=== PATIENT | male | born 1935 | race Caucasian/White ===

== ENCOUNTER 2022-12-05 11:14 | Outpatient (RCR) | payer MEDICARE, SELFPAY | END 2023-01-15 13:57 | disposition home or self-care (01) | LOC: PT 11:14 | PROVIDERS: PCP Internal Medicine; Visit Provider Anesthesiology Pain Medicine | DX: M48.062 Spinal stenosis, lumbar region with neurogenic claudication (principal) | CPT/HCPCS: 97110 ==

== ENCOUNTER 2023-01-17 11:54 | Outpatient (OUT) | payer MEDICARE, SELFPAY ==
--- NOTE | 2023-01-17 12:23 | PM.CN ---
Consult Note: HPI Data of Consult Patient: known to practice within the last 3 years Consult date: 01/17/23 Requesting Physician: JARED FLORES NP Primary Care Provider: Shaikh Lexi MD Consult Narrative Narrative: Patient is here for f/u of back pain. narcotic was switched from norco to tylenol [address] Blank 01/08/23. He states it is wearing off before next dose is due. Can increase dosing to QID. He was scheduled for LESI L3 4 at last visit. Facility was not informed he was on Plavix and unable to hold Plavix, so when med was discovered, procedure was cancelled. He has had significant relief of pain with LESI in the past. Pain today is lower back worse with activity and standing . He had lumbar RFA bilat L2,3,4,5 10/30/21 with significant relief of pain and increased fx. No radicular sx. No new sensorimotor or bowel or bladder issues. No adverse medication SE. Medication regimen assists patient with being better able to complete ADLs. He was doing PT at last visit. cc:: CC: JARED FLORES NP Review of Systems ROS Status of ROS 10 or more systems reviewed and unremarkable except as noted in history and below Musculoskeletal Reports: back pain Meds Home Medications and Allergies Home Medications Medication Instructions Recorded Confirmed Type acetaminophen 325 mg capsule 325 mg PO Q6H PRN pain 12/27/22 History albuterol sulfate 90 mcg/actuation 1 inh inhalation Q4H PRN shortness 12/27/22 History aerosol inhaler (ProAir HFA) of breath or wheezing allopurinol 300 mg tablet 300 mg PO .QD 12/27/22 History cholecalciferol (vitamin D3) 25 25 mcg PO DAILY 12/27/22 History mcg (1,000 unit) capsule (Vitamin D3) hydrocodone 5 mg-acetaminophen 325 tab PO QID PRN pain 12/27/22 History mg tablet levothyroxine 50 mcg tablet 50 mcg PO .QD 12/27/22 History nitroglycerin 0.4 mg sublingual 0.4 mg sublingual Q5M PRN chest 12/27/22 History tablet (Nitrostat) pain potassium chloride 20 mEq 10 meq PO DAILY 12/27/22 01/10/23 History tablet,extended release (K-Tab) witch letitia-glycerin (hamamel) 1 pad topical DAILY PRN hemorrhoids 12/27/22 History topical pads (Hemorrhoidal Medicated topical pads) Lactobacillus rhamnosus GG 10 1 cap PO DAILY 01/09/23 01/09/23 History billion cell capsule (Culturelle) aspirin 81 mg capsule 81 mg PO DAILY 01/09/23 01/09/23 History calcium carbonate 500 mg calcium 500 mg PO TID 01/09/23 01/09/23 History (1,250 mg) tablet clopidogrel 75 mg tablet (Plavix) 75 mg PO DAILY 01/09/23 01/09/23 History diltiazem HCl 180 mg 180 mg PO DAILY 01/09/23 01/09/23 History capsule,extended release 24 hr donepezil 10 mg tablet (Aricept) 10 mg PO DAILY 01/09/23 01/09/23 History dorzolamide-timolol (PF) 2 %-0.5 % 1 drp ophthalmic (eye) BID 01/09/23 01/09/23 History eye drops in a dropperette famotidine 20 mg tablet 20 mg PO DAILY 01/09/23 01/09/23 History ferrous sulfate 325 mg (65 mg 325 mg PO TID 01/09/23 01/09/23 History iron) tablet fluticasone propionate 50 1 spray intranasal DAILY PRN nasal 01/09/23 01/09/23 History mcg/actuation nasal congestion spray,suspension (Flonase Allergy Relief) furosemide 20 mg tablet 20 mg PO QAM 01/09/23 01/09/23 History hydrocortisone 2.5 % topical cream 1 applic topical TID PRN itching 01/09/23 01/09/23 History losartan 100 mg tablet 100 mg PO DAILY 01/09/23 01/09/23 History magnesium oxide,aspartate,citr mg PO 01/09/23 History metoprolol tartrate 25 mg tablet 25 mg PO BID 01/09/23 01/09/23 History bvsroqcc-xcq-yvszx acid 300 1 tab PO DAILY 01/09/23 01/09/23 History mcg-lycopene 600 mcg-lutein 300 mcg tablet (Centrum Silver Men) pregabalin 75 mg capsule (Lyrica) 75 mg PO TID 01/09/23 01/09/23 History psyllium husk 0.4 gram capsule 0.4 g PO DAILY 01/09/23 01/09/23 History (Metamucil) tamsulosin 0.4 mg capsule (Flomax) 0.4 mg PO DAILY 01/09/23 01/09/23 History amlodipine 5 mg tablet 5 mg PO DAILY 01/10/23 01/10/23 History atorvastatin 20 mg tablet 20 mg PO DAILY 01/10/23 01/10/23 History baclofen 10 mg tablet 10 mg PO TID PRN muscle spasm 01/10/23 01/10/23 History cholecalciferol (vitamin D3) 25 1,000 unit PO DAILY 01/10/23 01/10/23 History mcg (1,000 unit) capsule (Vitamin D3) ondansetron HCl 4 mg tablet 4 mg PO TID 01/10/23 01/10/23 History Allergies Allergy/AdvReac Type Severity Reaction Status Date / Time tizanidine [From Zanaflex] Allergy Unknown Verified 12/27/22 09:08 acetaminophen [From Percocet] AdvReac Mild Vomiting Verified 12/27/22 09:10 cyclobenzaprine AdvReac Mild Hallucinati Verified 12/27/22 09:10 [From Flexeril] ng oxycodone [From Percocet] AdvReac Mild Vomiting Verified 12/27/22 09:10 tramadol AdvReac Mild Vomiting Verified 12/27/22 09:10 Exam Constitutional Documenting provider has reviewed patient's vital signs: yes Common normals: no apparent distress, average body habitus, oriented x3, alert and well nourished General appearance: cooperative, comfortable, well developed and frail appearing Other: uses scooter HENMT Common normals: normocephalic and moist oral mucous membranes Respiratory Common normals: normal respiratory effort, no retractions and no use of accessory muscles Effort & inspection: able to speak in complete sentences and symmetric chest movement Back & Pelvis Lumbar spine/lower back: ROM limited, pain with ROM, lumbar spinal tenderness, paraspinal muscle tenderness, paraspinal muscle spasm and straight leg raise negative bilaterally Other: muscle strength 4 /5 bilat LE with intact sensation positive facet loading bilat Extremity Common normals: normal to inspection and full ROM Assessment and Plan Assessment and Plan (1) Lumbar spondylosis: (2) Lumbar stenosis: (3) Muscle spasm: Plan schedule bilat thermal lumbar RFA L2 L3 L4 l5 under fluoroscopy increase t#3 dosing to 4 times a day baclofen refill extend PT
== END 2023-01-17 11:55 | disposition home or self-care (01) ==
LOC: PM 12:19
PROVIDERS: PCP Internal Medicine; Visit Provider Nurse Practitioner
DX: M47.816 Spondylosis without myelopathy or radiculopathy, lumbar region (principal); M48.061 Spinal stenosis, lumbar region without neurogenic claudication; M62.838 Other muscle spasm
CPT/HCPCS: G0463

== ENCOUNTER 2023-02-03 08:43 | Day surgery (SDC) | payer MEDICARE, SELFPAY ==
[2023-02-03 09:27] VITALS: BP 136/86; PULSE 68; RESP 16; TEMP 36.4; O2SAT 97
[2023-02-03 09:40] LABS: Glucometer 214 mg/dL (74-106)
[2023-02-03] MEDS: TRIAMCINOLONE ACETONIDE 40 MG/ML VIAL 80 MG INJ (10:08)
[2023-02-03] MEDS: LIDOCAINE HCL 2% PF 40 MG/2 ML VIAL INJ (10:09)
[2023-02-03] MEDS: BUPIVACAINE HCL 0.25% PF 25 MG/10 ML VIAL 5 ML INJ (10:09)
[2023-02-03 10:16] VITALS: BP 120/81; BP 123/77; PULSE 66; PULSE 68; RESP 18; O2SAT 94; O2SAT 95
--- NOTE | 2023-02-03 10:21 | P.ON_ITS ---
Date of procedure: 02/03/23 Pre-op diagnosis: Lumbosacral spondylosis Post-op diagnosis: same Procedure: Procedure: L2-3, L3-4 radiofrequency ablation Medications: Bupivacaine 0.25% 6cc, kenalog 80mg, lidocaine 1% 4cc The patient was seen and examined in the preoperative holding area.? The site was marked.? Written informed consent was obtained and placed on the chart.? The patient was brought to the medical procedure unit and placed in the prone position.? A timeout was completed verifying correct patient, procedure, positioning, and special requirements.? The skin overlying the target points, the designated medial branch, were prepped and draped in the usual sterile fa shion.? The target point was achieved with a 20-gauge 15 cm with a 10 mm curved active tip radiofrequency cannula under direct fluoroscopic visualization.? The needle was inserted at level L2 on the right side. Needle tip position was confirmed with lateral fluoroscopic position.? Motor stimulation was carried out at 2 Hz up to 5 volts with the absence of extremity activity.? This was repeated at level L3, 4 on right side.?? Sensory stimulation was carried out.? Concordant pain was realized at the above- mentioned sites.? Then radiofrequency lesioning was carried out times 90 seconds at 80 degrees times 2 lesions at each level.? The radiofrequency probe was removed prior to cannula removal.? The above-mentioned injectate was placed in 1 mL increments.? The needle was removed. The same procedure, with the same steps, was then completed on the left side at the same levels. Insertion sites were covered.? The patient was taken to the postoperative recovery area and monitored for an appropriate length of time before being found suitable for discharge in the company of a responsible adult. Anesthesia: None Surgeon: Mallorie Joy Pathology: none sent Condition: stable Disposition: no change
== END 2023-02-03 10:31 | disposition home or self-care (01) ==
PROVIDERS: PCP Internal Medicine; Visit Provider Anesthesiology
DX: M47.817 Spondylosis without myelopathy or radiculopathy, lumbosacral region (principal)
CPT/HCPCS: 36415; 64635; 64636; 82948

== ENCOUNTER 2023-02-05 18:41 | Emergency (ER) | payer MEDICARE, SELFPAY ==
[2023-02-05] VITALS (19 sets, daily range): BP systolic 163; BP diastolic 92; PULSE 68–87; RESP 13–26; O2SAT 94–98; BMI 25.8
--- NOTE | 2023-02-05 18:52 | ED_ITS ---
Documented by User: CHIVO Yeboah 02/05/23 21:52 HPI - Abdominal Pain General Chief Complaint: Abdominal Pain Stated Complaint: NAUSEA / VOMITING Time Seen by Provider: 02/05/23 18:51 Source: patient and family Mode of arrival: Wheelchair Limitations: no limitations History of Present Illness HPI narrative: patient is an 87-year-old male who presents to the emergency department for the evaluation of nausea and vomiting as well as abdominal pain that began today. Patient has a history of chronic back pain and had an ablation performed last week. patient has had a previous hernia surgery, no other abdominal surgeries that he can remember. He denies fevers. He has had no diarrhea. He had a normal bowel movement yesterday. He denies any urinary symptoms. He has a history of chronic leaking bladder. He took baking soda prior to arrival because he thought that may make his belly feel better. He reports diffuse pain from his throat down through his entire abdomen. He denies any cough or congestion. No flank or back pain. Related Data Home Medications Medication Instructions Recorded Confirmed acetaminophen 325 mg capsule 325 mg PO Q6H PRN pain 12/27/22 02/03/23 albuterol sulfate 90 mcg/actuation 1 inh inhalation Q4H PRN shortness 12/27/22 02/03/23 aerosol inhaler (ProAir HFA) of breath or wheezing allopurinol 300 mg tablet 300 mg PO .QD 12/27/22 02/03/23 cholecalciferol (vitamin D3) 25 25 mcg PO DAILY 12/27/22 02/03/23 mcg (1,000 unit) capsule (Vitamin D3) levothyroxine 50 mcg tablet 50 mcg PO .QD 12/27/22 02/03/23 nitroglycerin 0.4 mg sublingual 0.4 mg sublingual Q5M PRN chest 12/27/22 02/03/23 tablet (Nitrostat) pain potassium chloride 20 mEq 10 meq PO DAILY 12/27/22 02/03/23 tablet,extended release (K-Tab) witch letitia-glycerin (hamamel) 1 pad topical DAILY PRN hemorrhoids 12/27/22 02/03/23 topical pads (Hemorrhoidal Medicated topical pads) Lactobacillus rhamnosus GG 10 1 cap PO DAILY 01/09/23 02/03/23 billion cell capsule (Culturelle) aspirin 81 mg capsule 81 mg PO DAILY 01/09/23 02/03/23 calcium carbonate 500 mg calcium 500 mg PO TID 01/09/23 02/03/23 (1,250 mg) tablet clopidogrel 75 mg tablet (Plavix) 75 mg PO DAILY 01/09/23 02/03/23 diltiazem HCl 180 mg 180 mg PO DAILY 01/09/23 02/03/23 capsule,extended release 24 hr donepezil 10 mg tablet (Aricept) 10 mg PO DAILY 01/09/23 02/03/23 dorzolamide-timolol (PF) 2 %-0.5 % 1 drp ophthalmic (eye) BID 01/09/23 02/03/23 eye drops in a dropperette famotidine 20 mg tablet 20 mg PO DAILY 01/09/23 02/03/23 ferrous sulfate 325 mg (65 mg 325 mg PO TID 01/09/23 02/03/23 iron) tablet fluticasone propionate 50 1 spray intranasal DAILY PRN nasal 01/09/23 02/03/23 mcg/actuation nasal congestion spray,suspension (Flonase Allergy Relief) furosemide 20 mg tablet 20 mg PO QAM 01/09/23 02/03/23 hydrocortisone 2.5 % topical cream 1 applic topical TID PRN itching 01/09/23 02/03/23 losartan 100 mg tablet 100 mg PO DAILY 01/09/23 02/03/23 magnesium oxide,aspartate,citr mg PO 01/09/23 metoprolol tartrate 25 mg tablet 25 mg PO BID 01/09/23 02/03/23 [id number] 300 mcg-K 60 1 tab PO DAILY 01/09/23 02/03/23 mcg-lycop 600 mcg-lutein 300 mcg tablet (Centrum Silver Men) pregabalin 75 mg capsule (Lyrica) 75 mg PO TID 01/09/23 02/03/23 psyllium husk 0.4 gram capsule 0.4 g PO DAILY 01/09/23 02/03/23 (Metamucil) tamsulosin 0.4 mg capsule (Flomax) 0.4 mg PO DAILY 01/09/23 02/03/23 amlodipine 5 mg tablet 5 mg PO DAILY 01/10/23 02/03/23 atorvastatin 20 mg tablet 20 mg PO DAILY 01/10/23 02/03/23 baclofen 10 mg tablet 10 mg PO TID PRN muscle spasm 01/10/23 02/03/23 cholecalciferol (vitamin D3) 25 1,000 unit PO DAILY 01/10/23 02/03/23 mcg (1,000 unit) capsule (Vitamin D3) ondansetron HCl 4 mg tablet 4 mg PO TID 01/10/23 02/03/23 acetaminophen 300 mg-codeine 30 mg 1 tab PO QID 01/17/23 02/03/23 tablet diazepam 5 mg tablet mg 02/03/23 Previous Rx's Medication Instructions Recorded ondansetron 4 mg disintegrating 4 mg PO Q6H PRN nausea and 02/05/23 tablet vomiting #12 tabs pantoprazole 40 mg tablet,delayed 40 mg PO DAILY #7 tabs 02/05/23 release (Protonix) sucralfate 1 gram tablet (Carafate) 1 g PO Q6H PRN abdominal pain #12 02/05/23 tabs Allergies Allergy/AdvReac Type Severity Reaction Status Date / Time tizanidine [From Zanaflex] Allergy Unknown Verified 02/03/23 09:23 acetaminophen [From Percocet] AdvReac Mild Vomiting Verified 02/03/23 09:23 cyclobenzaprine AdvReac Mild Hallucinati Verified 02/03/23 09:23 [From Flexeril] ng oxycodone [From Percocet] AdvReac Mild Vomiting Verified 02/03/23 09:23 tramadol AdvReac Mild Vomiting Verified 02/03/23 09:23 Review of Systems ROS Constitutional Denies: fever or chills Ears, nose, mouth, and throat Denies: throat pain or neck pain Cardiovascular Denies: chest pain or palpitations Respiratory Denies: shortness of breath or cough Gastrointestinal Reports: abdominal pain, nausea and vomiting; Denies: diarrhea Genitourinary Reports: urinary dribbling; Denies: painful urination Musculoskeletal Reports: back pain; Denies: neck pain Integumentary/Breast Denies: rash Neurological Denies: headache Endocrine Denies: excessive urination [facility] Medical History (Updated 02/05/23 @ 21:50 by CHIVO Yeboah) Surgical History (Updated 01/23/23 @ 15:32 by Betsy Brewer) Social History Smoking status: Never smoker Exam Narrative Exam Narrative: Gen.: Awake, alert, in no distress Head: Normocephalic, atraumatic ENT: Moist mucous membranes Respiratory: No respiratory distress, lungs clear bilaterally Cardio: Regular rate and rhythm Gastrointestinal: Abdomen is soft, nondistended and nontender to palpation Extremities: Moves extremities equally, no injuries noted Psych: Normal mood and affect Neuro: No focal neuro deficit Skin: Warm, dry, intact Constitutional Vital Signs, click to edit/add: Last Vital Signs Pulse 73 02/05/23 21:40 Resp 14 02/05/23 21:40 BP 163/92 H 02/05/23 18:47 Pulse Ox 96 02/05/23 20:50 O2 Del Method Room Air 02/05/23 18:53 Course Vital Signs Vital signs: Vital Signs Pulse Rate 68 02/05/23 18:47 Respiratory Rate 16 02/05/23 18:47 Blood Pressure 163/92 H 02/05/23 18:47 Pulse Oximetry 96 02/05/23 18:47 Oxygen Delivery Method Room Air 02/05/23 18:47 Pulse Rate 73 02/05/23 21:40 Respiratory Rate 14 02/05/23 21:40 Blood Pressure 163/92 H 02/05/23 18:47 Pulse Oximetry 96 02/05/23 20:50 Oxygen Delivery Method Room Air 02/05/23 18:53 MDM - Abdominal Pain MDM Narrative Medical decision making narrative: patient treated with IV fluids, morphine, Zofran, Pepcid with improvement. He tolerated ice chips in the Emergency Room and reports feeling better. Lab studies show elevated lactic acid but patient has no pain out of proportion on exam to the concerning for mesenteric ischemia. CT of the abdomen and pelvis with IV contrast shows esophageal wall thickening consistent with esophagitis. This is consistent with the patient's clinical history. patient was reevaluated by attending physician, repeat lactic acid is stable but not worsening. Patient was offered admission for IV fluids and antiemetics. He reports feeling well enough that he would like to go home. Patient will be started on Zofran, Carafate, Protonix for home. Return to the Emergency Room if symptoms change or worsen. Vital signs are stable in the Emergency Room, abdomen is soft and benign on recheck by attending physician at discharge. Medical Records Attestation: I reviewed the patient's medical records. Lab Data Attestation: I reviewed the patient's lab results. Labs: Lab Results 02/05/23 02/05/23 Range/Units 19:00 21:11 WBC 11.0 (4.0-11.0) 10^3/uL RBC 5.72 (4.70-6.10) 10^6/uL Hgb 17.5 (14.0-18.0) g/dL Hct 51.2 (42.0-54.0) % MCV 89.5 (80.0-94.0) fL MCH 30.6 (25.9-34.0) pg MCHC 34.2 (29.9-35.2) g/dL RDW 13.8 (11.0-15.0) % Plt Count 174 (150-450) 10^3/uL MPV 10.4 (9.5-13.5) fL Neut % (Auto) 84.3 H (43.0-75.0) % Lymph % (Auto) 4.6 L (20.5-60.0) % [place] % (Auto) 10.5 (1.7-12.0) % Eos % (Auto) 0.0 L (0.9-7.0) % Baso % (Auto) 0.2 (0.2-2.0) % Neut # (Auto) 9.3 H (1.4-6.5) 10^3/uL Lymph # (Auto) 0.5 L (1.2-3.8) 10^3/uL [place] # (Auto) 1.2 H (0.3-0.8) 10^3/uL Eos # (Auto) 0.0 (0.0-0.7) 10^3/uL Baso # (Auto) 0.0 (0.0-0.1) 10^3/uL Abs Immat Gran (auto) 0.04 H (0.00-0.03) 10^3/uL Imm/Tot Granulo (auto) 0.4 (0.0-0.5) % Sodium 137 (136-145) mmol/L Potassium 4.0 (3.5-5.1) mmol/L Chloride 99 (98-107) mmol/L Carbon Dioxide 28.2 (21.0-32.0) mmol/L Anion Gap 13.8 BUN 45.0 H (7.0-18.0) mg/dL Creatinine 1.49 H (0.70-1.30) mg/dL Est GFR ( Amer) 54 L (>=60) Est GFR (Non-Af Amer) 45 L (>=60) BUN/Creatinine Ratio 30.2 Glucose 271 H (74-106) mg/dL Lactate 2.8 H* 2.8 H* (0.4-2.0) mmol/L Calcium 9.2 (8.5-10.1) mg/dL Total Bilirubin 0.5 (0.2-1.0) mg/dL AST 18 (15-37) U/L ALT 52 (16-63) U/L Alkaline Phosphatase 68 (46-116) U/L Troponin I High Sens 9.2 (4.0-76.1) pg/mL Total Protein 7.6 (6.4-8.2) g/dL Albumin 4.3 (3.4-5.0) g/dL Globulin 3.3 g/dL Albumin/Globulin Ratio 1.3 Lipase 211.0 (73.0-393.0) U/L Imaging Data CT scan - abdomen: Attestation: I have reviewed the pertinent imaging results. Radiologist's impression: Procedure: CT abdomen pelvis w con EXAM: CT scan of the abdomen and pelvis using 100 mL of IV iodinated contrast. Dose reduction technique used: Automated exposure control and/or adjustment of the mA and/or kV according to patient size and/or use of iterative reconstruction technique. REASON FOR EXAM: Abdominal pain, vomiting COMPARISON: CT scan dated 11/27/2022 FINDINGS: Distal esophageal wall thickening. Moderate gastric distention. Multiple bilateral renal cysts. 2.1 x 1.6 cm hypoenhancing hepatic dome lesion. Colonic diverticulosis. Small fat-containing ventral hernia. Prostate brachytherapy. L3-L4 spinal canal stenosis is likely severe. Grade 1 retrolisthesis of L3 on L4. Negative appendix. No free fluid in the abdomen or pelvis. No free intraperitoneal air. No dilated or thickened loops of small bowel or colon. No hydronephrosis or obstructing renal or ureteral calculi. Liver, pancreas, spleen, bilateral kidneys, and bilateral adrenal glands are otherwise unremarkable. No lymphadenopathy in the abdomen or pelvis. Remainder unremarkable. IMPRESSION: 1. Esophageal wall thickening may represent esophagitis although malignancy cannot be excluded, correlate clinically. 2. Moderate gastric distention. 3. Indeterminate hepatic dome lesion. Consider further evaluation with MRI on a nonemergent basis. 4. L3-L4 spinal canal stenosis is likely severe. Electronically authenticated by: CONNIE PETERSON Date: 02/05/2023 20:52 Chest x-ray: Attestation: I have reviewed the pertinent imaging results. Radiologist's impression: Procedure: XR chest 1V Exam: Radiographs: XR chest 1V Reason for exam: Nausea and vomiting Comparison: Chest x-ray dated 02/02/2022 IMPRESSION: Negative chest. Electronically authenticated by: CONNIE PETERSON Date: 02/05/2023 20:53 ECG Data Attestation: I personally reviewed and interpreted this ECG as follows: (normal sinus rhythm at a rate of seventy-five, right bundle branch block with no acute ST elevation or ectopy. EKG reviewed by attending physician.) ECG interpretation date: 02/05/23 ECG interpretation time: 19:03 Discharge Plan Discharge Chief Complaint: Abdominal Pain Clinical Impression: Esophagitis, Nausea & vomiting, Abdominal pain Patient Disposition: Home, Self-Care Time of Disposition Decision: 21:49 Condition: Good Prescriptions / Home Meds: New sucralfate [Carafate] 1 gram tablet 1 g PO Q6H PRN (Reason: abdominal pain) Qty: 12 0RF pantoprazole [Protonix] 40 mg tablet,delayed release (DR/EC) 40 mg PO DAILY Qty: 7 0RF ondansetron 4 mg tablet,disintegrating 4 mg PO Q6H PRN (Reason: nausea and vomiting) Qty: 12 0RF No Action donepezil [Aricept] 10 mg tablet 10 mg PO DAILY aspirin 81 mg capsule 81 mg PO DAILY calcium carbonate 500 mg calcium (1,250 mg) tablet 500 mg PO TID Centrum Silver Men 300-600-300 mcg tablet 1 tab PO DAILY Culturelle 10 billion cell capsule 1 cap PO DAILY diltiazem HCl 180 mg capsule,extended release 24hr 180 mg PO DAILY dorzolamide-timolol (PF) 2-0.5 % dropperette 1 drp ophthalmic (eye) BID ferrous sulfate 325 mg (65 mg iron) tablet 325 mg PO TID famotidine 20 mg tablet 20 mg PO DAILY tamsulosin [Flomax] 0.4 mg capsule 0.4 mg PO DAILY fluticasone propionate [Flonase Allergy Relief] 50 mcg/actuation spray,suspension 1 spray intranasal DAILY PRN (Reason: nasal congestion) Rx Instructions: administer into each nostril furosemide 20 mg tablet 20 mg PO QAM hydrocortisone 2.5 % cream 1 applic topical TID PRN (Reason: itching) losartan 100 mg tablet 100 mg PO DAILY clopidogrel [Plavix] 75 mg tablet 75 mg PO DAILY pregabalin [Lyrica] 75 mg capsule 75 mg PO TID magnesium oxide,aspartate,citr 400 mg magnesium capsule PO psyllium husk [Metamucil] 0.4 gram capsule 0.4 g PO DAILY metoprolol tartrate 25 mg tablet 25 mg PO BID cholecalciferol (vitamin D3) [Vitamin D3] 25 mcg (1,000 unit) capsule 1,000 unit PO DAILY ondansetron HCl 4 mg tablet 4 mg PO TID amlodipine 5 mg tablet 5 mg PO DAILY atorvastatin 20 mg tablet 20 mg PO DAILY baclofen 10 mg tablet 10 mg PO TID PRN (Reason: muscle spasm) acetaminophen-codeine 300-30 mg tablet 1 tab PO QID diazepam 5 mg tablet acetaminophen 325 mg capsule 325 mg PO Q6H PRN (Reason: pain) allopurinol 300 mg tablet 300 mg PO .QD levothyroxine 50 mcg tablet 50 mcg PO .QD cholecalciferol (vitamin D3) [Vitamin D3] 25 mcg (1,000 unit) capsule 25 mcg PO DAILY Hemorrhoidal Medicated Pads, Medicated 1 pad topical DAILY PRN (Reason: hemorrhoids) albuterol sulfate [ProAir HFA] 90 mcg/actuation HFA aerosol inhaler 1 inh inhalation Q4H PRN (Reason: shortness of breath or wheezing) potassium chloride [K-Tab] 20 mEq tablet extended release 10 meq PO DAILY nitroglycerin [Nitrostat] 0.4 mg tablet, sublingual 0.4 mg sublingual Q5M PRN (Reason: chest pain) Rx Instructions: do not exceed 3 doses per episode Instructions: Acute Nausea and Vomiting (DC), Acute Abdominal Pain (ED), Esophagitis (ED) Stand Alone Forms: Portal Instructions Referrals: Shaikh Elliott MD [Primary Care Provider] - 1 week Discharge Date/Time: 02/05/23 22:12 Documented by User: Lowell Hess MD 02/07/23 20:51 HPI - Abdominal Pain General Chief Complaint: Abdominal Pain Stated Complaint: NAUSEA / VOMITING Time Seen by Provider: 02/05/23 18:51 Related Data Home Medications Medication Instructions Recorded Confirmed acetaminophen 325 mg capsule 325 mg PO Q6H PRN pain 12/27/22 02/03/23 albuterol sulfate 90 mcg/actuation 1 inh inhalation Q4H PRN shortness 12/27/22 02/03/23 aerosol inhaler (ProAir HFA) of breath or wheezing allopurinol 300 mg tablet 300 mg PO .QD 12/27/22 02/03/23 cholecalciferol (vitamin D3) 25 25 mcg PO DAILY 12/27/22 02/03/23 mcg (1,000 unit) capsule (Vitamin D3) levothyroxine 50 mcg tablet 50 mcg PO .QD 12/27/22 02/03/23 nitroglycerin 0.4 mg sublingual 0.4 mg sublingual Q5M PRN chest 12/27/22 3 tablet (Nitrostat) pain potassium chloride 20 mEq 10 meq PO DAILY 12/27/22 02/03/23 tablet,extended release (K-Tab) witch letitia-glycerin (hamamel) 1 pad topical DAILY PRN hemorrhoids 12/27/22 02/03/23 topical pads (Hemorrhoidal Medicated topical pads) Lactobacillus rhamnosus GG 10 1 cap PO DAILY 01/09/23 02/03/23 billion cell capsule (Culturelle) aspirin 81 mg capsule 81 mg PO DAILY 01/09/23 02/03/23 calcium carbonate 500 mg calcium 500 mg PO TID 01/09/23 02/03/23 (1,250 mg) tablet clopidogrel 75 mg tablet (Plavix) 75 mg PO DAILY 01/09/23 02/03/23 diltiazem HCl 180 mg 180 mg PO DAILY 01/09/23 02/03/23 capsule,extended release 24 hr donepezil 10 mg tablet (Aricept) 10 mg PO DAILY 01/09/23 02/03/23 dorzolamide-timolol (PF) 2 %-0.5 % 1 drp ophthalmic (eye) BID 01/09/23 02/03/23 eye drops in a dropperette famotidine 20 mg tablet 20 mg PO DAILY 01/09/23 02/03/23 ferrous sulfate 325 mg (65 mg 325 mg PO TID 01/09/23 02/03/23 iron) tablet fluticasone propionate 50 1 spray intranasal DAILY PRN nasal 01/09/23 02/03/23 mcg/actuation nasal congestion spray,suspension (Flonase Allergy Relief) furosemide 20 mg tablet 20 mg PO QAM 01/09/23 02/03/23 hydrocortisone 2.5 % topical cream 1 applic topical TID PRN itching 01/09/23 02/03/23 losartan 100 mg tablet 100 mg PO DAILY 01/09/23 02/03/23 magnesium oxide,aspartate,citr mg PO 01/09/23 metoprolol tartrate 25 mg tablet 25 mg PO BID 01/09/23 02/03/23 [id number] 300 mcg-K 60 1 tab PO DAILY 01/09/23 02/03/23 mcg-lycop 600 mcg-lutein 300 mcg tablet (Centrum Silver Men) pregabalin 75 mg capsule (Lyrica) 75 mg PO TID 01/09/23 02/03/23 psyllium husk 0.4 gram capsule 0.4 g PO DAILY 01/09/23 02/03/23 (Metamucil) tamsulosin 0.4 mg capsule (Flomax) 0.4 mg PO DAILY 01/09/23 02/03/23 amlodipine 5 mg tablet 5 mg PO DAILY 01/10/23 02/03/23 atorvastatin 20 mg tablet 20 mg PO DAILY 01/10/23 02/03/23 baclofen 10 mg tablet 10 mg PO TID PRN muscle spasm 01/10/23 02/03/23 cholecalciferol (vitamin D3) 25 1,000 unit PO DAILY 01/10/23 02/03/23 mcg (1,000 unit) capsule (Vitamin D3) ondansetron HCl 4 mg tablet 4 mg PO TID 01/10/23 02/03/23 acetaminophen 300 mg-codeine 30 mg 1 tab PO QID 01/17/23 02/03/23 tablet diazepam 5 mg tablet mg 02/03/23 Previous Rx's Medication Instructions Recorded ondansetron 4 mg disintegrating 4 mg PO Q6H PRN nausea and 02/05/23 tablet vomiting #12 tabs pantoprazole 40 mg tablet,delayed 40 mg PO DAILY #7 tabs 02/05/23 release (Protonix) sucralfate 1 gram tablet (Carafate) 1 g PO Q6H PRN abdominal pain #12 02/05/23 tabs Allergies Allergy/AdvReac Type Severity Reaction Status Date / Time tizanidine [From Zanaflex] Allergy Unknown Verified 02/03/23 09:23 acetaminophen [From Percocet] AdvReac Mild Vomiting Verified 02/03/23 09:23 cyclobenzaprine AdvReac Mild Hallucinati Verified 02/03/23 09:23 [From Flexeril] ng oxycodone [From Percocet] AdvReac Mild Vomiting Verified 02/03/23 09:23 tramadol AdvReac Mild Vomiting Verified 02/03/23 09:23 [facility] Medical History (Updated 02/05/23 @ 21:50 by CHIVO Yeboah) Surgical History (Updated 01/23/23 @ 15:32 by Betsy Brewer) Social History Smoking status: Never smoker Exam Constitutional Vital Signs, click to edit/add: Last Vital Signs Pulse 73 02/05/23 21:40 Resp 14 02/05/23 21:40 BP 163/92 H 02/05/23 18:47 Pulse Ox 96 02/05/23 20:50 O2 Del Method Room Air 02/05/23 18:53 Course Vital Signs Vital signs: Vital Signs Pulse Rate 68 02/05/23 18:47 Respiratory Rate 16 02/05/23 18:47 Blood Pressure 163/92 H 02/05/23 18:47 Pulse Oximetry 96 02/05/23 18:47 Oxygen Delivery Method Room Air 02/05/23 18:47 Pulse Rate 73 02/05/23 21:40 Respiratory Rate 14 02/05/23 21:40 Blood Pressure 163/92 H 02/05/23 18:47 Pulse Oximetry 96 02/05/23 20:50 Oxygen Delivery Method Room Air 02/05/23 18:53 MDM - Abdominal Pain MDM Narrative Medical decision making narrative: patient treated with IV fluids, morphine, Zofran, Pepcid with improvement. He tolerated ice chips in the Emergency Room and reports feeling better. Lab studies show elevated lactic acid but patient has no pain out of proportion on exam to the concerning for mesenteric ischemia. CT of the abdomen and pelvis with IV contrast shows esophageal wall thickening consistent with esophagitis. This is consistent with the patient's clinical history. patient was reevaluated by attending physician, repeat lactic acid is stable but not worsening. Patient was offered admission for IV fluids and antiemetics. He reports feeling well enough that he would like to go home. Patient will be started on Zofran, Carafate, Protonix for home. Return to the Emergency Room if symptoms change or worsen. Vital signs are stable in the Emergency Room, abdomen is soft and benign on recheck by attending physician at discharge. Patient was seen and evaluated by Kalyani Ford, not Dr. Hess. Lab Data Labs: Lab Results 02/05/23 02/05/23 Range/Units 19:00 21:11 WBC 11.0 (4.0-11.0) 10^3/uL RBC 5.72 (4.70-6.10) 10^6/uL Hgb 17.5 (14.0-18.0) g/dL Hct 51.2 (42.0-54.0) % MCV 89.5 (80.0-94.0) fL MCH 30.6 (25.9-34.0) pg MCHC 34.2 (29.9-35.2) g/dL RDW 13.8 (11.0-15.0) % Plt Count 174 (150-450) 10^3/uL MPV 10.4 (9.5-13.5) fL Neut % (Auto) 84.3 H (43.0-75.0) % Lymph % (Auto) 4.6 L (20.5-60.0) % [place] % (Auto) 10.5 (1.7-12.0) % Eos % (Auto) 0.0 L (0.9-7.0) % Baso % (Auto) 0.2 (0.2-2.0) % Neut # (Auto) 9.3 H (1.4-6.5) 10^3/uL Lymph # (Auto) 0.5 L (1.2-3.8) 10^3/uL [place] # (Auto) 1.2 H (0.3-0.8) 10^3/uL Eos # (Auto) 0.0 (0.0-0.7) 10^3/uL Baso # (Auto) 0.0 (0.0-0.1) 10^3/uL Abs Immat Gran (auto) 0.04 H (0.00-0.03) 10^3/uL Imm/Tot Granulo (auto) 0.4 (0.0-0.5) % Sodium 137 (136-145) mmol/L Potassium 4.0 (3.5-5.1) mmol/L Chloride 99 (98-107) mmol/L Carbon Dioxide 28.2 (21.0-32.0) mmol/L Anion Gap 13.8 BUN 45.0 H (7.0-18.0) mg/dL Creatinine 1.49 H (0.70-1.30) mg/dL Est GFR ( Amer) 54 L (>=60) Est GFR (Non-Af Amer) 45 L (>=60) BUN/Creatinine Ratio 30.2 Glucose 271 H (74-106) mg/dL Lactate 2.8 H* 2.8 H* (0.4-2.0) mmol/L Calcium 9.2 (8.5-10.1) mg/dL Total Bilirubin 0.5 (0.2-1.0) mg/dL AST 18 (15-37) U/L ALT 52 (16-63) U/L Alkaline Phosphatase 68 (46-116) U/L Troponin I High Sens 9.2 (4.0-76.1) pg/mL Total Protein 7.6 (6.4-8.2) g/dL Albumin 4.3 (3.4-5.0) g/dL Globulin 3.3 g/dL Albumin/Globulin Ratio 1.3 Lipase 211.0 (73.0-393.0) U/L Discharge Plan Discharge Chief Complaint: Abdominal Pain Clinical Impression: Esophagitis, Nausea & vomiting, Abdominal pain Patient Disposition: Home, Self-Care Time of Disposition Decision: 21:49 Condition: Good Prescriptions / Home Meds: New sucralfate [Carafate] 1 gram tablet 1 g PO Q6H PRN (Reason: abdominal pain) Qty: 12 0RF pantoprazole [Protonix] 40 mg tablet,delayed release (DR/EC) 40 mg PO DAILY Qty: 7 0RF ondansetron 4 mg tablet,disintegrating 4 mg PO Q6H PRN (Reason: nausea and vomiting) Qty: 12 0RF No Action donepezil [Aricept] 10 mg tablet 10 mg PO DAILY aspirin 81 mg capsule 81 mg PO DAILY calcium carbonate 500 mg calcium (1,250 mg) tablet 500 mg PO TID Centrum Silver Men 300-600-300 mcg tablet 1 tab PO DAILY Culturelle 10 billion cell capsule 1 cap PO DAILY diltiazem HCl 180 mg capsule,extended release 24hr 180 mg PO DAILY dorzolamide-timolol (PF) 2-0.5 % dropperette 1 drp ophthalmic (eye) BID ferrous sulfate 325 mg (65 mg iron) tablet 325 mg PO TID famotidine 20 mg tablet 20 mg PO DAILY tamsulosin [Flomax] 0.4 mg capsule 0.4 mg PO DAILY fluticasone propionate [Flonase Allergy Relief] 50 mcg/actuation spray,suspension 1 spray intranasal DAILY PRN (Reason: nasal congestion) Rx Instructions: administer into each nostril furosemide 20 mg tablet 20 mg PO QAM hydrocortisone 2.5 % cream 1 applic topical TID PRN (Reason: itching) losartan 100 mg tablet 100 mg PO DAILY clopidogrel [Plavix] 75 mg tablet 75 mg PO DAILY pregabalin [Lyrica] 75 mg capsule 75 mg PO TID magnesium oxide,aspartate,citr 400 mg magnesium capsule PO psyllium husk [Metamucil] 0.4 gram capsule 0.4 g PO DAILY metoprolol tartrate 25 mg tablet 25 mg PO BID cholecalciferol (vitamin D3) [Vitamin D3] 25 mcg (1,000 unit) capsule 1,000 unit PO DAILY ondansetron HCl 4 mg tablet 4 mg PO TID amlodipine 5 mg tablet 5 mg PO DAILY atorvastatin 20 mg tablet 20 mg PO DAILY baclofen 10 mg tablet 10 mg PO TID PRN (Reason: muscle spasm) acetaminophen-codeine 300-30 mg tablet 1 tab PO QID diazepam 5 mg tablet acetaminophen 325 mg capsule 325 mg PO Q6H PRN (Reason: pain) allopurinol 300 mg tablet 300 mg PO .QD levothyroxine 50 mcg tablet 50 mcg PO .QD cholecalciferol (vitamin D3) [Vitamin D3] 25 mcg (1,000 unit) capsule 25 mcg PO DAILY Hemorrhoidal Medicated Pads, Medicated 1 pad topical DAILY PRN (Reason: hemorrhoids) albuterol sulfate [ProAir HFA] 90 mcg/actuation HFA aerosol inhaler 1 inh inhalation Q4H PRN (Reason: shortness of breath or wheezing) potassium chloride [K-Tab] 20 mEq tablet extended release 10 meq PO DAILY nitroglycerin [Nitrostat] 0.4 mg tablet, sublingual 0.4 mg sublingual Q5M PRN (Reason: chest pain) Rx Instructions: do not exceed 3 doses per episode Instructions: Acute Nausea and Vomiting (DC), Acute Abdominal Pain (ED), Esophagitis (ED) Stand Alone Forms: Portal Instructions Referrals: Shaikh Elliott MD [Primary Care Provider] - 1 week Discharge Date/Time: 02/05/23 22:12
--- NOTE | 2023-02-05 18:56 | XR_ITS ---
[address] [address] Patient Name: GUILLERMINA GUADALUPE MRN: [id number] date: 1935 Sex: M Assigned Patient Location: ER Current Patient Location: ED.MAIN Accession/Order Number: [id number] Exam Date: 02/05/2023 20:20 Report Date: 02/05/2023 20:53 At the request of: MILES ABARCA Procedure: XR chest 1V Exam: Radiographs: XR chest 1V Reason for exam: Nausea and vomiting Comparison: Chest x-ray dated 02/02/2022 XR/XR chest 1V IMPRESSION: Negative chest. Electronically authenticated by: CONNIE PETERSON Date: 02/05/2023 20:53
--- NOTE | 2023-02-05 18:57 | ECG_ITS ---
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
--- NOTE | 2023-02-05 18:57 | CT_ITS ---
[address] [address] Patient Name: GUILLERMINA GUADALUPE MRN: [id number] date: 1935 Sex: M Assigned Patient Location: ER Current Patient Location: ED.MAIN Accession/Order Number: [id number] Exam Date: 02/05/2023 20:22 Report Date: 02/05/2023 20:52 At the request of: MILES ABARCA Procedure: CT abdomen pelvis w con EXAM: CT scan of the abdomen and pelvis using 100 mL of IV iodinated contrast. Dose reduction technique used: Automated exposure control and/or adjustment of the mA and/or kV according to patient size and/or use of iterative reconstruction technique. REASON FOR EXAM: Abdominal pain, vomiting COMPARISON: CT scan dated 11/27/2022 FINDINGS: Distal esophageal wall thickening. Moderate gastric distention. Multiple bilateral renal cysts. 2.1 x 1.6 cm hypoenhancing hepatic dome lesion. Colonic diverticulosis. Small fat-containing ventral hernia. Prostate brachytherapy. L3-L4 spinal canal stenosis is likely severe. Grade 1 retrolisthesis of L3 on L4. Negative appendix. No free fluid in the abdomen or pelvis. No free intraperitoneal air. No dilated or thickened loops of small bowel or colon. No hydronephrosis or obstructing renal or ureteral calculi. Liver, pancreas, spleen, bilateral kidneys, and bilateral adrenal glands are otherwise unremarkable. No lymphadenopathy in the abdomen or pelvis. Remainder unremarkable. CT/CT abdomen pelvis w con IMPRESSION: 1. Esophageal wall thickening may represent esophagitis although malignancy cannot be excluded, correlate clinically. 2. Moderate gastric distention. 3. Indeterminate hepatic dome lesion. Consider further evaluation with MRI on a nonemergent basis. 4. L3-L4 spinal canal stenosis is likely severe. Electronically authenticated by: CONNIE PETERSON Date: 02/05/2023 20:52
[2023-02-05] MEDS: PANTOPRAZOLE SODIUM 40 MG VIAL IV (19:23)
[2023-02-05] MEDS: ONDANSETRON PF 4 MG/2 ML VIAL IV ×2 (19:23→21:59)
[2023-02-05] MEDS: 0.9 % SODIUM CHLORIDE 1,000 ML 999 ML IV (19:23)
[2023-02-05] MEDS: MORPHINE SULFATE 2 MG/ML SYRINGE IV (19:23)
[2023-02-05 19:37] LABS: Basophils Percent Auto 0.2 % (0.2-2.0); Hematocrit 51.2 % (42.0-54.0); Hemoglobin 17.5 g/dL (14.0-18.0); Immature Granulocytes Abs Auto 0.04 10^3/uL (0.00-0.03); Immature Granulocytes Pct Auto 0.4 % (0.0-0.5); Lymphocytes Absolute Auto 0.5 10^3/uL (1.2-3.8); Lymphocytes Percent Auto 4.6 % (20.5-60.0); Mean Corpuscular HGB Conc 34.2 g/dL (29.9-35.2); Mean Corpuscular Hemoglobin 30.6 pg (25.9-34.0); Mean Corpuscular Volume 89.5 fL (80.0-94.0); Mean Platelet Volume 10.4 fL (9.5-13.5); Monocytes Absolute Auto 1.2 10^3/uL (0.3-0.8); Monocytes Percent Auto 10.5 % (1.7-12.0); Neutrophils Absolute Auto 9.3 10^3/uL (1.4-6.5); Neutrophils Percent Auto 84.3 % (43.0-75.0); Platelet Count 174 10^3/uL (150-450); Red Blood Count 5.72 10^6/uL (4.70-6.10); Red Cell Distribution Width 13.8 % (11.0-15.0)
[2023-02-05 20:03] LABS: Lactate/Lactic Acid 2.8 mmol/L (0.4-2.0)
[2023-02-05 20:06] LABS: Alanine Aminotransferase 52 U/L (16-63); Albumin Globulin Ratio 1.3; Albumin Level 4.3 g/dL (3.4-5.0); Alkaline Phosphatase 68 U/L (46-116); Anion Gap 13.8; Aspartate Amino Transferase 18 U/L (15-37); BUN Creatinine Ratio 30.2; Bilirubin Total 0.5 mg/dL (0.2-1.0); Calcium 9.2 mg/dL (8.5-10.1); Carbon Dioxide 28.2 mmol/L (21.0-32.0); Chloride 99 mmol/L (98-107); Estimated GFR (African America 54 (>=60); Estimated GFR (Non-African Ame 45 (>=60); Globulin 3.3 g/dL; Glucose 271 mg/dL (74-106); Sodium 137 mmol/L (136-145); Total Protein 7.6 g/dL (6.4-8.2); Troponin I High Sensitivity 9.2 pg/mL (4.0-76.1)
[2023-02-05 21:44] LABS: Lactate/Lactic Acid 2.8 mmol/L (0.4-2.0)
== END 2023-02-05 22:12 | disposition home or self-care (01) ==
PROVIDERS: Physician Assistant; Emergency Provider Emergency Medicine; PCP Internal Medicine
DX: K20.90 Esophagitis, unspecified without bleeding (principal); R11.2 Nausea with vomiting, unspecified; R10.9 Unspecified abdominal pain; Z79.82 Long term (current) use of aspirin; Z79.890 Hormone replacement therapy; Z79.899 Other long term (current) drug therapy; R32 Unspecified urinary incontinence; G89.29 Other chronic pain; M54.9 Dorsalgia, unspecified
CPT/HCPCS: 36415; 71045; 74177; 80053; 81003; 83605; 83690; 84484; 85025; 93005; 96361; 96374; 96375; 96376; 99285

== ENCOUNTER 2023-02-10 14:25 | Outpatient (RCR) | payer MEDICARE, SELFPAY | END 2023-04-10 16:32 | disposition home or self-care (01) | LOC: OT 14:25 | PROVIDERS: PCP Internal Medicine; Visit Provider Internal Medicine | DX: I89.0 Lymphedema, not elsewhere classified (principal) | CPT/HCPCS: 97140; 97166; 97530; 97535 ==

== ENCOUNTER 2023-03-06 13:14 | Outpatient (OUT) | payer MEDICARE, SELFPAY ==
--- NOTE | 2023-03-06 13:21 | PM.CN ---
Consult Note: HPI Data of Consult Patient: known to practice within the last 3 years Requesting Physician: Darshana Andrews NP Primary Care Provider: Shaikh Lexi MD Consult Narrative Reason for consult: bilateral L2-3, L3-4 radiofrequency ablation f/u Narrative: Ben Chicas a pleasant 87 year old male presents to the office for evaluation of chronic low back pain. Following up after L2-3, L3-4 radiofrequency ablation. Patient reporting 2 weeks of pain relief as a result of this procedure, however pain has returned. Patient has 6/10 low back pain and pain radiating down bilateral legs. Patient would like to discuss medications and injection therapy. He is hoping for pain relief and functional improvement before granddaughters wedding this fall. cc:: CC: Darshana Andrews NP Review of Systems ROS Status of ROS 10 or more systems reviewed and unremarkable except as noted in history and below Musculoskeletal Reports: back pain, joint pain, limited range of motion and muscle weakness PFSH PFSH Medical History Surgical History Social History Smoking status: Never smoker Meds Home Medications and Allergies Home Medications Medication Instructions Recorded Confirmed Type acetaminophen 325 mg capsule 325 mg PO Q6H PRN pain 12/27/22 02/03/23 History albuterol sulfate 90 mcg/actuation 1 inh inhalation Q4H PRN shortness 12/27/22 02/03/23 History aerosol inhaler (ProAir HFA) of breath or wheezing allopurinol 300 mg tablet 300 mg PO .QD 12/27/22 02/03/23 History cholecalciferol (vitamin D3) 25 25 mcg PO DAILY 12/27/22 02/03/23 History mcg (1,000 unit) capsule (Vitamin D3) levothyroxine 50 mcg tablet 50 mcg PO .QD 12/27/22 02/03/23 History nitroglycerin 0.4 mg sublingual 0.4 mg sublingual Q5M PRN chest 12/27/22 02/03/23 History tablet (Nitrostat) pain potassium chloride 20 mEq 10 meq PO DAILY 12/27/22 02/03/23 History tablet,extended release (K-Tab) witch letitia-glycerin (hamamel) 1 pad topical DAILY PRN hemorrhoids 12/27/22 02/03/23 History topical pads (Hemorrhoidal Medicated topical pads) Lactobacillus rhamnosus GG 10 1 cap PO DAILY 01/09/23 02/03/23 History billion cell capsule (Culturelle) aspirin 81 mg capsule 81 mg PO DAILY 01/09/23 02/03/23 History calcium carbonate 500 mg calcium 500 mg PO TID 01/09/23 02/03/23 History (1,250 mg) tablet clopidogrel 75 mg tablet (Plavix) 75 mg PO DAILY 01/09/23 02/03/23 History diltiazem HCl 180 mg 180 mg PO DAILY 01/09/23 02/03/23 History capsule,extended release 24 hr donepezil 10 mg tablet (Aricept) 10 mg PO DAILY 01/09/23 02/03/23 History dorzolamide-timolol (PF) 2 %-0.5 % 1 drp ophthalmic (eye) BID 01/09/23 02/03/23 History eye drops in a dropperette famotidine 20 mg tablet 20 mg PO DAILY 01/09/23 02/03/23 History ferrous sulfate 325 mg (65 mg 325 mg PO TID 01/09/23 02/03/23 History iron) tablet fluticasone propionate 50 1 spray intranasal DAILY PRN nasal 01/09/23 02/03/23 History mcg/actuation nasal congestion spray,suspension (Flonase Allergy Relief) furosemide 20 mg tablet 20 mg PO QAM 01/09/23 02/03/23 History hydrocortisone 2.5 % topical cream 1 applic topical TID PRN itching 01/09/23 02/03/23 History losartan 100 mg tablet 100 mg PO DAILY 01/09/23 02/03/23 History magnesium oxide,aspartate,citr mg PO 01/09/23 History metoprolol tartrate 25 mg tablet 25 mg PO BID 01/09/23 02/03/23 History ikvbvqhq-ai-mbjlj 300 mcg-K 60 1 tab PO DAILY 01/09/23 02/03/23 History mcg-lycop 600 mcg-lutein 300 mcg tablet (Centrum Silver Men) pregabalin 75 mg capsule (Lyrica) 75 mg PO TID 01/09/23 02/03/23 History psyllium husk 0.4 gram capsule 0.4 g PO DAILY 01/09/23 02/03/23 History (Metamucil) tamsulosin 0.4 mg capsule (Flomax) 0.4 mg PO DAILY 01/09/23 02/03/23 History amlodipine 5 mg tablet 5 mg PO DAILY 01/10/23 02/03/23 History atorvastatin 20 mg tablet 20 mg PO DAILY 01/10/23 02/03/23 History baclofen 10 mg tablet 10 mg PO TID PRN muscle spasm 01/10/23 02/03/23 History cholecalciferol (vitamin D3) 25 1,000 unit PO DAILY 01/10/23 02/03/23 History mcg (1,000 unit) capsule (Vitamin D3) ondansetron HCl 4 mg tablet 4 mg PO TID 01/10/23 02/03/23 History acetaminophen 300 mg-codeine 30 mg 1 tab PO QID 01/17/23 02/03/23 History tablet diazepam 5 mg tablet mg 02/03/23 History ondansetron 4 mg disintegrating 4 mg PO Q6H PRN nausea and 02/05/23 Rx tablet vomiting #12 tabs pantoprazole 40 mg tablet,delayed 40 mg PO DAILY #7 tabs 02/05/23 Rx release (Protonix) sucralfate 1 gram tablet (Carafate) 1 g PO Q6H PRN abdominal pain #12 02/05/23 Rx tabs Allergies Allergy/AdvReac Type Severity Reaction Status Date / Time tizanidine [From Zanaflex] Allergy Unknown Verified 02/03/23 09:23 acetaminophen [From Percocet] AdvReac Mild Vomiting Verified 02/03/23 09:23 cyclobenzaprine AdvReac Mild Hallucinati Verified 02/03/23 09:23 [From Flexeril] ng oxycodone [From Percocet] AdvReac Mild Vomiting Verified 02/03/23 09:23 tramadol AdvReac Mild Vomiting Verified 02/03/23 09:23 Exam Constitutional Documenting provider has reviewed patient's vital signs: yes Common normals: no apparent distress, oriented x3, healthy appearing, alert and well nourished General appearance: cooperative HENMT Common normals: normocephalic, hearing grossly normal bilaterally and moist oral mucous membranes Head and scalp: normocephalic Eye Common normals: PERRL Pupil: PERRL Neck & C-Spine Common normals: full ROM General: normal visual inspection Chest Common normals: inspection of chest normal Respiratory Common normals: normal respiratory effort, no retractions and no use of accessory muscles Back & Pelvis Lumbar spine/lower back: ROM limited, pain with ROM, straight leg raise positive right and straight leg raise positive left Extremity Right upper extremity: shoulder joint (limited ROM, pain with ROM and when lifting) Neuro Common normals: oriented x3, CN's II-XII intact bilaterally, moves all extremities, no focal motor deficits and no sensory deficits noted Sensorium/orientation: alert Gait (neuro): assistive device used (wheelchair) cane Motor exam: no movement abnormalities noted and strength abnormal (BLE 3/5. ) Psych Common normals: mental status grossly normal, thought process normal, cooperative, affect normal, speech normal and activity/motor behavior normal Speech: normal speech Thought process: normal thought process Results Additional Findings Additional findings: I have checked an [place] report on this patient today and there are no aberrancies noted in the prescribing history.?? A drug screen was completed and reviewed within the last year, and if there has not been a drug screen completed we ordered one today to monitor higher risk, state monitored pain medication use. As part of providing excellent, safe, comprehensive care, the following was completed at our patient's visit: 1. A medication reconciliation and review to ensure accurate knowledge of current/active medications, including asking our patients to inform us about any aoqi-dtr-ajaspkz medications or herbal remedies/nutritional supplements/alternative remedies. 2. A review to specifically ensure our patients have had annual screening for: elevated body mass index (BMI), tobacco use, screening for depression, and screening for unhealthy alcohol use. When screening is concerning, patients are provided with education and the specific recommendation to discuss the concerning health issue and treatment options with their primary care provider. MATT 80% with severe pain, pain with ADLS, unable to lift weights, can only walk with a stick or crutches, pain prevents him from sitting more than a half hour, pain prevents him from standing, pain interferes with sleep, pain interferes with social life and travel Assessment and Plan Assessment and Plan (1) Lumbar spondylosis: Assessment and Plan: RFA provided 2 weeks of pain relief, pain has since returned continue lyrica 50mg TID (2) Lumbar stenosis: (3) Muscle spasm: Assessment and Plan: continue baclofen 10mg HS (4) Lumbar radiculopathy: (5) Right shoulder pain: (6) Osteoarthritis, shoulder: (7) Chronic prescription opiate use: Assessment and Plan: not finding functional improvement or pain relief from Tylenol #3 I have refilled the patient's opioid prescriptions at the above noted dose and schedule.? I feel these medications are improving the patient's quality of life and allow them to tolerate activities of daily living as well as participate in recreational activity.? The patient does not report intolerable side effects. The patient is NOT opioid naive and non-pharmacologic and non-opioid treatment has failed to significantly relieve the patient's pain and improve functionality. The patient has a diagnosis that is related to a somatic or visceral pain etiology. ? ?? I reviewed with the patient the potential risks and side effects with the use of?opioid medications including but not limited to respiratory depression,?sedation, and even . I verified the patient has access to naloxone should?these effects occur. I advised the patient to avoid the use of any other?sedation substances including alcohol, THC, and benzodiazepines while?taking opioid medications due to the risk of compounding side effects and? detrimental outcomes. I reviewed the [employer], pain treatment agreement, urine?drug screen, and opioid start talking forms. The patient was advised to let?their family know they had Naloxone in case they would need to administer?the medication.? ?? discussed going back on [place] 5-325mg QID (8) Chronic pain syndrome: Plan L3/4 MATEUSZ under fluoroscopy, discussed risks vs benefits. Pt seeing supervisor home economics tomorrow, we will seek approval to hold blood thinner for procedure right AC shoulder injection in office next fill [place] 5-325mg QID PRN Pain, stop tylenol #3 PT reordered, declining water therapy discussed potential benefit consider right knee durolane in the future f/u after injection, or sooner if able to schedule right shoulder injection
== END 2023-03-06 13:15 | disposition home or self-care (01) ==
PROVIDERS: PCP Internal Medicine; Visit Provider Nurse Practitioner
DX: M47.26 Other spondylosis with radiculopathy, lumbar region (principal); M62.838 Other muscle spasm; M25.511 Pain in right shoulder; M48.061 Spinal stenosis, lumbar region without neurogenic claudication; Z79.891 Long term (current) use of opiate analgesic
CPT/HCPCS: G0463

== ENCOUNTER 2023-03-13 12:02 | Outpatient (RCR) | payer MEDICARE, SELFPAY | END 2023-04-24 16:33 | disposition home or self-care (01) | LOC: PT 12:02 | PROVIDERS: PCP Internal Medicine; Visit Provider Anesthesiology Pain Medicine | DX: M47.816 Spondylosis without myelopathy or radiculopathy, lumbar region (principal) | CPT/HCPCS: 97110; 97116; 97162; 97530 ==

== ENCOUNTER 2023-03-24 12:38 | Outpatient (OUT) | payer MEDICARE, SELFPAY ==
--- NOTE | 2023-03-24 13:27 | PM.CN ---
Consult Note: HPI Data of Consult Patient: known to practice within the last 3 years Consult date: 03/24/23 Requesting Physician: Mallorie Joy MD Primary Care Provider: Shaikh Lexi MD Consult Narrative Reason for consult: right shoulder, low back, right knee pain Narrative: pleasant 87yom who presents for assessment. persistent right shoulder pain. previously discussed doing right shoulder injection, and he would like this done today. also notes increasing pain of his right knee. states that this has not been addressed for several years. had steroid injection several years ago, which provided >50% relief for >3 months. he is interested in addressing his right knee pain, as well. continues in provider directed home exercise program >6 weeks, which provides minimal relief. uses norco 5mg qid, which helps some, but still has quite a bit of pain. denies adverse medication side effects. cc:: CC: Mallorie Joy MD Review of Systems ROS Status of ROS 10 or more systems reviewed and unremarkable except as noted in history and below PFSH PFS Medical History Surgical History Social History Smoking status: Never smoker Meds Home Medications and Allergies Home Medications Medication Instructions Recorded Confirmed Type acetaminophen 325 mg capsule 325 mg PO Q6H PRN pain 12/27/22 02/03/23 History albuterol sulfate 90 mcg/actuation 1 inh inhalation Q4H PRN shortness 12/27/22 02/03/23 History aerosol inhaler (ProAir HFA) of breath or wheezing allopurinol 300 mg tablet 300 mg PO .QD 12/27/22 02/03/23 History cholecalciferol (vitamin D3) 25 25 mcg PO DAILY 12/27/22 02/03/23 History mcg (1,000 unit) capsule (Vitamin D3) levothyroxine 50 mcg tablet 50 mcg PO .QD 12/27/22 02/03/23 History nitroglycerin 0.4 mg sublingual 0.4 mg sublingual Q5M PRN chest 12/27/22 02/03/23 History tablet (Nitrostat) pain potassium chloride 20 mEq 10 meq PO DAILY 12/27/22 02/03/23 History tablet,extended release (K-Tab) witch letitia-glycerin (hamamel) 1 pad topical DAILY PRN hemorrhoids 12/27/22 02/03/23 History topical pads (Hemorrhoidal Medicated topical pads) Lactobacillus rhamnosus GG 10 1 cap PO DAILY 01/09/23 02/03/23 History billion cell capsule (Culturelle) aspirin 81 mg capsule 81 mg PO DAILY 01/09/23 02/03/23 History calcium carbonate 500 mg calcium 500 mg PO TID 01/09/23 02/03/23 History (1,250 mg) tablet diltiazem HCl 180 mg 180 mg PO DAILY 01/09/23 02/03/23 History capsule,extended release 24 hr donepezil 10 mg tablet (Aricept) 10 mg PO DAILY 01/09/23 02/03/23 History dorzolamide-timolol (PF) 2 %-0.5 % 1 drp ophthalmic (eye) BID 01/09/23 02/03/23 History eye drops in a dropperette famotidine 20 mg tablet 20 mg PO DAILY 01/09/23 02/03/23 History ferrous sulfate 325 mg (65 mg 325 mg PO TID 01/09/23 02/03/23 History iron) tablet fluticasone propionate 50 1 spray intranasal DAILY PRN nasal 01/09/23 02/03/23 History mcg/actuation nasal congestion spray,suspension (Flonase Allergy Relief) furosemide 20 mg tablet 20 mg PO QAM 01/09/23 02/03/23 History hydrocortisone 2.5 % topical cream 1 applic topical TID PRN itching 01/09/23 02/03/23 History losartan 100 mg tablet 100 mg PO DAILY 01/09/23 02/03/23 History magnesium oxide,aspartate,citr mg PO 01/09/23 History metoprolol tartrate 25 mg tablet 25 mg PO BID 01/09/23 02/03/23 History sucqfgli-zq-jrnst 300 mcg-K 60 1 tab PO DAILY 01/09/23 02/03/23 History mcg-lycop 600 mcg-lutein 300 mcg tablet (Centrum Silver Men) pregabalin 75 mg capsule (Lyrica) 75 mg PO TID 01/09/23 02/03/23 History psyllium husk 0.4 gram capsule 0.4 g PO DAILY 01/09/23 02/03/23 History (Metamucil) tamsulosin 0.4 mg capsule (Flomax) 0.4 mg PO DAILY 01/09/23 02/03/23 History amlodipine 5 mg tablet 5 mg PO DAILY 01/10/23 02/03/23 History atorvastatin 20 mg tablet 20 mg PO DAILY 01/10/23 02/03/23 History baclofen 10 mg tablet 10 mg PO TID PRN muscle spasm 01/10/23 02/03/23 History cholecalciferol (vitamin D3) 25 1,000 unit PO DAILY 01/10/23 02/03/23 History mcg (1,000 unit) capsule (Vitamin D3) ondansetron HCl 4 mg tablet 4 mg PO TID 01/10/23 02/03/23 History acetaminophen 300 mg-codeine 30 mg 1 tab PO QID 01/17/23 02/03/23 History tablet diazepam 5 mg tablet mg 02/03/23 History ondansetron 4 mg disintegrating 4 mg PO Q6H PRN nausea and 02/05/23 Rx tablet vomiting #12 tabs pantoprazole 40 mg tablet,delayed 40 mg PO DAILY #7 tabs 02/05/23 Rx release (Protonix) sucralfate 1 gram tablet (Carafate) 1 g PO Q6H PRN abdominal pain #12 02/05/23 Rx tabs hydrocodone 5 mg-acetaminophen 325 1 tab PO QID PRN pain #120 tabs 03/06/23 Rx mg tablet pregabalin 75 mg capsule (Lyrica) 75 mg PO TID #270 caps 03/19/23 Rx Allergies Allergy/AdvReac Type Severity Reaction Status Date / Time tizanidine [From Zanaflex] Allergy Unknown Verified 02/03/23 09:23 acetaminophen [From Percocet] AdvReac Mild Vomiting Verified 02/03/23 09:23 cyclobenzaprine AdvReac Mild Hallucinati Verified 02/03/23 09:23 [From Flexeril] ng oxycodone [From Percocet] AdvReac Mild Vomiting Verified 02/03/23 09:23 tramadol AdvReac Mild Vomiting Verified 02/03/23 09:23 Exam Narrative Exam Narrative: Psych-alert and oriented x 3.? Attentive and appropriate, constitutionally normal, displays normal mood and affect per situation.? There are no obvious deficits in memory, reasoning, or intellect. Extremities-lower extremities are warm with minimal edema and palpable pulses. Shoulder-tenderness to palpation of right shoulder. pain elicited with lateral rotation, abduction of right arm. Knee-examination of the right knee reveals tenderness to palpation over the superior, inferior, lateral, and medial aspect of the knee.? Some swelling is noted without erythema. Pain is elicited with flexion and extension of the knee both actively and passively.? Some grinding is noted with these motions.? There is no notable ligamental laxity or instability.? Coordination remains intact.? Gait remains antalgic. Assessment and Plan Assessment and Plan (1) Lumbar stenosis: (2) Lumbar spondylosis: (3) Osteoarthritis, shoulder: (4) Osteoarthritis of right knee: Plan pleasant 87yom who presents for assessment. notes increasing pain throughout right shoulder, so will proceed with right shoulder injection. in terms of his knee pain, discussed that it would be reasonable to attempt a right knee injection in the future, since this had provided significant relief before. he would like to schedule this. medications reviewed. instructed him to increase his norco to 5mg 1.5 tabs qid prn. will call early for refill. follow up after procedure. Procedure: Right shoulder injection Medications: Bupivacaine 0.25% 4cc, kenalog 40mg Diagnosis: Right shoulder osteoarthritis I explained the details of the procedure to the patient including the risks, benefits, and alternatives.? We had an informed discussion.? The patient verbalized understanding and signed the consent form.? All questions were answered appropriately.? A time-out was performed.? After obtaining a comfortable seated position, the skin overlying the right shoulder was prepped with alcohol 3 times.? The sulcus between the head of the humerus and the acromion was identified.? The needle was inserted in a sterile manner 2 cm inferior and medial to the posterolateral corner of the acromion and was directed anteriorly toward the coracoid process. The contents of the syringe were gently injected without any resistance into the joint space after negative aspiration for blood or other bodily fluids.? The needle was removed and pressure was applied at the injection site to decrease the incidence of ecchymosis and hematoma formation.? A sterile bandage was applied.
== END 2023-03-24 12:39 | disposition home or self-care (01) ==
LOC: PM 12:38
PROVIDERS: PCP Internal Medicine; Visit Provider Anesthesiology
DX: M47.816 Spondylosis without myelopathy or radiculopathy, lumbar region (principal); M48.061 Spinal stenosis, lumbar region without neurogenic claudication; M19.011 Primary osteoarthritis, right shoulder; M17.11 Unilateral primary osteoarthritis, right knee
CPT/HCPCS: 20610

== ENCOUNTER 2023-03-31 10:38 | Day surgery (SDC) | payer MEDICARE, SELFPAY ==
[2023-03-31 11:47] LABS: Glucometer 222 mg/dL (74-106)
[2023-03-31 11:53] VITALS: BP 130/84; PULSE 84; RESP 14; TEMP 36.9; O2SAT 96
[2023-03-31] MEDS: BUPIVACAINE HCL 0.25% PF 25 MG/10 ML VIAL INJ (12:40)
[2023-03-31] MEDS: IOHEXOL 240 MG/ML - 10 ML VIAL IV (12:41)
[2023-03-31] MEDS: LIDOCAINE HCL 2% PF 100 MG/5 ML VIAL INJ (12:41)
[2023-03-31] MEDS: TRIAMCINOLONE ACETONIDE 40 MG/ML VIAL INJ (12:41)
--- NOTE | 2023-03-31 12:42 | W.PM.PROCNOT ---
Date of procedure: 03/31/23 Pre-op diagnosis: Lumbar stenosis with neurogenic claudication Post-op diagnosis: same as pre-op Procedure: Procedure: Bilateral L3-4 transforaminal epidural steroid injection Medication: Bupivacaine 0.25% 1cc, clonidine 100mcg, kenalog 80mg The patient was seen and examined in the preoperative holding area.? Informed consent was obtained and placed on the chart.? Patient was brought to the medical procedure unit and placed in the prone position where a timeout was completed verifying the correct patient, procedure site, position, and planned special equipment using sterile aseptic technique.? Under direct fluoroscopic visualization a 25-gauge Quincke tipped spinal needle was advanced at level left L3-4 to the designated neural foramen where contrast dye was injected to show adequate spread.? There was no evidence of vascular or adverse uptake.? Epidural spread was appreciated.? The above-mentioned injectate was then placed in a 1.5 mL aliquot preceded by negative aspiration.? The needle was removed. The same procedure, at the same level, was completed on the opposite side. ? Patient was taken to the postprocedural recovery area and monitored for an appropriate length of time before found suitable for discharge in the accompaniment of a responsible adult. Anesthesia: Local Surgeon: Mallorie Joy Pathology: none sent Condition: stable Disposition: no change
== END 2023-03-31 12:48 | disposition home or self-care (01) ==
PROVIDERS: PCP Internal Medicine; Visit Provider Anesthesiology
DX: M48.062 Spinal stenosis, lumbar region with neurogenic claudication (principal); Z79.899 Other long term (current) drug therapy; Z79.82 Long term (current) use of aspirin; Z79.890 Hormone replacement therapy
CPT/HCPCS: 36415; 36416; 64483; 82948; Q9966

== ENCOUNTER 2023-04-21 13:48 | Outpatient (OUT) | payer MEDICARE, SELFPAY ==
--- NOTE | 2023-04-21 14:33 | P.CN_ITS ---
Consult Note: HPI Data of Consult Patient: known to practice within the last 3 years Consult date: 04/21/23 Requesting Physician: Mallorie Joy MD Primary Care Provider: Shaikh Lexi MD Consult Narrative Reason for consult: low back, bilateral lower extremity pain Narrative: 87yom who presents for assessment. Notes moderate relief after recent bilateral L3-4 tfesi, though pain has returned to some degree. Imaging reviewed, which shows moderate canal stenosis and foraminal stenosis at L5-S1. also multilevel facet arthropathy noted. Continues to utilize norco as needed. Continues in provider directed home exercise program >6 weeks, with minimal benefit. denies adverse med side effects. cc:: CC: Mallorie Joy MD Review of Systems ROS Status of ROS 10 or more systems reviewed and unremarkable except as noted in history and below [facility] Medical History Acid reflux ?K21.9 - Gastro-esophageal reflux disease without esophagitis (ICD-10) Bladder cancer ?C67.9 - Malignant neoplasm of bladder, unspecified (ICD-10) CPAP (continuous positive airway pressure) dependence ?Z99.89 - Dependence on other enabling machines and devices (ICD-10) Diabetes 1.5, managed as type 2 ?E13.9 - Other specified diabetes mellitus without complications (ICD-10) DVT (deep venous thrombosis) ?I82.409 - Acute embolism and thrombosis of unspecified deep veins of unspecified lower extremity (ICD-10) Gout ?M10.9 - Gout, unspecified (ICD-10) Hearing deficit ?H91.90 - Unspecified hearing loss, unspecified ear (ICD-10) Hypercholesterolemia ?E78.00 - Pure hypercholesterolemia, unspecified (ICD-10) Hypertension ?I10 - Essential (primary) hypertension (ICD-10) Hypothyroid ?E03.9 - Hypothyroidism, unspecified (ICD-10) IBS (irritable bowel syndrome) ?K58.9 - Irritable bowel syndrome without diarrhea (ICD-10) Inguinal hernia ?K40.90 - Unilateral inguinal hernia, without obstruction or gangrene, not specified as recurrent (ICD-10) Kidney stone ?N20.0 - Calculus of kidney (ICD-10) Low back pain ?M54.50 - Low back pain, unspecified (ICD-10) Osteoarthritis ?M19.90 - Unspecified osteoarthritis, unspecified site (ICD-10) Presence of Watchman left atrial appendage closure device ?Z95.818 - Presence of other cardiac implants and grafts (ICD-10) Prostate cancer ?C61 - Malignant neoplasm of prostate (ICD-10) Retraction of blood clot ?I74.9 - Embolism and thrombosis of unspecified artery (ICD-10) Rheumatoid arthritis ?M06.9 - Rheumatoid arthritis, unspecified (ICD-10) Sleep apnea ?G47.30 - Sleep apnea, unspecified (ICD-10) Surgical History H/O arthroscopy of knee ?Z98.890 - Other specified postprocedural states (ICD-10) H/O neck surgery ?Z98.890 - Other specified postprocedural states (ICD-10) H/O transurethral resection of bladder tumor (TURBT) ?Z98.890 - Other specified postprocedural states (ICD-10) ?Z86.03 - Personal history of neoplasm of uncertain behavior (ICD-10) Previous back surgery ?Z98.890 - Other specified postprocedural states (ICD-10) S/P tonsillectomy and adenoidectomy ?Z90.89 - Acquired absence of other organs (ICD-10) Social History Smoking status: Never smoker Meds Home Medications and Allergies Home Medications Medication Instructions Recorded Confirmed Type acetaminophen 325 mg capsule 325 mg PO Q6H PRN pain 12/27/22 03/31/23 History albuterol sulfate 90 mcg/actuation 1 inh inhalation Q4H PRN shortness 12/27/22 03/31/23 History aerosol inhaler (ProAir HFA) of breath or wheezing allopurinol 300 mg tablet 300 mg PO .QD 12/27/22 03/31/23 History cholecalciferol (vitamin D3) 25 25 mcg PO DAILY 12/27/22 03/31/23 History mcg (1,000 unit) capsule (Vitamin D3) levothyroxine 50 mcg tablet 50 mcg PO .QD 12/27/22 03/31/23 History nitroglycerin 0.4 mg sublingual 0.4 mg sublingual Q5M PRN chest 12/27/22 03/31/23 History tablet (Nitrostat) pain potassium chloride 20 mEq 10 meq PO DAILY 12/27/22 03/31/23 History tablet,extended release (K-Tab) witch letitia-glycerin (hamamel) 1 pad topical DAILY PRN hemorrhoids 12/27/22 03/31/23 History topical pads (Hemorrhoidal Medicated topical pads) Lactobacillus rhamnosus GG 10 1 cap PO DAILY 01/09/23 03/31/23 History billion cell capsule (Culturelle) aspirin 81 mg capsule 81 mg PO DAILY 01/09/23 03/31/23 History calcium carbonate 500 mg calcium 500 mg PO TID 01/09/23 03/31/23 History (1,250 mg) tablet diltiazem HCl 180 mg 180 mg PO DAILY 01/09/23 03/31/23 History capsule,extended release 24 hr donepezil 10 mg tablet (Aricept) 10 mg PO DAILY 01/09/23 03/31/23 History dorzolamide-timolol (PF) 2 %-0.5 % 1 drp ophthalmic (eye) BID 01/09/23 03/31/23 History eye drops in a dropperette famotidine 20 mg tablet 20 mg PO DAILY 01/09/23 03/31/23 History ferrous sulfate 325 mg (65 mg 325 mg PO TID 01/09/23 03/31/23 History iron) tablet fluticasone propionate 50 1 spray intranasal DAILY PRN nasal 01/09/23 03/31/23 History mcg/actuation nasal congestion spray,suspension (Flonase Allergy Relief) furosemide 20 mg tablet 20 mg PO QAM 01/09/23 03/31/23 History hydrocortisone 2.5 % topical cream 1 applic topical TID PRN itching 01/09/23 03/31/23 History losartan 100 mg tablet 100 mg PO DAILY 01/09/23 03/31/23 History magnesium oxide,aspartate,citr mg PO 01/09/23 History metoprolol tartrate 25 mg tablet 25 mg PO BID 01/09/23 03/31/23 History salavesm-nc-btnfo 300 mcg-K 60 1 tab PO DAILY 01/09/23 03/31/23 History mcg-lycop 600 mcg-lutein 300 mcg tablet (Centrum Silver Men) psyllium husk 0.4 gram capsule 0.4 g PO DAILY 01/09/23 03/31/23 History (Metamucil) tamsulosin 0.4 mg capsule (Flomax) 0.4 mg PO DAILY 01/09/23 03/31/23 History amlodipine 5 mg tablet 5 mg PO DAILY 01/10/23 03/31/23 History atorvastatin 20 mg tablet 20 mg PO DAILY 01/10/23 03/31/23 History baclofen 10 mg tablet 10 mg PO TID PRN muscle spasm 01/10/23 03/31/23 History ondansetron 4 mg disintegrating 4 mg PO Q6H PRN nausea and 02/05/23 03/31/23 Rx tablet vomiting #12 tabs pantoprazole 40 mg tablet,delayed 40 mg PO DAILY #7 tabs 02/05/23 03/31/23 Rx release (Protonix) sucralfate 1 gram tablet (Carafate) 1 g PO Q6H PRN abdominal pain #12 02/05/23 03/31/23 Rx tabs pregabalin 75 mg capsule (Lyrica) 75 mg PO TID #270 caps 03/19/23 03/31/23 Rx hydrocodone 5 mg-acetaminophen 325 1.5 tab PO QID PRN pain 03/27/23 03/31/23 History mg tablet hydrocodone 5 mg-acetaminophen 325 1 tab PO BID PRN pain #180 tabs 04/03/23 Rx mg tablet hydrocodone 5 mg-acetaminophen 325 1.5 tab PO QID PRN pain #180 tabs 04/07/23 Rx mg tablet Allergies Allergy/AdvReac Type Severity Reaction Status Date / Time tizanidine [From Zanaflex] Allergy Unknown Verified 02/03/23 09:23 acetaminophen [From Percocet] AdvReac Mild Vomiting Verified 02/03/23 09:23 cyclobenzaprine AdvReac Mild Hallucinati Verified 02/03/23 09:23 [From Flexeril] ng oxycodone [From Percocet] AdvReac Mild Vomiting Verified 02/03/23 09:23 tramadol AdvReac Mild Vomiting Verified 02/03/23 09:23 Exam Narrative Exam Narrative: Psych-alert and oriented x 3. Attentive and appropriate, constitutionally normal, displays normal mood and affect per situation. There are no obvious deficits in memory, reasoning, or intellect.? Skin-no obvious rashes, bruising, erythema noted to the patient's area of pain.? Extremities- extremities are warm with minimal edema and palpable pulses. Lumbar-tenderness to palpation noted in the lumbar spine and paraspinal musculature. Pain is elicited with flexion, extension, and lateral rotation of the lumbar spine. Range of motion is diminished with these motions. Facet loading maneuvers are positive..? Strength-noted to be unremarkable with the exception of decreased strength rated at 4 out of 5 in bilateral quadriceps femoris, anterior tibialis. Sensory-no notable sensory deficits in the bilateral lower extremities to touch or pinprick in all dermatomal distributions with the exception to decreased sensation to the bilateral L3, 4, 5 dermatomal distribution Coordination remains intact.? Gait remains mildly antalgic Assessment and Plan Assessment and Plan (1) Lumbar stenosis: (2) Lumbar spondylosis: Plan 87yof who presents for assessment. Worsening pain from low back into bilateral lower extremities. Imaging reviewed, as noted. Given moderate, but temporary, relief with previous injection, would like to try bilateral L5-S1 tfesi to see if this provides more benefit. he is in agreement. medications reviewed, no changes at this time. follow up after procedure.
== END 2023-04-21 13:49 | disposition home or self-care (01) ==
LOC: PM 13:49
PROVIDERS: PCP Internal Medicine; Visit Provider Anesthesiology
DX: M47.816 Spondylosis without myelopathy or radiculopathy, lumbar region (principal); M48.061 Spinal stenosis, lumbar region without neurogenic claudication
CPT/HCPCS: G0463

== ENCOUNTER 2023-05-05 07:55 | Day surgery (SDC) | payer MEDICARE, SELFPAY ==
[2023-05-05 08:30] VITALS: BP 126/84; PULSE 76; RESP 18; TEMP 36.6; O2SAT 98
[2023-05-05 08:39] LABS: Glucometer 231 mg/dL (74-106)
[2023-05-05 08:56] VITALS: BP 151/77; PULSE 72; RESP 18; O2SAT 94
[2023-05-05] MEDS: BUPIVACAINE HCL 0.25% PF 25 MG/10 ML VIAL 2 ML INJ (09:00)
[2023-05-05] MEDS: IOHEXOL 240 MG/ML - 10 ML VIAL INJ (09:00)
[2023-05-05] MEDS: TRIAMCINOLONE ACETONIDE 40 MG/ML VIAL 80 MG INJ (09:01)
[2023-05-05] MEDS: LIDOCAINE HCL 2% PF 100 MG/5 ML VIAL 3 ML INJ (09:01)
--- NOTE | 2023-05-05 09:01 | W.PM.PROCNOT ---
Date of procedure: 05/05/23 Pre-op diagnosis: Lumbar stenosis with neurogenic claudication Post-op diagnosis: same as pre-op Procedure: Procedure: Bilateral L5-S1 transforaminal epidural steroid injection Medications: Bupivacaine 0.25% 2cc, kenalog 40mg The patient was seen and examined in the preoperative holding area.? Informed consent was obtained and placed on the chart.? Patient was brought to the medical procedure unit and placed in the prone position where a timeout was completed verifying the correct patient, procedure site, position, and planned special equipment using sterile aseptic technique.? Under direct fluoroscopic visualization a 25-gauge Quincke tipped spinal needle was advanced at level left L5-S1 to the designated neural foramen where contrast dye was injected to show adequate spread.? There was no evidence of vascular or adverse uptake.? Epidural spread was appreciated.? The above-mentioned injectate was then placed in a 1.5 mL aliquot preceded by negative aspiration.? The needle was removed. The same procedure, at the same level, was completed on the opposite side. ? Patient was taken to the postprocedural recovery area and monitored for an appropriate length of time before found suitable for discharge in the accompaniment of a responsible adult. Anesthesia: Local Surgeon: Mallorie Joy Pathology: none sent Condition: stable Disposition: no change
[2023-05-05 09:02] VITALS: BP 136/84; PULSE 72; RESP 18; O2SAT 94
== END 2023-05-05 09:10 | disposition home or self-care (01) ==
PROVIDERS: PCP Internal Medicine; Visit Provider Anesthesiology
DX: M48.062 Spinal stenosis, lumbar region with neurogenic claudication (principal)
CPT/HCPCS: 36415; 64483; 82948; Q9966

== ENCOUNTER 2023-05-09 11:24 | Outpatient (OUT) | payer MEDICARE, SELFPAY ==
[2023-05-09 12:18] LABS: Creatinine Urine Random <13.00 mg/dL (20.00-300.00); Total Protein Urine Random 6.6 mg/dL (<=11.9)
[2023-05-09 12:34] LABS: Alanine Aminotransferase 222 U/L (16-63); Albumin Globulin Ratio 1.2; Albumin Level 3.8 g/dL (3.4-5.0); Alkaline Phosphatase 58 U/L (46-116); Anion Gap 16.2; Aspartate Amino Transferase 47 U/L (15-37); BUN Creatinine Ratio 26.4; Bilirubin Total 1.1 mg/dL (0.2-1.0); Calcium 8.7 mg/dL (8.5-10.1); Carbon Dioxide 23.3 mmol/L (21.0-32.0); Chloride 94 mmol/L (98-107); Chol HDL Ratio 3.1; Cholesterol 118 mg/dL (<=200); Estimated GFR (African America 58 (>=60); Estimated GFR (Non-African Ame 48 (>=60); Globulin 3.3 g/dL; Glucose 313 mg/dL (74-106); HDL Cholesterol 38 mg/dL (40-60); Potassium 3.5 mmol/L (3.5-5.1); Sodium 130 mmol/L (136-145); Thyroid Stimulating Hormone 1.391 uIU/mL (0.358-3.740); Total Protein 7.1 g/dL (6.4-8.2); Triglycerides 260 mg/dL (<=150)
[2023-05-09 12:56] LABS: Estimated Average Glucose 232 mg/dL; Glycohemoglobin A1C 9.7 % (4.5-6.2)
== END 2023-05-09 11:25 | disposition home or self-care (01) ==
LOC: LAB 11:24
PROVIDERS: PCP Internal Medicine; Visit Provider Internal Medicine
DX: E11.22 Type 2 diabetes mellitus with diabetic chronic kidney disease (principal); I12.9 Hypertensive chronic kidney disease with stage 1 through stage 4 chronic kidney disease, or unspecified chronic kidney disease; E78.5 Hyperlipidemia, unspecified; E03.9 Hypothyroidism, unspecified
CPT/HCPCS: 36415; 80053; 80061; 82570; 83036; 84156; 84443

== ENCOUNTER 2023-05-15 11:01 | Outpatient (OUT) | payer MEDICARE, SELFPAY ==
--- NOTE | 2023-05-15 11:43 | P.CN_ITS ---
Consult Note: HPI Data of Consult Patient: known to practice within the last 3 years Consult date: 04/21/23 Requesting Physician: Darshana Andrews NP Primary Care Provider: Shaikh Lexi MD Consult Narrative Reason for consult: low back, bilateral lower extremity pain Narrative: 87yom who presents for assessment. Notes moderate relief after recent bilateral L3-4 tfesi, though pain has returned to some degree. Imaging reviewed, which shows moderate canal stenosis and foraminal stenosis at L5-S1. also multilevel facet arthropathy noted. Continues to utilize norco as needed. Continues in provider directed home exercise program >6 weeks, with minimal benefit. denies adverse med side effects. Today rating pain 9/10 sharp in low back and bilateral legs, weakness with standing and ambulation. Patient recently underwent bilateral L5-S1 TFESI with >80% pain relief for one week, now back to baseline. Unfortunately MATT much worse, as well as pain, MATT 82% today. Patient very optimistic that there is a procedure that will help him and would like to discuss additional options. cc:: CC: Darshana Andrews NP Review of Systems ROS Status of ROS 10 or more systems reviewed and unremarkable except as noted in history and below Musculoskeletal Reports: back pain PFSH PFSH Medical History Acid reflux ?K21.9 - Gastro-esophageal reflux disease without esophagitis (ICD-10) Bladder cancer ?C67.9 - Malignant neoplasm of bladder, unspecified (ICD-10) CPAP (continuous positive airway pressure) dependence ?Z99.89 - Dependence on other enabling machines and devices (ICD-10) Diabetes 1.5, managed as type 2 ?E13.9 - Other specified diabetes mellitus without complications (ICD-10) DVT (deep venous thrombosis) ?I82.409 - Acute embolism and thrombosis of unspecified deep veins of unspeci fied lower extremity (ICD-10) Gout ?M10.9 - Gout, unspecified (ICD-10) Hearing deficit ?H91.90 - Unspecified hearing loss, unspecified ear (ICD-10) Hypercholesterolemia ?E78.00 - Pure hypercholesterolemia, unspecified (ICD-10) Hypertension ?I10 - Essential (primary) hypertension (ICD-10) Hypothyroid ?E03.9 - Hypothyroidism, unspecified (ICD-10) IBS (irritable bowel syndrome) ?K58.9 - Irritable bowel syndrome without diarrhea (ICD-10) Inguinal hernia ?K40.90 - Unilateral inguinal hernia, without obstruction or gangrene, not specified as recurrent (ICD-10) Kidney stone ?N20.0 - Calculus of kidney (ICD-10) Low back pain ?M54.50 - Low back pain, unspecified (ICD-10) Osteoarthritis ?M19.90 - Unspecified osteoarthritis, unspecified site (ICD-10) Presence of Watchman left atrial appendage closure device ?Z95.818 - Presence of other cardiac implants and grafts (ICD-10) Prostate cancer ?C61 - Malignant neoplasm of prostate (ICD-10) Retraction of blood clot ?I74.9 - Embolism and thrombosis of unspecified artery (ICD-10) Rheumatoid arthritis ?M06.9 - Rheumatoid arthritis, unspecified (ICD-10) Sleep apnea ?G47.30 - Sleep apnea, unspecified (ICD-10) Surgical History H/O arthroscopy of knee ?Z98.890 - Other specified postprocedural states (ICD-10) H/O neck surgery ?Z98.890 - Other specified postprocedural states (ICD-10) H/O transurethral resection of bladder tumor (TURBT) ?Z98.890 - Other specified postprocedural states (ICD-10) ?Z86.03 - Personal history of neoplasm of uncertain behavior (ICD-10) Previous back surgery ?Z98.890 - Other specified postprocedural states (ICD-10) S/P tonsillectomy and adenoidectomy ?Z90.89 - Acquired absence of other organs (ICD-10) Social History Smoking status: Never smoker Meds Home Medications and Allergies Home Medications Medication Instructions Recorded Confirmed Type acetaminophen 325 mg capsule 325 mg PO Q6H PRN pain 12/27/22 05/05/23 History albuterol sulfate 90 mcg/actuation 1 inh inhalation Q4H PRN shortness 12/27/22 05/05/23 History aerosol inhaler (ProAir HFA) of breath or wheezing allopurinol 300 mg tablet 300 mg PO .QD 12/27/22 05/05/23 History cholecalciferol (vitamin D3) 25 25 mcg PO DAILY 12/27/22 05/05/23 History mcg (1,000 unit) capsule (Vitamin D3) levothyroxine 50 mcg tablet 50 mcg PO .QD 12/27/22 05/05/23 History nitroglycerin 0.4 mg sublingual 0.4 mg sublingual Q5M PRN chest 12/27/22 05/05/23 History tablet (Nitrostat) pain potassium chloride 20 mEq 10 meq PO DAILY 12/27/22 05/05/23 History tablet,extended release (K-Tab) witch letitia-glycerin (hamamel) 1 pad topical DAILY PRN hemorrhoids 12/27/22 05/05/23 History topical pads (Hemorrhoidal Medicated topical pads) Lactobacillus rhamnosus GG 10 1 cap PO DAILY 01/09/23 05/05/23 History billion cell capsule (Culturelle) aspirin 81 mg capsule 81 mg PO DAILY 01/09/23 05/05/23 History calcium carbonate 500 mg calcium 500 mg PO TID 01/09/23 05/05/23 History (1,250 mg) tablet diltiazem HCl 180 mg 180 mg PO DAILY 01/09/23 05/05/23 History capsule,extended release 24 hr donepezil 10 mg tablet (Aricept) 10 mg PO DAILY 01/09/23 05/05/23 History dorzolamide-timolol (PF) 2 %-0.5 % 1 drp ophthalmic (eye) BID 01/09/23 05/05/23 History eye drops in a dropperette famotidine 20 mg tablet 20 mg PO DAILY 01/09/23 05/05/23 History ferrous sulfate 325 mg (65 mg 325 mg PO TID 01/09/23 05/05/23 History iron) tablet fluticasone propionate 50 1 spray intranasal DAILY PRN nasal 01/09/23 05/05/23 History mcg/actuation nasal congestion spray,suspension (Flonase Allergy Relief) furosemide 20 mg tablet 20 mg PO QAM 01/09/23 05/05/23 History hydrocortisone 2.5 % topical cream 1 applic topical TID PRN itching 01/09/23 05/05/23 History losartan 100 mg tablet 100 mg PO DAILY 01/09/23 05/05/23 History magnesium oxide,aspartate,citr mg PO 01/09/23 History metoprolol tartrate 25 mg tablet 25 mg PO BID 01/09/23 05/05/23 History yncwcspo-jo-xdepl 300 mcg-K 60 1 tab PO DAILY 01/09/23 05/05/23 History mcg-lycop 600 mcg-lutein 300 mcg tablet (Centrum Silver Men) psyllium husk 0.4 gram capsule 0.4 g PO DAILY 01/09/23 05/05/23 History (Metamucil) tamsulosin 0.4 mg capsule (Flomax) 0.4 mg PO DAILY 01/09/23 05/05/23 History amlodipine 5 mg tablet 5 mg PO DAILY 01/10/23 05/05/23 History atorvastatin 20 mg tablet 20 mg PO DAILY 01/10/23 05/05/23 History baclofen 10 mg tablet 10 mg PO TID PRN muscle spasm 01/10/23 05/05/23 History ondansetron 4 mg disintegrating 4 mg PO Q6H PRN nausea and 02/05/23 05/05/23 Rx tablet vomiting #12 tabs pantoprazole 40 mg tablet,delayed 40 mg PO DAILY #7 tabs 02/05/23 05/05/23 Rx release (Protonix) sucralfate 1 gram tablet (Carafate) 1 g PO Q6H PRN abdominal pain #12 02/05/23 05/05/23 Rx tabs pregabalin 75 mg capsule (Lyrica) 75 mg PO TID #270 caps 03/19/23 05/05/23 Rx hydrocodone 5 mg-acetaminophen 325 1.5 tab PO QID PRN pain 03/27/23 05/05/23 History mg tablet hydrocodone 5 mg-acetaminophen 325 1 tab PO BID PRN pain #180 tabs 04/03/23 05/05/23 Rx mg tablet hydrocodone 5 mg-acetaminophen 325 1.5 tab PO QID PRN pain #180 tabs 04/07/23 05/05/23 Rx mg tablet hydrocodone 5 mg-acetaminophen 325 1.5 tab PO QID PRN pain #180 tabs 05/01/23 05/05/23 Rx mg tablet Allergies Allergy/AdvReac Type Severity Reaction Status Date / Time tizanidine [From Zanaflex] Allergy Unknown Verified 05/05/23 08:22 acetaminophen [From Percocet] AdvReac Mild Vomiting Verified 05/05/23 08:22 cyclobenzaprine AdvReac Mild Hallucinati Verified 05/05/23 08:22 [From Flexeril] ng oxycodone [From Percocet] AdvReac Mild Vomiting Verified 05/05/23 08:22 tramadol AdvReac Mild Vomiting Verified 05/05/23 08:22 Exam Narrative Exam Narrative: Psych-alert and oriented x 3. Attentive and appropriate, constitutionally normal, displays normal mood and affect per situation. There are no obvious deficits in memory, reasoning, or intellect.? Skin-no obvious rashes, bruising, erythema noted to the patient's area of pain.? Extremities- extremities are warm with minimal edema and palpable pulses. Lumbar-tenderness to palpation noted in the lumbar spine and paraspinal musculature. Pain is elicited with flexion, extension, and lateral rotation of the lumbar spine. Range of motion is diminished with these motions. Facet susan ding maneuvers are positive..? Strength-noted to be unremarkable with the exception of decreased strength rated at 4 out of 5 in bilateral quadriceps femoris, anterior tibialis. Sensory-no notable sensory deficits in the bilateral lower extremities to touch or pinprick in all dermatomal distributions with the exception to decreased sensation to the bilateral L3, 4, 5 dermatomal distribution Coordination remains intact.? Gait remains mildly antalgic Assessment and Plan Assessment and Plan (1) Lumbar stenosis with neurogenic claudication: (2) Lumbar radiculopathy: (3) Lumbar spondylosis: (4) Chronic pain syndrome: (5) Chronic prescription opiate use: Assessment and Plan: I have refilled the patient's opioid prescriptions at the above noted dose and schedule.? I feel these medications are improving the patient's quality of life and allow them to tolerate activities of daily living as well as participate in recreational activity.? The patient does not report intolerable side effects. The patient is NOT opioid naive and non-pharmacologic and non-opioid treatment has failed to significantly relieve the patient's pain and improve functionality. The patient has a diagnosis that is related to a somatic or visceral pain etiology. ? ?? I reviewed with the patient the potential risks and side effects with the use of? opioid medications including but not limited to respiratory depression,? sedation, and even . I verified the patient has access to naloxone should? these effects occur. I advised the patient to avoid the use of any other? sedation substances including alcohol, THC, and benzodiazepines while? taking opioid medications due to the risk of compounding side effects and? detrimental outcomes. I reviewed the [employer], pain treatment agreement, urine? drug screen, and opioid start talking forms. The patient was advised to let? their family know they had Naloxone in case they would need to administer? the medication.? ?? A drug screen was completed within the last year, and no aberrancies were noted regarding their use of controlled substances. The patient understands they are subject to the terms and conditions of the pain contract that they have signed. ? ?? I have checked an [facility] report on this patient today and there are no aberrancies noted in the prescribing history.? Plan update xray of lumbar spine update MRI without contrast of lumbosacral spine increase lyrica to 100mg TID continue norco 5/325 1-1.5 tabs QID PRN moderate to severe pain narcan previously ordered and discussed f/u after imaging complete, consider Vertiflex
== END 2023-05-15 11:02 | disposition home or self-care (01) ==
LOC: PM 11:02
PROVIDERS: PCP Internal Medicine; Visit Provider Nurse Practitioner
DX: M48.062 Spinal stenosis, lumbar region with neurogenic claudication (principal); M54.16 Radiculopathy, lumbar region; M47.896 Other spondylosis, lumbar region; G89.4 Chronic pain syndrome; Z79.891 Long term (current) use of opiate analgesic
CPT/HCPCS: G0463

== ENCOUNTER 2023-06-03 12:25 | Outpatient (OUT) | payer MEDICARE, SELFPAY ==
--- NOTE | 2023-06-03 | MR_ITS ---
[place] [id number] Patient Name: GUILLERMINA GUADALUPE MRN: [id number] date: 1935 Sex: M Assigned Patient Location: MRI Current Patient Location: MRI Accession/Order Number: [id number] Exam Date: 06/03/2023 12:45 Report Date: 06/03/2023 15:15 At the request of: TEODORO ANDREA Procedure: MR lumbar spine wo con EXAM: MRI of the lumbar spine without IV gadolinium contrast. REASON FOR EXAM: lumbar stenosis COMPARISON: CT scan dated 02/05/2023 FINDINGS: No lumbar spine fractures, acute malalignment or acute abnormal marrow signal. No spinal canal mass, hematoma or fluid collection. Lumbar spine degenerative changes with multilevel disc space narrowing. L1-L2, and L2-L3 posterior disc osteophyte complexes. L3-L4 posterior disc disc osteophyte complex. Small right L4-5 subforaminal posterior disc protrusion. L5-S1 posterior disc extrusion. Mild L1-2 spinal canal stenosis. Mild L2-L3 spinal canal stenosis. Severe L3-L4 spinal canal stenosis. Mild L4-5 spinal canal stenosis. Moderate L5-S1 spinal canal stenosis. Mild right L1-L2 and L2-L3 neural foraminal stenoses. Moderate right L3-L4 neural foraminal stenosis. Mild right L4-5 neural foraminal stenosis. Moderate right L5-S1 neural foraminal stenosis. Mild left L2-L3 neural foraminal stenosis. Moderate left L3-L4 neural foraminal stenosis. Mild left L4-5 neural foraminal stenosis. Moderate left L5-S1 neural foraminal stenosis. Remainder unremarkable. MR/MR lumbar spine wo con IMPRESSION: 1. No acute lumbar spine abnormalities. 2. Severe L3-L4 spinal canal stenosis. 3. Moderate L5-S1 spinal canal stenosis. Electronically authenticated by: CONNIE PETERSON Date: 06/03/2023 15:15
--- NOTE | 2023-06-03 13:11 | XR_ITS ---
The [address] [address] Patient Name: GUILLERMINA GUADALUPE MRN: [id number] date: 1935 Sex: M Assigned Patient Location: MRI Current Patient Location: Accession/Order Number: [id number] Exam Date: 06/03/2023 13:44 Report Date: 06/04/2023 08:17 At the request of: TEODORO ANDREA Procedure: XR lumbar spine min 4V EXAMINATION: XR lumbar spine min 4V HISTORY: Lumbar Stenosis ; chronic lumbar pain COMPARISON: CT abdomen pelvis 02/05/2023 FINDINGS: BONES: Minimal grade 1 retrolisthesis of L1 on 2 and L2 on 3. Moderate degenerative facet arthropathy L3-4 through L5-S1. No fracture or bone lesion. DISC SPACES: Marked narrowing L1-2, L2-3, L3-4. Moderate narrowing L4-5. Relatively normal spacing and L5-S1. PARASPINOUS: Mild atherosclerotic disease of aorta. OTHER: Negative. XR/XR lumbar spine min 4V IMPRESSION: 1. Multilevel marked degenerative changes of lumbar spine; disc space narrowing appears to have progressed compared to 02/05/2023. Electronically authenticated by: BRISA SALAS Date: 06/04/2023 08:17
== END 2023-06-03 12:26 | disposition home or self-care (01) ==
LOC: MRI 12:25
PROVIDERS: PCP Internal Medicine; Visit Provider Nurse Practitioner
DX: M48.062 Spinal stenosis, lumbar region with neurogenic claudication (principal)
CPT/HCPCS: 72110; 72148

== ENCOUNTER 2023-06-09 13:22 | Outpatient (OUT) | payer MEDICARE, OTHER, SELFPAY ==
--- NOTE | 2023-06-09 15:32 | P.CN_ITS ---
Consult Note: HPI Data of Consult Patient: known to practice within the last 3 years Consult date: 06/09/23 Requesting Physician: Mallorie Joy MD Primary Care Provider: Shaikh Lexi MD Consult Narrative Reason for consult: Low back pain Narrative: 87yom who presents for assessment. worsening low back pain, weakness in bilateral legs. mri reviewed, significant for severe stenosis at l3-4, moderate stenosis at multiple other levels. continues on norco, which provides short term relief. denies adverse med side effects. cc:: CC: Mallorie Joy MD Review of Systems ROS Status of ROS 10 or more systems reviewed and unremarkable except as noted in history and below [facility] Medical History Acid reflux ?K21.9 - Gastro-esophageal reflux disease without esophagitis (ICD-10) Bladder cancer ?C67.9 - Malignant neoplasm of bladder, unspecified (ICD-10) CPAP (continuous positive airway pressure) dependence ?Z99.89 - Dependence on other enabling machines and devices (ICD-10) Diabetes 1.5, managed as type 2 ?E13.9 - Other specified diabetes mellitus without complications (ICD-10) DVT (deep venous thrombosis) ?I82.409 - Acute embolism and thrombosis of unspecified deep veins of unspecified lower extremity (ICD-10) Gout ?M10.9 - Gout, unspecified (ICD-10) Hearing deficit ?H91.90 - Unspecified hearing loss, unspecified ear (ICD-10) Hypercholesterolemia ?E78.00 - Pure hypercholesterolemia, unspecified (ICD-10) Hypertension ?I10 - Essential (primary) hypertension (ICD-10) Hypothyroid ?E03.9 - Hypothyroidism, unspecified (ICD-10) IBS (irritable bowel syndrome) ?K58.9 - Irritable bowel syndrome without diarrhea (ICD-10) Inguinal hernia ?K40.90 - Unilateral inguinal hernia, without obstruction or gangrene, not specified as recurrent (ICD-10) Kidney stone ?N20.0 - Calculus of kidney (ICD-10) Low back pain ?M54.50 - Low back pain, unspecified (ICD-10) Osteoarthritis ?M19.90 - Unspecified osteoarthritis, unspecified site (ICD-10) Presence of Watchman left atrial appendage closure device ?Z95.818 - Presence of other cardiac implants and grafts (ICD-10) Prostate cancer ?C61 - Malignant neoplasm of prostate (ICD-10) Retraction of blood clot ?I74.9 - Embolism and thrombosis of unspecified artery (ICD-10) Rheumatoid arthritis ?M06.9 - Rheumatoid arthritis, unspecified (ICD-10) Sleep apnea ?G47.30 - Sleep apnea, unspecified (ICD-10) Surgical History H/O arthroscopy of knee ?Z98.890 - Other specified postprocedural states (ICD-10) H/O neck surgery ?Z98.890 - Other specified postprocedural states (ICD-10) H/O transurethral resection of bladder tumor (TURBT) ?Z98.890 - Other specified postprocedural states (ICD-10) ?Z86.03 - Personal history of neoplasm of uncertain behavior (ICD-10) Previous back surgery ?Z98.890 - Other specified postprocedural states (ICD-10) S/P tonsillectomy and adenoidectomy ?Z90.89 - Acquired absence of other organs (ICD-10) Social History Smoking status: Never smoker Meds Home Medications and Allergies Home Medications Medication Instructions Recorded Confirmed Type acetaminophen 325 mg capsule 325 mg PO Q6H PRN pain 12/27/22 05/05/23 History albuterol sulfate 90 mcg/actuation 1 inh inhalation Q4H PRN shortness 12/27/22 05/05/23 History aerosol inhaler (ProAir HFA) of breath or wheezing allopurinol 300 mg tablet 300 mg PO .QD 12/27/22 05/05/23 History cholecalciferol (vitamin D3) 25 25 mcg PO DAILY 12/27/22 05/05/23 History mcg (1,000 unit) capsule (Vitamin D3) levothyroxine 50 mcg tablet 50 mcg PO .QD 12/27/22 05/05/23 History nitroglycerin 0.4 mg sublingual 0.4 mg sublingual Q5M PRN chest 12/27/22 05/05/23 History tablet (Nitrostat) pain potassium chloride 20 mEq 10 meq PO DAILY 12/27/22 05/05/23 History tablet,extended release (K-Tab) witch letitia-glycerin (hamamel) 1 pad topical DAILY PRN hemorrhoids 12/27/22 05/05/23 History topical pads (Hemorrhoidal Medicated topical pads) Lactobacillus rhamnosus GG 10 1 cap PO DAILY 01/09/23 05/05/23 History billion cell capsule (Culturelle) aspirin 81 mg capsule 81 mg PO DAILY 01/09/23 05/05/23 History calcium carbonate 500 mg calcium 500 mg PO TID 01/09/23 05/05/23 History (1,250 mg) tablet diltiazem HCl 180 mg 180 mg PO DAILY 01/09/23 05/05/23 History capsule,extended release 24 hr donepezil 10 mg tablet (Aricept) 10 mg PO DAILY 01/09/23 05/05/23 History dorzolamide-timolol (PF) 2 %-0.5 % 1 drp ophthalmic (eye) BID 01/09/23 05/05/23 History eye drops in a dropperette famotidine 20 mg tablet 20 mg PO DAILY 01/09/23 05/05/23 History ferrous sulfate 325 mg (65 mg 325 mg PO TID 01/09/23 05/05/23 History iron) tablet fluticasone propionate 50 1 spray intranasal DAILY PRN nasal 01/09/23 05/05/23 History mcg/actuation nasal congestion spray,suspension (Flonase Allergy Relief) furosemide 20 mg tablet 20 mg PO QAM 01/09/23 05/05/23 History hydrocortisone 2.5 % topical cream 1 applic topical TID PRN itching 01/09/23 05/05/23 History losartan 100 mg tablet 100 mg PO DAILY 01/09/23 05/05/23 History magnesium oxide,aspartate,citr mg PO 01/09/23 History metoprolol tartrate 25 mg tablet 25 mg PO BID 01/09/23 05/05/23 History [id number] 300 mcg-K 60 1 tab PO DAILY 01/09/23 05/05/23 History mcg-lycop 600 mcg-lutein 300 mcg tablet (Centrum Silver Men) psyllium husk 0.4 gram capsule 0.4 g PO DAILY 01/09/23 05/05/23 History (Metamucil) tamsulosin 0.4 mg capsule (Flomax) 0.4 mg PO DAILY 01/09/23 05/05/23 History amlodipine 5 mg tablet 5 mg PO DAILY 01/10/23 05/05/23 History atorvastatin 20 mg tablet 20 mg PO DAILY 01/10/23 05/05/23 History baclofen 10 mg tablet 10 mg PO TID PRN muscle spasm 01/10/23 05/05/23 History ondansetron 4 mg disintegrating 4 mg PO Q6H PRN nausea and 02/05/23 05/05/23 Rx tablet vomiting #12 tabs pantoprazole 40 mg tablet,delayed 40 mg PO DAILY #7 tabs 02/05/23 05/05/23 Rx release (Protonix) sucralfate 1 gram tablet (Carafate) 1 g PO Q6H PRN abdominal pain #12 02/05/23 05/05/23 Rx tabs hydrocodone 5 mg-acetaminophen 325 1.5 tab PO QID PRN pain 03/27/23 05/05/23 History mg tablet hydrocodone 5 mg-acetaminophen 325 1 tab PO BID PRN pain #180 tabs 04/03/23 05/05/23 Rx mg tablet hydrocodone 5 mg-acetaminophen 325 1.5 tab PO QID PRN pain #180 tabs 04/07/23 05/05/23 Rx mg tablet hydrocodone 5 mg-acetaminophen 325 1.5 tab PO QID PRN pain #180 tabs 05/01/23 05/05/23 Rx mg tablet glipizide 5 mg tablet 5 mg PO DAILY 05/15/23 05/15/23 History pregabalin 100 mg capsule (Lyrica) 100 mg PO TID 05/15/23 05/15/23 History hydrocodone 5 mg-acetaminophen 325 1 tab PO QID PRN pain #120 tabs 06/04/23 Rx mg tablet Allergies Allergy/AdvReac Type Severity Reaction Status Date / Time tizanidine [From Zanaflex] Allergy Unknown Verified 05/05/23 08:22 acetaminophen [From Percocet] AdvReac Mild Vomiting Verified 05/05/23 08:22 cyclobenzaprine AdvReac Mild Hallucinati Verified 05/05/23 08:22 [From Flexeril] ng oxycodone [From Percocet] AdvReac Mild Vomiting Verified 05/05/23 08:22 tramadol AdvReac Mild Vomiting Verified 05/05/23 08:22 Exam Narrative Exam Narrative: Psych-alert and oriented x 3. Attentive and appropriate, constitutionally normal, displays normal mood and affect per situation.? There are no obvious deficits in memory, reasoning, or intellect.? Skin-no obvious rashes, bruising, erythema noted to the patient's area of pain. Extremities- extremities are warm with minimal edema and palpable pulses. Lumbar-no significant tenderness to palpation noted in the lumbar spine and paraspinal musculature.? Pain is elicited with extension, and lateral rotation of the lumbar spine. Range of motion is slightly diminished with these motions due to pain. Facet loading maneuvers are positive bilaterally and do appear to be concordant with the patient's normal complaints of pain.? Coordination remains intact.? Gait remains non-antalgic. Assessment and Plan Assessment and Plan (1) Lumbar stenosis with neurogenic claudication: (2) Lumbar spondylosis: Plan 87yom who presents for assessment. failed conservative measures, as noted. imaging reviewed, as noted. given symptoms and imaging, will have him trial butrans patch 5mcg/hr in addition to norco. he is in agreement. follow up in 6 weeks.
== END 2023-06-09 13:23 ==
LOC: PM 13:22
PROVIDERS: PCP Internal Medicine; Visit Provider Anesthesiology
DX: M48.062 Spinal stenosis, lumbar region with neurogenic claudication (principal); M47.816 Spondylosis without myelopathy or radiculopathy, lumbar region
CPT/HCPCS: G0463

== ENCOUNTER 2023-06-10 10:27 | Observation (INO) | payer MEDICARE, SELFPAY ==
[2023-06-10] VITALS (10 sets, daily range): BP systolic 111–144; BP diastolic 69–77; PULSE 66–93; RESP 16–20; TEMP 36.5–36.6; O2SAT 93–100; BMI 25.8; BMI 26.8
--- NOTE | 2023-06-10 10:50 | ECG_ITS ---
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
--- NOTE | 2023-06-10 10:51 | XR_ITS ---
The [address] [address] Patient Name: GUILLERMINA GUADALUPE MRN: [id number] date: 1935 Sex: M Assigned Patient Location: ER Current Patient Location: ER Accession/Order Number: [id number] Exam Date: 06/10/2023 11:00 Report Date: 06/10/2023 11:27 At the request of: MARTY BEAR Procedure: XR chest 1V EXAM: XR chest 1V HISTORY: peripheral edema COMPARISON: Chest study dated 02/05/2023 TECHNIQUE: AP view of the chest was obtained. FINDINGS: Heart and mediastinal contours are unremarkable in appearance. No acute infiltrate or consolidations are seen. No obvious pneumothorax. Bony structures appear grossly intact. Tiny 2 mm opacity overlying the left lower neck/facial region is nonspecific and may be due to overlying artifact, correlate for any history of tiny opaque foreign body in the area. XR/XR chest 1V IMPRESSION: No acute process seen in the chest. Electronically authenticated by: ABDELRAHMAN FELIZ Date: 06/10/2023 11:27
--- NOTE | 2023-06-10 10:52 | ED_ITS ---
HPI - General Adult General Chief complaint: Weakness Stated complaint: URINARY RETENTION Time Seen by Provider: 06/10/23 10:28 Mode of arrival: Wheelchair History of Present Illness HPI narrative: [age] male presents to Emergency Department with family for swelling in his legs and trouble walking. He was at home by himself but his family lives next door to him. They check in on him frequently. He hasn't had a fall recently. He did have a pain management appointment yesterday and his MRI showed severe spinal stenosis. He is on some pain medication and he supposed to elevate his legs but he has trouble elevating his legs because of his back. He felt a little bit short of breath during the night but isn't anymore. No fever cough or chest pain. Related Data Home Medications Medication Instructions Recorded Confirmed acetaminophen 325 mg capsule 325 mg PO Q6H PRN pain 12/27/22 05/05/23 albuterol sulfate 90 mcg/actuation 1 inh inhalation Q4H PRN shortness 12/27/22 05/05/23 aerosol inhaler (ProAir HFA) of breath or wheezing allopurinol 300 mg tablet 300 mg PO .QD 12/27/22 05/05/23 cholecalciferol (vitamin D3) 25 25 mcg PO DAILY 12/27/22 05/05/23 mcg (1,000 unit) capsule (Vitamin D3) levothyroxine 50 mcg tablet 50 mcg PO .QD 12/27/22 05/05/23 nitroglycerin 0.4 mg sublingual 0.4 mg sublingual Q5M PRN chest 12/27/22 05/05/23 tablet (Nitrostat) pain potassium chloride 20 mEq 10 meq PO DAILY 12/27/22 05/05/23 tablet,extended release (K-Tab) witch letitia-glycerin (hamamel) 1 pad topical DAILY PRN hemorrhoids 12/27/22 05/05/23 topical pads (Hemorrhoidal Medicated topical pads) Lactobacillus rhamnosus GG 10 1 cap PO DAILY 01/09/23 05/05/23 billion cell capsule (Culturelle) aspirin 81 mg capsule 81 mg PO DAILY 01/09/23 05/05/23 calcium carbonate 500 mg calcium 500 mg PO TID 01/09/23 05/05/23 (1,250 mg) tablet diltiazem HCl 180 mg 180 mg PO DAILY 01/09/23 05/05/23 capsule,extended release 24 hr donepezil 10 mg tablet (Aricept) 10 mg PO DAILY 01/09/23 05/05/23 dorzolamide-timolol (PF) 2 %-0.5 % 1 drp ophthalmic (eye) BID 01/09/23 05/05/23 eye drops in a dropperette famotidine 20 mg tablet 20 mg PO DAILY 01/09/23 05/05/23 ferrous sulfate 325 mg (65 mg 325 mg PO TID 01/09/23 05/05/23 iron) tablet fluticasone propionate 50 1 spray intranasal DAILY PRN nasal 01/09/23 05/05/23 mcg/actuation nasal congestion spray,suspension (Flonase Allergy Relief) furosemide 20 mg tablet 20 mg PO QAM 01/09/23 05/05/23 hydrocortisone 2.5 % topical cream 1 applic topical TID PRN itching 01/09/23 05/05/23 losartan 100 mg tablet 100 mg PO DAILY 01/09/23 05/05/23 magnesium oxide,aspartate,citr mg PO 01/09/23 metoprolol tartrate 25 mg tablet 25 mg PO BID 01/09/23 05/05/23 [id number] 300 mcg-K 60 1 tab PO DAILY 01/09/23 05/05/23 mcg-lycop 600 mcg-lutein 300 mcg tablet (Centrum Silver Men) psyllium husk 0.4 gram capsule 0.4 g PO DAILY 01/09/23 05/05/23 (Metamucil) tamsulosin 0.4 mg capsule (Flomax) 0.4 mg PO DAILY 01/09/23 05/05/23 amlodipine 5 mg tablet 5 mg PO DAILY 01/10/23 05/05/23 atorvastatin 20 mg tablet 20 mg PO DAILY 01/10/23 05/05/23 baclofen 10 mg tablet 10 mg PO TID PRN muscle spasm 01/10/23 05/05/23 hydrocodone 5 mg-acetaminophen 325 1.5 tab PO QID PRN pain 03/27/23 05/05/23 mg tablet glipizide 5 mg tablet 5 mg PO DAILY 05/15/23 05/15/23 pregabalin 100 mg capsule (Lyrica) 100 mg PO TID 05/15/23 05/15/23 Previous Rx's Medication Instructions Recorded ondansetron 4 mg disintegrating 4 mg PO Q6H PRN nausea and 02/05/23 tablet vomiting #12 tabs pantoprazole 40 mg tablet,delayed 40 mg PO DAILY #7 tabs 02/05/23 release (Protonix) sucralfate 1 gram tablet (Carafate) 1 g PO Q6H PRN abdominal pain #12 02/05/23 tabs hydrocodone 5 mg-acetaminophen 325 1 tab PO BID PRN pain #180 tabs 04/03/23 mg tablet hydrocodone 5 mg-acetaminophen 325 1.5 tab PO QID PRN pain #180 tabs 04/07/23 mg tablet hydrocodone 5 mg-acetaminophen 325 1.5 tab PO QID PRN pain #180 tabs 05/01/23 mg tablet hydrocodone 5 mg-acetaminophen 325 1 tab PO QID PRN pain #120 tabs 06/04/23 mg tablet Allergies Allergy/AdvReac Type Severity Reaction Status Date / Time tizanidine [From Zanaflex] Allergy Unknown Verified 05/05/23 08:22 acetaminophen [From Percocet] AdvReac Mild Vomiting Verified 05/05/23 08:22 cyclobenzaprine AdvReac Mild Hallucinati Verified 05/05/23 08:22 [From Flexeril] ng oxycodone [From Percocet] AdvReac Mild Vomiting Verified 05/05/23 08:22 tramadol AdvReac Mild Vomiting Verified 05/05/23 08:22 Review of Systems ROS Narrative A ten point review of systems is negative except as noted above. [facility] Medical History Acid reflux ?K21.9 - Gastro-esophageal reflux disease without esophagitis (ICD-10) Bladder cancer ?C67.9 - Malignant neoplasm of bladder, unspecified (ICD-10) CPAP (continuous positive airway pressure) dependence ?Z99.89 - Dependence on other enabling machines and devices (ICD-10) Diabetes 1.5, managed as type 2 ?E13.9 - Other specified diabetes mellitus without complications (ICD-10) DVT (deep venous thrombosis) ?I82.409 - Acute embolism and thrombosis of unspecified deep veins of unspecified lower extremity (ICD-10) Gout ?M10.9 - Gout, unspecified (ICD-10) Hearing deficit ?H91.90 - Unspecified hearing loss, unspecified ear (ICD-10) Hypercholesterolemia ?E78.00 - Pure hypercholesterolemia, unspecified (ICD-10) Hypertension ?I10 - Essential (primary) hypertension (ICD-10) Hypothyroid ?E03.9 - Hypothyroidism, unspecified (ICD-10) IBS (irritable bowel syndrome) ?K58.9 - Irritable bowel syndrome without diarrhea (ICD-10) Inguinal hernia ?K40.90 - Unilateral inguinal hernia, without obstruction or gangrene, not specified as recurrent (ICD-10) Kidney stone ?N20.0 - Calculus of kidney (ICD-10) Low back pain ?M54.50 - Low back pain, unspecified (ICD-10) Osteoarthritis ?M19.90 - Unspecified osteoarthritis, unspecified site (ICD-10) Presence of Watchman left atrial appendage closure device ?Z95.818 - Presence of other cardiac implants and grafts (ICD-10) Prostate cancer ?C61 - Malignant neoplasm of prostate (ICD-10) Retraction of blood clot ?I74.9 - Embolism and thrombosis of unspecified artery (ICD-10) Rheumatoid arthritis ?M06.9 - Rheumatoid arthritis, unspecified (ICD-10) Sleep apnea ?G47.30 - Sleep apnea, unspecified (ICD-10) Surgical History H/O arthroscopy of knee ?Z98.890 - Other specified postprocedural states (ICD-10) H/O neck surgery ?Z98.890 - Other specified postprocedural states (ICD-10) H/O transurethral resection of bladder tumor (TURBT) ?Z98.890 - Other specified postprocedural states (ICD-10) ?Z86.03 - Personal history of neoplasm of uncertain behavior (ICD-10) Previous back surgery ?Z98.890 - Other specified postprocedural states (ICD-10) S/P tonsillectomy and adenoidectomy ?Z90.89 - Acquired absence of other organs (ICD-10) Social History Smoking status: Never smoker Exam Narrative Exam Narrative: Nurses note and vital signs reviewed and patient is not hypoxic. General: The patient appears well and in no apparent distress. Patient is resting comfortably on cart. Skin: Warm, dry, no pallor noted. There is no rash noted. Head: Normocephalic, atraumatic Eye: Normal conjunctiva, no drainage Ears, Nose, Mouth, and Throat: oral mucosa is moist. Nares patent. Cardiovascular: Regular Rate and Rhythm Respiratory: Patient is in no distress, no accessory muscle use, lungs are clear to auscultation, no wheezing, rales or rhonchi GI: soft and nontender Musculoskeletal: significant edema in his feet and ankles and lower legs. He has some excoriations but there is no purulent drainage or erythema to suggest an infection. Neurological: A&O x4, normal speech Psychiatric: Cooperative Constitutional Vital Signs, click to edit/add: Last Vital Signs Pulse 69 06/10/23 10:33 Resp 20 06/10/23 10:33 BP 111/69 06/10/23 10:33 Pulse Ox 98 06/10/23 10:33 O2 Del Method Room Air 06/10/23 10:33 Course Vital Signs Vital signs: Vital Signs Pulse Rate 69 06/10/23 10:33 Respiratory Rate 20 06/10/23 10:33 Blood Pressure 111/69 06/10/23 10:33 Pulse Oximetry 98 06/10/23 10:33 Oxygen Delivery Method Room Air 06/10/23 10:33 Pulse Rate 69 06/10/23 10:33 Respiratory Rate 20 06/10/23 10:33 Blood Pressure 111/69 06/10/23 10:33 Pulse Oximetry 98 06/10/23 10:33 Oxygen Delivery Method Room Air 06/10/23 10:33 Medical Decision Making [facility] Narrative Medical decision making narrative: laboratory analysis is nonspecific and chest x-ray is negative. He has significant peripheral edema and is unable to walk. He is being admitted. Findings are discussed with the patient and his family. Differential Diagnosis Differential Diagnosis: peripheral edema, DAVID, heart failure Lab Data Lab results reviewed: Yes I reviewed the patient's lab results Labs: Lab Results 06/10/23 06/10/23 Range/Units 11:03 11:27 WBC 3.7 L (4.0-11.0) 10^3/uL RBC 3.95 L (4.70-6.10) 10^6/uL Hgb 13.2 L (14.0-18.0) g/dL Hct 39.2 L (42.0-54.0) % MCV 99.2 H (80.0-94.0) fL MCH 33.4 (25.9-34.0) pg MCHC 33.7 (29.9-35.2) g/dL RDW 14.8 (11.0-15.0) % Plt Count 126 L (150-450) 10^3/uL MPV 9.9 (9.5-13.5) fL Neut % (Auto) 67.3 (43.0-75.0) % Lymph % (Auto) 18.5 L (20.5-60.0) % [place] % (Auto) 11.3 (1.7-12.0) % Eos % (Auto) 0.8 L (0.9-7.0) % Baso % (Auto) 0.5 (0.2-2.0) % Neut # (Auto) 2.5 (1.4-6.5) 10^3/uL Lymph # (Auto) 0.7 L (1.2-3.8) 10^3/uL [place] # (Auto) 0.4 (0.3-0.8) 10^3/uL Eos # (Auto) 0.0 (0.0-0.7) 10^3/uL Baso # (Auto) 0.0 (0.0-0.1) 10^3/uL Abs Immat Gran (auto) 0.06 H (0.00-0.03) 10^3/uL Imm/Tot Granulo (auto) 1.6 H (0.0-0.5) % Sodium 141 (136-145) mmol/L Potassium 3.3 L (3.5-5.1) mmol/L Chloride 105 (98-107) mmol/L Carbon Dioxide 27.5 (21.0-32.0) mmol/L Anion Gap 11.8 BUN 16.0 (7.0-18.0) mg/dL Creatinine 0.91 (0.70-1.30) mg/dL Est GFR ( Amer) >60 (>=60) Est GFR (Non-Af Amer) >60 (>=60) BUN/Creatinine Ratio 17.6 Glucose 204 H (74-106) mg/dL Calcium 8.2 L (8.5-10.1) mg/dL Troponin I High Sens 12.9 (4.0-76.1) pg/mL NT-Pro-B Natriuret Pep 191.0 (<=1800.0) pg/mL Urine Color Lt. yellow (YELLOW) Urine Clarity Clear (CLEAR) Urine pH 6.0 (5.0-9.0) Ur Specific [place] 1.010 (1.005-1.025) Urine Protein Negative (NEG/TRACE) mg/dL Urine Glucose (UA) >=1000 A (NEGATIVE) mg/dL Urine Ketones Negative (NEGATIVE) mg/dL Urine Occult Blood Negative (NEGATIVE) Urine Nitrite Negative (NEGATIVE) Urine Bilirubin Negative (NEGATIVE) Urine Urobilinogen 0.2 (0.2-1.0) EU/dL Ur Leukocyte Esterase Negative (NEGATIVE) Imaging Data Chest x-ray: Radiologist's impression: Procedure: XR chest 1V EXAM: XR chest 1V HISTORY: peripheral edema COMPARISON: Chest study dated 02/05/2023 TECHNIQUE: AP view of the chest was obtained. FINDINGS: Heart and mediastinal contours are unremarkable in appearance. No acute infiltrate or consolidations are seen. No obvious pneumothorax. Bony structures appear grossly intact. Tiny 2 mm opacity overlying the left lower neck/facial region is nonspecific and may be due to overlying artifact, correlate for any history of tiny opaque foreign body in the area. IMPRESSION: No acute process seen in the chest. Electronically authenticated by: ABDELRAHMAN FELIZ Date: 06/10/2023 11:27 Discharge Plan Discharge Chief Complaint: Weakness Clinical Impression: Peripheral edema Patient Disposition: Admitted as Observation Time of Disposition Decision: 11:58 Condition: Good Prescriptions / Home Meds: No Action donepezil [Aricept] 10 mg tablet 10 mg PO DAILY aspirin 81 mg capsule 81 mg PO DAILY calcium carbonate 500 mg calcium (1,250 mg) tablet 500 mg PO TID Centrum Silver Men 300-600-300 mcg tablet 1 tab PO DAILY Culturelle 10 billion cell capsule 1 cap PO DAILY diltiazem HCl 180 mg capsule,extended release 24hr 180 mg PO DAILY dorzolamide-timolol (PF) 2-0.5 % dropperette 1 drp ophthalmic (eye) BID ferrous sulfate 325 mg (65 mg iron) tablet 325 mg PO TID famotidine 20 mg tablet 20 mg PO DAILY tamsulosin [Flomax] 0.4 mg capsule 0.4 mg PO DAILY fluticasone propionate [Flonase Allergy Relief] 50 mcg/actuation spray,suspension 1 spray intranasal DAILY PRN (Reason: nasal congestion) Rx Instructions: administer into each nostril furosemide 20 mg tablet 20 mg PO QAM hydrocortisone 2.5 % cream 1 applic topical TID PRN (Reason: itching) losartan 100 mg tablet 100 mg PO DAILY magnesium oxide,aspartate,citr 400 mg magnesium capsule PO psyllium husk [Metamucil] 0.4 gram capsule 0.4 g PO DAILY metoprolol tartrate 25 mg tablet 25 mg PO BID amlodipine 5 mg tablet 5 mg PO DAILY atorvastatin 20 mg tablet 20 mg PO DAILY baclofen 10 mg tablet 10 mg PO TID PRN (Reason: muscle spasm) hydrocodone-acetaminophen 5-325 mg tablet 1.5 tab PO QID PRN (Reason: pain) Qty: 180 0RF pregabalin [Lyrica] 100 mg capsule 100 mg PO TID glipizide 5 mg tablet 5 mg PO DAILY hydrocodone-acetaminophen 5-325 mg tablet 1 tab PO QID PRN (Reason: pain) Qty: 120 0RF sucralfate [Carafate] 1 gram tablet 1 g PO Q6H PRN (Reason: abdominal pain) Qty: 12 0RF pantoprazole [Protonix] 40 mg tablet,delayed release (DR/EC) 40 mg PO DAILY Qty: 7 0RF ondansetron 4 mg tablet,disintegrating 4 mg PO Q6H PRN (Reason: nausea and vomiting) Qty: 12 0RF hydrocodone-acetaminophen 5-325 mg tablet 1 tab PO BID PRN (Reason: pain) Qty: 180 0RF Rx Instructions: take 1.5 tabs 4 times per day as needed for pain hydrocodone-acetaminophen 5-325 mg tablet 1.5 tab PO QID PRN (Reason: pain) Qty: 180 0RF Rx Instructions: take 1.5 tabs 4 times per day hydrocodone-acetaminophen 5-325 mg tablet 1.5 tab PO QID PRN (Reason: pain) acetaminophen 325 mg capsule 325 mg PO Q6H PRN (Reason: pain) allopurinol 300 mg tablet 300 mg PO .QD levothyroxine 50 mcg tablet 50 mcg PO .QD cholecalciferol (vitamin D3) [Vitamin D3] 25 mcg (1,000 unit) capsule 25 mcg PO DAILY Hemorrhoidal Medicated Pads, Medicated 1 pad topical DAILY PRN (Reason: hemorrhoids) albuterol sulfate [ProAir HFA] 90 mcg/actuation HFA aerosol inhaler 1 inh inhalation Q4H PRN (Reason: shortness of breath or wheezing) potassium chloride [K-Tab] 20 mEq tablet extended release 10 meq PO DAILY nitroglycerin [Nitrostat] 0.4 mg tablet, sublingual 0.4 mg sublingual Q5M PRN (Reason: chest pain) Rx Instructions: do not exceed 3 doses per episode Referrals: Shaikh Elliott MD [Primary Care Provider] - 1 week
[2023-06-10 11:23] LABS: Basophils Percent Auto 0.5 % (0.2-2.0); Eosinophils Percent Auto 0.8 % (0.9-7.0); Hematocrit 39.2 % (42.0-54.0); Hemoglobin 13.2 g/dL (14.0-18.0); Immature Granulocytes Abs Auto 0.06 10^3/uL (0.00-0.03); Immature Granulocytes Pct Auto 1.6 % (0.0-0.5); Lymphocytes Absolute Auto 0.7 10^3/uL (1.2-3.8); Lymphocytes Percent Auto 18.5 % (20.5-60.0); Mean Corpuscular HGB Conc 33.7 g/dL (29.9-35.2); Mean Corpuscular Hemoglobin 33.4 pg (25.9-34.0); Mean Corpuscular Volume 99.2 fL (80.0-94.0); Mean Platelet Volume 9.9 fL (9.5-13.5); Monocytes Absolute Auto 0.4 10^3/uL (0.3-0.8); Monocytes Percent Auto 11.3 % (1.7-12.0); Neutrophils Absolute Auto 2.5 10^3/uL (1.4-6.5); Neutrophils Percent Auto 67.3 % (43.0-75.0); Platelet Count 126 10^3/uL (150-450); Red Blood Count 3.95 10^6/uL (4.70-6.10); Red Cell Distribution Width 14.8 % (11.0-15.0); White Blood Count 3.7 10^3/uL (4.0-11.0)
[2023-06-10 11:34] LABS: Troponin I High Sensitivity 12.9 pg/mL (4.0-76.1)
[2023-06-10 11:36] LABS: Anion Gap 11.8; BUN Creatinine Ratio 17.6; Calcium 8.2 mg/dL (8.5-10.1); Carbon Dioxide 27.5 mmol/L (21.0-32.0); Chloride 105 mmol/L (98-107); Estimated GFR (African America >60 (>=60); Estimated GFR (Non-African Ame >60 (>=60); Glucose 204 mg/dL (74-106); Potassium 3.3 mmol/L (3.5-5.1); Sodium 141 mmol/L (136-145)
[2023-06-10 11:37] LABS: Bilirubin Urine NEGATIVE (NEGATIVE); Blood Urine NEGATIVE (NEGATIVE); Clarity Urine CLEAR (CLEAR); Color Urine LT. YELLOW (YELLOW); Glucose Urine UA >=1000 mg/dL (NEGATIVE); Ketones Urine NEGATIVE (NEGATIVE); Leukocyte Esterase Urine NEGATIVE (NEGATIVE); Nitrite Urine NEGATIVE (NEGATIVE); Protein Urine NEGATIVE (NEG/TRACE); Urobilinogen Urine 0.2 EU/dL (0.2-1.0)
[2023-06-10 11:59] LABS: Bacteria Urine NONE SEEN #/HPF (NONE SEEN); Cast Seen? NONE SEEN #/LPF (NONE SEEN); Crystals Seen? None Seen #/HPF (None Seen); Mucus Urine NONE SEEN (NONE SEEN); RBC Urine 0-2 #/HPF (0-2); Squamous Epithelial Cell Urine RARE #/LPF (NONE/RARE); WBC Urine NONE SEEN #/HPF (NONE SEEN)
--- NOTE | 2023-06-10 13:06 | CA_ITS ---
Patient Name: GUILLERMINA GUADALUPE MR#: [id number] : 1935 Exam Date: 06/10/2023 Ordering Doctor: ANJU FLYNN ECHOCARDIOGRAM REPORT PROCEDURE: CA ECHO DOPPLER COMPLETE INDICATIONS: Peripheral edema, r/o CHF COMPARISON: None. DESCRIPTION: COMPLETE ECHOCARDIOGRAM Real-time transthoracic echocardiography with 2D, M-mode, spectral and color flow Doppler performed. QUALITY: Technical quality was good. LEFT VENTRICLE: Normal chamber size. Left ventricular wall thickness is mildly increased. Thickened septal wall. LV EF: Global left ventricular systolic function is normal. Visual estimation of left ventricular ejection fraction is 60% DIASTOLIC: Normal diastolic function. ATRIAL SEPTUM: Inadequately visualized. LEFT ATRIUM: Normal chamber size. RIGHT ATRIUM: Normal chamber size. RIGHT VENTRICLE: Normal chamber size. Normal right ventricular systolic function. TRICUSPID VALVE: Normal mobility and thickness. No stenosis with trivial regurgitation. Mild pulmonary hypertension. RVSP 37mmHg MITRAL VALVE: Normal mobility and thickness. No evidence of mitral valve stenosis. There is no mitral annular calcification. Trivial mitral regurgitation. AORTIC VALVE: Normal trileaflet appearance. No visible sclerosis. Normal leaflet mobility. No evidence of aortic valve stenosis. No aortic regurgitation. AORTIC ROOT: Normal diameter and appearance. PULMONIC VALVE: Normal thickness and mobility. No stenosis. No regurgitation. PERICARDIUM: Anterior free space; trivial effusion versus fat pad. IVC: Collapses with inspirations. Normal size. CONCLUSION: 1. Global left ventricular systolic function is normal; visually estimated ejection fraction is 60 to 65% 2. Left ventricular wall thickness is mildly increased 3. The right ventricle is normal in size and systolic function 4. Mildly increased right ventricular systolic pressure; RVSP 37 mmHg 5. No significant valvular abnormalities 6. Anterior free space; trivial effusion versus fat pad Adult Echocardiography Procedure Report Left Ventricle LVEDD (3.7 - 5.6 cm): 4.37 cm LVESD (2.2 - 4.0 cm): 2.93 cm LVIVS thickness (0.6 - 1.2 cm): 1.64 cm LVPW thickness (0.5 - 1.0 cm): 1.18 cm e': 0.10 m/s E - e': 7.88 LVOT Max Gradient: 4.52 mm[Hg] LVOT Area (cm2): 1.06 m/s Peak Velocity (LVOT): 1.06 m/s Mean Velocity (LVOT): 0.62 m/s LVOT Diameter 2.10 cm Left Atrium LA Volume Index (2D A2C): 35.19 ml/m2 Left Atrium Systolic Dimension: 4.01 cm Mitral Valve MV E to A Ratio: 1.20 Mitral Valve A-Wave Peak Velocity: 0.65 m/s Mitral Valve E-Wave Peak Velocity: 0.78 m/s Right Ventricle RV Internal Diastolic Dimension: 4.38 cm Aorta AO Root Diam: 3.54 cm Ascending Ao Diam: 2.93 cm Aortic Valve AoV Area (Peak Americo): 2.38 cm2, 2.38 cm2 AoV Area (VTI): 2.71 cm2, 2.71 cm2 Peak Velocity(Antegrade Flow): 1.55 m/s Peak Gradient(Antegrade Flow): 9.57 mm[Hg] Mean Velocity(Antegrade Flow): 1.04 m/s Mean Gradient(Antegrade Flow): 4.93 mm[Hg] Velocity Time Integral: 34.95 cm Tricuspid Valve Peak Velocity (Regurgitant Flow): 2.83 m/s, 2.92 m/s, 2.97 m/s Pulmonic Valve Mean Gradient: 3.93 mm[Hg], 3.91 mm[Hg] Mean Velocity: 0.94 m/s, 0.93 m/s Peak Velocity: 1.39 m/s Peak Gradient: 7.48 mm[Hg], 8.03 mm[Hg] Right Atrium Right Atrium Systolic Pressure: 45.11 ml, 45.11 ml Dictated by: Nishi Cheney M.D. on 06/11/2023 at 09:39 Approved by: Nishi Cheney M.D. on 06/11/2023 at 09:45
--- NOTE | 2023-06-10 14:32 | US_ITS ---
The [address] [address] Patient Name: GUILLERMINA GAUDALUPE MRN: [id number] date: 1935 Sex: M Assigned Patient Location: [place] Current Patient Location: [place] Accession/Order Number: [id number] Exam Date: 06/10/2023 14:48 Report Date: 06/10/2023 15:40 At the request of: ANJU FLYNN Procedure: US venous doppler LE BI Ultrasound venous duplex scan, bilateral lower extremities CLINICAL: Bilateral lower extremity swelling TECHNIQUE: French-scale, color-flow, and Doppler examination of both legs was performed with and without provocative maneuvers. FINDINGS: Comparison: None. Sonographic examination of both lower extremity deep venous systems to include the common femoral veins, superficial femoral veins, and popliteal veins demonstrates normal compressibility, color-flow, phasic variation, and augmentation. The origins of the greater saphenous veins on both sides demonstrate normal compression, with normal color-flow at the origins of the proximal profunda femoris veins. There is compressibility of the posterior tibial and anterior tibial veins bilaterally. Peroneal veins not well seen. Normal compressibility of the small saphenous and greater saphenous veins in the calves. There is nonspecific subcutaneous edema of both lower extremities. In the right popliteal fossa is a 7.9 x 3.2 x 1.7 cm fluid collection. US/US venous doppler LE BI IMPRESSION: 1. Negative for deep venous thrombosis in either lower extremity. Negative for superficial venous thrombus. 2. Nonspecific subcutaneous edema of both calves. 3. 7.9 x 3.2 x 1.7 cm right popliteal fossa fluid collection consistent with a Rivera's cyst. Electronically authenticated by: JOSH BARROS Date: 06/10/2023 15:40
--- NOTE | 2023-06-10 14:52 | CM.NOTE ---
Medicare Outpatient Observation Notice discussed with pt, pt verbalizes understanding and signs paper. Original given to pt and copy placed on pt's chart.
--- NOTE | 2023-06-10 15:29 | P.HP_ITS ---
<Statement entered by Shaikh Lexi MD - 06/10/23 23:07> This documentation has been reviewed and approved. Patient seen and examined in ED. Case dicussed with SHARON Charles. Agree with treatment plan. Patient presents with worsening LBP and b/l LE edema. He also reported inability to avoid for past 12 hours Exam: Laying in bed, comfortable CTA b/l, no wheezing, rhonchi Normal HR, S1,S2 +3 LE Edema, no concern for cellulitis Assessment and Plan: Acute on chronic diastolic HF H/x of Afib s/p watchman T2 DM Chronic LBP due to spinal stenosis Urinary retention due to BPH Patient admitted for volume overload and started on Lasix. PT/OT eval for LBP. Will attempt to control his LBP. 2D ECHO to assess cardiac structure. Further care as discussed above in long's note H&P: HPI History of Present Illness Chief complaint: URINARY RETENTION, PERIPHERAL EDEMA Narrative: 06/10/23 4509 This is an 87-year-old male patient with a past medical history as outlined below including DM 2, severe lumbar stenosis and chronic lumbar pain, BPH, hypertension, and hyperlipidemia; who presented to the ED complaining of back pain and severe BLE swelling. The patient is a poor historian cannot give a clear history of events, however the ED documentation notes that patient's family was concerned about his severe swelling and brought him to the ED for further evaluation. Work-up in the ED was mostly unremarkable with only mild hypokalemia noted on labs and a clear CXR. Patient is already following with the pain clinic due to his severe back pain and known lumbar stenosis. The patient also was unable to urinate in the ED and a Dodge catheter was placed with an immediate return of 400 mL indicating at least mild urinary retention. Bilateral lower extremity is significant and apparently new. He is being admitted to the hospitalist service in observation due to peripheral edema and patient's reported inability to walk due to his back pain. At the time of my exam the patient is resting comfortably in bed sleeping, but arouses to voice. He continues to complain of back pain but does not appear to be in any significant distress at the time of my exam. The patient's family reported to nursing that he has had a history of DVTs in the past and they are concerned for DVTs recurring. We will obtain a venous Doppler study and a 2D echo to assess for worsening heart failure. I cannot find any previous echo in our system, but the patient does take furosemide daily. We will give IV push doses of furosemide and replete his potassium. In addition we will hold his home amlodipine for now as this could also contribute to lower extremity swelling. Review of Systems ROS Status of ROS 10 or more systems reviewed and unremark able except as noted in history and below [facility] Medical History (Updated 06/10/23 @ 15:40 by Long Luz NP) Lumbar stenosis with neurogenic claudication ?M48.062 - Spinal stenosis, lumbar region with neurogenic claudication (ICD- 10) Osteoarthritis of right knee ?M17.11 - Unilateral primary osteoarthritis, right knee (ICD-10) Chronic pain syndrome ?G89.4 - Chronic pain syndrome (ICD-10) Chronic prescription opiate use ?Z79.891 - terminal manager (current) use of opiate analgesic (ICD-10) Osteoarthritis, 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 - Primary osteoarthritis, unspecified shoulder (ICD-10) Right shoulder pain ?M25.511 - Pain in right shoulder (ICD-10) Lumbar radiculopathy ?M54.16 - Radiculopathy, lumbar region (ICD-10) Abdominal pain ?R10.9 - Unspecified abdominal pain (ICD-10) Nausea & vomiting ?R11.2 - Nausea with vomiting, unspecified (ICD-10) Esophagitis ?K20.90 - Esophagitis, unspecified without bleeding (ICD-10) Muscle spasm ?M62.838 - Other muscle spasm (ICD-10) Lumbar stenosis ?M48.061 - Spinal stenosis, lumbar region without neurogenic claudication (ICD-10) Lumbar spondylosis ?M47.816 - Spondylosis without myelopathy or radiculopathy, lumbar region (ICD-10) Retraction of blood clot ?I74.9 - Embolism and thrombosis of unspecified artery (ICD-10) Inguinal hernia ?K40.90 - Unilateral inguinal hernia, without obstruction or gangrene, not specified as recurrent (ICD-10) Presence of Watchman left atrial appendage closure device ?Z95.818 - Presence of other cardiac implants and grafts (ICD-10) Low back pain ?M54.50 - Low back pain, unspecified (ICD-10) Rheumatoid arthritis ?M06.9 - Rheumatoid arthritis, unspecified (ICD-10) Osteoarthritis ?M19.90 - Unspecified osteoarthritis, unspecified site (ICD-10) Gout ?M10.9 - Gout, unspecified (ICD-10) DVT (deep venous thrombosis) ?I82.409 - Acute embolism and thrombosis of unspecified deep veins of unspecified lower extremity (ICD-10) Bladder cancer ?C67.9 - Malignant neoplasm of bladder, unspecified (ICD-10) Hearing deficit ?H91.90 - Unspecified hearing loss, unspecified ear (ICD-10) IBS (irritable bowel syndrome) ?K58.9 - Irritable bowel syndrome without diarrhea (ICD-10) Acid reflux ?K21.9 - Gastro-esophageal reflux disease without esophagitis (ICD-10) Hypothyroid ?E03.9 - Hypothyroidism, unspecified (ICD-10) Diabetes 1.5, managed as type 2 ?E13.9 - Other specified diabetes mellitus without complications (ICD-10) Kidney stone ?N20.0 - Calculus of kidney (ICD-10) Prostate cancer ?C61 - Malignant neoplasm of prostate (ICD-10) CPAP (continuous positive airway pressure) dependence ?Z99.89 - Dependence on other enabling machines and devices (ICD-10) Sleep apnea ?G47.30 - Sleep apnea, unspecified (ICD-10) Hypercholesterolemia ?E78.00 - Pure hypercholesterolemia, unspecified (ICD-10) Hypertension ?I10 - Essential (primary) hypertension (ICD-10) Surgical History H/O transurethral resection of bladder tumor (TURBT) ?Z98.890 - Other specified postprocedural states (ICD-10) ?Z86.03 - Personal history of neoplasm of uncertain behavior (ICD-10) H/O arthroscopy of knee ?Z98.890 - Other specified postprocedural states (ICD-10) S/P tonsillectomy and adenoidectomy ?Z90.89 - Acquired absence of other organs (ICD-10) Previous back surgery ?Z98.890 - Other specified postprocedural states (ICD-10) H/O neck surgery ?Z98.890 - Other specified postprocedural states (ICD-10) Social History Smoking status: Never smoker Meds Home Medications and Allergies Home Medications Medication Instructions Recorded Confirmed Type albuterol sulfate 90 mcg/actuation 1 inh inhalation Q4H PRN shortness 12/27/22 06/10/23 History aerosol inhaler (ProAir HFA) of breath or wheezing allopurinol 300 mg tablet 300 mg PO .QD 12/27/22 06/10/23 History cholecalciferol (vitamin D3) 25 50 mcg PO DAILY 12/27/22 06/10/23 History mcg (1,000 unit) capsule (Vitamin D3) levothyroxine 50 mcg tablet 50 mcg PO .QD 12/27/22 06/10/23 History nitroglycerin 0.4 mg sublingual 0.4 mg sublingual Q5M PRN chest 12/27/22 06/10/23 History tablet (Nitrostat) pain potassium chloride 20 mEq 20 meq PO DAILY 12/27/22 06/10/23 History tablet,extended release (K-Tab) witch letitia-glycerin (hamamel) 1 pad topical DAILY PRN hemorrhoids 12/27/22 06/10/23 History topical pads (Hemorrhoidal Medicated topical pads) Lactobacillus rhamnosus GG 10 1 cap PO DAILY 01/09/23 06/10/23 History billion cell capsule (Culturelle) aspirin 81 mg capsule 81 mg PO DAILY 01/09/23 06/10/23 History calcium carbonate 500 mg calcium 500 mg PO TID 01/09/23 06/10/23 History (1,250 mg) tablet diltiazem HCl 180 mg 180 mg PO DAILY 01/09/23 06/10/23 History capsule,extended release 24 hr donepezil 10 mg tablet (Aricept) 10 mg PO DAILY 01/09/23 06/10/23 History dorzolamide-timolol (PF) 2 %-0.5 % 1 drp ophthalmic (eye) BID 01/09/23 06/10/23 History eye drops in a dropperette famotidine 20 mg tablet 20 mg PO DAILY 01/09/23 06/10/23 History ferrous sulfate 325 mg (65 mg 325 mg PO .qod 01/09/23 06/10/23 History iron) tablet fluticasone propionate 50 2 spray intranasal DAILY PRN nasal 01/09/23 06/10/23 History mcg/actuation nasal congestion spray,suspension (Flonase Allergy Relief) furosemide 20 mg tablet 40 mg PO QAM 01/09/23 06/10/23 History hydrocortisone 2.5 % topical cream 1 applic topical TID PRN itching 01/09/23 06/10/23 History losartan 100 mg tablet 50 mg PO DAILY 01/09/23 06/10/23 History magnesium oxide,aspartate,citr 400 mg PO BEDTIME 01/09/23 06/10/23 History metoprolol tartrate 25 mg tablet 25 mg PO BID 01/09/23 06/10/23 History [id number]-plvkq 300 mcg-K 60 1 tab PO DAILY 01/09/23 06/10/23 History mcg-lycop 600 mcg-lutein 300 mcg tablet (Centrum Silver Men) psyllium husk 0.4 gram capsule 0.4 g PO DAILY 01/09/23 06/10/23 History (Metamucil) tamsulosin 0.4 mg capsule (Flomax) 0.4 mg PO DAILY 01/09/23 06/10/23 History amlodipine 5 mg tablet 10 mg PO DAILY 01/10/23 06/10/23 History atorvastatin 20 mg tablet 40 mg PO DAILY 01/10/23 06/10/23 History baclofen 10 mg tablet 10 mg PO .qhs muscle spasm 01/10/23 06/10/23 History ondansetron 4 mg disintegrating 4 mg PO Q6H PRN nausea and 02/05/23 06/10/23 Rx tablet vomiting #12 tabs glipizide 5 mg tablet 5 mg PO DAILY 05/15/23 06/10/23 History dapagliflozin propanediol 10 mg 10 mg PO DAILY 06/10/23 06/10/23 History tablet (Farxiga) hydrocodone 5 mg-acetaminophen 325 1 tab PO Q4H PRN pain 06/10/23 06/10/23 History mg tablet pregabalin 150 mg capsule (Lyrica) 150 mg PO BEDTIME 06/10/23 06/10/23 History pregabalin 75 mg capsule (Lyrica) 75 mg PO DAILY 06/10/23 06/10/23 History Allergies Allergy/AdvReac Type Severity Reaction Status Date / Time tizanidine [From Zanaflex] Allergy Unknown Verified 05/05/23 08:22 acetaminophen [From Percocet] AdvReac Mild Vomiting Verified 05/05/23 08:22 cyclobenzaprine AdvReac Mild Hallucinati Verified 05/05/23 08:22 [From Flexeril] ng oxycodone [From Percocet] AdvReac Mild Vomiting Verified 05/05/23 08:22 tramadol AdvReac Mild Vomiting Verified 05/05/23 08:22 Exam Constitutional Common normals: no apparent distress, oriented x3, alert and well nourished General appearance: cooperative HENMT Common normals: normocephalic, head/scalp atraumatic, hearing grossly normal bilaterally, external nose normal and moist oral mucous membranes Head and scalp: normocephalic and atraumatic Eye Common normals: PERRL, EOMs intact bilaterally, conjunctivae normal and no scleral icterus Alignment: alignment normal Eyelid: eyelids normal Chest Common normals: inspection of chest normal Chest: symmetrical chest wall rise Respiratory Common normals: normal respiratory effort, no retractions, no use of accessory muscles and clear to auscultation bilaterally Effort & inspection: able to speak in complete sentences Cardio Common normals: no JVD, regular rate, regular rhythm, S1 normal heart sound, S2 normal heart sound, no gallops, no clicks, no rub and peripheral pulses 2+ throughout Heart sounds: murmur (HSM 2/6) GI Common normals: Normal to inspection, nondistended, normoactive bowel sounds present, soft to palpation, no hepatosplenomegaly, no masses and no bruits Palpation: tender (Mild, RLQ); no guarding and no rebound tenderness present Bladder/kidney exam: bladder normal to palpation Extremity Common normals: normal capillary refill and no pedal edema General: normal exam except as noted and edema (Severe BLE edema 1-4+ knees to toes, greatest at insteps. Scatt blisters); no clubbing and no cyanosis Neuro [place] Coma Scale: GCS not evaluated Common normals: CN's II-XII intact bilaterally, moves all extremities, no focal motor deficits and no sensory deficits noted Speech: speech normal Psych Common normals: mental status grossly normal, thought process normal, affect normal and activity/motor behavior normal Results Labs Labs: Short CBC 06/10/23 Range/Units 11:03 WBC 3.7 L (4.0-11.0) 10^3/uL Hgb 13.2 L (14.0-18.0) g/dL Hct 39.2 L (42.0-54.0) % Plt Count 126 L (150-450) 10^3/uL BMP 06/10/23 11:03 Sodium 141 Potassium 3.3 L Chloride 105 Carbon Dioxide 27.5 BUN 16.0 Creatinine 0.91 Glucose 204 H Calcium 8.2 L Urine 06/10/23 Range/Units 11:27 Urine Color Lt. yellow (YELLOW) Urine Clarity Clear (CLEAR) Urine pH 6.0 (5.0-9.0) Ur Specific [place] 1.010 (1.005-1.025) Urine Protein Negative (NEG/TRACE) mg/dL Urine Glucose (UA) >=1000 A (NEGATIVE) mg/dL Pulse Oximetry Attestation: I have reviewed the pertinent pulse oximetry results. ECG Interpretation: Sinus rhythm Right bundle branch block Indeterminate axis Abnormal EKG Imaging Chest x-ray: Attestation: I have reviewed the pertinent imaging results. Radiologist's impression: IMPRESSION: No acute process seen in the chest. Assessment and Plan Assessment and Plan (1) Peripheral edema: Assessment and Plan: ACUTE * Adm observation * Unclear etiology - CHF vs amlodipine admin vs DVT vs other * Venous doppler to r/o DVT * 2D Echo to assess WM and valvular abn * Hold amlodipine for now * Lasix 40 mg IVP BID - hold home daily lasix for now * Daily weights, strict I&O * DANIEL hose * CBC, CMP daily (2) Hypokalemia: Assessment and Plan: ACUTE * Give 40 meq KCL q4h x 2 dose now * Continue home daily KCL supplementation tomorrow * Tele monitoring * Check a mag level and replete if needed * CMP daily (3) 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: Assessment and Plan: ACUTE ON CHRONIC * Hx of bladder CA s/p TURP * Pt taking tamsulosin at baseline * Reported difficulty urinating today * Dodge catheter placed in ED - maintain for now * Consider void trial tomorrow * Consider urology consult pending clinical course (4) Chronic pain syndrome: Assessment and Plan: CHRONIC * Continue home [place], Lyrica (5) Esophagitis: Assessment and Plan: CHRONIC * Continue home famotidine (6) Gout: Assessment and Plan: CHRONIC * Continue home allopurinol (7) Hypothyroid: Assessment and Plan: CHRONIC * Continue home levothyroxine * Check TSH level in AM for therapeutic monitoring (8) Diabetes 1.5, managed as type 2: Assessment and Plan: CHRONIC * Continue home glipizide * Hold home Farxiga for now d/t risk for dehydration, DAVID, euglycemic DKA w/ concurrent high dose diuretic administration * Med dose SSI for glucose correction * ACHS glucometer checks * CC diet (9) Hypercholesterolemia: Assessment and Plan: CHRONIC * Continue home statin (10) Hypertension: Assessment and Plan: CHRONIC * Continue home diltiazem, losartan, Lopressor * Hold home amlodipine for now d/t BLE swelling * PRN IVP hydralazine for uncontrolled HTN (11) CPAP (continuous positive airway pressure) dependence: Assessment and Plan: CHRONIC * May use home CPAP (12) Presence of Watchman left atrial appendage closure device: Assessment and Plan: CHRONIC
[2023-06-10 16:01] LABS: Glucometer 245 mg/dL (74-106)
[2023-06-10] MEDS: ENOXAPARIN SODIUM 40 MG/0.4 ML SYRINGE SUBQ (16:25)
[2023-06-10] MEDS: POTASSIUM CHLORIDE 10 MEQ ER TABLET 40 MEQ PO ×2 (16:26→21:22)
[2023-06-10] MEDS: HYDROCODONE/ACET 5-325 MG TABLET 1.5 TAB PO (16:26)
[2023-06-10] MEDS: BACLOFEN 10 MG TABLET PO (16:26)
[2023-06-10] MEDS: INSULIN ASPART 300 UNIT/3 ML PEN SUBQ ×2 (16:26→21:23)
[2023-06-10] MEDS: FUROSEMIDE 40 MG/4 ML VIAL IVP (18:31)
[2023-06-10] MEDS: CALCIUM CARBONATE 500 MG (200MG ELEMENTAL) TAB CHEW PO (21:22)
[2023-06-10] MEDS: METOPROLOL TARTRATE 25 MG TABLET PO (21:22)
[2023-06-10] MEDS: PREGABALIN 75 MG CAPSULE 150 MG PO (21:22)
[2023-06-10] MEDS: FERROUS SULFATE 325 MG TABLET PO (21:22)
[2023-06-10] MEDS: FAMOTIDINE 20 MG TABLET PO (21:22)
[2023-06-10 21:23] LABS: Glucometer 216 mg/dL (74-106)
[2023-06-11] VITALS (17 sets, daily range): BP systolic 118–133; BP diastolic 70–81; PULSE 65–86; RESP 18; TEMP 36.7–36.8; O2SAT 92–97
[2023-06-11 05:11] LABS: Basophils Percent Auto 0.4 % (0.2-2.0); Eosinophils Percent Auto 0.8 % (0.9-7.0); Hematocrit 39.3 % (42.0-54.0); Hemoglobin 13.1 g/dL (14.0-18.0); Immature Granulocytes Abs Auto 0.04 10^3/uL (0.00-0.03); Immature Granulocytes Pct Auto 0.8 % (0.0-0.5); Lymphocytes Percent Auto 20.4 % (20.5-60.0); Mean Corpuscular HGB Conc 33.3 g/dL (29.9-35.2); Mean Corpuscular Hemoglobin 33.2 pg (25.9-34.0); Mean Corpuscular Volume 99.7 fL (80.0-94.0); Mean Platelet Volume 9.8 fL (9.5-13.5); Monocytes Absolute Auto 0.5 10^3/uL (0.3-0.8); Monocytes Percent Auto 11.5 % (1.7-12.0); Neutrophils Absolute Auto 3.1 10^3/uL (1.4-6.5); Neutrophils Percent Auto 66.1 % (43.0-75.0); Platelet Count 122 10^3/uL (150-450); Red Blood Count 3.94 10^6/uL (4.70-6.10); Red Cell Distribution Width 14.8 % (11.0-15.0); White Blood Count 4.7 10^3/uL (4.0-11.0)
[2023-06-11 05:37] LABS: Alanine Aminotransferase 71 U/L (16-63); Albumin Globulin Ratio 1.1; Albumin Level 3.1 g/dL (3.4-5.0); Alkaline Phosphatase 46 U/L (46-116); Anion Gap 10.9; Aspartate Amino Transferase 26 U/L (15-37); BUN Creatinine Ratio 17.9; Bilirubin Total 0.7 mg/dL (0.2-1.0); Calcium 8.5 mg/dL (8.5-10.1); Carbon Dioxide 28.3 mmol/L (21.0-32.0); Chloride 106 mmol/L (98-107); Estimated GFR (African America >60 (>=60); Estimated GFR (Non-African Ame >60 (>=60); Globulin 2.8 g/dL; Glucose 186 mg/dL (74-106); Potassium 4.2 mmol/L (3.5-5.1); Sodium 141 mmol/L (136-145); Total Protein 5.9 g/dL (6.4-8.2)
[2023-06-11 05:59] LABS: Thyroid Stimulating Hormone 0.671 uIU/mL (0.358-3.740)
[2023-06-11] MEDS: CALCIUM CARBONATE 500 MG (200MG ELEMENTAL) TAB CHEW PO ×3 (06:20→21:10)
[2023-06-11] MEDS: FUROSEMIDE 40 MG/4 ML VIAL IVP (06:20)
[2023-06-11] MEDS: LEVOTHYROXINE SODIUM 25 MCG TABLET 50 MCG PO (06:20)
[2023-06-11 07:29] LABS: Glucometer 187 mg/dL (74-106)
[2023-06-11] MEDS: INSULIN ASPART 300 UNIT/3 ML PEN SUBQ ×2 (08:31→21:11)
[2023-06-11] MEDS: METOPROLOL TARTRATE 25 MG TABLET PO ×2 (09:20→21:10)
[2023-06-11] MEDS: GLIPIZIDE 5 MG TABLET PO (09:20)
[2023-06-11] MEDS: DILTIAZEM HCL 180 MG CAP.ER.24H PO (09:20)
[2023-06-11] MEDS: L. ACIDOPHILUS/L.BULGARICUS 1 PACKET GRAN.PACK PO (09:20)
[2023-06-11] MEDS: PSYLLIUM 0.4 GM PO (09:20)
[2023-06-11] MEDS: DONEPEZIL HCL 10 MG TABLET PO (09:20)
[2023-06-11] MEDS: TAMSULOSIN HCL 0.4 MG CAPSULE PO (09:21)
[2023-06-11] MEDS: HYDROCODONE/ACET 5-325 MG TABLET 1.5 TAB PO ×3 (09:21→21:19)
[2023-06-11] MEDS: PREGABALIN 75 MG CAPSULE PO (09:21)
[2023-06-11] MEDS: BACLOFEN 10 MG TABLET PO (09:21)
[2023-06-11] MEDS: POTASSIUM CHLORIDE 10 MEQ ER TABLET 20 MEQ PO (09:21)
[2023-06-11] MEDS: ASPIRIN 81 MG TAB.CHEW PO (09:21)
[2023-06-11] MEDS: ALLOPURINOL 300 MG TABLET PO (09:21)
[2023-06-11] MEDS: LOSARTAN POTASSIUM 50 MG TABLET PO (09:22)
[2023-06-11] MEDS: ATORVASTATIN CALCIUM 20 MG TABLET 40 MG PO (09:22)
[2023-06-11] MEDS: DORZOLAMIDE HCL 2%/TIMOLOL MALEATE 0.5% 200 DROP/10 ML BOTTLE EYE-BOTH ×2 (09:23→21:10)
[2023-06-11 11:09] LABS: Glucometer 186 mg/dL (74-106)
--- NOTE | 2023-06-11 12:01 | CM.NOTE ---
Rounds made with Dr. Elliott, discussed with pt about discontinuing yao today and making sure pt able to urinate. If difficulties urinating will re-insert yao and discharge pt to home with yao. Pt will f/u with Dr. Garcia.
--- NOTE | 2023-06-11 15:14 | PM.DS1 ---
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 A 2D echo was obtained which was unremarkable with preserved LVEF of 60 to 65%, no significant valvular abnormalities, mildly increased RV systolic pressure. Venous Doppler study was obtained which was negative for acute DVT. Patient was treated with IVP Lasix twice daily with good urine output. Dodge catheter was placed due to his inability to urinate. This was removed on the day of discharge and he was able to demonstrate the ability to urinate prior to discharge. Although the patient continues to have lower extremity edema, is stable at his baseline lymphedema. He is being discharged home in stable condition. He is to follow-up with his PCP in 7 to 10 days and with his normal urologist, Dr. Garcia, within 1 to 2 weeks. He should return to the ED if he develops significant urinary retention again for a Dodge catheter placement. Time Spent with Patient Time attestation: Total time spent providing and/or coordinating discharge services: Time spent: greater than 30 minutes Specific discharge activities: Physical exam, discussion of discharge plan, questions answered. Exam Constitutional Vital Signs, click to edit/add: Last Vital Signs Temp 98.1 F 06/11/23 06:00 Pulse 78 06/11/23 13:57 Resp 18 06/11/23 06:00 BP 133/81 06/11/23 06:00 Pulse Ox 97 06/11/23 09:55 O2 Del Method Room Air 06/11/23 09:55 Common normals: no apparent distress, oriented x3 and alert General appearance: cooperative Orientation/consciousness: Yes awake HENMT Common normals: normocephalic and head/scalp atraumatic Eye Common normals: PERRL, EOMs intact bilaterally, conjunctivae normal and no scleral icterus Neck & C-Spine Common normals: no JVD Respiratory Common normals: normal respiratory effort, no use of accessory muscles and clear to auscultation bilaterally Effort & inspection: able to speak in complete sentences and symmetric chest movement Cardio Common normals: no JVD, regular rate, regular rhythm, S1 normal heart sound, S2 normal heart sound, no murmurs and peripheral pulses 2+ throughout GI Common normals: Normal to inspection, nondistended, normoactive bowel sounds present, soft to palpation and non-tender Bladder/kidney exam: bladder normal to palpation Extremity Common normals: normal to inspection, full ROM, normal capillary refill and no pedal edema General: edema (2-3+ knees to insteps. B.L. lymphedema); no clubbing and no cyanosis Neuro Common normals: moves all extremities, no focal motor deficits and no sensory deficits noted Speech: speech normal Psych Common normals: mental status grossly normal and activity/motor behavior normal DS: Data Data Completed and Pending Completed studies during hospitalization: CXR, 2D Echo, Venous doppler Labs on day of discharge: Labs from last 24 hours 06/11/23 06/11/23 06/11/23 11:09 07:29 04:57 WBC 4.7 RBC 3.94 L Hgb 13.1 L Hct 39.3 L MCV 99.7 H MCH 33.2 MCHC 33.3 RDW 14.8 Plt Count 122 L MPV 9.8 Neut % (Auto) 66.1 Lymph % (Auto) 20.4 L [place] % (Auto) 11.5 Eos % (Auto) 0.8 L Baso % (Auto) 0.4 Neut # (Auto) 3.1 Lymph # (Auto) 1.0 L [place] # (Auto) 0.5 Eos # (Auto) 0.0 Baso # (Auto) 0.0 Abs Immat Gran (auto) 0.04 H Imm/Tot Granulo (auto) 0.8 H Sodium 141 Potassium 4.2 Chloride 106 Carbon Dioxide 28.3 Anion Gap 10.9 BUN 14.0 Creatinine 0.78 Est GFR ( Amer) >60 Est GFR (Non-Af Amer) >60 BUN/Creatinine Ratio 17.9 Glucose 186 H Calcium 8.5 Magnesium 2.0 Total Bilirubin 0.7 AST 26 ALT 71 H Alkaline Phosphatase 46 NT-Pro-B Natriuret Pep 202.0 Total Protein 5.9 L Albumin 3.1 L Globulin 2.8 Albumin/Globulin Ratio 1.1 TSH 0.671 POC Glucose 186 H 187 H 06/10/23 06/10/23 21:21 16:00 WBC RBC Hgb Hct MCV MCH MCHC RDW Plt Count MPV Neut % (Auto) Lymph % (Auto) [place] % (Auto) Eos % (Auto) Baso % (Auto) Neut # (Auto) Lymph # (Auto) [place] # (Auto) Eos # (Auto) Baso # (Auto) Abs Immat Gran (auto) Imm/Tot Granulo (auto) Sodium Potassium Chloride Carbon Dioxide Anion Gap BUN Creatinine Est GFR ( Amer) Est GFR (Non-Af Amer) BUN/Creatinine Ratio Glucose Calcium Magnesium Total Bilirubin AST ALT Alkaline Phosphatase NT-Pro-B Natriuret Pep Total Protein Albumin Globulin Albumin/Globulin Ratio TSH POC Glucose 216 H 245 H Imaging 2D Echo: Attestation: I have reviewed the pertinent imaging results. Radiologist's impression: CONCLUSION: 1. Global left ventricular systolic function is normal; visually estimated ejection fraction is 60 to 65% 2. Left ventricular wall thickness is mildly increased 3. The right ventricle is normal in size and systolic function 4. Mildly increased right ventricular systolic pressure; RVSP 37 mmHg 5. No significant valvular abnormalities 6. Anterior free space; trivial effusion versus fat pad Venous US: Attestation: I have reviewed the pertinent imaging results. Radiologist's impression: IMPRESSION: 1. Negative for deep venous thrombosis in either lower extremity. Negative for superficial venous thrombus. 2. Nonspecific subcutaneous edema of both calves. 3. 7.9 x 3.2 x 1.7 cm right popliteal fossa fluid collection consistent with a Rivera's cyst. Discharge Plan Discharge Disposition: Home Health Service Condition: Good Discharge Medications: Continued donepezil [Aricept] 10 mg tablet 10 mg PO DAILY aspirin 81 mg capsule 81 mg PO DAILY calcium carbonate 500 mg calcium (1,250 mg) tablet 500 mg PO TID Centrum Silver Men 300-600-300 mcg tablet 1 tab PO DAILY Culturelle 10 billion cell capsule 1 cap PO DAILY diltiazem HCl 180 mg capsule,extended release 24hr 180 mg PO DAILY dorzolamide-timolol (PF) 2-0.5 % dropperette 1 drp ophthalmic (eye) BID ferrous sulfate 325 mg (65 mg iron) tablet 325 mg PO .qod famotidine 20 mg tablet 20 mg PO DAILY tamsulosin [Flomax] 0.4 mg capsule 0.4 mg PO DAILY fluticasone propionate [Flonase Allergy Relief] 50 mcg/actuation spray,suspension 2 spray intranasal DAILY PRN (Reason: nasal congestion) Rx Instructions: administer into each nostril furosemide 20 mg tablet 40 mg PO QAM hydrocortisone 2.5 % cream 1 applic topical TID PRN (Reason: itching) losartan 100 mg tablet 50 mg PO DAILY magnesium oxide,aspartate,citr 400 mg magnesium capsule 400 mg PO BEDTIME psyllium husk [Metamucil] 0.4 gram capsule 0.4 g PO DAILY metoprolol tartrate 25 mg tablet 25 mg PO BID amlodipine 5 mg tablet 10 mg PO DAILY atorvastatin 20 mg tablet 40 mg PO DAILY baclofen 10 mg tablet 10 mg PO .qhs glipizide 5 mg tablet 5 mg PO DAILY ondansetron 4 mg tablet,disintegrating 4 mg PO Q6H PRN (Reason: nausea and vomiting) Qty: 12 0RF pregabalin [Lyrica] 75 mg capsule 75 mg PO DAILY Patient Comments: takes 1 in am and 2 in pm pregabalin [Lyrica] 150 mg capsule 150 mg PO BEDTIME Farxiga 10 mg tablet 10 mg PO DAILY hydrocodone-acetaminophen 5-325 mg tablet 1 tab PO Q4H PRN (Reason: pain) Rx Instructions: 1 tablet every 4-6 hours as needed for chronic back pain allopurinol 300 mg tablet 300 mg PO .QD levothyroxine 50 mcg tablet 50 mcg PO .QD cholecalciferol (vitamin D3) [Vitamin D3] 25 mcg (1,000 unit) capsule 50 mcg PO DAILY Hemorrhoidal Medicated Pads, Medicated 1 pad topical DAILY PRN (Reason: hemorrhoids) albuterol sulfate [ProAir HFA] 90 mcg/actuation HFA aerosol inhaler 1 inh inhalation Q4H PRN (Reason: shortness of breath or wheezing) potassium chloride [K-Tab] 20 mEq tablet extended release 20 meq PO DAILY nitroglycerin [Nitrostat] 0.4 mg tablet, sublingual 0.4 mg sublingual Q5M PRN (Reason: chest pain) Rx Instructions: do not exceed 3 doses per episode Activity: ambulate only with your walker Diet: advance to your usual diet Patient Instructions: Urinary Retention in Men (ED), Leg Edema (ED) Activity Restrictions/Additional Instructions: - Return to the ED if you are unable to urinate Forms: Portal Instructions Follow Up Appointments: Follow up appt. with Dr. Elliott on @ 11am office #: [phone] Garcia (urology) on @ 10:30am office location: [facility], [address] , [facility] office #: [phone]
[2023-06-11 16:02] LABS: Glucometer 147 mg/dL (74-106)
--- NOTE | 2023-06-11 17:14 | P.PN_ITS ---
<Statement entered by Shaikh Lexi MD - 06/12/23 07:01> This documentation has been reviewed and approved. Seen and examined. Chart reviewed, case discussed with jasmin alves Patient reports poorly controlled pain, fatigue. His LE edema is more or less back to baseline. Exam Sitting on recliner, NAD CTA normal RR +1 pitting edema, more around ankles b/l Urinary retention due to BPH Assessment/plan Improving but still too weak/tired and worn out. C/w PT/OT eval. Monitor UO and ensure able to urinate. Can switch to PO lasix. Possible d/c in morning Progress Note: Subjective Subjective Interval history: 06/11/23 0950 The patient is sitting up in a bedside chair. He he reports feeling improved and his electrolyte derangements have resolved. His lower extremity edema is back to his baseline lymphedema which is chronic. After discussion with Dr. Elliott, we will attempt a void trial today by removing his Dodge catheter. If he is able to urinate he can be discharged home later today and follow-up with Dr. Garcia as an outpatient. If he is unable to urinate we will reinsert the Dodge catheter and he will go home with a catheter. ADDENDUM 1655: The pt has finally been able to urinate, but he feels he is too weak to return home tonight. The discharge has been cancelled and he will remain in the hospital overnight. D/C likely in the AM. Exam Constitutional Vital Signs, click to edit/add: Last Vital Signs Temp 98.0 F 06/11/23 14:00 Pulse 71 06/11/23 15:54 Resp 18 06/11/23 14:00 BP 124/80 06/11/23 14:00 Pulse Ox 94 L 06/11/23 14:00 O2 Del Method Room Air 06/11/23 14:00 Common normals: no apparent distress, oriented x3 and alert General appearance: cooperative Orientation/consciousness: Yes awake [facility] Common normals: normocephalic, head/scalp atraumatic and hearing grossly normal bilaterally Eye Common normals: PERRL, EOMs intact bilaterally, conjunctivae normal and no scleral icterus General eye: normal appearance of both eyes Chest Common normals: inspection of chest normal Chest: symmetrical chest wall rise Respiratory Common normals: normal respiratory effort, no use of accessory muscles and clear to auscultation bilaterally Effort & inspection: able to speak in complete sentences Cardio Common normals: regular rate, regular rhythm, S1 normal heart sound, S2 normal heart sound, no murmurs and peripheral pulses 2+ throughout GI Common normals: Normal to inspection, nondistended, normoactive bowel sounds present, soft to palpation, non-tender and no hepatosplenomegaly Bladder/kidney exam: bladder normal to palpation Extremity Common normals: normal to inspection and no calf tenderness General: no clubbing and no cyanosis Neuro Common normals: CN's II-XII intact bilaterally, moves all extremities, no focal motor deficits and no sensory deficits noted Psych Common normals: mental status grossly normal Progress Note: Objective Labs Labs: Short CBC 06/11/23 Range/Units 04:57 WBC 4.7 (4.0-11.0) 10^3/uL Hgb 13.1 L (14.0-18.0) g/dL Hct 39.3 L (42.0-54.0) % Plt Count 122 L (150-450) 10^3/uL BMP 06/11/23 04:57 Sodium 141 Potassium 4.2 Chloride 106 Carbon Dioxide 28.3 BUN 14.0 Creatinine 0.78 Glucose 186 H Calcium 8.5 Liver Function 06/11/23 Range/Units 04:57 Total Bilirubin 0.7 (0.2-1.0) mg/dL AST 26 (15-37) U/L ALT 71 H (16-63) U/L Alkaline Phosphatase 46 (46-116) U/L Albumin 3.1 L (3.4-5.0) g/dL Progress Note: A&P Assessment and Plan (1) Peripheral edema: Assessment and Plan: ACUTE * Improved - resolved to baseline lymph edema * Venous doppler - neg * 2D Echo to assess WM and valvular abn - preserved LVEF, no valvular or significant WM abnormalities * Resume amlodipine * d/c Lasix 40 mg IVP BID * resume home lasix in AM * Daily weights, strict I&O * DANIEL hose * CBC, CMP daily (2) Hypokalemia: Assessment and Plan: ACUTE * Resolved * CMP daily (3) 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: Assessment and Plan: ACUTE ON CHRONIC * d/c Dodge catheter for void trial * Replace if unable to void * FU outpatient with Dr Garcia (4) Chronic pain syndrome: Assessment and Plan: CHRONIC * Continue home [place], Lyrica (5) Esophagitis: Assessment and Plan: CHRONIC * Continue home famotidine (6) Gout: Assessment and Plan: CHRONIC * Continue home allopurinol (7) Hypothyroid: Assessment and Plan: CHRONIC * Continue home levothyroxine * Check TSH level in AM for therapeutic monitoring (8) Diabetes 1.5, managed as type 2: Assessment and Plan: CHRONIC * Continue home glipizide * Hold home Farxiga for now d/t risk for dehydration, DAVID, euglycemic DKA w/ concurrent high dose diuretic administration. Resume at d/c * Med dose SSI for glucose correction * ACHS glucometer checks * CC diet (9) Hypercholesterolemia: Assessment and Plan: CHRONIC * Continue home statin (10) Hypertension: Assessment and Plan: CHRONIC * Continue home diltiazem, losartan, Lopressor, amlodipine * PRN IVP hydralazine for uncontrolled HTN (11) CPAP (continuous positive airway pressure) dependence: Assessment and Plan: CHRONIC * May use home CPAP (12) Presence of Watchman left atrial appendage closure device:
--- NOTE | 2023-06-11 19:26 | RESP.RT ---
No PRN breathing tx given. Pt denies need. No respiratory distress noted.
[2023-06-11 20:45] LABS: Glucometer 232 mg/dL (74-106)
[2023-06-11] MEDS: ENOXAPARIN SODIUM 40 MG/0.4 ML SYRINGE SUBQ (21:10)
[2023-06-11] MEDS: PREGABALIN 75 MG CAPSULE 150 MG PO (21:10)
[2023-06-11] MEDS: FAMOTIDINE 20 MG TABLET PO (21:10)
[2023-06-12] VITALS (7 sets, daily range): BP systolic 93; BP diastolic 57; PULSE 57–73; RESP 18; TEMP 36.5; O2SAT 93–94
[2023-06-12] MEDS: HYDROCODONE/ACET 5-325 MG TABLET 1.5 TAB PO ×2 (03:00→09:53)
[2023-06-12 05:25] LABS: Basophils Percent Auto 0.4 % (0.2-2.0); Eosinophils Absolute Auto 0.1 10^3/uL (0.0-0.7); Eosinophils Percent Auto 1.3 % (0.9-7.0); Hematocrit 37.9 % (42.0-54.0); Hemoglobin 12.6 g/dL (14.0-18.0); Immature Granulocytes Abs Auto 0.03 10^3/uL (0.00-0.03); Immature Granulocytes Pct Auto 0.7 % (0.0-0.5); Lymphocytes Absolute Auto 0.8 10^3/uL (1.2-3.8); Lymphocytes Percent Auto 18.2 % (20.5-60.0); Mean Corpuscular HGB Conc 33.2 g/dL (29.9-35.2); Mean Corpuscular Hemoglobin 33.1 pg (25.9-34.0); Mean Corpuscular Volume 99.5 fL (80.0-94.0); Mean Platelet Volume 9.7 fL (9.5-13.5); Monocytes Absolute Auto 0.5 10^3/uL (0.3-0.8); Monocytes Percent Auto 11.1 % (1.7-12.0); Neutrophils Absolute Auto 3.2 10^3/uL (1.4-6.5); Neutrophils Percent Auto 68.3 % (43.0-75.0); Platelet Count 109 10^3/uL (150-450); Red Blood Count 3.81 10^6/uL (4.70-6.10); Red Cell Distribution Width 14.7 % (11.0-15.0); White Blood Count 4.6 10^3/uL (4.0-11.0)
[2023-06-12] MEDS: CALCIUM CARBONATE 500 MG (200MG ELEMENTAL) TAB CHEW PO (05:48)
[2023-06-12] MEDS: LEVOTHYROXINE SODIUM 25 MCG TABLET 50 MCG PO (05:48)
[2023-06-12 05:50] LABS: Alanine Aminotransferase 58 U/L (16-63); Albumin Level 2.7 g/dL (3.4-5.0); Alkaline Phosphatase 44 U/L (46-116); Anion Gap 13.3; Aspartate Amino Transferase 20 U/L (15-37); Bilirubin Total 0.7 mg/dL (0.2-1.0); Calcium 8.2 mg/dL (8.5-10.1); Carbon Dioxide 24.3 mmol/L (21.0-32.0); Chloride 102 mmol/L (98-107); Estimated GFR (African America >60 (>=60); Estimated GFR (Non-African Ame >60 (>=60); Globulin 2.6 g/dL; Glucose 170 mg/dL (74-106); Potassium 3.6 mmol/L (3.5-5.1); Sodium 136 mmol/L (136-145); Total Protein 5.3 g/dL (6.4-8.2)
[2023-06-12] MEDS: INSULIN ASPART 300 UNIT/3 ML PEN SUBQ (07:50)
[2023-06-12] MEDS: ATORVASTATIN CALCIUM 20 MG TABLET 40 MG PO (08:32)
[2023-06-12] MEDS: PSYLLIUM 0.4 GM PO (08:32)
[2023-06-12] MEDS: ASPIRIN 81 MG TAB.CHEW PO (08:32)
[2023-06-12] MEDS: GLIPIZIDE 5 MG TABLET PO (08:33)
[2023-06-12] MEDS: ALLOPURINOL 300 MG TABLET PO (08:33)
[2023-06-12] MEDS: POTASSIUM CHLORIDE 10 MEQ ER TABLET 20 MEQ PO (08:33)
[2023-06-12] MEDS: L. ACIDOPHILUS/L.BULGARICUS 1 PACKET GRAN.PACK PO (08:33)
[2023-06-12] MEDS: AMLODIPINE BESYLATE 5 MG TABLET 10 MG PO (08:34)
[2023-06-12] MEDS: LOSARTAN POTASSIUM 50 MG TABLET PO (08:34)
[2023-06-12] MEDS: TAMSULOSIN HCL 0.4 MG CAPSULE PO (08:34)
[2023-06-12] MEDS: DILTIAZEM HCL 180 MG CAP.ER.24H PO (08:34)
[2023-06-12] MEDS: DONEPEZIL HCL 10 MG TABLET PO (08:34)
[2023-06-12] MEDS: FUROSEMIDE 40 MG TABLET PO (08:35)
[2023-06-12] MEDS: DORZOLAMIDE HCL 2%/TIMOLOL MALEATE 0.5% 200 DROP/10 ML BOTTLE EYE-BOTH (08:36)
[2023-06-12] MEDS: PREGABALIN 75 MG CAPSULE PO (08:38)
[2023-06-12] MEDS: METOPROLOL TARTRATE 25 MG TABLET PO (08:40)
--- NOTE | 2023-06-12 09:25 | CM.NOTE ---
Rounding with Dr. Elliott. Plan for discharge today. Discharge plan is to resume home health provided by the [facility] ([facility]) and patient verbalizes agreement to this plan.
--- NOTE | 2023-06-12 10:27 | P.DS_ITS ---
<Statement entered by Shaikh Lexi MD - 06/13/23 13:39> This documentation has been reviewed and approved. Patient seen and examined. Case discussed with Araceli. Agree with her documentation, clinical findings and treatment plan Patient appears comfortable. Reports back pain. LE edema is back to its baseline. Exam Sitting on a recliner, NAD CTA b/l, normal RR +1 LE edema mostly around ankles Assessment Plan Acute on chronic diastolic HF Chronic LBP pain Afib T2 DM Stable for d/c on PO lasix. Patient will be started on Fentanyl patch by his pain provider. F/u in one week as outpatient. 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 A 2D echo was obtained which was unremarkable with preserved LVEF of 60 to 65%, no significant valvular abnormalities, mildly increased RV systolic pressure. Venous Doppler study was obtained which was negative for acute DVT. Patient was treated with IVP Lasix twice daily with good urine output. Dodge catheter was placed due to his inability to urinate. This was removed on the day before discharge and he was able to demonstrate the ability to urinate more than once prior to discharge. Although the patient continues to have lower extremity edema, it is stable at his baseline lymphedema. He is being discharged home in stable condition. He is to follow-up with his PCP in 7 to 10 days and with his normal urologist, Dr. Garcia, within 1 to 2 weeks. He should return to the ED if he develops significant urinary retention again for a Dodge catheter placement. Time Spent with Patient Time attestation: Total time spent providing and/or coordinating discharge services: Time spent: greater than 30 minutes Specific discharge activities: Physical exam, discussion of discharge plan, questions answered. Exam Constitutional Vital Signs, click to edit/add: Last Vital Signs Temp 97.7 F 06/12/23 05:56 Pulse 73 06/12/23 10:06 Resp 18 06/12/23 05:56 BP 93/57 06/12/23 05:56 Pulse Ox 94 L 06/12/23 05:56 O2 Del Method Room Air 06/12/23 05:56 Common normals: no apparent distress, oriented x3 and alert General appearance: cooperative Orientation/consciousness: Yes awake HENMT Common normals: normocephalic and head/scalp atraumatic Eye Common normals: PERRL, EOMs intact bilaterally, conjunctivae normal and no scleral icterus Neck & C-Spine Common normals: no JVD Respiratory Common normals: normal respiratory effort, no use of accessory muscles and clear to auscultation bilaterally Effort & inspection: able to speak in complete sentences and symmetric chest movement Cardio Common normals: no JVD, regular rate, regular rhythm, S1 normal heart sound, S2 normal heart sound, no murmurs and peripheral pulses 2+ throughout GI Common normals: Normal to inspection, nondistended, normoactive bowel sounds present, soft to palpation and non-tender Bladder/kidney exam: bladder normal to palpation Extremity Common normals: normal to inspection, full ROM and normal capillary refill General: edema (2-3+ chronic lymphedema); no clubbing and no cyanosis Neuro Common normals: moves all extremities, no focal motor deficits and no sensory deficits noted Speech: speech normal Psych Common normals: mental status grossly normal and activity/motor behavior normal DS: Data Data Completed and Pending Labs on day of discharge: Labs from last 24 hours 06/12/23 06/11/23 06/11/23 05:07 20:44 16:01 WBC 4.6 RBC 3.81 L Hgb 12.6 L Hct 37.9 L MCV 99.5 H MCH 33.1 MCHC 33.2 RDW 14.7 Plt Count 109 L MPV 9.7 Neut % (Auto) 68.3 Lymph % (Auto) 18.2 L [place] % (Auto) 11.1 Eos % (Auto) 1.3 Baso % (Auto) 0.4 Neut # (Auto) 3.2 Lymph # (Auto) 0.8 L [place] # (Auto) 0.5 Eos # (Auto) 0.1 Baso # (Auto) 0.0 Abs Immat Gran (auto) 0.03 Imm/Tot Granulo (auto) 0.7 H Sodium 136 Potassium 3.6 Chloride 102 Carbon Dioxide 24.3 Anion Gap 13.3 BUN 17.0 Creatinine 0.81 Est GFR ( Amer) >60 Est GFR (Non-Af Amer) >60 BUN/Creatinine Ratio 21.0 Glucose 170 H Calcium 8.2 L Total Bilirubin 0.7 AST 20 ALT 58 Alkaline Phosphatase 44 L NT-Pro-B Natriuret Pep 164.0 Total Protein 5.3 L Albumin 2.7 L Globulin 2.6 Albumin/Globulin Ratio 1.0 POC Glucose 232 H 147 H 06/11/23 11:09 WBC RBC Hgb Hct MCV MCH MCHC RDW Plt Count MPV Neut % (Auto) Lymph % (Auto) [place] % (Auto) Eos % (Auto) Baso % (Auto) Neut # (Auto) Lymph # (Auto) [place] # (Auto) Eos # (Auto) Baso # (Auto) Abs Immat Gran (auto) Imm/Tot Granulo (auto) Sodium Potassium Chloride Carbon Dioxide Anion Gap BUN Creatinine Est GFR ( Amer) Est GFR (Non-Af Amer) BUN/Creatinine Ratio Glucose Calcium Total Bilirubin AST ALT Alkaline Phosphatase NT-Pro-B Natriuret Pep Total Protein Albumin Globulin Albumin/Globulin Ratio POC Glucose 186 H Discharge Plan Discharge Disposition: Home Health Service Condition: Good Discharge Medications: Continued donepezil [Aricept] 10 mg tablet 10 mg PO DAILY aspirin 81 mg capsule 81 mg PO DAILY calcium carbonate 500 mg calcium (1,250 mg) tablet 500 mg PO TID Centrum Silver Men 300-600-300 mcg tablet 1 tab PO DAILY Culturelle 10 billion cell capsule 1 cap PO DAILY diltiazem HCl 180 mg capsule,extended release 24hr 180 mg PO DAILY dorzolamide-timolol (PF) 2-0.5 % dropperette 1 drp ophthalmic (eye) BID ferrous sulfate 325 mg (65 mg iron) tablet 325 mg PO .qod famotidine 20 mg tablet 20 mg PO DAILY tamsulosin [Flomax] 0.4 mg capsule 0.4 mg PO DAILY fluticasone propionate [Flonase Allergy Relief] 50 mcg/actuation spray,suspension 2 spray intranasal DAILY PRN (Reason: nasal congestion) Rx Instructions: administer into each nostril furosemide 20 mg tablet 40 mg PO QAM hydrocortisone 2.5 % cream 1 applic topical TID PRN (Reason: itching) losartan 100 mg tablet 50 mg PO DAILY magnesium oxide,aspartate,citr 400 mg magnesium capsule 400 mg PO BEDTIME psyllium husk [Metamucil] 0.4 gram capsule 0.4 g PO DAILY metoprolol tartrate 25 mg tablet 25 mg PO BID amlodipine 5 mg tablet 10 mg PO DAILY atorvastatin 20 mg tablet 40 mg PO DAILY baclofen 10 mg tablet 10 mg PO .qhs glipizide 5 mg tablet 5 mg PO DAILY ondansetron 4 mg tablet,disintegrating 4 mg PO Q6H PRN (Reason: nausea and vomiting) Qty: 12 0RF pregabalin [Lyrica] 75 mg capsule 75 mg PO DAILY Patient Comments: takes 1 in am and 2 in pm pregabalin [Lyrica] 150 mg capsule 150 mg PO BEDTIME Farxiga 10 mg tablet 10 mg PO DAILY hydrocodone-acetaminophen 5-325 mg tablet 1 tab PO Q4H PRN (Reason: pain) Rx Instructions: 1 tablet every 4-6 hours as needed for chronic back pain buprenorphine 5 mcg/hour patch weekly 1 patch transdermal QWEEK allopurinol 300 mg tablet 300 mg PO .QD levothyroxine 50 mcg tablet 50 mcg PO .QD cholecalciferol (vitamin D3) [Vitamin D3] 25 mcg (1,000 unit) capsule 50 mcg PO DAILY Hemorrhoidal Medicated Pads, Medicated 1 pad topical DAILY PRN (Reason: hemorrhoids) albuterol sulfate [ProAir HFA] 90 mcg/actuation HFA aerosol inhaler 1 inh inhalation Q4H PRN (Reason: shortness of breath or wheezing) potassium chloride [K-Tab] 20 mEq tablet extended release 20 meq PO DAILY nitroglycerin [Nitrostat] 0.4 mg tablet, sublingual 0.4 mg sublingual Q5M PRN (Reason: chest pain) Rx Instructions: do not exceed 3 doses per episode Activity: ambulate only with your walker Diet: advance to your usual diet Patient Instructions: Urinary Retention in Men (ED), Leg Edema (ED) Activity Restrictions/Additional Instructions: - Return to the ED if you are unable to urinate Forms: Portal Instructions Follow Up Appointments: Follow up appt. with Dr. Elliott on @ 11am office #: [phone] Garcia (urology) on @ 10:30am office location: [facility], [address] , [facility] office #: [phone] Discharge Date/Time: 06/12/23 10:55
--- NOTE | 2023-06-12 10:38 | CM.NOTE ---
Pt will discharge today. Pt has [facility] services through the [facility] and denies other discharge needs.
--- NOTE | 2023-06-13 14:41 | CM.DCFOLLOWU ---
First discharge follow up call attempted. Unable to reach patient at this time, no answer.
== END 2023-06-12 10:55 | disposition home health service (06) ==
LOC: ER 11:58 → MS 12:11
PROVIDERS: Admitting Provider Internal Medicine; Emergency Provider Emergency Medicine; PCP Internal Medicine; Visit Provider Nurse Practitioner
DX: I11.0 Hypertensive heart disease with heart failure (principal); I50.33 Acute on chronic diastolic (congestive) heart failure; I48.91 Unspecified atrial fibrillation; E11.9 Type 2 diabetes mellitus without complications; M48.061 Spinal stenosis, lumbar region without neurogenic claudication; N40.1 Benign prostatic hyperplasia with lower urinary tract symptoms; R33.8 Other retention of urine; Z23 Encounter for immunization; E87.6 Hypokalemia; G89.4 Chronic pain syndrome; M1A.9XX0 Chronic gout, unspecified, without tophus (tophi); E03.9 Hypothyroidism, unspecified; E78.00 Pure hypercholesterolemia, unspecified; K20.90 Esophagitis, unspecified without bleeding; M47.816 Spondylosis without myelopathy or radiculopathy, lumbar region; M06.9 Rheumatoid arthritis, unspecified; H91.90 Unspecified hearing loss, unspecified ear; K58.9 Irritable bowel syndrome, unspecified; K21.9 Gastro-esophageal reflux disease without esophagitis; G47.30 Sleep apnea, unspecified; Z86.718 Personal history of other venous thrombosis and embolism; Z85.51 Personal history of malignant neoplasm of bladder; Z99.89 Dependence on other enabling machines and devices; Z85.46 Personal history of malignant neoplasm of prostate; Z98.890 Other specified postprocedural states; Z90.89 Acquired absence of other organs; Z79.899 Other long term (current) drug therapy; Z79.891 Long term (current) use of opiate analgesic; Z79.890 Hormone replacement therapy; Z95.818 Presence of other cardiac implants and grafts; Z79.82 Long term (current) use of aspirin; M17.11 Unilateral primary osteoarthritis, right knee; I45.10 Unspecified right bundle-branch block
CPT/HCPCS: 36415; 51702; 51798; 71045; 80048; 80053; 81001; 82948; 83735; 83880; 84443; 84484; 85025; 90662; 93005; 93306; 93970; 94761; 96372; 96374; 96376; 97162; 97165; 99285; G0008; G0378

== ENCOUNTER 2023-06-14 00:27 | Observation (INO) | payer MEDICARE, SELFPAY ==
[2023-06-14 00:32] VITALS: BP 119/81; PULSE 87; RESP 20; TEMP 36.7; O2SAT 95; BMI 25.8
[2023-06-14 00:40] VITALS: PULSE 89
--- NOTE | 2023-06-14 00:48 | ED.SOB1 ---
HPI - SOB/Dyspnea General Chief Complaint: Shortness of Breath/Dyspnea Stated Complaint: sob Time Seen by Provider: 06/14/23 00:40 Source: patient Mode of arrival: Wheelchair Limitations: no limitations History of Present Illness HPI Narrative: patient has chronic back pain. Has been on [place] for pain. Today he was also started on buprenorphine patch for pain. States about 9-10 hours after placement of the suboxone he developed a sensation of feeling hot all over and removed his clothing. He now presents because he feels short of breath. Maybe mild chest pain. No nausea or abdominal pain. short of breath for a couple of hours. States feels like he was suffocating. started to feel somewhat less short of breath en route to the hospital. He is diabetic and has past of DM, HTN, hyperlipidemia. Recently discharged from hospital after admission for lower ext. edema. Sons states his ankles are still swollen but better MD elicited complaint: shortness of breath Related Data Home Medications Medication Instructions Recorded Confirmed albuterol sulfate 90 mcg/actuation 1 inh inhalation Q4H PRN shortness 12/27/22 06/14/23 aerosol inhaler (ProAir HFA) of breath or wheezing allopurinol 300 mg tablet 300 mg PO .QD 12/27/22 06/14/23 cholecalciferol (vitamin D3) 25 50 mcg PO DAILY 12/27/22 06/14/23 mcg (1,000 unit) capsule (Vitamin D3) levothyroxine 50 mcg tablet 50 mcg PO .QD 12/27/22 06/14/23 nitroglycerin 0.4 mg sublingual 0.4 mg sublingual Q5M PRN chest 12/27/22 06/14/23 tablet (Nitrostat) pain potassium chloride 20 mEq 20 meq PO DAILY 12/27/22 06/14/23 tablet,extended release (K-Tab) witch letitia-glycerin (hamamel) 1 pad topical DAILY PRN hemorrhoids 12/27/22 06/14/23 topical pads (Hemorrhoidal Medicated topical pads) aspirin 81 mg capsule 81 mg PO DAILY 01/09/23 06/14/23 calcium carbonate 500 mg calcium 500 mg PO TID 01/09/23 06/14/23 (1,250 mg) tablet diltiazem HCl 180 mg 180 mg PO DAILY 01/09/23 06/14/23 capsule,extended release 24 hr donepezil 10 mg tablet (Aricept) 10 mg PO DAILY 01/09/23 06/14/23 dorzolamide-timolol (PF) 2 %-0.5 % 1 drp ophthalmic (eye) BID 01/09/23 06/14/23 eye drops in a dropperette famotidine 20 mg tablet 20 mg PO DAILY 01/09/23 06/14/23 ferrous sulfate 325 mg (65 mg 325 mg PO .every other day 01/09/23 06/14/23 iron) tablet fluticasone propionate 50 2 spray intranasal DAILY PRN nasal 01/09/23 06/14/23 mcg/actuation nasal congestion spray,suspension (Flonase Allergy Relief) furosemide 20 mg tablet 40 mg PO QAM 01/09/23 06/14/23 losartan 100 mg tablet 50 mg PO DAILY 01/09/23 06/14/23 magnesium oxide,aspartate,citr 400 mg PO BEDTIME 01/09/23 06/14/23 metoprolol tartrate 25 mg tablet 25 mg PO BID 01/09/23 06/14/23 kbpqfabt-ul-dmarq 300 mcg-K 60 1 tab PO DAILY 01/09/23 06/14/23 mcg-lycop 600 mcg-lutein 300 mcg tablet (Centrum Silver Men) psyllium husk 0.4 gram capsule 0.4 g PO DAILY 01/09/23 06/14/23 (Metamucil) tamsulosin 0.4 mg capsule (Flomax) 0.4 mg PO DAILY 01/09/23 06/14/23 atorvastatin 20 mg tablet 40 mg PO DAILY 01/10/23 06/14/23 baclofen 10 mg tablet 10 mg PO .qhs muscle spasm 01/10/23 06/14/23 glipizide 5 mg tablet 5 mg PO DAILY 05/15/23 06/14/23 dapagliflozin propanediol 10 mg 10 mg PO DAILY 06/10/23 06/14/23 tablet (Farxiga) hydrocodone 5 mg-acetaminophen 325 1 tab PO Q4H PRN pain 06/10/23 06/14/23 mg tablet pregabalin 150 mg capsule (Lyrica) 75 mg PO BEDTIME 06/10/23 06/14/23 pregabalin 75 mg capsule (Lyrica) 75 mg PO DAILY 06/10/23 06/14/23 Previous Rx's Medication Instructions Recorded ondansetron 4 mg disintegrating 4 mg PO Q6H PRN nausea and 02/05/23 tablet vomiting #12 tabs Allergies Allergy/AdvReac Type Severity Reaction Status Date / Time tizanidine [From Zanaflex] Allergy Unknown Verified 05/05/23 08:22 acetaminophen [From Percocet] AdvReac Mild Vomiting Verified 05/05/23 08:22 cyclobenzaprine AdvReac Mild Hallucinati Verified 05/05/23 08:22 [From Flexeril] ng oxycodone [From Percocet] AdvReac Mild Vomiting Verified 05/05/23 08:22 tramadol AdvReac Mild Vomiting Verified 05/05/23 08:22 Review of Systems ROS Status of ROS 10 or more systems reviewed and unremarkable except as noted in history and below [facility] Medical History Lumbar stenosis with neurogenic claudication ?M48.062 - Spinal stenosis, lumbar region with neurogenic claudication (ICD-10) Osteoarthritis of right knee ?M17.11 - Unilateral primary osteoarthritis, right knee (ICD-10) Chronic pain syndrome ?G89.4 - Chronic pain syndrome (ICD-10) Chronic prescription opiate use ?Z79.891 - senior living (current) use of opiate analgesic (ICD-10) Osteoarthritis, 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 - Primary osteoarthritis, unspecified shoulder (ICD-10) Right shoulder pain ?M25.511 - Pain in right shoulder (ICD-10) Lumbar radiculopathy ?M54.16 - Radiculopathy, lumbar region (ICD-10) Abdominal pain ?R10.9 - Unspecified abdominal pain (ICD-10) Nausea & vomiting ?R11.2 - Nausea with vomiting, unspecified (ICD-10) Esophagitis ?K20.90 - Esophagitis, unspecified without bleeding (ICD-10) Muscle spasm ?M62.838 - Other muscle spasm (ICD-10) Lumbar stenosis ?M48.061 - Spinal stenosis, lumbar region without neurogenic claudication (ICD-10) Lumbar spondylosis ?M47.816 - Spondylosis without myelopathy or radiculopathy, lumbar region (ICD-10) Retraction of blood clot ?I74.9 - Embolism and thrombosis of unspecified artery (ICD-10) Inguinal hernia ?K40.90 - Unilateral inguinal hernia, without obstruction or gangrene, not specified as recurrent (ICD-10) Presence of Watchman left atrial appendage closure device ?Z95.818 - Presence of other cardiac implants and grafts (ICD-10) Low back pain ?M54.50 - Low back pain, unspecified (ICD-10) Rheumatoid arthritis ?M06.9 - Rheumatoid arthritis, unspecified (ICD-10) Osteoarthritis ?M19.90 - Unspecified osteoarthritis, unspecified site (ICD-10) Gout ?M10.9 - Gout, unspecified (ICD-10) DVT (deep venous thrombosis) ?I82.409 - Acute embolism and thrombosis of unspecified deep veins of unspecified lower extremity (ICD-10) Bladder cancer ?C67.9 - Malignant neoplasm of bladder, unspecified (ICD-10) Hearing deficit ?H91.90 - Unspecified hearing loss, unspecified ear (ICD-10) IBS (irritable bowel syndrome) ?K58.9 - Irritable bowel syndrome without diarrhea (ICD-10) Acid reflux ?K21.9 - Gastro-esophageal reflux disease without esophagitis (ICD-10) Hypothyroid ?E03.9 - Hypothyroidism, unspecified (ICD-10) Diabetes 1.5, managed as type 2 ?E13.9 - Other specified diabetes mellitus without complications (ICD-10) Kidney stone ?N20.0 - Calculus of kidney (ICD-10) Prostate cancer ?C61 - Malignant neoplasm of prostate (ICD-10) CPAP (continuous positive airway pressure) dependence ?Z99.89 - Dependence on other enabling machines and devices (ICD-10) Sleep apnea ?G47.30 - Sleep apnea, unspecified (ICD-10) Hypercholesterolemia ?E78.00 - Pure hypercholesterolemia, unspecified (ICD-10) Hypertension ?I10 - Essential (primary) hypertension (ICD-10) Surgical History H/O transurethral resection of bladder tumor (TURBT) ?Z98.890 - Other specified postprocedural states (ICD-10) ?Z86.03 - Personal history of neoplasm of uncertain behavior (ICD-10) H/O arthroscopy of knee ?Z98.890 - Other specified postprocedural states (ICD-10) S/P tonsillectomy and adenoidectomy ?Z90.89 - Acquired absence of other organs (ICD-10) Previous back surgery ?Z98.890 - Other specified postprocedural states (ICD-10) H/O neck surgery ?Z98.890 - Other specified postprocedural states (ICD-10) Family History Other Family history of diabetes mellitus Social History Smoking status: Never smoker Non-prescribed substance use: denies use Previous occupational history: retired Known occupational exposures/hazards: No Highest level of school completed/degree received: high school graduate Little interest or pleasure in doing things: not at all Feeling down, depressed, or hopeless: not at all Feel stressed/tense/nervous/anxious/difficulty sleeping: not at all Do you think of yourself as: straight/heterosexual Gender Identity: male Exam Constitutional Vital Signs, click to edit/add: Last Vital Signs Temp 97.6 F 06/14/23 04:39 Pulse 81 06/14/23 04:40 Resp 16 06/14/23 04:40 BP 123/79 06/14/23 04:40 Pulse Ox 96 06/14/23 04:40 O2 Del Method Room Air 06/14/23 04:40 Common normals: oriented x3, healthy appearing, alert and well nourished General appearance: in distress (mild resp distress) Eye Common normals: EOMs intact bilaterally and conjunctivae normal Chest Common normals: inspection of chest normal Respiratory Common normals: clear to auscultation bilaterally Other: mild distress Cardio Common normals: regular rate, regular rhythm, S1 normal heart sound and S2 normal heart sound GI Common normals: Normal to inspection, nondistended, normoactive bowel sounds present, soft to palpation and non-tender Extremity Common normals: normal to inspection and full ROM Other: 1+ edema of his ankles Neuro Common normals: oriented x3, CN's II-XII intact bilaterally, moves all extremities, no focal motor deficits and no sensory deficits noted Psych Appearance: grossly normal Course Course Hospital Course: This is an 87-year-old male patient with a past medical history of DM 2, severe lumbar stenosis and chronic lumbar pain, BPH, hypertension, and hyperlipidemia who presented to Emergency Room last night with acute onset of shortness of breath. he was seen by pain management physician who placed him on pain patch which she started for the 1st time yesterday. He continued to take his scheduled [place] along with this patch. He developed acute shortness of breath with no chest pain. He called his son and his grandson who lives next door and both decided they need he needed to come in to be evaluated. Patient was admitted to the hospital for observation overnight. At the time of discharge he denies any further chest pain or shortness of breath. Overall he says he is back to his baseline and is ready to go home. cardiac evaluation has been negative with serial troponins normal, normal proBNP, normal chest x-ray and no events on telemetry. D-dimer was also negative. Chest x-ray was negative for any infection while blood cell count was normal. Discussed with the patient that this is an adverse reaction to his new pain patch and he has removed the pain patch since and has not had any further issues. He'll resume his home medications with the exception of the pain patch that he will discontinue until further evaluation by his pain management physician. He is to return to the Emergency Room with any worsening signs or symptoms. No changes to home medications Vital Signs Vital signs: Vital Signs Temperature 98.0 F 06/14/23 00:32 Pulse Rate 87 06/14/23 00:32 Respiratory Rate 20 06/14/23 00:32 Blood Pressure 119/81 06/14/23 00:32 Pulse Oximetry 95 06/14/23 00:32 Oxygen Delivery Method Room Air 06/14/23 00:32 Temperature 97.6 F 06/14/23 04:39 Pulse Rate 81 06/14/23 04:40 Respiratory Rate 16 06/14/23 04:40 Blood Pressure 123/79 06/14/23 04:40 Pulse Oximetry 96 06/14/23 04:40 Oxygen Delivery Method Room Air 06/14/23 04:40 MDM - SOB/Dyspnea MDM Narrative Medical decision making narrative: patient presents with acute onset of shortness of breath that started about 2 hours prior to arrival. Patient describes it as it felt like he was drowning. only mild chest pain. Patient concerned it may be a reaction to buprenorphine patch that he started yesterday. It was placed on at 2pm. His breathing started improving en route. He was still visibly short of breath and tachypnea on arrival. EKG with old RBBB. d-dimer and troponin neg. cxray clear. He continue to improve. Was given Solumedrol initially when he gave history of possible allergic reaction. This would be an atypical allergic reaction. as it remains unclear what happened to him discussed with the hospitalist plan to observe him overnight Lab Data Labs: Lab Results 06/14/23 06/14/23 Range/Units 01:04 02:42 WBC 5.1 (4.0-11.0) 10^3/uL RBC 4.09 L (4.70-6.10) 10^6/uL Hgb 13.6 L (14.0-18.0) g/dL Hct 40.1 L (42.0-54.0) % MCV 98.0 H (80.0-94.0) fL MCH 33.3 (25.9-34.0) pg MCHC 33.9 (29.9-35.2) g/dL RDW 14.5 (11.0-15.0) % Plt Count 127 L (150-450) 10^3/uL MPV 9.6 (9.5-13.5) fL Neut % (Auto) 66.1 (43.0-75.0) % Lymph % (Auto) 19.8 L (20.5-60.0) % Sherman % (Auto) 11.9 (1.7-12.0) % Eos % (Auto) 0.8 L (0.9-7.0) % Baso % (Auto) 0.2 (0.2-2.0) % Neut # (Auto) 3.3 (1.4-6.5) 10^3/uL Lymph # (Auto) 1.0 L (1.2-3.8) 10^3/uL Sherman # (Auto) 0.6 (0.3-0.8) 10^3/uL Eos # (Auto) 0.0 (0.0-0.7) 10^3/uL Baso # (Auto) 0.0 (0.0-0.1) 10^3/uL Abs Immat Gran (auto) 0.06 H (0.00-0.03) 10^3/uL Imm/Tot Granulo (auto) 1.2 H (0.0-0.5) % D-Dimer 0.23 (<=0.59) mg/L FEU Puncture Site Rr ABG pH 7.414 (7.350-7.450) ABG pCO2 39.0 (35.0-45.0) mmHg ABG pO2 69.9 L (80.0-100.0) mmHg ABG HCO3 24.9 (22.0-26.0) mmol/L ABG O2 Saturation 93.6 % ABG Base Excess 0.4 (-2.0-2.0) mmol/L Nicholas Test Positive (POSITIVE) Sodium 141 (136-145) mmol/L Potassium 3.9 (3.5-5.1) mmol/L Chloride 103 (98-107) mmol/L Carbon Dioxide 27.7 (21.0-32.0) mmol/L Anion Gap 14.2 BUN 27.0 H (7.0-18.0) mg/dL Creatinine 1.30 (0.70-1.30) mg/dL Est GFR ( Amer) >60 (>=60) Est GFR (Non-Af Amer) 52 L (>=60) BUN/Creatinine Ratio 20.8 Glucose 170 H (74-106) mg/dL Calcium 8.8 (8.5-10.1) mg/dL Troponin I High Sens 9.9 (4.0-76.1) pg/mL NT-Pro-B Natriuret Pep 218.0 (<=1800.0) pg/mL Discharge Plan Discharge Chief Complaint: Shortness of Breath/Dyspnea Clinical Impression: Acute dyspnea Patient Disposition: Admitted as Observation Condition: Good Discharge Date/Time: 06/14/23 04:40
--- NOTE | 2023-06-14 00:53 | XR_ITS ---
The [address] [address] Patient Name: GUILLERMINA GUADALUPE MRN: [id number] date: 1935 Sex: M Assigned Patient Location: ER Current Patient Location: ER Accession/Order Number: [id number] Exam Date: 06/14/2023 01:05 Report Date: 06/14/2023 01:26 At the request of: KATE BAKER Procedure: XR chest 1V EXAMINATION: XR chest 1V HISTORY: short of breath COMPARISON: XR chest 06/10/2023 FINDINGS: LUNGS: No significant pulmonary parenchymal abnormalities. VASCULATURE: No increased pulmonary vasculature. PLEURA: No pneumothorax, effusion, or pleural thickening. CARDIAC: No cardiomegaly or cardiac silhouette abnormality. MEDIASTINUM: No visible mass or adenopathy. BONES: No fracture or visible bone lesion. OTHER: Negative. XR/XR chest 1V IMPRESSION: 1. No acute cardiopulmonary process. Stable chest. Electronically authenticated by: BRISA SALAS Date: 06/14/2023 01:26
--- NOTE | 2023-06-14 00:53 | ECG_ITS ---
The [facility] Test Date: 2023-06-14 Pat Name: GUILLERMINA GUADALUPE Department: Room: - Gender: Male Undercoater: : 1935 Requested By: SHAIKH NICHOLAS Order Number: [id number] Reading MD: ADEBAYO REA Measurements Intervals [place] Rate: 89 P: 44 IN: 140 QRS: 192 QRSD: 132 T: -4 QT: 398 QTc: 445 Interpretive Statements 1100 Sinus rhythm 2450 Right bundle branch block 7300 Indeterminate axis 9150 abnormal ECG Compared to ECG 06/10/2023 11:34:53 No significant changes Electronically Signed On 06-15-2023 17:50:22 EST by ADEBAYO REA
[2023-06-14 01:18] LABS: Basophils Percent Auto 0.2 % (0.2-2.0); Eosinophils Percent Auto 0.8 % (0.9-7.0); Hematocrit 40.1 % (42.0-54.0); Hemoglobin 13.6 g/dL (14.0-18.0); Immature Granulocytes Abs Auto 0.06 10^3/uL (0.00-0.03); Immature Granulocytes Pct Auto 1.2 % (0.0-0.5); Lymphocytes Percent Auto 19.8 % (20.5-60.0); Mean Corpuscular HGB Conc 33.9 g/dL (29.9-35.2); Mean Corpuscular Hemoglobin 33.3 pg (25.9-34.0); Mean Platelet Volume 9.6 fL (9.5-13.5); Monocytes Absolute Auto 0.6 10^3/uL (0.3-0.8); Monocytes Percent Auto 11.9 % (1.7-12.0); Neutrophils Absolute Auto 3.3 10^3/uL (1.4-6.5); Neutrophils Percent Auto 66.1 % (43.0-75.0); Platelet Count 127 10^3/uL (150-450); Red Blood Count 4.09 10^6/uL (4.70-6.10); Red Cell Distribution Width 14.5 % (11.0-15.0); White Blood Count 5.1 10^3/uL (4.0-11.0)
[2023-06-14 01:31] LABS: D Dimer 0.23 mg/L FEU (<=0.59)
[2023-06-14] MEDS: METHYLPREDNISOLONE SOD SUCC PF 125 MG/2 ML VIAL IVP (01:35)
[2023-06-14 01:43] LABS: Anion Gap 14.2; BUN Creatinine Ratio 20.8; Calcium 8.8 mg/dL (8.5-10.1); Carbon Dioxide 27.7 mmol/L (21.0-32.0); Chloride 103 mmol/L (98-107); Estimated GFR (African America >60 (>=60); Estimated GFR (Non-African Ame 52 (>=60); Glucose 170 mg/dL (74-106); Potassium 3.9 mmol/L (3.5-5.1); Sodium 141 mmol/L (136-145); Troponin I High Sensitivity 9.9 pg/mL (4.0-76.1)
[2023-06-14 02:45] VITALS: BP 138/86; PULSE 80; RESP 16; O2SAT 96
[2023-06-14 02:51] LABS: Base Excess ABG 0.4 mmol/L (-2.0-2.0); HCO3 ABG 24.9 mmol/L (22.0-26.0); PO2 ABG 69.9 mmHg (80.0-100.0); pH ABG 7.414 (7.350-7.450)
[2023-06-14 02:52] LABS: Allen Test POSITIVE (POSITIVE); O2 Mode ROOM AIR; Oxygen Saturation ABG 93.6 %; Puncture Site RR
--- NOTE | 2023-06-14 03:57 | PC.NURSE ---
Patient aware of admission, Family out for the night. Patient states feels better and breathing has improved.
[2023-06-14 04:39] VITALS: BP 148/84; PULSE 86; RESP 16; TEMP 36.4; O2SAT 97; BMI 25.0
[2023-06-14 04:40] VITALS: BP 123/79; PULSE 81; RESP 16; O2SAT 96
--- NOTE | 2023-06-14 05:37 | W.PM.TELEPN ---
Progress Note: Subjective Subjective Interval history: CC: Shortness of breath HPI: Mr. Chicas is 87 years old male brought in from home for evaluation of above complaints. Patient has memory issues therefore information not 100% reliable. Patient stating that 2 days ago he was prescribed a new pain patch in addition to Percocet that he has been taking before. He thinks that medication interaction caused him to be short of breath. He denies fevers or chills. No hemoptysis. No chest pain. No nausea or vomiting. No sick/ill contacts. Evaluation in the emergency room has been unremarkable. Shortness of breath seems to be subsided. Blood gas is normal. Admitted for further workup Exam Narrative Exam Narrative: ROS: 1.General: no fever, chills, not in distress 2.HEENT: no ROUSE, no blurry vision, no swallow problems, no nasal congestion, no sore throat 3.Pulmonary: See above 4.CVS: no CP, no palpitations, no RIOS, no SOB, no intermittent claudication 5.GI: no nausea, vomiting or diarrhea, no abdominal pain, no constipation, no hematemesis or hematochezia 6.: no renal colic, no hematuria, urinary frequency or urgency 7.Extremities: no edema 8.Neurological: no dizziness, vertigo, double or blurry vision, no no focal weakness, no paresthesia, no swallow or speech problems 9.Musculosceletal: no joint pains, no joint swelling, no back pain 10.Dermatological: no skin rashes, no lesions, no pruritus 11.Hematological: no bleeding, no hx/o clots 12.Endocrinological: no heat/cold intolerance, no hx/o diabetes 13.Psychiatric: no suicidal or homicidal thoughts Physical Exam: Not in distress, pleasant, lucid, cooperative, Head - atraumatic, eyes - pupils equal, round, reactive to light, extra ocular movement intact, MMM Neck - supple, thyroid not enlarged, LN not palpated Lungs - clear to auscultation, no dullness on percussion CVS - heart sounds S1, S2, no additional murmurs gallop, regular rate and rhythm Gastrointestinal?abdomen is soft, non-tender, non-distended, no organomegaly, positive bowel sounds Extremities no clubbing, cyanosis or edema Neurological?cranial nerve II?XII grossly intact, no meningeal signs, no cerebellar signs, no sensory deficit Musculoskeletal - DJD related changes in multiple joints, no effusions, ROM preserved Dermatological - the skin dry, warm, no rashes Psychiatric?patient has normal affect Constitutional Vital Signs, click to edit/add: Last Vital Signs Temp 97.6 F 06/14/23 04:39 Pulse 81 06/14/23 04:40 Resp 16 06/14/23 04:40 BP 123/79 06/14/23 04:40 Pulse Ox 96 06/14/23 04:40 O2 Del Method Room Air 06/14/23 04:40 Progress Note: Objective Labs Labs: Short CBC 06/14/23 Range/Units 01:04 WBC 5.1 (4.0-11.0) 10^3/uL Hgb 13.6 L (14.0-18.0) g/dL Hct 40.1 L (42.0-54.0) % Plt Count 127 L (150-450) 10^3/uL BMP 06/14/23 01:04 Sodium 141 Potassium 3.9 Chloride 103 Carbon Dioxide 27.7 BUN 27.0 H Creatinine 1.30 Glucose 170 H Calcium 8.8 Progress Note: A&P Assessment and Plan (1) Acute dyspnea: Assessment and Plan: Reason unclear. Patient able to maintain reasonable pulse ox without much intervention. Continue to monitor (2) Chronic prescription opiate use: Assessment and Plan: Restarted on home dose of narcotics (3) Lumbar stenosis with neurogenic claudication: Assessment and Plan: Chronic problem. Continue with pain control. Physical and Occupational Therapy ordered. Fall precautions (4) Gout: Assessment and Plan: Continue with home dose of allopurinol (5) Diabetes 1.5, managed as type 2: Assessment and Plan: Continue with ADA diet. I am going to hold off oral antiglycemic agents. Continue with insulin sliding scale and Accu-Cheks (6) Prostate cancer: Assessment and Plan: Continue tamsulosin. Defer to outpatient management Plan As the provider for the telehealth service, I attest that I introduced myself to the patient, provided my credentials, disclosed by location and determined that based on a review of the patient's chart and discussion with members of the patient's treatment team, telemedicine via real-time, 2 way, and interactive audio and video platform is an appropriate and effective means of providing the service. ?The patient and I mutually agree this visit is appropriate for telemedicine. ?The virtual encounter was taken place from? [place], [place]. ?The encounter took approximately 35 minutes. ?The nurse was present during the entire time and I was able to move the stethoscope in appropriate directions. ?The patient was evaluated at the Hospital ? Portions of this note may be dictated using [employer] voice recognition software. Variances in spelling and vocabulary are possible and unintentional. Not all errors may be caught and/or corrected. Please notify the author if any discrepancies are noted and/or if the meaning of any statement is unclear.? ? Patient verbally consented for treatment via video visit with patient currently located at the [facility] and provider located in [place]. Telemedicine Attestation Telemedicine Attestation I conducted this encounter from [[place]] via secure live, [id number] video conference with the patient, located at [facility] with [shortness of breath]. Prior to the interview, the risks and benefits of telemedicine were discussed with the patient and verbal consent was obtained.
[2023-06-14 06:05] LABS: Basophils Percent Auto 0.2 % (0.2-2.0); Eosinophils Percent Auto 0.2 % (0.9-7.0); Hematocrit 42.3 % (42.0-54.0); Hemoglobin 13.8 g/dL (14.0-18.0); Immature Granulocytes Abs Auto 0.03 10^3/uL (0.00-0.03); Immature Granulocytes Pct Auto 0.6 % (0.0-0.5); Lymphocytes Absolute Auto 0.5 10^3/uL (1.2-3.8); Lymphocytes Percent Auto 9.8 % (20.5-60.0); Mean Corpuscular HGB Conc 32.6 g/dL (29.9-35.2); Mean Corpuscular Hemoglobin 32.5 pg (25.9-34.0); Mean Corpuscular Volume 99.8 fL (80.0-94.0); Mean Platelet Volume 9.9 fL (9.5-13.5); Monocytes Absolute Auto 0.1 10^3/uL (0.3-0.8); Monocytes Percent Auto 2.1 % (1.7-12.0); Neutrophils Absolute Auto 4.1 10^3/uL (1.4-6.5); Neutrophils Percent Auto 87.1 % (43.0-75.0); Platelet Count 113 10^3/uL (150-450); Red Blood Count 4.24 10^6/uL (4.70-6.10); Red Cell Distribution Width 14.4 % (11.0-15.0); White Blood Count 4.7 10^3/uL (4.0-11.0)
[2023-06-14 06:13] LABS: Anion Gap 13.5; BUN Creatinine Ratio 24.8; Calcium 8.6 mg/dL (8.5-10.1); Carbon Dioxide 26.4 mmol/L (21.0-32.0); Chloride 102 mmol/L (98-107); Estimated GFR (African America >60 (>=60); Estimated GFR (Non-African Ame >60 (>=60); Glucose 286 mg/dL (74-106); Potassium 3.9 mmol/L (3.5-5.1); Sodium 138 mmol/L (136-145)
[2023-06-14] MEDS: HYDROCODONE/ACET 5-325 MG TABLET 1 TAB PO (06:16)
[2023-06-14] MEDS: LEVOTHYROXINE SODIUM 25 MCG TABLET 50 MCG PO (06:16)
[2023-06-14] MEDS: MAGNESIUM OXIDE 400 MG TABLET PO (06:16)
--- NOTE | 2023-06-14 08:45 | P.HP_ITS ---
H&P: HPI History of Present Illness Chief complaint: sob Narrative: This is an 87-year-old male patient with a past medical history of DM 2, severe lumbar stenosis and chronic lumbar pain, BPH, hypertension, and hyperlipidemia who presented to Emergency Room last night with acute onset of shortness of breath. he was seen by pain management physician who placed him on pain patch which she started for the 1st time yesterday. He continued to take his scheduled [place] along with this patch. He developed acute shortness of breath with no chest pain. He called his son and his grandson who lives next door and both decided they need he needed to come in to be evaluated. Patient was admitted to the hospital for observation overnight. At the time of admission exam he denies any further chest pain or shortness of breath. Overall he says he is back to his baseline and is ready to go home. Review of Systems ROS Narrative ROS: a complete review of systems were reviewed with patient and are positive as below or listed in History of Chief Complaint. General: no fever, chills, night sweats Head: no headache, trauma, visual changes, nausea or vomiting Skin: no reported rashes, itching or sores Eyes: no blurriness of vision Ears: no reported hearing loss, vertigo, earache, or tinnitus Throat: no sore throat, hoarseness, swelling of neck, or tongue pain Heart: no chest pain Lungs: no shortness of breath or cough GI: no diarrhea or vomiting/nausea Urinary: no urinary urgency, frequency or pain Neuro: no numbness or tingling HEM: no bleeding issues or bruising ENDO: no thyroid problems Psych: no anxiety or depression PFSH PFSH Medical History Lumbar stenosis with neurogenic claudication ?M48.062 - Spinal stenosis, lumbar region with neurogenic claudication (ICD- 10) Osteoarthritis of right knee ?M17.11 - Unilateral primary osteoarthritis, right knee (ICD-10) Chronic pain syndrome ?G89.4 - Chronic pain syndrome (ICD-10) Chronic prescription opiate use ?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 analgesic (ICD-10) Osteoarthritis, 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 - Primary osteoarthritis, unspecified shoulder (ICD-10) Right shoulder pain ?M25.511 - Pain in right shoulder (ICD-10) Lumbar radiculopathy ?M54.16 - Radiculopathy, lumbar region (ICD-10) Abdominal pain ?R10.9 - Unspecified abdominal pain (ICD-10) Nausea & vomiting ?R11.2 - Nausea with vomiting, unspecified (ICD-10) Esophagitis ?K20.90 - Esophagitis, unspecified without bleeding (ICD-10) Muscle spasm ?M62.838 - Other muscle spasm (ICD-10) Lumbar stenosis ?M48.061 - Spinal stenosis, lumbar region without neurogenic claudication (ICD-10) Lumbar spondylosis ?M47.816 - Spondylosis without myelopathy or radiculopathy, lumbar region (ICD-10) Retraction of blood clot ?I74.9 - Embolism and thrombosis of unspecified artery (ICD-10) Inguinal hernia ?K40.90 - Unilateral inguinal hernia, without obstruction or gangrene, not specified as recurrent (ICD-10) Presence of Watchman left atrial appendage closure device ?Z95.818 - Presence of other cardiac implants and grafts (ICD-10) Low back pain ?M54.50 - Low back pain, unspecified (ICD-10) Rheumatoid arthritis ?M06.9 - Rheumatoid arthritis, unspecified (ICD-10) Osteoarthritis ?M19.90 - Unspecified osteoarthritis, unspecified site (ICD-10) Gout ?M10.9 - Gout, unspecified (ICD-10) DVT (deep venous thrombosis) ?I82.409 - Acute embolism and thrombosis of unspecified deep veins of unspecified lower extremity (ICD-10) Bladder cancer ?C67.9 - Malignant neoplasm of bladder, unspecified (ICD-10) Hearing deficit ?H91.90 - Unspecified hearing loss, unspecified ear (ICD-10) IBS (irritable bowel syndrome) ?K58.9 - Irritable bowel syndrome without diarrhea (ICD-10) Acid reflux ?K21.9 - Gastro-esophageal reflux disease without esophagitis (ICD-10) Hypothyroid ?E03.9 - Hypothyroidism, unspecified (ICD-10) Diabetes 1.5, managed as type 2 ?E13.9 - Other specified diabetes mellitus without complications (ICD-10) Kidney stone ?N20.0 - Calculus of kidney (ICD-10) Prostate cancer ?C61 - Malignant neoplasm of prostate (ICD-10) CPAP (continuous positive airway pressure) dependence ?Z99.89 - Dependence on other enabling machines and devices (ICD-10) Sleep apnea ?G47.30 - Sleep apnea, unspecified (ICD-10) Hypercholesterolemia ?E78.00 - Pure hypercholesterolemia, unspecified (ICD-10) Hypertension ?I10 - Essential (primary) hypertension (ICD-10) Surgical History H/O transurethral resection of bladder tumor (TURBT) ?Z98.890 - Other specified postprocedural states (ICD-10) ?Z86.03 - Personal history of neoplasm of uncertain behavior (ICD-10) H/O arthroscopy of knee ?Z98.890 - Other specified postprocedural states (ICD-10) S/P tonsillectomy and adenoidectomy ?Z90.89 - Acquired absence of other organs (ICD-10) Previous back surgery ?Z98.890 - Other specified postprocedural states (ICD-10) H/O neck surgery ?Z98.890 - Other specified postprocedural states (ICD-10) Family History Other Family history of diabetes mellitus Social History Smoking status: Never smoker Non-prescribed substance use: denies use Previous occupational history: retired Known occupational exposures/hazards: No Highest level of school completed/degree received: high school graduate Little interest or pleasure in doing things: not at all Feeling down, depressed, or hopeless: not at all Feel stressed/tense/nervous/anxious/difficulty sleeping: not at all Do you think of yourself as: straight/heterosexual Gender Identity: male Meds Home Medications and Allergies Home Medications Medication Instructions Recorded Confirmed Type albuterol sulfate 90 mcg/actuation 1 inh inhalation Q4H PRN shortness 12/27/22 06/14/23 History aerosol inhaler (ProAir HFA) of breath or wheezing allopurinol 300 mg tablet 300 mg PO .QD 12/27/22 06/14/23 History cholecalciferol (vitamin D3) 25 50 mcg PO DAILY 12/27/22 06/14/23 History mcg (1,000 unit) capsule (Vitamin D3) levothyroxine 50 mcg tablet 50 mcg PO .QD 12/27/22 06/14/23 History nitroglycerin 0.4 mg sublingual 0.4 mg sublingual Q5M PRN chest 12/27/22 06/14/23 History tablet (Nitrostat) pain potassium chloride 20 mEq 20 meq PO DAILY 12/27/22 06/14/23 History tablet,extended release (K-Tab) witch letitia-glycerin (hamamel) 1 pad topical DAILY PRN hemorrhoids 12/27/22 06/14/23 History topical pads (Hemorrhoidal Medicated topical pads) aspirin 81 mg capsule 81 mg PO DAILY 01/09/23 06/14/23 History calcium carbonate 500 mg calcium 500 mg PO TID 01/09/23 06/14/23 History (1,250 mg) tablet diltiazem HCl 180 mg 180 mg PO DAILY 01/09/23 06/14/23 History capsule,extended release 24 hr donepezil 10 mg tablet (Aricept) 10 mg PO DAILY 01/09/23 06/14/23 History dorzolamide-timolol (PF) 2 %-0.5 % 1 drp ophthalmic (eye) BID 01/09/23 06/14/23 History eye drops in a dropperette famotidine 20 mg tablet 20 mg PO DAILY 01/09/23 06/14/23 History ferrous sulfate 325 mg (65 mg 325 mg PO .every other day 01/09/23 06/14/23 History iron) tablet fluticasone propionate 50 2 spray intranasal DAILY PRN nasal 01/09/23 06/14/23 History mcg/actuation nasal congestion spray,suspension (Flonase Allergy Relief) furosemide 20 mg tablet 40 mg PO QAM 01/09/23 06/14/23 History losartan 100 mg tablet 50 mg PO DAILY 01/09/23 06/14/23 History magnesium oxide,aspartate,citr 400 mg PO BEDTIME 01/09/23 06/14/23 History metoprolol tartrate 25 mg tablet 25 mg PO BID 01/09/23 06/14/23 History [id number]-tp-tyosx 300 mcg-K 60 1 tab PO DAILY 01/09/23 06/14/23 History mcg-lycop 600 mcg-lutein 300 mcg tablet (Centrum Silver Men) psyllium husk 0.4 gram capsule 0.4 g PO DAILY 01/09/23 06/14/23 History (Metamucil) tamsulosin 0.4 mg capsule (Flomax) 0.4 mg PO DAILY 01/09/23 06/14/23 History atorvastatin 20 mg tablet 40 mg PO DAILY 01/10/23 06/14/23 History baclofen 10 mg tablet 10 mg PO .qhs muscle spasm 01/10/23 06/14/23 History ondansetron 4 mg disintegrating 4 mg PO Q6H PRN nausea and 02/05/23 06/14/23 Rx tablet vomiting #12 tabs glipizide 5 mg tablet 5 mg PO DAILY 05/15/23 06/14/23 History dapagliflozin propanediol 10 mg 10 mg PO DAILY 06/10/23 06/14/23 History tablet (Farxiga) hydrocodone 5 mg-acetaminophen 325 1 tab PO Q4H PRN pain 06/10/23 06/14/23 History mg tablet pregabalin 150 mg capsule (Lyrica) 75 mg PO BEDTIME 06/10/23 06/14/23 History pregabalin 75 mg capsule (Lyrica) 75 mg PO DAILY 06/10/23 06/14/23 History Allergies Allergy/AdvReac Type Severity Reaction Status Date / Time tizanidine [From Zanaflex] Allergy Unknown Verified 05/05/23 08:22 acetaminophen [From Percocet] AdvReac Mild Vomiting Verified 05/05/23 08:22 cyclobenzaprine AdvReac Mild Hallucinati Verified 05/05/23 08:22 [From Flexeril] ng oxycodone [From Percocet] AdvReac Mild Vomiting Verified 05/05/23 08:22 tramadol AdvReac Mild Vomiting Verified 05/05/23 08:22 Exam Narrative Exam Narrative: General: Patient is alert, and oriented to person, place and time with normal affect, proper hygiene Skin: no visible rashes, or ulcers Head: atraumatic, acephalic Eyes: PERRLA, no nystagmus present, conjunctiva clear, no scleral icterus Ears: normal Tympanic Membrane, normal gross auditory acuity Nose: symmetric, no discharge, no maxillary or frontal sinus tenderness Heart: Normal rate and rhythm, no murmurs/rubs/gallops Lungs: no audible wheezes, crackles and normal breath sounds all lung roper Abdomen: Normal audible bowel sounds, no distension, No palpable masses, no organomegaly, no rebound/guarding/ or rigidity Neuro: CN II-X grossly intact Constitutional Vital Signs, click to edit/add: Last Vital Signs Temp 97.6 F 06/14/23 04:39 Pulse 81 06/14/23 04:40 Resp 16 06/14/23 04:40 BP 123/79 06/14/23 04:40 Pulse Ox 96 06/14/23 04:40 O2 Del Method Room Air 06/14/23 04:40 Results Labs Labs: Short CBC 06/14/23 06/14/23 Range/Units 01:04 05:51 WBC 5.1 4.7 (4.0-11.0) 10^3/uL Hgb 13.6 L 13.8 L (14.0-18.0) g/dL Hct 40.1 L 42.3 (42.0-54.0) % Plt Count 127 L 113 L (150-450) 10^3/uL BMP 06/14/23 06/14/23 01:04 05:51 Sodium 141 138 Potassium 3.9 3.9 Chloride 103 102 Carbon Dioxide 27.7 26.4 BUN 27.0 H 27.0 H Creatinine 1.30 1.09 Glucose 170 H 286 H Calcium 8.8 8.6 ABG ABG results: 06/14/23 02:42 ABG pH 7.414 ABG pCO2 39.0 ABG pO2 69.9 L ABG HCO3 24.9 ABG O2 Saturation 93.6 ABG Base Excess 0.4 Assessment and Plan Assessment and Plan (1) Acute dyspnea: Assessment and Plan: d-dimer was negative, chest x-ray was negative for infection, normal white blood cell count. Initial troponin was normal, normal proBNP and no signs of congestive heart failure. We'll repeat one more troponin today and there has been no events on telemetry. Patient's acute dyspnea has resolved and there was no hypoxia or need for any oxygen therapy. I feel that this is just an adverse reaction from his pain patch. (2) Chronic prescription opiate use: Assessment and Plan: continue home medications (3) Lumbar stenosis with neurogenic claudication: Assessment and Plan: continue home medications (4) Gout: Qualifiers: Gout site: unspecified site Gout etiology: idiopathic Chronicity: chronic (5) Diabetes 1.5, managed as type 2: Assessment and Plan: continue sliding scale insulin and fingersticks every before meals daily at bedtime (6) Prostate cancer: Assessment and Plan: continue home medications Plan patient is in observation status and is not expected to stay more than two midnights patient is a full code continue lovenox for DVT prophylaxis
[2023-06-14 09:21] LABS: Troponin I High Sensitivity 9.6 pg/mL (4.0-76.1)
[2023-06-14] MEDS: INSULIN ASPART 300 UNIT/3 ML PEN SUBQ ×2 (09:43→12:00)
[2023-06-14] MEDS: PSYLLIUM 1 GM PO (09:44)
[2023-06-14] MEDS: DONEPEZIL HCL 10 MG TABLET PO (09:44)
[2023-06-14] MEDS: POTASSIUM CHLORIDE 10 MEQ ER TABLET 20 MEQ PO (09:44)
[2023-06-14] MEDS: LOSARTAN POTASSIUM 50 MG TABLET PO (09:44)
[2023-06-14] MEDS: ALLOPURINOL 300 MG TABLET PO (09:44)
[2023-06-14] MEDS: CHOLECALCIFEROL (VITAMIN D3) 25 MCG/1,000 UNITS TABLET 50 MCG PO (09:44)
[2023-06-14] MEDS: FAMOTIDINE 20 MG TABLET PO (09:44)
[2023-06-14] MEDS: MULTIVITAMIN TABLET 1 TAB PO (09:45)
[2023-06-14] MEDS: METOPROLOL TARTRATE 25 MG TABLET PO (09:45)
[2023-06-14] MEDS: TAMSULOSIN HCL 0.4 MG CAPSULE PO (09:45)
[2023-06-14] MEDS: ATORVASTATIN CALCIUM 20 MG TABLET 40 MG PO (09:45)
[2023-06-14] MEDS: PREGABALIN 75 MG CAPSULE PO (09:45)
[2023-06-14] MEDS: ASPIRIN 81 MG TABLET.DR PO (09:45)
[2023-06-14] MEDS: DILTIAZEM HCL 180 MG CAP.ER.24H PO (09:45)
[2023-06-14] MEDS: FUROSEMIDE 20 MG TABLET 40 MG PO (09:45)
[2023-06-14] MEDS: FERROUS SULFATE 325 MG TABLET PO (09:46)
[2023-06-14 12:01] LABS: Glucometer 376 mg/dL (74-106)
--- NOTE | 2023-06-14 14:00 | P.DS_ITS ---
DS: Providers Provider Date of admission: 06/14/23 04:33 Primary care physician: Shaikh Lexi MD Admitting clinician: Bj De Souza Consults: 06/14/23 05:45 Occupational Therapy Eval and Treat Routine Reason for consultation: Gait disturbance Physical Therapy Eval and Treat Routine Reason for consultation: Gait disturbance Discharging clinician: Liza Mark DS: Diagnosis Discharge Diagnosis (1) Acute dyspnea: (2) Chronic prescription opiate use: (3) Lumbar stenosis with neurogenic claudication: (4) Gout: Qualifiers: Gout site: unspecified site Gout etiology: idiopathic Chronicity: chronic (5) Diabetes 1.5, managed as type 2: (6) Prostate cancer: DS: Summary Hospital Course Hospital Course: This is an 87-year-old male patient with a past medical history of DM 2, severe lumbar stenosis and chronic lumbar pain, BPH, hypertension, and hyperlipidemia who presented to Emergency Room last night with acute onset of shortness of breath. he was seen by pain management physician who placed him on pain patch which she started for the 1st time yesterday. He continued to take his scheduled [place] along with this patch. He developed acute shortness of breath with no chest pain. He called his son and his grandson who lives next door and both decided they need he needed to come in to be evaluated. Patient was admitted to the hospital for observation overnight. At the time of discharge he denies any further chest pain or shortness of breath. Overall he says he is back to his baseline and is ready to go home. cardiac evaluation has been negative with serial troponins normal, normal proBNP, normal chest x-ray and no events on telemetry. D-dimer was also negative. Chest x-ray was negative for any infection while blood cell count was normal. Discussed with the patient that this is an adverse reaction to his new pain patch and he has removed the pain patch since and has not had any further issues. He'll resume his home medications with the exception of the pain patch that he will discontinue until further evaluation by his pain management physician. He is to return to the Emergency Room with any worsening signs or symptoms. No changes to home medications Status at Discharge Functional status at discharge: uses cane/walker Overall status at discharge: patient is progressing back to baseline Time Spent with Patient Time attestation: Total time spent providing and/or coordinating discharge services: Time spent: greater than 30 minutes Exam Narrative Exam Narrative: no changes to discharge exam from the exam done on H and P dated 06/14/23 Constitutional Vital Signs, click to edit/add: Last Vital Signs Temp 97.6 F 06/14/23 04:39 Pulse 81 06/14/23 04:40 Resp 16 06/14/23 04:40 BP 123/79 06/14/23 04:40 Pulse Ox 96 06/14/23 04:40 O2 Del Method Room Air 06/14/23 04:40 DS: Data Data Completed and Pending Labs on day of discharge: Labs from last 24 hours 06/14/23 06/14/23 06/14/23 11:59 08:55 05:51 WBC 4.7 RBC 4.24 L Hgb 13.8 L Hct 42.3 MCV 99.8 H MCH 32.5 MCHC 32.6 RDW 14.4 Plt Count 113 L MPV 9.9 Neut % (Auto) 87.1 H Lymph % (Auto) 9.8 L [place] % (Auto) 2.1 Eos % (Auto) 0.2 L Baso % (Auto) 0.2 Neut # (Auto) 4.1 Lymph # (Auto) 0.5 L [place] # (Auto) 0.1 L Eos # (Auto) 0.0 Baso # (Auto) 0.0 Abs Immat Gran (auto) 0.03 Imm/Tot Granulo (auto) 0.6 H D-Dimer Puncture Site ABG pH ABG pCO2 ABG pO2 ABG HCO3 ABG O2 Saturation ABG Base Excess Nicholas Test Sodium 138 Potassium 3.9 Chloride 102 Carbon Dioxide 26.4 Anion Gap 13.5 BUN 27.0 H Creatinine 1.09 Est GFR ( Amer) >60 Est GFR (Non-Af Amer) >60 BUN/Creatinine Ratio 24.8 Glucose 286 H Calcium 8.6 Troponin I High Sens 9.6 NT-Pro-B Natriuret Pep POC Glucose 376 H 06/14/23 06/14/23 02:42 01:04 WBC 5.1 RBC 4.09 L Hgb 13.6 L Hct 40.1 L MCV 98.0 H MCH 33.3 MCHC 33.9 RDW 14.5 Plt Count 127 L MPV 9.6 Neut % (Auto) 66.1 Lymph % (Auto) 19.8 L [place] % (Auto) 11.9 Eos % (Auto) 0.8 L Baso % (Auto) 0.2 Neut # (Auto) 3.3 Lymph # (Auto) 1.0 L [place] # (Auto) 0.6 Eos # (Auto) 0.0 Baso # (Auto) 0.0 Abs Immat Gran (auto) 0.06 H Imm/Tot Granulo (auto) 1.2 H D-Dimer 0.23 Puncture Site Rr ABG pH 7.414 ABG pCO2 39.0 ABG pO2 69.9 L ABG HCO3 24.9 ABG O2 Saturation 93.6 ABG Base Excess 0.4 Nicholas Test Positive Sodium 141 Potassium 3.9 Chloride 103 Carbon Dioxide 27.7 Anion Gap 14.2 BUN 27.0 H Creatinine 1.30 Est GFR ( Amer) >60 Est GFR (Non-Af Amer) 52 L BUN/Creatinine Ratio 20.8 Glucose 170 H Calcium 8.8 Troponin I High Sens 9.9 NT-Pro-B Natriuret Pep 218.0 POC Glucose Discharge Plan Discharge Disposition: Home Health Service Condition: Good Discharge Medications: Continued donepezil [Aricept] 10 mg tablet 10 mg PO DAILY aspirin 81 mg capsule 81 mg PO DAILY calcium carbonate 500 mg calcium (1,250 mg) tablet 500 mg PO TID Centrum Silver Men 300-600-300 mcg tablet 1 tab PO DAILY diltiazem HCl 180 mg capsule,extended release 24hr 180 mg PO DAILY dorzolamide-timolol (PF) 2-0.5 % dropperette 1 drp ophthalmic (eye) BID ferrous sulfate 325 mg (65 mg iron) tablet 325 mg PO .every other day famotidine 20 mg tablet 20 mg PO DAILY tamsulosin [Flomax] 0.4 mg capsule 0.4 mg PO DAILY fluticasone propionate [Flonase Allergy Relief] 50 mcg/actuation spray,suspension 2 spray intranasal DAILY PRN (Reason: nasal congestion) Rx Instructions: administer into each nostril furosemide 20 mg tablet 40 mg PO QAM losartan 100 mg tablet 50 mg PO DAILY magnesium oxide,aspartate,citr 400 mg magnesium capsule 400 mg PO BEDTIME psyllium husk [Metamucil] 0.4 gram capsule 0.4 g PO DAILY metoprolol tartrate 25 mg tablet 25 mg PO BID atorvastatin 20 mg tablet 40 mg PO DAILY baclofen 10 mg tablet 10 mg PO .qhs glipizide 5 mg tablet 5 mg PO DAILY ondansetron 4 mg tablet,disintegrating 4 mg PO Q6H PRN (Reason: nausea and vomiting) Qty: 12 0RF pregabalin [Lyrica] 75 mg capsule 75 mg PO DAILY Patient Comments: takes 1 in am and 2 in pm pregabalin [Lyrica] 150 mg capsule 75 mg PO BEDTIME Farxiga 10 mg tablet 10 mg PO DAILY hydrocodone-acetaminophen 5-325 mg tablet 1 tab PO Q4H PRN (Reason: pain) Rx Instructions: 1 tablet every 4-6 hours as needed for chronic back pain allopurinol 300 mg tablet 300 mg PO .QD levothyroxine 50 mcg tablet 50 mcg PO .QD cholecalciferol (vitamin D3) [Vitamin D3] 25 mcg (1,000 unit) capsule 50 mcg PO DAILY Hemorrhoidal Medicated Pads, Medicated 1 pad topical DAILY PRN (Reason: hemorrhoids) albuterol sulfate [ProAir HFA] 90 mcg/actuation HFA aerosol inhaler 1 inh inhalation Q4H PRN (Reason: shortness of breath or wheezing) potassium chloride [K-Tab] 20 mEq tablet extended release 20 meq PO DAILY nitroglycerin [Nitrostat] 0.4 mg tablet, sublingual 0.4 mg sublingual Q5M PRN (Reason: chest pain) Rx Instructions: do not exceed 3 doses per episode Discontinued buprenorphine 5 mcg/hour patch weekly 1 patch transdermal QWEEK Activity: ambulate only with your walker Diet: advance to your usual diet Forms: Portal Instructions Follow Up Appointments: follow up with Pain management to discuss further [place] atment options 5-7 days, stop patch until then resume home health services
== END 2023-06-14 14:35 | disposition home health service (06) ==
LOC: ER 00:34 → MS 04:37
PROVIDERS: Family Medicine; Internal Medicine; Admitting Provider Internal Medicine; Emergency Provider Internal Medicine; PCP Internal Medicine; Visit Provider Internal Medicine
DX: R06.00 Dyspnea, unspecified (principal); M48.062 Spinal stenosis, lumbar region with neurogenic claudication; M1A.00X0 Idiopathic chronic gout, unspecified site, without tophus (tophi); E11.9 Type 2 diabetes mellitus without complications; C61 Malignant neoplasm of prostate; Z79.891 Long term (current) use of opiate analgesic; N40.0 Benign prostatic hyperplasia without lower urinary tract symptoms; I10 Essential (primary) hypertension; E78.5 Hyperlipidemia, unspecified; G89.4 Chronic pain syndrome; Z79.82 Long term (current) use of aspirin; M47.816 Spondylosis without myelopathy or radiculopathy, lumbar region; Z95.818 Presence of other cardiac implants and grafts; M06.9 Rheumatoid arthritis, unspecified; M19.90 Unspecified osteoarthritis, unspecified site; H91.90 Unspecified hearing loss, unspecified ear; K58.9 Irritable bowel syndrome, unspecified; K21.9 Gastro-esophageal reflux disease without esophagitis; Z87.442 Personal history of urinary calculi; Z99.89 Dependence on other enabling machines and devices; G47.30 Sleep apnea, unspecified; E78.00 Pure hypercholesterolemia, unspecified; Z98.890 Other specified postprocedural states; Z86.718 Personal history of other venous thrombosis and embolism; Z85.51 Personal history of malignant neoplasm of bladder; Z79.899 Other long term (current) drug therapy; Z79.890 Hormone replacement therapy; Z90.89 Acquired absence of other organs
CPT/HCPCS: 36415; 36600; 71045; 80048; 82805; 82948; 83880; 84484; 85025; 85378; 93005; 96374; 97161; 97530; 99285; G0378; J2930; Q3014

== ENCOUNTER 2023-06-15 01:32 | Emergency (ER) | payer MEDICARE, OTHER, SELFPAY ==
[2023-06-15 01:42] VITALS: BP 114/76; PULSE 96; RESP 15; TEMP 37; O2SAT 99; BMI 25.8
[2023-06-15 02:05] VITALS: O2SAT 97
--- NOTE | 2023-06-15 02:30 | ED.SOB1 ---
HPI - SOB/Dyspnea General Chief Complaint: Upper Respiratory Infection Stated Complaint: SHORTNESS OF BREATH Time Seen by Provider: 06/15/23 01:39 Source: family Mode of arrival: Wheelchair History of Present Illness HPI Narrative: patient seen last PM for shortness of breath. No clear etiology. Thought possibly related to buprenophine patch that was started yesterday. Observed overnight in the hospital. Discharged home asymptomatic. Tonight he called his son again stating he was short of breath. Son States he looked ok when he got there. Took his vital signs and they were ok. States then abruptly he starting trembling and shaking with shallow breath. He then decided to bring him in . Arrives here asymptomatic except with complaint of nasal congestion. No fever. Family states his skin felt cool while he was shaking. Not seizure like activity. family denies history of anxiety Related Data Home Medications Medication Instructions Recorded Confirmed albuterol sulfate 90 mcg/actuation 1 inh inhalation Q4H PRN shortness 12/27/22 06/14/23 aerosol inhaler (ProAir HFA) of breath or wheezing allopurinol 300 mg tablet 300 mg PO .QD 12/27/22 06/14/23 cholecalciferol (vitamin D3) 25 50 mcg PO DAILY 12/27/22 06/14/23 mcg (1,000 unit) capsule (Vitamin D3) levothyroxine 50 mcg tablet 50 mcg PO .QD 12/27/22 06/14/23 nitroglycerin 0.4 mg sublingual 0.4 mg sublingual Q5M PRN chest 12/27/22 06/14/23 tablet (Nitrostat) pain potassium chloride 20 mEq 20 meq PO DAILY 12/27/22 06/14/23 tablet,extended release (K-Tab) witch letitia-glycerin (hamamel) 1 pad topical DAILY PRN hemorrhoids 12/27/22 06/14/23 topical pads (Hemorrhoidal Medicated topical pads) aspirin 81 mg capsule 81 mg PO DAILY 01/09/23 06/14/23 calcium carbonate 500 mg calcium 500 mg PO TID 01/09/23 06/14/23 (1,250 mg) tablet diltiazem HCl 180 mg 180 mg PO DAILY 01/09/23 06/14/23 capsule,extended release 24 hr donepezil 10 mg tablet (Aricept) 10 mg PO DAILY 01/09/23 06/14/23 dorzolamide-timolol (PF) 2 %-0.5 % 1 drp ophthalmic (eye) BID 01/09/23 06/14/23 eye drops in a dropperette famotidine 20 mg tablet 20 mg PO DAILY 01/09/23 06/14/23 ferrous sulfate 325 mg (65 mg 325 mg PO .every other day 01/09/23 06/14/23 iron) tablet fluticasone propionate 50 2 spray intranasal DAILY PRN nasal 01/09/23 06/14/23 mcg/actuation nasal congestion spray,suspension (Flonase Allergy Relief) furosemide 20 mg tablet 40 mg PO QAM 01/09/23 06/14/23 losartan 100 mg tablet 50 mg PO DAILY 01/09/23 06/14/23 magnesium oxide,aspartate,citr 400 mg PO BEDTIME 01/09/23 06/14/23 metoprolol tartrate 25 mg tablet 25 mg PO BID 01/09/23 06/14/23 [id number] 300 mcg-K 60 1 tab PO DAILY 01/09/23 06/14/23 mcg-lycop 600 mcg-lutein 300 mcg tablet (Centrum Silver Men) psyllium husk 0.4 gram capsule 0.4 g PO DAILY 01/09/23 06/14/23 (Metamucil) tamsulosin 0.4 mg capsule (Flomax) 0.4 mg PO DAILY 01/09/23 06/14/23 atorvastatin 20 mg tablet 40 mg PO DAILY 01/10/23 06/14/23 baclofen 10 mg tablet 10 mg PO .qhs muscle spasm 01/10/23 06/14/23 glipizide 5 mg tablet 5 mg PO DAILY 05/15/23 06/14/23 dapagliflozin propanediol 10 mg 10 mg PO DAILY 06/10/23 06/14/23 tablet (Farxiga) hydrocodone 5 mg-acetaminophen 325 1 tab PO Q4H PRN pain 06/10/23 06/14/23 mg tablet pregabalin 150 mg capsule (Lyrica) 75 mg PO BEDTIME 06/10/23 06/14/23 pregabalin 75 mg capsule (Lyrica) 75 mg PO DAILY 06/10/23 06/14/23 Previous Rx's Medication Instructions Recorded ondansetron 4 mg disintegrating 4 mg PO Q6H PRN nausea and 02/05/23 tablet vomiting #12 tabs Allergies Allergy/AdvReac Type Severity Reaction Status Date / Time tizanidine [From Zanaflex] Allergy Unknown Verified 05/05/23 08:22 acetaminophen [From Percocet] AdvReac Mild Vomiting Verified 05/05/23 08:22 cyclobenzaprine AdvReac Mild Hallucinati Verified 05/05/23 08:22 [From Flexeril] ng oxycodone [From Percocet] AdvReac Mild Vomiting Verified 05/05/23 08:22 tramadol AdvReac Mild Vomiting Verified 05/05/23 08:22 Review of Systems ROS Status of ROS 10 or more systems reviewed and unremarkable except as noted in history and below [facility] Medical History Lumbar stenosis with neurogenic claudication ?M48.062 - Spinal stenosis, lumbar region with neurogenic claudication (ICD-10) Osteoarthritis of right knee ?M17.11 - Unilateral primary osteoarthritis, right knee (ICD-10) Chronic pain syndrome ?G89.4 - Chronic pain syndrome (ICD-10) Chronic prescription opiate use ?Z79.891 - FDC (current) use of opiate analgesic (ICD-10) Osteoarthritis, 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 - Primary osteoarthritis, unspecified shoulder (ICD-10) Right shoulder pain ?M25.511 - Pain in right shoulder (ICD-10) Lumbar radiculopathy ?M54.16 - Radiculopathy, lumbar region (ICD-10) Abdominal pain ?R10.9 - Unspecified abdominal pain (ICD-10) Nausea & vomiting ?R11.2 - Nausea with vomiting, unspecified (ICD-10) Esophagitis ?K20.90 - Esophagitis, unspecified without bleeding (ICD-10) Muscle spasm ?M62.838 - Other muscle spasm (ICD-10) Lumbar stenosis ?M48.061 - Spinal stenosis, lumbar region without neurogenic claudication (ICD-10) Lumbar spondylosis ?M47.816 - Spondylosis without myelopathy or radiculopathy, lumbar region (ICD-10) Retraction of blood clot ?I74.9 - Embolism and thrombosis of unspecified artery (ICD-10) Inguinal hernia ?K40.90 - Unilateral inguinal hernia, without obstruction or gangrene, not specified as recurrent (ICD-10) Presence of Watchman left atrial appendage closure device ?Z95.818 - Presence of other cardiac implants and grafts (ICD-10) Low back pain ?M54.50 - Low back pain, unspecified (ICD-10) Rheumatoid arthritis ?M06.9 - Rheumatoid arthritis, unspecified (ICD-10) Osteoarthritis ?M19.90 - Unspecified osteoarthritis, unspecified site (ICD-10) Gout ?M10.9 - Gout, unspecified (ICD-10) DVT (deep venous thrombosis) ?I82.409 - Acute embolism and thrombosis of unspecified deep veins of unspecified lower extremity (ICD-10) Bladder cancer ?C67.9 - Malignant neoplasm of bladder, unspecified (ICD-10) Hearing deficit ?H91.90 - Unspecified hearing loss, unspecified ear (ICD-10) IBS (irritable bowel syndrome) ?K58.9 - Irritable bowel syndrome without diarrhea (ICD-10) Acid reflux ?K21.9 - Gastro-esophageal reflux disease without esophagitis (ICD-10) Hypothyroid ?E03.9 - Hypothyroidism, unspecified (ICD-10) Diabetes 1.5, managed as type 2 ?E13.9 - Other specified diabetes mellitus without complications (ICD-10) Kidney stone ?N20.0 - Calculus of kidney (ICD-10) Prostate cancer ?C61 - Malignant neoplasm of prostate (ICD-10) CPAP (continuous positive airway pressure) dependence ?Z99.89 - Dependence on other enabling machines and devices (ICD-10) Sleep apnea ?G47.30 - Sleep apnea, unspecified (ICD-10) Hypercholesterolemia ?E78.00 - Pure hypercholesterolemia, unspecified (ICD-10) Hypertension ?I10 - Essential (primary) hypertension (ICD-10) Surgical History H/O transurethral resection of bladder tumor (TURBT) ?Z98.890 - Other specified postprocedural states (ICD-10) ?Z86.03 - Personal history of neoplasm of uncertain behavior (ICD-10) H/O arthroscopy of knee ?Z98.890 - Other specified postprocedural states (ICD-10) S/P tonsillectomy and adenoidectomy ?Z90.89 - Acquired absence of other organs (ICD-10) Previous back surgery ?Z98.890 - Other specified postprocedural states (ICD-10) H/O neck surgery ?Z98.890 - Other specified postprocedural states (ICD-10) Family History Other Family history of diabetes mellitus Social History Smoking status: Never smoker Non-prescribed substance use: denies use Previous occupational history: retired Known occupational exposures/hazards: No Highest level of school completed/degree received: high school graduate Little interest or pleasure in doing things: not at all Feeling down, depressed, or hopeless: not at all Feel stressed/tense/nervous/anxious/difficulty sleeping: not at all Do you think of yourself as: straight/heterosexual Gender Identity: male Exam Constitutional Vital Signs, click to edit/add: Last Vital Signs Temp 98.6 F 06/15/23 01:42 Pulse 96 H 06/15/23 01:42 Resp 15 06/15/23 01:42 BP 114/76 06/15/23 01:42 Pulse Ox 97 06/15/23 02:05 O2 Del Method Room Air 06/15/23 02:05 Common normals: no apparent distress, oriented x3, no limitations, healthy appearing, alert and well nourished Eye Common normals: EOMs intact bilaterally and conjunctivae normal Respiratory Common normals: normal respiratory effort, no retractions, no use of accessory muscles and clear to auscultation bilaterally Cardio Common normals: regular rate, regular rhythm, S1 normal heart sound and S2 normal heart sound GI Common normals: Normal to inspection, nondistended, normoactive bowel sounds present, soft to palpation and non-tender Extremity Common normals: normal to inspection and full ROM Neuro Common normals: oriented x3, CN's II-XII intact bilaterally, moves all extremities and no focal motor deficits Psych Appearance: grossly normal Course Vital Signs Vital signs: Vital Signs Temperature 98.6 F 06/15/23 01:42 Pulse Rate 96 H 06/15/23 01:42 Respiratory Rate 15 06/15/23 01:42 Blood Pressure 114/76 06/15/23 01:42 Pulse Oximetry 99 06/15/23 01:42 Oxygen Delivery Method Room Air 06/15/23 01:42 Temperature 98.6 F 06/15/23 01:42 Pulse Rate 96 H 06/15/23 01:42 Respiratory Rate 15 06/15/23 01:42 Blood Pressure 114/76 06/15/23 01:42 Pulse Oximetry 97 06/15/23 02:05 Oxygen Delivery Method Room Air 06/15/23 02:05 MDM - SOB/Dyspnea Lab Data Labs: Lab Results 06/15/23 06/15/23 06/15/23 Range/Units 02:30 02:36 04:05 WBC 10.3 (4.0-11.0) 10^3/uL RBC 4.13 L (4.70-6.10) 10^6/uL Hgb 13.8 L (14.0-18.0) g/dL Hct 40.6 L (42.0-54.0) % MCV 98.3 H (80.0-94.0) fL MCH 33.4 (25.9-34.0) pg MCHC 34.0 (29.9-35.2) g/dL RDW 14.3 (11.0-15.0) % Plt Count 159 (150-450) 10^3/uL MPV 10.2 (9.5-13.5) fL Seg Neuts % (Manual) 83.0 Lymphocytes % (Manual) 6.0 L (20.5-60.0) % Monocytes % (Manual) 11.0 (1.7-12.0) % Eosinophils % (Manual) 0.0 L (0.9-7.0) % Basophils % (Manual) 0.0 L (0.2-2.0) % Neutrophils # (Manual) 8.54 H (1.4-6.5) 10^3/uL Band Neutrophils # 0.6 H (0.0-0.3) 10^3/uL Lymphocytes # (Manual) 0.61 L (1.20-3.80) 10^3/uL Monocytes # (Manual) 1.13 H (0.30-0.80) 10^3/uL Eosinophils # (Manual) 0.00 (0.00-0.70) 10^3/uL Basophils # (Manual) 0.00 (0.00-0.10) 10^3/uL D-Dimer 0.22 (<=0.59) mg/L FEU Sodium 134 L (136-145) mmol/L Potassium 3.8 (3.5-5.1) mmol/L Chloride 98 (98-107) mmol/L Carbon Dioxide 25.2 (21.0-32.0) mmol/L Anion Gap 14.6 BUN 33.0 H (7.0-18.0) mg/dL Creatinine 1.21 (0.70-1.30) mg/dL Est GFR ( Amer) >60 (>=60) Est GFR (Non-Af Amer) 57 L (>=60) BUN/Creatinine Ratio 27.3 Glucose 259 H (74-106) mg/dL Calcium 8.6 (8.5-10.1) mg/dL Troponin I High Sens 12.6 (4.0-76.1) pg/mL Urine Color Lt. yellow (YELLOW) Urine Clarity Clear (CLEAR) Urine pH 6.0 (5.0-9.0) Ur Specific Russell 1.015 (1.005-1.025) Urine Protein Negative (NEG/TRACE) mg/dL Urine Glucose (UA) >=1000 A (NEGATIVE) mg/dL Urine Ketones Trace A (NEGATIVE) mg/dL Urine Occult Blood Trace-i (NEGATIVE) Urine Nitrite Negative (NEGATIVE) Urine Bilirubin Negative (NEGATIVE) Urine Urobilinogen 0.2 (0.2-1.0) EU/dL Ur Leukocyte Esterase Negative (NEGATIVE) Urine RBC 0-2 (0-2) #/HPF Urine WBC 0-2 A (NONE SEEN) #/HPF Ur Squamous Epith Cells None seen (NONE/RARE) #/LPF Urine Crystals None seen (None Seen) #/HPF Urine Bacteria None seen (NONE SEEN) #/HPF Urine Casts None seen (NONE SEEN) #/LPF Urine Mucus None seen (NONE SEEN) Discharge Plan Discharge Chief Complaint: Upper Respiratory Infection Clinical Impression: Shortness of breath, Anxiety Patient Disposition: Home, Self-Care Prescriptions / Home Meds: No Action donepezil [Aricept] 10 mg tablet 10 mg PO DAILY aspirin 81 mg capsule 81 mg PO DAILY calcium carbonate 500 mg calcium (1,250 mg) tablet 500 mg PO TID Centrum Silver Men 300-600-300 mcg tablet 1 tab PO DAILY diltiazem HCl 180 mg capsule,extended release 24hr 180 mg PO DAILY dorzolamide-timolol (PF) 2-0.5 % dropperette 1 drp ophthalmic (eye) BID ferrous sulfate 325 mg (65 mg iron) tablet 325 mg PO .every other day famotidine 20 mg tablet 20 mg PO DAILY tamsulosin [Flomax] 0.4 mg capsule 0.4 mg PO DAILY fluticasone propionate [Flonase Allergy Relief] 50 mcg/actuation spray,suspension 2 spray intranasal DAILY PRN (Reason: nasal congestion) Rx Instructions: administer into each nostril furosemide 20 mg tablet 40 mg PO QAM losartan 100 mg tablet 50 mg PO DAILY magnesium oxide,aspartate,citr 400 mg magnesium capsule 400 mg PO BEDTIME psyllium husk [Metamucil] 0.4 gram capsule 0.4 g PO DAILY metoprolol tartrate 25 mg tablet 25 mg PO BID atorvastatin 20 mg tablet 40 mg PO DAILY baclofen 10 mg tablet 10 mg PO .qhs glipizide 5 mg tablet 5 mg PO DAILY ondansetron 4 mg tablet,disintegrating 4 mg PO Q6H PRN (Reason: nausea and vomiting) Qty: 12 0RF pregabalin [Lyrica] 75 mg capsule 75 mg PO DAILY Patient Comments: takes 1 in am and 2 in pm pregabalin [Lyrica] 150 mg capsule 75 mg PO BEDTIME Farxiga 10 mg tablet 10 mg PO DAILY hydrocodone-acetaminophen 5-325 mg tablet 1 tab PO Q4H PRN (Reason: pain) Rx Instructions: 1 tablet every 4-6 hours as needed for chronic back pain allopurinol 300 mg tablet 300 mg PO .QD levothyroxine 50 mcg tablet 50 mcg PO .QD cholecalciferol (vitamin D3) [Vitamin D3] 25 mcg (1,000 unit) capsule 50 mcg PO DAILY Hemorrhoidal Medicated Pads, Medicated 1 pad topical DAILY PRN (Reason: hemorrhoids) albuterol sulfate [ProAir HFA] 90 mcg/actuation HFA aerosol inhaler 1 inh inhalation Q4H PRN (Reason: shortness of breath or wheezing) potassium chloride [K-Tab] 20 mEq tablet extended release 20 meq PO DAILY nitroglycerin [Nitrostat] 0.4 mg tablet, sublingual 0.4 mg sublingual Q5M PRN (Reason: chest pain) Rx Instructions: do not exceed 3 doses per episode Instructions: Panic Disorder (ED) Additional Instructions: use benadryl 50mg for recurrence of shortness of breath follow up with Dr Elliott Friday or Friday Stand Alone Forms: Portal Instructions Referrals: Shaikh Elliott MD [Primary Care Provider] - 1 week Discharge Date/Time: 06/15/23 06:12
--- NOTE | 2023-06-15 02:36 | ECG_ITS ---
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
--- NOTE | 2023-06-15 02:36 | XR_ITS ---
The [address] [address] Patient Name: GUILLERMINA GUADALUPE MRN: [id number] date: 1935 Sex: M Assigned Patient Location: ER Current Patient Location: ER Accession/Order Number: [id number] Exam Date: 06/15/2023 02:55 Report Date: 06/15/2023 03:37 At the request of: KATE BAKER Procedure: XR chest 2V EXAM: XR chest 2V HISTORY: short of breath COMPARISON: Chest radiograph dated 06/14/2023. TECHNIQUE: 2 views of the chest were obtained. FINDINGS: The cardiac silhouette is stable in size. The lungs are clear. There is no significant pneumothorax or pleural effusion. No acute osseous abnormality is seen. XR/XR chest 2V IMPRESSION: 1. No acute cardiopulmonary abnormality. Electronically authenticated by: Roya SMITH Date: 06/15/2023 03:37
[2023-06-15 02:55] VITALS: PULSE 83
[2023-06-15 03:18] LABS: Hematocrit 40.6 % (42.0-54.0); Hemoglobin 13.8 g/dL (14.0-18.0); Mean Corpuscular Hemoglobin 33.4 pg (25.9-34.0); Mean Corpuscular Volume 98.3 fL (80.0-94.0); Mean Platelet Volume 10.2 fL (9.5-13.5); Platelet Count 159 10^3/uL (150-450); Red Blood Count 4.13 10^6/uL (4.70-6.10); Red Cell Distribution Width 14.3 % (11.0-15.0); White Blood Count 10.3 10^3/uL (4.0-11.0)
[2023-06-15 03:38] LABS: D Dimer 0.22 mg/L FEU (<=0.59)
[2023-06-15 03:43] LABS: Anion Gap 14.6; BUN Creatinine Ratio 27.3; Calcium 8.6 mg/dL (8.5-10.1); Carbon Dioxide 25.2 mmol/L (21.0-32.0); Chloride 98 mmol/L (98-107); Estimated GFR (African America >60 (>=60); Estimated GFR (Non-African Ame 57 (>=60); Glucose 259 mg/dL (74-106); Potassium 3.8 mmol/L (3.5-5.1); Sodium 134 mmol/L (136-145); Troponin I High Sensitivity 12.6 pg/mL (4.0-76.1)
[2023-06-15 04:25] LABS: Band Neutrophils Absolute 0.6 10^3/uL (0.0-0.3); Lymphocytes Absolute Manual 0.61 10^3/uL (1.20-3.80); Monocytes Absolute Manual 1.13 10^3/uL (0.30-0.80); Segmented Neut Absolute Manual 8.54 10^3/uL (1.4-6.5)
[2023-06-15 04:51] LABS: Bilirubin Urine NEGATIVE (NEGATIVE); Blood Urine TRACE-I (NEGATIVE); Clarity Urine CLEAR (CLEAR); Color Urine LT. YELLOW (YELLOW); Glucose Urine UA >=1000 mg/dL (NEGATIVE); Ketones Urine TRACE mg/dL (NEGATIVE); Leukocyte Esterase Urine NEGATIVE (NEGATIVE); Nitrite Urine NEGATIVE (NEGATIVE); Protein Urine NEGATIVE (NEG/TRACE); Specific Gravity Urine 1.015 (1.005-1.025); Urobilinogen Urine 0.2 EU/dL (0.2-1.0)
[2023-06-15 04:58] LABS: Urine Microscopic Indicated YES
[2023-06-15 05:26] LABS: Bacteria Urine NONE SEEN #/HPF (NONE SEEN); Cast Seen? NONE SEEN #/LPF (NONE SEEN); Crystals Seen? None Seen #/HPF (None Seen); Mucus Urine NONE SEEN (NONE SEEN); RBC Urine 0-2 #/HPF (0-2); Squamous Epithelial Cell Urine NONE SEEN #/LPF (NONE/RARE); WBC Urine 0-2 #/HPF (NONE SEEN)
--- NOTE | 2023-06-16 15:10 | CM.DCFOLLOWU ---
Person spoke with: Grand- daughter How are you feeling? He is just sleeping d/t Benadryl How is your pain? No pain Did you understand your discharge instructions? Yes Do you have any questions about your discharge instructions? I just think he is taking too much Benadryl. Calling Doctor's office to get appt scheduled Were you given any prescriptions at discharge? No Were you able to get your prescriptions filled? N/A Do you understand how to take your medications as ordered? Yes Do you have any questions about your follow up appointment and do you plan to keep your follow up appointment? No awaiting Dr. Fontana office to call back. Is there anything else that you would like to discuss? No Questions/Comments/Concerns/Other:
== END 2023-06-15 06:12 | disposition home or self-care (01) ==
PROVIDERS: Emergency Provider Internal Medicine; PCP Internal Medicine
DX: R06.02 Shortness of breath (principal); F41.9 Anxiety disorder, unspecified; Z79.899 Other long term (current) drug therapy; Z79.82 Long term (current) use of aspirin; Z79.890 Hormone replacement therapy; M48.062 Spinal stenosis, lumbar region with neurogenic claudication; G89.4 Chronic pain syndrome; Z79.891 Long term (current) use of opiate analgesic; M47.816 Spondylosis without myelopathy or radiculopathy, lumbar region; Z95.818 Presence of other cardiac implants and grafts; M06.9 Rheumatoid arthritis, unspecified; M19.90 Unspecified osteoarthritis, unspecified site; M10.9 Gout, unspecified; Z86.718 Personal history of other venous thrombosis and embolism; Z85.51 Personal history of malignant neoplasm of bladder; H91.90 Unspecified hearing loss, unspecified ear; K21.9 Gastro-esophageal reflux disease without esophagitis; E03.9 Hypothyroidism, unspecified; E11.9 Type 2 diabetes mellitus without complications; Z87.442 Personal history of urinary calculi; Z85.46 Personal history of malignant neoplasm of prostate; G47.30 Sleep apnea, unspecified; Z99.89 Dependence on other enabling machines and devices; E78.00 Pure hypercholesterolemia, unspecified; I10 Essential (primary) hypertension; Z98.890 Other specified postprocedural states; Z90.89 Acquired absence of other organs
CPT/HCPCS: 36415; 71046; 80048; 81001; 84484; 85027; 85378; 93005; 99285

== ENCOUNTER 2023-07-18 18:57 | Observation (INO) | payer MEDICARE, SELFPAY ==
--- OUTSIDE RECORDS SUMMARY | 2023-07-18 19:03 | XMS_ITS | CCD ---
Author Name Unknown Address [address] [place] [address] Organization [facility] Care Team Providers Care Oil Expeller Name Role Phone PHYSICIAN, DEFAULT Unavailable Unavailable PHYSICIAN, DEFAULT Unavailable Unavailable KIERA LOMBARDO Primary Care Physician [phone] Franky Veronica Primary Care Provider SHAIKH ELLIOTT Primary Care Physician AURELIO DURAES, TRISTIN Referring Unava ilable VERONICA, FRANKY A Primary Care Unavailable AURELIO DURAES, TRISTIN Referring Unava ilable VERONICA, FRANKY A Primary Care Unavailable AURELIO DURAES, TRISTIN Attending Unava ilable SHAIKH ELLIOTT Referring Unavailable VERONICA, FRANKY A Primary Care Unavailable VERONICA, FRANKY A Primary Care Unavailable AURELIO DURAES, TRISTIN Referring Unava ilable VERONICA, FRANKY A Primary Care Unavailable AURELIO DURAES, TRISTIN Referring Unava ilable VERONICA, FRANKY A Primary Care Unavailable AURELIO DURAES, TRISTIN Referring Unava ilable VERONICA, FRANKY A Primary Care Unavailable AURELIO DURAES, TRISTIN Admitting Unava ilable AURELIO DURAES, TRISTIN Attending Unava ilFRANKY Mike Primary Care Unavailable SHAIKH Milena ELLIOTT Primary Care Unavailable URSULA ., DR JASSO Admitting Unavailable URSULA ., DR JASSO Attending Unavailable URSULA ., DR JASSO Consulting Unavailable MARITZA, DR BRISA Oh Consulting Unavailable SHAIKH Milena ELLIOTT Primary Care Unavailable CATRACHITO ., DR PAULINE Ring Admitting Unavailable CATRACHITO ., DR PAULINE Ring Attending Unavailable FAWWAD, DE LA O H Primary Care Unavailable WINSTON ., DR PAULINE Ring Consulting Unavailable WINSTON ., DR PAULINE Ring Admitting Unavailable WINSTON ., DR PAULINE Ring Attending Unavailable FAWWAD, DE LA O H Primary Care Unavailable FAWWAD, DE LA O H Admitting Unavailable FAWWAD, DE LA O H Attending Unavailable FAWWAD, DE LA O H Consulting Unavailable FAWWAD, DE LA O H Primary Care Unavailable AKKINA, REMY Admitting Unavailable AKKINA, REMY Attending Unavailable MARITZA, DR BRISA Oh Consulting Unavailable AKKINA, REMY Consulting Unavailable MOREJON ., CALVIN Consulting Unavailable FAWWAD, DE LA O H Primary Care Unavailable WINSTON ., DR PAULINE Ring Attending Unavailable WINSTON ., DR PAULINE Ring Admitting Unavailable LAKSHMIPATHY ., NARENDRANATH Attending Sweta vailable FAWWAD, DE LA O H Primary Care Unavailable LAKSHMIPATHY ., NARENDRANATH Admitting Sweta vailable FAWWAD, DE LA O H Consulting Unavailable FAWWAD, DE LA O H Primary Care Unavailable FAWWAD, DE LA O H Admitting Unavailable FAWWAD, DE LA O H Attending Unavailable FAWWAD, DE LA O H Primary Care Unavailable SHASHI, DR WALLS Consulting Unavailable NIMOUKANICOLE, DR WALLS Admitting Unavailable MOUKARBEL, DR WALLS Attending Unavailable LAKSHMIPATHY ., NARENDRANATH Attending Sweta vailable MOREJON ., CALVIN Consulting Unavailable FAWWAD, DE LA O H Primary Care Unavailable LAKSHMIPATHY ., NARENDRANATH Admitting Sweta vailable LAKSHMIPATHY ., NARENDRANATH Consulting Sweta vailable LAKSHMIPATHY ., NARENDRANATH Attending Sweta vailable LAKSHMIPATHY ., NARENDRANATH Consulting Sweta vailable FAWWAD, DE LA O H Primary Care Unavailable LAKSHMIPATHY ., NARENDRANATH Admitting Sweta vailable FAWWAD, DE LA O H Primary Care Unavailable WINSTON ., DR PAULINE Ring Attending Unavailable WINSTON ., DR PAULINE Ring Consulting Unavailable WINSTON ., DR PAULINE Ring Admitting Unavailable MOREJON ., CALVIN Consulting Unavailable FAWWAD, DE LA O H Primary Care Unavailable WINSTON ., DR PAULINE Ring Attending Unavailable WINSTON ., DR PAULINE Ring Admitting Unavailable MOREJON ., CALVIN Consulting Unavailable WINSTON ., DR PAULINE Ring Attending Unavailable REQUEST, DR NONE LISTED Primary Care Unavaila ble WINSTON ., DR PAULINE Ring Admitting Unavailable MOREJON ., CALVIN Consulting Unavailable [facility] Primary Care Unavailable WINSTON ., DR PAULINE Ring Attending Unavailable WINSTON ., DR PAULINE Ring Admitting Unavailable [facility] Primary Care Unavailable WEST, DR LEEANN Valles Consulting Unavailable MOUKARBEL, DR WALLS Admitting Unavailable MOUKARBEL, DR WALLS Attending Unavailable MOUKARBEL, DR WALLS Consulting Unavailable [facility] Primary Care Unavailable AKKINA, REMY Admitting Unavailable AKKINA, REMY Attending Unavailable WINSTON ., DR PAULINE Ring Consulting Unavailable AKKINA, REMY Consulting Unavailable REQUEST, DR NONE LISTED Primary Care Unavaila ble NILL ., DR HYMAN Admitting Unavailable NILL ., DR HYMAN Attending Unavailable NILL ., DR HYMAN Consulting Unavailable [facility] Consulting Unavailable NEFCY, BRITTANIE Consulting Unavailable [facility] Primary Care Unavailable VERGARA ., DR JASSO Admitting Unavailable VERGARA ., DR JASSO Attending Unavailable VERGARA ., DR JASSO Consulting Unavailable [facility] Primary Care Unavailable WINSTON ., DR PAULINE Ring Consulting Unavailable WINSTON ., DR PAULINE Ring Admitting Unavailable WINSTON ., DR PAULINE Ring Attending Unavailable LAKSHMIPATHY ., ROGELIO Attending Sweta vailable LAKSHMIPATHY ., ROGELIO Admitting Sweta vailable [facility] Primary Care Unavailable [facility] Primary Care Unavailable NILL ., DR HYMAN Attending Unavailable NILL ., DR HYMAN Consulting Unavailable NILL ., DR HYMAN Admitting Unavailable AGUBOSIM, ELIZ Consulting Unavailable DORKOSKLEO KANDICE Consulting Unavailable [facility], [facility] Primary Care Unavailable NILL ., DR HYMAN Attending Unavailable NILL ., DR HYMAN Admitting Unavailable [facility] Primary Care Unavailable VERGARA ., DR JASSO Admitting Unavailable VERGARA ., DR JASSO Attending Unavailable VERGARA ., DR JASSO Consulting Unavailable WINSTON ., DR PAULINE Ring Attending Unavailable WINSTON ., DR PAULINE Ring Consulting Unavailable [facility], [facility] Primary Care Unavailable WINSTON ., DR PAULINE Ring Admitting Unavailable MOREJON ., CALVIN Consulting Unavailable FAWWAD, DE LA O H Primary Care Unavailable CASTELLON ., DR COLTON Amador Consulting Unavailable CASTELLON ., DR COLTON Amador Procedure Practitioner Toñito CASTELLON ., DR COLTON Amador Admitting Unavailable CASTELLON ., DR COLTON Amador Attending Unavailable MOUKARBEL, DR WALLS Consulting Unavailable NILL ., DR HYMAN Consulting Unavailable OLIVIA, KATE Consulting Unavailable IVANCARMINA Consulting Unavailable MICHAEL SIPVEY Consulting Unavailable NERISSA ORDONEZ Referring Unavailable ANDREA COLORADO Attending Unavailable MOUKARBEL, KAVITA Referring Unavailable BARAZIMARITZA Referring Unavailable BARAZI, MARITZA Referring Unavailable MOUKARBEL, KAVITA Attending Unavailable MERY, NERISSA Attending Unavailable MERY, NERISSA Referring Unavailable MERYNERISSA MCCURDY Attending Unavailable MOUKARBEL, KAVITA Admitting Unavailable MOUKARBEL, KAVITA Attending Unavailable MERYNERISSA CHILDRESS Attending Unavailable BARSEBASTIANIMARITZA Attending Unavailable MOUKARBEL, KAVITA Attending Unavailable MERY, NERISSA Referring Unavailable ELTAHAWY, EHAB Referring Unavailable MERY, NERISSA Referring Unavailable Giedraitis MD, Andrius Deirdre Attending Unavailable Giedraitis MD, Andrius Vytautelizabeth Attending Unavailable Giedraitis MD, Andrius Vytautas Attending Unavailable Giedraitis MD, Andrius Vytautas Attending Unavailable Giedraitis MD, Andrius Vytautas Attending Unavailable Giedraitis MD, Andrius Vytautas Attending Unavailable Mekhi VERGARA Attending Unavailable BOONEWWAD, DE LA O Primary Care Unavailable Mekhi VERGARA Attending Unavailable FAWWAD, DE LA O Primary Care Unavailable Mekhi VERGARA R Admitting Unavailable Mekhi VERGARA Attending Unavailable Mekhi VERGARA R Referring Unavailable FAWWAD, DE LA O Primary Care Unavailable LEXI, DE LA O Attending Unavailable NITESH GANT Attending Unavailable FAWWAD, DE LA O Referring Unavailable CARMINA CROOK Attending Unavailable LEXI, DE LA O Referring Unavailable ANTONINAD, Attending Unavailable CARMINA CROOK Attending Unavailable LEXI, DE LA O Referring Unavailable Allergies Allergy Classification Reported Allergen(s) Allergy Type Date of Onset Reaction(s) Facility (8 sources) Acetaminophen / HYDROcodone; Translations: [acetaminophen-hydr ocodone] Drug Allergy Nausea and vomiting [facility] (14 sources) Acetaminophen / oxyCODONE; Translations: [acetaminophen-oxyc odone] Drug Allergy 06-03-20 16 Vomiting [facility] (16 sources) tiZANidine; Translations: [tizanidine] Drug Allergy 05-11-20 19 Mental Status Change, Vomiting [facility] (9 sources) traMADol; Translations: [tramadol] Drug Allergy 02-28-20 22 Hallucinations [facility] (2 sources) Acetaminophen / oxyCODONE; Translations: [OXYCODONE-ACETAMIN OPHEN] Drug Allergy 06-03-20 16 [facility] (2 sources) Acetaminophen / HYDROcodone Drug Allergy 06-03-20 16 [facility] (2 sources) Acetaminophen / oxyCODONE Drug Allergy 06-03-20 16 [facility] (2 sources) cyclobenzaprine Drug Allergy 07-18-19 17 [facility] (1 source) tiZANidine Drug Allergy [facility] (2 sources) traMADol Drug Allergy 06-12-20 16 [facility] Medications Current Medications Medication Drug Class(es) Dates Sig (Normalized) Sig (Original) [facility] oral capsule (4 sources) Start: 06-01-2019 take 1 capsule by mouth twice daily [facility] oral capsule cap(s), Oral, BID, Refill(s) 0, Prophylaxis Start Date: 06/01/19 Status: Ordered [id number] 200 actuat albuterol 0.09 mg/actuat metered dose inhaler (7 sources) beta2-Adrenergic Agonist Start: 10-15-2021 take 2 puff(s) by inhalation every six hours as needed for wheezing ProAir HFA 90 mcg/inh inhalation aerosol 2 puff(s), Inhalation, q6hr as needed for wheezing, Refill(s) 0 Start Date: 10/15/21 Status: Ordered ALBUTEROL SULFAT E (PROVENTIL INHALATION) Inhale as instructed. 0 Active Comment on above: Inhale as instructed . allopurinol 300 mg oral tablet (13 sources) Xanthine Oxidase Inhibitor Start: 06-01-20 take 1 tablet by mouth once daily allopurinol 300 mg Tab 300 mg = 1 tab(s), Oral, Daily, Refills(s) 0, Gout pain Start Date: 06/01/19 Status: Ordered Comment on above: Take 300 mg by mouth once daily. amLODIPine 5 mg oral tablet (8 sources) Dihydropyridine Calcium Channel Juliana Start: 07-10-19 End: 05-10-20 take 5 mg by mouth once daily amlodipine 5 mg, Oral, Daily, Refills(s) 0, High blood pressure Start Date: 07/10/21 Status: Ordered Comment on above: Take 5 mg by mouth o nce daily. aspirin 81 mg oral capsule (14 sources) Platelet Aggregation Inhibitor, Nonsteroidal Anti-inflammatory Drug Start: 12-24-19 take 1 mg by mouth every four hours aspirin 81 mg oral capsule mg cap(s), Oral, q4hr, Refills(s) 0 Start Date: 12/23/22 Status: Ordered Start: 06-01-2019 take 1 tablet by ravi th once daily aspirin 81 mg oral tablet 81 mg = 1 tab(s), Oral, Daily, Refills(s) 0 Start Date: 06/01/19 Status: Ordered take 1 tablet by ravi th once daily aspirin, enteric coated (ASPIRIN, ENTERIC COATED) 81 mg EC tablet Take 81 mg by mouth once daily. 0 Active Comment on above: Take 81 mg by mouth once daily. atorvastatin 20 mg oral tablet (12 sources) HMG-CoA Reductase Inhibitor Start: 10-16-19 take 1 tablet by mouth once daily atorvastatin 20 mg Tab 20 mg = 1 tab(s), Oral, Daily, Refills(s) 0 Start Date: 10/15/21 Status: Ordered Comment on above: Take 20 mg by mouth once daily. baclofen 10 mg oral tablet (12 sources) gamma-Aminobutyric Acid-ergic Agonist Start: 10-16-19 take 1 tablet by mouth at bedtime baclofen 10 mg Tab 10 mg = 1 tab(s), Oral, Bedtime, Refills(s) 0 Start Date: 10/15/21 Status: Ordered Comment on above: Take 10 mg by mouth three times daily. Centrum Silver oral tablet (7 sources) Start: 06-01-20 take 1 tablet by mouth once daily Centrum Silver oral tablet 1 tab(s), Oral, Daily, Refill(s) 0, Prophylaxis Start Date: 06/01/19 Status: Ordered cetirizine hydrochloride 10 mg oral capsule (3 sources) Histamine-1 Receptor Antagonist Start: 04-22-20 take 1 capsule by mouth once daily as needed cetirizine 10 mg oral capsule 10 mg = 1 cap(s), Oral, Daily, PRN for allergy symptoms, Refills(s) 0 Start Date: 04/22/22 Status: Ordered clopidogrel 75 mg oral tablet (1 source) P2Y12 Platelet Inhibitor Start: 12-24-19 clopidogrel 75 mg Tab Refills(s) 0 Start Date: 12/23/22 Status: Ordered dapagliflozin 5 mg oral tablet (9 sources) Sodium-Glucose Cotransporter 2 Inhibitor Start: 04-22-20 take 1 tablet by mouth once daily Farxiga 5 mg oral tablet 5 mg = 1 tab(s), Oral, Daily, Refills(s) 0 Start Date: 04/22/22 Status: Ordered take 1 tablet by ravi th once daily at breakfast dapagliflozin (FARXIGA) 10 mg tablet Anshu e by mouth daily with breakfast. 0 Active Comment on above: Take by mouth daily with breakfast. 24 hr dilTIAZem hydrochloride 180 mg extended release oral capsule (9 sources) Calcium Channel Juliana Start: 2 diltiazem CD 180 mg/24 hours Cap-ER 180 mg = 1 cap(s), Oral, Daily, Refills(s) 0 Start Date: 04/22/22 Status: Ordered Comment on above: Take 180 mg by mouth once daily. donepezil hydrochloride 10 mg oral tablet (13 sources) Start: 9 take 1 tablet by mouth once daily Aricept 10 mg Tab 10 mg = 1 tab(s), Oral, Daily, alzheimers, Other (see comment) Start Date: 06/01/19 Status: Ordered Comment on above: Take 10 mg by mouth daily at bedtime. dorzolamide (7 sources) Carbonic Anhydrase Inhibitor Start: 9 take 1 drop(s) into the eye(s) three times daily dorzolamide ophthalmic drop(s), Eye-Both, TID, Refill(s) 0, glaucoma, Other (see comment) Start Date: 06/01/19 Status: Ordered dorzolamide (FATIMAH SOPT) 2 % ophthalmic solution three times daily. 0 Active Comment on above: three times daily. dorzolamide / Timolol (7 sources) Carbonic Anhydrase Inhibitor, beta-Adrenergic Ujliana Start: 07-10-2021 take 1 drop(s) into the eye(s) twice daily dorzolamide-timolol ophthalmic 1 drop, Eye-Both, BID, Refill(s) 0, Glaucoma, Other (see comment) Start Date: 07/10/21 Status: Ordered famotidine 20 mg oral tablet (13 sources) Histamine-2 Receptor Antagonist Start: 07-10-2021 take 10 mg by mouth once daily famotidine 10 mg, Oral, Daily, Refills(s) 0, Control of stomach acid Start Date: 07/10/21 Status: Ordered Start: 01-19-2021 take 1 tablet by ravi th once daily famotidine 20 mg Tab 20 mg = 1 tab(s), Oral, Daily, Refills(s) 0 Start Date: 10/15/21 Status: Ordered Comment on above: Take 1 tablet by ravi th daily at bedtime. ferrous sulfate 325 mg delayed release oral tablet (9 sources) Start: 2021 take 1 tablet by mouth once daily ferrous sulfate 325 mg oral enteric coated tablet 325 mg = 1 tab(s), Oral, Daily, Refills(s) 0 Start Date: 04/22/22 Status: Ordered Comment on above: Take 325 mg by mouth daily with breakfast. Flonase 0.05 mg/inh nasal spray (4 sources) Start: 2018 Flonase 0.05 mg/inh nasal spray 2 spray(s), Nasal, Daily, Refill(s) 0, Congestion Start Date: 06/01/19 Status: Ordered folic acid 2.5 mg / vitamin b12 2 mg / vitamin b6 25 mg oral tablet (7 sources) Vitamin B12 Start: 2018 take 1 tablet by mouth once daily Folbic oral tablet 1 tab(s), Oral, Daily, Refill(s) 0, Prophylaxis Start Date: 06/01/19 Status: Ordered Comment on above: Take 1 tablet by ravi th once daily. furosemide 40 mg oral tablet (9 sources) Loop Diuretic Start: 2021 take 1 tablet by mouth once daily Lasix 40 mg Tab 40 mg = 1 tab(s), Oral, Daily, Refills(s) 0 Start Date: 04/22/22 Status: Ordered Comment on above: Take 40 mg by mouth once daily. gemfibrozil 600 mg oral tablet (3 sources) Peroxisome Proliferator Receptor alpha Agonist Start: 2021 take 1 tablet by mouth twice daily gemfibrozil 600 mg Tab 600 mg = 1 tab(s), Oral, BID, Refills(s) 0 Start Date: 10/15/21 Status: Ordered hydroCHLOROthiazide 25 mg / losartan potassium 100 mg oral tablet (4 sources) Thiazide Diuretic, Angiotensin 2 Receptor Juliana Start: 2018 take 1 tablet by mouth once daily hydrochlorothiazide- losartan 25 mg-100 mg Tab 1 tab(s), Oral, Daily, Refill(s) 0, High blood pressure Start Date: 06/01/19 Status: Ordered hydrocortisone acetate 25 mg rectal suppository (3 sources) Corticosteroid Start: 2021 hydrocortisone 25 mg Supp 25 mg = 1 supp, Rectal, q120hr, Refills(s) 0 Start Date: 04/22/22 Status: Ordered Start: 04-22-2022 hydrocortisone 2.5% rectal cream with applicator 1 candido, Rectal, BID, Refill(s) 0 Start Date: 04/22/22 Status: Ordered hydrocortisone 2.5% rectal c ream with applicator (1 source) Start: 04-22-2022 hydrocortisone 2.5% rectal cream with applicator 1 candido, Rectal, BID, Refill(s) 0 Start Date: 04/22/22 Status: Ordered Inulin / Lactobacillus rhamn osus GG (7 sources) Start: 04-22-2022 [facility] Refill(s) 0 Start Date: 04/22/22 Status: Ordered Start: 06-01-2019 take 1 tablet by ravi th once daily [facility] 1 tab, Oral, Daily, Refill(s) 0, Constipation Start Date: 06/01/19 Status: Ordered 24 hr isosorbide mononitrate 30 mg extended release oral tablet (3 sources) Nitrate Vasodilator Start: 10-15-2021 take 1 tablet by mouth once daily in the morning isosorbide mononitrate 30 mg ER Tab 30 mg = 1 tab(s), Oral, qAM, Refills(s) 0 Start Date: 10/15/21 Status: Ordered levothyroxine sodium 0.05 mg oral tablet (9 sources) l-Thyroxine Start: 10-15-2021 take 1 tablet by mouth once daily levothyroxine 50 mcg (0.05 mg) Tab 50 mcg = 1 tab(s), Oral, Daily, Refills(s) 0 Start Date: 10/15/21 Status: Ordered Start: 07-18-2020 take 1 tablet by ravi th once daily in the morning levothyroxine (SYNTHROID) 50 mcg tablet Take 1 tablet by mouth every morning. 0 07/18/2020 Active Comment on above: Take 1 tablet by ravi th every morning. losartan potassium 100 mg oral tablet (9 sources) Angiotensin 2 Receptor Juliana Start: 04-22-2022 take 1 tablet by mouth once daily losartan 100 mg Tab 100 mg = 1 tab(s), Oral, Daily, Refills(s) 0 Start Date: 04/22/22 Status: Ordered Comment on above: Take 100 mg by mouth once daily. magnesium oxide 400 mg oral tablet (13 sources) Start: 04-22-2022 take 1 tablet by mouth once daily magnesium oxide 400 mg Tab 400 mg = 1 tab(s), Oral, Daily, Refills(s) 0 Start Date: 04/22/22 Status: Ordered Start: 06-01-2019 take 1 tablet by ravi th once daily magnesium oxide 250 mg oral tablet 250 mg = 1 tab(s), Oral, Daily, Refills(s) 0, Prophylaxis Start Date: 06/01/19 Status: Ordered Comment on above: Take 400 mg by mouth once daily. metoprolol tartrate 25 mg oral tablet (13 sources) beta-Adrenergic Juliana Start: 06-01-2019 take 1 tablet by mouth twice daily Metoprolol tartrate 25 mg Tab 25 mg = 1 tab(s), Oral, BID, # 30 tab(s), Refills(s) 0, High blood pressure Start Date: 06/01/19 Status: Ordered metoprolol tartr ate, short acting, (LOPRESSOR) 50 mg tablet Take 25 mg by mouth twice daily. 0 Active Comment on above: Take 25 mg by mouth twice daily. Nitro 0.4 mg Tab (6 sources) Start: 07-10-2021 Nitro 0.4 mg Tab = 1 tab(s), SubLingual, q5min, PRN Chest pain, # 25 tab(s), Refills(s) 3 Start Date: 07/10/21 Status: Ordered nitroglycerin 0.4 mg/actuat mucosal spray (7 sources) Nitrate Vasodilator Start: 07-10-2021 Nitro 0.4 mg Tab = 1 tab(s), SubLingual, q5min, PRN Chest pain, # 25 tab(s), Refills(s) 3 Start Date: 07/10/21 Status: Ordered nitroglycerin yanes blingual (NITROQUICK) 0.4 mg SL tablet Dissolve 0.4 mg under the tongue every 5 minutes as needed. 0 Active Comment on above: Dissolve 0.4 mg unde r the tongue every 5 minutes as needed. ondansetron 4 mg oral tablet (10 sources) Serotonin-3 Receptor Antagonist Start: 07-10-2021 take 4 mg by mouth every eight hours as needed for nausea Zofran 4 mg, Oral, q8hr, PRN as needed for nausea/vomiting, Refills(s) 0 Start Date: 07/10/21 Status: Ordered take 1 tablet by ravi th every eight hours as needed ondansetron orally disintegrating (ZOFRA N ODT) 4 mg disintegrating tablet Take 4 mg by mouth every 8 hours as needed. 0 Active Comment on above: Take 4 mg by mouth e very 8 hours as needed. pantoprazole 40 mg extended release oral tablet (6 sources) Proton Pump Inhibitor Start: 2 take 1 tablet by mouth once daily pantoprazole 40 mg Oral EC Tab 40 mg = 1 tab(s), Oral, Daily, # 30 tab(s), Refills(s) 0, Pharmacy: [facility], 177.8, cm, 07/10/21 15:02:00 EST, Height/Length Dosing, 88.6, kg, 07/10/21 15:02:00 EST, Weight Dosing Start Date: 07/10/21 Status: Ordered Start: 07-10-2021 take 1 tablet by ravi th once daily pantoprazole 40 mg Oral EC Tab 40 mg = 1 tab(s), Oral, Daily, # 30 tab(s), Refills(s) 0, Pharmacy: [facility], 177.8, cm, 07/10/21 15:02:00 EST, Height/Length Dosing, 88.6, kg, 07/10/21 15:02:00 EST, Weight Dosing Start Date: 07/10/21 Status: Ordered pregabalin 75 mg oral capsule (9 sources) Start: 04-22-2022 take 1 capsule by mouth twice daily pregabalin 75 mg Cap 75 mg = 1 cap(s), Oral, BID, Refills(s) 0 Start Date: 04/22/22 Status: Ordered take 1 capsule by [facility] three times daily pregabalin (LYRICA) 50 mg capsule Take 5 0 mg by mouth three times daily. 0 Active Comment on above: Take 50 mg by mouth three times daily. ProAir HFA 90 mcg/inh inhalation aerosol (5 sources) Start: take 2 puff(s) by inhalation every six hours as needed for wheezing ProAir HFA 90 mcg/inh inhalation aerosol 2 puff(s), Inhalation, q6hr as needed for wheezing, Refill(s) 0 Start Date: 10/15/21 Status: Ordered Psyllium (7 sources) Start: Metamucil Oral, Refills(s) 0, Constipation Start Date: 06/01/19 Status: Ordered raNITIdine 150 mg oral tablet (1 source) Histamine-2 Receptor Antagonist Start: take 1 tablet by mouth once daily ranitidine 150 mg Tab 150 mg = 1 tab(s), Oral, Daily, Refills(s) 0, Control of stomach acid Start Date: 06/01/19 Status: Ordered spironolactone 25 mg oral tablet (3 sources) Aldosterone Antagonist Start: take 1 tablet by mouth once daily spironolactone 25 mg Tab 25 mg = 1 tab(s), Oral, Daily, Refills(s) 0 Start Date: 10/15/21 Status: Ordered tamsulosin hydrochloride 0.4 mg oral capsule (6 sources) alpha-Adrenergic Juliana Start: take 1 capsule by mouth once daily Flomax 0.4 mg Cap 0.4 mg = 1 cap(s), Oral, Daily, Refills(s) 0 Start Date: 04/22/22 Status: Ordered Comment on above: Take 0.4 mg by mouth once daily. Vitamin D 1000 intl units (25 mcg) Tab (3 sources) Start: 022 take 1 tablet by mouth once daily Vitamin D 1000 intl units (25 mcg) Tab 100 mcg = 4 tab(s), Oral, Daily, Refills(s) 0 Start Date: 04/22/22 Status: Ordered Vitamin D3 (4 sources) Start: 019 Vitamin D3 2,000 International_Unit, Daily, Refills(s) 0, Prophylaxis Start Date: 06/01/19 Status: Ordered Completed/Discontinued Medications Medication Drug Class(es) Dates Sig (Normalized) Sig (Original) acetaminophen 300 mg / codeine phosphate 30 mg oral tablet (4 sources) Opioid Agonist End: 05-10-2022 take 1 tablet by mouth every four hours as needed acetaminophen-code ine (TYLENOL-COD #3) 300-30 mg per tab Take 1 tablet by mouth every 4 hours as needed. 0 05/10/2022 Discontinued (Course of therapy completed) Comment on above: Take 1 tablet by ravi th every 4 hours as needed. 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 0 05/10/2022 Discontinued Comment on above: Take 1 tablet by ravi th three times daily. CHOLECALCIFEROL, VITAMIN D3, (D3-2000 ORAL) (6 sources) CHOLECALCIFEROL, VITAMIN D3, (D3-2000 ORAL) Take by mouth once daily. 0 Active Comment on above: Take by mouth once d aily. ciprofloxacin 250 mg oral tablet (5 sources) Quinolone Antimicrobial Start: 07-26-19 23 take 1 tablet by mouth once daily Cipro 250 mg Tab 250 mg = 1 tab(s), Oral, Daily, Take 1 tablet the day before the procedure and 1 tablet after the procedure, # 2 tab(s), Refills(s) 0, Pharmacy: [facility] #[id number], 177.8, cm, 04/22/22 15:44:00 EDT, Height/Length Dosing, 85.4, kg, 04/22/22 15:44:00 EDT,... Start Date: 07/26/22 Status: Ordered Start: 07-10-2021 take 1 tablet by ravi once daily Cipro 500 mg Tab 500 mg = 1 tab(s), Oral, Daily, Take 1 tablet 07/16/21 and 1 tablet after the procedure 07/17/21, # 2 tab(s), Refills(s) 0, Pharmacy: [id number] [facility], 177.8, cm, 07/24/20 9:23:00 EST, Height/Length Dosing, 84, kg, 04/12/20 16:13:00 EDT, Weight D... Start Date: 07/10/21 Status: Ordered citalopram 40 mg oral tablet (4 sources) Serotonin Reuptake Inhibitor End: 05-10-2022 take 1 tablet by mouth once daily citalopram (CELEXA) 40 mg tablet Take 40 mg by mouth once daily. 0 05/10/2022 Discontinued Comment on above: Take 40 mg by mouth once daily. dicyclomine hydrochloride 20 mg oral tablet (6 sources) Anticholinergic take 1 tablet by mouth once daily dicyclomine (BENTYL) 20 mg tablet Take 20 mg by mouth once daily. 0 Active Comment on above: Take 20 mg by mouth once daily. fluticasone propionate 0.05 mg/actuat metered dose nasal spray (6 sources) Corticosteroid take 2 spray(s) nasal route once daily fluticasone (FLONASE) 50 mcg/actuation nasal spray Use 2 Sprays in each nostril once daily. 0 Active Comment on above: Use 2 Sprays in each nostril once daily. methocarbamol 750 mg oral tablet (4 sources) Muscle Relaxant End: 05-10-2022 take 1 tablet by mouth every six hours as needed methocarbamol (ROBAXIN) 750 mg tablet Take 750 mg by mouth four times daily as needed. 0 05/10/2022 Discontinued Comment on above: Take 750 mg by mouth four times daily as needed. MULTIVITAMIN ORAL (6 sources) MULTIVITAMIN ORA L Take by mouth once daily. 0 Active Comment on above: Take by mouth once d aily. omeprazole 20 mg delayed release oral capsule (4 sources) Proton Pump Inhibitor End: 05-10-2022 take 1 capsule by mouth once daily omeprazole (PRILOSEC) 20 mg capsule Take 20 mg by mouth once daily. 0 05/10/2022 Discontinued Comment on above: Take 20 mg by mouth once daily. Potassium Chloride (7 sources) Start: 06-01-2019 take 2 capsules by mouth twice daily potassium chloride 10 mEq Cap-ER 20 mEq = 2 cap(s), Oral, BID, Refills(s) 0, Prophylaxis Start Date: 06/01/19 Status: Ordered take 20 mEq by mouth three times daily potassium chloride (K-ANDI, KLOR-CON) 20 mEq packet Take 20 mEq by mouth three times daily. 0 Active Comment on above: Take 20 mEq by mouth three times daily. psyllium husk (METAMUCIL ORAL) (6 sources) psyllium husk (M ETAMUCIL ORAL) Take by mouth. 0 Active Comment on above: Take by mouth. Problems Active Problems Problem Classification Problem Date Documented Da te Episodic/Chronic Acquired foot deformities (3 sources) Foot-drop 04-22-2022 Episodic Acute cerebrovascular disease (11 sources) Intracranial hemorrhage; Translations: [Nontraumatic intracranial hemorrhage, unspecified] Onset: 05-10-2022 10-15-2021 Chronic Calculus of urinary tract (15 sources) Kidney stone; Translations: [Calculus of kidney] Onset: 02-18-2022 Episodic Cancer of bladder (7 sources) Malignant neoplasm of lateral wall of urinary bladder 06-01-2019 Chronic Cancer of bladder (8 sources) History of malignant neoplasm of bladder; Translations: [Personal history of malignant neoplasm of bladder] Onset: 04-22-2022 Episodic Cancer of prostate (20 sources) History of malignant neoplasm of prostate; Translations: [Personal history of malignant neoplasm of prostate] Onset: 08-01-2015 06-01-2019 Episodic Cancer; other and unspecified primary (7 sources) H/O: malignant neoplasm 06-01-2019 Episodic Cardiac dysrhythmias (20 sources) Atrial fibrillation; Translations: [Paroxysmal atrial fibrillation] Onset: 02-02-2022 04-22-2022 Chronic Chronic kidney disease (19 sources) Anemia in chronic kidney disease; Translations: [Chronic kidney disease] Onset: 11-09-2021 10-15-2021 Chronic Chronic obstructive pulmonary disease and bronchiectasis (12 sources) Chronic obstructive lung disease; Translations: [Chronic obstructive pulmonary disease, unspecified] Onset: 11-27-2021 10-15-2021 Chronic Conduction disorders (1 source) Unspecified right bundle-branch block; Translations: [UNSPECIFIED RT BUNDLE-BRANCH BLOCK] Onset: 02-12-2022 Chronic Congestive heart failure; nonhypertensive (1 source) Acute combined systolic (congestive) and diastolic (congestive) heart failure; Translations: [ACUTE COMB SYSTOLIC AND DIASTOLIC CHF] Onset: 02-12-2022 Chronic Coronary atherosclerosis and other heart disease (20 sources) Coronary arteriosclerosis; Translations: [Atherosclerotic heart disease of [place] coronary artery without angina pectoris] Onset: 02-12-2022 10-15-2021 Chronic Deficiency and other anemia (1 source) Iron deficiency anemia due to blood loss; Translations: [Iron deficiency anemia secondary to blood loss (chronic)] Chronic Deficiency and other anemia (4 sources) Iron deficiency anemia secondary to blood loss (chronic); Translations: [Iron deficiency anemia due to chronic blood loss] Onset: 03-18-2022 Chronic Deficiency and other anemia (1 source) Anemia in chronic kidney disease; Translations: [ANEMIA IN CHRONIC KIDNEY DISEASE] Onset: 11-27-2021 Chronic Delirium, dementia, and amnestic and other cognitive disorders (12 sources) Dementia; Translations: [Dementia associated with another disease] Onset: 11-27-2021 10-15-2021 Chronic Diabetes mellitus with complications (1 source) Type 2 diabetes mellitus with diabetic chronic kidney disease; Translations: [TYPE 2 DM W/DIABETIC CKD] Onset: 02-12-2022 Chronic Diabetes mellitus without complication (12 sources) Diabetes mellitus; Translations: [Type 2 diabetes mellitus without complication] Onset: 11-01-2021 10-11-2021 Chronic Disorders of lipid metabolism (13 sources) Hyperlipidemia; Translations: [Hypertriglyceridemia ] Onset: 11-27-2021 10-11-2021 Chronic Diverticulosis and diverticulitis (8 sources) Diverticula of intestine; Translations: [Diverticulosis of intestine, part unspecified, without perforation or abscess without bleeding] Onset: 10-09-2021 Chronic Esophageal disorders (18 sources) Obstruction of esophagus; Translations: [Esophageal obstruction] Onset: 10-09-2021 Chronic Esophageal disorders (1 source) Esophageal disorders; Translations: [Gastroesophageal reflux disease with esophagitis, unspecified whether hemorrhage] Onset: 05-10-2022 Essential hypertension (15 sources) Hypertensive disorder; Translations: [Essential hypertension] Onset: 08-13-2017 10-11-2021 Chronic Genitourinary symptoms and ill-defined conditions (14 sources) Urge incontinence of urine; Translations: [Unspecified urinary incontinence] Onset: 11-27-2021 06-01-2019 Chronic Genitourinary symptoms and ill-defined conditions (20 sources) Dysuria; Translations: [Foul smelling urine] Onset: 11-27-2021 06-01-2019 Episodic Gout and other crystal arthropathies (12 sources) Gout; Translations: [Gout, unspecified] Onset: 02-12-2022 10-15-2021 Chronic Hemorrhoids (20 sources) Hemorrhoids; Translations: [Unspecified hemorrhoids] Onset: 10-09-2021 Episodic Hyperplasia of prostate (18 sources) Benign prostatic hypertrophy with outflow obstruction; Translations: [Benign prostatic hyperplasia with lower urinary tract symptoms] Onset: 11-27-2021 06-01-2019 Chronic Hypertension with complications and secondary hypertension (6 sources) Hypertensive heart and chronic kidney disease with heart failure and stage 1 through stage 4 chronic kidney disease, or unspecified chronic kidney disease; Translations: [Hypertensive heart and chronic kidney disease without heart failure, with stage 1 through stage 4 chronic kidney disease, or unspecified chronic kidney disease] Onset: 12-20-2021 Chronic Inflammatory conditions of male genital organs (5 sources) Prostatitis; Translations: [Inflammatory disease of prostate, unspecified] Onset: 04-22-2022 Episodic Late effects of cerebrovascular disease (1 source) Dysarthria following cerebral infarction; Translations: [DYSARTHRIA FOLLOW CEREBRAL INFARCT] Onset: 11-27-2021 Chronic Nutritional deficiencies (1 source) Vitamin D deficiency, unspecified; Translations: [VITAMIN D DEFICIENCY UNSPECIFIED] Onset: 11-27-2021 Chronic Other and unspecified benign neoplasm (8 sources) Polyp of colon; Translations: [Polyp of colon] Onset: 10-09-2021 Episodic Other and unspecified benign neoplasm (7 sources) History of polyp of colon 08-21-2021 Episodic Other circulatory disease (2 sources) Presence of other cardiac implants and grafts; Translations: [Presence of other cardiac implants and grafts] Onset: 10-18-2022 Chronic Other circulatory disease (3 sources) History of cerebrovascular accident 04-22-2022 Episodic Other connective tissue disease (1 source) Other muscle spasm; Translations: [OTHER MUSCLE SPASM] Onset: 10-28-2022 Episodic Other ear and sense organ disorders (3 sources) Hearing loss 04-22-2022 Chronic Other gastrointestinal disorders (8 sources) Dysphagia; Translations: [Dysphagia, unspecified] Onset: 10-09-2021 Episodic Other nervous system disorders (2 sources) Other chronic pain; Translations: [OTHER CHRONIC PAIN] Onset: 08-01-2022 Chronic Other nervous system disorders (1 source) Polyneuropathy, unspecified; Translations: [POLYNEUROPATHY UNSPECIFIED] Onset: 02-18-2022 Chronic Other nutritional; endocrine; and metabolic disorders (1 source) Hypocalcemia; Translations: [HYPOCALCEMIA] Onset: 02-12-2022 Chronic Other nutritional; endocrine; and metabolic disorders (6 sources) Body mass index 25-29 - overweight 10-16-2021 Episodic Other screening for suspected conditions (not mental disorders or infectious disease) (2 sources) Raised prostate specific antigen; Translations: [Rising PSA 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] Onset: 12-23-2022 Episodic Parkinson`s disease (7 sources) Parkinson's disease; Translations: [Parkinson's disease] Onset: 02-12-2022 10-15-2021 Chronic Residual codes; unclassified (4 sources) Sleep apnea; Translations: [Sleep apnea, unspecified] Onset: 05-10-2022 Chronic Residual codes; unclassified (1 source) Sleep apnea, unspecified; Translations: [Sleep apnea, unspecified type] Onset: 05-10-2022 Chronic Spondylosis; intervertebral disc disorders; other back problems (4 sources) Intervertebral disc disorders with myelopathy, lumbar region; Translations: [Other cervical disc degeneration, unspecified cervical region] Onset: 12-06-2021 Chronic Spondylosis; intervertebral disc disorders; other back problems (20 sources) Cervical radiculopathy; Translations: [Radiculopathy, cervical region] Onset: 02-14-2022 Episodic Thyroid disorders (11 sources) Hypothyroidism; Translations: [Hypothyroidism, unspecified] Onset: 07-10-2021 10-15-2021 Chronic Unclassified (7 sources) Drug therapy finding 06-01-2019 Unclassified (6 sources) Recurrent irreducible right inguinal hernia 10-16-2021 Unclassified (4 sources) LOW BACK PAIN, UNSPECIFIED; Translations: [LOW BACK PAIN, UNSPECIFIED] Onset: 08-01-2022 Unclassified (1 source) CHRN KIDNEY DISEASE STG 3 UNSP; Translations: [CHRN KIDNEY DISEASE STG 3 UNSP] Onset: 02-12-2022 Urinary tract infections (7 sources) Recurrent urinary tract infection 06-01-2019 Episodic Past or Other Problems Problem Classification Problem Date Documented Da te Episodic/Chronic Abdominal hernia (8 sources) Recurrent inguinal hernia with obstruction; Translations: [Unilateral inguinal hernia, with obstruction, without gangrene, recurrent] Onset: 10-16-2021 Episodic Acute and unspecified renal failure (1 source) Acute kidney failure, unspecified; Translations: [ACUTE KIDNEY FAILURE UNSPECIFIED] Onset: 02-12-2022 Episodic Deficiency and other anemia (3 sources) Iron deficiency anemia; Translations: [Iron deficiency anemia, unspecified] Onset: 02-12-2022 05-10-2022 Episodic Deficiency and other anemia (1 source) Iron deficiency anemia, unspecified; Translations: [IRON DEFICIENCY ANEMIA UNSPECIFIED] Onset: 02-12-2022 Episodic Deficiency and other anemia (5 sources) Anemia, unspecified; Translations: [ANEMIA UNSPECIFIED] Onset: 11-09-2021 Episodic Other aftercare (1 source) Other rodent exterminator (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) 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 therapy; Translations: [OTH [facility] CURRENT DRUG THERAPY] Onset: 02-12-2022 Episodic Other aftercare (1 source) emt intermediate (current) use of aspirin; Translations: [[facility] CURRENT USE OF ASPIRIN] Onset: 02-12-2022 Episodic Other aftercare (1 source) prison (current) use of anticoagulants; Translations: [[facility] CURRNT USE ANTICOAGULANTS] Onset: 11-27-2021 Episodic Other aftercare (2 sources) emt intermediate (current) use of antibiotics; Translations: [prison (current) use of antibiotics] Onset: 10-18-2022 Episodic Other connective tissue disease (1 source) Sarcopenia; Translations: [SARCOPENIA] Onset: 07-11-2022 Episodic Phlebitis; thrombophlebitis and thromboembolism (6 sources) H/O: Deep vein thrombosis; Translations: [Personal history of other venous thrombosis and embolism] Onset: 02-12-2022 Episodic Residual codes; unclassified (1 source) Procedure and treatment not carried out for other reasons; Translations: [PROC AND TX NOT CARRIED OUT OTH REASONS] Onset: 04-18-2022 Episodic Unclassified (1 source) LOW BACK PAIN, UNSPECIFIED; Translations: [LOW BACK PAIN, UNSPECIFIED] Onset: 10-24-2022 Results Test Name Value Interpretation Reference Range Facility Reminderson 07-03-2023 Reminders - From: Alain[facility] Dickson [facility]; Cc: Alaina Dickson; Sent: 10/16/2022 14:04:20 EDT Show up: 06/06/2023 14:04:00 EST Subject: cysto/fish/cytol Due Date/Time: 06/23/2023 14:04:00 EST Reminder/Recall Patient is due in Jul 2023 for 1 year cysto/fish/cytol (bt ck) l/m on Milly per pt request from appt 06/20/23.LG Spoke to Milly, pt sched for 07/22/23 at [facility]. Confirmation mailed. Patient will be due in Jul 2024, 1 year cysto/fish/cytol Normal [facility] Ambulatory Visit Summaryon 1 08-21-2022 Ambulatory Visit Summary BEN GUADALUPE :1935 Visit Date:06/20/2023 Ambulatory Visit Instructions Your Diagnosis Rising PSA 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 Urinary retention Prostatitis BPH with urinary obstruction Urge incontinence History of bladder cancer Tests Performed Urnls Dip Stick Auto w/o Microscopy POC 16991 Your Care Team Attending Physician - Mekhi VERGARA MD Primary Care Physician - LEXI WORKMAN, This Is Your Medications List ciprofloxacin (Cipro 500 mg Tab) doxycycline (doxycycline hyclate 100 mg Tab) Contact prescribing physician if questions or concerns acetaminophen-hydrocodone ([place] 325 mg-5 mg oral tablet) albuterol (ProAir HFA 90 mcg/inh inhalation aerosol) allopurinol (allopurinol 300 mg Tab) alprazolam (alprazolam 0.5 mg Tab) aspirin (aspirin 81 mg oral capsule) aspirin (aspirin 81 mg oral tablet) atorvastatin (atorvastatin 20 mg Tab) baclofen (baclofen 10 mg Tab) cetirizine (cetirizine 10 mg oral capsule) cholecalciferol (Vitamin D 1000 intl units (25 mcg) Tab) clopidogrel (clopidogrel 75 mg Tab) dapagliflozin (Farxiga 5 mg oral tablet) diltiazem (diltiazem CD 180 mg/24 hours Cap-ER) donepezil (Aricept 10 mg Tab) dorzolamide-timolol ophthalmic escitalopram (escitalopram 5 mg oral tablet) famotidine (famotidine 20 mg Tab) ferrous sulfate (ferrous sulfate 325 mg oral enteric coated tablet) furosemide (Lasix 40 mg Tab) glipiZIDE (glipiZIDE 5 mg Tab) lactobacillus rhamnosus GG ([facility]) levothyroxine (levothyroxine 50 mcg (0.05 mg) Tab) losartan (losartan 100 mg Tab) magnesium oxide (magnesium oxide 400 mg Tab) metoprolol (Metoprolol tartrate 25 mg Tab) multivitamin with minerals (Centrum Silver oral tablet) nitroglycerin (Nitro 0.4 mg Tab) pregabalin (pregabalin 75 mg Cap) psyllium (Metamucil) tamsulosin (Flomax 0.4 mg Cap) Procedures Performed Cystoscopy (08/05/2022), Repair of right inguinal hernia (11/21/2021), Colonoscopy (09/21/2021), EGD - Esophagogastroduodenoscopy (07/30/2021), Cystoscopy (06/14/2019), Cystoscopy (08/11/2018), Cystoscopy (01/29/2018), Cystoscopic removal of ureteric stent (07/08/2017), Ureteroscopy (06/14/2017), Cystoscopy (04/21/2017), Cystoscopy (01/06/2017), Cystoscopy (10/21/2016), TURBT - Transurethral resection of bladder tumor (07/18/2016), Cystoscopy (06/03/2016), Implantation of radioactive seed into prostate (04/06/2003), Transrectal biopsy of prostate using ultrasound (US) guidance (01/25/2003), Cataract extraction, Craniotomy and evacuation of blood clot, Discectomy, History of cervical spine surgery, History of hernia repair, Knee arthroplasty, Parathyroidectomy, Radiofrequency ablation, Tonsillectomy and adenoidectomy, Watchman. Discharge Vitals Heart Rate (Peripheral) 68 Respiratory Rate 16 Blood Pressure 130/79 Height 177 cm Height 70 in Weight 81.9 kg Weight 180.18 lb BMI 26.14 What to do next You Need to Schedule the Following Appointments Follow Up with URSULA WORKMAN, [facility] [place] When: Where: [address] [place] [address]- Medications What How Much When Instructions New ciprofloxacin (Cipro 500 mg Tab) 1 Tablets By Mouth As Directed Pt to take 1 tab the day before procedure and the 2nd tab the day of procedure once completed. Pickup at [facility] #[id number] New doxycycline (doxycycline hyclate 100 mg Tab) 1 Tablets By Mouth 2 times a day Duration: 2 Weeks Pickup at [facility] #[id number] Unchanged acetaminophen-hydrocodone ([place] 325 mg-5 mg oral tablet) 1 Tablets By Mouth Every 6 hours as needed for as needed for pain Contact prescribing physician if questions or concerns Unchanged albuterol (ProAir HFA 90 mcg/ inh inhalation aerosol) 2 Puffs Inhalation Every 6 hours as needed for as needed for wheezing Contact prescribing physician if questions or concerns Unchanged allopurinol (allopurinol 300 mg Tab) 1 Tablets By Mouth Every day Contact prescribing physician if questions or concerns Unchanged alprazolam (alprazolam 0.5 mg Tab) Contact prescribing physician if questions or concerns Unchanged aspirin (aspirin 81 mg oral capsule) By Mouth Every 4 hours Contact prescribing physician if questions or concerns Unchanged aspirin (aspirin 81 mg oral tablet) 1 Tablets By Mouth Every day Contact prescribing physician if questions or concerns Unchanged atorvastatin (atorvastatin 20 mg Tab) 1 Tablets By Mouth Every day Contact prescribing physician if questions or concerns Unchanged baclofen (baclofen 10 mg Tab) 1 Tablets By Mouth At bedtime Contact prescribing physician if questions or concerns Unchanged cetirizine (cetirizine 10 mg oral capsule) 1 Capsules By Mouth Every day as needed for for allergy symptoms Contact prescribing physician if questions or concerns Unchanged cholecalciferol (Vitamin D 1000 intl units (25 mcg) Tab) 4 Tablets By Mouth Every day Contact prescribing physician if questions or (more content not included)... Normal [facility] Patient Educationon 06-20-20 Patient Education Infectious Disease Prostatitis Prostatitis is swelling or inflammation of the prostate gland, also called the prostate. This gland is about 1.5 inches wide and 1 inch high, and it is involved in making semen. The prostate is located below a man's bladder, in front of the rectum. There are four types of prostatitis: ? Chronic prostatitis (CP), also called chronic pelvic pain syndrome (CPPS). This is the most common type of prostatitis. It is associated with increased muscle tone in the area between the hip bones (pelvic area), around the prostate. This type is also known as a pelvic floor disorder. ? Chronic bacterial prostatitis. This type usually results from an acute bacterial infection in the prostate gland that keeps coming back or has not been treated properly. The symptoms are less severe than those caused by acute bacterial prostatitis, which lasts a shorter time. ? Asymptomatic inflammatory prostatitis. This type does not have symptoms and does not need treatment. This is diagnosed when tests are done for other disorders of the urinary tract or reproductive tract. ? Acute bacterial prostatitis. This type starts quickly and results from an acute bacterial infection in the prostate gland. It is usually associated with a bladder infection, high fever, and chills. This is the least common type of prostatitis. What are the causes? Bacterial prostatitis is caused by an infection from bacteria. Chronic nonbacterial prostatitis may be caused by: ? Factors related to the nervous system. This system includes thebrain, spinal cord, and nerves. ? An autoimmune response. This happens when the body's disease-fighting system attacks healthy tissue in the body by mistake. ? Psychological factors. These have to do with how the mind works. The causes of the other types of prostatitis are usually not known. What are the signs or symptoms? Symptoms of this condition depend on the type of prostatitis you have. Acute bacterial prostatitis Symptoms may include: ? Pain or burning during urination. ? Frequent and sudden urges to urinate. ? Trouble starting to urinate. ? Fever. ? Chills. ? Pain in your muscles or joints, lower back, or lower abdomen. Other types of prostatitis Symptoms may include: ? Sudden urges to urinate, or urinating often. ? Trouble starting to urinate. ? Weak urine stream. ? Dribbling after urination. ? Discharge coming from the penis. ? Pain in the testicles, the penis, or the tip of the penis. ? Pain in the area in front of the rectum and below the scrotum (perineum). ? Pain when ejaculating. How is this diagnosed? This condition may be diagnosed based on: ? A physical and medical exam. ? A digital rectal exam. For this, the health care provider may use a finger to feel the prostate. ? A urine test to check for bacteria. ? A semen sample or blood tests. ? Ultrasound. ? Urodynamic tests to check how your body handles urine. ? Cystoscopy to look inside your bladder or inside the part of your body that drains urine from the bladder (urethra). How is this treated? Treatment for this condition depends on the type of prostatitis. Treatment may involve: ? Medicines to relieve pain or inflammation, or to help relax your muscles. ? Physical therapy. ? Heat therapy. ? Biofeedback. These techniques help you control certain body functions. ? Relaxation exercises. ? Antibiotic medicine, if your condition is caused by bacteria. ? Sitz baths. These warm water baths help to relax your pelvic floor muscles, which helps to relieve pressure on the prostate. Follow these instructions at home: Medicines ? Take [id number] and prescription medicines only as told by your health care provider. ? If you were prescribed an antibiotic medicine, take it as told by your health care provider. Do not stop using the antibiotic even if you start to feel better. Managing pain and swelling ? Take sitz baths as directed by your health care provider. For a sitz bath, sit in warm water that is deep enough to cover your hips and buttocks. ? If directed, apply heat to the affected area as often as told by your health care provider. Use the heat source that your health care provider recommends, such as a moist heat pack or a heating pad. ? Place a towel between your skin and the heat source. ? Leave the heat on for 20?30 minutes. ? Remove the heat if your skin turns bright red. This is especially important if you are unable to feel pain, heat, or cold. You may have a greater risk of getting burned. General instructions ? Do exercises as told by your health care provider, if you were prescribed physical therapy, biofeedback, or relaxation exercises. ? Keep all follow-up visits as told by your health care provider. This is important. Where to find more information ? National [place] of Diabetes and Digestive and Kidney Diseases: (more content not included)... Normal [facility] Urology Office/Clinic Noteon 06-20-2023 Urology Office/Clinic Note Chief Complaint 6m PSA possible Lupron HPI Staff 6m PSA & possible Lupron (no auth required) due to Personal HX of Prostate Cancer. Additional DX: Hx of Bladder Cancer, BPH, Kidney Stones & Urge Incontinence. S/P Brachytherapy 2002 & S/P Cysto 08/06/22 (bt check) Reminder in chart for next Cysto to be done 07/2023 NEG FISH/Cytology 08/06/22 *Tamsulosin 0.4mg QD therapy. No recent PSA. Pt has been to the [facility] ER 3x since 06/10/23 w/ complaints of lower extremity edema & SOB. Catheter was placed 06/10/23 due to inability to urinate, was then DC'd the following day. Denies current urinary complaints. History of Present Illness Tests reviewed: reviewed UA I have reviewed the previous health record information and history for this patient from Dr. Vergara. I have reviewed and verified the staff HPI to be accurate for this encounter. There have been no associated fever, chills, flank pain, or blood in the urine. Denies any urinary infections since last encounter. Review of Systems PHQ Score Initial Depression Screen Score: 0 SCORE ROS - Provider Constitutional: denies weight loss, denies hot flashes. Eyes: denies eye problems. Gastrointestinal: denies nausea, denies vomiting. Cardiovascular: denies chest pain or angina. Integumentary: no dryness Musculoskeletal: denies musculoskeletal symptoms. ENMT: denies otolaryngeal symptoms. Respiratory: no shortness of breath. Heme/Lymph: denies easy bleeding tendency, denies easy bruising tendency. Psychiatric: no confusion, no anxiety. Genitourinary: See HPI. Physical Exam Vitals & Measurements HR: 68(Peripheral) RR: 16 BP: 130/79 HT: 70 in HT: 177 cm WT: 81.9 kg WT: 180.18 lb BMI: 26.14 General Appearance: alert, no distress, well nourished, well developed male. Genitourinary: normal scrotum, normal testes, normal urethra, normal epididymis, normal vas deferens/spermatic cord. Flank Pain: none. Bladder: nonpalpable. Assessment/Plan Pt here with son today 1. Rising PSA 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 (R97.21: Rising PSA 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) PSA: 04/18/22 - 3.27 05/09/22 - 3.92 Plan at last visit was to start Lupron at today's visit pending PSA results, however no recent PSA. Son states pt was unable to have PSA done due to being in and out of the hospital. Will hold off on Lupron. S/p brachytherapy 2002. -PSA after prostatitis abx course is complete 2. Urinary retention (R33.9: Retention of urine, unspecified) Pt has been to [facility] ER 3x since 06/10/23 w/ complaints of lower extremity edema & SOB. Catheter was placed 06/10/23 due to inability to urinate, removed the following day. 3. Prostatitis (N41.9: Inflammatory disease of prostate, unspecified) Hx of. UA today shows positive nitrates and trace leuks. Asx currently. The patient likely has prostatitis. He was advised about the different possible causes of bacterial and non-bacterial prostatitis. He needs to complete the course of prescribed antibiotics. He understands that the symptoms improve if he decreases his exercise and activity level. Anti-inflammatory medicines can also be helpful, as well as frequent ejaculations. Hot baths are also helpful in easing the discomfort. -Start Doxycycline 100mg bid x 2 weeks 4. BPH with urinary obstruction (N40.1: Benign prostatic hyperplasia with lower urinary tract symptoms) Taking Flomax 0.4 mg qd. No issues with urination since Dodge was removed. See #2 5. Urge incontinence (N39.41: Urge incontinence) Leaks all of the time. No burning. Also leaks with urge. Takes water pill in the morning. Improves after water pill wears off. Nocturia 2x/night. 6. History of bladder cancer (Z85.51: Personal history of malignant neoplasm of bladder) Cysto 08/06/21 - Unobstructed. Moderate trabeculation. No tumors. Neg FISH/cytol. -Due for cysto/FISH/cytol 07/2023. The risks and benefits for cystoscopy have been discussed. The risks include bleeding, infection, and irritation of the bladder and urinary channel, among others. The patient, after being informed of procedural details and after questions have been answered, wishes to proceed. Full informed consent has been obtained. Will order Local anesthesia. -Abx sent Follow-up With When Contact Information Mekhi VERGARA MD, URL [address] [place] [address]- Additional Instructions: Schedule cysto for b.t. check Patient Education Prostatitis Silke Austin, personally scribed for Dr. Vergara on 06/20/2023 11:32:00. . Documentation recorded by the scribeSilke, accurately reflects the services(s) I performed and decisions made by me. Authenticated by Dr. Vergara on 06/20/2023 11:33:18. Problem List/Past Medical History Ongoing Anemia due to chronic kidney disease Anticoagulated Asymptomatic microscopic hematuria Atrial fibrillation BMI 27 (more content not included)... Normal [facility] Comment on above: Result Comment: Elec tronically Signed By: Mekhi VERGARA MD\.br\Date and Time Signed: 06/20/23 11:33 EST\.br\Electronically Co-Signed By: Silke Dupont\Date and Time Co-Signed: 06/20/23 11:32 EST Office Visiton 03-07-2023 Follow-up visit [id number] Ben Guadalupe 1935 M Date Provider Department Center 03/07/2023 ANDREA GOLDSTEIN [facility] Family History Problem Relation Age of Onset Heart failure Mother Prostate cancer Father Coronary artery disease Brother Prostate cancer Brother Family Status - Relation Status Age at Mother Father Brother Level of Service:33822 ME OFFICE/OUTPATIENT ESTABLISHED MOD MDM 30-39 MIN [facility] Ambulatory Visit Summaryon 0 12-23-2022 Ambulatory Visit Summary BEN GUADALUPE :1935 Visit Date:12/23/2022 Ambulatory Visit Instructions Your Diagnosis Rising PSA 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 Urge incontinence BPH with urinary obstruction History of bladder cancer Kidney stones Tests Performed Urnls Dip Stick Auto w/o Microscopy POC 28936 Your Care Team Attending Physician - URSULA WORKMAN, Mekhi Oh Primary Care Physician - SHAIKH ELLIOTT This Is Your Medications List Contact prescribing physician if questions or concerns acetaminophen-hydrocodone ([place] 325 mg-5 mg oral tablet) albuterol (ProAir HFA 90 mcg/inh inhalation aerosol) allopurinol (allopurinol 300 mg Tab) aspirin (aspirin 81 mg oral capsule) aspirin (aspirin 81 mg oral tablet) atorvastatin (atorvastatin 20 mg Tab) baclofen (baclofen 10 mg Tab) cetirizine (cetirizine 10 mg oral capsule) cholecalciferol (Vitamin D 1000 intl units (25 mcg) Tab) clopidogrel (clopidogrel 75 mg Tab) dapagliflozin (Farxiga 5 mg oral tablet) diltiazem (diltiazem CD 180 mg/24 hours Cap-ER) donepezil (Aricept 10 mg Tab) dorzolamide-timolol ophthalmic famotidine (famotidine 20 mg Tab) ferrous sulfate (ferrous sulfate 325 mg oral enteric coated tablet) furosemide (Lasix 40 mg Tab) lactobacillus rhamnosus GG ([facility] in[facility]) levothyroxine (levothyroxine 50 mcg (0.05 mg) Tab) losartan (losartan 100 mg Tab) magnesium oxide (magnesium oxide 400 mg Tab) metoprolol (Metoprolol tartrate 25 mg Tab) multivitamin with minerals (Centrum Silver oral tablet) nitroglycerin (Nitro 0.4 mg Tab) pregabalin (pregabalin 75 mg Cap) psyllium (Metamucil) tamsulosin (Flomax 0.4 mg Cap) Procedures Performed Cystoscopy (08/05/2022), Repair of right inguinal hernia (11/21/2021), Colonoscopy (09/21/2021), EGD - Esophagogastroduodenoscopy (07/30/2021), Cystoscopy (06/14/2019), Cystoscopy (08/11/2018), Cystoscopy (01/29/2018), Cystoscopic removal of ureteric stent (07/08/2017), Ureteroscopy (06/14/2017), Cystoscopy (04/21/2017), Cystoscopy (01/06/2017), Cystoscopy (10/21/2016), TURBT - Transurethral resection of bladder tumor (07/18/2016), Cystoscopy (06/03/2016), Implantation of radioactive seed into prostate (04/06/2003), Transrectal biopsy of prostate using ultrasound (US) guidance (01/25/2003), Cataract extraction, Craniotomy and evacuation of blood clot, Discectomy, History of cervical spine surgery, History of hernia repair, Knee arthroplasty, Parathyroidectomy, Radiofrequency ablation, Tonsillectomy and adenoidectomy, Watchman. Discharge Vitals Heart Rate (Peripheral) 70 Blood Pressure 120/68 Height 177.8 cm Height 70 in Weight 84 kg Weight 184.8 lb BMI 26.57 What to do next Scheduled Follow-Up Appointments Friday 3:00 PM EST With: Mekhi VERGARA MD Where: [facility] Patient Educationon 12-24-19 Patient Education Oncology Cancer Screening for Men A cancer screening is a test or exam that checks for cancer. Your health care provider will recommend specific cancer screenings based on your age, medical history (including risk factors), and family history of cancer. Work with your health care provider to create a cancer screening schedule that protects your health. Who should have screening? All men should be considered for screening of certain cancers, including colorectal cancer, prostate cancer, lung cancer, and skin cancer. Your health care provider may recommend screenings for other types of cancer if: ? You had cancer before. ? You have a family member with cancer. ? You have abnormal genes that could increase the risk of cancer. ? You have risk factors for certain cancers, such as current or past use of tobacco products, or being overweight. When you should be screened for cancer depends on: ? Your age. ? Your medical history and your family's medical history. ? Certain lifestyle factors, such as smoking or other use of tobacco products. ? Environmental exposure, such as to asbestos. How is screening done? Colorectal cancer All adults should have screenings starting at age 45 and continuing until age 75. Your health care provider may recommend screening before age 45. You will have tests every 1?10 years, depending on your results and the type of screening test. People at increased risk should start screening at an earlier age. Talk with your health care provider about which screening test is right for you and how often you should be screened. Colorectal cancer screening looks for cancer or for growths called polyps that often form before cancer starts. Tests to look for cancer or polyps include: ? Colonoscopy or flexible sigmoidoscopy. For these procedures, a flexible tube with a small camera is inserted into the rectum. ? CT colonography. This test uses X-rays and a contrast dye to check the colon for polyps. If a polyp is found, you may need to have a colonoscopy so the polyp can be located and removed. Tests to look for cancer in the stool (feces) include: ? Guaiac-based fecal occult blood test (FOBT). This test can find blood in stool. It can be done at home with a kit. ? Fecal immunochemical test (FIT). This test can find blood in stool. For this test, you will need to collect stool samples at home. ? Stool DNA test. This test looks for blood in stool and any changes in DNA that can lead to colon cancer. For this test, you will need to collect a stool sample at home and send it to a lab. Prostate cancer Prostate cancer screening for men with average risk may start at age 50. Men with risk factors may need to be screened earlier, at ages 40?45. Talk with your health care provider about whether screening is right for you and, if so, how often you should be screened. Prostate cancer screening is done with blood tests and a digital rectal exam. During this exam, a health care provider uses a gloved finger to check prostate size. You may need to be screened for prostate cancer if: ? You have risk factors for prostate cancer, such as being or having a close family member with prostate cancer. ? You have had gene changes or a genetic condition that was passed on to you from a parent (inherited). These gene changes or genetic conditions include BRCA1 or BRCA2 gene mutations or John syndrome. ? You have symptoms of prostate cancer, such as problems urinating or problems getting or keeping an erection (erectile dysfunction). When you have been screened for prostate cancer, future screening may be recommended based on the results of your blood tests. Lung cancer Lung cancer screening is done with a CT scan that looks for abnormal changes in the lungs. Discuss lung cancer screening with your health care provider if you are 50?80 years old and if any of the following apply to you: ? You currently smoke. ? You used to smoke heavily. ? You have a smoking history of 1 pack of cigarettes a day for 20 years or 2 packs a day for 10 years. ? You have quit smoking within the past 15 years. You may need to be screened every year if you smoke heavily or if you used to smoke. Skin cancer Skin cancer screening is done by checking the skin for unusual moles or spots and any changes in existing moles. Your health care provider should check your skin for signs of skin cancer at every physical exam. You should check your skin every month and tell your health care provider right away if anything looks unusual. Men with a kmulja-oefo-ysyugp risk for skin cancer may want to see a hide and skin processing worker (supervisor grading) for an annual body check. What are the benefits of screening? Cancer screening is done to look for cancer in the very early stages, before it spreads and becomes harder to treat and before you would start to notice symptoms. Finding cancer early improves the chances of successful treatment. It ma (more content not included)... Normal [facility] Urology Office/Clinic Noteon 12-23-2022 Urology Office/Clinic Note Chief Complaint 10m PSA HPI Staff 10m PSA due to Personal HX of Prostate Cancer. Additional DX: Hx of Bladder Cancer, BPH, Prostatitis, Urgency, Kidney Stones, Incomplete Bladder Emptying & Incontinence. S/P Cysto 08/06/22 (bt check) Reminder in chart for next Cysto to be done 07/2023 NEG FISH/Cytology 08/06/22 *Tamsulosin 0QD therapy. PSA 05/09/22- 3.92 Previous PSA 04/18/22- . Still wearing a depends with a pad. Changes quite often . Constant dribbling. Occasionally does not get to the restroom quick enough. Occasional leaking without awareness. Has not tried Richard clamp yet. Not very interested. Concerned with possible blood clot. Does have back pain, has been ongoing for yrs. Unsure if it is kidney related, concerned for kidney stones. Denies pain/burning. Still occasionally getting up 3-4x/night. Frequency in the mornings, attributes to taking water pill in the mornings. History of Present Illness Tests reviewed: reviewed UA, PSA. I have reviewed the previous health record information and history for this patient from Dr. Vergara. I have reviewed and verified the staff HPI to be accurate for this encounter. There have been no associated fever, chills, flank pain, or blood in the urine. Denies any urinary infections since last encounter. Review of Systems PHQ Score Initial Depression Screen Score: 0 ROS - Provider Constitutional: denies weight loss, denies hot flashes. Eyes: denies eye problems. Gastrointestinal: denies nausea, denies vomiting. Cardiovascular: denies chest pain or angina. Integumentary: no dryness Musculoskeletal: denies musculoskeletal symptoms. ENMT: denies otolaryngeal symptoms. Respiratory: no shortness of breath. Heme/Lymph: denies easy bleeding tendency, denies easy bruising tendency. Psychiatric: no confusion, no anxiety. Genitourinary: See HPI. Physical Exam Vitals & Measurements HR: 70(Peripheral) BP: 120/68 HT: 70 in HT: 177.8 cm WT: 84 kg WT: 184.8 lb BMI: 26.57 General Appearance: alert, no distress, well nourished, well developed male. Genitourinary: normal scrotum, normal testes, normal urethra, normal epididymis, normal vas deferens/spermatic cord. Flank Pain: none. Bladder: nonpalpable. Assessment/Plan 1. Rising PSA 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 (R97.21: Rising PSA 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) PSA: 04/18/22 - 3.27 05/09/22 - 3.92 S/p brachytherapy 2002. Reviewed PSA with pt, prostate ca slowly returning. Will cont to monitor. If cont to rise, will start Lupron at next OV. Follow up 6 mos PSA or sooner if needed. Pt understands and agrees with plan. 2. Urge incontinence (N39.41: Urge incontinence) Leaks all of the time. No burning. Also leaks with urge. Takes water pill in the morning. Improves after water pill wears off. Nocturia 2x/night. 3. BPH with urinary obstruction (N40.1: Benign prostatic hyperplasia with lower urinary tract symptoms) UA today negative for blood and infection. Taking Flomax 0.4 mg qd. 4. History of bladder cancer (Z85.51: Personal history of malignant neoplasm of bladder) Cysto 08/06/21 - Unobstructed. Moderate trabeculation. No tumors. Neg FISH/cytol. -Due for cysto 07/2023. 5. Kidney stones (N20.0: Calculus of kidney) KUB 02/18/22 - Bilateral small renal stones. Follow-up With When Contact Information URSULA WORKMAN, Mekhi Oh, URL [facility] [address], [place] [address]- Additional Instructions: 6 mos psa Patient Education Cancer Screening for Men I, Tierra Anderson, personally scribed for Dr. Vergara on 12/23/2022 13:48:13. . Documentation recorded by the scribe, Tierra Anderson, accurately reflects the services(s) I performed and decisions made by me. Authenticated by Dr. Vergara on 12/23/2022 13:49:20. 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 Chronic obstructive pulmonary disease CKD (chronic kidney disease) Colon polyps Dementia Diabetes Diverticulosis Dysphagia Dysuria External hemorrhoids Foul smelling urine GERD (gastroesophageal reflux disease) Gout Gross hematuria Hearing loss Hemorrhoids History of bladder cancer History of colon polyps History of CVA (cerebrovascular accident) HTN (hypertension) Hyperlipidemia Hypertriglyceridemia Hypothyroidism ICB (intracranial bleed) Incomplete bladder emptying Incontinence of urine Kidney stones Left foot drop Nocturia Parkinsons Personal history of prostate cancer Prostatitis Recurrent irreducible right inguinal hernia Recurrent UTI Rising PSA 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 Schatzki's ring Urg (more content not included)... Normal [facility] Comment on above: Result Comment: Elec tronically Signed By: Mekhi VERGARA MD\.br\Date and Time Signed: 12/23/22 13:49 EDT\.br\Electronically Co-Signed By: Tierra Anderson\.br\Date and Time Co-Signed: 12/23/22 13:48 EDT POINT OF CARE GLUCOSEon 10-06 Glucose [Mass/Vol] 230 mg/dL Critically high 74-106 T [facility] Comment on above: Performed By: #### P SAD #### [facility] [address] [address] [address] Mason Astudillo Office Visiton 10-18-2022 Follow-up visit [id number] Ben Guadalupe 1935 M Date Provider Department Center 10/18/2022 Kellen-NERISSA ORDONEZ [facility] Family History Problem Relation Age of Onset Heart failure Mother Prostate cancer Father Coronary artery disease Brother Prostate cancer Brother Family Status - Relation Status Age at Mother Father Brother Level of Service:46403 ME OFFICE/OUTPATIENT ESTABLISHED LOW MDM 20-29 MIN Reason for Visit and Comments: Coronary Artery Disease [187] Atrial Fibrillation [80] [facility] [place] 10-11-2022 ANES -------- Attestation signed by Rosi Stone MD at 10/11/2022 3:56 PM By using the attestations below, the signing clinician agrees that I have read and verify that the documentation has been personally reviewed by me and ensure that the documentation accurately reflects the encounter. GC: I personally saw this patient on the day of the encounter, performed the franklin portion(s) of the service and participated in the management and confirm the resident's documentation. Please note there may be an additional personal documentation from me. Patient: Ben Guadalupe Procedure Information Date/Time: 10/11/22 0900 Procedure: TRANSESOPHAGEAL ECHO (KINZA) Location: [facility] Clinical information reviewed: Allergies Meds Physical Exam Airway Mallampati: II Cardiovascular Rhythm: regular Rate: normal Dental Pulmonary Breath sounds clear to auscultation Abdominal Abdomen: soft Anesthesia Plan ASA 3 other (Moderate sedation) Anesthetic plan and risks discussed with patient. Use of blood products discussed with patient who consented to blood products. Plan discussed with fellow and attending. Additional Equipment Requests [facility] HPon 10-11-2022 -------- Attestation signed by Rosi Stone MD at 10/11/2022 3:56 PM By using the attestations below, the signing clinician agrees that I have read and verify that the documentation has been personally reviewed by me and ensure that the documentation accurately reflects the encounter. GC: I personally saw this patient on the day of the encounter, performed the franklin portion(s) of the service and participated in the management and confirm the resident's documentation. Please note there may be an additional personal documentation from me. H&P reviewed. The patient was examined and there are no changes to the H&P. [facility] Provider Letteron 09-13-2022 Provider Letter (Inserted Image. Sweta ble to display) September 13, 2022 BEN GUADALUPE [address] [place] [id number] BEN GUADALUPE 1935 Dear Mr. Guadalupe, We have been trying to reach you with no success. You have an appointment with Dr. Mekhi Vergara on October 21 which will need to be rescheduled since he will be out of the office that day. Please contact the office at the number listed below to get this appointment rescheduled at your earliest convenience. Thank you for your prompt attention to this matter. Please call [phone] option 3 to be rescheduled. Sincerely, [facility] [address], [place] [address] [facility] HPon 09-11-2022 [facility] - [facility] Subjective Ben Guadalupe is a 86 y.o. year old male patient who presents to clinic for follow-up after his Watchman device implant. Patient Active Problem List Diagnosis Arteriosclerosis of coronary artery Essential (primary) hypertension Left ventricular hypertrophy Mixed hyperlipidemia PAF (paroxysmal atrial fibrillation) (CMS/HCC) Blood loss anemia Other hemorrhoids Paroxysmal atrial fibrillation ([facility]/HCC) Benign prostatic hyperplasia with lower urinary tract symptoms Calculus of kidney Chronic obstructive pulmonary disease ([facility]/HCC) Dementia in other diseases classified elsewhere, unspecified severity, without behavioral disturbance, psychotic disturbance, mood disturbance, and anxiety ([facility]/HCC) Sleep apnea Intracranial hemorrhage ([facility]/HCC) History of DVT (deep vein thrombosis) Family History Problem Relation Name Age of Onset Heart failure Mother Prostate cancer Father Coronary artery disease Brother Prostate cancer Brother Social History Tobacco Use Smoking status: Never Smokeless tobacco: Never Substance Use Topics Alcohol use: Yes Comment: occasional Drug use: Never Atrial Fibrillation Symptoms are negative for chest pain, palpitations and syncope. Past medical history includes atrial fibrillation and CAD. Coronary Artery Disease Symptoms include leg swelling. Pertinent negatives include no chest pain or palpitations. 09/11/22 He has been feeling well since the procedure. He has some right groin bruising that is improving. He denies any current issues with bleeding. He has chronic LE swelling. He denies CP, dyspnea, orthopnea, PND, dizziness/LH, palpitations. He mobilizes with his scooter. --- Last HPI per Dr. Danielle: Ben is an 86-year-old man with history of mild coronary artery disease by cardiac catheterization in 2013, hypertension. He has history of DVT in the left leg many years ago. He has leg edema is related to venous insufficiency and lack of ambulation. This is chronic. His prior echocardiograms showed mild elevation of right sided pressure that do not explain the leg edema. He has tried compression socks in the past but couldn't tolerate them. I had recommended leg elevation. In early February 2022 he was admitted to the [facility] with palpitations and chest pain. He was found to have atrial fibrillation with rapid ventricular response that later reverted to sinus rhythm. He was also found to have significant anemia and large amount of rectal bleeding that appeared to be related to hemorrhoids, he received blood transfusion. He also had DAVID that resolved. At that time I evaluated him in the hospital and I recommended against any anticoagulation therapy due to his anemia and bleeding. I also recommended an event monitor to rule out recurrence of atrial fibrillation. This showed evidence of recurrence of atrial fibrillation. On 05/17/2022 he underwent surgery for hemorrhoids. He has not had bleeding since then. Today he reports that he has been doing reasonably well. He has had no recurrence of palpitations or chest pain since that episode in early February. He otherwise has chronic lower extremity edema. He uses a scooter to ambulate. No significant shortness of breath. Review of Systems Cardiovascular: Positive for leg swelling. Negative for chest pain, claudication, dyspnea on exertion, irregular heartbeat, near-syncope, orthopnea, palpitations, paroxysmal nocturnal dyspnea and syncope. Hematologic/Lymphatic: Negative. Musculoskeletal: Positive for arthritis, back pain and myalgias. All other systems reviewed and are negative. Objective Visit Vitals BP 126/75 (BP Location: Right arm, Patient Position: Sitting) Pulse 75 Ht 1.803 m (5' 11 ) Wt 87.1 kg (192 lb) SpO2 97% BMI 26.78 kg/m??? Smoking Status Never BSA 2.09 m??? Physical Exam Constitutional: Appearance: He is well-developed. He is not ill-appearing. HENT: Head: Normocephalic and atraumatic. Nose: Nose normal. Eyes: General: No scleral icterus. Pupils: Pupils are equal, round, and reactive to light. Neck: Thyroid: No thyromegaly. Vascular: No JVD. Cardiovascular: Rate and Rhythm: Normal rate and regular rhythm. Pulses: Radial pulses are 2+ on the right side. Heart sounds: Normal heart sounds. No murmur heard. No friction rub. No gallop. Comments: Right groin with resolving ecchymosis, no hematoma, no bruit, no s/s of infection Pulmonary: Effort: Pulmonary effort is normal. No respiratory distress. Breath sounds: Normal breath sounds. No wheezing or rales. Chest: Chest wall: No tenderness. Abdominal: General: Bowel sounds are normal. There is no distension. Palpations: Abdomen is soft. Tenderness: There is no abdominal tenderness. Musculoskeletal: Cervical back: Neck supple. Right lower le (more content not included)... [facility] 30on 08-29-2022 30 Problem: Pain - Adul t Goal: Verbalizes/displays adequate comfort level or baseline comfort level Outcome: Progressing Flowsheets (Taken 08/28/2022 0935 by Aleyda Caputo RN) Verbalizes/displays adequate comfort level or baseline comfort level: Encourage patient to monitor pain and request assistance Assess pain using appropriate pain scale Administer analgesics based on type and severity of pain and evaluate response Implement non-pharmacological measures as appropriate and evaluate response Consider cultural and social influences on pain and pain management Notify Licensed Independent Practitioner if interventions unsuccessful or patient reports new pain Problem: Safety - Adult Goal: Free from fall injury Outcome: Progressing Flowsheets (Taken 08/28/2022 0800 by Aleyda Caputo RN) Free from fall injury: Assess patient frequently for physical needs Identify cognitive and physical deficits and behaviors that affect risk of falls [place] fall precautions as indicated by assessment Educate patient/family on patient safety, including physical limitations Instruct patient to call for assistance with activity based on assessment Modify environment to reduce risk of injury Consider OT/PT consult to assist with strengthening/mobility Problem: Discharge Planning Goal: Discharge to home or other facility with appropriate resources Outcome: Progressing Flowsheets (Taken 08/29/2022 0050) Discharge to home or other facility with appropriate resources: Identify barriers to discharge with patient and caregiver Problem: Chronic Conditions and Co-morbidities Goal: Patient's chronic conditions and co-morbidity symptoms are monitored and maintained or improved Outcome: Progressing Flowsheets (Taken 08/28/2022 0815 by Aleyda Caputo RN) Care Plan - Patient's Chronic Conditions and Co-Morbidity Symptoms are Monitored and Maintained or Improved: Monitor and assess patient's chronic conditions and comorbid symptoms for stability, deterioration, or improvement Collaborate with multidisciplinary team to address chronic and comorbid conditions and prevent exacerbation or deterioration Update acute care plan with appropriate goals if chronic or comorbid symptoms are exacerbated and prevent overall improvement and discharge The patient is Moderately Stable - Low risk of patient condition declining or worsening The patient's goals for the shift include rest The clinical goals for the shift include monitor cath site Over the shift, the patient continued to make progress toward the following goals. [facility] DSon 08-29-2022 DS -------- Attestation signed by Kavita Danielle MD at 08/30/2022 1:55 PM I discussed the patient on the same date of service as the Non-Physician Provider Maritza Kirkland. Teaching Physician's Revisions: None Admission Admitted 08/27/2022 for Paroxysmal atrial fibrillation Discharge Diagnosis Paroxysmal atrial fibrillation ([facility]) Discharge Disposition Home or Self Care Discharge Medications Your medication list START taking these medications Instructions Last Dose Given Next Dose Due clopidogrel 75 mg tablet Commonly known as: Plavix Start taking on: August 30, 2022 Take 1 tablet (75 mg) by mouth in the morning for 97 doses. Do not start before August 30, 2022. CHANGE how you take these medications Instructions Last Dose Given Next Dose Due atorvastatin 40 mg tablet Commonly known as: Lipitor What changed: medication strength how much to take Take 1 tablet (40 mg) by mouth at bedtime for 97 doses. CONTINUE taking these medications Instructions Last Dose Given Next Dose Due albuterol 90 mcg/actuation inhaler allopurinol 300 mg tablet Commonly known as: Zyloprim aspirin 81 mg EC tablet baclofen 10 mg tablet Commonly known as: Lioresal cholecalciferol 25 MCG (1000 UT) capsule Commonly known as: Vitamin D-3 Culturelle 10 billion cell capsule Generic drug: lactobacillus dapagliflozin 10 mg Commonly known as: Farxiga dilTIAZem CD 180 mg 24 hr capsule Commonly known as: Cardizem CD Take 1 capsule (180 mg) by mouth in the morning. donepezil 10 mg tablet Commonly known as: Aricept dorzolamide-timoloL 22.3-6.8 mg/mL ophthalmic solution Commonly known as: Cosopt famotidine 20 mg tablet Commonly known as: Pepcid ferrous sulfate 325 (65 Fe) MG tablet furosemide 40 mg tablet Commonly known as: Lasix HYDROcodone-acetaminophen 5-325 mg tablet Commonly known as: [place] levothyroxine 50 mcg tablet Commonly known as: Synthroid, Levoxyl losartan 100 mg tablet Commonly known as: Cozaar magnesium oxide 250 mg magnesium tablet Commonly known as: Mag-Ox metoprolol tartrate 25 mg tablet Commonly known as: Lopressor nitroglycerin 0.4 mg SL tablet Commonly known as: Nitrostat potassium chloride 20 mEq packet Commonly known as: Klor-Con pregabalin 50 mg capsule Commonly known as: Lyrica tamsulosin 0.4 mg 24 hr capsule Commonly known as: Flomax Where to Get Your Medications These medications were sent to [facility] - [place], [place] - [address], [facility] [address] atorvastatin 40 mg tablet clopidogrel 75 mg tablet Activity Normal activity as tolerated. No heavy lifting greater than 5lbs for x1 week, no driving for 24 hours, no strenuous activity for x1 week No driving for 24 hours No strenuous activity for 1 week including no heavy lifting (anything greater than 5lbs) Diet Continue on the same type of diet and foods as you were eating before your admission. Drink plenty of water. Allergies Oxycodone-acetaminophen, Tizanidine, and Tramadol Hospital Course The patient is a 86 y.o. male with complex prior medical history including Paroxysmal atrial fibrillation, who needs long-term anticoagulation therapy to reduce the risk of stroke given elevated [id number] score of 5 due to age, hypertension, diabetes, and vascular disease. he is not a good candidate for long-term anticoagulation due to history of gastrointestinal bleeding and falls. Following evaluation in Cardiology Clinic, percutaneous KARLI closure procedure was recommended as an alternative to long-term anticoagulation. he had a shared decision making with Dr Shaikh Elliott, and both agreed that KARLI closure is a good alternative for him. 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 No history of statin intolerance. Patient has had no complaints of chest pain/pressure, lightheadedness, dizziness, SOB, RIOS. PMH includes: mild CAD, hypertension, DVT in the left leg with chronic venous insufficiency, rectal bleeding d/t hemorrhoids but is now s/p hemorroidectomy, brain bleed Watchman 08/27/22 Conclusion INDICATION: The patient is a 86 y.o. male with complex prior medical history including Paroxysmal atrial fibrillation, who needs long-term anticoagulatio (more content not included)... [facility] NURSNOTEon 08-29-2022 NURSNOTE Discharge instructio ns provided to patient and signed copy in the chart. Pt denies further questions at this time. [facility] NURSNOTE Rn assessed patient at beginning of shift and TR band was already deflated on the L radial cath site. Site was clean, dry, and intact with no signs of bleeding. Rn replaced TR band with gauze and transparent dressing and continued to do cath checks. [facility] 30on 08-28-2022 30 Problem: Pain - Adul t Goal: Verbalizes/displays adequate comfort level or baseline comfort level Outcome: Progressing Flowsheets (Taken 08/28/2022 0935) Verbalizes/displays adequate comfort level or baseline comfort level: Encourage patient to monitor pain and request assistance Assess pain using appropriate pain scale Administer analgesics based on type and severity of pain and evaluate response Implement non-pharmacological measures as appropriate and evaluate response Consider cultural and social influences on pain and pain management Notify Licensed Independent Practitioner if interventions unsuccessful or patient reports new pain Problem: Safety - Adult Goal: Free from fall injury Outcome: Progressing Flowsheets (Taken 08/28/2022 0800) Free from fall injury: Assess patient frequently for physical needs Identify cognitive and physical deficits and behaviors that affect risk of falls [place] fall precautions as indicated by assessment Educate patient/family on patient safety, including physical limitations Instruct patient to call for assistance with activity based on assessment Modify environment to reduce risk of injury Consider OT/PT consult to assist with strengthening/mobility Problem: Discharge Planning Goal: Discharge to home or other facility with appropriate resources Outcome: Progressing Flowsheets (Taken 08/28/2022 0815) Discharge to home or other facility with appropriate resources: Identify barriers to discharge with patient and caregiver Arrange for needed discharge resources and transportation as appropriate Identify discharge learning needs (meds, wound care, etc) Arrange for interpreters to assist at discharge as needed Refer to discharge planning if patient needs post-hospital services based on physician order or complex needs related to functional status, cognitive ability or social support system Problem: Chronic Conditions and Co-morbidities Goal: Patient's chronic conditions and co-morbidity symptoms are monitored and maintained or improved Outcome: Progressing Flowsheets (Taken 08/28/2022 0815) Care Plan - Patient's Chronic Conditions and Co-Morbidity Symptoms are Monitored and Maintained or Improved: Monitor and assess patient's chronic conditions and comorbid symptoms for stability, deterioration, or improvement Collaborate with multidisciplinary team to address chronic and comorbid conditions and prevent exacerbation or deterioration Update acute care plan with appropriate goals if chronic or comorbid symptoms are exacerbated and prevent overall improvement and discharge Problem: Chronic Conditions and Co-morbidities Goal: Patient's chronic conditions and co-morbidity symptoms are monitored and maintained or improved Outcome: Progressing Flowsheets (Taken 08/28/2022 0815) Care Plan - Patient's Chronic Conditions and Co-Morbidity Symptoms are Monitored and Maintained or Improved: Monitor and assess patient's chronic conditions and comorbid symptoms for stability, deterioration, or improvement Collaborate with multidisciplinary team to address chronic and comorbid conditions and prevent exacerbation or deterioration Update acute care plan with appropriate goals if chronic or comorbid symptoms are exacerbated and prevent overall improvement and discharge The patient is Moderately Stable - Low risk of patient condition declining or worsening The patient's goals for the shift include discharge The clinical goals for the shift include stable site & HR [facility] Trey 08-28-2022 ANES -------- Attestation signed by Nishi Cheney MD at 08/28/2022 3:17 PM Nishi Cheney MD, MPH, [facility], [facility], [facility] Interventional Cardiology Pager Email: [email or web address] Patient: Ben Guadalupe Procedure Information Date/Time: 08/28/22 1013 Procedure: Left heart cath Location: [facility] ACTIVIT[facility] ATTENDANT 2 BIPLANE / [facility] (Cath) Providers: Nishi Cheney MD Clinical information reviewed: Allergies Meds Physical Exam Airway Mallampati: II Cardiovascular Rhythm: regular Rate: normal Dental Pulmonary Breath sounds clear to auscultation Abdominal Abdomen: soft Anesthesia Plan ASA 4 other (Moderate sedation) Anesthetic plan and risks discussed with patient. Use of blood products discussed with patient who consented to blood products. Plan discussed with fellow and attending. Additional Equipment Requests [facility] BASIC METABOLIC PANELon 02- Anion gap [Moles/Vol] 12 mmol/L Normal 7-20 [facility] Comment on above: Performed By: #### L [id number] ####[facility] ([facility])[address] [facility] [place] [address] Calcium [Mass/Vol] 8.5 mg/dL Low 8.6-10.[address] [facility] Comment on above: Performed By: #### L [id number] ####[facility] ([facility])[address] [facility] [address] Chloride [Moles/Vol] 104 mmol/L Normal 98-107 [facility] Comment on above: Performed By: #### L [id number] ####[facility] ([facility])[address] [place] [address] CO2 [Moles/Vol] 25 mmol/L Normal 21-31 [facility] Comment on above: Performed By: #### L [id number] ####[facility] ([facility])[address] [facility] [place] [address] Creatinine [Mass/Vol] 1.05 mg/dL Normal 0.70-1.30 [facility] Comment on above: Performed By: #### L [id number] ####[facility] ([facility])[address] [place] [address] GLOMERULAR FILTRATION RATE ML/MIN/1.73 SQ M.PREDICTED 64.4 mL/min/1.73m*2 Normal >60.0 [facility] Comment on above: Result Comment: [facility]???s estimated glomerular filtration rate (eGFR) will no longer include consideration of race in its calculation. The National Kidney Foundation???s eGFR Task Force developed new recommendations for the estimation of the glomerular filtration rate in the [place] They recommend immediate implementation of the new equation refit without the race variable in all laboratories because the calculation does not include race. In addition to not including race in the calculation and reporting, it included diversity in its development, and has acceptable performance characteristics and potential consequences that do not disproportionately affect any one group of individuals. Performed By: #### L [id number] ####[facility] ([facility])[address] [place] [address] Glucose [Mass/Vol] 119 mg/dL High 70-[address] [facility] Comment on above: Performed By: #### L [id number] ####[facility] ([facility])[address] [place] [address] Potassium [Moles/Vol] 3.6 mmol/L Normal 3.5-5.1 [facility] Comment on above: Performed By: #### L [id number] ####[facility] ([facility])[address] [place] [address] Sodium [Moles/Vol] 137 mmol/L Normal 136-[address] [facility] Comment on above: Performed By: #### L [id number] ####[facility] ([facility])[address] [place] [address] Urea nitrogen [Mass/Vol] 21 mg/dL Normal 7-25 [facility] Comment on above: Performed By: #### L [id number] ####[facility] ([facility])[address] [place] [address] UREA NITROGEN/CREATININE (MASS RATIO) IN SER/PLAS 20.00 [facility] Comment on above: Performed By: #### L [id number] ####[facility] ([facility])[address] [place] [address] CBCon 08-28-2022 Erythrocyte distribution width (RBC) [Ratio] 15.0 % Normal 11.5-15.0 [facility] Comment on above: Performed By: #### L [id number] ####[facility] ([facility])[address] [place] [address] ERYTHROCYTE MEAN CORPUSCULAR HEMOGLOBIN CONCENTRATION (G/DL) BY AUTOMATED 33.0 g/dL Normal 32.0-35.0 [facility] Comment on above: Performed By: #### L [id number] ####[facility] ([facility])[address] [place] [address] Hematocrit (Bld) [Volume fraction] 43.6 % Normal 39.0-55.0 [facility] Comment on above: Performed By: #### L [id number] ####[facility] ([facility])[address] [place] [address] Hemoglobin (Bld) [Mass/Vol] 14.4 g/dL Normal 13.0-17.0 [facility] Comment on above: Performed By: #### L [id number] ####[facility] ([facility])[address], [place] [address] IMMATURE PLATELET FRACTION % 1.7 % Normal 0.8-6.3 [facility] Comment on above: Performed By: #### L [id number] ####[facility] ([facility])[address] [place] [address] MCH (RBC) [Entitic mass] 29.4 pg Normal 27.0-33.0 [facility] Comment on above: Performed By: #### L [id number] ####[facility] ([facility])[address] [place] [address] MCV (RBC) [Entitic vol] 89.2 fL Normal 82.0-98.0 [facility] Comment on above: Performed By: #### L [id number] ####[facility] ([facility])[address] [place] [address] PLATELETS (10*3/UL) IN BLOOD AUTOMATED COUNT 124 10*3/uL Low 150-400 [facility] Comment on above: Performed By: #### L [id number] ####[facility] ([facility])[address] [place] [address] RBC (Bld) [#/Vol] 4.89 10*6/uL Normal 4.20-5.70 [facility] Comment on above: Performed By: #### L [id number] ####[facility] ([facility])[address] [facility] [place] [address] WBC (Bld) [#/Vol] 6.30 10*3/uL Normal 4.00-10.60 [facility] Comment on above: Performed By: #### L [id number] ####[facility] ([facility])[address] [place] [address] HPon 08-28-2022 HP -------- Attestation signed by Nishi Cheney MD at 08/28/2022 3:17 PM Nishi Cheney MD, MPH, FACC, [facility], [facility] Interventional Cardiology Pager Email: [email or web address] H&P reviewed. The patient was examined and there are no changes to the H&P. [facility] Victorina 08-28-2022 BERNICE Spoke with patient s on Corey on phone updating on the poc and pt needing to have a cardiac cath performed today.Son expresses full understanding of the reason for procedure; RN provided son with RN contact number for any additional questions family may have. [facility] TROPONIN Ion 08-28-2022 Troponin I.cardiac [Mass/Vol] 0.08 ng/mL High 0.00-0.04 [facility] Comment on above: Order Comment: Add t o AM labs please Performed By: #### L [id number] ####[facility] ([facility])[address] [place] [address] HPon 08-27-2022 HP H&P reviewed. The fidelia jimenez was examined and there are no changes to the H&P. The patient is a 86 y.o. male with complex prior medical history including Paroxysmal atrial fibrillation, who needs long-term anticoagulation therapy to reduce the risk of stroke given elevated [id number]-MPYa score of 5 due to age, hypertension, diabetes, and vascular disease. he is not a good candidate for long-term anticoagulation due to history of gastrointestinal bleeding. We again discussed left atrial appendage closure procedure as an alternative to reduce the risk of stroke. I explained the risks and benefits of the procedure. In particular I mentioned the small risk of device embolization as well as cardiac perforation and requirement for emergency surgery. he would like to proceed. [facility] NURSNOTEon 08-27-[address] Danielle, Maritza Larkin SUPERVISOR MALTED MILK at bedside assessing pt, echo being performed at bedside. [facility] NURSNOTE Beside swallow compl eted. Pt successfully passed [facility] TROPONIN Ion 08-27-2022 Troponin I.cardiac [Mass/Vol] 0.25 ng/mL Critically high 0.00-0.04 [facility] Comment on above: Performed By: #### L [id number] ####[facility] ([facility])[address] [place] [address] TYPE AND SCREENon 08-27-2022 AB SCREEN Negative [facility] Comment on above: Performed By: #### L [id number] ####[facility], ABO group Nom (Bld) A Normal [facility] Comment on above: Performed By: #### L [id number] ####[facility], RH TYPE IN BLOOD Negative Normal [facility] Comment on above: Performed By: #### L [id number] ####[facility], BASIC METABOLIC PANELon 08-07 Anion gap [Moles/Vol] 11 mmol/L Normal 7-20 [facility] Comment on above: Performed By: #### L [id number] ####[facility] (BEAKER)[address] [place] [address] Calcium [Mass/Vol] 8.9 mg/dL Normal 8.6-10.[address] [facility] Comment on above: Performed By: #### L [id number] ####[facility] (BEBANNER)[address] [place] [address] Chloride [Moles/Vol] 99 mmol/L Normal 98-107 [facility] Comment on above: Performed By: #### L [id number] ####[facility] ([facility])[address] [place] [address] CO2 [Moles/Vol] 32 mmol/L High 21-31 [facility] Comment on above: Performed By: #### L [id number] ####[facility] ([facility])[address] [place] [address] Creatinine [Mass/Vol] 1.12 mg/dL Normal 0.70-1.30 [facility] Comment on above: Performed By: #### L [id number] ####[facility] ([facility])[address] [place] [address] GLOMERULAR FILTRATION RATE ML/MIN/1.73 SQ M.PREDICTED 59.6 mL/min/1.73m*2 Low >60.0 [facility] Comment on above: Result Comment: The [facility]???s estimated glomerular filtration rate (eGFR) will no longer include consideration of race in its calculation. The National Kidney Foundation???s eGFR Task Force developed new recommendations for the estimation of the glomerular filtration rate in the [place] They recommend immediate implementation of the new equation refit without the race variable in all laboratories because the calculation does not include race. In addition to not including race in the calculation and reporting, it included diversity in its development, and has acceptable performance characteristics and potential consequences that do not disproportionately affect any one group of individuals. Performed By: #### L [id number] ####[facility] (BEBANNER)[address] [place] [address] Glucose [Mass/Vol] 153 mg/dL High 70-[address] [facility] Comment on above: Performed By: #### L [id number] ####[facility] (BEAKER)[address] [place] [address] Potassium [Moles/Vol] 3.3 mmol/L Low 3.5-5.1 [facility] Comment on above: Performed By: #### L [id number] ####[facility] (BEAKER)[address] [place] [address] Sodium [Moles/Vol] 139 mmol/L Normal 136-[address] [facility] Comment on above: Performed By: #### L [id number] ####[facility] (BEAKER)[address] [place] [address] Urea nitrogen [Mass/Vol] 21 mg/dL Normal 7-25 [facility] Comment on above: Performed By: #### L [id number] ####[facility] (BEBANNER)[address] [place] [address] UREA NITROGEN/CREATININE (MASS RATIO) IN SER/PLAS 18.75 Normal [facility] Comment on above: Performed By: #### L [id number] ####[facility] (BEAKER)[address] [place] [address] CBCon 08-20-2022 Erythrocyte distribution width (RBC) [Ratio] 15.0 % Normal 11.5-15.0 [facility] Comment on above: Performed By: #### L [id number] ####[facility] (BEBANNER)[address] [place] [address] ERYTHROCYTE MEAN CORPUSCULAR HEMOGLOBIN CONCENTRATION (G/DL) BY AUTOMATED 34.5 g/dL Normal 32.0-35.0 [facility] Comment on above: Performed By: #### L [id number] ####[facility] (BEBANNER)[address] [place] [address] Hematocrit (Bld) [Volume fraction] 44.7 % Normal 39.0-55.0 [facility] Comment on above: Performed By: #### L [id number] ####[facility] (BEAKER)[address] [place] [address] Hemoglobin (Bld) [Mass/Vol] 15.4 g/dL Normal 13.0-17.0 [facility] Comment on above: Performed By: #### L [id number] ####[facility] ([facility])[address] [place] [address] MCH (RBC) [Entitic mass] 30.2 pg Normal 27.0-33.0 [facility] Comment on above: Performed By: #### L [id number] ####[facility] ([facility])[address] [place] [address] MCV (RBC) [Entitic vol] 87.6 fL Normal 82.0-98.0 [facility] Comment on above: Performed By: #### L [id number] ####[facility] ([facility])[address] [place] [address] PLATELETS (10*3/UL) IN BLOOD AUTOMATED COUNT 108 10*3/uL Low 150-400 [facility] Comment on above: Performed By: #### L [id number] ####[facility] ([facility])[address] [place] [address] RBC (Bld) [#/Vol] 5.10 10*6/uL Normal 4.20-5.70 [facility] Comment on above: Performed By: #### L [id number] ####[facility] ([facility])[address] [place] [address] WBC (Bld) [#/Vol] 4.18 10*3/uL Normal 4.00-10.60 [facility] Comment on above: Performed By: #### L [id number] ####[facility] ([facility])[address] [place] [address] HPon 08-20-2022 HP H&P reviewed. The pa tient was examined and there are no changes to the H&P. Normal [facility] MRSA/MSSA DNA NASALon 2022 MRSA DNA Negative Normal Negative, Invalid [facility] Comment on above: Performed By: #### L [id number] ####[facility] (BEAKER)[address] [facility] [place] [address] MSSA DNA Positive Abnormal Negative, Invalid [facility] Comment on above: Performed By: #### L [id number] ####[facility] (BEAKER)[address] [facility] [place] [address] TYPE AND SCREENon 08-20-2022 AB SCREEN Negative Normal [facility] Comment on above: Performed By: #### L [id number] ####[facility], ABO group Nom (Bld) A Normal [facility] Comment on above: Performed By: #### L [id number] ####[facility], RH TYPE IN BLOOD Negative Normal [facility] Comment on above: Performed By: #### L [id number] ####[facility], Orders Onlyon 08-16-2022 Orders Only [id number] Ben Guadalupe A 1935 M Date Provider Department Center 08/16/2022 166NERISSA ORDONEZ CONCHIS Roberto Family History Problem Relation Age of Onset Heart failure Mother Prostate cancer Father Coronary artery disease Brother Prostate cancer Brother Family Status - Relation Status Age at Mother Father Brother Normal [facility] Prep for Procedureon 023 Prep for Procedure [id number] Ben Guadalupe A 1935 M Date Provider Department Center 08/16/2022 [facility] Family History Problem Relation Age of Onset Heart failure Mother Prostate cancer Father Coronary artery disease Brother Prostate cancer Brother Family Status - Relation Status Age at Mother Father Brother Normal [facility] Telephoneon 08-13-2022 Telephone [id number] Ben Guadalupe A 1935 M Date Provider Department Center 08/13/2022 [facility] HeartVAS Family History Problem Relation Age of Onset Heart failure Mother Prostate cancer Father Coronary artery disease Brother Prostate cancer Brother Family Status - Relation Status Age at Mother Father Brother Normal [facility] UroVysion Fish and Urine Cyt o (P4 Labs)on 08-12-2022 UVFISH & UC Diagnosis Info Invalid Interpretation Code [facility] Comment on above: Result Comment: A:Ur ine,Urine:Cystoscopy Diagnosis Summary - Diagnosis Summary - The UroVysion FISH study detected normal copy numbers for chromosomes 3, 7, 17, and 9p21. 105 cells were analyzed in this evaluation. No evidence of aneuploidy for chromosomes 3, 7, or 17 or deletion of the 9p21 locus was found in cells present in this specimen. This test does not rule out the possibility of a low grade non-invasive papillary urothelial carcinoma. These findings should be correlated with cytology and cystoscopy results.* Microscopic Notes - Obscuring acute inflammatory cells are seen. Microscopic Notes - Abnormal cells 9p21 deletions: Abnormal cells aneploid events: Total cells analyzed: 105 Hematuria: Gross Description Site ID:A color Light Yellow fixative Alcohol Received 100 mls of slightly cloudy light yellow fluid with the patient's name and, Urine on the vial. Electronically signed by : on: 08/12/2022 08:46:21 Performed By: #### 1 [id number] ####[facility] [id number] [place] [address] Consent for Procedure/Surger yon 08-09-2022 Consent for Procedure/Surgery [id number]#[id number]:127 Normal [facility] IntraOperative Documentson 0 08-09-2022 IntraOperative Documents [id number]#[id number]:127 Normal [facility] Coding Summary.on 08-07-2022 Coding Summary. CD:[id number] Gh0bWw+P GhlYWQ+IB3ZGMZwP21vzKMuaC7XE 8iULS0WRSYYFFJGQP9RXZ8nmOK2P OxgS8XvkmYa WqlovZJmUD24DVe9RHE2aRvrDJeo oW0wbXGaD0d0BiZvCV12yL36MEdz WUAcPgF9IxZwyybxlHKm O7umVnYngOSvYfg+PHRhYmxlIHdp BNIiVWakIVRyQzXuoGbmQE2zGt0z ZGVyLWNvbGxhcHNlOiBj h7uzEOBvYUmpOC7hfRilY0QjdZN8 BDVyi3t6Gk68yUZ+RGHrYPM2rXqi CDjnj016OqFeg0spTOT7 wWKvLZvtKXZ5T77hw8N0KJGtUKSb OLD3aWB0eT2xdXdcclgoY0DedLUj YyW7DCM6dRTzvL9ucBhu pjocaU4hTds+Q13RBR6ZGVYFWR7A Ueb9P7TjZjxsvPE+BM65QAHbPR60 kDHxdUDrf4khmZa4WqDu NVUlONS5hIfqSLaei8WoGHUsP01b jWIky6K0EMAekUtxpGQhTnTedOZ3 sH9tVZvfhtdak4zvstzi Dhgsp1vqgx81jJ16F33tGWvzFSRy ZKX4NJQnTWNofQhbie4dqM8tCt4+ BSjtv9iqs6sxnKh8WyMk CUYhbjXinVdmTYU3m5NuMy72Q0Ab iUxkb2CjNhi8lz47oVIpc6Y8cJL0 BLumPPMgnY6cDTdrSkW0 IOQzLiLtuM62cZQkBVnrYi8yjOsl hEtbOV6zSQJvnbjxBQUhcN0oHHFx vDVjpNupOO8zETCgflgf l649AgWlIQY8DJBhyRKgC3WpcQ7f GwNyWMZlTHSlU5SzpPTvVMkdC309 WRfiUgB0ZTOtnsCkJ5Ug EGHvfRgaFcP5y9S2Kr0Kf8Kvgvbu NUG5JSrqAZZkMiOyBrFrZuD0W0Sv Dgg3BMZvrOsaVD6jN9Oh ESDvnyjprarnxWJ3LXAfDTBqbD07 hDOfQAdkZh6ei3V3b756YGBzTAXw xE31Sd0hdOsvUUIqtJHY zH4oouuug2ycaalsSfDlNYEqTMn5 RHx0OOKmqBubRsHiBIC7JvF1CYW8 fGDzeU8piXvaabpbsB3b Oyc+V92dgW7wUFW5DTY8dinsTAYw koEsMN91TA28T5QhGognnQRbhXG+ KEUafmBpvMbzIJ6sRwDj f5ils4DjRYqzO8XkWXKqJXduEbh4 MYWrMUS3hXY8aI7bTORlTUzxw4U7 wIA4F9TnhgGiec1gb5wt JMTmBZzsH81xxQYds4I5TSRrxVA8 JMGayYpbPoUrgN92Iyh+PGNvbGdy k0HfApocp3oxg9dwxNn1 EcEnOUSluyGwlYwcVLT2g4CuYc71 L09vQYxcOTPuAJNpQHRcPSGtoFmc qh4tqP5wDg4+PGNvbCB3 gIQ0cK4gJUNhRgQ8ZFudJ308YmPg fBNxDaobh6ead6jiaXp5PzNqZCUv smZpiZfeIUH0a4OcAp38 L57bUVbsXSIcAYQgOJBlHPNmtKxi uy0emJ3gZc7+YC8ua6ygcd53eZ51 dHI+IXXxUJV1sQccFQqm YNJdhO8tZUezDaV5RYWaAeMetZ56 yFLkIVbcRr5woTfniEakMX7dBNPw xshww932KhZvy5kmDOXt aVLiHCtqKNA0X39mi6P1ODQzNYFl TGQ6aMS3fJ1gwOiapeuxxRVrqCcs yoAzrMchFOmlSJqnP377 IHRvcDsnPlBhdGllbnQgTmFtZTo8 U9TkFip2KVEtfDzoGO2zpRPrMMak Ih2wtPcnrZnhQE1gISJk yfyxm330LyZnj2llASBjcRBiNAoo JYG5M55ff5W5ZEOzXPGhPHO2jZX8 pO1awPazcuygcAFgiUri dpCziLmfZBajTMmzA864WXJjjEcc VsKgrlJcRKYzdCF1PX01NK51rMMw z6O4uWU9P5JjBDZyoyey tyrerVU0FDZeHKTzlP03Jd7ytMfo Bo5tCDGoLEL0DGXbnLZvL4DgbG1w ChOkVUTlUVWaV4UikHFt NOmtO904ZRbvNsC3WSIbmiOuH5Lb TBDjjEmvInJ6p0R1Pr6KC4P1LD22 UJ48iIKua8B1fLK2G6Se DAYrpnbkdvydwCH7PBViBUOmcW58 Oy3iuPxlAv4eACEjHTN3MACfvJTs L4GbxM8bVnByFWJaVJWm O8SnsEZmKJyqK257XYrdArA5ADHe zxAuP6HnNRZqqWolYcV8n0V2Ez0U MZe3DD16ZF39hVAai0B7 lBW3Z4FzQRJjnwvtddvmzQA7OWIk NELbbY71Tn0taLszRo3rRYPcQBW3 LCAtpDDgJ7BtfE9nDzAa LFDnVJUyR1GxcWOePAtwV554LUyb OvW7YSLmjqYnF3OhDTTzyWrfNsF9 g7J7Zx7BBGLgZP93AYS7 gZL5SY33NZ67R1ZcQxzwpBKsjUV+ PHRhYmxlIHdpZHRoPScxMDAlJyBz yUnrVB5mBp7gVXPrIICk gNvagKCkOrVmf5deHUUcXGikJM1k oGpnL3ZzrYY8XMYnw6y3To20G92e O8DlfES+YDFhsUX9dNS5 pT5dIjJwNbZ4ERrrF416XaMlwCPe Xxpml4kvg8mqqUs8QmG7XOUtslCa hTunBXS0x9NqTn74Y68u YFapBMEyBSZjFXYtBVIfzQnnmq3f tP6pPc1+EZXhtJK2vUY4xM0fNiXe LxA0SKqzN988LeKkiILa Qxyio2sac8qjlKv0FyZuWGQzjrMz aWkbBWK4d5UlLf20K7WcbFjfk7Dp Sea3cr26hJNvy1B0eGZ4 M2NlDJIerhjsoLYevQzvFO6gXPNv ijczDRDstJ7xYXWsJ6b7RnOhWgD5 DMtaB9AjqdN9GPZjvDLr QZfaRYN7W44hz9F9GKFsRDXwBYK5 gWR3fN5afCjdhmlwaXNexIvqqlZx oNsmOBmqBZgaE228GHLy vWpfFNOeaK4vRLZluIFkiImdHF9s IAZvwgepEf9ZOXvVZcxeBZOJEJI2 D6KhQmi1HGSdePqwJE3w aCOnJBexIx3bwQrouHwwUH6iRVFu nmoiNEAbrI7oYRSpvWIelXqtVP7w EZEvewues378GmIdURP7 SAPrwJWcI2IesY9xXdCqFGYgVYAg E9QyqZCmYHcuB639MSipUtB0IZMc pnKqU6AiGKVdjEsgFmT4 k0B1Vz7kOl8sDp5yHFE1OI74KO57 tZDam0I4pAP9A1FfCHCgjbofmwap sSC8PMAmTHLvnF73hBBl NGbmNg8en2N0j630QQFsMWUvoU36 Qu6msUmmLEHoaHXOiE4wspzvk8ry vbnfIoYaHHIwYFk9IDc7 ABFbnBtaZxNxJBJ9OaQ1VFK4nRYz uG7ccXysqfthnF9wHej+ODUgWWVh mxC2C5PePuc4BKZaoEzs AM8nrHVjPVhkQk9aoXpfaOtuPS7f IYIzgcxwFPQcbY7dKBJqgFOofSep GN0fHHXpubsju825NwZp QPJ5AUFuzUJbS6OkzR0gUwGqVGPx ITDkL5KvgZFaZStoE351IFfnUvH3 YCRvnhNlE9LhLZCdiVhd MsN4v8E5Xb2DENczAD23CU01rNBg w6K7jWR1D5RtWHDtlgdolnplbZL8 BTCnOXZreI25tDHaZTks Tg2sf9G3e168JLAeQOOfhM57Ul4s uVpmQCVkpEAXiI9tmusrb5vkdhzi TcBsIWCyRCi7EHs5ULUx fMxoEpImKDK2ZqR0CLS4bDGvvK3k sItaxjidsL2mAdu+A0B5kYQ9nBDy dDwvdGQ+OB89sl35J7Pm TlyyBjx8ALAmGWP1jJN5vV0dWXWx MGrdn1W0cVD7F4ZfdzPrvx4ud2fk UMTdCHphP70qjFGiz7X1 NVWysUP6WKNsePrtMdHfcN41Zvn+ NYExmOjxe2EcGobte3uru0hqfIv2 IjMwJSIgdmFsaWduPSJ0 t2ZwOu16X97jYFtgSBLpPIUeIJGy JBKkoDmsgh5dxA9eMh8+PGNvbCB3 fTF5iQ9lWqYkOeU8JSbh H554WxYygQQoWzfcs3djq2qcoHp9 XrSzAHNrfiWnwNqmGNJ2i1JcEx16 R6IkbGxeb9MgByp6uy04 rCKok5C7fRQ3J7CiMZHzoapgtDIw uDslYO5mWATmefbuGMQkhG0iVHDw W9h7CyLxGqU8PLhwL2Xd zwF5FUWfvWSpPFSvgDGMuM9hwodc j8czbhmyEaCjSQWyHWu0QIm5TXZd mHskQcXcOWG9FeD3CVO2 dRXpbE8dqFihyjqgoU2oEpg+UGh5 b4cbnQPrYE1jwML3IR07VS44oPZd j9E2nQW9V4MqBYOajypt akajvAV9GABwNFBuhQ10Ro4xjRxg Ym2hIWUdPTV5IRRgtPKyJ7NhlH5f VoLlQWKcNWYwG4IdrBZv LCbfQ865FIhiPwX4XQKdcrJqY6Ik ILYoaJqmYyJ0o8Z0Vh5SCE08VN15 KY62zLVog4B1mNF4D0Jx WBAmtybsbgwpjBC7WRXkYVXnaM28 Tc4kwQkwIn3zFPSuMAD0ASFbdLLo D8LfpL6dPyDyEALkWZSn M4PjuCOuZDqcC613DNjxDuD4YZTj djYkS4OgVGZoqUjoClF5p1P8Vu3U Gf25UK07CY26uBUgm9I1 uFN9A8HmZVQxhjhwwadwzKL1WRWa CCEovU14Fv7peCkjWl5nQSYxWGL7 QPEfkEXwO6YahY7qVuBd CGKxJYHqC5OthSHlRRnwP061LEfk VwC7ECGgmxDmQ5IkJQAraXugYbA3 l8V8Ng8MOZppeou3R2Ea PjwvdHI+OX10BPBoEO78nGQjxHUi w8cowAp7BcTzYFPtHAH7iTihTEmb u7VdRHTkM16czXUoe8J4 IGNv (more content not included)... [facility] Consent for Procedure/Surger yon 08-06-2022 Consent for Procedure/Surgery [id number]#1.00CD:127 [facility] Consent for Treatmenton 07-09 Consent for Treatment [id number]#1.00CD:127 [facility] Main OR Intraoperative Recor don 08-06-2022 Main OR Intraoperative Record IntraOp Document Type FTURO Summary Primary Physician: Mekhi VERGARA MD Finalized Date/Time: 08/06/22 11:35:00 Pt. Name: BEN GUADALUPE/Sex: 1935 Male Med Rec #: [id number] Physician: Mekhi VERGARA MD Financial #: [id number] Pt. Type: O Room/Bed: / Admit/Disch: 08/06/22 10:31:40 - Institution: Case Times FTURO Entry 1 Patient Times In Room 08/06/22 11:20:00 Out Room 08/06/22 11:33:00 Procedure Times Start 08/06/22 11:22:00 Stop 08/06/22 11:28:00 Anesthesia Times Last Modified By: Aicha Garrido RN 08/06/22 11:34:44 Case Attendance FTURO Entry 1 Entry 2 Entry 3 Case Attendee Mekhi VERGARA MD [employer], Aicha Garrido RN, Aicha Rivas Role Performed Surgeon - Primary Scrub - Primary Ethernet Network Architect - Primary Time In 08/06/22 11:20:00 08/06/22 11:20:00 08/06/22 11:20:00 Time Out 08/06/22 11:33:00 08/06/22 11:33:00 08/06/22 11:33:00 Procedure CYSTOSCOPY LOCAL(.) CYSTOSCOPY LOCAL(.) CYSTOSCOPY LOCAL(.) Comments Last Modified By: Hema MCLAUGHLIN, Aicha Garrido RN, Aicha Ledesma RN 08/06/22 11:34:45 08/06/22 11:34:45 08/06/22 11:34:45 Surgical Procedures FTURO Entry 1 Procedure Description Procedure CYSTOSCOPY LOCAL Modifiers . Surgeon Description CYSTOSCOPY WITH FISH AND CYTOLOGY Primary Procedure Yes Primary Surgeon Mekhi VERGARA MD Start 08/06/22 11:22:00 Stop 08/06/22 11:28:00 Anesthesia Type Local Surgical Service Urology Wound Class 2 - Clean-Contaminated Last Modified By: Aicha Garrido RN 08/06/22 11:29:04 General Case Data FTURO Pre-Care Text: Classifies surgical wound, implements aseptic technique, initiates traffic control Entry 1 Case Information OR URO 1 FT Case Level None Wound Class 2 - Clean-Contaminated Specialty Transplant Preop Diagnosis HX OF BLADDER CANCER Postop Same As Preop Yes Postop Diagnosis HX OF BLADDER CANCER Outcomes Met? Yes Last Modified By: Aicha Garrido RN 08/06/22 11:26:21 Post-Care Text: The patient is free from signs and symptoms of infection EU IntraOp - FTURO Pre-Care Text: Implements protective measures prior to operative or invasive procedure, confirms identity before the operative or invasive procedure, verifies operative procedure, surgical site, and laterality Entry 1 EU Perioperative Protocols Procedure(s) CYSTOSCOPY LOCAL(.) Patient Identity Birthday, ID Band Verified (select at Check, Patient least 2): Participation Consents / H and P HandP, Surgery/Procedure Operative Site N/A Verified Consent Marking Verified Surgical Site Yes Laterality Verified Yes Verified Procedure Verified Yes Correct Patient Yes Position Verified Availability Equipment, Medication Time Out URSULA WORKMAN, Mekhi Oh, Verified (If Participants Aicha Roberts CST Applicable) Hema Mcallister RN, Kimberly Y Time Out Complete 08/06/22 11:21:00 Allergies Reviewed? Yes Allergies Reviewed Self/Patient With Body Position Supine Prep Area PENIS Prep Agents Betadine Solution Skin. Condition Dry, Warm, Unable to Description UNABLE TO VISUALIZE DUE Visualize TO PATIENT PARTIALLY CLOTHED Additional FISH, Other (See Specimens Comment FISH AND CYTOLOGY Specimens Collected Comment) Vitals - EU Blood Pressure 128/71 Pulse 75 bpm Respirations 18 br/min SPO2 95 % EBL 0 IandO - EU Total Intake 0 mL Total Output 0 mL Outcomes Met? Yes Last Modified By: Aicha Garrido RN 08/06/22 11:26:47 Post-Care Text: The patient is free from signs and symptoms of injury caused by extraneous objects Sign Out FTURO Entry 1 Before Patient Leaves OR Nurse verbally Yes Nurse verbally Yes confirms with the confirms with the team the name of team that the procedure(s) instrument, sponge, recorded and needle counts are correct (or N/A) Nurse verbally Yes Nurse verbally Yes confirms with the confirms with the team how the team whether there specimen is labeled are any equipment (including patient problems to be name), if applicable addressed Sign Out Complete 08/06/22 11:29:00 Last Modified By: Aicha Garrido RN 08/06/22 11:29:02 Case Comments Finalized By: Aicha Garrido RN Document Signatures Signed By: Aicha Garrido RN 08/06/22 11:35 Normal [facility] Main OR Preoperative Recordo n 08-06-2022 Main OR Preoperative Record Holding Area Document Type FTURO Summary Primary Physician: Mekhi VERGARA MD Finalized Date/Time: 08/06/22 10:59:58 Pt. Name: COLLINS BEN Green/Sex: 1935 Male Med Rec #: [id number] Physician: Mekhi VERGARA MD Financial #: [id number] Pt. Type: O Room/Bed: / Admit/Disch: 08/06/22 10:31:40 - Institution: Case Times Holding FTURO Pre-Care Text: Verifies consent for planned procedure, identifies individual values and wishes concerning care, includes family members in perioperative teaching Secures patient's records' belongings, and valuables, maintains patient's dignity and privacy, and maintains patient confidentiality Entry 1 In Holding 08/06/22 10:56:00 Outcomes Met? Yes Last Modified By: Araceli Kan LPN 08/06/22 10:56:38 Post-Care Text: The patient participates in decisions affecting his or her perioperative plan of care The patient's right to privacy is maintained Surgery Checklist FTURO Entry 1 Patient Birthday, Patient Procedure History and Physical, Identification: Participation Verification: Surgical Consent, With Patient NPO after Midnight: No Date/Time: 08/06/22 10:57:00 Personal Items: Cataract Lens Implant, Personal Items clothes Glasses, Jewelry Comment: Limitations: mobile scooter, cane Complaints of Pain: No Pain Comment: na Skin Integrity Intact, [place], Warm, & Dry Vitals - EU Blood Pressure Pulse Respirations SPO2 Blood Pressure 128/71 Pulse 75 Respirations 18 SPO2 95 Last Modified By: Araceli Kan LPN 08/06/22 10:58:38 General Comments: temp:36.2 Finalized By: Araceli Kan LPN Document Signatures Signed By: Araceli Kan LPN 08/06/22 10:58 Araceli Kan LPN 08/06/22 10:59 Normal [facility] Operative Reporton Operative Report Patient: BEN GUADALUPE Age: 86 years Sex: Male : 1935 Associated Diagnoses: None Author: Mekhi VERGARA MD Procedure Operative Information Details: Date/ Time: 08/06/2022 11:34:00. Pre-Op Dx: Hx of Bladder CA - Z85.51, Hx of Prostate CA - Z85.46. Post-Op Dx: Same. Anesthesia Type: Local. Procedure: Local Cystoscopy. Complications: None. Risks/Benefits/Informed Consent: Surgical risks, benefits, details of the procedure have been explained to the patient, Full informed consent has been obtained. Intraoperative Information Prepped: Patient is brought back to the endoscopy suite, Patient is placed in supine position, Patient prepped in the usual fashion with Betadine solution, 2% Xylocaine Jelly is placed per Urethra, After waiting several minutes the Cystoscope is introduced. The Urethra is: Normal. The Prostatic Urethra is: Unobstructed. The Bladder is: Trabeculated (Moderate (2), No bladder tumors). The ureteral orifices: Show efflux of clear urine. Specimens Removed: Bladder wash sent for FISH and Cytology test. Devices Implanted: None. Removal: Cystoscope is removed, The patient tolerated it well. Postoperative Information Discharge: Patient is discharged home with antibiotic coverage, Follow up arranged. Normal [facility] Comment on above: Result Comment: Elec tronically Signed By: Mekhi VERGARA MD\.br\Date and Time Signed: 08/06/22 11:35 EST [facility] Fish and Urine Cyt o ([facility])on 08-06-2022 [facility] Method of Extraction Cystoscopy Normal [facility] Comment on above: Performed By: #### 1 [id number] ####[facility] [id number] [place] [address] [facility] Number of Jars 1 Invalid Interpretation Code [facility] Comment on above: Performed By: #### 1 [id number] ####[facility] [id number] [place] [address] [facility] Specimen Cystoscopy Normal [facility] Comment on above: Performed By: #### 1 [id number] ####[facility] [id number] [place] [address] [facility] Type of Service Technical Only Normal [facility] Comment on above: Performed By: #### 1 [id number] ####[facility] [address] [place] [address] HPon 08-05-2022 [facility] Cardiology - [facility] Subjective Ben Guadalupe is a 86 y.o. year old male patient who presents to clinic to further discuss the Watchman device. He is accompanied by his grand daughter Liza. Patient Active Problem List Diagnosis Chest pain Coronary arteriosclerosis Hypertensive disorder Left ventricular hypertrophy Mixed hyperlipidemia PAF (paroxysmal atrial fibrillation) (CMS/HCC) Blood loss anemia Bleeding hemorrhoid Family History Problem Relation Name Age of Onset Heart failure Mother Prostate cancer Father Coronary artery disease Brother Prostate cancer Brother Social History Tobacco Use Smoking status: Never Smokeless tobacco: Never Substance Use Topics Alcohol use: Yes Comment: occasional Drug use: Never HPI He has a fairly recent diagnosis of paroxysmal atrial fibrillation that was found during his admission in February, and follow-up event monitor showed recurrence of a.fib. He has a history of anemia along with significant bleeding hemorrhoids that required blood transfusion and surgery. For these reasons he is currently not on anticoagulation. He denies any current issues with bleeding. He has chronic LE swelling. He denies CP, dyspnea, orthopnea, PND, dizziness/LH, palpitations. He mobilizes with his scooter. --- Last HPI per Dr. Danielle: Ben is an 86-year-old man with history of mild coronary artery disease by cardiac catheterization in 2013, hypertension. He has history of DVT in the left leg many years ago. He has leg edema is related to venous insufficiency and lack of ambulation. This is chronic. His prior echocardiograms showed mild elevation of right sided pressure that do not explain the leg edema. He has tried compression socks in the past but couldn't tolerate them. I had recommended leg elevation. In early February 2022 he was admitted to the [facility] with palpitations and chest pain. He was found to have atrial fibrillation with rapid ventricular response that later reverted to sinus rhythm. He was also found to have significant anemia and large amount of rectal bleeding that appeared to be related to hemorrhoids, he received blood transfusion. He also had DAVID that resolved. At that time I evaluated him in the hospital and I recommended against any anticoagulation therapy due to his anemia and bleeding. I also recommended an event monitor to rule out recurrence of atrial fibrillation. This showed evidence of recurrence of atrial fibrillation. On 05/17/2022 he underwent surgery for hemorrhoids. He has not had bleeding since then. Today he reports that he has been doing reasonably well. He has had no recurrence of palpitations or chest pain since that episode in early February. He otherwise has chronic lower extremity edema. He uses a scooter to ambulate. No significant shortness of breath. Review of Systems Cardiovascular: Positive for leg swelling. Negative for chest pain, claudication, dyspnea on exertion, irregular heartbeat, near-syncope, orthopnea, palpitations, paroxysmal nocturnal dyspnea and syncope. Hematologic/Lymphatic: Negative. Musculoskeletal: Positive for arthritis, back pain and myalgias. All other systems reviewed and are negative. Objective Visit Vitals BP 125/71 (BP Location: Right arm, Patient Position: Sitting) Pulse 90 Ht 1.778 m (5' 10 ) Wt 88 kg (194 lb) SpO2 96% BMI 27.84 kg/m??? Smoking Status Never BSA 2.08 m??? Physical Exam Constitutional: Appearance: He is well-developed. He is not ill-appearing. HENT: Head: Normocephalic and atraumatic. Nose: Nose normal. Eyes: General: No scleral icterus. Pupils: Pupils are equal, round, and reactive to light. Neck: Thyroid: No thyromegaly. Vascular: No JVD. Cardiovascular: Rate and Rhythm: Normal rate and regular rhythm. Pulses: Radial pulses are 2+ on the right side. Heart sounds: Normal heart sounds. No murmur heard. No friction rub. No gallop. Pulmonary: Effort: Pulmonary effort is normal. No respiratory distress. Breath sounds: Normal breath sounds. No wheezing or rales. Chest: Chest wall: No tenderness. Abdominal: General: Bowel sounds are normal. There is no distension. Palpations: Abdomen is soft. Tenderness: There is no abdominal tenderness. Musculoskeletal: General: No swelling. Cervical back: Neck supple. Right lower le+ Pitting Edema present. Left lower le+ Pitting Edema present. Comments: Uses a scooter to ambulate Skin: General: Skin is warm and dry. Neurological: General: No focal deficit present. Mental Status: He is alert and oriented to person, place, and time. Psychiatric: Mood and Affect: Mood normal. Behavior: Behavior is cooperative. Judgment: Judgment normal. Allergies Allergies Allergen Reactions Oxycodone-Acetaminophen Other reaction(s): vomiting Tizani (more content not included)... Normal [facility] Office Visiton 08-05-2022 Follow-up visit [id number] Ben Guadalupe 1935 [facility]ly [facility] Provider Department Center 08/05/2022 NERISSA TESFAYE [facility]IS [facility] Family History Problem Relation Age of Onset Heart failure Mother Prostate cancer Father Coronary artery disease Brother Prostate cancer Brother Family Status - Relation Status Age at Mother Father Brother Level of Service:30259 ME OFFICE/OUTPATIENT ESTABLISHED LOW MDM 20-29 MIN Reason for Visit and Comments: Atrial Fibrillation [80] - Discuss Watchman Coronary Artery Disease [187] Hypertension [899454] Normal [facility] POINT OF CARE GLUCOSEon -0 Glucose [Mass/Vol] 203 mg/dL Critically high 74-106 [facility] Comment on above: Performed By: #### U A #### [facility] [address] [place] [address] Dr. Mason Astudillo Office Visiton 06-24-2022 Follow-up visit [id number] Ben Guadalupe 1935 Date Provider Department Center 06/24/2022 1596-MARITZA KIRKLAND CONCHIS [facility] Family History Problem Relation Age of Onset Heart failure Mother Prostate cancer Father Coronary artery disease Brother Prostate cancer Brother Family Status - Relation Status Age at Mother Father Brother Level of Service:18614 ME OFFICE/OUTPATIENT ESTABLISHED SF MDM 10-19 MIN Reason for Visit and Comments: Atrial Fibrillation [80] Coronary Artery Disease [187] Hypertension [943650] Normal [facility] Follow-Upon 05-27-2022 Follow-Up [id number] Ben Guadalupe 1935 M Date Provider Department Center 05/27/2022 CeasarKAVITA DANIELLE [facility] Family History Problem Relation Age of Onset Heart failure Mother Prostate cancer Father Coronary artery disease Brother Prostate cancer Brother Family Status - Relation Status Age at Mother Father Brother Level of Service:66180 ME OFFICE/OUTPATIENT ESTABLISHED MOD MDM 30-39 MIN Reason for Visit and Comments: Coronary Artery Disease [187] Hypertension [415058] Hyperlipidemia [182] LVH [Other] Normal [facility] ANES POSTPROC EVALon 022 ANES POSTPROC EVAL HNO ID: [id number] Author: Kandice Guadalupe MD Service: ? Author Type: Physician Type: Anesthesia Postprocedure Evaluation Filed: 05/17/2022 2:13 PM Note Text: POST ANESTHESIA EVALUATION NOTE : 1935 Procedure Summary Date: 05/17/22 Room / Location: [address] [facility] Anesthesia Start: 954 Anesthesia Stop: 1201 Procedures: EXAM UNDER ANESTHESIA RECTAL (Anus) HEMORRHOIDECTOMY EXTERNAL AND INTERNAL 2 OR MORE COLUMNS/GROUPS (Anus) COLONOSCOPY WITH BIOPSY (Abdomen) Diagnosis: Fourth degree hemorrhoids (Fourth degree hemorrhoids [K64.3]) Surgeons: Tristin Wilcox MD, PhD Responsible Provider: Kandice Guadalupe MD Anesthesia Type: general ASA Status: 3 Anesthesia Type: general Airway Type: LMA Last Vitals Vitals Value Taken Time BP 133/77 05/17/22 1329 Temp 36 ?C (96.8 ?F) 05/17/22 1301 Pulse 70 05/17/22 1329 Resp 16 05/17/22 1329 SpO2 97 % 05/17/22 1329 Post Anesthesia Patient Status Patient Evaluation: PACU. PACU/ICU Patient Condition: stable. Anticipated Disposition: phase 2 then home. Neurological Status: aware and responsive. Pulmonary Status: breathing comfortably on room air Airway Control: returned to baseline unsupported. Cardiovascular Status: stable. Pain Management: satisfactory to patient Postoperative Hydration: acceptable. Intraoperative Events: no significant anesthesia events Post Operative Nausea/Vomiting Status: no significant post operative nausea or vomiting Recommendation: further care per PACU/ICU/floor team. Anesthesia Observations No notable events were associated with this procedure. Documented by Minesh Levy APRN.CERAMIC WORKER 05/17/2022 12:02 PM EST SIGNATURE: Kandice Guadalupe MD PATIENT NAME: Ben Guadalupe DATE: May 17, 2022 TIME: 2:13 PM CSN: [id number] Normal [facility] ANES PRE-OPon 05-17-2022 ANES PRE-OP HNO ID: [id number] Author: Kandice Guadalupe MD Service: ? Author Type: Physician Type: Anesthesia Preprocedure Evaluation Filed: 05/17/2022 8:42 AM Note Text: ANESTHESIOLOGY DAY OF SURGERY NOTE : 1935 Procedure Information Date/Time: 05/17/22 0915 Procedures: EXAM UNDER ANESTHESIA RECTAL (Anus) HEMORRHOIDECTOMY EXTERNAL AND INTERNAL 2 OR MORE COLUMNS/GROUPS (Anus) COLONOSCOPY WITH BIOPSY (Abdomen) Location: MAIN OR[facility] Surgeons: Tristin Wilcox MD, PhD Estimated body mass index is 27.26 kg/m? as calculated from the following: Height as of this encounter: 177.8 cm (5' 10 ). Weight as of this encounter: 86.2 kg (190 lb). Most recent hematocrit and potassium results: Hematocrit 38.9 05/10/2022 Potassium 3.2 05/10/2022 Relevant Problems ANESTHESIA (+) Sleep apnea CARDIO (+) Arteriosclerosis of coronary artery (+) Essential (primary) hypertension (+) Other hemorrhoids (+) PAF (paroxysmal atrial fibrillation) (HCC) ENDO (+) Hypothyroidism unspecified GI (+) Gastroesophageal reflux disease with esophagitis -RENAL (+) Calculus of kidney (+) Chronic kidney disease, stage 4 (severe) (HCC) NEURO-PSYCH (+) History of DVT (deep vein thrombosis) (+) History of primary malignant neoplasm of urinary bladder (+) History of prostate cancer PULMONARY (+) Chronic obstructive pulmonary disease (HCC) (+) Sleep apnea I - PHYSICAL EVALUATION AIRWAY Patient intubated: No. Tracheostomy tube not present Mallampati: III. TM distance: >3 FB. Neck ROM: limited extension. Mouth opening: adequate. Short neck: no. Thick neck: no Newby present: no II - ANESTHESIA PLAN ASA Score: 3 Anesthetic Plan: general Airway type: LMA NPO Status: adequate Beta Juliana Monitoring Plan Monitoring plan: standard ASA. Post Procedure Analgesic Plan Postoperative analgesic plan: multimodal analgesia. Informed Consent Anesthetic risks, benefits, alternatives, personnel and consent discussed: yes. Patient / Responsible Constitution Party agrees to proceed: yes Patient / Surrogate agrees to blood products: blood products not planned Significant changes in the patient condition since the History and Physical, not otherwise documented in primary service progress note: no. Potential Anesthesia issues that may suggest increased risk of complications or contraindication to planned procedure: none. Vitals Value Taken Time BP 144/74 05/17/2245 Pulse 72 05/17/2245 Resp 16 05/17/22744 Temp 36.4 ?C (97.5 ?F) 05/17/22744 SpO2 99 % 05/17/22744 Facility-Administered Medications as of 05/17/2022 Medication Dose Route Frequency - lidocaine (PF) 10 mg/mL (1 %) 1-2 mg injection (XYLOCAINE) 0.1-0.2 mL INTRADERMAL PRN Or - lidocaine 1% 0.25 mL subcutaneous j-tip syringe (XYLOCAINE) 0.25 mL SUBCUTANEOUS PRN - lactated ringers iv infusion 50 mL/hr INTRAVENOUS CONTINUOUS - [COMPLETED] gabapentin 300 mg tab(s) (NEURONTIN) 300 mg ORAL ONCE - sodium chloride 0.9 % (flush) 2-10 mL (BD POSIFLUSH) 2-10 mL INTRAVENOUS q 12 H Outpatient Medications as of 05/17/2022 Medication Sig - famotidine (PEPCID) 20 mg tablet Take 1 tablet by mouth daily at bedtime. 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 - tamsulosin (FLOMAX) 0.4 mg Take 0.4 mg by mouth once daily. - furosemide (LASIX) 40 mg tablet Take 40 mg by mouth once daily. - ferrous sulfate 325 mg (65 mg iron) EC tablet Take 325 mg by mouth daily with breakfast. - dilTIAZem CR (TIAZAC, TAZTIA XT) 180 mg 24 hr capsule Take 180 mg by mouth once daily. - magnesium oxide (MAG-OX) 400 mg (241.3 mg magnesium) tablet Take 400 mg by mouth once daily. - dapagliflozin (FARXIGA) 10 mg tablet Take by mouth daily with breakfast. - pregabalin (LYRICA) 50 mg capsule Take 50 mg by mouth three times daily. - atorvastatin (LIPITOR) 20 mg tablet Take 20 mg by mouth once daily. - baclofen (LIORESAL) 10 mg tablet Take 10 mg by mouth three times daily. - psyllium husk (METAMUCIL ORAL) Take by mouth. - donepezil (ARICEPT) 10 mg tablet Take 10 mg by mouth daily at bedtime. - CHOLECALCIFEROL, VITAMIN D3, (D3-2000 ORAL) Take by mouth once daily. - potassium chloride (K-ANDI, KLOR-CON) 20 mEq packet Take 20 mEq by mouth three times daily. - metoprolol tartrate, short acting, (LOPRESSOR) 25 mg tablet Take 25 mg by mouth twice daily. - allopurinol (ZYLOPRIM) 300 mg tablet Take 300 mg by mouth once daily. - dicyclomine (BENTYL) 20 mg tablet Take 20 mg by mouth once daily. - losartan (COZAAR) 100 mg tablet Take 100 mg by mouth once daily. - MULTIVITAMIN ORAL Take by mouth once daily. - folic acid-Vit B6-Vit B12 (FOLTX) 2.5-25-2 mg tab Take 1 tablet by mouth once daily. - fluticasone (FLONASE) 50 mcg/actuation na (more content not included)... Normal [facility] BRIEF OP NOTon 05-17-2022 BRIEF OP NOT HNO ID: [id number] Author: Tristin Wlicox MD, PhD Service: Colorectal Author Type: Physician Type: Brief Op Note Filed: 05/17/2022 11:34 AM Note Text: BRIEF OPERATIVE NOTE - COLORECTAL SURGERY Log ID: [id number] Surgery/Procedure Date: 05/17/2022 Incision/Procedure Start Time: 10:17 AM Incision Close/Procedure End Time: 11:27 AM Surgeon(s) and Dimethylaniline Sulfator Operator(s): Surgeon(s) and Role: * Tristin Wilcox MD, PhD - Primary * Clover Talbert MD - Resident - Assisting No Additional Staff Procedures and Anesthesia: Procedure(s) and Anesthesia Type: * EXAM UNDER ANESTHESIA RECTAL - General * HEMORRHOIDECTOMY EXTERNAL AND INTERNAL 2 OR MORE COLUMNS/GROUPS - General * COLONOSCOPY WITH BIOPSY - General POLYPECTOMY WITH HOT SNARE x3 Stoma Type: N/A Findings: Colonoscopy up to the cecum.10 mm sessile polyp in the ascending colon, 10 mm sessile polyp in the descending colon, 12 mm pedunculated polyp in the rectum, all removed with hot snare. Hemorrhoidectomy at left and right posterior positions. Estimated Blood Loss: 10 cc Specimens: ID Type Source Tests Collected by Time Destination A : RIGHT COLON POLYP Tissue COLON POLYP SURGICAL PATHOLOGY Tristin Wilcox MD, PhD 05/17/2022 10:25 AM B : LEFT COLON POLYP Tissue COLON POLYP SURGICAL PATHOLOGY Tristin Wilcox MD, PhD 05/17/2022 10:30 AM C : RECTAL POLYP Tissue RECTAL POLYP SURGICAL PATHOLOGY Tristin Wilcox MD, PhD 05/17/2022 10:34 AM D : left lateral Tissue HEMORRHOID SURGICAL PATHOLOGY Tristin Wilcox MD, PhD 05/17/2022 10:56 AM E : right posterior Tissue HEMORRHOID SURGICAL PATHOLOGY Tristin Wilcox MD, PhD 05/17/2022 11:13 AM Diagnosis Code(s): Pre-Op Diagnosis Codes: * Fourth degree hemorrhoids [K64.3] Postop Diagnosis: same Drains: None Wound Classification: N/A Complications: None SIGNATURE: Tristin Wilcox MD, PhD PATIENT NAME: Ben Guadalupe DATE: May 17, 2022 TIME: 11:30 AM Normal [facility] Gas and Carbon monoxide pane l (BldV)on 05-17-2022 BASE DEFICIT, VENOUS -2 mmol/L Normal -2-0 [facility] Comment on above: Order Comment: Speci men Type: VENOUS BLOOD SPECIMENOrdering Facility: [facility] Address: [address] [place] [id number] Performed By: #### 2 4344-4 ####[facility] LABCLIA [id number] [place] [address] [place] Body temperature 97.52 [degF] Normal [facility] Comment on above: Order Comment: Speci men Type: VENOUS BLOOD SPECIMENOrdering Facility: [facility] Address: [address] [address] Performed By: #### 2 4344-4 ####[facility]CL[facility] [id number] [place] [address] [place] Calcium.ionized (Bld) [Mass/Vol] 1.17 mmol/L Normal 1.08-1.30 [facility] Comment on above: Order Comment: Speci men Type: VENOUS BLOOD SPECIMENOrdering Facility: [facility] Address: [address] [address] Performed By: #### 2 4344-4 ####[facility]CL[facility] [id number] [place] [address] [place] Calcium.ionized adjusted to pH 7.4 (BldA) [Moles/Vol] 1.17 mmol/L Normal 1.08-1.30 [facility] Comment on above: Order Comment: Speci men Type: VENOUS BLOOD SPECIMENOrdering Facility: [facility] Address: [address] [address] Performed By: #### 2 4344-4 ####[facility]CL[facility] [id number] [place] [address] [place] Carboxyhemoglobin (BldV) [Mass fraction] 1.4 % Normal 0.0-2.0 [facility] Comment on above: Order Comment: Speci men Type: VENOUS BLOOD SPECIMENOrdering Facility: [facility] Address: [address] Result Comment: Carb oxyhemoglobin Reference Range for Smokers: 2.0-8.0% Performed By: #### 2 4344-4 ####[facility]CL[facility] [id number] [place] [address] [place] CO2 (BldV) [Partial pressure] 37 mm[Hg] Low 42-55 [facility] Comment on above: Order Comment: Speci men Type: VENOUS BLOOD SPECIMENOrdering Facility: [facility] Address: [address] [place] [address] Performed By: #### 2 4344-4 ####[facility]CL[facility] [id number] [place] [address] [place] CO2 [Moles/Vol] 23 mmol/L Low 25-29 [facility] Comment on above: Order Comment: Speci men Type: VENOUS BLOOD SPECIMENOrdering Facility: [facility] Address: [address] [place] [address] Performed By: #### 2 4344-4 ####[facility]CL[facility] [id number] [place] [address] [place] CO2 adjusted to patient's actual temperature (BldV) [Partial pressure] 35 mmHg Low 42-55 [facility] Comment on above: Order Comment: Speci men Type: VENOUS BLOOD SPECIMENOrdering Facility: [facility] Address: [address] [place], [place] [address] Performed By: #### 2 4344-4 ####[facility]CL[facility] [id number] [place] [address] [place] Glucose [Mass/Vol] 198 mg/dL High 60-105 [facility] Comment on above: Order Comment: Speci men Type: VENOUS BLOOD SPECIMENOrdering Facility: [facility] Address: [address] [place], [place] [address] Performed By: #### 2 4344-4 ####[facility]CL[facility] [id number] [place] [address] [place] HCO3 (Bld) [Moles/Vol] 22 mmol/L Low 24-28 [facility] Comment on above: Order Comment: Speci men Type: VENOUS BLOOD SPECIMENOrdering Facility: [facility] Address: [address] [address] Performed By: #### 2 4344-4 ####[facility] LABIA [id number] [place] [address] [place] Hematocrit (Bld) [Volume fraction] 36.4 % Low 39.0-51.0 [facility] Comment on above: Order Comment: Speci men Type: VENOUS BLOOD SPECIMENOrdering Facility: [facility] Address: [address] [address] Performed By: #### 2 4344-4 ####[facility] LABIA [id number] [place] [address] [place] Hemoglobin (Bld) [Mass/Vol] 11.8 g/dL Low 13.0-17.0 [facility] Comment on above: Order Comment: Speci men Type: VENOUS BLOOD SPECIMENOrdering Facility: [facility] Address: [address] [address] Performed By: #### 2 4344-4 ####[facility] LABIA [id number] [place] [address] [place] Lactate [Moles/Vol] 1.9 mmol/L Normal 0.5-2.2 [facility] Comment on above: Order Comment: Speci men Type: VENOUS BLOOD SPECIMENOrdering Facility: [facility] Address: [address] Performed By: #### 2 4344-4 ####[facility] LABIA [id number] [place] [address] [place] Methemoglobin (Bld) [Mass fraction] 1.1 % Normal 0.0-1.5 [facility] Comment on above: Order Comment: Speci men Type: VENOUS BLOOD SPECIMENOrdering Facility: [facility] Address: [address] Performed By: #### 2 4344-4 ####[facility]CL[facility] [id number] [address] [place] O2 THERAPY RA=Room Air Normal [facility] Comment on above: Order Comment: Speci men Type: VENOUS BLOOD SPECIMENOrdering Facility: [facility] Address: [address] Performed By: #### 2 4344-4 ####[facility]CL[facility] [id number] [place] [address] [place] Oxygen (BldV) [Partial pressure] 50 mm[Hg] High 35-45 [facility] Comment on above: Order Comment: Speci men Type: VENOUS BLOOD SPECIMENOrdering Facility: [facility] Address: [address] [place], [place] [address] Performed By: #### 2 4344-4 ####[facility]CL[facility] [id number] [address] [place] Oxygen adjusted to patient's actual temperature (BldV) [Partial pressure] 48 mmHg High 35-45 [facility] Comment on above: Order Comment: Speci men Type: VENOUS BLOOD SPECIMENOrdering Facility: [facility] Address: [address] [place] [address] Performed By: #### 2 4344-4 ####[facility]CL[facility] [id number] [address] [place] Oxygen saturation in Venous blood 82 % Normal 60-85 [facility] Comment on above: Order Comment: Speci men Type: VENOUS BLOOD SPECIMENOrdering Facility: [facility] Address: [address] [place] [address] Performed By: #### 2 4344-4 ####[facility]CL[facility] [id number] [place] [address] [place] Oxyhemoglobin (BldV) [Mass fraction] 80 % Normal 60-85 [facility] Comment on above: Order Comment: Speci men Type: VENOUS BLOOD SPECIMENOrdering Facility: [facility] Address: [address] Performed By: #### 2 4344-4 ####[facility]IA [id number] [place] [address] [place] pH (BldV) 7.39 [pH] Normal 7.32-7.42 [facility] Comment on above: Order Comment: Speci men Type: VENOUS BLOOD SPECIMENOrdering Facility: [facility] Address: [address] Performed By: #### 2 4344-4 ####[facility]IA [id number] [place] [address] [place] pH adjusted to patient's actual temperature (BldV) 7.40 Normal 7.32-7.42 [facility] Comment on above: Order Comment: Speci men Type: VENOUS BLOOD SPECIMENOrdering Facility: [facility] Address: [address] Performed By: #### 2 4344-4 ####[facility]IA [id number] [place] [address] [place] Potassium [Moles/Vol] 2.9 mmol/L Low 3.5-5.0 [facility] Comment on above: Order Comment: Speci men Type: VENOUS BLOOD SPECIMENOrdering Facility: [facility] Address: [address] Performed By: #### 2 4344-4 ####[facility]IA [id number] [place] [address] [place] Sodium [Moles/Vol] 137 mmol/L Normal 136-144 [facility] Comment on above: Order Comment: Speci men Type: VENOUS BLOOD SPECIMENOrdering Facility: [facility] Address: [address] Performed By: #### 2 4344-4 ####[facility] LABCLROXANA [id number] [address] [place] [address] [place] OPERATIVE NOon 05-17-2022 OPERATIVE NO HNO ID: [id number] Author: Tristin Wilcox MD, PhD Service: Colorectal Author Type: Physician Type: Operative Report Filed: 05/31/2022 2:52 PM Note Text: OPERATIVE REPORT LOG ID: [id number] SURGERY DATE: 05/17/2022 INCISION/PROCEDURE START TIME: 10:17 AM INCISION CLOSE/PROCEDURE END TIME: 11:27 AM PREOPERATIVE DIAGNOSIS: Prolapsing, symptomatic, large internal and external hemorrhoids. Colonic polyps. POSTOPERATIVE DIAGNOSIS: Grade 4; Prolapsing, symptomatic, large internal and external hemorrhoids. Colonic polyps. Surgeon(s)/Proceduralist(s) and Dimethylaniline Sulfator Operator(s): Surgeon(s) and Role: * Tristin Wilcox MD, PhD - Primary * Clover Talbert MD - Resident - Assisting Procedure(s): 1) Examination under general anesthesia to the anorectal area. 2) Colonoscopy 3) Polypectomies with hot snare 4) Hemorrhoidectomy 5) Perianal nerve block and bilateral pudendal nerve blocks using 30 mL of quarter percent Marcaine and 20 mL of Exparel. ANESTHESIA: General. INDICATION: Ben Guadalupe is a 86 year old year old male with h/o hemorrhoids for 30 years. A few months ago he had afib, started blood thinners and had a lot of bleeding, needing transfusion. OPERATIVE FINDINGS: Colonoscopy up to the cecum.10 mm sessile polyp in the ascending colon, 10 mm sessile polyp in the descending colon, 12 mm pedunculated polyp in the rectum, all removed with hot snare. The patient had large, nonthrombosed, internal and external hemorrhoids in the left and right posterior positions. The distal rectal mucosa appeared normal without inflammation. PROCEDURE IN DETAIL: After informed consent was obtained, the patient was brought to the operating room where general anesthesia was induced without difficulty. He was placed in lithotomy position. The perineum was sterilely prepped and draped in standard fashion. Colonoscopy was performed up to the cecum. A 10 mm sessile polyp was found in the ascending colon, a 10 mm sessile polyp was found in the descending colon, and a 12 mm pedunculated polyp was found in the rectum. All 3 polyps were removed using a hot snare. Then, we proceeded with the hemorrhoidectomy. A digital rectal exam was performed in order to reduce the prolapsing internal hemorrhoids. A medium Hill-Altman retractor was then inserted into the anal canal and the operative findings are noted above. The large internal and external hemorrhoids were located in the right posterior, and left lateral positions. They were excised in the following similar manner, beginning with the left lateral hemorrhoid. The hemorrhoid was grasped with a Delicia clamp. The hemorrhoid was excised taking great care to preserve the underlying sphincter fibers at all times. A 2-0 Chromic suture was used to suture ligate the base, and close the open wound. Any bleeding left from the excision was meticulously controlled with Bovie electrocautery. The anal canal was irrigated with saline solution, and hemostasis was adequate. The right posterior hemorrhoid was then excised in a similar fashion. Again, the hemorrhoid was excised up to the hemorrhoidal base, and a 2-0 Chromic suture was used to suture ligate the pedicle of the hemorrhoid, followed by excision of hemorrhoid. The wound was closed with the 2-0 Chromic. An anal field block consisting of 20 mL of Exparel mixed with 30 ml 0.25% marcaine was instilled into the four quadrants of the anal canal and pudendal nerve bilaterally for prolonged postoperative analgesia. A sterile gauze dressing was then applied. The patient tolerated this procedure well without complications. Estimated blood loss was 10 mL. I was present and scrubbed for the entire duration of the operation. The patient was returned to the supine position and extubated in the operating room. He was brought to the recovery room in stable condition. Tristin Wilcox MD, PhD ESTIMATED BLOOD LOSS: 10 cc SPECIMENS: ID Type Source Tests Collected by Time Destination A : RIGHT COLON POLYP Tissue COLON POLYP SURGICAL PATHOLOGY Tristin Wilcox MD, PhD 05/17/2022 10:25 AM B : LEFT COLON POLYP Tissue COLON POLYP SURGICAL PATHOLOGY Tristin Wilcox MD, PhD 05/17/2022 10:30 AM C : RECTAL POLYP Tissue RECTAL POLYP SURGICAL PATHOLOGY Tristin Wilcox MD, PhD 05/17/2022 10:34 AM D : left lateral Tissue HEMORRHOID SURGICAL PATHOLOGY Tristin Wilcox MD, PhD 05/17/2022 10:56 AM E : right posterior Tissue HEMORRHOID SURGICAL PATHOLOGY Tristin Wilcox MD, PhD 05/17/2022 11:13 AM IMPLANTED DEVICES: NONE DRAINS: None COMPLICATIONS: None PARTICIPATION IN SURGERY PROCEDURE: I/primary surgeon/proceduralist performed the procedure with assistance. PATIENT NAME: Ben Guadalupe Normal [facility] POTASSIUM BLDon 05-17-2022 Potassium [Moles/Vol] 3.0 mmol/L Low 3.7-5.1 [facility] Comment on above: Order Comment: Speci men Type: BLOOD SPECIMENOrdering Facility: [facility] Address: [address] [place] [address] Performed By: #### K 1 ####[facility] LABCLIA [id number] [address] SURGICAL PATHOLOGYon 022 CASE REPORT Normal [facility] Comment on above: Order Comment: Speci men Type: TISSUE SPECIMENOrdering Facility: [facility] Address: [address] [place] [address] Result Comment: Surg ical Pathology Report Case: [id number] Authorizing Provider: Tristin Wilcox, Collected: 05/17/2022 10:25 AM , PhD Ordering Location: Admitting Received: 05/17/2022 01:44 PM Pathologist: Daryn June MD Specimens: A) - COLON POLYP, RIGHT COLON POLYP B) - COLON POLYP, LEFT COLON POLYP C) - RECTAL POLYP D) - HEMORRHOID, left lateral E) - HEMORRHOID, right posterior Performed By: #### S ####[facility] LABCLIA [id number] [place] [address] [place] [facility] LABCLIA [id number] [address] OF [facility] CLINICAL HISTORY Normal [facility] Comment on above: Order Comment: Speci men Type: TISSUE SPECIMENOrdering Facility: [facility] Address: [address] [address] Result Comment: Pre- op diagnosis: Fourth degree hemorrhoids [K64.3] Performed By: #### S ####[facility] LABCLIA [id number] [address] LABCLIA [id number] [address] FINAL DIAGNOSIS Normal [facility] Comment on above: Order Comment: Speci men Type: TISSUE SPECIMENOrdering Facility: [facility] Address: [address] [address] Result Comment: A. C olon, right, polyp, biopsy: - Tubular adenoma. B. Colon, left, polyp, biopsy: - Tubular adenoma. C. Rectum, polyp, biopsy: - Tubular adenoma. D. Anus, left lateral, hemorrhoid, excision: - Fibroepithelial polyp. E. Anus, right posterior, hemorrhoid, excision: - Dilated hemorrhoidal varices. Performed By: #### S ####[facility] LABCLIA [id number] [address] LABCLIA [id number] [address] FINAL PERFORMING LAB Normal [facility] Comment on above: Order Comment: Speci men Type: TISSUE SPECIMENOrdering Facility: [facility] Address: [address] [address] Result Comment: Diag nostic interpretation performed at [facility], [address] [place] [address] CLIA# [id number] Distribution A Class Lineman: Nga Schultz M.D. Performed By: #### S ####[facility] LABCLIA [id number] [address] LABCLIA [id number] [facility] [id number] [id number] [place] GROSS DESCRIPTION A. COLON POLYP Normal [facility] Comment on above: Order Comment: Speci men Type: TISSUE SPECIMENOrdering Facility: [facility] Address: [address] [place] [address] Result Comment: Rece ived in formalin is one piece of cason, soft tissue measuring 0.3 x 0.2 x 0.2 cm. Also received in the same container are multiple friable fragments of cason-busby and foreign material aggregating to 1.0 x 0.2 x 0.1 cm. Totally submitted in one cassette. B. COLON POLYP Received in formalin is one piece of cason, soft tissue measuring 0.4 x 0.4 x 0.3 cm. Also received in the same container are multiple segments of cason-brown friable foreign material aggregating to 1.0 x 0.2 x 0.1 cm. Totally submitted in one cassette. C. RECTAL POLYP Received in formalin is a cason-pink polypoid segment of tissue measuring 0.5 x 0.4 x 0.3 cm no stalk is present. The line of resection is noted. The specimen is bisected. Also received in the same container are multiple segments of cason, soft tissue and foreign material aggregating to 0.7 x 0.2 x 0.1 cm. Totally submitted in one cassette. [facility] May 17, 2022 3:41 PM Gross examination performed at [facility], [address] [facility] [place] [address] D. HEMORRHOID Received fresh designated left lateral is a cason-busby portion of skin that measures 4.5 x 1.5 x 1 cm. Sectioning through the specimen reveals hemorrhagic cut surfaces. Enrobing Machine Feeder sections are submitted in 1 cassette. WE May 17, 2022 3:17 PM Gross examination performed at [facility], [facility] [place] [address] E. HEMORRHOID Received fresh designated right posterior is a pink-cason portion of skin that measures 3.9 x 0.6 x 0.6 cm. Sectioning through the specimen reveals hemorrhagic cut surfaces. Enrobing Machine Feeder sections are submitted in 1 cassette. WE May 17, 2022 3:19 PM Gross examination performed at [facility], [facility] [place] [place] [address] Performed By: #### S ####[facility] LABCLIA [id number] [place] [id number] [place] OF [facility] LABCLIA [id number] [address] [place] 05-16-2022 CNPN Telephone (CORSMN) BEN GUADALUPE ([id number]) 1935 M Date Time Provider Department 05/16/22 TRISTIN RUIZ During your visit today, we recorded the following information about you: Delicia Fuller 05/16/2022 4:06 PM Signed The blood bank called, stated the patient will need a new t-30 screen tomorrow before surgery. He didn't qualify due to being infused today per blood bank. Allergies As of Date: 05/16/2022 Noted Allergy Reaction TIZANIDINE 05/11/2019 1 - Mental Status Change 11 - Vomiting OXYCODONE-ACETAMINOPHEN 06/03/2016 11 - Vomiting Comments: Other reaction(s): vomiting Date Reviewed: 05/10/2022 Reviewed by: Afia Downing PA-C - Fully Assessed Reason for Visit: Results [95] Prescriptions as of 05/16/2022 - famotidine (PEPCID) 20 mg tablet Take 1 tablet by mouth daily at bedtime. 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 - tamsulosin (FLOMAX) 0.4 mg Take 0.4 mg by mouth once daily. - furosemide (LASIX) 40 mg tablet Take 40 mg by mouth once daily. - ferrous sulfate 325 mg (65 mg iron) EC tablet Take 325 mg by mouth daily with breakfast. - dilTIAZem CR (TIAZAC, TAZTIA XT) 180 mg 24 hr capsule Take 180 mg by mouth once daily. - magnesium oxide (MAG-OX) 400 mg (241.3 mg magnesium) tablet Take 400 mg by mouth once daily. - dapagliflozin (FARXIGA) 10 mg tablet Take by mouth daily with breakfast. - pregabalin (LYRICA) 50 mg capsule Take 50 mg by mouth three times daily. - atorvastatin (LIPITOR) 20 mg tablet Take 20 mg by mouth once daily. - baclofen (LIORESAL) 10 mg tablet Take 10 mg by mouth three times daily. - psyllium husk (METAMUCIL ORAL) Take by mouth. - donepezil (ARICEPT) 10 mg tablet Take 10 mg by mouth daily at bedtime. - CHOLECALCIFEROL, VITAMIN D3, (D3-2000 ORAL) Take by mouth once daily. - potassium chloride (K-ANDI, KLOR-CON) 20 mEq packet Take 20 mEq by mouth three times daily. - aspirin, enteric coated (ASPIRIN, ENTERIC COATED) 81 mg EC tablet Take 81 mg by mouth once daily. - metoprolol tartrate, short acting, (LOPRESSOR) 25 mg tablet Take 25 mg by mouth twice daily. - allopurinol (ZYLOPRIM) 300 mg tablet Take 300 mg by mouth once daily. - dicyclomine (BENTYL) 20 mg tablet Take 20 mg by mouth once daily. - losartan (COZAAR) 100 mg tablet Take 100 mg by mouth once daily. - MULTIVITAMIN ORAL Take by mouth once daily. - folic acid-Vit B6-Vit B12 (FOLTX) 2.5-25-2 mg tab Take 1 tablet by mouth once daily. - nitroglycerin sublingual (NITROQUICK) 0.4 mg SL tablet Dissolve 0.4 mg under the tongue every 5 minutes as needed. - fluticasone (FLONASE) 50 mcg/actuation nasal spray Use 2 Sprays in each nostril once daily. - ALBUTEROL SULFATE (PROVENTIL INHALATION) Inhale as instructed. - dorzolamide (TRUSOPT) 2 % ophthalmic solution three times daily. - ondansetron orally disintegrating (ZOFRAN ODT) 4 mg disintegrating tablet Take 4 mg by mouth every 8 hours as needed. Problem List As Of Date 05/16/2022 Noted Resolved History of prostate cancer [Z85.46] 08/01/2015 Iron deficiency anemia, unspecified [D50.9] 02/12/2022 Benign prostatic hyperplasia with lower urinary*11/27/2021 Radiculopathy, cervical region [M54.12] 04/15/2022 Other hemorrhoids [K64.8] 02/12/2022 Calculus of kidney [N20.0] 02/18/2022 Chronic kidney disease, stage 4 (severe) (HCC) *12/20/2021 Chronic obstructive pulmonary disease (HCC) [J4*11/27/2021 Dementia in other diseases classified elsewhere*11/27/2021 Arteriosclerosis of coronary artery [I25.10] 02/12/2022 Diabetes mellitus (HCC) [E11.9] 11/01/2021 Gastroesophageal reflux disease with esophagiti*05/10/2022 Gout [M10.9] 05/10/2022 Essential (primary) hypertension [I10] 08/13/2017 History of primary malignant neoplasm of urinar*04/22/2022 Hypothyroidism unspecified [E03.9] 07/10/2021 Intracranial hemorrhage (HCC) [I62.9] 05/10/2022 PAF (paroxysmal atrial fibrillation) (HCC) [I48*03/18/2022 Sleep apnea [G47.30] 05/10/2022 History of DVT (deep vein thrombosis) [Z86.718] 05/10/2022 Encounter Status:Closed by DELICIA FULLER on 05/16/22 [facility] Telephone (KADIE) BEN GUADALUPE ([id number]) 1935 M Date Time Provider Department 05/16/22 MARIA LUISA GARCIA During your visit today, we recorded the following information about you: Maria Luisa Garcia RN 05/16/2022 10:18 AM Signed Attempt to call patient to review prep for surgery tomorrow, no answer, no voicemail available. Allergies As of Date: 05/16/2022 Noted Allergy Reaction TIZANIDINE 05/11/2019 1 - Mental Status Change 11 - Vomiting OXYCODONE-ACETAMINOPHEN 06/03/2016 11 - Vomiting Comments: Other reaction(s): vomiting Date Reviewed: 05/10/2022 Reviewed by: Afia Downing PA-C - Fully Assessed Reason for Visit: Grab Setter - Other [3602] Prescriptions as of 05/16/2022 - famotidine (PEPCID) 20 mg tablet Take 1 tablet by mouth daily at bedtime. 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 - tamsulosin (FLOMAX) 0.4 mg Take 0.4 mg by mouth once daily. - furosemide (LASIX) 40 mg tablet Take 40 mg by mouth once daily. - ferrous sulfate 325 mg (65 mg iron) EC tablet Take 325 mg by mouth daily with breakfast. - dilTIAZem CR (TIAZAC, TAZTIA XT) 180 mg 24 hr capsule Take 180 mg by mouth once daily. - magnesium oxide (MAG-OX) 400 mg (241.3 mg magnesium) tablet Take 400 mg by mouth once daily. - dapagliflozin (FARXIGA) 10 mg tablet Take by mouth daily with breakfast. - pregabalin (LYRICA) 50 mg capsule Take 50 mg by mouth three times daily. - atorvastatin (LIPITOR) 20 mg tablet Take 20 mg by mouth once daily. - baclofen (LIORESAL) 10 mg tablet Take 10 mg by mouth three times daily. - psyllium husk (METAMUCIL ORAL) Take by mouth. - donepezil (ARICEPT) 10 mg tablet Take 10 mg by mouth daily at bedtime. - CHOLECALCIFEROL, VITAMIN D3, (D3-2000 ORAL) Take by mouth once daily. - potassium chloride (K-ANDI, KLOR-CON) 20 mEq packet Take 20 mEq by mouth three times daily. - aspirin, enteric coated (ASPIRIN, ENTERIC COATED) 81 mg EC tablet Take 81 mg by mouth once daily. - metoprolol tartrate, short acting, (LOPRESSOR) 25 mg tablet Take 25 mg by mouth twice daily. - allopurinol (ZYLOPRIM) 300 mg tablet Take 300 mg by mouth once daily. - dicyclomine (BENTYL) 20 mg tablet Take 20 mg by mouth once daily. - losartan (COZAAR) 100 mg tablet Take 100 mg by mouth once daily. - MULTIVITAMIN ORAL Take by mouth once daily. - folic acid-Vit B6-Vit B12 (FOLTX) 2.5-25-2 mg tab Take 1 tablet by mouth once daily. - nitroglycerin sublingual (NITROQUICK) 0.4 mg SL tablet Dissolve 0.4 mg under the tongue every 5 minutes as needed. - fluticasone (FLONASE) 50 mcg/actuation nasal spray Use 2 Sprays in each nostril once daily. - ALBUTEROL SULFATE (PROVENTIL INHALATION) Inhale as instructed. - dorzolamide (TRUSOPT) 2 % ophthalmic solution three times daily. - ondansetron orally disintegrating (ZOFRAN ODT) 4 mg disintegrating tablet Take 4 mg by mouth every 8 hours as needed. Problem List As Of Date 05/16/2022 Noted Resolved History of prostate cancer [Z85.46] 08/01/2015 Iron deficiency anemia, unspecified [D50.9] 02/12/2022 Benign prostatic hyperplasia with lower urinary*11/27/2021 Radiculopathy, cervical region [M54.12] 04/15/2022 Other hemorrhoids [K64.8] 02/12/2022 Calculus of kidney [N20.0] 02/18/2022 Chronic kidney disease, stage 4 (severe) (HCC) *12/20/2021 Chronic obstructive pulmonary disease (HCC) [J4*11/27/2021 Dementia in other diseases classified elsewhere*11/27/2021 Arteriosclerosis of coronary artery [I25.10] 02/12/2022 Diabetes mellitus (HCC) [E11.9] 11/01/2021 Gastroesophageal reflux disease with esophagiti*05/10/2022 Gout [M10.9] 05/10/2022 Essential (primary) hypertension [I10] 08/13/2017 History of primary malignant neoplasm of urinar*04/22/2022 Hypothyroidism unspecified [E03.9] 07/10/2021 Intracranial hemorrhage (HCC) [I62.9] 05/10/2022 PAF (paroxysmal atrial fibrillation) (HCC) [I48*03/18/2022 Sleep apnea [G47.30] 05/10/2022 History of DVT (deep vein thrombosis) [Z86.718] 05/10/2022 Encounter Status:Closed by MARIA LUISA GARCIA on 05/16/22 Normal [facility] CBC panel Auto (Bld)on 05-10 Erythrocyte distribution width (RBC) [Ratio] 14.1 % Normal 11.5-15.0 [facility] Comment on above: Order Comment: Speci men Type: BLOOD SPECIMENOrdering Facility: [facility] Address: [address] [place] [address] Performed By: #### 5 8410-2 ####[facility] LABIA [id number] [address] [place] Hematocrit (Bld) [Volume fraction] 38.9 % Low 39.0-51.0 [facility] Comment on above: Order Comment: Speci men Type: BLOOD SPECIMENOrdering Facility: [facility] Address: [address] [place] [address] Performed By: #### 5 8410-2 ####[facility] LABIA [id number] [place] [address] [place] Hemoglobin (Bld) [Mass/Vol] 12.2 g/dL Low 13.0-17.0 [facility] Comment on above: Order Comment: Speci men Type: BLOOD SPECIMENOrdering Facility: [facility] Address: [address] [place] [address] Performed By: #### 5 8410-2 ####[facility] LABIA [id number] [place] [address] [place] MCH (RBC) [Entitic mass] 28.4 pg Normal 26.0-34.0 [facility] Comment on above: Order Comment: Speci men Type: BLOOD SPECIMENOrdering Facility: [facility] Address: [address] Performed By: #### 5 8410-2 ####[facility] [id number] [address] STATES [facility] MCHC (RBC) [Mass/Vol] 31.4 g/dL Normal 30.5-36.0 [facility] Comment on above: Order Comment: Speci men Type: BLOOD SPECIMENOrdering Facility: [facility] Address: [address] [place], [place] [address] Performed By: #### 5 8410-2 ####[facility] [id number] [place] [address] [place] MCV (RBC) [Entitic vol] 90.5 fL Normal 80.0-100.0 [facility] Comment on above: Order Comment: Speci men Type: BLOOD SPECIMENOrdering Facility: [facility] Address: [address] [place], [place] [address] Performed By: #### 5 8410-2 ####[facility] [id number] [place] [address] [place] Nucleated RBC (Bld) [#/Vol] 10*3/uL Normal <0.01 [facility] Comment on above: Order Comment: Speci men Type: BLOOD SPECIMENOrdering Facility: [facility] Address: [address] [place] [address] Performed By: #### 5 8410-2 ####[facility] [id number] [place] [address] [place] Platelet mean volume (Bld) [Entitic vol] 10.9 fL Normal 9.0-12.7 [facility] Comment on above: Order Comment: Speci men Type: BLOOD SPECIMENOrdering Facility: [facility] Address: [address] [place], [place] [address] Performed By: #### 5 8410-2 ####[facility] LABCLIA [id number] [place] [address] [place] Platelets (Bld) [#/Vol] 135 10*3/uL Low 150-400 [facility] Comment on above: Order Comment: Speci men Type: BLOOD SPECIMENOrdering Facility: [facility] Address: [address] [place] [address] Performed By: #### 5 8410-2 ####[facility] LABCLIA [id number] [place] [address] [place] RBC (Bld) [#/Vol] 4.30 10*6/uL Normal 4.20-6.00 [facility] Comment on above: Order Comment: Speci men Type: BLOOD SPECIMENOrdering Facility: [facility] Address: [address] [place] [address] Performed By: #### 5 8410-2 ####[facility] LABIA [id number] [place] [address] [place] WBC (Bld) [#/Vol] 4.75 10*3/uL Normal 3.70-11.00 [facility] Comment on above: Order Comment: Speci men Type: BLOOD SPECIMENOrdering Facility: [facility] Address: [address] [place] [address] Performed By: #### 5 8410-2 ####[facility] LABIA [id number] [place] [address] [place] CONFIRM BLOOD TYPEon 022 ABO A Normal [facility] Comment on above: Order Comment: Speci men Type: BLOOD SPECIMENOrdering Facility: [facility] Address: [address] [place] [address] Performed By: #### C ONABO ####CC [facility] BLOOD BANKIA [id number] [place] [address] [place] Rh Nom (Bld) Negative Normal [facility] Comment on above: Order Comment: Speci men Type: BLOOD SPECIMENOrdering Facility: [facility] Address: [address] [address] Performed By: #### C ONAB ####[facility] BANKIA [id number] [place] [address] [place] Comprehensive metabolic 2000 panelon 05-10-2022 Albumin [Mass/Vol] 4.4 g/dL Normal 3.9-4.9 [facility] Comment on above: Order Comment: Speci men Type: BLOOD SPECIMENOrdering Facility: [facility] Address: [address] [address] Performed By: #### 2 4323-8 ####[facility] LABCLIA [id number] [place] [address] [place] ALP [Catalytic activity/Vol] 54 U/L Normal 38-113 [facility] Comment on above: Order Comment: Speci men Type: BLOOD SPECIMENOrdering Facility: [facility] Address: [address] Performed By: #### 2 4323-8 ####[facility] LABCLIA [id number] [place] [address] [place] ALT [Catalytic activity/Vol] 55 U/L High 10-54 [facility] Comment on above: Order Comment: Speci men Type: BLOOD SPECIMENOrdering Facility: [facility] Address: [address] Performed By: #### 2 4323-8 ####[facility] LABCLIA [id number] [place] [address] [place] Anion gap [Moles/Vol] 12 mmol/L Normal 9-18 [facility] Comment on above: Order Comment: Speci men Type: BLOOD SPECIMENOrdering Facility: [facility] Address: [address] Performed By: #### 2 4323-8 ####[facility] LABCLIA [id number] [place] [address] [place] AST [Catalytic activity/Vol] 27 U/L Normal 14-40 [facility] Comment on above: Order Comment: Speci men Type: BLOOD SPECIMENOrdering Facility: [facility] Address: [address] [place] [address] Performed By: #### 2 4323-8 ####[facility] LABCLIA [id number] [place] [address] [place] Bilirubin [Mass/Vol] 0.3 mg/dL Normal 0.2-1.3 [facility] Comment on above: Order Comment: Speci men Type: BLOOD SPECIMENOrdering Facility: [facility] Address: [address] [place] [address] Performed By: #### 2 4323-8 ####[facility] LABCLIA [id number] [place] [address] [place] Calcium [Mass/Vol] 9.1 mg/dL Normal 8.5-10.2 [facility] Comment on above: Order Comment: Speci men Type: BLOOD SPECIMENOrdering Facility: [facility] Address: [address] [place] [address] Performed By: #### 2 4323-8 ####[facility] LABCLIA [id number] [place] [address] [place] Chloride [Moles/Vol] 100 mmol/L Normal 97-105 [facility] Comment on above: Order Comment: Speci men Type: BLOOD SPECIMENOrdering Facility: [facility] Address: [address] [place], [place] [address] Performed By: #### 2 4323-8 ####[facility] LABCLIA [id number] [place] [address] [place] CO2 [Moles/Vol] 29 mmol/L Normal 22-30 [facility] Comment on above: Order Comment: Speci men Type: BLOOD SPECIMENOrdering Facility: [facility] Address: [address] [address] Performed By: #### 2 4323-8 ####[facility] LABCLIA [id number] [place] [address] [place] Creatinine [Mass/Vol] 1.09 mg/dL Normal 0.73-1.22 [facility] Comment on above: Order Comment: Speci men Type: BLOOD SPECIMENOrdering Facility: [facility] Address: [address] [address] Performed By: #### 2 4323-8 ####[facility] LABIA [id number] [place] [address] [place] ESTIMATED GLOMERULAR FILTRATION RATE 67 mL/min/1.73m??? Normal >=60 [facility] Comment on above: Order Comment: Speci men Type: BLOOD SPECIMENOrdering Facility: [facility] Address: [address] [place] [address] Result Comment: [place] mated Glomerular Filtration Rate (eGFR) is calculated using the 2020 CKD-EPI creatinine equation. This equation utilizes serum creatinine, sex, and age as parameters. The creatinine assay has traceable calibration to isotope dilution-mass spectrometry. Refer to KDIGO guidelines for clinical interpretation. In patients with unstable renal function, e.g. those with acute kidney injury, the eGFR may not accurately reflect actual GFR. Performed By: #### 2 4323-8 ####[facility] LABCLIA [id number] [place] [address] [place] Glucose [Mass/Vol] 217 mg/dL High 74-99 [facility] Comment on above: Order Comment: Speci men Type: BLOOD SPECIMENOrdering Facility: [facility] Address: [address] [address] Result Comment: The [place] Diabetes [employer] (ADA) provides guidance for cutoff values for fasting glucose and random glucose. The ADA defines fasting as no caloric intake for at least 8 hours. Fasting plasma glucose results between 100 to 125 mg/dL indicate increased risk for diabetes (prediabetes). Fasting plasma glucose results greater than or equal to 126 mg/dL meet the criteria for diagnosis of diabetes. In the absence of unequivocal hyperglycemia, results should be confirmed by repeat testing. In a patient with classic symptoms of hyperglycemia or hyperglycemic crisis, random plasma glucose results greater than or equal to 200 mg/dL meet the criteria for diagnosis of diabetes. Reference: Standards of Medical Care in Diabetes 2016, [place] Diabetes Association. Diabetes Care. 2016.39(Suppl 1). Performed By: #### 2 4323-8 ####[facility] LABCLIA [id number] [place] [address] [place] Potassium [Moles/Vol] 3.2 mmol/L Low 3.7-5.1 [facility] Comment on above: Order Comment: Speci men Type: BLOOD SPECIMENOrdering Facility: [facility] Address: [address] [place] [address] Performed By: #### 2 4323-8 ####[facility] LABIA [id number] [place] [address] [place] Protein [Mass/Vol] 6.4 g/dL Normal 6.3-8.0 [facility] Comment on above: Order Comment: Theoi suha Type: BLOOD SPECIMENOrdering Facility: [facility] Address: [address] [address] Performed By: #### 2 4323-8 ####[facility] LABIA [id number] [place] [address] [place] Sodium [Moles/Vol] 141 mmol/L Normal 136-144 [facility] Comment on above: Order Comment: Speci men Type: BLOOD SPECIMENOrdering Facility: [facility] Address: [address] [address] Performed By: #### 2 4323-8 ####[facility] LABIA [id number] [place] [address] [place] Urea nitrogen [Mass/Vol] 26 mg/dL High 9-24 [facility] Comment on above: Order Comment: Speci men Type: BLOOD SPECIMENOrdering Facility: [facility] Address: [address] [phone] Performed By: #### 2 4323-8 ####[facility] LABCLIA [id number] DANIELRenee AVENUEDESK [id number] ECG COMPLETEon 05-10-2022 ECG COMPLETE Ventricular Rate : 7 6 BPM Atrial Rate : 76 BPM P-R Interval : 130 ms QRS Duration : 134 ms Q-T Interval : 442 ms QTC Calculation(Bazett) : 497 ms Calculated P [place] : 37 degrees Calculated R [place] : 64 degrees Calculated T [place] : -10 degrees NORMAL SINUS RHYTHM COMPLETE RIGHT BUNDLE BRANCH BLOCK INFERIOR T WAVE ABNORMALITY ABNORMAL ECG Confirmed by YENNI TANNER MD ([id number]) on 05/14/2022 7:11:13 PM NAME : BEN GUADALUPE PID : [id number] : 1935 Gender : Male Race : ORD : [id number] Procedure Date : May 10 2022 11:57:54 Edit Date : May 14 2022 19:11:14 Diagnosis: NORMAL SINUS RHYTHM COMPLETE RIGHT BUNDLE BRANCH BLOCK INFERIOR T WAVE ABNORMALITY ABNORMAL ECG Confirmed by YENNI TANNER MD ([id number]) on 05/14/2022 7:11:13 PM Test Reason : Location : 119 : A17 Overread By : YENNI TANNER MD Edited By : YENNI TANNER MD Referred By : TRISTIN WILCOX Acquired by : CHANELLE FRANKLIN [facility] HISTORY PHYSICALon HISTORY PHYSICAL HNO ID: [id number] Author: Afia Downing PA-C Service: ? Author Type: Physician Dimethylaniline Sulfator Operator Type: HANDP Filed: 05/13/2022 10:05 AM Note Text: HISTORY AND PHYSICAL EXAMINATION SERVICE DATE: May 09, 2022 SERVICE TIME: 1:37 PM PRIMARY CARE PHYSICIAN: Franky Veronica MD REASON FOR VISIT: Ben Guadalupe is a 86 year old male who is scheduled for EXAM UNDER ANESTHESIA RECTAL, HEMORRHOIDECTOMY EXTERNAL AND INTERNAL 2 OR MORE COLUMNS/GROUPS, COLONOSCOPY WITH BIOPSY at the request of Dr. Tristin Wilcox for consultation. My final recommendation will be communicated back to the requesting physician by way of shared medical record or letter. The patient has the following: ACTIVE PROBLEM LIST History of Prostate Cancer Iron Deficiency Anemia, Unspecified Benign Prostatic Hyperplasia With Lower Urinary Tract Symptoms Radiculopathy, Cervical Region Other Hemorrhoids Calculus of Kidney Chronic Kidney Disease, Stage 4 (Severe) (Hcc) Chronic Obstructive Pulmonary Disease (Hcc) Dementia in Other Diseases Classified Elsewhere, Unspecified Severity, Without Behavioral Disturbance, Psychotic Disturbance, Mood Disturbance, and Anxiety (Hcc) Arteriosclerosis of Coronary Artery Diabetes Mellitus (Hcc) Gastroesophageal Reflux Disease With Esophagitis Gout Essential (Primary) Hypertension History of Primary Malignant Neoplasm of Urinary Bladder Hypothyroidism Unspecified Intracranial Hemorrhage (Hcc) Paf (Paroxysmal Atrial Fibrillation) (Hcc) Sleep Apnea History of Dvt (Deep Vein Thrombosis) Subjective CHIEF COMPLAINT: Pre-op exam HPI: Ben Guadalupe is a 86 year old male who presents for pre-anesthesia consultation for upcoming procedure. Patient has a history of 4th degree hemorrhoids which have been present years but worse when started on AC a few months ago for new onset Afib. Patient needed a transfusion for the bleeding. Denies any fever, chills, nausea, vomiting, chest pain, abdominal pain, SOB. Above procedure is recommended to manage symptoms. Patient is scheduled for surgery on 05/17/2022. PAST MEDICAL HISTORY Diagnosis Date Arteriosclerosis of coronary artery 02/12/2022 Atrial fibrillation (HCC) Benign prostatic hyperplasia with lower urinary tract symptoms 11/27/2021 Calculus of kidney 02/18/2022 Chronic kidney disease, stage 4 (severe) (HCC) 12/20/2021 Chronic obstructive pulmonary disease (HCC) 11/27/2021 Deep vein thrombosis (DVT) (HCC) 1989 LLE- unprovoked Dementia in other diseases classified elsewhere, unspecified severity, without behavioral disturbance, psychotic disturbance, mood disturbance, and anxiety (HCC) 11/27/2021 Diabetes (HCC) Diabetes mellitus (HCC) 11/01/2021 Essential (primary) hypertension 08/13/2017 Gastroesophageal reflux disease with esophagitis 05/10/2022 History of DVT (deep vein thrombosis) 05/10/2022 History of primary malignant neoplasm of urinary bladder 04/22/2022 History of prostate cancer 08/01/2015 Hypothyroidism unspecified 07/10/2021 Intracranial hemorrhage (HCC) 05/10/2022 Neuropathy PAF (paroxysmal atrial fibrillation) (HCC) 03/18/2022 Parkinson's disease (HCC) PONV (postoperative nausea and vomiting) Radiculopathy, cervical region 04/15/2022 Sleep apnea PAST SURGICAL HISTORY Procedure Laterality Date ADDTL NECK SPINE FUSION ANES TRANSURETHRAL RESECTION OF BLADDER TUMOR BACK SURGERY HX fusion JOINT REPLACEMENT HX Left knee PAST SURGICAL HISTORY OF 1970 hemorrhoidectomy PAST SURGICAL HISTORY OF hernia repair groin PAST SURGICAL HISTORY OF hematoma evacuation PAST SURGICAL HISTORY OF brachytherapy REMOVAL OF KIDNEY STONE FAMILY HISTORY Problem Relation Age of Onset Anesthesia Problems No Family History SOCIAL HISTORY: Social History Tobacco Use Smoking status: Never Smokeless tobacco: Never Substance Use Topics Alcohol use: Yes Comment: Rarely Drug use: Never MEDICATIONS: Prior to Admission medications as of 05/10/22 1104 Medication Sig Last Dose Taking famotidine (PEPCID) 20 mg tablet Take 1 tablet by mouth daily at bedtime. 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 Taking Yes tamsulosin (FLOMAX) 0.4 mg Take 0.4 mg by mouth once daily. Taking Yes furosemide (LASIX) 40 mg tablet Take 40 mg by mouth once daily. Taking Yes ferrous sulfate 325 mg (65 mg iron) EC tablet Take 325 mg by mouth daily with breakfast. Taking Yes dilTIAZem CR (TIAZAC, TAZTIA XT) 180 mg 24 hr capsule Take 180 mg by mouth once daily. Taking Yes magnesium oxide (MAG-OX) 400 mg (241.3 mg magnesium) tablet Take 400 mg by mouth once daily. Taking Yes dapagliflozin (FARXIGA) 10 mg tablet Take by mouth daily with breakfast. Taking Yes pregabalin (LYRICA) 50 mg capsule Take (more content not included)... Normal [facility] HbA1c (Bld)on 05-10-2022 Average glucose Estimated from glycated hemoglobin (Bld) [Mass/Vol] 151 mg/dL Normal [facility] Comment on above: Order Comment: Speci men Type: BLOOD SPECIMENOrdering Facility: [facility] Address: [address] [place] [phone] Result Comment: eAG: (Estimated average glucose) is a calculated value from HgbA1c and is cash applications representative of the average blood glucose level in the last 2-3 month period. Performed By: #### 5 5454-3 ####[facility] LABCLIA [id number] [address] [place] [facility] HbA1c (Bld) [Mass fraction] 6.9 % High 4.3-5.6 [facility] Comment on above: Order Comment: Speci men Type: BLOOD SPECIMENOrdering Facility: [facility] Address: [address] [place] [address] Result Comment: [place] Diabetes Association guidelines indicate that patients with HgbA1c in the range 5.7-6.4% are at increased risk for development of diabetes, and intervention by lifestyle modification may be beneficial. HgbA1c greater or equal to 6.5% is considered diagnostic of diabetes. Performed By: #### 5 5454-3 ####[facility] LABCLIA [id number] [address] OF [facility] TYPE AND SCREEN,30 DAYon ABO A Normal [facility] Comment on above: Order Comment: Speci men Type: BLOOD SPECIMENOrdering Facility: [facility] Address: [address] [place] [address] Performed By: #### T SCR30 ####[facility] BLOOD BANKCLIA [id number] [place] [address] [place] HISTORICAL AB SCR STATUS Negative Normal [facility] Comment on above: Order Comment: Speci men Type: BLOOD SPECIMENOrdering Facility: [facility] Address: [address] [place] [address] Performed By: #### T SCR30 ####[facility] BLOOD BANKCLIA [id number] [address] [place] Rh Nom (Bld) Negative Normal [facility] Comment on above: Order Comment: Speci men Type: BLOOD SPECIMENOrdering Facility: [facility] Address: [address] [place], [place] [address] [phone] Performed By: #### T SCR30 ####CC [facility] BLOOD BANKROXANA [id number] [id number] [id number] [facility] Oralia 04-25-2022 CNPN Telephone (CORSMN) BEN GUADALUPE ([id number]) 1935 M Date Time Provider Department 04/25/22 MARIKA ZUÑIGA During your visit today, we recorded the following information about you: Marika Zuñiga RN 04/25/2022 2:11 PM Signed SPECIALTY CARE COORDINATION FOLLOW-UP NOTE Call back placed to pt aureliano. 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 - ferrous sulfate 325 mg (65 mg iron) EC tablet Take 325 mg by mouth daily with breakfast. - dilTIAZem CR (TIAZAC, TAZTIA XT) 180 mg 24 hr capsule Take 180 mg by mouth once daily. - magnesium oxide (MAG-OX) 400 mg (241.3 mg magnesium) tablet Take 400 mg by mouth once daily. - dapagliflozin (FARXIGA) 10 mg tablet Take by mouth daily with breakfast. - pregabalin (LYRICA) 50 mg capsule Take 50 mg by mouth three times daily. - atorvastatin (LIPITOR) 20 mg tablet Take 20 mg by mouth once daily. - baclofen (LIORESAL) 10 mg tablet Take 10 mg by mouth three times daily. - psyllium husk (METAMUCIL ORAL) Take by mouth. - donepezil (ARICEPT) 10 mg tablet Take 10 mg by mouth daily at bedtime. - CHOLECALCIFEROL, VITAMIN D3, (D3-2000 ORAL) Take by mouth once daily. - potassium chloride (K-ANDI, KLOR-CON) 20 mEq packet Take 20 mEq by mouth three times daily. - aspirin, enteric coated (ASPIRIN, ENTERIC COATED) 81 mg EC tablet Take 81 mg by mouth once daily. - citalopram (CELEXA) 40 mg tablet Take 40 mg by mouth once daily. - metoprolol tartrate, short acting, (LOPRESSOR) 50 mg tablet Take 25 mg by mouth twice daily. - amLODIPine (NORVASC) 5 mg tablet Take 5 mg by mouth once daily. - allopurinol (ZYLOPRIM) 300 mg tablet Take 300 mg by mouth once daily. - omeprazole (PRILOSEC) 20 mg capsule Take 20 mg by mouth once daily. - dicyclomine (BENTYL) 20 mg tablet Take 20 mg by mouth once daily. - losartan (COZAAR) 100 mg tablet Take 100 mg by mouth once daily. - MULTIVITAMIN ORAL Take by mouth once daily. - folic acid-Vit B6-Vit B12 (FOLTX) 2.5-25-2 mg tab Take 1 tablet by mouth once daily. - methocarbamol (ROBAXIN) 750 mg tablet Take 750 mg by mouth four times daily as needed. - nitroglycerin sublingual (NITROQUICK) 0.4 mg SL tablet Dissolve 0.4 mg under the tongue every 5 minutes as needed. - fluticasone (FLONASE) 50 mcg/actuation nasal spray Use 2 Sprays in each nostril once daily. - ALBUTEROL SULFATE (PROVENTIL INHALATION) Inhale as instructed. - dorzolamide (TRUSOPT) 2 % ophthalmic solution three times daily. - acetaminophen-codeine (TYLENOL-COD #3) 300-30 mg per tab Take 1 tablet by mouth every 4 hours as needed. - ondansetron orally disintegrating (ZOFRAN ODT) 4 mg disintegrating tablet Take 4 mg by mouth every 8 hours as needed. - carbidopa-levodopa CR (SINEMET CR 25-100) 25-100 mg per tablet Take 1 tablet by mouth three times daily. Problem List As Of Date 04/25/2022 Noted Resolved History of prostate cancer [Z85.46] 08/01/2015 Encounter Status:Closed by CRUISEMARIKA [facility] 04/25/22 [facility] ([id number]) 1935 M Date Time Provider Department 04/25/22 TRISTIN RUIZ During your visit today, we recorded the following information about you: Delicia Fuller 04/25/2022 10:03 AM Signed The Patient's granddaughter ( Milly Guadalupe) is calling to confirm surgery date, get all testing scheduled for her grandfather. Please call her at : [phone] at 11:30 AM or later, as she is at an appointment now. Thank you. Allergies As of Date: 04/25/2022 Noted Allergy Reaction TIZANIDINE 05/11/2019 1 - Mental Status Change 11 - Vomiting OXYCODONE-ACETAMINOPHEN 06/03/2016 11 - Vomiting Comments: Other reaction(s): vomiting Date Reviewed: 04/17/2022 Reviewed by: Tori Enriquez RN - Fully Assessed Reason for Visit: Appointment [186] Prescriptions as of 04/25/2022 - furosemide (LASIX) 40 mg tablet Take 40 mg by mouth once daily. - ferrous sulfate 325 mg (65 mg iron) EC tablet Take 325 mg by mouth daily with breakfast. - dilTIAZem CR (TIAZAC, TAZTIA XT) 180 mg 24 hr capsule Take 180 mg by mouth once daily. - magnesium oxide (MAG-OX) 400 mg (241.3 mg magnesium) tablet Take 400 mg by mouth once daily. - dapagliflozin (FARXIGA) 10 mg tablet Take by mouth daily with breakfast. - pregabalin (LYRICA) 50 mg capsule Take 50 mg by mouth three times daily. - atorvastatin (LIPITOR) 20 mg tablet Take 20 mg by mouth once daily. - baclofen (LIORESAL) 10 mg tablet Take 10 mg by mouth three times daily. - psyllium husk (METAMUCIL ORAL) Take by mouth. - donepezil (ARICEPT) 10 mg tablet Take 10 mg by mouth daily at bedtime. - CHOLECALCIFEROL, VITAMIN D3, (D3-2000 ORAL) Take by mouth once daily. - potassium chloride (K-ANDI, KLOR-CON) 20 mEq packet Take 20 mEq by mouth three times daily. - aspirin, enteric coated (ASPIRIN, ENTERIC COATED) 81 mg EC tablet Take 81 mg by mouth once daily. - citalopram (CELEXA) 40 mg tablet Take 40 mg by mouth once daily. - metoprolol tartrate, short acting, (LOPRESSOR) 50 mg tablet Take 25 mg by mouth twice daily. - amLODIPine (NORVASC) 5 mg tablet Take 5 mg by mouth once daily. - allopurinol (ZYLOPRIM) 300 mg tablet Take 300 mg by mouth once daily. - omeprazole (PRILOSEC) 20 mg capsule Take 20 mg by mouth once daily. - dicyclomine (BENTYL) 20 mg tablet Take 20 mg by mouth once daily. - losartan (COZAAR) 100 mg tablet Take 100 mg by mouth once daily. - MULTIVITAMIN ORAL Take by mouth once daily. - folic acid-Vit B6-Vit B12 (FOLTX) 2.5-25-2 mg tab Take 1 tablet by mouth once daily. - methocarbamol (ROBAXIN) 750 mg tablet Take 750 mg by mouth four times daily as needed. - nitroglycerin sublingual (NITROQUICK) 0.4 mg SL tablet Dissolve 0.4 mg under the tongue every 5 minutes as needed. - fluticasone (FLONASE) 50 mcg/actuation nasal spray Use 2 Sprays in each nostril once daily. - ALBUTEROL SULFATE (PROVENTIL INHALATION) Inhale as instructed. - dorzolamide (TRUSOPT) 2 % ophthalmic solution three times daily. - acetaminophen-codeine (TYLENOL-COD #3) 300-30 mg per tab Take 1 tablet by mouth every 4 hours as needed. - ondansetron orally disintegrating (ZOFRAN ODT) 4 mg disintegrating tablet Take 4 mg by mouth every 8 hours as needed. - carbidopa-levodopa CR (SINEMET CR 25-100) 25-100 mg per tablet Take 1 tablet by mouth three times daily. Problem List As Of Date 04/25/2022 Noted Resolved History of prostate cancer [Z85.46] 08/01/2015 Encounter Status:Closed by DELICIA FULLER on 04/25/22 [facility] Oralia 04-24-2022 CADY Telephone (FOXAdYapperBro) BEN GUADALUPE ([id number]) 1935 M Date Time Provider Department 04/24/22 MARIKA ZUÑIGA During your visit today, we recorded the following information about you: Marika Zuñiga RN 04/24/2022 2:02 PM Signed SPECIALTY CARE COORDINATION FOLLOW-UP NOTE Message left Pt to call in to discuss setting up surgery Offered 05/17/22 surgical date Any pre-operative business date within 30 days of surgical date Call back number left Signature Marika Zuñiga RN April 24, 2022 Allergies As of Date: 04/24/2022 Noted Allergy Reaction TIZANIDINE 05/11/2019 1 - Mental Status Change 11 - Vomiting OXYCODONE-ACETAMINOPHEN 06/03/2016 11 - Vomiting Comments: Other reaction(s): vomiting Date Reviewed: 04/17/2022 Reviewed by: Tori Enriquez RN - Fully Assessed 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 - ferrous sulfate 325 mg (65 mg iron) EC tablet Take 325 mg by mouth daily with breakfast. - dilTIAZem CR (TIAZAC, TAZTIA XT) 180 mg 24 hr capsule Take 180 mg by mouth once daily. - magnesium oxide (MAG-OX) 400 mg (241.3 mg magnesium) tablet Take 400 mg by mouth once daily. - dapagliflozin (FARXIGA) 10 mg tablet Take by mouth daily with breakfast. - pregabalin (LYRICA) 50 mg capsule Take 50 mg by mouth three times daily. - atorvastatin (LIPITOR) 20 mg tablet Take 20 mg by mouth once daily. - baclofen (LIORESAL) 10 mg tablet Take 10 mg by mouth three times daily. - psyllium husk (METAMUCIL ORAL) Take by mouth. - donepezil (ARICEPT) 10 mg tablet Take 10 mg by mouth daily at bedtime. - CHOLECALCIFEROL, VITAMIN D3, (D3-2000 ORAL) Take by mouth once daily. - potassium chloride (K-ANDI, KLOR-CON) 20 mEq packet Take 20 mEq by mouth three times daily. - aspirin, enteric coated (ASPIRIN, ENTERIC COATED) 81 mg EC tablet Take 81 mg by mouth once daily. - citalopram (CELEXA) 40 mg tablet Take 40 mg by mouth once daily. - metoprolol tartrate, short acting, (LOPRESSOR) 50 mg tablet Take 25 mg by mouth twice daily. - amLODIPine (NORVASC) 5 mg tablet Take 5 mg by mouth once daily. - allopurinol (ZYLOPRIM) 300 mg tablet Take 300 mg by mouth once daily. - omeprazole (PRILOSEC) 20 mg capsule Take 20 mg by mouth once daily. - dicyclomine (BENTYL) 20 mg tablet Take 20 mg by mouth once daily. - losartan (COZAAR) 100 mg tablet Take 100 mg by mouth once daily. - MULTIVITAMIN ORAL Take by mouth once daily. - folic acid-Vit B6-Vit B12 (FOLTX) 2.5-25-2 mg tab Take 1 tablet by mouth once daily. - methocarbamol (ROBAXIN) 750 mg tablet Take 750 mg by mouth four times daily as needed. - nitroglycerin sublingual (NITROQUICK) 0.4 mg SL tablet Dissolve 0.4 mg under the tongue every 5 minutes as needed. - fluticasone (FLONASE) 50 mcg/actuation nasal spray Use 2 Sprays in each nostril once daily. - ALBUTEROL SULFATE (PROVENTIL INHALATION) Inhale as instructed. - dorzolamide (TRUSOPT) 2 % ophthalmic solution three times daily. - acetaminophen-codeine (TYLENOL-COD #3) 300-30 mg per tab Take 1 tablet by mouth every 4 hours as needed. - ondansetron orally disintegrating (ZOFRAN ODT) 4 mg disintegrating tablet Take 4 mg by mouth every 8 hours as needed. - carbidopa-levodopa CR (SINEMET CR 25-100) 25-100 mg per tablet Take 1 tablet by mouth three times daily. Problem List As Of Date 04/24/2022 Noted Resolved History of prostate cancer [Z85.46] 08/01/2015 Encounter Status:Closed by MARIKA ZUÑIGA on 04/24/22 [facility] CNOVon 04-17-2022 CNOV Office Visit (KADIE ) BEN GUADALUPE ([id number]) 1935 M Date Time Provider Department 04/17/22 1:00 PM TRISTIN WILCOX During your visit today, we recorded the following information about you: Temperature Pulse Respiration Blood pressure 98.4 degrees 70/minute 16/minute 127/74 Weight Height 86.2 kg 1.778 m Tristin Wilcox MD, PhD 04/17/2022 5:14 PM Signed COLORECTAL SURGERY New Patient Visit April 17, 2022 Chief Complaint: Hemorrhoids History of Present Illness: Ben Guadalupe is a 86 year old year old male with h/o hemorrhoids for 30 years. A few months ago he had afib, started blood thinners and had a lot of bleeding, needing transfusion. Stopped the blood thinners since.Taking aspirin. H/o excision thrombosed hemorrhoid in the 70s. Last colonoscopy on September 21. From chart review: Colonoscopy completed 09/21/[address] Long revealed tubular adenoma and hyperplastic polyp removed from cecum, 4 tubular adenomas removed from ascending colon, tubular adenoma removed from transverse colon, diverticulosis, hemorrhoids - Dr. Long recommended for patient to have no repeat colonoscopies. Patient was previously evaluated 08/21/2021 and had previous EGD 07/30/2021 that revealed tight schatzki's ring-disrupted with cold forceps, mild gastric erosions, small hiatal hernia, duodenal polyp that pathology revealed regenerative changes, negative for abscess, negative for granuloma, negative for atrophy, negative for dysplasia, stomach biopsy revealed gastric mucosa with mild reactive gastropathy, negative for intestinal metaplasia, negative for H. pylori. Patient currently following Dr. Vergara from urology for history of prostate cancer. Patient had reported dysphagia that improved following EGD and was ordered to have modified barium swallow and x-ray of esophagus completed?not done. PAST MEDICAL HISTORY Diagnosis Date Diabetes (HCC) Neuropathy Parkinson's disease (HCC) Sleep apnea PAST SURGICAL HISTORY Procedure Laterality Date PAST SURGICAL HISTORY OF 1970 hemorrhoidectomy PAST SURGICAL HISTORY OF hernia repair groin Current Outpatient Medications Medication Sig Dispense Refill ferrous sulfate 325 mg (65 mg iron) EC tablet Take 325 mg by mouth daily with breakfast. dilTIAZem CR (TIAZAC, TAZTIA XT) 180 mg 24 hr capsule Take 180 mg by mouth once daily. magnesium oxide (MAG-OX) 400 mg (241.3 mg magnesium) tablet Take 400 mg by mouth once daily. dapagliflozin (FARXIGA) 10 mg tablet Take by mouth daily with breakfast. pregabalin (LYRICA) 50 mg capsule Take 50 mg by mouth three times daily. atorvastatin (LIPITOR) 20 mg tablet Take 20 mg by mouth once daily. baclofen (LIORESAL) 10 mg tablet Take 10 mg by mouth three times daily. psyllium husk (METAMUCIL ORAL) Take by mouth. donepezil (ARICEPT) 10 mg tablet Take 10 mg by mouth daily at bedtime. CHOLECALCIFEROL, VITAMIN D3, (D3-2000 ORAL) Take by mouth once daily. potassium chloride (K-ANDI, KLOR-CON) 20 mEq packet Take 20 mEq by mouth three times daily. aspirin, enteric coated (ASPIRIN, ENTERIC COATED) 81 mg EC tablet Take 81 mg by mouth once daily. metoprolol tartrate, short acting, (LOPRESSOR) 50 mg tablet Take 25 mg by mouth twice daily. allopurinol (ZYLOPRIM) 300 mg tablet Take 300 mg by mouth once daily. losartan (COZAAR) 100 mg tablet Take 100 mg by mouth once daily. MULTIVITAMIN ORAL Take by mouth once daily. folic acid-Vit B6-Vit B12 (FOLTX) 2.5-25-2 mg tab Take 1 tablet by mouth once daily. nitroglycerin sublingual (NITROQUICK) 0.4 mg SL tablet Dissolve 0.4 mg under the tongue every 5 minutes as needed. fluticasone (FLONASE) 50 mcg/actuation nasal spray Use 2 Sprays in each nostril once daily. ALBUTEROL SULFATE (PROVENTIL INHALATION) Inhale as instructed. dorzolamide (TRUSOPT) 2 % ophthalmic solution three times daily. ondansetron orally disintegrating (ZOFRAN ODT) 4 mg disintegrating tablet Take 4 mg by mouth every 8 hours as needed. furosemide (LASIX) 40 mg tablet Take 40 mg by mouth once daily. citalopram (CELEXA) 40 mg tablet Take 40 mg by mouth once daily. (Patient not taking: Reported on 04/17/2022) amLODIPine (NORVASC) 5 mg tablet Take 5 mg by mouth once daily. (Patient not taking: Reported on 04/17/2022) omeprazole (PRILOSEC) 20 mg capsule Take 20 mg by mouth once daily. (Patient not taking: Reported on 04/17/2022) dicyclomine (BENTYL) 20 mg tablet Take 20 mg by mouth once daily. (Patient not taking: Reported on 04/17/2022) methocarbamol (ROBAXIN) 750 mg tablet Take 750 mg by mouth four times daily as needed. (Patient not taking: Reported on 04/17/2022) acetaminophen-codeine (TYLENOL-COD #3) 300-30 mg per tab Take 1 tablet by mouth every 4 hours as needed. (Patient not taking: Reported on 04/17/2022) carbidopa-levodopa CR (SINEMET CR 25-100) 25-100 mg pe (more content not included)... Normal [facility] Flexible Sigmoidoscopyon Flexible sigmoidoscopy A30 Gastrointestinal Endoscopy Patient Name: Ben Guadaulpe Procedure Date: 04/17/2022 1:38 PM Date of : 1935 Admit Type: Outpatient Age: 86 Gender: Male Note Status: Finalized Attending MD: Tristin Wilcox MD Procedure: Flexible Sigmoidoscopy Indications: Hematochezia Providers: Tristin Wilcox MD Patient Profile: Refer to note in patient chart for documentation of history and physical. Last Colonoscopy: several years ago. Referring Physician: Medicines: None Complications: No immediate complications. Requesting Provider: Procedure: Pre-Anesthesia Assessment: - Prior to the procedure, a History and Physical was performed, and patient medications, allergies and sensitivities were reviewed. The patient's tolerance of previous anesthesia was reviewed. - The risks and benefits of the procedure and the sedation options and risks were discussed with the patient. All questions were answered and informed consent was obtained. - ASA Grade Assessment: III - A patient with severe systemic disease. After obtaining informed consent, the scope was passed under direct vision. The Flexible sigmoidoscope was introduced through the anus and advanced to the descending colon. The flexible sigmoidoscopy was accomplished without difficulty. The patient tolerated the procedure well. The quality of the bowel preparation was good. Moderate Sedation: none No sedation was administered for this procedure. Findings: A few small-mouthed diverticula were found in the sigmoid colon. A 10 mm polyp was found in the rectum. The polyp was pedunculated. External and internal hemorrhoids were found during digital exam. The hemorrhoids were Grade IV (internal hemorrhoids that prolapse and cannot be reduced manually). Impression: - Diverticulosis in the sigmoid colon. - One 10 mm polyp in the rectum. - External and internal hemorrhoids. - No specimens collected. Estimated Blood Loss: Estimated blood loss: none. Recommendation: - Discharge patient to home. - Resume previous diet. Procedure Code(s): --- Professional --- 31184, Sigmoidoscopy, flexible; diagnostic, including collection of specimen(s) by brushing or washing, when performed (separate procedure) Diagnosis Code(s): --- Professional --- K64.3, Fourth degree hemorrhoids K62.1, Rectal polyp K92.1, Melena (includes Hematochezia) K57.30, Diverticulosis of large intestine without perforation or abscess without bleeding CPT copyright 2019 [employer]. All rights reserved. The codes documented in this report are preliminary and upon label coder review may be revised to meet current compliance requirements. Attending Participation: I personally performed the entire procedure. Scope In: Scope Out: Dr. Tristin Wilcox MD 04/17/2022 2:21:53 PM This report has been signed electronically. Number of Addenda: 0 Note Initiated On: 04/17/2022 1:38 PM Normal [facility] HISTORY PHYSICALon 2 HISTORY PHYSICAL HNO ID: [id number] Author: Tristin Wilcox MD, PhD Service: ? Author Type: Physician Type: HANDP Filed: 04/17/2022 5:14 PM Note Text: COLORECTAL SURGERY New Patient Visit April 17, 2022 Chief Complaint: Hemorrhoids History of Present Illness: Ben Guadalupe is a 86 year old year old male with h/o hemorrhoids for 30 years. A few months ago he had afib, started blood thinners and had a lot of bleeding, needing transfusion. Stopped the blood thinners since.Taking aspirin. H/o excision thrombosed hemorrhoid in the 70s. Last colonoscopy on September 21. From chart review: Colonoscopy completed 09/21/[address] Long revealed tubular adenoma and hyperplastic polyp removed from cecum, 4 tubular adenomas removed from ascending colon, tubular adenoma removed from transverse colon, diverticulosis, hemorrhoids - Dr. Long recommended for patient to have no repeat colonoscopies. Patient was previously evaluated 08/21/2021 and had previous EGD 07/30/2021 that revealed tight schatzki's ring-disrupted with cold forceps, mild gastric erosions, small hiatal hernia, duodenal polyp that pathology revealed regenerative changes, negative for abscess, negative for granuloma, negative for atrophy, negative for dysplasia, stomach biopsy revealed gastric mucosa with mild reactive gastropathy, negative for intestinal metaplasia, negative for H. pylori. Patient currently following Dr. Vergara from urology for history of prostate cancer. Patient had reported dysphagia that improved following EGD and was ordered to have modified barium swallow and x-ray of esophagus completed?not done. PAST MEDICAL HISTORY Diagnosis Date Diabetes (HCC) Neuropathy Parkinson's disease (HCC) Sleep apnea PAST SURGICAL HISTORY Procedure Laterality Date PAST SURGICAL HISTORY OF 1970 hemorrhoidectomy PAST SURGICAL HISTORY OF hernia repair groin Current Outpatient Medications Medication Sig Dispense Refill ferrous sulfate 325 mg (65 mg iron) EC tablet Take 325 mg by mouth daily with breakfast. dilTIAZem CR (TIAZAC, TAZTIA XT) 180 mg 24 hr capsule Take 180 mg by mouth once daily. magnesium oxide (MAG-OX) 400 mg (241.3 mg magnesium) tablet Take 400 mg by mouth once daily. dapagliflozin (FARXIGA) 10 mg tablet Take by mouth daily with breakfast. pregabalin (LYRICA) 50 mg capsule Take 50 mg by mouth three times daily. atorvastatin (LIPITOR) 20 mg tablet Take 20 mg by mouth once daily. baclofen (LIORESAL) 10 mg tablet Take 10 mg by mouth three times daily. psyllium husk (METAMUCIL ORAL) Take by mouth. donepezil (ARICEPT) 10 mg tablet Take 10 mg by mouth daily at bedtime. CHOLECALCIFEROL, VITAMIN D3, (D3-2000 ORAL) Take by mouth once daily. potassium chloride (K-ANDI, KLOR-CON) 20 mEq packet Take 20 mEq by mouth three times daily. aspirin, enteric coated (ASPIRIN, ENTERIC COATED) 81 mg EC tablet Take 81 mg by mouth once daily. metoprolol tartrate, short acting, (LOPRESSOR) 50 mg tablet Take 25 mg by mouth twice daily. allopurinol (ZYLOPRIM) 300 mg tablet Take 300 mg by mouth once daily. losartan (COZAAR) 100 mg tablet Take 100 mg by mouth once daily. MULTIVITAMIN ORAL Take by mouth once daily. folic acid-Vit B6-Vit B12 (FOLTX) 2.5-25-2 mg tab Take 1 tablet by mouth once daily. nitroglycerin sublingual (NITROQUICK) 0.4 mg SL tablet Dissolve 0.4 mg under the tongue every 5 minutes as needed. fluticasone (FLONASE) 50 mcg/actuation nasal spray Use 2 Sprays in each nostril once daily. ALBUTEROL SULFATE (PROVENTIL INHALATION) Inhale as instructed. dorzolamide (TRUSOPT) 2 % ophthalmic solution three times daily. ondansetron orally disintegrating (ZOFRAN ODT) 4 mg disintegrating tablet Take 4 mg by mouth every 8 hours as needed. furosemide (LASIX) 40 mg tablet Take 40 mg by mouth once daily. citalopram (CELEXA) 40 mg tablet Take 40 mg by mouth once daily. (Patient not taking: Reported on 04/17/2022) amLODIPine (NORVASC) 5 mg tablet Take 5 mg by mouth once daily. (Patient not taking: Reported on 04/17/2022) omeprazole (PRILOSEC) 20 mg capsule Take 20 mg by mouth once daily. (Patient not taking: Reported on 04/17/2022) dicyclomine (BENTYL) 20 mg tablet Take 20 mg by mouth once daily. (Patient not taking: Reported on 04/17/2022) methocarbamol (ROBAXIN) 750 mg tablet Take 750 mg by mouth four times daily as needed. (Patient not taking: Reported on 04/17/2022) acetaminophen-codeine (TYLENOL-COD #3) 300-30 mg per tab Take 1 tablet by mouth every 4 hours as needed. (Patient not taking: Reported on 04/17/2022) carbidopa-levodopa CR (SINEMET CR 25-100) 25-100 mg per tablet Take 1 tablet by mouth three times daily. (Patient not taking: Reported on 04/17/2022) No current facility-administered medications for this visit. ALLERGIES Allergen Reactions Tizanidine Mental Status Change, Vomiting Oxycodone-Acetamino* Vomiting Other reaction(s): vomiting Review of Systems / PACC s (more content not included)... Normal [facility] SIGMOIDOSCOPYon 04-17-2022 [facility] POINT OF CARE GLUCOSEon 04-06 Glucose [Mass/Vol] 268 mg/dL Critically high 74-106 [facility] Comment on above: Performed By: #### P OCGLUC #### [facility] [address] [address] [address] Mason Astudillo CBC AUTO DIFFon 04-11-2022 BASO # 0.0 103/ul Normal 0.0-0.1 [facility] Comment on above: Performed By: #### U A #### [facility] [address] [address] [address] Mason Astudillo Basophils/100 WBC (Bld) 0.4 % Normal 0.2-2.0 [facility] Comment on above: Performed By: #### U A #### [facility] [address] [place] [address] Dr. Mason Astudillo EO # 0.1 103/ul Normal 0.0-0.7 [facility] Comment on above: Performed By: #### U A #### [facility] [address] [place] [address] Dr. Mason Astudillo Eosinophils/100 WBC (Bld) 1.9 % Normal 0.9-7.0 [facility] Comment on above: Performed By: #### U A #### [facility] [address] [place] [address] Dr. Mason Astudillo Erythrocyte distribution width (RBC) [Ratio] 16.0 % Critically high 11.0-15.0 [facility] Comment on above: Performed By: #### U A #### [facility] [address] [place] [address] Dr. Mason Astudillo Hematocrit (Bld) [Volume fraction] 27.4 % Critically low 42.0-54.0 [facility] Comment on above: Performed By: #### U A #### [facility] [address] [place] [address] Dr. Mason Astudillo Hemoglobin (Bld) [Mass/Vol] 8.7 g/dL Critically low 14.0-18.0 [facility] Comment on above: Performed By: #### U A #### [facility] [address] [place] [address] Dr. Mason Astudillo IG # 0.03 10e3/ul Normal 0.00-0.03 [facility] Comment on above: Performed By: #### U A #### [facility] [address] [place] [address] Dr. Mason Astudillo IG % 0.6 % Critically high 0.0-0.5 [facility] Comment on above: Performed By: #### U A #### [facility] [address] [place] [address] Dr. Mason Astudillo LYMPH # 0.7 103/ul Critically low 1.2-3.8 [facility] Comment on above: Performed By: #### U A #### [facility] [address] [place] [address] Dr. Mason Astudillo Lymphocytes/100 WBC (Bld) 15.8 % Critically low 20.5-60.0 [facility] Comment on above: Performed By: #### U A #### [facility] [address] [place] [address] Dr. Mason Astudillo MANUAL DIFF REQ NO Normal [facility] Comment on above: Performed By: #### U A #### [facility] [address] [place] [address] Dr. Mason Astudillo MCH (RBC) [Entitic mass] 29.9 pg Normal 25.9-34.0 [facility] Comment on above: Performed By: #### U A #### [facility] [address] [place] [address] Dr. Mason Astudillo MCHC (RBC) [Mass/Vol] 31.8 g/dL Normal 29.9-35.2 [facility] Comment on above: Performed By: #### U A #### [facility] [address] [place] [address] Dr. Mason Astudillo MCV (RBC) [Entitic vol] 94.2 fL Critically high 80.0-94.0 [facility] Comment on above: Performed By: #### U A #### [facility] [address] [place] [address] Dr. Mason Astudillo MONO # 0.3 103/ul Normal 0.3-0.8 [facility] Comment on above: Performed By: #### U A #### [facility] [address] [place] [address] Dr. Mason Astudillo Monocytes/100 WBC (Bld) 6.9 % Normal 1.7-12.0 [facility] Comment on above: Performed By: #### U A #### [facility] [address] [place] [address] Dr. Mason Astudillo NEUT # 3.4 103/ul Normal 1.4-6.5 [facility] Comment on above: Performed By: #### U A #### [facility] [address] [place], [place] [id number] Dr. Mason Astudillo Neutrophils/100 WBC (Bld) 74.4 % Normal 43.0-75.0 [facility] Comment on above: Performed By: #### U A #### [facility] [address] [place] [address] Dr. Mason Astudillo Platelet mean volume (Bld) [Entitic vol] 10.6 fL Normal 9.5-13.5 [facility] Comment on above: Performed By: #### U A #### [facility] [address] [place] [address] Dr. Mason Astudillo PLT 117 103/ul Critically low 150-450 [facility] Comment on above: Performed By: #### U A #### [facility] [address] [place] [address] Dr. Mason Astudillo RBC 2.91 106/ul Critically low 4.70-6.10 [facility] Comment on above: Performed By: #### U A #### [facility] [address] [place] [address] Dr. Mason Astudillo WBC 4.6 103/ul Normal 4.0-11.0 [facility] Comment on above: Performed By: #### U A #### [facility] [address] [place] [address] Dr. Mason Astudillo CARDIAC STRESS TESTon 2021 CARDIAC STRESS TEST CARDIAC STRESS TEST Requesting Physician: Kavita Danielle M.D. and Shaikh Lexi M.D. Procedure Date:03/26/2022 EKG PORTION OF STRESS TEST: At baseline, patient was noted to have sinus rhythm with underlying right bundle branch block. This was a Lexiscan study. At rest, the blood pressure was 72 beats per minute with a blood pressure of 142/88 mm/Hg. Following infusion of Adenosine, patient was noted to have no evidence of AV block. Occasional PVCs were seen. Six minutes into infusion, no EKG changes of ischemia were noted. INTERPRETATION: EKG portion of the study was normal with no evidence of ischemia. Baseline PVCs were seen in isolation. Perfusion study to be dictated separately by Radiology. Normal [facility] NM STRESS/REST MULTIon 03-26 NM STRESS/REST MULTI Patient: BEN GUADALUPE Exam Date: 03/26/2022 : 1935 Gender:M Ordering : DR KAVITA DANIELLE M.D. Admission #: [id number] Family : Order #: [id number] CLICK HERE TO VIEW EXAM RADIOLOGY REPORT PROCEDURE: RADIONUCLIDE IMAGING STRESS/REST MULTI COMPARISON: None. INDICATIONS: Coronary atherosclerosis TECHNIQUE: Exam Description: Stress/Rest one day protocol gated SPECT Rest Imagin.7 mCi Tc-99m Cardiolite IV on 03/26/2022 Stress Imaging 31.2 mCi Tc-99m Cardiolite IV on 03/26/2022 Exercise Protocol: 0.4 mg Lexiscan given IV Heart Rate (bpm): Rest: 72 Max: 116 PMHR: 85 Blood Pressure: Rest: 142/88 Max: 154/84 Symptoms: Rest and peak stress ECG findings were normal and the exercise portion of the study was normal per attending physician Dr. Kauffman due to. For more details please see separate cardiac stress test report. FINDINGS: QUALITY OF STUDY: Excellent. PERFUSION DEFECT: None. LOCATION: N/A SIZE: N/A. SEVERITY: N/A. TYPE: N/A. WALL MOTION: Normal. LV SIZE: Normal. 75 mL. TID / TCD: None; 0.9 LVEF: Normal. Calculated EF 78%. SUMMARY: Myocardial perfusion imaging study is NORMAL. CONCLUSION: 1. Normal myocardial profusion scan 2. Normal exercise test Dictated by: Leeann Patel MD on 03/27/2022 at 08:13 Approved by: Leeann Patel MD on 03/27/2022 at 08:14 Normal [facility] Orders Onlyon 03-19-2022 Orders Only [id number] Ben Guadalupe 1935 M Date Provider Department Center 03/19/2022 ERIC MEJIAS [facility] Family History Problem Relation Age of Onset Heart failure Mother Prostate cancer Father Coronary artery disease Brother Prostate cancer Brother Family Status - Relation Status Age at Mother Father Brother Normal [facility] CBC AUTO DIFFon 03-18-2022 BASO # 0.0 103/ul Normal 0.0-0.1 [facility] Comment on above: Performed By: #### P OCGLUC #### [facility] [address] [address] [address] Mason Astudillo Basophils/100 WBC (Bld) 0.5 % Normal 0.2-2.0 [facility] Comment on above: Performed By: #### P OCGLUC #### [facility] [address] [address] [address] Mason Astudillo EO # 0.1 103/ul Normal 0.0-0.7 [facility] Comment on above: Performed By: #### P OCGLUC #### [facility] [address] [place] [address] Dr. Mason Astudillo Eosinophils/100 WBC (Bld) 2.3 % Normal 0.9-7.0 [facility] Comment on above: Performed By: #### P OCGLUC #### [facility] [address] [place] [address] Dr. Mason Astudillo Erythrocyte distribution width (RBC) [Ratio] 17.2 % Critically high 11.0-15.0 [facility] Comment on above: Performed By: #### P OCGLUC #### [facility] [address] [place] [address] Dr. Mason Astudillo Hematocrit (Bld) [Volume fraction] 43.9 % Normal 42.0-54.0 [facility] Comment on above: Performed By: #### P OCGLUC #### [facility] [address] [place] [address] Dr. Mason Astudillo Hemoglobin (Bld) [Mass/Vol] 14.1 g/dL Normal 14.0-18.0 [facility] Comment on above: Performed By: #### P OCGLUC #### [facility] [address] [place] [address] Dr. Mason Astudillo IG # 0.04 10e3/ul Critically high 0.00-0.03 [facility] Comment on above: Performed By: #### P OCGLUC #### [facility] [address] [place] [address] Dr. Mason Astudillo IG % 0.7 % Critically high 0.0-0.5 [facility] Comment on above: Performed By: #### P OCGLUC #### [facility] [address] [address] [address] Mason Astudillo LYMPH # 1.1 103/ul Critically low 1.2-3.8 [facility] Comment on above: Performed By: #### P OCGLUC #### [facility] [address] [address] [address] Mason Astudillo Lymphocytes/100 WBC (Bld) 18.3 % Critically low 20.5-60.0 [facility] Comment on above: Performed By: #### P OCGLUC #### [facility] [address] [place] [address] Dr. Mason Astudillo MANUAL DIFF REQ NO Normal [facility] Comment on above: Performed By: #### P OCGLUC #### [facility] [address] [place] [address] Dr. Mason Astudillo MCH (RBC) [Entitic mass] 29.3 pg Normal 25.9-34.0 [facility] Comment on above: Performed By: #### P OCGLUC #### [facility] [address] [place] [address] Dr. Mason Astudillo MCHC (RBC) [Mass/Vol] 32.1 g/dL Normal 29.9-35.2 [facility] Comment on above: Performed By: #### P OCGLUC #### [facility] [address] [place] [address] Dr. Mason Astudillo MCV (RBC) [Entitic vol] 91.1 fL Normal 80.0-94.0 [facility] Comment on above: Performed By: #### P OCGLUC #### [facility] [address] [place] [address] Dr. Mason Astudillo MONO # 0.5 103/ul Normal 0.3-0.8 [facility] Comment on above: Performed By: #### P OCGLUC #### [facility] [address] [place] [address] Dr. Mason Astudillo Monocytes/100 WBC (Bld) 7.7 % Normal 1.7-12.0 [facility] Comment on above: Performed By: #### P OCGLUC #### [facility] [address] [address] [address] Mason Astudillo NEUT # 4.3 103/ul Normal 1.4-6.5 [facility] Comment on above: Performed By: #### P OCGLUC #### [facility] [address] [address] [address] Mason Astudillo Neutrophils/100 WBC (Bld) 70.5 % Normal 43.0-75.0 [facility] Comment on above: Performed By: #### P OCGLUC #### [facility] [address] [address] [address] Mason Astudillo Platelet mean volume (Bld) [Entitic vol] 9.9 fL Normal 9.5-13.5 [facility] Comment on above: Performed By: #### P OCGLUC #### [facility] [address] [place] [address] Dr. Mason Astudillo PLT 130 103/ul Critically low 150-450 [facility] Comment on above: Performed By: #### P OCGLUC #### [facility] [address] [address] [address] Mason Astudillo RBC 4.82 106/ul Normal 4.70-6.10 [facility] [facility] Comment on above: Performed By: #### P OCGLUC #### [facility] [address] [address] [address] Mason Astudillo WBC 6.1 103/ul Normal 4.0-11.0 [facility] Comment on above: Performed By: #### P OCGLUC #### [facility] [address] [place] [address] Dr. Mason Astudillo Office Visiton 03-18-2022 Follow-up visit [id number] Ben Guadalupe 1935 M Date Provider Department Center 03/18/2022 KAVITA RITTER [facility] Family History Problem Relation Age of Onset Heart failure Mother Prostate cancer Father Coronary artery disease Brother Prostate cancer Brother Family Status - Relation Status Age at Mother Father Brother Level of Service:77514 ME OFFICE/OUTPATIENT ESTABLISHED MOD MDM 30-39 MIN Reason for Visit and Comments: Atrial Fibrillation [80] Coronary Artery Disease [187] Hypertension [665121] left ventricular hypertrophy [Other] Normal [facility] PROF CHEM 8 (BAS METB)on Anion gap [Moles/Vol] 10.8 mmol/L Normal [facility] Comment on above: Performed By: #### U A #### [facility] [address] [address] [address] Mason Astudillo Calcium [Mass/Vol] 8.8 mg/dL Normal 8.5-10.1 [facility] Comment on above: Performed By: #### U A #### [facility] [address] [address] [address] Mason Astudillo Chloride [Moles/Vol] 103 mmol/L Normal 98-107 [facility] Comment on above: Performed By: #### U A #### [facility] [address] [address] [address] Mason Astudillo CO2 [Moles/Vol] 29.9 mmol/L Normal 21.0-32.0 [facility] Comment on above: Performed By: #### U A #### [facility] [address] [address] [address] Mason Astudillo Creatinine [Mass/Vol] 1.20 mg/dL Normal 0.70-1.30 [facility] Comment on above: Performed By: #### U A #### [facility] [address] [address] [address] Mason Astudillo EGFR-AF PAKISTANI >60 Normal >=60 [facility] Comment on above: Performed By: #### U A #### [facility] [address] [address] [address] Mason Astudillo EGFR-NON AF PAKISTANI 58 mL/min/1.73m2 Critically low >=60 [facility] Comment on above: Performed By: #### U A #### [facility] [address] [address] [address] Mason Astudillo Glucose [Mass/Vol] 202 mg/dL Critically high 74-106 T [facility] Comment on above: Performed By: #### U A #### [facility] [address] [address] [address] Mason Astudillo Potassium [Moles/Vol] 3.7 mmol/L Normal 3.5-5.1 [facility] Comment on above: Performed By: #### U A #### [facility] [address] [address] [address] Mason Astudillo Sodium [Moles/Vol] 140 mmol/L Normal 136-145 [facility] Comment on above: Performed By: #### U A #### [facility] [address] [address] [address] Mason Astudillo Urea nitrogen [Mass/Vol] 22.0 mg/dL Critically high 7.0-18.0 [facility] Comment on above: Performed By: #### U A #### [facility] [address] [address] [address] Mason Astudillo Urea nitrogen/Creatinine [Mass ratio] 18.3 mg/mg Normal [facility] Comment on above: Performed By: #### U A #### [facility] [address] [address] [address] Mason Astudillo Abstracton 03-16-2022 Abstract [id number] Ben Guadalupe 1935 M Date Provider Department Center 03/16/2022 AnjaliMONE SHIPMAN [facility] Family History Problem Relation Age of Onset Heart failure Mother Prostate cancer Father Coronary artery disease Brother Prostate cancer Brother Family Status - Relation Status Age at Mother Father Brother Normal [facility] XR KUB 1 VIEWon 02-18-2022 XR KUB 1 VIEW EXAMINATION: XR KUB 1 VIEW HISTORY: Kidney stone COMPARISON: XR KUB 01/01/2018 FINDINGS: KIDNEY/URETER - RIGHT: No visible renal or ureteral calcifications. KIDNEY/URETER - LEFT: Small calcification projecting over inferior pole of kidney. PELVIS: No visible ureteral calcifications. Any visible calcifications favor phleboliths. BOWEL: No abnormal dilation or deviation. BONES: No acute abnormality. OTHER: Prior radioactive prostate seeding. IMPRESSION: 1. Stable left nephrolithiasis. Electronically authenticated by: BRISA SALAS Date: 2022-02-18 15:45 Normal [facility] VIT D 25-OH LABCORPon 2021 Vitamin D, 25-Hydroxy 27.3 ng/mL Critically low 30.0-100.0 [facility] Comment on above: Result Comment: Masha min D deficiency has been defined by the [place] of [employer] and an Endocrine Society practice guideline as a level of serum 25-OH vitamin D less than 20 ng/mL (1,2). The Endocrine Society went on to further define vitamin D insufficiency as a level between 21 and 29 ng/mL (2). 1. IOM ([place] of Medicine). 2010. Dietary reference intakes for calcium and D. [place]: The National Academies Press. 2. Hemalatha MF, Gunnar [place], Kamla ROUSE, et al. Evaluation, treatment, and prevention of vitamin D deficiency: an Endocrine Society clinical practice guideline. JCEM. 2010; 96(7):1911-30. Performed By: #### A 1C #### [facility] [address] [place] [address] Dr. Mason Astudillo CBC AUTO DIFFon 02-06-2022 BASO # 0.0 103/ul Normal 0.0-0.1 [facility] Comment on above: Performed By: #### A 1C #### [facility] [address] [place] [address] Dr. Mason Astudillo Basophils/100 WBC (Bld) 0.4 % Normal 0.2-2.0 [facility] Comment on above: Performed By: #### A 1C #### [facility] [address] [place] [address] Dr. Mason Astudillo EO # 0.1 103/ul Normal 0.0-0.7 [facility] Comment on above: Performed By: #### A 1C #### [facility] [address] [place] [address] Dr. Mason Astudillo Eosinophils/100 WBC (Bld) 2.5 % Normal 0.9-7.0 [facility] Comment on above: Performed By: #### A 1C #### [facility] [address] [place] [address] Dr. Mason Astudillo Erythrocyte distribution width (RBC) [Ratio] 16.6 % Critically high 11.0-15.0 [facility] Comment on above: Performed By: #### A 1C #### [facility] [address] [place] [address] Dr. Mason Astudillo Hematocrit (Bld) [Volume fraction] 26.8 % Critically low 42.0-54.0 [facility] Comment on above: Performed By: #### A 1C #### [facility] [address] [place] [address] Dr. Mason Astudillo Hemoglobin (Bld) [Mass/Vol] 8.4 g/dL Critically low 14.0-18.0 [facility] Comment on above: Performed By: #### A 1C #### [facility] [address] [place] [address] Dr. Mason Astudillo IG # 0.12 10e3/ul Critically high 0.00-0.03 [facility] Comment on above: Performed By: #### A 1C #### [facility] [address] [place] [address] Dr. Mason Astudillo IG % 2.5 % Critically high 0.0-0.5 [facility] Comment on above: Performed By: #### A 1C #### [facility] [address] [place] [address] Dr. Mason Astudillo LYMPH # 0.9 103/ul Critically low 1.2-3.8 [facility] Comment on above: Performed By: #### A 1C #### [facility] [address] [place] [address] Dr. Mason Astudillo Lymphocytes/100 WBC (Bld) 18.1 % Critically low 20.5-60.0 [facility] Comment on above: Performed By: #### A 1C #### [facility] [address] [place] [address] Dr. Mason Astudillo MANUAL DIFF REQ NO Normal [facility] Comment on above: Performed By: #### A 1C #### [facility] [address] [place] [address] Dr. Mason Astudillo MCH (RBC) [Entitic mass] 27.7 pg Normal 25.9-34.0 [facility] Comment on above: Performed By: #### A 1C #### [facility] [address] [address] [address] Mason Astudillo MCHC (RBC) [Mass/Vol] 31.3 g/dL Normal 29.9-35.2 [facility] Comment on above: Performed By: #### A 1C #### [facility] [address] [place] [address] Dr. Mason Astudillo MCV (RBC) [Entitic vol] 88.4 fL Normal 80.0-94.0 [facility] Comment on above: Performed By: #### A 1C #### [facility] [address] [place] [address] Dr. Mason Astudillo MONO # 0.4 103/ul Normal 0.3-0.8 [facility] Comment on above: Performed By: #### A 1C #### [facility] [address] [place] [address] Dr. Mason Astudillo Monocytes/100 WBC (Bld) 9.1 % Normal 1.7-12.0 [facility] Comment on above: Performed By: #### A 1C #### [facility] [address] [place] [address] Dr. Mason Astudillo NEUT # 3.2 103/ul Normal 1.4-6.5 [facility] Comment on above: Performed By: #### A 1C #### [facility] [address] [place] [address] Dr. Mason Astudillo Neutrophils/100 WBC (Bld) 67.4 % Normal 43.0-75.0 [facility] Comment on above: Performed By: #### A 1C #### [facility] [address] [place] [address] Dr. Mason Astudillo Platelet mean volume (Bld) [Entitic vol] 10.2 fL Normal 9.5-13.5 [facility] Comment on above: Performed By: #### A 1C #### [facility] [address] [place] [address] Dr. Mason Astudillo PLT 135 103/ul Critically low 150-450 [facility] Comment on above: Performed By: #### A 1C #### [facility] [address] [address] [address] Mason Astudillo RBC 3.03 106/ul Critically low 4.70-6.10 [facility] Comment on above: Performed By: #### A 1C #### [facility] [address] [place] [address] Dr. Mason Astudillo WBC 4.7 103/ul Normal 4.0-11.0 [facility] Comment on above: Performed By: #### A 1C #### [facility] [address] [place] [address] Dr. Mason Astudillo GLYCOHEMOGLOBIN A1Con 2021 ADA RECOMMENDATION SEE BELOW Normal [facility] Comment on above: Result Comment: ADA RECOMMENDED LIMIT 4.0 - 6.0 ADA THERAPEUTIC TARGET < 7.0 ACTION SUGGESTED > 7.0 Performed By: #### A 1C #### [facility] [address] [place] [address] Dr. Mason Astudillo Glucose [Mass/Vol] 148 mg/dL Normal [facility] Comment on above: Performed By: #### A 1C #### [facility] [address] [place] [address] Dr. Mason Astudillo HbA1c (Bld) [Mass fraction] 6.8 % Critically high 4.5-6.2 [facility] Comment on above: Performed By: #### A 1C #### [facility] [address] [place] [address] Dr. Mason Astudillo POINT OF CARE GLUCOSEon Glucose [Mass/Vol] 157 mg/dL Critically high 74-106 T [facility] Comment on above: Performed By: #### P OCGLUC #### [facility] [address] [place] [address] Dr. Mason Astudillo PROF CHEM 8 (BAS METB)on Anion gap [Moles/Vol] 10.5 mmol/L Normal [facility] Comment on above: Performed By: #### B MP #### [facility] [address] [place] [address] Dr. Mason Astudillo Calcium [Mass/Vol] 8.0 mg/dL Critically low 8.5-10.[address] [facility] Comment on above: Performed By: #### B MP #### [facility] [address] [place] [address] Dr. Mason Astudillo Chloride [Moles/Vol] 105 mmol/L Normal 98-107 [facility] Comment on above: Performed By: #### B MP #### [facility] [address] [address] [address] Mason Astudillo CO2 [Moles/Vol] 27.2 mmol/L Normal 21.0-32.0 [facility] Comment on above: Performed By: #### B MP #### [facility] [address] [place] [address] Dr. Mason Astudillo Creatinine [Mass/Vol] 1.11 mg/dL Normal 0.70-1.30 [facility] Comment on above: Performed By: #### B MP #### [facility] [address] [place] [address] Dr. Mason Astudillo EGFR-AF PAKISTANI >60 Normal >=60 [facility] Comment on above: Performed By: #### B MP #### [facility] [address] [place] [address] Dr. Mason Astudillo EGFR-NON AF PAKISTANI >60 Normal >=60 [facility] Comment on above: Performed By: #### B MP #### [facility] [address] [place] [address] Dr. Mason Astudillo Glucose [Mass/Vol] 174 mg/dL Critically high 74-106 [facility] Comment on above: Performed By: #### B MP #### [facility] [address] [address] [address] Mason Astudillo Potassium [Moles/Vol] 3.7 mmol/L Normal 3.5-5.1 [facility] Comment on above: Performed By: #### B MP #### [facility] [address] [place] [address] Dr. Mason Astudillo Sodium [Moles/Vol] 139 mmol/L Normal 136-145 [facility] Comment on above: Performed By: #### B MP #### [facility] [address] [place] [address] Dr. Mason Astudillo Urea nitrogen [Mass/Vol] 19.0 mg/dL Critically high 7.0-18.0 [facility] Comment on above: Performed By: #### B MP #### [facility] [address] [place] [address] Dr. Mason Astudillo Urea nitrogen/Creatinine [Mass ratio] 17.1 mg/mg Normal [facility] Comment on above: Performed By: #### B MP #### [facility] [address] [place] [address] Dr. Mason Astudillo CBC W MANUAL DIFFon 02-06-20 22 ATYPICAL LYMPH # Normal [facility] Comment on above: Performed By: #### C BC #### [facility] [address] [place] [address] Dr. Mason Astudillo ATYPICAL LYMPH % Normal [facility] Comment on above: Performed By: #### C BC #### [facility] [address] [place] [address] Dr. Mason Astudillo BAND # 0.0 103/ul Normal 0.0-0.3 [facility] Comment on above: Performed By: #### C BC #### [facility] [address] [place] [address] Dr. Mason Astudillo BAND % 0 % Normal 0-5 [facility] Comment on above: Performed By: #### C BC #### [facility] [address] [place] [address] Dr. Mason Astudillo BASOM # 0.06 103/ul Normal 0.00-0.10 [facility] Comment on above: Performed By: #### C BC #### [facility] [address] [place] [address] Dr. Mason Astudillo BASOM % 1.0 % Normal 0.2-2.0 [facility] Comment on above: Performed By: #### C BC #### [facility] [address] [place] [address] Dr. Mason Astudillo BLAST # Normal [facility] Comment on above: Performed By: #### C BC #### [facility] [address] [place] [address] Dr. Mason Astudillo BLAST % Normal [facility] Comment on above: Performed By: #### C BC #### [facility] [address] [place] [address] Dr. Mason Astudillo CORRECTED WBC Normal 4.0-11.0 [facility] Comment on above: Performed By: #### C BC #### [facility] [address] [place] [address] Dr. Mason Astudillo EOS # 0.17 103/ul Normal 0.00-0.70 [facility] Comment on above: Performed By: #### C BC #### [facility] [address] [place] [address] Dr. Mason Astudillo EOS% 3.0 % Normal 0.9-7.0 [facility] Comment on above: Performed By: #### C BC #### [facility] [address] [place] [address] Dr. Mason Astudillo HCT 27.4 % Critically low 42.0-54.0 [facility] Comment on above: Performed By: #### C BC #### [facility] [address] [place] [address] Dr. Mason Astudillo HGB 8.6 g/dl Critically low 14.0-18.0 [facility] Comment on above: Performed By: #### C BC #### [facility] [address] [place] [address] Dr. Mason Astudillo LYMPHM # 0.56 103/ul Critically low 1.20-3.80 [facility] Comment on above: Performed By: #### C BC #### [facility] [address] [place] [address] Dr. Mason Astudillo LYMPHM% 10.0 % Critically low 20.5-60.0 [facility] Comment on above: Performed By: #### C BC #### [facility] [address] [place] [address] Dr. Mason Astudillo MCH 27.7 pg Normal 25.9-34.0 [facility] Comment on above: Performed By: #### C BC #### [facility] [address] [place] [address] Dr. Mason Astudillo MCHC 31.4 g/dl Normal 29.9-35.2 [facility] Comment on above: Performed By: #### C BC #### [facility] [address] [place] [address] Dr. Mason Astudillo MCV 88.1 fL Normal 80.0-94.0 [facility] Comment on above: Performed By: #### C BC #### [facility] [address] [place] [address] Dr. Mason Astudillo METAMYELOCYTE # Normal [facility] Comment on above: Performed By: #### C BC #### [facility] [address] [place] [address] Dr. Mason Astudillo METAMYELOCYTE % Normal [facility] Comment on above: Performed By: #### C BC #### [facility] [address] [place] [address] Dr. Mason Astudillo MONOM# 0.34 103/ul Normal 0.30-0.80 [facility] Comment on above: Performed By: #### C BC #### [facility] [address] [place] [address] Dr. Mason Astudillo MONOM% 6.0 % Normal 1.7-12.0 [facility] Comment on above: Performed By: #### C BC #### [facility] [address] [place] [address] Dr. Mason Astudillo MPV 10.5 fL Normal 9.5-13.5 [facility] Comment on above: Performed By: #### C BC #### [facility] [address] [place] [address] Dr. Mason Astudillo MYELOCYTE # Normal [facility] Comment on above: Performed By: #### C BC #### [facility] [address] [place] [address] Dr. Mason Astudillo MYELOCYTE % Normal [facility] Comment on above: Performed By: #### C BC #### [facility] [address] [address] [address] Mason Astudillo NRBC Normal [facility] Comment on above: Performed By: #### C BC #### [facility] [address] [address] [address] Mason Astudillo OVALOCYTES 1+ Normal [facility] Comment on above: Performed By: #### C BC #### [facility] [address] [address] [address] Mason Astudillo PLT 124 103/ul Critically low 150-450 [facility] Comment on above: Performed By: #### C BC #### [facility] [address] [place] [address] Dr. Mason Astudillo RBC 3.11 106/ul Critically low 4.70-6.10 [facility] Comment on above: Performed By: #### C BC #### [facility] [address] [place] [address] Dr. Mason Astudillo RDW 15.9 % Critically high 11.0-15.0 [facility] Comment on above: Performed By: #### C BC #### [facility] [address] [place] [address] Dr. Mason Astudillo SEG # 4.48 103/ul Normal 1.40-6.50 [facility] Comment on above: Performed By: #### C BC #### [facility] [address] [place] [address] Dr. Mason Astudillo SEG % 80.0 % Critically high 43.0-75.0 [facility] Comment on above: Performed By: #### C BC #### [facility] [address] [place] [address] Dr. Mason Astudillo WBC 5.6 103/ul Normal 4.0-11.0 [facility] Comment on above: Performed By: #### C BC #### [facility] [address] [place] [address] Dr. Mason Astudillo POINT OF CARE GLUCOSEon 08-0 Glucose [Mass/Vol] 260 mg/dL Critically high 74-106 [facility] Comment on above: Performed By: #### P OCGLUC #### [facility] [address] [address] [address] Mason Astudillo Glucose [Mass/Vol] 165 mg/dL Critically high -106 [facility] Comment on above: Performed By: #### A 1C #### [facility] [address] [address] [address] Mason Astudillo Glucose [Mass/Vol] 147 mg/dL Critically high 74-106 [facility] Comment on above: Performed By: #### C BC #### [facility] [address] [place] [address] Dr. Mason Astudillo PROF CHEM 8 (BAS METB)on Anion gap [Moles/Vol] 11.0 mmol/L Normal [facility] Comment on above: Performed By: #### U A #### [facility] [address] [place] [address] Dr. Mason Astudillo Calcium [Mass/Vol] 8.0 mg/dL Critically low 8.5-10.1 [facility] Comment on above: Performed By: #### U A #### [facility] [address] [place] [address] Dr. Mason Astudillo Chloride [Moles/Vol] 106 mmol/L Normal 98-107 [facility] Comment on above: Performed By: #### U A #### [facility] [address] [place] [address] Dr. Mason Astudillo CO2 [Moles/Vol] 26.7 mmol/L Normal 21.0-32.0 [facility] Comment on above: Performed By: #### U A #### [facility] [address] [place] [address] Dr. Mason Astudillo Creatinine [Mass/Vol] 1.22 mg/dL Normal 0.70-1.30 [facility] Comment on above: Performed By: #### U A #### [facility] [address] [place] [address] Dr. Mason Astudillo EGFR-AF PAKISTANI >60 Normal >=60 [facility] Comment on above: Performed By: #### U A #### [facility] [address] [address] [address] Mason Astudillo EGFR-NON AF PAKISTANI 56 mL/min/1.73m2 Critically low >=60 [facility] Comment on above: Performed By: #### U A #### [facility] [address] [address] [address] Mason Astudillo Glucose [Mass/Vol] 147 mg/dL Critically high 74-106 T [facility] Comment on above: Performed By: #### U A #### [facility] [address] [address] [address] Mason Astudillo Potassium [Moles/Vol] 3.7 mmol/L Normal 3.5-5.1 [facility] Comment on above: Performed By: #### U A #### [facility] [address] [address] [address] Mason Astudillo Sodium [Moles/Vol] 140 mmol/L Normal 136-145 [facility] Comment on above: Performed By: #### U A #### [facility] [address] [place] [address] [address] Mason Astudillo Urea nitrogen [Mass/Vol] 17.0 mg/dL Normal 7.0-18.0 [facility] Comment on above: Performed By: #### U A #### [facility] [address] [address] [address] Mason Astudillo Urea nitrogen/Creatinine [Mass ratio] 13.9 mg/mg Normal [facility] Comment on above: Performed By: #### U A #### [facility] [address] [address] [address] Mason Astudillo CBC AUTO DIFFon 02-04-2022 BASO # 0.0 103/ul Normal 0.0-0.1 [facility] Comment on above: Performed By: #### C BC #### [facility] [address] [address] [address] Mason Astudillo Basophils/100 WBC (Bld) 0.2 % Normal 0.2-2.0 [facility] Comment on above: Performed By: #### C BC #### [facility] [address] [address] [address] Mason Astudillo EO # 0.2 103/ul Normal 0.0-0.7 [facility] Comment on above: Performed By: #### C BC #### [facility] [address] [place] [address] Dr. Mason Astudillo Eosinophils/100 WBC (Bld) 3.4 % Normal 0.9-7.0 [facility] Comment on above: Performed By: #### C BC #### [facility] [address] [place] [address] Dr. Mason Astudillo Erythrocyte distribution width (RBC) [Ratio] 15.6 % Critically high 11.0-15.0 [facility] Comment on above: Performed By: #### C BC #### [facility] [address] [place] [address] Dr. Mason Astudillo Hematocrit (Bld) [Volume fraction] 26.1 % Critically low 42.0-54.0 [facility] Comment on above: Performed By: #### C BC #### [facility] [address] [place] [address] Dr. Mason Astudillo Hemoglobin (Bld) [Mass/Vol] 8.2 g/dL Critically low 14.0-18.0 [facility] Comment on above: Performed By: #### C BC #### [facility] [address] [place] [address] Dr. Mason Astudillo IG # 0.06 10e3/ul Critically high 0.00-0.03 [facility] Comment on above: Performed By: #### C BC #### [facility] [address] [place] [address] Dr. Mason Astudillo IG % 1.4 % Critically high 0.0-0.5 [facility] Comment on above: Performed By: #### C BC #### [facility] [address] [place] [address] Dr. Mason Astudillo LYMPH # 0.6 103/ul Critically low 1.2-3.8 [facility] Comment on above: Performed By: #### C BC #### [facility] [address] [place] [address] Dr. Mason Astudillo Lymphocytes/100 WBC (Bld) 14.3 % Critically low 20.5-60.0 [facility] Comment on above: Performed By: #### C BC #### [facility] [address] [place] [address] Dr. Mason Astudillo MANUAL DIFF REQ NO Normal [facility] Comment on above: Performed By: #### C BC #### [facility] [address] [place] [address] Dr. Mason Astudillo MCH (RBC) [Entitic mass] 27.4 pg Normal 25.9-34.0 [facility] Comment on above: Performed By: #### C BC #### [facility] [address] [place] [address] Dr. Mason Astudillo MCHC (RBC) [Mass/Vol] 31.4 g/dL Normal 29.9-35.2 [facility] Comment on above: Performed By: #### C BC #### [facility] [address] [place] [address] Dr. Mason Astudillo MCV (RBC) [Entitic vol] 87.3 fL Normal 80.0-94.0 [facility] Comment on above: Performed By: #### C BC #### [facility] [address] [place] [address] Dr. Mason Astudillo MONO # 0.5 103/ul Normal 0.3-0.8 [facility] Comment on above: Performed By: #### C BC #### [facility] [address] [place] [address] Dr. Mason Astudillo Monocytes/100 WBC (Bld) 10.4 % Normal 1.7-12.0 [facility] Comment on above: Performed By: #### C BC #### [facility] [address] [place] [address] Dr. Mason Astudillo NEUT # 3.1 103/ul Normal 1.4-6.5 [facility] Comment on above: Performed By: #### C BC #### [facility] [address] [address] [address] Mason Astudillo Neutrophils/100 WBC (Bld) 70.3 % Normal 43.0-75.0 [facility] Comment on above: Performed By: #### C BC #### [facility] [address] [address] [address] Mason Astudillo Platelet mean volume (Bld) [Entitic vol] 10.5 fL Normal 9.5-13.5 [facility] Comment on above: Performed By: #### C BC #### [facility] [address] [address] [address] Mason Astudillo PLT 105 103/ul Critically low 150-450 [facility] Comment on above: Performed By: #### C BC #### [facility] [address] [place] [address] Dr. Mason Astudillo RBC 2.99 106/ul Critically low 4.70-6.10 [facility] Comment on above: Performed By: #### C BC #### [facility] [address] [address] [address] Mason Astudillo WBC 4.4 103/ul Normal 4.0-11.0 [facility] Comment on above: Performed By: #### C BC #### [facility] [address] [place] [address] Dr. Mason Astudillo ECHOCARDIO M/2D COMPLETEon 0 02-04-2022 ECHOCARDIO M/2D COMPLETE Patient: BEN GUADALUPE Exam Date: 02/04/2022 : 1935 Gender:M Ordering : DR COLTON CASTELLON . Admission #: [id number] Family : SHAIKH Samantha ELLIOTT . Order #: [id number] CLICK HERE TO VIEW EXAM ECHOCARDIOGRAM REPORT PROCEDURE: CARDIO PULMONARY ECHOCARDIO M/2D COMP INDICATIONS: New Atrial Fibrillation, hypertension, h/o CVA COMPARISON: None. DESCRIPTION: COMPLETE ECHOCARDIOGRAM Real-time transthoracic echocardiography with 2D, M-mode, spectral and color flow Doppler performed. QUALITY: Technical quality was good. LEFT VENTRICLE: Normal chamber size. Mild concentric left ventricular hypertrophy. LV EF: Normal left ventricular ejection fraction, (>55%). No significant wall motion abnormalities. DIASTOLIC: Diastolic function is normal. ATRIAL SEPTUM: Visually appears intact. LEFT ATRIUM: Normal chamber size. RIGHT ATRIUM: Mild dilatation. RIGHT VENTRICLE: Mild dilatation. Decreased right ventricular systolic function. TRICUSPID VALVE: Normal mobility and thickness. Mild regurgitation. Doppler studies reveal moderately (45-60) elevated right sided pressures. RVSP 47 mmHg MITRAL VALVE: Normal mobility and thickness. No evidence of mitral valve stenosis. Mild mitral regurgitation. AORTIC VALVE: Normal trileaflet appearance. Thickened aortic valve. Normal leaflet mobility. No evidence of aortic valve stenosis. No aortic regurgitation. AORTIC ROOT: Normal diameter and appearance. Ascending aorta is normal in size. PULMONIC VALVE: Not well visualized. No stenosis. No regurgitation. PERICARDIUM: Anterior free space; trivial effusion versus fat pad. IVC: IVC is dilated (2.2 cm) with no collapse. CONCLUSION: Global left ventricular systolic function is normal; visually estimated ejection fraction is 55 to 60%. No significant wall motion abnormalities. Mild left ventricular hypertrophy. Diastolic function is normal. The right atrium is mildly dilated. The right ventricle is mildly dilated with decreased systolic function. Mild tricuspid regurgitation. Moderately elevated right-sided pressures. Anterior free space; trivial effusion versus fat pad. Dictated by: Nishi Cheney M.D. on 02/04/2022 at 13:34 Approved by: Nishi Cheney M.D. on 02/04/2022 at 13:39 Normal [facility] POINT OF CARE GLUCOSEon 08-0 Glucose [Mass/Vol] 262 mg/dL Critically high 74-106 [facility] Comment on above: Performed By: #### C BC #### [facility] [address] [address] [address] Mason Astudillo Glucose [Mass/Vol] 167 mg/dL Critically high 74-106 [facility] Comment on above: Performed By: #### C BC #### [facility] [address] [address] [address] Mason Astudillo Glucose [Mass/Vol] 158 mg/dL Critically high -106 [facility] Comment on above: Performed By: #### P OCGLUC #### [facility] [address] [address] [address] Mason Astudillo PRBC LEUKOREDUCEDon 02-05-20 ABO and Rh group Nom (Bld) Cross Match Result Compatible Unit Blood Type A Neg Unit Number [id number] Status Information Transfused Product ID Red Blood Cells Product Code [id number] Cross Match Result Compatible Unit Blood Type A Neg Unit Number [id number] Status Information Transfused Product ID Red Blood Cells Product Code [id number] Normal [facility] Comment on above: Performed By: #### P SAD #### [facility] [address] [place] [address] Dr. Mason Astudillo PROF CHEM 8 (BAS METB)on Anion gap [Moles/Vol] 11.5 mmol/L Normal [facility] Comment on above: Performed By: #### C BC #### [facility] [address] [place] [address] Dr. Mason Astudillo Calcium [Mass/Vol] 7.4 mg/dL Critically low 8.5-10.[address] [facility] Comment on above: Performed By: #### C BC #### [facility] [address] [place] [address] Dr. Mason Astudillo Chloride [Moles/Vol] 106 mmol/L Normal 98-107 [facility] Comment on above: Performed By: #### C BC #### [facility] [address] [place] [address] Dr. Mason Astudillo CO2 [Moles/Vol] 25.8 mmol/L Normal 21.0-32.0 [facility] Comment on above: Performed By: #### C BC #### [facility] [address] [place] [address] Dr. Mason Astudillo Creatinine [Mass/Vol] 1.07 mg/dL Normal 0.70-1.30 [facility] Comment on above: Performed By: #### C BC #### [facility] [address] [place] [address] Dr. Maosn Astudillo EGFR-AF PAKISTANI >60 Normal >=60 [facility] Comment on above: Performed By: #### C BC #### [facility] [address] [address] [address] Mason Astudillo EGFR-NON AF PAKISTANI >60 Normal >=60 [facility] Comment on above: Performed By: #### C BC #### [facility] [address] [address] [address] Mason Astudillo Glucose [Mass/Vol] 165 mg/dL Critically high 74-106 [facility] Comment on above: Performed By: #### C BC #### [facility] [address] [address] [address] Mason Astudillo Potassium [Moles/Vol] 3.3 mmol/L Critically low 3.5-5.1 [facility] Comment on above: Performed By: #### C BC #### [facility] [address] [address] [address] Mason Astudillo Sodium [Moles/Vol] 140 mmol/L Normal 136-145 [facility] Comment on above: Performed By: #### C BC #### [facility] [address] [address] [address] Mason Astudillo Urea nitrogen [Mass/Vol] 19.0 mg/dL Critically high 7.0-18.0 [facility] Comment on above: Performed By: #### C BC #### [facility] [address] [address] [address] Mason Astudillo Urea nitrogen/Creatinine [Mass ratio] 17.8 mg/mg Normal [facility] Comment on above: Performed By: #### C BC #### [facility] [address] [address] [address] Mason Astudillo ABO RH RETYPEon 02-03-2022 ABO and Rh group Nom (Bld) DONE Normal [facility] Comment on above: Performed By: #### P OCGLUC #### [facility] [address] [place] [address] Dr. Mason Astudillo CBC AUTO DIFFon 02-03-2022 Basophils/100 WBC (Bld) 0.5 % Normal 0.2-2.0 [facility] Comment on above: Performed By: #### U A #### [facility] [address] [place], [place] [id number] Dr. Mason Astudillo EO # 0.2 103/ul Normal 0.0-0.7 [facility] Comment on above: Performed By: #### U A #### [facility] [address] [place] [address] Dr. Mason Astudillo Eosinophils/100 WBC (Bld) 2.9 % Normal 0.9-7.0 [facility] Comment on above: Performed By: #### U A #### [facility] [address] [place] [address] Dr. Mason Astudillo Erythrocyte distribution width (RBC) [Ratio] 15.7 % Critically high 11.0-15.0 [facility] Comment on above: Performed By: #### U A #### [facility] [address] [place] [address] Dr. Mason Astudillo Hematocrit (Bld) [Volume fraction] 31.1 % Critically low 42.0-54.0 [facility] Comment on above: Performed By: #### U A #### [facility] [address] [place] [address] Dr. Mason Astudillo Hemoglobin (Bld) [Mass/Vol] 9.7 g/dL Critically low 14.0-18.0 [facility] Comment on above: Result Comment: rcvd . 2 units of packed red cells. Performed By: #### U A #### [facility] [address] [place] [address] Dr. Mason Astudillo IG # 0.05 10e3/ul Critically high 0.00-0.03 [facility] Comment on above: Performed By: #### U A #### [facility] [address] [place] [address] Dr. Mason Astudillo IG % 0.8 % Critically high 0.0-0.5 [facility] Comment on above: Performed By: #### U A #### [facility] [address] [place] [address] Dr. Mason Astudillo LYMPH # 1.1 103/ul Critically low 1.2-3.8 [facility] Comment on above: Performed By: #### U A #### [facility] [address] [place] [address] Dr. Mason Astudillo Lymphocytes/100 WBC (Bld) 19.3 % Critically low 20.5-60.0 [facility] Comment on above: Performed By: #### U A #### [facility] [address] [place] [address] Dr. Mason Astudillo MCH (RBC) [Entitic mass] 27.2 pg Normal 25.9-34.0 [facility] Comment on above: Performed By: #### U A #### [facility] [address] [place] [address] Dr. Mason Astudillo MCHC (RBC) [Mass/Vol] 31.2 g/dL Normal 29.9-35.2 [facility] Comment on above: Performed By: #### U A #### [facility] [address] [place] [address] Dr. Mason Astudillo MCV (RBC) [Entitic vol] 87.1 fL Normal 80.0-94.0 [facility] Comment on above: Performed By: #### U A #### [facility] [address] [place] [address] Dr. Mason Astudillo MONO # 0.6 103/ul Normal 0.3-0.8 [facility] Comment on above: Performed By: #### U A #### [facility] [address] [place] [address] Dr. Mason Astudillo Monocytes/100 WBC (Bld) 10.7 % Normal 1.7-12.0 [facility] Comment on above: Performed By: #### U A #### [facility] [address] [place] [address] Dr. Mason Asutdillo NEUT # 3.9 103/ul Normal 1.4-6.5 [facility] Comment on above: Performed By: #### U A #### [facility] [address] [place] [address] Dr. Mason Astudillo Neutrophils/100 WBC (Bld) 65.8 % Normal 43.0-75.0 [facility] Comment on above: Performed By: #### U A #### [facility] [address] [place] [address] Dr. Mason Astudillo Platelet mean volume (Bld) [Entitic vol] 10.5 fL Normal 9.5-13.5 [facility] Comment on above: Performed By: #### U A #### [facility] [address] [place] [address] Dr. Mason Astudillo PLT 147 103/ul Critically low 150-450 [facility] Comment on above: Performed By: #### U A #### [facility] [address] [place] [address] Dr. Mason Astudillo RBC 3.57 106/ul Critically low 4.70-6.10 [facility] Comment on above: Performed By: #### U A #### [facility] [address] [place] [address] Dr. Mason Astudillo WBC 5.9 103/ul Normal 4.0-11.0 [facility] Comment on above: Performed By: #### U A #### [facility] [address] [place] [address] Dr. Mason Astudillo BASO # 0.0 103/ul Normal 0.0-0.1 [facility] Comment on above: Performed By: #### U A #### [facility] [address] [place] [address] Dr. Mason Astudillo Basophils/100 WBC (Bld) 0.3 % Normal 0.2-2.0 [facility] Comment on above: Performed By: #### U A #### [facility] [address] [place] [address] Dr. Mason Astudillo EO # 0.1 103/ul Normal 0.0-0.7 [facility] Comment on above: Performed By: #### U A #### [facility] [address] [place] [address] Dr. Mason Astudillo Eosinophils/100 WBC (Bld) 2.5 % Normal 0.9-7.0 [facility] Comment on above: Performed By: #### U A #### [facility] [address] [place] [address] Dr. Mason Astudillo Erythrocyte distribution width (RBC) [Ratio] 15.9 % Critically high 11.0-15.0 [facility] Comment on above: Performed By: #### U A #### [facility] [address] [place] [address] Dr. Mason Astudillo Hematocrit (Bld) [Volume fraction] 22.3 % Critically low 42.0-54.0 [facility] Comment on above: Result Comment: Test Repeated. Critical Value Verified Performed By: #### U A #### [facility] [address] [place] [address] Dr. Mason Astudillo Hemoglobin (Bld) [Mass/Vol] 6.7 g/dL Critically low 14.0-18.0 [facility] Comment on above: Result Comment: Test Repeated. Critical Value Verified Performed By: #### U A #### [facility] [address] [place] [address] Dr. Mason Astudillo IG # 0.02 10e3/ul Normal 0.00-0.03 [facility] Comment on above: Performed By: #### U A #### [facility] [address] [place] [address] Dr. Mason Astudillo IG % 0.5 % Normal 0.0-0.5 [facility] Comment on above: Performed By: #### U A #### [facility] [address] [place] [address] Dr. Mason Astudillo LYMPH # 0.7 103/ul Critically low 1.2-3.8 [facility] Comment on above: Performed By: #### U A #### [facility] [address] [place] [address] Dr. Mason Astudillo Lymphocytes/100 WBC (Bld) 19.5 % Critically low 20.5-60.0 [facility] Comment on above: Performed By: #### U A #### [facility] [address] [place] [address] Dr. Mason Astudillo MANUAL DIFF REQ NO Normal [facility] Comment on above: Performed By: #### U A #### [facility] [address] [address] [address] Mason Astudillo MCH (RBC) [Entitic mass] 25.8 pg Critically low 25.9-34.0 [facility] Comment on above: Performed By: #### U A #### [facility] [address] [place] [address] Dr. Mason Astudillo MCHC (RBC) [Mass/Vol] 30.0 g/dL Normal 29.9-35.2 [facility] Comment on above: Performed By: #### U A #### [facility] [address] [place] [address] Dr. Mason Astudillo MCV (RBC) [Entitic vol] 85.8 fL Normal 80.0-94.0 [facility] Comment on above: Performed By: #### U A #### [facility] [address] [place] [address] Dr. Mason Astudillo MONO # 0.4 103/ul Normal 0.3-0.8 [facility] Comment on above: Performed By: #### U A #### [facility] [address] [place] [address] Dr. Mason Astudillo Monocytes/100 WBC (Bld) 11.8 % Normal 1.7-12.0 [facility] Comment on above: Performed By: #### U A #### [facility] [address] [place] [address] Dr. Mason Astudillo NEUT # 2.4 103/ul Normal 1.4-6.5 [facility] Comment on above: Performed By: #### U A #### [facility] [address] [place] [address] Dr. Mason Astudillo Neutrophils/100 WBC (Bld) 65.4 % Normal 43.0-75.0 [facility] Comment on above: Performed By: #### U A #### [facility] [address] [place] [address] Dr. Mason Astudillo Platelet mean volume (Bld) [Entitic vol] 10.7 fL Normal 9.5-13.5 [facility] Comment on above: Performed By: #### U A #### [facility] [address] [address] [address] Mason Astudillo PLT 103 103/ul Critically low 150-450 [facility] Comment on above: Performed By: #### U A #### [facility] [address] [place] [address] Dr. Mason Astudillo RBC 2.60 106/ul Critically low 4.70-6.10 [facility] Comment on above: Performed By: #### U A #### [facility] [address] [address] [address] Mason Astudillo WBC 3.7 103/ul Critically low 4.0-11.0 [facility] Comment on above: Performed By: #### U A #### [facility] [address] [place] [address] Dr. Mason Astudillo IRON AND TIBCon 02-03-2022 % SATURATION 46.9 % Normal [facility] Comment on above: Performed By: #### U A #### [facility] [address] [place] [address] Dr. Mason Astudillo Iron [Mass/Vol] 150.0 ug/dL Normal 65.0-175.0 [facility] Comment on above: Performed By: #### U A #### [facility] [address] [place] [address] Dr. Mason Astudillo TIBC DIRECT 320.0 ug/dL Normal 250.0-450.0 [facility] Comment on above: Performed By: #### U A #### [facility] [address] [place] [address] Dr. Mason Astudillo POINT OF CARE GLUCOSEon - Glucose [Mass/Vol] 201 mg/dL Critically high 74-106 [facility] Comment on above: Performed By: #### U A #### [facility] [address] [place] [address] Dr. Mason Astudillo Glucose [Mass/Vol] 152 mg/dL Critically high 74-106 [facility] Comment on above: Performed By: #### P OCGLUC #### [facility] [address] [place] [address] Dr. Mason Astudillo Glucose [Mass/Vol] 242 mg/dL Critically high 74-106 [facility] Comment on above: Performed By: #### A 1C #### [facility] [address] [place] [address] Dr. Mason Astudillo PROF CHEM 8 (BAS METB)on Anion gap [Moles/Vol] 11.4 mmol/L Normal [facility] Comment on above: Performed By: #### B MP #### [facility] [address] [place] [address] Dr. Mason Astudillo Calcium [Mass/Vol] 7.5 mg/dL Critically low 8.5-10.[address] [facility] Comment on above: Performed By: #### B MP #### [facility] [address] [place] [address] Dr. Mason Astudillo Chloride [Moles/Vol] 106 mmol/L Normal 98-107 [facility] Comment on above: Performed By: #### B MP #### [facility] [address] [place] [address] Dr. Mason Astudillo CO2 [Moles/Vol] 26.8 mmol/L Normal 21.0-32.0 [facility] Comment on above: Performed By: #### B MP #### [facility] [address] [place] [address] Dr. Mason Astudillo Creatinine [Mass/Vol] 1.26 mg/dL Normal 0.70-1.30 [facility] Comment on above: Performed By: #### B MP #### [facility] [address] [place] [address] Dr. Mason Astudillo EGFR-AF PAKISTANI >60 Normal >=60 [facility] Comment on above: Performed By: #### B MP #### [facility] [address] [place] [address] Dr. Mason Astudillo EGFR-NON AF PAKISTANI 54 mL/min/1.73m2 Critically low >=60 [facility] Comment on above: Performed By: #### B MP #### [facility] [address] [place] [address] Dr. Mason Astudillo Glucose [Mass/Vol] 160 mg/dL Critically high 74-106 [facility] Comment on above: Performed By: #### B MP #### [facility] [address] [place] [address] Dr. Mason Astudillo Potassium [Moles/Vol] 3.2 mmol/L Critically low 3.5-5.1 [facility] Comment on above: Performed By: #### B MP #### [facility] [address] [address] [address] Mason Astudillo Sodium [Moles/Vol] 141 mmol/L Normal 136-145 [facility] Comment on above: Performed By: #### B MP #### [facility] [address] [place] [address] Dr. Mason Astudillo Urea nitrogen [Mass/Vol] 30.0 mg/dL Critically high 7.0-18.0 [facility] Comment on above: Performed By: #### B MP #### [facility] [address] [place] [address] Dr. Mason Astudillo Urea nitrogen/Creatinine [Mass ratio] 23.8 mg/mg Normal [facility] Comment on above: Performed By: #### B MP #### [facility] [address] [place] [address] Dr. Mason Astudillo TYPE AND SCREENon 02-03-2022 TYPE AND SCREEN Negative Normal [facility] Comment on above: Performed By: #### T NS #### [facility] [address] [place] [address] Dr. Mason Astudillo BNPon 02-02-2022 Natriuretic peptide B (Bld) [Mass/Vol] 154.0 pg/mL Normal <=1,800.0 [facility] Comment on above: Performed By: #### P SAD #### [facility] [address] [place] [address] Dr. aMson Astudillo CARDIAC ANJELICA ADMITon 022 CK [Catalytic activity/Vol] 256 U/L Normal 39-308 [facility] Comment on above: Performed By: #### P OCGLUC #### [facility] [address] [place] [address] Dr. Mason Astudillo CK.MB [Mass/Vol] 3.30 ng/mL Normal <=3.60 [facility] Comment on above: Performed By: #### P OCGLUC #### [facility] [address] [place] [address] Dr. Mason Astudillo HSTROP 19.1 pg/mL Normal 4.0-76.1 [facility] Comment on above: Result Comment: CUT- OFF POINTS HAVE BEEN ESTABLISHED BASED ON THE FOURTH UNIVERSAL DEFINITIONS OF MYOCARDIAL INFARCTION. THE UPPER REFERENCE LIMIT (URL) OF TROPONIN, DEFINED THE 99TH PERCENTILE OF cTnI DISTRIBUTION IN A REFERENCE POPULATION, HAS BEEN CONFIRMED THE DECISION THRESHOLD FOR [place] DIAGNOSIS. Performed By: #### P OCGLUC #### [facility] [address] [place] [address] Dr. Mason Astudillo ABDELRAHMAN 304 ng/mL Critically high 16-96 [facility] Comment on above: Performed By: #### P OCGLUC #### [facility] [address] [place] [address] Dr. Mason Astudillo CBC AUTO DIFFon 02-02-2022 BASO # 0.0 103/ul Normal 0.0-0.1 [facility] Comment on above: Performed By: #### C BC #### [facility] [address] [place] [address] Dr. Mason Astudillo Basophils/100 WBC (Bld) 0.5 % Normal 0.2-2.0 [facility] Comment on above: Performed By: #### C BC #### [facility] [address] [place] [address] Dr. Mason Astudillo EO # 0.2 103/ul Normal 0.0-0.7 [facility] Comment on above: Performed By: #### C BC #### [facility] [address] [place] [address] Dr. Mason Astudillo Eosinophils/100 WBC (Bld) 2.4 % Normal 0.9-7.0 [facility] Comment on above: Performed By: #### C BC #### [facility] [address] [place] [address] Dr. Mason Astudillo Erythrocyte distribution width (RBC) [Ratio] 15.9 % Critically high 11.0-15.0 [facility] Comment on above: Performed By: #### C BC #### [facility] [address] [place] [address] Dr. Mason Astudillo Hematocrit (Bld) [Volume fraction] 27.9 % Critically low 42.0-54.0 [facility] Comment on above: Performed By: #### C BC #### [facility] [address] [place] [address] Dr. Mason Astudillo Hemoglobin (Bld) [Mass/Vol] 8.7 g/dL Critically low 14.0-18.0 [facility] Comment on above: Performed By: #### C BC #### [facility] [address] [place] [address] Dr. Mason Astudillo IG # 0.04 10e3/ul Critically high 0.00-0.03 [facility] Comment on above: Performed By: #### C BC #### [facility] [address] [place] [address] Dr. Mason Astudillo IG % 0.6 % Critically high 0.0-0.5 [facility] Comment on above: Performed By: #### C BC #### [facility] [address] [place] [address] Dr. Mason Astudillo LYMPH # 1.3 103/ul Normal 1.2-3.8 [facility] Comment on above: Performed By: #### C BC #### [facility] [address] [place] [address] Dr. Mason Astudillo Lymphocytes/100 WBC (Bld) 20.1 % Critically low 20.5-60.0 [facility] Comment on above: Performed By: #### C BC #### [facility] [address] [place] [address] Dr. Mason Astudillo MANUAL DIFF REQ NO Normal [facility] Comment on above: Performed By: #### C BC #### [facility] [address] [place] [address] Dr. Mason Astudillo MCH (RBC) [Entitic mass] 26.1 pg Normal 25.9-34.0 [facility] Comment on above: Performed By: #### C BC #### [facility] [address] [place] [address] Dr. Mason Astudillo MCHC (RBC) [Mass/Vol] 31.2 g/dL Normal 29.9-35.2 [facility] Comment on above: Performed By: #### C BC #### [facility] [address] [place] [address] Dr. Mason Astudillo MCV (RBC) [Entitic vol] 83.8 fL Normal 80.0-94.0 [facility] Comment on above: Performed By: #### C BC #### [facility] [address] [place] [address] Dr. Mason Astudillo MONO # 0.7 103/ul Normal 0.3-0.8 [facility] Comment on above: Performed By: #### C BC #### [facility] [address] [place] [address] Dr. Mason Astudillo Monocytes/100 WBC (Bld) 11.1 % Normal 1.7-12.0 [facility] Comment on above: Performed By: #### C BC #### [facility] [address] [place] [address] Dr. Mason Astudillo NEUT # 4.1 103/ul Normal 1.4-6.5 [facility] Comment on above: Performed By: #### C BC #### [facility] [address] [place] [address] Dr. Mason Astudillo Neutrophils/100 WBC (Bld) 65.3 % Normal 43.0-75.0 [facility] Comment on above: Performed By: #### C BC #### [facility] [address] [place] [address] Dr. Mason Astudillo Platelet mean volume (Bld) [Entitic vol] 10.3 fL Normal 9.5-13.5 [facility] Comment on above: Performed By: #### C BC #### [facility] [address] [place] [address] Dr. Mason Astudillo PLT 145 103/ul Critically low 150-450 [facility] Comment on above: Performed By: #### C BC #### [facility] [address] [address] [address] Mason Astudillo RBC 3.33 106/ul Critically low 4.70-6.10 [facility] Comment on above: Performed By: #### C BC #### [facility] [address] [address] [address] Mason Astudillo WBC 6.2 103/ul Normal 4.0-11.0 [facility] Comment on above: Performed By: #### C BC #### [facility] [address] [address] [address] Mason Astudillo Covid-19 PCR ([facility])on 01-06 SARS-CoV-2 (COVID-19) RNA GARCÍA+probe Ql (Unsp spec) Not detected Normal NOT DETECTED [facility] Comment on above: Result Comment: When diagnostic testing is negative, the possibility of a false negative should be considered in the context of a patient's recent exposures and the presence of clinical signs and symptoms consistent with SARS-CoV-2. This test is not yet approved or cleared by the [place] FDA. When there are no FDA-approved or cleared tests available, and other criteria are met, FDA can make tests available under an emergency access mechanism called an Emergency Use Authorization (EUA). The EUA for this test is supported by the [employer] of Health and Human Service's declaration that circumstances exist to justify the emergency use of in vitro diagnostics for the detection and/or diagnosis of the virus that causes COVID-19. This EUA will remain in effect for the duration of the COVID-19 declaration justifying emergency of IVDs, unless it is terminated or revoked by the FDA (after which the test may no longer be used). Performed By: #### A 1C #### [facility] [address] [place] [address] Dr. Mason Astudillo FREE T3on 02-02-2022 FREE T3 2.16 pg/mlL Critically low 2.18-3.98 [facility] Comment on above: Performed By: #### P SAD #### [facility] [address] [place] [address] Dr. Mason Astudillo FREE T4on 02-02-2022 Free T4 [Mass/Vol] 1.09 ng/dL Normal 0.76-1.46 [facility] Comment on above: Performed By: #### F T4 #### [facility] [address] [place] [address] Dr. Mason Astudillo GLYCOHEMOGLOBIN A1Con 2021 ADA RECOMMENDATION SEE BELOW Normal [facility] Comment on above: Result Comment: ADA RECOMMENDED LIMIT 4.0 - 6.0 ADA THERAPEUTIC TARGET < 7.0 ACTION SUGGESTED > 7.0 Performed By: #### A 1C #### [facility] [address] [place] [address] Dr. Mason Astudillo Glucose [Mass/Vol] 160 mg/dL Normal [facility] Comment on above: Performed By: #### A 1C #### [facility] [address] [place] [address] Dr. Mason Astudillo HbA1c (Bld) [Mass fraction] 7.2 % Critically high 4.5-6.2 [facility] Comment on above: Performed By: #### A 1C #### [facility] [address] [place] [address] Dr. Mason Astudillo MAGNESIUMon 02-02-2022 Magnesium [Mass/Vol] 2.1 mg/dL Normal 1.8-2.4 [facility] Comment on above: Performed By: #### P SAD #### [facility] [address] [place] [address] Dr. Mason Astudillo POINT OF CARE GLUCOSEon 01-06 Glucose [Mass/Vol] 226 mg/dL Critically high 74-106 [facility] Comment on above: Performed By: #### C BC #### [facility] [address] [place] [address] Dr. Mason Astudillo Glucose [Mass/Vol] 249 mg/dL Critically high 74-106 [facility] Comment on above: Performed By: #### C BC #### [facility] [address] [place] [address] Dr. Mason Astudillo Glucose [Mass/Vol] 195 mg/dL Critically high 74-106 [facility] Comment on above: Performed By: #### P SAD #### [facility] [address] [place] [address] Dr. Mason Astudillo PROF CHEM 8 (BAS METB)on Anion gap [Moles/Vol] 12.6 mmol/L Normal [facility] Comment on above: Performed By: #### P OCGLUC #### [facility] [address] [address] [address] Mason Astudillo Calcium [Mass/Vol] 8.1 mg/dL Critically low 8.5-10.[address] [facility] Comment on above: Performed By: #### P OCGLUC #### [facility] [address] [place] [address] Dr. Mason Astudillo Chloride [Moles/Vol] 101 mmol/L Normal 98-107 [facility] Comment on above: Performed By: #### P OCGLUC #### [facility] [address] [place] [address] Dr. Mason Astudillo CO2 [Moles/Vol] 29.4 mmol/L Normal 21.0-32.0 [facility] Comment on above: Performed By: #### P OCGLUC #### [facility] [address] [place] [address] Dr. Maosn Astudillo Creatinine [Mass/Vol] 1.68 mg/dL Critically high 0.70-1.30 [facility] Comment on above: Performed By: #### P OCGLUC #### [facility] [address] [place] [address] Dr. Mason Astudillo EGFR-AF PAKISTANI 47 mL/min/1.73m2 Critically low >=60 [facility] Comment on above: Result Comment: Prev iously reported as: (blank) On 02/02/2022 06:30 By [facility] Performed By: #### P OCGLUC #### [facility] [address] [place] [address] Dr. Mason Astudillo EGFR-NON AF PAKISTANI 39 mL/min/1.73m2 Critically low >=60 [facility] Comment on above: Result Comment: Prev iously reported as: (blank) On 02/02/2022 06:30 By [facility] Performed By: #### P OCGLUC #### [facility] [address] [place] [address] Dr. Mason Astudillo Glucose [Mass/Vol] 264 mg/dL Critically high 74-106 [facility] Comment on above: Performed By: #### P OCGLUC #### [facility] [address] [address] [address] Mason Astudillo Potassium [Moles/Vol] 3.0 mmol/L Critically low 3.5-5.1 [facility] Comment on above: Performed By: #### P OCGLUC #### [facility] [address] [place] [address] Dr. Mason Astudillo Sodium [Moles/Vol] 140 mmol/L Normal 136-145 [facility] Comment on above: Performed By: #### P OCGLUC #### [facility] [address] [place] [address] Dr. Mason Astudillo Urea nitrogen [Mass/Vol] 45.0 mg/dL Critically high 7.0-18.0 [facility] Comment on above: Performed By: #### P OCGLUC #### [facility] [address] [place] [address] Dr. Mason Astudillo Urea nitrogen/Creatinine [Mass ratio] 26.8 mg/mg Normal [facility] Comment on above: Performed By: #### P OCGLUC #### [facility] [address] [place] [address] Dr. Mason Astudillo TROPONIN, HIGH SENSITIVITYon 02-02-2022 HSTROP 81.7 pg/mL Critically high 4.0-76.1 [facility] Comment on above: Result Comment: CUT- OFF POINTS HAVE BEEN ESTABLISHED BASED ON THE FOURTH UNIVERSAL DEFINITIONS OF MYOCARDIAL INFARCTION. THE UPPER REFERENCE LIMIT (URL) OF TROPONIN, DEFINED THE 99TH PERCENTILE OF cTnI DISTRIBUTION IN A REFERENCE POPULATION, HAS BEEN CONFIRMED THE DECISION THRESHOLD FOR [place] DIAGNOSIS. repeated Performed By: #### B MP #### [facility] [address] [place] [address] Dr. Mason Astudillo TSHon 02-02-2022 TSH 1.200 uIU/mL Normal 0.358-3.740 [facility] Comment on above: Performed By: #### C BC #### [facility] [address] [address] [address] Mason Astudillo XR CHEST 1 Von 02-02-2022 XR CHEST 1 V XR CHEST 1 V 02/02/2022 5:59 AM EDT Indication: CHEST PAIN, UNSPECIFIED Technique: Portable AP radiograph of the chest was obtained. Comparison: None. Findings: The lungs are adequately inflated. No acute rib fractures, pneumothorax or mediastinal shift. No consolidation, edema, or effusion. Heart is normal in size and contour. Impression: No acute findings. Electronically authenticated by: CARMINA LOVE Date: 2022-02-02 06:45 Normal [facility] RENAL FUNCTION PANELon 01-11 Albumin [Mass/Vol] 3.7 g/dL Normal 3.4-5.0 [facility] Comment on above: Performed By: #### P OCGLUC #### [facility] [address] [place] [address] Dr. Mason Astudillo Calcium [Mass/Vol] 8.6 mg/dL Normal 8.5-10.1 [facility] Comment on above: Performed By: #### P OCGLUC #### [facility] [address] [place] [address] Dr. Mason Astudillo Chloride [Moles/Vol] 104 mmol/L Normal 98-107 [facility] Comment on above: Performed By: #### P OCGLUC #### [facility] [address] [address] [address] Mason Astudillo CO2 [Moles/Vol] 28.0 mmol/L Normal 21.0-32.0 [facility] Comment on above: Performed By: #### P OCGLUC #### [facility] [address] [place] [address] Dr. Mason Astudillo Creatinine [Mass/Vol] 1.25 mg/dL Normal 0.70-1.30 [facility] Comment on above: Performed By: #### P OCGLUC #### [facility] [address] [address] [address] Mason Astudillo EGFR-AF PAKISTANI >60 Normal >=60 [facility] Comment on above: Performed By: #### P OCGLUC #### [facility] [address] [address] [address] Mason Astudillo EGFR-NON AF PAKISTANI 55 mL/min/1.73m2 Critically low >=60 [facility] Comment on above: Performed By: #### P OCGLUC #### [facility] [address] [address] [address] Mason Astudillo Glucose [Mass/Vol] 143 mg/dL Critically high 74-106 [facility] Comment on above: Performed By: #### P OCGLUC #### [facility] [address] [address] [address] Mason Astudillo Phosphate [Mass/Vol] 2.9 mg/dL Normal 2.6-4.7 [facility] Comment on above: Performed By: #### P OCGLUC #### [facility] [address] [address] [address] Mason Astudillo Potassium [Moles/Vol] 3.6 mmol/L Normal 3.5-5.1 [facility] Comment on above: Performed By: #### P OCGLUC #### [facility] [address] [place] [address] Dr. Mason Astudillo Sodium [Moles/Vol] 142 mmol/L Normal 136-145 [facility] Comment on above: Performed By: #### P OCGLUC #### [facility] [address] [address] [address] Mason Astudillo Urea nitrogen [Mass/Vol] 19.0 mg/dL Critically high 7.0-18.0 [facility] Comment on above: Performed By: #### P OCGLUC #### [facility] [address] [place] [address] Dr. Mason Astudillo UA RANDOMon 01-11-2022 Bilirubin Ql (U) Negative Normal NEGATIVE [facility] Comment on above: Performed By: #### U A #### [facility] [address] [address] [address] Mason Astudillo Clarity (U) CLEAR Normal CLEAR [facility] Comment on above: Performed By: #### U A #### [facility] [address] [place] [address] Dr. Mason Astudillo Color (U) LT. YELLOW Normal YELLOW [facility] Comment on above: Performed By: #### U A #### [facility] [address] [place] [address] Dr. Mason Astudillo Glucose Ql (U) >1000 Abnormal NEGATIVE [facility] Comment on above: Performed By: #### U A #### [facility] [address] [place] [address] Dr. Mason Astudillo Hemoglobin Ql (U) Negative Normal NEGATIVE [facility] Comment on above: Performed By: #### U A #### [facility] [address] [place] [address] Dr. Mason Astudillo Ketones Ql (U) Negative Normal NEGATIVE [facility] Comment on above: Performed By: #### U A #### [facility] [address] [place] [address] Dr. Mason Astudillo LEUKOCYTES Negative Normal NEGATIVE [facility] Comment on above: Performed By: #### U A #### [facility] [address] [place] [address] Dr. Mason Astudillo Nitrite Ql (U) Negative Normal NEGATIVE [facility] Comment on above: Performed By: #### U A #### [facility] [address] [place] [address] Dr. Mason Astudillo pH (U) 6.5 [pH] Normal 5-9 [facility] Comment on above: Performed By: #### U A #### [facility] [address] [place] [address] Dr. Mason Astudillo SPEC GRAVITY 1.010 Normal 1.005-<=1.0 25 [facility] Comment on above: Performed By: #### U A #### [facility] [address] [place] [address] Dr. Mason Astudillo UA PROTEIN Negative Normal NEGATIVE/ TRACE [facility] Comment on above: Performed By: #### U A #### [facility] [address] [address] [address] Mason Astudillo Urobilinogen Qn (U) 0.2 {Lewis'U}/dL Normal 0.2 - 1. 0 [facility] Comment on above: Performed By: #### U A #### [facility] [address] [address] [address] Mason Astudillo URINE T PROTEIN CREAT RATIOo n 01-11-2022 Protein (U) [Mass/Vol] 23.7 mg/dL Critically high <=12.0 [facility] Comment on above: Performed By: #### A 1C #### [facility] [address] [address] [address] Mason Astudillo UR PROT CREAT RAT 0.20 Normal [facility] Comment on above: Performed By: #### A 1C #### [facility] [address] [place] [address] Dr. Mason Astudillo URINE CREAT 115.99 mg/dL Normal 20.00-300.0 0 [facility] Comment on above: Performed By: #### A 1C #### [facility] [address] [address] [address] 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 FINDINGS: RIGHT KIDNEY: Contains 2 benign-appearing cysts, largest is 2.8 cm. Nonobstructing 5 mm stone. Color Doppler demonstrates blood flow within the kidney. Normal echotexture without significant cortical thinning. Kidney: 11.4 x 4.5 x 5.2 cm LEFT KIDNEY: Contains a thinly septated 5.3 x 4.8 x 3.7 cm cyst, also seen on prior CT study. Nonobstructing 5 mm stone. Normal echotexture without significant cortical thinning. Color Doppler demonstrates blood flow within the kidney. Kidney: 11.3 x 5.6 x 4.4 cm BLADDER: No visible wall thickening, mass, or calculi. IMPRESSION: 1. No mass, hydronephrosis, or obstructive uropathy account for patient's symptoms. 2. Bilateral nonobstructing nephrolithiasis. 3. Bilateral chronic, benign-appearing cysts. Electronically authenticated by: BRISA SALAS Date: 2022-01-09 17:44 Normal [facility] FOLATE ([facility])on 2 Folate 11.0 ng/mL Normal >3.0 [facility] Comment on above: Result Comment: A se rum folate concentration of less than 3.1 ng/mL is considered to represent clinical deficiency. Performed By: #### P SAD #### [facility] [address] [place] [address] Dr. Mason Astudillo TRANSFERRINon 12-20-2021 Transferrin [Mass/Vol] 316 mg/dL Critically high 149-313 [facility] Comment on above: Performed By: #### A 1C #### [facility] [address] [place] [address] Dr. Mason Astudillo CBC AUTO DIFFon 12-18-2021 BASO # 0.0 103/ul Normal 0.0-0.1 [facility] Comment on above: Performed By: #### U A #### [facility] [address] [place] [address] Dr. Mason Astudillo Basophils/100 WBC (Bld) 0.3 % Normal 0.2-2.0 [facility] Comment on above: Performed By: #### U A #### [facility] [address] [place] [address] Dr. Mason Astudillo EO # 0.1 103/ul Normal 0.0-0.7 [facility] Comment on above: Performed By: #### U A #### [facility] [address] [place] [address] Dr. Mason Astudillo Eosinophils/100 WBC (Bld) 2.0 % Normal 0.9-7.0 [facility] Comment on above: Performed By: #### U A #### [facility] [address] [place] [address] Dr. Mason Astudillo Erythrocyte distribution width (RBC) [Ratio] 14.6 % Normal 11.0-15.0 [facility] Comment on above: Performed By: #### U A #### [facility] [address] [place] [address] Dr. Mason Astudillo Hematocrit (Bld) [Volume fraction] 35.6 % Critically low 42.0-54.0 [facility] Comment on above: Performed By: #### U A #### [facility] [address] [place] [address] Dr. Mason Astudillo Hemoglobin (Bld) [Mass/Vol] 10.7 g/dL Critically low 14.0-18.0 [facility] Comment on above: Performed By: #### U A #### [facility] [address] [place] [address] Dr. Mason Astudillo IG # 0.03 10e3/ul Normal 0.00-0.03 [facility] Comment on above: Performed By: #### U A #### [facility] [address] [place] [address] Dr. Mason Astudillo IG % 0.5 % Normal 0.0-0.5 [facility] Comment on above: Performed By: #### U A #### [facility] [address] [place] [address] Dr. Mason Astudillo LYMPH # 1.0 103/ul Critically low 1.2-3.8 [facility] Comment on above: Performed By: #### U A #### [facility] [address] [place] [address] Dr. Mason Astduillo Lymphocytes/100 WBC (Bld) 15.5 % Critically low 20.5-60.0 [facility] Comment on above: Performed By: #### U A #### [facility] [address] [place] [address] Dr. Mason Astudillo MANUAL DIFF REQ NO Normal [facility] Comment on above: Performed By: #### U A #### [facility] [address] [place] [address] Dr. Mason Astudillo MCH (RBC) [Entitic mass] 27.4 pg Normal 25.9-34.0 [facility] Comment on above: Performed By: #### U A #### [facility] [address] [address] [address] Mason Astudillo MCHC (RBC) [Mass/Vol] 30.1 g/dL Normal 29.9-35.2 [facility] Comment on above: Performed By: #### U A #### [facility] [address] [address] [address] Mason Astudillo MCV (RBC) [Entitic vol] 91.0 fL Normal 80.0-94.0 [facility] Comment on above: Performed By: #### U A #### [facility] [address] [address] [address] Mason Astudillo MONO # 0.5 103/ul Normal 0.3-0.8 [facility] Comment on above: Performed By: #### U A #### [facility] [address] [place] [address] Dr. Mason Astudillo Monocytes/100 WBC (Bld) 8.1 % Normal 1.7-12.0 [facility] Comment on above: Performed By: #### U A #### [facility] [address] [address] [address] Mason Astudillo NEUT # 4.5 103/ul Normal 1.4-6.5 [facility] Comment on above: Performed By: #### U A #### [facility] [address] [address] [address] Mason Astudillo Neutrophils/100 WBC (Bld) 73.6 % Normal 43.0-75.0 [facility] Comment on above: Performed By: #### U A #### [facility] [address] [address] [address] Mason Astudillo Platelet mean volume (Bld) [Entitic vol] 10.1 fL Normal 9.5-13.5 [facility] Comment on above: Performed By: #### U A #### [facility] [address] [address] [address] Mason Astudillo PLT 138 103/ul Critically low 150-450 [facility] Comment on above: Performed By: #### U A #### [facility] [address] [address] [address] Mason Astudillo RBC 3.91 106/ul Critically low 4.70-6.10 [facility] Comment on above: Performed By: #### U A #### [facility] [address] [address] [address] Mason Astudillo WBC 6.1 103/ul Normal 4.0-11.0 [facility] Comment on above: Performed By: #### U A #### [facility] [address] [place] [address] Dr. Mason Astudillo FERRITINon 12-18-2021 Ferritin [Mass/Vol] 16.0 ng/mL Critically low 26.0-388.0 [facility] Comment on above: Performed By: #### P OCGLUC #### [facility] [address] [place] [address] Dr. Mason Astudillo GLYCOHEMOGLOBIN A1Con 2021 ADA RECOMMENDATION SEE BELOW Normal [facility] Comment on above: Result Comment: ADA RECOMMENDED LIMIT 4.0 - 6.0 ADA THERAPEUTIC TARGET < 7.0 ACTION SUGGESTED > 7.0 Performed By: #### C BC #### [facility] [address] [place] [address] Dr. Mason Astudillo Glucose [Mass/Vol] 140 mg/dL Normal [facility] Comment on above: Performed By: #### C BC #### [facility] [address] [place] [address] Dr. Mason Astudillo HbA1c (Bld) [Mass fraction] 6.5 % Critically high 4.5-6.2 [facility] Comment on above: Performed By: #### C BC #### [facility] [address] [place] [address] Dr. Mason Astudillo IRON AND TIBCon 12-18-2021 % SATURATION 5.7 % Normal [facility] Comment on above: Performed By: #### P OCGLUC #### [facility] [address] [place] [address] Dr. Mason Astudillo Iron [Mass/Vol] 23.0 ug/dL Critically low 65.0-175.0 [facility] Comment on above: Performed By: #### P OCGLUC #### [facility] [address] [address] [address] Mason Astudillo TIBC DIRECT 413.0 ug/dL Normal 250.0-450.0 [facility] Comment on above: Performed By: #### P OCGLUC #### [facility] [address] [place] [address] Dr. Mason Astudillo PROF CHEM 8 (BAS METB)on Anion gap [Moles/Vol] 13.7 mmol/L Normal [facility] Comment on above: Performed By: #### P SAD #### [facility] [address] [place] [address] Dr. Mason Astudillo Calcium [Mass/Vol] 8.2 mg/dL Critically low 8.5-10.1 [facility] Comment on above: Performed By: #### P SAD #### [facility] [address] [place] [address] Dr. Mason Astudillo Chloride [Moles/Vol] 105 mmol/L Normal 98-107 [facility] Comment on above: Performed By: #### P SAD #### [facility] [address] [place] [address] Dr. Mason Astudillo CO2 [Moles/Vol] 27.1 mmol/L Normal 21.0-32.0 [facility] Comment on above: Performed By: #### P SAD #### [facility] [address] [place] [address] Dr. Mason Astudillo Creatinine [Mass/Vol] 1.32 mg/dL Critically high 0.70-1.30 [facility] Comment on above: Performed By: #### P SAD #### [facility] [address] [place] [address] Dr. Mason Astudillo EGFR-AF PAKISTANI >60 Normal >=60 [facility] Comment on above: Performed By: #### P SAD #### [facility] [address] [place] [address] Dr. Mason Astudillo EGFR-NON AF PAKISTANI 52 mL/min/1.73m2 Critically low >=60 [facility] Comment on above: Performed By: #### P SAD #### [facility] [address] [address] [address] Mason Astudillo Glucose [Mass/Vol] 121 mg/dL Critically high 74-106 [facility] Comment on above: Performed By: #### P SAD #### [facility] [address] [address] [address] Mason Astudillo Potassium [Moles/Vol] 3.8 mmol/L Normal 3.5-5.1 [facility] Comment on above: Performed By: #### P SAD #### [facility] [address] [place] [address] Dr. Mason Astudillo Sodium [Moles/Vol] 142 mmol/L Normal 136-145 [facility] Comment on above: Performed By: #### P SAD #### [facility] [address] [place] [address] Dr. Mason Astudillo Urea nitrogen [Mass/Vol] 27.0 mg/dL Critically high 7.0-18.0 [facility] Comment on above: Performed By: #### P SAD #### [facility] [address] [place] [address] Dr. Mason Astudillo Urea nitrogen/Creatinine [Mass ratio] 20.5 mg/mg Normal [facility] Comment on above: Performed By: #### P SAD #### [facility] [address] [place] [address] Dr. Mason Astudillo VITAMIN B12on 12-18-2021 Cobalamin (Vitamin B12) [Mass/Vol] 423.0 pg/mL Normal 193.0-986.0 [facility] Comment on above: Performed By: #### P OCGLUC #### [facility] [address] [place] [address] Dr. Mason Astudillo CBC AUTO DIFFon 11-08-2021 BASO # 0.0 103/ul Normal 0.0-0.1 [facility] Comment on above: Performed By: #### U A #### [facility] [address] [place] [address] Dr. Mason Astudillo Basophils/100 WBC (Bld) 0.3 % Normal 0.2-2.0 [facility] Comment on above: Performed By: #### U A #### [facility] [address] [place] [address] Dr. Mason Astudillo EO # 0.2 103/ul Normal 0.0-0.7 [facility] Comment on above: Performed By: #### U A #### [facility] [address] [place] [address] Dr. Mason Astudillo Eosinophils/100 WBC (Bld) 2.6 % Normal 0.9-7.0 [facility] Comment on above: Performed By: #### U A #### [facility] [address] [place] [address] Dr. Mason Astudillo Erythrocyte distribution width (RBC) [Ratio] 15.1 % Critically high 11.0-15.0 [facility] Comment on above: Performed By: #### U A #### [facility] [address] [place] [address] Dr. Mason Astudillo Hematocrit (Bld) [Volume fraction] 36.2 % Critically low 42.0-54.0 [facility] Comment on above: Performed By: #### U A #### [facility] [address] [place] [address] Dr. Mason Astudillo Hemoglobin (Bld) [Mass/Vol] 11.7 g/dL Critically low 14.0-18.0 [facility] Comment on above: Performed By: #### U A #### [facility] [address] [place] [address] Dr. Mason Astudillo IG # 0.04 10e3/ul Critically high 0.00-0.03 [facility] Comment on above: Performed By: #### U A #### [facility] [address] [place] [address] Dr. Mason Astudillo IG % 0.7 % Critically high 0.0-0.5 [facility] Comment on above: Performed By: #### U A #### [facility] [address] [place] [address] Dr. Mason Astudillo LYMPH # 0.9 103/ul Critically low 1.2-3.8 [facility] Comment on above: Performed By: #### U A #### [facility] [address] [place] [address] Dr. Mason Astudillo Lymphocytes/100 WBC (Bld) 14.4 % Critically low 20.5-60.0 [facility] Comment on above: Performed By: #### U A #### [facility] [address] [place] [address] Dr. Mason Astuidllo MANUAL DIFF REQ NO Normal [facility] Comment on above: Performed By: #### U A #### [facility] [address] [place] [address] Dr. Mason Astudillo MCH (RBC) [Entitic mass] 29.8 pg Normal 25.9-34.0 [facility] Comment on above: Performed By: #### U A #### [facility] [address] [place] [address] Dr. Mason Astudillo MCHC (RBC) [Mass/Vol] 32.3 g/dL Normal 29.9-35.2 [facility] Comment on above: Performed By: #### U A #### [facility] [address] [place] [address] Dr. Mason Astudillo MCV (RBC) [Entitic vol] 92.3 fL Normal 80.0-94.0 [facility] Comment on above: Performed By: #### U A #### [facility] [address] [place] [address] Dr. Mason Astudillo MONO # 0.5 103/ul Normal 0.3-0.8 [facility] Comment on above: Performed By: #### U A #### [facility] [address] [place] [address] Dr. Mason Astudillo Monocytes/100 WBC (Bld) 7.5 % Normal 1.7-12.0 [facility] Comment on above: Performed By: #### U A #### [facility] [address] [place] [address] Dr. Mason Astudillo NEUT # 4.5 103/ul Normal 1.4-6.5 [facility] Comment on above: Performed By: #### U A #### [facility] [address] [address] [address] Mason Astudillo Neutrophils/100 WBC (Bld) 74.5 % Normal 43.0-75.0 [facility] Comment on above: Performed By: #### U A #### [facility] [address] [address] [address] Mason Astudillo Platelet mean volume (Bld) [Entitic vol] 10.1 fL Normal 9.5-13.5 [facility] Comment on above: Performed By: #### U A #### [facility] [address] [place] [address] Dr. Mason Astudillo PLT 132 103/ul Critically low 150-450 [facility] Comment on above: Performed By: #### U A #### [facility] [address] [place] [address] Dr. Mason Astudillo RBC 3.92 106/ul Critically low 4.70-6.10 [facility] Comment on above: Performed By: #### U A #### [facility] [address] [address] [address] Mason Astudillo WBC 6.0 103/ul Normal 4.0-11.0 [facility] Comment on above: Performed By: #### U A #### [facility] [address] [place] [address] Dr. Mason Astudillo PROF CHEM 8 (BAS METB)on Anion gap [Moles/Vol] 8.9 mmol/L Normal [facility] Comment on above: Performed By: #### B MP #### [facility] [address] [place] [address] Dr. Mason Astudillo Calcium [Mass/Vol] 7.9 mg/dL Critically low 8.5-10.[address] [facility] Comment on above: Performed By: #### B MP #### [facility] [address] [place] [address] Dr. Mason Astudillo Chloride [Moles/Vol] 101 mmol/L Normal 98-107 [facility] Comment on above: Performed By: #### B MP #### [facility] [address] [address] [address] Mason Astudillo CO2 [Moles/Vol] 28.3 mmol/L Normal 21.0-32.0 [facility] Comment on above: Performed By: #### B MP #### [facility] [address] [address] [address] Mason Astudillo Creatinine [Mass/Vol] 1.22 mg/dL Normal 0.70-1.30 [facility] Comment on above: Performed By: #### B MP #### [facility] [address] [address] [address] Mason Astudillo EGFR-AF PAKISTANI >60 Normal >=60 [facility] Comment on above: Performed By: #### B MP #### [facility] [address] [address] [address] Mason Astudillo EGFR-NON AF PAKISTANI 57 mL/min/1.73m2 Critically low >=60 [facility] Comment on above: Performed By: #### B MP #### [facility] [address] [address] [address] Mason Astudillo Glucose [Mass/Vol] 167 mg/dL Critically high 74-106 [facility] Comment on above: Performed By: #### B MP #### [facility] [address] [address] [address] Mason Astudillo Potassium [Moles/Vol] 3.2 mmol/L Critically low 3.5-5.1 [facility] Comment on above: Performed By: #### B MP #### [facility] [address] [address] [address] Mason Astudillo Sodium [Moles/Vol] 135 mmol/L Critically low 136-[address] [facility] Comment on above: Performed By: #### B MP #### [facility] [address] [address] [address] Mason Astudillo Urea nitrogen [Mass/Vol] 23.0 mg/dL Critically high 7.0-18.0 [facility] Comment on above: Performed By: #### B MP #### [facility] [address], [place] [address] Dr. Mason Astudillo Urea nitrogen/Creatinine [Mass ratio] 18.9 mg/mg Normal [facility] Comment on above: Performed By: #### B MP #### [facility] [address], [place] [address] Dr. Mason Astudillo XR CHEST 2 Von 11-08-2021 XR CHEST 2 V EXAM: XR CHEST 2 V HISTORY: Chronic obstructive lung disease COMPARISON: 03/10/2021 TECHNIQUE: PA and lateral chest x-ray FINDINGS: The heart is not enlarged and the vasculature is not distended. No acute infiltrate, effusion or pneumothorax is identified. Diffuse osteopenia is noted. IMPRESSION: No acute infiltrate or evidence of cardiac decompensation. The overall appearance of the chest is unchanged. Electronically authenticated by: BRITTANIE CASILLAS Date: 2021-11-08 14:01 Normal [facility] Vital Signs Date Time Vital Sign Value Performing Clinician Facility 12-23-2022 13:13-0400 Blood Pressure Location Mekhi VERGARA [facility] 12-23-2022 13:13-0400 Diastolic blood pressure 68 mm[Hg] Mekhi VERGARA [facility] 12-23-2022 13:13-0400 Heart rate 70 /min Mekhi VERGARA [facility] 12-23-2022 13:13-0400 Systolic blood pressure 120 mm[Hg] Mekhi VERGARA [facility] 05-10-2022 10:43-0400 Body height 177.8 cm Pacc 6 Work Phone: [facility] 05-10-2022 10:43-0400 Body temperature 97.81 [degF] Pacc 6 Work Phone: [facility] 05-10-2022 10:43-0400 Body weight 86.18 kg Pacc 6 Work Phone: [facility] 05-10-2022 10:43-0400 Diastolic blood pressure 75 mm[Hg] Pacc 6 Work Phone: [facility] 05-10-2022 10:43-0400 Heart rate 86 /min Pacc 6 Work Phone: [facility] 05-10-2022 10:43-0400 SaO2% (BldA) [Mass fraction] 97 % Pacc 6 Work Phone: [facility] 05-10-2022 10:43-0400 Systolic blood pressure 124 mm[Hg] Pacc 6 Work Phone: [facility] 04-22-2022 15:42-0400 Blood Pressure Location Mekhi VERGARA [facility] 04-22-2022 15:42-0400 Diastolic blood pressure 64 mm[Hg] Mekhi VERGARA [facility] 04-22-2022 15:42-0400 Heart rate 76 /min Mekhidominique VERGARA [facility] 04-22-2022 15:42-0400 Respiratory rate 60 /min Mekhidominique VERGARA [facility] 04-22-2022 15:42-0400 Systolic blood pressure 117 mm[Hg] Mekhi VERGARA [facility] 04-17-2022 12:55-0400 Body height 177.8 cm Tristin Wilcox MD, PhD Work Phone: [facility] 04-17-2022 12:55-0400 Body temperature 98.4 [degF] Tristin Wilcox MD, PhD Work Phone: [facility] 04-17-2022 12:55-0400 Body weight 86.18 kg Tristin Wilcox MD, PhD Work Phone: [facility] 04-17-2022 12:55-0400 Diastolic blood pressure 74 mm[Hg] Tristin Wilcox MD, PhD Work Phone: [facility] 04-17-2022 12:55-0400 Heart rate 70 /min Tristin Wilcox MD, PhD Work Phone: [facility] 04-17-2022 12:55-0400 Respiratory rate 16 /min Tristin Wilcox MD, PhD Work Phone: [facility] 04-17-2022 12:55-0400 SaO2% (BldA) [Mass fraction] 99 % Tristin Wilcox MD, PhD Work Phone: [facility] 04-17-2022 12:55-0400 Systolic blood pressure 127 mm[Hg] Tristin Wilcox MD, PhD Work Phone: [facility] 10-16-2021 14:39-0400 Blood Pressure Location Yenni N[facility] 10-16-2021 14:39-0400 Diastolic blood pressure 76 mm[Hg] Yenni NILL [facility] 10-16-2021 14:39-0400 Heart rate 68 /min Yenni NILL [facility] 10-16-2021 14:39-0400 Respiratory rate 16 /min Yenni NILL [facility] 10-16-2021 14:39-0400 Systolic blood pressure 106 mm[Hg] Yenni NILL [facility] Encounters Encounter Date Encounter Type Care Provider Facility Start: 07-03-2023 End: 07-03-2023 ambulatory LEIX Not Available Start: 06-20-2023 End: 06-21-2023 ambulatory Mekhi VERGARA Facility:[facility] Start: 06-18-2023 End: 06-18-2023 ambulatory SHAIKH YOLIPIETRO Not Available Start: 06-10-2023 ambulatory Mekhi VERGARA Facility :[facility] Start: 06-09-2023 End: 06-10-2023 ambulatory Mallorie Joy MD Facility: [facility] Start: 06-05-2023 End: 06-05-2023 ambulatory CARMINA CROOK Not Available Start: 05-27-2023 End: 05-27-2023 ambulatory NITESH GANT Not Available Start: 05-20-2023 End: 05-20-2023 ambulatory CARMINA CROOK Not Available Start: 05-05-2023 End: 05-06-2023 ambulatory Mallorie Joy MD Facility: [facility] Start: 04-21-2023 End: 04-22-2023 ambulatory Mallorie Vallesytautelizabeth Joy MD Facility: [facility] Start: 03-31-2023 End: 04-01-2023 ambulatory Andisabelus Haiytautelizabeth Joy MD Facility: [facility] Start: 03-24-2023 End: 03-25-2023 ambulatory Anduj Vallesyttonya Joy MD Facility: [facility] Start: 03-07-2023 End: 03-07-2023 ambulatory [facility] Start: 02-03-2023 End: 02-04-2023 ambulatory Mallorie Vallesyttonya Joy MD Facility:[facility] Start: 12-23-2022 End: 12-24-2022 ambulatory [facility] Start: 12-23-2022 End: 12-23-2022 Patient encounter procedure Mekhi VERGARA [facility] Start: 11-21-2022 ambulatory NARENDRANATH LAKSHMIPATHY . Facility: Start: 10-31-2022 ambulatory NARENDRANATH LAKSHMIPATHY . Facility: Start: 10-29-2022 End: 10-29-2022 ambulatory NARENDRANATH LAKSHMIPATHY . Facility:[facility] Start: 10-24-2022 End: 10-25-2022 ambulatory NARENDRANATH LAKSHMIPATHY . Facility: Start: 10-18-2022 End: 10-18-2022 ambulatory [facility] Start: 10-11-2022 End: 10-12-2022 ambulatory [facility] Start: 09-11-2022 End: 09-11-2022 ambulatory [facility] Start: 08-28-2022 Evaluation and manag ement of inpatient [facility] Start: 08-27-2022 Evaluation and manag ement of inpatient [facility] Start: 08-27-2022 End: 08-29-2022 Evaluation and management of inpatient [facility] Start: 08-20-2022 End: 08-21-2022 ambulatory [facility] Start: 08-20-2022 End: 08-20-2022 ambulatory [facility] Start: 08-16-2022 End: 08-17-2022 ambulatory [facility] Start: 08-06-2022 End: 08-07-2022 ambulatory Mekhi VERGARA [facility] Start: 08-06-2022 End: 08-06-2022 Patient encounter procedure Mekhi VERGARA [facility] Start: 08-05-2022 End: 08-05-2022 ambulatory [facility] Start: 07-30-2022 End: 07-31-[address] PAULINE WINSTON . Facility: Start: 07-09-2022 End: 07-09-2022 ambulatory SHAIKH Milena ELLIOTT Facility:[facility] Start: 06-25-2022 End: 06-26-2022 ambulatory SHAIKH Milena ELLIOTT Facility:[facility] Start: 06-24-2022 End: 06-24-2022 ambulatory MARITZA [facility] Start: 05-27-2022 End: 05-27-2022 ambulatory [facility] Start: 05-17-2022 End: 05-17-2022 ambulatory TRISTIN WILCOX Facility:[facility] Start: 05-16-2022 Telephone encounter Maria Luisa Garcia RN C olorectal Surgery Comment on above: Grab Setter - O ther Start: 05-10-2022 End: 05-11-2022 ambulatory TRISTIN WILCOX Facility:[facility] Start: 05-10-2022 Encounter for other preprocedural examination TRISTINPortillo WILCOX [facility] Start: 05-10-2022 End: 05-10-2022 [address] [address] [facility] Work Phone: Pre Anesthesia Comment on above: Pre-op evaluation (P rimary Dx); Type 2 diabetes mellitus without complication, without long-term current use of insulin (HCC); Radiculopathy, cervical region; Dementia in other diseases classified elsewhere, unspecified severity, without behavioral disturbance, psychotic disturbance, mood disturbance, and anxiety (HCC); Intracranial hemorrhage ([facility]); Essential (primary) hypertension; Sleep apnea, unspecified type; Chronic obstructive pulmonary disease, unspecified COPD type (HCC); Arteriosclerosis of coronary artery; PAF (paroxysmal atrial fibrillation) (HCC); History of DVT (deep vein thrombosis); Gastroesophageal reflux disease with esophagitis, unspecified whether hemorrhage; Chronic kidney disease, stage 4 (severe) ([facility]); Calculus of kidney; Hypothyroidism unspecified; Iron deficiency anemia due to chronic blood loss; History of prostate cancer; History of primary malignant neoplasm of urinary bladder; Gout, unspecified cause, unspecified chronicity, unspecified site Patient Education Start: 05-10-2022 End: 05-11-2022 ambulatory TRISTIN WILCOX Facility:[facility] Start: 05-10-2022 End: 05-10-2022 Admission to establishment Pacc Main 6 Work Phone: [facility] Start: 05-10-2022 End: 05-10-2022 Preprocedural examination done Pac Main 6 Work Phone: Pre Anesthesia Start: 05-09-2022 End: 05-10-2022 ambulatory DE LA O H FAWWAD Facility:[facility] Start: 05-01-2022 End: 05-01-2022 ambulatory FRANKY VERONICA Facility:[facility] Start: 04-25-2022 Telephone encounter Tristin Ruiz Colorectal Surgery Comment on above: Appointment Start: 04-24-2022 Telephone encounter Marika Crabtree Colorectal Surgery Comment on above: Grab Setter - O ther Start: 04-22-2022 End: 04-22-2022 Patient encounter procedure Mekhi VERGARA [facility] Start: 04-18-2022 End: 04-19-2022 ambulatory DE LA O H FAWWAD Facility:[facility] Start: 04-17-2022 End: 04-18-2022 ambulatory TRISTIN WILCOX Facility:[facility] Start: 04-17-2022 End: 04-17-2022 Patient encounter procedure Tristin Wilcox MD, PhD Work Phone: Colorectal Surgery Comment on above: Fourth degree hemorr hoids (Primary Dx) Start: 04-16-2022 End: 04-16-2022 ambulatory DE LA O H FAWWAD Facility:[facility] Start: 04-11-2022 End: 04-12-2022 ambulatory DE LA O H FAWWAD Facility:[facility] Start: 04-11-2022 End: 04-12-2022 ambulatory CALVIN Maradiaga Facility:[facility] Start: 03-26-2022 End: 03-27-2022 ambulatory DE LA O H FAWWAD Facility:[facility] Start: 03-18-2022 End: 03-19-2022 ambulatory DE LA O H FAWWAD Facility:[facility] Start: 03-18-2022 End: 03-18-2022 ambulatory [facility] Start: 02-18-2022 End: 02-19-2022 ambulatory DE LA O Milena KENTWAD Facility:[facility] Start: 02-14-2022 End: 02-15-2022 ambulatory CALVIN MOREJON . Facility:[facility] Start: 02-02-2022 End: 02-06-2022 Evaluation and management of inpatient DE LA O H YOLIWAD Facility:[facility] Start: 01-11-2022 End: 01-12-2022 ambulatory DE LA O H FAWWAD Facility:[facility] Start: 01-10-2022 End: 01-11-2022 ambulatory CALVIN MOREJON . Facility:[facility] Start: 01-09-2022 End: 01-10-2022 ambulatory DE LA O H FALindseyWAD Facility:[facility] Start: 12-18-2021 End: 12-19-2021 ambulatory H FALindseyWAD Facility:[facility] Start: 12-13-2021 End: 12-13-2021 Patient encounter procedure 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 [facility] [place] Start: 11-29-2021 End: 11-30-2021 ambulatory CALVIN MOREJON . Facility:[facility] Start: 11-27-2021 End: 11-27-2021 Patient encounter procedure 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 General Surgery Pratima/Faraz Waterman Start: 11-21-2021 End: 11-22-2021 ambulatory DE LA O Milena KENTWAD Facility:[facility] Start: 11-17-2021 ambulatory DE LA O H FALindseyWAD Facilit y:[facility] Start: 11-09-2021 Encounter for preprocedural cardiovascular examination DR YENNI STANLEY . [facility] Start: 11-09-2021 Encounter for preprocedural laboratory examination DR YENNI STANLEY . [facility] Start: 11-08-2021 End: 11-09-[address] NONE LISTED REQUEST Facility:[facility] Start: 11-08-2021 End: 11-09-2021 Encounter for preprocedural cardiovascular examination DR NONE LISTED REQUEST Facility:[facility] Start: 10-16-2021 End: 10-16-2021 Patient encounter procedure 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 General Surgery Nill/Faraz Waterman Start: 10-09-2021 End: 10-09-2021 Off-Site Iraida James [facility] Start: 01-20-2017 End: 01-21-2017 Ambulatory DEFAULT PHYSICIAN Facility:[facility] Procedures Date Procedure Procedure Detail Performing Clinician Start: 08-05-2022 Cystoscopy Mekhi VERGARA Start: 05-10-2022 Antibody screen TRISTINPortillo WILCOX Comment on above: Order Comment: Specimen Type: BLOOD SPEC IMENOrdering Facility: [facility] Address: [address] [place] [address] Performed By: #### T [id number] ####CC [facility] BLOOD BANKCLIA [id number] [address] Start: 05-09-2022 PSA screening SHAIKH LEXI Comment on above: Performed By: #### A1C #### [facility] [address] [place] [address] Dr. Mason Astudillo Start: 04-18-2022 PSA screening SHAIKH LEXI Comment on above: Performed By: #### PSAD #### [facility] [address] [place] [address] Dr. Mason Astudillo Start: 04-17-2022 Sigmoidoscopy flx dx w/collj spec br/wa if pfrmd [facility] Provider Start: 02-03-2022 Transfusion of Nonautologous Red Blood Cells into Peripheral Vein, Percutaneous Approach SHAIKH LEXI Start: 11-21-2021 Repair of right inguinal hernia 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 Start: 09-21-2021 Colonoscopy Iraida James Start: 07-30-2021 Esophagogastroduodenoscopy Iraida wade Start: 06-14-2019 Cystoscopy Iraida James Start: 08-11-2018 Cystoscopy Iraida James Start: 01-29-2018 Cystoscopy Iraida James Start: 07-08-2017 Cystoscopic removal of ureteric stent Iraida James Start: 06-14-2017 Ureteroscopy Iraida James Start: 04-21-2017 Cystoscopy Iraida James Start: 01-06-2017 Cystoscopy Iraida James Start: 10-21-2016 Cystoscopy Iraida James Start: 07-18-2016 Transurethral resection of bladder neoplasm Iraida James Start: 06-03-2016 Cystoscopy Iraida James Start: 04-06-2003 Implantation of radioactive seed into prostate Iraida James Start: 01-25-2003 Transrectal biopsy of prostate using ultrasound guidance Iraida James Arthroplasty of knee Yenni NEALL Comment on above: left Craniotomy and evacu ation of blood clot Yenni NILL Discectomy of spine Yenni NILL Extraction of cataract Justin el NILL Comment on above: bilateral History of hernia repair Fabio hael NILL History of surgical procedure on cervical spine Mekhi URSULA Parathyroidectomy Yenni NI LL Radiofrequency ablation Aba ael NILL Comment on above: C3-C6 Tonsillectomy and adenoidectomy Yenni NEALGinger 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 mueller URSULA Plan of Treatment Date Care Activity Detail Author Start: 11-07-2022 Hemoglobin A1c/Hemoglobin.total in Blood HBA1C [facility] Start: 05-10-2022 End: 07-10-2022 Hemoglobin A1c in Blood [facility] Work Phone: Comment on above: Expected: 05/10/2022 , Expires: 07/10/2022 Start: 03-07-2022 Influenza vaccination INFLUENZA (#1) [facility] Start: 08-21-2021 COVID-19 VACCINE (4 - Booster for Moderna series) COVID-19 VACCINE (4 - Booster for Moderna series) [facility] Start: 07-07-2021 ADVANCE DIRECTIVE DISCUSSION ADVANCE DIRECTIVE DISCUSSION [facility] Start: 07-07-2021 DEPRESSION ASSESSMENT DEPRESSION ASS ESSMENT [facility] Start: 2001 PNEUMOCOCCAL: 65+ (1 - PCV) PNEUMOCOCCAL: 65+ (1 - PCV) [facility] Start: 1986 SHINGRIX VACCINE (1 of 2) SHINGRIX VACCINE (1 of 2) [facility] Start: 1981 DIABETES SCREEN DIABETES SCREEN [facility] Start: 12-17-1955 Urine microalbumin profile DTAP,TDAP,TD (1 - Tdap) [facility] Start: 1954 Hepatitis B surface antibody level LDL CHOLESTEROL [facility] Start: 1954 SPIROMETRY SPIROMETRY [facility] Start: 1946 3 comp foot exam completed DIABETIC FOOT EXAM [facility] Start: 1946 Hepatitis B screening URINE ALBUMIN:CREATININE RATIO [facility] Start: 1946 Hepatitis C antibody , confirmatory test DILATED RETINAL EXAM [facility] Start: 1942 PNEUMOCOCCAL: 65+ (1 - PCV) PNEUMOCOCCAL: 65+ (1 - PCV) [facility] Start: 1941 Hemoglobin A1c/Hemoglobin.total in Blood HBA1C [facility] Immunizations Immunization Date Immunization Notes Care Provider Boone horton 05-14-2022 influenza virus vacc ine, unspecified formulation Mekhidominique VERGARA [facility] 06-26-2021 SARS-CoV-2 (COVID-19 ) mRNA-1273 vaccine Mekhi VERGARA [facility] 04-06-2021 influenza virus vacc ine, unspecified formulation Iraida James [facility] 03-28-2021 influenza virus vacc ine, unspecified formulation Mekhi VERGARA [facility] 02-04-2021 influenza virus vacc ine, unspecified formulation Iraida James [facility] 09-12-2020 SARS-CoV-2 (COVID-19 ) mRNA-1273 vaccine Mekhidominique VERGARA [facility] 08-14-2020 SARS-CoV-2 (COVID-19 ) mRNA-1273 vaccine Mekhi VERGARA [facility] 05-25-2020 pneumococcal polysaccharide vaccine, 23 valent Mekhi VERGARA [facility] 05-25-2020 zoster vaccine recombinant Mekhi VERGARA [facility] 02-25-2020 influenza virus vacc ine, unspecified formulation Mekhi VERGARA [facility] 02-25-2020 zoster vaccine recombinant Mekhi VERGARA [facility] 05-11-2019 tetanus toxoid, redu nimesh diphtheria toxoid, and acellular pertussis vaccine, adsorbed Mekhi VERGARA [facility] 03-23-2019 influenza virus vacc ine, unspecified formulation Mekhi VERGARA [facility] 03-23-2019 pneumococcal conjuga te vaccine, 13 valent Mekhidominique VERGARA [facility] 04-30-2018 influenza virus vacc ine, unspecified formulation Mekhi VERGARA [facility] 02-13-2017 influenza virus vacc ine, unspecified formulation Mekhi VERGARA [facility] 04-19-2015 influenza virus vacc ine, unspecified formulation Mekhidominique VERGARA [facility] 04-19-2015 pneumococcal polysaccharide vaccine, 23 valent Mekhidominique VERGARA [facility] 04-13-2015 influenza virus vacc ine, unspecified formulation Mekhi VERGARA [facility] 04-22-2007 influenza, whole Mekhi PAUL THOMAS [facility] Payers Date Payer Category Payer Unknown 2022 Unknown [id number] 2013 Private Health Insurance [facility] AAR SUPPLEMENT [id number] 2013-Present [phone] [address] [place] [address] Indemnity [id number] 2001 Medicare [id number] 1959 Medicare [id number] 1959 Unknown [id number] 1936 Unknown [id number] 2.16.840.1.698623.3.579.2 .593 1936 Unknown [id number] 2.16.840.1.627340.3.579.2 .593 1936 Unknown [id number] 2.16.840.1.093756.3.579.2 .593 1936 Unknown [id number] 2.16.840.1.871593.3.579.2 .593 1936 Unknown [id number] 2.16.840.1.353516.3.579.2 .593 1936 Unknown [id number] 2.16.840.1.678989.3.579.2 .593 1936 Unknown [id number] 2.16.840.1.179716.3.579.2 .593 1936 Unknown [id number] 2.16.840.1.749984.3.579.2 .593 1936 Unknown [id number] 2.16.840.1.264571.3.579.2 .593 1936 Unknown [id number] 2.16.840.1.837389.3.579.2 .593 1936 Unknown [id number] 2.16.840.1.195455.3.579.2 .593 1936 Unknown [id number] 2.16.840.1.891964.3.579.2 .593 1936 Unknown [id number] 2.16.840.1.271796.3.579.2 .593 1936 Unknown [id number] 2.16.840.1.451944.3.579.2 .593 1936 Unknown [id number] 2.16.840.1.226263.3.579.2 .593 1936 Unknown [id number] 2.16.840.1.613544.3.579.2 .593 1936 Unknown [id number] 2.16.840.1.891590.3.579.2 .593 1936 Unknown [id number] 2.16.840.1.825501.3.579.2 .593 1936 Unknown [id number] 2.16.840.1.250247.3.579.2 .593 1936 Unknown [id number] 2.16.840.1.325555.3.579.2 .593 1936 Unknown [id number] 2.16.840.1.045736.3.579.2 .593 1936 Unknown [id number] 2.16.840.1.985482.3.579.2 .593 1936 Unknown [id number] 2.16.840.1.156851.3.579.2 .593 1936 Unknown [id number] 2.16.840.1.499621.3.579.2 .593 1936 Unknown [id number] 2.16.840.1.350154.3.579.2 .593 1936 Unknown [id number] 2.16.840.1.927494.3.579.2 .593 1936 Unknown [id number] 2.16.840.1.882013.3.579.2 .196 1936 Unknown [id number] 2.16.840.1.596628.3.579.2 .196 1936 Unknown [id number] 2.16.840.1.606043.3.579.2 .196 1936 Unknown [id number] 2.16.840.1.410977.3.579.2 .196 1936 Unknown [id number] 2.16.840.1.868430.3.579.2 .196 1936 Unknown [id number] 2.16.840.1.093734.3.579.2 .196 1936 Unknown [id number] 2.16.840.1.793027.3.579.2 .727 1936 Unknown [id number] 2.16.840.1.742252.3.579.2 .727 1936 Unknown [id number] 2.16.840.1.275091.3.579.2 .727 1936 Unknown [id number] 2.16.840.1.922411.3.579.2 .1259 1936 Unknown [id number] 2.16.840.1.687201.3.579.2 .1259 1936 Unknown [id number] 2.16.840.1.341645.3.579.2 .1259 1936 Unknown [id number] 2.16.840.1.292650.3.579.2 .1259 1936 Unknown [id number] 2.16.840.1.096852.3.579.2 .1259 Social History Date Type Detail Facility Start: 10-09-2021 End: 12-23-2022 Tobacco smoking status Never smoked tobacco (finding) [facility] Sex Assigned At Male [facility] Tobacco smoking status Never [facility] [place] Start: 04-17-2022 Tobacco use and exposure Smokeless tobacco non-user [facility] Start: 04-17-2022 End: 05-10-2022 Alcohol intake Current drinker of alcohol (finding) [facility] Start: 04-17-2022 Alcohol Comment very occasionally [facility] Start: 1935 Sex Assigned At Not on file [facility] Start: 04-07-2022 End: 05-10-2022 Exposure to SARS-CoV-2 (event) Not sure [facility] Start: 05-10-2022 Alcohol Comment Rarely [facility] Functional Status Date Assessment Result Facility 12-23-2022 Functional Status N/A [facility] 08-01-2022 Functional Status N/A [facility] 04-22-2022 Functional Status N/A [facility] Clinical Notes 10-09-2021 to 03-07-2023 Telephone Encounter - Maria Luisa Garcia RN - 05/16/2022 10:17 AM Darline Arriaga RN - 05/10/2022 2:13 PM Sindi Downing PA-C - 05/10/2022 10:50 AM EDTPatient Instructions Note Date & Type Note Facility 03-07-2023 Note Watchman implant 08/08 Continue ASA for lifelong, may stop plavix being that > 6 months since implantation No need for Antibiotic prophylaxis at this time [facility] 03-07-2023 Note Coronary artery dise ase is stable Continue GDMT- ASA, lipitor, metoprolol continue risk factor modifications- heart healthy diet, regular exercise as tolerated and continue all medications. [facility] 03-07-2023 Note Hypertension is well controlled Continue all meds [facility] 03-07-2023 Note Continue lipitor [facility] 03-07-2023 Note [id number] VASc= 4 No anticoagulation s/p watchman implantation Rate remains controlled metoprolol and diltiazem [facility] 03-07-2023 Note Patient here for 6 m o follow up s/p Watchman implant. Doing ok from cardiac standpoint. Denies chest pain, SOB, and palpitations. Still on Plavix as of now. Review of Systems Cardiovascular: Positive for leg swelling. Hematologic/Lymphatic: Negative. Musculoskeletal: Positive for arthritis, back pain, joint pain and myalgias. All other systems reviewed and are negative. [facility] 03-07-2023 Note [facility] CARDIOLOGY PROGR ESS NOTE HPI: Ben Guadalupe is a 87 y.o. male here for routine F/U a fib s/p watchman implant, CAD, HTN, HPL Patient here for 6 mo follow up s/p Watchman implant. Doing ok from cardiac standpoint. Denies chest pain, SOB, and palpitations. Still on Plavix as of now. Denied any bleeding tendencies. Overall from a cardiac standpoint states he is feeling well Denied chest pain, shortness of breath, orthopnea and states he f/U with therapy for BLE leg wraps for swelling Review of Systems Cardiovascular: Positive for leg swelling. Hematologic/Lymphatic: Negative. Musculoskeletal: Positive for arthritis, back pain, joint pain and myalgias. All other systems reviewed and are negative. Visit Vitals BP 97/65 (BP Location: Right arm, Patient Position: Sitting) Pulse 82 Ht 1.803 m (5' 11 ) Wt 80.7 kg (178 lb) SpO2 98% BMI 24.83 kg/m??? Smoking Status Never BSA 2.01 m??? Allergies Allergen Reactions Oxycodone-Acetaminophen Other reaction(s): vomiting Tizanidine Hallucinations Tramadol Hallucinations Medications: Current Outpatient Medications on File Prior to Visit Medication Sig Dispense Refill albuterol 90 mcg/actuation inhaler inhale 1 puff by mouth and INTO THE LUNGS twice a day if needed allopurinol (Zyloprim) 300 mg tablet Take 1 tablet by mouth in the morning. aspirin 81 mg EC tablet Take 1 tablet by mouth in the evening. atorvastatin (Lipitor) 40 mg tablet Take 1 tablet (40 mg) by mouth at bedtime. 90 tablet 3 baclofen (Lioresal) 10 mg tablet Take 1 tablet by mouth at bedtime. cholecalciferol (Vitamin D-3) 25 MCG (1000 UT) capsule Take 2 capsules every day by oral route. dapagliflozin (Farxiga) 10 mg Take 10 mg by mouth once daily as directed. dilTIAZem CD (Cardizem CD) 180 mg 24 hr capsule Take 1 capsule (180 mg) by mouth in the morning. 90 capsule 3 donepezil (Aricept) 10 mg tablet Take 1 tablet by mouth in the morning. dorzolamide-timoloL (Cosopt) 22.3-6.8 mg/mL ophthalmic solution Administer 1 drop into both eyes in the morning and at bedtime. famotidine (Pepcid) 20 mg tablet Take 20 mg by mouth in the morning. ferrous sulfate 325 (65 Fe) MG tablet Take 65 mg by mouth every other day. furosemide (Lasix) 40 mg tablet 40 mg in the morning. HYDROcodone-acetaminophen (Minden) 5-325 mg tablet Take 1 tablet by mouth every 4 (four) hours if needed for severe pain (8-10 pain score). lactobacillus (Culturelle) 10 billion cell capsule Take 1 capsule by mouth in the morning. levothyroxine (Synthroid, Levoxyl) 50 mcg tablet Take 1 tablet by mouth in the morning. losartan (Cozaar) 100 mg tablet Take 100 mg by mouth in the morning. magnesium oxide (Mag-Ox) 250 mg magnesium tablet Take 1 tablet every day by oral route. metoprolol tartrate (Lopressor) 25 mg tablet Take 1 tablet by mouth in the morning and at bedtime. nitroglycerin (Nitrostat) 0.[address] 1 tablet as needed by sublingual route. potassium chloride (Klor-Con) 20 mEq packet Take 20 mEq by mouth in the morning. pregabalin (Lyrica) 50 mg capsule Take 50 mg by mouth in the morning and at bedtime. tamsulosin (Flomax) 0.4 mg 24 hr capsule Take 0.4 mg by mouth in the morning. [DISCONTINUED] clopidogrel (Plavix) 75 mg tablet TAKE 1 TABLET BY MOUTH IN THE MORNING 90 tablet 0 No current facility-administered medications on file prior to visit. Physical Exam: Constitutional: Appearance: Normal appearance. Without apparent distress, chronically ill, ambulatory via motorized w/c HENT: Head: Normocephalic and atraumatic. Nose: Nose normal. Mouth/Throat: Mouth: Mucous membranes are moist. Eyes: Extraocular Movements: Extraocular movements intact. Conjunctiva/sclera: Conjunctivae normal. Neck: Vascular: No JVD. Cardiovascular: Rate and Rhythm: Normal rate and regular rhythm. Pulses: Dorsalis pedis pulses are 3 on the right side and 3on the left side. Posterior tibial pulses are 3 on the right side and 3 on the left side. Heart sounds: Normal heart sounds, S1 normal and S2 normal. Pulmonary: Effort: Pulmonary effort is normal. Breath sounds: Normal breath sounds. Abdominal: General: Bowel sounds are normal. Palpations: Abdomen is soft. Musculoskeletal: General: Normal range of motion. Cervical back: Normal range of motion. Right lower le-2+ edema. Left lower le-2+ edema. Skin: General: Skin is warm and dry. Capillary Refill: Capillary refill takes less than 2 seconds. Neurological: General: No focal deficit present. Mental Status: he is alert and oriented to person, place, and time. Psychiatric: Mood and Affect: Mood normal. Behavior: Behavior normal. Thought Content: Thought content normal. Judgment: Judgment normal. Labs: 02/05/23 CBC normal, BUN 45, CR 1.49 K+ 4.0- normal Liver function normal Last lab values have been reviewed CV Testin08/27/2022 limited TTE Left Ventricle: Global left ventricul (more content not included)... [facility] 12-23-2022 Hospital Discharge instructions Patient Education 12/23/2022 08:42:58 Cancer Screening for Men Cancer Screening for Men A cancer screening is a test or exam that checks for cancer. Your health care provider will recommend specific cancer screenings based on your age, medical history (including risk factors), and family history of cancer. Work with your health care provider to create a cancer screening schedule that protects your health. Who should have screening? All men should be considered for screening of certain cancers, including colorectal cancer, prostate cancer, lung cancer, and skin cancer. Your health care provider may recommend screenings for other types of cancer if: You had cancer before. You have a family member with cancer. You have abnormal genes that could increase the risk of cancer. You have risk factors for certain cancers, such as current or past use of tobacco products, or being overweight. When you should be screened for cancer depends on: Your age. Your medical history and your family's medical history. Certain lifestyle factors, such as smoking or other use of tobacco products. Environmental exposure, such as to asbestos. How is screening done? Colorectal cancer All adults should have screenings starting at age 45 and continuing until age 75. Your health care provider may recommend screening before age 45. You will have tests every 1 10 years, depending on your results and the type of screening test. People at increased risk should start screening at an earlier age. Talk with your health care provider about which screening test is right for you and how often you should be screened. Colorectal cancer screening looks for cancer or for growths called polyps that often form before cancer starts. Tests to look for cancer or polyps include: Colonoscopy or flexible sigmoidoscopy. For these procedures, a flexible tube with a small camera is inserted into the rectum. CT colonography. This test uses X-rays and a contrast dye to check the colon for polyps. If a polyp is found, you may need to have a colonoscopy so the polyp can be located and removed. Tests to look for cancer in the stool (feces) include: Guaiac-based fecal occult blood test (FOBT). This test can find blood in stool. It can be done at home with a kit. Fecal immunochemical test (FIT). This test can find blood in stool. For this test, you will need to collect stool samples at home. Stool DNA test. This test looks for blood in stool and any changes in DNA that can lead to colon cancer. For this test, you will need to collect a stool sample at home and send it to a lab. Prostate cancer Prostate cancer screening for men with average risk may start at age 50. Men with risk factors may need to be screened earlier, at ages 40 45. Talk with your health care provider about whether screening is right for you and, if so, how often you should be screened. Prostate cancer screening is done with blood tests and a digital rectal exam. During this exam, a health care provider uses a gloved finger to check prostate size. You may need to be screened for prostate cancer if: You have risk factors for prostate cancer, such as being or having a close family member with prostate cancer. You have had gene changes or a genetic condition that was passed on to you from a parent (inherited). These gene changes or genetic conditions include BRCA1 or BRCA2 gene mutations or John syndrome. You have symptoms of prostate cancer, such as problems urinating or problems getting or keeping an erection (erectile dysfunction). When you have been screened for prostate cancer, future screening may be recommended based on the results of your blood tests. Lung cancer Lung cancer screening is done with a CT scan that looks for abnormal changes in the lungs. Discuss lung cancer screening with your health care provider if you are 50 80 years old and if any of the following apply to you: You currently smoke. You used to smoke heavily. You have a smoking history of 1 pack of cigarettes a day for 20 years or 2 packs a day for 10 years. You have quit smoking within the past 15 years. You may need to be screened every year if you smoke heavily or if you used to smoke. Skin cancer Skin cancer screening is done by checking the skin for unusual moles or spots and any changes in existing moles. Your health care provider should check your skin for signs of skin cancer at every physical exam. You should check your skin every month and tell your health care provider right away if anything looks unusual. Men with a jcjndi-gnjn-nlxtri risk for skin cancer may want to see a hide and skin processing worker (supervisor grading) for an annual body check. What are the benefits of screening? Cancer screening is done to look for cancer in the very early stages, before it spreads and becomes harder to treat and before you would start to notice symptoms. Finding cancer early improves the chances of successful treatment. It may save your life. Where to find more information [place] [employer]: www.cancer.org Centers for Disease Control and Prevention: www.cdc.gov National Cancer [place]: www.cancer.gov Contact a health care provider if: You have concerns about any signs or symptoms of cancer. These may include: Skin problems. You may have: ?Moles of an unusual shape or color. ?Changes in existing moles. ?A sore on your skin that does not heal. Tiredness (fatigue) that does not go away. Losing weight without trying. Blood in your urine or stool. Problems with urination. You may have: ?Changes in urination habits. ?Painful urination. Painful ejaculation. Problems with coughing or breathing. These may include: ?Coughing or trouble breathing that does not go away. ?Coughing up blood. Frequent pain or cramping in your abdomen. Summary Your health care provider will recommend specific cancer screenings based on your age, medical history, and family history of cancer. Work with your health care provider to create a cancer screening schedule that protects your health. Finding cancer early improves the chances of successful treatment. It may save your life. Contact a health care provider if you have concerns about any signs or symptoms of cancer. This information is not intended to replace advice given to you by your health care provider. Make sure you discuss any questions you have with your health care provider. Document Revised: 11/19/2021 Document Reviewed: 05/19/2020 [employer] Patient Education 2022 Last 2 Left. Follow Up Care 04/22/2022 16:39:16 With:URSULA WORKMAN, Mekhi Oh, URL Address: [facility] [address] , [place] [address]- When: Unknown [facility] 10-24-2022 Note CONSULTATION CONSULTATION DATE: 10/24/2022 TO: Dr. Elliott CHIEF COMPLAINT: Includes severe lower back pain. HISTORY: Reports the pain as being 5-7/10 pain, sharp in nature with a deep, throbbing component, increased with activity such as standing, walking and performing transitioning maneuvers. He feels most comfortable in the semi-recumbent position. Denies any change in bowel and bladder habits or new sensorimotor changes in the lower extremities. He has known foot drop on the left side, which is stable. MEDICATION: Current medication includes Minden 5 mg q.i.d. p.r.n. He reports it does improve his pain symptoms, improving his quality of life, level of functioning and his sleep pattern. He denies any side effects. He is also on Lyrica 75 mg at h.s., baclofen 10 mg at h.s. and Tylenol Extra Strength six pills a day, which he takes concomitantly with Minden. EXAM: Notable for patient having left sided foot drop, depressed left Achilles reflex. Straight leg raise is negative. He had no signs consistent with myelopathy involving the lower extremities. He did have moderate pain with lumbar facet loading maneuvers with associated myofascial spasm of his lumbar paravertebral muscles. IMPRESSION: Our impression is patient appears to have chronic pain secondary to spinal stenosis. He has undergone a lumbar diskectomy in the past. This did improve his pain symptoms; however, he had persistent loss of motor strength for left foot dorsiflexion. He also has pain from myofascial spasm, possibly related to the spondylosis in the lumbar spine. He reports he had 100% improvement after his initial epidural injection, which was performed in July of 2022. RECOMMENDATIONS: I have recommended we repeat the epidural injection at the L3- 4 level at his next procedure. Increase his baclofen 10 mg pills, half a pill b.i.d. and one at h.s. I have increased his Lyrica to 75 mg b.i.d. and asked him to start aquatic therapy. His MATT on today's visit was 41. As part of providing excellent, safe, comprehensive care, the following was completed at our patient's visit: 1. A medication reconciliation and review to ensure accurate knowledge of current/active medications, including asking our patients to inform us about any usjf-vzg-zktsill medications or herbal remedies/nutritional supplements/alternative remedies. 2. A review to specifically ensure our patients have had annual screening for: elevated body mass index (BMI, see intake chart for exact total), tobacco use, screening for depression, and screening for unhealthy alcohol use. When screening is concerning, patients are provided with education and the specific recommendation to discuss the concerning health issue and treatment options with their primary care provider. [facility] 10-18-2022 Note Patient here for fol low up KINZA s/p Watchman device implant. Denies chest pain and SOB. Doing very well. Review of Systems Cardiovascular: Positive for leg swelling. Hematologic/Lymphatic: Negative. Musculoskeletal: Positive for arthritis, back pain, joint pain and myalgias. All other systems reviewed and are negative. [facility] 10-18-[address] Cardiology - [facility] Subjective Ben Guadalupe is a 86 y.o. year old male patient who presents to clinic for follow-up after his Watchman device implant. Patient Active Problem List Diagnosis Arteriosclerosis of coronary artery Essential (primary) hypertension Left ventricular hypertrophy Mixed hyperlipidemia PAF (paroxysmal atrial fibrillation) (CMS/HCC) Blood loss anemia Other hemorrhoids Paroxysmal atrial fibrillation (CMS/HCC) Benign prostatic hyperplasia with lower urinary tract symptoms Calculus of kidney Chronic obstructive pulmonary disease (CMS/HCC) Dementia in other diseases classified elsewhere, unspecified severity, without behavioral disturbance, psychotic disturbance, mood disturbance, and anxiety (CMS/HCC) Sleep apnea Intracranial hemorrhage (CMS/HCC) History of DVT (deep vein thrombosis) Family History Problem Relation Name Age of Onset Heart failure Mother Prostate cancer Father Coronary artery disease Brother Prostate cancer Brother Social History Tobacco Use Smoking status: Never Smokeless tobacco: Never Substance Use Topics Alcohol use: Yes Comment: occasional Drug use: Never Atrial Fibrillation Past medical history includes atrial fibrillation and CAD. Coronary Artery Disease Last HPI per Dr. Danielle: Ben is an 86-year-old man with history of mild coronary artery disease by cardiac catheterization in 2013, hypertension. He has history of DVT in the left leg many years ago. He has leg edema is related to venous insufficiency and lack of ambulation. This is chronic. His prior echocardiograms showed mild elevation of right sided pressure that do not explain the leg edema. He has tried compression socks in the past but couldn't tolerate them. I had recommended leg elevation. In early February 2022 he was admitted to the [facility] with palpitations and chest pain. He was found to have atrial fibrillation with rapid ventricular response that later reverted to sinus rhythm. He was also found to have significant anemia and large amount of rectal bleeding that appeared to be related to hemorrhoids, he received blood transfusion. He also had DAVID that resolved. At that time I evaluated him in the hospital and I recommended against any anticoagulation therapy due to his anemia and bleeding. I also recommended an event monitor to rule out recurrence of atrial fibrillation. This showed evidence of recurrence of atrial fibrillation. On 05/17/2022 he underwent surgery for hemorrhoids. He has not had bleeding since then. Today he reports that he has been doing reasonably well. He has had no recurrence of palpitations or chest pain since that episode in early February. He otherwise has chronic lower extremity edema. He uses a scooter to ambulate. No significant shortness of breath. 09/11/22 He has been feeling well since the procedure. He has some right groin bruising that is improving. He denies any current issues with bleeding. He has chronic LE swelling. He denies CP, dyspnea, orthopnea, PND, dizziness/LH, palpitations. He mobilizes with his scooter. 10/18/22 He has been feeling well since last seen. He had his follow-up KINZA last week. His LLE swelling is unchanged. He denies c/o CP, dyspnea, palpitations, dizziness/LH, bleeding issues. He just planted a garden last week with his grandson, planted eggplant, corn, green beans. ROS Cardiovascular: Positive for leg swelling. Hematologic/Lymphatic: Negative. Musculoskeletal: Positive for arthritis, back pain, joint pain and myalgias. All other systems reviewed and are negative. Objective Visit Vitals BP 115/66 (BP Location: Right arm, Patient Position: Sitting) Pulse 87 Ht 1.803 m (5' 11 ) Wt 87.1 kg (192 lb) SpO2 96% BMI 26.78 kg/m??? Smoking Status Never BSA 2.09 m??? Physical Exam Constitutional: Appearance: He is well-developed. He is not ill-appearing. HENT: Head: Normocephalic and atraumatic. Nose: Nose normal. Eyes: General: No scleral icterus. Pupils: Pupils are equal, round, and reactive to light. Neck: Thyroid: No thyromegaly. Vascular: No JVD. Cardiovascular: Rate and Rhythm: Normal rate and regular rhythm. Heart sounds: Normal heart sounds. No murmur heard. No friction rub. No gallop. Pulmonary: Effort: Pulmonary effort is normal. No respiratory distress. Breath sounds: Normal breath sounds. No wheezing or rales. Chest: Chest wall: No tenderness. Abdominal: General: Bowel sounds are normal. There is no distension. Palpations: Abdomen is soft. Tenderness: There is no abdominal tenderness. Musculoskeletal: Cervical back: Neck supple. Right lower le+ Pitting Edema present. Left lower le+ Edema present. Comments: Uses a scooter to ambulate Skin: General: Skin is warm and dry. Neurological: General: No focal deficit present. Mental Status: He is alert and oriented to perso (more content not included)... [facility] 09-11-[address] Cardiology - [facility] Subjective Ben Guadalupe is a 86 y.o. year old male patient who presents to clinic for follow-up after his Watchman device implant. Patient Active Problem List Diagnosis Arteriosclerosis of coronary artery Essential (primary) hypertension Left ventricular hypertrophy Mixed hyperlipidemia PAF (paroxysmal atrial fibrillation) (CMS/HCC) Blood loss anemia Other hemorrhoids Paroxysmal atrial fibrillation (CMS/HCC) Benign prostatic hyperplasia with lower urinary tract symptoms Calculus of kidney Chronic obstructive pulmonary disease (CMS/HCC) Dementia in other diseases classified elsewhere, unspecified severity, without behavioral disturbance, psychotic disturbance, mood disturbance, and anxiety (CMS/HCC) Sleep apnea Intracranial hemorrhage (CMS/HCC) History of DVT (deep vein thrombosis) Family History Problem Relation Name Age of Onset Heart failure Mother Prostate cancer Father Coronary artery disease Brother Prostate cancer Brother Social History Tobacco Use Smoking status: Never Smokeless tobacco: Never Substance Use Topics Alcohol use: Yes Comment: occasional Drug use: Never Atrial Fibrillation Symptoms are negative for chest pain, palpitations and syncope. Past medical history includes atrial fibrillation and CAD. Coronary Artery Disease Symptoms include leg swelling. Pertinent negatives include no chest pain or palpitations. 09/11/22 He has been feeling well since the procedure. He has some right groin bruising that is improving. He denies any current issues with bleeding. He has chronic LE swelling. He denies CP, dyspnea, orthopnea, PND, dizziness/LH, palpitations. He mobilizes with his scooter. Last HPI per Dr. Danielle: Ben is an 86-year-old man with history of mild coronary artery disease by cardiac catheterization in 2013, hypertension. He has history of DVT in the left leg many years ago. He has leg edema is related to venous insufficiency and lack of ambulation. This is chronic. His prior echocardiograms showed mild elevation of right sided pressure that do not explain the leg edema. He has tried compression socks in the past but couldn't tolerate them. I had recommended leg elevation. In early February 2022 he was admitted to the [facility] with palpitations and chest pain. He was found to have atrial fibrillation with rapid ventricular response that later reverted to sinus rhythm. He was also found to have significant anemia and large amount of rectal bleeding that appeared to be related to hemorrhoids, he received blood transfusion. He also had DAVID that resolved. At that time I evaluated him in the hospital and I recommended against any anticoagulation therapy due to his anemia and bleeding. I also recommended an event monitor to rule out recurrence of atrial fibrillation. This showed evidence of recurrence of atrial fibrillation. On 05/17/2022 he underwent surgery for hemorrhoids. He has not had bleeding since then. Today he reports that he has been doing reasonably well. He has had no recurrence of palpitations or chest pain since that episode in early February. He otherwise has chronic lower extremity edema. He uses a scooter to ambulate. No significant shortness of breath. Review of Systems Cardiovascular: Positive for leg swelling. Negative for chest pain, claudication, dyspnea on exertion, irregular heartbeat, near-syncope, orthopnea, palpitations, paroxysmal nocturnal dyspnea and syncope. Hematologic/Lymphatic: Negative. Musculoskeletal: Positive for arthritis, back pain and myalgias. All other systems reviewed and are negative. Objective Visit Vitals BP 126/75 (BP Location: Right arm, Patient Position: Sitting) Pulse 75 Ht 1.803 m (5' 11 ) Wt 87.1 kg (192 lb) SpO2 97% BMI 26.78 kg/m??? Smoking Status Never BSA 2.09 m??? Physical Exam Constitutional: Appearance: He is well-developed. He is not ill-appearing. HENT: Head: Normocephalic and atraumatic. Nose: Nose normal. Eyes: General: No scleral icterus. Pupils: Pupils are equal, round, and reactive to light. Neck: Thyroid: No thyromegaly. Vascular: No JVD. Cardiovascular: Rate and Rhythm: Normal rate and regular rhythm. Pulses: Radial pulses are 2+ on the right side. Heart sounds: Normal heart sounds. No murmur heard. No friction rub. No gallop. Comments: Right groin with resolving ecchymosis, no hematoma, no bruit, no s/s of infection Pulmonary: Effort: Pulmonary effort is normal. No respiratory distress. Breath sounds: Normal breath sounds. No wheezing or rales. Chest: Chest wall: No tenderness. Abdominal: General: Bowel sounds are normal. There is no distension. Palpations: Abdomen is soft. Tenderness: There is no abdominal tenderness. Musculoskeletal: Cervical back: Neck supple. Right lower le (more content not included)... [facility] 09-11-2022 Note Patient here for 2 w [place] follow up Watchman implant. Says he feels good. Denies chest pain and SOB. Review of Systems Cardiovascular: Positive for leg swelling. Hematologic/Lymphatic: Negative. Musculoskeletal: Positive for arthritis, back pain and myalgias. All other systems reviewed and are negative. [facility] 08-29-2022 Note Subjective Patient is s/p watchmen and s/p [facility] Patient restingin bed, doing well this morning. States he feels great and is ready to go home I did inform him of the [facility] results and that were no immediate concerns, will continue with current medical management He denies chest pain, SOB, RIOS, lightheadedness, dizziness, palpitations Objective Patient Vitals for the past 24 hrs: BP Temp Temp src Pulse Resp SpO2 Weight 08/29/22 0800 116/51 36.7 ???C (98.1 ???F) Temporal 58 14 96 % -- 08/29/22 0600 -- -- -- -- -- -- 76.9 kg (169 lb 8.5 oz) 08/29/22 0430 113/53 -- -- 64 14 95 % -- 08/29/22 0400 116/69 -- -- 63 18 95 % -- 08/28/221999 127/77 -- -- 81 20 96 % -- 08/28/22 1945 136/85 -- -- 80 19 98 % -- 08/28/22 194 135/84 -- -- 82 10 96 % -- 08/28/22 1915 126/71 -- -- 75 13 95 % -- 08/28/22 1900 115/66 -- -- 73 15 95 % -- 08/28/22 1845 115/55 -- -- 70 16 94 % -- 08/28/22 1830 116/61 -- -- 88 20 94 % -- 08/28/22 1815 112/61 -- -- 81 17 97 % -- 08/28/22 1801 124/78 -- -- 87 16 94 % -- 08/28/22 1800 (!) 178/153 -- -- 90 14 95 % -- 08/28/22 1750 128/70 -- -- 81 13 96 % -- 08/28/22 1730 117/71 -- -- 69 17 95 % -- 08/28/22 1715 131/82 -- -- 72 16 95 % -- 08/28/22 1700 124/80 -- -- 70 15 100 % -- 08/28/22 1650 118/84 36.4 ???C (97.5 ???F) Temporal 73 17 94 % -- 08/28/22 1635 124/75 -- -- 77 14 96 % -- 08/28/22 1601 127/75 -- -- 70 14 98 % -- 08/28/22 1601 -- -- -- -- -- 98 % -- 08/28/22 1316 133/82 36.2 ???C (97.2 ???F) Temporal 76 17 100 % -- Physical Exam Vitals and nursing note reviewed. Cardiovascular: Rate and Rhythm: Normal rate and regular rhythm. Pulses: Normal pulses. Heart sounds: Normal heart sounds, S1 normal and S2 normal. Comments: Left wrist cath site: dressing is CDI, no concerns for hematoma or drainage Pulmonary: Effort: Pulmonary effort is normal. No tachypnea or bradypnea. Breath sounds: Normal breath sounds and air entry. Musculoskeletal: Right lower leg: Edema (mild ankle edema, baseline for him) present. Left lower leg: Edema (mild ankle edema, baseline for him) present. Neurological: Mental Status: He is alert. Lab Results Component Value Date NA 137 08/28/2022 K 3.6 08/28/2022 CL 104 08/28/2022 ANIONGAP 12 08/28/2022 BUN 21 08/28/2022 CREATININE 1.05 08/28/2022 CALCIUM 8.5 (L) 08/28/2022 No results found for: BILITOT, BILIDIR, ALKPHOS, AST, ALT, PROT, ALBUMIN Lab Results Component Value Date WBC 6.30 08/28/2022 RBC 4.89 08/28/2022 HGB 14.4 08/28/2022 HCT 43.6 08/28/2022 MCV 89.2 08/28/2022 MCH 29.4 08/28/2022 MCHC 33.0 08/28/2022 RDW 15.0 08/28/2022 PLT 124 (L) 08/28/2022 No results found for this or any previous visit from the past 1 day. CV diagnostics: [facility] - 08/28/22 Conclusion Cardiovascular Laboratory Report FINAL IMPRESSIONS: Mild to moderate three-vessel coronary artery disease Normal global left ventricular systolic function by noninvasive imaging RECOMMENDATIONS: Aggressive cardiovascular factor modification Optimal medical therapy for coronary artery disease should include aspirin, moderate intensity statin therapy given the patient's age (Lipitor 40 mg or Crestor 20 mg daily), a beta-juliana +/- an angiotensin-converting enzyme inhibitor Given elevation in troponin, could consider a second antiplatelet agent such as Plavix Further recommendations deferred to the inpatient services CV procedure: Watchmen 08/27/2022 RECOMMENDATIONS: 1. The patient will be observed in the hospital. 2. The patient will obtain an echocardiogram prior to discharge. 3. Endocarditis prophylaxis for 6 months after left atrial appendage closure. 4. Aspirin 81 mg and clopidogrel 75 mg daily for 6 months, followed by aspirin 81 mg daily after 6 months. 5. The patient will be scheduled for a 45-day KINZA per Watchman protocol, and follow up in Cardiology Clinic. Assessment/Plan Principal Problem: Paroxysmal atrial fibrillation (CMS/HCC) Active Problems: Chest pain #PAF #s/p watchmen 08/27/22 #anemia #hx rectal bleeding #mild cad #DM2 #htn The patient is a 86 y.o. male with complex prior medical history including Paroxysmal atrial fibrillation, who needs long-term anticoagulation therapy to reduce the risk of stroke given elevated [id number] score of 5 due to age, hypertension, diabetes, and vascular disease. he is not a good candidate for long-term anticoagulation due to history of gastrointestinal bleeding and falls. Following evaluation in Cardiology Clinic, percutaneous KARLI closure procedure was recommended as an alternative to long-term anticoagulation. he had a shared decision making with Dr Shaikh Elliott, and both agreed that KARLI closure is a good alternative for him. He had watc (more content not included)... [facility] 08-29-2022 Note SW screened pt at be dside. Pt was alert and oriented. Pt lives in manufactured home by himself. There are no steps into his home. Pt's son and grandson live in other homes next to him. He uses a scooter outside and a walker inside for DME. He supports himself through SSI and longterm. Upon DC, pt will have transportation to home by family. SW has no other concerns at this time. [facility] 08-28-2022 Note Cardiovascular Labor atory Report FINAL IMPRESSIONS: Mild to moderate three-vessel coronary artery disease Normal global left ventricular systolic function by noninvasive imaging RECOMMENDATIONS: Aggressive cardiovascular factor modification Optimal medical therapy for coronary artery disease should include aspirin, moderate intensity statin therapy given the patient's age (Lipitor 40 mg or Crestor 20 mg daily), a beta-juliana +/- an angiotensin-converting enzyme inhibitor Given elevation in troponin, could consider a second antiplatelet agent such as Plavix Further recommendations deferred to the inpatient services PROCEDURES: Ultrasound-guided access to the left radial artery, bilateral selective coronary angiography via a left radial approach METHODS: After risks, benefits, and alternatives were explained, written informed consent was obtained. The patient was prepped and draped in usual sterile fashion over the left wrist. Local infiltration anesthesia was achieved of the left wrist. Using a micropuncture kit, and under ultrasound guidance, access to the left radial artery was obtained. A 6 Martiniquais glide sheath was inserted without difficulty. Bilateral selective coronary angiography was performed using JR 4.0 and JL 4.0 catheters. After reviewing the images, it was elected to conclude the procedure. The catheters were removed. The radial sheath was removed with application of a TR band per protocol to achieve optimal hemostasis. FINDINGS: Hemodynamics: 118/73 [88] LEFT VENTRICULOGRAPHY: This was not performed. Ejection fraction is 55% by echocardiography CORONARY ARTERIES: Left main coronary artery: This arises from the left coronary cusp in a somewhat posterior fashion and bifurcates into the left anterior descending and left circumflex coronary arteries. It is free of significant stenoses. Left anterior descending coronary artery: This shows a calcific 40 to 50% mid vessel stenosis at the bifurcation with a prominent septal manager pool. There is subsequent caliber reduction in the mid to distal portion of the vessel. The diagonal showed diffuse disease and caliber reduction. No focal high-grade stenoses are seen. Left circumflex coronary artery: The mid vessel 30 to 40% stenosis. Right coronary artery: This arises from the right coronary cusp; it is a dominant vessel giving rise to the posterior descending and posterolateral branches. There are 30% stenoses in the mid posterior descending artery. INDICATIONS: Chest pain, elevated Troponin [facility] 08-28-2022 Note Subjective Patient is s/p watchmen He is doing well today; his chest discomfort has completely resolved, he denies any chest pain, SOB, RIOS, fatigue. Objective Patient Vitals for the past 24 hrs: BP Temp Temp src Pulse Resp SpO2 Height Weight 08/28/22 0935 139/78 36.3 ???C (97.4 ???F) Temporal 80 16 -- -- -- 08/28/22 0500 -- -- -- -- -- -- -- 78.9 kg (173 lb 15.1 oz) 08/28/22 0400 129/78 36.8 ???C (98.2 ???F) -- 73 21 98 % -- -- 08/28/22 0000 127/77 36.5 ???C (97.7 ???F) -- 64 10 94 % -- -- 08/27/221999 (!) 133/91 36.4 ???C (97.5 ???F) -- 65 16 -- -- -- 08/27/22 1800 -- -- -- 69 14 -- -- -- 08/27/22 1700 -- -- -- 67 16 -- -- -- 08/27/22 1610 138/66 -- -- 78 18 97 % -- -- 08/27/22 1600 -- -- -- 74 14 97 % -- -- 08/27/22 1500 136/84 -- -- 73 17 98 % -- -- 08/27/22 1400 136/80 -- -- 61 (!) 5 98 % -- -- 08/27/22 1333 157/76 -- -- 74 14 100 % -- -- 08/27/22 1300 139/79 -- -- 61 18 98 % -- -- 08/27/22 1230 123/67 -- -- -- -- -- -- -- 08/27/22 1212 125/74 36 ???C (96.8 ???F) Temporal 62 12 99 % 1.803 m (5' 11 ) 79.5 kg (175 lb 4.3 oz) 08/27/22 1130 128/71 -- -- 68 18 99 % -- -- Physical Exam Vitals and nursing note reviewed. Cardiovascular: Rate and Rhythm: Normal rate and regular rhythm. Pulses: Normal pulses. Heart sounds: Normal heart sounds, S1 normal and S2 normal. Comments: Right groin site, dressing CDI. no hematoma or, drainage noted Pulmonary: Effort: Pulmonary effort is normal. No tachypnea or bradypnea. Breath sounds: Normal breath sounds and air entry. Musculoskeletal: Right lower leg: No edema. Left lower leg: No edema. Neurological: Mental Status: He is alert. Lab Results Component Value Date NA 137 08/28/2022 K 3.6 08/28/2022 CL 104 08/28/2022 ANIONGAP 12 08/28/2022 BUN 21 08/28/2022 CREATININE 1.05 08/28/2022 CALCIUM 8.5 (L) 08/28/2022 No results found for: BILITOT, BILIDIR, ALKPHOS, AST, ALT, PROT, ALBUMIN Lab Results Component Value Date WBC 6.30 08/28/2022 RBC 4.89 08/28/2022 HGB 14.4 08/28/2022 HCT 43.6 08/28/2022 MCV 89.2 08/28/2022 MCH 29.4 08/28/2022 MCHC 33.0 08/28/2022 RDW 15.0 08/28/2022 PLT 124 (L) 08/28/2022 No results found for this or any previous visit from the past 1 day. [facility] 08/27/2022 RECOMMENDATIONS: 1. The patient will be observed in the hospital. 2. The patient will obtain an echocardiogram prior to discharge. 3. Endocarditis prophylaxis for 6 months after left atrial appendage closure. 4. Aspirin 81 mg and clopidogrel 75 mg daily for 6 months, followed by aspirin 81 mg daily after 6 months. 5. The patient will be scheduled for a 45-day KINZA per Watchman protocol, and follow up in Cardiology Clinic. Assessment/Plan Principal Problem: Paroxysmal atrial fibrillation (CMS/HCC) #PAF #s/p watchmen 08/27/22 #anemia #hx rectal bleeding #mild cad #DM2 #htn The patient is a 86 y.o. male with complex prior medical history including Paroxysmal atrial fibrillation, who needs long-term anticoagulation therapy to reduce the risk of stroke given elevated [id number] score of 5 due to age, hypertension, diabetes, and vascular disease. he is not a good candidate for long-term anticoagulation due to history of gastrointestinal bleeding and falls. Following evaluation in Cardiology Clinic, percutaneous KARLI closure procedure was recommended as an alternative to long-term anticoagulation. he had a shared decision making with Dr Shaikh Elliott, and both agreed that KARLI closure is a good alternative for him. PMH includes: mild CAD, hypertension, DVT in the left leg with chronic venous insufficiency, rectal bleeding d/t hemorrhoids but is now s/p hemorroidectomy, brain bleed S/P Watchmen for PAF -Aspirin 81mg and plavix 75 mg daily (plavix for 6 months) -diet: cardiac, no fluid restriction -encourage ambulation today to assure he is baseline -continue home medications: Cardizem 180 mg, Farxiga 10 mg, Lipitor 20 mg, Aricept 10 mg, Lasix 40 mg probiotic, Synthroid 50 mics, losartan 100 mg, metoprolol tartrate 25 mg twice daily, potassium 20 mEq daily, Lyrica 50 mg twice daily, Flomax 0.4 mg daily. As needed nitro ,albuterol and Minden -repeat echo and ekg were not concerning at this time -Chest discomfort has resolved today; troponin was 0.25, will add repeat for this morning -after discussing with Dr. Danielle, will order a LHC today d/t elevated troponin and chest discomfort yesterday 3-4 hours after watchman procedure -NPO for LHC, last meal 08/28, he does take aspirin and plavix and has had both doses today This case/plan was discussed with Dr. Danielle and Dr. Cheney. [facility] 08-27-2022 Note Maritza SUPERVISOR MALTED MILK on unit- ho lding off on trops at this time. Stat Echo ordered- going down shortly. [facility] 08-27-2022 Note Maritza cardiology SUPERVISOR MALTED MILK in at bedside- patient's chest pressure is slightly worsening than prior. Stat EKG and trops ordered- EKG obtained- still awaiting trops. [facility] 08-27-2022 Note Subjective Patient is s/p watchmen He is complaining of intermittent right midsternal border pain Otherwise procedure went well today Denies shortness of breath, palpitations, lightheadedness, dizziness. Right Groin site healing well, dressing CDI Dr. Danielle arrived to bedside to assess patient We did stat bedside EKG and echo We will order stat troponin Objective Patient Vitals for the past 24 hrs: BP Temp Temp src Pulse Resp SpO2 Height Weight 08/27/22 1333 157/76 -- -- 74 14 100 % -- -- 08/27/22 1300 139/79 -- -- 61 18 98 % -- -- 08/27/22 1230 123/67 -- -- -- -- -- -- -- 08/27/22 1212 125/74 36 ???C (96.8 ???F) Temporal 62 12 99 % 1.803 m (5' 11 ) 79.5 kg (175 lb 4.3 oz) 08/27/22 1130 128/71 -- -- 68 18 99 % -- -- 08/27/22 1030 140/83 -- -- 84 14 98 % -- -- 08/27/22 0852 -- -- -- -- -- 98 % -- -- 08/27/22 0852 150/84 -- -- 94 14 98 % -- -- 08/27/22 0734 142/80 -- -- 69 16 99 % -- -- Physical Exam Vitals and nursing note reviewed. Cardiovascular: Rate and Rhythm: Normal rate and regular rhythm. Pulses: Normal pulses. Heart sounds: Normal heart sounds, S1 normal and S2 normal. Comments: Right groin site, dressing CDI. no hematoma or, drainage noted Pulmonary: Effort: Pulmonary effort is normal. No tachypnea or bradypnea. Breath sounds: Normal breath sounds and air entry. Musculoskeletal: Right lower leg: No edema. Left lower leg: No edema. Neurological: Mental Status: He is alert. Lab Results Component Value Date NA 139 08/20/2022 K 3.3 (L) 08/20/2022 CL 99 08/20/2022 ANIONGAP 11 08/20/2022 BUN 21 08/20/2022 CREATININE 1.12 08/20/2022 CALCIUM 8.9 08/20/2022 No results found for: BILITOT, BILIDIR, ALKPHOS, AST, ALT, PROT, ALBUMIN Lab Results Component Value Date WBC 4.18 08/20/2022 RBC 5.10 08/20/2022 HGB 15.4 08/20/2022 HCT 44.7 08/20/2022 MCV 87.6 08/20/2022 MCH 30.2 08/20/2022 MCHC 34.5 08/20/2022 RDW 15.0 08/20/2022 PLT 108 (L) 08/20/2022 No results found for this or any previous visit from the past 1 day. [facility] 08/27/2022 RECOMMENDATIONS: 1. The patient will be observed in the hospital. 2. The patient will obtain an echocardiogram prior to discharge. 3. Endocarditis prophylaxis for 6 months after left atrial appendage closure. 4. Aspirin 81 mg and clopidogrel 75 mg daily for 6 months, followed by aspirin 81 mg daily after 6 months. 5. The patient will be scheduled for a 45-day KINZA per Watchman protocol, and follow up in Cardiology Clinic. Assessment/Plan Principal Problem: Paroxysmal atrial fibrillation (CMS/HCC) #PAF #s/p watchmen 08/27/22 #anemia #hx rectal bleeding #mild cad #DM2 #htn The patient is a 86 y.o. male with complex prior medical history including Paroxysmal atrial fibrillation, who needs long-term anticoagulation therapy to reduce the risk of stroke given elevated [id number] score of 5 due to age, hypertension, diabetes, and vascular disease. he is not a good candidate for long-term anticoagulation due to history of gastrointestinal bleeding and falls. Following evaluation in Cardiology Clinic, percutaneous KARLI closure procedure was recommended as an alternative to long-term anticoagulation. he had a shared decision making with Dr Shaikh Elliott, and both agreed that KARLI closure is a good alternative for him. PMH includes: mild CAD, hypertension, DVT in the left leg with chronic venous insufficiency, rectal bleeding d/t hemorrhoids but is now s/p hemorroidectomy, brain bleed S/P Watchmen for PAF -Aspirin 81mg and plavix 75 mg daily (plavix for 6 months) -diet: cardiac, no fluid restriction -encourage ambulation when cath checks complete -cath site checks per hospital protocol -resume home medications: Cardizem 180 mg, Farxiga 10 mg, Lipitor 20 mg, Aricept 10 mg, Lasix 40 mg probiotic, Synthroid 50 mics, losartan 100 mg, metoprolol tartrate 25 mg twice daily, potassium 20 mEq daily, Lyrica 50 mg twice daily, Flomax 0.4 mg daily. As needed nitro ,albuterol and Minden -repeat echo and ekg were not concerning at this time -will follow up with troponin for postop chest discomfort, likely from KINZA irritation or plavix, will order gi cocktail to see if that improves symptoms -likely discharge tomorrow [facility] 08-27-2022 Note Pt calling out deborah vega complaints of small amounts of chest pressure at this time. RN called heading up machine operator- states will come to bedside to round very shortly. RN to follow up. [facility] 08-27-2022 Note Patient: Ben oh Procedure Information Date/Time: 08/27/22 0830 Procedure: Left atrial appendage closure (transvenous) - 829 case Location: [facility] ACTIVITIES ATTENDANT 2 BIP[address]ANE / [facility] (Cath) Providers: Kavita Danielle MD Clinical information reviewed: Allergies Meds Physical Exam Airway Mallampati: II Cardiovascular Rhythm: regular Rate: normal Dental Pulmonary Breath sounds clear to auscultation Abdominal Abdomen: soft Anesthesia Plan ASA 3 other (Moderate sedation) Anesthetic plan and risks discussed with patient. Use of blood products discussed with patient who consented to blood products. Plan discussed with fellow and attending. Additional Equipment Requests [facility] 08-20-2022 Note Patient: Ben oh Procedure Information Date/Time: 08/20/22 1030 Procedure: TRANSESOPHAGEAL ECHO (KINZA) Location: [facility] Clinical information reviewed: Allergies Meds Physical Exam Airway Mallampati: II Cardiovascular Rhythm: regular Rate: normal Dental Pulmonary Breath sounds clear to auscultation Abdominal Abdomen: soft Anesthesia Plan ASA 3 other (Moderate sedation) Anesthetic plan and risks discussed with patient. Use of blood products discussed with patient who consented to blood products. Plan discussed with fellow and attending. Additional Equipment Requests [facility] 08-06-2022 Note [id number] [facility] 08-06-2022 Hospital Discharge instructions Patient Education 08/06/2022 11:33:17 EU - Cystoscopy Discharge Instructions (CUSTOM) Cystoscopy Voiding after the procedure: there may be some pain, burning, urgency, frequency and blood tinged urine following the procedure. These symptoms usually resolve within 2-5 days. Drink the amount of fluid it takes to keep the urine pink to yellow or clear in color. Drinking enough water and fluids will help to ease any discomfort after your procedure. If you are having problems that seem out of the ordinary, please call. If unable to contact your physician and you feel it is an emergency, go to the nearest emergency room or call 911 Diet you may resume your normal diet. Activity you may resume your normal activities Call if you have a fever over 100 degrees. Follow Up Care 07/26/2022 11:55:16 With:Mekhi VERGARA Address: [facility] [address] [place] [address] Business (1) When: Unknown Comments:Office will call to schedule follow up [facility] 08-06-2022 Note Custom Cystoscopy ? Voiding after the procedure: there may be some pain, burning, urgency, frequency and blood tinged urine following the procedure. These symptoms usually resolve within 2-5 days. Drink the amount of fluid it takes to keep the urine pink to yellow or clear in color. Drinking enough water and fluids will help to ease any discomfort after your procedure. ? If you are having problems that seem out of the ordinary, please call. ? If unable to contact your physician and you feel it is an emergency, go to the nearest emergency room or call 911 ? Diet ? you may resume your normal diet. ? Activity ? you may resume your normal activities ? Call if you have a fever over 100 degrees. [facility] 08-05-[address] Cardiology - [facility] Subjective Ben Guadalupe is a 86 y.o. year old male patient who presents to clinic to further discuss the Watchman device. He is accompanied by his grand daughter Liza. Patient Active Problem List Diagnosis Chest pain Coronary arteriosclerosis Hypertensive disorder Left ventricular hypertrophy Mixed hyperlipidemia PAF (paroxysmal atrial fibrillation) (CMS/HCC) Blood loss anemia Bleeding hemorrhoid Family History Problem Relation Name Age of Onset Heart failure Mother Prostate cancer Father Coronary artery disease Brother Prostate cancer Brother Social History Tobacco Use Smoking status: Never Smokeless tobacco: Never Substance Use Topics Alcohol use: Yes Comment: occasional Drug use: Never HPI He has a fairly recent diagnosis of paroxysmal atrial fibrillation that was found during his admission in February, and follow-up event monitor showed recurrence of a.fib. He has a history of anemia along with significant bleeding hemorrhoids that required blood transfusion and surgery. For these reasons he is currently not on anticoagulation. He denies any current issues with bleeding. He has chronic LE swelling. He denies CP, dyspnea, orthopnea, PND, dizziness/LH, palpitations. He mobilizes with his scooter. Last HPI per Dr. Danielle: Ben is an 86-year-old man with history of mild coronary artery disease by cardiac catheterization in 2013, hypertension. He has history of DVT in the left leg many years ago. He has leg edema is related to venous insufficiency and lack of ambulation. This is chronic. His prior echocardiograms showed mild elevation of right sided pressure that do not explain the leg edema. He has tried compression socks in the past but couldn't tolerate them. I had recommended leg elevation. In early February 2022 he was admitted to the [facility] with palpitations and chest pain. He was found to have atrial fibrillation with rapid ventricular response that later reverted to sinus rhythm. He was also found to have significant anemia and large amount of rectal bleeding that appeared to be related to hemorrhoids, he received blood transfusion. He also had DAVID that resolved. At that time I evaluated him in the hospital and I recommended against any anticoagulation therapy due to his anemia and bleeding. I also recommended an event monitor to rule out recurrence of atrial fibrillation. This showed evidence of recurrence of atrial fibrillation. On 05/17/2022 he underwent surgery for hemorrhoids. He has not had bleeding since then. Today he reports that he has been doing reasonably well. He has had no recurrence of palpitations or chest pain since that episode in early February. He otherwise has chronic lower extremity edema. He uses a scooter to ambulate. No significant shortness of breath. Review of Systems Cardiovascular: Positive for leg swelling. Negative for chest pain, claudication, dyspnea on exertion, irregular heartbeat, near-syncope, orthopnea, palpitations, paroxysmal nocturnal dyspnea and syncope. Hematologic/Lymphatic: Negative. Musculoskeletal: Positive for arthritis, back pain and myalgias. All other systems reviewed and are negative. Objective Visit Vitals BP 125/71 (BP Location: Right arm, Patient Position: Sitting) Pulse 90 Ht 1.778 m (5' 10 ) Wt 88 kg (194 lb) SpO2 96% BMI 27.84 kg/m??? Smoking Status Never BSA 2.08 m??? Physical Exam Constitutional: Appearance: He is well-developed. He is not ill-appearing. HENT: Head: Normocephalic and atraumatic. Nose: Nose normal. Eyes: General: No scleral icterus. Pupils: Pupils are equal, round, and reactive to light. Neck: Thyroid: No thyromegaly. Vascular: No JVD. Cardiovascular: Rate and Rhythm: Normal rate and regular rhythm. Pulses: Radial pulses are 2+ on the right side. Heart sounds: Normal heart sounds. No murmur heard. No friction rub. No gallop. Pulmonary: Effort: Pulmonary effort is normal. No respiratory distress. Breath sounds: Normal breath sounds. No wheezing or rales. Chest: Chest wall: No tenderness. Abdominal: General: Bowel sounds are normal. There is no distension. Palpations: Abdomen is soft. Tenderness: There is no abdominal tenderness. Musculoskeletal: General: No swelling. Cervical back: Neck supple. Right lower le+ Pitting Edema present. Left lower le+ Pitting Edema present. Comments: Uses a scooter to ambulate Skin: General: Skin is warm and dry. Neurological: General: No focal deficit present. Mental Status: He is alert and oriented to person, place, and time. Psychiatric: Mood and Affect: Mood normal. Behavior: Behavior is cooperative. Judgment: Judgment normal. Allergies Allergies Allergen Reactions Oxycodone-Acetaminophen Other reaction(s): vomiting Tizani (more content not included)... [facility] 08-05-2022 Note Patient here to disc uss Watchman device per Maritza Kirkland CNP. He does not want to take AC for afib. Denies chest pain and SOB. Denies increase in LE edema. Review of Systems Constitutional: Positive for malaise/fatigue. Cardiovascular: Positive for leg swelling. Musculoskeletal: Positive for arthritis, back pain, joint pain, muscle weakness and myalgias. Neurological: Positive for weakness. All other systems reviewed and are negative. [facility] 07-30-2022 Note CONSULTATION CONSULTATION DATE: 07/30/2022 CHIEF COMPLAINT: Low back pain. HISTORY OF PRESENT ILLNESS: This is a very pleasant, 86-year-old gentleman who is known to the Pain Clinic. The patient had a lumbar epidural steroid injection, states he is still having 75+% improvement. He states he has not felt this good in a long time . The patient describes the pain as a 6/10. The patient ambulates with a motorized scooter. Standing, pushing activities, bending, climbing stairs aggravate the patient's pain. Sitting down, laying down and heat mitigate the patient's pain. The patient currently takes Minden 5/325 on a q.i.d. basis, Lyrica 75 mg h.s., baclofen on an intermittent basis. The patient's PAST MEDICAL HISTORY / SURGICAL HISTORY / REVIEW OF SYSTEMS are noted on the chart, along with the MEDICATION LIST, ALLERGIES and RADIOLOGICAL IMAGES. PHYSICAL EXAM: Upon physical examination, this is a very jocular, pleasant, 86- year-old gentleman, who does not appear to be in any acute distress. VITAL SIGNS: Stable at 143/79 with a heart rate of 83. The patient weighs 192 pounds. Today's visit was more of a conversation, as opposed to physical examination. The patient is bright, alert, oriented x3, engaging with very good short term/retirement memory. IMPRESSION: Current working diagnosis on the patient continues to be chronic low back pain, lumbar spinal canal stenosis, lumbar radiculitis, neuritis. The patient also has cervical arthrosis, cervical neuritis, radiculitis intermittent. PLAN: The patient is to apply heat rub to the affected area for symptomatic relief. Education was done. Questions/answers were done. The patient understands and would like to maintain. CC: Dr. Elliott [facility] 06-25-2022 Note CONSULTATION CONSULTATION DATE: 06/25/2022 CHIEF COMPLAINT: Low back pain, bilateral lower extremity pain. HISTORY OF PRESENT ILLNESS: This is a very pleasant, 86-year-old gentleman who is known to the Pain Clinic. The patient lives independently. The patient reports having low back pain 7/10 and radiating pain into his leg. It is a sharp pain. Twisting, pushing, getting up out of his motorized scooter/wheelchair aggravate the patient's pain. Lifting aggravates the pain. Heat mitigates the patient's pain. The patient currently takes Lyrica 75 mg b.i.d., Minden 5/325 q.i.d., baclofen 10 mg q.h.s. The patient was recently hospitalized for hemorrhoids and is anemic secondary to chronic bleed. The patient's PAST MEDICAL HISTORY / SURGICAL HISTORY / REVIEW OF SYSTEMS are noted on the chart, along with the MEDICATION LIST / ALLERGIES and RADIOLOGICAL IMAGES. PHYSICAL EXAM: Upon physical examination, this is a pleasant, cooperative gentleman, who does not appear to be in any acute distress. The patient is using a motorized scooter for mobility. The patient is alert, oriented x3. VITAL SIGNS: Stable at 163/85, with a heart rate of 80. The patient weighs 193 pounds.. HEAD: The patient maintains normal gesticulations. Conjunctival pallor is noted. LUNGS: Non-labored breathing. ABDOMEN: Soft, distended. BACK: Tenderness along the L5-S1 junction; however, not extreme. EXTREMITIES: No pedal edema. NEUROLOGICALLY: Motor weakness and hypoesthesia is noted along the L5-S1 distribution. Toe extensors are diminished bilaterally. PSYCHIATRICALLY: Affect is appropriate. IMPRESSION: Low back pain, bilateral lower extremity pain, lumbar radiculitis, lumbar degenerative disc disease, lumbar spinal canal stenosis, sarcopenia. PLAN: We will schedule the patient for a lumbar epidural steroid injection under fluoroscopy. In addition to this, the patient will receive testosterone cypionate 150 mg. Refill of baclofen has been given. The patient will be maintained on Lyrica 75 mg one tablet p.o. q.p.m., given the fact that the patient has difficulty with balance. The patient understands and would like to proceed. CC: Dr. Elliott [facility] 06-24-2022 Note Hypertension is stab le -continue amlodipine, cardizem, metoprolol, losartan, [facility] 06-24-[facility]22 Note -CIS0AB-ONHw: 5 -did not start anticoagulation and does not want to -will have him follow up with [place] HERRERA / Dr. Danielle for potential watchman device -follow up in 1 month -continue cardizem, metoprolol -per recent ECG he is SR, pulse check is regular ventricular rate, he denied all symptoms as he is typically symptomatic with a-fib -risks of stroke discussed with granddaughter and patient [facility] 06-24-[address] Cardiology Note [facility] Reason for follow up: a-fib, htn HPI: Ben Guadalupe is a 86 y.o. year old with past medical history of mild CAD, hypertension, DVT in the left leg with chronic venous insufficiency, rectal bleeding d/t hemorrhoids but is now s/p hemorroidectomy, brain bleed. He is here for follow-up regarding his A. fib and anticoagulation. He never started anticoagulation or got CBC as recommended from last note per granddaughter due to concerns of bleeding with his history of hemorrhoids with bleeding, brain bleed, and high risk of falls due to weakness and refusal for physical therapy. He deferred discussion to granddaughter: she was called, she reiterated they would not like to start an anticoagulation due to his history and risks. She was made aware of stroke risks per [id number] score of 5 (age, hypertension, diabetes, vascular disease). He just started 5mg amlodipine and has been tolerating dose. Him and granddaughter would like to proceed with work-up for watchman device. Review of Systems Constitutional: Negative for fever and malaise/fatigue. Cardiovascular: Positive for leg swelling (LLE, chronic venous insufficency, RLE is without edema). Negative for chest pain, irregular heartbeat, near-syncope and palpitations. Respiratory: Negative for shortness of breath and sleep disturbances due to breathing. Gastrointestinal: Negative for hematemesis, hematochezia and melena. Genitourinary: Negative for hematuria. Neurological: Positive for weakness (chronic, refuses PT per daughter). Negative for dizziness and light-headedness. All other systems reviewed and are negative. Previous HPI per Dr. Danielle 05/27/22: Ben is an 86-year-old man with history of mild coronary artery disease by cardiac catheterization in 2013, hypertension. He has history of DVT in the left leg many years ago. He has leg edema is related to venous insufficiency and lack of ambulation. This is chronic. His prior echocardiograms showed mild elevation of right sided pressure that do not explain the leg edema. He has tried compression socks in the past but couldn't tolerate them. I had recommended leg elevation. In early February 2022 he was admitted to the [facility] with palpitations and chest pain. He was found to have atrial fibrillation with rapid ventricular response that later reverted to sinus rhythm. He was also found to have significant anemia and large amount of rectal bleeding that appeared to be related to hemorrhoids, he received blood transfusion. He also had DAVID that resolved. At that time I evaluated him in the hospital and I recommended against any anticoagulation therapy due to his anemia and bleeding. I also recommended an event monitor to rule out recurrence of atrial fibrillation. This showed evidence of recurrence of atrial fibrillation. On 05/17/2022 he underwent surgery for hemorrhoids. He has not had bleeding since then. Today he reports that he has been doing reasonably well. He has had no recurrence of palpitations or chest pain since that episode in early February. He otherwise has chronic lower extremity edema. He uses a scooter to ambulate. No significant shortness of breath. PMH: Past Medical History: Diagnosis Date Anemia Atrial fibrillation (CMS/HCC) Coronary artery disease Hyperlipidemia Hypertension LVH (left ventricular hypertrophy) PSH: Past Surgical History: Procedure Laterality Date CARDIAC CATHETERIZATION SH: Social Determinants of Health Tobacco Use: Low Risk Smoking Tobacco Use: Never Smokeless Tobacco Use: Never Passive Exposure: Not on file Alcohol Use: Not on file Financial Resource Strain: Not on file Food Insecurity: Not on file Transportation Needs: Not on file Physical Activity: Not on file Stress: Not on file Social Connections: Not on file Intimate Partner Violence: Not on file Depression: Not on file Housing Stability: Not on file Allergies: Allergies Allergen Reactions Oxycodone-Acetaminophen Other reaction(s): vomiting Tizanidine Hallucinations Tramadol Hallucinations Weight: No results found for: PTWEIGHT Meds: Current Outpatient Medications on File Prior to Visit Medication Sig Dispense Refill albuterol 90 mcg/actuation inhaler inhale 1 puff by mouth and INTO THE LUNGS twice a day if needed allopurinol (Zyloprim) 300 mg tablet Take 1 tablet by mouth in the morning. amLODIPine (Norvasc) 10 mg tablet Take 1 tablet (10 mg) by mouth in the morning. (Patient taking differently: Take 5 mg by mouth in the morning.) 90 tablet 3 aspirin 81 mg EC tablet Take 1 tablet by mouth in the evening. atorvastatin (Lipitor) 20 mg tablet Take 1 tablet by mouth at bedtime. baclofen (Lioresal) 10 mg tablet Take 1 tablet by mouth at bedtime. cholecalciferol (Vitamin D-3) 25 MCG (1000 UT) (more content not included)... [facility] 06-24-2022 Note Patient here for 1 m o follow up re-starting Eliquis. Follow up CBC was not drawn yet. Denies chest pain, SOB, palpitations, and recent falls. Per Granddaughter he is not taking Eliquis. Just started amlodipine 5mg daily yesterday. Review of Systems Constitutional: Positive for malaise/fatigue. Cardiovascular: Positive for leg swelling. Musculoskeletal: Positive for arthritis, back pain, joint pain, muscle weakness and myalgias. Neurological: Positive for weakness. All other systems reviewed and are negative. [facility] 05-27-[address] Cardiology - [facility] Subjective Ben Guadalupe is a 86 y.o. year old male patient being seen for 2 mo follow up stress test. He is not anticoagulated due to anemia and bleeding hemorrhoids. He had hemorrhoidectomy last week at [facility]. Denies chest pain and SOB. Patient Active Problem List Diagnosis Chest pain Coronary arteriosclerosis Hypertensive disorder Left ventricular hypertrophy Mixed hyperlipidemia PAF (paroxysmal atrial fibrillation) (CMS/HCC) Blood loss anemia Bleeding hemorrhoid Family History Problem Relation Name Age of Onset Heart failure Mother Prostate cancer Father Coronary artery disease Brother Prostate cancer Brother Social History Tobacco Use Smoking status: Never Smokeless tobacco: Never Substance Use Topics Alcohol use: Yes Comment: occasional Drug use: Never HPI Ben is an 86-year-old man with history of mild coronary artery disease by cardiac catheterization in 2013, hypertension. He has history of DVT in the left leg many years ago. He has leg edema is related to venous insufficiency and lack of ambulation. This is chronic. His prior echocardiograms showed mild elevation of right sided pressure that do not explain the leg edema. He has tried compression socks in the past but couldn't tolerate them. I had recommended leg elevation. In early February 2022 he was admitted to the [facility] with palpitations and chest pain. He was found to have atrial fibrillation with rapid ventricular response that later reverted to sinus rhythm. He was also found to have significant anemia and large amount of rectal bleeding that appeared to be related to hemorrhoids, he received blood transfusion. He also had DAVID that resolved. At that time I evaluated him in the hospital and I recommended against any anticoagulation therapy due to his anemia and bleeding. I also recommended an event monitor to rule out recurrence of atrial fibrillation. This showed evidence of recurrence of atrial fibrillation. On 05/17/2022 he underwent surgery for hemorrhoids. He has not had bleeding since then. Today he reports that he has been doing reasonably well. He has had no recurrence of palpitations or chest pain since that episode in early February. He otherwise has chronic lower extremity edema. He uses a scooter to ambulate. No significant shortness of breath. Review of Systems Cardiovascular: Positive for leg swelling. Musculoskeletal: Positive for arthritis, back pain and myalgias. Objective Visit Vitals BP 149/83 (BP Location: Right arm, Patient Position: Sitting) Pulse 76 Ht 1.778 m (5' 10 ) Wt 90.7 kg (200 lb) SpO2 96% BMI 28.70 kg/m??? Smoking Status Never BSA 2.12 m??? Physical Exam Constitutional: Appearance: He is well-developed. He is not ill-appearing. HENT: Head: Normocephalic and atraumatic. Nose: Nose normal. Eyes: General: No scleral icterus. Pupils: Pupils are equal, round, and reactive to light. Neck: Thyroid: No thyromegaly. Vascular: No JVD. Cardiovascular: Rate and Rhythm: Normal rate and regular rhythm. Pulses: Radial pulses are 2+ on the right side. Heart sounds: Normal heart sounds. No murmur heard. No friction rub. No gallop. Pulmonary: Effort: Pulmonary effort is normal. No respiratory distress. Breath sounds: Normal breath sounds. No wheezing or rales. Chest: Chest wall: No tenderness. Abdominal: General: Bowel sounds are normal. There is no distension. Palpations: Abdomen is soft. Tenderness: There is no abdominal tenderness. Musculoskeletal: General: No swelling. Cervical back: Neck supple. Right lower le+ Pitting Edema present. Left lower le+ Pitting Edema present. Comments: Uses a scooter to ambulate Skin: General: Skin is warm and dry. Neurological: General: No focal deficit present. Mental Status: He is alert and oriented to person, place, and time. Psychiatric: Mood and Affect: Mood normal. Behavior: Behavior is cooperative. Judgment: Judgment normal. Allergies Allergies Allergen Reactions Oxycodone-Acetaminophen Other reaction(s): vomiting Tizanidine Hallucinations Tramadol Hallucinations Medications Current Outpatient Medications: albuterol 90 mcg/actuation inhaler, inhale 1 puff by mouth and INTO THE LUNGS twice a day if needed, Disp: , Rfl: allopurinol (Zyloprim) 300 mg tablet, Take 1 tablet by mouth in the morning., Disp: , Rfl: aspirin 81 mg EC tablet, Take 1 tablet by mouth in the evening., Disp: , Rfl: atorvastatin (Lipitor) 20 mg tablet, Take 1 tablet by mouth at bedtime., Disp: , Rfl: baclofen (Lioresal) 10 mg tablet, Take 1 tablet by mouth at bedtime., Disp: , Rfl: cholecalciferol (Vitamin D-3) 25 MCG (1000 UT) capsule, Take 2 capsules every day by oral route., Disp: , Rfl: dapagliflozin (Farxiga) 10 mg, Take 10 mg by mouth in the morning and at bedtime., Disp: , Rfl: dilTIAZem CD (Cardizem CD) 18 (more content not included)... [facility] 05-17-2022 Note HNO ID: [id number] Author: Minesh Levy APRN.CERAMIC WORKER Service: ? Author Type: Nurse Stationary Plant Operators Type: Anesthesia Procedure Notes Filed: 05/17/2022 11:19 AM Note Text: ANESTHESIOLOGY PROCEDURE NOTE PIV General Information Procedure Start Time/Medication Administration: 05/17/2022 10:15 AM Patient Location: OR Staffing Anesthesiologist: Kandice Guadalupe MD Performed by: anesthesiologist Preparation Sterility Preparation: hand hygiene performed prior to procedure, surgical cap used, mask used, skin prep agent completely dried prior to procedure Site Prep: alcohol Procedure Details Indication: need for IV access Needle Size/Type: 20 gauge angiocath Orientation: Left Location: Hand SIGNATURE: Minesh Levy APRN.CERAMIC WORKER PATIENT NAME: Ben Guadalupe DATE: May 17, 2022 TIME: 11:17 AM CSN: [id number] [facility] 05-17-2022 Note HNO ID: [id number] Author: Minesh Levy APRN.CERAMIC WORKER Service: ? Author Type: Nurse Stationary Plant Operators Type: Anesthesia Procedure Notes Filed: 05/17/2022 10:39 AM Note Text: ANESTHESIOLOGY PROCEDURE NOTE Airway General Information Procedure Start Time/Medication Administration: 05/17/2022 10:11 AM Patient location during procedure: OR Timeout Performed Pre-procedure: timeout performed Consent Obtained: Yes Patient identity confirmed: arm band and patient Staffing Anesthesiologist: Kandice Guadalupe MD CERAMIC WORKER: Minesh Levy APRN.CERAMIC WORKER Performed by: IGNAICO Indications and Patient Condition Indications for airway management: anesthesia Preoxygenated: yes anesthesia circuit Patient position: sniffing Method: asleep Difficult Mask: No Final Airway Details Final airway type: supraglottic airway Number of attempts at approach: 1 Final Supraglottic Airway: i-gel Size 5 Seal Adequate: yes Failed airway: no Unrecognized esophageal intubation: no Airway not difficult SIGNATURE: Minesh Levy APRN.CERAMIC WORKER PATIENT NAME: Ben Guadalupe DATE: May 17, 2022 TIME: 10:38 AM CSN: [id number] [facility] 05-17-2022 Note HNO ID: [id number] Author: Shruthi Valdez RN Service: Nursing Author Type: Registered Nurse Type: Nursing Progress Note Filed: 05/17/2022 10:04 AM Note Text: Other: Dr. Ruiz and Dr. Guadalupe aware of K+ of 3.0. Awaiting orders. [facility] 05-16-2022 Miscellaneous Notes Attempt to call patient to review prep for surgery tomorrow, no answer, no voicemail available. documented in this encounter [facility] 05-10-2022 Note HNO ID: [id number] Author: Donna Arriaga RN Service: ? Author Type: Registered Nurse Type: Progress Notes Filed: 05/10/2022 2:22 PM Note Text: EUA, ColonoscopyCOLON AND RECTAL SURGERY Nursing Education Visit Ben Guadalupe 1935 Surgeon: Tristin Wilcox Reason for Education: [x] Prep for Surgery [] Wound care [] Activity [] Bowel habits and medications [] Additional questions about surgery [] Nutrition / Diet [] Stoma care / function [] Other Present for Education: patient and son Surgery: EUA, colonoscopy, hemorrhoidectomy Patient's overall appearance: GENERAL APPEARANCE: alert, no distress, cooperative, smiling The following details surrounding surgery were discussed: Preoperative prep: Miralax , NPO after midnight Length of hospital stay: OP Anticipated diet at time of discharge from the hospital: clear liquids to regular Anticipated activity restrictions at time of discharge from the hospital: No heavy lifting, pushing, or pulling for 2-4 weeks. Specific questions and topics discussed with the patient: None at this time Prior to surgery, the following consults have been requested: Anesthesia Prior to surgery, the following lab tests have been ordered: EKG and Labs Additional counseling AND materials provided: Patient given verbal and written preop instructions and voices comprehension and compliance. [x]Pre-op information [x]Bowel prep instructions [x]Diet education clear liquids to regular as tolerated []Surgical approach information []Surgeon specific instructions [x]Facility directions / map Donna Arriaga RN Time spent on patient education: 20 minutes [facility] 05-10-2022 History of Present illness Narrative EUA, ColonoscopyCOLON & RECTAL SURGERY Nursing Education Visit Ben Guadalupe 1935 Surgeon: Tristin Wilcox Reason for Education: [x] Prep for Surgery [] Wound care [] Activity [] Bowel habits and medications [] Additional questions about surgery [] Nutrition / Diet [] Stoma care / function [] Other Present for Education: patient and son Surgery: EUA, colonoscopy, hemorrhoidectomy Patient's overall appearance: GENERAL APPEARANCE: alert, no distress, cooperative, smiling The following details surrounding surgery were discussed: Preoperative prep: Miralax , NPO after midnight Length of hospital stay: OP Anticipated diet at time of discharge from the hospital: clear liquids to regular Anticipated activity restrictions at time of discharge from the hospital: No heavy lifting, pushing, or pulling for 2-4 weeks. Specific questions and topics discussed with the patient: None at this time Prior to surgery, the following consults have been requested: Anesthesia Prior to surgery, the following lab tests have been ordered: EKG and Labs Additional counseling & materials provided: Patient given verbal and written preop instructions and voices comprehension and compliance. [x]Pre-op information [x]Bowel prep instructions [x]Diet education clear liquids to regular as tolerated []Surgical approach information []Surgeon specific instructions [x]Facility directions / map Donna Arriaga RN Time spent on patient education: 20 minutes documented in this encounter [facility] 05-10-2022 Note Education (KADIE) BEN GUADALUPE ([id number]) 1935 M Date Time Provider Department 05/10/22 TRISTIN WILCOX Reason for Visit: Patient Education [91] During your visit today, we recorded the following information about you: Allergies As of Date: 05/10/2022 Noted Allergy Reaction TIZANIDINE 05/11/2019 1 - Mental Status Change 11 - Vomiting OXYCODONE-ACETAMINOPHEN 06/03/2016 11 - Vomiting Comments: Other reaction(s): vomiting Date Reviewed: 05/10/2022 Reviewed by: Afia Downing PA-C - Fully Assessed Prescriptions as of 05/10/2022 - famotidine (PEPCID) 20 mg tablet Take 1 tablet by mouth daily at bedtime. 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 - tamsulosin (FLOMAX) 0.4 mg Take 0.4 mg by mouth once daily. - furosemide (LASIX) 40 mg tablet Take 40 mg by mouth once daily. - ferrous sulfate 325 mg (65 mg iron) EC tablet Take 325 mg by mouth daily with breakfast. - dilTIAZem CR (TIAZAC, TAZTIA XT) 180 mg 24 hr capsule Take 180 mg by mouth once daily. - magnesium oxide (MAG-OX) 400 mg (241.3 mg magnesium) tablet Take 400 mg by mouth once daily. - dapagliflozin (FARXIGA) 10 mg tablet Take by mouth daily with breakfast. - pregabalin (LYRICA) 50 mg capsule Take 50 mg by mouth three times daily. - atorvastatin (LIPITOR) 20 mg tablet Take 20 mg by mouth once daily. - baclofen (LIORESAL) 10 mg tablet Take 10 mg by mouth three times daily. - psyllium husk (METAMUCIL ORAL) Take by mouth. - donepezil (ARICEPT) 10 mg tablet Take 10 mg by mouth daily at bedtime. - CHOLECALCIFEROL, VITAMIN D3, (D3-2000 ORAL) Take by mouth once daily. - potassium chloride (K-ANDI, KLOR-CON) 20 mEq packet Take 20 mEq by mouth three times daily. - aspirin, enteric coated (ASPIRIN, ENTERIC COATED) 81 mg EC tablet Take 81 mg by mouth once daily. - metoprolol tartrate, short acting, (LOPRESSOR) 25 mg tablet Take 25 mg by mouth twice daily. - allopurinol (ZYLOPRIM) 300 mg tablet Take 300 mg by mouth once daily. - dicyclomine (BENTYL) 20 mg tablet Take 20 mg by mouth once daily. - losartan (COZAAR) 100 mg tablet Take 100 mg by mouth once daily. - MULTIVITAMIN ORAL Take by mouth once daily. - folic acid-Vit B6-Vit B12 (FOLTX) 2.5-25-2 mg tab Take 1 tablet by mouth once daily. - nitroglycerin sublingual (NITROQUICK) 0.4 mg SL tablet Dissolve 0.4 mg under the tongue every 5 minutes as needed. - fluticasone (FLONASE) 50 mcg/actuation nasal spray Use 2 Sprays in each nostril once daily. - ALBUTEROL SULFATE (PROVENTIL INHALATION) Inhale as instructed. - dorzolamide (TRUSOPT) 2 % ophthalmic solution three times daily. - ondansetron orally disintegrating (ZOFRAN ODT) 4 mg disintegrating tablet Take 4 mg by mouth every 8 hours as needed. Encounter Status:Closed by DONNA ARRIAGA on 05/10/22 [facility] 05-10-2022 History and physical note HISTORY AND PHYSICAL EXAMINATION SERVICE DATE: May 09, 2022 SERVICE TIME: 1:37 PM PRIMARY CARE PHYSICIAN: Franky Veronica MD REASON FOR VISIT: Ben Guadalupe is a 86 year old male who is scheduled for EXAM UNDER ANESTHESIA RECTAL, HEMORRHOIDECTOMY EXTERNAL AND INTERNAL 2 OR MORE COLUMNS/GROUPS, COLONOSCOPY WITH BIOPSY at the request of Dr. Tristin Wilcox for consultation. My final recommendation will be communicated back to the requesting physician by way of shared medical record or letter. The patient has the following: ACTIVE PROBLEM LIST History of Prostate Cancer Iron Deficiency Anemia, Unspecified Benign Prostatic Hyperplasia With Lower Urinary Tract Symptoms Radiculopathy, Cervical Region Other Hemorrhoids Calculus of Kidney Chronic Kidney Disease, Stage 4 (Severe) (Hcc) Chronic Obstructive Pulmonary Disease (Hcc) Dementia in Other Diseases Classified Elsewhere, Unspecified Severity, Without Behavioral Disturbance, Psychotic Disturbance, Mood Disturbance, and Anxiety (Hcc) Arteriosclerosis of Coronary Artery Diabetes Mellitus (Hcc) Gastroesophageal Reflux Disease With Esophagitis Gout Essential (Primary) Hypertension History of Primary Malignant Neoplasm of Urinary Bladder Hypothyroidism Unspecified Intracranial Hemorrhage (Hcc) Paf (Paroxysmal Atrial Fibrillation) (Hcc) Sleep Apnea History of Dvt (Deep Vein Thrombosis) Subjective CHIEF COMPLAINT: Pre-op exam HPI: Ben Guadalupe is a 86 year old male who presents for pre-anesthesia consultation for upcoming procedure. Patient has a history of 4th degree hemorrhoids which have been present years but worse when started on AC a few months ago for new onset Afib. Patient needed a transfusion for the bleeding. Denies any fever, chills, nausea, vomiting, chest pain, abdominal pain, SOB. Above procedure is recommended to manage symptoms. Patient is scheduled for surgery on 05/17/2022. PAST MEDICAL HISTORY Diagnosis Date Arteriosclerosis of coronary artery 02/12/2022 Atrial fibrillation (HCC) Benign prostatic hyperplasia with lower urinary tract symptoms 11/27/2021 Calculus of kidney 02/18/2022 Chronic kidney disease, stage 4 (severe) ([facility]) 12/20/2021 Chronic obstructive pulmonary disease ([facility]) 11/27/2021 Deep vein thrombosis (DVT) ([facility]) 1989 LLE- unprovoked Dementia in other diseases classified elsewhere, unspecified severity, without behavioral disturbance, psychotic disturbance, mood disturbance, and anxiety ([facility]) 11/27/2021 Diabetes ([facility]) Diabetes mellitus ([facility]) 11/01/2021 Essential (primary) hypertension 08/13/2017 Gastroesophageal reflux disease with esophagitis 05/10/2022 History of DVT (deep vein thrombosis) 05/10/2022 History of primary malignant neoplasm of urinary bladder 04/22/2022 History of prostate cancer 08/01/2015 Hypothyroidism unspecified 07/10/2021 Intracranial hemorrhage ([facility]) 05/10/2022 Neuropathy PAF (paroxysmal atrial fibrillation) ([facility]) 03/18/2022 Parkinson's disease ([facility]) PONV (postoperative nausea and vomiting) Radiculopathy, cervical region 04/15/2022 Sleep apnea PAST SURGICAL HISTORY Procedure Laterality Date ADDTL NECK SPINE FUSION ANES TRANSURETHRAL RESECTION OF BLADDER TUMOR BACK SURGERY HX fusion JOINT REPLACEMENT HX Left knee PAST SURGICAL HISTORY OF 1970 hemorrhoidectomy PAST SURGICAL HISTORY OF hernia repair groin PAST SURGICAL HISTORY OF hematoma evacuation PAST SURGICAL HISTORY OF brachytherapy REMOVAL OF KIDNEY STONE FAMILY HISTORY Problem Relation Age of Onset Anesthesia Problems No Family History SOCIAL HISTORY: Social History Tobacco Use Smoking status: Never Smokeless tobacco: Never Substance Use Topics Alcohol use: Yes Comment: Rarely Drug use: Never MEDICATIONS: Prior to Admission medications as of 05/10/22 1104 Medication Sig Last Dose Taking famotidine (PEPCID) 20 mg tablet Take 1 tablet by mouth daily at bedtime. 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 Taking Yes tamsulosin (FLOMAX) 0.4 mg Take 0.4 mg by mouth once daily. Taking Yes furosemide (LASIX) 40 mg tablet Take 40 mg by mouth once daily. Taking Yes ferrous sulfate 325 mg (65 mg iron) EC tablet Take 325 mg by mouth daily with breakfast. Taking Yes dilTIAZem CR (TIAZAC, TAZTIA XT) 180 mg 24 hr capsule Take 180 mg by mouth once daily. Taking Yes magnesium oxide (MAG-OX) 400 mg (241.3 mg magnesium) tablet Take 400 mg by mouth once daily. Taking Yes dapagliflozin (FARXIGA) 10 mg tablet Take by mouth daily with breakfast. Taking Yes pregabalin (LYRICA) 50 mg capsule Take 50 mg by mouth three times daily. Taking Yes atorvastatin (LIPITOR) 20 mg tablet Take 20 mg by mouth once daily. Taking Yes baclofen (LIORESAL) 10 mg tablet Take 10 mg by mouth three times daily. Taking Yes psyllium husk (METAMUCIL ORAL) Take by mouth. Taking Yes donepezil (ARICEPT) 10 mg tablet Take 10 mg by mouth daily at bedtime. Taking Yes CHOLECALCIFEROL, VITAMIN D3, (D3-2000 ORAL) Take by mouth once daily. Taking Yes potassium chloride (K-ANDI, KLOR-CON) 20 mEq packet Take 20 mEq by mouth three times daily. Taking Yes aspirin, enteric coated (ASPIRIN, ENTERIC COATED) 81 mg EC tablet Take 81 mg by mouth once daily. Taking Yes metoprolol tartrate, short acting, (LOPRESSOR) 25 mg tablet Take 25 mg by mouth twice daily. Taking Yes allopurinol (ZYLOPRIM) 300 mg tablet Take 300 mg by mouth once daily. Taking Yes dicyclomine (BENTYL) 20 mg tablet Take 20 mg by mouth once daily. Taking Yes losartan (COZAAR) 100 mg tablet Take 100 mg by mouth once daily. Taking Yes MULTIVITAMIN ORAL Take by mouth once daily. Taking Yes folic acid-Vit B6-Vit B12 (FOLTX) 2.5-25-2 mg tab Take 1 tablet by mouth once daily. Taking Yes nitroglycerin sublingual (NITROQUICK) 0.4 mg SL tablet Dissolve 0.4 mg under the tongue every 5 minutes as needed. Taking Yes fluticasone (FLONASE) 50 mcg/actuation nasal spray Use 2 Sprays in each nostril once daily. Taking Yes ALBUTEROL SULFATE (PROVENTIL INHALATION) Inhale as instructed. Taking Yes dorzolamide (TRUSOPT) 2 % ophthalmic solution three times daily. Taking Yes ondansetron orally disintegrating (ZOFRAN ODT) 4 mg disintegrating tablet Take 4 mg by mouth every 8 hours as needed. Taking Yes No medication comments found. CURRENT ALLERGIES: ALLERGIES Allergen Reactions Tizanidine Mental Status Change, Vomiting Oxycodone-Acetamino* Vomiting Other reaction(s): vomiting COVID VACCINATION STATUS: Fully vaccinated REVIEW OF SYSTEMS: PAIN ASSESSMENT: General: No weight loss, malaise or fevers. Neuro: +Dementia - on donepezil Respiratory: +ASHLIE +COPD- stable on albuterol PRN Denies SOB with activity, recent bronchitis, pneumonia, Cardiovascular: +PAF- on ASA, Metoprolol and diltiazem +CAD- s/p cardiac cath 2012, on ASA, BB and statin +HTN- controlled with diltiazem 180 mg daily, losartan 25 mg daily, metoprolol tartrate 25 mg twice daily +h/o DVT LLE +chronic LE edema Cards: Dr. Danielle [facility] 03/19/22 Denies any history of IL, CHF,PE, arrhythmias or murmurs. Denies CP, SOB, orthopnea, PND, LE edema, palpitations, syncope, lightheadedness or dizziness. GI: No history of GI symptoms or problems. No history of esophageal varices, recent ascites, or ETOH greater than 2 drinks per day. +GERD : Denies dysuria, hematuria, recent UTIs, incontinence, nocturia, history of kidney stones or CKD. Endocrine: +T2DM- Farxiga 10 mg daily, Hematology: +acute blood loss anemia Oncology: +h/o prostate cancer s/p brachytherapy +bladder cancer- s/p TURBT Psych: No history of psychiatric symptoms or problems. Musculoskeletal: Negative for joint pain or swelling, back pain or muscle pain. Skin: Negative for lesions, rash and itching. Objective PHYSICAL EXAM: VITALS: BP 124/75 Pulse 86 Temp (Src) 97.8 (Temporal) Ht 5' 10 (1.78m) Wt 190 lb (86.2kg) SpO2 97% BMI 27.26 kg/(m^2). General: Alert and oriented, No acute distress, Healthy appearance, wheelchair bound Skin: Normal color, no rash, no lesions. HEENT: EOM, pupils equal, round and reactive. Cardiovascular: Normal S1 & S2, no rubs, murmurs or gallops. No JVD. Pulse regular. Lungs: Normal breath sounds, no wheezes or crackles. Abdomen: Soft, non-tender, no rigidity. Extremities: left lower extremity swelling Neurological: Normal cognition and motor skills. Pulses: Radial pulses; left 2+ / right 2+. Diagnostic tests reviewed for today's visit: Lab Value Units Date High Low HB 12.2 g/dL 05/10/2022 17.0 13.0 HCT 38.9 % 05/10/2022 51.0 39.0 WBC 4.75 k/uL 05/10/2022 11.00 3.70 PLT 135 k/uL 05/10/2022 400 150 NA No results within date range. K No results within date range. GLUC No results within date range. BUN No results within date range. CREAT No results within date range. PTSEC No results within date range. INR No results within date range. APTT No results within date range. ALT No results within date range. AST No results within date range. TBILI No results within date range. TSH No results within date range. Lab Value Units Date High Low HCGQT No results within date range. UHCG No results within date range. HCG, BODY* No results within date range. Lab Value Units Date High Low ABORHD No results within date range. ABSCREEN No results within date range. No results found for: HBA1C Recent Results (from the past 8760 hour(s)) ECG COMPLETE Collection Time: 05/10/22 11:57 AM Result Value Ventricular Rate 76 Atrial Rate 76 P-R Interval 130 QRS Duration 134 QT Interval 442 QTC Calculation (Bazett) 497 Calculated P [place] 37 Calculated R [place] 64 Calculated T [place] -10 Impression NORMAL SINUS RHYTHM COMPLETE RIGHT BUNDLE BRANCH BLOCK INFERIOR T WAVE ABNORMALITY ABNORMAL ECG No results found for this or any previous visit (from the past 70338 hour(s)). OSH Cardiovascular testing ABIs 10/11/2021: Normal arterial evaluation of the lower extremities without hemodynamic impairment [right 1.28, left 1.28]. Event monitor 02/06/2022 to 03/07/2022: Sinus rhythm with run of wide complex irregular tachycardia possibly atrial fibrillation with aberrant conduction. Echocardiogram 02/04/2022: Global left ventricular systolic function is normal; visually estimated ejection fraction is 55 to 60%. No significant wall motion abnormalities. Mild left ventricular hypertrophy. Diastolic function is normal. The right atrium is mildly dilated. The right ventricle is mildly dilated with decreased systolic function. Mild tricuspid regurgitation. Moderately elevated right-sided pressures. Anterior free space; trivial effusion versus fat pad. ECG 02/02/2022: Sinus rhythm, right bundle branch block. Compared to ECG of 02/02/2022 5:52 AM atrial fibrillation is no longer present. Cardiac cath 11/12/2012: mild disease in the LAD (20%) with sluggish flow. EF 65% by LV gram. Assessment/Plan Radiculopathy, cervical region Assessment: s/p cervical fusion Dementia in other diseases classified elsewhere, unspecified severity, without behavioral disturbance, psychotic disturbance, mood disturbance, and anxiety (HCC) Assessment: stable on Donepezil -A&O x3 Intracranial hemorrhage (HCC) Assessment: ~9 years ago while on AC - surgically evacuated Essential (primary) hypertension Assessment: controlled with diltiazem 180 mg daily, losartan 25 mg daily, metoprolol tartrate 25 mg twice daily -BP 124/75 today Sleep apnea Assessment: noncompliant with CPAP Chronic obstructive pulmonary disease (HCC) Assessment: Per CE review -stable on albuterol PRN, last used a few weeks ago -denies any new or worsening SOB -Sp02 97% on RA -Lungs CTA Arteriosclerosis of coronary artery Assessment: s/p cardiac cath 2012(mild disease in LAD), on ASA, BB and statin -denies any recent angina -EF 55-60% on echo 02/2022 -Limited functional capacity due to back pain and poor balance -Follows with Dr. Shashi FITCH 03/19/22 PAF (paroxysmal atrial fibrillation) (HCC) Assessment: admitted to hospital 02/2022 with chest pain and palpitations, found to be in Afib which reverted back to sinus rhythm -EF 60% 02/04/22 -Event monitor 02/06-03/07/22- Sinus rhythm with run of wide complex irregular tachycardia possibly atrial fibrillation with aberrant conduction. -CONSTANTINE with cards on 03/19/22 -AC not recommended due to significant bleeding from hemorrhoids -On ASA, Metoprolol and diltiazem -RRR on exam today History of DVT (deep vein thrombosis) Assessment: h/o DVT LLE long time ago -residual chronic LLE edema Gastroesophageal reflux disease with esophagitis Assessment: stable on pepcid Chronic kidney disease, stage 4 (severe) (HCC) Assessment: h/o DAVID 02/2022 during admission for blood loss and PAF -pending BMP today, no recent labs Calculus of kidney Assessment: stable, kidney stones Hypothyroidism unspecified Assessment: stable on Synthroid Diabetes mellitus (HCC) Assessment: controlled with Farxiga 10 mg daily -does not check BS at home -A1C 5.9% 02/2022 -pending A1C today Iron deficiency anemia, unspecified Assessment: due to blood loss from hemorrhoids -Hgb 12.2 05/10/22 History of prostate cancer Assessment: s/p brachytherapy History of primary malignant neoplasm of urinary bladder Assessment: s/p TURBT -annual surveillance with cystoscopies Gout Assessment: stable on allopurinol METS: Walk indoors, such as around the house (1.75 METs) Do light work around the house, such as dusting or washing dishes (2.70 METs) Patient denies any chest pain or undue shortness of breath with the above physical activity. Poor functional capacity due to back pain and poor balance ASA Class: 3 ANESTHESIA FINDINGS: Intubation History: No history of difficult intubation Significant Anesthesia Considerations: None Airway Exam: General: Normal appearance Mallampati Score is CLASS I ULBT: Class I - Lower incisors can bite the upper lip above the haley line Neck: Normal appearance and function, Distance from hyoid to mentum during neck extension is at least 3 finger breaths Mouth: Normal tongue size and Mouth opening greater than 2 finger breaths Dentition:intact, 4 upper front permanent bridge, missing a few molars Airway History: No abnormal airway history STOP BANG Score: ASHLIE does not use CPAP/BiPAP PLAN Pt optimally prepared for surgery, pending labs and EKG CONSULTS: Patient does not require consults for optimization at this time. The Following Tests/Procedures Have Been Initiated: Labs and EKG per surgical service Planned Anesthetic: Per anesthesia choice Instructions Given to Patient: Instructions located in the after visit summary. Patient given verbal and written preop instructions and voices comprehension and compliance. SIGNATURE: Afia Downing PA-C PATIENT NAME: Ben Guadalupe DATE: May 10, 2022 TIME: 1:37 PM documented in this encounter [facility] 05-09-2022 Instructions Afia Downing PA-C - 05/09/2022 12:36 PM EDT PATIENT PREOPERATIVE INSTRUCTIONS [facility]raine* has scheduled you for your procedure at this surgery center: [facility] [place] Scheduling Office: [phone] --[address] [place] [address]. Please read below carefully for your personalized instructions. Dietary Restrictions: - No solid food after midnight. - You may have 12 ounces of clear liquids (water, clear juices such as apple juice or gatorade, carbonated beverages, clear tea, black coffee, jello) until 2 hours before scheduled arrival at facility. Medications: Unless instructed differently below, stay on all of your medications until your surgery. Approved medications to take the morning of surgery with a sip of water: Metoprolol, Diltiazem, Pepcid, Synthroid, Flomax, Lyrica, Lipitor, Allopurinol Do not take losartan the night before or the morning of surgery - No diabetic medication the morning of surgery. - If you take Invokana, Farxiga or Jardiance, hold 3 day pre-op If you take any medications for erectile dysfunction-Cialis (Tadalafil), Levitra, Staxyn (Vardenafil) Viagra (Sildenenafil please do not take these for 48 hours before surgery. If you start any new medications after today's visit, please contact the surgeon's office. Blood Thinning Medications: - Stop NSAIDS (Ibuprofen, Advil, Aleve, Motrin, Celebrex, Mobic, etc.) 7 days before surgery, as directed by your surgeon. - Do NOT stop aspirin or other anticoagulants without consulting with your gear setter or prescribing physician. - Stop Vitamin E, ALL multi-vitamins, herbals and dietary supplements 7 days before surgery. - You may take Tylenol (Acetaminophen) or any of your pain medications that do not contain aspirin or NSAIDS as needed. Important Reminders: - If you use CPAP/BIPAP, bring the machine with you to the surgery center. - If you are prescribed inhalers for breathing, continue using them. - Candy, mints, and tobacco products are NOT permitted the morning of surgery. - Hearing aids, dentures and glasses may be worn the morning of surgery. - NO jewelry, body piercings, makeup, hairpins or contacts are to be worn the day of surgery. If you develop symptoms such as a fever, cold, or flu, or have other changes to your health within TWO DAYS of scheduled surgery or the morning of surgery, please contact the surgery center above. Personal Belongings: -Please have photo ID and insurance cards. -If you do not have a copy of advance directives on file with us, please bring a copy with you on the day of surgery. - Leave ALL valuables and money at home or with family members. For Outpatient Procedures: - YOU MUST HAVE A RESPONSIBLE VIDEO SOFTWARE ENGINEER TAKE YOU HOME. A TALENT SPECIALIST OR [employer]ER CANNOT BE MADE A RESPONSIBLE VIDEO SOFTWARE ENGINEER. - We recommend that a responsible person stays with you overnight to take care of you. - You cannot stay in a hotel alone after outpatient surgery. You will not be permitted to have your surgery, if you do not have someone to take care of you. Arrival Time for Surgery: - To obtain your arrival time for surgery, call your physician's office the day before your surgery. - If your surgery is scheduled for Friday, call the Friday before. Your surgeon s medical scheduler will tell you what time to call the office. - If you have not reached the departmental medical scheduler by 5 P.M., call [phone] after 5 P.M. the day before your surgery. Please be aware that emergency situations arise, which may delay or change your surgical time. If this happens, we will notify you as soon as possible and regret any inconvenience. If you already have an Advance Directive, please fax a copy to [phone] or email to for it to be added to your chart. If you do not have an Advance Directive, you can find the appropriate form and more information at [email or web address]. We recommend that you complete the Advance Directive form found on the website and bring it with you the day of your surgery. It can be witnessed and scanned into your chart that day. Afia Downing PA-C documented in this encounter [facility] 04-25-2022 Miscellaneous Notes The Patient's granddaughter ( Milly Guadalupe) is calling to confirm surgery date, get all testing scheduled for her grandfather. Please call her at : [phone] at 11:30 AM or later, as she is at an appointment now. Thank you. documented in this encounter [facility] 04-24-2022 Miscellaneous Notes SPECIALTY CARE COORDINATION FOLLOW-UP NOTE Message left Pt to call in to discuss setting up surgery Offered 05/17/22 surgical date Any pre-operative business date within 30 days of surgical date Call back number left Signature Marika Zuñiga RN April 24, 2022 documented in this encounter [facility] 04-22-2022 Hospital Discharge instructions Patient Education 04/22/2022 16:18:58 Prostate Cancer Prostate Cancer The prostate is a walnut-sized gland that is involved in the production of semen. It is located below a man's bladder, in front of the rectum. Prostate cancer is the abnormal growth of cells in the prostate gland. What are the causes? The exact cause of this condition is not known. What increases the risk? This condition is more likely to develop in men who: Are older than age 65. Are -[place]. Are obese. Have a family history of prostate cancer. Have a family history of breast cancer. What are the signs or symptoms? Symptoms of this condition include: A need to urinate often. Weak or interrupted flow of urine. Trouble starting or stopping urination. Inability to urinate. Pain or burning during urination. Painful ejaculation. Blood in urine or semen. Persistent pain or discomfort in the lower back, lower abdomen, hips, or upper thighs. Trouble getting an erection. Trouble emptying the bladder all the way. How is this diagnosed? This condition can be diagnosed with: A digital rectal exam. For this exam, a health care provider inserts a gloved finger into the rectum to feel the prostate gland. A blood test called a prostate-specific antigen (PSA) test. An imaging test called transrectal ultrasonography. A procedure in which a sample of tissue is taken from the prostate and examined under a microscope (prostate biopsy). Once the condition is diagnosed, tests will be done to determine how far the cancer has spread. This is called staging the cancer. Staging may involve imaging tests, such as: A bone scan. A CT scan. A PET scan. An MRI. The stages of prostate cancer are as follows: Stage I. At this stage, the cancer is found in the prostate only. The cancer is not visible on imaging tests and it is usually found by accident, such as during a prostate surgery. Stage II. At this stage, the cancer is more advanced than it is in stage I, but the cancer has not spread outside the prostate. Stage III. At this stage, the cancer has spread beyond the outer layer of the prostate to nearby tissues. The cancer may be found in the seminal vesicles, which are near the bladder and the prostate. Stage IV. At this stage, the cancer has spread other parts of the body, such as the lymph nodes, bones, bladder, rectum, liver, or lungs. How is this treated? Treatment for this condition depends on several factors, including the stage of the cancer, your age, personal preferences, and your overall health. Talk with your health care provider about treatment options that are recommended for you. Common treatments include: Observation for early stage prostate cancer (active surveillance). This involves having exams, blood tests, and in some cases, more biopsies. For some men, this is the only treatment needed. Surgery. Types of surgeries include: ?Open surgery. In this surgery, a larger incision is made to remove the prostate. ?A laparoscopic prostatectomy. This is a surgery to remove the prostate and lymph nodes through several, small incisions. It is often referred to as a minimally invasive surgery. ?A robotic prostatectomy. This is a surgery to remove the prostate and lymph nodes with the help of a robotic arm that is controlled by a computer. ?Orchiectomy. This is a surgery to remove the testicles. ?Cryosurgery. This is a surgery to freeze and destroy cancer cells. Radiation treatment. Types of radiation treatment include: ?External beam radiation. This type aims beams of radiation from outside the body at the prostate to destroy cancerous cells. ?Brachytherapy. This type uses radioactive needles, seeds, wires, or tubes that are implanted into the prostate gland. Like external beam radiation, brachytherapy destroys cancerous cells. An advantage is that this type of radiation limits the damage to surrounding tissue and has fewer side effects. High-intensity, focused ultrasonography. This treatment destroys cancer cells by delivering high-energy ultrasound waves to the cancerous cells. Chemotherapy medicines. This treatment kills cancer cells or stops them from multiplying. Hormone treatment. This treatment involves taking medicines that act on one of the male hormones (testosterone): ?By stopping your body from producing testosterone. ?By blocking testosterone from reaching cancer cells. Follow these instructions at home: Take [id number] and prescription medicines only as told by your health care provider. Maintain a healthy diet. Get plenty of sleep. Consider joining a support group for men who have prostate cancer. Meeting with a support group may help you learn to cope with the stress of having cancer. Keep all follow-up visits as told by your health care provider. This is important. If you have to go to the hospital, notify your cancer specialist (oncologist). Treatment for prostate cancer may affect sexual function. Continue to have intimate moments with your partner. This may include touching, holding, hugging, and caressing. Contact a health care provider if: You have trouble urinating. You have blood in your urine. You have pain in your hips, back, or chest. Get help right away if: You have weakness or numbness in your legs. You cannot control urination or your bowel movements (incontinence). You have trouble breathing. You have sudden chest pain. You have chills or a fever. Summary The prostate is a walnut-sized gland that is involved in the production of semen. It is located below a man's bladder, in front of the rectum. Prostate cancer is the abnormal growth of cells in the prostate gland. Treatment for this condition depends on several factors, including the stage of the cancer, your age, personal preferences, and your overall health. Talk with your health care provider about treatment options that are recommended for you. Consider joining a support group for men who have prostate cancer. Meeting with a support group may help you learn to cope with the stress of having cancer. This information is not intended to replace advice given to you by your health care provider. Make sure you discuss any questions you have with your health care provider. Document Released: 06/23/2006 Document Revised: 06/05/2018 Document Reviewed: 03/03/2017 [employer] Patient Education 2020 Last 2 Left. Follow Up Care 02/25/2022 17:01:47 With:URSULA WORKMAN, Mekhi Oh, URL Address: [facility] [address] [place] [address]- [phone] When:10/21/2022 [facility] 04-17-2022 History and physical note COLORECTAL SURGERY New Patient Visit April 17, 2022 Chief Complaint: Hemorrhoids History of Present Illness: Ben Guadalupe is a 86 year old year old male with h/o hemorrhoids for 30 years. A few months ago he had afib, started blood thinners and had a lot of bleeding, needing transfusion. Stopped the blood thinners since.Taking aspirin. H/o excision thrombosed hemorrhoid in the 70s. Last colonoscopy on September 21. From chart review: Colonoscopy completed 09/21/[address] Long revealed tubular adenoma and hyperplastic polyp removed from cecum, 4 tubular adenomas removed from ascending colon, tubular adenoma removed from transverse colon, diverticulosis, hemorrhoids - Dr. Long recommended for patient to have no repeat colonoscopies. Patient was previously evaluated 08/21/2021 and had previous EGD 07/30/2021 that revealed tight schatzki's ring-disrupted with cold forceps, mild gastric erosions, small hiatal hernia, duodenal polyp that pathology revealed regenerative changes, negative for abscess, negative for granuloma, negative for atrophy, negative for dysplasia, stomach biopsy revealed gastric mucosa with mild reactive gastropathy, negative for intestinal metaplasia, negative for H. pylori. Patient currently following Dr. Vergara from urology for history of prostate cancer. Patient had reported dysphagia that improved following EGD and was ordered to have modified barium swallow and x-ray of esophagus completed?not done. PAST MEDICAL HISTORY Diagnosis Date Diabetes (HCC) Neuropathy Parkinson's disease (HCC) Sleep apnea PAST SURGICAL HISTORY Procedure Laterality Date PAST SURGICAL HISTORY OF 1970 hemorrhoidectomy PAST SURGICAL HISTORY OF hernia repair groin Current Outpatient Medications Medication Sig Dispense Refill ferrous sulfate 325 mg (65 mg iron) EC tablet Take 325 mg by mouth daily with breakfast. dilTIAZem CR (TIAZAC, TAZTIA XT) 180 mg 24 hr capsule Take 180 mg by mouth once daily. magnesium oxide (MAG-OX) 400 mg (241.3 mg magnesium) tablet Take 400 mg by mouth once daily. dapagliflozin (FARXIGA) 10 mg tablet Take by mouth daily with breakfast. pregabalin (LYRICA) 50 mg capsule Take 50 mg by mouth three times daily. atorvastatin (LIPITOR) 20 mg tablet Take 20 mg by mouth once daily. baclofen (LIORESAL) 10 mg tablet Take 10 mg by mouth three times daily. psyllium husk (METAMUCIL ORAL) Take by mouth. donepezil (ARICEPT) 10 mg tablet Take 10 mg by mouth daily at bedtime. CHOLECALCIFEROL, VITAMIN D3, (D3-2000 ORAL) Take by mouth once daily. potassium chloride (K-ANDI, KLOR-CON) 20 mEq packet Take 20 mEq by mouth three times daily. aspirin, enteric coated (ASPIRIN, ENTERIC COATED) 81 mg EC tablet Take 81 mg by mouth once daily. metoprolol tartrate, short acting, (LOPRESSOR) 50 mg tablet Take 25 mg by mouth twice daily. allopurinol (ZYLOPRIM) 300 mg tablet Take 300 mg by mouth once daily. losartan (COZAAR) 100 mg tablet Take 100 mg by mouth once daily. MULTIVITAMIN ORAL Take by mouth once daily. folic acid-Vit B6-Vit B12 (FOLTX) 2.5-25-2 mg tab Take 1 tablet by mouth once daily. nitroglycerin sublingual (NITROQUICK) 0.4 mg SL tablet Dissolve 0.4 mg under the tongue every 5 minutes as needed. fluticasone (FLONASE) 50 mcg/actuation nasal spray Use 2 Sprays in each nostril once daily. ALBUTEROL SULFATE (PROVENTIL INHALATION) Inhale as instructed. dorzolamide (TRUSOPT) 2 % ophthalmic solution three times daily. ondansetron orally disintegrating (ZOFRAN ODT) 4 mg disintegrating tablet Take 4 mg by mouth every 8 hours as needed. furosemide (LASIX) 40 mg tablet Take 40 mg by mouth once daily. citalopram (CELEXA) 40 mg tablet Take 40 mg by mouth once daily. (Patient not taking: Reported on 04/17/2022) amLODIPine (NORVASC) 5 mg tablet Take 5 mg by mouth once daily. (Patient not taking: Reported on 04/17/2022) omeprazole (PRILOSEC) 20 mg capsule Take 20 mg by mouth once daily. (Patient not taking: Reported on 04/17/2022) dicyclomine (BENTYL) 20 mg tablet Take 20 mg by mouth once daily. (Patient not taking: Reported on 04/17/2022) methocarbamol (ROBAXIN) 750 mg tablet Take 750 mg by mouth four times daily as needed. (Patient not taking: Reported on 04/17/2022) acetaminophen-codeine (TYLENOL-COD #3) 300-30 mg per tab Take 1 tablet by mouth every 4 hours as needed. (Patient not taking: Reported on 04/17/2022) carbidopa-levodopa CR (SINEMET CR 25-100) 25-100 mg per tablet Take 1 tablet by mouth three times daily. (Patient not taking: Reported on 04/17/2022) No current facility-administered medications for this visit. ALLERGIES Allergen Reactions Tizanidine Mental Status Change, Vomiting Oxycodone-Acetamino* Vomiting Other reaction(s): vomiting Review of Systems / PACC screen: Do you have difficulty climbing a full flight of stairs without feeling short of breath? Yes, uses albuterol inhaler as needed Do you require oxygen for your breathing or have your gone to an emergency department because of breathing problems? no Are you on dialysis or have you been told that your kidneys do not work well as they should? no Do have an implanted cardiac device (pacemaker, defibrillator etc.) that has not been checked in the last 6 months? no Have you had an organ transplant? no Have you been told that you had excessive bleeding during surgical procedures or do you take blood thinning medications other than aspirin? Yes, previous on blood thinner but not currently with hemorrhoids Have you ever had a heart attack, heart stents/surgery, valve problems, or other heart problems? Yes, HTN, Afib Have you had a stroke, seizures, or unexplained loss of consciousness? no Do you have a neurologic condition like Parkinson's disease or multiple sclerosis? Yes, Parkinson's possibly but unsure Have you or a blood relative had a life-threatening reaction to anesthesia? no Do you have cirrhosis of the liver or other liver disease? no Have you had a blood clot within the past year? No, previous DVT LLE Do you take insulin or other injections for diabetes? No, DM but about to start oral medication Do you have sleep apnea or have you been told you may have sleep apnea? Yes, doesn't wear cpap Do you have other implanted devices (deep brain stimulator, spinal cord stimulator, etc.)? no Physical Exam: BP 127/74 Pulse 70 Temp 36.9 C (98.4 F) Resp 16 Ht 177.8 cm (5' 10 ) Wt 86.2 kg (190 lb) SpO2 99% BMI 27.26 kg/m General Appearance: Well appearing, alert, in no acute distress, well-hydrated, well nourished. Lungs: Unlabored on room air Heart: RRR No ectopy Edema: no Abdomen: Normal abdominal exam, Abdomen soft, non-tender. Bowel sounds normal. No masses, organomegaly Anorectal: Perianal skin is intact. No erythema, induration or excoriation. No fissure, fistula. Large external hemorrhoids. 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 After digital exam with a lubricated finger, the scope was easily inserted. Severely enlarge right posterior, right anterior, and left lateral internal and external hemorrhoids were noted. Otherwise normal mucosa was noted. Anoscopy completed. Flexible sigmoidoscopy: Procedure: The patient was placed in left lateral position. After digital exam with a lubricated finger, the scope was easily inserted to 30 cm. Findings: The preparation was good. There was diverticulosis, 10mm rectal polyp and hemorrhoids. Biopsies were not taken. Assessment Medical Decision Making: Assessment & Diagnosis: Ben Guadalupe is a 86 year old male with h/o hemorrhoids for 30 years. A few months ago he had afib, started blood thinners and had a lot of bleeding, needing transfusion. Flexible scope showing rectal polyp. Data Reviewed: Tests & Documents Reviewed/ordered: None I have independently interpreted: I have discussed Ben Guadalupe's treatment plan and/or results with him and son. Treatment plan: Colonoscopy with polypectomy, EUA, hemorrhoidectomy Consent obtained Tristin Wilcox MD, PhD Colorectal Surgery Risk of morbidity, mortality and/or complications of treatment plan: high documented in this encounter [facility] 04-11-2022 Note CONSULTATION PROCEDURE DATE: 04/11/2022 PREOPERATIVE DIAGNOSIS: Bilateral lumbar spasms. POSTOPERATIVE DIAGNOSIS: Bilateral lumbar spasms. PROCEDURE: Bilateral lumbar trigger point injections in two locations. Subsequent to obtaining informed consent, the patient was placed in the upright standing forward flexion position. Alcohol prep was used to sterilize the site. A 25 gauge needle with 0.125% Marcaine and 40 mg of Kenalog was divided into two locations. Needle was placed to rest inside the trigger zones. Negative heme. Medication was injected in each location in a slow, steady, fan-like pattern. Patient tolerated the procedure well, will be followed up in the office. [facility] 04-11-2022 Note CONSULTATION CONSULTATION DATE: 04/11/2022 HISTORY OF PRESENT ILLNESS: This is a very pleasant, 86-year-old gentleman returning to the clinic for a two month follow up. At his last office visit on 02/14/2022, he received bilateral lumbar trigger point injections which afforded him 75% relief for two weeks. Today, he rates his pain as 9/10, which is severe for him. He just states he hurts from his neck to his lower back. 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 His lower back feels tight, achy and spasmodic. He is having increasing bilateral lower extremity pain. Activities that aggravate his pain are standing, walking, lying, sitting and any physical activity. The use of medication, in addition to heat, decreases his pain. Medications include Lyrica 75 mg b.i.d., baclofen 10 mg q.h.s., Minden 5/325 q.i. d. and a multivitamin regimen. Patient's REVIEW OF SYSTEMS / PAST MEDICAL HISTORY / ALLERGIES and IMAGES have been reviewed and they are noted on the chart. PHYSICAL EXAM: VITAL SIGNS: Blood pressure 118/62, heart rate is 89. Temperature is 98. He is 5'10 , weighs 91 kg. GENERAL IMPRESSION: Pleasant, appropriate, in distress today. FOCUSED EXAM - BACK: Range of motion is highly guarded and limited in lateral rotation and flexion/extension. Paravertebral muscles are non-spasmodic with trigger points identified in bilateral lumbar area. Compression reproduces patient's pain symptomatology. Juan's point is non-tender. Negative FABERs and compression test. NECK: Range of motion guarded in lateral rotation and flexion/extension. Trapezius muscles are spasmodic bilaterally. MUSCULOSKELETAL: Diffuse muscle atrophy noted to upper and lower extremities. Patient does use a motorized scooter for ambulation. 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 Gross motor is intact upper and lower extremities. Decreased fine motor to his upper extremities bilaterally. DIAGNOSIS: Cervical radiculopathy, lumbar radiculitis, lumbar degenerative disc disease, lumbar spinal canal stenosis. PLAN: Patient will receive bilateral lumbar trigger point injections in the office today, which he does consent to. Moving forward, we will do a cervical epidural steroid injection. His Lyrica will be increased to 100 mg b.i.d., and a refill to Baclofen 10 mg q.h.s. will be sent. 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 Patient agrees with the plan of care, will be followed up post procedure. [facility] 03-18-2022 Note Subjective Ben Guadalupe is a 86 y.o. male. Chief Complaint: Atrial Fibrillation, Coronary Artery Disease, Hypertension, and left ventricular hypertrophy Nursing note: Patient here for follow up [facility]. He was seen as inpatient consult by Dr. Danielle on 02/04/2022 for afib. He is not anticoagulated due to anemia and bleeding. Patient wore 30 day event monitor s/p discharge. Denies chest pain, SOB, and palpitations. His LE edema is no more than usual he states. Patient Active Problem List Diagnosis Chest pain Coronary arteriosclerosis Hypertensive disorder Left ventricular hypertrophy Mixed hyperlipidemia PAF (paroxysmal atrial fibrillation) ([facility]) Blood loss anemia Bleeding hemorrhoid Family History Problem Relation Name Age of Onset Heart failure Mother Prostate cancer Father Coronary artery disease Brother Prostate cancer Brother Social History Tobacco Use Smoking status: Never Smokeless tobacco: Never Substance Use Topics Alcohol use: Yes Comment: occasional Drug use: Never HPI Ben is an 86-year-old man with history of mild coronary artery disease by cardiac catheterization in 2013, hypertension. He has history of DVT in the left leg many years ago. He has leg edema is related to venous insufficiency and lack of ambulation. This is chronic. His prior echocardiograms showed mild elevation of right sided pressure that do not explain the leg edema. He has tried compression socks in the past but couldn't tolerate them. I had recommended leg elevation. In early February 2022 he was admitted to the [facility] with palpitations and chest pain. He was found to have atrial fibrillation with rapid ventricular response that later reverted to sinus rhythm. He was also found to have significant anemia and large amount of rectal bleeding that appeared to be related to hemorrhoids, he received blood transfusion. He also had DAVID that resolved. At that time I evaluated him in the hospital and I recommended against any anticoagulation therapy due to his anemia and bleeding. I also recommended an event monitor to rule out recurrence of atrial fibrillation. Today he reports that he has been doing reasonably well. He has had no recurrence of palpitations or chest pain since that episode in early February. He otherwise has chronic lower extremity edema. He uses a scooter to ambulate. No significant shortness of breath. He is currently on aspirin 81 mg daily, atorvastatin 20 mg daily, amlodipine 5 mg daily, Farxiga 10 mg daily, diltiazem 180 mg daily losartan 25 mg daily, metoprolol tartrate 25 mg twice daily. Prior testing: ABIs 10/11/2021: Normal arterial evaluation of the lower extremities without hemodynamic impairment [right 1.28, left 1.28]. ECG 10/11/2021: Sinus rhythm with right bundle branch block. Blood testing 09/19/2021: Hemoglobin 11.7, platelets 174, potassium 5.1, BUN 40, creatinine 1.88, EGFR 34. ECG 12/27/2016: SR, RBBB Echocardiogram 09/26/2016: normal LV function, moderate LVH, mild diastolic dysfunction, mild MR, mild pulmonary hypertension. Cardiac cath 11/12/2012: mild disease in the LAD (20%) with sluggish flow. EF 65% by LV gram. VQ scan in 2012 was low probability for PE. Stress test 01/2017: normal. Review of Systems Constitutional: Negative for chills. HENT: Positive for hearing loss. Cardiovascular: Positive for chest pain, leg swelling and palpitations. Negative for dyspnea on exertion. Respiratory: Negative for hemoptysis and shortness of breath. ASHLIE (untreated) Skin: Easy bruising Musculoskeletal: Positive for back pain, joint pain and muscle weakness. Neurological: Positive for numbness and weakness. Objective Visit Vitals BP 128/81 (BP Location: Right arm, Patient Position: Sitting) Pulse 81 Ht 1.778 m (5' 10 ) Wt 88.9 kg (196 lb) SpO2 97% BMI 28.12 kg/m??? Smoking Status Never BSA 2.1 m??? Constitutional: Appearance: Healthy appearance. Not in distress. Neck: Vascular: No JVR. JVD normal. Pulmonary: Effort: Pulmonary effort is normal. Breath sounds: Normal breath sounds. No wheezing. No rhonchi. No rales. Chest: Chest wall: Not tender to palpatation. Cardiovascular: PMI at left midclavicular line. Normal rate. Regular rhythm. Normal S1. Normal S2. Murmurs: There is no murmur. Pulses: Radial: 2+ bilaterally. Edema: Pretibial: bilateral 2+ edema of the pretibial area. Ankle: bilateral 2+ edema of the ankle. Abdominal: General: Bowel sounds are normal. Palpations: Abdomen is soft. Tenderness: There is no abdominal tenderness. Musculoskeletal: Normal range of motion. General: No tenderness. Skin: General: Skin is warm and dry. Neurological: General: No focal deficit present. Mental Status: Alert and oriented to person, place and time. Allergies Allergen Reactions Oxycodone-Acetaminophen Other reaction(s): vomiting Tizanidine Hallucinations Tramadol Hallucination (more content not included)... [facility] 02-14-2022 Note CONSULTATION PROCEDURE DATE: 02/14/2022 PREOPERATIVE DIAGNOSIS: Bilateral paravertebral spasms. POSTOPERATIVE DIAGNOSIS: Bilateral paravertebral spasms. PROCEDURE: Bilateral paravertebral trigger point injections. Subsequent to obtaining informed consent, the patient was placed in the upright standing forward flexion position. Alcohol prep was used to sterilize the site. A 25 gauge needle with 0.125% Marcaine and 40 mg of Kenalog was used in two separate locations. The needle was placed to rest inside the trigger zone. Negative heme. Medication was injected in a fan-like pattern and patient tolerated procedure well. He will be followed up in the clinic. [facility] 02-14-2022 Note CONSULTATION CONSULTATION DATE: 02/14/2022 HISTORY OF PRESENT ILLNESS: This is a very pleasant, 86-year-old gentleman, returning to the clinic for chronic neck, back and arm pain. During his last visit on 01/10/2022, the patient was placed on Lyrica 50 mg b.i.d. for polyneuropathy to upper and lower extremities. During that appointment, his pain was 9/10 and he was in obvious distress. His Minden was increased to 5/325 q.i.d. at that time, which has been helpful. The patient states since the introduction of the Lyrica to his regimen that his Minden is back down to t.i.d. The intent with starting the Lyrica was to slowly increase to efficacy. We have gained some improvement, but the pain is still present. In November, he received bilateral lumbar trigger point injections which gave him 80% relief for approximately two weeks. He is inquiring about that again today, as he is feeling tightness in his lumbar region. He was recently hospitalized for four days, as he was having chest pain. He was found to be in atrial fibrillation and was started on an anticoagulant. The patient had to receive two units of blood after the anticoagulant caused excessive bleeding from his hemorrhoids. Patient is on a multivitamin regimen and takes baclofen 10 mg q.h.s. at night as well. Activities such as standing, walking, housework and ADLs aggravate his pain. Medications and heat decrease his pain. Patient states he used to be more diligent with his heat application. Patient's REVIEW OF SYSTEMS / PAST MEDICAL HISTORY / ALLERGIES and IMAGES have been reviewed and they are noted on the chart. PHYSICAL EXAM: VITAL SIGNS: Blood pressure is 101/64. Heart rate is 79. Temperature is 97.8. He is 5'10 and weighs 189 pounds. MUSCULOSKELETAL: Diffuse muscle atrophy noted to bilateral lower extremities. Motor is 3/5 bilaterally. Patient does use motorized scooter. NEUROLOGICALLY: Peripheral and diffuse neuropathy to upper and lower extremities. Occasional bladder incontinence along with frequency. Blunted bilateral patellar and Achilles reflexes, as well as brachioradialis and triceps reflexes. BACK: Range of motion is decreased in lateral rotation and flexion/extension. Paravertebral muscles are taut but non-spasmodic. Trigger points identified bilateral lower lumbar with compression to those areas reproducing the patient's pain symptomatology today. Juan's point mildly tender. Negative FABERs. IMPRESSION: Lumbar radiculitis, polyneuropathy, lumbar paravertebral spasm, chronic lower back pain. PLAN: Patient will receive bilateral lumbar trigger point injections in two locations today, which he does consent to. We will increase his Lyrica as well to 75 mg b.i.d. to help capture more neuropathic pain. Education was given on the safety of this medication in addition to the Minden. Patient agrees with the plan of care and will be seen in eight weeks time unless otherwise indicated. [facility] 01-10-2022 Note CONSULTATION CONSULTATION DATE: 01/10/2022 HISTORY OF PRESENT ILLNESS: This is a pleasant, 86-year-old gentleman who is returning to the Pain Clinic at his request for chronic lower back pain and an increased pain level of 9/10. The patient states he has been feeling exceptionally painful this past week. He describes that the pain feels that bad that it makes him nauseous. He has difficulty lifting his leg in and out of the scooter. The pain is making him nervous and worried at home. Medication includes at this time Minden 5/325 t.i.d., baclofen 10 mg daily and diclofenac 50 mg b.i.d. The patient is ambulatory within the home, but uses his motorized scooter outside of the home. On 11/29/2021, he received bilateral lumbar trigger point injections which were 70% helpful for a two week time period. Patient's REVIEW OF SYSTEMS / PAST MEDICAL HISTORY / ALLERGIES and IMAGES have been reviewed and they are noted on the chart. PHYSICAL EXAM: VITAL SIGNS: Blood pressure 135/80, heart rate is 72. Temperature is 97.8. He is 5'10 and weighs 88 kg. GENERAL APPEARANCE: Pleasant, appropriate, in a moderate amount of distress, sitting in his wheeled scooter. FOCUSED EXAM - BACK: Significant bilateral paravertebral spasms are noted. Direct compression reproduces patient's pain symptomatology. Range of motion is guarded in lateral rotation and flexion. MUSCULOSKELETAL: Motor is at 3/4 bilaterally. Patient is able to get out of scooter and stand up. NEUROLOGICAL: Diffuse radicular pain along bilateral S1 to the posterior elements of his lower extremities to the level below the knee. Patchy hypoesthesia noted along bilateral upper arms that includes all fingers bilaterally. +2 brachioradialis reflex. IMPRESSION: Lumbar radiculitis, lumbar degenerative disc disease, cervical degenerative disc and polyneuropathy. PLAN: After discussing with the patient and noting his distress, his Minden 5/325 will be increased to four times a day. He will be started on Lyrica 50 mg b.i.d. 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 He will receive bilateral lumbar trigger point injections in the office today as well. He will return to the clinic in six weeks' time to re-evaluate his pain pattern and efficacy of the Lyrica. Patient does agree. [facility] 01-10-2022 Note CONSULTATION PROCEDURE DATE: 01/30/2022 PREOPERATIVE DIAGNOSIS: Bilateral lumbar paravertebral spasms. POSTOPERATIVE DIAGNOSIS: Bilateral lumbar paravertebral spasms. PROCEDURE: Bilateral lumbar trigger point injections. Subsequent to obtaining informed consent, the patient was placed in the forward flexion upright standing position. Alcohol prep was used to sterilize the site. A 25 gauge needle with 0.125% Marcaine and 40 mg of Kenalog was divided into two doses in two locations. Needle was placed to rest inside the trigger zone. Negative heme. Medication was directed in a fan-like pattern. Patient tolerated the procedure well with no overt complications. [facility] 11-29-2021 Note CONSULTATION PROCEDURE DATE: 11/29/2021 PREOPERATIVE DIAGNOSIS: Bilateral paravertebral spasms. POSTOPERATIVE DIAGNOSIS: Bilateral paravertebral spasms. PROCEDURE: Bilateral lumbar trigger point injections. Subsequent to obtaining informed consent, the patient was placed in the upright standing forward flexion position. Alcohol prep was used to sterilize the site. 0.125% Marcaine and 40 mg of Kenalog was divided into two doses. Needle was placed to rest inside the trigger point. Negative heme. Medication was injected in a fan-like pattern. Patient tolerated the procedure well with no overt complications. He will be followed up in the clinic. [facility] Signed and Approved by: CALVIN MOREJON . 12/06/2021 16:01:00 [facility] 11-29-2021 Note CONSULTATION CONSULTATION DATE: 11/29/2021 HISTORY OF PRESENT ILLNESS: This is a pleasant, 85-year-old gentleman, returning to the clinic status post bilateral lumbar RFA of L2, L3 and L4, L5 with his last ablation being 10/30/2021. The patient received 90% relief for three days, but starting the fourth day, he has been having increased pain diffusely across his lower lumbar area. It is aggravated by transport rn and evening hours, standing, walking and physical activity. He does use heat daily which is helpful, in addition to Vicks VapoRub. Medications include baclofen 10 mg q.h.s., Minden 5/325 t.i.d. and a multivitamin regimen. The patient does use an electric scooter to help get around. He does walk within his house with the help of a cane. He denies any new radicular pain or pain pattern. Patient's REVIEW OF SYSTEMS / PAST MEDICAL HISTORY / ALLERGIES and IMAGES have been reviewed and they are noted on the chart. PHYSICAL EXAM: VITALS: Blood pressure 136/77, heart rate is 96. Temperature is 97.5. He is 5'10 and weighs 90 kg. GENERAL APPEARANCE: Pleasant, appropriate, uncomfortable sitting in his scooter. FOCUSED EXAM - BACK: Range of motion is guarded in lateral rotation and flexion/extension. Bilateral paravertebral muscles are spasmodic with trigger points identified. No reproduction of spinal axial pain to facet compression. Juan's point is non-tender bilaterally. MUSCULOSKELETAL: Motor is 3/5 bilaterally. Does use electric scooter and a cane for assistance. NEUROLOGICALLY: Diffuse neuropathy to bilateral hands. Negative polyneuropathy to lower extremities. IMPRESSION: Paravertebral spasms, lumbar spondylosis, lumbar degenerative disc. PLAN: A refill for his [place] 5/325 t.i.d. will be sent to the pharmacy. Patient will receive bilateral lumbar trigger point injections, which he agrees to receive here in the clinic. We will maintain his medications at the current regimen. He is to increase the amount of frequency of heat application and menthol heat rub. We will see the patient in six weeks' time unless otherwise indicated. [facility] Signed and Approved by: CALVIN MOREJON . 12/06/2021 16:01:00 [facility] 11-21-2021 Note OPERATIVE NOTE OPERATION DATE: 11/21/2021 PREOPERATIVE DIAGNOSIS: Recurrent incarcerated right inguinal hernia. POSTOPERATIVE DIAGNOSIS: Recurrent incarcerated right inguinal hernia. PROCEDURE: Right inguinal herniorrhaphy with Bard mesh patch. SURGEON: Yenni Stanley M.D. ANESTHESIA: General endotracheal. ESTIMATED BLOOD LOSS: Less than 20 mL. 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 Dr. Vergara felt that some of patient's urinary infections and problems were due to this incarcerated bladder diverticulum. Indications, risks, benefits, alternatives of proceeding with hernia repair explained extensively to the patient, patient's family, including the risks of bleeding, infection, scarring, pain, recurrence, nerve injury, testicular injury, blood clot, pulmonary embolus, heart attack, anesthetic complications, need for further surgery or mesh removal. All of his questions were answered. Informed consent was obtained. PROCEDURE: Patient brought to the operating room, placed in the supine position. General anesthesia was induced. He was prepped and draped in the usual sterile fashion. A right groin incision was made in the area of the skin crease and carried down through subcutaneous tissue using sharp dissection as well as electrocautery. Moon's fascia was divided. There was noted to be extensive scarring. The external oblique was opened, was extensively scarred to the cord structures. The cord structures were unable to be completely mobilized, but the large recurrent direct hernia was freed up. The defect was less than 2 cm, making it difficult to reduce. The sac was freed up. The floor where it had previously been repaired was opened slightly in order to allow reduction of the preperitoneal fat and bladder diverticulum. Once this was done, a large Bard patch was then inserted and secured circumferentially using interrupted Vicryl sutures. The wound was irrigated with antibiotic saline. The hernia sac was then closed over the defect as well. Because of the extensive scarring of the cord, we did not place a patch, as we felt it would likely cause more damage to the cord than it would help. The wound was irrigated. There was good hemostasis. The external oblique was closed with a running 3-0 Vicryl suture. The subcutaneous tissues were infiltrated with Exparel solution. Moon's fascia was re-approximated using interrupted 3-0 Monocryl suture. The skin was then closed with a running 4-0 subcuticular Monocryl suture and skin glue. Sterile pressure dressing was applied. Sponge and needle counts were correct x2 per nursing personnel. Patient tolerated procedure, was extubated and sent to recovery room in good condition. CC: Shaikh eLxi M.D. [facility] Signed and Approved by: DR YENNI STANLEY . 11/28/2021 10:45:00 [facility] 10-09-2021 Hospital Discharge instructions Patient Education 10/09/2021 15:03:12 Colon Polyps Colon Polyps Polyps are tissue growths inside the body. Polyps can grow in many places, including the large intestine (colon). A polyp may be a round bump or a mushroom-shaped growth. You could have one polyp or several. Most colon polyps are noncancerous (benign). However, some colon polyps can become cancerous over time. Finding and removing the polyps early can help prevent this. What are the causes? The exact cause of colon polyps is not known. What increases the risk? You are more likely to develop this condition if you: Have a family history of colon cancer or colon polyps. Are older than 50 or older than 45 if you are . Have inflammatory bowel disease, such as ulcerative colitis or Crohn's disease. Have certain hereditary conditions, such as: ?Familial adenomatous polyposis. ?John syndrome. ?Turcot syndrome. ?Peutz Jeghers syndrome. Are overweight. Smoke cigarettes. Do not get enough exercise. Drink too much alcohol. Eat a diet that is high in fat and red meat and low in fiber. Had childhood cancer that was treated with abdominal radiation. What are the signs or symptoms? Most polyps do not cause symptoms. If you have symptoms, they may include: Blood coming from your rectum when having a bowel movement. Blood in your stool. The stool may look dark red or black. Abdominal pain. A change in bowel habits, such as constipation or diarrhea. How is this diagnosed? This condition is diagnosed with a colonoscopy. This is a procedure in which a lighted, flexible scope is inserted into the anus and then passed into the colon to examine the area. Polyps are sometimes found when a colonoscopy is done as part of routine cancer screening tests. How is this treated? Treatment for this condition involves removing any polyps that are found. Most polyps can be removed during a colonoscopy. Those polyps will then be tested for cancer. Additional treatment may be needed depending on the results of testing. Follow these instructions at home: Lifestyle Maintain a healthy weight, or lose weight if recommended by your health care provider. Exercise every day or as told by your health care provider. Do not use any products that contain nicotine or tobacco, such as cigarettes and e-cigarettes. If you need help quitting, ask your health care provider. If you drink alcohol, limit how much you have: ?0 1 drink a day for women. ? 0 2 drinks a day for men. Be aware of how much alcohol is in your drink. In the [place] one drink equals one 12 oz bottle of beer (355 mL), one 5 oz glass of wine (148 mL), or one 1 oz shot of hard liquor (44 mL). Eating and drinking Eat foods that are high in fiber, such as fruits, vegetables, and whole grains. Eat foods that are high in calcium and vitamin D, such as milk, cheese, yogurt, eggs, liver, fish, and broccoli. Limit foods that are high in fat, such as fried foods and desserts. Limit the amount of red meat and processed meat you eat, such as hot dogs, sausage, flowers, and lunch meats. General instructions Keep all follow-up visits as told by your health care provider. This is important. ?This includes having regularly scheduled colonoscopies. ?Talk to your health care provider about when you need a colonoscopy. Contact a health care provider if: You have new or worsening bleeding during a bowel movement. You have new or increased blood in your stool. You have a change in bowel habits. You lose weight for no known reason. Summary Polyps are tissue growths inside the body. Polyps can grow in many places, including the colon. Most colon polyps are noncancerous (benign), but some can become cancerous over time. This condition is diagnosed with a colonoscopy. Treatment for this condition involves removing any polyps that are found. Most polyps can be removed during a colonoscopy. This information is not intended to replace advice given to you by your health care provider. Make sure you discuss any questions you have with your health care provider. Document Released: 03/19/2005 Document Revised: 10/08/2018 Document Reviewed: 10/08/2018 [employer] Patient Education 2020 Last 2 Left. Follow Up Care 10/01/2021 07:48:54 With:Iraida James CNP Address: When:3 months only if needed [facility] Evaluation + Plan note Future Appointments Appointment Date:10/16/2021 02:20:00 PM Scheduled Provider: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 MD Location:[facility] Appointment Type:[address] Digestive Health Evaluation + Plan note Future Appointments Appointment Date:04/30/2022 01:40:00 PM Scheduled Provider: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 MD Location:[facility] Appointment Type:[facility] Appointment Date:10/21/2022 03:15:00 PM Scheduled Provider:Mehki VERGARA MD Location:[facility] Appointment Type:URO Office Visit Diagnostic Tests PendingPSA Total 04/22/22 [facility] Evaluation + Plan note Future Appointments Appointment Date:10/21/2022 03:15:00 PM Scheduled Provider:Mekhi VERGARA MD Location:[facility] Appointment Type:URO Office Visit Diagnostic Tests PendingUroVysion Fish and Urine Cyto ([facility]) 08/06/22 [facility] Evaluation + Plan note Future Appointments Appointment Date:06/23/2023 03:00:00 PM Scheduled Provider:Mekhi VERAGRA MD Location:[facility] Appointment Type:URO Office Visit Diagnostic Tests PendingPSA Total 12/23/[address] [facility] Evaluation note Diagnosis Fourth degree hemorrhoids- Primary Unspecified hemorrhoids with other complication [facility] Diagnosis Pre-op evaluation- Primary Preoperative examination, unspecified Type 2 diabetes mellitus without complication, without long-term current use of insulin (HCC) Radiculopathy, cervical region Brachial neuritis or radiculitis nos Dementia in other diseases classified elsewhere, unspecified severity, without behavioral disturbance, psychotic disturbance, mood disturbance, and anxiety (HCC) Intracranial hemorrhage (HCC) Unspecified intracranial hemorrhage Essential (primary) hypertension Unspecified essential hypertension Sleep apnea, unspecified type Chronic obstructive pulmonary disease, unspecified COPD type (HCC) Arteriosclerosis of coronary artery Coronary atherosclerosis of unspecified type of vessel, [place] or graft PAF (paroxysmal atrial fibrillation) (HCC) Atrial fibrillation History of DVT (deep vein thrombosis) Personal history of venous thrombosis and embolism Gastroesophageal reflux disease with esophagitis, unspecified whether hemorrhage Chronic kidney disease, stage 4 (severe) ([facility]) Calculus of kidney Hypothyroidism unspecified Iron deficiency anemia due to chronic blood loss Iron deficiency anemia secondary to blood loss (chronic) History of prostate cancer Personal history of malignant neoplasm of prostate History of primary malignant neoplasm of urinary bladder Personal history of malignant neoplasm of bladder Gout, unspecified cause, unspecified chronicity, unspecified site Fourth degree hemorrhoids Unspecified hemorrhoids with other complication documented in this encounter [facility] course Narrative No data available for this section [facility] Discharge instructions No data available for this section General Surgery [place] note No data available for this section [facility] Summary Purpose Family History No Family History Records FoundNo Family History Records FoundNo Family History Records FoundNo Family History Records FoundNo Family History Records FoundNo Family History Records FoundNo Family History Records Found Advance Directives No Advanced Directives Records FoundNo Advanced Directives Records FoundNo Advanced Directives Records FoundNo Advanced Directives Records FoundNo Advanced Directives Records FoundNo Advanced Directives Records FoundNo Advanced Directives Records Found Additional Source Comments (unrecognized sect ion and content) No Status Records FoundNo Status Records FoundNo Status Records FoundNo Status Records FoundNo Status Records FoundNo Status Records FoundNo Status Records Found INFORMATION SOURCE (unrecogn ized section and content) DATE CREATED AUTHOR 12/31/2017 [facility] DATE CREATED AUTHOR AUTHOR'S ORGANIZ ATION 05/31/2022 [facility] DATE CREATED AUTHOR AUTHOR'S ORGANIZ ATION 11/02/2022 [facility] DATE CREATED AUTHOR AUTHOR'S ORGANIZ ATION 03/08/2023 [facility] DATE CREATED AUTHOR AUTHOR'S ORGANIZ ATION 06/20/2023 [facility] DATE CREATED AUTHOR AUTHOR'S ORGANIZ ATION 07/05/2023 [facility] DATE CREATED AUTHOR AUTHOR'S ORGANIZ ATION 07/05/2023 [facility] EPIC Source Comments (unrecognize d section and content) In the event this informatio n is protected by the Federal Confidentiality of Alcohol and Drug Abuse Patient Records regulations: The Federal rules restrict any use of the information to criminally investigate or prosecute any alcohol or drug abuse patient.[facility] the event this information is protected by the Federal Confidentiality of Alcohol and Drug Abuse Patient Records regulations: The Federal rules restrict any use of the information to criminally investigate or prosecute any alcohol or drug abuse patient.[facility] Center[facility] the event this information is protected by the Federal Confidentiality of Alcohol and Drug Abuse Patient Records regulations: The Federal rules restrict any use of the information to criminally investigate or prosecute any alcohol or drug abuse patient.[facility] Center[facility] the event this information is protected by the Federal Confidentiality of Alcohol and Drug Abuse Patient Records regulations: The Federal rules restrict any use of the information to criminally investigate or prosecute any alcohol or drug abuse patient.[facility] Center[facility] the event this information is protected by the Federal Confidentiality of Alcohol and Drug Abuse Patient Records regulations: The Federal rules restrict any use of the information to criminally investigate or prosecute any alcohol or drug abuse patient.[facility] Center[facility] the event this information is protected by the Federal Confidentiality of Alcohol and Drug Abuse Patient Records regulations: The Federal rules restrict any use of the information to criminally investigate or prosecute any alcohol or drug abuse patient.[facility] Reason for Visit (unrecogniz ed section and content) Reason Comments New Reason Comments 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 - Other Reason Comments Appointment Reason Comments Pre-Op Visit Reason Comments Patient Education Care Teams (unrecognized sec tion and content) Oil Expeller Relationship Specialty Start Date End Date Franky Veronica (Fax) PCP - General Internal Medicine 06/16/12 Oil Expeller Relationship Specialty Start Date End Date Franky Veronica (Fax) PCP - General Internal Medicine 06/16/12 Oil Expeller Relationship Specialty Start Date End Date Franky Veronica (Fax) PCP - General Internal Medicine 06/16/12 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 This clinical summary was aggregated from multiple sources. Caution should be exercised in using it in the provision of clinical care. This summary normalizes information from multiple sources, and as a consequence, information in this document may materially change the coding, format and clinical context of patient data. In addition, data may be omitted in some cases. CLINICAL DECISIONS SHOULD BE BASED ON THE PRIMARY CLINICAL RECORDS. [facility] [employer]. provides no warranty or guarantee of the accuracy or completeness of information in this document.
[2023-07-18 19:06] VITALS: BP 150/77; PULSE 68; RESP 20; TEMP 36.4; O2SAT 97; BMI 24.4
--- NOTE | 2023-07-18 19:23 | CT_ITS ---
[facility] [place] [id number] Patient Name: GUILLERMINA GUADALUPE MRN: [id number] date: 1935 Sex: M Assigned Patient Location: ER Current Patient Location: ER Accession/Order Number: [id number] Exam Date: 07/18/2023 09:44 Report Date: 07/18/2023 20:36 At the request of: MICHELE HOYT Procedure: CT lumbar spine wo con EXAM: CT lumbar spine wo con HISTORY: severe pain COMPARISON: None. TECHNIQUE: Unenhanced axial CT of the lumbar spine was performed with coronal and sagittal reformats provided. FINDINGS: Vertebral body heights and alignment are preserved. No acute fracture or aggressive osseous abnormality. Calcific atherosclerosis of the abdominal aorta is normal caliber. Partially imaged right renal cyst. Likely status post appendectomy. Paraspinal soft tissues are within normal limits. Multilevel degenerative disc disease which is most severe at L2-3 where disc osteophyte complex results in moderate spinal canal narrowing and moderate bilateral foraminal narrowing, L3-4 or calcified disc osteophyte complex results in severe spinal canal narrowing with moderate bilateral foraminal narrowing and L5-S1 where calcified disc results in severe spinal canal narrowing and moderate bilateral foraminal narrowing. CT/CT lumbar spine wo con IMPRESSION: No osseous abnormality of the lumbar spine. Multilevel moderate to severe degenerative disc disease as above. Electronically authenticated by: MAX LEE Date: 07/18/2023 20:36
--- NOTE | 2023-07-18 19:28 | ED_ITS ---
HPI - General Adult General Chief complaint: Back Pain/Injury Stated complaint: Back Pain Time Seen by Provider: 07/18/23 19:05 Source: family Mode of arrival: Wheelchair Limitations: no limitations History of Present Illness HPI narrative: patient is a 87-year-old male presents to the Emergency Room with concerns of severe lower back pain. patient using a walker earlier this year, motorized scooter, limited ambulation over the past several months. Had outpatient MRI in May and is scheduled to see pain management this coming Friday. Patient taking [place] for pain, states she did not feel he could tolerate the pain anymore. He denies any numbness or tingling in the bowel or bladder region. States pain starts paravertebral lumbar and radiates into both legs diffusely, mostly posterior, denies pain radiating down below the knees. Symptoms worse with standing or bending. Patient does have some pain to his right hip. Prior history of left knee replacement. Patient notes bilateral legs chronically sw ollen.patient has history of spinal stenosis but has never had any injections. Patient denies any dysuria or change in bowel habits. Patient denies any loss of incontinence stool or urine. Son brought patient to Emergency Room this evening requesting admission as pain is worsening and difficulty getting around at home example getting up from toilet. Location: Reports back Severity: severe Quality: Reports burning, aching and sharp Pain Consistency: Reports constant Relieving factors: Reports none Associated symptoms: Reports denies other symptoms Treatments prior to arrival: Reports none Related Data Home Medications Medication Instructions Recorded Confirmed albuterol sulfate 90 mcg/actuation 1 inh inhalation Q4H PRN shortness 12/27/22 07/18/23 aerosol inhaler (ProAir HFA) of breath or wheezing allopurinol 300 mg tablet 300 mg PO .QD 12/27/22 07/18/23 cholecalciferol (vitamin D3) 25 50 mcg PO DAILY 12/27/22 07/18/23 mcg (1,000 unit) capsule (Vitamin D3) levothyroxine 50 mcg tablet 50 mcg PO .QD 12/27/22 07/18/23 nitroglycerin 0.4 mg sublingual 0.4 mg sublingual Q5M PRN chest 12/27/22 07/18/23 tablet (Nitrostat) pain potassium chloride 20 mEq 20 meq PO DAILY 12/27/22 07/18/23 tablet,extended release (K-Tab) aspirin 81 mg capsule 81 mg PO DAILY 01/09/23 07/18/23 diltiazem HCl 180 mg 180 mg PO DAILY 01/09/23 07/18/23 capsule,extended release 24 hr donepezil 10 mg tablet (Aricept) 10 mg PO DAILY 01/09/23 07/18/23 dorzolamide-timolol (PF) 2 %-0.5 % 1 drp ophthalmic (eye) BID 01/09/23 07/18/23 eye drops in a dropperette famotidine 20 mg tablet 20 mg PO DAILY 01/09/23 07/18/23 ferrous sulfate 325 mg (65 mg 325 mg PO .every other day 01/09/23 07/18/23 iron) tablet fluticasone propionate 50 2 spray intranasal DAILY PRN nasal 01/09/23 07/18/23 mcg/actuation nasal congestion spray,suspension (Flonase Allergy Relief) furosemide 20 mg tablet 40 mg PO QAM 01/09/23 07/18/23 losartan 100 mg tablet 50 mg PO DAILY 01/09/23 07/18/23 magnesium oxide,aspartate,citr 400 mg PO BEDTIME 01/09/23 07/18/23 metoprolol tartrate 25 mg tablet 25 mg PO BID 01/09/23 07/18/23 [id number] 300 mcg-K 60 1 tab PO DAILY 01/09/23 07/18/23 mcg-lycop 600 mcg-lutein 300 mcg tablet (Centrum Silver Men) psyllium husk 0.4 gram capsule 0.4 g PO DAILY 01/09/23 07/18/23 (Metamucil) tamsulosin 0.4 mg capsule (Flomax) 0.4 mg PO DAILY 01/09/23 07/18/23 atorvastatin 20 mg tablet 40 mg PO DAILY 01/10/23 07/18/23 baclofen 10 mg tablet 10 mg PO .qhs muscle spasm 01/10/23 07/18/23 pregabalin 150 mg capsule (Lyrica) 75 mg PO BEDTIME 06/10/23 07/18/23 pregabalin 75 mg capsule (Lyrica) 75 mg PO DAILY 06/10/23 07/18/23 Lactobacillus rhamnosus GG 10 1 cap PO DAILY 07/18/23 07/18/23 billion cell capsule (Culturelle) amlodipine 5 mg tablet 5 mg PO DAILY 07/18/23 07/18/23 dapagliflozin propanediol 10 mg 10 mg PO DAILY 07/18/23 07/18/23 tablet (Farxiga) escitalopram oxalate 10 mg tablet 10 mg PO .am 07/18/23 07/18/23 glipizide 5 mg tablet 5 mg PO BID 07/18/23 07/18/23 multivitamin 1 tab PO BID 07/18/23 07/18/23 Previous Rx's Medication Instructions Recorded ondansetron 4 mg disintegrating 4 mg PO Q6H PRN nausea and 02/05/23 tablet vomiting #12 tabs hydrocodone 5 mg-acetaminophen 325 1 tab PO QID PRN pain #120 tabs 06/26/23 mg tablet Allergies Allergy/AdvReac Type Severity Reaction Status Date / Time tizanidine [From Zanaflex] Allergy Unknown Verified 07/18/23 19:12 acetaminophen [From Percocet] AdvReac Mild Vomiting Verified 07/18/23 19:12 cyclobenzaprine AdvReac Mild Hallucinati Verified 07/18/23 19:12 [From Flexeril] ng oxycodone [From Percocet] AdvReac Mild Vomiting Verified 07/18/23 19:12 tramadol AdvReac Mild Vomiting Verified 07/18/23 19:12 Review of Systems ROS Constitutional Denies: fever or chills Eyes Denies: change in vision or blurry vision Ears, nose, mouth, and throat Denies: throat pain or neck pain Cardiovascular Denies: chest pain or palpitations Respiratory Denies: shortness of breath or cough Gastrointestinal Denies: abdominal pain or nausea Genitourinary Denies: painful urination, urinary frequency or urinary urgency Musculoskeletal Reports: back pain and joint pain (right hip); Denies: neck pain or extremity pain Integumentary/Breast Denies: rash or itching Neurological Denies: headache Psychiatric Denies: anxiety Hematologic/Lymphatic Denies: easy bruising PFSH PFSH Medical History Lumbar stenosis with neurogenic claudication ?M48.062 - Spinal stenosis, lumbar region with neurogenic claudication (ICD- 10) Osteoarthritis of right knee ?M17.11 - Unilateral primary osteoarthritis, right knee (ICD-10) Chronic pain syndrome ?G89.4 - Chronic pain syndrome (ICD-10) Chronic prescription opiate use ?Z79.891 - 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 (ICD-10) Osteoarthritis, 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 - Primary osteoarthritis, unspecified shoulder (ICD-10) Right shoulder pain ?M25.511 - Pain in right shoulder (ICD-10) Lumbar radiculopathy ?M54.16 - Radiculopathy, lumbar region (ICD-10) Abdominal pain ?R10.9 - Unspecified abdominal pain (ICD-10) Nausea & vomiting ?R11.2 - Nausea with vomiting, unspecified (ICD-10) Esophagitis ?K20.90 - Esophagitis, unspecified without bleeding (ICD-10) Muscle spasm ?M62.838 - Other muscle spasm (ICD-10) Lumbar stenosis ?M48.061 - Spinal stenosis, lumbar region without neurogenic claudication (ICD-10) Lumbar spondylosis ?M47.816 - Spondylosis without myelopathy or radiculopathy, lumbar region (ICD-10) Retraction of blood clot ?I74.9 - Embolism and thrombosis of unspecified artery (ICD-10) Inguinal hernia ?K40.90 - Unilateral inguinal hernia, without obstruction or gangrene, not specified as recurrent (ICD-10) Presence of Watchman left atrial appendage closure device ?Z95.818 - Presence of other cardiac implants and grafts (ICD-10) Low back pain ?M54.50 - Low back pain, unspecified (ICD-10) Rheumatoid arthritis ?M06.9 - Rheumatoid arthritis, unspecified (ICD-10) Osteoarthritis ?M19.90 - Unspecified osteoarthritis, unspecified site (ICD-10) Gout ?M10.9 - Gout, unspecified (ICD-10) DVT (deep venous thrombosis) ?I82.409 - Acute embolism and thrombosis of unspecified deep veins of unspecified lower extremity (ICD-10) Bladder cancer ?C67.9 - Malignant neoplasm of bladder, unspecified (ICD-10) Hearing deficit ?H91.90 - Unspecified hearing loss, unspecified ear (ICD-10) IBS (irritable bowel syndrome) ?K58.9 - Irritable bowel syndrome without diarrhea (ICD-10) Acid reflux ?K21.9 - Gastro-esophageal reflux disease without esophagitis (ICD-10) Hypothyroid ?E03.9 - Hypothyroidism, unspecified (ICD-10) Diabetes 1.5, managed as type 2 ?E13.9 - Other specified diabetes mellitus without complications (ICD-10) Kidney stone ?N20.0 - Calculus of kidney (ICD-10) Prostate cancer ?C61 - Malignant neoplasm of prostate (ICD-10) CPAP (continuous positive airway pressure) dependence ?Z99.89 - Dependence on other enabling machines and devices (ICD-10) Sleep apnea ?G47.30 - Sleep apnea, unspecified (ICD-10) Hypercholesterolemia ?E78.00 - Pure hypercholesterolemia, unspecified (ICD-10) Hypertension ?I10 - Essential (primary) hypertension (ICD-10) Surgical History H/O transurethral resection of bladder tumor (TURBT) ?Z98.890 - Other specified postprocedural states (ICD-10) ?Z86.03 - Personal history of neoplasm of uncertain behavior (ICD-10) H/O arthroscopy of knee ?Z98.890 - Other specified postprocedural states (ICD-10) S/P tonsillectomy and adenoidectomy ?Z90.89 - Acquired absence of other organs (ICD-10) Previous back surgery ?Z98.890 - Other specified postprocedural states (ICD-10) H/O neck surgery ?Z98.890 - Other specified postprocedural states (ICD-10) Family History Other Family history of diabetes mellitus Social History (Updated 07/18/23 @ 22:27 by Betsy Rojo) Within the past year, how often did you have a drink containing alcohol: never Score interpretation: A score less than 4 is consistent with normal alcohol consumption. Smoking status: Never smoker Non-prescribed substance use: denies use Previous occupational history: retired Known occupational exposures/hazards: No Highest level of school completed/degree received: high school graduate Are you now , , , , never or living with a partner: In a typical week, how many times do you talk on the telephone with family, friends, or neighbors: 3 or more times per week How often do you get together with friends or relatives: 3 or more times per week How often do you attend gnosticism or hoahaoism services: never Do you belong to any clubs or organizations such as gnosticism groups unions, fraternal or athletic groups, or school groups: no Total score: 1 Score interpretation: A score of less than or equal to 1 indicates the most socially isolated. Little interest or pleasure in doing things: not at all Feeling down, depressed, or hopeless: not at all Feel stressed/tense/nervous/anxious/difficulty sleeping: not at all Do you think of yourself as: straight/heterosexual Gender Identity: male Exam Narrative Exam Narrative: Vital Signs reviewed and nurse's notes reviewed. The patient is not hypoxic. General: Alert, appears uncomfortable worse with movement lower back. Skin: warm, intact, no pallor noted, no rash Head: Normocephalic, atraumatic Eye: Normal conjunctiva, EOMI Respiratory: No acute distress Abdomen: Normal bowel sounds, soft, nontender, no masses detected. No rebound, guarding, or rigidity noted. No midline pulsatile mass. Back: inspection of the back shows no obvious deformity, no swelling, no ecchymosis, contusion, abrasion, swelling, erythema, fluctuance or induration. No step offs or crepitus noted. No CVA tenderness noted bilaterally. Tenderness noted to midline lumbar and paravertebral soft tissues. Straight leg raise on left is neg. + tight hamstrings bilaterally Straight leg raise on right is neg . Musculoskeletal: No deformity noted to bilateral lower extremities.Pain noted to the right hip with log rolling, tolerates straight leg raise and negative FADIR and HESHAM. no cyanosis or mottling noted. pulses PT 1+ bilaterally and symmetrically. Normal 5/5 strength at ankles with dorsiflexion and plantar flexion quad/ ham limited with pain 4/5.+ chronic lymphedma like swelling. Patient unable to ambulate without 2 person assist. Normal sensation noted to the bilateral lower extremities. Rectal: RN present. no gross blood, rectal tone present. prostate not examined. history of seeds Neurological: alert and oriented x4, normal sensory and motor observed. DTR 1+ at patellar and achilles bilaterally. Psychiatric: Cooperative Constitutional Vital Signs, click to edit/add: Last Vital Signs Temp 97.8 F 07/19/23 05:41 Pulse 84 07/19/23 05:41 Resp 20 07/19/23 05:41 BP 139/84 07/19/23 05:41 Pulse Ox 95 07/19/23 05:41 O2 Del Method Room Air 07/19/23 05:41 Course Vital Signs Vital signs: Vital Signs Temperature 97.6 F 07/18/23 19:06 Pulse Rate 68 07/18/23 19:06 Respiratory Rate 20 07/18/23 19:06 Blood Pressure 150/77 H 07/18/23 19:06 Pulse Oximetry 97 07/18/23 19:06 Oxygen Delivery Method Room Air 07/18/23 19:06 Temperature 97.8 F 07/19/23 05:41 Pulse Rate 84 07/19/23 05:41 Respiratory Rate 20 07/19/23 05:41 Blood Pressure 139/84 07/19/23 05:41 Pulse Oximetry 95 07/19/23 05:41 Oxygen Delivery Method Room Air 07/19/23 05:41 Medical Decision Making MDM Narrative Medical decision making narrative: patient presents on [facility] multiple times a day last dose around 5 PM, occasional muscle relaxants experiencing intractable low back pain, patient notes symptoms worsening over the past six months, difficulty navigating his home prior to arrival this evening. Planned possible pain management injection on Friday but patient states he is unable to wait. He does not have a focal deficit other than pain with prior MRI showing severe stenosis. Patient notes difficulty with standing and son concerned with being fall risk. Patient medicated for pain 1 mg Dilaudid here on arrival, Solu-Medrol one twenty-five. R ecommend CT of the spine given exam, rule out fracture, known stenosis and bladder scan without evidence of urinary retention. Patient denies fevers or chills. Patient reevaluated, awaiting CT report reading.Pain much more tolerable, not able to stand without two person assist, potassium noted to be low and given oral replacement 50 mEq. Will speak with hospitalist for admission on intractable back pain( spinal stennosis) Tx [facility] pain management, patient significant fall risk unable to go home. spoke with hospitalist, Dr. Moreland, recommended magnesium level, agreeable to admit observation pending eval tomorrow. The patient is aware of admission to observation in that I cannot promise pain management would consult on him during his stay but they will assess his progress with ability to stand and walk and response to parental treatments for his symptoms. Medical Records Medical records reviewed: Yes I reviewed the patient's medical records Medical records narrative: MRI 06/03/23 [facility]: IMPRESSION: 1. No acute lumbar spine abnormalities. 2. Severe L3-L4 spinal canal stenosis. 3. Moderate L5-S1 spinal canal stenosis. Electronically authenticated by: CONNIE PETERSON Date: 06/03/2023 15:15 Bilateral LE ultrasound 06/10/23: IMPRESSION: 1. Negative for deep venous thrombosis in either lower extremity. Negative for superficial venous thrombus. 2. Nonspecific subcutaneous edema of both calves. 3. 7.9 x 3.2 x 1.7 cm right popliteal fossa fluid collection consistent with a Rivera's cyst. Electronically authenticated by: JOSH BARROS Date: 06/10/2023 15:40 Lab Data Labs: Lab Results 07/18/23 07/18/23 07/18/23 Range/Units 19:12 19:15 19:20 WBC 10.7 (4.0-11.0) 10^3/uL RBC 4.77 (4.70-6.10) 10^6/uL Hgb 15.5 (14.0-18.0) g/dL Hct 45.7 (42.0-54.0) % MCV 95.8 H (80.0-94.0) fL MCH 32.5 (25.9-34.0) pg MCHC 33.9 (29.9-35.2) g/dL RDW 13.0 (11.0-15.0) % Plt Count 149 L (150-450) 10^3/uL MPV 10.0 (9.5-13.5) fL Neut % (Auto) 85.5 H (43.0-75.0) % Lymph % (Auto) 7.8 L (20.5-60.0) % Parke % (Auto) 5.1 (1.7-12.0) % Eos % (Auto) 0.8 L (0.9-7.0) % Baso % (Auto) 0.3 (0.2-2.0) % Neut # (Auto) 9.1 H (1.4-6.5) 10^3/uL Lymph # (Auto) 0.8 L (1.2-3.8) 10^3/uL Parke # (Auto) 0.5 (0.3-0.8) 10^3/uL Eos # (Auto) 0.1 (0.0-0.7) 10^3/uL Baso # (Auto) 0.0 (0.0-0.1) 10^3/uL Abs Immat Gran (auto) 0.05 H (0.00-0.03) 10^3/uL Imm/Tot Granulo (auto) 0.5 (0.0-0.5) % ESR 13 (<=20) mm/hr Sodium 139 (136-145) mmol/L Potassium 2.8 L* (3.5-5.1) mmol/L Chloride 100 (98-107) mmol/L Carbon Dioxide 28.7 (21.0-32.0) mmol/L Anion Gap 13.1 BUN 18.0 (7.0-18.0) mg/dL Creatinine 1.03 (0.70-1.30) mg/dL Est GFR ( Amer) >60 (>=60) Est GFR (Non-Af Amer) >60 (>=60) BUN/Creatinine Ratio 17.5 Glucose 156 H (74-106) mg/dL Calcium 8.5 (8.5-10.1) mg/dL Magnesium 1.7 L (1.8-2.4) mg/dL Total Bilirubin 0.7 (0.2-1.0) mg/dL AST 25 (15-37) U/L ALT 69 H (16-63) U/L Alkaline Phosphatase 60 (46-116) U/L C-Reactive Protein <0.50 (<=0.50) mg/dL Total Protein 7.1 (6.4-8.2) g/dL Albumin 4.0 (3.4-5.0) g/dL Globulin 3.1 g/dL Albumin/Globulin Ratio 1.3 Stool Occult Blood Negative Imaging Data xr hip right: Radiologist's impression: ITS Impressions Lumbar Spine CT 07/18/23 19:23 IMPRESSION: No osseous abnormality of the lumbar spine. Multilevel moderate to severe degenerative disc disease as above. Electronically authenticated by: MAX LEE Date: 07/18/2023 20:36 Hip/Pelvis X-Ray 07/18/23 19:28 IMPRESSION: No acute osseous abnormality of the right hip. Electronically authenticated by: MAX LEE Date: 07/18/2023 20:30 ct lumbar spine: Radiologist's impression: ITS Impressions Lumbar Spine CT 07/18/23 19:23 IMPRESSION: No osseous abnormality of the lumbar spine. Multilevel moderate to severe degenerative disc disease as above. Electronically authenticated by: MAX LEE Date: 07/18/2023 20:36 Hip/Pelvis X-Ray 07/18/23 19:28 IMPRESSION: No acute osseous abnormality of the right hip. Electronically authenticated by: MAX LEE Date: 07/18/2023 20:30 Discharge Plan Discharge Chief Complaint: Back Pain/Injury Clinical Impression: Intractable low back pain, Spinal stenosis, Unable to ambulate, Acute hypokalemia Patient Disposition: Admitted as Observation Time of Disposition Decision: 20:58 Condition: Good Discharge Date/Time: 07/18/23 21:52
--- NOTE | 2023-07-18 19:28 | XR_ITS ---
The [address] [address] Patient Name: GUILLERMINA GUADALUPE MRN: [id number] date: 1935 Sex: M Assigned Patient Location: ER Current Patient Location: ER Accession/Order Number: [id number] Exam Date: 07/18/2023 19:50 Report Date: 07/18/2023 20:30 At the request of: MICHELE HOYT Procedure: XR hip RT 2V w/ pelvis EXAM: XR hip RT 2V w/ pelvis HISTORY: pain COMPARISON: None. TECHNIQUE: 3 views right hip FINDINGS: Mild degenerative changes of the hips bilaterally and the sacroiliac joints. No acute fracture or aggressive osseous abnormality. Incidental note of vascular calcification. Prostatic seeds project in the pelvis. XR/XR hip RT 2V w/ pelvis IMPRESSION: No acute osseous abnormality of the right hip. Electronically authenticated by: MAX LEE Date: 07/18/2023 20:30
[2023-07-18 19:39] LABS: Basophils Percent Auto 0.3 % (0.2-2.0); Eosinophils Absolute Auto 0.1 10^3/uL (0.0-0.7); Eosinophils Percent Auto 0.8 % (0.9-7.0); Hematocrit 45.7 % (42.0-54.0); Hemoglobin 15.5 g/dL (14.0-18.0); Immature Granulocytes Abs Auto 0.05 10^3/uL (0.00-0.03); Immature Granulocytes Pct Auto 0.5 % (0.0-0.5); Lymphocytes Absolute Auto 0.8 10^3/uL (1.2-3.8); Lymphocytes Percent Auto 7.8 % (20.5-60.0); Mean Corpuscular HGB Conc 33.9 g/dL (29.9-35.2); Mean Corpuscular Hemoglobin 32.5 pg (25.9-34.0); Mean Corpuscular Volume 95.8 fL (80.0-94.0); Monocytes Absolute Auto 0.5 10^3/uL (0.3-0.8); Monocytes Percent Auto 5.1 % (1.7-12.0); Neutrophils Absolute Auto 9.1 10^3/uL (1.4-6.5); Neutrophils Percent Auto 85.5 % (43.0-75.0); Platelet Count 149 10^3/uL (150-450); Red Blood Count 4.77 10^6/uL (4.70-6.10); White Blood Count 10.7 10^3/uL (4.0-11.0)
[2023-07-18 19:40] LABS: Occult Blood Negative
[2023-07-18 19:49] LABS: Alanine Aminotransferase 69 U/L (16-63); Albumin Globulin Ratio 1.3; Alkaline Phosphatase 60 U/L (46-116); Anion Gap 13.1; Aspartate Amino Transferase 25 U/L (15-37); BUN Creatinine Ratio 17.5; Bilirubin Total 0.7 mg/dL (0.2-1.0); Calcium 8.5 mg/dL (8.5-10.1); Carbon Dioxide 28.7 mmol/L (21.0-32.0); Chloride 100 mmol/L (98-107); Estimated GFR (African America >60 (>=60); Estimated GFR (Non-African Ame >60 (>=60); Globulin 3.1 g/dL; Glucose 156 mg/dL (74-106); Sodium 139 mmol/L (136-145); Total Protein 7.1 g/dL (6.4-8.2)
[2023-07-18 19:53] LABS: C Reactive Protein <0.50 mg/dL (<=0.50); Erythrocyte Sedimentation Rate 13 mm/hr (<=20)
[2023-07-18 19:54] LABS: Potassium 2.8 mmol/L (3.5-5.1)
[2023-07-18] MEDS: ONDANSETRON PF 4 MG/2 ML VIAL IV (19:57)
[2023-07-18] MEDS: 0.9 % SODIUM CHLORIDE 1,000 ML 100 ML IV (19:57)
[2023-07-18] MEDS: METHYLPREDNISOLONE SOD SUCC PF 125 MG/2 ML VIAL IVP (20:00)
[2023-07-18] MEDS: HYDROMORPHONE HCL 1 MG/ML CARTRIDGE IVP (20:02)
[2023-07-18 20:03] VITALS: BP 140/77; PULSE 64; RESP 18; O2SAT 97
[2023-07-18] MEDS: POTASSIUM BICARBONATE/CIT 25 MEQ TABLET EFF 50 MEQ PO (20:13)
[2023-07-18 21:10] VITALS: BP 134/76; PULSE 70; RESP 20; O2SAT 96
[2023-07-18 21:47] LABS: Magnesium 1.7 mg/dL (1.8-2.4)
--- OUTSIDE RECORDS SUMMARY | 2023-07-18 21:48 | XMS_ITS | CCD ---
Author Name Unknown Address [address] [place] [address] Organization [facility] Care Team Providers Care Pre School Manager Name Role Phone PHYSICIAN, DEFAULT Unavailable Unavailable PHYSICIAN, DEFAULT Unavailable Unavailable KIERA LOMBARDO Primary Care Physician [phone] Franky Veronica Primary Care Provider SHAIKH ELLIOTT Primary Care Physician [phone] AURELIO DURAES, TRISTIN Referring Unava ilable VERONICA, [...] Admitting Unavailable MOREJON ., CALVIN Consulting Unavailable [facility] Primary Care Unavailable WINSTON ., DR PAULINE Ring Attending Unavailable WINSTON ., DR PAULINE Ring Admitting Unavailable [facility] Primary Care Unavailable WEST, DR LEEANN Valles Consulting Unavailable MOUKARBEL, DR WALLS Admitting Unavailable MOUKARBEL, DR WALLS Attending Unavailable MOUKARBEL, DR WALLS Consulting Unavailable [facility] Primary Care Unavailable AKKINA, REMY Admitting Unavailable AKKINA, REMY Attending Unavailable WINSTON ., DR PAULINE Ring Consulting Unavailable AKKINA, REMY Consulting Unavailable REQUEST, DR NONE LISTED Primary Care Unavaila ble NILL ., DR HYMAN Admitting Unavailable NILL ., DR HYMAN Attending Unavailable NILL ., DR HYMAN Consulting Unavailable [facility] Consulting Unavailable NEFCY, BRITTANIE Consulting Unavailable [facility] Primary Care Unavailable VERGARA ., DR JASSO Admitting Unavailable VERGARA ., DR JASSO Attending Unavailable VERGARA ., DR JASSO Consulting Unavailable [facility] Primary Care Unavailable WINSTON ., DR PAULINE Ring Consulting Unavailable WINSTON ., DR PAULINE Ring Admitting Unavailable WINSTON ., DR PAULINE Ring Attending Unavailable LAKSHMIPATHY ., ROGELIO Attending Sweta vailable LAKSHMIPATHY ., ROGELIO Admitting Sweta vailable [facility] Primary Care Unavailable [facility] Primary Care Unavailable NILL ., DR HYMAN Attending Unavailable NILL ., DR HYMAN Consulting Unavailable NILL ., DR HYMAN Admitting Unavailable AGUBOSIM, ELIZ Consulting Unavailable DORKOSKLEO KADNICE Consulting Unavailable [facility] Primary Care Unavailable NILL ., DR HYMAN Attending Unavailable NILL ., DR HYMAN Admitting [facility]available [facility] Primary Care Unavailable VERGARA ., DR JASSO Admitting Unavailable VERGARA ., DR JASSO Attending Unavailable VERGARA ., DR JASSO Consulting Unavailable WINSTON ., DR PAULINE Ring Attending Unavailable WINSTON ., DR PAULINE Ring Consulting Unavailable [facility] Primary Care Unavailable WINSTON ., DR [...] KATE Consulting Unavailable IVANCARMINA Consulting Unavailable MICHAEL SPIVEY Consulting Unavailable NERISSA ORDONEZ Referring Unavailable ANDREA [...] [acetaminophen-hydr ocodone] Drug Allergy Nausea and vomiting [facility] (14 sources) Acetaminophen / oxyCODONE; Translations: [acetaminophen-oxyc odone] Drug Allergy 06-03-20 16 Vomiting [facility] (16 sources) tiZANidine; Translations: [tizanidine] Drug Allergy 05-11-20 19 Mental Status Change, Vomiting [facility] (9 sources) traMADol; Translations: [tramadol] Drug Allergy 02-28-20 22 Hallucinations [facility] (2 sources) Acetaminophen / oxyCODONE; Translations: [OXYCODONE-ACETAMIN OPHEN] Drug Allergy 06-03-20 16 [facility] (2 sources) Acetaminophen / HYDROcodone Drug Allergy 06-03-20 16 [facility] (2 sources) Acetaminophen / oxyCODONE Drug Allergy 06-03-20 16 [facility] (2 sources) cyclobenzaprine Drug Allergy 07-18-19 17 [facility] (1 source) tiZANidine Drug Allergy [facility] (2 sources) traMADol Drug Allergy 06-12-20 16 [facility] Medications Current Medications Medication Drug Class(es) Dates Sig (Normalized) Sig (Original) [facility] oral capsule (4 sources) Start: 06-01-2019 take 1 capsule by mouth twice daily [facility] oral capsule cap(s), Oral, BID, Refill(s) 0, Prophylaxis Start Date: 06/01/19 Status: Ordered [id number] 200 actuat albuterol 0.09 mg/actuat metered dose [...] Timolol (7 sources) Carbonic Anhydrase Inhibitor, beta-Adrenergic Juliana Start: 07-10-2021 take 1 drop(s) into the [...] osus GG (7 sources) Start: 04-22-2022 [facility] Refill(s) 0 Start Date: 04/22/22 [...] Daily, # 30 tab(s), Refills(s) 0, Pharmacy: [facility], 177.8, cm, 07/10/21 15:02:00 EST, Height/Length Dosing, 88.6, kg, 07/10/21 15:02:00 EST, Weight Dosing Start Date: 07/10/21 Status: Ordered Start: 07-10-2021 take 1 tablet by ravi th once daily pantoprazole 40 mg Oral EC Tab 40 mg = 1 tab(s), Oral, Daily, # 30 tab(s), Refills(s) 0, Pharmacy: [facility], 177.8, cm, 07/10/21 15:02:00 EST, Height/Length Dosing, 88.6, kg, 07/10/21 15:02:00 EST, Weight Dosing Start Date: 07/10/21 Status: Ordered pregabalin 75 mg oral capsule (9 sources) Start: 04-22-2022 take 1 capsule by mouth twice daily pregabalin 75 mg Cap 75 mg = 1 cap(s), Oral, BID, Refills(s) 0 Start Date: 04/22/22 Status: Ordered take 1 capsule by [facility] three times daily pregabalin (LYRICA) 50 mg [...] every six hours as needed for pain [place]air[place] 325 mg-5 mg oral tablet 1 tab(s), [...] procedure, # 2 tab(s), Refills(s) 0, Pharmacy: [facility] #[id number], 177.8, cm, 04/22/22 15:44:00 EDT, Height/Length Dosing, 85.4, kg, 04/22/22 15:44:00 EDT,... Start Date: 07/26/22 Status: Ordered Start: 07-10-2021 take 1 tablet by ravi once daily Cipro 500 mg Tab 500 mg = 1 tab(s), Oral, Daily, Take 1 tablet 07/16/21 and 1 tablet after the procedure 07/17/21, # 2 tab(s), Refills(s) 0, Pharmacy: [facility] 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 (current) drug therapy; Translations: [OTH INTERMEDIATE CURRENT DRUG THERAPY] Onset: 02-12-2022 Episodic Other aftercare (1 source) ad terminal makeup operator (current) use of aspirin; Translations: [INTERMEDIATE CURRENT USE OF ASPIRIN] Onset: 02-12-2022 Episodic Other aftercare (1 source) residential (current) use of anticoagulants; Translations: [INTERMEDIATE CURRNT USE ANTICOAGULANTS] Onset: 11-27-2021 Episodic Other aftercare (2 sources) ad terminal makeup operator (current) use of antibiotics; Translations: [residential (current) use of antibiotics] Onset: 10-18-2022 Episodic [...] Reminders - [facility]c: Alaina Dickson; Sent: 10/16/2022 14:04:20 EDT Show up: 06/06/2023 14:04:00 EST Subject: cysto/fish/cytol Due Date/Time: 06/23/2023 14:04:00 EST Reminder/Recall Patient is due in Jul 2023 for 1 year cysto/fish/cytol (bt ck) l/m on Milly per pt request from appt 06/20/23.LG Spoke to Milly, pt sched for 07/22/[address] [facility]. Confirmation mailed. Patient will be due in Jul 2024, 1 year cysto/fish/cytol [facility] Ambulatory Visit Summaryon 1 08-21-2022 Ambulatory Visit Summary BEN GUADALUPE :1935 Visit Date:06/20/2023 Ambulatory Visit Instructions Your Diagnosis Rising PSA 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 Urinary retention Prostatitis BPH with urinary obstruction Urge incontinence History of bladder cancer Tests Performed Urnls Dip Stick Auto w/o Microscopy POC 46392 Your Care Team Attending Physician - Mekhi VERGARA MD Primary Care Physician - LEXI WORKMAN, This Is Your Medications List ciprofloxacin (Cipro 500 mg Tab) doxycycline (doxycycline hyclate 100 mg Tab) Contact prescribing physician if questions or concerns acetaminophen-hydrocodone ([place] 325 mg-5 mg oral tablet) albuterol (ProAir [...] (glipiZIDE 5 mg Tab) lactobacillus rhamnosus GG ([facility]) levothyroxine (levothyroxine 50 mcg (0.05 mg) [...] with URSULA WORKMAN, GO Scott When: Where: [address] [place] [address]- Medications What How Much When Instructions New ciprofloxacin (Cipro 500 mg Tab) 1 Tablets By Mouth As Directed Pt to take 1 tab the day before procedure and the 2nd tab the day of procedure once completed. Pickup at [facility] #[id number] New doxycycline (doxycycline hyclate 100 mg Tab) 1 Tablets By Mouth 2 times a day Duration: 2 Weeks Pickup at [facility] #[id number] Unchanged acetaminophen-hydrocodone ([place]air[place] 325 mg-5 mg oral tablet) 1 Tablets [...] questions or (more content not included)... Normal [facility] Patient Educationon 06-20-20 Patient Education Infectious Disease [...] these instructions at home: Medicines ? Take pyak-kwc-ivzusqm and prescription medicines only as told by [...] Where to find more information ? National [place] of Diabetes and Digestive and Kidney Diseases: (more content not included)... Normal [facility] Urology Office/Clinic Noteon 06-20-2023 Urology Office/Clinic Note [...] recent PSA. Pt has been to the [facility] ER 3x since 06/10/23 w/ complaints [...] of urine, unspecified) Pt has been to [facility] ER 3x since 06/10/23 w/ complaints [...] Contact Information Mekhi VERGARA MD, [address] [place] [address]- Additional Instructions: Schedule cysto for b.t. check [...] BMI 27 (more content not included)... Normal [facility] Comment on above: Result Comment: Elec tronically Signed By: Mekhi VERGARA MD\.br\Date and Time Signed: 06/20/23 11:33 EST\.br\Electronically Co-Signed By: Silke Dupont\Date and Time Co-Signed: 06/20/23 11:32 EST Office Visiton 03-07-2023 Follow-up visit [id number] Ben Guadalupe 1935 M Date Provider Department Center 03/07/2023 ANDREA GOLDSTEIN [facility] Family History Problem Relation Age of Onset Heart failure Mother Prostate cancer Father Coronary artery disease Brother Prostate cancer Brother Family Status - Relation Status Age at Mother Father Brother Level of Service:69336 MI OFFICE/OUTPATIENT ESTABLISHED MOD MDM 30-[address] [facility] Ambulatory Visit Summaryon 0 12-23-2022 Ambulatory Visit Summary BEN GUADALUPE :1935 Visit Date:12/23/2022 Ambulatory Visit Instructions Your Diagnosis Rising PSA 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 Urge incontinence BPH with urinary obstruction History of bladder cancer Kidney stones Tests Performed Urnls Dip Stick Auto w/o Microscopy POC 71053 Your Care Team Attending Physician - URSULA WORKMAN, Mekhi [place] Primary Care Physician - SHAIKH ELLIOTT This Is Your Medications List Contact prescribing physician if questions or concerns acetaminophen-hydrocodone ([place] 325 mg-5 mg oral tablet) albuterol (ProAir [...] (Lasix 40 mg Tab) lactobacillus rhamnosus GG ([facility]) levothyroxine (levothyroxine 50 mcg (0.05 mg) [...] Mekhi VERGARA MD Where: [facility] Patient Educationon 12-24-19 Patient Education [...] if anything looks unusual. Men with a mbanyf-hbea-heqchk risk for skin cancer may want to see a hide or skin buffer (air conditioning mechanic) for an annual body check. What are the benefits of screening? Cancer screening is done to look for cancer in the very early stages, before it spreads and becomes harder to treat and before you would start to notice symptoms. Finding cancer early improves the chances of successful treatment. It ma (more content not included)... Normal [facility] Urology Office/Clinic Noteon 12-23-2022 Urology Office/Clinic Note [...] [facility] [address], [place] [address]- Additional Instructions: 6 mos psa Patient Education [...] ring Urg (more content not included)... Normal [facility] Comment on above: Result Comment: Elec tronically Signed By: Mekhi VERGARA MD\.br\Date and Time Signed: 12/23/22 13:49 EDT\.br\Electronically Co-Signed By: Tierra Anderson\.br\Date and Time Co-Signed: 12/23/22 13:48 EDT POINT OF CARE GLUCOSEon 10-06 Glucose [Mass/Vol] 230 mg/dL Critically high 74-106 T [facility] Comment on above: Performed By: #### P SAD #### [facility] [address] [address] [address] Mason Astudillo Office Visiton 10-18-2022 Follow-up visit [id number] Ben Guadalupe 1935 M Date Provider Department Center 10/18/2022 Kellen-NERISSA ORDONEZ [facility] Family History Problem Relation Age of Onset Heart failure Mother Prostate cancer Father Coronary artery disease Brother Prostate cancer Brother Family Status - Relation Status Age at Mother Father Brother Level of Service:32972 MI OFFICE/OUTPATIENT ESTABLISHED LOW MDM 20-29 MIN Reason for Visit and Comments: Coronary Artery Disease [187] Atrial Fibrillation [80] Normal [facility] [place] 10-11-2022 ANES -------- Attestation signed [...] 10/11/22 0900 Procedure: TRANSESOPHAGEAL ECHO (KINZA) Location: [facility] V[facility] Vascular Lab [...] fellow and attending. Additional Equipment Requests Normal [facility] HPon 10-11-2022 -------- Attestation signed by [...] there are no changes to the H&P. [facility] Provider Letteron 09-13-2022 Provider Letter (Inserted Image. Sweta ble to display) September 13, 2022 BEN GUADALUPE [address] [place] [id number] BEN GUADALUPE 1935 Dear Mr. Guadalupe, We [...] prompt attention to this matter. Please call [phone] option 3 to be rescheduled. Sincerely, [facility] [address], [place] [address] [facility] HPon 09-11-2022 [facility] Cardiology - [facility] Subjective Ben Guadalupe is a 86 y.o. year old male patient who presents to clinic for follow-up after his Watchman device implant. Patient Active Problem List Diagnosis Arteriosclerosis of coronary artery Essential (primary) hypertension Left ventricular hypertrophy Mixed hyperlipidemia PAF (paroxysmal atrial fibrillation) (CMS/HCC) Blood loss anemia Other hemorrhoids Paroxysmal atrial fibrillation ([facility]/HCC) Benign prostatic hyperplasia with lower urinary tract symptoms Calculus of kidney Chronic obstructive pulmonary disease ([facility]/HCC) Dementia in other diseases classified elsewhere, unspecified severity, without behavioral disturbance, psychotic disturbance, mood disturbance, and anxiety ([facility]/HCC) Sleep apnea Intracranial hemorrhage ([facility]/HCC) History of DVT (deep vein thrombosis) [...] February 2022 [facility] with palpitations and chest pain. He [...] lower le (more content not included)... Normal [facility] 30on 08-29-2022 30 Problem: Pain - [...] and behaviors that affect risk of falls [place] fall precautions as indicated by assessment Educate [...] make progress toward the following goals. Normal [facility] DSon 08-29-2022 DS -------- Attestation signed by Kavita Danielle MD at 08/30/2022 1:55 PM I discussed the patient on the same date of service as the Non-Physician Provider Maritza Kirkland. Teaching Physician's Revisions: None Admission Admitted 08/27/2022 for Paroxysmal atrial fibrillation Discharge Diagnosis Paroxysmal atrial fibrillation ([facility]) Discharge Disposition Home or Self Care Discharge [...] HYDROcodone-acetaminophen 5-325 mg tablet Commonly known as: [place] levothyroxine 50 mcg tablet Commonly known as: [...] Medications These medications were sent to [facility] - [place], [place] - [address] [place] [address] [place] [address], [facility] [address] atorvastatin 40 mg tablet clopidogrel 75 mg [...] reduce the risk of stroke given elevated [id number] score of 5 due to age, hypertension, [...] needs long-term anticoagulatio (more content not included)... [facility] NURSNOTEon 08-29-2022 NURSNOTE Discharge instructio ns provided to patient and signed copy in the chart. Pt denies further questions at this time. [facility] NURSNOTE Rn assessed patient at beginning of shift and TR band was already deflated on the L radial cath site. Site was clean, dry, and intact with no signs of bleeding. Rn replaced TR band with gauze and transparent dressing and continued to do cath checks. [facility] 30on 08-28-2022 30 Problem: Pain - Adul [...] and behaviors that affect risk of falls [place] fall precautions as indicated by assessment Educate [...] shift include stable site & HR Normal [facility] Trey 08-28-2022 ANES -------- Attestation signed by Nishi Cheney MD at 08/28/2022 3:17 PM Nishi Cheney MD, MPH, [facility] Interventional Cardiology Pager Email: [email or web address] Patient: Ben Guadalupe Procedure Information Date/Time: 08/28/22 1013 Procedure: Left heart cath Location: [facility] TEST CONDUCTOR 2 BIPLANE / [facility] (Cath) Providers: Nishi Cheney [...] fellow and attending. Additional Equipment Requests Normal [facility] BASIC METABOLIC PANELon 02- Anion gap [Moles/Vol] 12 mmol/L Normal 7-20 [facility] Comment on above: Performed By: #### L AB15 ####[facility] ([facility])[address] [place] [address] Calcium [Mass/Vol] 8.5 mg/dL Low 8.6-10.3 [facility] Comment on above: Performed By: #### L AB15 ####[facility] ([facility])[address] [facility] [address] Chloride [Moles/Vol] 104 mmol/L Normal 98-107 [facility] Comment on above: Performed By: #### L AB15 ####[facility] ([facility])[address] [facility] [address] CO2 [Moles/Vol] 25 mmol/L Normal 21-31 [facility] Comment on above: Performed By: #### L AB15 ####[facility] ([facility])[address] [place] [address] Creatinine [Mass/Vol] 1.05 mg/dL Normal 0.70-1.30 [facility] Comment on above: Performed By: #### L AB15 ####[facility] ([facility])[address] [place] [address] GLOMERULAR FILTRATION RATE ML/MIN/1.73 SQ M.PREDICTED 64.4 mL/min/1.73m*2 Normal >60.0 [facility] Comment on above: Result Comment: [facility]???s estimated glomerular filtration rate (eGFR) will [...] individuals. Performed By: #### L AB15 ####[facility] ([facility])[address] [place] [address] Glucose [Mass/Vol] 119 mg/dL High 70-100 [facility] Comment on above: Performed By: #### L AB15 ####[facility] ([facility])[address] [place] [address] Potassium [Moles/Vol] 3.6 mmol/L Normal 3.5-5.1 [facility] Comment on above: Performed By: #### L AB15 ####[facility] ([facility])[address] [place] [address] Sodium [Moles/Vol] 137 mmol/L Normal 136-145 [facility] Comment on above: Performed By: #### L AB15 ####[facility] ([facility])[address] [place] [address] Urea nitrogen [Mass/Vol] 21 mg/dL Normal 7-25 [facility] Comment on above: Performed By: #### L [id number] ####[facility] ([facility])[address] [place] [address] UREA NITROGEN/CREATININE (MASS RATIO) IN SER/PLAS 20.[address] [facility] Comment on above: Performed By: #### L AB15 ####[facility] ([facility])[address] [place] [address] CBCon 08-28-2022 Erythrocyte distribution width (RBC) [Ratio] 15.0 % Normal 11.5-15.0 [facility] Comment on above: Performed By: #### L [id number] ####[facility] ([facility])[address] [place] [address] ERYTHROCYTE MEAN CORPUSCULAR HEMOGLOBIN CONCENTRATION (G/DL) BY AUTOMATED 33.0 g/dL Normal 32.0-35.0 [facility] Comment on above: Performed By: #### L [id number] ####[facility] ([facility])[address] [place] [address] Hematocrit (Bld) [Volume fraction] 43.6 % Normal 39.0-55.0 [facility] Comment on above: Performed By: #### L [id number] ####[facility] [place] [address] Hemoglobin (Bld) [Mass/Vol] 14.4 g/dL Normal 13.0-17.0 [facility] Comment on above: Performed By: #### L [id number] ####[facility] [place], [place] [address] IMMATURE PLATELET FRACTION % 1.7 % Normal 0.8-6.3 [facility] Comment on above: Performed By: #### L [id number] ####[facility] [place] [address] MCH (RBC) [Entitic mass] 29.4 pg Normal 27.0-33.0 [facility] Comment on above: Performed By: #### L [id number] ####[facility] [place] [address] MCV (RBC) [Entitic vol] 89.2 fL Normal 82.0-98.0 [facility] Comment on above: Performed By: #### L [id number] ####[facility] [place] [address] PLATELETS (10*3/UL) IN BLOOD AUTOMATED COUNT 124 10*3/uL Low 150-400 [facility] Comment on above: Performed By: #### L [id number] ####[facility] ([facility])[address] [place] [address] RBC (Bld) [#/Vol] 4.89 10*6/uL Normal 4.20-5.70 [facility] Comment on above: Performed By: #### L [id number] ####[facility] ([facility])[address] [facility] [address] WBC (Bld) [#/Vol] 6.30 10*3/uL Normal 4.00-10.60 [facility] Comment on above: Performed By: #### L [id number] ####[facility] ([facility])[address] [place] [address] HPon 08-28-2022 HP -------- Attestation signed by Nishi Cheney MD at 08/28/2022 3:17 PM Nishi Cheney MD, MPH, FACC, [facility] Interventional Cardiology Pager Email: [email or web address] H&P reviewed. The patient was examined and there are no changes to the H&P. Normal [facility] Victorina 08-28-2022 BERNICE Spoke with patient s on Corey on phone updating on the poc and pt needing to have a cardiac cath performed today.Son expresses full understanding of the reason for procedure; RN provided son with RN contact number for any additional questions family may have. Normal [facility] TROPONIN Ion 08-28-2022 Troponin I.cardiac [Mass/Vol] 0.08 ng/mL High 0.00-0.04 [facility] Comment on above: Order Comment: Add t o AM labs please Performed By: #### L [id number] ####[facility] ([facility])[address] [place] [address] HPon 08-27-2022 HP H&P reviewed. The fidelia jimenez was examined and there are no changes to the H&P. The patient is a 86 y.o. male with complex prior medical history including Paroxysmal atrial fibrillation, who needs long-term anticoagulation therapy to reduce the risk of stroke given elevated [id number]-MSLb score of 5 due to age, hypertension, [...] surgery. he would like to proceed. Normal [facility] NURSNOTEon 08-27-[address] Danielle, Maritza Larkin VP CUSTOMER DEVELOPMENT at bedside assessing pt, echo being performed at bedside. Normal [facility] NURSNOTE Beside swallow compl eted. Pt successfully passed Normal [facility] TROPONIN Ion 08-27-2022 Troponin I.cardiac [Mass/Vol] 0.25 ng/mL Critically high 0.00-0.04 [facility] Comment on above: Performed By: #### L [id number] ####[facility] ([facility])[address] [place] [address] TYPE AND SCREENon 08-27-[address] [facility] Comment on above: Performed By: #### L [id number] ####[facility], ABO group Nom (Bld) A Normal [facility] Comment on above: Performed By: #### L [id number] ####[facility], RH TYPE IN BLOOD Negative Normal [facility] Comment on above: Performed By: #### L [id number] ####[facility], BASIC METABOLIC PANELon 08-07 Anion gap [Moles/Vol] 11 mmol/L Normal 7-20 [facility] Comment on above: Performed By: #### L [id number] ####[facility] ([facility])[address] [place] [address] Calcium [Mass/Vol] 8.9 mg/dL Normal 8.6-10.3 [facility] Comment on above: Performed By: #### L [id number] ####[facility] ([facility] [place] [address] Chloride [Moles/Vol] 99 mmol/L Normal 98-107 [facility] Comment on above: Performed By: #### L [id number] ####[facility] ([facility])[address] [place] [address] CO2 [Moles/Vol] 32 mmol/L High 21-31 [facility] Comment on above: Performed By: #### L [id number] ####[facility] ([facility])[address] [place] [address] Creatinine [Mass/Vol] 1.12 mg/dL Normal 0.70-1.30 [facility] Comment on above: Performed By: #### L [id number] ####[facility] ([facility])[address] [place] [address] GLOMERULAR FILTRATION RATE ML/MIN/1.73 SQ M.PREDICTED 59.6 mL/min/1.73m*2 Low >60.0 [facility] Comment on above: Result Comment: [facility]???s estimated glomerular filtration rate (eGFR) will [...] individuals. Performed By: #### L [id number] ####[facility] ([facility] [place] [address] Glucose [Mass/Vol] 153 mg/dL High 70-100 [facility] Comment on above: Performed By: #### L [id number] ####[facility] (BE[facility]ER)[address] [place] [address] Potassium [Moles/Vol] 3.3 mmol/L Low 3.5-5.1 [facility] Comment on above: Performed By: #### L [id number] ####[facility] ([facility])[address] [place] [address] Sodium [Moles/Vol] 139 mmol/L Normal 136-145 [facility] Comment on above: Performed By: #### L [id number] ####[facility] ([facility]ER)[address] [place] [address] Urea nitrogen [Mass/Vol] 21 mg/dL Normal 7-25 [facility] Comment on above: Performed By: #### L [id number] ####[facility] ([facility] [place] [address] UREA NITROGEN/CREATININE (MASS RATIO) IN SER/PLAS 18.[address] [facility] Comment on above: Performed By: #### L [id number] ####[facility] ([facility]ER)[address] [place] [address] CBCon 08-20-2022 Erythrocyte distribution width (RBC) [Ratio] 15.0 % Normal 11.5-15.0 [facility] Comment on above: Performed By: #### L [id number] ####[facility] ([facility] [place] [address] ERYTHROCYTE MEAN CORPUSCULAR HEMOGLOBIN CONCENTRATION (G/DL) BY AUTOMATED 34.5 g/dL Normal 32.0-35.0 [facility] Comment on above: Performed By: #### L [id number] ####[facility] ([facility] [place] [address] Hematocrit (Bld) [Volume fraction] 44.7 % Normal 39.0-55.0 [facility] Comment on above: Performed By: #### L [id number] ####[facility] ([facility]ER)[address] [place] [address] Hemoglobin (Bld) [Mass/Vol] 15.4 g/dL Normal 13.0-17.0 [facility] Comment on above: Performed By: #### L [id number] ####[facility] ([facility])[address] [place] [address] MCH (RBC) [Entitic mass] 30.2 pg Normal 27.0-33.0 [facility] Comment on above: Performed By: #### L [id number] ####[facility] ([facility])[address] [place] [address] MCV (RBC) [Entitic vol] 87.6 fL Normal 82.0-98.0 [facility] Comment on above: Performed By: #### L [id number] ####[facility] ([facility])[address] [place] [address] PLATELETS (10*3/UL) IN BLOOD AUTOMATED COUNT 108 10*3/uL Low 150-400 [facility] Comment on above: Performed By: #### L [id number] ####[facility] ([facility])[address] [place] [address] RBC (Bld) [#/Vol] 5.10 10*6/uL Normal 4.20-5.70 [facility] Comment on above: Performed By: #### L [id number] ####[facility] ([facility])[address] [place] [address] WBC (Bld) [#/Vol] 4.18 10*3/uL Normal 4.00-10.60 [facility] Comment on above: Performed By: #### L [id number] ####[facility] ([facility])[address] [place] [address] HPon 08-20-2022 HP H&P reviewed. The pa tient was examined and there are no changes to the H&P. Normal [facility] MRSA/MSSA DNA NASALon 2022 MRSA DNA Negative Normal Negative, Invalid [facility] Comment on above: Performed By: #### L [id number] ####[facility] ([facility])[address] [place] [address] MSSA DNA Positive Abnormal Negative, Invalid [facility] Comment on above: Performed By: #### L [id number] ####[facility] ([facility])[address] [facility] [address] TYPE AND SCREENon 08-20-[address] AB [address] Negative Normal [facility] Comment on above: Performed By: #### L [id number] ####[facility], ABO group Nom (Bld) A Normal [facility] Comment on above: Performed By: #### L [id number] ####[facility], RH TYPE IN BLOOD Negative Normal [facility] Comment on above: Performed By: #### L [id number] ####[facility], Orders Onlyon 08-16-2022 Orders Only [id number] Ben Guadalupe A 1935 M Date Provider Department Center 08/16/2022 166NERISSA ORDONEZ CON[facility]IS Roberto Family History Problem Relation Age of Onset Heart failure Mother Prostate cancer Father Coronary artery disease Brother Prostate cancer Brother Family Status - Relation Status Age at Mother Father Brother Normal [facility] Prep for Procedureon 023 Prep for Procedure [id number] Ben Guadalupe A 1935 M Date Provider Department Center 08/16/2022 [facility] Family History Problem Relation Age of Onset Heart failure Mother Prostate cancer Father Coronary artery disease Brother Prostate cancer Brother Family Status - Relation Status Age at Mother Father Brother Normal [facility] Telephoneon 08-13-2022 Telephone [id number] Ben Guadalupe A 1935 M Date Provider Department Center 08/13/2022 [facility] HeartVAS Family History Problem Relation Age of Onset Heart failure Mother Prostate cancer Father Coronary artery disease Brother Prostate cancer Brother Family Status - Relation Status Age at Mother Father Brother Normal [facility] UroVysion Fish and Urine Cyt o ([facility])on 08-12-2022 UVFISH & UC Diagnosis Info Invalid Interpretation Code [facility] Comment on above: Result Comment: A:Ur ine,Urine:Cystoscopy [...] on: 08/12/2022 08:46:21 Performed By: #### 1 [id number] ####[facility] [address] [place] [address] Consent for Procedure/Surger yon 08-09-2022 Consent for Procedure/Surgery [id number]:127 Normal [facility] IntraOperative Documentson 0 08-09-2022 IntraOperative Documents [id number]:127 Normal [facility] Coding Summary.on 08-07-2022 Coding Summary. CD:[id number] Gh0bWw+P GhlYWQ+TU4TTCSiN79swWEtyV1TP 9aAIW2DASAAXCJZZF5RXZ6wsJC7A NthQ8WwbbFc UqrlgTTtNM91YKv7TZN8dBnlFTbh rX5cxIQiP6b0AyCpDH57qA92FPmm RVJyXtI1CwIgdalpcMXb R5cnZdXphDMyKmd+PHRhYmxlIHdp PHAiIWyiNLRsYkVfgNaaNN3iRr5a ZGVyLWNvbGxhcHNlOiBj j2zkTPExWYqcKO8xpArcA7JapRK0 OKJpe8i2Nj13aSZ+TIRoRWY5yTde ZZwgv706ZmWrx3qbGDE4 dVRyDVmfIOF1X23np3B1GBIhBQFt EDM9fSN7eA6wgPuavhniV9KtbJDw LyW1XHB1kULqcE1wuGko epnjiR3sIqn+W36BWN9JMEGWTX2Q Qjz2I5CjKdcfcDQ+EB80VNGhFI34 aHPqwEQju1nkkQm9TeQc PEIoHRK4xEpdIWnlh2QqHKEsD09v tKVmc7Y6DLUdmAibmOSoIiPmsMM8 qZ5iUCvxpqazi5lujfqu Yquvs8mxfk19wU31S31zMLmgEWQn BKH3QSYnTVBllEaypm2caC8sPg2+ YVjyu6jqi5vyiRn2WtXg GDOhkeWwvPasASE6a0FuZi85A6Vw zJdny4JkGjr4uu73yJNek0G9bWC7 FBcgRFDmdE6nUMimJcC0 ROLzQkZrvP85lIEjTKcjIh0tqHxo oGelZU6nSLAjhhhqDKPrlF8fUEQl jCIqbSgcHX5nORZrqago f219YkLhYPS5VYBztUJaK8JpvA4b HqXyDXCcUTWiB5RdtKTgLTzwX206 ZIehFaK2QTJnmbZnD4Hg YXYjrUfrPwC9d8P7Rq0Yq7Gpfnha KUE0VOkxQVWtFxFsXlAcAgM7X8Wc Adk2YYMjyFglXQ2tS1Jf UNZqxvrnxsxmjXN9OPIjAVXskF00 kQKkOKcxVn1ba3W2e307VVUgXLEh dU53Bt8esAnbLEErxOCF aX2yhkzwk3mkliefFdRnXBYvJVz8 KFb2PXMyqBwaEnOfJZG1CjJ8PXZ2 kRNolG3xcOlfcftcaD7k Oyc+G18wsD7dIUH8WPY0kubgTLWc wrFaVM61ZW82N2NmRhispFUoqMF+ MFLcseWfkWsaLY1yXbQs o1ppv4VwJLvsH5MxXBTpSDqbIod3 BPYbIYE2eQJ1dV6iHGTgRSetz1K1 pCC2I8VdliPrgn4ez4ky PDRuLPsaV21psVLrq9C6TGJdoMG5 RSLwhCnwAgCssF84Zqi+PGNvbGdy n6TtDxzje5rfd3vclTa8 FgTkMLMbxxJwmJwcASP1j3HuQt67 L13zVEsfCNEnJJVdTDJpKUUemYej hk2ouC1hZg5+PGNvbCB3 nCA8rF8hKIIoCvS7EWigU939VpZr gGZqMhvwf1pwr5ztlSg7EnCqSJEg hmSeoTkuKNU6n7QfEd69 E43vFWvyBIMbZVPdVPGwZCSalGyz ff8zyI8lMe3+BC1sb7zeze92gH16 dHI+VOFuFTQ7yPxlMUiw QUGkkL6dKKxqGoK1CTOaUbPdsG63 eJCeSDxoAh7liMkpnKtnSQ6wQOBm mdsmu895MzTgs9qsUEEu nCKyHGhhZIE4D56vq1U9FBEuNWOk QNO0dTK7eD7prFbwdojzdBLojWvn gjTohIlhEIwpAXupD683 IHRvcDsnPlBhdGllbnQgTmFtZTo8 S1YiVlr7CBPidGebRW4qgTVpKHtt An4ykUbhiTfpTU9cBMMx podvf013QaKpr3ckGFOsvRSeSExv YTP8P40vv4X2WQPuYFToCOH3kHQ1 eQ4nmJczdswxrQPjjGzi reXcsXpyKSbmBDpnP837STYcuQcl FnTcrdIjEQXijJJ4TX72BY84qPDz z0P3rUF5Y4DyNMGtvczu cmkexIE0PINtBJXajJ50Ve5gsYqw Fx5oJGGkTMK8MFYpcZHfQ7RoaK2i ByFjXANxLRYlK7IwlJXe GLdgJ146VYwiOcB3CUSmtlGiJ6Mz XRQgnQooIhG0l1G1Bq6HH8R8MA61 GH74iTBmj5R8zJZ5O5It PERkenvzqcoiqOL7PCHqQORqeL84 Qy6jiXnmRn9cIRAwDVF9BXTqrLKg X5ChsA9cAkZiNNQuKEDs R1DaoCDvJPzqE977TAreQbF8LKZc jcPnV2QoXVBqlUavDwX6q8B1Fi7S TUj3SY72TC75xDNyi8S2 rNG8T5MjFOKendvzthwlmHO8QJBb XOYvlH67Fk0iiCphCc4cENRaUQP5 RYHxwXBuJ3WjoZ0rNkKs ZTWiHBRuW9RohAWsSLsnP582VYvr VfM3NWPwqiCvG3EmROCovOqyAfP5 s0B2Wu8VBOJkIM16VEX1 rON3HL25TN06Q9HeNwimnJXqtXY+ PHRhYmxlIHdpZHRoPScxMDAlJyBz rVwtAY6mCb9sFDFmMKAj bYwwaZBdIqRoh7cyFVXbRMrmLK7v xXehP3YgmSV1UOKjq4x4Ax60H12w C3XnpAM+ZPIefKN6sEB0 mF6iOgGiVvJ1LDzqO314EhFwoXLv Veyoe3snn8wqpOg2DhN3PACmcxJt lAhxJNK9g0HqAp26M47y YBkwZLJiDNWcPAMwPDSmwJaojw5m mZ7nWd7+EMHhnCW0bFG4bY2kElMz NtI6NXhmP276BwTxcLTt Jqxao3mkb2hrqJm4QcFtAWEbuhNi vSolNHY1v4ZhBb37A8ZidPwca4Rm Yiw4fh43oBIag5F5hKN1 Y0GlQMJtfmswcNUlwOabLJ1jLZVu bdsoFAUryQ8dMAGmO2d0ZtRyBoH0 FFmeP1MxcfJ2AWUgeJNx UAssOIB8T76qc7W2UNFtBDObMMJ7 bPQ8wX5tkMtqkbeypIYgjKgunsAj gUkaCKdjEVnrD762ZAUv sDamTPMsdE2iEIPusTYdyHcyBE4g ADEwtzllDi8RSDlSHeojTZHZIEK5 I8EmYjs5BBLkmGsuXR4g gXDyUWesOb7duEeqfRnvGG5lYJTk qphdCHTpmL0nIJPbgTZlrXnpFO1a PZKzdgnyk017EcXhXWB2 VWOwqKAlV0NyyT5hFjJuMDClOLIs H4EepSQzRVjdI525RJobYpY0FVDp vgEbD3HjGMUyyXvdTnM8 s8T4Dg1bBh7xFq4jQLD3DW40AT82 uDIaf0Q1dMQ8S6ToIGGtjvpwqxko kXM6FNAtYHWgoP23xHOf MUleGi2la8D4a817DRYkBFGlwQ04 Bb6jhPpcPSPlyVVCcP5zaierb7kd uuwyZyTaYJWhIXs4BXy1 DHUfdEkvUpCzRTL0SkQ6LQW4xCSo uB3hpXfiwaqjoT8zFix+ODUgWWVh pfA0M0KeWmj4OUCaxWfa WK1mhRXpYHsrUx1mvGjvqXahCE3c SNXpvycdGERckW2wXUElbGBwaRdg HR5xQHJxevuvh972EnPu JAE2XUMexCCtZ0FxaK5qCsObOGBl DXDbW7XpwSAsIZzdD090FAfiWgQ1 IHKefwHqZ8BgKNOmwYwz ZpI3a7C5Ja1NEFaxPF24WC94dTLb e7E7vIK6D5IyUFKbzsplkvxmoUD5 ZSHdDQZuzN22nLVeTPot Sm2qh1Q4x916KINhQAEowF06Yn5m fBmoFUKbnJNWmH6ghpolj1ayjmje KfBuJERxPBl8WXj6MRBh wOdmZsYbNJD6BqO7LDJ8yMMtxN7r nPrtcujfaR0lRgy+L6C0nEJ6sSYc dDwvdGQ+LP56qb95R2Si IhmoPad3YIJoJAB5yVW6qF5gNFCd ISabz9R9eGT0O8UrtyVigq0jv2ov SAZkYBcqS86owGMzh9O2 REVobPL6OJNvyCkhSmXfuW91Mgn+ UFOrlYkse6MdQfmov8iny2vziZt2 IjMwJSIgdmFsaWduPSJ0 n0CvKf89J17yNHapOSSbUHCeIJHh QOLqjCxlnh6zwY5kUc7+PGNvbCB3 eOY4rT0aYjMjQmI6DVys Y034CrAtsZDiWnngm6khf9knxMf4 YtJuZIQlygKdkHweVJG6h3ZzXk91 K9JqpNsvk9RuJhu8mp09 tJYno9A4xIK4B5IbMOEnxlacnEFx vDwsRB6kUWWzducjYJHsxL8jCXHg E5x4DsUrJqF0EDajI0Hm stE8LFVdgBYbVMPifDLLqS9hafvt a2ozhjikOdKtIPZbDBa4KUt8LEVz jJiuHvMjYVV9CeG0SUU9 fXFbsE6lkLkcjyrvsM7dZpk+UGh5 m6kwkGOgLC3vsBZ3HM37BR21oGUa e4Z2pZL8P4HxBJShcyhd hhpiiOD1UQFwOFWtoK99Kc9ilEwu Aj0qOZNlMQD1TQOxpPZuR0HyiT7w ZiKlTHAfMMFnZ7JczRDh PKqjA124GWqqUkI4CPLjseAvG6Rk LRDjcKhlDaR7o6Y8De6DYM83XL69 CI26cXZjy2P3tNN2E1Gz MBXssuucfhxeaNF9ZATwAKGqzO50 Fd1kgWtqBn6rWPCiYTD3WGSviZPb E1KlaB6aAhUqAIBrKXPn V4PvpUAeJDliL881YTvsZwZ0EYWy jmJwR3FbCSJoxTtuDeD5l7A0Mw7W Eg91SK64XU80xOPsj0X5 vSN4W6VpIFCdjbnrypflfGM1SZAm TNBzfK75Od8hdTahQt1dWTHdVUD5 MNUeuKFyH7FsbO1aEnXj NFReSXCcP6FphFAtCMoqC378QRom LfD4BUPexlIrI9FsIYHptQpkIxZ5 h2U6Ws2GPJxneio8U3Gk PjwvdHI+UQ15HLKcSV43qCTdzPAn v4ftyJo5OwSnRAMvXXG5bGcuVAvw r9GkRKDuI28pgTWkr7Z3 IGNv (more content not included)... [facility] Consent for Procedure/Surger yon 08-06-2022 Consent for Procedure/Surgery [id number]#[id number]:127 [facility] Consent for Treatmenton 07-09 Consent for Treatment [id number]#1.00CD:127 [facility] Main OR Intraoperative Recor don 08-06-2022 Main OR Intraoperative Record IntraOp Document Type FTURO Summary Primary Physician: Mekhi VERGARA MD Finalized Date/Time: 08/06/22 11:35:00 Pt. Name: BEN GUADALUPE/Sex: 1935 Male Med Rec #: [id number] Physician: Mekhi VERGARA MD Financial #: [id number] Pt. Type: O Room/Bed: / Admit/Disch: 08/06/22 10:31:40 - Institution: Case Times FTURO Entry 1 Patient Times In Room 08/06/22 11:20:00 Out Room 08/06/22 11:33:00 Procedure Times Start 08/06/22 11:22:00 Stop 08/06/22 11:28:00 Anesthesia Times Last Modified By: Aicha Garrido RN 08/06/22 11:34:44 Case Attendance FTURO Entry 1 Entry 2 Entry 3 Case Attendee Mekhi VERGARA MD HOSPICE CLINICAL MARKETER, Aicha Garrido RN, Aicha Rivas Role Performed Surgeon - Primary Scrub - Primary Compensation Specialist - Primary Time In 08/06/22 11:20:00 08/06/22 [...] URSULA WORKMAN, Mekhi Oh, Verified (If Participants iAcha Roberts CST Applicable) Hema Mcallister RN, Kimberly [...] By: Aicha Garrido RN 08/06/22 11:35 Normal [facility] Main OR Preoperative Recordo n 08-06-2022 Main OR Preoperative Record Holding Area Document Type FTURO Summary Primary Physician: Mekhi VERGARA MD Finalized Date/Time: 08/06/22 10:59:58 Pt. Name: COLLINS BEN Green/Sex: 1935 Male Med Rec #: [id number] Physician: Mekhi VERGARA MD Financial #: [id number] Pt. Type: O Room/Bed: / Admit/Disch: 08/06/22 [...] No Pain Comment: na Skin Integrity Intact, [place], Warm, & Dry Vitals - EU Blood Pressure Pulse Respirations SPO2 Blood Pressure 128/71 Pulse 75 Respirations 18 SPO2 95 Last Modified By: Araceli Kan LPN 08/06/22 10:58:38 General Comments: temp:36.2 Finalized By: Araceli Kan LPN Document Signatures Signed By: Araceli Kan LPN 08/06/22 10:58 Araceli Kan LPN 08/06/22 10:59 Normal [facility] Operative Reporton Operative Report Patient: BEN GUADALUPE [...] with antibiotic coverage, Follow up arranged. Normal [facility] Comment on above: Result Comment: Elec tronically Signed By: Mekhi VERGARA MD\.br\Date and Time Signed: 08/06/22 11:35 EST [facility] Fish and Urine Cyt o ([facility])on 08-06-2022 [facility] Method of Extraction Cystoscopy Normal [facility] Comment on above: Performed By: #### 1 [id number] ####[facility] [address] [place] [address] [facility] Number of Jars 1 Invalid Interpretation Code [facility] Comment on above: Performed By: #### 1 [id number] ####[facility] [address] [place] [address] [facility] Specimen Cystoscopy Normal [facility] Comment on above: Performed By: #### 1 [id number] ####[facility] [address] [place] [address] [facility] Type of Service Technical Only Normal [facility] Comment on above: Performed By: #### 1 [id number] ####[facility] [address] [place] [address] HPon 08-05-2022 [facility] Cardiology - [facility] Subjective Ben Guadalupe is a 86 [...] February 2022 he was admitted to the [facility] with palpitations and chest pain. He [...] vomiting Tizani (more content not included)... Normal [facility] Office Visiton 08-05-2022 Follow-up visit [id number] Ben Guadalupe 1935 [facility] Provider Department Center 08/05/2022 NERISSA TESFAYE CONCHIS John Family History Problem Relation Age of Onset Heart failure Mother Prostate cancer Father Coronary artery disease Brother Prostate cancer Brother Family Status - Relation Status Age at Mother Father Brother Level of Service:20175 [place] OFFICE/OUTPATIENT ESTABLISHED LOW MDM 20-29 MIN Reason for Visit and Comments: Atrial Fibrillation [80] - Discuss Watchman Coronary Artery Disease [187] Hypertension [075243] Normal [facility] POINT OF CARE GLUCOSEon -0 Glucose [Mass/Vol] 203 mg/dL Critically high 74-106 [facility] Comment on above: Performed By: #### U A #### [facility] [address] [place] [address] Dr. Mason Astudillo Office Visiton 06-24-2022 Follow-up visit [id number] Ben Guadalupe 1935 Date Provider Department Center 06/24/2022 1596-MARITZA KIRKLAND CONCHIS [facility] Family History Problem Relation Age of Onset Heart failure Mother Prostate cancer Father Coronary artery disease Brother Prostate cancer Brother Family Status - Relation Status Age at Mother Father Brother Level of Service:55949 [place] OFFICE/OUTPATIENT ESTABLISHED SF MDM 10-19 MIN Reason for Visit and Comments: Atrial Fibrillation [80] Coronary Artery Disease [187] Hypertension [485554] Normal [facility] Follow-Upon 05-27-2022 Follow-Up [id number] Ben Guadalupe 1935 M Date Provider Department Center 05/27/2022 [facility]AVITA [facility] Family History Problem Relation Age of Onset Heart failure Mother Prostate cancer Father Coronary artery disease Brother Prostate cancer Brother Family Status - Relation Status Age at Mother Father Brother Level of Service:76043 [place] OFFICE/OUTPATIENT ESTABLISHED MOD MDM 30-39 MIN Reason for Visit and Comments: Coronary Artery Disease [187] Hypertension [872696] Hyperlipidemia [182] LVH [Other] Normal [facility] ANES POSTPROC EVALon 022 ANES POSTPROC EVAL HNO ID: [id number] Author: Kandice Guadalupe MD Service: ? Author Type: Physician Type: Anesthesia Postprocedure Evaluation Filed: 05/17/2022 2:13 PM Note Text: POST ANESTHESIA EVALUATION NOTE : 1935 Procedure Summary Date: 05/17/22 Room / Location: [address] [facility] Anesthesia Start: 954 Anesthesia Stop: [...] with this procedure. Documented by Minesh Levy APRN.WORD PROCESSOR TECHNICIAN 05/17/2022 12:02 PM EST SIGNATURE: Kandice Guadalupe MD PATIENT NAME: Ben Guadalupe DATE: May 17, 2022 TIME: 2:13 PM CSN: [id number] Normal [facility] ANES PRE-OPon 05-17-2022 ANES PRE-OP HNO ID: [id number] Author: Kandice Guadalupe MD Service: ? Author [...] and consent discussed: yes. Patient / Responsible Alliance Party agrees to proceed: yes Patient / [...] mcg/actuation na (more content not included)... Normal [facility] BRIEF OP NOTon 05-17-2022 BRIEF OP NOT HNO ID: [id number] Author: Tristin Wilcox MD, PhD Service: Colorectal Author Type: Physician Type: Brief Op Note Filed: 05/17/2022 11:34 AM Note Text: BRIEF OPERATIVE NOTE - COLORECTAL SURGERY Log ID: [id number] Surgery/Procedure Date: 05/17/2022 Incision/Procedure Start Time: 10:17 AM Incision Close/Procedure End Time: 11:27 AM Surgeon(s) and Art History Professor(s): Surgeon(s) and Role: * Tristin Wilcox MD, [...] May 17, 2022 TIME: 11:30 AM Normal [facility] Gas and Carbon monoxide pane l (BldV)on 05-17-2022 BASE DEFICIT, VENOUS -2 mmol/L Normal -2-0 [facility] Comment on above: Order Comment: Speci men Type: VENOUS BLOOD SPECIMENOrdering Facility: [facility] Address: [address] [place] [id number] Performed By: #### 2 4344-4 ####[facility] [id number] [place] [address] [place] Body temperature 97.52 [degF] Normal [facility] Comment on above: Order Comment: Speci men Type: VENOUS BLOOD SPECIMENOrdering Facility: [facility] Address: [address] [address] Performed By: #### 2 4344-4 ####[facility] [id number] [place] [address] [place] Calcium.ionized (Bld) [Mass/Vol] 1.17 mmol/L Normal 1.08-1.30 [facility] Comment on above: Order Comment: Speci men Type: VENOUS BLOOD SPECIMENOrdering Facility: [facility] Address: [address] [address] Performed By: #### 2 4344-4 ####[facility] [id number] [place] [address] [place] Calcium.ionized adjusted to pH 7.4 (BldA) [Moles/Vol] 1.17 mmol/L Normal 1.08-1.30 [facility] Comment on above: Order Comment: Speci men Type: VENOUS BLOOD SPECIMENOrdering Facility: [facility] Address: [address] [address] Performed By: #### 2 4344-4 ####[facility] [id number] [place] [address] [place] Carboxyhemoglobin (BldV) [Mass fraction] 1.4 % Normal 0.0-2.0 [facility] Comment on above: Order Comment: Speci men Type: VENOUS BLOOD SPECIMENOrdering Facility: [facility] Address: [address] Result Comment: Carb oxyhemoglobin Reference Range for Smokers: 2.0-8.0% Performed By: #### 2 4344-4 ####[facility] [id number] [place] [address] [place] CO2 (BldV) [Partial pressure] 37 mm[Hg] Low 42-55 [facility] Comment on above: Order Comment: Speci men Type: VENOUS BLOOD SPECIMENOrdering Facility: [facility] Address: [address] [place] [address] Performed By: #### 2 4344-4 ####[facility] [id number] [place] [address] [place] CO2 [Moles/Vol] 23 mmol/L Low 25-29 [facility] Comment on above: Order Comment: Speci men Type: VENOUS BLOOD SPECIMENOrdering Facility: [facility] Address: [address] [place] [address] Performed By: #### 2 4344-4 ####[facility] [id number] [place] [address] [place] CO2 adjusted to patient's actual temperature (BldV) [Partial pressure] 35 mmHg Low 42-55 [facility] Comment on above: Order Comment: Speci men Type: VENOUS BLOOD SPECIMENOrdering Facility: [facility] Address: [address] [place], [place] [id number] Performed By: #### 2 4344-4 ####[facility] [id number] [place] [address] [place] Glucose [Mass/Vol] 198 mg/dL High 60-105 [facility] Comment on above: Order Comment: Speci men Type: VENOUS BLOOD SPECIMENOrdering Facility: [facility] Address: [address] [place], [place] [id number] Performed By: #### 2 4344-4 ####[facility] [id number] [place] [address] [place] HCO3 (Bld) [Moles/Vol] 22 mmol/L Low 24-28 [facility] Comment on above: Order Comment: Speci men Type: VENOUS BLOOD SPECIMENOrdering Facility: [facility] Address: [address] [address] Performed By: #### 2 4344-4 ####[facility] LABIA [id number] [place] [address] [place] Hematocrit (Bld) [Volume fraction] 36.4 % Low 39.0-51.0 [facility] Comment on above: Order Comment: Speci men Type: VENOUS BLOOD SPECIMENOrdering Facility: [facility] Address: [address] [address] Performed By: #### 2 4344-4 ####[facility]IA [id number] [place] [address] [place] Hemoglobin (Bld) [Mass/Vol] 11.8 g/dL Low 13.0-17.0 [facility] Comment on above: Order Comment: Speci men Type: VENOUS BLOOD SPECIMENOrdering Facility: [facility] Address: [address] [address] Performed By: #### 2 4344-4 ####[facility]IA [id number] [place] [address] [place] Lactate [Moles/Vol] 1.9 mmol/L Normal 0.5-2.2 [facility] Comment on above: Order Comment: Speci men Type: VENOUS BLOOD SPECIMENOrdering Facility: [facility] Address: [address] Performed By: #### 2 4344-4 ####[facility]IA [id number] [place] [address] [place] Methemoglobin (Bld) [Mass fraction] 1.1 % Normal 0.0-1.5 [facility] Comment on above: Order Comment: Speci men Type: VENOUS BLOOD SPECIMENOrdering Facility: [facility] Address: [address] Performed By: #### 2 4344-4 ####[facility] LABCLIA [id number] [address] [place] O2 THERAPY RA=Room Air Normal [facility] Comment on above: Order Comment: Speci men Type: VENOUS BLOOD SPECIMENOrdering Facility: [facility] Address: [address] Performed By: #### 2 4344-4 ####[facility] LABCLIA [id number] [place] [address] [place] Oxygen (BldV) [Partial pressure] 50 mm[Hg] High 35-45 [facility] Comment on above: Order Comment: Speci men Type: VENOUS BLOOD SPECIMENOrdering Facility: [facility] Address: [address] [place], [place] [address] Performed By: #### 2 4344-4 ####[facility] LABCLIA [id number] [address] [place] Oxygen adjusted to patient's actual temperature (BldV) [Partial pressure] 48 mmHg High 35-45 [facility] Comment on above: Order Comment: Speci men Type: VENOUS BLOOD SPECIMENOrdering Facility: [facility] Address: [address] [place] [address] Performed By: #### 2 4344-4 ####[facility] LABCLIA [id number] [address] [place] Oxygen saturation in Venous blood 82 % Normal 60-85 [facility] Comment on above: Order Comment: Speci men Type: VENOUS BLOOD SPECIMENOrdering Facility: [facility] Address: [address] [place] [address] Performed By: #### 2 4344-4 ####[facility] LABCLIA [id number] [place] [address] [place] Oxyhemoglobin (BldV) [Mass fraction] 80 % Normal 60-85 [facility] Comment on above: Order Comment: Speci men Type: VENOUS BLOOD SPECIMENOrdering Facility: [facility] Address: [address] Performed By: #### 2 4344-4 ####[facility] [id number] [place] [address] [place] pH (BldV) 7.39 [pH] Normal 7.32-7.42 [facility] Comment on above: Order Comment: Speci men Type: VENOUS BLOOD SPECIMENOrdering Facility: [facility] Address: [address] Performed By: #### 2 4344-4 ####[facility]IA [id number] [place] [address] [place] pH adjusted to patient's actual temperature (BldV) 7.40 Normal 7.32-7.42 [facility] Comment on above: Order Comment: Speci men Type: VENOUS BLOOD SPECIMENOrdering Facility: [facility] Address: [address] Performed By: #### 2 4344-4 ####[facility] [id number] [place] [address] [place] Potassium [Moles/Vol] 2.9 mmol/L Low 3.5-5.0 [facility] Comment on above: Order Comment: Speci men Type: VENOUS BLOOD SPECIMENOrdering Facility: [facility] Address: [address] Performed By: #### 2 4344-4 ####[facility]IA [id number] [place] [address] [place] Sodium [Moles/Vol] 137 mmol/L Normal 136-144 [facility] Comment on above: Order Comment: Speci men Type: VENOUS BLOOD SPECIMENOrdering Facility: [facility] Address: [address] Performed By: #### 2 4344-4 ####[facility] LABCLROXANA [id number] GOLDIE CASE[id number] [address] [place] OPERATIVE NOon 05-17-2022 OPERATIVE NO HNO ID: [id number] Author: Tristin Wilcox MD, PhD Service: Colorectal Author Type: Physician Type: Operative Report Filed: 05/31/2022 2:52 PM Note Text: OPERATIVE REPORT LOG ID: [id number] SURGERY DATE: 05/17/2022 INCISION/PROCEDURE START TIME: 10:17 AM INCISION CLOSE/PROCEDURE END TIME: 11:27 AM PREOPERATIVE DIAGNOSIS: Prolapsing, symptomatic, large internal and external hemorrhoids. Colonic polyps. POSTOPERATIVE DIAGNOSIS: Grade 4; Prolapsing, symptomatic, large internal and external hemorrhoids. Colonic polyps. Surgeon(s)/Proceduralist(s) and Art History Professor(s): Surgeon(s) and Role: * Tristin Wilcox MD, [...] POLYP Tissue RECTAL POLYP SURGICAL PATHOLOGY Tristin Wilcxo MD, PhD 05/17/2022 10:34 AM D : left lateral Tissue HEMORRHOID SURGICAL PATHOLOGY Tristin Wilcox MD, PhD 05/17/2022 10:56 AM E : right posterior Tissue HEMORRHOID SURGICAL PATHOLOGY Tristin Wilcox MD, PhD 05/17/2022 11:13 AM IMPLANTED DEVICES: NONE DRAINS: None COMPLICATIONS: None PARTICIPATION IN SURGERY PROCEDURE: I/primary surgeon/proceduralist performed the procedure with assistance. PATIENT NAME: Ben Guadalupe Normal [facility] POTASSIUM BLDon 05-17-2022 Potassium [Moles/Vol] 3.0 mmol/L Low 3.7-5.1 [facility] Comment on above: Order Comment: Speci men Type: BLOOD SPECIMENOrdering Facility: [facility] Address: [address] [place] [address] Performed By: #### K 1 ####[facility] LABCLIA [id number] [address] SURGICAL PATHOLOGYon 022 CASE REPORT Normal [facility] Comment on above: Order Comment: Speci men Type: TISSUE SPECIMENOrdering Facility: [facility] Address: [address] [place] [address] Result Comment: Surg ical Pathology Report Case: [id number] Authorizing Provider: Tristin Wilcox, Collected: 05/17/2022 10:25 AM , PhD Ordering Location: Admitting Received: 05/17/2022 01:44 PM Pathologist: Daryn June MD Specimens: A) - COLON POLYP, RIGHT COLON POLYP B) - COLON POLYP, LEFT COLON POLYP C) - RECTAL POLYP D) - HEMORRHOID, left lateral E) - HEMORRHOID, right posterior Performed By: #### S ####[facility] LABCLIA [id number] [place] [address] [place] [facility] [id number] [address] OF [facility] CLINICAL HISTORY Normal [facility] Comment on above: Order Comment: Speci men Type: TISSUE SPECIMENOrdering Facility: [facility] Address: [address] [address] Result Comment: Pre- op diagnosis: Fourth degree hemorrhoids [K64.3] Performed By: #### S ####[facility] LABCLIA [id number] [address] LABCLIA [id number] [address] FINAL DIAGNOSIS Normal [facility] Comment on above: Order Comment: Speci men Type: TISSUE SPECIMENOrdering Facility: [facility] Address: [address] [address] Result Comment: A. C olon, right, polyp, biopsy: - Tubular adenoma. B. Colon, left, polyp, biopsy: - Tubular adenoma. C. Rectum, polyp, biopsy: - Tubular adenoma. D. Anus, left lateral, hemorrhoid, excision: - Fibroepithelial polyp. E. Anus, right posterior, hemorrhoid, excision: - Dilated hemorrhoidal varices. Performed By: #### S ####[facility] LABCLIA [id number] [address] LABCLIA [id number] [address] FINAL PERFORMING LAB Normal [facility] Comment on above: Order Comment: Speci men Type: TISSUE SPECIMENOrdering Facility: [facility] Address: [address] [address] Result Comment: Diag nostic interpretation performed at [facility], [address] [place] [address] CLIA# [id number] [place] Burnisher: Nga Schultz M.D. Performed By: #### S ####[facility] LABCLIA [id number] [address] LABCLIA [id number] [facility] [id number] [id number] [place] GROSS DESCRIPTION A. COLON POLYP Normal [facility] Comment on above: Order Comment: Speci men Type: TISSUE SPECIMENOrdering Facility: [facility] Address: [address] [place] [address] Result Comment: Rece ived in formalin is [...] 0.1 cm. Totally submitted in one cassette. [facility] May 17, 2022 3:41 PM Gross examination performed at [facility], [address] [facility] [place] [address] D. HEMORRHOID Received fresh designated left lateral is a cason-busby portion of skin that measures 4.5 x 1.5 x 1 cm. Sectioning through the specimen reveals hemorrhagic cut surfaces. Six Pack Loader Operator sections are submitted in 1 cassette. WE May 17, 2022 3:17 PM Gross examination performed at [facility], [facility] [place] [address] E. HEMORRHOID Received fresh designated right posterior is a pink-cason portion of skin that measures 3.9 x 0.6 x 0.6 cm. Sectioning through the specimen reveals hemorrhagic cut surfaces. Six Pack Loader Operator sections are submitted in 1 cassette. WE May 17, 2022 3:19 PM Gross examination performed at [facility], [facility] [facility] [place] [place] [address] Performed By: #### S ####[facility] LABCLIA [id number] [place] [id number] [place] [facility] LABCLIA [id number] [address] [place] 05-16-2022 CNPN Telephone (CORSMN) BEN GUADALUPE ([id number]) 1935 M Date Time Provider Department 05/16/22 [...] Encounter Status:Closed by DELICIA FULLER on 05/16/22 [facility] Telephone (KADIE) BEN GUADALUPE ([id number]) 1935 M Date Time Provider Department 05/16/22 [...] PA-C - Fully Assessed 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 for Visit: 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 [3602] Prescriptions as of 05/16/2022 [...] by MARIA LUISA GARCIA on 05/16/22 Normal [facility] CBC panel Auto (Bld)on 05-10 Erythrocyte distribution width (RBC) [Ratio] 14.1 % Normal 11.5-15.0 [facility] Comment on above: Order Comment: Speci men Type: BLOOD SPECIMENOrdering Facility: [facility] Address: [address] [place] [address] Performed By: #### 5 8410-2 ####[facility] LABIA [id number] [address] [place] Hematocrit (Bld) [Volume fraction] 38.9 % Low 39.0-51.0 [facility] Comment on above: Order Comment: Speci men Type: BLOOD SPECIMENOrdering Facility: [facility] Address: [address] [place] [address] Performed By: #### 5 8410-2 ####[facility] LABIA [id number] [place] [address] [place] Hemoglobin (Bld) [Mass/Vol] 12.2 g/dL Low 13.0-17.0 [facility] Comment on above: Order Comment: Speci men Type: BLOOD SPECIMENOrdering Facility: [facility] Address: [address] [place] [address] Performed By: #### 5 8410-2 ####[facility] LABIA [id number] [place] [address] [place] MCH (RBC) [Entitic mass] 28.4 pg Normal 26.0-34.0 [facility] Comment on above: Order Comment: Speci men Type: BLOOD SPECIMENOrdering Facility: [facility] Address: [address] Performed By: #### 5 8410-2 ####[facility] [id number] [address] STATES [facility] MCHC (RBC) [Mass/Vol] 31.4 g/dL Normal 30.5-36.0 [facility] Comment on above: Order Comment: Speci men Type: BLOOD SPECIMENOrdering Facility: [facility] Address: [address] [place], [place] [address] Performed By: #### 5 8410-2 ####[facility] [id number] [place] [address] [place] MCV (RBC) [Entitic vol] 90.5 fL Normal 80.0-100.0 [facility] Comment on above: Order Comment: Speci men Type: BLOOD SPECIMENOrdering Facility: [facility] Address: [address] [place], [place] [address] Performed By: #### 5 8410-2 ####[facility] [id number] [place] [address] [place] Nucleated RBC (Bld) [#/Vol] 10*3/uL Normal <0.01 [facility] Comment on above: Order Comment: Speci men Type: BLOOD SPECIMENOrdering Facility: [facility] Address: [address] [place] [address] Performed By: #### 5 8410-2 ####[facility] [id number] [place] [address] [place] Platelet mean volume (Bld) [Entitic vol] 10.9 fL Normal 9.0-12.7 [facility] Comment on above: Order Comment: Speci men Type: BLOOD SPECIMENOrdering Facility: [facility] Address: [address] [place], [place] [address] Performed By: #### 5 8410-2 ####[facility] LABCLIA [id number] [place] [address] [place] Platelets (Bld) [#/Vol] 135 10*3/uL Low 150-400 [facility] Comment on above: Order Comment: Speci men Type: BLOOD SPECIMENOrdering Facility: [facility] Address: [address] [place] [address] Performed By: #### 5 8410-2 ####[facility] LABCLIA [id number] [place] [address] [place] RBC (Bld) [#/Vol] 4.30 10*6/uL Normal 4.20-6.00 [facility] Comment on above: Order Comment: Speci men Type: BLOOD SPECIMENOrdering Facility: [facility] Address: [address] [place] [address] Performed By: #### 5 8410-2 ####[facility] LABIA [id number] [place] [address] [place] WBC (Bld) [#/Vol] 4.75 10*3/uL Normal 3.70-11.00 [facility] Comment on above: Order Comment: Speci men Type: BLOOD SPECIMENOrdering Facility: [facility] Address: [address] [place] [address] Performed By: #### 5 8410-2 ####[facility] LABIA [id number] [place] [address] [place] CONFIRM BLOOD TYPEon 022 ABO A Normal [facility] Comment on above: Order Comment: Speci men Type: BLOOD SPECIMENOrdering Facility: [facility] Address: [address] [place] [address] Performed By: #### C ONABO ####CC [facility] BLOOD BANKIA [id number] [place] [address] [place] Rh Nom (Bld) Negative Normal [facility] Comment on above: Order Comment: Speci men Type: BLOOD SPECIMENOrdering Facility: [facility] Address: [address] [address] Performed By: #### C ONAB ####[facility] BANKIA [id number] [place] [address] [place] Comprehensive metabolic 2000 panelon 05-10-2022 Albumin [Mass/Vol] 4.4 g/dL Normal 3.9-4.9 [facility] Comment on above: Order Comment: Speci men Type: BLOOD SPECIMENOrdering Facility: [facility] Address: [address] [address] Performed By: #### 2 4323-8 ####[facility] LABCLIA [id number] [place] [address] [place] ALP [Catalytic activity/Vol] 54 U/L Normal 38-113 [facility] Comment on above: Order Comment: Speci men Type: BLOOD SPECIMENOrdering Facility: [facility] Address: [address] Performed By: #### 2 4323-8 ####[facility] LABCLIA [id number] [place] [address] [place] ALT [Catalytic activity/Vol] 55 U/L High 10-54 [facility] Comment on above: Order Comment: Speci men Type: BLOOD SPECIMENOrdering Facility: [facility] Address: [address] Performed By: #### 2 4323-8 ####[facility] LABCLIA [id number] [place] [address] [place] Anion gap [Moles/Vol] 12 mmol/L Normal 9-18 [facility] Comment on above: Order Comment: Speci men Type: BLOOD SPECIMENOrdering Facility: [facility] Address: [address] Performed By: #### 2 4323-8 ####[facility] LABCLIA [id number] [place] [address] [place] AST [Catalytic activity/Vol] 27 U/L Normal 14-40 [facility] Comment on above: Order Comment: Speci men Type: BLOOD SPECIMENOrdering Facility: [facility] Address: [address] [place] [address] Performed By: #### 2 4323-8 ####[facility] LABCLIA [id number] [place] [address] [place] Bilirubin [Mass/Vol] 0.3 mg/dL Normal 0.2-1.3 [facility] Comment on above: Order Comment: Speci men Type: BLOOD SPECIMENOrdering Facility: [facility] Address: [address] [place] [address] Performed By: #### 2 4323-8 ####[facility] LABCLIA [id number] [place] [address] [place] Calcium [Mass/Vol] 9.1 mg/dL Normal 8.5-10.2 [facility] Comment on above: Order Comment: Speci men Type: BLOOD SPECIMENOrdering Facility: [facility] Address: [address] [place] [address] Performed By: #### 2 4323-8 ####[facility] LABCLIA [id number] [place] [address] [place] Chloride [Moles/Vol] 100 mmol/L Normal 97-105 [facility] Comment on above: Order Comment: Speci men Type: BLOOD SPECIMENOrdering Facility: [facility] Address: [address] [place], [place] [address] Performed By: #### 2 4323-8 ####[facility] LABCLIA [id number] [place] [address] [place] CO2 [Moles/Vol] 29 mmol/L Normal 22-30 [facility] Comment on above: Order Comment: Speci men Type: BLOOD SPECIMENOrdering Facility: [facility] Address: [address] [address] Performed By: #### 2 4323-8 ####[facility] LABCLIA [id number] [place] [address] [place] Creatinine [Mass/Vol] 1.09 mg/dL Normal 0.73-1.22 [facility] Comment on above: Order Comment: Speci men Type: BLOOD SPECIMENOrdering Facility: [facility] Address: [address] [address] Performed By: #### 2 4323-8 ####[facility] LABIA [id number] [place] [address] [place] ESTIMATED GLOMERULAR FILTRATION RATE 67 mL/min/1.73m??? Normal >=60 [facility] Comment on above: Order Comment: Speci men Type: BLOOD SPECIMENOrdering Facility: [facility] Address: [address] [place] [address] Result Comment: [place] mated Glomerular Filtration Rate [...] actual GFR. Performed By: #### 2 4323-8 ####[facility] LABCLIA [id number] [place] [address] [place] Glucose [Mass/Vol] 217 mg/dL High 74-99 [facility] Comment on above: Order Comment: Speci men Type: BLOOD SPECIMENOrdering Facility: [facility] Address: [address] [address] Result Comment: The [place] Diabetes Association (ADA) provides guidance for cutoff [...] Standards of Medical Care in Diabetes 2016, [place] Diabetes Association. Diabetes Care. 2016.39(Suppl 1). Performed By: #### 2 4323-8 ####[facility] LABCLIA [id number] [place] [address] [place] Potassium [Moles/Vol] 3.2 mmol/L Low 3.7-5.1 [facility] Comment on above: Order Comment: Speci men Type: BLOOD SPECIMENOrdering Facility: [facility] Address: [address] [place] [address] Performed By: #### 2 4323-8 ####[facility] LABIA [id number] [place] [address] [place] Protein [Mass/Vol] 6.4 g/dL Normal 6.3-8.0 [facility] Comment on above: Order Comment: Theoi suha Type: BLOOD SPECIMENOrdering Facility: [facility] Address: [address] [place] [place] [address] Performed By: #### 2 4323-8 ####[facility] LABIA [id number] [place] [address] [place] Sodium [Moles/Vol] 141 mmol/L Normal 136-144 [facility] Comment on above: Order Comment: Speci men Type: BLOOD SPECIMENOrdering Facility: [facility] Address: [address] [place] [address] Performed By: #### 2 4323-8 ####[facility] LABIA [id number] [place] [address] [place] Urea nitrogen [Mass/Vol] 26 mg/dL High 9-24 [facility] Comment on above: Order Comment: Speci men Type: BLOOD SPECIMENOrdering Facility: [facility] Address: [address] [place] [id number] Performed By: #### 2 4323-8 ####[facility] LABCLIA [id number] DANIELRenee AVENUEDESK [id number] ECG COMPLETEon 05-10-2022 ECG COMPLETE Ventricular Rate : 7 6 BPM Atrial Rate : 76 BPM P-R Interval : 130 ms QRS Duration : 134 ms Q-T Interval : 442 ms QTC Calculation(Bazett) : 497 ms Calculated P [place] : 37 degrees Calculated R [place] : 64 degrees Calculated T [place] : -10 degrees NORMAL SINUS RHYTHM COMPLETE RIGHT BUNDLE BRANCH BLOCK INFERIOR T WAVE ABNORMALITY ABNORMAL ECG Confirmed by YENNI TANNER MD ([id number]) on 05/14/2022 7:11:13 PM NAME : BEN GUADALUPE PID : [id number] : 1935 Gender : Male Race : ORD : [id number] Procedure Date : May 10 2022 11:57:54 Edit Date : May 14 2022 19:11:14 Diagnosis: NORMAL SINUS RHYTHM COMPLETE RIGHT BUNDLE BRANCH BLOCK INFERIOR T WAVE ABNORMALITY ABNORMAL ECG Confirmed by YENNI TANNER MD ([id number]) on 05/14/2022 7:11:13 PM Test Reason : Location : 119 : A17 Overread By : YENNI TANNER MD Edited By : YENNI TANNER MD Referred By : TRISTIN WILCOX Acquired by : CHANELLE FRANKLIN [facility] HISTORY PHYSICALon HISTORY PHYSICAL HNO ID: [id number] Author: Afia Downing PA-C Service: ? Author Type: Physician Art History Professor Type: HANDP Filed: 05/13/2022 10:05 AM Note [...] capsule Take (more content not included)... Normal [facility] HbA1c (Bld)on 05-10-2022 Average glucose Estimated from glycated hemoglobin (Bld) [Mass/Vol] 151 mg/dL Normal [facility] Comment on above: Order Comment: Speci men Type: BLOOD SPECIMENOrdering Facility: [facility] Address: [address] [place] [address] Result Comment: eAG: (Estimated average glucose) is a calculated value from HgbA1c and is business office representative of the average blood glucose level in the last 2-3 month period. Performed By: #### 5 5454-3 ####[facility] LABCLIA [id number] [address] STATES OF [facility] HbA1c (Bld) [Mass fraction] 6.9 % High 4.3-5.6 [facility] Comment on above: Order Comment: Speci men Type: BLOOD SPECIMENOrdering Facility: [facility] Address: [address] [place] [address] Result Comment: [place] Diabetes Association guidelines indicate that patients with HgbA1c in the range 5.7-6.4% are at increased risk for development of diabetes, and intervention by lifestyle modification may be beneficial. HgbA1c greater or equal to 6.5% is considered diagnostic of diabetes. Performed By: #### 5 5454-3 ####[facility] LABCLIA [id number] [address] OF [facility] TYPE AND SCREEN,30 DAYon ABO A Normal [facility] Comment on above: Order Comment: Speci men Type: BLOOD SPECIMENOrdering Facility: [facility] Address: [address] [place] [address] Performed By: #### T SCR30 ####CC [facility] BLOOD BANKCLIA [id number] [place] [address] [place] HISTORICAL AB SCR STATUS Negative Normal [facility] Comment on above: Order Comment: Speci men Type: BLOOD SPECIMENOrdering Facility: [facility] Address: [address] [place] [address] Performed By: #### T SCR30 ####[facility] [facility] BLOOD BANKCLIA [id number] [address] [place] Rh Nom (Bld) Negative Normal [facility] Comment on above: Order Comment: Speci men Type: BLOOD SPECIMENOrdering Facility: [facility] Address: [address] [place], [place] [address] [id number] Performed By: #### T SCR30 ####CC MAIN BLOOD BANKROXANA [id number] DANIELRenee HILLSBOROUGHAUGUSTA [id number] [place] [id number] [facility] [place] 04-25-2022 CNPN Telephone (CORSMN) BEN GUADALUPE ([id number]) 1935 M Date Time Provider Department 04/25/22 [...] Reason for Visit: Returning Patient's Call [408] 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 Normal [facility] Flexible Sigmoidoscopyon Flexible sigmoidoscopy A30 Gastrointestinal Endoscopy Patient Name: Ben Guadalupe Procedure Date: 04/17/2022 1:38 PM Date of [...] previous diet. Procedure Code(s): --- Professional --- 25458, Sigmoidoscopy, flexible; diagnostic, including collection of specimen(s) by brushing or washing, when performed (separate procedure) Diagnosis Code(s): --- Professional --- K64.3, Fourth degree hemorrhoids K62.1, Rectal polyp K92.1, Melena (includes Hematochezia) K57.30, Diverticulosis of large intestine without perforation or abscess without bleeding CPT copyright 2019 [employer]. All rights reserved. The codes documented in this report are preliminary and upon hoisting machine operator review may be revised to meet current compliance requirements. Attending Participation: I personally performed the entire procedure. Scope In: Scope Out: Dr. Tristin Wilcox MD 04/17/2022 2:21:53 PM This report has been signed electronically. Number of Addenda: 0 Note Initiated On: 04/17/2022 1:38 PM Normal [facility] HISTORY PHYSICALon 2 HISTORY PHYSICAL HNO ID: [id number] Author: Tristin Wilcox MD, PhD Service: ? [...] PACC s (more content not included)... Normal [facility] SIGMOIDOSCOPYon 04-17-2022 [facility] POINT OF CARE GLUCOSEon 04-06 Glucose [Mass/Vol] 268 mg/dL Critically high 74-106 T [facility] Comment on above: Performed By: #### P OCGLUC #### [facility] [address] [address] [address] Mason Astudillo CBC AUTO DIFFon 04-11-2022 BASO # 0.0 103/ul Normal 0.0-0.1 [facility] Comment on above: Performed By: #### U A #### [facility] [address] [address] [address] Mason Astudillo Basophils/100 WBC (Bld) 0.4 % Normal 0.2-2.0 [facility] Comment on above: Performed By: #### U A #### [facility] [address] [place] [address] Dr. Mason Astudillo EO # 0.1 103/ul Normal 0.0-0.7 [facility] Comment on above: Performed By: #### U A #### [facility] [address] [place] [address] Dr. Mason Astudillo Eosinophils/100 WBC (Bld) 1.9 % Normal 0.9-7.0 [facility] Comment on above: Performed By: #### U A #### [facility] [address] [place] [address] Dr. Mason Astudillo Erythrocyte distribution width (RBC) [Ratio] 16.0 % Critically high 11.0-15.0 [facility] Comment on above: Performed By: #### U A #### [facility] [address] [place] [address] Dr. Mason Astudillo Hematocrit (Bld) [Volume fraction] 27.4 % Critically low 42.0-54.0 [facility] Comment on above: Performed By: #### U A #### [facility] [address] [place] [address] Dr. Mason Astudillo Hemoglobin (Bld) [Mass/Vol] 8.7 g/dL Critically low 14.0-18.0 [facility] Comment on above: Performed By: #### U A #### [facility] [address] [place] [address] Dr. Mason Astudillo IG # 0.03 10e3/ul Normal 0.00-0.03 [facility] Comment on above: Performed By: #### U A #### [facility] [address] [place] [address] Dr. Mason Astudillo IG % 0.6 % Critically high 0.0-0.5 [facility] Comment on above: Performed By: #### U A #### [facility] [address] [place] [address] Dr. Mason Astudillo LYMPH # 0.7 103/ul Critically low 1.2-3.8 [facility] Comment on above: Performed By: #### U A #### [facility] [address] [place] [address] Dr. Mason Astudillo Lymphocytes/100 WBC (Bld) 15.8 % Critically low 20.5-60.0 [facility] Comment on above: Performed By: #### U A #### [facility] [address] [place] [address] Dr. Mason Astudillo MANUAL DIFF REQ NO Normal [facility] Comment on above: Performed By: #### U A #### [facility] [address] [place] [address] Dr. Mason Astudillo MCH (RBC) [Entitic mass] 29.9 pg Normal 25.9-34.0 [facility] Comment on above: Performed By: #### U A #### [facility] [address] [place] [address] Dr. Mason Astudillo MCHC (RBC) [Mass/Vol] 31.8 g/dL Normal 29.9-35.2 [facility] Comment on above: Performed By: #### U A #### [facility] [address] [place] [address] Dr. Mason Astudillo MCV (RBC) [Entitic vol] 94.2 fL Critically high 80.0-94.0 [facility] Comment on above: Performed By: #### U A #### [facility] [address] [place] [address] Dr. Mason Astudillo MONO # 0.3 103/ul Normal 0.3-0.8 [facility] Comment on above: Performed By: #### U A #### [facility] [address] [place] [address] Dr. Mason Astudillo Monocytes/100 WBC (Bld) 6.9 % Normal 1.7-12.0 [facility] Comment on above: Performed By: #### U A #### [facility] [address] [place] [address] Dr. Mason Astudillo NEUT # 3.4 103/ul Normal 1.4-6.5 [facility] Comment on above: Performed By: #### U A #### [facility] [address] [place], [place] [id number] Dr. Mason Astudillo Neutrophils/100 WBC (Bld) 74.4 % Normal 43.0-75.0 [facility] Comment on above: Performed By: #### U A #### [facility] [address] [place] [address] Dr. Mason Astudillo Platelet mean volume (Bld) [Entitic vol] 10.6 fL Normal 9.5-13.5 [facility] Comment on above: Performed By: #### U A #### [facility] [address] [place] [address] Dr. Mason Astudillo PLT 117 103/ul Critically low 150-450 [facility] Comment on above: Performed By: #### U A #### [facility] [address] [place] [address] Dr. Mason Astudillo RBC 2.91 106/ul Critically low 4.70-6.10 [facility] Comment on above: Performed By: #### U A #### [facility] [address] [place] [address] Dr. Mason Astudillo WBC 4.6 103/ul Normal 4.0-11.0 [facility] Comment on above: Performed By: #### U A #### [facility] [address] [place] [address] Dr. Mason Astudillo CARDIAC STRESS TESTon 2021 [...] be dictated separately by Radiology. Normal [facility] NM STRESS/REST MULTIon 03-26 NM STRESS/REST MULTI Patient: BEN GUADALUPE Exam Date: 03/26/2022 : 1935 Gender:M Ordering : DR KAVITA DANIELLE M.D. Admission #: [id number] Family : Order #: [id number] CLICK HERE TO VIEW EXAM RADIOLOGY REPORT [...] Patel MD on 03/27/2022 at 08:14 Normal [facility] Orders Onlyon 03-19-2022 Orders Only [id number] Ben Guadalupe 1935 M Date Provider Department Center 03/19/2022 ERIC MEJIAS [facility] Family History Problem Relation Age of Onset Heart failure Mother Prostate cancer Father Coronary artery disease Brother Prostate cancer Brother Family Status - Relation Status Age at Mother Father Brother Normal [facility] CBC AUTO DIFFon 03-18-2022 BASO # 0.0 103/ul Normal 0.0-0.1 [facility] Comment on above: Performed By: #### P OCGLUC #### [facility] [address] [address] [address] Mason Astudillo Basophils/100 WBC (Bld) 0.5 % Normal 0.2-2.0 [facility] Comment on above: Performed By: #### P OCGLUC #### [facility] [address] [address] [address] Mason Astudillo EO # 0.1 103/ul Normal 0.0-0.7 [facility] Comment on above: Performed By: #### P OCGLUC #### [facility] [address] [place] [address] Dr. Mason Astudillo Eosinophils/100 WBC (Bld) 2.3 % Normal 0.9-7.0 [facility] Comment on above: Performed By: #### P OCGLUC #### [facility] [address] [place] [address] Dr. Mason Astudillo Erythrocyte distribution width (RBC) [Ratio] 17.2 % Critically high 11.0-15.0 [facility] Comment on above: Performed By: #### P OCGLUC #### [facility] [address] [place] [address] Dr. Mason Astudillo Hematocrit (Bld) [Volume fraction] 43.9 % Normal 42.0-54.0 [facility] Comment on above: Performed By: #### P OCGLUC #### [facility] [address] [place] [address] Dr. Mason Astudillo Hemoglobin (Bld) [Mass/Vol] 14.1 g/dL Normal 14.0-18.0 [facility] Comment on above: Performed By: #### P OCGLUC #### [facility] [address] [place] [address] Dr. Mason Astudillo IG # 0.04 10e3/ul Critically high 0.00-0.03 [facility] Comment on above: Performed By: #### P OCGLUC #### [facility] [address] [place] [address] Dr. Mason Astudillo IG % 0.7 % Critically high 0.0-0.5 [facility] Comment on above: Performed By: #### P OCGLUC #### [facility] [address] [address] [address] Mason Astudillo LYMPH # 1.1 103/ul Critically low 1.2-3.8 [facility] Comment on above: Performed By: #### P OCGLUC #### [facility] [address] [address] [address] Mason Astudillo Lymphocytes/100 WBC (Bld) 18.3 % Critically low 20.5-60.0 [facility] Comment on above: Performed By: #### P OCGLUC #### [facility] [address] [place] [address] Dr. Mason Astudillo MANUAL DIFF REQ NO Normal [facility] Comment on above: Performed By: #### P OCGLUC #### [facility] [address] [place] [address] Dr. Mason Astudillo MCH (RBC) [Entitic mass] 29.3 pg Normal 25.9-34.0 [facility] Comment on above: Performed By: #### P OCGLUC #### [facility] [address] [place] [address] Dr. Mason Astudillo MCHC (RBC) [Mass/Vol] 32.1 g/dL Normal 29.9-35.2 [facility] Comment on above: Performed By: #### P OCGLUC #### [facility] [address] [place] [address] Dr. Mason Astudillo MCV (RBC) [Entitic vol] 91.1 fL Normal 80.0-94.0 [facility] Comment on above: Performed By: #### P OCGLUC #### [facility] [address] [place] [address] Dr. Mason Astudillo MONO # 0.5 103/ul Normal 0.3-0.8 [facility] Comment on above: Performed By: #### P OCGLUC #### [facility] [address] [place] [address] Dr. Mason Astudillo Monocytes/100 WBC (Bld) 7.7 % Normal 1.7-12.0 [facility] Comment on above: Performed By: #### P OCGLUC #### [facility] [address] [address] [address] Mason Astudillo NEUT # 4.3 103/ul Normal 1.4-6.5 [facility] Comment on above: Performed By: #### P OCGLUC #### [facility] [address] [address] [address] Mason Astudillo Neutrophils/100 WBC (Bld) 70.5 % Normal 43.0-75.0 [facility] Comment on above: Performed By: #### P OCGLUC #### [facility] [address] [address] [address] Mason Astudillo Platelet mean volume (Bld) [Entitic vol] 9.9 fL Normal 9.5-13.5 [facility] Comment on above: Performed By: #### P OCGLUC #### [facility] [address] [place] [address] Dr. Mason Astudillo PLT 130 103/ul Critically low 150-450 [facility] Comment on above: Performed By: #### P OCGLUC #### [facility] [address] [address] [address] Mason Astudillo RBC 4.82 106/ul Normal 4.70-6.10 [facility] Comment on above: Performed By: #### P OCGLUC #### [facility] [address] [address] [address] Mason Astudillo WBC 6.1 103/ul Normal 4.0-11.0 [facility] Comment on above: Performed By: #### P OCGLUC #### [facility] [address] [place] [address] Dr. Mason Astudillo Office Visiton 03-18-2022 Follow-up visit [id number] Ben Guadalupe 1935 M Date Provider Department Center 03/18/2022 KAVITA RITTER [facility] Family History Problem Relation Age of Onset Heart failure Mother Prostate cancer Father Coronary artery disease Brother Prostate cancer Brother Family Status - Relation Status Age at Mother Father Brother Level of Service:81654 MI OFFICE/OUTPATIENT ESTABLISHED MOD MDM 30-39 MIN Reason for Visit and Comments: Atrial Fibrillation [80] Coronary Artery Disease [187] Hypertension [275697] left ventricular hypertrophy [Other] Normal [facility] PROF CHEM 8 (BAS METB)on Anion gap [Moles/Vol] 10.8 mmol/L Normal [facility] Comment on above: Performed By: #### U A #### [facility] [address] [address] [address] Mason Astudillo Calcium [Mass/Vol] 8.8 mg/dL Normal 8.5-10.1 [facility] Comment on above: Performed By: #### U A #### [facility] [address] [address] [address] Mason Astudillo Chloride [Moles/Vol] 103 mmol/L Normal 98-107 [facility] Comment on above: Performed By: #### U A #### [facility] [address] [address] [address] Mason Astudillo CO2 [Moles/Vol] 29.9 mmol/L Normal 21.0-32.0 [facility] Comment on above: Performed By: #### U A #### [facility] [address] [address] [address] Mason Astudillo Creatinine [Mass/Vol] 1.20 mg/dL Normal 0.70-1.30 [facility] Comment on above: Performed By: #### U A #### [facility] [address] [address] [address] Mason Astudillo EGFR-AF ENGLISH >60 Normal >=60 [facility] Comment on above: Performed By: #### U A #### [facility] [address] [address] [address] Mason Astudillo EGFR-NON AF ENGLISH 58 mL/min/1.73m2 Critically low >=60 [facility] Comment on above: Performed By: #### U A #### [facility] [address] [address] [address] Mason Astudillo Glucose [Mass/Vol] 202 mg/dL Critically high 74-106 T [facility] Comment on above: Performed By: #### U A #### [facility] [address] [address] [address] Mason Astudillo Potassium [Moles/Vol] 3.7 mmol/L Normal 3.5-5.1 [facility] Comment on above: Performed By: #### U A #### [facility] [address] [address] [address] Mason Astudillo Sodium [Moles/Vol] 140 mmol/L Normal 136-145 [facility] Comment on above: Performed By: #### U A #### [facility] [address] [address] [address] Mason Astudillo Urea nitrogen [Mass/Vol] 22.0 mg/dL Critically high 7.0-18.0 [facility] Comment on above: Performed By: #### U A #### [facility] [address] [address] [address] Mason Astudillo Urea nitrogen/Creatinine [Mass ratio] 18.3 mg/mg Normal [facility] Comment on above: Performed By: #### U A #### [facility] [address] [address] [address] Mason Astudillo Abstracton 03-16-2022 Abstract [id number] Ben Guadalupe 1935 M Date Provider Department Center 03/16/2022 AnjaliMONE SHIPMAN [facility] Family History Problem Relation Age of Onset Heart failure Mother Prostate cancer Father Coronary artery disease Brother Prostate cancer Brother Family Status - Relation Status Age at Mother Father Brother Normal [facility] XR KUB 1 VIEWon 02-18-2022 XR [...] by: BRISA SALAS Date: 2022-02-18 15:45 Normal [facility] VIT D 25-OH LABCORPon 2021 Vitamin D, 25-Hydroxy 27.3 ng/mL Critically low 30.0-100.0 [facility] Comment on above: Result Comment: Masha min D deficiency has been defined by the [place] [employer] and an Endocrine Society practice guideline as a level of serum 25-OH vitamin D less than 20 ng/mL (1,2). The Endocrine Society went on to further define vitamin D insufficiency as a level between 21 and 29 ng/mL (2). 1. IOM ([place] of [employer]). 2010. Dietary reference intakes for calcium and D. [place]: The National Academies Press. 2. Hemalatha MF, [place], Kamla ROUSE, et al. Evaluation, treatment, and prevention of vitamin D deficiency: an Endocrine Society clinical practice guideline. JCEM. 2010; 96(7):1911-30. Performed By: #### A 1C #### [facility] [address] [place] [address] Dr. Mason Astudillo CBC AUTO DIFFon 02-06-2022 BASO # 0.0 103/ul Normal 0.0-0.1 [facility] Comment on above: Performed By: #### A 1C #### [facility] [address] [place] [address] Dr. Mason Astudillo Basophils/100 WBC (Bld) 0.4 % Normal 0.2-2.0 [facility] Comment on above: Performed By: #### A 1C #### [facility] [address] [place] [address] Dr. Mason Astudillo EO # 0.1 103/ul Normal 0.0-0.7 [facility] Comment on above: Performed By: #### A 1C #### [facility] [address] [place] [address] Dr. Mason Astudillo Eosinophils/100 WBC (Bld) 2.5 % Normal 0.9-7.0 [facility] Comment on above: Performed By: #### A 1C #### [facility] [address] [place] [address] Dr. Mason Astudillo Erythrocyte distribution width (RBC) [Ratio] 16.6 % Critically high 11.0-15.0 [facility] Comment on above: Performed By: #### A 1C #### [facility] [address] [place] [address] Dr. Mason Astudillo Hematocrit (Bld) [Volume fraction] 26.8 % Critically low 42.0-54.0 [facility] Comment on above: Performed By: #### A 1C #### [facility] [address] [place] [address] Dr. Mason Astudillo Hemoglobin (Bld) [Mass/Vol] 8.4 g/dL Critically low 14.0-18.0 [facility] Comment on above: Performed By: #### A 1C #### [facility] [address] [place] [address] Dr. Mason Astudillo IG # 0.12 10e3/ul Critically high 0.00-0.03 [facility] Comment on above: Performed By: #### A 1C #### [facility] [address] [place] [address] Dr. Mason Astudillo IG % 2.5 % Critically high 0.0-0.5 [facility] Comment on above: Performed By: #### A 1C #### [facility] [address] [place] [address] Dr. Mason Astudillo LYMPH # 0.9 103/ul Critically low 1.2-3.8 [facility] Comment on above: Performed By: #### A 1C #### [facility] [address] [place] [address] Dr. Mason Astudillo Lymphocytes/100 WBC (Bld) 18.1 % Critically low 20.5-60.0 [facility] Comment on above: Performed By: #### A 1C #### [facility] [address] [place] [address] Dr. Mason Astudillo MANUAL DIFF REQ NO Normal [facility] Comment on above: Performed By: #### A 1C #### [facility] [address] [place] [address] Dr. Mason Astudillo MCH (RBC) [Entitic mass] 27.7 pg Normal 25.9-34.0 [facility] Comment on above: Performed By: #### A 1C #### [facility] [address] [address] [address] Mason Astudillo MCHC (RBC) [Mass/Vol] 31.3 g/dL Normal 29.9-35.2 [facility] Comment on above: Performed By: #### A 1C #### [facility] [address] [place] [address] Dr. Mason Astudillo MCV (RBC) [Entitic vol] 88.4 fL Normal 80.0-94.0 [facility] Comment on above: Performed By: #### A 1C #### [facility] [address] [place] [address] Dr. Mason Astudillo MONO # 0.4 103/ul Normal 0.3-0.8 [facility] Comment on above: Performed By: #### A 1C #### [facility] [address] [place] [address] Dr. Mason Astudillo Monocytes/100 WBC (Bld) 9.1 % Normal 1.7-12.0 [facility] Comment on above: Performed By: #### A 1C #### [facility] [address] [place] [address] Dr. Mason Astudillo NEUT # 3.2 103/ul Normal 1.4-6.5 [facility] Comment on above: Performed By: #### A 1C #### [facility] [address] [place] [address] Dr. Mason Astudillo Neutrophils/100 WBC (Bld) 67.4 % Normal 43.0-75.0 [facility] Comment on above: Performed By: #### A 1C #### [facility] [address] [place] [address] Dr. Mason Astudillo Platelet mean volume (Bld) [Entitic vol] 10.2 fL Normal 9.5-13.5 [facility] Comment on above: Performed By: #### A 1C #### [facility] [address] [place] [address] Dr. Mason Astudillo PLT 135 103/ul Critically low 150-450 [facility] Comment on above: Performed By: #### A 1C #### [facility] [address] [address] [address] Mason Astudillo RBC 3.03 106/ul Critically low 4.70-6.10 [facility] Comment on above: Performed By: #### A 1C #### [facility] [address] [place] [address] Dr. Mason Astudillo WBC 4.7 103/ul Normal 4.0-11.0 [facility] Comment on above: Performed By: #### A 1C #### [facility] [address] [place] [address] Dr. Mason Astudillo GLYCOHEMOGLOBIN A1Con 2021 ADA RECOMMENDATION SEE BELOW Normal [facility] Comment on above: Result Comment: ADA RECOMMENDED LIMIT 4.0 - 6.0 ADA THERAPEUTIC TARGET < 7.0 ACTION SUGGESTED > 7.0 Performed By: #### A 1C #### [facility] [address] [place] [address] Dr. Mason Astudillo Glucose [Mass/Vol] 148 mg/dL Normal [facility] Comment on above: Performed By: #### A 1C #### [facility] [address] [place] [address] Dr. Mason Astudillo HbA1c (Bld) [Mass fraction] 6.8 % Critically high 4.5-6.2 [facility] Comment on above: Performed By: #### A 1C #### [facility] [address] [place] [address] Dr. Mason Astudillo POINT OF CARE GLUCOSEon Glucose [Mass/Vol] 157 mg/dL Critically high 74-106 T [facility] Comment on above: Performed By: #### P OCGLUC #### [facility] [address] [place] [address] Dr. Mason Astudillo PROF CHEM 8 (BAS METB)on Anion gap [Moles/Vol] 10.5 mmol/L Normal [facility] Comment on above: Performed By: #### B MP #### [facility] [address] [place] [address] Dr. Mason Astudillo Calcium [Mass/Vol] 8.0 mg/dL Critically low 8.5-10.1 [facility] Comment on above: Performed By: #### B MP #### [facility] [address] [place] [address] Dr. Mason Astudillo Chloride [Moles/Vol] 105 mmol/L Normal 98-107 [facility] Comment on above: Performed By: #### B MP #### [facility] [address] [address] [address] Mason Astudillo CO2 [Moles/Vol] 27.2 mmol/L Normal 21.0-32.0 [facility] Comment on above: Performed By: #### B MP #### [facility] [address] [place] [address] Dr. Mason Astudillo Creatinine [Mass/Vol] 1.11 mg/dL Normal 0.70-1.30 [facility] Comment on above: Performed By: #### B MP #### [facility] [address] [place] [address] Dr. Mason Astudillo EGFR-AF ENGLISH >60 Normal >=60 [facility] Comment on above: Performed By: #### B MP #### [facility] [address] [place] [address] Dr. Mason Astudillo EGFR-NON AF ENGLISH >60 Normal >=60 [facility] Comment on above: Performed By: #### B MP #### [facility] [address] [place] [address] Dr. Mason Astudillo Glucose [Mass/Vol] 174 mg/dL Critically high 74-106 [facility] Comment on above: Performed By: #### B MP #### [facility] [address] [address] [address] Mason Astudillo Potassium [Moles/Vol] 3.7 mmol/L Normal 3.5-5.1 [facility] Comment on above: Performed By: #### B MP #### [facility] [address] [place] [address] Dr. Mason Astudillo Sodium [Moles/Vol] 139 mmol/L Normal 136-145 [facility] Comment on above: Performed By: #### B MP #### [facility] [address] [place] [address] Dr. Mason Astudillo Urea nitrogen [Mass/Vol] 19.0 mg/dL Critically high 7.0-18.0 [facility] Comment on above: Performed By: #### B MP #### [facility] [address] [place] [address] Dr. Mason Astudillo Urea nitrogen/Creatinine [Mass ratio] 17.1 mg/mg Normal [facility] Comment on above: Performed By: #### B MP #### [facility] [address] [place] [address] Dr. Mason Astudillo CBC W MANUAL DIFFon 02-06-20 22 ATYPICAL LYMPH # Normal [facility] Comment on above: Performed By: #### C BC #### [facility] [address] [place] [address] Dr. Mason Astudillo ATYPICAL LYMPH % Normal [facility] Comment on above: Performed By: #### C BC #### [facility] [address] [place] [address] Dr. Mason Astudillo BAND # 0.0 103/ul Normal 0.0-0.3 [facility] Comment on above: Performed By: #### C BC #### [facility] [address] [place] [address] Dr. Mason Astudillo BAND % 0 % Normal 0-5 [facility] Comment on above: Performed By: #### C BC #### [facility] [address] [place] [address] Dr. Mason Astudillo BASOM # 0.06 103/ul Normal 0.00-0.10 [facility] Comment on above: Performed By: #### C BC #### [facility] [address] [place] [address] Dr. Mason Astudillo BASOM % 1.0 % Normal 0.2-2.0 [facility] Comment on above: Performed By: #### C BC #### [facility] [address] [place] [address] Dr. Mason Astudillo BLAST # Normal [facility] Comment on above: Performed By: #### C BC #### [facility] [address] [place] [address] Dr. Mason Astudillo BLAST % Normal [facility] Comment on above: Performed By: #### C BC #### [facility] [address] [place] [address] Dr. Mason Astudillo CORRECTED WBC Normal 4.0-11.0 [facility] Comment on above: Performed By: #### C BC #### [facility] [address] [place] [address] Dr. Mason Astudillo EOS # 0.17 103/ul Normal 0.00-0.70 [facility] Comment on above: Performed By: #### C BC #### [facility] [address] [place] [address] Dr. Mason Astudillo EOS% 3.0 % Normal 0.9-7.0 [facility] Comment on above: Performed By: #### C BC #### [facility] [address] [place] [address] Dr. Mason Astudillo HCT 27.4 % Critically low 42.0-54.0 [facility] Comment on above: Performed By: #### C BC #### [facility] [address] [place] [address] Dr. Mason Astudillo HGB 8.6 g/dl Critically low 14.0-18.0 [facility] Comment on above: Performed By: #### C BC #### [facility] [address] [place] [address] Dr. Mason Astudillo LYMPHM # 0.56 103/ul Critically low 1.20-3.80 [facility] Comment on above: Performed By: #### C BC #### [facility] [address] [place] [address] Dr. Mason Astudillo LYMPHM% 10.0 % Critically low 20.5-60.0 [facility] Comment on above: Performed By: #### C BC #### [facility] [address] [place] [address] Dr. Mason Astudillo MCH 27.7 pg Normal 25.9-34.0 [facility] Comment on above: Performed By: #### C BC #### [facility] [address] [place] [address] Dr. Mason Astudillo MCHC 31.4 g/dl Normal 29.9-35.2 [facility] Comment on above: Performed By: #### C BC #### [facility] [address] [place] [address] Dr. Mason Astudillo MCV 88.1 fL Normal 80.0-94.0 [facility] Comment on above: Performed By: #### C BC #### [facility] [address] [place] [address] Dr. Mason Astudillo METAMYELOCYTE # Normal [facility] Comment on above: Performed By: #### C BC #### [facility] [address] [place] [address] Dr. Mason Astudillo METAMYELOCYTE % Normal [facility] Comment on above: Performed By: #### C BC #### [facility] [address] [place] [address] Dr. Mason Astudillo MONOM# 0.34 103/ul Normal 0.30-0.80 [facility] Comment on above: Performed By: #### C BC #### [facility] [address] [place] [address] Dr. Mason Astudillo MONOM% 6.0 % Normal 1.7-12.0 [facility] Comment on above: Performed By: #### C BC #### [facility] [address] [place] [address] Dr. Mason Astudillo MPV 10.5 fL Normal 9.5-13.5 [facility] Comment on above: Performed By: #### C BC #### [facility] [address] [place] [address] Dr. Mason Astudillo MYELOCYTE # Normal [facility] Comment on above: Performed By: #### C BC #### [facility] [address] [place] [address] Dr. Mason Astudillo MYELOCYTE % Normal [facility] Comment on above: Performed By: #### C BC #### [facility] [address] [address] [address] Mason Astudillo NRBC Normal [facility] Comment on above: Performed By: #### C BC #### [facility] [address] [address] [address] Mason Astudillo OVALOCYTES 1+ Normal [facility] Comment on above: Performed By: #### C BC #### [facility] [address] [address] [address] Mason Astudillo PLT 124 103/ul Critically low 150-450 [facility] Comment on above: Performed By: #### C BC #### [facility] [address] [place] [address] Dr. Mason Astudillo RBC 3.11 106/ul Critically low 4.70-6.10 [facility] Comment on above: Performed By: #### C BC #### [facility] [address] [place] [address] Dr. Mason Astudillo RDW 15.9 % Critically high 11.0-15.0 [facility] Comment on above: Performed By: #### C BC #### [facility] [address] [place] [address] Dr. Mason Astudillo SEG # 4.48 103/ul Normal 1.40-6.50 [facility] Comment on above: Performed By: #### C BC #### [facility] [address] [place] [address] Dr. Mason Astudillo SEG % 80.0 % Critically high 43.0-75.0 [facility] Comment on above: Performed By: #### C BC #### [facility] [address] [place] [address] Dr. Mason Astudillo WBC 5.6 103/ul Normal 4.0-11.0 [facility] Comment on above: Performed By: #### C BC #### [facility] [address] [place] [address] Dr. Mason Astudillo POINT OF CARE GLUCOSEon 08-0 Glucose [Mass/Vol] 260 mg/dL Critically high 74-106 [facility] Comment on above: Performed By: #### P OCGLUC #### [facility] [address] [address] [address] Mason Astudillo Glucose [Mass/Vol] 165 mg/dL Critically high -106 [facility] Comment on above: Performed By: #### A 1C #### [facility] [address] [address] [address] Mason Astudillo Glucose [Mass/Vol] 147 mg/dL Critically high 74-106 [facility] Comment on above: Performed By: #### C BC #### [facility] [address] [place] [address] Dr. Mason Astudillo PROF CHEM 8 (BAS METB)on Anion gap [Moles/Vol] 11.0 mmol/L Normal [facility] Comment on above: Performed By: #### U A #### [facility] [address] [place] [address] Dr. Mason Astudillo Calcium [Mass/Vol] 8.0 mg/dL Critically low 8.5-10.1 [facility] Comment on above: Performed By: #### U A #### [facility] [address] [place] [address] Dr. Mason Astudillo Chloride [Moles/Vol] 106 mmol/L Normal 98-107 [facility] Comment on above: Performed By: #### U A #### [facility] [address] [place] [address] Dr. Mason Astudillo CO2 [Moles/Vol] 26.7 mmol/L Normal 21.0-32.0 [facility] Comment on above: Performed By: #### U A #### [facility] [address] [place] [address] Dr. Mason Astudillo Creatinine [Mass/Vol] 1.22 mg/dL Normal 0.70-1.30 [facility] Comment on above: Performed By: #### U A #### [facility] [address] [place] [address] Dr. Mason Astudillo EGFR-AF ENGLISH >60 Normal >=60 [facility] Comment on above: Performed By: #### U A #### [facility] [address] [address] [address] Mason Astudillo EGFR-NON AF ENGLISH 56 mL/min/1.73m2 Critically low >=60 [facility] Comment on above: Performed By: #### U A #### [facility] [address] [address] [address] Mason Astudillo Glucose [Mass/Vol] 147 mg/dL Critically high 74-106 [facility] Comment on above: Performed By: #### U A #### [facility] [address] [address] [address] Mason Astudillo Potassium [Moles/Vol] 3.7 mmol/L Normal 3.5-5.1 [facility] Comment on above: Performed By: #### U A #### [facility] [address] [address] [address] Mason Astudillo Sodium [Moles/Vol] 140 mmol/L Normal 136-145 [facility] Comment on above: Performed By: #### U A #### [facility] [address] [address] [address] Mason Astudillo Urea nitrogen [Mass/Vol] 17.0 mg/dL Normal 7.0-18.0 [facility] Comment on above: Performed By: #### U A #### [facility] [address] [address] [address] Mason Astudillo Urea nitrogen/Creatinine [Mass ratio] 13.9 mg/mg Normal [facility] Comment on above: Performed By: #### U A #### [facility] [address] [address] [address] Mason Astudillo CBC AUTO DIFFon 02-04-2022 BASO # 0.0 103/ul Normal 0.0-0.1 [facility] Comment on above: Performed By: #### C BC #### [facility] [address] [address] [address] Mason Astudillo Basophils/100 WBC (Bld) 0.2 % Normal 0.2-2.0 [facility] Comment on above: Performed By: #### C BC #### [facility] [address] [address] [address] Mason Astudillo EO # 0.2 103/ul Normal 0.0-0.7 [facility] Comment on above: Performed By: #### C BC #### [facility] [address] [place] [address] Dr. Mason Astudillo Eosinophils/100 WBC (Bld) 3.4 % Normal 0.9-7.0 [facility] Comment on above: Performed By: #### C BC #### [facility] [address] [place] [address] Dr. Mason Astudillo Erythrocyte distribution width (RBC) [Ratio] 15.6 % Critically high 11.0-15.0 [facility] Comment on above: Performed By: #### C BC #### [facility] [address] [place] [address] Dr. Mason Astudillo Hematocrit (Bld) [Volume fraction] 26.1 % Critically low 42.0-54.0 [facility] Comment on above: Performed By: #### C BC #### [facility] [address] [place] [address] Dr. Mason Astudillo Hemoglobin (Bld) [Mass/Vol] 8.2 g/dL Critically low 14.0-18.0 [facility] Comment on above: Performed By: #### C BC #### [facility] [address] [place] [address] Dr. Mason Astudillo IG # 0.06 10e3/ul Critically high 0.00-0.03 [facility] Comment on above: Performed By: #### C BC #### [facility] [address] [place] [address] Dr. Mason Astudillo IG % 1.4 % Critically high 0.0-0.5 [facility] Comment on above: Performed By: #### C BC #### [facility] [address] [place] [address] Dr. Mason Astudillo LYMPH # 0.6 103/ul Critically low 1.2-3.8 [facility] Comment on above: Performed By: #### C BC #### [facility] [address] [place] [address] Dr. Mason Astudillo Lymphocytes/100 WBC (Bld) 14.3 % Critically low 20.5-60.0 [facility] Comment on above: Performed By: #### C BC #### [facility] [address] [place] [address] Dr. Mason Astudillo MANUAL DIFF REQ NO Normal [facility] Comment on above: Performed By: #### C BC #### [facility] [address] [place] [address] Dr. Mason Astudillo MCH (RBC) [Entitic mass] 27.4 pg Normal 25.9-34.0 [facility] Comment on above: Performed By: #### C BC #### [facility] [address] [place] [address] Dr. Mason Astudillo MCHC (RBC) [Mass/Vol] 31.4 g/dL Normal 29.9-35.2 [facility] Comment on above: Performed By: #### C BC #### [facility] [address] [place] [address] Dr. Mason Astudillo MCV (RBC) [Entitic vol] 87.3 fL Normal 80.0-94.0 [facility] Comment on above: Performed By: #### C BC #### [facility] [address] [place] [address] Dr. Mason Astudillo MONO # 0.5 103/ul Normal 0.3-0.8 [facility] Comment on above: Performed By: #### C BC #### [facility] [address] [place] [address] Dr. Mason Astudillo Monocytes/100 WBC (Bld) 10.4 % Normal 1.7-12.0 [facility] Comment on above: Performed By: #### C BC #### [facility] [address] [place] [address] Dr. Mason Astudillo NEUT # 3.1 103/ul Normal 1.4-6.5 [facility] Comment on above: Performed By: #### C BC #### [facility] [address] [address] [address] Mason Astudillo Neutrophils/100 WBC (Bld) 70.3 % Normal 43.0-75.0 [facility] Comment on above: Performed By: #### C BC #### [facility] [address] [address] [address] Mason Astudillo Platelet mean volume (Bld) [Entitic vol] 10.5 fL Normal 9.5-13.5 [facility] Comment on above: Performed By: #### C BC #### [facility] [address] [address] [address] Mason Astudillo PLT 105 103/ul Critically low 150-450 [facility] Comment on above: Performed By: #### C BC #### [facility] [address] [place] [address] Dr. Mason Astudillo RBC 2.99 106/ul Critically low 4.70-6.10 [facility] Comment on above: Performed By: #### C BC #### [facility] [address] [address] [address] Mason Astudillo WBC 4.4 103/ul Normal 4.0-11.0 [facility] Comment on above: Performed By: #### C BC #### [facility] [address] [place] [address] Dr. Mason Astudillo ECHOCARDIO M/2D COMPLETEon 0 02-04-2022 ECHOCARDIO M/2D COMPLETE Patient: BEN GUADALUPE Exam Date: 02/04/2022 : 1935 Gender:M Ordering : DR COLTON CASTELLON . Admission #: [id number] Family : SHAIKH Samantha ELLIOTT . Order #: [id number] CLICK HERE TO VIEW EXAM ECHOCARDIOGRAM REPORT [...] Cheney M.D. on 02/04/2022 at 13:39 Normal [facility] POINT OF CARE GLUCOSEon 08-0 Glucose [Mass/Vol] 262 mg/dL Critically high 74-106 [facility] Comment on above: Performed By: #### C BC #### [facility] [address] [address] [address] Mason Astudillo Glucose [Mass/Vol] 167 mg/dL Critically high 74-106 [facility] Comment on above: Performed By: #### C BC #### [facility] [address] [address] [address] Mason Astuidllo Glucose [Mass/Vol] 158 mg/dL Critically high -106 [facility] Comment on above: Performed By: #### P OCGLUC #### [facility] [address] [address] [address] Mason Astudillo PRBC LEUKOREDUCEDon 02-05-20 ABO and Rh group Nom (Bld) Cross Match Result Compatible Unit Blood Type A Neg Unit Number [id number] Status Information Transfused Product ID Red Blood Cells Product Code [id number] Cross Match Result Compatible Unit Blood Type A Neg Unit Number [id number] Status Information Transfused Product ID Red Blood Cells Product Code [id number] Normal [facility] Comment on above: Performed By: #### P SAD #### [facility] [address] [place] [address] Dr. Mason Astudillo PROF CHEM 8 (BAS METB)on Anion gap [Moles/Vol] 11.5 mmol/L Normal [facility] Comment on above: Performed By: #### C BC #### [facility] [address] [place] [address] Dr. Mason Astudillo Calcium [Mass/Vol] 7.4 mg/dL Critically low 8.5-10.1 [facility] Comment on above: Performed By: #### C BC #### [facility] [address] [place] [address] Dr. Mason Astudillo Chloride [Moles/Vol] 106 mmol/L Normal 98-107 [facility] Comment on above: Performed By: #### C BC #### [facility] [address] [place] [address] Dr. Mason Astudillo CO2 [Moles/Vol] 25.8 mmol/L Normal 21.0-32.0 [facility] Comment on above: Performed By: #### C BC #### [facility] [address] [place] [address] Dr. Mason Astudillo Creatinine [Mass/Vol] 1.07 mg/dL Normal 0.70-1.30 [facility] Comment on above: Performed By: #### C BC #### [facility] [address] [place] [address] Dr. Mason Astudillo EGFR-AF ENGLISH >60 Normal >=60 [facility] Comment on above: Performed By: #### C BC #### [facility] [address] [address] [address] Mason Astudillo EGFR-NON AF ENGLISH >60 Normal >=60 [facility] Comment on above: Performed By: #### C BC #### [facility] [address] [address] [address] Mason Astudillo Glucose [Mass/Vol] 165 mg/dL Critically high 74-106 T [facility] Comment on above: Performed By: #### C BC #### [facility] [address] [address] [address] Mason Astudillo Potassium [Moles/Vol] 3.3 mmol/L Critically low 3.5-5.1 [facility] Comment on above: Performed By: #### C BC #### [facility] [address] [address] [address] Mason Astudillo Sodium [Moles/Vol] 140 mmol/L Normal 136-145 [facility] Comment on above: Performed By: #### C BC #### [facility] [address] [address] [address] Mason Astudillo Urea nitrogen [Mass/Vol] 19.0 mg/dL Critically high 7.0-18.0 [facility] Comment on above: Performed By: #### C BC #### [facility] [address] [address] [address] Mason Astudillo Urea nitrogen/Creatinine [Mass ratio] 17.8 mg/mg Normal [facility] Comment on above: Performed By: #### C BC #### [facility] [address] [address] [address] Mason Astudillo ABO RH RETYPEon 02-03-2022 ABO and Rh group Nom (Bld) DONE Normal [facility] Comment on above: Performed By: #### P OCGLUC #### [facility] [address] [place] [address] Dr. Mason Astudillo CBC AUTO DIFFon 02-03-2022 Basophils/100 WBC (Bld) 0.5 % Normal 0.2-2.0 [facility] Comment on above: Performed By: #### U A #### [facility] [address] [place], [place] [id number] Dr. Mason Astudillo EO # 0.2 103/ul Normal 0.0-0.7 [facility] Comment on above: Performed By: #### U A #### [facility] [address] [place] [address] Dr. Mason Astudillo Eosinophils/100 WBC (Bld) 2.9 % Normal 0.9-7.0 [facility] Comment on above: Performed By: #### U A #### [facility] [address] [place] [address] Dr. Mason Astudillo Erythrocyte distribution width (RBC) [Ratio] 15.7 % Critically high 11.0-15.0 [facility] Comment on above: Performed By: #### U A #### [facility] [address] [place] [address] Dr. Mason Astudillo Hematocrit (Bld) [Volume fraction] 31.1 % Critically low 42.0-54.0 [facility] Comment on above: Performed By: #### U A #### [facility] [address] [place] [address] Dr. Mason Astudillo Hemoglobin (Bld) [Mass/Vol] 9.7 g/dL Critically low 14.0-18.0 [facility] Comment on above: Result Comment: rcvd . 2 units of packed red cells. Performed By: #### U A #### [facility] [address] [place] [address] Dr. Mason Astudillo IG # 0.05 10e3/ul Critically high 0.00-0.03 [facility] Comment on above: Performed By: #### U A #### [facility] [address] [place] [address] Dr. Mason Astudillo IG % 0.8 % Critically high 0.0-0.5 [facility] Comment on above: Performed By: #### U A #### [facility] [address] [place] [address] Dr. Mason Astudillo LYMPH # 1.1 103/ul Critically low 1.2-3.8 [facility] Comment on above: Performed By: #### U A #### [facility] [address] [place] [address] Dr. Mason Astudillo Lymphocytes/100 WBC (Bld) 19.3 % Critically low 20.5-60.0 [facility] Comment on above: Performed By: #### U A #### [facility] [address] [place] [address] Dr. Mason Astudillo MCH (RBC) [Entitic mass] 27.2 pg Normal 25.9-34.0 [facility] Comment on above: Performed By: #### U A #### [facility] [address] [place] [address] Dr. Mason Astudillo MCHC (RBC) [Mass/Vol] 31.2 g/dL Normal 29.9-35.2 [facility] Comment on above: Performed By: #### U A #### [facility] [address] [place] [address] Dr. Mason Astudillo MCV (RBC) [Entitic vol] 87.1 fL Normal 80.0-94.0 [facility] Comment on above: Performed By: #### U A #### [facility] [address] [place] [address] Dr. Mason Astudillo MONO # 0.6 103/ul Normal 0.3-0.8 [facility] Comment on above: Performed By: #### U A #### [facility] [address] [place] [address] Dr. Mason Astudillo Monocytes/100 WBC (Bld) 10.7 % Normal 1.7-12.0 [facility] Comment on above: Performed By: #### U A #### [facility] [address] [place] [address] Dr. Mason Astudillo NEUT # 3.9 103/ul Normal 1.4-6.5 [facility] Comment on above: Performed By: #### U A #### [facility] [address] [place] [address] Dr. Mason Astudillo Neutrophils/100 WBC (Bld) 65.8 % Normal 43.0-75.0 [facility] Comment on above: Performed By: #### U A #### [facility] [address] [place] [address] Dr. Mason Astudillo Platelet mean volume (Bld) [Entitic vol] 10.5 fL Normal 9.5-13.5 [facility] Comment on above: Performed By: #### U A #### [facility] [address] [place] [address] Dr. Mason Astudillo PLT 147 103/ul Critically low 150-450 [facility] Comment on above: Performed By: #### U A #### [facility] [address] [place] [address] Dr. Mason Astudillo RBC 3.57 106/ul Critically low 4.70-6.10 [facility] Comment on above: Performed By: #### U A #### [facility] [address] [place] [address] Dr. Mason Astudillo WBC 5.9 103/ul Normal 4.0-11.0 [facility] Comment on above: Performed By: #### U A #### [facility] [address] [place] [address] Dr. Mason Astudillo BASO # 0.0 103/ul Normal 0.0-0.1 [facility] Comment on above: Performed By: #### U A #### [facility] [address] [place] [address] Dr. Mason Astudillo Basophils/100 WBC (Bld) 0.3 % Normal 0.2-2.0 [facility] Comment on above: Performed By: #### U A #### [facility] [address] [place] [address] Dr. Mason Astudillo EO # 0.1 103/ul Normal 0.0-0.7 [facility] Comment on above: Performed By: #### U A #### [facility] [address] [place] [address] Dr. Mason Astudillo Eosinophils/100 WBC (Bld) 2.5 % Normal 0.9-7.0 [facility] Comment on above: Performed By: #### U A #### [facility] [address] [place] [address] Dr. Mason Astudillo Erythrocyte distribution width (RBC) [Ratio] 15.9 % Critically high 11.0-15.0 [facility] Comment on above: Performed By: #### U A #### [facility] [address] [place] [address] Dr. Mason Astudillo Hematocrit (Bld) [Volume fraction] 22.3 % Critically low 42.0-54.0 [facility] Comment on above: Result Comment: Test Repeated. Critical Value Verified Performed By: #### U A #### [facility] [address] [place] [address] Dr. Mason Astudillo Hemoglobin (Bld) [Mass/Vol] 6.7 g/dL Critically low 14.0-18.0 [facility] Comment on above: Result Comment: Test Repeated. Critical Value Verified Performed By: #### U A #### [facility] [address] [place] [address] Dr. Mason Astudillo IG # 0.02 10e3/ul Normal 0.00-0.03 [facility] Comment on above: Performed By: #### U A #### [facility] [address] [place] [address] Dr. Mason Astudillo IG % 0.5 % Normal 0.0-0.5 [facility] Comment on above: Performed By: #### U A #### [facility] [address] [place] [address] Dr. Mason Astudillo LYMPH # 0.7 103/ul Critically low 1.2-3.8 [facility] Comment on above: Performed By: #### U A #### [facility] [address] [place] [address] Dr. Mason Astudillo Lymphocytes/100 WBC (Bld) 19.5 % Critically low 20.5-60.0 [facility] Comment on above: Performed By: #### U A #### [facility] [address] [place] [address] Dr. Mason Astudillo MANUAL DIFF REQ NO Normal [facility] Comment on above: Performed By: #### U A #### [facility] [address] [address] [address] Mason Astudillo MCH (RBC) [Entitic mass] 25.8 pg Critically low 25.9-34.0 [facility] Comment on above: Performed By: #### U A #### [facility] [address] [place] [address] Dr. Mason Astudillo MCHC (RBC) [Mass/Vol] 30.0 g/dL Normal 29.9-35.2 [facility] Comment on above: Performed By: #### U A #### [facility] [address] [place] [address] Dr. Mason Astudillo MCV (RBC) [Entitic vol] 85.8 fL Normal 80.0-94.0 [facility] Comment on above: Performed By: #### U A #### [facility] [address] [place] [address] Dr. Mason Astudillo MONO # 0.4 103/ul Normal 0.3-0.8 [facility] Comment on above: Performed By: #### U A #### [facility] [address] [place] [address] Dr. Mason Astudillo Monocytes/100 WBC (Bld) 11.8 % Normal 1.7-12.0 [facility] Comment on above: Performed By: #### U A #### [facility] [address] [place] [address] Dr. Mason Astudillo NEUT # 2.4 103/ul Normal 1.4-6.5 [facility] Comment on above: Performed By: #### U A #### [facility] [address] [place] [address] Dr. Mason Astudillo Neutrophils/100 WBC (Bld) 65.4 % Normal 43.0-75.0 [facility] Comment on above: Performed By: #### U A #### [facility] [address] [place] [address] Dr. Mason Astudillo Platelet mean volume (Bld) [Entitic vol] 10.7 fL Normal 9.5-13.5 [facility] Comment on above: Performed By: #### U A #### [facility] [address] [address] [address] Mason Astudillo PLT 103 103/ul Critically low 150-450 [facility] Comment on above: Performed By: #### U A #### [facility] [address] [place] [address] Dr. Mason Astudillo RBC 2.60 106/ul Critically low 4.70-6.10 [facility] Comment on above: Performed By: #### U A #### [facility] [address] [address] [address] Mason Astudillo WBC 3.7 103/ul Critically low 4.0-11.0 [facility] Comment on above: Performed By: #### U A #### [facility] [address] [place] [address] Dr. Mason Astudillo IRON AND TIBCon 02-03-2022 % SATURATION 46.9 % Normal [facility] Comment on above: Performed By: #### U A #### [facility] [address] [place] [address] Dr. Mason Astudillo Iron [Mass/Vol] 150.0 ug/dL Normal 65.0-175.0 [facility] Comment on above: Performed By: #### U A #### [facility] [address] [place] [address] Dr. Mason Astudillo TIBC DIRECT 320.0 ug/dL Normal 250.0-450.0 [facility] Comment on above: Performed By: #### U A #### [facility] [address] [place] [address] Dr. Mason Astudillo POINT OF CARE GLUCOSEon - Glucose [Mass/Vol] 201 mg/dL Critically high 74-106 [facility] Comment on above: Performed By: #### U A #### [facility] [address] [place] [address] Dr. Mason Astudillo Glucose [Mass/Vol] 152 mg/dL Critically high 74-106 [facility] Comment on above: Performed By: #### P OCGLUC #### [facility] [address] [place] [address] Dr. Mason Astudillo Glucose [Mass/Vol] 242 mg/dL Critically high 74-106 [facility] Comment on above: Performed By: #### A 1C #### [facility] [address] [place] [address] Dr. Mason Astudillo PROF CHEM 8 (BAS METB)on Anion gap [Moles/Vol] 11.4 mmol/L Normal [facility] Comment on above: Performed By: #### B MP #### [facility] [address] [place] [address] Dr. Mason Astudillo Calcium [Mass/Vol] 7.5 mg/dL Critically low 8.5-10.1 [facility] Comment on above: Performed By: #### B MP #### [facility] [address] [place] [address] Dr. Mason Astudillo Chloride [Moles/Vol] 106 mmol/L Normal 98-107 [facility] Comment on above: Performed By: #### B MP #### [facility] [address] [place] [address] Dr. Mason Astudillo CO2 [Moles/Vol] 26.8 mmol/L Normal 21.0-32.0 [facility] Comment on above: Performed By: #### B MP #### [facility] [address] [place] [address] Dr. Mason Astudillo Creatinine [Mass/Vol] 1.26 mg/dL Normal 0.70-1.30 [facility] Comment on above: Performed By: #### B MP #### [facility] [address] [place] [address] Dr. Mason Astudillo EGFR-AF ENGLISH >60 Normal >=60 [facility] Comment on above: Performed By: #### B MP #### [facility] [address] [place] [address] Dr. Mason Astudillo EGFR-NON AF ENGLISH 54 mL/min/1.73m2 Critically low >=60 [facility] Comment on above: Performed By: #### B MP #### [facility] [address] [place] [address] Dr. Mason Astudillo Glucose [Mass/Vol] 160 mg/dL Critically high 74-106 [facility] Comment on above: Performed By: #### B MP #### [facility] [address] [place] [address] Dr. Mason Astudillo Potassium [Moles/Vol] 3.2 mmol/L Critically low 3.5-5.1 [facility] Comment on above: Performed By: #### B MP #### [facility] [address] [address] [address] Mason Astudillo Sodium [Moles/Vol] 141 mmol/L Normal 136-145 [facility] Comment on above: Performed By: #### B MP #### [facility] [address] [place] [address] Dr. Mason Astudillo Urea nitrogen [Mass/Vol] 30.0 mg/dL Critically high 7.0-18.0 [facility] Comment on above: Performed By: #### B MP #### [facility] [address] [place] [address] Dr. Mason Astudillo Urea nitrogen/Creatinine [Mass ratio] 23.8 mg/mg Normal [facility] Comment on above: Performed By: #### B MP #### [facility] [address] [place] [address] Dr. Mason Astudillo TYPE AND SCREENon 02-03-2022 TYPE AND SCREEN Negative Normal [facility] Comment on above: Performed By: #### T NS #### [facility] [address] [place] [address] Dr. Mason Astudillo BNPon 02-02-2022 Natriuretic peptide B (Bld) [Mass/Vol] 154.0 pg/mL Normal <=1,800.0 [facility] Comment on above: Performed By: #### P SAD #### [facility] [address] [place] [address] Dr. Mason Astudillo CARDIAC ANJELICA ADMITon 022 CK [Catalytic activity/Vol] 256 U/L Normal 39-308 [facility] Comment on above: Performed By: #### P OCGLUC #### [facility] [address] [place] [address] Dr. Mason Astudillo CK.MB [Mass/Vol] 3.30 ng/mL Normal <=3.60 [facility] Comment on above: Performed By: #### P OCGLUC #### [facility] [address] [place] [address] Dr. Mason Astudillo HSTROP 19.1 pg/mL Normal 4.0-76.1 [facility] Comment on above: Result Comment: CUT- OFF POINTS HAVE BEEN ESTABLISHED BASED ON THE FOURTH UNIVERSAL DEFINITIONS OF MYOCARDIAL INFARCTION. THE UPPER REFERENCE LIMIT (URL) OF TROPONIN, DEFINED THE 99TH PERCENTILE OF cTnI DISTRIBUTION IN A REFERENCE POPULATION, HAS BEEN CONFIRMED THE DECISION THRESHOLD FOR NM DIAGNOSIS. Performed By: #### P OCGLUC #### [facility] [address] [place] [address] Dr. Mason Astudillo ABDELRAHMAN 304 ng/mL Critically high 16-96 [facility] Comment on above: Performed By: #### P OCGLUC #### [facility] [address] [place] [address] Dr. Mason Astudillo CBC AUTO DIFFon 02-02-2022 BASO # 0.0 103/ul Normal 0.0-0.1 [facility] Comment on above: Performed By: #### C BC #### [facility] [address] [place] [address] Dr. Mason Astudillo Basophils/100 WBC (Bld) 0.5 % Normal 0.2-2.0 [facility] Comment on above: Performed By: #### C BC #### [facility] [address] [place] [address] Dr. Mason Astudillo EO # 0.2 103/ul Normal 0.0-0.7 [facility] Comment on above: Performed By: #### C BC #### [facility] [address] [place] [address] Dr. Mason Astudillo Eosinophils/100 WBC (Bld) 2.4 % Normal 0.9-7.0 [facility] Comment on above: Performed By: #### C BC #### [facility] [address] [place] [address] Dr. Mason Astudillo Erythrocyte distribution width (RBC) [Ratio] 15.9 % Critically high 11.0-15.0 [facility] Comment on above: Performed By: #### C BC #### [facility] [address] [place] [address] Dr. Mason Astudillo Hematocrit (Bld) [Volume fraction] 27.9 % Critically low 42.0-54.0 [facility] Comment on above: Performed By: #### C BC #### [facility] [address] [place] [address] Dr. Mason Astudillo Hemoglobin (Bld) [Mass/Vol] 8.7 g/dL Critically low 14.0-18.0 [facility] Comment on above: Performed By: #### C BC #### [facility] [address] [place] [address] Dr. Mason Astudillo IG # 0.04 10e3/ul Critically high 0.00-0.03 [facility] Comment on above: Performed By: #### C BC #### [facility] [address] [place] [address] Dr. Mason Astudillo IG % 0.6 % Critically high 0.0-0.5 [facility] Comment on above: Performed By: #### C BC #### [facility] [address] [place] [address] Dr. Mason Astudillo LYMPH # 1.3 103/ul Normal 1.2-3.8 [facility] Comment on above: Performed By: #### C BC #### [facility] [address] [place] [address] Dr. Mason Astudillo Lymphocytes/100 WBC (Bld) 20.1 % Critically low 20.5-60.0 [facility] Comment on above: Performed By: #### C BC #### [facility] [address] [place] [address] Dr. Mason Astudillo MANUAL DIFF REQ NO Normal [facility] Comment on above: Performed By: #### C BC #### [facility] [address] [place] [address] Dr. Mason Astudillo MCH (RBC) [Entitic mass] 26.1 pg Normal 25.9-34.0 [facility] Comment on above: Performed By: #### C BC #### [facility] [address] [place] [address] Dr. Mason Astudillo MCHC (RBC) [Mass/Vol] 31.2 g/dL Normal 29.9-35.2 [facility] Comment on above: Performed By: #### C BC #### [facility] [address] [place] [address] Dr. Mason Astudillo MCV (RBC) [Entitic vol] 83.8 fL Normal 80.0-94.0 [facility] Comment on above: Performed By: #### C BC #### [facility] [address] [place] [address] Dr. Mason Astudillo MONO # 0.7 103/ul Normal 0.3-0.8 [facility] Comment on above: Performed By: #### C BC #### [facility] [address] [place] [address] Dr. Mason Astudillo Monocytes/100 WBC (Bld) 11.1 % Normal 1.7-12.0 [facility] Comment on above: Performed By: #### C BC #### [facility] [address] [place] [address] Dr. Mason Astudillo NEUT # 4.1 103/ul Normal 1.4-6.5 [facility] Comment on above: Performed By: #### C BC #### [facility] [address] [place] [address] Dr. Mason Astudillo Neutrophils/100 WBC (Bld) 65.3 % Normal 43.0-75.0 [facility] Comment on above: Performed By: #### C BC #### [facility] [address] [place] [address] Dr. Mason Astudillo Platelet mean volume (Bld) [Entitic vol] 10.3 fL Normal 9.5-13.5 [facility] Comment on above: Performed By: #### C BC #### [facility] [address] [place] [address] Dr. Mason Astudillo PLT 145 103/ul Critically low 150-450 [facility] Comment on above: Performed By: #### C BC #### [facility] [address] [address] [address] Mason Astudillo RBC 3.33 106/ul Critically low 4.70-6.10 [facility] Comment on above: Performed By: #### C BC #### [facility] [address] [address] [address] Mason Astudillo WBC 6.2 103/ul Normal 4.0-11.0 [facility] Comment on above: Performed By: #### C BC #### [facility] [address] [address] [address] Mason Astudillo Covid-19 PCR ([facility])on 01-06 SARS-CoV-2 (COVID-19) RNA GARCÍA+probe Ql (Unsp spec) Not detected Normal NOT DETECTED [facility] Comment on above: Result Comment: When [...] for this test is supported by the Swimming Coach Or Instructor of Health and Human Service's declaration that [...] used). Performed By: #### A 1C #### [facility] [address] [place] [address] Dr. Mason Astudillo FREE T3on 02-02-2022 FREE T3 2.16 pg/mlL Critically low 2.18-3.98 [facility] Comment on above: Performed By: #### P SAD #### [facility] [address] [place] [address] Dr. Mason Astudillo FREE T4on 02-02-2022 Free T4 [Mass/Vol] 1.09 ng/dL Normal 0.76-1.46 [facility] Comment on above: Performed By: #### F T4 #### [facility] [address] [place] [address] Dr. Mason Astudillo GLYCOHEMOGLOBIN A1Con 2021 ADA RECOMMENDATION SEE BELOW Normal [facility] Comment on above: Result Comment: ADA RECOMMENDED LIMIT 4.0 - 6.0 ADA THERAPEUTIC TARGET < 7.0 ACTION SUGGESTED > 7.0 Performed By: #### A 1C #### [facility] [address] [place] [address] Dr. Mason Astudillo Glucose [Mass/Vol] 160 mg/dL Normal [facility] Comment on above: Performed By: #### A 1C #### [facility] [address] [place] [address] Dr. Mason Astudillo HbA1c (Bld) [Mass fraction] 7.2 % Critically high 4.5-6.2 [facility] Comment on above: Performed By: #### A 1C #### [facility] [address] [place] [address] Dr. Mason Astudillo MAGNESIUMon 02-02-2022 Magnesium [Mass/Vol] 2.1 mg/dL Normal 1.8-2.4 [facility] Comment on above: Performed By: #### P SAD #### [facility] [address] [place] [address] Dr. Mason Astudillo POINT OF CARE GLUCOSEon 01-06 Glucose [Mass/Vol] 226 mg/dL Critically high 74-106 [facility] Comment on above: Performed By: #### C BC #### [facility] [address] [place] [address] Dr. Mason Astudillo Glucose [Mass/Vol] 249 mg/dL Critically high 74-106 [facility] Comment on above: Performed By: #### C BC #### [facility] [address] [place] [address] Dr. Mason Astudillo Glucose [Mass/Vol] 195 mg/dL Critically high 74-106 T [facility] Comment on above: Performed By: #### P SAD #### [facility] [address] [place] [address] Dr. Mason Astudillo PROF CHEM 8 (BAS METB)on Anion gap [Moles/Vol] 12.6 mmol/L Normal [facility] Comment on above: Performed By: #### P OCGLUC #### [facility] [address] [address] [address] Mason Astudillo Calcium [Mass/Vol] 8.1 mg/dL Critically low 8.5-10.1 [facility] Comment on above: Performed By: #### P OCGLUC #### [facility] [address] [place] [address] Dr. Mason Astudillo Chloride [Moles/Vol] 101 mmol/L Normal 98-107 [facility] Comment on above: Performed By: #### P OCGLUC #### [facility] [address] [place] [address] Dr. Mason Astudillo CO2 [Moles/Vol] 29.4 mmol/L Normal 21.0-32.0 [facility] Comment on above: Performed By: #### P OCGLUC #### [facility] [address] [place] [address] Dr. Mason Astudillo Creatinine [Mass/Vol] 1.68 mg/dL Critically high 0.70-1.30 [facility] Comment on above: Performed By: #### P OCGLUC #### [facility] [address] [place] [address] Dr. Mason Astudillo EGFR-AF ENGLISH 47 mL/min/1.73m2 Critically low >=60 [facility] Comment on above: Result Comment: Prev iously reported as: (blank) On 02/02/2022 06:30 By [facility] Performed By: #### P OCGLUC #### [facility] [address] [place] [address] Dr. Mason Astudillo EGFR-NON AF ENGLISH 39 mL/min/1.73m2 Critically low >=60 [facility] Comment on above: Result Comment: Prev iously reported as: (blank) On 02/02/2022 06:30 By [email or web address] Performed By: #### P OCGLUC #### [facility] [address] [place] [address] Dr. Mason Astudillo Glucose [Mass/Vol] 264 mg/dL Critically high 74-106 [facility] Comment on above: Performed By: #### P OCGLUC #### [facility] [address] [address] [address] Mason Astudillo Potassium [Moles/Vol] 3.0 mmol/L Critically low 3.5-5.1 [facility] Comment on above: Performed By: #### P OCGLUC #### [facility] [address] [place] [address] Dr. Mason Astudillo Sodium [Moles/Vol] 140 mmol/L Normal 136-145 [facility] Comment on above: Performed By: #### P OCGLUC #### [facility] [address] [place] [address] Dr. Mason Astudillo Urea nitrogen [Mass/Vol] 45.0 mg/dL Critically high 7.0-18.0 [facility] Comment on above: Performed By: #### P OCGLUC #### [facility] [address] [place] [address] Dr. Mason Astudillo Urea nitrogen/Creatinine [Mass ratio] 26.8 mg/mg Normal [facility] Comment on above: Performed By: #### P OCGLUC #### [facility] [address] [place] [address] Dr. Mason Astudillo TROPONIN, HIGH SENSITIVITYon 02-02-2022 HSTROP 81.7 pg/mL Critically high 4.0-76.1 [facility] Comment on above: Result Comment: CUT- OFF POINTS HAVE BEEN ESTABLISHED BASED ON THE FOURTH UNIVERSAL DEFINITIONS OF MYOCARDIAL INFARCTION. THE UPPER REFERENCE LIMIT (URL) OF TROPONIN, DEFINED THE 99TH PERCENTILE OF cTnI DISTRIBUTION IN A REFERENCE POPULATION, HAS BEEN CONFIRMED THE DECISION THRESHOLD FOR NM DIAGNOSIS. repeated Performed By: #### B MP #### [facility] [address] [place] [address] Dr. Mason Astudillo TSHon 02-02-2022 TSH 1.200 uIU/mL Normal 0.358-3.740 [facility] Comment on above: Performed By: #### C BC #### [facility] [address] [address] [address] Mason Astudillo XR CHEST 1 Von [...] CARMINA LOVE Date: 2022-02-02 06:45 Normal [facility] RENAL FUNCTION PANELon 01-11 Albumin [Mass/Vol] 3.7 g/dL Normal 3.4-5.0 [facility] Comment on above: Performed By: #### P OCGLUC #### [facility] [address] [place] [address] Dr. Mason Astudillo Calcium [Mass/Vol] 8.6 mg/dL Normal 8.5-10.1 [facility] Comment on above: Performed By: #### P OCGLUC #### [facility] [address] [place] [address] Dr. Mason Astudillo Chloride [Moles/Vol] 104 mmol/L Normal 98-107 [facility] Comment on above: Performed By: #### P OCGLUC #### [facility] [address] [address] [address] Mason Astudillo CO2 [Moles/Vol] 28.0 mmol/L Normal 21.0-32.0 [facility] Comment on above: Performed By: #### P OCGLUC #### [facility] [address] [place] [address] Dr. Mason Astudillo Creatinine [Mass/Vol] 1.25 mg/dL Normal 0.70-1.30 [facility] Comment on above: Performed By: #### P OCGLUC #### [facility] [address] [address] [address] Mason Astudillo EGFR-AF ENGLISH >60 Normal >=60 [facility] Comment on above: Performed By: #### P OCGLUC #### [facility] [address] [address] [address] Mason Astudillo EGFR-NON AF ENGLISH 55 mL/min/1.73m2 Critically low >=60 [facility] Comment on above: Performed By: #### P OCGLUC #### [facility] [address] [address] [address] Mason Astudillo Glucose [Mass/Vol] 143 mg/dL Critically high 74-106 [facility] Comment on above: Performed By: #### P OCGLUC #### [facility] [address] [address] [address] Mason Astudillo Phosphate [Mass/Vol] 2.9 mg/dL Normal 2.6-4.7 [facility] Comment on above: Performed By: #### P OCGLUC #### [facility] [address] [address] [address] Mason Astudillo Potassium [Moles/Vol] 3.6 mmol/L Normal 3.5-5.1 [facility] Comment on above: Performed By: #### P OCGLUC #### [facility] [address] [place] [address] Dr. Mason Astudillo Sodium [Moles/Vol] 142 mmol/L Normal 136-145 [facility] Comment on above: Performed By: #### P OCGLUC #### [facility] [address] [address] [address] Mason Astudillo Urea nitrogen [Mass/Vol] 19.0 mg/dL Critically high 7.0-18.0 [facility] Comment on above: Performed By: #### P OCGLUC #### [facility] [address] [place] [address] Dr. Mason Astudillo UA RANDOMon 01-11-2022 Bilirubin Ql (U) Negative Normal NEGATIVE [facility] Comment on above: Performed By: #### U A #### [facility] [address] [address] [address] Mason Astudillo Clarity (U) CLEAR Normal CLEAR [facility] Comment on above: Performed By: #### U A #### [facility] [address] [place] [address] Dr. Mason Astudillo Color (U) LT. YELLOW Normal YELLOW [facility] Comment on above: Performed By: #### U A #### [facility] [address] [place] [address] Dr. Mason Astudillo Glucose Ql (U) >1000 Abnormal NEGATIVE [facility] Comment on above: Performed By: #### U A #### [facility] [address] [place] [address] Dr. Mason Astudillo Hemoglobin Ql (U) Negative Normal NEGATIVE [facility] Comment on above: Performed By: #### U A #### [facility] [address] [place] [address] Dr. Mason Astudillo Ketones Ql (U) Negative Normal NEGATIVE [facility] Comment on above: Performed By: #### U A #### [facility] [address] [place] [address] Dr. Mason Astudillo LEUKOCYTES Negative Normal NEGATIVE [facility] Comment on above: Performed By: #### U A #### [facility] [address] [place] [address] Dr. Mason Astudillo Nitrite Ql (U) Negative Normal NEGATIVE [facility] Comment on above: Performed By: #### U A #### [facility] [address] [place] [address] Dr. Mason Astudillo pH (U) 6.5 [pH] Normal 5-9 [facility] Comment on above: Performed By: #### U A #### [facility] [address] [place] [address] Dr. Mason Astudillo SPEC GRAVITY 1.010 Normal 1.005-<=1.0 25 [facility] Comment on above: Performed By: #### U A #### [facility] [address] [place] [address] Dr. Mason Astudillo UA PROTEIN Negative Normal NEGATIVE/ TRACE [facility] Comment on above: Performed By: #### U A #### [facility] [address] [address] [address] Mason Astudillo Urobilinogen Qn (U) 0.2 {Lewis'U}/dL Normal 0.2 - 1. 0 [facility] Comment on above: Performed By: #### U A #### [facility] [address] [address] [address] Mason Astudillo URINE T PROTEIN CREAT RATIOo n 01-11-2022 Protein (U) [Mass/Vol] 23.7 mg/dL Critically high <=12.0 [facility] Comment on above: Performed By: #### A 1C #### [facility] [address] [address] [address] Mason Astudillo UR PROT CREAT RAT 0.20 Normal [facility] Comment on above: Performed By: #### A 1C #### [facility] [address] [place] [address] Dr. Mason Astudillo URINE CREAT 115.99 mg/dL Normal 20.00-300.0 0 [facility] Comment on above: Performed By: #### A 1C #### [facility] [address] [address] [address] Mason Astudillo US KIDNEYSon 01-09-2022 US KIDNEYS [facility]AM[facility]: Hypertensive heart disease without [...] BRISA SALAS Date: 2022-01-09 17:44 Normal [facility] FOLATE ([facility])on 2 Folate 11.0 ng/mL Normal >3.0 [facility] Comment on above: Result Comment: A se rum folate concentration of less than 3.1 ng/mL is considered to represent clinical deficiency. Performed By: #### P SAD #### [facility] [address] [place] [address] Dr. Mason Astudillo TRANSFERRINon 12-20-2021 Transferrin [Mass/Vol] 316 mg/dL Critically high 149-313 [facility] Comment on above: Performed By: #### A 1C #### [facility] [address] [place] [address] Dr. Mason Astudillo CBC AUTO DIFFon 12-18-2021 BASO # 0.0 103/ul Normal 0.0-0.1 [facility] Comment on above: Performed By: #### U A #### [facility] [address] [place] [address] Dr. Mason Astudillo Basophils/100 WBC (Bld) 0.3 % Normal 0.2-2.0 [facility] Comment on above: Performed By: #### U A #### [facility] [address] [place] [address] Dr. Mason Astudillo EO # 0.1 103/ul Normal 0.0-0.7 [facility] Comment on above: Performed By: #### U A #### [facility] [address] [place] [address] Dr. Mason Astudillo Eosinophils/100 WBC (Bld) 2.0 % Normal 0.9-7.0 [facility] Comment on above: Performed By: #### U A #### [facility] [address] [place] [address] Dr. Mason Astudillo Erythrocyte distribution width (RBC) [Ratio] 14.6 % Normal 11.0-15.0 [facility] Comment on above: Performed By: #### U A #### [facility] [address] [place] [address] Dr. Mason Astudillo Hematocrit (Bld) [Volume fraction] 35.6 % Critically low 42.0-54.0 [facility] Comment on above: Performed By: #### U A #### [facility] [address] [place] [address] Dr. Mason Astudillo Hemoglobin (Bld) [Mass/Vol] 10.7 g/dL Critically low 14.0-18.0 [facility] Comment on above: Performed By: #### U A #### [facility] [address] [place] [address] Dr. Mason Astudillo IG # 0.03 10e3/ul Normal 0.00-0.03 [facility] Comment on above: Performed By: #### U A #### [facility] [address] [place] [address] Dr. Mason Astudillo IG % 0.5 % Normal 0.0-0.5 [facility] Comment on above: Performed By: #### U A #### [facility] [address] [place] [address] Dr. Mason Astudillo LYMPH # 1.0 103/ul Critically low 1.2-3.8 [facility] Comment on above: Performed By: #### U A #### [facility] [address] [place] [address] Dr. Mason Astudillo Lymphocytes/100 WBC (Bld) 15.5 % Critically low 20.5-60.0 [facility] Comment on above: Performed By: #### U A #### [facility] [address] [place] [address] Dr. Mason Astudillo MANUAL DIFF REQ NO Normal [facility] Comment on above: Performed By: #### U A #### [facility] [address] [place] [address] Dr. Mason Astudillo MCH (RBC) [Entitic mass] 27.4 pg Normal 25.9-34.0 [facility] Comment on above: Performed By: #### U A #### [facility] [address] [address] [address] Mason Astudillo MCHC (RBC) [Mass/Vol] 30.1 g/dL Normal 29.9-35.2 [facility] Comment on above: Performed By: #### U A #### [facility] [address] [address] [address] Mason Astudillo MCV (RBC) [Entitic vol] 91.0 fL Normal 80.0-94.0 [facility] Comment on above: Performed By: #### U A #### [facility] [address] [address] [address] Mason Astudillo MONO # 0.5 103/ul Normal 0.3-0.8 [facility] Comment on above: Performed By: #### U A #### [facility] [address] [place] [address] Dr. Mason Astudillo Monocytes/100 WBC (Bld) 8.1 % Normal 1.7-12.0 [facility] Comment on above: Performed By: #### U A #### [facility] [address] [address] [address] Mason Astudillo NEUT # 4.5 103/ul Normal 1.4-6.5 [facility] Comment on above: Performed By: #### U A #### [facility] [address] [address] [address] Mason Astudillo Neutrophils/100 WBC (Bld) 73.6 % Normal 43.0-75.0 [facility] Comment on above: Performed By: #### U A #### [facility] [address] [address] [address] Mason Astudillo Platelet mean volume (Bld) [Entitic vol] 10.1 fL Normal 9.5-13.5 [facility] Comment on above: Performed By: #### U A #### [facility] [address] [address] [address] Mason Astudillo PLT 138 103/ul Critically low 150-450 [facility] Comment on above: Performed By: #### U A #### [facility] [address] [address] [address] Mason Astudillo RBC 3.91 106/ul Critically low 4.70-6.10 [facility] Comment on above: Performed By: #### U A #### [facility] [address] [address] [address] Mason Astudillo WBC 6.1 103/ul Normal 4.0-11.0 [facility] Comment on above: Performed By: #### U A #### [facility] [address] [place] [address] Dr. Mason Astudillo FERRITINon 12-18-2021 Ferritin [Mass/Vol] 16.0 ng/mL Critically low 26.0-388.0 [facility] Comment on above: Performed By: #### P OCGLUC #### [facility] [address] [place] [address] Dr. Mason Astudillo GLYCOHEMOGLOBIN A1Con 2021 ADA RECOMMENDATION SEE BELOW Normal [facility] Comment on above: Result Comment: ADA RECOMMENDED LIMIT 4.0 - 6.0 ADA THERAPEUTIC TARGET < 7.0 ACTION SUGGESTED > 7.0 Performed By: #### C BC #### [facility] [address] [place] [address] Dr. Mason Astudillo Glucose [Mass/Vol] 140 mg/dL Normal [facility] Comment on above: Performed By: #### C BC #### [facility] [address] [place] [address] Dr. Mason Astudillo HbA1c (Bld) [Mass fraction] 6.5 % Critically high 4.5-6.2 [facility] Comment on above: Performed By: #### C BC #### [facility] [address] [place] [address] Dr. Mason Astudillo IRON AND TIBCon 12-18-2021 % SATURATION 5.7 % Normal [facility] Comment on above: Performed By: #### P OCGLUC #### [facility] [address] [place] [address] Dr. Mason Astudillo Iron [Mass/Vol] 23.0 ug/dL Critically low 65.0-175.0 [facility] Comment on above: Performed By: #### P OCGLUC #### [facility] [address] [address] [address] Mason Astudillo TIBC DIRECT 413.0 ug/dL Normal 250.0-450.0 [facility] Comment on above: Performed By: #### P OCGLUC #### [facility] [address] [place] [address] Dr. Mason Astudillo PROF CHEM 8 (BAS METB)on Anion gap [Moles/Vol] 13.7 mmol/L Normal [facility] Comment on above: Performed By: #### P SAD #### [facility] [address] [place] [address] Dr. Mason Astudillo Calcium [Mass/Vol] 8.2 mg/dL Critically low 8.5-10.1 [facility] Comment on above: Performed By: #### P SAD #### [facility] [address] [place] [address] Dr. Mason Astudillo Chloride [Moles/Vol] 105 mmol/L Normal 98-107 [facility] Comment on above: Performed By: #### P SAD #### [facility] [address] [place] [address] Dr. Mason Astudillo CO2 [Moles/Vol] 27.1 mmol/L Normal 21.0-32.0 [facility] Comment on above: Performed By: #### P SAD #### [facility] [address] [place] [address] Dr. Mason Astudillo Creatinine [Mass/Vol] 1.32 mg/dL Critically high 0.70-1.30 [facility] Comment on above: Performed By: #### P SAD #### [facility] [address] [place] [address] Dr. Mason Astudillo EGFR-AF ENGLISH >60 Normal >=60 [facility] Comment on above: Performed By: #### P SAD #### [facility] [address] [place] [address] Dr. Mason Astudillo EGFR-NON AF ENGLISH 52 mL/min/1.73m2 Critically low >=60 [facility] Comment on above: Performed By: #### P SAD #### [facility] [address] [address] [address] Mason Astudillo Glucose [Mass/Vol] 121 mg/dL Critically high 74-106 [facility] Comment on above: Performed By: #### P SAD #### [facility] [address] [address] [address] Mason Astudillo Potassium [Moles/Vol] 3.8 mmol/L Normal 3.5-5.1 [facility] Comment on above: Performed By: #### P SAD #### [facility] [address] [place] [address] Dr. Mason Astudillo Sodium [Moles/Vol] 142 mmol/L Normal 136-145 [facility] Comment on above: Performed By: #### P SAD #### [facility] [address] [place] [address] Dr. Mason Astudillo Urea nitrogen [Mass/Vol] 27.0 mg/dL Critically high 7.0-18.0 [facility] Comment on above: Performed By: #### P SAD #### [facility] [address] [place] [address] Dr. Mason Astudillo Urea nitrogen/Creatinine [Mass ratio] 20.5 mg/mg Normal [facility] Comment on above: Performed By: #### P SAD #### [facility] [address] [place] [address] Dr. Mason Astudillo VITAMIN B12on 12-18-2021 Cobalamin (Vitamin B12) [Mass/Vol] 423.0 pg/mL Normal 193.0-986.0 [facility] Comment on above: Performed By: #### P OCGLUC #### [facility] [address] [place] [address] Dr. Mason Astudillo CBC AUTO DIFFon 11-08-2021 BASO # 0.0 103/ul Normal 0.0-0.1 [facility] Comment on above: Performed By: #### U A #### [facility] [address] [place] [address] Dr. Mason Astudillo Basophils/100 WBC (Bld) 0.3 % Normal 0.2-2.0 [facility] Comment on above: Performed By: #### U A #### [facility] [address] [place] [address] Dr. Mason Astudillo EO # 0.2 103/ul Normal 0.0-0.7 [facility] Comment on above: Performed By: #### U A #### [facility] [address] [place] [address] Dr. Mason Astudillo Eosinophils/100 WBC (Bld) 2.6 % Normal 0.9-7.0 [facility] Comment on above: Performed By: #### U A #### [facility] [address] [place] [address] Dr. Mason Astudillo Erythrocyte distribution width (RBC) [Ratio] 15.1 % Critically high 11.0-15.0 [facility] Comment on above: Performed By: #### U A #### [facility] [address] [place] [address] Dr. Mason Astudillo Hematocrit (Bld) [Volume fraction] 36.2 % Critically low 42.0-54.0 [facility] Comment on above: Performed By: #### U A #### [facility] [address] [place] [address] Dr. Mason Astudillo Hemoglobin (Bld) [Mass/Vol] 11.7 g/dL Critically low 14.0-18.0 [facility] Comment on above: Performed By: #### U A #### [facility] [address] [place] [address] Dr. Mason Astudillo IG # 0.04 10e3/ul Critically high 0.00-0.03 [facility] Comment on above: Performed By: #### U A #### [facility] [address] [place] [address] Dr. Mason Astudillo IG % 0.7 % Critically high 0.0-0.5 [facility] Comment on above: Performed By: #### U A #### [facility] [address] [place] [address] Dr. Mason Astudillo LYMPH # 0.9 103/ul Critically low 1.2-3.8 [facility] Comment on above: Performed By: #### U A #### [facility] [address] [place] [address] Dr. Mason Astudillo Lymphocytes/100 WBC (Bld) 14.4 % Critically low 20.5-60.0 [facility] Comment on above: Performed By: #### U A #### [facility] [address] [place] [address] Dr. Mason Astudillo MANUAL DIFF REQ NO Normal [facility] Comment on above: Performed By: #### U A #### [facility] [address] [place] [address] Dr. Mason Astudillo MCH (RBC) [Entitic mass] 29.8 pg Normal 25.9-34.0 [facility] Comment on above: Performed By: #### U A #### [facility] [address] [place] [address] Dr. Mason Astudillo MCHC (RBC) [Mass/Vol] 32.3 g/dL Normal 29.9-35.2 [facility] Comment on above: Performed By: #### U A #### [facility] [address] [place] [address] Dr. Mason Astudillo MCV (RBC) [Entitic vol] 92.3 fL Normal 80.0-94.0 [facility] Comment on above: Performed By: #### U A #### [facility] [address] [place] [address] Dr. Mason Astudillo MONO # 0.5 103/ul Normal 0.3-0.8 [facility] Comment on above: Performed By: #### U A #### [facility] [address] [place] [address] Dr. Mason Astudillo Monocytes/100 WBC (Bld) 7.5 % Normal 1.7-12.0 [facility] Comment on above: Performed By: #### U A #### [facility] [address] [place] [address] Dr. Mason Astudillo NEUT # 4.5 103/ul Normal 1.4-6.5 [facility] Comment on above: Performed By: #### U A #### [facility] [address] [address] [address] Mason Astudillo Neutrophils/100 WBC (Bld) 74.5 % Normal 43.0-75.0 [facility] Comment on above: Performed By: #### U A #### [facility] [address] [address] [address] Mason Astudillo Platelet mean volume (Bld) [Entitic vol] 10.1 fL Normal 9.5-13.5 [facility] Comment on above: Performed By: #### U A #### [facility] [address] [place] [address] Dr. Mason Astudillo PLT 132 103/ul Critically low 150-450 [facility] Comment on above: Performed By: #### U A #### [facility] [address] [place] [address] Dr. Mason Astudillo RBC 3.92 106/ul Critically low 4.70-6.10 [facility] Comment on above: Performed By: #### U A #### [facility] [address] [address] [address] Mason Astudillo WBC 6.0 103/ul Normal 4.0-11.0 [facility] Comment on above: Performed By: #### U A #### [facility] [address] [place] [address] Dr. Mason Astudillo PROF CHEM 8 (BAS METB)on Anion gap [Moles/Vol] 8.9 mmol/L Normal [facility] Comment on above: Performed By: #### B MP #### [facility] [address] [place] [address] Dr. Mason Astudillo Calcium [Mass/Vol] 7.9 mg/dL Critically low 8.5-10.1 [facility] Comment on above: Performed By: #### B MP #### [facility] [address] [place] [address] Dr. Mason Astudillo Chloride [Moles/Vol] 101 mmol/L Normal 98-107 [facility] Comment on above: Performed By: #### B MP #### [facility] [address] [address] [address] Mason Astudillo CO2 [Moles/Vol] 28.3 mmol/L Normal 21.0-32.0 [facility] Comment on above: Performed By: #### B MP #### [facility] [address] [address] [address] Mason Astudillo Creatinine [Mass/Vol] 1.22 mg/dL Normal 0.70-1.30 [facility] Comment on above: Performed By: #### B MP #### [facility] [address] [address] [address] Mason Astudillo EGFR-AF ENGLISH >60 Normal >=60 [facility] Comment on above: Performed By: #### B MP #### [facility] [address] [address] [address] Mason Astudillo EGFR-NON AF ENGLISH 57 mL/min/1.73m2 Critically low >=60 [facility] Comment on above: Performed By: #### B MP #### [facility] [address] [address] [address] Mason Astudillo Glucose [Mass/Vol] 167 mg/dL Critically high 74-106 [facility] Comment on above: Performed By: #### B MP #### [facility] [address] [address] [address] Mason Astudillo Potassium [Moles/Vol] 3.2 mmol/L Critically low 3.5-5.1 [facility] Comment on above: Performed By: #### B MP #### [facility] [address] [address] [address] Mason Astudillo Sodium [Moles/Vol] 135 mmol/L Critically low 136-145 [facility] Comment on above: Performed By: #### B MP #### [facility] [address] [address] [address] Mason Astudillo Urea nitrogen [Mass/Vol] 23.0 mg/dL Critically high 7.0-18.0 [facility] Comment on above: Performed By: #### B MP #### [facility] [address] [place], [place] [address] Dr. Mason Astudillo Urea nitrogen/Creatinine [Mass ratio] 18.9 mg/mg Normal [facility] Comment on above: Performed By: #### B MP #### [facility] [address] [place], [place] [address] Dr. Mason Astudillo XR CHEST 2 Von [...] by: BRITTANIE CASILLAS Date: 2021-11-08 14:01 Normal [facility] Vital Signs Date Time Vital Sign Value Performing Clinician Facility 12-23-2022 13:13-0400 Blood Pressure Location Mekhi VERGARA [facility] 12-23-2022 13:13-0400 Diastolic blood pressure 68 mm[Hg] Mekhi EVRGARA [facility] 12-23-2022 13:13-0400 Heart rate 70 /min Mekhi VERGARA [facility] 12-23-2022 13:13-0400 Systolic blood pressure 120 mm[Hg] Mekhi VERGARA [facility] 05-10-2022 10:43-0400 Body height 177.8 cm Pacc 6 Work Phone: [facility] 05-10-2022 10:43-0400 Body temperature 97.81 [degF] Pacc 6 Work Phone: [facility] 05-10-2022 10:43-0400 Body weight 86.18 kg Pacc 6 Work Phone: [facility] 05-10-2022 10:43-0400 Diastolic blood pressure 75 mm[Hg] Pacc 6 Work Phone: [facility] 05-10-2022 10:43-0400 Heart rate 86 /min Pacc 6 Work Phone: [facility] 05-10-2022 10:43-0400 SaO2% (BldA) [Mass fraction] 97 % Pacc 6 Work Phone: [facility] 05-10-2022 10:43-0400 Systolic blood pressure 124 mm[Hg] Pacc 6 Work Phone: [facility] 04-22-2022 15:42-0400 Blood Pressure Location Mekhi VERGARA [facility] 04-22-2022 15:42-0400 Diastolic blood pressure 64 mm[Hg] Mekhi VERGARA [facility] 04-22-2022 15:42-0400 Heart rate 76 /min Mekhidominique VERGARA [facility] 04-22-2022 15:42-0400 Respiratory rate 60 /min Mekihdominique VERGARA [facility] 04-22-2022 15:42-0400 Systolic blood pressure 117 mm[Hg] Mekhi VERGARA [facility] 04-17-2022 12:55-0400 Body height 177.8 cm Tristin Wilcox MD, PhD Work Phone: [facility] 04-17-2022 12:55-0400 Body temperature 98.4 [degF] Tristin iWlcox MD, PhD Work Phone: [facility] 04-17-2022 12:55-0400 Body weight 86.18 kg Tristin Wilcox MD, PhD Work Phone: [facility] 04-17-2022 12:55-0400 Diastolic blood pressure 74 mm[Hg] Tristin Wilcox MD, PhD Work Phone: [facility] 04-17-2022 12:55-0400 Heart rate 70 /min Tristin Wilcox MD, PhD Work Phone: [facility] 04-17-2022 12:55-0400 Respiratory rate 16 /min Tristin Wilcox MD, PhD Work Phone: [facility] 04-17-2022 12:55-0400 SaO2% (BldA) [Mass fraction] 99 % Tristin Wilcox MD, PhD Work Phone: [facility] 04-17-2022 12:55-0400 Systolic blood pressure 127 mm[Hg] Tristin Wilcox MD, PhD Work Phone: [facility] 10-16-2021 14:39-0400 Blood Pressure Location Yenni N[facility] 10-16-2021 14:39-0400 Diastolic blood pressure 76 mm[Hg] Yenni NILL [facility] 10-16-2021 14:39-0400 Heart rate 68 /min Yenni NILL [facility] 10-16-2021 14:39-0400 Respiratory rate 16 /min Yenni NILL [facility] 10-16-2021 14:39-0400 Systolic blood pressure 106 mm[Hg] Yenni NILL [facility] Encounters Encounter Date Encounter Type Care Provider Facility Start: 07-03-2023 End: 07-03-2023 ambulatory LEXI Not Available Start: 06-20-2023 End: 06-21-2023 ambulatory Mekhi VERGARA Facility:[facility] Start: 06-18-2023 End: 06-18-2023 ambulatory SHAIKH YOLIPIETRO Not Available Start: 06-10-2023 ambulatory Mekhi VERGARA Facility :[facility] Start: 06-09-2023 End: 06-10-2023 ambulatory Mallorie Joy [...] Facility: [facility] Start: 03-24-2023 End: 03-25-2023 ambulatory Andju Vallesyttonya Joy MD Facility: [facility] Start: 03-07-2023 End: 03-07-2023 ambulatory [facility] Start: 02-03-2023 End: 02-04-2023 ambulatory Mallorie Vallesyttonya Joy MD Facility:[facility] Start: 12-23-2022 End: 12-24-2022 ambulatory [facility] VERGARA [facility] Start: 12-23-2022 End: 12-23-2022 Patient encounter procedure Mekhi VERGARA [facility] Start: 11-21-2022 ambulatory NARENDRANATH LAKSHMIPATHY . Facility: Start: 10-31-2022 ambulatory NARENDRANATH LAKSHMIPATHY . Facility: Start: 10-29-2022 End: 10-29-2022 ambulatory NARENDRANATH LAKSHMIPATHY . Facility:[facility] Start: 10-24-2022 End: 10-25-2022 ambulatory NARENDRANATH LAKSHMIPATHY . Facility: Start: 10-18-2022 End: 10-18-2022 ambulatory [facility] Start: 10-11-2022 End: 10-12-2022 ambulatory [facility] Start: 09-11-2022 End: 09-11-2022 ambulatory [facility] Start: 08-28-2022 Evaluation and manag ement of inpatient [facility] Start: 08-27-2022 Evaluation and manag ement of inpatient [facility] Start: 08-27-2022 End: 08-29-2022 Evaluation and management of inpatient [facility] Start: 08-20-2022 End: 08-21-2022 ambulatory NISHI [facility] Start: 08-20-2022 End: 08-20-2022 ambulatory [facility] Start: 08-16-2022 End: 08-17-2022 ambulatory [facility] Start: 08-06-2022 End: 08-07-2022 ambulatory Mekhi VERGARA [facility] Start: 08-06-2022 End: 08-06-2022 Patient encounter procedure Mekhi VERGARA [facility] Start: 08-05-2022 End: 08-05-2022 ambulatory [facility] Start: 07-30-2022 End: 07-31-[address] PAULINE WINSTON . Facility: Start: 07-09-2022 End: 07-09-2022 ambulatory SHAIKH Milena ELLIOTT Facility:[facility] Start: 06-25-2022 End: 06-26-2022 ambulatory SHAIKH Milena ELLIOTT Facility:[facility] Start: 06-24-2022 End: 06-24-2022 ambulatory MARITZA [facility] Start: 05-27-2022 End: 05-27-2022 ambulatory [facility] Start: 05-17-2022 End: 05-17-2022 ambulatory TRISTIN WILCOX Facility:[facility] Start: 05-16-2022 Telephone encounter Maria Luisa Garcia RN C olorectal Surgery Comment on above: [employer] [facility] Start: 05-10-2022 End: 05-11-2022 ambulatory TRISTIN WILCOX Facility:[facility] Start: 05-10-2022 Encounter for other preprocedural examination TRISTINPortillo WILCOX [facility] Start: 05-10-2022 End: 05-10-[address] Work Phone: Pre Anesthesia Comment on above: Pre-op evaluation (P rimary Dx); Type 2 diabetes mellitus without complication, without long-term current use of insulin (HCC); Radiculopathy, cervical region; Dementia in other diseases classified elsewhere, unspecified severity, without behavioral disturbance, psychotic disturbance, mood disturbance, and anxiety (HCC); Intracranial hemorrhage ([facility]); Essential (primary) hypertension; Sleep apnea, unspecified type; Chronic obstructive pulmonary disease, unspecified COPD type (HCC); Arteriosclerosis of coronary artery; PAF (paroxysmal atrial fibrillation) (HCC); History of DVT (deep vein thrombosis); Gastroesophageal reflux disease with esophagitis, unspecified whether hemorrhage; Chronic kidney disease, stage 4 (severe) ([facility]); Calculus of kidney; Hypothyroidism unspecified; Iron deficiency anemia due to chronic blood loss; History of prostate cancer; History of primary malignant neoplasm of urinary bladder; Gout, unspecified cause, unspecified chronicity, unspecified site Patient Education Start: 05-10-2022 End: 05-11-2022 ambulatory TRISTIN WILCOX Facility:[facility] Start: 05-10-2022 End: 05-10-2022 Admission to establishment Pacc Main 6 Work Phone: [facility] Start: 05-10-2022 End: 05-10-2022 Preprocedural examination done Pac Main 6 Work Phone: Pre Anesthesia Start: 05-09-2022 End: 05-10-2022 ambulatory DE LA O H FAWWAD Facility:[facility] Start: 05-01-2022 End: 05-01-2022 ambulatory FRANKY VERONICA Facility:[facility] Start: 04-25-2022 Telephone encounter Tristin Ruiz Colorectal Surgery Comment on above: Appointment Start: 04-24-2022 Telephone encounter Marika Crabtree Colorectal Surgery Comment on above: Broomcorn Sorter - O ther Start: 04-22-2022 End: 04-22-2022 Patient encounter procedure Mekhi VERGARA [facility] Start: 04-18-2022 End: 04-19-2022 ambulatory DE LA O H FAWWAD Facility:[facility] Start: 04-17-2022 End: 04-18-2022 ambulatory TRISTIN WILCOX Facility:[facility] Start: 04-17-2022 End: 04-17-2022 Patient encounter procedure Tristin Wilcox MD, PhD Work Phone: Colorectal Surgery Comment on above: Fourth degree hemorr hoids (Primary Dx) Start: 04-16-2022 End: 04-16-2022 ambulatory DE LA O H FAWWAD Facility:[facility] Start: 04-11-2022 End: 04-12-2022 ambulatory DE LA O H FAWWAD Facility:[facility] Start: 04-11-2022 End: 04-12-2022 ambulatory CALVIN Mraadiaga Facility:[facility] Start: 03-26-2022 End: 03-27-2022 ambulatory DE LA O H FAWWAD Facility:[facility] Start: 03-18-2022 End: 03-19-2022 ambulatory DE LA O H FAWWAD Facility:[facility] Start: 03-18-2022 End: 03-18-2022 ambulatory [facility] Start: 02-18-2022 End: 02-19-2022 ambulatory DE [...] End: 12-13-2021 Patient encounter procedure 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 [facility] [place] Start: 11-29-2021 End: 11-30-2021 ambulatory CALVIN MOREJON . Facility:[facility] Start: 11-27-2021 End: 11-27-2021 Patient encounter procedure 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 General Surgery Pratima/Faraz Waterman Start: 11-21-2021 End: 11-22-2021 ambulatory DE LA O Milena KENTWAD Facility:[facility] Start: 11-17-2021 ambulatory DE LA O H FALindseyWAD Facilit y:[facility]1 Start: 11-09-2021 Encounter for preprocedural cardiovascular examination DR YENNI STANLEY . [facility] Start: 11-09-2021 Encounter for preprocedural laboratory examination DR YENNI STANLEY . [facility] Start: 11-08-2021 End: 11-09-[address] NONE LISTED REQUEST Facility:[facility] Start: 11-08-2021 End: 11-09-2021 Encounter for preprocedural cardiovascular examination DR NONE LISTED REQUEST Facility:[facility] Start: 10-16-2021 End: 10-16-2021 Patient encounter procedure 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 General Surgery Nill/Faraz Waterman Start: 10-09-2021 End: 10-09-2021 Off-Site Iraida James [facility] Start: 01-20-2017 End: 01-21-2017 Ambulatory DEFAULT PHYSICIAN Facility:[facility] Procedures Date Procedure Procedure Detail Performing Clinician Start: 08-05-2022 Cystoscopy Mekhi VERGARA Start: 05-10-2022 Antibody screen TRISTINPortillo WILCOX Comment on above: Order Comment: Specimen Type: BLOOD SPEC IMENOrdering Facility: [facility] Address: [address] [place] [address] Performed By: #### T [id number] ####CC [facility] BLOOD BANKCLIA [id number] [address] Start: 05-09-2022 PSA screening SHAIKH LEXI Comment on above: Performed By: #### A1C #### [facility] [address] [place] [address] Dr. Mason Astudillo Start: 04-18-2022 PSA screening SHAIKH LEXI Comment on above: Performed By: #### PSAD #### [facility] [address] [place] [address] Dr. Mason Astudillo Start: 04-17-2022 Sigmoidoscopy flx [...] Start: 11-07-2022 Hemoglobin A1c/Hemoglobin.total in Blood HBA1C [facility] Start: 05-10-2022 End: 07-10-2022 Hemoglobin A1c in Blood [facility] Work Phone: Comment on above: Expected: 05/10/2022 , Expires: 07/10/2022 Start: 03-07-2022 Influenza vaccination INFLUENZA (#1) [facility] Start: 08-21-2021 COVID-19 VACCINE (4 - Booster for Moderna series) COVID-19 VACCINE (4 - Booster for Moderna series) [facility] Start: 07-07-2021 ADVANCE DIRECTIVE DISCUSSION ADVANCE DIRECTIVE DISCUSSION [facility] Start: 07-07-2021 DEPRESSION ASSESSMENT DEPRESSION ASS ESSMENT [facility] Start: 2001 PNEUMOCOCCAL: 65+ (1 - PCV) PNEUMOCOCCAL: 65+ (1 - PCV) [facility] Start: 1986 SHINGRIX VACCINE (1 of 2) SHINGRIX VACCINE (1 of 2) [facility] Start: 1981 DIABETES SCREEN DIABETES SCREEN [facility] Start: 12-17-1955 Urine microalbumin profile DTAP,TDAP,TD (1 - Tdap) [facility] Start: 1954 Hepatitis B surface antibody level LDL CHOLESTEROL [facility] Start: 1954 SPIROMETRY SPIROMETRY [facility] Start: 1946 3 comp foot exam completed DIABETIC FOOT EXAM [facility] Start: 1946 Hepatitis B screening URINE ALBUMIN:CREATININE RATIO [facility] Start: 1946 Hepatitis C antibody , confirmatory test DILATED RETINAL EXAM [facility] Start: 1942 PNEUMOCOCCAL: 65+ (1 - PCV) PNEUMOCOCCAL: 65+ (1 - PCV) [facility] Start: 1941 Hemoglobin A1c/Hemoglobin.total in Blood HBA1C [facility] Immunizations Immunization Date Immunization Notes Care Provider Boone horton 05-14-2022 influenza virus vacc ine, unspecified formulation Mekhidominique VERGARA [facility] 06-26-2021 SARS-CoV-2 (COVID-19 ) mRNA-1273 vaccine Mekhi VERGARA [facility] 04-06-2021 influenza virus vacc ine, unspecified formulation Iraida James [facility] 03-28-2021 influenza virus vacc ine, unspecified formulation Mekhi VERGARA [facility] 02-04-2021 influenza virus vacc ine, unspecified formulation Iraida James [facility] 09-12-2020 SARS-CoV-2 (COVID-19 ) mRNA-1273 vaccine Mekhidominique VERGARA [facility] 08-14-2020 SARS-CoV-2 (COVID-19 ) mRNA-1273 vaccine Mekhi VERGARA [facility] 05-25-2020 pneumococcal polysaccharide vaccine, 23 valent Mekhi VERGARA [facility] 05-25-2020 zoster vaccine recombinant Mekhi VERGARA [facility] 02-25-2020 influenza virus vacc ine, unspecified formulation Mekhi VERGARA [facility] 02-25-2020 zoster vaccine recombinant Mekhi VERGARA [facility] 05-11-2019 tetanus toxoid, redu nimesh diphtheria toxoid, and acellular pertussis vaccine, adsorbed Mekhi VERGARA [facility] 03-23-2019 influenza virus vacc ine, unspecified formulation Mekhi VERGARA [facility] 03-23-2019 pneumococcal conjuga te vaccine, 13 valent Mekhidominique VERGARA [facility] 04-30-2018 influenza virus vacc ine, unspecified formulation Mekhi VERGARA [facility] 02-13-2017 influenza virus vacc ine, unspecified formulation Mekhi VERGARA [facility] 04-19-2015 influenza virus vacc ine, unspecified formulation Mekhidominique VERGARA [facility] 04-19-2015 pneumococcal polysaccharide vaccine, 23 valent Mekhidominique VERGARA [facility] 04-13-2015 influenza virus vacc ine, unspecified formulation Mekhi VERGARA [facility] 04-22-2007 influenza, whole Mekhi PAUL THOMAS [facility] Payers Date Payer Category Payer Unknown 2022 Unknown [id number] 2013 Private Health Insurance [facility] AAR SUPPLEMENT [id number] 2013-Present [phone] [address] [place] [address] Indemnity [id number] 2001 Medicare [id number] 1959 Medicare [id number] 1959 Unknown [id number] 1936 Unknown [id number] 2.16.840.1.474853.3.579.2 .593 1936 Unknown [id number] 2.16.840.1.529753.3.579.2 .593 1936 Unknown [id number] 2.16.840.1.601866.3.579.2 .593 1936 Unknown [id number] 2.16.840.1.247073.3.579.2 .593 1936 Unknown [id number] 2.16.840.1.777299.3.579.2 .593 1936 Unknown [id number] 2.16.840.1.427809.3.579.2 .593 1936 Unknown [id number] 2.16.840.1.495932.3.579.2 .593 1936 Unknown [id number] 2.16.840.1.898643.3.579.2 .593 1936 Unknown [id number] 2.16.840.1.639596.3.579.2 .593 1936 Unknown [id number] 2.16.840.1.268189.3.579.2 .593 1936 Unknown [id number] 2.16.840.1.233316.3.579.2 .593 1936 Unknown [id number] 2.16.840.1.580046.3.579.2 .593 1936 Unknown [id number] 2.16.840.1.104677.3.579.2 .593 1936 Unknown [id number] 2.16.840.1.743792.3.579.2 .593 1936 Unknown [id number] 2.16.840.1.097754.3.579.2 .593 1936 Unknown [id number] 2.16.840.1.422062.3.579.2 .593 1936 Unknown [id number] 2.16.840.1.304776.3.579.2 .593 1936 Unknown [id number] 2.16.840.1.015899.3.579.2 .593 1936 Unknown [id number] 2.16.840.1.527815.3.579.2 .593 1936 Unknown [id number] 2.16.840.1.257647.3.579.2 .593 1936 Unknown [id number] 2.16.840.1.096433.3.579.2 .593 1936 Unknown [id number] 2.16.840.1.864203.3.579.2 .593 1936 Unknown [id number] 2.16.840.1.755563.3.579.2 .593 1936 Unknown [id number] 2.16.840.1.253912.3.579.2 .593 1936 Unknown [id number] 2.16.840.1.157445.3.579.2 .593 1936 Unknown [id number] 2.16.840.1.773561.3.579.2 .593 1936 Unknown [id number] 2.16.840.1.964544.3.579.2 .196 1936 Unknown [id number] 2.16.840.1.973211.3.579.2 .196 1936 Unknown [id number] 2.16.840.1.273032.3.579.2 .196 1936 Unknown [id number] 2.16.840.1.774394.3.579.2 .196 1936 Unknown [id number] 2.16.840.1.433287.3.579.2 .196 1936 Unknown [id number] 2.16.840.1.223362.3.579.2 .196 1936 Unknown [id number] 2.16.840.1.542166.3.579.2 .727 1936 Unknown [id number] 2.16.840.1.487342.3.579.2 .727 1936 Unknown [id number] 2.16.840.1.586130.3.579.2 .727 1936 Unknown [id number] 2.16.840.1.215209.3.579.2 .1259 1936 Unknown [id number] 2.16.840.1.743105.3.579.2 .1259 1936 Unknown [id number] 2.16.840.1.269755.3.579.2 .1259 1936 Unknown [id number] 2.16.840.1.902567.3.579.2 .1259 1936 Unknown [id number] 2.16.840.1.713808.3.579.2 .1259 Social History Date Type Detail Facility Start: 10-09-2021 End: 12-23-2022 Tobacco smoking status Never smoked tobacco (finding) [facility] Sex Assigned At Male [facility] Tobacco smoking status Never [facility] [place] Start: 04-17-2022 Tobacco use and exposure Smokeless tobacco non-user [facility] Start: 04-17-2022 End: 05-10-2022 Alcohol intake Current drinker of alcohol (finding) [facility] Start: 04-17-2022 Alcohol Comment very occasionally [facility] Start: 1935 Sex Assigned At Not on file [facility] Start: 04-07-2022 End: 05-10-2022 Exposure to SARS-CoV-2 (event) Not sure [facility] Start: 05-10-2022 Alcohol Comment [facility] Functional Status Date Assessment Result Facility 12-23-2022 Functional Status N/A [facility] 08-01-2022 Functional Status N/A [facility] 04-22-2022 Functional Status N/A [facility] Clinical Notes 10-09-2021 to 03-07-2023 Telephone Encounter [...] need for Antibiotic prophylaxis at this time [facility] 03-07-2023 Note Coronary artery dise ase is stable Continue GDMT- ASA, lipitor, metoprolol continue risk factor modifications- heart healthy diet, regular exercise as tolerated and continue all medications. [facility] 03-07-2023 Note Hypertension is well controlled Continue all meds [facility] 03-07-[address] [facility] 03-07-2023 Note [id number] VASc= 4 No anticoagulation s/p watchman implantation Rate remains controlled metoprolol and diltiazem [facility] 03-07-2023 Note Patient here for 6 m o follow up s/p Watchman implant. Doing ok from cardiac standpoint. Denies chest pain, SOB, and palpitations. Still on Plavix as of now. Review of Systems Cardiovascular: Positive for leg swelling. Hematologic/Lymphatic: Negative. Musculoskeletal: Positive for arthritis, back pain, joint pain and myalgias. All other systems reviewed and are negative. [facility] 03-07-2023 Note UTP CARDIOLOGY PROGR ESS [...] tablet 40 mg in the morning. HYDROcodone-acetaminophen (Clairton) 5-325 mg tablet Take 1 tablet by [...] Global left ventricul (more content not included)... [facility] 12-23-2022 Hospital Discharge instructions Patient Education [...] if anything looks unusual. Men with a eirpvz-ajgs-hozjbb risk for skin cancer may want to see a hide or skin buffer (air conditioning mechanic) for an annual body check. What are the benefits of screening? Cancer screening is done to look for cancer in the very early stages, before it spreads and becomes harder to treat and before you would start to notice symptoms. Finding cancer early improves the chances of successful treatment. It may save your life. Where to find more information [employer]: www.cancer.org Centers for Disease Control and Prevention: www.cdc.gov National Cancer [place]: www.cancer.gov Contact a health care provider if: [...] provider. Document Revised: 11/19/2021 Document Reviewed: 05/19/2020 Instagram Patient Education 2022 [employer]. Follow Up Care 04/22/2022 16:39:16 With:URSULA WORKMAN, Mekhi Oh, URL Address: [facility] [address] , [place] [address]- When: Unknown [facility] 10-24-2022 Note CONSULTATION CONSULTATION DATE: 10/24/2022 [...] which is stable. MEDICATION: Current medication includes Clairton 5 mg q.i.d. p.r.n. He reports it does improve his pain symptoms, improving his quality of life, level of functioning and his sleep pattern. He denies any side effects. He is also on Lyrica 75 mg at h.s., baclofen 10 mg at h.s. and Tylenol Extra Strength six pills a day, which he takes concomitantly with Clairton. EXAM: Notable for patient having left sided [...] our patients to inform us about any mwth-bvd-ugxyzth medications or herbal remedies/nutritional supplements/alternative remedies. 2. [...] options with their primary care provider. [facility] 10-18-2022 Note Patient here for fol low up KINZA s/p Watchman device implant. Denies chest pain and SOB. Doing very well. Review of Systems Cardiovascular: Positive for leg swelling. Hematologic/Lymphatic: Negative. Musculoskeletal: Positive for arthritis, back pain, joint pain and myalgias. All other systems reviewed and are negative. [facility] 10-18-2022 Note [facility] - [facility] Subjective Ben Guadalupe is a 86 [...] February 2022 [facility] with palpitations and chest pain. He [...] oriented to perso (more content not included)... [facility] 09-11-2022 Note [facility] - [facility] Subjective Ben Guadalupe is a 86 [...] February 2022 he was [facility] with palpitations and chest pain. He [...] Right lower le (more content not included)... [facility] 09-11-2022 Note Patient here for 2 w kwethluk follow up Watchman implant. Says he feels good. Denies chest pain and SOB. Review of Systems Cardiovascular: Positive for leg swelling. Hematologic/Lymphatic: Negative. Musculoskeletal: Positive for arthritis, back pain and myalgias. All other systems reviewed and are negative. [facility] 08-29-2022 Note Subjective Patient is s/p watchmen and s/p [facility] Patient restingin bed, doing well this morning. States he feels great and is ready to go home I did inform him of the [facility] results and that were no immediate concerns, [...] from the past 1 day. CV diagnostics: [facility] - 08/28/22 Conclusion Cardiovascular Laboratory Report FINAL [...] reduce the risk of stroke given elevated FEI2RE3-HGRf score of 5 due to age, hypertension, [...] He had watc (more content not included)... [facility] 08-29-2022 Note SW screened pt at be dside. Pt was alert and oriented. Pt lives in manufactured home by himself. There are no steps into his home. Pt's son and grandson live in other homes next to him. He uses a scooter outside and a walker inside for DME. He supports himself through SSI and [place]. Upon DC, pt will have transportation to home by family. SW has no other concerns at this time. [facility] 08-28-2022 Note Cardiovascular Labor atory Report [...] left radial artery was obtained. A 6 Zimbabwean glide sheath was inserted without difficulty. Bilateral [...] at the bifurcation with a prominent septal gear cutter. There is subsequent caliber reduction in the [...] descending artery. INDICATIONS: Chest pain, elevated Troponin [facility] 08-28-2022 Note Subjective Patient is s/p [...] reduce the risk of stroke given elevated [id number]-DQGq score of 5 due to age, hypertension, [...] mg daily. As needed nitro ,albuterol and Clairton -repeat echo and ekg were not concerning [...] discussed with Dr. Danielle and Dr. Cheney. [facility] 08-27-2022 Note Maritza VP CUSTOMER DEVELOPMENT on unit- ho lding off on trops at this time. Stat Echo ordered- going down shortly. [facility] 08-27-2022 Note Maritza cardiology VP CUSTOMER DEVELOPMENT in at bedside- patient's chest pressure is slightly worsening than prior. Stat EKG and trops ordered- EKG obtained- still awaiting trops. [facility] 08-27-2022 Note Subjective Patient is s/p [...] reduce the risk of stroke given elevated EVQ0NQ8-ZSMw score of 5 due to age, hypertension, [...] mg daily. As needed nitro ,albuterol and Clairton -repeat echo and ekg were not concerning at this time -will follow up with troponin for postop chest discomfort, likely from KINZA irritation or plavix, will order gi cocktail to see if that improves symptoms -likely discharge tomorrow [facility] 08-27-2022 Note Pt calling out deborah vega complaints of small amounts of chest pressure at this time. RN called air table operator- states will come to bedside to round very shortly. RN to follow up. [facility] 08-27-2022 Note Patient: Ben oh Procedure Information Date/Time: 08/27/22 0830 Procedure: Left atrial appendage closure (transvenous) - 829 case Location: [facility] TEST CONDUCTOR 2 BIPLANE / [facility] (Cath) Providers: Kavita Danielle [...] with fellow and attending. Additional Equipment Requests [facility] 08-20-2022 Note Patient: Ben oh Procedure Information Date/Time: 08/20/22 1030 Procedure: TRANSESOPHAGEAL ECHO (KINZA) Location: [facility] Vascular Lab [...] with fellow and attending. Additional Equipment Requests [facility] 08-06-2022 Note [id number]:[id number] [facility] 08-06-2022 Hospital Discharge instructions Patient Education 08/06/2022 [...] VERGARA Address: [facility] [address] [place] [address] Business (1) When: Unknown Comments:Office will call to schedule follow up [facility] 08-06-2022 Note Custom Cystoscopy ? Voiding after [...] you have a fever over 100 degrees. [facility] 08-05-2022 Note [facility] - [facility] Subjective Ben Guadalupe is a 86 [...] February 2022 [facility] with [facility]ations and chest pain. He [...] reaction(s): vomiting Tizani (more content not included)... [facility] 08-05-2022 Note Patient here to disc [...] All other systems reviewed and are negative. [facility] 07-30-2022 Note CONSULTATION CONSULTATION DATE: 07/30/2022 [...] the patient's pain. The patient currently takes Clairton 5/325 on a q.i.d. basis, Lyrica 75 [...] oriented x3, engaging with very good short term/residential memory. IMPRESSION: Current working diagnosis on the [...] like to maintain. CC: Dr. Elliott [facility] 06-25-2022 Note CONSULTATION CONSULTATION DATE: 06/25/2022 [...] patient currently takes Lyrica 75 mg b.i.d., Clairton 5/325 q.i.d., baclofen 10 mg q.h.s. The [...] and would like to proceed. CC: Dr. lEliott [facility] 06-24-2022 Note Hypertension is stab le -continue amlodipine, cardizem, metoprolol, losartan, lasix, bannerxiga [facility] 06-24-2022 Note -OXJ1VU-VLEe: 5 -did not start anticoagulation and does [...] of stroke discussed with granddaughter and patient [facility] 06-24-2022 Note [facility] Cardiology Note [facility] Reason for follow up: a-fib, htn [...] was made aware of stroke risks per OQJ8UO6-MPQf score of 5 (age, hypertension, diabetes, vascular [...] February 2022 [facility] with pal[facility]ations and chest pain. He [...] MCG (1000 UT) (more content not included)... [facility] 06-24-2022 Note Patient here for 1 [...] All other systems reviewed and are negative. [facility] 05-27-2022 Note [facility] - [facility] Subjective Ben Guadalupe is a 86 y.o. year old male patient being seen for 2 mo follow up stress test. He is not anticoagulated due to anemia and bleeding hemorrhoids. He had hemorrhoide[facility] last week at [facility]. Denies chest pain and SOB. Patient Active [...] February 2022 [facility] was [facility] with palpitations and chest pain. He [...] (Cardizem CD) 18 (more content not included)... [facility] 05-17-2022 Note HNO ID: [id number] Author: Minesh Levy APRN.WORD PROCESSOR TECHNICIAN Service: ? Author Type: Nurse Sort Operations Supervisor Type: Anesthesia Procedure Notes Filed: 05/17/2022 11:19 [...] Orientation: Left Location: Hand SIGNATURE: Minesh Levy APRN.WORD PROCESSOR TECHNICIAN PATIENT NAME: Ben Guadalupe DATE: May 17, 2022 TIME: 11:17 AM CSN: [id number] [facility] 05-17-2022 Note HNO ID: [id number] Author: Minesh Levy APRN.WORD PROCESSOR TECHNICIAN Service: ? Author Type: Nurse Sort Operations Supervisor Type: Anesthesia Procedure Notes Filed: 05/17/2022 10:39 AM Note Text: ANESTHESIOLOGY PROCEDURE NOTE Airway General Information Procedure Start Time/Medication Administration: 05/17/2022 10:11 AM Patient location during procedure: OR Timeout Performed Pre-procedure: timeout performed Consent Obtained: Yes Patient identity confirmed: arm band and patient Staffing Anesthesiologist: Kandice Guadalupe MD WORD PROCESSOR TECHNICIAN: Minesh Levy APRN.WORD PROCESSOR TECHNICIAN Performed by: IGNACIO Indications and Patient Condition Indications for airway management: anesthesia Preoxygenated: yes anesthesia circuit Patient position: sniffing Method: asleep Difficult Mask: No Final Airway Details Final airway type: supraglottic airway Number of attempts at approach: 1 Final Supraglottic Airway: i-gel Size 5 Seal Adequate: yes Failed airway: no Unrecognized esophageal intubation: no Airway not difficult SIGNATURE: Minesh Levy APRN.WORD PROCESSOR TECHNICIAN PATIENT NAME: Ben Guadalupe DATE: May 17, 2022 TIME: 10:38 AM CSN: [id number] [facility] 05-17-2022 Note HNO ID: [id number] Author: Shruthi Valdez RN Service: Nursing Author Type: Registered Nurse Type: Nursing Progress Note Filed: 05/17/2022 10:04 AM Note Text: Other: Dr. Ruiz and Dr. Guadalupe aware of K+ of 3.0. Awaiting orders. [facility] 05-16-2022 Miscellaneous Notes Attempt to call patient to review prep for surgery tomorrow, no answer, no voicemail available. documented in this encounter [facility] 05-10-2022 Note HNO ID: [id number] Author: Donna Arriaga RN Service: ? Author [...] Time spent on patient education: 20 minutes [facility] 05-10-2022 History of Present illness Narrative EUA, [...] education: 20 minutes documented in this encounter [facility] 05-10-2022 Note Education (KADIE) BEN GUADALUPE ([id number]) 1935 M Date Time Provider Department 05/10/22 [...] Encounter Status:Closed by DONNA ARRIAGA on 05/10/22 [facility] 05-10-2022 History and physical note HISTORY AND [...] 02/18/2022 Chronic kidney disease, stage 4 (severe) ([facility]) 12/20/2021 Chronic obstructive pulmonary disease ([facility]) 11/27/2021 Deep vein thrombosis (DVT) ([facility]) 1989 LLE- unprovoked Dementia in other diseases classified elsewhere, unspecified severity, without behavioral disturbance, psychotic disturbance, mood disturbance, and anxiety ([facility]) 11/27/2021 Diabetes ([facility]) Diabetes mellitus ([facility]) 11/01/2021 Essential (primary) hypertension 08/13/2017 Gastroesophageal reflux disease with esophagitis 05/10/2022 History of DVT (deep vein thrombosis) 05/10/2022 History of primary malignant neoplasm of urinary bladder 04/22/2022 History of prostate cancer 08/01/2015 Hypothyroidism unspecified 07/10/2021 Intracranial hemorrhage ([facility]) 05/10/2022 Neuropathy PAF (paroxysmal atrial fibrillation) ([facility]) 03/18/2022 Parkinson's disease ([facility]) PONV (postoperative nausea and vomiting) Radiculopathy, cervical [...] LLE +chronic LE edema Cards: Dr. Danielle [facility] 03/19/22 Denies any history of NM, CHF,PE, arrhythmias or murmurs. Denies CP, SOB, [...] 442 QTC Calculation (Bazett) 497 Calculated P [place] 37 Calculated R [place] 64 Calculated T [place] -10 Impression NORMAL SINUS RHYTHM COMPLETE RIGHT BUNDLE BRANCH BLOCK INFERIOR T WAVE ABNORMALITY ABNORMAL ECG No results found for this or any previous visit (from the past 49233 hour(s)). OSH Cardiovascular testing ABIs 10/11/2021: Normal [...] TIME: 1:37 PM documented in this encounter [facility] 05-09-2022 Instructions Afia Downing PA-C - 05/09/2022 12:36 PM EDT PATIENT PREOPERATIVE INSTRUCTIONS Wilcox Lorraine* has scheduled you for your procedure at this surgery center: [facility] [place] Scheduling Office: [phone] --[address] [place] [address]. Please read below carefully for your personalized [...] or other anticoagulants without consulting with your safety security officer or prescribing physician. - Stop Vitamin E, [...] Procedures: - YOU MUST HAVE A RESPONSIBLE TEST PREPARER TAKE YOU HOME. A VETERINARY TECHNICIAN ASSISTANT OR AIRCRAFT MAINTENANCE TECHNICIAN CANNOT BE MADE A RESPONSIBLE TEST PREPARER. - We recommend that a responsible person [...] call the Friday before. Your surgeon s auto repair shop manager will tell you what time to call the office. - If you have not reached the departmental auto repair shop manager by 5 P.M., call [phone] after 5 P.M. the day before your surgery. Please be aware that emergency situations arise, which may delay or change your surgical time. If this happens, we will notify you as soon as possible and regret any inconvenience. If you already have an Advance Directive, please fax a copy to [phone] or email to for it to be [...] Afia Downing PA-C documented in this encounter [facility] 04-25-2022 Miscellaneous Notes The Patient's granddaughter ( Milly Guadalupe) is calling to confirm surgery date, get all testing scheduled for her grandfather. Please call her at : [phone] at 11:30 AM or later, as she is at an appointment now. Thank you. documented in this encounter [facility] 04-24-2022 Miscellaneous Notes SPECIALTY CARE COORDINATION FOLLOW-UP NOTE Message left Pt to call in to discuss setting up surgery Offered 05/17/22 surgical date Any pre-operative business date within 30 days of surgical date Call back number left Signature Marika Zuñiga RN April 24, 2022 documented in this encounter [facility] 04-22-2022 Hospital Discharge instructions Patient Education 04/22/2022 [...] who: Are older than age 65. Are -Azerbaijani. Are obese. Have a family history of [...] cells. Follow these instructions at home: Take rwxn-[id number]-[id number] and prescription medicines only as told by [...] 06/23/2006 Document Revised: 06/05/2018 Document Reviewed: 03/03/2017 Instagram Patient Education 2020 [employer]. 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 His lower back feels tight, achy and spasmodic. He is having increasing bilateral lower extremity pain. Activities that aggravate his pain are standing, walking, lying, sitting and any physical activity. The use of medication, in addition to heat, decreases his pain. Medications include Lyrica 75 mg b.i.d., baclofen 10 mg q.h.s., [place] 5/325 q.i. d. and a multivitamin regimen. 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 Patient agrees with the plan of care, will be followed up post procedure. [facility] 03-18-2022 Note Subjective Ben Guadalupe is a 86 y.o. male. Chief Complaint: Atrial Fibrillation, Coronary Artery Disease, Hypertension, and left ventricular hypertrophy Nursing note: Patient here for follow up [facility]. He was seen as inpatient consult [...] hypertrophy Mixed hyperlipidemia PAF (paroxysmal atrial fibrillation) ([facility]) Blood loss anemia Bleeding hemorrhoid Family History [...] February 2022 he was [facility] with palpitations and chest pain. He [...] Hallucinations Tramadol Hallucination (more content not included)... [facility] 02-14-2022 Note CONSULTATION PROCEDURE DATE: 02/14/2022 [...] be followed up in the clinic. [facility] 02-14-2022 Note CONSULTATION CONSULTATION DATE: 02/14/2022 [...] and he was in obvious distress. His [place]air[place] was increased to 5/325 q.i.d. at that time, which has been helpful. The patient states since the introduction of the Lyrica to his regimen that his Clair[place] is back down to t.i.d. The intent [...] of this medication in addition to the [place]. Patient agrees with the plan of care and will be seen in eight weeks time unless otherwise indicated. [facility] 01-10-2022 Note CONSULTATION CONSULTATION DATE: 01/10/2022 [...] at home. Medication includes at this time [place] 5/325 t.i.d., baclofen 10 mg daily and [...] the patient and noting his distress, his [place] 5/325 will be increased to four times a day. He will be started on Lyrica 50 mg b.i.d. 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 He will receive bilateral lumbar trigger point injections in the office today as well. He will return to the clinic in six weeks' time to re-evaluate his pain pattern and efficacy of the Lyrica. Patient does agree. [facility] 01-10-2022 Note CONSULTATION PROCEDURE DATE: 01/30/2022 [...] procedure well with no overt complications. [facility] 11-29-2021 Note CONSULTATION PROCEDURE DATE: 11/29/2021 [...] will be followed up in the clinic. [facility] Signed and Approved by: CALVIN MOREJON . 12/06/2021 16:01:00 [facility] 11-29-2021 Note CONSULTATION CONSULTATION DATE: 11/29/2021 [...] lower lumbar area. 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 He does use heat daily which is helpful, in addition to Vicks VapoRub. Medications include baclofen 10 mg q.h.s., [place] 5/325 t.i.d. and a multivitamin regimen. The [...] degenerative disc. PLAN: A refill for his [place] 5/325 t.i.d. will be sent to the pharmacy. Patient will receive bilateral lumbar trigger point injections, which he agrees to receive here in the clinic. We will maintain his medications at the current regimen. He is to increase the amount of frequency of heat application and menthol heat rub. We will see the patient in six weeks' time unless otherwise indicated. [facility] Signed and Approved by: CALVIN MOREJON . 12/06/2021 16:01:00 [facility] 11-21-2021 Note OPERATIVE NOTE OPERATION DATE: [...] recovery room in good condition. CC: Shaikh Lexi M.D. [facility] Signed and Approved by: DR YENNI STANLEY . 11/28/2021 10:45:00 [facility] 10-09-2021 Hospital Discharge instructions Patient Education [...] 03/19/2005 Document Revised: 10/08/2018 Document Reviewed: 10/08/2018 Instagram Patient Education 2020 [employer]. Follow Up Care 10/01/2021 07:48:54 With:Iraida James CNP Address: When:3 months only if needed [facility] Evaluation + Plan note Future Appointments Appointment Date:10/16/2021 02:20:00 PM Scheduled Provider: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 MD Location:[facility] Appointment Type:[address] [facility] Evaluation + Plan note Future Appointments Appointment Date:04/30/2022 01:40:00 PM Scheduled Provider: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 MD Location:[facility] Appointment Type:[facility] Appointment Date:10/21/2022 03:15:00 PM Scheduled Provider:Mekhi VERGARA MD Location:[facility] Appointment Type:URO Office Visit Diagnostic Tests PendingPSA Total 04/22/22 [facility] Evaluation + Plan note Future Appointments Appointment Date:10/21/2022 03:15:00 PM Scheduled Provider:Mekhi VERGARA MD Location:[facility] Appointment Type:URO Office Visit Diagnostic Tests PendingUroVysion Fish and Urine Cyto ([facility]) 08/06/22 [facility] Evaluation + Plan note Future Appointments Appointment Date:06/23/2023 03:00:00 PM Scheduled Provider:Mekhi VERGARA MD Location:[facility] Appointment Type:URO Office Visit Diagnostic Tests PendingPSA Total 12/23/22 [facility] Evaluation note Diagnosis Fourth degree hemorrhoids- Primary Unspecified hemorrhoids with other complication [facility] in this [facility] [place] [facility] Diagnosis Pre-op evaluation- Primary Preoperative examination, [...] Coronary atherosclerosis of unspecified type of vessel, twenty-nine palms or graft PAF (paroxysmal atrial fibrillation) (HCC) Atrial fibrillation History of DVT (deep vein thrombosis) Personal history of venous thrombosis and embolism Gastroesophageal reflux disease with esophagitis, unspecified whether hemorrhage Chronic kidney disease, stage 4 (severe) ([facility]) Calculus of kidney Hypothyroidism unspecified Iron deficiency [...] with other complication documented in this encounter [facility] course Narrative No data available for this section [facility] Discharge instructions No data available for this section [facility] [place] [facility] note No data available for this section [facility] Summary Purpose Family History No Family History [...] and content) DATE CREATED AUTHOR 12/31/2017 [facility] DATE CREATED AUTHOR AUTHOR'S ORGANIZ ATION 05/31/2022 [facility] DATE CREATED AUTHOR AUTHOR'S ORGANIZ ATION 11/02/2022 [facility] DATE CREATED AUTHOR AUTHOR'S ORGANIZ ATION 03/08/2023 [facility] DATE CREATED AUTHOR AUTHOR'S ORGANIZ ATION 06/20/2023 [facility] DATE CREATED AUTHOR AUTHOR'S ORGANIZ ATION 07/05/2023 [facility] DATE CREATED AUTHOR AUTHOR'S ORGANIZ ATION 07/05/2023 [facility] EPIC Source Comments (unrecognize d section and content) In the event this informatio n is protected by the Federal Confidentiality of Alcohol and Drug Abuse Patient Records regulations: The Federal rules restrict any use of the information to criminally investigate or prosecute any alcohol or drug abuse patient.[facility] the event this information is protected by the Federal Confidentiality of Alcohol and Drug Abuse Patient Records regulations: The Federal rules restrict any use of the information to criminally investigate or prosecute any alcohol or drug abuse patient.[facility] the event this information is protected by the Federal Confidentiality of Alcohol and Drug Abuse Patient Records regulations: The Federal rules restrict any use of the information to criminally investigate or prosecute any alcohol or drug abuse patient.[facility] the event this information is protected by the Federal Confidentiality of Alcohol and Drug Abuse Patient Records regulations: The Federal rules restrict any use of the information to criminally investigate or prosecute any alcohol or drug abuse patient.[facility] the event this information is protected by the Federal Confidentiality of Alcohol and Drug Abuse Patient Records regulations: The Federal rules restrict any use of the information to criminally investigate or prosecute any alcohol or drug abuse patient.[facility] the event this information is protected by the Federal Confidentiality of Alcohol and Drug Abuse Patient Records regulations: The Federal rules restrict any use of the information to criminally investigate or prosecute any alcohol or drug abuse patient.[facility] Reason for Visit (unrecogniz ed section and content) Reason Comments New Reason Comments 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 Reason Comments Appointment Reason Comments Pre-Op Visit Reason Comments Patient Education Care Teams (unrecognized sec tion and content) Pre School Manager Relationship Specialty Start Date End Date Franky Veronica (Fax) PCP - General Internal Medicine 06/16/12 Pre School Manager Relationship Specialty Start Date End Date Franky Veronica (Fax) PCP - General Internal Medicine 06/16/12 Pre School Manager Relationship Specialty Start Date End Date Franky Veronica (Fax) PCP - General Internal Medicine 06/16/12 Pre School Manager Relationship Specialty Start Date End Date Franky Veronica (Fax) PCP - General Internal Medicine 06/16/12 Pre School Manager Relationship Specialty Start Date End Date Franky [...] BE BASED ON THE PRIMARY CLINICAL RECORDS. [facility]. provides no warranty or guarantee of the accuracy or completeness of information in this document.
[2023-07-18 22:05] VITALS: BP 150/78; PULSE 68; RESP 20; TEMP 37.1; O2SAT 94; BMI 26.0
[2023-07-18] MEDS: MAGNESIUM OXIDE 400 MG TABLET PO (23:05)
[2023-07-18] MEDS: BACLOFEN 10 MG TABLET PO (23:05)
[2023-07-18] MEDS: PREGABALIN 75 MG CAPSULE PO (23:05)
[2023-07-18] MEDS: MULTIVITAMIN TABLET 1 TAB PO (23:05)
[2023-07-18] MEDS: INSULIN ASPART 300 UNIT/3 ML PEN SUBQ (23:13)
[2023-07-18 23:20] LABS: Glucometer 182 mg/dL (74-106)
[2023-07-19] MEDS: HYDROMORPHONE HCL 1 MG/ML CARTRIDGE 0.5 MG IVP ×2 (00:31→05:59)
[2023-07-19] MEDS: LEVOTHYROXINE SODIUM 25 MCG TABLET 50 MCG PO (05:39)
[2023-07-19 05:41] VITALS: BP 139/84; PULSE 84; RESP 20; TEMP 36.6; O2SAT 95
[2023-07-19 05:50] LABS: Hematocrit 40.3 % (42.0-54.0); Hemoglobin 13.6 g/dL (14.0-18.0); Mean Corpuscular HGB Conc 33.7 g/dL (29.9-35.2); Mean Corpuscular Hemoglobin 32.3 pg (25.9-34.0); Mean Corpuscular Volume 95.7 fL (80.0-94.0); Mean Platelet Volume 10.4 fL (9.5-13.5); Platelet Count 136 10^3/uL (150-450); Red Blood Count 4.21 10^6/uL (4.70-6.10); Red Cell Distribution Width 12.8 % (11.0-15.0); White Blood Count 6.9 10^3/uL (4.0-11.0)
[2023-07-19 05:57] LABS: BUN Creatinine Ratio 18.3; Calcium 8.1 mg/dL (8.5-10.1); Carbon Dioxide 28.5 mmol/L (21.0-32.0); Chloride 103 mmol/L (98-107); Estimated GFR (African America >60 (>=60); Estimated GFR (Non-African Ame >60 (>=60); Glucose 230 mg/dL (74-106); Potassium 3.5 mmol/L (3.5-5.1); Sodium 141 mmol/L (136-145)
[2023-07-19] MEDS: 0.9 % SODIUM CHLORIDE 1,000 ML 100 ML IV (06:59)
[2023-07-19] MEDS: CHOLECALCIFEROL (VITAMIN D3) 25 MCG/1,000 UNITS TABLET 50 MCG PO (08:21)
[2023-07-19] MEDS: INSULIN ASPART 300 UNIT/3 ML PEN SUBQ ×3 (08:21→21:05)
[2023-07-19] MEDS: ATORVASTATIN CALCIUM 20 MG TABLET 40 MG PO (08:22)
[2023-07-19] MEDS: LOSARTAN POTASSIUM 50 MG TABLET PO (08:22)
[2023-07-19] MEDS: DONEPEZIL HCL 10 MG TABLET PO (08:22)
[2023-07-19] MEDS: ALLOPURINOL 300 MG TABLET PO (08:22)
[2023-07-19] MEDS: PSYLLIUM 0.4 GM PO (08:22)
[2023-07-19] MEDS: DILTIAZEM HCL 180 MG CAP.ER.24H PO (08:23)
[2023-07-19] MEDS: METOPROLOL TARTRATE 25 MG TABLET PO ×2 (08:23→21:10)
[2023-07-19] MEDS: ENOXAPARIN SODIUM 40 MG/0.4 ML SYRINGE SUBQ (08:23)
[2023-07-19] MEDS: MULTIVITAMIN TABLET 1 TAB PO ×2 (08:23→11:58)
[2023-07-19] MEDS: TAMSULOSIN HCL 0.4 MG CAPSULE PO (08:23)
[2023-07-19] MEDS: L. ACIDOPHILUS/L.BULGARICUS 1 PACKET GRAN.PACK PO (08:23)
[2023-07-19] MEDS: FAMOTIDINE 20 MG TABLET PO (08:23)
[2023-07-19] MEDS: ESCITALOPRAM 10 MG TABLET PO (08:23)
[2023-07-19] MEDS: PREGABALIN 75 MG CAPSULE PO ×2 (08:23→21:06)
[2023-07-19] MEDS: DORZOLAMIDE HCL 2%/TIMOLOL MALEATE 0.5% 200 DROP/10 ML BOTTLE OP ×2 (09:07→21:05)
[2023-07-19] MEDS: HYDROMORPHONE HCL 0.5 MG/0.5 ML SYRINGE IV (10:06)
[2023-07-19 11:43] LABS: Glucometer 227 mg/dL (74-106)
[2023-07-19] MEDS: AMLODIPINE BESYLATE 5 MG TABLET PO (11:57)
[2023-07-19] MEDS: ASPIRIN 81 MG TAB.CHEW PO (11:57)
[2023-07-19] MEDS: CANAGLIFLOZIN 100 MG TABLET 300 MG PO (11:57)
[2023-07-19] MEDS: GLIPIZIDE 5 MG TABLET PO ×2 (11:58→21:06)
[2023-07-19] MEDS: ACETAMINOPHEN 325 MG TABLET 650 MG PO ×3 (11:58→21:06)
[2023-07-19] MEDS: FUROSEMIDE 20 MG TABLET 40 MG PO (11:58)
[2023-07-19] MEDS: POTASSIUM CHLORIDE 10 MEQ ER TABLET 20 MEQ PO (11:58)
[2023-07-19] MEDS: METHOCARBAMOL 500 MG TABLET 1000 MG PO ×3 (11:58→21:06)
[2023-07-19] MEDS: OXYCODONE HCL 5 MG TABLET 10 MG PO ×3 (11:58→21:06)
[2023-07-19 13:19] VITALS: BP 119/64; PULSE 72; RESP 20; TEMP 36.4; O2SAT 94
--- NOTE | 2023-07-19 14:37 | P.HP_ITS ---
H&P: HPI History of Present Illness Chief complaint: Spinalo stenosis unable to ambulate acute hypokal Narrative: 87 y o male with chronic LBP presents last night due to worsening back and inability to ambulate because of pain. He reports for past one week, his pain has been steadily increasing. pain is persistent, 10/10, worse with any movement, with radiation bilaterally to his lower extremities but right leg is worse than left. He denies recent falls or trauma. Denies urinary/fecal incontinence. Patient has severe spinal stenosis of lumbar spine and has been following pain clinic for chronic pain and currently on PO Noroc as outpatient. He reports his Fackler was not sufficiently controlling his pain and his pain got so severe that he could not even stand or walk so he came last night for pain control. Patient admitted overnight for intractable low back pain. This morning - he reports his pain is more or less the same with no significant improvement. Review of Systems ROS Status of ROS 10 or more systems reviewed and unremark able except as noted in history and below [facility] Medical History (Updated 07/19/23 @ 14:49 by Shaikh Lexi MD) Ambulatory dysfunction ?R26.2 - Difficulty in walking, not elsewhere classified (ICD-10) HLD (hyperlipidemia) ?E78.5 - Hyperlipidemia, unspecified (ICD-10) Depression with anxiety ?F41.8 - Other specified anxiety disorders (ICD-10) Chronic diastolic heart failure ?I50.32 - Chronic diastolic (congestive) heart failure (ICD-10) Type 2 diabetes mellitus ?E11.9 - Type 2 diabetes mellitus without complications (ICD-10) Afib ?I48.91 - Unspecified atrial fibrillation (ICD-10) CKD stage 3 due to type 2 diabetes mellitus ?E11.22 - Type 2 diabetes mellitus with diabetic chronic kidney disease (ICD- 10) ?N18.30 - Chronic kidney disease, stage 3 unspecified (ICD-10) Lumbar stenosis with neurogenic claudication ?M48.062 - Spinal stenosis, lumbar region with neurogenic claudication (ICD- 10) Osteoarthritis of right knee ?M17.11 - Unilateral primary osteoarthritis, right knee (ICD-10) Chronic pain syndrome ?G89.4 - Chronic pain syndrome (ICD-10) Chronic prescription opiate use ?Z79.891 - tank terminal gauger (current) use of opiate analgesic (ICD-10) Osteoarthritis, 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 - Primary osteoarthritis, unspecified shoulder (ICD-10) Right shoulder pain ?M25.511 - Pain in right shoulder (ICD-10) Lumbar radiculopathy ?M54.16 - Radiculopathy, lumbar region (ICD-10) Abdominal pain ?R10.9 - Unspecified abdominal pain (ICD-10) Nausea & vomiting ?R11.2 - Nausea with vomiting, unspecified (ICD-10) Esophagitis ?K20.90 - Esophagitis, unspecified without bleeding (ICD-10) Muscle spasm ?M62.838 - Other muscle spasm (ICD-10) Lumbar stenosis ?M48.061 - Spinal stenosis, lumbar region without neurogenic claudication (ICD-10) Lumbar spondylosis ?M47.816 - Spondylosis without myelopathy or radiculopathy, lumbar region (ICD-10) Retraction of blood clot ?I74.9 - Embolism and thrombosis of unspecified artery (ICD-10) Inguinal hernia ?K40.90 - Unilateral inguinal hernia, without obstruction or gangrene, not specified as recurrent (ICD-10) Presence of Watchman left atrial appendage closure device ?Z95.818 - Presence of other cardiac implants and grafts (ICD-10) Low back pain ?M54.50 - Low back pain, unspecified (ICD-10) Rheumatoid arthritis ?M06.9 - Rheumatoid arthritis, unspecified (ICD-10) Osteoarthritis ?M19.90 - Unspecified osteoarthritis, unspecified site (ICD-10) Gout ?M10.9 - Gout, unspecified (ICD-10) DVT (deep venous thrombosis) ?I82.409 - Acute embolism and thrombosis of unspecified deep veins of unspecified lower extremity (ICD-10) Bladder cancer ?C67.9 - Malignant neoplasm of bladder, unspecified (ICD-10) Hearing deficit ?H91.90 - Unspecified hearing loss, unspecified ear (ICD-10) IBS (irritable bowel syndrome) ?K58.9 - Irritable bowel syndrome without diarrhea (ICD-10) Acid reflux ?K21.9 - Gastro-esophageal reflux disease without esophagitis (ICD-10) Hypothyroid ?E03.9 - Hypothyroidism, unspecified (ICD-10) Diabetes 1.5, managed as type 2 ?E13.9 - Other specified diabetes mellitus without complications (ICD-10) Kidney stone ?N20.0 - Calculus of kidney (ICD-10) Prostate cancer ?C61 - Malignant neoplasm of prostate (ICD-10) CPAP (continuous positive airway pressure) dependence ?Z99.89 - Dependence on other enabling machines and devices (ICD-10) Sleep apnea ?G47.30 - Sleep apnea, unspecified (ICD-10) Hypercholesterolemia ?E78.00 - Pure hypercholesterolemia, unspecified (ICD-10) Hypertension ?I10 - Essential (primary) hypertension (ICD-10) Surgical History H/O transurethral resection of bladder tumor (TURBT) ?Z98.890 - Other specified postprocedural states (ICD-10) ?Z86.03 - Personal history of neoplasm of uncertain behavior (ICD-10) H/O arthroscopy of knee ?Z98.890 - Other specified postprocedural states (ICD-10) S/P tonsillectomy and adenoidectomy ?Z90.89 - Acquired absence of other organs (ICD-10) Previous back surgery ?Z98.890 - Other specified postprocedural states (ICD-10) H/O neck surgery ?Z98.890 - Other specified postprocedural states (ICD-10) Family History Other Family history of diabetes mellitus Social History (Updated 07/18/23 @ 22:27 by Betsy Rojo) Within the past year, how often did you have a drink containing alcohol: never Score interpretation: A score less than 4 is consistent with normal alcohol consumption. Smoking status: Never smoker Non-prescribed substance use: denies use Previous occupational history: retired Known occupational exposures/hazards: No Highest level of school completed/degree received: high school graduate Are you now , , , , never or living with a partner: In a typical week, how many times do you talk on the telephone with family, friends, or neighbors: 3 or more times per week How often do you get together with friends or relatives: 3 or more times per week How often do you attend nondenominational or druze services: never Do you belong to any clubs or organizations such as nondenominational groups unions, fra[employer]topia or athletic groups, or school groups: no Total score: 1 Score interpretation: A score of less than or equal to 1 indicates the most socially isolated. Little interest or pleasure in doing things: not at all Feeling down, depressed, or hopeless: not at all Feel stressed/tense/nervous/anxious/difficulty sleeping: not at all Do you think of yourself as: straight/heterosexual Gender Identity: male Meds Home Medications and Allergies Home Medications Medication Instructions Recorded Confirmed Type albuterol sulfate 90 mcg/actuation 1 inh inhalation Q4H PRN shortness 12/27/22 07/18/23 History aerosol inhaler (ProAir HFA) of breath or wheezing allopurinol 300 mg tablet 300 mg PO .QD 12/27/22 07/18/23 History cholecalciferol (vitamin D3) 25 50 mcg PO DAILY 12/27/22 07/18/23 History mcg (1,000 unit) capsule (Vitamin D3) levothyroxine 50 mcg tablet 50 mcg PO .QD 12/27/22 07/18/23 History nitroglycerin 0.4 mg sublingual 0.4 mg sublingual Q5M PRN chest 12/27/22 07/18/23 History tablet (Nitrostat) pain potassium chloride 20 mEq 20 meq PO DAILY 12/27/22 07/18/23 History tablet,extended release (K-Tab) aspirin 81 mg capsule 81 mg PO DAILY 01/09/23 07/18/23 History diltiazem HCl 180 mg 180 mg PO DAILY 01/09/23 07/18/23 History capsule,extended release 24 hr donepezil 10 mg tablet (Aricept) 10 mg PO DAILY 01/09/23 07/18/23 History dorzolamide-timolol (PF) 2 %-0.5 % 1 drp ophthalmic (eye) BID 01/09/23 07/18/23 History eye drops in a dropperette famotidine 20 mg tablet 20 mg PO DAILY 01/09/23 07/18/23 History ferrous sulfate 325 mg (65 mg 325 mg PO .every other day 01/09/23 07/18/23 History iron) tablet fluticasone propionate 50 2 spray intranasal DAILY PRN nasal 01/09/23 07/18/23 History mcg/actuation nasal congestion spray,suspension (Flonase Allergy Relief) furosemide 20 mg tablet 40 mg PO QAM 01/09/23 07/18/23 History losartan 100 mg tablet 50 mg PO DAILY 01/09/23 07/18/23 History magnesium oxide,aspartate,citr 400 mg PO BEDTIME 01/09/23 07/18/23 History metoprolol tartrate 25 mg tablet 25 mg PO BID 01/09/23 07/18/23 History [id number] 300 mcg-K 60 1 tab PO DAILY 01/09/23 07/18/23 History mcg-lycop 600 mcg-lutein 300 mcg tablet (Centrum Silver Men) psyllium husk 0.4 gram capsule 0.4 g PO DAILY 01/09/23 07/18/23 History (Metamucil) tamsulosin 0.4 mg capsule (Flomax) 0.4 mg PO DAILY 01/09/23 07/18/23 History atorvastatin 20 mg tablet 40 mg PO DAILY 01/10/23 07/18/23 History baclofen 10 mg tablet 10 mg PO .qhs muscle spasm 01/10/23 07/18/23 History ondansetron 4 mg disintegrating 4 mg PO Q6H PRN nausea and 02/05/23 07/18/23 Rx tablet vomiting #12 tabs pregabalin 150 mg capsule (Lyrica) 75 mg PO BEDTIME 06/10/23 07/18/23 History pregabalin 75 mg capsule (Lyrica) 75 mg PO DAILY 06/10/23 07/18/23 History hydrocodone 5 mg-acetaminophen 325 1 tab PO QID PRN pain #120 tabs 06/26/23 07/18/23 Rx mg tablet Lactobacillus rhamnosus GG 10 1 cap PO DAILY 07/18/23 07/18/23 History billion cell capsule (Culturelle) amlodipine 5 mg tablet 5 mg PO DAILY 07/18/23 07/18/23 History dapagliflozin propanediol 10 mg 10 mg PO DAILY 07/18/23 07/18/23 History tablet (Farxiga) escitalopram oxalate 10 mg tablet 10 mg PO .am 07/18/23 07/18/23 History glipizide 5 mg tablet 5 mg PO BID 07/18/23 07/18/23 History multivitamin 1 tab PO BID 07/18/23 07/18/23 History Allergies Allergy/AdvReac Type Severity Reaction Status Date / Time tizanidine [From Zanaflex] Allergy Unknown Verified 07/18/23 19:12 acetaminophen [From Percocet] AdvReac Mild Vomiting Verified 07/18/23 19:12 cyclobenzaprine AdvReac Mild Hallucinati Verified 07/18/23 19:12 [From Flexeril] ng oxycodone [From Percocet] AdvReac Mild Vomiting Verified 07/18/23 19:12 tramadol AdvReac Mild Vomiting Verified 07/18/23 19:12 Exam Constitutional Vital Signs, click to edit/add: Last Vital Signs Temp 97.6 F 07/19/23 13:19 Pulse 72 07/19/23 13:19 Resp 20 07/19/23 13:19 BP 119/64 07/19/23 13:19 Pulse Ox 94 L 07/19/23 13:19 O2 Del Method Room Air 07/19/23 13:19 General appearance: cooperative and in distress Orientation/consciousness: Yes awake, Yes oriented to person, Yes oriented to place and Yes oriented to time HENMT Common normals: normocephalic and head/scalp atraumatic Respiratory Common normals: normal respiratory effort, no use of accessory muscles and clear to auscultation bilaterally Cardio Common normals: regular rate, regular rhythm, S1 normal heart sound and S2 normal heart sound GI Common normals: Normal to inspection, nondistended, normoactive bowel sounds present, soft to palpation, non-tender and no hepatosplenomegaly Back & Pelvis Common normals: no CVA tenderness and thoracic and lumbar spine normal to inspection Lumbar spine/lower back: pain with ROM, lumbar spinal tenderness, paraspinal muscle tenderness, paraspinal muscle spasm, straight leg raise positive right and straight leg raise positive left Extremity Common normals: no clubbing, cyanosis or edema Neuro Common normals: oriented x3, moves all extremities and no sensory deficits noted Coordination/balance: [id number] test normal Speech: speech normal Gait (neuro): unable to assess gait (due to pain) Psych Common normals: mental status grossly normal, thought process normal and conference center coordinator perative Results Labs Labs: Short CBC 07/18/23 07/19/23 Range/Units 19:15 04:33 WBC 10.7 6.9 (4.0-11.0) 10^3/uL Hgb 15.5 13.6 L (14.0-18.0) g/dL Hct 45.7 40.3 L (42.0-54.0) % Plt Count 149 L 136 L (150-450) 10^3/uL BMP 07/18/23 07/19/23 19:15 04:33 Sodium 139 141 Potassium 2.8 L* 3.5 Chloride 100 103 Carbon Dioxide 28.7 28.5 BUN 18.0 15.0 Creatinine 1.03 0.82 Glucose 156 H 230 H Calcium 8.5 8.1 L Liver Function 07/18/23 Range/Units 19:15 Total Bilirubin 0.7 (0.2-1.0) mg/dL AST 25 (15-37) U/L ALT 69 H (16-63) U/L Alkaline Phosphatase 60 (46-116) U/L Albumin 4.0 (3.4-5.0) g/dL Assessment and Plan Assessment and Plan (1) Intractable low back pain: Assessment and Plan: Intractable low back hines, inability to ambulate because of pain. Started on oxycodone 10 q4 as needed for pain C/w lyrica, added Robaxin. No acute neurological symptom or concern for cord compression based on exam. No indication for an MRI. PT/OT Evaluation.If pain is reasonably controlled on current PO regimen, will discharge tomorrow on the regimen. (2) Ambulatory dysfunction: Assessment and Plan: Uses walker to ambulate at home. And a motorized scooter for when he goes out. He has not been able to use his walker at home due to poorly controlled pain. PT/OT eval (3) Hypertension: Assessment and Plan: Controlled. C/w roosevelt medications Qualifiers: Hypertension type: primary hypertension Qualified Code(s): I10 - Essential (primary) hypertension (4) Afib: Assessment and Plan: In NSR. no need for AC as he had Watchman. Qualifiers: Atrial fibrillation type: paroxysmal Qualified Code(s): I48.0 - Paroxysmal atrial fibrillation (5) Type 2 diabetes mellitus: Assessment and Plan: C/w glipizide and Farxiga. Sliding scale insulin as needed Qualifiers: Diabetes mellitus longterm insulin use: without buttermilk drier operator use Diabetes mellitus complication status: without complication Qualified Code(s): E11.9 - Type 2 diabetes mellitus without complications (6) Chronic diastolic heart failure: Assessment and Plan: Euvolemic on exam.C/w PO lasix. (7) Hypothyroid: Assessment and Plan: On synthyroid. c/w same Qualifiers: Hypothyroidism type: unspecified Qualified Code(s): E03.9 - Hypothyroidism, unspecified (8) Depression with anxiety: Assessment and Plan: On Lexapr. DOing well on it. C/w same (9) HLD (hyperlipidemia): Assessment and Plan: C/w lipitor Plan PT/OT eval and rx. Adjusting his narcotics and trying to find a combination that works for him and reasonably controls his pain.
[2023-07-19] MEDS: ONDANSETRON 4 MG RAPDIS TABLET PO (15:59)
[2023-07-19 16:03] LABS: Glucometer 176 mg/dL (74-106)
[2023-07-19] MEDS: DOCUSATE SODIUM 100 MG CAPSULE PO (16:52)
[2023-07-19 20:04] LABS: Glucometer 203 mg/dL (74-106)
[2023-07-19 20:46] VITALS: BP 113/73; PULSE 71; RESP 18; TEMP 36.4; O2SAT 94
[2023-07-19] MEDS: MAGNESIUM OXIDE 400 MG TABLET PO (21:06)
[2023-07-20] MEDS: OXYCODONE HCL 5 MG TABLET 10 MG PO ×5 (02:05→20:46)
[2023-07-20 05:29] VITALS: BP 131/83; PULSE 67; RESP 18; TEMP 36.6; O2SAT 96
[2023-07-20 05:47] LABS: Bilirubin Urine NEGATIVE (NEGATIVE); Blood Urine NEGATIVE (NEGATIVE); Clarity Urine CLEAR (CLEAR); Color Urine LT. YELLOW (YELLOW); Glucose Urine UA >=1000 mg/dL (NEGATIVE); Ketones Urine NEGATIVE (NEGATIVE); Leukocyte Esterase Urine NEGATIVE (NEGATIVE); Nitrite Urine NEGATIVE (NEGATIVE); Protein Urine NEGATIVE (NEG/TRACE); Urobilinogen Urine 0.2 EU/dL (0.2-1.0); pH Urine 6.5 (5.0-9.0)
[2023-07-20 05:48] LABS: Urine Microscopic Indicated NO
[2023-07-20] MEDS: LEVOTHYROXINE SODIUM 25 MCG TABLET 50 MCG PO (06:06)
[2023-07-20 08:13] LABS: Glucometer 136 mg/dL (74-106)
[2023-07-20] MEDS: L. ACIDOPHILUS/L.BULGARICUS 1 PACKET GRAN.PACK PO (08:15)
[2023-07-20] MEDS: ENOXAPARIN SODIUM 40 MG/0.4 ML SYRINGE SUBQ (08:15)
[2023-07-20] MEDS: PSYLLIUM 0.4 GM PO (08:15)
[2023-07-20] MEDS: POTASSIUM CHLORIDE 10 MEQ ER TABLET 20 MEQ PO (08:16)
[2023-07-20] MEDS: CANAGLIFLOZIN 100 MG TABLET 300 MG PO (08:16)
[2023-07-20] MEDS: PREGABALIN 75 MG CAPSULE PO ×2 (08:16→23:05)
[2023-07-20] MEDS: CHOLECALCIFEROL (VITAMIN D3) 25 MCG/1,000 UNITS TABLET 50 MCG PO (08:16)
[2023-07-20] MEDS: FAMOTIDINE 20 MG TABLET PO (08:16)
[2023-07-20] MEDS: ALLOPURINOL 300 MG TABLET PO (08:16)
[2023-07-20] MEDS: DONEPEZIL HCL 10 MG TABLET PO (08:16)
[2023-07-20] MEDS: DILTIAZEM HCL 180 MG CAP.ER.24H PO (08:16)
[2023-07-20] MEDS: ASPIRIN 81 MG TAB.CHEW PO (08:17)
[2023-07-20] MEDS: METOPROLOL TARTRATE 25 MG TABLET PO ×2 (08:17→16:29)
[2023-07-20] MEDS: FUROSEMIDE 20 MG TABLET 40 MG PO (08:17)
[2023-07-20] MEDS: ESCITALOPRAM 10 MG TABLET PO (08:17)
[2023-07-20] MEDS: LOSARTAN POTASSIUM 50 MG TABLET PO (08:17)
[2023-07-20] MEDS: MULTIVITAMIN TABLET 1 TAB PO (08:17)
[2023-07-20] MEDS: GLIPIZIDE 5 MG TABLET PO ×2 (08:17→20:46)
[2023-07-20] MEDS: DOCUSATE SODIUM 100 MG CAPSULE PO (08:17)
[2023-07-20] MEDS: TAMSULOSIN HCL 0.4 MG CAPSULE PO (08:17)
[2023-07-20] MEDS: AMLODIPINE BESYLATE 5 MG TABLET PO (08:17)
[2023-07-20] MEDS: ATORVASTATIN CALCIUM 20 MG TABLET 40 MG PO (08:17)
[2023-07-20] MEDS: DORZOLAMIDE HCL 2%/TIMOLOL MALEATE 0.5% 200 DROP/10 ML BOTTLE OP ×2 (08:18→20:47)
--- NOTE | 2023-07-20 10:22 | PM.IMPN1 ---
Progress Note: A&P Assessment and Plan (1) Intractable low back pain: Assessment and Plan: Well controlled on Oxycodone 10 q4 as needed Participating in PT/OT. Unable to get up from chair, change position in bed without needing help. C/w PT, OT, social media strategist consulted for possible placement vs home discharge with home PT/OT. (2) Ambulatory dysfunction: Assessment and Plan: Uses walker at home. Currently, unable to get up from a seated position and needs help for that. Once he is up, he is very unstable, starts to shake and then takes sometime to settle down. Lives by himself. Unsafe to discharge him to home without a solid discharge plan as high risk of fall PT/OT is working with him. Possible discharge tomorrow - home with Home PT/OT vs acute rehab (3) Hypertension: Assessment and Plan: Stable, c/w home medications Qualifiers: Hypertension type: primary hypertension Qualified Code(s): I10 - Essential (primary) hypertension (4) Afib: Assessment and Plan: In NSR. not on anticoagulation because he had watchman procedure Qualifiers: Atrial fibrillation type: paroxysmal Qualified Code(s): I48.0 - Paroxysmal atrial fibrillation (5) Type 2 diabetes mellitus: Assessment and Plan: Sliding scale insulin while inpatient. Qualifiers: Diabetes mellitus middle or intermediate school principal insulin use: without fpc use Diabetes mellitus complication status: without complication Qualified Code(s): E11.9 - Type 2 diabetes mellitus without complications (6) Chronic diastolic heart failure: Assessment and Plan: Euvolemic. c/w lasix. (7) Hypothyroid: Assessment and Plan: C/w levothyroxine Qualifiers: Hypothyroidism type: unspecified Qualified Code(s): E03.9 - Hypothyroidism, unspecified (8) Depression with anxiety: Assessment and Plan: c/w celexa. Well controlled (9) HLD (hyperlipidemia): Assessment and Plan: C/w lipitor. Internal Medicine - PN: Subj Subjective Interval history: Seen and examined. Doing much better today. Pain is well controlled but he can barely ambulate even with someone helping him. He lives by himself at home. At baseline, uses a walker in home, motorized scooter for when he goes outside. Exam Constitutional Vital Signs, click to edit/add: Last Vital Signs Temp 97.9 F 07/20/23 05:29 Pulse 67 07/20/23 05:29 Resp 18 07/20/23 05:29 BP 131/83 07/20/23 05:29 Pulse Ox 96 07/20/23 05:29 O2 Del Method Room Air 07/20/23 05:29 General appearance: cooperative and in distress Orientation/consciousness: Yes awake, Yes oriented to person, Yes oriented to place and Yes oriented to time Respiratory Common normals: normal respiratory effort, no use of accessory muscles and clear to auscultation bilaterally Cardio Common normals: regular rate, regular rhythm, S1 normal heart sound and S2 normal heart sound Back & Pelvis Common normals: no CVA tenderness and thoracic and lumbar spine normal to inspection Lumbar spine/lower back: pain with ROM, lumbar spinal tenderness and paraspinal muscle tenderness Extremity Common normals: no clubbing, cyanosis or edema Neuro Common normals: oriented x3, moves all extremities and no sensory deficits noted Coordination/balance: [id number] test normal Speech: speech normal Gait (neuro): unable to assess gait (due to pain) Psych Common normals: mental status grossly normal, thought process normal and cooperative Internal Medicine - PN: Obj Da Labs Labs: Laboratory Results - last 24 hr 07/19/23 07/19/23 07/19/23 11:41 16:02 20:02 Urine Color Urine Clarity Urine pH Ur Specific [place] Urine Protein Urine Glucose (UA) Urine Ketones Urine Occult Blood Urine Nitrite Urine Bilirubin Urine Urobilinogen Ur Leukocyte Esterase POC Glucose 227 H 176 H 203 H 07/20/23 07/20/23 05:22 08:12 Urine Color Lt. yellow Urine Clarity Clear Urine pH 6.5 Ur Specific [place] 1.010 Urine Protein Negative Urine Glucose (UA) >=1000 A Urine Ketones Negative Urine Occult Blood Negative Urine Nitrite Negative Urine Bilirubin Negative Urine Urobilinogen 0.2 Ur Leukocyte Esterase Negative POC Glucose 136 H
[2023-07-20] MEDS: ONDANSETRON 4 MG RAPDIS TABLET PO ×2 (10:25→20:53)
[2023-07-20] MEDS: ACETAMINOPHEN 325 MG TABLET 650 MG PO ×3 (11:18→20:46)
[2023-07-20 11:33] LABS: Glucometer 176 mg/dL (74-106)
[2023-07-20 13:47] VITALS: BP 129/83; PULSE 66; RESP 20; TEMP 37.1; O2SAT 93
[2023-07-20 16:26] LABS: Glucometer 140 mg/dL (74-106)
[2023-07-20 20:54] VITALS: BP 142/87; PULSE 64; RESP 20; TEMP 36.2; O2SAT 97
[2023-07-20 22:12] LABS: Glucometer 149 mg/dL (74-106)
[2023-07-20] MEDS: MAGNESIUM OXIDE 400 MG TABLET PO (23:05)
[2023-07-20] MEDS: METHOCARBAMOL 500 MG TABLET 1000 MG PO (23:05)
[2023-07-21] MEDS: ACETAMINOPHEN 325 MG TABLET 650 MG PO ×3 (01:40→11:56)
[2023-07-21] MEDS: OXYCODONE HCL 5 MG TABLET 10 MG PO ×3 (01:40→11:56)
[2023-07-21 04:38] VITALS: BP 121/70; PULSE 83; RESP 20; TEMP 36.6; O2SAT 93
[2023-07-21] MEDS: METHOCARBAMOL 500 MG TABLET 1000 MG PO ×2 (05:44→11:24)
[2023-07-21] MEDS: LEVOTHYROXINE SODIUM 25 MCG TABLET 50 MCG PO (05:44)
[2023-07-21 05:52] VITALS: BP 143/79; PULSE 57; RESP 20; TEMP 36.6; O2SAT 96
[2023-07-21 07:45] LABS: Glucometer 109 mg/dL (74-106)
--- NOTE | 2023-07-21 07:56 | CM.NOTE ---
Discussed with patient regarding PT recommendations and pt wishes at this time is home with HH services. Pt does have [facility] that comes in through the [facility] but is interested in PT and OT services. Discussed with pt Medicare.gov 5 star rating for HH, pt request [facility]. Clinical sent to [facility] .
[2023-07-21] MEDS: L. ACIDOPHILUS/L.BULGARICUS 1 PACKET GRAN.PACK PO (09:32)
[2023-07-21] MEDS: ONDANSETRON 4 MG RAPDIS TABLET PO (09:32)
[2023-07-21] MEDS: ENOXAPARIN SODIUM 40 MG/0.4 ML SYRINGE SUBQ (09:32)
[2023-07-21 09:33] VITALS: BP 116/71
[2023-07-21] MEDS: ALLOPURINOL 300 MG TABLET PO (09:33)
[2023-07-21] MEDS: TAMSULOSIN HCL 0.4 MG CAPSULE PO (09:33)
[2023-07-21] MEDS: GLIPIZIDE 5 MG TABLET PO (09:33)
[2023-07-21] MEDS: FUROSEMIDE 20 MG TABLET 40 MG PO (09:33)
[2023-07-21] MEDS: PSYLLIUM 0.4 GM PO (09:33)
[2023-07-21 09:34] VITALS: BP 116/71
[2023-07-21] MEDS: PREGABALIN 75 MG CAPSULE PO (09:34)
[2023-07-21] MEDS: ESCITALOPRAM 10 MG TABLET PO (09:34)
[2023-07-21] MEDS: FERROUS SULFATE 325 MG TABLET PO (09:34)
[2023-07-21] MEDS: CANAGLIFLOZIN 100 MG TABLET 300 MG PO (09:34)
[2023-07-21] MEDS: FAMOTIDINE 20 MG TABLET PO (09:34)
[2023-07-21] MEDS: ATORVASTATIN CALCIUM 20 MG TABLET 40 MG PO (09:34)
[2023-07-21] MEDS: AMLODIPINE BESYLATE 5 MG TABLET PO (09:34)
[2023-07-21] MEDS: CHOLECALCIFEROL (VITAMIN D3) 25 MCG/1,000 UNITS TABLET 50 MCG PO (09:34)
[2023-07-21] MEDS: ASPIRIN 81 MG TAB.CHEW PO (09:34)
[2023-07-21] MEDS: DILTIAZEM HCL 180 MG CAP.ER.24H PO (09:34)
[2023-07-21] MEDS: MULTIVITAMIN TABLET 1 TAB PO (09:35)
[2023-07-21] MEDS: METOPROLOL TARTRATE 25 MG TABLET PO (09:35)
[2023-07-21] MEDS: DONEPEZIL HCL 10 MG TABLET PO (09:35)
[2023-07-21] MEDS: LOSARTAN POTASSIUM 50 MG TABLET PO (09:35)
[2023-07-21] MEDS: POTASSIUM CHLORIDE 10 MEQ ER TABLET 20 MEQ PO (09:35)
--- NOTE | 2023-07-21 09:53 | SWNOTE1 ---
Pt wants [facility], case management sent over referral. All the referral did not go through. SW called over to [facility] and they did receive some of referral, need H&P. SW was given a different fax number and sent information again.
[2023-07-21] MEDS: DORZOLAMIDE HCL 2%/TIMOLOL MALEATE 0.5% 200 DROP/10 ML BOTTLE OP (10:15)
--- NOTE | 2023-07-21 10:44 | CM.NOTE ---
Rounds made with Dr. Elliott, discussed with pt about discharge planning. Dr. Elliott discussed skilled rehab, pt voices he would rather go home with HH. Pt continues with back pain and nausea this AM. Discussed with RN about medications being administered. No discharge today.
[2023-07-21 10:55] LABS: Glucometer 169 mg/dL (74-106)
--- NOTE | 2023-07-21 10:57 | CM.NOTE ---
Medicare Outpatient Observation Notice discussed with pt, pt verbalizes understanding and signs paper. Original given to pt and copy placed on pt's chart.
--- NOTE | 2023-07-21 11:22 | PM.DS1 ---
DS: Providers Provider Date of admission: 07/18/23 21:41 Primary care physician: Shaikh Lexi MD Consults: 07/19/23 09:00 Occupational Therapy Eval and Treat Routine Reason for consultation: Eval and treat; intractable back pain; weakness Has provider been notified: No Physical Therapy Eval and Treat Routine Reason for consultation: Eval and treat; intractable back pain; weakness Has provider been notified: No 07/19/23 11:14 Physical Therapy Eval and Treat Routine Reason for consultation: low back pain, weakness Attending physician on discharge: Shaikh Lexi Discharging clinician: Shaikh Lexi DS: Diagnosis Discharge Diagnosis (1) Intractable low back pain: Assessment and plan: Progressively worsening LBP, not controlled on his home pain regimen. We treated his pain with PO oxycodone 10 q4 as needed and it helped tremendously and I believe oxycodone 10 mg q6 as needed for pain would be a good regimen for his pain. (2) Ambulatory dysfunction: Assessment and plan: Due to severe pain. improved with PT/OT. Not interested in going to rehab. Has walker and scooter at home (3) Hypertension: Assessment and plan: Stable. C/w home meds Qualifiers: Hypertension type: primary hypertension Qualified Code(s): I10 - Essential (primary) hypertension (4) Afib: Assessment and plan: In NSR. Qualifiers: Atrial fibrillation type: paroxysmal Qualified Code(s): I48.0 - Paroxysmal atrial fibrillation (5) Type 2 diabetes mellitus: Assessment and plan: on glipizide and jardiance Qualifiers: Diabetes mellitus complication status: without complication Diabetes mellitus group home insulin use: without superintendent container terminal use Qualified Code(s): E11.9 - Type 2 diabetes mellitus without complications (6) Chronic diastolic heart failure: Assessment and plan: lasix for volume control (7) Hypothyroid: Assessment and plan: c/w synthyroid Qualifiers: Hypothyroidism type: unspecified Qualified Code(s): E03.9 - Hypothyroidism, unspecified (8) Depression with anxiety: Assessment and plan: imoproved since he is using lexapro / (9) HLD (hyperlipidemia): Assessment and plan: c/w statin DS: Summary Hospital Course Hospital Course: 87 y o male presented with worsening back and inability to ambulate because of pain. For past one week, his pain was steadily increasing to an extent he could not ambulate. Pulmonology Physician recent falls or trauma. Patient has severe spinal stenosis of lumbar spine and has been following pain clinic for chronic pain and currently on PO Noroc as outpatient. He reports his [place] was not sufficiently controlling his pain and his pain got so severe that he could not even stand or walk so he came last night for pain control. Patient admitted for intractable low back pain. He was started on oxycodoe 10 q4 as needed and it sufficienctly helped his pain. Unfortunately, it is an unreasonabe expecation and patient understands that too that he will always be in pain and we need to find a good regimen that works for him. Stable for discharge on PO oxycodone. Status at Discharge Functional status at discharge: uses cane/walker Overall status at discharge: patient is progressing back to baseline Time Spent with Patient Time attestation: Total time spent providing and/or coordinating discharge services: Time spent: greater than 30 minutes Exam Constitutional Vital Signs, click to edit/add: Last Vital Signs Temp 97.9 F 07/21/23 05:52 Pulse 57 L 07/21/23 05:52 Resp 20 07/21/23 05:52 BP 116/71 07/21/23 09:34 Pulse Ox 96 07/21/23 05:52 O2 Del Method Room Air 07/21/23 05:52 General appearance: cooperative and in distress Orientation/consciousness: Yes awake, Yes oriented to person, Yes oriented to place and Yes oriented to time Respiratory Common normals: normal respiratory effort, no use of accessory muscles and clear to auscultation bilaterally Cardio Common normals: regular rate, regular rhythm, S1 normal heart sound and S2 normal heart sound Back & Pelvis Common normals: no CVA tenderness and thoracic and lumbar spine normal to inspection Lumbar spine/lower back: pain with ROM, lumbar spinal tenderness and paraspinal muscle tenderness Extremity Common normals: no clubbing, cyanosis or edema Neuro Common normals: oriented x3, moves all extremities and no sensory deficits noted Coordination/balance: [id number] test normal Speech: speech normal Gait (neuro): unable to assess gait (due to pain) Psych Common normals: mental status grossly normal, thought process normal and cooperative DS: Data Data Completed and Pending Labs on day of discharge: Labs from last 24 hours 07/21/23 07/21/23 07/20/23 10:54 07:45 22:10 POC Glucose 169 H 109 H 149 H 07/20/23 07/20/23 16:25 11:32 POC Glucose 140 H 176 H Discharge Plan Discharge Disposition: Home, Self-Care Condition: Good Discharge Medications: Continued donepezil [Aricept] 10 mg tablet 10 mg PO DAILY aspirin 81 mg capsule 81 mg PO DAILY Centrum Silver Men 300-600-300 mcg tablet 1 tab PO DAILY diltiazem HCl 180 mg capsule,extended release 24hr 180 mg PO DAILY dorzolamide-timolol (PF) 2-0.5 % dropperette 1 drp ophthalmic (eye) BID ferrous sulfate 325 mg (65 mg iron) tablet 325 mg PO .every other day famotidine 20 mg tablet 20 mg PO DAILY tamsulosin [Flomax] 0.4 mg capsule 0.4 mg PO DAILY fluticasone propionate [Flonase Allergy Relief] 50 mcg/actuation spray,suspension 2 spray intranasal DAILY PRN (Reason: nasal congestion) Rx Instructions: administer into each nostril furosemide 20 mg tablet 40 mg PO QAM losartan 100 mg tablet 50 mg PO DAILY magnesium oxide,aspartate,citr 400 mg magnesium capsule 400 mg PO BEDTIME psyllium husk [Metamucil] 0.4 gram capsule 0.4 g PO DAILY metoprolol tartrate 25 mg tablet 25 mg PO BID atorvastatin 20 mg tablet 40 mg PO DAILY baclofen 10 mg tablet 10 mg PO .qhs ondansetron 4 mg tablet,disintegrating 4 mg PO Q6H PRN (Reason: nausea and vomiting) Qty: 12 0RF hydrocodone-acetaminophen 5-325 mg tablet 1 tab PO QID PRN (Reason: pain) Qty: 120 0RF pregabalin [Lyrica] 75 mg capsule 75 mg PO DAILY Patient Comments: takes 1 in am and 2 in pm pregabalin [Lyrica] 150 mg capsule 75 mg PO BEDTIME Culturelle 10 billion cell capsule 1 cap PO DAILY multivitamin Tablet 1 tab PO BID glipizide 5 mg tablet 5 mg PO BID escitalopram oxalate 10 mg tablet 10 mg PO .am Farxiga 10 mg tablet 10 mg PO DAILY allopurinol 300 mg tablet 300 mg PO .QD levothyroxine 50 mcg tablet 50 mcg PO .QD cholecalciferol (vitamin D3) [Vitamin D3] 25 mcg (1,000 unit) capsule 50 mcg PO DAILY albuterol sulfate [ProAir HFA] 90 mcg/actuation HFA aerosol inhaler 1 inh inhalation Q4H PRN (Reason: shortness of breath or wheezing) potassium chloride [K-Tab] 20 mEq tablet extended release 20 meq PO DAILY nitroglycerin [Nitrostat] 0.4 mg tablet, sublingual 0.4 mg sublingual Q5M PRN (Reason: chest pain) Rx Instructions: do not exceed 3 doses per episode Discontinued amlodipine 5 mg tablet 5 mg PO DAILY Forms: Portal Instructions
[2023-07-21] MEDS: ONDANSETRON PF 4 MG/2 ML VIAL IV ×2 (11:24→15:29)
--- NOTE | 2023-07-21 11:28 | SWNOTE1 ---
[facility] is able to accept.
--- NOTE | 2023-07-21 11:37 | CM.NOTE ---
07/21/23 11:30 Spoke to pt about whether he wanted this under his [facility] or Medicare. He chose his Medicare.
--- NOTE | 2023-07-21 13:41 | SWNOTE1 ---
MARCELLA spoke with pt's son in room. Pt's other son and grandson live on both sides of pt. He has somone checking on him all throughout the day, between family and other caregivers through the [facility]. MARCELLA explained to pt's son what home health is. MARCELLA also explained to pt's son that he did not want rehab and he was also in observation status and medicare would not pay for rehab due to this. Pt's son would like MARCELLA to call pt's niece, Milly. Milly takes care of all his doctor's appointments, etc. MARCELLA called and left message.
[2023-07-21 14:41] VITALS: BP 125/77; PULSE 60; RESP 18; TEMP 36.6; O2SAT 96
--- NOTE | 2023-07-22 14:18 | CM.DCFOLLOWU ---
Person spoke with: Grand daughter How are you feeling? He is still in significant pain How is your pain? She states his pain is uncontrolled Did you understand your discharge instructions? Yes Do you have any questions about your discharge instructions? No Were you given any prescriptions at discharge? No Were you able to get your prescriptions filled? N/A Do you understand how to take your medications as ordered? Yes Do you have any questions about your follow up appointment and do you plan to keep your follow up appointment? Appointment with pain management tomorrow and definitely plan on going. Is there anything else that you would like to discuss? No, they also have appt with Dr. Elliott on Friday Questions/Comments/Concerns/Other:
== END 2023-07-21 17:40 | disposition home health service (06) ==
LOC: ER 20:58 → MS 21:45
PROVIDERS: Personal Emergency Response Attendant; Registered Nurse; Admitting Provider Internal Medicine; Emergency Provider Internal Medicine; PCP Internal Medicine; Visit Provider Internal Medicine
DX: M54.50 Low back pain, unspecified (principal); R26.2 Difficulty in walking, not elsewhere classified; I13.0 Hypertensive heart and chronic kidney disease with heart failure and stage 1 through stage 4 chronic kidney disease, or unspecified chronic kidney disease; I48.0 Paroxysmal atrial fibrillation; E11.22 Type 2 diabetes mellitus with diabetic chronic kidney disease; I50.32 Chronic diastolic (congestive) heart failure; E03.9 Hypothyroidism, unspecified; F32.A Depression, unspecified; F41.9 Anxiety disorder, unspecified; E78.00 Pure hypercholesterolemia, unspecified; M48.061 Spinal stenosis, lumbar region without neurogenic claudication; K21.9 Gastro-esophageal reflux disease without esophagitis; M47.26 Other spondylosis with radiculopathy, lumbar region; G89.4 Chronic pain syndrome; E87.6 Hypokalemia; M06.9 Rheumatoid arthritis, unspecified; M10.9 Gout, unspecified; M19.90 Unspecified osteoarthritis, unspecified site; K58.9 Irritable bowel syndrome, unspecified; H91.90 Unspecified hearing loss, unspecified ear; N18.30 Chronic kidney disease, stage 3 unspecified; G47.30 Sleep apnea, unspecified; Z79.891 Long term (current) use of opiate analgesic; Z98.890 Other specified postprocedural states; Z86.718 Personal history of other venous thrombosis and embolism; Z85.51 Personal history of malignant neoplasm of bladder; Z96.652 Presence of left artificial knee joint; Z79.899 Other long term (current) drug therapy; Z79.890 Hormone replacement therapy; Z90.89 Acquired absence of other organs; Z87.442 Personal history of urinary calculi; Z85.46 Personal history of malignant neoplasm of prostate; Z95.818 Presence of other cardiac implants and grafts
CPT/HCPCS: 36415; 72131; 73502; 80048; 80053; 81003; 82948; 83735; 85025; 85027; 85652; 86140; 96372; 96374; 96375; 96376; 97161; 97165; 97530; 99285; G0328; G0378; J1170; J1650; J2405; J2930; Q0162

== ENCOUNTER 2023-08-21 21:25 | Inpatient (IN) | payer MEDICARE, SELFPAY ==
[2023-08-21] VITALS (14 sets, daily range): BP systolic 111–174; BP diastolic 62–97; PULSE 70–85; RESP 12–22; TEMP 36.9; O2SAT 95–99; BMI 25.1
--- OUTSIDE RECORDS SUMMARY | 2023-08-21 21:34 | XMS_ITS | CCD ---
Author Name Unknown Address [address] [place] [address] Organization [facility] Care Team Providers Care Dietary Supervisor Name Role Phone PHYSICIAN, DEFAULT Unavailable Unavailable PHYSICIAN, DEFAULT Unavailable Unavailable KIERA LOMBARDO Primary Care Physician [phone] Franky Veronica Primary Care Provider SHAIKH ELLIOTT Primary Care Physician [phone] AURELIO DURAES, TRISTIN Referring Unava ilable VERONICA, [...] Admitting Unavailable MOREJON ., CALVIN Consulting Unavailable [facility] Primary Care Unavailable WINSTON ., DR PAULINE Ring Attending Unavailable WINSTON ., DR PAULINE Ring Admitting Unavailable [facility], [facility] Primary Care Unavailable WEST, DR LEEANN Valles Consulting Unavailable MOUKARBEL, DR WALLS Admitting Unavailable MOUKARBEL, DR WALLS Attending Unavailable MOUKARBEL, DR WALLS Consulting Unavailable [facility], [facility] Primary Care Unavailable AKKINA, REMY Admitting Unavailable AKKINA, REMY Attending Unavailable WINSTON ., DR PAULINE Ring Consulting Unavailable AKKINA, REMY Consulting Unavailable REQUEST, DR NONE LISTED Primary Care Unavaila ble NILL ., DR HYMAN Admitting Unavailable NILL ., DR HYMAN Attending Unavailable NILL ., DR HYMAN Consulting Unavailable [facility], [facility] Consulting Unavailable NEFCY, BRITTANIE Consulting Unavailable [facility], [facility] Primary Care Unavailable VERGARA ., DR JASSO Admitting Unavailable VERGARA ., DR JASSO Attending Unavailable VERGARA ., DR JASSO Consulting Unavailable [facility], [facility] Primary Care Unavailable WINSTON ., DR PAULINE Ring Consulting Unavailable WINSTON ., DR PAULINE Ring Admitting Unavailable WINTSON ., DR PAULINE Ring Attending Unavailable LAKSHMIPATHY ., ROGELIO Attending Sweta vailable LAKSHMIPATHY ., ROGELIO Admitting Sweta vailable [facility], [facility] Primary Care Unavailable [facility], [facility] Primary Care Unavailable NILL ., DR HYMAN Attending Unavailable NILL ., DR HYMAN Consulting Unavailable NILL ., DR HYMAN Admitting Unavailable AGUBOSIM, ELIZ Consulting Unavailable DORKOSKLEO KANDICE Consulting Unavailable [facility], [facility] Primary Care Unavailable NILL ., DR HYMAN Attending Unavailable NILL ., DR HYMAN Admitting Unavailable [facility] Primary Care Unavailable VERGARA ., DR JASSO Admitting Unavailable VERGARA ., DR JASSO Attending Unavailable VERGARA ., DR JASSO Consulting Unavailable WINSTON ., DR PAULINE Ring Attending Unavailable WINSTON ., DR PAULINE Ring Consulting Unavailable [facility], [facility] Primary Care Unavailable WINSTON ., DR [...] KAVITA Attending Unavailable MERYNERISSA CHILDRESS Attending Unavailable BARMARITZA NOVOA Attending Unavailable MOUKARBEL, KAVITA Attending Unavailable MERY, NERISSA Referring Unavailable ELTAHAWY, EHAB Referring Unavailable MERY, NERISSA Referring Unavailable Giedraitis , Andrius Deirdre Attending Unavailable Giedraitis MD, Andrius Vyttonya Attending Unavailable Giedraitis MD, Andrius Vytautas Attending Unavailable Giedraitis MD, Andrius Vytautas Attending Unavailable Giedraitis MD, Andrius Vytautelizabeth Attending Unavailable Giedraitis MD, Andrius Vytautelizabeth Attending Unavailable LEXI, Attending Unavailable BOONEWWAD, Attending Unavailable NITESH GANT Attending Unavailable FAWWAD, DE LA O Referring Unavailable CARMINA CROOK Attending Unavailable FAWWAD, DE LA O Referring Unavailable FAWWAD, DE LA O Attending Unavailable CARMINA CROOK Attending Unavailable FAWWAD, DE LA O Referring Unavailable FAWWAD, DE LA O Primary Care Unavailable Mekhi VERGARA Attending Unavailable Mekhi VERGARA Attending Unavailable Mekhi VERGARA Admitting Unavailable Mekhi VERGARA Referring Unavailable Mekhi VERGARA Attending Unavailable Mekhi VERGARA Admitting Unavailable FAWWAD, DE LA O Primary Care Unavailable Mekhi VERGARA Attending Unavailable Allergies Allergy Classification Reported Allergen(s) Allergy Type Date of Onset Reaction(s) Facility (10 sources) Acetaminophen / HYDROcodone; Translations: [acetaminophen-hydr ocodone] Drug Allergy Nausea and vomiting [facility] (16 sources) Acetaminophen / oxyCODONE; Translations: [acetaminophen-oxyc odone] Drug Allergy 06-03-20 16 Vomiting [facility] (18 sources) tiZANidine; Translations: [tizanidine] Drug Allergy 05-11-20 19 Mental Status Change, Vomiting [facility] (11 sources) traMADol; Translations: [tramadol] Drug Allergy 02-28-20 22 Hallucinations [facility] (2 sources) Acetaminophen / oxyCODONE; Translations: [OXYCODONE-ACETAMIN OPHEN] Drug Allergy 06-03-20 16 [facility] (2 sources) Acetaminophen / HYDROcodone Drug Allergy 06-03-20 16 [facility] (2 sources) Acetaminophen / oxyCODONE Drug Allergy 06-03-20 16 [facility] (2 sources) cyclobenzaprine Drug Allergy 07-18-19 17 [facility] (1 source) tiZANidine Drug Allergy [facility] (2 sources) traMADol Drug Allergy 06-12-20 16 [facility] Medications Current Medications Medication Drug Class(es) Dates Sig (Normalized) Sig (Original) [facility] oral capsule (4 sources) Start: 06-01-2019 take 1 capsule by mouth twice daily [facility] oral capsule cap(s), Oral, BID, Refill(s) 0, Prophylaxis Start Date: 06/01/19 Status: Ordered [id number] actuat albuterol 0.09 mg/actuat metered dose [...] instructed . allopurinol 300 mg oral tablet (15 sources) Xanthine Oxidase Inhibitor Start: 06-01-20 take 1 tablet by mouth once daily allopurinol 300 mg Tab 300 mg = 1 tab(s), Oral, Daily, Refills(s) 0, Gout pain Start Date: 06/01/19 Status: Ordered Comment on above: Take 300 mg by mouth once daily. ALPRAZolam 0.5 mg oral tablet (2 sources) Benzodiazepine Start: 06-20-20 alprazolam 0.5 mg Tab Refills(s) 0 Start Date: 06/20/23 Status: Ordered amLODIPine 5 mg oral tablet (8 sources) Dihydropyridine Calcium Channel Juliana Start: 07-10-19 End: 05-10-20 take 5 mg by mouth once daily amlodipine 5 mg, Oral, Daily, Refills(s) 0, High blood pressure Start Date: 07/10/21 Status: Ordered Comment on above: Take 5 mg by mouth o nce daily. aspirin 81 mg oral capsule (18 sources) Platelet Aggregation Inhibitor, Nonsteroidal Anti-inflammatory Drug [...] once daily. atorvastatin 20 mg oral tablet (14 sources) HMG-CoA Reductase Inhibitor Start: 10-16-19 take 1 tablet by mouth once daily atorvastatin 20 mg Tab 20 mg = 1 tab(s), Oral, Daily, Refills(s) 0 Start Date: 10/15/21 Status: Ordered Comment on above: Take 20 mg by mouth once daily. baclofen 10 mg oral tablet (14 sources) gamma-Aminobutyric Acid-ergic Agonist Start: 10-16-19 take 1 tablet by mouth at bedtime baclofen 10 mg Tab 10 mg = 1 tab(s), Oral, Bedtime, Refills(s) 0 Start Date: 10/15/21 Status: Ordered Comment on above: Take 10 mg by mouth three times daily. Centrum Silver oral tablet (9 sources) Start: 06-01-20 take 1 tablet by mouth once daily Centrum Silver oral tablet 1 tab(s), Oral, Daily, Refill(s) 0, Prophylaxis Start Date: 06/01/19 Status: Ordered cetirizine hydrochloride 10 mg oral capsule (5 sources) Histamine-1 Receptor Antagonist Start: 04-22-20 take 1 capsule by mouth once daily as needed cetirizine 10 mg oral capsule 10 mg = 1 cap(s), Oral, Daily, PRN for allergy symptoms, Refills(s) 0 Start Date: 04/22/22 Status: Ordered clopidogrel 75 mg oral tablet (3 sources) P2Y12 Platelet Inhibitor Start: 12-24-19 clopidogrel 75 mg Tab Refills(s) 0 Start Date: 12/23/22 Status: Ordered dapagliflozin 5 mg oral tablet (11 sources) Sodium-Glucose Cotransporter 2 Inhibitor Start: 04-22-20 [...] hydrochloride 180 mg extended release oral capsule (11 sources) Calcium Channel Juliana Start: 2 diltiazem CD 180 mg/24 hours Cap-ER 180 mg = 1 cap(s), Oral, Daily, Refills(s) 0 Start Date: 04/22/22 Status: Ordered Comment on above: Take 180 mg by mouth once daily. donepezil hydrochloride 10 mg oral tablet (15 sources) Start: 9 take 1 tablet by [...] above: three times daily. dorzolamide / Timolol (9 sources) Carbonic Anhydrase Inhibitor, beta-Adrenergic Juliana Start: 2 take 1 drop(s) into the eye(s) twice daily dorzolamide-timolol ophthalmic 1 drop, Eye-Both, BID, Refill(s) 0, Glaucoma, Other (see comment) Start Date: 07/10/21 Status: Ordered escitalopram 5 mg oral tablet (2 sources) Serotonin Reuptake Inhibitor Start: 3 escitalopram 5 mg oral tablet Refills(s) 0 Start Date: 06/20/23 Status: Ordered famotidine 20 mg oral tablet (15 sources) Histamine-2 Receptor Antagonist Start: 2 take 10 mg by mouth once daily [...] sulfate 325 mg delayed release oral tablet (11 sources) Start: 2021 take 1 tablet by [...] on above: Take 1 tablet by ravi once daily. furosemide 40 mg oral tablet (11 sources) Loop Diuretic Start: 2021 take 1 [...] Refills(s) 0 Start Date: 10/15/21 Status: Ordered glipiZIDE 5 mg oral tablet (2 sources) Sulfonylurea Start: 2022 glipiZIDE 5 mg Tab Refills(s) 0 Start Date: 06/20/23 Status: Ordered hydroCHLOROthiazide 25 mg / losartan [...] Ordered Inulin / Lactobacillus rhamn osus GG (9 sources) Start: 04-22-[address] [facility] Start Date: 04/22/22 Status: Ordered Start: 06-01-2019 take 1 tablet by ravi th once daily [facility] 1 tab, Oral, Daily, Refill(s) [...] Ordered levothyroxine sodium 0.05 mg oral tablet (11 sources) l-Thyroxine Start: 10-15-2021 take 1 tablet [...] morning. losartan potassium 100 mg oral tablet (11 sources) Angiotensin 2 Receptor Juliana Start: 04-22-2022 take 1 tablet by mouth once daily losartan 100 mg Tab 100 mg = 1 tab(s), Oral, Daily, Refills(s) 0 Start Date: 04/22/22 Status: Ordered Comment on above: Take 100 mg by mouth once daily. magnesium oxide 400 mg oral tablet (15 sources) Start: 04-22-2022 take 1 tablet by [...] daily. metoprolol tartrate 25 mg oral tablet (15 sources) beta-Adrenergic Juliana Start: 06-01-2019 take 1 [...] mouth twice daily. Nitro 0.4 mg Tab (8 sources) Start: 07-10-2021 Nitro 0.4 mg Tab [...] tablet (6 sources) Proton Pump Inhibitor Start: take 1 tablet by mouth once daily pantoprazole 40 mg Oral EC Tab 40 mg = 1 tab(s), Oral, Daily, # 30 tab(s), Refills(s) 0, Pharmacy: [facility], 177.8, cm, 07/10/21 15:02:00 EST, Height/Length Dosing, 88.6, kg, 07/10/21 15:02:00 EST, Weight Dosing Start Date: 07/10/21 Status: Ordered Start: 07-10-2021 take 1 tablet by ravi once daily pantoprazole 40 mg Oral EC Tab 40 mg = 1 tab(s), Oral, Daily, # 30 tab(s), Refills(s) 0, Pharmacy: [facility], 177.8, cm, 07/10/21 15:02:00 EST, Height/Length Dosing, 88.6, kg, 07/10/21 15:02:00 EST, Weight Dosing Start Date: 07/10/21 Status: Ordered pregabalin 75 mg oral capsule (11 sources) Start: 04-22-2022 take 1 capsule by mouth twice daily pregabalin 75 mg Cap 75 mg = 1 cap(s), Oral, BID, Refills(s) 0 Start Date: 04/22/22 Status: Ordered take 1 capsule by mo [facility] three times daily pregabalin (LYRICA) 50 mg capsule Take 5 0 mg by mouth three times daily. 0 Active Comment on above: Take 50 mg by mouth three times daily. ProAir HFA 90 mcg/inh inhalation aerosol (7 sources) Start: 022 take 2 puff(s) by inhalation every six hours as needed for wheezing ProAir HFA 90 mcg/inh inhalation aerosol 2 puff(s), Inhalation, q6hr as needed for wheezing, Refill(s) 0 Start Date: 10/15/21 Status: Ordered Psyllium (9 sources) Start: 019 Metamucil Oral, Refills(s) 0, Constipation Start Date: [...] Ordered tamsulosin hydrochloride 0.4 mg oral capsule (8 sources) alpha-Adrenergic Juliana Start: take 1 capsule by mouth once daily Flomax 0.4 mg Cap 0.4 mg = 1 cap(s), Oral, Daily, Refills(s) 0 Start Date: 04/22/22 Status: Ordered Comment on above: Take 0.4 mg by mouth once daily. Vitamin D 1000 intl units (25 mcg) Tab (5 sources) Start: take 1 tablet by mouth once daily Vitamin D 1000 intl units (25 mcg) Tab 100 mcg = 4 tab(s), Oral, Daily, Refills(s) 0 Start Date: 04/22/22 Status: Ordered Vitamin D3 (4 sources) Start: Vitamin D3 2,000 International_Unit, Daily, Refills(s) 0, [...] on above: Take 1 tablet by ravi every 4 hours as needed. 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 ciprofloxacin 500 mg oral tablet (7 sources) Quinolone Antimicrobial Start: 06-20-20 Cipro 500 mg Tab 500 mg = 1 tab(s), Oral, As Directed, Pt to take 1 tab the day before procedure and the 2nd tab the day of procedure once completed., # 2 tab(s), Refills(s) 0, Pharmacy: [facility] #[id number], 177, cm, 06/20/23 10:48:00 EST, Height/Length Dosing, 81.9, kg, 06/20/23 10:48:00 EST, Weight Dosing Start Date: 06/20/23 Status: Ordered Start: 07-26-2022 take 1 tablet by ravi th once daily Cipro 250 mg Tab 250 mg = 1 tab(s), Oral, Daily, Take 1 tablet the day before the procedure and 1 tablet after the procedure, # 2 tab(s), Refills(s) 0, Pharmacy: [facility] #[id number], 177.8, cm, 04/22/22 15:44:00 EDT, Height/Length Dosing, 85.4, kg, 04/22/22 15:44:00 EDT,... Start Date: 07/26/22 Status: Ordered Start: 07-10-2021 take 1 tablet by ravi th once daily Cipro 500 mg Tab 500 mg = 1 tab(s), Oral, Daily, Take 1 tablet 07/16/21 and 1 tablet after the procedure 07/17/21, # 2 tab(s), Refills(s) 0, Pharmacy: [place] [id number] [facility], 177.8, cm, 07/24/20 9:23:00 EST, Height/Length [...] Documented Da te Episodic/Chronic Acquired foot deformities (5 sources) Foot-drop 04-22-2022 Episodic Acute cerebrovascular disease (13 sources) Intracranial hemorrhage; Translations: [Nontraumatic intracranial hemorrhage, unspecified] Onset: 05-10-2022 10-15-2021 Chronic Calculus of urinary tract (17 sources) Kidney stone; Translations: [Calculus of kidney] Onset: 02-18-2022 Episodic Cancer of bladder (9 sources) Malignant neoplasm of lateral wall of urinary bladder 06-01-2019 Chronic Cancer of bladder (8 sources) History of malignant neoplasm of bladder; Translations: [Personal history of malignant neoplasm of bladder] Onset: 04-22-2022 Episodic Cancer of prostate (20 sources) History of malignant neoplasm of prostate; Translations: [Personal history of malignant neoplasm of prostate] Onset: 08-01-2015 06-01-2019 Episodic Cancer; other and unspecified primary (9 sources) H/O: malignant neoplasm 06-01-2019 Episodic Cardiac dysrhythmias (20 sources) Atrial fibrillation; Translations: [Paroxysmal atrial fibrillation] Onset: 02-02-2022 04-22-2022 Chronic Chronic kidney disease (20 sources) Anemia in chronic kidney disease; Translations: [Chronic kidney disease] Onset: 11-09-2021 10-15-2021 Chronic Chronic obstructive pulmonary disease and bronchiectasis (14 sources) Chronic obstructive lung disease; Translations: [Chronic [...] Coronary arteriosclerosis; Translations: [Atherosclerotic heart disease of nikolai coronary artery without angina pectoris] Onset: 02-12-2022 [...] dementia, and amnestic and other cognitive disorders (14 sources) Dementia; Translations: [Dementia associated with another disease] Onset: 11-27-2021 10-15-2021 Chronic Diabetes mellitus with complications (1 source) Type 2 diabetes mellitus with diabetic chronic kidney disease; Translations: [TYPE 2 DM W/DIABETIC CKD] Onset: 02-12-2022 Chronic Diabetes mellitus without complication (14 sources) Diabetes mellitus; Translations: [Type 2 diabetes mellitus without complication] Onset: 11-01-2021 10-11-2021 Chronic Disorders of lipid metabolism (17 sources) Hyperlipidemia; Translations: [Hypertriglyceridemia ] Onset: 11-27-2021 10-11-2021 Chronic Diverticulosis and diverticulitis (10 sources) Diverticula of intestine; Translations: [Diverticulosis of intestine, part unspecified, without perforation or abscess without bleeding] Onset: 10-09-2021 Chronic Esophageal disorders (20 sources) Obstruction of esophagus; Translations: [Esophageal obstruction] Onset: 10-09-2021 Chronic Esophageal disorders (1 source) Esophageal disorders; Translations: [Gastroesophageal reflux disease with esophagitis, unspecified whether hemorrhage] Onset: 05-10-2022 Essential hypertension (17 sources) Hypertensive disorder; Translations: [Essential hypertension] Onset: 08-13-2017 10-11-2021 Chronic Genitourinary symptoms and ill-defined conditions (18 sources) Urge incontinence of urine; Translations: [Unspecified urinary incontinence] Onset: 11-27-2021 06-01-2019 Chronic Genitourinary symptoms and ill-defined conditions (20 sources) Dysuria; Translations: [Foul smelling urine] Onset: 11-27-2021 06-01-2019 Episodic Gout and other crystal arthropathies (14 sources) Gout; Translations: [Gout, unspecified] Onset: 02-12-2022 10-15-2021 Chronic Hemorrhoids (20 sources) Hemorrhoids; Translations: [Unspecified hemorrhoids] Onset: 10-09-2021 Episodic Hyperplasia of prostate (20 sources) Benign prostatic hypertrophy with outflow obstruction; [...] Chronic Inflammatory conditions of male genital organs (7 sources) Prostatitis; Translations: [Inflammatory disease of prostate, unspecified] Onset: 04-22-2022 Episodic Late effects of cerebrovascular disease (1 source) Dysarthria following cerebral infarction; Translations: [DYSARTHRIA FOLLOW CEREBRAL INFARCT] Onset: 11-27-2021 Chronic Nutritional deficiencies (1 source) Vitamin D deficiency, unspecified; Translations: [VITAMIN D DEFICIENCY UNSPECIFIED] Onset: 11-27-2021 Chronic Other and unspecified benign neoplasm (10 sources) Polyp of colon; Translations: [Polyp of colon] Onset: 10-09-2021 Episodic Other and unspecified benign neoplasm (9 sources) History of polyp of colon 08-21-2021 Episodic Other circulatory disease (2 sources) Presence of other cardiac implants and grafts; Translations: [Presence of other cardiac implants and grafts] Onset: 10-18-2022 Chronic Other circulatory disease (5 sources) History of cerebrovascular accident 04-22-2022 Episodic Other connective tissue disease (1 source) Other muscle spasm; Translations: [OTHER MUSCLE SPASM] Onset: 10-28-2022 Episodic Other ear and sense organ disorders (5 sources) Hearing loss 04-22-2022 Chronic Other gastrointestinal disorders (10 sources) Dysphagia; Translations: [Dysphagia, unspecified] Onset: 10-09-2021 Episodic Other nervous system disorders (2 sources) Other chronic pain; Translations: [OTHER CHRONIC PAIN] Onset: 08-01-2022 Chronic Other nervous system disorders (1 source) Polyneuropathy, unspecified; Translations: [POLYNEUROPATHY UNSPECIFIED] Onset: 02-18-2022 Chronic Other nutritional; endocrine; and metabolic disorders (1 source) Hypocalcemia; Translations: [HYPOCALCEMIA] Onset: 02-12-2022 Chronic Other nutritional; endocrine; and metabolic disorders (8 sources) Body mass index 25-29 - overweight 10-16-2021 Episodic Other screening for suspected conditions (not mental disorders or infectious disease) (4 sources) Raised prostate specific antigen; Translations: [Rising PSA 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] Onset: 12-23-2022 Episodic Parkinson`s disease (9 sources) Parkinson's disease; Translations: [Parkinson's disease] Onset: [...] cervical region] Onset: 02-14-2022 Episodic Thyroid disorders (13 sources) Hypothyroidism; Translations: [Hypothyroidism, unspecified] Onset: 07-10-2021 10-15-2021 Chronic Unclassified (9 sources) Drug therapy finding 06-01-2019 Unclassified (8 sources) Recurrent irreducible right inguinal hernia 10-16-2021 Unclassified (4 sources) LOW BACK PAIN, UNSPECIFIED; Translations: [LOW BACK PAIN, UNSPECIFIED] Onset: 08-01-2022 Unclassified (1 source) CHRN KIDNEY DISEASE STG 3 UNSP; Translations: [CHRN KIDNEY DISEASE STG 3 UNSP] Onset: 02-12-2022 Urinary tract infections (9 sources) Recurrent urinary tract infection 06-01-2019 Episodic [...] 11-09-2021 Episodic Other aftercare (1 source) Other penitentiary (current) drug therapy; Translations: [OTH SENIOR CARE CURRENT DRUG THERAPY] Onset: 02-12-2022 Episodic Other aftercare (1 source) long term care social worker (current) use of aspirin; Translations: [SENIOR CARE CURRENT USE OF ASPIRIN] Onset: 02-12-2022 Episodic Other aftercare (1 source) long term care social worker (current) use of anticoagulants; Translations: [SENIOR CARE CURRNT USE ANTICOAGULANTS] Onset: 11-27-2021 Episodic Other aftercare (2 sources) halfway (current) use of antibiotics; Translations: [halfway (current) use of antibiotics] Onset: 10-18-2022 Episodic [...] Test Name Value Interpretation Reference Range Facility CHEMISTRYOrdered By: SYSTEM SYSTEM on 08-19-2023 PSA Total 3.7 ng/mL High 0.1 - 3.5 ng/mL [facility] Comment on above: Interpretive Data: T he concentration of PSA determined by different manufacturers can vary due to differences in assay methods and reagent specificity. Values obtained from different assay methods cannot be used interchangeably. The methodology used for this result was chemiluminescence using [employer] giddy Hybritech PSA reagent. Consent for Treatmenton 08-07 Consent for Treatment [id number] Normal [facility] Consent for Treatment [id number] Normal [facility] Operative Reporton Operative Report Patient: BEN GUADALUPE Age: 87 years Sex: Male : 1935 Associated Diagnoses: None Author: Mekhi VERGARA MD Procedure Operative Information Details: Date/ Time: 08/19/2023 16:16:00. Pre-Op Dx: Hx of Bladder CA - Z85.51. Post-Op Dx: Same. Anesthesia Type: Local. Procedure: [...] the Cystoscope is introduced. The Urethra is: bulb stricture but able to get scope through this.. The Prostatic Urethra is: Unobstructed. The Bladder is: Trabeculated (Moderate (2), no b.t.). The ureteral orifices: Show efflux of clear urine. Specimens Removed: Bladder wash sent for FISH and Cytology test. Devices Implanted: None. Removal: Cystoscope is removed, The patient tolerated it well. Postoperative Information Discharge: Patient is discharged home with antibiotic coverage, Follow up arranged. Normal [facility] Comment on above: Result Comment: Elec tronically Signed By: URSULA WORKMAN, Mekhi Mortensen\Date and Time Signed: 08/19/23 16:18 EST PSA Totalon 08-19-2023 PSA Total 3.7 ng/mL High 0.1-3.5 [facility] Comment on above: Result Comment: The concentration of PSA determined by different manufacturers can vary due to differences in assay methods and reagent specificity. Values obtained from different assay methods cannot be used interchangeably. The methodology used for this result was chemiluminescence using [employer] Access Hybritech PSA reagent. Performed By: #### 1 [id number] ####[facility] [id number] [place] [address] Reminderson 07-03-2023 Reminders - From: Alaina Dickson To: EU - Recalls Ursula; Cc: Alaina Dickson; Sent: 10/16/2022 14:04:20 EDT Show up: 06/06/2023 14:04:00 EST Subject: cysto/fish/cytol Due Date/Time: 06/23/2023 14:04:00 EST Reminder/Recall Patient is due in Jul 2023 for 1 year cysto/fish/cytol (bt ck) l/m on Milly per pt request from appt 06/20/23.LG Spoke to Milly, pt sched for 07/22/23 at [facility]. Confirmation mailed. Patient will be due in Jul 2024, 1 year cysto/fish/cytol Normal [facility] Ambulatory Visit Summaryon 1 08-21-2022 Ambulatory Visit Summary BEN GUADALUPE :1935 Visit Date:06/20/2023 Ambulatory Visit Instructions Your Diagnosis Rising PSA 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 Urinary retention Prostatitis BPH with urinary obstruction Urge incontinence History of bladder cancer Tests Performed Urnls Dip Stick Auto w/o Microscopy POC 15213 Your Care Team Attending Physician - Mekhi VERGARA MD Primary Care Physician - SHAIKH ELLIOTT MD This Is Your Medications List ciprofloxacin (Cipro 500 mg Tab) doxycycline (doxycycline hyclate 100 mg Tab) Contact prescribing physician if questions or concerns acetaminophen-hydrocodone ([place] 325 mg-5 mg oral tablet) albuterol (ProAir [...] (glipiZIDE 5 mg Tab) lactobacillus rhamnosus GG ([facility]) levothyroxine (levothyroxine 50 mcg (0.05 mg) Tab) [...] with URSULA WORKMAN, GO Scott When: Where: [address] [place] [address]- Medications What How Much When Instructions New ciprofloxacin (Cipro 500 mg Tab) 1 Tablets By Mouth As Directed Pt to take 1 tab the day before procedure and the 2nd tab the day of procedure once completed. Pickup at [facility] #27681 New doxycycline (doxycycline hyclate 100 mg Tab) 1 Tablets By Mouth 2 times a day Duration: 2 Weeks Pickup at [facility] #78020 Unchanged acetaminophen-hydrocodone ([place] 325 mg-5 mg oral tablet) 1 Tablets [...] questions or (more content not included)... Normal [facility] Patient Educationon 06-20-20 Patient Education Infectious [...] these instructions at home: Medicines ? Take opet-qvn-kvbmqtb and prescription medicines only as told by [...] Where to find more information ? National [place] of Diabetes and Digestive and Kidney Diseases: (more content not included)... Normal [facility] Urology Office/Clinic Noteon 06-20-2023 Urology Office/Clinic [...] recent PSA. Pt has been to the [facility] ER 3x since 06/10/23 w/ complaints of [...] of urine, unspecified) Pt has been to [facility] ER 3x since 06/10/23 w/ complaints of [...] -Abx sent Follow-up With When Contact Information URSULA WORKMAN, Mekhi Oh, URL [address] [place] [address]- Additional Instructions: Schedule cysto for b.t. check Patient Education Prostatitis ISilke, personally scribed for Dr. Vergara on 06/20/2023 11:32:00. . Documentation recorded by the scribe, Silke Dupont, accurately reflects the services(s) I performed and decisions made by me. Authenticated by Dr. Vergara on 06/20/2023 11:33:18. Problem List/Past Medical History Ongoing Anemia due to chronic kidney disease Anticoagulated Asymptomatic microscopic hematuria Atrial fibrillation BMI 27 (more content not included)... Normal [facility] Comment on above: Result Comment: Elec tronically Signed By: Mekhi VERGARA MD\.br\Date and Time Signed: 06/20/23 11:33 EST\.br\Electronically Co-Signed By: Silke Dupont\.br\Date and Time Co-Signed: 06/20/23 11:32 EST Office Visiton 03-07-2023 Follow-up visit [id number] Ben Guadalupe 1935 M Date Provider Department Center 03/07/2023 120-ANDREA [place] CONCHIS John Family History Problem Relation Age of Onset Heart failure Mother Prostate cancer Father Coronary artery disease Brother Prostate cancer Brother Family Status - Relation Status Age at Mother Father Brother Level of Service:86650 HI OFFICE/OUTPATIENT ESTABLISHED MOD MDM 30-39 MIN Normal [facility] Ambulatory Visit Summaryon 0 12-23-2022 Ambulatory Visit Summary BEN GUADALUPE :1935 Visit Date:12/23/2022 Ambulatory Visit Instructions Your Diagnosis Rising PSA 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 Urge incontinence BPH with urinary obstruction History of bladder cancer Kidney stones Tests Performed Urnls Dip Stick Auto w/o Microscopy POC 03125 Your Care Team Attending Physician - URSULA WORKMAN, Mekhi Oh Primary Care Physician - SHAIKH ELLIOTT This Is Your Medications List Contact prescribing physician if questions or concerns acetaminophen-hydrocodone ([place] 325 mg-5 mg oral tablet) albuterol (ProAir [...] (Lasix 40 mg Tab) lactobacillus rhamnosus GG ([facility]) levothyroxine (levothyroxine 50 mcg (0.05 mg) Tab) [...] Follow-Up Appointments Friday 3:00 PM EST With: URSULA WORKMAN, Mekhi Oh Where: [facility] Patient Educationon 12-23- 23 Patient Education Oncology Cancer Screening for Men [...] if anything looks unusual. Men with a rcgsmu-kpzk-dkdtnz risk for skin cancer may want to see a medical sales specialist (security installer) for an annual body check. What are the benefits of screening? Cancer screening is done to look for cancer in the very early stages, before it spreads and becomes harder to treat and before you would start to notice symptoms. Finding cancer early improves the chances of successful treatment. It ma (more content not included)... Normal [facility] Urology Office/Clinic Noteon 12-23-2022 Urology Office/Clinic [...] therapy. PSA 05/09/22- 3.92 Previous PSA 04/18/22- 3.27 Still wearing a depends with a pad. [...] URL [facility] [address], [place] [address]- Additional Instructions: 6 mos psa Patient Education [...] ring Urg (more content not included)... Normal [facility] Comment on above: Result Comment: Elec tronically Signed By: Mekhi VERGARA MD\.br\Date and Time Signed: 12/23/22 13:49 EDT\.br\Electronically Co-Signed By: Tierra Anderson\.br\Date and Time Co-Signed: 12/23/22 13:48 EDT POINT OF CARE GLUCOSEon 04-2 Glucose [Mass/Vol] 230 mg/dL Critically high 74-106 T [facility] Comment on above: Performed By: #### P SAD #### [facility] [address] [address] [address] Mason Astudillo Office Visiton 10-18-2022 Follow-up visit [id number] Ben Guadalupe 1935 M Date Provider Department Center 10/18/2022 NERISSA TESFAYE CARD [facility] Family History Problem Relation Age of Onset Heart failure Mother Prostate cancer Father Coronary artery disease Brother Prostate cancer Brother Family Status - Relation Status Age at Mother Father Brother Level of Service:25361 HI OFFICE/OUTPATIENT ESTABLISHED LOW MDM 20-29 MIN Reason for Visit and Comments: Coronary Artery Disease [187] Atrial Fibrillation [80] Normal [facility] ANESon 10-11-2022 ANES -------- Attestation signed by Rosi [...] Patient: Ben Guadalupe Procedure Information Date/Time: 10/11/22 09 Procedure: TRANSESOPHAGEAL ECHO (KINZA) Location: [facility] Vascular Lab Clinical [...] with fellow and attending. Additional Equipment Requests [facility] HPon 10-11-2022 HP -------- Attestation signed by Rosi Stone MD [...] there are no changes to the H&P. [facility] Provider Letteron 09-13-2022 Provider Letter (Inserted Image. Sweta ble to display) September 13, 2022 BEN GUADALUPE [facility] [address] [address] BEN GUADALUPE 1935 Dear Mr. Guadalupe, We [...] prompt attention to this matter. Please call [phone] option 3 to be rescheduled. Sincerely, [facility] [address], [place] [address] [facility] 09-11-2022 [facility] Cardiology - [facility] Subjective Ben Guadalupe is a 86 [...] February 2022 he was admitted to the [facility] with palpitations and chest pain. He [...] lower le (more content not included)... Normal [facility] 30on 08-29-2022 30 Problem: Pain - Adul [...] and behaviors that affect risk of falls [place] fall precautions as indicated by assessment Educate [...] maintained or improved Outcome: Progressing Flowsheets (Taken 08/28/202215 by Aleyda Caputo RN) Care Plan - [...] make progress toward the following goals. Normal [facility] DSon 08-29-2022 DS -------- Attestation signed by Kavita Danielle MD at 08/30/2022 1:55 PM I discussed the patient on the same date of service as the Non-Physician Provider Maritza Kirkland. Teaching Physician's Revisions: None Admission Admitted 08/27/2022 for Paroxysmal atrial fibrillation Discharge Diagnosis Paroxysmal atrial fibrillation ([facility]) Discharge Disposition Home or [...] HYDROcodone-acetaminophen 5-325 mg tablet Commonly known as: [place] levothyroxine 50 mcg tablet Commonly known as: [...] Medications These medications were sent to [facility] - [address] [place] [address] [place] [address], [facility] [address] atorvastatin 40 mg tablet clopidogrel 75 mg [...] reduce the risk of stroke given elevated [id number] score of 5 due to age, hypertension, [...] needs long-term anticoagulatio (more content not included)... Normal [facility] NURSNOTEon 08-29-2022 NURSNOTE Discharge instructio ns provided to patient and signed copy in the chart. Pt denies further questions at this time. Normal [facility] NURSNOTE Rn assessed patient at beginning of shift and TR band was already deflated on the L radial cath site. Site was clean, dry, and intact with no signs of bleeding. Rn replaced TR band with gauze and transparent dressing and continued to do cath checks. Normal [facility] 30on 08-28-2022 30 Problem: Pain [...] and behaviors that affect risk of falls [place] fall precautions as indicated by assessment Educate patient/family on patient safety, including physical limitations Instruct patient to call for assistance with activity based on assessment Modify environment to reduce risk of injury Consider OT/PT consult to assist with strengthening/mobility Problem: Discharge Planning Goal: Discharge to home or other facility with appropriate resources Outcome: Progressing Flowsheets (Taken 08/28/2022814) Discharge to home or other facility with [...] maintained or improved Outcome: Progressing Flowsheets (Taken 08/28/2022814) Care Plan - Patient's Chronic Conditions and [...] maintained or improved Outcome: Progressing Flowsheets (Taken 08/28/2022814) Care Plan - Patient's Chronic Conditions and [...] shift include stable site & HR Normal [facility] ANESon 08-28-2022 ANES -------- Attestation signed by Nishi Cheney MD at 08/28/2022 3:17 PM Nishi Cheney MD, MPH, [facility], [facility], [facility] Interventional Cardiology Pager Email: [email or web address] Patient: Ben Guadalupe Procedure Information Date/Time: 08/28/22 1013 Procedure: Left heart cath Location: [facility] EARLY CHILDHOOD DIRECTOR [address] / [facility] (Cath) Providers: Nishi Cheney [...] fellow and attending. Additional Equipment Requests Normal [facility] BASIC METABOLIC PANELon 08-08 Anion gap [Moles/Vol] 12 mmol/L Normal 7-20 [facility] Comment on above: Performed By: #### L [id number] ####[facility] (BEAKER)[address] [place] [address] Calcium [Mass/Vol] 8.5 mg/dL Low 8.6-10.3 [facility] Comment on above: Performed By: #### L [id number] ####[facility] ([facility] [place] [address] Chloride [Moles/Vol] 104 mmol/L Normal 98-107 [facility] Comment on above: Performed By: #### L [id number] ####[facility] ([facility] [place] [address] CO2 [Moles/Vol] 25 mmol/L Normal 21-31 [facility] Comment on above: Performed By: #### L [id number] ####[facility] ([facility] [place] [address] Creatinine [Mass/Vol] 1.05 mg/dL Normal 0.70-1.30 [facility] Comment on above: Performed By: #### L [id number] ####[facility] ([facility])[address] [place] [address] GLOMERULAR FILTRATION RATE ML/MIN/1.73 SQ M.PREDICTED 64.4 mL/min/1.73m*2 Normal >60.0 [facility] Comment on above: Result Comment: The [facility]???s estimated glomerular filtration rate (eGFR) will no [...] of individuals. Performed By: #### L [id number] ####[facility] ([facility] [place] [address] Glucose [Mass/Vol] 119 mg/dL High 70-100 [facility] Comment on above: Performed By: #### L [id number] ####[facility] ([facility])[address] [place] [address] Potassium [Moles/Vol] 3.6 mmol/L Normal 3.5-5.1 [facility] Comment on above: Performed By: #### L [id number] ####[facility] ([facility])[address] [place] [address] Sodium [Moles/Vol] 137 mmol/L Normal 136-145 [facility] Comment on above: Performed By: #### L [id number] ####[facility] ([facility])[address] [place] [address] Urea nitrogen [Mass/Vol] 21 mg/dL Normal 7-25 [facility] Comment on above: Performed By: #### L [id number] ####[facility] ([facility])[address] [place] [address] UREA NITROGEN/CREATININE (MASS RATIO) IN SER/PLAS 20.00 Normal [facility] Comment on above: Performed By: #### L [id number] ####[facility] ([facility])[address] [place] [address] CBCon 08-28-2022 Erythrocyte distribution width (RBC) [Ratio] 15.0 % Normal 11.5-15.0 [facility] Comment on above: Performed By: #### L [id number] ####[facility] ([facility])[address] [place] [address] ERYTHROCYTE MEAN CORPUSCULAR HEMOGLOBIN CONCENTRATION (G/DL) BY AUTOMATED 33.0 g/dL Normal 32.0-35.0 [facility] Comment on above: Performed By: #### L [id number] ####[facility] ([facility])[address] [place] [address] Hematocrit (Bld) [Volume fraction] 43.6 % Normal 39.0-55.0 [facility] Comment on above: Performed By: #### L [id number] ####[facility] ([facility] [place] [address] Hemoglobin (Bld) [Mass/Vol] 14.4 g/dL Normal 13.0-17.0 [facility] Comment on above: Performed By: #### L [id number] ####[facility] ([facility] [place] [address] IMMATURE PLATELET FRACTION % 1.7 % Normal 0.8-6.3 [facility] Comment on above: Performed By: #### L [id number] ####[facility] ([facility])[address] [place] [address] MCH (RBC) [Entitic mass] 29.4 pg Normal 27.0-33.0 [facility] Comment on above: Performed By: #### L [id number] ####[facility] ([facility])[address] [place] [place] [address] MCV (RBC) [Entitic vol] 89.2 fL Normal 82.0-98.0 [facility] Comment on above: Performed By: #### L [id number] ####[facility] ([facility])[address] [place] [place] [address] PLATELETS (10*3/UL) IN BLOOD AUTOMATED COUNT 124 10*3/uL Low 150-400 [facility] Comment on above: Performed By: #### L [id number] ####[facility] ([facility])[address] [place] [place] [address] RBC (Bld) [#/Vol] 4.89 10*6/uL Normal 4.20-5.70 [facility] Comment on above: Performed By: #### L [id number] ####[facility] ([facility])[address] [place], [place] [address] WBC (Bld) [#/Vol] 6.30 10*3/uL Normal 4.00-10.60 [facility] Comment on above: Performed By: #### L [id number] ####[facility] ([place])[address] [place] [address] HPon 08-28-2022 HP -------- Attestation signed by Nishi Cheney MD at 08/28/2022 3:17 PM Nishi Cheney MD, MPH, [facility], [facility], [facility] Interventional Cardiology Pager Email: [email or web address] H&P reviewed. The patient was examined and there are no changes to the H&P. Normal [facility] CECINOTMarjorieon 08-28-2022 BERNICE Spoke with patient s on Corey on phone updating on the poc and pt needing to have a cardiac cath performed today.Son expresses full understanding of the reason for procedure; RN provided son with RN contact number for any additional questions family may have. Normal [facility] TROPONIN Ion 08-28-2022 Troponin I.cardiac [Mass/Vol] 0.08 ng/mL High 0.00-0.04 [facility] Comment on above: Order Comment: Add t o AM labs please Performed By: #### L [id number] ####[facility] ([place])[address] [place] [address] HPon 08-27-2022 HP H&P reviewed. The fidelia jimenez was examined and there are no changes to the H&P. The patient is a 86 y.o. male with complex prior medical history including Paroxysmal atrial fibrillation, who needs long-term anticoagulation therapy to reduce the risk of stroke given elevated [id number] score of 5 due to age, hypertension, [...] surgery. he would like to proceed. Normal [facility] NURSNOTEon 08-27-[address] Danielle, Maritza Larkin THIRD SHIFT LIEUTENANT at bedside assessing pt, echo being performed at bedside. Normal [facility] NURSNOTE Beside swallow compl eted. Pt successfully passed Normal [facility] TROPONIN Ion 08-27-2022 Troponin I.cardiac [Mass/Vol] 0.25 ng/mL Critically high 0.00-0.04 [facility] Comment on above: Performed By: #### L [id number] ####[facility] ([employer])[address] [place] [address] TYPE AND SCREENon 08-27-2022 AB SCREEN Negative Normal [facility] Comment on above: Performed By: #### L [id number] ####[facility], ABO group Nom (Bld) A Normal [facility] Comment on above: Performed By: #### L [id number] ####[facility], RH TYPE IN BLOOD Negative Normal [facility] Comment on above: Performed By: #### L [id number] ####[facility], BASIC METABOLIC PANELon 08-07 Anion gap [Moles/Vol] 11 mmol/L Normal 7-20 [facility] Comment on above: Performed By: #### L [id number] ####[facility] ([employer])[address] [place] [address] Calcium [Mass/Vol] 8.9 mg/dL Normal 8.6-10.3 [facility] Comment on above: Performed By: #### L [id number] ####[facility] (BEAKER)[address] [place] [address] Chloride [Moles/Vol] 99 mmol/L Normal 98-107 [facility] Comment on above: Performed By: #### L [id number] ####[facility] ([facility] [place] [address] CO2 [Moles/Vol] 32 mmol/L High 21-31 [facility] Comment on above: Performed By: #### L [id number] ####[facility] ([facility])[address] [place] [address] Creatinine [Mass/Vol] 1.12 mg/dL Normal 0.70-1.30 [facility] Comment on above: Performed By: #### L [id number] ####[facility] ([facility])[address] [place] [address] GLOMERULAR FILTRATION RATE ML/MIN/1.73 SQ M.PREDICTED 59.6 mL/min/1.73m*2 Low >60.0 [facility] Comment on above: Result Comment: The [facility]???s estimated glomerular filtration rate (eGFR) will no [...] of individuals. Performed By: #### L [id number] ####[facility] ([facility] [place] [address] Glucose [Mass/Vol] 153 mg/dL High 70-100 [facility] Comment on above: Performed By: #### L [id number] ####[facility] ([facility] [place] [address] Potassium [Moles/Vol] 3.3 mmol/L Low 3.5-5.1 [facility] Comment on above: Performed By: #### L AB15 ####[facility] (BEAKER)[address] [place] [address] Sodium [Moles/Vol] 139 mmol/L Normal 136-145 [facility] Comment on above: Performed By: #### L [id number] ####[facility] (BEAKER)[address] [place] [address] Urea nitrogen [Mass/Vol] 21 mg/dL Normal 7-25 [facility] Comment on above: Performed By: #### L [id number] ####[facility] (BEAKER)[address] [place] [address] UREA NITROGEN/CREATININE (MASS RATIO) IN SER/PLAS 18.75 Normal [facility] Comment on above: Performed By: #### L [id number] ####[facility] ([facility] [place] [address] CBCon 08-20-2022 Erythrocyte distribution width (RBC) [Ratio] 15.0 % Normal 11.5-15.0 [facility] Comment on above: Performed By: #### L [id number] ####[facility] ([facility] [place] [address] ERYTHROCYTE MEAN CORPUSCULAR HEMOGLOBIN CONCENTRATION (G/DL) BY AUTOMATED 34.5 g/dL Normal 32.0-35.0 [facility] Comment on above: Performed By: #### L [id number] ####[facility] (BEAKER)[address] [place] [address] Hematocrit (Bld) [Volume fraction] 44.7 % Normal 39.0-55.0 [facility] Comment on above: Performed By: #### L [id number] ####[facility] (BEAKER)[address] [place] [address] Hemoglobin (Bld) [Mass/Vol] 15.4 g/dL Normal 13.0-17.0 [facility] Comment on above: Performed By: #### L [id number] ####[facility] (BEAKER)[address] [place] [address] MCH (RBC) [Entitic mass] 30.2 pg Normal 27.0-33.0 [facility] Comment on above: Performed By: #### L [id number] ####[facility] ([facility])[address] [place] [address] MCV (RBC) [Entitic vol] 87.6 fL Normal 82.0-98.0 [facility] Comment on above: Performed By: #### L [id number] ####[facility] ([facility])[address] [place] [address] PLATELETS (10*3/UL) IN BLOOD AUTOMATED COUNT 108 10*3/uL Low 150-400 [facility] Comment on above: Performed By: #### L [id number] ####[facility] ([facility])[address] [place] [address] RBC (Bld) [#/Vol] 5.10 10*6/uL Normal 4.20-5.70 [facility] Comment on above: Performed By: #### L [id number] ####[facility] [facility])[address] [place] [address] WBC (Bld) [#/Vol] 4.18 10*3/uL Normal 4.00-10.60 [facility] Comment on above: Performed By: #### L [id number] ####[facility] ([facility])[address] [place] [address] HPon 08-20-2022 HP H&P reviewed. The pa tient was examined and there are no changes to the H&P. Normal [facility] MRSA/MSSA DNA NASALon 2022 MRSA DNA Negative Normal Negative, Invalid [facility] Comment on above: Performed By: #### L [id number] ####[facility] ([facility])[address] [place] [address] MSSA DNA Positive Abnormal Negative, Invalid [facility] Comment on above: Performed By: #### L [id number] ####[facility] ([facility])[address] [place] [address] TYPE AND SCREENon 08-20-2022 AB SCREEN Negative Normal [facility] Comment on above: Performed By: #### L [id number] ####[facility], ABO group Nom (Bld) A Normal [facility] Comment on above: Performed By: #### L [id number] ####[facility], RH TYPE IN BLOOD Negative Normal [facility] Comment on above: Performed By: #### L AB276 ####[facility], Orders Onlyon 08-16-2022 Orders Only [id number] Ben Guadalupe 1935 M Date Provider Department Center 08/16/2022 NERISSA TESFAYE Family History Problem Relation Age of Onset Heart failure Mother Prostate cancer Father Coronary artery disease Brother Prostate cancer Brother Family Status - Relation Status Age at Mother Father Brother Normal [facility] Prep for Procedureon 023 Prep for Procedure [id number] Ben Guadalupe 1935 M Date Provider Department Center 08/16/2022 NERISSA TESFAYE Family History Problem Relation Age of Onset Heart failure Mother Prostate cancer Father Coronary artery disease Brother Prostate cancer Brother Family Status - Relation Status Age at Mother Father Brother Normal [facility] Telephoneon 08-13-2022 Telephone [id number] Ben Guadalupe 1935 Date Provider Department Center 08/13/2022 ANGELES MCKINNEY [facility] [place] [facility] Family History Problem Relation Age of Onset Heart failure Mother Prostate cancer Father Coronary artery disease Brother Prostate cancer Brother Family Status - Relation Status Age at Mother Father Brother Normal [facility] HPon 08-05-2022 [facility] Cardiology - [facility] Subjective Ben Guadalupe is a 86 [...] February 2022 he was admitted to the [facility] with palpitations and chest pain. He [...] vomiting Tizani (more content not included)... Normal [facility] Office Visiton 08-05-2022 Follow-up visit [id number] Ben Guadalupe 1935 M Date Provider Department Center 08/05/2022 NERISSA TESFAYE [facility] Family History Problem Relation Age of Onset Heart failure Mother Prostate cancer Father Coronary artery disease Brother Prostate cancer Brother Family Status - Relation Status Age at Mother Father Brother Level of Service:25328 HI OFFICE/OUTPATIENT ESTABLISHED LOW MDM 20-29 MIN Reason for Visit and Comments: Atrial Fibrillation [80] - Discuss Watchman Coronary Artery Disease [187] Hypertension [124693] Normal [facility] POINT OF CARE GLUCOSEon 01-0 Glucose [Mass/Vol] 203 mg/dL Critically high 74-106 [facility] Comment on above: Performed By: #### U A #### [facility] [address] [address] [address] Mason Astudillo Office Visiton 06-24-2022 Follow-up visit [id number] Ben Guadalupe 1935 Date Provider Department Center 06/24/2022 MARITZA JEWELL [facility] Family History Problem Relation Age of Onset Heart failure Mother Prostate cancer Father Coronary artery disease Brother Prostate cancer Brother Family Status - Relation Status Age at Mother Father Brother Level of Service:37531 HI OFFICE/OUTPATIENT ESTABLISHED SF MDM 10-19 MIN Reason for Visit and Comments: Atrial Fibrillation [80] Coronary Artery Disease [187] Hypertension [784294] Normal [facility] Follow-Upon 05-27-2022 Follow-Up [id number] Ben Guadalupe 1935 M Date Provider Department Center 05/27/2022 KAVITA RITTER [facility] Family History Problem Relation Age of Onset Heart failure Mother Prostate cancer Father Coronary artery disease Brother Prostate cancer Brother Family Status - Relation Status Age at Mother Father Brother Level of Service:15924 HI OFFICE/OUTPATIENT ESTABLISHED MOD MDM 30-39 MIN Reason for Visit and Comments: Coronary Artery Disease [187] Hypertension [631703] Hyperlipidemia [182] LVH [Other] Normal [facility] ANES POSTPROC EVALon 022 ANES POSTPROC EVAL HNO ID: [id number] Author: Kandice Guadalupe MD Service: ? Author Type: Physician Type: Anesthesia Postprocedure Evaluation Filed: 05/17/2022 2:13 PM Note Text: POST ANESTHESIA EVALUATION NOTE : 1935 Procedure Summary Date: 05/17/22 Room / Location: [address] Anesthesia Start: 954 Anesthesia Stop: 120 Procedures: EXAM UNDER ANESTHESIA RECTAL (Anus) HEMORRHOIDECTOMY [...] with this procedure. Documented by Minesh Levy APRN.LATHE SCALPER OPERATOR 05/17/2022 12:02 PM EST SIGNATURE: Kandice Guadalupe MD PATIENT NAME: Ben Guadalupe DATE: May 17, 2022 TIME: 2:13 PM CSN: [id number] Normal [facility] ANES PRE-OPon 05-17-2022 ANES PRE-OP HNO ID: [id number] Author: Kandice Guadalupe MD Service: ? Author Type: Physician Type: Anesthesia Preprocedure Evaluation Filed: 05/17/2022 8:42 AM Note Text: ANESTHESIOLOGY DAY OF SURGERY NOTE : 1935 Procedure Information Date/Time: 05/17/22914 Procedures: EXAM UNDER ANESTHESIA RECTAL (Anus) HEMORRHOIDECTOMY [...] none. Vitals Value Taken Time BP 144/74 05/17/22 0745 Pulse 72 05/17/22 0745 Resp 16 05/17/22 0745 Temp 36.4 ?C (97.5 ?F) 05/17/22 0745 SpO2 99 % 05/17/2245 Facility-Administered Medications as of 05/17/2022 Medication Dose [...] mcg/actuation na (more content not included)... Normal [facility] BRIEF OP NOTon 05-17-2022 BRIEF OP NOT HNO ID: [id number] Author: Tristin Wilcox MD, PhD Service: Colorectal Author Type: Physician Type: Brief Op Note Filed: 05/17/2022 11:34 AM Note Text: BRIEF OPERATIVE NOTE - COLORECTAL SURGERY Log ID: [id number] Surgery/Procedure Date: 05/17/2022 Incision/Procedure Start Time: 10:17 AM Incision Close/Procedure End Time: 11:27 AM Surgeon(s) and Cash On Delivery Clerk(s): Surgeon(s) and Role: * Tristin Wilcox MD, [...] May 17, 2022 TIME: 11:30 AM Normal [facility] Gas and Carbon monoxide pane l (BldV)on 05-17-2022 BASE DEFICIT, VENOUS -2 mmol/L Normal -2-0 [facility] Comment on above: Order Comment: Speci men Type: VENOUS BLOOD SPECIMENOrdering Facility: [facility] Address: [address] [place] [address] Performed By: #### 2 4344-4 ####[facility] [id number] [place] [address] [place] Body temperature 97.52 [degF] Normal [facility] Comment on above: Order Comment: Speci men Type: VENOUS BLOOD SPECIMENOrdering Facility: [facility] Address: [address] [place] [address] Performed By: #### 2 4344-4 ####[facility] [id number] [place] [address] [place] Calcium.ionized (Bld) [Mass/Vol] 1.17 mmol/L Normal 1.08-1.30 [facility] Comment on above: Order Comment: Speci men Type: VENOUS BLOOD SPECIMENOrdering Facility: [facility] Address: [address] [place] [address] Performed By: #### 2 4344-4 ####[facility] LAB[facility]IA [id number] [place] [address] [place] Calcium.ionized adjusted to pH 7.4 (BldA) [Moles/Vol] 1.17 mmol/L Normal 1.08-1.30 [facility] Comment on above: Order Comment: Speci men Type: VENOUS BLOOD SPECIMENOrdering Facility: [facility] Address: [address] [address] Performed By: #### 2 4344-4 ####[facility] [id number] [place] [address] [place] Carboxyhemoglobin (BldV) [Mass fraction] 1.4 % Normal 0.0-2.0 [facility] Comment on above: Order Comment: Speci men Type: VENOUS BLOOD SPECIMENOrdering Facility: [facility] Address: [address] [place], [place] [address] Result Comment: Carb oxyhemoglobin Reference Range for Smokers: 2.0-8.0% Performed By: #### 2 4344-4 ####[facility]IA [id number] [place] [address] [place] CO2 (BldV) [Partial pressure] 37 mm[Hg] Low 42-55 [facility] Comment on above: Order Comment: Speci men Type: VENOUS BLOOD SPECIMENOrdering Facility: [facility] Address: [address] Performed By: #### 2 4344-4 ####[facility] [id number] [place] [address] [place] CO2 [Moles/Vol] 23 mmol/L Low 25-29 [facility] Comment on above: Order Comment: Speci men Type: VENOUS BLOOD SPECIMENOrdering Facility: [facility] Address: [address] [address] Performed By: #### 2 4344-4 ####[facility] [id number] [place] [address] [place] CO2 adjusted to patient's actual temperature (BldV) [Partial pressure] 35 mmHg Low 42-55 [facility] Comment on above: Order Comment: Speci men Type: VENOUS BLOOD SPECIMENOrdering Facility: [facility] Address: [address] [place] [address] Performed By: #### 2 4344-4 ####[facility]IA [id number] [place] [address] [place] Glucose [Mass/Vol] 198 mg/dL High 60-105 [facility] Comment on above: Order Comment: Speci men Type: VENOUS BLOOD SPECIMENOrdering Facility: [facility] Address: [address] [place] [address] Performed By: #### 2 4344-4 ####[facility] [id number] [place] [address] [place] HCO3 (Bld) [Moles/Vol] 22 mmol/L Low 24-28 [facility] Comment on above: Order Comment: Speci men Type: VENOUS BLOOD SPECIMENOrdering Facility: [facility] Address: [address] [place] [address] Performed By: #### 2 4344-4 ####[facility]IA [id number] [place] [address] [place] Hematocrit (Bld) [Volume fraction] 36.4 % Low 39.0-51.0 [facility] Comment on above: Order Comment: Speci men Type: VENOUS BLOOD SPECIMENOrdering Facility: [facility] Address: [address] [place], [place] [address] Performed By: #### 2 4344-4 ####[facility]IA [id number] [place] [address] [place] Hemoglobin (Bld) [Mass/Vol] 11.8 g/dL Low 13.0-17.0 [facility] Comment on above: Order Comment: Speci men Type: VENOUS BLOOD SPECIMENOrdering Facility: [facility] Address: [address] Performed By: #### 2 4344-4 ####[facility]IA [id number] [place] [address] [place] Lactate [Moles/Vol] 1.9 mmol/L Normal 0.5-2.2 [facility] Comment on above: Order Comment: Speci men Type: VENOUS BLOOD SPECIMENOrdering Facility: [facility] Address: [address] Performed By: #### 2 4344-4 ####[facility] LABIA [id number] [place] [address] [place] Methemoglobin (Bld) [Mass fraction] 1.1 % Normal 0.0-1.5 [facility] Comment on above: Order Comment: Speci men Type: VENOUS BLOOD SPECIMENOrdering Facility: [facility] Address: [address] Performed By: #### 2 4344-4 ####[facility]IA [id number] [place] [address] [place] O2 THERAPY RA=Room Air Normal [facility] Comment on above: Order Comment: Speci men Type: VENOUS BLOOD SPECIMENOrdering Facility: [facility] Address: [address] Performed By: #### 2 4344-4 ####[facility]IA [id number] [place] [address] [place] Oxygen (BldV) [Partial pressure] 50 mm[Hg] High 35-45 [facility] Comment on above: Order Comment: Speci men Type: VENOUS BLOOD SPECIMENOrdering Facility: [facility] Address: [address] Performed By: #### 2 4344-4 ####[facility]CLIA [id number] [place] [address] [place] Oxygen adjusted to patient's actual temperature (BldV) [Partial pressure] 48 mmHg High 35-45 [facility] Comment on above: Order Comment: Speci men Type: VENOUS BLOOD SPECIMENOrdering Facility: [facility] Address: [address] [place], [place] [address] Performed By: #### 2 4344-4 ####[facility]CLIA [id number] [place] [address] [place] Oxygen saturation in Venous blood 82 % Normal 60-85 [facility] Comment on above: Order Comment: Speci men Type: VENOUS BLOOD SPECIMENOrdering Facility: [facility] Address: [address] [place] [address] Performed By: #### 2 4344-4 ####[facility]CLIA [id number] [place] [address] [place] Oxyhemoglobin (BldV) [Mass fraction] 80 % Normal 60-85 [facility] Comment on above: Order Comment: Speci men Type: VENOUS BLOOD SPECIMENOrdering Facility: [facility] Address: [address] [place], [place] [address] Performed By: #### 2 4344-4 ####[facility]CLIA [id number] [place] [address] [place] pH (BldV) 7.39 [pH] Normal 7.32-7.42 [facility] Comment on above: Order Comment: Speci men Type: VENOUS BLOOD SPECIMENOrdering Facility: [facility] Address: [address] [place] [address] Performed By: #### 2 4344-4 ####[facility]CLIA [id number] [place] [address] [place] pH adjusted to patient's actual temperature (BldV) 7.40 Normal 7.32-7.42 [facility] Comment on above: Order Comment: Speci men Type: VENOUS BLOOD SPECIMENOrdering Facility: [facility] Address: [address] [place] [address] Performed By: #### 2 4344-4 ####[facility]CLIA [id number] [place] [address] [place] Potassium [Moles/Vol] 2.9 mmol/L Low 3.5-5.0 [facility] Comment on above: Order Comment: Speci men Type: VENOUS BLOOD SPECIMENOrdering Facility: [facility] Address: [address] [place] [address] Performed By: #### 2 4344-4 ####[facility]IA [id number] [place] [address] [place] Sodium [Moles/Vol] 137 mmol/L Normal 136-144 [facility] Comment on above: Order Comment: Speci men Type: VENOUS BLOOD SPECIMENOrdering Facility: [facility] Address: [address] [place] [address] Performed By: #### 2 4344-4 ####[facility]IA [id number] [address] [place] OPERATIVE NOon 05-17-2022 OPERATIVE NO HNO ID: [id number] Author: Tristin Wilcox MD, PhD Service: Colorectal Author Type: Physician Type: Operative Report Filed: 05/31/2022 2:52 PM Note Text: OPERATIVE REPORT LOG ID: [id number] SURGERY DATE: 05/17/2022 INCISION/PROCEDURE START TIME: 10:17 AM INCISION CLOSE/PROCEDURE END TIME: 11:27 AM PREOPERATIVE DIAGNOSIS: Prolapsing, symptomatic, large internal and external hemorrhoids. Colonic polyps. POSTOPERATIVE DIAGNOSIS: Grade 4; Prolapsing, symptomatic, large internal and external hemorrhoids. Colonic polyps. Surgeon(s)/Proceduralist(s) and Cash On Delivery Clerk(s): Surgeon(s) and Role: * Tristin Wilcox MD, [...] with assistance. PATIENT NAME: Ben Guadalupe Normal [facility] POTASSIUM BLDon 05-17-2022 Potassium [Moles/Vol] 3.0 mmol/L Low 3.7-5.1 [facility] Comment on above: Order Comment: Speci men Type: BLOOD SPECIMENOrdering Facility: [facility] Address: [address] [place] [address] Performed By: #### K 1 ####[facility] LABCLIA [id number] [address] SURGICAL PATHOLOGYon 022 CASE REPORT Normal [facility] Comment on above: Order Comment: Speci men Type: TISSUE SPECIMENOrdering Facility: [facility] Address: [address] [place] [address] Result Comment: Surg ica Pathology Report Case: [id number] Authorizing Provider: Tristin Wilcox, Collected: 05/17/2022 10:25 AM , PhD Ordering Location: Admitting Received: 05/17/2022 01:44 PM Pathologist: Daryn June MD Specimens: A) - COLON POLYP, RIGHT COLON POLYP B) - COLON POLYP, LEFT COLON POLYP C) - RECTAL POLYP D) - HEMORRHOID, left lateral E) - HEMORRHOID, right posterior Performed By: #### S ####[facility] LABCLIA [id number] [address] LABCLIA [id number] [address] CLINICAL HISTORY Normal [facility] Comment on above: Order Comment: Speci men Type: TISSUE SPECIMENOrdering Facility: [facility] Address: [address] [place] [address] Result Comment: Pre- op diagnosis: Fourth degree hemorrhoids [K64.3] Performed By: #### S ####[facility] LABIA [id number] [address] LABCLIA [id number] [address] FINAL DIAGNOSIS Normal [facility] Comment on above: Order Comment: Speci men Type: TISSUE SPECIMENOrdering Facility: [facility] Address: [address] [place] [address] Result Comment: A. C olon, right, polyp, biopsy: - Tubular adenoma. B. Colon, left, polyp, biopsy: - Tubular adenoma. C. Rectum, polyp, biopsy: - Tubular adenoma. D. Anus, left lateral, hemorrhoid, excision: - Fibroepithelial polyp. E. Anus, right posterior, hemorrhoid, excision: - Dilated hemorrhoidal varices. Performed By: #### S ####[facility] LABCLIA [id number] [address] LABCLIA [id number] [address] FINAL PERFORMING LAB Normal [facility] Comment on above: Order Comment: Speci men Type: TISSUE SPECIMENOrdering Facility: [facility] Address: [address] [place] [address] Result Comment: Diag nostic interpretation performed at [facility], [address] [place] [address] CLIA# [id number] Cad Developer: Nga Schultz M.D. Performed By: #### S ####[facility] LABCLIA [id number] [address] LABCLIA [id number] [address] GROSS DESCRIPTION A. COLON POLYP Normal [facility] Comment on above: Order Comment: Speci men Type: TISSUE SPECIMENOrdering Facility: [facility] Address: [address] [place] [address] Result Comment: Rece ived in formalin is [...] 0.1 cm. Totally submitted in one cassette. [facility] May 17, 2022 3:41 PM Gross examination performed at [facility], [facility] [place] [address] D. HEMORRHOID Received fresh designated left lateral is a cason-busby portion of skin that measures 4.5 x 1.5 x 1 cm. Sectioning through the specimen reveals hemorrhagic cut surfaces. Family Court Counsellor sections are submitted in 1 cassette. WE May 17, 2022 3:17 PM Gross examination performed at [facility], [facility] [place] [address] E. HEMORRHOID Received fresh designated right posterior is a pink-cason portion of skin that measures 3.9 x 0.6 x 0.6 cm. Sectioning through the specimen reveals hemorrhagic cut surfaces. Family Court Counsellor sections are submitted in 1 cassette. WE May 17, 2022 3:19 PM Gross examination performed at [facility], [facility] [place] [address] Performed By: #### S ####[facility] LABCLIA [id number] [address] STATES OF [facility] LABCLIA [id number] [address] OF [facility] Oralia 05-16-2022 CADY Telephone (KADIE) BEN GUADALUPE ([id number]) 1935 M Date Time Provider Department 05/16/22 [...] Encounter Status:Closed by DELICIA FULLER on 05/16/22 [facility] Telephone (KADIE) BEN GUADALUPE ([id number]) 1935 M Date Time Provider Department 05/16/22 [...] PA-C - Fully Assessed Reason for Visit: Centrifugal Spinner - Other [3602] Prescriptions as of 05/16/2022 [...] by MARIA LUISA GARCIA on 05/16/22 Normal [facility] CBC panel Auto (Bld)on 05-10 Erythrocyte distribution width (RBC) [Ratio] 14.1 % Normal 11.5-15.0 [facility] Comment on above: Order Comment: Speci men Type: BLOOD SPECIMENOrdering Facility: [facility] Address: [address] [place] [address] Performed By: #### 5 8410-2 ####[facility] LABCLIA [id number] [facility] [id number] [place] [address] [place] Hematocrit (Bld) [Volume fraction] 38.9 % Low 39.0-51.0 [facility] Comment on above: Order Comment: Speci men Type: BLOOD SPECIMENOrdering Facility: [facility] Address: [address] [place] [address] Performed By: #### 5 8410-2 ####[facility] LABCLIA [id number] [address] [place] Hemoglobin (Bld) [Mass/Vol] 12.2 g/dL Low 13.0-17.0 [facility] Comment on above: Order Comment: Speci men Type: BLOOD SPECIMENOrdering Facility: [facility] Address: [address] [place] [address] Performed By: #### 5 8410-2 ####[facility] LABCLIA [id number] [address] OF [facility] MCH (RBC) [Entitic mass] 28.4 pg Normal 26.0-34.0 [facility] Comment on above: Order Comment: Speci men Type: BLOOD SPECIMENOrdering Facility: [facility] Address: [address] [place], [place] [address] Performed By: #### 5 8410-2 ####[facility] LABCLIA [id number] [address] STATES OF [facility] MCHC (RBC) [Mass/Vol] 31.4 g/dL Normal 30.5-36.0 [facility] Comment on above: Order Comment: Speci men Type: BLOOD SPECIMENOrdering Facility: [facility] Address: [address] [place], [place] [address] Performed By: #### 5 8410-2 ####[facility] LABCLIA [id number] [address] [place] MCV (RBC) [Entitic vol] 90.5 fL Normal 80.0-100.0 [facility] Comment on above: Order Comment: Speci men Type: BLOOD SPECIMENOrdering Facility: [facility] Address: [address] Performed By: #### 5 8410-2 ####[facility] LABIA [id number] [place] [address] [place] Nucleated RBC (Bld) [#/Vol] 10*3/uL Normal <0.01 [facility] Comment on above: Order Comment: Speci men Type: BLOOD SPECIMENOrdering Facility: [facility] Address: [address] Performed By: #### 5 8410-2 ####[facility] [id number] [place] [address] [place] Platelet mean volume (Bld) [Entitic vol] 10.9 fL Normal 9.0-12.7 [facility] Comment on above: Order Comment: Speci men Type: BLOOD SPECIMENOrdering Facility: [facility] Address: [address] Performed By: #### 5 8410-2 ####[facility] LABIA [id number] [place] [address] [place] Platelets (Bld) [#/Vol] 135 10*3/uL Low 150-400 [facility] Comment on above: Order Comment: Speci men Type: BLOOD SPECIMENOrdering Facility: [facility] Address: [address] [place] [address] Performed By: #### 5 8410-2 ####[facility] LABIA [id number] [place] [address] [place] RBC (Bld) [#/Vol] 4.30 10*6/uL Normal 4.20-6.00 [facility] Comment on above: Order Comment: Speci men Type: BLOOD SPECIMENOrdering Facility: [facility] Address: [address] [place], [place] [address] Performed By: #### 5 8410-2 ####[facility] LABCLIA [id number] [place] [address] [place] WBC (Bld) [#/Vol] 4.75 10*3/uL Normal 3.70-11.00 [facility] Comment on above: Order Comment: Speci men Type: BLOOD SPECIMENOrdering Facility: [facility] Address: [address] [place] [address] Performed By: #### 5 8410-2 ####[facility] LABCLIA [id number] [address] OF [facility] CONFIRM BLOOD TYPEon 022 ABO A Normal [facility] Comment on above: Order Comment: Speci men Type: BLOOD SPECIMENOrdering Facility: [facility] Address: [address] [place] [address] Performed By: #### C ONABO ####[facility] BLOOD BANKCLIA [id number] [place] [address] [place] Rh Nom (Bld) Negative Normal [facility] Comment on above: Order Comment: Speci men Type: BLOOD SPECIMENOrdering Facility: [facility] Address: [address] [place] [address] Performed By: #### C ONABO ####[facility] BLOOD BANKCLIA [id number] [place] [address] [place] Comprehensive metabolic 2000 panelon 05-10-2022 Albumin [Mass/Vol] 4.4 g/dL Normal 3.9-4.9 [facility] Comment on above: Order Comment: Speci men Type: BLOOD SPECIMENOrdering Facility: [facility] Address: [address] [place] [address] Performed By: #### 2 4323-8 ####[facility] LABCLIA [id number] [place] [address] [place] ALP [Catalytic activity/Vol] 54 U/L Normal 38-113 [facility] Comment on above: Order Comment: Speci men Type: BLOOD SPECIMENOrdering Facility: [facility] Address: [address] Performed By: #### 2 4323-8 ####[facility] LABCLIA [id number] [address] [place] ALT [Catalytic activity/Vol] 55 U/L High 10-54 [facility] Comment on above: Order Comment: Speci men Type: BLOOD SPECIMENOrdering Facility: [facility] Address: [address] [address] Performed By: #### 2 4323-8 ####[facility] LABCLIA [id number] [place] [address] [place] Anion gap [Moles/Vol] 12 mmol/L Normal 9-18 [facility] Comment on above: Order Comment: Speci men Type: BLOOD SPECIMENOrdering Facility: [facility] Address: [address] Performed By: #### 2 4323-8 ####[facility] LABCLIA [id number] [address] [place] AST [Catalytic activity/Vol] 27 U/L Normal 14-40 [facility] Comment on above: Order Comment: Speci men Type: BLOOD SPECIMENOrdering Facility: [facility] Address: [address] Performed By: #### 2 4323-8 ####[facility] LABCLIA [id number] [place] [address] [place] Bilirubin [Mass/Vol] 0.3 mg/dL Normal 0.2-1.3 [facility] Comment on above: Order Comment: Speci men Type: BLOOD SPECIMENOrdering Facility: [facility] Address: [address] Performed By: #### 2 4323-8 ####[facility] LABCLIA [id number] [place] [address] [place] Calcium [Mass/Vol] 9.1 mg/dL Normal 8.5-10.2 [facility] Comment on above: Order Comment: Speci men Type: BLOOD SPECIMENOrdering Facility: [facility] Address: [address] [place] [address] Performed By: #### 2 4323-8 ####[facility] LABCLIA [id number] [place] [address] [place] Chloride [Moles/Vol] 100 mmol/L Normal 97-105 [facility] Comment on above: Order Comment: Speci men Type: BLOOD SPECIMENOrdering Facility: [facility] Address: [address] [place] [address] Performed By: #### 2 4323-8 ####[facility] LABCLIA [id number] [place] [address] [place] CO2 [Moles/Vol] 29 mmol/L Normal 22-30 [facility] Comment on above: Order Comment: Speci men Type: BLOOD SPECIMENOrdering Facility: [facility] Address: [address] [place], [place] [address] Performed By: #### 2 4323-8 ####[facility] LABCLIA [id number] [place] [address] [place] Creatinine [Mass/Vol] 1.09 mg/dL Normal 0.73-1.22 [facility] Comment on above: Order Comment: Speci men Type: BLOOD SPECIMENOrdering Facility: [facility] Address: [address] [place], [place] [address] Performed By: #### 2 4323-8 ####[facility] LABCLIA [id number] [place] [address] [place] ESTIMATED GLOMERULAR FILTRATION RATE 67 mL/min/1.73m??? Normal >=60 [facility] Comment on above: Order Comment: Mayito borden Type: BLOOD SPECIMENOrdering Facility: [facility] Address: [address] [place] [address] Result Comment: [place] mated Glomerular Filtration Rate [...] actual GFR. Performed By: #### 2 4323-8 ####[facility] LABIA [id number] [place] [address] [place] Glucose [Mass/Vol] 217 mg/dL High 74-99 [facility] Comment on above: Order Comment: Mayito borden Type: BLOOD SPECIMENOrdering Facility: [facility] Address: [address] [address] Result Comment: The [place] Diabetes Association (ADA) provides guidance for cutoff [...] Standards of Medical Care in Diabetes 2016, [place] [employer]. Diabetes Care. 2016.39(Suppl 1). Performed By: #### 2 4323-8 ####[facility] LABIA [id number] [place] [address] [place] Potassium [Moles/Vol] 3.2 mmol/L Low 3.7-5.1 [facility] Comment on above: Order Comment: Mayito borden Type: BLOOD SPECIMENOrdering Facility: [facility] Address: [address] [id number] Performed By: #### 2 4323-8 ####[facility] LABCLIA [id number] [place] [address] [place] Protein [Mass/Vol] 6.4 g/dL Normal 6.3-8.0 [facility] Comment on above: Order Comment: Speci men Type: BLOOD SPECIMENOrdering Facility: [facility] Address: [address] [address] Performed By: #### 2 4323-8 ####[facility] LABCLIA [id number] [place] [address] [place] Sodium [Moles/Vol] 141 mmol/L Normal 136-144 [facility] Comment on above: Order Comment: Speci men Type: BLOOD SPECIMENOrdering Facility: [facility] Address: [address] [address] Performed By: #### 2 4323-8 ####[facility] LABCLIA [id number] [place] [address] [place] Urea nitrogen [Mass/Vol] 26 mg/dL High 9-24 [facility] Comment on above: Order Comment: Speci men Type: BLOOD SPECIMENOrdering Facility: [facility] Address: [address] [place] [address] Performed By: #### 2 4323-8 ####[facility] LABIA [id number] [place] [address] [place] ECG COMPLETEon 05-10-2022 ECG COMPLETE Ventricular Rate : 7 6 BPM Atrial Rate : 76 BPM P-R Interval : 130 ms QRS Duration : 134 ms Q-T Interval : 442 ms QTC Calculation(Bazett) : 497 ms Calculated P Applegate : 37 degrees Calculated R Applegate : 64 degrees Calculated T Applegate : -10 degrees NORMAL SINUS RHYTHM COMPLETE RIGHT BUNDLE BRANCH BLOCK INFERIOR T WAVE ABNORMALITY ABNORMAL ECG Confirmed by YENNI TANNER MD ([id number]) on 05/14/2022 7:11:13 PM NAME : BEN GUADALUPE PID : [id number] : 1935 Gender : Male Race : ORD : [id number] Procedure Date : May 10 2022 11:57:54 Edit Date : May 14 2022 19:11:14 Diagnosis: NORMAL SINUS RHYTHM COMPLETE RIGHT BUNDLE BRANCH BLOCK INFERIOR T WAVE ABNORMALITY ABNORMAL ECG Confirmed by YENNI TANNER MD ([id number]) on 05/14/2022 7:11:13 PM Test Reason : Location : 119 : A17 Overread By : YENNI TANNER MD Edited By : YENNI TANNER MD Referred By : TRISTIN WILCOX Acquired by : CHANELLE FRANKLIN [facility] HISTORY PHYSICALon HISTORY PHYSICAL HNO ID: [id number] Author: Afia Downing PA-C Service: ? Author Type: Physician Cash On Delivery Clerk Type: HANDP Filed: 05/13/2022 10:05 AM Note [...] 02/18/2022 Chronic kidney disease, stage 4 (severe) ([facility]) 12/20/2021 Chronic obstructive pulmonary disease ([facility]) 11/27/2021 Deep vein thrombosis (DVT) ([facility]) 1989 LLE- unprovoked Dementia in other diseases classified elsewhere, unspecified severity, without behavioral disturbance, psychotic disturbance, mood disturbance, and anxiety ([facility]) 11/27/2021 Diabetes ([facility]) Diabetes mellitus ([facility]) 11/01/2021 Essential (primary) hypertension 08/13/2017 Gastroesophageal reflux disease with esophagitis 05/10/2022 History of DVT (deep vein thrombosis) 05/10/2022 History of primary malignant neoplasm of urinary bladder 04/22/2022 History of prostate cancer 08/01/2015 Hypothyroidism unspecified 07/10/2021 Intracranial hemorrhage ([facility]) 05/10/2022 Neuropathy PAF (paroxysmal atrial fibrillation) ([facility]) 03/18/2022 Parkinson's disease ([facility]) PONV (postoperative nausea and [...] capsule Take (more content not included)... Normal [facility] HbA1c (Bld)on 05-10-2022 Average glucose Estimated from glycated hemoglobin (Bld) [Mass/Vol] 151 mg/dL Normal [facility] Comment on above: Order Comment: Mayito [facility] Type: BLOOD SPECIMENOrdering Facility: [facility] Address: [address] [address] Result Comment: eAG: (Estimated average glucose) is a calculated value from HgbA1c and is promotional representative of the average blood glucose level in the last 2-3 month period. Performed By: #### 5 5454-3 ####[facility] LABCLIA [id number] [facility] [id number] [address] [place] HbA1c (Bld) [Mass fraction] 6.9 % High 4.3-5.6 [facility] Comment on above: Order Comment: Mayito [facility] Type: BLOOD SPECIMENOrdering Facility: [facility] Address: [address] [address] Result Comment: [place] Diabetes Association guidelines indicate that patients with HgbA1c in the range 5.7-6.4% are at increased risk for development of diabetes, and intervention by lifestyle modification may be beneficial. HgbA1c greater or equal to 6.5% is considered diagnostic of diabetes. Performed By: #### 5 5454-3 ####[facility] LABCLIA [id number] [address] TYPE AND SCREEN,30 DAYon ABO A Normal [facility] Comment on above: Order Comment: Speci men Type: BLOOD SPECIMENOrdering Facility: [facility] Address: [address] [place] [address] Performed By: #### T SCR30 ####[facility] BLOOD BANKCLIA [id number] [address] OF [facility] HISTORICAL AB SCR STATUS Negative Normal [facility] Comment on above: Order Comment: Speci men Type: BLOOD SPECIMENOrdering Facility: [facility] Address: [address] [place] [address] Performed By: #### T SCR30 ####[facility] BLOOD BANKCLIA [id number] [address] Rh Nom (Bld) Negative Normal [facility] Comment on above: Order Comment: Speci men Type: BLOOD SPECIMENOrdering Facility: [facility] Address: [address] [place] [address] Performed By: #### T SCR30 ####[facility] BLOOD BANKCLIA [id number] [address] [place] 04-25-2022 CADY Telephone (KADIE) BEN GUADALUPE ([id number]) 1935 M Date Time Provider Department 04/25/22 MARIKA ZUÑIGA During your visit today, we recorded the following information about you: Marika Zuñiga RN 04/25/2022 2:11 PM Signed SPECIALTY CARE COORDINATION FOLLOW-UP NOTE Call back placed to pt aureliano. Agree to 05/17/22 sx date 05/10/22 pre-op date between -4: ekg, lab, admit, pacc, pt education Number given for them to call back if any changes or concerns pop up No further questions or concerns at this time- set up for [email or web address] Signature Marika Zuñiga RN April 25, 2022 Allergies As of Date: 04/25/2022 Noted Allergy Reaction TIZANIDINE 05/11/2019 1 - Mental Status Change 11 - Vomiting OXYCODONE-ACETAMINOPHEN 06/03/2016 11 - Vomiting Comments: Other reaction(s): vomiting Date Reviewed: 04/17/2022 Reviewed by: Tori Enriquez RN - Fully Assessed Reason for Visit: Returning Patient's Call [408] Centrifugal Spinner - Other [3602] Patient Update [1234] Prescriptions as of 04/25/2022 - furosemide (LASIX) [...] 08/01/2015 Encounter Status:Closed by MARIKA ZUÑIGA on 04/25/22 [facility] BEN GUADALUPE ([id number]) 1935 M Date Time Provider Department 04/25/22 TRISTIN RUIZ During your visit today, we recorded the following information about you: Delicia Fuller 04/25/2022 10:03 AM Signed The Patient's granddaughter ( Milly Guadalupe) is calling to confirm surgery date, get all testing scheduled for her grandfather. Please call her at : [phone] at 11:30 AM or later, as she [...] Encounter Status:Closed by DELICIA FULLER on 04/25/22 [facility] [place] 04-24-2022 [facility] GUAD[facility]UPE ([id number]) 1935 M Date Time Provider Department 04/24/22 [...] RN - Fully Assessed Reason for Visit: Centrifugal Spinner - Other [3602] Prescriptions as of 04/24/2022 [...] on 04/24/22 [facility] CNOVon 04-17-2022 CNOV Office Visit ([facility]ORN ) BEN GUADALUPE ([id number]) 1935 M Date Time Provider Department 04/17/22 [...] mg pe (more content not included)... Normal [facility] Flexible Sigmoidoscopyon Flexible sigmoidoscopy A30 Gastrointestinal Endoscopy [...] previous diet. Procedure Code(s): --- Professional --- 02021, Sigmoidoscopy, flexible; diagnostic, including collection of specimen(s) by brushing or washing, when performed (separate procedure) Diagnosis Code(s): --- Professional --- K64.3, Fourth degree hemorrhoids K62.1, Rectal polyp K92.1, Melena (includes Hematochezia) K57.30, Diverticulosis of large intestine without perforation or abscess without bleeding CPT copyright 2019 [employer]. All rights reserved. The codes documented in this report are preliminary and upon level vial inside grinder review may be revised to meet current compliance requirements. Attending Participation: I personally performed the entire procedure. Scope In: Scope Out: Dr. Tristin Wilcox MD 04/17/2022 2:21:53 PM This report has been signed electronically. Number of Addenda: 0 Note Initiated On: 04/17/2022 1:38 PM Normal [facility] HISTORY PHYSICALon 2 HISTORY PHYSICAL HNO ID: [id number] Author: Tristin Wilcox MD, PhD Service: ? [...] PACC s (more content not included)... Normal [facility] SIGMOIDOSCOPYon 04-17-2022 [facility] POINT OF CARE GLUCOSEon 04-06 Glucose [Mass/Vol] 268 mg/dL Critically high 74-106 [facility] Comment on above: Performed By: #### P OCGLUC #### [facility] [address] [place] [address] Dr. Mason Astudillo CBC AUTO DIFFon 04-11-2022 BASO # 0.0 103/ul Normal 0.0-0.1 [facility] Comment on above: Performed By: #### U A #### [facility] [address] [place] [address] Dr. Mason Astudillo Basophils/100 WBC (Bld) 0.4 % Normal 0.2-2.0 [facility] Comment on above: Performed By: #### U A #### [facility] [address] [place] [address] Dr. Mason Astudillo EO # 0.1 103/ul Normal 0.0-0.7 [facility] Comment on above: Performed By: #### U A #### [facility] [address] [address] [address] Mason Astudillo Eosinophils/100 WBC (Bld) 1.9 % Normal 0.9-7.0 [facility] Comment on above: Performed By: #### U A #### [facility] [address] [place] [address] Dr. Mason Astudillo Erythrocyte distribution width (RBC) [Ratio] 16.0 % Critically high 11.0-15.0 [facility] Comment on above: Performed By: #### U A #### [facility] [address] [place] [address] Dr. Mason Astudillo Hematocrit (Bld) [Volume fraction] 27.4 % Critically low 42.0-54.0 [facility] Comment on above: Performed By: #### U A #### [facility] [address] [address] [address] Mason Astudillo Hemoglobin (Bld) [Mass/Vol] 8.7 g/dL Critically low 14.0-18.0 [facility] Comment on above: Performed By: #### U A #### [facility] [address] [place] [address] Dr. Mason Astudillo IG # 0.03 10e3/ul Normal 0.00-0.03 [facility] Comment on above: Performed By: #### U A #### [facility] [address] [place] [address] Dr. Mason Astudillo IG % 0.6 % Critically high 0.0-0.5 [facility] Comment on above: Performed By: #### U A #### [facility] [address] [place] [address] Dr. Mason Astudillo LYMPH # 0.7 103/ul Critically low 1.2-3.8 [facility] Comment on above: Performed By: #### U A #### [facility] [address] [place] [address] Dr. Mason Astudillo Lymphocytes/100 WBC (Bld) 15.8 % Critically low 20.5-60.0 [facility] Comment on above: Performed By: #### U A #### [facility] [address] [place] [address] Dr. Mason Astudillo MANUAL DIFF REQ NO Normal [facility] Comment on above: Performed By: #### U A #### [facility] [address] [place] [address] Dr. Mason Astudillo MCH (RBC) [Entitic mass] 29.9 pg Normal 25.9-34.0 [facility] Comment on above: Performed By: #### U A #### [facility] [address] [place] [address] Dr. Mason Astudillo MCHC (RBC) [Mass/Vol] 31.8 g/dL Normal 29.9-35.2 [facility] Comment on above: Performed By: #### U A #### [facility] [address] [address] [address] Mason Astudillo MCV (RBC) [Entitic vol] 94.2 fL Critically high 80.0-94.0 [facility] Comment on above: Performed By: #### U A #### [facility] [address] [address] [address] Mason Astudillo MONO # 0.3 103/ul Normal 0.3-0.8 [facility] Comment on above: Performed By: #### U A #### [facility] [address] [address] [address] Mason Astudillo Monocytes/100 WBC (Bld) 6.9 % Normal 1.7-12.0 [facility] Comment on above: Performed By: #### U A #### [facility] [address] [address] [address] Mason Astudillo NEUT # 3.4 103/ul Normal 1.4-6.5 [facility] Comment on above: Performed By: #### U A #### [facility] [address] [address] [address] Mason Astudillo Neutrophils/100 WBC (Bld) 74.4 % Normal 43.0-75.0 [facility] Comment on above: Performed By: #### U A #### [facility] [address] [address] [address] Mason Astudillo Platelet mean volume (Bld) [Entitic vol] 10.6 fL Normal 9.5-13.5 [facility] Comment on above: Performed By: #### U A #### [facility] [address] [address] [address] Mason Astudillo PLT 117 103/ul Critically low 150-450 [facility] Comment on above: Performed By: #### U A #### [facility] [address] [address] [address] Mason Astudillo RBC 2.91 106/ul Critically low 4.70-6.10 [facility] Comment on above: Performed By: #### U A #### [facility] [address] [place], [place] [address] Dr. Mason Astudillo WBC 4.6 103/ul Normal 4.0-11.0 [facility] Comment on above: Performed By: #### U A #### [facility] [address] [place], [place] [address] Dr. Mason Astudillo CARDIAC STRESS TESTon 2021 [...] be dictated separately by Radiology. Normal [facility] NM STRESS/REST MULTIon 03-26 NM STRESS/REST MULTI Patient: BEN GUADALUPE Exam Date: 03/26/2022 : 1935 Gender:M Ordering : DR KAVITA DANIELLE M.D. Admission #: [id number] Family : Order #: [id number] CLICK HERE TO VIEW EXAM RADIOLOGY REPORT [...] study was normal per attending physician Dr. Jamari jesus to. For more details please see separate [...] Patel MD on 03/27/2022 at 08:14 Normal [facility] Orders Onlyon 03-19-2022 Orders Only [id number] Ben Guadalupe 1935 M Date Provider Department Center 03/19/2022 ERIC MEJIAS [facility] Family History Problem Relation Age of Onset Heart failure Mother Prostate cancer Father Coronary artery disease Brother Prostate cancer Brother Family Status - Relation Status Age at Mother Father Brother Normal [facility] CBC AUTO DIFFon 03-18-2022 BASO # 0.0 103/ul Normal 0.0-0.1 [facility] Comment on above: Performed By: #### P OCGLUC #### [facility] [address] [place] [address] Dr. Mason Astudillo Basophils/100 WBC (Bld) 0.5 % Normal 0.2-2.0 [facility] Comment on above: Performed By: #### P OCGLUC #### [facility] [address] [place] [address] Dr. Mason Astudillo EO # 0.1 103/ul Normal 0.0-0.7 [facility] Comment on above: Performed By: #### P OCGLUC #### [facility] [address] [place] [address] Dr. Mason Astudillo Eosinophils/100 WBC (Bld) 2.3 % Normal 0.9-7.0 [facility] Comment on above: Performed By: #### P OCGLUC #### [facility] [address] [place] [address] Dr. Mason Astudillo Erythrocyte distribution width (RBC) [Ratio] 17.2 % Critically high 11.0-15.0 [facility] Comment on above: Performed By: #### P OCGLUC #### [facility] [address] [place] [address] Dr. Mason Astudillo Hematocrit (Bld) [Volume fraction] 43.9 % Normal 42.0-54.0 [facility] Comment on above: Performed By: #### P OCGLUC #### [facility] [address] [place] [address] Dr. Mason Astudillo Hemoglobin (Bld) [Mass/Vol] 14.1 g/dL Normal 14.0-18.0 [facility] Comment on above: Performed By: #### P OCGLUC #### [facility] [address] [place] [address] Dr. Mason Astudillo IG # 0.04 10e3/ul Critically high 0.00-0.03 [facility] Comment on above: Performed By: #### P OCGLUC #### [facility] [address] [place] [address] Dr. Mason Astudillo IG % 0.7 % Critically high 0.0-0.5 [facility] Comment on above: Performed By: #### P OCGLUC #### [facility] [address] [place] [address] Dr. Mason Astudillo LYMPH # 1.1 103/ul Critically low 1.2-3.8 [facility] Comment on above: Performed By: #### P OCGLUC #### [facility] [address] [place] [address] Dr. Mason Astudillo Lymphocytes/100 WBC (Bld) 18.3 % Critically low 20.5-60.0 [facility] Comment on above: Performed By: #### P OCGLUC #### [facility] [address] [place] [address] Dr. Mason Astudillo MANUAL DIFF REQ NO Normal [facility] Comment on above: Performed By: #### P OCGLUC #### [facility] [address] [place] [address] Dr. Mason Astudillo MCH (RBC) [Entitic mass] 29.3 pg Normal 25.9-34.0 [facility] Comment on above: Performed By: #### P OCGLUC #### [facility] [address] [address] [address] Mason Astudillo MCHC (RBC) [Mass/Vol] 32.1 g/dL Normal 29.9-35.2 [facility] Comment on above: Performed By: #### P OCGLUC #### [facility] [address] [place] [address] Dr. Mason Astudillo MCV (RBC) [Entitic vol] 91.1 fL Normal 80.0-94.0 [facility] Comment on above: Performed By: #### P OCGLUC #### [facility] [address] [place] [address] Dr. Mason Astudillo MONO # 0.5 103/ul Normal 0.3-0.8 [facility] Comment on above: Performed By: #### P OCGLUC #### [facility] [address] [place] [address] Dr. Mason Astudillo Monocytes/100 WBC (Bld) 7.7 % Normal 1.7-12.0 [facility] Comment on above: Performed By: #### P OCGLUC #### [facility] [address] [place] [address] Dr. Mason Astudillo NEUT # 4.3 103/ul Normal 1.4-6.5 [facility] Comment on above: Performed By: #### P OCGLUC #### [facility] [address] [place] [address] Dr. Mason Astudillo Neutrophils/100 WBC (Bld) 70.5 % Normal 43.0-75.0 [facility] Comment on above: Performed By: #### P OCGLUC #### [facility] [address] [place] [address] Dr. Mason Astudillo Platelet mean volume (Bld) [Entitic vol] 9.9 fL Normal 9.5-13.5 [facility] Comment on above: Performed By: #### P OCGLUC #### [facility] [address] [place] [address] Dr. Mason Astudillo PLT 130 103/ul Critically low 150-450 [facility] Comment on above: Performed By: #### P OCGLUC #### [facility] [address] [address] [address] Mason Astudillo RBC 4.82 106/ul Normal 4.70-6.10 [facility] Comment on above: Performed By: #### P OCGLUC #### [facility] [address] [address] [address] Mason Astudillo WBC 6.1 103/ul Normal 4.0-11.0 [facility] Comment on above: Performed By: #### P OCGLUC #### [facility] [address] [address] [address] Mason Astudillo Office Visiton 03-18-2022 Follow-up visit [id number] Ben Guadalupe 1935 M Date Provider Department Center 03/18/2022 KAVITA RITTER [facility] Family History Problem Relation Age of Onset Heart failure Mother Prostate cancer Father Coronary artery disease Brother Prostate cancer Brother Family Status - Relation Status Age at Mother Father Brother Level of Service:84306 HI OFFICE/OUTPATIENT ESTABLISHED MOD MDM 30-39 MIN Reason for Visit and Comments: Atrial Fibrillation [80] Coronary Artery Disease [187] Hypertension [882766] left ventricular hypertrophy [Other] Normal [facility] PROF CHEM 8 (BAS METB)on Anion gap [Moles/Vol] 10.8 mmol/L Normal [facility] Comment on above: Performed By: #### U A #### [facility] [address] [address] [address] Mason Astudillo Calcium [Mass/Vol] 8.8 mg/dL Normal 8.5-10.1 [facility] Comment on above: Performed By: #### U A #### [facility] [address] [address] [address] Mason Astudillo Chloride [Moles/Vol] 103 mmol/L Normal 98-107 [facility] Comment on above: Performed By: #### U A #### [facility] [address] [address] [address] Mason Astudillo CO2 [Moles/Vol] 29.9 mmol/L Normal 21.0-32.0 [facility] Comment on above: Performed By: #### U A #### [facility] [address] [address] [address] Mason Astudillo Creatinine [Mass/Vol] 1.20 mg/dL Normal 0.70-1.30 [facility] Comment on above: Performed By: #### U A #### [facility] [address] [address] [address] Mason Astudillo EGFR-AF LATVIAN >60 Normal >=60 [facility] Comment on above: Performed By: #### U A #### [facility] [address] [address] [address] Mason Astudillo EGFR-NON AF LATVIAN 58 mL/min/1.73m2 Critically low >=60 [facility] Comment on above: Performed By: #### U A #### [facility] [address] [address] [address] Mason Astudillo Glucose [Mass/Vol] 202 mg/dL Critically high 74-106 T [facility] Comment on above: Performed By: #### U A #### [facility] [address] [address] [address] Mason Astudillo Potassium [Moles/Vol] 3.7 mmol/L Normal 3.5-5.1 [facility] Comment on above: Performed By: #### U A #### [facility] [address] [address] [address] Mason Astudillo Sodium [Moles/Vol] 140 mmol/L Normal 136-145 [facility] Comment on above: Performed By: #### U A #### [facility] [address] [address] [address] Mason Astudillo Urea nitrogen [Mass/Vol] 22.0 mg/dL Critically high 7.0-18.0 [facility] Comment on above: Performed By: #### U A #### [facility] [address] [address] [address] Mason Astudillo Urea nitrogen/Creatinine [Mass ratio] 18.3 mg/mg Normal [facility] Comment on above: Performed By: #### U A #### [facility] [address] [address] [address] Mason Astudillo Abstracton 03-16-2022 Abstract [id number] Ben Guadalupe 1935 M Date Provider Department Center 03/16/2022 Hilario-MONE SHIPMAN [facility] Family History Problem Relation Age of Onset Heart failure Mother Prostate cancer Father Coronary artery disease Brother Prostate cancer Brother Family Status - Relation Status Age at Mother Father Brother Normal [facility] XR KUB 1 VIEWon 02-18-2022 XR KUB [...] by: BRISA SALAS Date: 2022-02-18 15:45 Normal [facility] VIT D 25-OH [facility]ABCORPon 2021 Vitamin D, 25-Hydroxy 27.3 ng/mL Critically low 30.0-100.0 [facility] Comment on above: Result Comment: Masha min D deficiency has been defined by the [place] of [employer] and an Endocrine Society practice guideline as a level of serum 25-OH vitamin D less than 20 ng/mL (1,2). The Endocrine Society went on to further define vitamin D insufficiency as a level between 21 and 29 ng/mL (2). 1. IOM ([place] of [employer]). 2010. Dietary reference intakes for calcium and D. [place]: The National Academies Press. 2. Hemalatha BOYER, Gunnar CAMPOS, Kamla ROUSE, et al. Evaluation, treatment, and prevention of vitamin D deficiency: an Endocrine Society clinical practice guideline. JCEM. 2010; 96(7):1911-30. Performed By: #### A 1C #### [facility] [address] [address] [address] Mason Astudillo CBC AUTO DIFFon 02-06-2022 BASO # 0.0 103/ul Normal 0.0-0.1 [facility] Comment on above: Performed By: #### A 1C #### [facility] [address] [address] [address] Mason Astudillo Basophils/100 WBC (Bld) 0.4 % Normal 0.2-2.0 [facility] Comment on above: Performed By: #### A 1C #### [facility] [address] [address] [address] Mason Astudillo EO # 0.1 103/ul Normal 0.0-0.7 [facility] Comment on above: Performed By: #### A 1C #### [facility] [address] [address] [address] Mason Astudillo Eosinophils/100 WBC (Bld) 2.5 % Normal 0.9-7.0 [facility] Comment on above: Performed By: #### A 1C #### [facility] [address] [address] [address] Mason Astudillo Erythrocyte distribution width (RBC) [Ratio] 16.6 % Critically high 11.0-15.0 [facility] Comment on above: Performed By: #### A 1C #### [facility] [address] [address] [address] Mason Astudillo Hematocrit (Bld) [Volume fraction] 26.8 % Critically low 42.0-54.0 [facility] Comment on above: Performed By: #### A 1C #### [facility] [address] [address] [address] Mason Astudillo Hemoglobin (Bld) [Mass/Vol] 8.4 g/dL Critically low 14.0-18.0 [facility] Comment on above: Performed By: #### A 1C #### [facility] [address] [address] [address] Mason Astudillo IG # 0.12 10e3/ul Critically high 0.00-0.03 [facility] Comment on above: Performed By: #### A 1C #### [facility] [address] [place] [address] Dr. Mason Astudillo IG % 2.5 % Critically high 0.0-0.5 [facility] Comment on above: Performed By: #### A 1C #### [facility] [address] [place] [address] Dr. Mason Astudillo LYMPH # 0.9 103/ul Critically low 1.2-3.8 [facility] Comment on above: Performed By: #### A 1C #### [facility] [address] [place] [address] Dr. Mason Astudillo Lymphocytes/100 WBC (Bld) 18.1 % Critically low 20.5-60.0 [facility] Comment on above: Performed By: #### A 1C #### [facility] [address] [place] [address] Dr. Mason Astudillo MANUAL DIFF REQ NO Normal [facility] Comment on above: Performed By: #### A 1C #### [facility] [address] [place] [address] Dr. Mason Astudillo MCH (RBC) [Entitic mass] 27.7 pg Normal 25.9-34.0 [facility] Comment on above: Performed By: #### A 1C #### [facility] [address] [place] [address] Dr. Mason Astudillo MCHC (RBC) [Mass/Vol] 31.3 g/dL Normal 29.9-35.2 [facility] Comment on above: Performed By: #### A 1C #### [facility] [address] [place] [address] Dr. Mason Astudillo MCV (RBC) [Entitic vol] 88.4 fL Normal 80.0-94.0 [facility] Comment on above: Performed By: #### A 1C #### [facility] [address] [place] [address] Dr. Mason Astudillo MONO # 0.4 103/ul Normal 0.3-0.8 [facility] Comment on above: Performed By: #### A 1C #### [facility] [address] [place] [address] Dr. Mason Astudillo Monocytes/100 WBC (Bld) 9.1 % Normal 1.7-12.0 [facility] Comment on above: Performed By: #### A 1C #### [facility] [address] [place] [address] Dr. Mason Astudillo NEUT # 3.2 103/ul Normal 1.4-6.5 [facility] Comment on above: Performed By: #### A 1C #### [facility] [address] [place] [address] Dr. Mason Astudillo Neutrophils/100 WBC (Bld) 67.4 % Normal 43.0-75.0 [facility] Comment on above: Performed By: #### A 1C #### [facility] [address] [place] [address] Dr. Mason Astudillo Platelet mean volume (Bld) [Entitic vol] 10.2 fL Normal 9.5-13.5 [facility] Comment on above: Performed By: #### A 1C #### [facility] [address] [place] [address] Dr. Mason Astudillo PLT 135 103/ul Critically low 150-450 [facility] Comment on above: Performed By: #### A 1C #### [facility] [address] [place] [address] Dr. Mason Astudillo RBC 3.03 106/ul Critically low 4.70-6.10 [facility] Comment on above: Performed By: #### A 1C #### [facility] [address] [place] [address] Dr. Mason Astudillo WBC 4.7 103/ul Normal 4.0-11.0 [facility] Comment on above: Performed By: #### A 1C #### [facility] [address] [place] [address] Dr. Mason Astudillo GLYCOHEMOGLOBIN A1Con 2021 ADA RECOMMENDATION SEE BELOW Normal [facility] Comment on above: Result Comment: ADA RECOMMENDED LIMIT 4.0 - 6.0 ADA THERAPEUTIC TARGET < 7.0 ACTION SUGGESTED > 7.0 Performed By: #### A 1C #### [facility] [address] [address] [address] Mason Astudillo Glucose [Mass/Vol] 148 mg/dL Normal [facility] Comment on above: Performed By: #### A 1C #### [facility] [address] [place] [address] Dr. Mason Astudillo HbA1c (Bld) [Mass fraction] 6.8 % Critically high 4.5-6.2 [facility] Comment on above: Performed By: #### A 1C #### [facility] [address] [place] [address] Dr. Mason Astudillo POINT OF CARE GLUCOSEon 08 Glucose [Mass/Vol] 157 mg/dL Critically high 74-106 T [facility] Comment on above: Performed By: #### P OCGLUC #### [facility] [address] [place] [address] Dr. Mason Astudillo PROF CHEM 8 (BAS METB)on Anion gap [Moles/Vol] 10.5 mmol/L Normal [facility] Comment on above: Performed By: #### B MP #### [facility] [address] [place] [address] Dr. Mason Astudillo Calcium [Mass/Vol] 8.0 mg/dL Critically low 8.5-10.1 Th [facility] Comment on above: Performed By: #### B MP #### [facility] [address] [place] [address] Dr. Mason Astudillo Chloride [Moles/Vol] 105 mmol/L Normal 98-107 [facility] Comment on above: Performed By: #### B MP #### [facility] [address] [place] [address] Dr. Mason Astudillo CO2 [Moles/Vol] 27.2 mmol/L Normal 21.0-32.0 [facility] Comment on above: Performed By: #### B MP #### [facility] [address] [place] [address] Dr. aMson Astudillo Creatinine [Mass/Vol] 1.11 mg/dL Normal 0.70-1.30 [facility] Comment on above: Performed By: #### B MP #### [facility] [address] [address] [address] Mason Astudillo EGFR-AF LATVIAN >60 Normal >=60 [facility] Comment on above: Performed By: #### B MP #### [facility] [address] [address] [address] Mason Astudillo EGFR-NON AF LATVIAN >60 Normal >=60 [facility] Comment on above: Performed By: #### B MP #### [facility] [address] [place] [address] Dr. Mason Astudillo Glucose [Mass/Vol] 174 mg/dL Critically high 74-106 T [facility] Comment on above: Performed By: #### B MP #### [facility] [address] [place] [address] Dr. Mason Astudillo Potassium [Moles/Vol] 3.7 mmol/L Normal 3.5-5.1 [facility] Comment on above: Performed By: #### B MP #### [facility] [address] [place] [address] Dr. Mason Astudillo Sodium [Moles/Vol] 139 mmol/L Normal 136-145 [facility] Comment on above: Performed By: #### B MP #### [facility] [address] [place] [address] Dr. Mason Astudillo Urea nitrogen [Mass/Vol] 19.0 mg/dL Critically high 7.0-18.0 [facility] Comment on above: Performed By: #### B MP #### [facility] [address] [place] [address] Dr. Mason Astudillo Urea nitrogen/Creatinine [Mass ratio] 17.1 mg/mg Normal [facility] Comment on above: Performed By: #### B MP #### [facility] [address] [place] [address] Dr. Mason Astudillo CBC W MANUAL DIFFon 02-06-20 22 ATYPICAL LYMPH # Normal [facility] Comment on above: Performed By: #### C BC #### [facility] [address] [place] [address] Dr. Mason Astudillo ATYPICAL LYMPH % Normal [facility] Comment on above: Performed By: #### C BC #### [facility] [address] [place] [address] Dr. Mason Astudillo BAND # 0.0 103/ul Normal 0.0-0.3 [facility] Comment on above: Performed By: #### C BC #### [facility] [address] [place] [address] Dr. Mason Astudillo BAND % 0 % Normal 0-5 [facility] Comment on above: Performed By: #### C BC #### [facility] [address] [place] [address] Dr. Mason Astudillo BASOM # 0.06 103/ul Normal 0.00-0.10 [facility] Comment on above: Performed By: #### C BC #### [facility] [address] [place] [address] Dr. Mason Astudillo BASOM % 1.0 % Normal 0.2-2.0 [facility] Comment on above: Performed By: #### C BC #### [facility] [address] [place] [address] Dr. Mason Astudillo BLAST # Normal [facility] Comment on above: Performed By: #### C BC #### [facility] [address] [place] [address] Dr. Mason Astudillo BLAST % Normal [facility] Comment on above: Performed By: #### C BC #### [facility] [address] [place] [address] Dr. Mason Astudillo CORRECTED WBC Normal 4.0-11.0 [facility] Comment on above: Performed By: #### C BC #### [facility] [address] [place] [address] Dr. Mason Astudillo EOS # 0.17 103/ul Normal 0.00-0.70 [facility] Comment on above: Performed By: #### C BC #### [facility] [address] [place] [address] Dr. Mason Astudillo EOS% 3.0 % Normal 0.9-7.0 [facility] Comment on above: Performed By: #### C BC #### [facility] [address] [address] [address] Mason Astudillo HCT 27.4 % Critically low 42.0-54.0 [facility] Comment on above: Performed By: #### C BC #### [facility] [address] [address] [address] Mason Astudillo HGB 8.6 g/dl Critically low 14.0-18.0 [facility] Comment on above: Performed By: #### C BC #### [facility] [address] [address] [address] Mason Astudillo LYMPHM # 0.56 103/ul Critically low 1.20-3.80 [facility] Comment on above: Performed By: #### C BC #### [facility] [address] [place] [address] Dr. Mason Astudillo LYMPHM% 10.0 % Critically low 20.5-60.0 [facility] Comment on above: Performed By: #### C BC #### [facility] [address] [place] [address] Dr. Mason Astudillo MCH 27.7 pg Normal 25.9-34.0 [facility] Comment on above: Performed By: #### C BC #### [facility] [address] [place] [address] Dr. Mason Astudillo MCHC 31.4 g/dl Normal 29.9-35.2 [facility] Comment on above: Performed By: #### C BC #### [facility] [address] [place] [address] Dr. Mason Astudillo MCV 88.1 fL Normal 80.0-94.0 [facility] Comment on above: Performed By: #### C BC #### [facility] [address] [place] [address] Dr. Mason Astudillo METAMYELOCYTE # Normal [facility] Comment on above: Performed By: #### C BC #### [facility] [address] [place] [address] Dr. Mason Astudillo METAMYELOCYTE % Normal [facility] Comment on above: Performed By: #### C BC #### [facility] [address] [place] [address] Dr. Mason Astudillo MONOM# 0.34 103/ul Normal 0.30-0.80 [facility] Comment on above: Performed By: #### C BC #### [facility] [address] [place] [address] Dr. Mason Astudillo MONOM% 6.0 % Normal 1.7-12.0 [facility] Comment on above: Performed By: #### C BC #### [facility] [address] [place] [address] Dr. Mason Astudillo MPV 10.5 fL Normal 9.5-13.5 [facility] Comment on above: Performed By: #### C BC #### [facility] [address] [place] [address] Dr. Mason Astudillo MYELOCYTE # Normal [facility] Comment on above: Performed By: #### C BC #### [facility] [address] [place] [address] Dr. Mason Astudillo MYELOCYTE % Normal [facility] Comment on above: Performed By: #### C BC #### [facility] [address] [place] [address] Dr. Mason Astudillo NRBC Normal [facility] Comment on above: Performed By: #### C BC #### [facility] [address] [place] [address] Dr. Mason Astudillo OVALOCYTES 1+ Normal [facility] Comment on above: Performed By: #### C BC #### [facility] [address] [place] [address] Dr. Mason Astudillo PLT 124 103/ul Critically low 150-450 [facility] Comment on above: Performed By: #### C BC #### [facility] [address] [place] [address] Dr. Mason Astudillo RBC 3.11 106/ul Critically low 4.70-6.10 [facility] Comment on above: Performed By: #### C BC #### [facility] [address] [address] [address] Mason Astudillo RDW 15.9 % Critically high 11.0-15.0 [facility] Comment on above: Performed By: #### C BC #### [facility] [address] [place] [address] Dr. Mason Astudillo SEG # 4.48 103/ul Normal 1.40-6.50 [facility] Comment on above: Performed By: #### C BC #### [facility] [address] [address] [address] Mason Astudillo SEG % 80.0 % Critically high 43.0-75.0 [facility] Comment on above: Performed By: #### C BC #### [facility] [facility] [address] [place] [address] Dr. Mason Astudillo WBC 5.6 103/ul Normal 4.0-11.0 [facility] Comment on above: Performed By: #### C BC #### [facility] [address] [place] [address] Dr. Mason Astudillo POINT OF CARE GLUCOSEon Glucose [Mass/Vol] 260 mg/dL Critically high 74-106 [facility] Comment on above: Performed By: #### P OCGLUC #### [facility] [address] [place] [address] Dr. Mason Astudillo Glucose [Mass/Vol] 165 mg/dL Critically high -106 [facility] Comment on above: Performed By: #### A 1C #### [facility] [address] [place] [address] Dr. Mason Astudillo Glucose [Mass/Vol] 147 mg/dL Critically high 74-106 [facility] Comment on above: Performed By: #### C BC #### [facility] [address] [place] [address] Dr. Mason Astudillo PROF CHEM 8 (BAS METB)on Anion gap [Moles/Vol] 11.0 mmol/L Normal [facility] Comment on above: Performed By: #### U A #### [facility] [address] [place], [place] [address] Dr. Mason Astudillo Calcium [Mass/Vol] 8.0 mg/dL Critically low 8.5-10.1 [facility] Comment on above: Performed By: #### U A #### [facility] [address] [place] [address] Dr. aMson Astudillo Chloride [Moles/Vol] 106 mmol/L Normal 98-107 [facility] Comment on above: Performed By: #### U A #### [facility] [address] [place] [address] Dr. Mason Astudillo CO2 [Moles/Vol] 26.7 mmol/L Normal 21.0-32.0 [facility] Comment on above: Performed By: #### U A #### [facility] [address] [place] [address] Dr. Mason Astudillo Creatinine [Mass/Vol] 1.22 mg/dL Normal 0.70-1.30 [facility] Comment on above: Performed By: #### U A #### [facility] [address] [place] [address] Dr. Mason Astudillo EGFR-AF LATVIAN >60 Normal >=60 [facility] Comment on above: Performed By: #### U A #### [facility] [address] [place] [address] Dr. Mason Astudillo EGFR-NON AF LATVIAN 56 mL/min/1.73m2 Critically low >=60 [facility] Comment on above: Performed By: #### U A #### [facility] [address] [place] [address] Dr. Mason Astudillo Glucose [Mass/Vol] 147 mg/dL Critically high 74-106 [facility] Comment on above: Performed By: #### U A #### [facility] [address] [place] [address] Dr. Mason Astudillo Potassium [Moles/Vol] 3.7 mmol/L Normal 3.5-5.1 [facility] Comment on above: Performed By: #### U A #### [facility] [address] [place] [address] Dr. Mason Astudillo Sodium [Moles/Vol] 140 mmol/L Normal 136-145 [facility] Comment on above: Performed By: #### U A #### [facility] [address] [place] [address] Dr. Mason Astudillo Urea nitrogen [Mass/Vol] 17.0 mg/dL Normal 7.0-18.0 [facility] Comment on above: Performed By: #### U A #### [facility] [address] [place] [address] Dr. Mason Astudillo Urea nitrogen/Creatinine [Mass ratio] 13.9 mg/mg Normal [facility] Comment on above: Performed By: #### U A #### [facility] [address] [place] [address] Dr. Mason Astudillo CBC AUTO DIFFon 02-04-2022 BASO # 0.0 103/ul Normal 0.0-0.1 [facility] Comment on above: Performed By: #### C BC #### [facility] [address] [place] [address] Dr. Mason Astudillo Basophils/100 WBC (Bld) 0.2 % Normal 0.2-2.0 [facility] Comment on above: Performed By: #### C BC #### [facility] [address] [place] [address] Dr. Mason Astudillo EO # 0.2 103/ul Normal 0.0-0.7 [facility] Comment on above: Performed By: #### C BC #### [facility] [address] [place] [address] Dr. Mason Astudillo Eosinophils/100 WBC (Bld) 3.4 % Normal 0.9-7.0 [facility] Comment on above: Performed By: #### C BC #### [facility] [address] [place] [address] Dr. Mason Astudillo Erythrocyte distribution width (RBC) [Ratio] 15.6 % Critically high 11.0-15.0 [facility] Comment on above: Performed By: #### C BC #### [facility] [address] [place] [address] Dr. Mason Astudillo Hematocrit (Bld) [Volume fraction] 26.1 % Critically low 42.0-54.0 [facility] Comment on above: Performed By: #### C BC #### [facility] [address] [place] [address] Dr. Mason Astudillo Hemoglobin (Bld) [Mass/Vol] 8.2 g/dL Critically low 14.0-18.0 [facility] Comment on above: Performed By: #### C BC #### [facility] [address] [address] [address] Mason Astudillo IG # 0.06 10e3/ul Critically high 0.00-0.03 [facility] Comment on above: Performed By: #### C BC #### [facility] [address] [place] [address] Dr. Mason Astudillo IG % 1.4 % Critically high 0.0-0.5 [facility] Comment on above: Performed By: #### C BC #### [facility] [address] [place] [address] Dr. Mason Astudillo LYMPH # 0.6 103/ul Critically low 1.2-3.8 [facility] Comment on above: Performed By: #### C BC #### [facility] [address] [place] [address] Dr. Mason Astudillo Lymphocytes/100 WBC (Bld) 14.3 % Critically low 20.5-60.0 [facility] Comment on above: Performed By: #### C BC #### [facility] [address] [place] [address] Dr. Mason Astudillo MANUAL DIFF REQ NO Normal [facility] Comment on above: Performed By: #### C BC #### [facility] [address] [place] [address] Dr. Mason Astudillo MCH (RBC) [Entitic mass] 27.4 pg Normal 25.9-34.0 [facility] Comment on above: Performed By: #### C BC #### [facility] [address] [place] [address] Dr. Mason Astudillo MCHC (RBC) [Mass/Vol] 31.4 g/dL Normal 29.9-35.2 [facility] Comment on above: Performed By: #### C BC #### [facility] [address] [place] [address] Dr. Mason Astudillo MCV (RBC) [Entitic vol] 87.3 fL Normal 80.0-94.0 [facility] Comment on above: Performed By: #### C BC #### [facility] [address] [place] [address] Dr. Mason Astudillo MONO # 0.5 103/ul Normal 0.3-0.8 [facility] Comment on above: Performed By: #### C BC #### [facility] [address] [place] [address] Dr. Mason Astudillo Monocytes/100 WBC (Bld) 10.4 % Normal 1.7-12.0 [facility] Comment on above: Performed By: #### C BC #### [facility] [address] [place] [address] Dr. Mason Astudillo NEUT # 3.1 103/ul Normal 1.4-6.5 [facility] Comment on above: Performed By: #### C BC #### [facility] [address] [place] [address] Dr. Mason Astudillo Neutrophils/100 WBC (Bld) 70.3 % Normal 43.0-75.0 [facility] Comment on above: Performed By: #### C BC #### [facility] [address] [place] [address] Dr. Mason Astudillo Platelet mean volume (Bld) [Entitic vol] 10.5 fL Normal 9.5-13.5 [facility] Comment on above: Performed By: #### C BC #### [facility] [address] [place] [address] Dr. Mason Astudillo PLT 105 103/ul Critically low 150-450 [facility] Comment on above: Performed By: #### C BC #### [facility] [address] [place] [address] Dr. Mason Astudillo RBC 2.99 106/ul Critically low 4.70-6.10 [facility] Comment on above: Performed By: #### C BC #### [facility] [address] [place], [place] [address] Dr. Mason Astudillo WBC 4.4 103/ul Normal 4.0-11.0 [facility] Comment on above: Performed By: #### C BC #### [facility] [address] [place], [place] [address] Dr. Mason Astudillo ECHOCARDIO M/2D COMPLETEon 0 02-04-2022 ECHOCARDIO M/2D COMPLETE Patient: BEN GUADALUPE Exam Date: 02/04/2022 : 1935 Gender:M Ordering : DR COLTON CASTELLON . Admission #: [id number] Family : SHAIKH Samantha ELLIOTT . Order #: [id number] CLICK HERE TO VIEW EXAM ECHOCARDIOGRAM REPORT [...] Cheney M.D. on 02/04/2022 at 13:39 Normal [facility] POINT OF CARE GLUCOSEon Glucose [Mass/Vol] 262 mg/dL Critically high -106 [facility] Comment on above: Performed By: #### C BC #### [facility] [address] [address] [address] Mason Astudillo Glucose [Mass/Vol] 167 mg/dL Critically high [facility] Comment on above: Performed By: #### C BC #### [facility] [address] [address] [address] Mason Astudillo Glucose [Mass/Vol] 158 mg/dL Critically high [facility] Comment on above: Performed By: #### P OCGLUC #### [facility] [address] [address] [address] Mason Astudillo PRBC LEUKOREDUCEDon 02-05-20 22 ABO and Rh group Nom (Bld) Cross Match Result Compatible Unit Blood Type A Neg Unit Number [id number] Status Information Transfused Product ID Red Blood Cells Product Code [id number] Cross Match Result Compatible Unit Blood Type A Neg Unit Number [id number] Status Information Transfused Product ID Red Blood Cells Product Code [id number] [facility] Comment on above: Performed By: #### P SAD #### [facility] [address] [address] [address] Mason Astudillo PROF CHEM 8 (BAS METB)on Anion gap [Moles/Vol] 11.5 mmol/L [facility] Comment on above: Performed By: #### C BC #### [facility] [address] [address] [address] Mason Astudillo Calcium [Mass/Vol] 7.4 mg/dL Critically low 8.5-10.1 Th [facility] Comment on above: Performed By: #### C BC #### [facility] [address] [address] [address] Mason Astudillo Chloride [Moles/Vol] 106 mmol/L Normal 98-107 [facility] Comment on above: Performed By: #### C BC #### [facility] [address] [address] [address] Mason Astudillo CO2 [Moles/Vol] 25.8 mmol/L Normal 21.0-32.0 [facility] Comment on above: Performed By: #### C BC #### [facility] [address] [address] [address] Mason Astudillo Creatinine [Mass/Vol] 1.07 mg/dL Normal 0.70-1.30 [facility] Comment on above: Performed By: #### C BC #### [facility] [address] [place] [address] Dr. Mason Astudillo EGFR-AF LATVIAN >60 Normal >=60 [facility] Comment on above: Performed By: #### C BC #### [facility] [address] [address] [address] Mason Astudillo EGFR-NON AF LATVIAN >60 Normal >=60 [facility] Comment on above: Performed By: #### C BC #### [facility] [address] [place] [address] Dr. aMson Astudillo Glucose [Mass/Vol] 165 mg/dL Critically high 74-106 [facility] Comment on above: Performed By: #### C BC #### [facility] [address] [address] [address] Mason Astudillo Potassium [Moles/Vol] 3.3 mmol/L Critically low 3.5-5.1 [facility] Comment on above: Performed By: #### C BC #### [facility] [address] [address] [address] Mason Astudillo Sodium [Moles/Vol] 140 mmol/L Normal 136-145 [facility] Comment on above: Performed By: #### C BC #### [facility] [address] [place] [address] Dr. Mason Astudillo Urea nitrogen [Mass/Vol] 19.0 mg/dL Critically high 7.0-18.0 [facility] Comment on above: Performed By: #### C BC #### [facility] [address] [place] [address] Dr. Mason Astudillo Urea nitrogen/Creatinine [Mass ratio] 17.8 mg/mg Normal [facility] Comment on above: Performed By: #### C BC #### [facility] [address] [place] [address] Dr. Mason Astudillo ABO RH RETYPEon 02-03-2022 ABO and Rh group Nom (Bld) DONE Normal [facility] Comment on above: Performed By: #### P OCGLUC #### [facility] [address] [place] [address] Dr. Mason Astudillo CBC AUTO DIFFon 02-03-2022 Basophils/100 WBC (Bld) 0.5 % Normal 0.2-2.0 [facility] Comment on above: Performed By: #### U A #### [facility] [address] [place] [address] Dr. Mason Astudillo EO # 0.2 103/ul Normal 0.0-0.7 [facility] Comment on above: Performed By: #### U A #### [facility] [address] [place] [address] Dr. Mason Astudillo Eosinophils/100 WBC (Bld) 2.9 % Normal 0.9-7.0 [facility] Comment on above: Performed By: #### U A #### [facility] [address] [place] [address] Dr. Mason Astudillo Erythrocyte distribution width (RBC) [Ratio] 15.7 % Critically high 11.0-15.0 [facility] Comment on above: Performed By: #### U A #### [facility] [address] [place] [address] Dr. Mason Astudillo Hematocrit (Bld) [Volume fraction] 31.1 % Critically low 42.0-54.0 [facility] Comment on above: Performed By: #### U A #### [facility] [address] [address] [address] Mason Astudillo Hemoglobin (Bld) [Mass/Vol] 9.7 g/dL Critically low 14.0-18.0 [facility] Comment on above: Result Comment: rcvd . 2 units of packed red cells. Performed By: #### U A #### [facility] [address] [place] [address] Dr. Mason Astudillo IG # 0.05 10e3/ul Critically high 0.00-0.03 [facility] Comment on above: Performed By: #### U A #### [facility] [address] [place] [address] Dr. Mason Astudillo IG % 0.8 % Critically high 0.0-0.5 [facility] Comment on above: Performed By: #### U A #### [facility] [address] [place] [address] Dr. Mason Astudillo LYMPH # 1.1 103/ul Critically low 1.2-3.8 [facility] Comment on above: Performed By: #### U A #### [facility] [address] [place] [address] Dr. Mason Astudillo Lymphocytes/100 WBC (Bld) 19.3 % Critically low 20.5-60.0 [facility] Comment on above: Performed By: #### U A #### [facility] [address] [place] [address] Dr. Mason Astudillo MCH (RBC) [Entitic mass] 27.2 pg Normal 25.9-34.0 [facility] Comment on above: Performed By: #### U A #### [facility] [address] [place] [address] Dr. Mason Astudillo MCHC (RBC) [Mass/Vol] 31.2 g/dL Normal 29.9-35.2 [facility] Comment on above: Performed By: #### U A #### [facility] [address] [place] [address] Dr. Mason Astudillo MCV (RBC) [Entitic vol] 87.1 fL Normal 80.0-94.0 [facility] Comment on above: Performed By: #### U A #### [facility] [address] [place] [address] Dr. Mason Astudillo MONO # 0.6 103/ul Normal 0.3-0.8 [facility] Comment on above: Performed By: #### U A #### [facility] [address] [place] [address] Dr. Mason Astudillo Monocytes/100 WBC (Bld) 10.7 % Normal 1.7-12.0 [facility] Comment on above: Performed By: #### U A #### [facility] [address] [place] [address] Dr. Mason Astudillo NEUT # 3.9 103/ul Normal 1.4-6.5 [facility] Comment on above: Performed By: #### U A #### [facility] [address] [place] [address] Dr. Mason Astudillo Neutrophils/100 WBC (Bld) 65.8 % Normal 43.0-75.0 [facility] Comment on above: Performed By: #### U A #### [facility] [address] [place] [address] Dr. Mason Astudillo Platelet mean volume (Bld) [Entitic vol] 10.5 fL Normal 9.5-13.5 [facility] Comment on above: Performed By: #### U A #### [facility] [address] [place] [address] Dr. Mason Astudillo PLT 147 103/ul Critically low 150-450 [facility] Comment on above: Performed By: #### U A #### [facility] [address] [place] [address] Dr. Mason Astudillo RBC 3.57 106/ul Critically low 4.70-6.10 [facility] Comment on above: Performed By: #### U A #### [facility] [address] [place] [address] Dr. Mason Astudillo WBC 5.9 103/ul Normal 4.0-11.0 [facility] Comment on above: Performed By: #### U A #### [facility] [address] [address] [address] Mason Astudillo BASO # 0.0 103/ul Normal 0.0-0.1 [facility] Comment on above: Performed By: #### U A #### [facility] [address] [place] [address] Dr. Mason Astudillo Basophils/100 WBC (Bld) 0.3 % Normal 0.2-2.0 [facility] Comment on above: Performed By: #### U A #### [facility] [address] [place] [address] Dr. Mason Astudillo EO # 0.1 103/ul Normal 0.0-0.7 [facility] Comment on above: Performed By: #### U A #### [facility] [address] [place] [address] Dr. Mason Astudillo Eosinophils/100 WBC (Bld) 2.5 % Normal 0.9-7.0 [facility] Comment on above: Performed By: #### U A #### [facility] [address] [place] [address] Dr. Mason Astudillo Erythrocyte distribution width (RBC) [Ratio] 15.9 % Critically high 11.0-15.0 [facility] Comment on above: Performed By: #### U A #### [facility] [address] [place] [address] Dr. Mason Astudillo Hematocrit (Bld) [Volume fraction] 22.3 % Critically low 42.0-54.0 [facility] Comment on above: Result Comment: Test Repeated. Critical Value Verified Performed By: #### U A #### [facility] [address] [place] [address] Dr. Mason Astudillo Hemoglobin (Bld) [Mass/Vol] 6.7 g/dL Critically low 14.0-18.0 [facility] Comment on above: Result Comment: Test Repeated. Critical Value Verified Performed By: #### U A #### [facility] [address] [place] [address] Dr. Mason Astudillo IG # 0.02 10e3/ul Normal 0.00-0.03 [facility] Comment on above: Performed By: #### U A #### [facility] [address] [place] [address] Dr. Mason Astudillo IG % 0.5 % Normal 0.0-0.5 [facility] Comment on above: Performed By: #### U A #### [facility] [address] [place] [address] Dr. Mason Astudillo LYMPH # 0.7 103/ul Critically low 1.2-3.8 [facility] Comment on above: Performed By: #### U A #### [facility] [address] [place] [address] Dr. Mason Astudillo Lymphocytes/100 WBC (Bld) 19.5 % Critically low 20.5-60.0 [facility] Comment on above: Performed By: #### U A #### [facility] [address] [place] [address] Dr. Mason Astudillo MANUAL DIFF REQ NO Normal [facility] Comment on above: Performed By: #### U A #### [facility] [address] [place] [address] Dr. Mason Astudillo MCH (RBC) [Entitic mass] 25.8 pg Critically low 25.9-34.0 [facility] Comment on above: Performed By: #### U A #### [facility] [address] [place] [address] Dr. Mason Astudillo MCHC (RBC) [Mass/Vol] 30.0 g/dL Normal 29.9-35.2 [facility] Comment on above: Performed By: #### U A #### [facility] [address] [place] [address] Dr. Mason Astudillo MCV (RBC) [Entitic vol] 85.8 fL Normal 80.0-94.0 [facility] Comment on above: Performed By: #### U A #### [facility] [address] [place] [address] Dr. Mason Astudillo MONO # 0.4 103/ul Normal 0.3-0.8 [facility] Comment on above: Performed By: #### U A #### [facility] [address] [address] [address] Mason Astudillo Monocytes/100 WBC (Bld) 11.8 % Normal 1.7-12.0 [facility] Comment on above: Performed By: #### U A #### [facility] [address] [address] [address] Mason Astudillo NEUT # 2.4 103/ul Normal 1.4-6.5 [facility] Comment on above: Performed By: #### U A #### [facility] [address] [place] [address] Dr. Mason Astudillo Neutrophils/100 WBC (Bld) 65.4 % Normal 43.0-75.0 [facility] Comment on above: Performed By: #### U A #### [facility] [address] [place] [address] Dr. Mason Astudillo Platelet mean volume (Bld) [Entitic vol] 10.7 fL Normal 9.5-13.5 [facility] Comment on above: Performed By: #### U A #### [facility] [address] [place] [address] Dr. Mason Astudillo PLT 103 103/ul Critically low 150-450 [facility] Comment on above: Performed By: #### U A #### [facility] [address] [place] [address] Dr. Mason Astudillo RBC 2.60 106/ul Critically low 4.70-6.10 [facility] Comment on above: Performed By: #### U A #### [facility] [address] [place] [address] Dr. Mason Astudillo WBC 3.7 103/ul Critically low 4.0-11.0 [facility] Comment on above: Performed By: #### U A #### [facility] [address] [place] [address] Dr. Mason Astudillo IRON AND TIBCon 02-03-2022 % SATURATION 46.9 % Normal [facility] Comment on above: Performed By: #### U A #### [facility] [address] [address] [address] Mason Astudillo Iron [Mass/Vol] 150.0 ug/dL Normal 65.0-175.0 [facility] Comment on above: Performed By: #### U A #### [facility] [address] [address] [address] Mason Astudillo TIBC DIRECT 320.0 ug/dL Normal 250.0-450.0 [facility] Comment on above: Performed By: #### U A #### [facility] [address] [place] [address] Dr. Mason Astudillo POINT OF CARE GLUCOSEon 01-06 Glucose [Mass/Vol] 201 mg/dL Critically high 74-106 [facility] Comment on above: Performed By: #### U A #### [facility] [address] [place] [address] Dr. Mason Astudillo Glucose [Mass/Vol] 152 mg/dL Critically high 74-106 [facility] Comment on above: Performed By: #### P OCGLUC #### [facility] [address] [place] [address] Dr. Mason Astudillo Glucose [Mass/Vol] 242 mg/dL Critically high 74-106 [facility] Comment on above: Performed By: #### A 1C #### [facility] [address] [place] [address] Dr. Mason Astudillo PROF CHEM 8 (BAS METB)on Anion gap [Moles/Vol] 11.4 mmol/L Normal [facility] Comment on above: Performed By: #### B MP #### [facility] [address] [place] [address] Dr. Mason Astudillo Calcium [Mass/Vol] 7.5 mg/dL Critically low 8.5-10.1 [facility] Comment on above: Performed By: #### B MP #### [facility] [address] [place] [address] Dr. Mason Astudillo Chloride [Moles/Vol] 106 mmol/L Normal 98-107 [facility] Comment on above: Performed By: #### B MP #### [facility] [address] [address] [address] Mason Astudillo CO2 [Moles/Vol] 26.8 mmol/L Normal 21.0-32.0 [facility] Comment on above: Performed By: #### B MP #### [facility] [address] [address] [address] Mason Astudillo Creatinine [Mass/Vol] 1.26 mg/dL Normal 0.70-1.30 [facility] Comment on above: Performed By: #### B MP #### [facility] [address] [address] [address] Mason Astudillo EGFR-AF LATVIAN >60 Normal >=60 [facility] Comment on above: Performed By: #### B MP #### [facility] [address] [address] [address] Mason Astudillo EGFR-NON AF LATVIAN 54 mL/min/1.73m2 Critically low >=60 [facility] Comment on above: Performed By: #### B MP #### [facility] [address] [address] [address] Mason Astudillo Glucose [Mass/Vol] 160 mg/dL Critically high 74-106 [facility] Comment on above: Performed By: #### B MP #### [facility] [address] [address] [address] Mason Astudillo Potassium [Moles/Vol] 3.2 mmol/L Critically low 3.5-5.1 [facility] Comment on above: Performed By: #### B MP #### [facility] [address] [address] [address] Mason Astudillo Sodium [Moles/Vol] 141 mmol/L Normal 136-145 [facility] Comment on above: Performed By: #### B MP #### [facility] [address] [address] [address] Mason Astudillo Urea nitrogen [Mass/Vol] 30.0 mg/dL Critically high 7.0-18.0 [facility] Comment on above: Performed By: #### B MP #### [facility] [address] [place] [address] Dr. Mason Astudillo Urea nitrogen/Creatinine [Mass ratio] 23.8 mg/mg Normal [facility] Comment on above: Performed By: #### B MP #### [facility] [address] [place] [address] Dr. Mason Astudillo TYPE AND SCREENon 02-03-2022 TYPE AND SCREEN Negative Normal [facility] Comment on above: Performed By: #### T NS #### [facility] [address] [place] [address] Dr. Mason Astudillo BNPon 02-02-2022 Natriuretic peptide B (Bld) [Mass/Vol] 154.0 pg/mL Normal <=1,800.0 [facility] Comment on above: Performed By: #### P SAD #### [facility] [address] [place] [address] Dr. Mason Astudillo CARDIAC ANJELICA ADMITon 022 CK [Catalytic activity/Vol] 256 U/L Normal 39-308 [facility] Comment on above: Performed By: #### P OCGLUC #### [facility] [address] [place] [address] Dr. Mason Astudillo CK.MB [Mass/Vol] 3.30 ng/mL Normal <=3.60 [facility] Comment on above: Performed By: #### P OCGLUC #### [facility] [address] [place] [address] Dr. Mason Astudillo HSTROP 19.1 pg/mL Normal 4.0-76.1 [facility] Comment on above: Result Comment: CUT- OFF POINTS HAVE BEEN ESTABLISHED BASED ON THE FOURTH UNIVERSAL DEFINITIONS OF MYOCARDIAL INFARCTION. THE UPPER REFERENCE LIMIT (URL) OF TROPONIN, DEFINED THE 99TH PERCENTILE OF cTnI DISTRIBUTION IN A REFERENCE POPULATION, HAS BEEN CONFIRMED THE DECISION THRESHOLD FOR PA DIAGNOSIS. Performed By: #### P OCGLUC #### [facility] [address] [place] [address] Dr. Mason Astudillo ABDELRAHMAN 304 ng/mL Critically high 16-96 [facility] Comment on above: Performed By: #### P OCGLUC #### [facility] [address] [place] [address] Dr. Mason Astudillo CBC AUTO DIFFon 02-02-2022 BASO # 0.0 103/ul Normal 0.0-0.1 [facility] Comment on above: Performed By: #### C BC #### [facility] [address] [place] [address] Dr. Mason Astudillo Basophils/100 WBC (Bld) 0.5 % Normal 0.2-2.0 [facility] Comment on above: Performed By: #### C BC #### [facility] [address] [place] [address] Dr. Mason Astudillo EO # 0.2 103/ul Normal 0.0-0.7 [facility] Comment on above: Performed By: #### C BC #### [facility] [address] [place] [address] Dr. Mason Astudillo Eosinophils/100 WBC (Bld) 2.4 % Normal 0.9-7.0 [facility] Comment on above: Performed By: #### C BC #### [facility] [address] [place] [address] Dr. Mason Astudillo Erythrocyte distribution width (RBC) [Ratio] 15.9 % Critically high 11.0-15.0 [facility] Comment on above: Performed By: #### C BC #### [facility] [address] [place] [address] Dr. Mason Astudillo Hematocrit (Bld) [Volume fraction] 27.9 % Critically low 42.0-54.0 [facility] Comment on above: Performed By: #### C BC #### [facility] [address] [place] [address] Dr. Mason Astudillo Hemoglobin (Bld) [Mass/Vol] 8.7 g/dL Critically low 14.0-18.0 [facility] Comment on above: Performed By: #### C BC #### [facility] [address] [place] [address] Dr. Mason Astudillo IG # 0.04 10e3/ul Critically high 0.00-0.03 [facility] Comment on above: Performed By: #### C BC #### [facility] [address] [place] [address] Dr. Mason Astudillo IG % 0.6 % Critically high 0.0-0.5 [facility] Comment on above: Performed By: #### C BC #### [facility] [address] [place] [address] Dr. Mason Astudillo LYMPH # 1.3 103/ul Normal 1.2-3.8 [facility] Comment on above: Performed By: #### C BC #### [facility] [address] [place] [address] Dr. Mason Astudillo Lymphocytes/100 WBC (Bld) 20.1 % Critically low 20.5-60.0 [facility] Comment on above: Performed By: #### C BC #### [facility] [address] [place] [address] Dr. Mason Astudillo MANUAL DIFF REQ NO Normal [facility] Comment on above: Performed By: #### C BC #### [facility] [address] [place] [address] Dr. Mason Astudillo MCH (RBC) [Entitic mass] 26.1 pg Normal 25.9-34.0 [facility] Comment on above: Performed By: #### C BC #### [facility] [address] [place] [address] Dr. Mason Astudillo MCHC (RBC) [Mass/Vol] 31.2 g/dL Normal 29.9-35.2 [facility] Comment on above: Performed By: #### C BC #### [facility] [address] [place] [address] Dr. Mason Astudillo MCV (RBC) [Entitic vol] 83.8 fL Normal 80.0-94.0 [facility] Comment on above: Performed By: #### C BC #### [facility] [address] [place] [address] Dr. Mason Astudillo MONO # 0.7 103/ul Normal 0.3-0.8 [facility] Comment on above: Performed By: #### C BC #### [facility] [address] [place] [address] Dr. Mason Astudillo Monocytes/100 WBC (Bld) 11.1 % Normal 1.7-12.0 [facility] Comment on above: Performed By: #### C BC #### [facility] [address] [place] [address] Dr. Mason Astudillo NEUT # 4.1 103/ul Normal 1.4-6.5 [facility] Comment on above: Performed By: #### C BC #### [facility] [address] [place] [address] Dr. Mason Astudillo Neutrophils/100 WBC (Bld) 65.3 % Normal 43.0-75.0 [facility] Comment on above: Performed By: #### C BC #### [facility] [address] [place] [address] Dr. Mason Astudillo Platelet mean volume (Bld) [Entitic vol] 10.3 fL Normal 9.5-13.5 [facility] Comment on above: Performed By: #### C BC #### [facility] [address] [place] [address] Dr. Mason Astudillo PLT 145 103/ul Critically low 150-450 [facility] Comment on above: Performed By: #### C BC #### [facility] [address] [place] [address] Dr. Mason Astudillo RBC 3.33 106/ul Critically low 4.70-6.10 [facility] Comment on above: Performed By: #### C BC #### [facility] [address] [place] [address] Dr. Mason Astudillo WBC 6.2 103/ul Normal 4.0-11.0 [facility] Comment on above: Performed By: #### C BC #### [facility] [address] [place] [address] Dr. Mason Astudillo Covid-19 PCR ([facility])on 01-06 SARS-CoV-2 (COVID-19) RNA GARCÍA+probe Ql (Unsp spec) Not detected Normal NOT DETECTED [facility] Comment on above: Result Comment: When [...] for this test is supported by the [place] of [employer] and Human Service's declaration that [...] used). Performed By: #### A 1C #### [facility] [address] [place] [address] Dr. Mason Astudillo FREE T3on 02-02-2022 FREE T3 2.16 pg/mlL Critically low 2.18-3.98 [facility] Comment on above: Performed By: #### P SAD #### [facility] [address] [place] [address] Dr. Mason Astudillo FREE T4on 02-02-2022 Free T4 [Mass/Vol] 1.09 ng/dL Normal 0.76-1.46 [facility] Comment on above: Performed By: #### F T4 #### [facility] [address] [place] [address] Dr. Mason Astudillo GLYCOHEMOGLOBIN A1Con 2021 ADA RECOMMENDATION SEE BELOW Normal [facility] Comment on above: Result Comment: ADA RECOMMENDED LIMIT 4.0 - 6.0 ADA THERAPEUTIC TARGET < 7.0 ACTION SUGGESTED > 7.0 Performed By: #### A 1C #### [facility] [address] [place] [address] Dr. Mason Astudillo Glucose [Mass/Vol] 160 mg/dL Normal [facility] Comment on above: Performed By: #### A 1C #### [facility] [address] [place] [address] Dr. Mason Astudillo HbA1c (Bld) [Mass fraction] 7.2 % Critically high 4.5-6.2 [facility] Comment on above: Performed By: #### A 1C #### [facility] [address] [place] [address] Dr. Mason Astudillo MAGNESIUMon 02-02-2022 Magnesium [Mass/Vol] 2.1 mg/dL Normal 1.8-2.4 [facility] Comment on above: Performed By: #### P SAD #### [facility] [address] [place] [address] Dr. Mason Astudillo POINT OF CARE GLUCOSEon 01-06 Glucose [Mass/Vol] 226 mg/dL Critically high 74-106 [facility] Comment on above: Performed By: #### C BC #### [facility] [address] [place] [address] Dr. Mason Astudillo Glucose [Mass/Vol] 249 mg/dL Critically high 74-106 [facility] Comment on above: Performed By: #### C BC #### [facility] [address] [place] [address] Dr. Mason Astudillo Glucose [Mass/Vol] 195 mg/dL Critically high 74-106 [facility] Comment on above: Performed By: #### P SAD #### [facility] [address] [place] [address] Dr. Mason Astudillo PROF CHEM 8 (BAS METB)on Anion gap [Moles/Vol] 12.6 mmol/L Normal [facility] Comment on above: Performed By: #### P OCGLUC #### [facility] [address] [place] [address] Dr. Mason Astudillo Calcium [Mass/Vol] 8.1 mg/dL Critically low 8.5-10.1 [facility] Comment on above: Performed By: #### P OCGLUC #### [facility] [address] [place] [address] Dr. Mason Astudillo Chloride [Moles/Vol] 101 mmol/L Normal 98-107 [facility] Comment on above: Performed By: #### P OCGLUC #### [facility] [address] [address] [address] Mason Astudillo CO2 [Moles/Vol] 29.4 mmol/L Normal 21.0-32.0 [facility] Comment on above: Performed By: #### P OCGLUC #### [facility] [address] [address] [address] Mason Astudillo Creatinine [Mass/Vol] 1.68 mg/dL Critically high 0.70-1.30 [facility] Comment on above: Performed By: #### P OCGLUC #### [facility] [address] [address] [address] Mason Astudillo EGFR-AF LATVIAN 47 mL/min/1.73m2 Critically low >=60 [facility] Comment on above: Result Comment: Prev iously reported as: (blank) On 02/02/2022 06:30 By [facility] Performed By: #### P OCGLUC #### [facility] [address] [place] [address] Dr. Mason Astudillo EGFR-NON AF LATVIAN 39 mL/min/1.73m2 Critically low >=60 [facility] Comment on above: Result Comment: Prev iously reported as: (blank) On 02/02/2022 06:30 By [facility] Performed By: #### P OCGLUC #### [facility] [address] [place] [address] Dr. Mason Astudillo Glucose [Mass/Vol] 264 mg/dL Critically high 74-106 [facility] Comment on above: Performed By: #### P OCGLUC #### [facility] [address] [place] [address] Dr. Mason Astudillo Potassium [Moles/Vol] 3.0 mmol/L Critically low 3.5-5.1 [facility] Comment on above: Performed By: #### P OCGLUC #### [facility] [address] [address] [address] Mason Astudillo Sodium [Moles/Vol] 140 mmol/L Normal 136-145 [facility] Comment on above: Performed By: #### P OCGLUC #### [facility] [address] [address] [address] Mason Astudillo Urea nitrogen [Mass/Vol] 45.0 mg/dL Critically high 7.0-18.0 [facility] Comment on above: Performed By: #### P OCGLUC #### [facility] [address] [address] [address] Mason Astudillo Urea nitrogen/Creatinine [Mass ratio] 26.8 mg/mg Normal [facility] Comment on above: Performed By: #### P OCGLUC #### [facility] [address] [place] [address] Dr. Mason Astudillo TROPONIN, HIGH SENSITIVITYon 02-02-2022 HSTROP 81.7 pg/mL Critically high 4.0-76.1 [facility] Comment on above: Result Comment: CUT- OFF POINTS HAVE BEEN ESTABLISHED BASED ON THE FOURTH UNIVERSAL DEFINITIONS OF MYOCARDIAL INFARCTION. THE UPPER REFERENCE LIMIT (URL) OF TROPONIN, DEFINED THE 99TH PERCENTILE OF cTnI DISTRIBUTION IN A REFERENCE POPULATION, HAS BEEN CONFIRMED THE DECISION THRESHOLD FOR PA DIAGNOSIS. repeated Performed By: #### B MP #### [facility] [address] [place] [address] Dr. Mason Astudillo TSHon 02-02-2022 TSH 1.200 uIU/mL Normal 0.358-3.740 [facility] Comment on above: Performed By: #### C BC #### [facility] [address] [place] [address] Dr. Mason Astudillo XR CHEST 1 Von [...] CARMINA LOVE Date: 2022-02-02 06:45 Normal [facility] RENAL FUNCTION PANELon 01-11 Albumin [Mass/Vol] 3.7 g/dL Normal 3.4-5.0 [facility] Comment on above: Performed By: #### P OCGLUC #### [facility] [address] [address] [address] Mason Astudillo Calcium [Mass/Vol] 8.6 mg/dL Normal 8.5-10.1 [facility] Comment on above: Performed By: #### P OCGLUC #### [facility] [address] [address] [address] Mason Astudillo Chloride [Moles/Vol] 104 mmol/L Normal 98-107 [facility] Comment on above: Performed By: #### P OCGLUC #### [facility] [address] [address] [address] Mason Astudillo CO2 [Moles/Vol] 28.0 mmol/L Normal 21.0-32.0 [facility] Comment on above: Performed By: #### P OCGLUC #### [facility] [address] [address] [address] Mason Astudillo Creatinine [Mass/Vol] 1.25 mg/dL Normal 0.70-1.30 [facility] Comment on above: Performed By: #### P OCGLUC #### [facility] [address] [address] [address] Mason Astudillo EGFR-AF LATVIAN >60 Normal >=60 [facility] Comment on above: Performed By: #### P OCGLUC #### [facility] [address] [address] [address] Mason Astudillo EGFR-NON AF LATVIAN 55 mL/min/1.73m2 Critically low >=60 [facility] Comment on above: Performed By: #### P OCGLUC #### [facility] [address] [address] [address] Mason Astudillo Glucose [Mass/Vol] 143 mg/dL Critically high 74-106 [facility] Comment on above: Performed By: #### P OCGLUC #### [facility] [address] [address] [address] Mason Astudillo Phosphate [Mass/Vol] 2.9 mg/dL Normal 2.6-4.7 [facility] Comment on above: Performed By: #### P OCGLUC #### [facility] [address] [address] [address] Mason Astudillo Potassium [Moles/Vol] 3.6 mmol/L Normal 3.5-5.1 [facility] Comment on above: Performed By: #### P OCGLUC #### [facility] [address] [place] [address] Dr. Mason Astudillo Sodium [Moles/Vol] 142 mmol/L Normal 136-145 [facility] Comment on above: Performed By: #### P OCGLUC #### [facility] [address] [place] [address] Dr. Mason Astudillo Urea nitrogen [Mass/Vol] 19.0 mg/dL Critically high 7.0-18.0 [facility] Comment on above: Performed By: #### P OCGLUC #### [facility] [address] [place] [address] Dr. Mason Astudillo UA RANDOMon 01-11-2022 Bilirubin Ql (U) Negative Normal NEGATIVE [facility] Comment on above: Performed By: #### U A #### [facility] [address] [place] [address] Dr. Mason Astudillo Clarity (U) CLEAR Normal CLEAR [facility] Comment on above: Performed By: #### U A #### [facility] [address] [place] [address] Dr. Mason Astudillo Color (U) LT. YELLOW Normal YELLOW [facility] Comment on above: Performed By: #### U A #### [facility] [address] [place] [address] Dr. Mason Astudillo Glucose Ql (U) >1000 Abnormal NEGATIVE [facility] Comment on above: Performed By: #### U A #### [facility] [address] [place] [address] Dr. Mason Astudillo Hemoglobin Ql (U) Negative Normal NEGATIVE [facility] Comment on above: Performed By: #### U A #### [facility] [address] [place] [address] Dr. Mason Astudillo Ketones Ql (U) Negative Normal NEGATIVE [facility] Comment on above: Performed By: #### U A #### [facility] [address] [place] [address] Dr. aMson Astudillo LEUKOCYTES Negative Normal NEGATIVE [facility] Comment on above: Performed By: #### U A #### [facility] [address] [place] [address] Dr. Mason Astudillo Nitrite Ql (U) Negative Normal NEGATIVE [facility] Comment on above: Performed By: #### U A #### [facility] [address] [place] [address] Dr. Mason Astudillo pH (U) 6.5 [pH] Normal 5-9 [facility] Comment on above: Performed By: #### U A #### [facility] [address] [place] [address] Dr. Mason Astudillo SPEC GRAVITY 1.010 Normal 1.005-<=1.0 25 [facility] Comment on above: Performed By: #### U A #### [facility] [address] [place] [address] Dr. Mason Astudillo UA PROTEIN Negative Normal NEGATIVE/ TRACE [facility] Comment on above: Performed By: #### U A #### [facility] [address] [place] [address] Dr. Mason Astudillo Urobilinogen Qn (U) 0.2 {Lewis'U}/dL Normal 0.2 - 1. 0 [facility] Comment on above: Performed By: #### U A #### [facility] [address] [place] [address] Dr. Mason Astudillo URINE T PROTEIN CREAT RATIOo n 01-11-2022 Protein (U) [Mass/Vol] 23.7 mg/dL Critically high <=12.0 [facility] Comment on above: Performed By: #### A 1C #### [facility] [address] [place] [address] Dr. Mason Astudillo UR PROT CREAT RAT 0.20 Normal [facility] Comment on above: Performed By: #### A 1C #### [facility] [address] [place] [address] Dr. Mason Astudillo URINE CREAT 115.99 mg/dL Normal 20.00-300.0 0 [facility] Comment on above: Performed By: #### A 1C #### [facility] [address] [address] [address] Mason Astudillo US KIDNEYSon 01-09-2022 US KIDNEYS EXAMINATION: US MAHENDRA LAMAS HISTORY: Hypertensive heart disease without congestive heart [...] BRISA SALAS Date: 2022-01-09 17:44 Normal [facility] FOLATE ([facility])on 2 Folate 11.0 ng/mL Normal >3.0 [facility] Comment on above: Result Comment: A [facility] folate concentration of less than 3.1 ng/mL is considered to represent clinical deficiency. Performed By: #### P SAD #### [facility] [address] [address] [address] Mason Astudillo TRANSFERRINon 12-20-2021 Transferrin [Mass/Vol] 316 mg/dL Critically high 149-313 [facility] Comment on above: Performed By: #### A 1C #### [facility] [address] [address] [address] Mason Astudillo CBC AUTO DIFFon 12-18-2021 BASO # 0.0 103/ul Normal 0.0-0.1 [facility] Comment on above: Performed By: #### U A #### [facility] [address] [place] [address] Dr. Mason Astudillo Basophils/100 WBC (Bld) 0.3 % Normal 0.2-2.0 [facility] Comment on above: Performed By: #### U A #### [place] [facility] [address] [place] [address] Dr. Mason Astudillo EO # 0.1 103/ul Normal 0.0-0.7 [facility] Comment on above: Performed By: #### U A #### [facility] [address] [place] [address] Dr. Mason Astudillo Eosinophils/100 WBC (Bld) 2.0 % Normal 0.9-7.0 [facility] Comment on above: Performed By: #### U A #### [facility] [address] [place] [address] Dr. Mason Astudillo Erythrocyte distribution width (RBC) [Ratio] 14.6 % Normal 11.0-15.0 [facility] Comment on above: Performed By: #### U A #### [facility] [address] [place] [address] Dr. Mason Astudillo Hematocrit (Bld) [Volume fraction] 35.6 % Critically low 42.0-54.0 [facility] Comment on above: Performed By: #### U A #### [facility] [address] [place] [address] Dr. Mason Astudillo Hemoglobin (Bld) [Mass/Vol] 10.7 g/dL Critically low 14.0-18.0 [facility] Comment on above: Performed By: #### U A #### [facility] [address] [place] [address] Dr. Mason Astudillo IG # 0.03 10e3/ul Normal 0.00-0.03 [facility] Comment on above: Performed By: #### U A #### [facility] [address] [place] [address] Dr. Mason Astudillo IG % 0.5 % Normal 0.0-0.5 [facility] Comment on above: Performed By: #### U A #### [facility] [address] [place] [address] Dr. Mason Astudillo LYMPH # 1.0 103/ul Critically low 1.2-3.8 [facility] Comment on above: Performed By: #### U A #### [facility] [address] [place] [address] Dr. Mason Astudillo Lymphocytes/100 WBC (Bld) 15.5 % Critically low 20.5-60.0 [facility] Comment on above: Performed By: #### U A #### [facility] [address] [place] [address] Dr. Mason Astudillo MANUAL DIFF REQ NO Normal [facility] Comment on above: Performed By: #### U A #### [facility] [address] [place] [address] Dr. Mason Astudillo MCH (RBC) [Entitic mass] 27.4 pg Normal 25.9-34.0 [facility] Comment on above: Performed By: #### U A #### [facility] [address] [place] [address] Dr. Mason Astudillo MCHC (RBC) [Mass/Vol] 30.1 g/dL Normal 29.9-35.2 [facility] Comment on above: Performed By: #### U A #### [facility] [address] [place] [address] Dr. Mason Astudillo MCV (RBC) [Entitic vol] 91.0 fL Normal 80.0-94.0 [facility] Comment on above: Performed By: #### U A #### [facility] [address] [place] [address] Dr. Mason Astudillo MONO # 0.5 103/ul Normal 0.3-0.8 [facility] Comment on above: Performed By: #### U A #### [facility] [address] [place] [address] Dr. Mason Astudillo Monocytes/100 WBC (Bld) 8.1 % Normal 1.7-12.0 [facility] Comment on above: Performed By: #### U A #### [facility] [address] [place] [address] Dr. Mason Astudillo NEUT # 4.5 103/ul Normal 1.4-6.5 [facility] Comment on above: Performed By: #### U A #### [facility] [address] [address] [address] Mason Astudillo Neutrophils/100 WBC (Bld) 73.6 % Normal 43.0-75.0 [facility] Comment on above: Performed By: #### U A #### [facility] [address] [place] [address] Dr. Mason Astudillo Platelet mean volume (Bld) [Entitic vol] 10.1 fL Normal 9.5-13.5 [facility] Comment on above: Performed By: #### U A #### [facility] [address] [place] [address] Dr. Mason Astudillo PLT 138 103/ul Critically low 150-450 [facility] Comment on above: Performed By: #### U A #### [facility] [address] [place] [address] Dr. Mason Astudillo RBC 3.91 106/ul Critically low 4.70-6.10 [facility] Comment on above: Performed By: #### U A #### [facility] [address] [place] [address] Dr. Mason Astudillo WBC 6.1 103/ul Normal 4.0-11.0 [facility] Comment on above: Performed By: #### U A #### [facility] [address] [place] [address] Dr. Mason Astudillo FERRITINon 12-18-2021 Ferritin [Mass/Vol] 16.0 ng/mL Critically low 26.0-388.0 [facility] Comment on above: Performed By: #### P OCGLUC #### [facility] [address] [place] [address] Dr. Mason Astudillo GLYCOHEMOGLOBIN A1Con 2021 ADA RECOMMENDATION SEE BELOW Normal [facility] Comment on above: Result Comment: ADA RECOMMENDED LIMIT 4.0 - 6.0 ADA THERAPEUTIC TARGET < 7.0 ACTION SUGGESTED > 7.0 Performed By: #### C BC #### [facility] [address] [place] [address] Dr. Mason Astudillo Glucose [Mass/Vol] 140 mg/dL Normal [facility] Comment on above: Performed By: #### C BC #### [facility] [address] [place] [address] Dr. Mason Astudillo HbA1c (Bld) [Mass fraction] 6.5 % Critically high 4.5-6.2 [facility] Comment on above: Performed By: #### C BC #### [facility] [address] [place] [address] Dr. Mason Astudillo IRON AND TIBCon 12-18-2021 % SATURATION 5.7 % Normal [facility] Comment on above: Performed By: #### P OCGLUC #### [facility] [address] [place] [address] Dr. Mason Astudillo Iron [Mass/Vol] 23.0 ug/dL Critically low 65.0-175.0 [facility] Comment on above: Performed By: #### P OCGLUC #### [facility] [address] [place] [address] Dr. Mason Astudillo TIBC DIRECT 413.0 ug/dL Normal 250.0-450.0 [facility] Comment on above: Performed By: #### P OCGLUC #### [facility] [address] [place] [address] Dr. Mason Astudillo PROF CHEM 8 (BAS METB)on Anion gap [Moles/Vol] 13.7 mmol/L Normal [facility] Comment on above: Performed By: #### P SAD #### [facility] [address] [place] [address] Dr. Mason Astudillo Calcium [Mass/Vol] 8.2 mg/dL Critically low 8.5-10.1 Th [facility] Comment on above: Performed By: #### P SAD #### [facility] [address] [address] [address] Mason Astudillo Chloride [Moles/Vol] 105 mmol/L Normal 98-107 [facility] Comment on above: Performed By: #### P SAD #### [facility] [address] [address] [address] Mason Astudillo CO2 [Moles/Vol] 27.1 mmol/L Normal 21.0-32.0 [facility] Comment on above: Performed By: #### P SAD #### [facility] [address] [address] [address] Mason Astudillo Creatinine [Mass/Vol] 1.32 mg/dL Critically high 0.70-1.30 [facility] Comment on above: Performed By: #### P SAD #### [facility] [address] [place] [address] Dr. Mason Astudillo EGFR-AF LATVIAN >60 Normal >=60 [facility] Comment on above: Performed By: #### P SAD #### [facility] [address] [place] [address] Dr. Mason Astudillo EGFR-NON AF LATVIAN 52 mL/min/1.73m2 Critically low >=60 [facility] Comment on above: Performed By: #### P SAD #### [facility] [address] [place] [address] Dr. Mason Astudillo Glucose [Mass/Vol] 121 mg/dL Critically high 74-106 [facility] Comment on above: Performed By: #### P SAD #### [facility] [address] [address] [address] Mason Astudillo Potassium [Moles/Vol] 3.8 mmol/L Normal 3.5-5.1 [facility] Comment on above: Performed By: #### P SAD #### [facility] [address] [place] [address] Dr. Mason Astudillo Sodium [Moles/Vol] 142 mmol/L Normal 136-145 [facility] Comment on above: Performed By: #### P SAD #### [facility] [address] [place] [address] Dr. Mason Astudillo Urea nitrogen [Mass/Vol] 27.0 mg/dL Critically high 7.0-18.0 [facility] Comment on above: Performed By: #### P SAD #### [facility] [address] [place] [address] Dr. Mason Astudillo Urea nitrogen/Creatinine [Mass ratio] 20.5 mg/mg Normal [facility] Comment on above: Performed By: #### P SAD #### [facility] [address] [place] [address] Dr. Mason Astudillo VITAMIN B12on 12-18-2021 Cobalamin (Vitamin B12) [Mass/Vol] 423.0 pg/mL Normal 193.0-986.0 [facility] Comment on above: Performed By: #### P OCGLUC #### [facility] [address] [place] [address] Dr. Mason Astudillo CBC AUTO DIFFon 11-08-2021 BASO # 0.0 103/ul Normal 0.0-0.1 [facility] Comment on above: Performed By: #### U A #### [facility] [address] [place] [address] Dr. Mason Astudillo Basophils/100 WBC (Bld) 0.3 % Normal 0.2-2.0 [facility] Comment on above: Performed By: #### U A #### [facility] [address] [place] [address] Dr. Mason Astudillo EO # 0.2 103/ul Normal 0.0-0.7 [facility] Comment on above: Performed By: #### U A #### [facility] [address] [place] [address] Dr. Mason Astudillo Eosinophils/100 WBC (Bld) 2.6 % Normal 0.9-7.0 [facility] Comment on above: Performed By: #### U A #### [facility] [address] [place] [address] Dr. Mason Astudillo Erythrocyte distribution width (RBC) [Ratio] 15.1 % Critically high 11.0-15.0 [facility] Comment on above: Performed By: #### U A #### [facility] [address] [address] [address] Mason Astudillo Hematocrit (Bld) [Volume fraction] 36.2 % Critically low 42.0-54.0 [facility] Comment on above: Performed By: #### U A #### [facility] [address] [place] [address] Dr. Mason Astudillo Hemoglobin (Bld) [Mass/Vol] 11.7 g/dL Critically low 14.0-18.0 [facility] Comment on above: Performed By: #### U A #### [facility] [address] [place] [address] Dr. Mason Astudillo IG # 0.04 10e3/ul Critically high 0.00-0.03 [facility] Comment on above: Performed By: #### U A #### [facility] [address] [place] [address] Dr. Mason Astudillo IG % 0.7 % Critically high 0.0-0.5 [facility] Comment on above: Performed By: #### U A #### [facility] [address] [place] [address] Dr. Mason Astudillo LYMPH # 0.9 103/ul Critically low 1.2-3.8 [facility] Comment on above: Performed By: #### U A #### [facility] [address] [place] [address] Dr. Mason Astudillo Lymphocytes/100 WBC (Bld) 14.4 % Critically low 20.5-60.0 [facility] Comment on above: Performed By: #### U A #### [facility] [address] [place] [address] Dr. Mason Astudillo MANUAL DIFF REQ NO Normal [facility] Comment on above: Performed By: #### U A #### [facility] [address] [place] [address] Dr. Mason Astudillo MCH (RBC) [Entitic mass] 29.8 pg Normal 25.9-34.0 [facility] Comment on above: Performed By: #### U A #### [facility] [address] [place] [address] Dr. Mason Astudillo MCHC (RBC) [Mass/Vol] 32.3 g/dL Normal 29.9-35.2 [facility] Comment on above: Performed By: #### U A #### [facility] [address] [place] [address] Dr. Mason Astudillo MCV (RBC) [Entitic vol] 92.3 fL Normal 80.0-94.0 [facility] Comment on above: Performed By: #### U A #### [facility] [address] [place] [address] Dr. Mason Astudillo MONO # 0.5 103/ul Normal 0.3-0.8 [facility] Comment on above: Performed By: #### U A #### [facility] [address] [place] [address] Dr. Mason Astudillo Monocytes/100 WBC (Bld) 7.5 % Normal 1.7-12.0 [facility] Comment on above: Performed By: #### U A #### [facility] [address] [place] [address] Dr. Mason Astudillo NEUT # 4.5 103/ul Normal 1.4-6.5 [facility] Comment on above: Performed By: #### U A #### [facility] [address] [place] [address] Dr. Mason Astudillo Neutrophils/100 WBC (Bld) 74.5 % Normal 43.0-75.0 [facility] Comment on above: Performed By: #### U A #### [facility] [address] [place] [address] Dr. Mason Astudillo Platelet mean volume (Bld) [Entitic vol] 10.1 fL Normal 9.5-13.5 [facility] Comment on above: Performed By: #### U A #### [facility] [address] [place] [address] Dr. Mason Astudillo PLT 132 103/ul Critically low 150-450 [facility] Comment on above: Performed By: #### U A #### [facility] [address] [place] [address] Dr. Mason Astudillo RBC 3.92 106/ul Critically low 4.70-6.10 [facility] Comment on above: Performed By: #### U A #### [facility] [address] [place] [address] Dr. Mason Astudillo WBC 6.0 103/ul Normal 4.0-11.0 [facility] Comment on above: Performed By: #### U A #### [facility] [address] [place] [address] Dr. Mason Astudillo PROF CHEM 8 (BAS METB)on Anion gap [Moles/Vol] 8.9 mmol/L Normal [facility] Comment on above: Performed By: #### B MP #### [facility] [address] [place] [address] Dr. Mason Astudillo Calcium [Mass/Vol] 7.9 mg/dL Critically low 8.5-10.1 [facility] Comment on above: Performed By: #### B MP #### [facility] [address] [place] [address] Dr. Mason Astudillo Chloride [Moles/Vol] 101 mmol/L Normal 98-107 [facility] Comment on above: Performed By: #### B MP #### [facility] [address] [place] [address] Dr. Mason Astudillo CO2 [Moles/Vol] 28.3 mmol/L Normal 21.0-32.0 [facility] Comment on above: Performed By: #### B MP #### [facility] [address] [place] [address] Dr. Mason Astudillo Creatinine [Mass/Vol] 1.22 mg/dL Normal 0.70-1.30 [facility] Comment on above: Performed By: #### B MP #### [facility] [address] [place] [address] Dr. Mason Astudillo EGFR-AF LATVIAN >60 Normal >=60 [facility] Comment on above: Performed By: #### B MP #### [facility] [address] [place] [address] Dr. Mason Astudillo EGFR-NON AF LATVIAN 57 mL/min/1.73m2 Critically low >=60 [facility] Comment on above: Performed By: #### B MP #### [facility] [address] [address] [address] Mason Astudillo Glucose [Mass/Vol] 167 mg/dL Critically high 74-106 [facility] Comment on above: Performed By: #### B MP #### [facility] [id number] Mason Astudillo Potassium [Moles/Vol] 3.2 mmol/L Critically low 3.5-5.1 [facility] Comment on above: Performed By: #### B MP #### [facility] [address] [address] [address] Mason Astudillo Sodium [Moles/Vol] 135 mmol/L Critically low 136-145 Th [facility] Comment on above: Performed By: #### B MP #### [facility] [address] [address] [address] Mason Astudillo Urea nitrogen [Mass/Vol] 23.0 mg/dL Critically high 7.0-18.0 [facility] Comment on above: Performed By: #### B MP #### [facility] [address] [place] [address] Dr. Mason Astudillo Urea nitrogen/Creatinine [Mass ratio] 18.9 mg/mg Normal [facility] Comment on above: Performed By: #### B MP #### [facility] [address] [address] [address] Mason Astudillo XR CHEST 2 Von [...] by: BRITTANIE CASILLAS Date: 2021-11-08 14:01 Normal [facility] Vital Signs Date Time Vital Sign Value Performing Clinician Facility 12-23-2022 13:13-0400 Blood Pressure Location Mekhi VERGARA [facility] 12-23-2022 13:13-0400 Diastolic blood pressure 68 mm[Hg] Mekhi VERGARA [facility] 12-23-2022 13:13-0400 Heart rate 70 /min Mekhi VERGARA [facility] 12-23-2022 13:13-0400 Systolic blood pressure 120 mm[Hg] Mekhi VERGARA [facility] 05-10-2022 10:43-0400 Body height 177.8 cm Pacc 6 Work Phone: [facility] 05-10-2022 10:43-0400 Body temperature 97.81 [degF] Pacc 6 Work Phone: [facility] 05-10-2022 10:43-0400 Body weight 86.18 kg Pacc 6 Work Phone: [facility] 05-10-2022 10:43-0400 Diastolic blood pressure 75 mm[Hg] Pacc 6 Work Phone: [facility] 05-10-2022 10:43-0400 Heart rate 86 /min Pacc 6 Work Phone: [facility] 05-10-2022 10:43-0400 SaO2% (BldA) [Mass fraction] 97 % Pacc 6 Work Phone: [facility] 05-10-2022 10:43-0400 Systolic blood pressure 124 mm[Hg] Pacc 6 Work Phone: [facility] 04-22-2022 15:42-0400 Blood Pressure Location Mekhidominique VERGARA [facility] 04-22-2022 15:42-0400 Diastolic blood pressure 64 mm[Hg] Mekhi VERGARA [facility] 04-22-2022 15:42-0400 Heart rate 76 /min Mekhi VERGARA [facility] 04-22-2022 15:42-0400 Respiratory rate 60 /min Mekhi VERGARA [facility] 04-22-2022 15:42-0400 Systolic blood pressure 117 mm[Hg] Mekhi VERGARA [facility] 04-17-2022 12:55-0400 Body height 177.8 cm Tristin Wilcox MD, PhD Work Phone: [facility] 04-17-2022 12:55-0400 Body temperature 98.4 [degF] Tristin Wilcox MD, PhD Work Phone: [facility] 04-17-2022 12:55-0400 Body weight 86.18 kg Tristin Wilcox MD, PhD Work Phone: [facility] 04-17-2022 12:55-0400 Diastolic blood pressure 74 mm[Hg] Tristin Wilcox MD, PhD Work Phone: [facility] 04-17-2022 12:55-0400 Heart rate 70 /min Tristin Wilcox MD, PhD Work Phone: [facility] 04-17-2022 12:55-0400 Respiratory rate 16 /min Tristin Wilcox MD, PhD Work Phone: [facility] 04-17-2022 12:55-0400 SaO2% (BldA) [Mass fraction] 99 % Tristin Wilcox MD, PhD Work Phone: [facility] 04-17-2022 12:55-0400 Systolic blood pressure 127 mm[Hg] Tristin Wilcox MD, PhD Work Phone: [facility] 10-16-2021 14:39-0400 Blood Pressure Location Yenni N[facility] 10-16-2021 14:39-0400 Diastolic blood pressure 76 mm[Hg] Yenni NILL [facility] 10-16-2021 14:39-0400 Heart rate 68 /min Yenni NILL [facility] 10-16-2021 14:39-0400 Respiratory rate 16 /min Yenni NILL [facility] 10-16-2021 14:39-0400 Systolic blood pressure 106 mm[Hg] Yenni NILL [facility] Encounters Encounter Date Encounter Type Care Provider Facility Start: 08-19-2023 End: 08-20-2023 ambulatory Mekhi VERGARA [place] Start: 08-19-2023 End: 08-20-2023 ambulatory Mekhi VERGARA Facility[place] Start: 08-19-2023 End: 08-19-2023 Patient encounter procedure Mekhi VERGARA [facility] Start: 08-19-2023 End: 08-19-2023 Patient encounter procedure Mekhi VERGARA [facility] Start: 07-28-2023 End: 07-28-2023 ambulatory DE LA O FAWWAD Not Available Start: 07-03-2023 End: 07-03-2023 ambulatory DE LA O FAWWAD Not Available Start: 06-20-2023 End: 06-21-2023 ambulatory DE LA O FAWWAD Facility: [facility] Start: 06-18-2023 End: 06-18-2023 ambulatory SHAIKH LEXI Not Available Start: 06-10-2023 ambulatory SHAIKH LEXI Facility: [facility] Start: 06-09-2023 End: 06-10-2023 ambulatory Mallorie Joy MD Facility:[facility] Start: 06-05-2023 End: 06-05-2023 ambulatory CARMINA CROOK Not Available Start: 05-27-2023 End: 05-27-2023 ambulatory NITESH GANT Not Available Start: 05-20-2023 End: 05-20-2023 ambulatory CARMINA CROOK Not Available Start: 05-05-2023 End: 05-06-2023 ambulatory Mallorie Joy MD Facility:[facility] Start: 04-21-2023 End: 04-22-2023 ambulatory Mallorie Joy MD Facility:[facility] Start: 03-31-2023 End: 04-01-2023 ambulatory Mallorie Joy MD Facility:[facility] Start: 03-24-2023 End: 03-25-2023 ambulatory Mallorie Joy MD Facility:[facility] Start: 03-07-2023 End: 03-07-2023 ambulatory [facility] Start: 02-03-2023 End: 02-04-2023 ambulatory Mallorie Joy MD Facility:[facility] Start: 12-23-2022 End: 12-24-2022 ambulatory SHAIKH LEXI Facility:[facility] Start: 12-23-2022 End: 12-23-2022 Patient encounter procedure Mekhi VERGARA [facility] Start: 11-21-2022 ambulatory NARENDRANATH LAKSHMIPATHY . Facility:[facility] Start: 10-31-2022 ambulatory NARENDRANATH LAKSHMIPATHY . Facility:[facility] Start: 10-29-2022 End: 10-29-2022 ambulatory NARENDRANATH LAKSHMIPATHY . Facility:[facility] Start: 10-24-2022 End: 10-25-2022 ambulatory NARENDRANATH LAKSHMIPATHY . Facility:[facility] Start: 10-18-2022 End: 10-18-2022 ambulatory [facility] Start: 10-11-2022 End: 10-12-2022 ambulatory [facility] Start: 09-11-2022 End: 09-11-2022 ambulatory [facility] Start: 08-28-2022 Evaluation and manag ement of inpatient [facility] Start: 08-27-2022 Evaluation and manag ement of inpatient [facility] Start: 08-27-2022 End: 08-29-2022 Evaluation and management of inpatient [facility] Start: 08-20-2022 End: 08-21-2022 ambulatory DOCAB [facility] Start: 08-20-2022 End: 08-20-2022 ambulatory [facility] Start: 08-16-2022 End: 08-17-2022 ambulatory [facility] Start: 08-06-2022 End: 08-06-2022 Patient encounter procedure Mekhi VERGARA [facility] Start: 08-05-2022 End: 08-05-2022 ambulatory [facility] Start: 07-30-2022 End: 07-31-[address] PAULINE WINSTON . Facility:[facility] Start: 07-09-2022 End: 07-09-2022 ambulatory SHAIKH Milena ELLIOTT Facility:[facility] Start: 06-25-2022 End: 06-26-2022 ambulatory SHAIKH Milena ELLIOTT Facility:[facility] Start: 06-24-2022 End: 06-24-2022 ambulatory MARITZA [facility] Start: 05-27-2022 End: 05-27-2022 [facility]: 05-17-2022 End: 05-17-2022 ambulatory TRISTIN WILCOX Facility:[facility] Start: 05-16-2022 Telephone encounter Maria Luisa Garcia RN C olorectal Surgery Comment on above: Centrifugal Spinner - O ther Start: 05-10-2022 End: 05-11-2022 ambulatory TRISTIN WILCOX Facility:[facility] Start: 05-10-2022 Encounter for other preprocedural examination TRISTIN WILCOX [facility] Start: 05-10-2022 End: 05-10-2022 ambulatory Pacc Main 6 Work Phone: Pre Anesthesia Comment on above: Pre-op evaluation (P rimary Dx); Type 2 diabetes mellitus without complication, without long-term current use of insulin ([facility]); Radiculopathy, cervical region; Dementia in other diseases classified elsewhere, unspecified severity, without behavioral disturbance, psychotic disturbance, mood disturbance, and anxiety ([facility]); Intracranial hemorrhage ([facility]); Essential (primary) hypertension; Sleep apnea, unspecified type; Chronic obstructive pulmonary disease, unspecified COPD type (HCC); Arteriosclerosis of coronary artery; PAF (paroxysmal atrial fibrillation) ([facility]); History of DVT (deep vein thrombosis); Gastroesophageal reflux disease with esophagitis, unspecified whether hemorrhage; Chronic kidney disease, stage 4 (severe) ([facility]); Calculus of kidney; Hypothyroidism unspecified; Iron deficiency anemia due to chronic blood loss; History of prostate cancer; History of primary malignant neoplasm of urinary bladder; Gout, unspecified cause, unspecified chronicity, unspecified site Patient Education Start: 05-10-2022 End: 05-11-2022 ambulatory TRISTIN WILCOX Facility:[facility] Start: 05-10-2022 End: 05-10-2022 Admission to establishment Pacc Main 6 [facility] Start: 05-10-2022 End: 05-10-2022 Preprocedural examination done Pacc Main 6 Work Phone: Pre Anesthesia Start: 05-09-2022 End: 05-10-2022 ambulatory DE LA O H FAWWAD Facility:[facility] Start: 05-01-2022 End: 05-01-2022 ambulatory FRANKY VERONICA Facility:[facility] Start: 04-25-2022 Telephone encounter Tristin Shawbraxton Colorectal Surgery Comment on above: Appointment Start: 04-24-2022 Telephone encounter Marika Crabtree Colorectal Surgery Comment on above: Centrifugal Spinner - O ther Start: 04-22-2022 End: 04-22-2022 Patient encounter procedure Mekhi VERGARA [facility] Start: 04-18-2022 End: 04-19-2022 ambulatory DE LA O H FAWWAD Facility:[facility] Start: 04-17-2022 End: 04-18-2022 ambulatory TRISTIN WILCOX Facility:[facility] Start: 04-17-2022 End: 04-17-2022 Patient encounter procedure Tristin Wilcox MD, PhD Work Phone: Colorectal Surgery Comment on above: Fourth degree hemorr hoids (Primary Dx) Start: 04-16-2022 End: 04-16-2022 ambulatory DE LA O H FAWWAD Facility:[facility] Start: 04-11-2022 End: 04-12-2022 ambulatory DE LA O H FAWWAD Facility:[facility] Start: 04-11-2022 End: 04-12-2022 ambulatory CALVIN MOREJON . Facility:[facility] Start: 03-26-2022 End: 03-27-2022 ambulatory DE LA O H FAWWAD Facility:[facility] Start: 03-18-2022 End: 03-19-2022 ambulatory DE LA O H FAWWAD Facility:[facility] Start: 03-18-2022 End: 03-18-2022 ambulatory [facility] Start: 02-18-2022 End: 02-19-2022 ambulatory DE LA O H FAWWAD Facility:[facility] Start: 02-14-2022 End: 02-15-2022 ambulatory CALVIN MOREJON . Facility:[facility] Start: 02-02-2022 End: 02-06-2022 Evaluation and management of inpatient SHAIKH Milena SARKARD Facility:[facility] Start: 01-11-2022 End: 01-12-2022 ambulatory DE LA O H YOLIWAD Facility:[facility] Start: 01-10-2022 End: 01-11-2022 ambulatory CALVIN MOREJON . Facility:[facility] Start: 01-09-2022 End: 01-10-2022 ambulatory SHAIKH Milena SARKARD Facility:[facility] Start: 12-18-2021 End: 12-19-2021 ambulatory SHAIKH Milena SARKRAD Facility:[facility] Start: 12-13-2021 End: 12-13-2021 Patient encounter procedure 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 [facility] [place] Start: 11-29-2021 End: 11-30-2021 ambulatory CALVIN MOREJON . Facility:[facility] Start: 11-27-2021 End: 11-27-2021 Patient encounter procedure 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 General Surgery [facility] [place] Start: 11-21-2021 End: 11-22-2021 ambulatory SHAIKH Milena SARKARD Facility:[facility] Start: 11-17-2021 ambulatory SHAIKH Milena ELLIOTT Facilit y:[facility] Start: 11-09-2021 Encounter for preprocedural cardiovascular examination DR YENNI STANLEY . [facility] Start: 11-09-2021 Encounter for preprocedural laboratory examination DR YENNI STANLEY . [facility] Start: 11-08-2021 End: 11-09-[address] NONE LISTED REQUEST Facility:[facility] Start: 11-08-2021 End: 11-09-2021 Encounter for preprocedural cardiovascular examination NONE LISTED REQUEST Facility:[facility] Start: 10-16-2021 End: 10-16-2021 Patient encounter procedure 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 General Surgery [facility] [place] Start: 10-09-2021 End: 10-09-2021 Off-Site Iraida James [facility] Start: 01-20-2017 End: 01-21-2017 Ambulatory DEFAULT PHYSICIAN Facility:[facility] Procedures Date Procedure Procedure Detail Performing Clinician Start: 08-05-2022 Cystoscopy Mekhi URSULA Start: 05-10-2022 Antibody screen TRISTIN AURELIO DURAES Comment on above: Order Comment: Specimen Type: BLOOD SPEC IMENOrdering Facility: [facility] Address: [address] [place] [address] Performed By: #### T [id number] ####CC MAIN BLOOD BANKCLIA [id number] [address] OF [facility] Start: 05-09-2022 PSA screening SHAIKH LEXI Comment on above: Performed By: #### A1C #### [facility] [address] [place] [address] Dr. Mason Astudillo Start: 04-18-2022 PSA screening SHAIKH LEXI Comment on above: Performed By: #### PSAD #### [facility] [address] [place] [address] Dr. Mason Astudillo Start: 04-17-2022 Sigmoidoscopy flx [...] guidance Iraida James Arthroplasty of knee 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 Comment on above: left Craniotomy and evacu ation of blood clot Yenni NEALL Discectomy of spine Yenni NEALL Extraction of cataract Justin laura NEALL Comment on above: bilateral History of hernia repair Fabio hael NILL History of surgical procedure on cervical spine Mekhi VERGARA Parathyroidectomy Yenni NI LL Radiofrequency ablation Aba ael NILL Comment on above: C3-C6 Tonsillectomy and adenoidectomy Yenni NEALL 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 VERGARA Plan of Treatment Date Care Activity Detail Author Start: 11-07-2022 Hemoglobin A1c/Hemoglobin.total in Blood HBA1C [facility] Start: 05-10-2022 End: 07-10-2022 Hemoglobin A1c in Blood [facility] Work Phone: Comment on above: Expected: 05/10/2022 , Expires: 07/10/2022 Start: 03-07-2022 Influenza vaccination INFLUENZA (#1) [facility] Start: 08-21-2021 COVID-19 VACCINE (4 - Booster for Moderna series) COVID-19 VACCINE (4 - Booster for Moderna series) [facility] Start: 07-07-2021 ADVANCE DIRECTIVE DISCUSSION ADVANCE DIRECTIVE DISCUSSION [facility] Start: 07-07-2021 DEPRESSION ASSESSMENT DEPRESSION ASS ESSMENT [facility] Start: 2001 PNEUMOCOCCAL: 65+ (1 - PCV) PNEUMOCOCCAL: 65+ (1 - PCV) [facility] Start: 1986 SHINGRIX VACCINE (1 of 2) SHINGRIX VACCINE (1 of 2) [facility] Start: 1981 DIABETES SCREEN DIABETES SCREEN [facility] Start: 12-17-1955 Urine microalbumin profile DTAP,TDAP,TD (1 - Tdap) [facility] Start: 1954 Hepatitis B surface antibody level LDL CHOLESTEROL [facility] Start: 1954 SPIROMETRY SPIROMETRY [facility] Start: 1946 3 comp foot exam completed DIABETIC FOOT EXAM [facility] Start: 1946 Hepatitis B screening URINE ALBUMIN:CREATININE RATIO [facility] Start: 1946 Hepatitis C antibody , confirmatory test DILATED RETINAL EXAM [facility] Start: 1942 PNEUMOCOCCAL: 65+ (1 - PCV) PNEUMOCOCCAL: 65+ (1 - PCV) [facility] Start: 1941 Hemoglobin A1c/Hemoglobin.total in Blood HBA1C [facility] Immunizations Immunization Date Immunization Notes Care Provider Boone horton 05-14-2022 influenza virus vacc ine, unspecified formulation Mekhi VERGARA [facility] 06-26-2021 SARS-CoV-2 (COVID-19 ) mRNA-1273 vaccine Mekhi VERGARA [facility] 04-06-2021 influenza virus vacc ine, unspecified formulation Iraida James [facility] 03-28-2021 influenza virus vacc ine, unspecified formulation Mekhi VERGARA [facility] 02-04-2021 influenza virus vacc ine, unspecified formulation Iraida James [facility] 09-12-2020 SARS-CoV-2 (COVID-19 ) mRNA-1273 vaccine Mekhi VERGARA [facility] 08-14-2020 SARS-CoV-2 (COVID-19 ) mRNA-1273 vaccine Mekhi VERGARA [facility] 05-25-2020 pneumococcal polysaccharide vaccine, 23 valent Mekhi VERGARA [facility] 05-25-2020 zoster vaccine recombinant Mekhi VERGARA [facility] 02-25-2020 influenza virus vacc ine, unspecified formulation Mekhi VERGARA [facility] 02-25-2020 zoster vaccine recombinant Mekhi VERGARA [facility] 05-11-2019 tetanus toxoid, redu nimesh diphtheria toxoid, and acellular pertussis vaccine, adsorbed Mekhi VERGARA [facility] 03-23-2019 influenza virus vacc ine, unspecified formulation Mekhi VERGARA [facility] 03-23-2019 pneumococcal conjuga te vaccine, 13 valent Mekhi VERGARA [facility] 04-30-2018 influenza virus vacc ine, unspecified formulation Mekhi VERGARA [facility] 02-13-2017 influenza virus vacc ine, unspecified formulation Mekhi VERGARA [facility] 04-19-2015 influenza virus vacc ine, unspecified formulation Mekhi VERGARA [facility] 04-19-2015 pneumococcal polysaccharide vaccine, 23 valent Mekhi VERGARA [facility] 04-13-2015 influenza virus vacc ine, unspecified formulation Mekhi VERGARA [facility] 04-22-2007 influenza, whole Mekhi THOMAS [facility] Payers Date Payer Category Payer Unknown 2022 Unknown [id number] 2013 Private Health Insurance [facility] AAR SUPPLEMENT [id number] 2013-Present [phone] [address] [place] [address] Indemnity [id number] 2001 Medicare [id number] 1959 Medicare [id number] 1959 Unknown [id number] 1936 Unknown [id number] 2.16.840.1.789482.3.579.2 .593 1936 Unknown [id number] 2.16.840.1.442372.3.579.2 .593 1936 Unknown [id number] 2.16.840.1.536649.3.579.2 .593 1936 Unknown [id number] 2.16.840.1.552286.3.579.2 .593 1936 Unknown [id number] 2.16.840.1.489205.3.579.2 .593 1936 Unknown [id number] 2.16.840.1.294947.3.579.2 .593 1936 Unknown [id number] 2.16.840.1.313639.3.579.2 .593 1936 Unknown [id number] 2.16.840.1.099382.3.579.2 .593 1936 Unknown [id number] 2.16.840.1.819378.3.579.2 .593 1936 Unknown [id number] 2.16.840.1.212762.3.579.2 .593 1936 Unknown [id number] 2.16.840.1.220782.3.579.2 .593 1936 Unknown [id number] 2.16.840.1.668039.3.579.2 .593 1936 Unknown [id number] 2.16.840.1.548952.3.579.2 .593 1936 Unknown [id number] 2.16.840.1.429902.3.579.2 .593 1936 Unknown [id number] 2.16.840.1.154585.3.579.2 .593 1936 Unknown [id number] 2.16.840.1.491373.3.579.2 .593 1936 Unknown [id number] 2.16.840.1.551638.3.579.2 .593 1936 Unknown [id number] 2.16.840.1.944288.3.579.2 .593 1936 Unknown [id number] 2.16.840.1.439861.3.579.2 .593 1936 Unknown [id number] 2.16.840.1.379905.3.579.2 .593 1936 Unknown [id number] 2.16.840.1.910709.3.579.2 .593 1936 Unknown [id number] 2.16.840.1.614370.3.579.2 .593 1936 Unknown [id number] 2.16.840.1.001981.3.579.2 .593 1936 Unknown [id number] 2.16.840.1.553996.3.579.2 .593 1936 Unknown [id number] 2.16.840.1.603469.3.579.2 .593 1936 Unknown [id number] 2.16.840.1.482833.3.579.2 .593 1936 Unknown [id number] 2.16.840.1.917760.3.579.2 .196 1936 Unknown [id number] 2.16.840.1.588841.3.579.2 .196 1936 Unknown [id number] 2.16.840.1.804939.3.579.2 .196 1936 Unknown [id number] 2.16.840.1.395320.3.579.2 .196 1936 Unknown [id number] 2.16.840.1.535345.3.579.2 .1936 Unknown [id number] 2.16.840.1.313762.3.579.2 .196 1936 Unknown [id number] 2.16.840.1.810871.3.579.2 .1259 1936 Unknown [id number] 2.16.840.1.046925.3.579.2 .1259 1936 Unknown [id number] 2.16.840.1.330783.3.579.2 .1259 1936 Unknown [id number] 2.16.840.1.208574.3.579.2 .1259 1936 Unknown [id number] 2.16.840.1.930480.3.579.2 .1259 1936 Unknown [id number] 2.16.840.1.831027.3.579.2 .1259 1936 Unknown [id number] 2.16.840.1.695368.3.579.2 .727 1936 Unknown [id number] 2.16.840.1.322932.3.579.2 .727 1936 Unknown [id number] 2.16.840.1.772939.3.579.2 .727 1936 Unknown [id number] 2.16.840.1.558498.3.579.2 .727 Social History Date Type Detail Facility Start: 10-09-2021 End: 06-20-2023 Tobacco smoking status Never smoked tobacco (finding) [facility] Sex Assigned At Male [facility] Tobacco smoking status Never [facility] Start: 04-17-2022 Tobacco use and exposure Smokeless tobacco non-user [facility] Start: 04-17-2022 End: 05-10-2022 Alcohol intake Current drinker of alcohol (finding) [facility] Start: 04-17-2022 Alcohol Comment very occasionally [facility] Start: 1935 Sex Assigned At Not on file C [facility] Start: 04-07-2022 End: 05-10-2022 Exposure to SARS-CoV-2 (event) Not sure [facility] Start: 05-10-2022 Alcohol Comment Rarely [facility] Functional Status Date Assessment Result Facility 08-19-2023 Functional Status N/A [facility] 12-23-2022 Functional Status N/A [facility] 08-01-2022 Functional Status N/A [facility] 04-22-2022 Functional Status N/A [facility] Clinical Notes 10-09-2021 to 08-19-2023 Telephone Encounter - Maria Luisa Garcia RN - 05/16/2022 10:17 AM Darline Arriaga RN - 05/10/2022 2:13 PM Sindi Downing PA-C - 05/10/2022 10:50 AM EDTPatient Instructions Note Date & Type Note Facility 08-19-2023 Hospital Discharge instructions Patient Education 08/19/2023 16:19:23 [facility] - Cystoscopy Discharge Instructions (CUSTOM) Cystoscopy [...] fever over 100 degrees. Follow Up Care 07/17/2023 09:02:26 With:Mekhi VERGARA Address: [facility] [address], [place] [address]- Business (1) When: Unknown Comments:Office will call to schedule follow up [facility] 08-19-2023 Note Custom Cystoscopy ? Voiding after the [...] you have a fever over 100 degrees. [facility] 08-19-2023 Evaluation + Plan note Diagnostic Tests PendingUroVysion Fish and Urine Cyto ([facility]) 08/19/23 [facility] 03-07-2023 Note Watchman implant 08/08 Continue ASA for lifelong, may stop plavix being that > 6 months since implantation No need for Antibiotic prophylaxis at this time [facility] 03-07-2023 Note Coronary artery dise ase is stable Continue GDMT- ASA, lipitor, metoprolol continue risk factor modifications- heart healthy diet, regular exercise as tolerated and continue all medications. [facility] 03-07-2023 Note Hypertension is well controlled Continue all meds [facility] 03-07-2023 Note Continue lipitor [facility] 03-07-2023 Note [id number] VASc= 4 No anticoagulation s/p watchman implantation Rate remains controlled metoprolol and diltiazem [facility] 03-07-2023 Note Patient here for 6 m o follow up s/p Watchman implant. Doing ok from cardiac standpoint. Denies chest pain, SOB, and palpitations. Still on Plavix as of now. Review of Systems Cardiovascular: Positive for leg swelling. Hematologic/Lymphatic: Negative. Musculoskeletal: Positive for arthritis, back pain, joint pain and myalgias. All other systems reviewed and are negative. [facility] 03-07-2023 Note [facility] CARDI[facility]Y PROGR ESS NOTE [...] tablet 40 mg in the morning. HYDROcodone-acetaminophen ([place]) 5-325 mg tablet Take 1 tablet by [...] Global left ventricul (more content not included)... [facility] 12-23-2022 Hospital Discharge instructions Patient Education 12/23/2022 [...] if anything looks unusual. Men with a yljdmn-mnvn-vezgwd risk for skin cancer may want to see a medical sales specialist (security installer) for an annual body check. What are the benefits of screening? Cancer screening is done to look for cancer in the very early stages, before it spreads and becomes harder to treat and before you would start to notice symptoms. Finding cancer early improves the chances of successful treatment. It may save your life. Where to find more information [place] [employer]: www.cancer.org Centers for Disease Control and Prevention: www.cdc.gov National Cancer [place]: www.cancer.gov Contact a health care provider if: [...] provider. Document Revised: 11/19/2021 Document Reviewed: 05/19/2020 [employer] Patient Education 2022 [employer]. Follow Up Care 04/22/2022 16:39:16 With:URSULA WORKMAN, Mekhi Oh, URL Address: [facility] [address] [place] [address]- When: Unknown [facility] 10-24-2022 Note CONSULTATION CONSULTATION DATE: 10/24/2022 [...] which is stable. MEDICATION: Current medication includes [place] 5 mg q.i.d. p.r.n. He reports it does improve his pain symptoms, improving his quality of life, level of functioning and his sleep pattern. He denies any side effects. He is also on Lyrica 75 mg at h.s., baclofen 10 mg at h.s. and Tylenol Extra Strength six pills a day, which he takes concomitantly with [place]. EXAM: Notable for patient having left sided [...] our patients to inform us about any efyv-cqe-dvdmlzz medications or herbal remedies/nutritional supplements/alternative remedies. 2. [...] options with their primary care provider. [facility] 10-18-2022 Note Patient here for fol low up KINZA s/p Watchman device implant. Denies chest pain and SOB. Doing very well. Review of Systems Cardiovascular: Positive for leg swelling. Hematologic/Lymphatic: Negative. Musculoskeletal: Positive for arthritis, back pain, joint pain and myalgias. All other systems reviewed and are negative. [facility] 10-18-2022 Note [place] [facility] Subjective Ben Guadalupe is a 86 [...] February 2022 he was admitted to the [facility] with palpitations and chest pain. He [...] oriented to perso (more content not included)... [facility] 09-11-2022 Note [place] [facility] Subjective Ben Guadalupe is a 86 [...] February 2022 he was admitted to the [facility] with palpitations and chest pain. He [...] Right lower le (more content not included)... [facility] 09-11-2022 Note Patient here for 2 w kletsel dehe wintun follow up Watchman implant. Says he feels good. Denies chest pain and SOB. Review of Systems Cardiovascular: Positive for leg swelling. Hematologic/Lymphatic: Negative. Musculoskeletal: Positive for arthritis, back pain and myalgias. All other systems reviewed and are negative. [facility] 08-29-2022 Note Subjective Patient is s/p watchmen and s/p [facility] Patient restingin bed, doing well this morning. States he feels great and is ready to go home I did inform him of the [facility] results and that were no [...] -- 81 20 96 % -- 08/28/22 194 136/85 -- -- 80 19 98 % [...] from the past 1 day. CV diagnostics: [facility] - 08/28/22 Conclusion Cardiovascular Laboratory [...] reduce the risk of stroke given elevated [id number] score of 5 due to age, hypertension, [...] He had watc (more content not included)... [facility] 08-29-2022 Note MARCELLA screened pt at [facility]. Pt was alert and oriented. Pt lives in manufactured home by himself. There are no steps into his home. Pt's son and grandson live in other homes next to him. He uses a scooter outside and a walker inside for DME. He supports himself through SSI and half-way. Upon DC, pt will have transportation to home by family. MARCELLA has no other concerns at this time. [facility] 08-28-2022 Note Cardiovascular Labor atory Report FINAL [...] left radial artery was obtained. A 6 Welsh glide sheath was inserted without difficulty. Bilateral [...] at the bifurcation with a prominent septal gis instructor. There is subsequent caliber reduction in the [...] descending artery. INDICATIONS: Chest pain, elevated Troponin [facility] 08-28-2022 Note Subjective Patient is s/p watchmen He is doing well today; his chest discomfort has completely resolved, he denies any chest pain, SOB, RIOS, fatigue. Objective Patient Vitals for the past 24 hrs: BP Temp Temp src Pulse Resp SpO2 Height Weight 02/22/23 0935 139/78 36.3 ???C (97.4 ???F) Temporal [...] Clinic. Assessment/Plan Principal Problem: Paroxysmal atrial fibrillation ([facility]) #PAF #s/p watchmen 08/27/22 #anemia #hx rectal bleeding #mild cad #DM2 #htn The patient is a 86 y.o. male with complex prior medical history including Paroxysmal atrial fibrillation, who needs long-term anticoagulation therapy to reduce the risk of stroke given elevated [id number]-MEKe score of 5 due to age, hypertension, [...] mg daily. As needed nitro ,albuterol and [place] -repeat echo and ekg were not concerning [...] discussed with Dr. Danielle and Dr. Cheney. [facility] 08-27-2022 Note Maritza THIRD SHIFT LIEUTENANT on unit- ho lding off on trops at this time. Stat Echo ordered- going down shortly. [facility] 08-27-2022 Note Maritza cardiology THIRD SHIFT LIEUTENANT in at bedside- patient's chest pressure is slightly worsening than prior. Stat EKG and trops ordered- EKG obtained- still awaiting trops. [facility] 08-27-2022 Note Subjective Patient is s/p watchmen [...] be scheduled for a 45-day KINZA per [facility] protocol, and follow up in Cardiology Clinic. Assessment/Plan Principal Problem: Paroxysmal atrial fibrillation (CMS/HCC) #PAF #s/p watchmen 08/27/22 #anemia #hx rectal bleeding #mild cad #DM2 #htn The patient is a 86 y.o. male with complex prior medical history including Paroxysmal atrial fibrillation, who needs long-term anticoagulation therapy to reduce the risk of stroke given elevated [id number]-LDPx score of 5 due to age, hypertension, [...] mg daily. As needed nitro ,albuterol and [place] -repeat echo and ekg were not concerning at this time -will follow up with troponin for postop chest discomfort, likely from KINZA irritation or plavix, will order gi cocktail to see if that improves symptoms -likely discharge tomorrow [facility] 08-27-2022 Note Pt calling out deborah vega complaints of small amounts of chest pressure at this time. RN called coil binder- states will come to bedside to round very shortly. RN to follow up. [facility] 08-27-2022 Note Patient: Ben oh Procedure Information Date/Time: 08/27/22 0830 Procedure: Left atrial appendage closure (transvenous) - 829 case Location: [facility] EARLY CHILDHOOD DIRECTOR 2 BIPLANE / [facility] VASCULAR LAB (Cath) Providers: Kavita Danielle [...] with fellow and attending. Additional Equipment Requests [facility] 08-20-2022 Note Patient: Ben oh Procedure Information Date/Time: 08/20/22 1030 Procedure: TRANSESOPHAGEAL ECHO (KINZA) Location: [facility] Vascular Lab Clinical [...] with fellow and attending. Additional Equipment Requests [facility] 08-06-2022 Hospital Discharge instructions Patient [...] With:Mekhi VERGARA Address: [facility] [address] [place] [address]- Business (1) When: Unknown Comments:Office will call to schedule follow up [facility] 08-05-2022 Note [place] - [facility] Subjective Ben Guadalupe is a 86 [...] February 2022 he was admitted to the [facility] with palpitations and chest pain. He [...] reaction(s): vomiting Tizani (more content not included)... [facility] 08-05-2022 Note Patient here to disc Gap Designss Watchman device per Maritza Kirkland CNP. He does not want to take AC for afib. Denies chest pain and SOB. Denies increase in LE edema. Review of Systems Constitutional: Positive for malaise/fatigue. Cardiovascular: Positive for leg swelling. Musculoskeletal: Positive for arthritis, back pain, joint pain, muscle weakness and myalgias. Neurological: Positive for weakness. All other systems reviewed and are negative. [facility] 07-30-2022 Note CONSULTATION CONSULTATION DATE: 07/30/2022 CHIEF [...] the patient's pain. The patient currently takes [place] 5/325 on a q.i.d. basis, Lyrica 75 [...] oriented x3, engaging with very good short term/penitentiary memory. IMPRESSION: Current working diagnosis on the [...] like to maintain. CC: Dr. Elliott [facility] 06-25-2022 Note CONSULTATION CONSULTATION DATE: 06/25/2022 [...] patient currently takes Lyrica 75 mg b.i.d., [place] 5/325 q.i.d., baclofen 10 mg q.h.s. The [...] like to proceed. CC: Dr. Elliott [facility] 06-24-2022 Note Hypertension is stab le -continue amlodipine, cardizem, metoprolol, losartan, lasix, farxiga [facility] 06-24-2022 Note -[id number]: 5 -did not start anticoagulation and does [...] of stroke discussed with granddaughter and patient [facility] 06-24-2022 Note [place] Note [facility] Reason for follow up: a-fib, htn HPI: [...] was made aware of stroke risks per [id number] score of 5 (age, hypertension, diabetes, vascular [...] February 2022 he was admitted to the [facility] with palpitations and chest pain. He [...] MCG (1000 UT) (more content not included)... [facility] 06-24-2022 Note Patient here for 1 m [...] All other systems reviewed and are negative. [facility] 05-27-2022 Note [place] [facility] [facility] Subjective Ben Guadalupe is a 86 y.o. year old male patient being seen for 2 mo follow up stress test. He is not anticoagulated due to anemia and bleeding hemorrhoids. He had hem[facility]rho[facility] last week at [facility]. Denies chest pain and SOB. Patient [...] February 2022 he was admitted to the [facility] with palpitations and chest pain. He [...] (Cardizem CD) 18 (more content not included)... [facility] 05-17-2022 Note HNO ID: [id number] Author: Minesh Levy APRN.LATHE SCALPER OPERATOR Service: ? Author Type: Nurse Wedding Makeup Artist Type: Anesthesia Procedure Notes Filed: 05/17/2022 11:19 [...] Orientation: Left Location: Hand SIGNATURE: Minesh Levy APRN.LATHE SCALPER OPERATOR PATIENT NAME: Ben Guadalupe DATE: May 17, 2022 TIME: 11:17 AM CSN: [id number] [facility] 05-17-2022 Note HNO ID: [id number] Author: Minesh Levy APRN.LATHE SCALPER OPERATOR Service: ? Author Type: Nurse Wedding Makeup Artist Type: Anesthesia Procedure Notes Filed: 05/17/2022 10:39 AM Note Text: ANESTHESIOLOGY PROCEDURE NOTE Airway General Information Procedure Start Time/Medication Administration: 05/17/2022 10:11 AM Patient location during procedure: OR Timeout Performed Pre-procedure: timeout performed Consent Obtained: Yes Patient identity confirmed: arm band and patient Staffing Anesthesiologist: Kandice Guadalupe MD LATHE SCALPER OPERATOR: Minesh Levy APRN.LATHE SCALPER OPERATOR Performed by: IGNACIO Indications and Patient Condition Indications for airway management: anesthesia Preoxygenated: yes anesthesia circuit Patient position: sniffing Method: asleep Difficult Mask: No Final Airway Details Final airway type: supraglottic airway Number of attempts at approach: 1 Final Supraglottic Airway: i-gel Size 5 Seal Adequate: yes Failed airway: no Unrecognized esophageal intubation: no Airway not difficult SIGNATURE: Minesh Levy APRN.LATHE SCALPER OPERATOR PATIENT NAME: Ben Guadalupe DATE: May 17, 2022 TIME: 10:38 AM CSN: [id number] [facility] 05-17-2022 Note HNO ID: [id number] Author: Shruthi Valdez RN Service: Nursing Author Type: Registered Nurse Type: Nursing Progress Note Filed: 05/17/2022 10:04 AM Note Text: Other: Dr. Ruiz and Dr. Guadalupe aware of K+ of 3.0. Awaiting orders. [facility] 05-16-2022 Miscellaneous Notes Attempt to call patient to review prep for surgery tomorrow, no answer, no voicemail available. documented in this encounter [facility] 05-10-2022 Note HNO ID: [id number] Author: Donna Arriaga RN Service: ? Author [...] Time spent on patient education: 20 minutes [facility] 05-10-2022 History of Present illness Narrative EUA, ColonoscopyCOLON & RECTAL SURGERY Nursing Education Visit Ben Esvin Juan Francisco 1935 Surgeon: Tristin Wilcox Reason for Education: [...] education: 20 minutes documented in this encounter [facility] 05-10-2022 Note Education (KADIE) BEN GUADALUPE ([id number]) 1935 M Date Time Provider Department 05/10/22 [...] Encounter Status:Closed by DONNA ARRIAGA on 05/10/22 [facility] 05-10-2022 History and physical note HISTORY AND [...] Metoprolol and diltiazem +CAD- s/p cardiac cath 2013, on ASA, BB and statin +HTN- controlled with diltiazem 180 mg daily, losartan 25 mg daily, metoprolol tartrate 25 mg twice daily +h/o DVT LLE +chronic LE edema Cards: Dr. Danielle [facility] 03/19/22 Denies any history of PA, CHF,PE, arrhythmias or murmurs. Denies CP, SOB, [...] 442 QTC Calculation (Bazett) 497 Calculated P Applegate 37 Calculated R Applegate 64 Calculated T Applegate -10 Impression NORMAL SINUS RHYTHM COMPLETE RIGHT BUNDLE BRANCH BLOCK INFERIOR T WAVE ABNORMALITY ABNORMAL ECG No results found for this or any previous visit (from the past 89797 hour(s)). OSH Cardiovascular testing ABIs 10/11/2021: Normal [...] Shashi FITCH 03/19/22 PAF (paroxysmal atrial fibrillation) ([facility]) Assessment: admitted to hospital 02/2022 with chest [...] pepcid Chronic kidney disease, stage 4 (severe) ([facility]) Assessment: h/o DAVID 02/2022 during admission for blood loss and PAF -pending BMP today, no recent labs Calculus of kidney Assessment: stable, kidney stones Hypothyroidism unspecified Assessment: stable on Synthroid Diabetes mellitus ([facility]) Assessment: controlled with Farxiga 10 mg daily [...] TIME: 1:37 PM documented in this encounter [facility] 05-09-2022 Instructions Afia Downing PA-C - 05/09/2022 12:36 PM EDT PATIENT PREOPERATIVE INSTRUCTIONS Lorraine Wilcox* has scheduled you for your procedure at this surgery center: [facility] [place] [place] Scheduling Office: [phone] --[address] [place] [address]. Please read below carefully for your personalized [...] or other anticoagulants without consulting with your manager academic or prescribing physician. - Stop Vitamin E, [...] Procedures: - YOU MUST HAVE A RESPONSIBLE SILO WORKER TAKE YOU HOME. A VENTILATOR SPECIALIST OR VIRTUAL ASSISTANT CANNOT BE MADE A RESPONSIBLE SILO WORKER. - We recommend that a responsible person [...] call the Friday before. Your surgeon s greige goods marker will tell you what time to call the office. - If you have not reached the departmental greige goods marker by 5 P.M., call [phone] after 5 P.M. the day before your surgery. Please be aware that emergency situations arise, which may delay or change your surgical time. If this happens, we will notify you as soon as possible and regret any inconvenience. If you already have an Advance Directive, please fax a copy to [phone] or email to for it to be [...] Afia Downing PA-C documented in this encounter [facility] 04-25-2022 Miscellaneous Notes The Patient's granddaughter ( Milly Guadalupe) is calling to confirm surgery date, get all testing scheduled for her grandfather. Please call her at : [phone] at 11:30 AM or later, as she is at an appointment now. Thank you. documented in this encounter [facility] 04-24-2022 Miscellaneous Notes SPECIALTY CARE COORDINATION FOLLOW-UP NOTE Message left Pt to call in to discuss setting up surgery Offered 05/17/22 surgical date Any pre-operative business date within 30 days of surgical date Call back number left Signature Marika Zuñiga RN April 24, 2022 documented in this encounter [facility] 04-22-2022 Hospital Discharge instructions Patient Education 04/22/2022 [...] who: Are older than age 65. Are -Togolese. Are obese. Have a family history of [...] cells. Follow these instructions at home: Take fwxm-dfo-qbufinb and prescription medicines only as told by [...] 06/23/2006 Document Revised: 06/05/2018 Document Reviewed: 03/03/2017 Save On Medical Patient Education 2020 [employer]. Follow Up Care 02/25/2022 17:01:47 With:URSULA WORKMAN, Mekhi Oh, URL Address: [facility] [address] [place] [address]- [phone] When:10/21/2022 [facility] 04-17-2022 History and physical note COLORECTAL SURGERY [...] closed Resting tone: NORMAL Squeeze tone: NORMAL Office Worker present: Yes Anoscopy: The patient was placed [...] treatment plan: high documented in this encounter [facility] 04-11-2022 Note CONSULTATION PROCEDURE DATE: 04/11/2022 PREOPERATIVE [...] be followed up in the office. [facility] 04-11-2022 Note CONSULTATION CONSULTATION DATE: 04/11/2022 [...] shoulders to his hands and is losing business operations manager on objects with his hands. His lower back feels tight, achy and spasmodic. He is having increasing bilateral lower extremity pain. Activities that aggravate his pain are standing, walking, lying, sitting and any physical activity. The use of medication, in addition to heat, decreases his pain. Medications include Lyrica 75 mg b.i.d., baclofen 10 mg q.h.s., [place] 5/325 q.i. d. and a multivitamin regimen. [...] Lyrica and other medications well with no KIER DRIER side effects. Patient agrees with the plan of care, will be followed up post procedure. [facility] 03-18-2022 Note Subjective Ben Guadalupe is a 86 y.o. male. Chief Complaint: Atrial Fibrillation, Coronary Artery Disease, Hypertension, and left ventricular hypertrophy Nursing note: Patient here for follow up [facility]. He was seen as inpatient consult by [...] coronary artery disease by cardiac catheterization in 2012, hypertension. He has history of DVT in [...] February 2022 he was admitted to the [facility] with palpitations and chest pain. He [...] Hallucinations Tramadol Hallucination (more content not included)... [facility] 02-14-2022 Note CONSULTATION PROCEDURE DATE: 02/14/2022 PREOPERATIVE [...] be followed up in the clinic. [facility] 02-14-2022 Note CONSULTATION CONSULTATION DATE: 02/14/2022 [...] and he was in obvious distress. His [place] was increased to 5/325 q.i.d. at that time, which has been helpful. The patient states since the introduction of the Lyrica to his regimen that his [place] is back down to t.i.d. The intent [...] of this medication in addition to the [place]. Patient agrees with the plan of care and will be seen in eight weeks time unless otherwise indicated. [facility] 01-10-2022 Note CONSULTATION CONSULTATION DATE: 01/10/2022 [...] at home. Medication includes at this time [place] 5/325 t.i.d., baclofen 10 mg daily and [...] the patient and noting his distress, his [place] 5/325 will be increased to four times a day. He will be started on Lyrica 50 mg b.i.d. 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 He will receive bilateral lumbar trigger point injections in the office today as well. He will return to the clinic in six weeks' time to re-evaluate his pain pattern and efficacy of the Lyrica. Patient does agree. [facility] 01-10-2022 Note CONSULTATION PROCEDURE DATE: 01/30/2022 [...] procedure well with no overt complications. [facility] 11-29-2021 Note CONSULTATION PROCEDURE DATE: 11/29/2021 [...] will be followed up in the clinic. [facility] Signed and Approved by: CALVIN MOREJON . 12/06/2021 16:01:00 [facility] 11-29-2021 Note CONSULTATION CONSULTATION DATE: 11/29/2021 [...] lower lumbar area. It is aggravated by early childhood director and evening hours, standing, walking and physical activity. He does use heat daily which is helpful, in addition to Vicks VapoRub. Medications include baclofen 10 mg q.h.s., [place] 5/325 t.i.d. and a multivitamin regimen. The [...] degenerative disc. PLAN: A refill for his [place] 5/325 t.i.d. will be sent to the pharmacy. Patient will receive bilateral lumbar trigger point injections, which he agrees to receive here in the clinic. We will maintain his medications at the current regimen. He is to increase the amount of frequency of heat application and menthol heat rub. We will see the patient in six weeks' time unless otherwise indicated. [facility] Signed and Approved by: CALVIN MOREJON . 12/06/2021 16:01:00 [facility] 11-21-2021 Note OPERATIVE NOTE OPERATION DATE: [...] in good condition. CC: Shaikh Lexi M.D. [facility] Signed and Approved by: DR YENNI STANLEY . 11/28/2021 10:45:00 [facility] 10-09-2021 Hospital Discharge instructions Patient Education [...] 03/19/2005 Document Revised: 10/08/2018 Document Reviewed: 10/08/2018 Save On Medical Patient Education 2020 [employer]. Follow Up Care 10/01/2021 07:48:54 With:Iraida James CNP Address: When:3 months only if needed [facility] Evaluation + Plan note Future Appointments Appointment Date:10/16/2021 02:20:00 PM Scheduled Provider: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 MD Location:[facility] Appointment Type:[facility] Evaluation + Plan note Future Appointments Appointment Date:04/30/2022 01:40:00 PM Scheduled Provider: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 MD Location:[facility] Appointment Type:[facility] Appointment Date:10/21/2022 03:15:00 PM Scheduled Provider:Mekhi VERGARA MD Location[facility] Appointment Type:URO Office Visit Diagnostic Tests PendingPSA Total 04/22/22 [facility] Evaluation + Plan note Future Appointments Appointment Date:10/21/2022 03:15:00 PM Scheduled Provider:Mekhi VERGARA MD [facility] Appointment Type:URO Office Visit Diagnostic Tests PendingUroVysion Fish and Urine Cyto ([facility]) 08/06/22 [facility] Evaluation + Plan note Future Appointments Appointment Date:06/23/2023 03:00:00 PM Scheduled Provider:Mekhi VERGARA MD [facility] Appointment Type:URO Office Visit Diagnostic Tests PendingPSA Total 12/23/22 [facility] Evaluation note Diagnosis Fourth degree hemorrhoids- Primary Unspecified hemorrhoids with other complication documented in this encounter [facility] note* Diagnosis Pre-op evaluation- Primary Preoperative examination, unspecified Type 2 diabetes mellitus without complication, without long-term current use of insulin ([facility]) Radiculopathy, cervical region Brachial neuritis or radiculitis nos Dementia in other diseases classified elsewhere, unspecified severity, without behavioral disturbance, psychotic disturbance, mood disturbance, and anxiety ([facility]) Intracranial hemorrhage (HCC) Unspecified intracranial hemorrhage Essential (primary) hypertension Unspecified essential hypertension Sleep apnea, unspecified type Chronic obstructive pulmonary disease, unspecified COPD type ([facility]) Arteriosclerosis of coronary artery Coronary atherosclerosis of unspecified type of vessel, nikolai or graft PAF (paroxysmal atrial fibrillation) (HCC) Atrial fibrillation History of DVT (deep vein thrombosis) Personal history of venous thrombosis and embolism Gastroesophageal reflux disease with esophagitis, unspecified whether hemorrhage Chronic kidney disease, stage 4 (severe) ([facility]) Calculus of kidney Hypothyroidism [...] complication documented in this encounter [facility] course Narrative No data available for this section [facility] Discharge instructions No data available for this section General Surgery [facility] note No data available for this section [facility] Summary Purpose Family History No Family History Records FoundNo Family History Records FoundNo Family History Records FoundNo Family History Records FoundNo Family History Records FoundNo Family History Records Found No data available for this section No data available for this section No Family History Records Found Advance Directives No [...] and content) DATE CREATED AUTHOR 12/31/2017 [facility] DATE CREATED AUTHOR AUTHOR'S ORGANIZ ATION 05/31/2022 [facility] DATE CREATED AUTHOR AUTHOR'S ORGANIZ ATION 11/02/2022 [facility] DATE CREATED AUTHOR AUTHOR'S ORGANIZ ATION 03/08/2023 [facility] DATE CREATED AUTHOR AUTHOR'S ORGANIZ ATION 06/20/2023 [facility] DATE CREATED AUTHOR AUTHOR'S ORGANIZ ATION 07/29/2023 [facility] DATE CREATED AUTHOR AUTHOR'S ORGANIZ ATION 08/21/2023 [facility] Source Comments (unrecognize d section and content) In the event this informatio n is protected by the Federal Confidentiality of Alcohol and Drug Abuse Patient Records regulations: The Federal rules restrict any use of the information to criminally investigate or prosecute any alcohol or drug abuse patient.[facility] the event this information is protected by the Federal Confidentiality of Alcohol and Drug Abuse Patient Records regulations: The Federal rules restrict any use of the information to criminally investigate or prosecute any alcohol or drug abuse patient.[facility] the event this information is protected by the Federal Confidentiality of Alcohol and Drug Abuse Patient Records regulations: The Federal rules restrict any use of the information to criminally investigate or prosecute any alcohol or drug abuse patient.[facility] the event this information is protected by the Federal Confidentiality of Alcohol and Drug Abuse Patient Records regulations: The Federal rules restrict any use of the information to criminally investigate or prosecute any alcohol or drug abuse patient.[facility] the event this information is protected by the Federal Confidentiality of Alcohol and Drug Abuse Patient Records regulations: The Federal rules restrict any use of the information to criminally investigate or prosecute any alcohol or drug abuse patient.[facility] the event this information is protected by the Federal Confidentiality of Alcohol and Drug Abuse Patient Records regulations: The Federal rules restrict any use of the information to criminally investigate or prosecute any alcohol or drug abuse patient.[facility] Reason for Visit (unrecogniz ed section and content) 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 Comments 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 Reason Comments Appointment Reason Comments Pre-Op Visit Reason Comments Patient Education Care Teams (unrecognized sec tion and content) Dietary Supervisor Relationship Specialty Start Date End Date Franky Veronica Esvin (Fax) PCP - General Internal Medicine 06/16/12 Dietary Supervisor Relationship Specialty Start Date End Date Franky Veronica Esvin (Fax) PCP - General Internal Medicine 06/16/12 Dietary Supervisor Relationship Specialty Start Date End Date Franky Veronica (Fax) PCP - General Internal Medicine 06/16/12 Dietary Supervisor Relationship Specialty Start Date End Date Veronica Franky A (Fax) PCP - General Internal Medicine 06/16/12 Dietary Supervisor Relationship Specialty Start Date End Date Franky Veronica Esvni (Fax) PCP - General Internal Medicine 06/16/12 [...] BE BASED ON THE PRIMARY CLINICAL RECORDS. [facility] [email or web address] [facility]. provides no warranty or guarantee of the accuracy or completeness of information in this document.
--- NOTE | 2023-08-21 21:49 | ECG_ITS ---
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
--- NOTE | 2023-08-21 21:52 | XR_ITS ---
The [address] [address] Patient Name: GUILLERMINA GUADALUPE MRN: [id number] date: 1935 Sex: M Assigned Patient Location: ER Current Patient Location: ER Accession/Order Number: [id number] Exam Date: 08/21/2023 22:30 Report Date: 08/21/2023 22:53 At the request of: ANDREA MARKER Procedure: XR chest 1V EXAMINATION: XR chest 1V, , 08/21/2023 10:30 PM EST INDICATION: weakness HISTORY: Ordering Provider Reason for Exam: weakness Technologist Note: Additional: COMPARISON: XR chest 1V Study Date: 06/14/2023 TECHNIQUE: Chest x-ray: One view. FINDINGS: No pneumothorax, pleural effusion or focal airspace consolidation. Heart is normal in size. Bony thorax is unremarkable. XR/XR chest 1V IMPRESSION: No acute cardiopulmonary process. Electronically authenticated by: TUAN AVILA Date: 08/21/2023 22:53
--- NOTE | 2023-08-21 21:54 | ED.NAVMDI1 ---
HPI - Nausea/Vomiting/Diarrhea General Chief complaint: Nausea/Vomiting/Diarrhea Stated complaint: FLU SYMPTOMS Time Seen by Provider: 08/21/23 21:39 Source: patient and family Mode of arrival: Wheelchair History of Present Illness HPI Narrative: This 87-year-old male is brought emergency department by his son for evaluation of 2 days of nausea, vomiting, diarrhea and generalized weakness. The patient's son states that his father is too weak to get up, he had to help him into the car and he required a wheelchair to get from the car into the emergency room. The patient has had chills for the past 2 days with multiple episodes of vomiting and one explosive episode of diarrhea. He complains of some left lower quadrant abdominal discomfort. He has not had any hematemesis and has not noticed any bloody stools. He denies any chest pain. He has mild shortness of breath. He has chronic low back pain with lumbar stenosis. He complains of low back pain which is his typical low back pain and no mid to upper back pain. He has not had any dizziness or syncope. He has marked lower extremity swelling of both legs and feet. His right foot is erythematous today which is new. He does have a history of diabetes. Related Data Home Medications Medication Instructions Recorded Confirmed albuterol sulfate 90 mcg/actuation 1 inh inhalation Q4H PRN shortness 12/27/22 07/18/23 aerosol inhaler (ProAir HFA) of breath or wheezing allopurinol 300 mg tablet 300 mg PO .QD 12/27/22 07/18/23 cholecalciferol (vitamin D3) 25 50 mcg PO DAILY 12/27/22 07/18/23 mcg (1,000 unit) capsule (Vitamin D3) levothyroxine 50 mcg tablet 50 mcg PO .QD 12/27/22 07/18/23 nitroglycerin 0.4 mg sublingual 0.4 mg sublingual Q5M PRN chest 12/27/22 07/18/23 tablet (Nitrostat) pain potassium chloride 20 mEq 20 meq PO DAILY 12/27/22 07/18/23 tablet,extended release (K-Tab) aspirin 81 mg capsule 81 mg PO DAILY 01/09/23 07/18/23 diltiazem HCl 180 mg 180 mg PO DAILY 01/09/23 07/18/23 capsule,extended release 24 hr donepezil 10 mg tablet (Aricept) 10 mg PO DAILY 01/09/23 07/18/23 dorzolamide-timolol (PF) 2 %-0.5 % 1 drp ophthalmic (eye) BID 01/09/23 07/18/23 eye drops in a dropperette famotidine 20 mg tablet 20 mg PO DAILY 01/09/23 07/18/23 ferrous sulfate 325 mg (65 mg 325 mg PO .every other day 01/09/23 07/18/23 iron) tablet fluticasone propionate 50 2 spray intranasal DAILY PRN nasal 01/09/23 07/18/23 mcg/actuation nasal congestion spray,suspension (Flonase Allergy Relief) furosemide 20 mg tablet 40 mg PO QAM 01/09/23 07/18/23 losartan 100 mg tablet 50 mg PO DAILY 01/09/23 07/18/23 magnesium oxide,aspartate,citr 400 mg PO BEDTIME 01/09/23 07/18/23 metoprolol tartrate 25 mg tablet 25 mg PO BID 01/09/23 07/18/23 vcghsovz-uv-sugdg 300 mcg-K 60 1 tab PO DAILY 01/09/23 07/18/23 mcg-lycop 600 mcg-lutein 300 mcg tablet (Centrum Silver Men) psyllium husk 0.4 gram capsule 0.4 g PO DAILY 01/09/23 07/18/23 (Metamucil) tamsulosin 0.4 mg capsule (Flomax) 0.4 mg PO DAILY 01/09/23 07/18/23 atorvastatin 20 mg tablet 40 mg PO DAILY 01/10/23 07/18/23 baclofen 10 mg tablet 10 mg PO .qhs muscle spasm 01/10/23 07/18/23 pregabalin 150 mg capsule (Lyrica) 75 mg PO BEDTIME 06/10/23 07/18/23 pregabalin 75 mg capsule (Lyrica) 75 mg PO DAILY 06/10/23 07/18/23 Lactobacillus rhamnosus GG 10 1 cap PO DAILY 07/18/23 07/18/23 billion cell capsule (Culturelle) dapagliflozin propanediol 10 mg 10 mg PO DAILY 07/18/23 07/18/23 tablet (Farxiga) escitalopram oxalate 10 mg tablet 10 mg PO .am 07/18/23 07/18/23 glipizide 5 mg tablet 5 mg PO BID 07/18/23 07/18/23 multivitamin 1 tab PO BID 07/18/23 07/18/23 Previous Rx's Medication Instructions Recorded ondansetron 4 mg disintegrating 4 mg PO Q6H PRN nausea and 02/05/23 tablet vomiting #12 tabs hydrocodone 5 mg-acetaminophen 325 1 tab PO QID PRN pain #120 tabs 06/26/23 mg tablet Allergies Allergy/AdvReac Type Severity Reaction Status Date / Time tizanidine [From Zanaflex] Allergy Unknown Verified 07/18/23 19:12 acetaminophen [From Percocet] AdvReac Mild Vomiting Verified 07/18/23 19:12 cyclobenzaprine AdvReac Mild Hallucinati Verified 07/18/23 19:12 [From Flexeril] ng oxycodone [From Percocet] AdvReac Mild Vomiting Verified 07/18/23 19:12 tramadol AdvReac Mild Vomiting Verified 07/18/23 19:12 Review of Systems ROS Status of ROS 10 or more systems reviewed and unremarkable except as noted in history and below [facility] Medical History (Updated 08/22/23 @ 00:36 by Heaven Ford MD) Ambulatory dysfunction ?R26.2 - Difficulty in walking, not elsewhere classified (ICD-10) HLD (hyperlipidemia) ?E78.5 - Hyperlipidemia, unspecified (ICD-10) Depression with anxiety ?F41.8 - Other specified anxiety disorders (ICD-10) Acute hypokalemia ?E87.6 - Hypokalemia (ICD-10) Unable to ambulate ?R26.2 - Difficulty in walking, not elsewhere classified (ICD-10) Spinal stenosis ?M48.00 - Spinal stenosis, site unspecified (ICD-10) Intractable low back pain ?M54.59 - Other low back pain (ICD-10) Chronic diastolic heart failure ?I50.32 - Chronic diastolic (congestive) heart failure (ICD-10) Type 2 diabetes mellitus ?E11.9 - Type 2 diabetes mellitus without complications (ICD-10) Afib ?I48.91 - Unspecified atrial fibrillation (ICD-10) CKD stage 3 due to type 2 diabetes mellitus ?E11.22 - Type 2 diabetes mellitus with diabetic chronic kidney disease (ICD-10) ?N18.30 - Chronic kidney disease, stage 3 unspecified (ICD-10) Lumbar stenosis with neurogenic claudication ?M48.062 - Spinal stenosis, lumbar region with neurogenic claudication (ICD-10) Osteoarthritis of right knee ?M17.11 - Unilateral primary osteoarthritis, right knee (ICD-10) Chronic pain syndrome ?G89.4 - Chronic pain syndrome (ICD-10) Chronic prescription opiate use ?Z79.891 - hearing aid dispenser (current) use of opiate analgesic (ICD-10) Osteoarthritis, 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 - Primary osteoarthritis, unspecified shoulder (ICD-10) Right shoulder pain ?M25.511 - Pain in right shoulder (ICD-10) Lumbar radiculopathy ?M54.16 - Radiculopathy, lumbar region (ICD-10) Abdominal pain ?R10.9 - Unspecified abdominal pain (ICD-10) Nausea & vomiting ?R11.2 - Nausea with vomiting, unspecified (ICD-10) Esophagitis ?K20.90 - Esophagitis, unspecified without bleeding (ICD-10) Muscle spasm ?M62.838 - Other muscle spasm (ICD-10) Lumbar stenosis ?M48.061 - Spinal stenosis, lumbar region without neurogenic claudication (ICD-10) Lumbar spondylosis ?M47.816 - Spondylosis without myelopathy or radiculopathy, lumbar region (ICD-10) Retraction of blood clot ?I74.9 - Embolism and thrombosis of unspecified artery (ICD-10) Inguinal hernia ?K40.90 - Unilateral inguinal hernia, without obstruction or gangrene, not specified as recurrent (ICD-10) Presence of Watchman left atrial appendage closure device ?Z95.818 - Presence of other cardiac implants and grafts (ICD-10) Low back pain ?M54.50 - Low back pain, unspecified (ICD-10) Rheumatoid arthritis ?M06.9 - Rheumatoid arthritis, unspecified (ICD-10) Osteoarthritis ?M19.90 - Unspecified osteoarthritis, unspecified site (ICD-10) Gout ?M10.9 - Gout, unspecified (ICD-10) DVT (deep venous thrombosis) ?I82.409 - Acute embolism and thrombosis of unspecified deep veins of unspecified lower extremity (ICD-10) Bladder cancer ?C67.9 - Malignant neoplasm of bladder, unspecified (ICD-10) Hearing deficit ?H91.90 - Unspecified hearing loss, unspecified ear (ICD-10) IBS (irritable bowel syndrome) ?K58.9 - Irritable bowel syndrome without diarrhea (ICD-10) Acid reflux ?K21.9 - Gastro-esophageal reflux disease without esophagitis (ICD-10) Hypothyroid ?E03.9 - Hypothyroidism, unspecified (ICD-10) Diabetes 1.5, managed as type 2 ?E13.9 - Other specified diabetes mellitus without complications (ICD-10) Kidney stone ?N20.0 - Calculus of kidney (ICD-10) Prostate cancer ?C61 - Malignant neoplasm of prostate (ICD-10) CPAP (continuous positive airway pressure) dependence ?Z99.89 - Dependence on other enabling machines and devices (ICD-10) Sleep apnea ?G47.30 - Sleep apnea, unspecified (ICD-10) Hypercholesterolemia ?E78.00 - Pure hypercholesterolemia, unspecified (ICD-10) Hypertension ?I10 - Essential (primary) hypertension (ICD-10) Surgical History H/O transurethral resection of bladder tumor (TURBT) ?Z98.890 - Other specified postprocedural states (ICD-10) ?Z86.03 - Personal history of neoplasm of uncertain behavior (ICD-10) H/O arthroscopy of knee ?Z98.890 - Other specified postprocedural states (ICD-10) S/P tonsillectomy and adenoidectomy ?Z90.89 - Acquired absence of other organs (ICD-10) Previous back surgery ?Z98.890 - Other specified postprocedural states (ICD-10) H/O neck surgery ?Z98.890 - Other specified postprocedural states (ICD-10) Family History Other Family history of diabetes mellitus Social History (Updated 07/18/23 @ 22:27 by Betsy Rojo) Within the past year, how often did you have a drink containing alcohol: never Score interpretation: A score less than 4 is consistent with normal alcohol consumption. Smoking status: Never smoker Non-prescribed substance use: denies use Previous occupational history: retired Known occupational exposures/hazards: No Highest level of school completed/degree received: high school graduate Are you now , , , , never or living with a partner: In a typical week, how many times do you talk on the telephone with family, friends, or neighbors: 3 or more times per week How often do you get together with friends or relatives: 3 or more times per week How often do you attend samaritan or scientologist services: never Do you belong to any clubs or organizations such as samaritan groups unions, fraternal or athletic groups, or school groups: no Total score: 1 Score interpretation: A score of less than or equal to 1 indicates the most socially isolated. Little interest or pleasure in doing things: not at all Feeling down, depressed, or hopeless: not at all Feel stressed/tense/nervous/anxious/difficulty sleeping: not at all Do you think of yourself as: straight/heterosexual Gender Identity: male Exam Narrative Exam Narrative: Nurses note and vital signs reviewed and patient is not hypoxic. Vital signs are reviewed, the patient is afebrile with normal pulse, blood pressure is elevated at 174/97 General: Alert, mildly ill-appearing elderly male, no respiratory distress, no active vomiting Skin: Warm, dry, no pallor noted. There is no rash noted. Head: Normocephalic, atraumatic Eye: Normal conjunctiva, no drainage, EOMI. PERRL. Vision is grossly intact Ears, Nose, Mouth, and Throat: oral mucosa is dry Cardiovascular: Regular Rate and Rhythm S1S2, pulses are brisk and equal bilaterally Respiratory: Patient is in no distress, no accessory muscle use, lungs are clear to auscultation, no wheezing, rales or rhonchi Back: no reproducible tenderness, pt has pain in sacral and lower lumbar region GI: Mild hyperactive bowel sounds, no pulsatile masses appreciated, mild tenderness in the left lower quadrant Musculoskeletal: 3-4+ pitting edema of the lower extremities bilaterally, the right foot is erythematous and appears mildly bruised, feet are warm and sensate, I am unable to appreciate dorsalis pedis pulses due to marked edema of the lower extremities Neurological: A&O x4, normal speech, No focal deficits, generalized weakness Psychiatric: Cooperative Constitutional Vital Signs, click to edit/add: Last Vital Signs Temp 98.5 F 08/21/23 21:33 Pulse 80 08/22/23 00:20 Resp 12 08/22/23 00:20 BP 110/64 08/22/23 00:01 Pulse Ox 94 L 08/22/23 00:10 O2 Del Method Room Air 08/21/23 21:33 Course Vital Signs Vital signs: Vital Signs Temperature 98.5 F 08/21/23 21:33 Pulse Rate 72 08/21/23 21:33 Respiratory Rate 20 08/21/23 21:33 Blood Pressure 174/97 H 08/21/23 21:33 Pulse Oximetry 97 08/21/23 21:33 Oxygen Delivery Method Room Air 08/21/23 21:33 Temperature 98.5 F 08/21/23 21:33 Pulse Rate 80 08/22/23 00:20 Respiratory Rate 12 08/22/23 00:20 Blood Pressure 110/64 08/22/23 00:01 Pulse Oximetry 94 L 08/22/23 00:10 Oxygen Delivery Method Room Air 08/21/23 21:33 MDM - Nausea/Vomiting/Diarrhea MDM Narrative Medical decision making narrative: This 87-year-old male who lives at home and has history of diabetes and peripheral edema is present emergency department by his son for evaluation of 2 days of nausea vomiting and one episode of diarrhea. The patient states he has not been able to keep anything down all day. He cannot count how many times he has vomited. He is having some very minimal left lower quadrant tenderness. He does not have a fever. He denies any chest pain but complains of mild shortness of breath which she thinks is related to his nausea. EKG doesn't upon arrival is a sinus rhythm with a right bundle-branch block. An IV was placed and he was medicated with IV fluids, Zofran and Pepcid. He has chronic low back pain with lumbar stenosis and was given 4 mg of IV morphine for his low back pain. During my physical exam I discovered that his right foot is erythematous and appears bruised and swollen. He does have pitting edema in both lower extremities which is not new. Chest x-ray was negative for acute findings. He has a normal white count and hemoglobin. Lactic acid is normal. His potassium was low at 2.9 and IV potassium was replaced. He was given mag ox 4 magnesium level of 1.7. He has not had any additional nausea vomiting or diarrheal on the emergency department. He is very weak according to his son and is not amenable to being discharged home and will be admitted for observation. He was medicated in emergency department with IV Zosyn for the right foot cellulitis. Case is discussed with the hospice the patient accepted for admission to [facility]. Respiratory panel was negative. 2 sets of blood cultures are pending at this time. Medical Records Medical records narrative: The [address] [address] XRay Report Signed Patient: GUILLERMINA GUADALUPE MR#: [id number] : 1935 Acct:[id number] Age/Sex: 87 / M ADM Date: 08/21/23 Loc: ER Attending Dr: Ordering Physician: Heaven Ford Date of Service: 08/21/23 Procedure(s): XR chest 1V Accession Number(s): [id number] cc: Shaikh Eusebia Elliott; Heaven Ford~ The [address] [address] Patient Name: GUILLERMINA GUADALUPE MRN: [id number] date: 1935 Sex: M Assigned Patient Location: ER Current Patient Location: ER Accession/Order Number: [id number] Exam Date: 08/21/2023 22:30 Report Date: 08/21/2023 22:53 At the request of: HEAVEN FORD Procedure: XR chest 1V EXAMINATION: XR chest 1V, , 08/21/2023 10:30 PM EST INDICATION: weakness HISTORY: Ordering Provider Reason for Exam: weakness Technologist Note: Additional: COMPARISON: XR chest 1V Study Date: 06/14/2023 TECHNIQUE: Chest x-ray: One view. FINDINGS: No pneumothorax, pleural effusion or focal airspace consolidation. Heart is normal in size. Bony thorax is unremarkable. XR/XR chest 1V IMPRESSION: No acute cardiopulmonary process. Electronically authenticated by: TUAN AVILA Date: 08/21/2023 22:53 Lab Data Labs: Lab Results 08/21/23 08/21/23 Range/Units 21:40 22:15 WBC 5.8 (4.0-11.0) 10^3/uL RBC 4.59 L (4.70-6.10) 10^6/uL Hgb 14.5 (14.0-18.0) g/dL Hct 43.0 (42.0-54.0) % MCV 93.7 (80.0-94.0) fL MCH 31.6 (25.9-34.0) pg MCHC 33.7 (29.9-35.2) g/dL RDW 13.0 (11.0-15.0) % Plt Count 147 L (150-450) 10^3/uL MPV 10.2 (9.5-13.5) fL Neut % (Auto) 73.7 (43.0-75.0) % Lymph % (Auto) 16.5 L (20.5-60.0) % [place] % (Auto) 9.0 (1.7-12.0) % Eos % (Auto) 0.3 L (0.9-7.0) % Baso % (Auto) 0.3 (0.2-2.0) % Neut # (Auto) 4.3 (1.4-6.5) 10^3/uL Lymph # (Auto) 1.0 L (1.2-3.8) 10^3/uL [place] # (Auto) 0.5 (0.3-0.8) 10^3/uL Eos # (Auto) 0.0 (0.0-0.7) 10^3/uL Baso # (Auto) 0.0 (0.0-0.1) 10^3/uL Abs Immat Gran (auto) 0.01 (0.00-0.03) 10^3/uL Imm/Tot Granulo (auto) 0.2 (0.0-0.5) % Sodium 144 (136-145) mmol/L Potassium 2.9 L* (3.5-5.1) mmol/L Chloride 103 (98-107) mmol/L Carbon Dioxide 33.0 H (21.0-32.0) mmol/L Anion Gap 10.9 BUN 12.0 (7.0-18.0) mg/dL Creatinine 0.92 (0.70-1.30) mg/dL Est GFR ( Amer) >60 (>=60) Est GFR (Non-Af Amer) >60 (>=60) BUN/Creatinine Ratio 13.0 Glucose 148 H (74-106) mg/dL Lactate 1.8 (0.4-2.0) mmol/L Calcium 9.3 (8.5-10.1) mg/dL Total Bilirubin 0.8 (0.2-1.0) mg/dL AST 22 (15-37) U/L ALT 48 (16-63) U/L Alkaline Phosphatase 83 (46-116) U/L Troponin I High Sens 17.6 (4.0-76.1) pg/mL NT-Pro-B Natriuret Pep 816.0 (<=1800.0) pg/mL Total Protein 7.1 (6.4-8.2) g/dL Albumin 3.7 (3.4-5.0) g/dL Globulin 3.4 g/dL Albumin/Globulin Ratio 1.1 Lipase 26.0 (16.0-77.0) U/L Adenovirus (PCR) Not detected (NOT DETECTE) C. pneumoniae DNA (PCR) Not detected (NOT DETECTE) Coronavirus Type OC43 Not detected (NOT DETECTE) Coronavirus Type HKU1 Not detected (NOT DETECTE) Coronavirus Type 229E Not detected (NOT DETECTE) Coronavirus Type NL63 Not detected (NOT DETECTE) Human Metapneumovir PCR Not detected (NOT DETECTE) M. pneumoniae (PCR) Not detected (NOT DETECTE) Parainfluenza PCR Not detected (NOT DETECTE) Parainfluenza 2 (PCR) Not detected (NOT DETECTE) Parainfluenza 3 (PCR) Not detected (NOT DETECTE) Parainfluenza 4 (PCR) Not detected (NOT DETECTE) RSV (RT-PCR) Not detected (NOT DETECTE) Entero/Rhino (PCR) Not detected (NOT DETECTE) SARS-CoV-2 (PCR) Not detected (NOT DETECTE) Bordetella pertussis (PCR) Not detected (NOT DETECTE) B parapertussis DNA PCR Not detected (NOT DETECTE) Influenza Type A (PCR) Not detected (NOT DETECTE) Influenza Type B (PCR) Not detected (NOT DETECTE) ECG Data Attestation: I personally reviewed and interpreted this ECG as follows: (Sinus rhythm at 74 beats for minute, EKG interpretation limited by patient movement, right bundle-branch block, indeterminate axis, no acute ST segment elevation or T-wave inversion) Discharge Plan Discharge Chief Complaint: Nausea/Vomiting/Diarrhea Clinical Impression: Chronic low back pain, Gastroenteritis, Peripheral edema, Cellulitis of foot, right, Acute hypokalemia Patient Disposition: Admitted as Observation Time of Disposition Decision: 00:36 Condition: Fair Prescriptions / Home Meds: No Action donepezil [Aricept] 10 mg tablet 10 mg PO DAILY aspirin 81 mg capsule 81 mg PO DAILY Centrum Silver Men 300-600-300 mcg tablet 1 tab PO DAILY diltiazem HCl 180 mg capsule,extended release 24hr 180 mg PO DAILY dorzolamide-timolol (PF) 2-0.5 % dropperette 1 drp ophthalmic (eye) BID ferrous sulfate 325 mg (65 mg iron) tablet 325 mg PO .every other day famotidine 20 mg tablet 20 mg PO DAILY tamsulosin [Flomax] 0.4 mg capsule 0.4 mg PO DAILY fluticasone propionate [Flonase Allergy Relief] 50 mcg/actuation spray,suspension 2 spray intranasal DAILY PRN (Reason: nasal congestion) Rx Instructions: administer into each nostril furosemide 20 mg tablet 40 mg PO QAM losartan 100 mg tablet 50 mg PO DAILY magnesium oxide,aspartate,citr 400 mg magnesium capsule 400 mg PO BEDTIME psyllium husk [Metamucil] 0.4 gram capsule 0.4 g PO DAILY metoprolol tartrate 25 mg tablet 25 mg PO BID atorvastatin 20 mg tablet 40 mg PO DAILY baclofen 10 mg tablet 10 mg PO .qhs ondansetron 4 mg tablet,disintegrating 4 mg PO Q6H PRN (Reason: nausea and vomiting) Qty: 12 0RF hydrocodone-acetaminophen 5-325 mg tablet 1 tab PO QID PRN (Reason: pain) Qty: 120 0RF pregabalin [Lyrica] 75 mg capsule 75 mg PO DAILY Patient Comments: takes 1 in am and 2 in pm pregabalin [Lyrica] 150 mg capsule 75 mg PO BEDTIME Culturelle 10 billion cell capsule 1 cap PO DAILY multivitamin Tablet 1 tab PO BID glipizide 5 mg tablet 5 mg PO BID escitalopram oxalate 10 mg tablet 10 mg PO .am Farxiga 10 mg tablet 10 mg PO DAILY allopurinol 300 mg tablet 300 mg PO .QD levothyroxine 50 mcg tablet 50 mcg PO .QD cholecalciferol (vitamin D3) [Vitamin D3] 25 mcg (1,000 unit) capsule 50 mcg PO DAILY albuterol sulfate [ProAir HFA] 90 mcg/actuation HFA aerosol inhaler 1 inh inhalation Q4H PRN (Reason: shortness of breath or wheezing) potassium chloride [K-Tab] 20 mEq tablet extended release 20 meq PO DAILY nitroglycerin [Nitrostat] 0.4 mg tablet, sublingual 0.4 mg sublingual Q5M PRN (Reason: chest pain) Rx Instructions: do not exceed 3 doses per episode Referrals: Shaikh Elliott MD [Primary Care Provider] - 1 week
[2023-08-21 22:00] LABS: Basophils Percent Auto 0.3 % (0.2-2.0); Eosinophils Percent Auto 0.3 % (0.9-7.0); Hemoglobin 14.5 g/dL (14.0-18.0); Immature Granulocytes Abs Auto 0.01 10^3/uL (0.00-0.03); Immature Granulocytes Pct Auto 0.2 % (0.0-0.5); Lymphocytes Percent Auto 16.5 % (20.5-60.0); Mean Corpuscular HGB Conc 33.7 g/dL (29.9-35.2); Mean Corpuscular Hemoglobin 31.6 pg (25.9-34.0); Mean Corpuscular Volume 93.7 fL (80.0-94.0); Mean Platelet Volume 10.2 fL (9.5-13.5); Monocytes Absolute Auto 0.5 10^3/uL (0.3-0.8); Neutrophils Absolute Auto 4.3 10^3/uL (1.4-6.5); Neutrophils Percent Auto 73.7 % (43.0-75.0); Platelet Count 147 10^3/uL (150-450); Red Blood Count 4.59 10^6/uL (4.70-6.10); White Blood Count 5.8 10^3/uL (4.0-11.0)
[2023-08-21 22:12] LABS: Alanine Aminotransferase 48 U/L (16-63); Albumin Globulin Ratio 1.1; Albumin Level 3.7 g/dL (3.4-5.0); Alkaline Phosphatase 83 U/L (46-116); Anion Gap 10.9; Aspartate Amino Transferase 22 U/L (15-37); Bilirubin Total 0.8 mg/dL (0.2-1.0); Calcium 9.3 mg/dL (8.5-10.1); Chloride 103 mmol/L (98-107); Estimated GFR (African America >60 (>=60); Estimated GFR (Non-African Ame >60 (>=60); Globulin 3.4 g/dL; Glucose 148 mg/dL (74-106); Sodium 144 mmol/L (136-145); Total Protein 7.1 g/dL (6.4-8.2)
[2023-08-21 22:18] LABS: Lactate/Lactic Acid 1.8 mmol/L (0.4-2.0); Troponin I High Sensitivity 17.6 pg/mL (4.0-76.1)
[2023-08-21] MEDS: 0.9 % SODIUM CHLORIDE 1,000 ML 500 ML IV (22:18)
[2023-08-21] MEDS: ONDANSETRON PF 4 MG/2 ML VIAL IV (22:19)
[2023-08-21] MEDS: FAMOTIDINE/PF 20 MG/2 ML VIAL IV (22:19)
[2023-08-21 22:24] LABS: Potassium 2.9 mmol/L (3.5-5.1)
[2023-08-21 22:39] LABS: Adenovirus NOT DETECTED (NOT DETECTE); Bordetella parapertussis NOT DETECTED (NOT DETECTE); Coronavirus 229E NOT DETECTED (NOT DETECTE); Coronavirus HKU1 NOT DETECTED (NOT DETECTE); Coronavirus NL63 NOT DETECTED (NOT DETECTE); Coronavirus OC43 NOT DETECTED (NOT DETECTE); Human Metapneumovirus NOT DETECTED (NOT DETECTE); Human Rhinovirus/Enterovirus NOT DETECTED (NOT DETECTE); Influenza A NOT DETECTED (NOT DETECTE); Influenza B NOT DETECTED (NOT DETECTE); Mycoplasma pneumoniae NOT DETECTED (NOT DETECTE); Parainfluenza Virus 1 NOT DETECTED (NOT DETECTE); Parainfluenza Virus 2 NOT DETECTED (NOT DETECTE); Parainfluenza Virus 3 NOT DETECTED (NOT DETECTE); Parainfluenza Virus 4 NOT DETECTED (NOT DETECTE); Respiratory Syncytial Virus NOT DETECTED (NOT DETECTE); SARS-CoV-2 NOT DETECTED (NOT DETECTE)
[2023-08-21] MEDS: POTASSIUM CHLORIDE IN WATER 10 MEQ/100 ML PIGGYBACK 100 MEQ IV (23:06)
[2023-08-22] VITALS (10 sets, daily range): BP systolic 110–168; BP diastolic 64–92; PULSE 61–80; RESP 12–71; TEMP 36.5–37.1; O2SAT 92–97; BMI 26.4
[2023-08-22] MEDS: MORPHINE SULFATE 4 MG/ML VIAL IV (00:52)
[2023-08-22] MEDS: ONDANSETRON PF 4 MG/2 ML VIAL IV (00:52)
[2023-08-22] MEDS: PIPERACILLIN SODIUM/TAZOBACTAM 3.375 GM in 0.9 % SODIUM CHLORIDE 50 ML IV ×3 (00:52→20:29)
[2023-08-22] MEDS: MAGNESIUM OXIDE 400 MG TABLET PO ×2 (00:52→21:52)
[2023-08-22] MEDS: 0.9 % SODIUM CHLORIDE 1,000 ML 125 ML IV (00:53)
--- OUTSIDE RECORDS SUMMARY | 2023-08-22 01:12 | XMS_ITS | CCD ---
Author Name Unknown Address [address] [place] [address] Organization [facility] Care Team Providers Care Scientific Systems Analyst Name Role Phone PHYSICIAN, DEFAULT Unavailable Unavailable PHYSICIAN, DEFAULT Unavailable Unavailable KIERA LOMBARDO Primary Care Physician Franky Veronica Primary Care Provider SHAIKH ELLIOTT [...] LA O H Primary Care Unavailable FAWWAD, DEL A O H Admitting Unavailable FAWWAD, DE LA [...] Admitting Unavailable MOREJON ., CALVIN Consulting Unavailable [facility], [facility] Primary Care Unavailable WINSTON ., DR PAULINE Ring Attending Unavailable WINSTON ., DR PAULINE Ring Admitting Unavailable [facility], [facility] Primary Care Unavailable WEST, DR LEEANN Valles Consulting Unavailable MOUKARBEL, DR WALLS Admitting Unavailable MOUKARBEL, DR WALLS Attending Unavailable MOUKARBEL, DR WALLS Consulting Unavailable [facility], [facility] Primary Care Unavailable AKKINA, REMY Admitting Unavailable AKKINA, REMY Attending Unavailable WINSTON ., DR PAULINE Ring Consulting Unavailable AKKINA, REMY Consulting Unavailable REQUEST, DR NONE LISTED Primary Care Unavaila ble NILL ., DR HYMAN Admitting Unavailable NILL ., DR HYMAN Attending Unavailable NILL ., DR HYMAN Consulting Unavailable [facility], [facility] Consulting Unavailable NEFCY, BRITTANIE Consulting Unavailable [facility], [facility] Primary Care Unavailable VERGARA ., DR JASSO Admitting Unavailable VERGARA ., DR JASSO Attending Unavailable VERGARA ., DR JASSO Consulting Unavailable [facility], [facility] Primary Care Unavailable WINSTON ., DR PAULINE Ring Consulting Unavailable WINSTON ., DR PAULINE Ring Admitting Unavailable WINSTON ., DR PAULINE Ring Attending Unavailable LAKSHMIPATHY ., ROGELIO Attending Sweta vailable LAKSHMIPATHY ., ROGELIO Admitting Sweta vailable [facility], [facility] Primary Care Unavailable [facility], [facility] Primary Care Unavailable NILL ., DR HYMAN Attending Unavailable NILL ., DR HYMAN Consulting Unavailable NILL ., DR HYMAN Admitting Unavailable AGUBOSIM, ELIZ Consulting Unavailable DORKOSKLEO KANDICE Consulting Unavailable [facility], [facility] Primary Care Unavailable NILL ., DR HYMAN Attending Unavailable NILL ., DR HYMAN Admitting [facility]available [facility] Primary Care Unavailable VERGARA ., DR JASSO Admitting Unavailable VERGARA ., DR JASSO Attending Unavailable VERGARA ., DR JASSO Consulting Unavailable WINSTON ., DR PAULINE Ring Attending Unavailable WINSTON ., DR PAULINE Ring Consulting Unavailable [facility], [facility] Primary Care Unavailable WINSTON ., DR PAULINE [...] Admitting Unavailable Mekhi VERGARA Referring Unavailable Mekhi VERGRAA Attending Unavailable Mekhi VERGARA Admitting Unavailable FAWWAD, DE LA O Primary Care Unavailable Mekhi VERGARA Attending Unavailable Allergies Allergy Classification Reported Allergen(s) Allergy Type Date of Onset Reaction(s) Facility (10 sources) Acetaminophen / HYDROcodone; Translations: [acetaminophen-hydr ocodone] Drug Allergy Nausea and vomiting [facility] (16 sources) Acetaminophen / oxyCODONE; Translations: [acetaminophen-oxyc odone] Drug Allergy 06-03-20 16 Vomiting [facility] (18 sources) tiZANidine; Translations: [tizanidine] Drug Allergy 05-11-20 19 Mental Status Change, Vomiting [facility] (11 sources) traMADol; Translations: [tramadol] Drug Allergy 02-28-20 22 Hallucinations [facility] (2 sources) Acetaminophen / oxyCODONE; Translations: [OXYCODONE-ACETAMIN OPHEN] Drug Allergy 06-03-20 16 [facility] Repository (2 sources) Acetaminophen / HYDROcodone Drug Allergy 06-03-20 16 [facility] Rep[facility] (2 sources) Acetaminophen / oxyCODONE Drug Allergy 06-03-20 16 [facility] (2 sources) cyclobenzaprine Drug Allergy 07-18-19 17 [facility] (1 source) tiZANidine Drug Allergy [facility] (2 sources) traMADol Drug Allergy 06-12-20 16 [facility] Medications Current Medications Medication Drug Class(es) Dates Sig (Normalized) Sig (Original) [facility] oral capsule (4 sources) Start: 06-01-2019 take 1 capsule by mouth twice daily [facility] oral capsule cap(s), Oral, BID, Refill(s) 0, Prophylaxis Start Date: 06/01/19 Status: Ordered [id number] 200 actuat albuterol 0.09 mg/actuat metered dose [...] rhamn osus GG (9 sources) Start: 04-22-2022 [facility] 0 Start Date: 04/22/22 [...] Daily, # 30 tab(s), Refills(s) 0, Pharmacy: [facility], 177.8, cm, 07/10/21 15:02:00 EST, Height/Length Dosing, 88.6, kg, 07/10/21 15:02:00 EST, Weight Dosing Start Date: 07/10/21 Status: Ordered Start: 07-10-2021 take 1 tablet by ravi once daily pantoprazole 40 mg Oral EC Tab 40 mg = 1 tab(s), Oral, Daily, # 30 tab(s), Refills(s) 0, Pharmacy: [facility], 177.8, cm, 07/10/21 15:02:00 EST, Height/Length Dosing, 88.6, kg, 07/10/21 15:02:00 EST, Weight Dosing Start Date: 07/10/21 Status: Ordered pregabalin 75 mg oral capsule (11 sources) Start: 04-22-2022 take 1 capsule by mouth twice daily pregabalin 75 mg Cap 75 mg = 1 cap(s), Oral, BID, Refills(s) 0 Start Date: 04/22/22 Status: Ordered take 1 capsule by mo [facility] three times daily pregabalin (LYRICA) 50 mg [...] every six hours as needed for pain Somerset 325 mg-5 mg oral tablet 1 tab(s), [...] completed., # 2 tab(s), Refills(s) 0, Pharmacy: [facility] #[id number], 177, cm, 06/20/23 10:48:00 EST, Height/Length Dosing, 81.9, kg, 06/20/23 10:48:00 EST, Weight Dosing Start Date: 06/20/23 Status: Ordered Start: 07-26-2022 take 1 tablet by ravi th once daily Cipro 250 mg Tab 250 mg = 1 tab(s), Oral, Daily, Take 1 tablet the day before the procedure and 1 tablet after the procedure, # 2 tab(s), Refills(s) 0, Pharmacy: [facility] #[id number], 177.8, cm, 04/22/22 15:44:00 EDT, Height/Length Dosing, 85.4, kg, 04/22/22 15:44:00 EDT,... Start Date: 07/26/22 Status: Ordered Start: 07-10-2021 take 1 tablet by ravi th once daily Cipro 500 mg Tab 500 mg = 1 tab(s), Oral, Daily, Take 1 tablet 07/16/21 and 1 tablet after the procedure 07/17/21, # 2 tab(s), Refills(s) 0, Pharmacy: [facility] [id number] [facility], 177.8, cm, 07/24/20 9:23:00 EST, Height/Length [...] Coronary arteriosclerosis; Translations: [Atherosclerotic heart disease of [place] coronary artery without angina pectoris] Onset: 02-12-2022 [...] 11-09-2021 Episodic Other aftercare (1 source) Other fpc (current) drug therapy; Translations: [OTH DETENTION CURRENT DRUG THERAPY] Onset: 02-12-2022 Episodic Other aftercare (1 source) 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 Consent for Treatmenton 08-07 Consent for Treatment [id number] Normal [facility] Consent for Treatment [id number] Normal [facility] Operative Reporton Operative Report Patient: BEN GUADALUPE Age: 87 years Sex: Male : 1935 Associated Diagnoses: None Author: Mehki VERGARA MD Procedure Operative Information Details: Date/ [...] with antibiotic coverage, Follow up arranged. Normal [facility] Comment on above: Result Comment: Elec tronically Signed By: URSULA WORKMAN, Mekhi Mortensen\Date and Time Signed: 08/19/23 16:18 EST PSA Totalon 08-19-2023 PSA Total 3.7 ng/mL High 0.1-3.5 [facility] Comment on above: Result Comment: The concentration of PSA determined by different manufacturers can vary due to differences in assay methods and reagent specificity. Values obtained from different assay methods cannot be used interchangeably. The methodology used for this result was chemiluminescence using [employer]'s Access Hybritech PSA reagent. Performed By: #### 1 [id number] ####[facility] [id number] [place] [address] Reminderson 07-03-2023 Reminders - From: Alaina Dickson To: EU - Recalls Ursula; Cc: Alaina iDckson; Sent: 10/16/2022 14:04:20 EDT Show up: 06/06/2023 14:04:00 EST Subject: cysto/fish/cytol Due Date/Time: 06/23/2023 14:04:00 EST Reminder/Recall Patient is due in Jul 2023 for 1 year cysto/fish/cytol (bt ck) l/m on Milly per pt request from appt 06/20/23.LG Spoke to Milly, pt sched for 07/22/23 at [facility]. Confirmation mailed. 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 Urinary retention Prostatitis BPH with urinary obstruction Urge incontinence History of bladder cancer Tests Performed Urnls Dip Stick Auto w/o Microscopy POC 51485 Your Care Team Attending Physician - Mekhi VERGARA MD Primary Care Physician - SHAIKH ELLIOTT MD This Is Your Medications List ciprofloxacin (Cipro 500 mg Tab) doxycycline (doxycycline hyclate 100 mg Tab) Contact prescribing physician if questions or concerns acetaminophen-hydrocodone ([place] 325 mg-5 mg oral tablet) albuterol (ProAir [...] (glipiZIDE 5 mg Tab) lactobacillus rhamnosus GG ([facility]) levothyroxine (levothyroxine 50 mcg (0.05 mg) [...] with URSULA WORKMAN, GO [place] When: Where: [address] [place] [address]- Medications What How Much When Instructions New ciprofloxacin (Cipro 500 mg Tab) 1 Tablets By Mouth As Directed Pt to take 1 tab the day before procedure and the 2nd tab the day of procedure once completed. Pickup at [facility] #[id number] New doxycycline (doxycycline hyclate 100 mg Tab) 1 Tablets By Mouth 2 times a day Duration: 2 Weeks Pickup at [facility] #[id number] Unchanged acetaminophen-hydrocodone ([place] 325 mg-5 mg oral tablet) 1 Tablets [...] questions or (more content not included)... Normal [facility] Patient Educationon 06-20-20 Patient Education Infectious [...] these instructions at home: Medicines ? Take bels-ene-muahcrv and prescription medicines only as told by [...] Where to find more information ? National [place] of Diabetes and Digestive and Kidney Diseases: (more content not included)... Normal [facility] Urology Office/Clinic Noteon 06-20-2023 Urology Office/Clinic [...] recent PSA. Pt has been to the [facility] ER 3x since 06/10/23 w/ complaints [...] of urine, unspecified) Pt has been to [facility] ER 3x since 06/10/23 w/ complaints [...] Contact Information URSULA WORKMAN, Mekhi [place], URL [address] [place] [address]- Additional Instructions: Schedule cysto for b.t. check [...] BMI 27 (more content not included)... Normal [facility] Comment on above: Result Comment: Elec tronically Signed By: Mekhi VERGARA MD\.br\Date and Time Signed: 06/20/23 11:33 EST\.br\Electronically Co-Signed By: Silke Dupont\.br\Date and Time Co-Signed: 06/20/23 11:32 EST Office Visiton 03-07-2023 Follow-up visit [id number] Ben Guadalupe 1935 M Date Provider Department Center 03/07/2023 120-ANDREA [place] CONCHIS John Family History Problem Relation Age of Onset Heart failure Mother Prostate cancer Father Coronary artery disease Brother Prostate cancer Brother Family Status - Relation Status Age at Mother Father Brother Level of Service:13419 ND OFFICE/OUTPATIENT ESTABLISHED MOD MDM 30-39 MIN Normal [facility] Ambulatory Visit Summaryon 0 12-23-2022 Ambulatory Visit Summary BEN GUADALUPE :1935 Visit Date:12/23/2022 Ambulatory Visit Instructions Your Diagnosis Rising PSA 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 Urge incontinence BPH with urinary obstruction History of bladder cancer Kidney stones Tests Performed Urnls Dip Stick Auto w/o Microscopy POC 49003 Your Care Team Attending Physician - URSULA WORKMAN, Mekhi Oh Primary Care Physician - SHAIKH ELLIOTT This Is Your Medications List Contact prescribing physician if questions or concerns acetaminophen-hydrocodone ([place] 325 mg-5 mg oral tablet) albuterol (ProAir [...] (Lasix 40 mg Tab) lactobacillus rhamnosus GG ([facility]) levothyroxine (levothyroxine 50 mcg (0.05 mg) [...] WORKMAN, Mekhi Oh Where: [facility] Patient Educationon 12-23- 23 Patient Education Oncology [...] if anything looks unusual. Men with a sxbdsd-gqde-dsyjkg risk for skin cancer may want to see a public relations specialist (nurse head) for an annual body check. What are the benefits of screening? Cancer screening is done to look for cancer in the very early stages, before it spreads and becomes harder to treat and before you would start to notice symptoms. Finding cancer early improves the chances of successful treatment. It ma (more content not included)... Normal [facility] Urology Office/Clinic Noteon 12-23-2022 Urology Office/Clinic [...] [facility] [address], [place] [address]- Additional Instructions: 6 mos psa Patient Education [...] ring Urg (more content not included)... Normal [facility] Comment on above: Result Comment: Elec tronically Signed By: Mekhi VERGARA MD\.br\Date and Time Signed: 12/23/22 13:49 EDT\.br\Electronically Co-Signed By: Tierra Anderson\.br\Date and Time Co-Signed: 12/23/22 13:48 EDT POINT OF CARE GLUCOSEon 04-2 Glucose [Mass/Vol] 230 mg/dL Critically high 74-106 T [facility] Comment on above: Performed By: #### P SAD #### [facility] [address] [address] [address] Mason Astudillo Office Visiton 10-18-2022 Follow-up visit [id number] Ben Guadalupe 1935 M Date Provider Department Center 10/18/2022 NERISSA TESFAYE CARD [facility] Family History Problem Relation Age of Onset Heart failure Mother Prostate cancer Father Coronary artery disease Brother Prostate cancer Brother Family Status - Relation Status Age at Mother Father Brother Level of Service:79599 ND OFFICE/OUTPATIENT ESTABLISHED LOW MDM 20-29 MIN Reason for Visit and Comments: Coronary Artery Disease [187] Atrial Fibrillation [80] Normal [facility] ANESon 10-11-2022 ANES -------- Attestation signed by [...] 10/11/22 09 Procedure: TRANSESOPHAGEAL ECHO (KINZA) Location: [facility] Vascular Lab Clinical [...] with fellow and attending. Additional Equipment Requests [facility] HPon 10-11-2022 HP -------- Attestation signed [...] there are no changes to the H&P. [facility] Provider Letteron 09-13-2022 Provider Letter (Inserted Image. Sweta ble to display) September 13, 2022 BEN GUADALUPE [facility] [id number] BEN GUADALUPE 1935 Dear Mr. Guadalupe, We [...] prompt attention to this matter. Please call [phone] option 3 to be rescheduled. Sincerely, [facility] [address], [place] [address] [facility] 09-11-2022 [facility] Cardiology - [facility] Subjective Ben Guadalupe is a [...] 2022 he was admitted to the [facility] with palpitations and chest pain. He [...] lower le (more content not included)... Normal [facility] 30on 08-29-2022 30 Problem: Pain - [...] and behaviors that affect risk of falls [place] fall precautions as indicated by assessment Educate [...] make progress toward the following goals. Normal [facility] DSon 08-29-2022 DS -------- Attestation signed by Kavita Danielle MD at 08/30/2022 1:55 PM I discussed the patient on the same date of service as the Non-Physician Provider Maritza Kirkland. Teaching Physician's Revisions: None Admission Admitted 08/27/2022 for Paroxysmal atrial fibrillation Discharge Diagnosis Paroxysmal atrial fibrillation ([facility]) Discharge Disposition Home or Self Care Discharge [...] HYDROcodone-acetaminophen 5-325 mg tablet Commonly known as: [place] levothyroxine 50 mcg tablet Commonly known as: [...] Medications These medications were sent to [facility] - [address] [place] [address] [address] [facility] [place] [address], [facility] [address] atorvastatin 40 mg tablet clopidogrel 75 mg [...] reduce the risk of stroke given elevated [id number] score of 5 due to age, hypertension, [...] long-term anticoagulatio (more content not included)... Normal [facility] NURSNOTEon 08-29-2022 NURSNOTE Discharge instructio ns provided to patient and signed copy in the chart. Pt denies further questions at this time. Normal [facility] NURSNOTE Rn assessed patient at beginning of shift and TR band was already deflated on the L radial cath site. Site was clean, dry, and intact with no signs of bleeding. Rn replaced TR band with gauze and transparent dressing and continued to do cath checks. Normal [facility] 30on 08-28-2022 30 Problem: Pain - [...] and behaviors that affect risk of falls [place] fall precautions as indicated by assessment Educate [...] shift include stable site & HR Normal [facility] ANESon 08-28-2022 ANES -------- Attestation signed by Nishi Cheney MD at 08/28/2022 3:17 PM Nishi Cheney MD, MPH, [facility], [facility], [facility] Interventional Cardiology Pager Email: [email or web address] Patient: Ben Guadalupe Procedure Information Date/Time: 08/28/22 1013 Procedure: Left heart cath Location: [facility] / [facility] VASCULAR [facility] (Cath) Providers: Nishi Cheney MD [...] fellow and attending. Additional Equipment Requests Normal [facility] BASIC METABOLIC PANELon 08-08 Anion gap [Moles/Vol] 12 mmol/L Normal 7-20 [facility] Comment on above: Performed By: #### L AB15 ####[facility] ([facility])[address] [place] [address] Calcium [Mass/Vol] 8.5 mg/dL Low 8.6-10.3 [facility] Comment on above: Performed By: #### L AB15 ####[facility] ([facility])[address] [place] [address] Chloride [Moles/Vol] 104 mmol/L Normal 98-107 [facility] Comment on above: Performed By: #### L AB15 ####[facility] ([facility])[address] [place] [address] CO2 [Moles/Vol] 25 mmol/L Normal 21-31 [facility] Comment on above: Performed By: #### L [id number] ####[facility] ([facility])[address] [place] [address] Creatinine [Mass/Vol] 1.05 mg/dL Normal 0.70-1.30 [facility] Comment on above: Performed By: #### L AB15 ####[facility] ([facility])[address] [place] [address] GLOMERULAR FILTRATION RATE ML/MIN/1.73 SQ M.PREDICTED 64.4 mL/min/1.73m*2 Normal >60.0 [facility] Comment on above: Result Comment: [facility]???s estimated glomerular filtration rate (eGFR) will [...] individuals. Performed By: #### L AB15 ####[facility] ([facility])[address] [place] [address] Glucose [Mass/Vol] 119 mg/dL High 70-100 [facility] Comment on above: Performed By: #### L AB15 ####[facility] ([facility])[address] [place] [address] Potassium [Moles/Vol] 3.6 mmol/L Normal 3.5-5.1 [facility] Comment on above: Performed By: #### L AB15 ####[facility] ([facility])[address] [place] [address] Sodium [Moles/Vol] 137 mmol/L Normal 136-145 [facility] Comment on above: Performed By: #### L AB15 ####[facility] ([facility])[address] [place] [address] Urea nitrogen [Mass/Vol] 21 mg/dL Normal 7-25 [facility] Comment on above: Performed By: #### L AB15 ####[facility] ([facility])[address] [place] [address] UREA NITROGEN/CREATININE (MASS RATIO) IN SER/PLAS 20.00 Normal [facility] Comment on above: Performed By: #### L AB15 ####[facility] ([facility])[address] [place] [address] CBCon 08-28-2022 Erythrocyte distribution width (RBC) [Ratio] 15.0 % Normal 11.5-15.0 [facility] Comment on above: Performed By: #### L [id number] ####[facility] ([facility])[address] [place] [address] ERYTHROCYTE MEAN CORPUSCULAR HEMOGLOBIN CONCENTRATION (G/DL) BY AUTOMATED 33.0 g/dL Normal 32.0-35.0 [facility] Comment on above: Performed By: #### L [id number] ####[facility] ([facility])[address] [place] [address] Hematocrit (Bld) [Volume fraction] 43.6 % Normal 39.0-55.0 [facility] Comment on above: Performed By: #### L [id number] ####[facility] ([facility])[address] [place] [address] Hemoglobin (Bld) [Mass/Vol] 14.4 g/dL Normal 13.0-17.0 [facility] Comment on above: Performed By: #### L [id number] ####[facility] ([facility])[address] [place] [address] IMMATURE PLATELET FRACTION % 1.7 % Normal 0.8-6.3 [facility] Comment on above: Performed By: #### L [id number] ####[facility] ([facility])[address] [address] MCH (RBC) [Entitic mass] 29.4 pg Normal 27.0-33.0 [facility] Comment on above: Performed By: #### L [id number] ####[facility] ([facility])[address] [address] MCV (RBC) [Entitic vol] 89.2 fL Normal 82.0-98.0 [facility] Comment on above: Performed By: #### L [id number] ####[facility] ([facility])[address] [address] PLATELETS (10*3/UL) IN BLOOD AUTOMATED COUNT 124 10*3/uL Low 150-400 [facility] Comment on above: Performed By: #### L [id number] ####[facility] ([facility])[address] [address] RBC (Bld) [#/Vol] 4.89 10*6/uL Normal 4.20-5.70 [facility] Comment on above: Performed By: #### L [id number] ####[facility] ([facility])[address] [place], [place] [address] WBC (Bld) [#/Vol] 6.30 10*3/uL Normal 4.00-10.60 [facility] [facility] Comment on above: Performed By: #### L [id number] ####[facility] (SU[place]DEEP)[address] [address] HPon 08-28-2022 HP -------- Attestation signed by Nishi Cheney MD at 08/28/2022 3:17 PM Nishi Cheney MD, MPH, [facility], [facility], [facility] Interventional Cardiology Pager Email: [email or web address] H&P reviewed. The patient was examined and there are no changes to the H&P. Normal [facility] CECINOTMarjorieon 08-28-2022 BERNICE Spoke with patient s on Corey on phone updating on the poc and pt needing to have a cardiac cath performed today.Son expresses full understanding of the reason for procedure; RN provided son with RN contact number for any additional questions family may have. Normal [facility] TROPONIN Ion 08-28-2022 Troponin I.cardiac [Mass/Vol] 0.08 ng/mL High 0.00-0.04 [facility] Comment on above: Order Comment: Add t o AM labs please Performed By: #### L [id number] ####[facility] ([place])[address] [address] HPon 08-27-2022 HP H&P reviewed. The fidelia jimenez was examined and there are no changes to the H&P. The patient is a 86 y.o. male with complex prior medical history including Paroxysmal atrial fibrillation, who needs long-term anticoagulation therapy to reduce the risk of stroke given elevated [id number] score of 5 due to age, hypertension, [...] surgery. he would like to proceed. Normal [facility] NURSNOTEon 08-27-[address] Danielle, Maritza Larkin REACH LIFT TRUCK DRIVER at bedside assessing pt, echo being performed at bedside. Normal [facility] NURSNOTE Beside swallow compl eted. Pt successfully passed Normal [facility] TROPONIN Ion 08-27-2022 Troponin I.cardiac [Mass/Vol] 0.25 ng/mL Critically high 0.00-0.04 [facility] Comment on above: Performed By: #### L [id number] ####[facility] ([employer])[address] [place] [address] TYPE AND SCREENon 08-27-2022 AB SCREEN Negative Normal [facility] Comment on above: Performed By: #### L [id number] ####[facility] BLOOD B[facility], ABO group Nom (Bld) A Normal [facility] Comment on above: Performed By: #### L [id number] ####[facility] BLOOD [facility], RH TYPE IN BLOOD Negative Normal [facility] Comment on above: Performed By: #### L [id number] ####[facility]OD [facility], BASIC METABOLIC PANELon 08-07 Anion gap [Moles/Vol] 11 mmol/L Normal 7-20 [facility] Comment on above: Performed By: #### L AB15 ####[facility] ([employer])[address] [place] [address] Calcium [Mass/Vol] 8.9 mg/dL Normal 8.6-10.3 [facility] Comment on above: Performed By: #### L AB15 ####[facility] (BEAKER)[address] [place] [address] Chloride [Moles/Vol] 99 mmol/L Normal 98-107 [facility] Comment on above: Performed By: #### L [id number] ####[facility] ([facility])[address] [place] [address] CO2 [Moles/Vol] 32 mmol/L High 21-31 [facility] Comment on above: Performed By: #### L AB15 ####[facility] ([facility])[address] [place] [address] Creatinine [Mass/Vol] 1.12 mg/dL Normal 0.70-1.30 [facility] Comment on above: Performed By: #### L AB15 ####[facility] ([facility])[address] [place] [address] GLOMERULAR FILTRATION RATE ML/MIN/1.73 SQ M.PREDICTED 59.6 mL/min/1.73m*2 Low >60.0 [facility] Comment on above: Result Comment: The [facility]???s estimated glomerular filtration rate (eGFR) will [...] individuals. Performed By: #### L AB15 ####[facility] ([facility])[address] [place] [address] Glucose [Mass/Vol] 153 mg/dL High 70-100 [facility] Comment on above: Performed By: #### L AB15 ####[facility] ([facility])[address] [place] [address] Potassium [Moles/Vol] 3.3 mmol/L Low 3.5-5.1 [facility] Comment on above: Performed By: #### L AB15 ####[facility] (BEAKER)[address] [place] [address] Sodium [Moles/Vol] 139 mmol/L Normal 136-145 [facility] Comment on above: Performed By: #### L AB15 ####[facility] (BEAKER)[address] [place] [address] Urea nitrogen [Mass/Vol] 21 mg/dL Normal 7-25 [facility] Comment on above: Performed By: #### L AB15 ####[facility] (BEAKER)[address] [place] [address] UREA NITROGEN/CREATININE (MASS RATIO) IN SER/PLAS 18.75 Normal [facility] Comment on above: Performed By: #### L [id number] ####[facility] ([facility])[address] [place] [address] CBCon 08-20-2022 Erythrocyte distribution width (RBC) [Ratio] 15.0 % Normal 11.5-15.0 [facility] Comment on above: Performed By: #### L [id number] ####[facility] ([facility])[address] [place] [address] ERYTHROCYTE MEAN CORPUSCULAR HEMOGLOBIN CONCENTRATION (G/DL) BY AUTOMATED 34.5 g/dL Normal 32.0-35.0 [facility] Comment on above: Performed By: #### L [id number] ####[facility] (BEAKER)[address] [place] [address] Hematocrit (Bld) [Volume fraction] 44.7 % Normal 39.0-55.0 [facility] Comment on above: Performed By: #### L [id number] ####[facility] (BEAKER)[address] [place] [address] Hemoglobin (Bld) [Mass/Vol] 15.4 g/dL Normal 13.0-17.0 [facility] Comment on above: Performed By: #### L [id number] ####[facility] (BEAKER)[address] [place] [address] MCH (RBC) [Entitic mass] 30.2 pg Normal 27.0-33.0 [facility] Comment on above: Performed By: #### L [id number] ####[facility] ([facility])[address] [place] [address] MCV (RBC) [Entitic vol] 87.6 fL Normal 82.0-98.0 [facility] Comment on above: Performed By: #### L [id number] ####[facility] ([facility])[address] [place] [address] PLATELETS (10*3/UL) IN BLOOD AUTOMATED COUNT 108 10*3/uL Low 150-400 [facility] Comment on above: Performed By: #### L [id number] ####[facility] ([facility])[address] [place] [address] RBC (Bld) [#/Vol] 5.10 10*6/uL Normal 4.20-5.70 [facility] Comment on above: Performed By: #### L [id number] ####[facility] ([facility])[address] [place] [address] WBC (Bld) [#/Vol] 4.18 10*3/uL Normal 4.00-10.60 [facility] Comment on above: Performed By: #### L [id number] ####[facility] ([facility])[address] [place] [address] HPon 08-20-2022 HP H&P reviewed. The pa tient was examined and there are no changes to the H&P. Normal [facility] MRSA/MSSA DNA NASALon 2022 MRSA DNA Negative Normal Negative, Invalid [facility] Comment on above: Performed By: #### L [id number] ####[facility] ([facility])[address] [place] [address] MSSA DNA Positive Abnormal Negative, Invalid [facility] Comment on above: Performed By: #### L [id number] ####[facility] ([employer])[address] [place] [address] TYPE AND SCREENon 08-20-2022 AB SCREEN Negative Normal [facility] Comment on above: Performed By: #### L [id number] ####[facility] BLOOD B[facility], ABO group Nom (Bld) A Normal [facility] Comment on above: Performed By: #### L [id number] ####[facility] BLOOD [facility], RH TYPE IN BLOOD Negative Normal [facility] Comment on above: Performed By: #### L [id number] ####[facility] BLOOD [facility], Orders Onlyon 08-16-2022 Orders Only [id number] Ben Guadalupe 1935 M Date Provider Department Center 08/16/2022 NERISSA TESFAYE Family History Problem Relation Age of Onset Heart failure Mother Prostate cancer Father Coronary artery disease Brother Prostate cancer Brother Family Status - Relation Status Age at Mother Father Brother Normal [facility] Prep for Procedureon 023 Prep for Procedure [id number] Ben Guadalupe 1935 M Date Provider Department Center 08/16/2022 NERISSA TESFAYE Family History Problem Relation Age of Onset Heart failure Mother Prostate cancer Father Coronary artery disease Brother Prostate cancer Brother Family Status - Relation Status Age at Mother Father Brother Normal [facility] Telephoneon 08-13-2022 Telephone [id number] Ben Guadalupe 1935 Date Provider Department Center 08/13/2022 ANGELES MCKINNEY [facility] V[facility] NE HeartVAS Family History Problem Relation Age of Onset Heart failure Mother Prostate cancer Father Coronary artery disease Brother Prostate cancer Brother Family Status - Relation Status Age at Mother Father Brother Normal [facility] HPon 08-05-2022 [facility] Cardiology - [facility] Subjective Ben Guadalupe is a [...] 2022 he was admitted to the [facility] with palpitations and chest pain. He [...] vomiting Tizani (more content not included)... Normal [facility] Office Visiton 08-05-2022 Follow-up visit [id number] Bne Guadalupe 1935 M Date Provider Department Center 08/05/2022 NERISSA TESFAYE [facility] Family History Problem Relation Age of Onset Heart failure Mother Prostate cancer Father Coronary artery disease Brother Prostate cancer Brother Family Status - Relation Status Age at Mother Father Brother Level of Service:23966 ND OFFICE/OUTPATIENT ESTABLISHED LOW MDM 20-29 MIN Reason for Visit and Comments: Atrial Fibrillation [80] - Discuss Watchman Coronary Artery Disease [187] Hypertension [044763] Normal [facility] POINT OF CARE GLUCOSEon 01-0 Glucose [Mass/Vol] 203 mg/dL Critically high 74-106 [facility] Comment on above: Performed By: #### U A #### [facility] Laboratory [address] [address] [address] Mason Astudillo Office Visiton 06-24-2022 Follow-up visit [id number] Ben Guadalupe 1935 Date Provider Department Center 06/24/2022 MARITZA JEWELL [facility] Family History Problem Relation Age of Onset Heart failure Mother Prostate cancer Father Coronary artery disease Brother Prostate cancer Brother Family Status - Relation Status Age at Mother Father Brother Level of Service:91077 ND OFFICE/OUTPATIENT ESTABLISHED SF MDM 10-19 MIN Reason for Visit and Comments: Atrial Fibrillation [80] Coronary Artery Disease [187] Hypertension [346272] Normal [facility] Follow-Upon 05-27-2022 Follow-Up [id number] Ben Guadalupe 1935 M Date Provider Department Center 05/27/2022 KAVITA RITTER [facility] Family History Problem Relation Age of Onset Heart failure Mother Prostate cancer Father Coronary artery disease Brother Prostate cancer Brother Family Status - Relation Status Age at Mother Father Brother Level of Service:46129 ND OFFICE/OUTPATIENT ESTABLISHED MOD MDM 30-39 MIN Reason for Visit and Comments: Coronary Artery Disease [187] Hypertension [791350] Hyperlipidemia [182] LVH [Other] Normal [facility] ANES POSTPROC EVALon 022 ANES POSTPROC EVAL HNO ID: [id number] Author: Kandice Guadalupe MD Service: ? Author Type: Physician Type: Anesthesia Postprocedure Evaluation Filed: 05/17/2022 2:13 PM Note Text: POST ANESTHESIA EVALUATION NOTE : 1935 Procedure Summary Date: 05/17/22 Room / Location: [address] Anesthesia Start: 954 Anesthesia Stop: 120 [...] with this procedure. Documented by Minesh Levy APRN.PRINTER ASSISTANT 05/17/2022 12:02 PM EST SIGNATURE: Kandice Guadalupe MD PATIENT NAME: Ben Guadalupe DATE: May 17, 2022 TIME: 2:13 PM CSN: [id number] Normal [facility] ANES PRE-OPon 05-17-2022 ANES PRE-OP HNO ID: [id number] Author: Kandice Guadalupe MD Service: ? Author [...] and consent discussed: yes. Patient / Responsible Democrat agrees to proceed: yes Patient / Surrogate [...] mcg/actuation na (more content not included)... Normal [facility] BRIEF OP NOTon 05-17-2022 BRIEF OP NOT HNO ID: [id number] Author: Tristin Wilcox MD, PhD Service: Colorectal Author Type: Physician Type: Brief Op Note Filed: 05/17/2022 11:34 AM Note Text: BRIEF OPERATIVE NOTE - COLORECTAL SURGERY Log ID: [id number] Surgery/Procedure Date: 05/17/2022 Incision/Procedure Start Time: 10:17 AM Incision Close/Procedure End Time: 11:27 AM Surgeon(s) and Glue Size Machine Operator(s): Surgeon(s) and Role: * Tristin Wilcox [...] None Wound Classification: N/A Complications: None SIGNATURE: rTistin Wilcox MD, PhD PATIENT NAME: Ben Guadalupe DATE: May 17, 2022 TIME: 11:30 AM Normal [facility] Gas and Carbon monoxide pane l (BldV)on 05-17-2022 BASE DEFICIT, VENOUS -2 mmol/L Normal -2-[address] [facility] Comment on above: Order Comment: Speci men Type: VENOUS BLOOD SPECIMENOrdering Facility: [facility] Address: [address] [place] [address] Performed By: #### 2 4344-4 ####[facility] [id number] [place] [address] [place] Body temperature 97.52 [degF] Normal [facility] Comment on above: Order Comment: Speci men Type: VENOUS BLOOD SPECIMENOrdering Facility: [facility] Address: [address] [place] [address] Performed By: #### 2 4344-4 ####[facility] [id number] [place] [address] [place] Calcium.ionized (Bld) [Mass/Vol] 1.17 mmol/L Normal 1.08-1.[address] [facility] Comment on above: Order Comment: Speci men Type: VENOUS BLOOD SPECIMENOrdering Facility: [facility] Address: [address] [place] [address] Performed By: #### 2 4344-4 ####[facility] LABCLIA [id number] [place] [address] [place] Calcium.ionized adjusted to pH 7.4 (BldA) [Moles/Vol] 1.17 mmol/L Normal 1.08-1.[address] [facility] Comment on above: Order Comment: Speci men Type: VENOUS BLOOD SPECIMENOrdering Facility: [facility] Address: [address] [address] Performed By: #### 2 4344-4 ####[facility]IA [id number] [place] [address] [place] Carboxyhemoglobin (BldV) [Mass fraction] 1.4 % Normal 0.0-2.[address] [facility] Comment on above: Order Comment: Speci men Type: VENOUS BLOOD SPECIMENOrdering Facility: [facility] Address: [address] [place], [place] [address] Result Comment: Carb oxyhemoglobin Reference Range for Smokers: 2.0-8.0% Performed By: #### 2 4344-4 ####[facility] LABIA [id number] [place] [address] [place] CO2 (BldV) [Partial pressure] 37 mm[Hg] Low 42-[address] [facility] Comment on above: Order Comment: Speci men Type: VENOUS BLOOD SPECIMENOrdering Facility: [facility] Address: [address] Performed By: #### 2 4344-4 ####[facility] LABCLIA [id number] [place] [address] [place] CO2 [Moles/Vol] 23 mmol/L Low 25-[address] [facility] Comment on above: Order Comment: Speci men Type: VENOUS BLOOD SPECIMENOrdering Facility: [facility] Address: [address] [address] Performed By: #### 2 4344-4 ####[facility] LABCLIA [id number] [place] [address] [place] CO2 adjusted to patient's actual temperature (BldV) [Partial pressure] 35 mmHg Low 42-[address] [facility] Comment on above: Order Comment: Speci men Type: VENOUS BLOOD SPECIMENOrdering Facility: [facility] Address: [address] [place] [address] Performed By: #### 2 4344-4 ####[facility] LABCLIA [id number] [place] [address] [place] Glucose [Mass/Vol] 198 mg/dL High 60-105 [facility] Comment on above: Order Comment: Speci men Type: VENOUS BLOOD SPECIMENOrdering Facility: [facility] Address: [address] [place] [address] Performed By: #### 2 4344-4 ####[facility] LABCLIA [id number] [place] [address] [place] HCO3 (Bld) [Moles/Vol] 22 mmol/L Low 24-[address] [facility] Comment on above: Order Comment: Speci men Type: VENOUS BLOOD SPECIMENOrdering Facility: [facility] Address: [address] [place] [address] Performed By: #### 2 4344-4 ####[facility] LABCLIA [id number] [place] [address] [place] Hematocrit (Bld) [Volume fraction] 36.4 % Low 39.0-51.[address] [facility] Comment on above: Order Comment: Speci men Type: VENOUS BLOOD SPECIMENOrdering Facility: [facility] Address: [address] [place], [place] [address] Performed By: #### 2 4344-4 ####[facility] LABCLIA [id number] [place] [address] [place] Hemoglobin (Bld) [Mass/Vol] 11.8 g/dL Low 13.0-17.[address] [facility] Comment on above: Order Comment: Speci men Type: VENOUS BLOOD SPECIMENOrdering Facility: [facility] Address: [address] Performed By: #### 2 4344-4 ####[facility] LABIA [id number] [place] [address] [place] Lactate [Moles/Vol] 1.9 mmol/L Normal 0.5-2.2 [facility] Comment on above: Order Comment: Speci men Type: VENOUS BLOOD SPECIMENOrdering Facility: [facility] Address: [address] Performed By: #### 2 4344-4 ####[facility] LABIA [id number] [place] [address] [place] Methemoglobin (Bld) [Mass fraction] 1.1 % Normal 0.0-1.[address] [facility] Comment on above: Order Comment: Speci men Type: VENOUS BLOOD SPECIMENOrdering Facility: [facility] Address: [address] Performed By: #### 2 4344-4 ####[facility] LABIA [id number] [place] [address] [place] O2 THERAPY RA=Room Air Normal [facility] Comment on above: Order Comment: Speci men Type: VENOUS BLOOD SPECIMENOrdering Facility: [facility] Address: [address] Performed By: #### 2 4344-4 ####[facility] LABIA [id number] [place] [address] [place] Oxygen (BldV) [Partial pressure] 50 mm[Hg] High 35-[address] [facility] Comment on above: Order Comment: Speci men Type: VENOUS BLOOD SPECIMENOrdering Facility: [facility] Address: [address] Performed By: #### 2 4344-4 ####[facility] LABCLIA [id number] [place] [address] [place] Oxygen adjusted to patient's actual temperature (BldV) [Partial pressure] 48 mmHg High 35-[address] [facility] Comment on above: Order Comment: Speci men Type: VENOUS BLOOD SPECIMENOrdering Facility: [facility] Address: [address] [place], [place] [address] Performed By: #### 2 4344-4 ####[facility] LABCLIA [id number] [place] [address] [place] Oxygen saturation in Venous blood 82 % Normal 60-[address] [facility] Comment on above: Order Comment: Speci men Type: VENOUS BLOOD SPECIMENOrdering Facility: [facility] Address: [address] [place] [address] Performed By: #### 2 4344-4 ####[facility] LABCLIA [id number] [place] [address] [place] Oxyhemoglobin (BldV) [Mass fraction] 80 % Normal 60-[address] [facility] Comment on above: Order Comment: Speci men Type: VENOUS BLOOD SPECIMENOrdering Facility: [facility] Address: [address] [place], [place] [address] Performed By: #### 2 4344-4 ####[facility] LABCLIA [id number] [place] [address] [place] pH (BldV) 7.39 [pH] Normal 7.32-7.[address] [facility] Comment on above: Order Comment: Speci men Type: VENOUS BLOOD SPECIMENOrdering Facility: [facility] Address: [address] [place] [address] Performed By: #### 2 4344-4 ####[facility] LABCLIA [id number] [place] [address] [place] pH adjusted to patient's actual temperature (BldV) 7.40 Normal 7.32-7.[address] [facility] Comment on above: Order Comment: Speci men Type: VENOUS BLOOD SPECIMENOrdering Facility: [facility] Address: [address] [address] Performed By: #### 2 4344-4 ####[facility] LABCLIA [id number] [place] [address] [place] Potassium [Moles/Vol] 2.9 mmol/L Low 3.5-5.[address] [facility] Comment on above: Order Comment: Speci men Type: VENOUS BLOOD SPECIMENOrdering Facility: [facility] Address: [address] [place] [address] Performed By: #### 2 4344-4 ####[facility] LABIA [id number] [place] [address] [place] Sodium [Moles/Vol] 137 mmol/L Normal 136-144 [facility] Comment on above: Order Comment: Speci men Type: VENOUS BLOOD SPECIMENOrdering Facility: [facility] Address: [address] [place] [address] Performed By: #### 2 4344-4 ####[facility] LABIA [id number] [address] [place] OPERATIVE NOon 05-17-2022 OPERATIVE NO HNO ID: [id number] Author: Tristin Wilcox MD, PhD Service: Colorectal Author Type: Physician Type: Operative Report Filed: 05/31/2022 2:52 PM Note Text: OPERATIVE REPORT LOG ID: [id number] SURGERY DATE: 05/17/2022 INCISION/PROCEDURE START TIME: 10:17 AM INCISION CLOSE/PROCEDURE END TIME: 11:27 AM PREOPERATIVE DIAGNOSIS: Prolapsing, symptomatic, large internal and external hemorrhoids. Colonic polyps. POSTOPERATIVE DIAGNOSIS: Grade 4; Prolapsing, symptomatic, large internal and external hemorrhoids. Colonic polyps. Surgeon(s)/Proceduralist(s) and Glue Size Machine Operator(s): Surgeon(s) and Role: * Tristin Wilcox [...] with assistance. PATIENT NAME: Ben Guadalupe Normal [facility] POTASSIUM BLDon 05-17-2022 Potassium [Moles/Vol] 3.0 mmol/L Low 3.7-5.[address] [facility] Comment on above: Order Comment: Speci men Type: BLOOD SPECIMENOrdering Facility: [facility] Address: [address] [place] [id number] Performed By: #### K 1 ####[facility] LABCLIA [id number] [address] SURGICAL PATHOLOGYon 022 CASE REPORT Normal [facility] [facility] Comment on above: Order Comment: Speci men Type: TISSUE SPECIMENOrdering Facility: [facility] Address: [address] [place] [address] Result Comment: Surg ica Pathology Report Case: [id number] Authorizing Provider: Tristin Wilcox, Collected: 05/17/2022 10:25 AM , PhD Ordering Location: Admitting Received: 05/17/2022 01:44 PM Pathologist: Daryn June MD Specimens: A) - COLON POLYP, RIGHT COLON POLYP B) - COLON POLYP, LEFT COLON POLYP C) - RECTAL POLYP D) - HEMORRHOID, left lateral E) - HEMORRHOID, right posterior Performed By: #### S ####[facility] LABCLIA [id number] [address] LABCLIA [id number] [address] CLINICAL HISTORY Normal [facility] Comment on above: Order Comment: Speci men Type: TISSUE SPECIMENOrdering Facility: [facility] Address: [address] [place] [address] Result Comment: Pre- op diagnosis: Fourth degree hemorrhoids [K64.3] Performed By: #### S ####[facility] LABIA [id number] [address] LABCLIA [id number] [address] FINAL DIAGNOSIS Normal [facility] Comment on above: Order Comment: Speci men Type: TISSUE SPECIMENOrdering Facility: [facility] Address: [address] [place] [address] Result Comment: A. C olon, right, polyp, biopsy: - Tubular adenoma. B. Colon, left, polyp, biopsy: - Tubular adenoma. C. Rectum, polyp, biopsy: - Tubular adenoma. D. Anus, left lateral, hemorrhoid, excision: - Fibroepithelial polyp. E. Anus, right posterior, hemorrhoid, excision: - Dilated hemorrhoidal varices. Performed By: #### S ####[facility] LABCLIA [id number] [address] LABCLIA [id number] [address] FINAL PERFORMING LAB Normal [facility] Comment on above: Order Comment: Speci men Type: TISSUE SPECIMENOrdering Facility: [facility] Address: [address] [place] [address] Result Comment: Diag nostic interpretation performed at [facility], [address] [place] [address] CLIA# [id number] Registered Nurse Cardiac Telemetry: Nga Schultz M.D. Performed By: #### S ####[facility] LABCLIA [id number] [address] LABCLIA [id number] [address] GROSS DESCRIPTION A. COLON POLYP Normal [facility] Comment on above: Order Comment: Speci men Type: TISSUE SPECIMENOrdering Facility: [facility] Address: [address] [place] [address] Result Comment: Rece ived in formalin is [...] 0.1 cm. Totally submitted in one cassette. [facility] May 17, 2022 3:41 PM Gross examination performed at [facility], [facility] [place] [address] D. HEMORRHOID Received fresh designated left lateral is a cason-busby portion of skin that measures 4.5 x 1.5 x 1 cm. Sectioning through the specimen reveals hemorrhagic cut surfaces. Sound Technician sections are submitted in 1 cassette. [facility] May 17, 2022 3:17 PM Gross examination performed at [facility], [facility] [place] [address] E. HEMORRHOID Received fresh designated right posterior is a pink-cason portion of skin that measures 3.9 x 0.6 x 0.6 cm. Sectioning through the specimen reveals hemorrhagic cut surfaces. Sound Technician sections are submitted in 1 cassette. WE May 17, 2022 3:19 PM Gross examination performed at [facility], [facility] [place] [address] Performed By: #### S ####[facility] LABCLIA [id number] [address] STATES OF [facility] LABCLIA [id number] [address] OF [facility] [place] 05-16-2022 CADY Telephone (KADIE) BEN GUADALUPE ([id number]) 1935 M Date Time Provider Department 05/16/22 [...] Encounter Status:Closed by DELICIA FULLER on 05/16/[address] 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 CBC panel Auto (Bld)on 05-10 Erythrocyte distribution width (RBC) [Ratio] 14.1 % Normal 11.5-15.[address] [facility] Comment on above: Order Comment: Speci men Type: BLOOD SPECIMENOrdering Facility: [facility] Address: [address] [place] [address] Performed By: #### 5 8410-2 ####[facility] LABCLIA [id number] [facility] [id number] [place] [address] [place] Hematocrit (Bld) [Volume fraction] 38.9 % Low 39.0-51.[address] [facility] Comment on above: Order Comment: Speci men Type: BLOOD SPECIMENOrdering Facility: [facility] Address: [address] [place] [address] Performed By: #### 5 8410-2 ####[facility] LABCLIA [id number] [address] [place] Hemoglobin (Bld) [Mass/Vol] 12.2 g/dL Low 13.0-17.[address] [facility] Comment on above: Order Comment: Speci men Type: BLOOD SPECIMENOrdering Facility: [facility] Address: [address] [place] [address] Performed By: #### 5 8410-2 ####[facility] LABCLIA [id number] [address] OF [facility] MCH (RBC) [Entitic mass] 28.4 pg Normal 26.0-34.[address] [facility] Comment on above: Order Comment: Speci men Type: BLOOD SPECIMENOrdering Facility: [facility] Address: [address] [place], [place] [address] Performed By: #### 5 8410-2 ####[facility] LABCLIA [id number] [address] STATES OF [facility] MCHC (RBC) [Mass/Vol] 31.4 g/dL Normal 30.5-36.[address] [facility] Comment on above: Order Comment: Speci men Type: BLOOD SPECIMENOrdering Facility: [facility] Address: [address] [place], [place] [address] Performed By: #### 5 8410-2 ####[facility] LABCLIA [id number] [address] [place] MCV (RBC) [Entitic vol] 90.5 fL Normal 80.0-100.[address] [facility] Comment on above: Order Comment: Speci men Type: BLOOD SPECIMENOrdering Facility: [facility] Address: [address] Performed By: #### 5 8410-2 ####[facility] LABIA [id number] [place] [address] [place] Nucleated RBC (Bld) [#/Vol] 10*3/uL Normal <0.[address] [facility] Comment on above: Order Comment: Speci men Type: BLOOD SPECIMENOrdering Facility: [facility] Address: [address] Performed By: #### 5 8410-2 ####[facility] [id number] [place] [address] [place] Platelet mean volume (Bld) [Entitic vol] 10.9 fL Normal 9.0-12.[address] [facility] Comment on above: Order Comment: Speci men Type: BLOOD SPECIMENOrdering Facility: [facility] Address: [address] Performed By: #### 5 8410-2 ####[facility] LABIA [id number] [place] [address] [place] Platelets (Bld) [#/Vol] 135 10*3/uL Low 150-[address] [facility] Comment on above: Order Comment: Speci men Type: BLOOD SPECIMENOrdering Facility: [facility] Address: [address] [place] [address] Performed By: #### 5 8410-2 ####[facility] LABIA [id number] [place] [address] [place] RBC (Bld) [#/Vol] 4.30 10*6/uL Normal 4.20-6.00 [facility] Comment on above: Order Comment: Speci men Type: BLOOD SPECIMENOrdering Facility: [facility] Address: [address] [place], [place] [address] Performed By: #### 5 8410-2 ####[facility] LABCLIA [id number] [place] [address] [place] WBC (Bld) [#/Vol] 4.75 10*3/uL Normal 3.70-11.00 [facility] Comment on above: Order Comment: Speci men Type: BLOOD SPECIMENOrdering Facility: [facility] Address: [address] [place] [address] Performed By: #### 5 8410-2 ####[facility] LABCLIA [id number] [address] OF [facility] CONFIRM BLOOD TYPEon 022 ABO A Normal [facility] Comment on above: Order Comment: Speci men Type: BLOOD SPECIMENOrdering Facility: [facility] Address: [address] [place] [address] Performed By: #### C ONABO ####[facility] BLOOD BANKCLIA [id number] [place] [address] [place] Rh Nom (Bld) Negative Normal [facility] Comment on above: Order Comment: Speci men Type: BLOOD SPECIMENOrdering Facility: [facility] Address: [address] [place] [address] Performed By: #### C ONABO ####[facility] BLOOD BANKCLIA [id number] [place] [address] [place] Comprehensive metabolic 2000 panelon 05-10-2022 Albumin [Mass/Vol] 4.4 g/dL Normal 3.9-4.9 [facility] Comment on above: Order Comment: Speci men Type: BLOOD SPECIMENOrdering Facility: [facility] Address: [address] [place] [address] Performed By: #### 2 4323-8 ####[facility] LABCLIA [id number] [place] [address] [place] ALP [Catalytic activity/Vol] 54 U/L Normal 38-[address] [facility] Comment on above: Order Comment: Speci men Type: BLOOD SPECIMENOrdering Facility: [facility] Address: [address] Performed By: #### 2 4323-8 ####[facility] LABCLIA [id number] [address] [place] ALT [Catalytic activity/Vol] 55 U/L High 10-[address] [facility] Comment on above: Order Comment: Speci men Type: BLOOD SPECIMENOrdering Facility: [facility] Address: [address] [place] [address] Performed By: #### 2 4323-8 ####[facility] LABCLIA [id number] [place] [address] [place] Anion gap [Moles/Vol] 12 mmol/L Normal 9-[address] [facility] Comment on above: Order Comment: Speci men Type: BLOOD SPECIMENOrdering Facility: [facility] Address: [address] Performed By: #### 2 4323-8 ####[facility] LABCLIA [id number] [address] [place] AST [Catalytic activity/Vol] 27 U/L Normal 14-[address] [facility] Comment on above: Order Comment: Speci men Type: BLOOD SPECIMENOrdering Facility: [facility] Address: [address] Performed By: #### 2 4323-8 ####[facility] LABCLIA [id number] [place] [address] [place] Bilirubin [Mass/Vol] 0.3 mg/dL Normal 0.2-1.[address] [facility] Comment on above: Order Comment: Speci men Type: BLOOD SPECIMENOrdering Facility: [facility] Address: [address] Performed By: #### 2 4323-8 ####[facility] LABCLIA [id number] [place] [address] [place] Calcium [Mass/Vol] 9.1 mg/dL Normal 8.5-10.2 [facility] Comment on above: Order Comment: Speci men Type: BLOOD SPECIMENOrdering Facility: [facility] Address: [address] [place] [address] Performed By: #### 2 4323-8 ####[facility] LABCLIA [id number] [place] [address] [place] Chloride [Moles/Vol] 100 mmol/L Normal 97-[address] [facility] Comment on above: Order Comment: Speci men Type: BLOOD SPECIMENOrdering Facility: [facility] Address: [address] [place] [address] Performed By: #### 2 4323-8 ####[facility] LABCLIA [id number] [place] [address] [place] CO2 [Moles/Vol] 29 mmol/L Normal 22-[address] [facility] Comment on above: Order Comment: Speci men Type: BLOOD SPECIMENOrdering Facility: [facility] Address: [address] [place], [place] [address] Performed By: #### 2 4323-8 ####[facility] LABCLIA [id number] [place] [address] [place] Creatinine [Mass/Vol] 1.09 mg/dL Normal 0.73-1.[address] [facility] Comment on above: Order Comment: Speci men Type: BLOOD SPECIMENOrdering Facility: [facility] Address: [address] [place], [place] [address] Performed By: #### 2 4323-8 ####[facility] LABCLIA [id number] [place] [address] [place] ESTIMATED GLOMERULAR FILTRATION RATE 67 mL/min/1.73m??? Normal >=[address] [facility] Comment on above: Order Comment: Mayito borden Type: BLOOD SPECIMENOrdering Facility: [facility] Address: [address] [place] [address] Result Comment: [place] mated Glomerular Filtration Rate [...] actual GFR. Performed By: #### 2 4323-8 ####[facility] LABIA [id number] [place] [address] [place] Glucose [Mass/Vol] 217 mg/dL High 74-99 [facility] Comment on above: Order Comment: Mayito borden Type: BLOOD SPECIMENOrdering Facility: [facility] Address: [address] [address] Result Comment: The [place] Diabetes Association (ADA) provides guidance for cutoff [...] Standards of Medical Care in Diabetes 2016, [place] Diabetes Association. Diabetes Care. 2016.39(Suppl 1). Performed By: #### 2 4323-8 ####[facility] LABIA [id number] [place] [address] [place] Potassium [Moles/Vol] 3.2 mmol/L Low 3.7-5.[address] [facility] Comment on above: Order Comment: Mayito borden Type: BLOOD SPECIMENOrdering Facility: [facility] Address: [address] [id number] Performed By: #### 2 4323-8 ####[facility] LABCLIA [id number] [place] [address] [place] Protein [Mass/Vol] 6.4 g/dL Normal 6.3-8.0 [facility] Comment on above: Order Comment: Speci men Type: BLOOD SPECIMENOrdering Facility: [facility] Address: [address] [place] [address] Performed By: #### 2 4323-8 ####[facility] LABCLIA [id number] [place] [address] [place] Sodium [Moles/Vol] 141 mmol/L Normal 136-144 [facility] Comment on above: Order Comment: Speci men Type: BLOOD SPECIMENOrdering Facility: [facility] Address: [address] [place] [address] Performed By: #### 2 4323-8 ####[facility] LABCLIA [id number] [place] [address] [place] Urea nitrogen [Mass/Vol] 26 mg/dL High 9-[address] [facility] Comment on above: Order Comment: Speci men Type: BLOOD SPECIMENOrdering Facility: [facility] Address: [address] [place] [address] Performed By: #### 2 4323-8 ####[facility] LABIA [id number] [place] [address] [place] ECG COMPLETEon 05-10-2022 ECG COMPLETE Ventricular Rate : 7 6 BPM Atrial Rate : 76 BPM P-R Interval : 130 ms QRS Duration : 134 ms Q-T Interval : 442 ms QTC Calculation(Bazett) : 497 ms Calculated P [place] : 37 degrees Calculated R [place] : 64 degrees Calculated T [place] : -10 degrees NORMAL SINUS RHYTHM COMPLETE RIGHT BUNDLE BRANCH BLOCK INFERIOR T WAVE ABNORMALITY ABNORMAL ECG Confirmed by YENNI TANNER MD ([id number]) on 05/14/2022 7:11:13 PM NAME : BEN GUADALUPE PID : [id number] : 1935 Gender : Male Race : ORD : [id number] Procedure Date : May 10 2022 11:57:54 Edit Date : May 14 2022 19:11:14 Diagnosis: NORMAL SINUS RHYTHM COMPLETE RIGHT BUNDLE BRANCH BLOCK INFERIOR T WAVE ABNORMALITY ABNORMAL ECG Confirmed by YENNI TANNER MD ([id number]) on 05/14/2022 7:11:13 PM Test Reason : Location : 119 : A17 Overread By : YENNI TANNER MD Edited By : YENNI TANNER MD Referred By : TRISTIN WILCOX Acquired by : CHANELLE FRANKLIN [facility] HISTORY PHYSICALon HISTORY PHYSICAL HNO ID: [id number] Author: Afia Downing PA-C Service: ? 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 Size Machine Operator Type: HANDP Filed: 05/13/2022 10:05 AM [...] 02/18/2022 Chronic kidney disease, stage 4 (severe) ([facility]) 12/20/2021 Chronic obstructive pulmonary disease ([facility]) 11/27/2021 Deep vein thrombosis (DVT) ([facility]) 1989 LLE- unprovoked Dementia in other diseases classified elsewhere, unspecified severity, without behavioral disturbance, psychotic disturbance, mood disturbance, and anxiety ([facility]) 11/27/2021 Diabetes ([facility]) Diabetes mellitus ([facility]) 11/01/2021 Essential (primary) hypertension 08/13/2017 Gastroesophageal reflux disease with esophagitis 05/10/2022 History of DVT (deep vein thrombosis) 05/10/2022 History of primary malignant neoplasm of urinary bladder 04/22/2022 History of prostate cancer 08/01/2015 Hypothyroidism unspecified 07/10/2021 Intracranial hemorrhage ([facility]) 05/10/2022 Neuropathy PAF (paroxysmal atrial fibrillation) ([facility]) 03/18/2022 Parkinson's disease ([facility]) PONV (postoperative nausea and vomiting) Radiculopathy, cervical [...] capsule Take (more content not included)... Normal [facility] HbA1c (Bld)on 05-10-2022 Average glucose Estimated from glycated hemoglobin (Bld) [Mass/Vol] 151 mg/dL Normal [facility] Comment on above: Order Comment: Mayito [facility] Type: BLOOD SPECIMENOrdering Facility: [facility] Address: [address] [address] Result Comment: eAG: (Estimated average glucose) is a calculated value from HgbA1c and is malt liquors sales representative of the average blood glucose level in the last 2-3 month period. Performed By: #### 5 5454-3 ####[facility] LABCLIA [id number] [facility] [id number] [address] [place] HbA1c (Bld) [Mass fraction] 6.9 % High 4.3-5.[address] [facility] Comment on above: Order Comment: Mayito [facility] Type: BLOOD SPECIMENOrdering Facility: [facility] Address: [address] [address] Result Comment: [place] Diabetes Association guidelines indicate that patients with HgbA1c in the range 5.7-6.4% are at increased risk for development of diabetes, and intervention by lifestyle modification may be beneficial. HgbA1c greater or equal to 6.5% is considered diagnostic of diabetes. Performed By: #### 5 5454-3 ####[facility] LABCLIA [id number] [address] TYPE AND SCREEN,30 DAYon ABO A Normal [facility] Comment on above: Order Comment: Speci men Type: BLOOD SPECIMENOrdering Facility: [facility] Address: [address] [place] [address] Performed By: #### T SCR30 ####CC [facility] BLOOD BANKCLIA [id number] [address] OF [facility] HISTORICAL AB SCR STATUS Negative Normal [facility] Comment on above: Order Comment: Speci men Type: BLOOD SPECIMENOrdering Facility: [facility] Address: [address] [place] [address] Performed By: #### T SCR30 ####CC [facility] BLOOD BANKCLIA [id number] [address] Rh Nom (Bld) Negative Normal [facility] Comment on above: Order Comment: Speci men Type: BLOOD SPECIMENOrdering Facility: [facility] Address: [address] [place] [address] Performed By: #### T SCR30 ####CC 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 Telephone ([employer]) BEN GUADALUPE ([id number]) 1935 M Date Time Provider Department 04/25/22 TRISTIN RUIZ During your visit today, we recorded the following information about you: Delicia Fuller 04/25/2022 10:03 AM Signed The Patient's granddaughter ( Milly Guadalupe) is calling to confirm surgery date, get all testing scheduled for her grandfather. 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 Normal [facility] Flexible Sigmoidoscopyon Flexible sigmoidoscopy A30 Gastrointestinal [...] previous diet. Procedure Code(s): --- Professional --- 71044, Sigmoidoscopy, flexible; diagnostic, including collection of specimen(s) by brushing or washing, when performed (separate procedure) Diagnosis Code(s): --- Professional --- K64.3, Fourth degree hemorrhoids K62.1, Rectal polyp K92.1, Melena (includes Hematochezia) K57.30, Diverticulosis of large intestine without perforation or abscess without bleeding CPT copyright 2019 [place] [employer]. All rights reserved. The codes documented in this report are preliminary and upon enrollment eligibility representative review may be revised to meet current compliance requirements. Attending Participation: I personally performed the entire procedure. Scope In: Scope Out: Dr. Tristin Wilcox MD 04/17/2022 2:21:53 PM This report has been signed electronically. Number of Addenda: 0 Note Initiated On: 04/17/2022 1:38 PM Normal [facility] HISTORY PHYSICALon 2 HISTORY PHYSICAL HNO ID: [id number] Author: Tristin Wilcox MD, PhD Service: ? [...] PACC s (more content not included)... Normal [facility] SIGMOIDOSCOPYon 04-17-2022 [facility] POINT OF CARE GLUCOSEon 04-06 Glucose [Mass/Vol] 268 mg/dL Critically high 74-106 T [facility] Comment on above: Performed By: #### P OCGLUC #### [facility] [address] [place] [address] Dr. Mason Astudillo CBC AUTO DIFFon 04-11-2022 BASO # 0.0 103/ul Normal 0.0-0.1 [facility] Comment on above: Performed By: #### U A #### [facility] [address] [place] [address] Dr. Mason Astudillo Basophils/100 WBC (Bld) 0.4 % Normal 0.2-2.0 [facility] Comment on above: Performed By: #### U A #### [facility] [address] [place] [address] Dr. Mason Astudillo EO # 0.1 103/ul Normal 0.0-0.7 [facility] Comment on above: Performed By: #### U A #### [facility] [address] [address] [address] Mason Astudillo Eosinophils/100 WBC (Bld) 1.9 % Normal 0.9-7.0 [facility] Comment on above: Performed By: #### U A #### [facility] [address] [place] [address] Dr. Mason Astudillo Erythrocyte distribution width (RBC) [Ratio] 16.0 % Critically high 11.0-15.0 [facility] Comment on above: Performed By: #### U A #### [facility] [facility] [address] [place] [address] Dr. Mason Astudillo Hematocrit (Bld) [Volume fraction] 27.4 % Critically low 42.0-54.0 [facility] Comment on above: Performed By: #### U A #### [facility] [address] [address] [address] Mason Astudillo Hemoglobin (Bld) [Mass/Vol] 8.7 g/dL Critically low 14.0-18.0 [facility] Comment on above: Performed By: #### U A #### [facility] [address] [place] [address] Dr. Mason Astudillo IG # 0.03 10e3/ul Normal 0.00-0.03 [facility] Comment on above: Performed By: #### U A #### [facility] [address] [place] [address] Dr. Mason Astudillo IG % 0.6 % Critically high 0.0-0.5 [facility] Comment on above: Performed By: #### U A #### [facility] [address] [place] [address] Dr. Mason Astudillo LYMPH # 0.7 103/ul Critically low 1.2-3.8 [facility] Comment on above: Performed By: #### U A #### [facility] [address] [place] [address] Dr. Mason Astudillo Lymphocytes/100 WBC (Bld) 15.8 % Critically low 20.5-60.0 [facility] Comment on above: Performed By: #### U A #### [facility] [address] [place] [address] Dr. Mason Astudillo MANUAL DIFF REQ NO Normal [facility] Comment on above: Performed By: #### U A #### [facility] [address] [place] [address] Dr. Mason Astudillo MCH (RBC) [Entitic mass] 29.9 pg Normal 25.9-34.0 [facility] Comment on above: Performed By: #### U A #### [facility] [address] [place] [address] Dr. Mason Astudillo MCHC (RBC) [Mass/Vol] 31.8 g/dL Normal 29.9-35.2 [facility] Comment on above: Performed By: #### U A #### [facility] [address] [address] [address] Mason Astudillo MCV (RBC) [Entitic vol] 94.2 fL Critically high 80.0-94.0 [facility] Comment on above: Performed By: #### U A #### [facility] [address] [address] [address] Mason Astudillo MONO # 0.3 103/ul Normal 0.3-0.8 [facility] Comment on above: Performed By: #### U A #### [facility] [address] [address] [address] Mason Astudillo Monocytes/100 WBC (Bld) 6.9 % Normal 1.7-12.0 [facility] Comment on above: Performed By: #### U A #### [facility] [address] [address] [address] Mason Astudillo NEUT # 3.4 103/ul Normal 1.4-6.5 [facility] Comment on above: Performed By: #### U A #### [facility] [address] [address] [address] Mason Astudillo Neutrophils/100 WBC (Bld) 74.4 % Normal 43.0-75.0 [facility] Comment on above: Performed By: #### U A #### [facility] [address] [address] [address] Mason Astudillo Platelet mean volume (Bld) [Entitic vol] 10.6 fL Normal 9.5-13.5 [facility] Comment on above: Performed By: #### U A #### [facility] [address] [address] [address] Mason Astudillo PLT 117 103/ul Critically low 150-450 [facility] Comment on above: Performed By: #### U A #### [facility] [address] [address] [address] Mason Astudillo RBC 2.91 106/ul Critically low 4.70-6.10 [facility] Comment on above: Performed By: #### U A #### [facility] [address] [place], [place] [address] Dr. Mason Astudillo WBC 4.6 103/ul Normal 4.0-11.0 [facility] Comment on above: Performed By: #### U A #### [facility] [address] [place], [place] [address] Dr. Mason Astudillo CARDIAC STRESS TESTon 2021 [...] dictated separately by Radiology. Normal [facility] NM STRESS/REST MULTIon 03-26 NM STRESS/REST MULTI Patient: BEN GUADALUPE Exam Date: 03/26/2022 : 1935 Gender:M Ordering : DR KAVITA DANIELLE M.D. Admission #: [id number] Family : Order #: [id number] CLICK HERE TO VIEW EXAM RADIOLOGY REPORT [...] on 03/27/2022 at 08:14 Normal [facility] Orders Onlyon 03-19-2022 Orders Only [id number] Ben Guadalupe 1935 M Date Provider Department Center 03/19/2022 ERIC MEJIAS [facility] Family History Problem Relation Age of Onset Heart failure Mother Prostate cancer Father Coronary artery disease Brother Prostate cancer Brother Family Status - Relation Status Age at Mother Father Brother Normal [facility] CBC AUTO DIFFon 03-18-2022 BASO # 0.0 103/ul Normal 0.0-0.1 [facility] Comment on above: Performed By: #### P OCGLUC #### [facility] [address] [place] [address] Dr. Mason Astudillo Basophils/100 WBC (Bld) 0.5 % Normal 0.2-2.0 [facility] Comment on above: Performed By: #### P OCGLUC #### [facility] [address] [place] [address] Dr. Mason Astudillo EO # 0.1 103/ul Normal 0.0-0.7 [facility] Comment on above: Performed By: #### P OCGLUC #### [facility] [address] [place] [address] Dr. Mason Astudillo Eosinophils/100 WBC (Bld) 2.3 % Normal 0.9-7.0 [facility] Comment on above: Performed By: #### P OCGLUC #### [facility] [address] [place] [address] Dr. Mason Astudillo Erythrocyte distribution width (RBC) [Ratio] 17.2 % Critically high 11.0-15.0 [facility] Comment on above: Performed By: #### P OCGLUC #### [facility] [address] [place] [address] Dr. Mason Astudillo Hematocrit (Bld) [Volume fraction] 43.9 % Normal 42.0-54.0 [facility] Comment on above: Performed By: #### P OCGLUC #### [facility] [address] [place] [address] Dr. Mason Astudillo Hemoglobin (Bld) [Mass/Vol] 14.1 g/dL Normal 14.0-18.0 [facility] Comment on above: Performed By: #### P OCGLUC #### [facility] [address] [place] [address] Dr. Mason Astudillo IG # 0.04 10e3/ul Critically high 0.00-0.03 [facility] Comment on above: Performed By: #### P OCGLUC #### [facility] [address] [place] [address] Dr. Mason Astudillo IG % 0.7 % Critically high 0.0-0.5 [facility] Comment on above: Performed By: #### P OCGLUC #### [facility] [address] [place] [address] Dr. Mason Astudillo LYMPH # 1.1 103/ul Critically low 1.2-3.8 [facility] Comment on above: Performed By: #### P OCGLUC #### [facility] [address] [place] [address] Dr. Mason Astudillo Lymphocytes/100 WBC (Bld) 18.3 % Critically low 20.5-60.0 [facility] Comment on above: Performed By: #### P OCGLUC #### [facility] [address] [place] [address] Dr. Mason Astudillo MANUAL DIFF REQ NO Normal [facility] Comment on above: Performed By: #### P OCGLUC #### [facility] [address] [place] [address] Dr. Mason Astudillo MCH (RBC) [Entitic mass] 29.3 pg Normal 25.9-34.0 [facility] Comment on above: Performed By: #### P OCGLUC #### [facility] [address] [address] [address] Mason Astudillo MCHC (RBC) [Mass/Vol] 32.1 g/dL Normal 29.9-35.2 [facility] Comment on above: Performed By: #### P OCGLUC #### [facility] [address] [place] [address] Dr. Mason Astudillo MCV (RBC) [Entitic vol] 91.1 fL Normal 80.0-94.0 [facility] Comment on above: Performed By: #### P OCGLUC #### [facility] [address] [place] [address] Dr. Mason Astudillo MONO # 0.5 103/ul Normal 0.3-0.8 [facility] Comment on above: Performed By: #### P OCGLUC #### [facility] [address] [place] [address] Dr. Mason Astudillo Monocytes/100 WBC (Bld) 7.7 % Normal 1.7-12.0 [facility] Comment on above: Performed By: #### P OCGLUC #### [facility] [address] [place] [address] Dr. Mason Astudillo NEUT # 4.3 103/ul Normal 1.4-6.5 [facility] Comment on above: Performed By: #### P OCGLUC #### [facility] [address] [place] [address] Dr. Mason Astudillo Neutrophils/100 WBC (Bld) 70.5 % Normal 43.0-75.0 [facility] Comment on above: Performed By: #### P OCGLUC #### [facility] [address] [place] [address] Dr. Mason Astudillo Platelet mean volume (Bld) [Entitic vol] 9.9 fL Normal 9.5-13.5 [facility] Comment on above: Performed By: #### P OCGLUC #### [facility] [address] [place] [address] Dr. Mason Astudillo PLT 130 103/ul Critically low 150-450 [facility] Comment on above: Performed By: #### P OCGLUC #### [facility] [address] [address] [address] Mason Astudillo RBC 4.82 106/ul Normal 4.70-6.10 [facility] Comment on above: Performed By: #### P OCGLUC #### [facility] [address] [address] [address] Mason Astudillo WBC 6.1 103/ul Normal 4.0-11.0 [facility] Comment on above: Performed By: #### P OCGLUC #### [facility] [address] [address] [address] Mason Astudillo Office Visiton 03-18-2022 Follow-up visit [id number] Ben Guadalupe 1935 M Date Provider Department Center 03/18/2022 KAVITA RITTER [facility] Family History Problem Relation Age of Onset Heart failure Mother Prostate cancer Father Coronary artery disease Brother Prostate cancer Brother Family Status - Relation Status Age at Mother Father Brother Level of Service:02273 ND OFFICE/OUTPATIENT ESTABLISHED MOD MDM 30-39 MIN Reason for Visit and Comments: Atrial Fibrillation [80] Coronary Artery Disease [187] Hypertension [807593] left ventricular hypertrophy [Other] Normal [facility] PROF CHEM 8 (BAS METB)on Anion gap [Moles/Vol] 10.8 mmol/L Normal [facility] Comment on above: Performed By: #### U A #### [facility] [address] [address] [address] Mason Astudillo Calcium [Mass/Vol] 8.8 mg/dL Normal 8.5-10.1 [facility] Comment on above: Performed By: #### U A #### [facility] [address] [address] [address] Mason Astudillo Chloride [Moles/Vol] 103 mmol/L Normal 98-107 [facility] Comment on above: Performed By: #### U A #### [facility] [address] [address] [address] Mason Astudillo CO2 [Moles/Vol] 29.9 mmol/L Normal 21.0-32.0 [facility] Comment on above: Performed By: #### U A #### [facility] [address] [address] [address] Mason Astudillo Creatinine [Mass/Vol] 1.20 mg/dL Normal 0.70-1.30 [facility] Comment on above: Performed By: #### U A #### [facility] [address] [address] [address] Mason Astudillo EGFR-AF SAO TOMEAN >60 Normal >=60 [facility] Comment on above: Performed By: #### U A #### [facility] [address] [address] [address] Mason Astudillo EGFR-NON AF SAO TOMEAN 58 mL/min/1.73m2 Critically low >=60 [facility] Comment on above: Performed By: #### U A #### [facility] [address] [address] [address] Mason Astudillo Glucose [Mass/Vol] 202 mg/dL Critically high 74-106 T [facility] Comment on above: Performed By: #### U A #### [facility] [address] [address] [address] Mason Astudillo Potassium [Moles/Vol] 3.7 mmol/L Normal 3.5-5.1 [facility] Comment on above: Performed By: #### U A #### [facility] [address] [address] [address] Mason Astudillo Sodium [Moles/Vol] 140 mmol/L Normal 136-145 [facility] Comment on above: Performed By: #### U A #### [facility] [address] [address] [address] Mason Astudillo Urea nitrogen [Mass/Vol] 22.0 mg/dL Critically high 7.0-18.0 [facility] Comment on above: Performed By: #### U A #### [facility] [address] [address] [address] Mason Astudillo Urea nitrogen/Creatinine [Mass ratio] 18.3 mg/mg Normal [facility] Comment on above: Performed By: #### U A #### [facility] [address] [address] [address] Mason Astudillo Abstracton 03-16-2022 Abstract [id number] Ben Guadalupe 1935 M Date Provider Department Center 03/16/2022 Hilario-MONE SHIPMAN [facility] Family History Problem Relation Age of Onset Heart failure Mother Prostate cancer Father Coronary artery disease Brother Prostate cancer Brother Family Status - Relation Status Age at Mother Father Brother Normal [facility] XR KUB 1 VIEWon 02-18-2022 XR [...] BRISA SALAS Date: 2022-02-18 15:45 Normal [facility] VIT D 25-OH LABCORPon 2021 Vitamin D, 25-Hydroxy 27.3 ng/mL Critically low 30.0-100.0 [facility] Comment on above: Result Comment: Masha min D deficiency has been defined by the [place] of [employer] and an Endocrine Society practice guideline as a level of serum 25-OH vitamin D less than 20 ng/mL (1,2). The Endocrine Society went on to further define vitamin D insufficiency as a level between 21 and 29 ng/mL (2). 1. IOM ([place] of [employer]). 2010. Dietary reference intakes for calcium and D. [place]: The National Academies Press. 2. Hemalatha BOYER, Gunnar CAMPOS, Kamla ROUSE, et al. Evaluation, treatment, and prevention of vitamin D deficiency: an Endocrine Society clinical practice guideline. JCEM. 2010; 96(7):1911-30. Performed By: #### A 1C #### [facility] [address] [address] [address] Mason Astudillo CBC AUTO DIFFon 02-06-2022 BASO # 0.0 103/ul Normal 0.0-0.1 [facility] Comment on above: Performed By: #### A 1C #### [facility] [address] [address] [address] Mason Astudillo Basophils/100 WBC (Bld) 0.4 % Normal 0.2-2.0 [facility] Comment on above: Performed By: #### A 1C #### [facility] [address] [address] [address] Mason Astudillo EO # 0.1 103/ul Normal 0.0-0.7 [facility] Comment on above: Performed By: #### A 1C #### [facility] [address] [address] [address] Mason Astudillo Eosinophils/100 WBC (Bld) 2.5 % Normal 0.9-7.0 [facility] Comment on above: Performed By: #### A 1C #### [facility] [address] [address] [address] Mason Astudillo Erythrocyte distribution width (RBC) [Ratio] 16.6 % Critically high 11.0-15.0 [facility] Comment on above: Performed By: #### A 1C #### [facility] [address] [address] [address] Mason Astudillo Hematocrit (Bld) [Volume fraction] 26.8 % Critically low 42.0-54.0 [facility] Comment on above: Performed By: #### A 1C #### [facility] [address] [address] [address] Mason Astudillo Hemoglobin (Bld) [Mass/Vol] 8.4 g/dL Critically low 14.0-18.0 [facility] Comment on above: Performed By: #### A 1C #### [facility] [address] [address] [address] Mason Astudillo IG # 0.12 10e3/ul Critically high 0.00-0.03 [facility] Comment on above: Performed By: #### A 1C #### [facility] [address] [place] [address] Dr. Mason Astudillo IG % 2.5 % Critically high 0.0-0.5 [facility] Comment on above: Performed By: #### A 1C #### [facility] [address] [place] [address] Dr. Mason Astudillo LYMPH # 0.9 103/ul Critically low 1.2-3.8 [facility] Comment on above: Performed By: #### A 1C #### [facility] [address] [place] [address] Dr. Mason Astudillo Lymphocytes/100 WBC (Bld) 18.1 % Critically low 20.5-60.0 [facility] Comment on above: Performed By: #### A 1C #### [facility] [address] [place] [address] Dr. Mason Astudillo MANUAL DIFF REQ NO Normal [facility] Comment on above: Performed By: #### A 1C #### [facility] [address] [place] [address] Dr. Mason Astudillo MCH (RBC) [Entitic mass] 27.7 pg Normal 25.9-34.0 [facility] Comment on above: Performed By: #### A 1C #### [facility] [address] [place] [address] Dr. Mason Astudillo MCHC (RBC) [Mass/Vol] 31.3 g/dL Normal 29.9-35.2 [facility] Comment on above: Performed By: #### A 1C #### [facility] [address] [place] [address] Dr. Mason Astudillo MCV (RBC) [Entitic vol] 88.4 fL Normal 80.0-94.0 [facility] Comment on above: Performed By: #### A 1C #### [facility] [address] [place] [address] Dr. Mason Astudillo MONO # 0.4 103/ul Normal 0.3-0.8 [facility] Comment on above: Performed By: #### A 1C #### [facility] [address] [place] [address] Dr. Mason Astudillo Monocytes/100 WBC (Bld) 9.1 % Normal 1.7-12.0 [facility] Comment on above: Performed By: #### A 1C #### [facility] [address] [place] [address] Dr. Mason Astudillo NEUT # 3.2 103/ul Normal 1.4-6.5 [facility] Comment on above: Performed By: #### A 1C #### [facility] [address] [place] [address] Dr. Mason Astudillo Neutrophils/100 WBC (Bld) 67.4 % Normal 43.0-75.0 [facility] Comment on above: Performed By: #### A 1C #### [facility] [address] [place] [address] Dr. Mason Astudillo Platelet mean volume (Bld) [Entitic vol] 10.2 fL Normal 9.5-13.5 [facility] Comment on above: Performed By: #### A 1C #### [facility] [address] [place] [address] Dr. Mason Astudillo PLT 135 103/ul Critically low 150-450 [facility] Comment on above: Performed By: #### A 1C #### [facility] [address] [place] [address] Dr. Mason Astudillo RBC 3.03 106/ul Critically low 4.70-6.10 [facility] Comment on above: Performed By: #### A 1C #### [facility] [address] [place] [address] Dr. Mason Astudillo WBC 4.7 103/ul Normal 4.0-11.0 [facility] Comment on above: Performed By: #### A 1C #### [facility] [address] [place] [address] Dr. Mason Astudillo GLYCOHEMOGLOBIN A1Con 2021 ADA RECOMMENDATION SEE BELOW Normal [facility] Comment on above: Result Comment: ADA RECOMMENDED LIMIT 4.0 - 6.0 ADA THERAPEUTIC TARGET < 7.0 ACTION SUGGESTED > 7.0 Performed By: #### A 1C #### [facility] [address] [address] [address] Mason Astudillo Glucose [Mass/Vol] 148 mg/dL Normal [facility] Comment on above: Performed By: #### A 1C #### [facility] [address] [place] [address] Dr. Mason Astudillo HbA1c (Bld) [Mass fraction] 6.8 % Critically high 4.5-6.2 [facility] Comment on above: Performed By: #### A 1C #### [facility] [address] [place] [address] Dr. Mason Astudillo POINT OF CARE GLUCOSEon 08 Glucose [Mass/Vol] 157 mg/dL Critically high 74-106 T [facility] Comment on above: Performed By: #### P OCGLUC #### [facility] [address] [place] [address] Dr. Mason Astudillo PROF CHEM 8 (BAS METB)on Anion gap [Moles/Vol] 10.5 mmol/L Normal [facility] Comment on above: Performed By: #### B MP #### [facility] [address] [place] [address] Dr. Mason Astudillo Calcium [Mass/Vol] 8.0 mg/dL Critically low 8.5-10.1 Th [facility] Comment on above: Performed By: #### B MP #### [facility] [address] [place] [address] Dr. Mason Astudillo Chloride [Moles/Vol] 105 mmol/L Normal 98-107 [facility] Comment on above: Performed By: #### B MP #### [facility] [address] [place] [address] Dr. Mason Astudillo CO2 [Moles/Vol] 27.2 mmol/L Normal 21.0-32.0 [facility] Comment on above: Performed By: #### B MP #### [facility] [address] [place] [address] Dr. Mason Astudillo Creatinine [Mass/Vol] 1.11 mg/dL Normal 0.70-1.30 [facility] Comment on above: Performed By: #### B MP #### [facility] [address] [address] [address] Mason Astudillo EGFR-AF SAO TOMEAN >60 Normal >=60 [facility] Comment on above: Performed By: #### B MP #### [facility] [address] [address] [address] Mason Astudillo EGFR-NON AF SAO TOMEAN >60 Normal >=60 [facility] Comment on above: Performed By: #### B MP #### [facility] [address] [place] [address] Dr. Mason Astudillo Glucose [Mass/Vol] 174 mg/dL Critically high 74-106 T [facility] Comment on above: Performed By: #### B MP #### [facility] [address] [place] [address] Dr. Mason Astudillo Potassium [Moles/Vol] 3.7 mmol/L Normal 3.5-5.1 [facility] Comment on above: Performed By: #### B MP #### [facility] [address] [place] [address] Dr. Mason Astudillo Sodium [Moles/Vol] 139 mmol/L Normal 136-145 [facility] Comment on above: Performed By: #### B MP #### [facility] [address] [place] [address] Dr. Mason Astudillo Urea nitrogen [Mass/Vol] 19.0 mg/dL Critically high 7.0-18.0 [facility] Comment on above: Performed By: #### B MP #### [facility] [address] [place] [address] Dr. Mason Astudillo Urea nitrogen/Creatinine [Mass ratio] 17.1 mg/mg Normal [facility] Comment on above: Performed By: #### B MP #### [facility] [address] [place] [address] Dr. Mason Astudillo CBC W MANUAL DIFFon 02-06-20 22 ATYPICAL LYMPH # Normal [facility] Comment on above: Performed By: #### C BC #### [facility] [address] [place] [address] Dr. Mason Astudillo ATYPICAL LYMPH % Normal [facility] Comment on above: Performed By: #### C BC #### [facility] [address] [place] [address] Dr. Mason Astudillo BAND # 0.0 103/ul Normal 0.0-0.3 [facility] Comment on above: Performed By: #### C BC #### [facility] [address] [place] [address] Dr. Mason Astudillo BAND % 0 % Normal 0-5 [facility] Comment on above: Performed By: #### C BC #### [facility] [address] [place] [address] Dr. Mason Astudillo BASOM # 0.06 103/ul Normal 0.00-0.10 [facility] Comment on above: Performed By: #### C BC #### [facility] [address] [place] [address] Dr. Mason Astudillo BASOM % 1.0 % Normal 0.2-2.0 [facility] Comment on above: Performed By: #### C BC #### [facility] [address] [place] [address] Dr. Mason Astudillo BLAST # Normal [facility] Comment on above: Performed By: #### C BC #### [facility] [address] [place] [address] Dr. Mason Astudillo BLAST % Normal [facility] Comment on above: Performed By: #### C BC #### [facility] [address] [place] [address] Dr. Mason Astudillo CORRECTED WBC Normal 4.0-11.0 [facility] Comment on above: Performed By: #### C BC #### [facility] [address] [place] [address] Dr. Mason Astudillo EOS # 0.17 103/ul Normal 0.00-0.70 [facility] Comment on above: Performed By: #### C BC #### [facility] [address] [place] [address] Dr. Mason Astudillo EOS% 3.0 % Normal 0.9-7.0 [facility] Comment on above: Performed By: #### C BC #### [facility] [address] [address] [address] Mason Astudillo HCT 27.4 % Critically low 42.0-54.0 [facility] Comment on above: Performed By: #### C BC #### [facility] [address] [address] [address] Mason Astudillo HGB 8.6 g/dl Critically low 14.0-18.0 [facility] Comment on above: Performed By: #### C BC #### [facility] [address] [address] [address] Mason Astudillo LYMPHM # 0.56 103/ul Critically low 1.20-3.80 [facility] Comment on above: Performed By: #### C BC #### [facility] [address] [place] [address] Dr. Mason Astudillo LYMPHM% 10.0 % Critically low 20.5-60.0 [facility] Comment on above: Performed By: #### C BC #### [facility] [address] [place] [address] Dr. Mason Astudillo MCH 27.7 pg Normal 25.9-34.0 [facility] Comment on above: Performed By: #### C BC #### [facility] [address] [place] [address] Dr. Mason Astudillo MCHC 31.4 g/dl Normal 29.9-35.2 [facility] Comment on above: Performed By: #### C BC #### [facility] [address] [place] [address] Dr. Mason Astudillo MCV 88.1 fL Normal 80.0-94.0 [facility] Comment on above: Performed By: #### C BC #### [facility] [address] [place] [address] Dr. Mason Astudillo METAMYELOCYTE # Normal [facility] Comment on above: Performed By: #### C BC #### [facility] [address] [place] [address] Dr. Mason Astudillo METAMYELOCYTE % Normal [facility] Comment on above: Performed By: #### C BC #### [facility] [address] [place] [address] Dr. Mason Astudillo MONOM# 0.34 103/ul Normal 0.30-0.80 [facility] Comment on above: Performed By: #### C BC #### [facility] [address] [place] [address] Dr. Mason Astudillo MONOM% 6.0 % Normal 1.7-12.0 [facility] Comment on above: Performed By: #### C BC #### [facility] [address] [place] [address] Dr. Mason Astudillo MPV 10.5 fL Normal 9.5-13.5 [facility] Comment on above: Performed By: #### C BC #### [facility] [address] [place] [address] Dr. Mason Astudillo MYELOCYTE # Normal [facility] Comment on above: Performed By: #### C BC #### [facility] [address] [place] [address] Dr. Mason Astudillo MYELOCYTE % Normal [facility] Comment on above: Performed By: #### C BC #### [facility] [address] [place] [address] Dr. Mason Astudillo NRBC Normal [facility] Comment on above: Performed By: #### C BC #### [facility] [address] [place] [address] Dr. Mason Astudillo OVALOCYTES 1+ Normal [facility] Comment on above: Performed By: #### C BC #### [facility] [address] [place] [address] Dr. Mason Astudillo PLT 124 103/ul Critically low 150-450 [facility] Comment on above: Performed By: #### C BC #### [facility] [address] [place] [address] Dr. Mason Astudillo RBC 3.11 106/ul Critically low 4.70-6.10 [facility] Comment on above: Performed By: #### C BC #### [facility] [address] [address] [address] Mason Astudillo RDW 15.9 % Critically high 11.0-15.0 [facility] Comment on above: Performed By: #### C BC #### [facility] [address] [place] [address] Dr. Mason Astudillo SEG # 4.48 103/ul Normal 1.40-6.50 [facility] Comment on above: Performed By: #### C BC #### [facility] [address] [address] [address] Mason Astudillo SEG % 80.0 % Critically high 43.0-75.0 [facility] Comment on above: Performed By: #### C BC #### [facility] [address] [place] [address] Dr. Mason Astudillo WBC 5.6 103/ul Normal 4.0-11.0 [facility] Comment on above: Performed By: #### C BC #### [facility] [address] [place] [address] Dr. Mason Astudillo POINT OF CARE GLUCOSEon Glucose [Mass/Vol] 260 mg/dL Critically high 74-106 [facility] Comment on above: Performed By: #### P OCGLUC #### [facility] [address] [place] [address] Dr. Mason Astudillo Glucose [Mass/Vol] 165 mg/dL Critically high -106 [facility] Comment on above: Performed By: #### A 1C #### [facility] [address] [place] [address] Dr. Mason Astudillo Glucose [Mass/Vol] 147 mg/dL Critically high 74-106 [facility] Comment on above: Performed By: #### C BC #### [facility] [address] [place] [address] Dr. Mason Astudillo PROF CHEM 8 (BAS METB)on Anion gap [Moles/Vol] 11.0 mmol/L Normal [facility] Comment on above: Performed By: #### U A #### [facility] [address] [place], [place] [id number] Dr. Mason Astudillo Calcium [Mass/Vol] 8.0 mg/dL Critically low 8.5-10.1 Th e [facility] Comment on above: Performed By: #### U A #### [facility] [address] [place] [address] Dr. Mason Astudillo Chloride [Moles/Vol] 106 mmol/L Normal 98-107 [facility] Comment on above: Performed By: #### U A #### [facility] [address] [place] [address] Dr. Mason Astudillo CO2 [Moles/Vol] 26.7 mmol/L Normal 21.0-32.0 [facility] Comment on above: Performed By: #### U A #### [facility] [address] [place] [address] Dr. Mason Astudillo Creatinine [Mass/Vol] 1.22 mg/dL Normal 0.70-1.30 [facility] Comment on above: Performed By: #### U A #### [facility] [address] [place] [address] Dr. Mason Astudillo EGFR-AF SAO TOMEAN >60 Normal >=60 [facility] Comment on above: Performed By: #### U A #### [facility] [address] [place] [address] Dr. Mason Astudillo EGFR-NON AF SAO TOMEAN 56 mL/min/1.73m2 Critically low >=60 [facility] Comment on above: Performed By: #### U A #### [facility] [address] [place] [address] Dr. Mason Astudillo Glucose [Mass/Vol] 147 mg/dL Critically high 74-106 [facility] Comment on above: Performed By: #### U A #### [facility] [address] [place] [address] Dr. Mason Astudillo Potassium [Moles/Vol] 3.7 mmol/L Normal 3.5-5.1 [facility] Comment on above: Performed By: #### U A #### [facility] [address] [place] [address] Dr. Mason Astudillo Sodium [Moles/Vol] 140 mmol/L Normal 136-145 [facility] Comment on above: Performed By: #### U A #### [facility] [address] [place] [address] Dr. Mason Astudillo Urea nitrogen [Mass/Vol] 17.0 mg/dL Normal 7.0-18.0 [facility] Comment on above: Performed By: #### U A #### [facility] [address] [place] [address] Dr. Mason Astudillo Urea nitrogen/Creatinine [Mass ratio] 13.9 mg/mg Normal [facility] Comment on above: Performed By: #### U A #### [facility] [address] [place] [address] Dr. Mason Astudillo CBC AUTO DIFFon 02-04-2022 BASO # 0.0 103/ul Normal 0.0-0.1 [facility] Comment on above: Performed By: #### C BC #### [facility] [address] [place] [address] Dr. Mason Astudillo Basophils/100 WBC (Bld) 0.2 % Normal 0.2-2.0 [facility] Comment on above: Performed By: #### C BC #### [facility] [address] [place] [address] Dr. Mason Astudillo EO # 0.2 103/ul Normal 0.0-0.7 [facility] Comment on above: Performed By: #### C BC #### [facility] [address] [place] [address] Dr. Mason Astudillo Eosinophils/100 WBC (Bld) 3.4 % Normal 0.9-7.0 [facility] Comment on above: Performed By: #### C BC #### [facility] [address] [place] [address] Dr. Mason Astudillo Erythrocyte distribution width (RBC) [Ratio] 15.6 % Critically high 11.0-15.0 [facility] Comment on above: Performed By: #### C BC #### [facility] [address] [place] [address] Dr. Mason Astudillo Hematocrit (Bld) [Volume fraction] 26.1 % Critically low 42.0-54.0 [facility] Comment on above: Performed By: #### C BC #### [facility] [address] [place] [address] Dr. Mason Astudillo Hemoglobin (Bld) [Mass/Vol] 8.2 g/dL Critically low 14.0-18.0 [facility] Comment on above: Performed By: #### C BC #### [facility] [address] [address] [address] Mason Astudillo IG # 0.06 10e3/ul Critically high 0.00-0.03 [facility] Comment on above: Performed By: #### C BC #### [facility] [address] [place] [address] Dr. Mason Astudillo IG % 1.4 % Critically high 0.0-0.5 [facility] Comment on above: Performed By: #### C BC #### [facility] [address] [place] [address] Dr. Mason Astudillo LYMPH # 0.6 103/ul Critically low 1.2-3.8 [facility] Comment on above: Performed By: #### C BC #### [facility] [address] [place] [address] Dr. Mason Astudillo Lymphocytes/100 WBC (Bld) 14.3 % Critically low 20.5-60.0 [facility] Comment on above: Performed By: #### C BC #### [facility] [address] [place] [address] Dr. Mason Astudillo MANUAL DIFF REQ NO Normal [facility] Comment on above: Performed By: #### C BC #### [facility] [address] [place] [address] Dr. Mason Astudillo MCH (RBC) [Entitic mass] 27.4 pg Normal 25.9-34.0 [facility] Comment on above: Performed By: #### C BC #### [facility] [address] [place] [address] Dr. Mason Astudillo MCHC (RBC) [Mass/Vol] 31.4 g/dL Normal 29.9-35.2 [facility] Comment on above: Performed By: #### C BC #### [facility] [address] [place] [address] Dr. Mason Astudillo MCV (RBC) [Entitic vol] 87.3 fL Normal 80.0-94.0 [facility] Comment on above: Performed By: #### C BC #### [facility] [address] [place] [address] Dr. Mason Astudillo MONO # 0.5 103/ul Normal 0.3-0.8 [facility] Comment on above: Performed By: #### C BC #### [facility] [address] [place] [address] Dr. Mason Astudillo Monocytes/100 WBC (Bld) 10.4 % Normal 1.7-12.0 [facility] Comment on above: Performed By: #### C BC #### [facility] [address] [place] [address] Dr. Mason Astudillo NEUT # 3.1 103/ul Normal 1.4-6.5 [facility] Comment on above: Performed By: #### C BC #### [facility] [address] [place] [address] Dr. Mason Astudillo Neutrophils/100 WBC (Bld) 70.3 % Normal 43.0-75.0 [facility] Comment on above: Performed By: #### C BC #### [facility] [address] [place] [address] Dr. Mason Astudillo Platelet mean volume (Bld) [Entitic vol] 10.5 fL Normal 9.5-13.5 [facility] Comment on above: Performed By: #### C BC #### [facility] [address] [place] [address] Dr. Mason Astudillo PLT 105 103/ul Critically low 150-450 [facility] Comment on above: Performed By: #### C BC #### [facility] [address] [place] [address] Dr. Mason Astudillo RBC 2.99 106/ul Critically low 4.70-6.10 [facility] Comment on above: Performed By: #### C BC #### [facility] [address] [place], [place] [address] Dr. Mason Astudillo WBC 4.4 103/ul Normal 4.0-11.0 [facility] Comment on above: Performed By: #### C BC #### [facility] [address] [place], [place] [address] Dr. Mason Astudillo ECHOCARDIO M/2D COMPLETEon 0 02-04-2022 ECHOCARDIO M/2D COMPLETE Patient: BEN GUADALUPE Exam Date: 02/04/2022 : 1935 Gender:M Ordering : DR COLTON CASTELLON . Admission #: [id number] Family : SHAIKH Samantha ELLIOTT . Order #: [id number] CLICK HERE TO VIEW EXAM ECHOCARDIOGRAM REPORT [...] on 02/04/2022 at 13:39 Normal [facility] POINT OF CARE GLUCOSEon Glucose [Mass/Vol] 262 mg/dL Critically high -106 [facility] Comment on above: Performed By: #### C BC #### [facility] [address] [address] [address] Mason Astudillo Glucose [Mass/Vol] 167 mg/dL Critically high [facility] Comment on above: Performed By: #### C BC #### [facility] [address] [address] [address] Mason Astudillo Glucose [Mass/Vol] 158 mg/dL Critically high [facility] Comment on above: Performed By: #### P OCGLUC #### [facility] [address] [address] [address] Mason Astudillo PRBC LEUKOREDUCEDon 02-05-20 22 ABO and Rh group Nom (Bld) Cross Match Result Compatible Unit Blood Type A Neg Unit Number [id number] Status Information Transfused Product ID Red Blood Cells Product Code [id number] Cross Match Result Compatible Unit Blood Type A Neg Unit Number [id number] Status Information Transfused Product ID Red Blood Cells Product Code [id number] [facility] Comment on above: Performed By: #### P SAD #### [facility] [address] [address] [address] Mason Astudillo PROF CHEM 8 (BAS METB)on Anion gap [Moles/Vol] 11.5 mmol/L [facility] Comment on above: Performed By: #### C BC #### [facility] [address] [address] [address] Mason Astudillo Calcium [Mass/Vol] 7.4 mg/dL Critically low 8.5-10.1 [facility] Comment on above: Performed By: #### C BC #### [facility] [address] [address] [address] Mason Astudillo Chloride [Moles/Vol] 106 mmol/L Normal 98-107 [facility] Comment on above: Performed By: #### C BC #### [facility] [address] [address] [address] Mason Astudillo CO2 [Moles/Vol] 25.8 mmol/L Normal 21.0-32.0 [facility] Comment on above: Performed By: #### C BC #### [facility] [address] [address] [address] Mason Astudillo Creatinine [Mass/Vol] 1.07 mg/dL Normal 0.70-1.30 [facility] Comment on above: Performed By: #### C BC #### [facility] [address] [place] [address] Dr. Mason Astudillo EGFR-AF SAO TOMEAN >60 Normal >=60 [facility] Comment on above: Performed By: #### C BC #### [facility] [address] [address] [address] Mason Astudillo EGFR-NON AF SAO TOMEAN >60 Normal >=60 [facility] Comment on above: Performed By: #### C BC #### [facility] [address] [place] [address] Dr. Mason Astudillo Glucose [Mass/Vol] 165 mg/dL Critically high 74-106 [facility] Comment on above: Performed By: #### C BC #### [facility] [address] [address] [address] Mason Astudillo Potassium [Moles/Vol] 3.3 mmol/L Critically low 3.5-5.1 [facility] Comment on above: Performed By: #### C BC #### [facility] [address] [address] [address] Mason Astudillo Sodium [Moles/Vol] 140 mmol/L Normal 136-145 [facility] Comment on above: Performed By: #### C BC #### [facility] [address] [place] [address] Dr. Mason Astudillo Urea nitrogen [Mass/Vol] 19.0 mg/dL Critically high 7.0-18.0 [facility] Comment on above: Performed By: #### C BC #### [facility] [address] [place] [address] Dr. Mason Astudillo Urea nitrogen/Creatinine [Mass ratio] 17.8 mg/mg Normal [facility] Comment on above: Performed By: #### C BC #### [facility] [address] [place] [address] Dr. Mason Astudillo ABO RH RETYPEon 02-03-2022 ABO and Rh group Nom (Bld) DONE Normal [facility] Comment on above: Performed By: #### P OCGLUC #### [facility] [address] [place] [address] Dr. Mason Astudillo CBC AUTO DIFFon 02-03-2022 Basophils/100 WBC (Bld) 0.5 % Normal 0.2-2.0 [facility] Comment on above: Performed By: #### U A #### [facility] [address] [place] [address] Dr. Mason Astudillo EO # 0.2 103/ul Normal 0.0-0.7 [facility] Comment on above: Performed By: #### U A #### [facility] [address] [place] [address] Dr. Mason Astudillo Eosinophils/100 WBC (Bld) 2.9 % Normal 0.9-7.0 [facility] Comment on above: Performed By: #### U A #### [facility] [address] [place] [address] Dr. Mason Astudillo Erythrocyte distribution width (RBC) [Ratio] 15.7 % Critically high 11.0-15.0 [facility] Comment on above: Performed By: #### U A #### [facility] [address] [place] [address] Dr. Mason sAtudillo Hematocrit (Bld) [Volume fraction] 31.1 % Critically low 42.0-54.0 [facility] Comment on above: Performed By: #### U A #### [facility] [address] [address] [address] Mason Astudillo Hemoglobin (Bld) [Mass/Vol] 9.7 g/dL Critically low 14.0-18.0 [facility] Comment on above: Result Comment: rcvd . 2 units of packed red cells. Performed By: #### U A #### [facility] [address] [place] [address] Dr. Mason Astudillo IG # 0.05 10e3/ul Critically high 0.00-0.03 [facility] Comment on above: Performed By: #### U A #### [facility] [address] [place] [address] Dr. Mason Astudillo IG % 0.8 % Critically high 0.0-0.5 [facility] Comment on above: Performed By: #### U A #### [facility] [address] [place] [address] Dr. Mason Astudillo LYMPH # 1.1 103/ul Critically low 1.2-3.8 [facility] Comment on above: Performed By: #### U A #### [facility] [address] [place] [address] Dr. Mason Astudillo Lymphocytes/100 WBC (Bld) 19.3 % Critically low 20.5-60.0 [facility] Comment on above: Performed By: #### U A #### [facility] [address] [place] [address] Dr. Mason Astudillo MCH (RBC) [Entitic mass] 27.2 pg Normal 25.9-34.0 [facility] Comment on above: Performed By: #### U A #### [facility] [address] [place] [address] Dr. Mason Astudillo MCHC (RBC) [Mass/Vol] 31.2 g/dL Normal 29.9-35.2 [facility] Comment on above: Performed By: #### U A #### [facility] [address] [place] [address] Dr. Mason Astudillo MCV (RBC) [Entitic vol] 87.1 fL Normal 80.0-94.0 [facility] Comment on above: Performed By: #### U A #### [facility] [address] [place] [address] Dr. Mason Astudillo MONO # 0.6 103/ul Normal 0.3-0.8 [facility] Comment on above: Performed By: #### U A #### [facility] [address] [place] [address] Dr. Mason Astudillo Monocytes/100 WBC (Bld) 10.7 % Normal 1.7-12.0 [facility] Comment on above: Performed By: #### U A #### [facility] [address] [place] [address] Dr. Mason Astudillo NEUT # 3.9 103/ul Normal 1.4-6.5 [facility] Comment on above: Performed By: #### U A #### [facility] [address] [place] [address] Dr. Mason Astudillo Neutrophils/100 WBC (Bld) 65.8 % Normal 43.0-75.0 [facility] Comment on above: Performed By: #### U A #### [facility] [address] [place] [address] Dr. Mason Astudillo Platelet mean volume (Bld) [Entitic vol] 10.5 fL Normal 9.5-13.5 [facility] Comment on above: Performed By: #### U A #### [facility] [address] [place] [address] Dr. Mason Astudillo PLT 147 103/ul Critically low 150-450 [facility] Comment on above: Performed By: #### U A #### [facility] [address] [place] [address] Dr. Mason Astudillo RBC 3.57 106/ul Critically low 4.70-6.10 [facility] Comment on above: Performed By: #### U A #### [facility] [address] [place] [address] Dr. Mason Astudillo WBC 5.9 103/ul Normal 4.0-11.0 [facility] Comment on above: Performed By: #### U A #### [facility] [address] [address] [address] Mason Astudillo BASO # 0.0 103/ul Normal 0.0-0.1 [facility] Comment on above: Performed By: #### U A #### [facility] [address] [place] [address] Dr. Mason Astudillo Basophils/100 WBC (Bld) 0.3 % Normal 0.2-2.0 [facility] Comment on above: Performed By: #### U A #### [facility] [address] [place] [address] Dr. Mason Astudillo EO # 0.1 103/ul Normal 0.0-0.7 [facility] Comment on above: Performed By: #### U A #### [facility] [address] [place] [address] Dr. Mason Astudillo Eosinophils/100 WBC (Bld) 2.5 % Normal 0.9-7.0 [facility] Comment on above: Performed By: #### U A #### [facility] [address] [place] [address] Dr. Mason Astudillo Erythrocyte distribution width (RBC) [Ratio] 15.9 % Critically high 11.0-15.0 [facility] Comment on above: Performed By: #### U A #### [facility] [address] [place] [address] Dr. Mason Astudillo Hematocrit (Bld) [Volume fraction] 22.3 % Critically low 42.0-54.0 [facility] Comment on above: Result Comment: Test Repeated. Critical Value Verified Performed By: #### U A #### [facility] [address] [place] [address] Dr. Mason Astudillo Hemoglobin (Bld) [Mass/Vol] 6.7 g/dL Critically low 14.0-18.0 [facility] Comment on above: Result Comment: Test Repeated. Critical Value Verified Performed By: #### U A #### [facility] [address] [place] [address] Dr. Mason Astudillo IG # 0.02 10e3/ul Normal 0.00-0.03 [facility] Comment on above: Performed By: #### U A #### [facility] [address] [place] [address] Dr. Mason Astudillo IG % 0.5 % Normal 0.0-0.5 [facility] Comment on above: Performed By: #### U A #### [facility] [address] [place] [address] Dr. Mason Astudillo LYMPH # 0.7 103/ul Critically low 1.2-3.8 [facility] Comment on above: Performed By: #### U A #### [facility] [address] [place] [address] Dr. Mason Astudillo Lymphocytes/100 WBC (Bld) 19.5 % Critically low 20.5-60.0 [facility] Comment on above: Performed By: #### U A #### [facility] [address] [place] [address] Dr. Mason Astudillo MANUAL DIFF REQ NO Normal [facility] Comment on above: Performed By: #### U A #### [facility] [address] [place] [address] Dr. Mason Astudillo MCH (RBC) [Entitic mass] 25.8 pg Critically low 25.9-34.0 [facility] Comment on above: Performed By: #### U A #### [facility] [address] [place] [address] Dr. Mason Astudillo MCHC (RBC) [Mass/Vol] 30.0 g/dL Normal 29.9-35.2 [facility] Comment on above: Performed By: #### U A #### [facility] [address] [place] [address] Dr. Mason Astudillo MCV (RBC) [Entitic vol] 85.8 fL Normal 80.0-94.0 [facility] Comment on above: Performed By: #### U A #### [facility] [address] [place] [address] Dr. Mason Astudillo MONO # 0.4 103/ul Normal 0.3-0.8 [facility] Comment on above: Performed By: #### U A #### [facility] [address] [address] [address] Mason Astudillo Monocytes/100 WBC (Bld) 11.8 % Normal 1.7-12.0 [facility] Comment on above: Performed By: #### U A #### [facility] [address] [address] [address] Mason Astudillo NEUT # 2.4 103/ul Normal 1.4-6.5 [facility] Comment on above: Performed By: #### U A #### [facility] [address] [place] [address] Dr. Mason Astudillo Neutrophils/100 WBC (Bld) 65.4 % Normal 43.0-75.0 [facility] Comment on above: Performed By: #### U A #### [facility] [address] [place] [address] Dr. Mason Astudillo Platelet mean volume (Bld) [Entitic vol] 10.7 fL Normal 9.5-13.5 [facility] Comment on above: Performed By: #### U A #### [facility] [address] [place] [address] Dr. Mason Astudillo PLT 103 103/ul Critically low 150-450 [facility] Comment on above: Performed By: #### U A #### [facility] [address] [place] [address] Dr. Mason Astudillo RBC 2.60 106/ul Critically low 4.70-6.10 [facility] Comment on above: Performed By: #### U A #### [facility] [address] [place] [address] Dr. Mason Astudillo WBC 3.7 103/ul Critically low 4.0-11.0 [facility] Comment on above: Performed By: #### U A #### [facility] [address] [place] [address] Dr. Mason Astudillo IRON AND TIBCon 02-03-2022 % SATURATION 46.9 % Normal [facility] Comment on above: Performed By: #### U A #### [facility] [address] [address] [address] Mason Astudillo Iron [Mass/Vol] 150.0 ug/dL Normal 65.0-175.0 [facility] Comment on above: Performed By: #### U A #### [facility] [address] [address] [address] Mason Astudillo TIBC DIRECT 320.0 ug/dL Normal 250.0-450.0 [facility] Comment on above: Performed By: #### U A #### [facility] [address] [place] [address] Dr. Mason Astudillo POINT OF CARE GLUCOSEon 01-06 Glucose [Mass/Vol] 201 mg/dL Critically high 74-106 [facility] Comment on above: Performed By: #### U A #### [facility] [address] [place] [address] Dr. Mason Astudillo Glucose [Mass/Vol] 152 mg/dL Critically high 74-106 [facility] Comment on above: Performed By: #### P OCGLUC #### [facility] [address] [place] [address] Dr. Mason Astudillo Glucose [Mass/Vol] 242 mg/dL Critically high 74-106 [facility] Comment on above: Performed By: #### A 1C #### [facility] [address] [place] [address] Dr. Mason Astudillo PROF CHEM 8 (BAS METB)on Anion gap [Moles/Vol] 11.4 mmol/L Normal [facility] Comment on above: Performed By: #### B MP #### [facility] [address] [place] [address] Dr. Mason Astudillo Calcium [Mass/Vol] 7.5 mg/dL Critically low 8.5-10.1 [facility] Comment on above: Performed By: #### B MP #### [facility] [address] [place] [address] Dr. Mason Astudillo Chloride [Moles/Vol] 106 mmol/L Normal 98-107 [facility] Comment on above: Performed By: #### B MP #### [facility] [address] [address] [address] Mason Astudillo CO2 [Moles/Vol] 26.8 mmol/L Normal 21.0-32.0 [facility] Comment on above: Performed By: #### B MP #### [facility] [address] [address] [address] Mason Astudillo Creatinine [Mass/Vol] 1.26 mg/dL Normal 0.70-1.30 [facility] Comment on above: Performed By: #### B MP #### [facility] [address] [address] [address] Mason Astudillo EGFR-AF SAO TOMEAN >60 Normal >=60 [facility] Comment on above: Performed By: #### B MP #### [facility] [address] [address] [address] Mason Astudillo EGFR-NON AF SAO TOMEAN 54 mL/min/1.73m2 Critically low >=60 [facility] Comment on above: Performed By: #### B MP #### [facility] [address] [address] [address] Mason Astudillo Glucose [Mass/Vol] 160 mg/dL Critically high 74-106 [facility] Comment on above: Performed By: #### B MP #### [facility] [address] [address] [address] Mason Astudillo Potassium [Moles/Vol] 3.2 mmol/L Critically low 3.5-5.1 [facility] Comment on above: Performed By: #### B MP #### [facility] [address] [address] [address] Mason Astudillo Sodium [Moles/Vol] 141 mmol/L Normal 136-145 [facility] Comment on above: Performed By: #### B MP #### [facility] [address] [address] [address] Mason Astudillo Urea nitrogen [Mass/Vol] 30.0 mg/dL Critically high 7.0-18.0 [facility] Comment on above: Performed By: #### B MP #### [facility] [address] [place] [address] Dr. Mason Astudillo Urea nitrogen/Creatinine [Mass ratio] 23.8 mg/mg Normal [facility] Comment on above: Performed By: #### B MP #### [facility] [address] [place] [address] Dr. Mason Astudillo TYPE AND SCREENon 02-03-2022 TYPE AND SCREEN Negative Normal [facility] Comment on above: Performed By: #### T NS #### [facility] [address] [place] [address] Dr. Mason Astudillo BNPon 02-02-2022 Natriuretic peptide B (Bld) [Mass/Vol] 154.0 pg/mL Normal <=1,800.0 [facility] Comment on above: Performed By: #### P SAD #### [facility] [address] [place] [address] Dr. Mason Astudillo CARDIAC ANJELICA ADMITon 022 CK [Catalytic activity/Vol] 256 U/L Normal 39-308 [facility] Comment on above: Performed By: #### P OCGLUC #### [facility] [address] [place] [address] Dr. Mason Astudillo CK.MB [Mass/Vol] 3.30 ng/mL Normal <=3.60 [facility] Comment on above: Performed By: #### P OCGLUC #### [facility] [address] [place] [address] Dr. Mason Astudillo HSTROP 19.1 pg/mL Normal 4.0-76.1 [facility] Comment on above: Result Comment: CUT- OFF POINTS HAVE BEEN ESTABLISHED BASED ON THE FOURTH UNIVERSAL DEFINITIONS OF MYOCARDIAL INFARCTION. THE UPPER REFERENCE LIMIT (URL) OF TROPONIN, DEFINED THE 99TH PERCENTILE OF cTnI DISTRIBUTION IN A REFERENCE POPULATION, HAS BEEN CONFIRMED THE DECISION THRESHOLD FOR OK DIAGNOSIS. Performed By: #### P OCGLUC #### [facility] [address] [place] [address] Dr. Mason Astudillo ABDELRAHMAN 304 ng/mL Critically high 16-96 [facility] Comment on above: Performed By: #### P OCGLUC #### [facility] [address] [place] [address] Dr. Mason Astudillo CBC AUTO DIFFon 02-02-2022 BASO # 0.0 103/ul Normal 0.0-0.1 [facility] Comment on above: Performed By: #### C BC #### [facility] [address] [place] [address] Dr. Mason Astudillo Basophils/100 WBC (Bld) 0.5 % Normal 0.2-2.0 [facility] Comment on above: Performed By: #### C BC #### [facility] [address] [place] [address] Dr. Mason Astudillo EO # 0.2 103/ul Normal 0.0-0.7 [facility] Comment on above: Performed By: #### C BC #### [facility] [address] [place] [address] Dr. Mason Astudillo Eosinophils/100 WBC (Bld) 2.4 % Normal 0.9-7.0 [facility] Comment on above: Performed By: #### C BC #### [facility] [address] [place] [address] Dr. Mason Astudillo Erythrocyte distribution width (RBC) [Ratio] 15.9 % Critically high 11.0-15.0 [facility] Comment on above: Performed By: #### C BC #### [facility] [address] [place] [address] Dr. Mason Astudillo Hematocrit (Bld) [Volume fraction] 27.9 % Critically low 42.0-54.0 [facility] Comment on above: Performed By: #### C BC #### [facility] [address] [place] [address] Dr. Mason Astudillo Hemoglobin (Bld) [Mass/Vol] 8.7 g/dL Critically low 14.0-18.0 [facility] Comment on above: Performed By: #### C BC #### [facility] [address] [place] [address] Dr. Mason Astudillo IG # 0.04 10e3/ul Critically high 0.00-0.03 [facility] Comment on above: Performed By: #### C BC #### [facility] [address] [place] [address] Dr. Mason Astudillo IG % 0.6 % Critically high 0.0-0.5 [facility] Comment on above: Performed By: #### C BC #### [facility] [address] [place] [address] Dr. Mason Astudillo LYMPH # 1.3 103/ul Normal 1.2-3.8 [facility] Comment on above: Performed By: #### C BC #### [facility] [address] [place] [address] Dr. Mason Astudillo Lymphocytes/100 WBC (Bld) 20.1 % Critically low 20.5-60.0 [facility] Comment on above: Performed By: #### C BC #### [facility] [address] [place] [address] Dr. Mason Astudillo MANUAL DIFF REQ NO Normal [facility] Comment on above: Performed By: #### C BC #### [facility] [address] [place] [address] Dr. Mason Astudillo MCH (RBC) [Entitic mass] 26.1 pg Normal 25.9-34.0 [facility] Comment on above: Performed By: #### C BC #### [facility] [address] [place] [address] Dr. Mason Astudillo MCHC (RBC) [Mass/Vol] 31.2 g/dL Normal 29.9-35.2 [facility] Comment on above: Performed By: #### C BC #### [facility] [address] [place] [address] Dr. Mason Astudillo MCV (RBC) [Entitic vol] 83.8 fL Normal 80.0-94.0 [facility] Comment on above: Performed By: #### C BC #### [facility] [address] [place] [address] Dr. Mason Astudillo MONO # 0.7 103/ul Normal 0.3-0.8 [facility] Comment on above: Performed By: #### C BC #### [facility] [address] [place] [address] Dr. Mason Astudillo Monocytes/100 WBC (Bld) 11.1 % Normal 1.7-12.0 [facility] Comment on above: Performed By: #### C BC #### [facility] [address] [place] [address] Dr. Mason Astudillo NEUT # 4.1 103/ul Normal 1.4-6.5 [facility] Comment on above: Performed By: #### C BC #### [facility] [address] [place] [address] Dr. Mason Astudillo Neutrophils/100 WBC (Bld) 65.3 % Normal 43.0-75.0 [facility] Comment on above: Performed By: #### C BC #### [facility] [address] [place] [address] Dr. Mason Astudillo Platelet mean volume (Bld) [Entitic vol] 10.3 fL Normal 9.5-13.5 [facility] Comment on above: Performed By: #### C BC #### [facility] [address] [place] [address] Dr. Mason Astudillo PLT 145 103/ul Critically low 150-450 [facility] Comment on above: Performed By: #### C BC #### [facility] [address] [place] [address] Dr. Mason Astudillo RBC 3.33 106/ul Critically low 4.70-6.10 [facility] Comment on above: Performed By: #### C BC #### [facility] [address] [place] [address] Dr. Mason Astudillo WBC 6.2 103/ul Normal 4.0-11.0 [facility] Comment on above: Performed By: #### C BC #### [facility] [address] [place] [address] Dr. Mason Astudillo Covid-19 PCR ([facility])on 01-06 SARS-CoV-2 (COVID-19) RNA GARCÍA+probe Ql (Unsp spec) Not detected Normal NOT DETECTED [facility] Comment on above: Result Comment: When [...] for this test is supported by the [place] of [employer] Human [employer]'s declaration that [...] Performed By: #### A 1C #### [facility] [address] [place] [address] Dr. Mason Astudillo FREE T3on 02-02-2022 FREE T3 2.16 pg/mlL Critically low 2.18-3.98 [facility] Comment on above: Performed By: #### P SAD #### [facility] [address] [place] [address] Dr. aMson Astudillo FREE T4on 02-02-2022 Free T4 [Mass/Vol] 1.09 ng/dL Normal 0.76-1.46 [facility] Comment on above: Performed By: #### F T4 #### [facility] [address] [place] [address] Dr. Mason Astudillo GLYCOHEMOGLOBIN A1Con 2021 ADA RECOMMENDATION SEE BELOW Normal [facility] Comment on above: Result Comment: ADA RECOMMENDED LIMIT 4.0 - 6.0 ADA THERAPEUTIC TARGET < 7.0 ACTION SUGGESTED > 7.0 Performed By: #### A 1C #### [facility] [address] [place] [address] Dr. Mason Astudillo Glucose [Mass/Vol] 160 mg/dL Normal [facility] Comment on above: Performed By: #### A 1C #### [facility] [address] [place] [address] Dr. Mason Astudillo HbA1c (Bld) [Mass fraction] 7.2 % Critically high 4.5-6.2 [facility] Comment on above: Performed By: #### A 1C #### [facility] [address] [place] [address] Dr. Mason Astudillo MAGNESIUMon 02-02-2022 Magnesium [Mass/Vol] 2.1 mg/dL Normal 1.8-2.4 [facility] Comment on above: Performed By: #### P SAD #### [facility] [address] [place] [address] Dr. Mason Astudillo POINT OF CARE GLUCOSEon 01-06 Glucose [Mass/Vol] 226 mg/dL Critically high 74-106 [facility] Comment on above: Performed By: #### C BC #### [facility] [address] [place] [address] Dr. Mason Astudillo Glucose [Mass/Vol] 249 mg/dL Critically high 74-106 [facility] Comment on above: Performed By: #### C BC #### [facility] [address] [place] [address] Dr. Mason Astudillo Glucose [Mass/Vol] 195 mg/dL Critically high 74-106 [facility] Comment on above: Performed By: #### P SAD #### [facility] [address] [place] [address] Dr. Mason Astudillo PROF CHEM 8 (BAS METB)on Anion gap [Moles/Vol] 12.6 mmol/L Normal [facility] Comment on above: Performed By: #### P OCGLUC #### [facility] [address] [place] [address] Dr. Mason Astudillo Calcium [Mass/Vol] 8.1 mg/dL Critically low 8.5-10.1 [facility] Comment on above: Performed By: #### P OCGLUC #### [facility] [address] [place] [address] Dr. Msaon Astudillo Chloride [Moles/Vol] 101 mmol/L Normal 98-107 [facility] Comment on above: Performed By: #### P OCGLUC #### [facility] [address] [address] [address] Mason Astudillo CO2 [Moles/Vol] 29.4 mmol/L Normal 21.0-32.0 [facility] Comment on above: Performed By: #### P OCGLUC #### [facility] [address] [address] [address] Mason Astudillo Creatinine [Mass/Vol] 1.68 mg/dL Critically high 0.70-1.30 [facility] Comment on above: Performed By: #### P OCGLUC #### [facility] [address] [address] [address] Mason Astudillo EGFR-AF SAO TOMEAN 47 mL/min/1.73m2 Critically low >=60 [facility] Comment on above: Result Comment: Prev iously reported as: (blank) On 02/02/2022 06:30 By [facility] Performed By: #### P OCGLUC #### [facility] [address] [place] [address] Dr. Mason Astudillo EGFR-NON AF SAO TOMEAN 39 mL/min/1.73m2 Critically low >=60 [facility] Comment on above: Result Comment: Prev iously reported as: (blank) On 02/02/2022 06:30 By [facility] Performed By: #### P OCGLUC #### [facility] [address] [place] [address] Dr. Mason Astudillo Glucose [Mass/Vol] 264 mg/dL Critically high 74-106 [facility] Comment on above: Performed By: #### P OCGLUC #### [facility] [address] [place] [address] Dr. Mason Astudillo Potassium [Moles/Vol] 3.0 mmol/L Critically low 3.5-5.1 [facility] Comment on above: Performed By: #### P OCGLUC #### [facility] [address] [address] [address] Mason Astudillo Sodium [Moles/Vol] 140 mmol/L Normal 136-145 [facility] Comment on above: Performed By: #### P OCGLUC #### [facility] [address] [address] [address] Mason Astudillo Urea nitrogen [Mass/Vol] 45.0 mg/dL Critically high 7.0-18.0 [facility] Comment on above: Performed By: #### P OCGLUC #### [facility] [address] [address] [address] Mason Astudillo Urea nitrogen/Creatinine [Mass ratio] 26.8 mg/mg Normal [facility] Comment on above: Performed By: #### P OCGLUC #### [facility] [address] [place] [address] Dr. Mason Astudillo TROPONIN, HIGH SENSITIVITYon 02-02-2022 HSTROP 81.7 pg/mL Critically high 4.0-76.1 [facility] Comment on above: Result Comment: CUT- OFF POINTS HAVE BEEN ESTABLISHED BASED ON THE FOURTH UNIVERSAL DEFINITIONS OF MYOCARDIAL INFARCTION. THE UPPER REFERENCE LIMIT (URL) OF TROPONIN, DEFINED THE 99TH PERCENTILE OF cTnI DISTRIBUTION IN A REFERENCE POPULATION, HAS BEEN CONFIRMED THE DECISION THRESHOLD FOR [place] DIAGNOSIS. repeated Performed By: #### B MP #### [facility] [address] [place] [address] Dr. Mason Astudillo TSHon 02-02-2022 TSH 1.200 uIU/mL Normal 0.358-3.740 [facility] Comment on above: Performed By: #### C BC #### [facility] [address] [place] [address] Dr. Mason Astudillo XR CHEST 1 Von [...] LOVE Date: 2022-02-02 06:45 Normal [facility] RENAL FUNCTION PANELon 01-11 Albumin [Mass/Vol] 3.7 g/dL Normal 3.4-5.0 [facility] Comment on above: Performed By: #### P OCGLUC #### [facility] [address] [address] [address] Mason Astudillo Calcium [Mass/Vol] 8.6 mg/dL Normal 8.5-10.1 [facility] Comment on above: Performed By: #### P OCGLUC #### [facility] [address] [address] [address] Mason Astudillo Chloride [Moles/Vol] 104 mmol/L Normal 98-107 [facility] Comment on above: Performed By: #### P OCGLUC #### [facility] [address] [address] [address] Mason Astudillo CO2 [Moles/Vol] 28.0 mmol/L Normal 21.0-32.0 [facility] Comment on above: Performed By: #### P OCGLUC #### [facility] [address] [address] [address] Mason Astudillo Creatinine [Mass/Vol] 1.25 mg/dL Normal 0.70-1.30 [facility] Comment on above: Performed By: #### P OCGLUC #### [facility] Laboratory [address] [address] [address] Mason Astudillo EGFR-AF SAO TOMEAN >60 Normal >=60 [facility] Comment on above: Performed By: #### P OCGLUC #### [facility] [address] [address] [address] Mason Astudillo EGFR-NON AF SAO TOMEAN 55 mL/min/1.73m2 Critically low >=60 [facility] Comment on above: Performed By: #### P OCGLUC #### [facility] [address] [address] [address] Mason Astudillo Glucose [Mass/Vol] 143 mg/dL Critically high 74-106 [facility] Comment on above: Performed By: #### P OCGLUC #### [facility] [address] [address] [address] Mason Astudillo Phosphate [Mass/Vol] 2.9 mg/dL Normal 2.6-4.7 [facility] Comment on above: Performed By: #### P OCGLUC #### [facility] [address] [address] [address] Mason Astudillo Potassium [Moles/Vol] 3.6 mmol/L Normal 3.5-5.1 [facility] Comment on above: Performed By: #### P OCGLUC #### [facility] [address] [place] [address] Dr. Mason Astudillo Sodium [Moles/Vol] 142 mmol/L Normal 136-145 [facility] Comment on above: Performed By: #### P OCGLUC #### [facility] [address] [place] [address] Dr. Msaon Astudillo Urea nitrogen [Mass/Vol] 19.0 mg/dL Critically high 7.0-18.0 [facility] Comment on above: Performed By: #### P OCGLUC #### [facility] [address] [place] [address] Dr. Mason Astudillo UA RANDOMon 01-11-2022 Bilirubin Ql (U) Negative Normal NEGATIVE [facility] Comment on above: Performed By: #### U A #### [facility] [address] [place] [address] Dr. Mason Astudillo Clarity (U) CLEAR Normal CLEAR [facility] Comment on above: Performed By: #### U A #### [facility] [address] [place] [address] Dr. Mason Astudillo Color (U) LT. YELLOW Normal YELLOW [facility] Comment on above: Performed By: #### U A #### [facility] [address] [place] [address] Dr. Mason Astudillo Glucose Ql (U) >1000 Abnormal NEGATIVE [facility] Comment on above: Performed By: #### U A #### [facility] [address] [place] [address] Dr. Mason Astudillo Hemoglobin Ql (U) Negative Normal NEGATIVE [facility] Comment on above: Performed By: #### U A #### [facility] [address] [place] [address] Dr. Mason Astudillo Ketones Ql (U) Negative Normal NEGATIVE [facility] Comment on above: Performed By: #### U A #### [facility] [address] [place] [address] Dr. Mason Astudillo LEUKOCYTES Negative Normal NEGATIVE [facility] Comment on above: Performed By: #### U A #### [facility] [address] [place] [address] Dr. Mason Astudillo Nitrite Ql (U) Negative Normal NEGATIVE [facility] Comment on above: Performed By: #### U A #### [facility] [address] [place] [address] Dr. Mason Astudillo pH (U) 6.5 [pH] Normal 5-9 [facility] Comment on above: Performed By: #### U A #### [facility] [address] [place] [address] Dr. Mason Astudillo SPEC GRAVITY 1.010 Normal 1.005-<=1.0 25 [facility] Comment on above: Performed By: #### U A #### [facility] [address] [place] [address] Dr. Mason Astudillo UA PROTEIN Negative Normal NEGATIVE/ TRACE [facility] Comment on above: Performed By: #### U A #### [facility] [address] [place] [address] Dr. Mason Astudillo Urobilinogen Qn (U) 0.2 {Lewis'U}/dL Normal 0.2 - 1. 0 [facility] Comment on above: Performed By: #### U A #### [facility] [address] [place] [address] Dr. Mason Astudillo URINE T PROTEIN CREAT RATIOo n 01-11-2022 Protein (U) [Mass/Vol] 23.7 mg/dL Critically high <=12.0 [facility] Comment on above: Performed By: #### A 1C #### [facility] [address] [place] [address] Dr. Mason Astudillo UR PROT CREAT RAT 0.20 Normal [facility] Comment on above: Performed By: #### A 1C #### [facility] [address] [place] [address] Dr. Mason Astudillo URINE CREAT 115.99 mg/dL Normal 20.00-300.0 0 [facility] Comment on above: Performed By: #### A 1C #### [facility] [address] [address] [address] Mason Astudillo US KIDNEYSon 01-09-2022 US [...] SALAS Date: 2022-01-09 17:44 Normal [facility] FOLATE ([facility])on 2 Folate 11.0 ng/mL Normal >3.0 [facility] Comment on above: Result Comment: A [facility] folate concentration of less than 3.1 ng/mL is considered to represent clinical deficiency. Performed By: #### P SAD #### [facility] [address] [address] [address] Mason Astudillo TRANSFERRINon 12-20-2021 Transferrin [Mass/Vol] 316 mg/dL Critically high 149-313 [facility] Comment on above: Performed By: #### A 1C #### [facility] [address] [address] [address] Mason Astudillo CBC AUTO DIFFon 12-18-2021 BASO # 0.0 103/ul Normal 0.0-0.1 [facility] Comment on above: Performed By: #### U A #### [facility] [address] [place] [address] Dr. Mason Astudillo Basophils/100 WBC (Bld) 0.3 % Normal 0.2-2.0 [facility] Comment on above: Performed By: #### U A #### [facility] [address] [place] [address] Dr. Mason Astudillo EO # 0.1 103/ul Normal 0.0-0.7 [facility] Comment on above: Performed By: #### U A #### [facility] [address] [place] [address] Dr. Mason Astudillo Eosinophils/100 WBC (Bld) 2.0 % Normal 0.9-7.0 [facility] Comment on above: Performed By: #### U A #### [facility] [address] [place] [address] Dr. Mason Astudillo Erythrocyte distribution width (RBC) [Ratio] 14.6 % Normal 11.0-15.0 [facility] Comment on above: Performed By: #### U A #### [facility] [address] [place] [address] Dr. Mason Astudillo Hematocrit (Bld) [Volume fraction] 35.6 % Critically low 42.0-54.0 [facility] Comment on above: Performed By: #### U A #### [facility] [address] [place] [address] Dr. Mason Astudillo Hemoglobin (Bld) [Mass/Vol] 10.7 g/dL Critically low 14.0-18.0 [facility] Comment on above: Performed By: #### U A #### [facility] [address] [place] [address] Dr. Mason Astudillo IG # 0.03 10e3/ul Normal 0.00-0.03 [facility] Comment on above: Performed By: #### U A #### [facility] [address] [place] [address] Dr. Mason Astudillo IG % 0.5 % Normal 0.0-0.5 [facility] Comment on above: Performed By: #### U A #### [facility] [address] [place] [address] Dr. Mason Astudillo LYMPH # 1.0 103/ul Critically low 1.2-3.8 [facility] Comment on above: Performed By: #### U A #### [facility] [address] [place] [address] Dr. Mason Astudillo Lymphocytes/100 WBC (Bld) 15.5 % Critically low 20.5-60.0 [facility] Comment on above: Performed By: #### U A #### [facility] [address] [place] [address] Dr. Mason Astudillo MANUAL DIFF REQ NO Normal [facility] Comment on above: Performed By: #### U A #### [facility] [address] [place] [address] Dr. Mason Astudillo MCH (RBC) [Entitic mass] 27.4 pg Normal 25.9-34.0 [facility] Comment on above: Performed By: #### U A #### [facility] [address] [place] [address] Dr. Mason Astudillo MCHC (RBC) [Mass/Vol] 30.1 g/dL Normal 29.9-35.2 [facility] Comment on above: Performed By: #### U A #### [facility] [address] [place] [address] Dr. Mason Astudillo MCV (RBC) [Entitic vol] 91.0 fL Normal 80.0-94.0 [facility] Comment on above: Performed By: #### U A #### [facility] [address] [place] [address] Dr. Mason Astudillo MONO # 0.5 103/ul Normal 0.3-0.8 [facility] Comment on above: Performed By: #### U A #### [facility] [address] [place] [address] Dr. Mason Astudillo Monocytes/100 WBC (Bld) 8.1 % Normal 1.7-12.0 [facility] Comment on above: Performed By: #### U A #### [facility] [address] [place] [address] Dr. Mason Astudillo NEUT # 4.5 103/ul Normal 1.4-6.5 [facility] Comment on above: Performed By: #### U A #### [facility] [address] [address] [address] Mason Astudillo Neutrophils/100 WBC (Bld) 73.6 % Normal 43.0-75.0 [facility] Comment on above: Performed By: #### U A #### [facility] [address] [place] [address] Dr. Mason Astudillo Platelet mean volume (Bld) [Entitic vol] 10.1 fL Normal 9.5-13.5 [facility] Comment on above: Performed By: #### U A #### [facility] [address] [place] [address] Dr. Mason Astudillo PLT 138 103/ul Critically low 150-450 [facility] Comment on above: Performed By: #### U A #### [facility] [address] [place] [address] Dr. Mason Astudillo RBC 3.91 106/ul Critically low 4.70-6.10 [facility] Comment on above: Performed By: #### U A #### [facility] [address] [place] [address] Dr. Mason Astudillo WBC 6.1 103/ul Normal 4.0-11.0 [facility] Comment on above: Performed By: #### U A #### [facility] [address] [place] [address] Dr. Mason Astudillo FERRITINon 12-18-2021 Ferritin [Mass/Vol] 16.0 ng/mL Critically low 26.0-388.0 [facility] Comment on above: Performed By: #### P OCGLUC #### [facility] [address] [place] [address] Dr. Mason Astudillo GLYCOHEMOGLOBIN A1Con 2021 ADA RECOMMENDATION SEE BELOW Normal [facility] Comment on above: Result Comment: ADA RECOMMENDED LIMIT 4.0 - 6.0 ADA THERAPEUTIC TARGET < 7.0 ACTION SUGGESTED > 7.0 Performed By: #### C BC #### [facility] [address] [place] [address] Dr. Mason Astudillo Glucose [Mass/Vol] 140 mg/dL Normal [facility] Comment on above: Performed By: #### C BC #### [facility] [address] [place] [address] Dr. Mason Astudillo HbA1c (Bld) [Mass fraction] 6.5 % Critically high 4.5-6.2 [facility] Comment on above: Performed By: #### C BC #### [facility] [address] [place] [address] Dr. Mason Astudillo IRON AND TIBCon 12-18-2021 % SATURATION 5.7 % Normal [facility] Comment on above: Performed By: #### P OCGLUC #### [facility] [address] [place] [address] Dr. Mason Astudillo Iron [Mass/Vol] 23.0 ug/dL Critically low 65.0-175.0 [facility] Comment on above: Performed By: #### P OCGLUC #### [facility] [address] [place] [address] Dr. Mason Astudillo TIBC DIRECT 413.0 ug/dL Normal 250.0-450.0 [facility] Comment on above: Performed By: #### P OCGLUC #### [facility] [address] [place] [address] Dr. Mason Astudillo PROF CHEM 8 (BAS METB)on Anion gap [Moles/Vol] 13.7 mmol/L Normal [facility] Comment on above: Performed By: #### P SAD #### [facility] [address] [place] [address] Dr. Mason Astudillo Calcium [Mass/Vol] 8.2 mg/dL Critically low 8.5-10.1 [facility] Comment on above: Performed By: #### P SAD #### [facility] [address] [address] [address] Mason Astudillo Chloride [Moles/Vol] 105 mmol/L Normal 98-107 [facility] Comment on above: Performed By: #### P SAD #### [facility] [address] [address] [address] Mason Astudillo CO2 [Moles/Vol] 27.1 mmol/L Normal 21.0-32.0 [facility] Comment on above: Performed By: #### P SAD #### [facility] [address] [address] [address] Mason Astudillo Creatinine [Mass/Vol] 1.32 mg/dL Critically high 0.70-1.30 [facility] Comment on above: Performed By: #### P SAD #### [facility] [address] [place] [address] Dr. Mason Astudillo EGFR-AF SAO TOMEAN >60 Normal >=60 [facility] Comment on above: Performed By: #### P SAD #### [facility] [address] [place] [address] Dr. Mason Astudillo EGFR-NON AF SAO TOMEAN 52 mL/min/1.73m2 Critically low >=60 [facility] Comment on above: Performed By: #### P SAD #### [facility] [address] [place] [address] Dr. Mason Astudillo Glucose [Mass/Vol] 121 mg/dL Critically high 74-106 [facility] Comment on above: Performed By: #### P SAD #### [facility] [address] [address] [address] Mason Astudillo Potassium [Moles/Vol] 3.8 mmol/L Normal 3.5-5.1 [facility] Comment on above: Performed By: #### P SAD #### [facility] [address] [place] [address] Dr. Mason Astudillo Sodium [Moles/Vol] 142 mmol/L Normal 136-145 [facility] Comment on above: Performed By: #### P SAD #### [facility] [address] [place] [address] Dr. Mason Astudillo Urea nitrogen [Mass/Vol] 27.0 mg/dL Critically high 7.0-18.0 [facility] Comment on above: Performed By: #### P SAD #### [facility] [address] [place] [address] Dr. Mason Astudillo Urea nitrogen/Creatinine [Mass ratio] 20.5 mg/mg Normal [facility] Comment on above: Performed By: #### P SAD #### [facility] [address] [place] [address] Dr. Mason Astudillo VITAMIN B12on 12-18-2021 Cobalamin (Vitamin B12) [Mass/Vol] 423.0 pg/mL Normal 193.0-986.0 [facility] Comment on above: Performed By: #### P OCGLUC #### [facility] [address] [place] [address] Dr. Mason Astudillo CBC AUTO DIFFon 11-08-2021 BASO # 0.0 103/ul Normal 0.0-0.1 [facility] Comment on above: Performed By: #### U A #### [facility] [address] [place] [address] Dr. Mason Astudillo Basophils/100 WBC (Bld) 0.3 % Normal 0.2-2.0 [facility] Comment on above: Performed By: #### U A #### [facility] [address] [place] [address] Dr. Mason Astudillo EO # 0.2 103/ul Normal 0.0-0.7 [facility] Comment on above: Performed By: #### U A #### [facility] [address] [place] [address] Dr. Mason Astudillo Eosinophils/100 WBC (Bld) 2.6 % Normal 0.9-7.0 [facility] Comment on above: Performed By: #### U A #### [facility] [address] [place] [address] Dr. Mason Astudillo Erythrocyte distribution width (RBC) [Ratio] 15.1 % Critically high 11.0-15.0 [facility] Comment on above: Performed By: #### U A #### [facility] [address] [address] [address] Mason Astudillo Hematocrit (Bld) [Volume fraction] 36.2 % Critically low 42.0-54.0 [facility] Comment on above: Performed By: #### U A #### [facility] [address] [place] [address] Dr. Mason Atsudillo Hemoglobin (Bld) [Mass/Vol] 11.7 g/dL Critically low 14.0-18.0 [facility] Comment on above: Performed By: #### U A #### [facility] [address] [place] [address] Dr. Mason Astudillo IG # 0.04 10e3/ul Critically high 0.00-0.03 [facility] Comment on above: Performed By: #### U A #### [facility] [address] [place] [address] Dr. Mason Astudillo IG % 0.7 % Critically high 0.0-0.5 [facility] Comment on above: Performed By: #### U A #### [facility] [address] [place] [address] Dr. Mason Astudillo LYMPH # 0.9 103/ul Critically low 1.2-3.8 [facility] Comment on above: Performed By: #### U A #### [facility] [address] [place] [address] Dr. Mason Astudillo Lymphocytes/100 WBC (Bld) 14.4 % Critically low 20.5-60.0 [facility] Comment on above: Performed By: #### U A #### [facility] [address] [place] [address] Dr. Mason Astudillo MANUAL DIFF REQ NO Normal [facility] Comment on above: Performed By: #### U A #### [facility] [address] [place] [address] Dr. Mason Astudillo MCH (RBC) [Entitic mass] 29.8 pg Normal 25.9-34.0 [facility] Comment on above: Performed By: #### U A #### [facility] [address] [place] [address] Dr. Mason Astudillo MCHC (RBC) [Mass/Vol] 32.3 g/dL Normal 29.9-35.2 [facility] Comment on above: Performed By: #### U A #### [facility] [address] [place] [address] Dr. Mason Astudillo MCV (RBC) [Entitic vol] 92.3 fL Normal 80.0-94.0 [facility] Comment on above: Performed By: #### U A #### [facility] [address] [place] [address] Dr. Mason Astudillo MONO # 0.5 103/ul Normal 0.3-0.8 [facility] Comment on above: Performed By: #### U A #### [facility] [address] [place] [address] Dr. Mason Astudillo Monocytes/100 WBC (Bld) 7.5 % Normal 1.7-12.0 [facility] Comment on above: Performed By: #### U A #### [facility] [address] [place] [address] Dr. Mason Astudillo NEUT # 4.5 103/ul Normal 1.4-6.5 [facility] Comment on above: Performed By: #### U A #### [facility] [address] [place] [address] Dr. Mason Astudillo Neutrophils/100 WBC (Bld) 74.5 % Normal 43.0-75.0 [facility] Comment on above: Performed By: #### U A #### [facility] [address] [place] [address] Dr. Mason Astudillo Platelet mean volume (Bld) [Entitic vol] 10.1 fL Normal 9.5-13.5 [facility] Comment on above: Performed By: #### U A #### [facility] [address] [place] [address] Dr. Mason Astudillo PLT 132 103/ul Critically low 150-450 [facility] Comment on above: Performed By: #### U A #### [facility] [address] [place] [address] Dr. Mason Astudillo RBC 3.92 106/ul Critically low 4.70-6.10 [facility] Comment on above: Performed By: #### U A #### [facility] [address] [place] [address] Dr. Mason Astudillo WBC 6.0 103/ul Normal 4.0-11.0 [facility] Comment on above: Performed By: #### U A #### [facility] [address] [place] [address] Dr. Mason Astudillo PROF CHEM 8 (BAS METB)on Anion gap [Moles/Vol] 8.9 mmol/L Normal [facility] Comment on above: Performed By: #### B MP #### [facility] [address] [place] [address] Dr. Mason Astudillo Calcium [Mass/Vol] 7.9 mg/dL Critically low 8.5-10.1 [facility] Comment on above: Performed By: #### B MP #### [facility] [address] [place] [address] Dr. Mason Astudillo Chloride [Moles/Vol] 101 mmol/L Normal 98-107 [facility] Comment on above: Performed By: #### B MP #### [facility] [address] [place] [address] Dr. Mason Astudillo CO2 [Moles/Vol] 28.3 mmol/L Normal 21.0-32.0 [facility] Comment on above: Performed By: #### B MP #### [facility] [address] [place] [address] Dr. Mason Astudillo Creatinine [Mass/Vol] 1.22 mg/dL Normal 0.70-1.30 [facility] Comment on above: Performed By: #### B MP #### [facility] [address] [place] [address] Dr. Mason Astudillo EGFR-AF SAO TOMEAN >60 Normal >=60 [facility] Comment on above: Performed By: #### B MP #### [facility] [address] [place] [address] Dr. Mason Astudillo EGFR-NON AF SAO TOMEAN 57 mL/min/1.73m2 Critically low >=60 [facility] Comment on above: Performed By: #### B MP #### [facility] [address] [address] [address] Mason Astudillo Glucose [Mass/Vol] 167 mg/dL Critically high 74-106 [facility] Comment on above: Performed By: #### B MP #### [facility] [address] [id number] Mason Astudillo Potassium [Moles/Vol] 3.2 mmol/L Critically low 3.5-5.1 [facility] Comment on above: Performed By: #### B MP #### [facility] [address] [address] [address] Mason Astudillo Sodium [Moles/Vol] 135 mmol/L Critically low 136-145 [facility] Comment on above: Performed By: #### B MP #### [facility] [address] [address] [address] Mason Astudillo Urea nitrogen [Mass/Vol] 23.0 mg/dL Critically high 7.0-18.0 [facility] Comment on above: Performed By: #### B MP #### [facility] [address] [place] [address] Dr. Mason Astudillo Urea nitrogen/Creatinine [Mass ratio] 18.9 mg/mg Normal [facility] Comment on above: Performed By: #### B MP #### [facility] [address] [address] [address] Mason Astudillo XR CHEST 2 Von [...] CASILLAS Date: 2021-11-08 14:01 Normal [facility] Vital Signs Date Time Vital Sign Value Performing Clinician Facility 12-23-2022 13:13-0400 Blood Pressure Location Mekhi VERG[facility] 12-23-2022 13:13-0400 Diastolic blood pressure 68 mm[Hg] Mekhi VERGARA [facility] 12-23-2022 13:13-0400 Heart rate 70 /min Mekhi VERGARA [facility] 12-23-2022 13:13-0400 Systolic blood pressure 120 mm[Hg] Mekhi VERG[facility] [facility]22 10:43-0400 Body height 177.8 cm Pacc 6 Work Phone: [facility] 05-10-2022 10:43-0400 Body temperature 97.81 [degF] Pacc 6 Work Phone: [facility] 05-10-2022 10:43-0400 Body weight 86.18 kg Pacc 6 Work Phone: [facility] 05-10-2022 10:43-0400 Diastolic blood pressure 75 mm[Hg] Pacc 6 Work Phone: [facility] 05-10-2022 10:43-0400 Heart rate 86 /min Pacc 6 Work Phone: [facility] 05-10-2022 10:43-0400 SaO2% (BldA) [Mass fraction] 97 % Pacc 6 Work Phone: [facility] 05-10-2022 10:43-0400 Systolic blood pressure 124 mm[Hg] Pacc 6 Work Phone: [facility] 04-22-2022 15:42-0400 Blood Pressure Location Mekhidominique VERGARA [facility] 04-22-2022 15:42-0400 Diastolic blood pressure 64 mm[Hg] Mekhi VERGARA [facility] 04-22-2022 15:42-0400 Heart rate 76 /min Mekhi VERGARA [facility] 04-22-2022 15:42-0400 Respiratory rate 60 /min Mekhi VERGARA [facility] 04-22-2022 15:42-0400 Systolic blood pressure 117 mm[Hg] Mekhi VERGARA [facility] 04-17-2022 12:55-0400 Body height 177.8 cm Tristin Wilcox MD, PhD Work Phone: [facility] 04-17-2022 12:55-0400 Body temperature 98.4 [degF] Tristin Wilcox MD, PhD Work Phone: [facility] 04-17-2022 12:55-0400 Body weight 86.18 kg Tristin Wilcox MD, PhD Work Phone: [facility] 04-17-2022 12:55-0400 Diastolic blood pressure 74 mm[Hg] Tristin Wilcox MD, PhD Work Phone: [facility] 04-17-2022 12:55-0400 Heart rate 70 /min Tristin Wilcox MD, PhD Work Phone: [facility] 04-17-2022 12:55-0400 Respiratory rate 16 /min Tristin Wilcox MD, PhD Work Phone: [facility] 04-17-2022 12:55-0400 SaO2% (BldA) [Mass fraction] 99 % Tristin Wilcox MD, PhD Work Phone: [facility] 04-17-2022 12:55-0400 Systolic blood pressure 127 mm[Hg] Tristin Wilcox MD, PhD Work Phone: [facility] 10-16-2021 14:39-0400 Blood Pressure Location Yenni NILL [facility] 10-16-2021 14:39-0400 Diastolic blood pressure 76 mm[Hg] Yenni NILL [facility] 10-16-2021 14:39-0400 Heart rate 68 /min Yenni NILL [facility] [place] 10-16-2021 14:39-0400 Respiratory rate 16 /min Yenni NILL [facility] [place] 10-16-2021 14:39-0400 Systolic blood pressure 106 mm[Hg] Yenni NILL [facility] [place] Encounters Encounter Date Encounter Type Care Provider Facility Start: 08-19-2023 End: 08-20-2023 ambulatory Mekhi VERGARA Facility:[facility] Start: 08-19-2023 End: 08-20-2023 ambulatory Mekhi VERGARA Facility:[facility] Start: 08-19-2023 End: 08-19-2023 Patient encounter procedure Mekhi VERGARA [facility] Start: 08-19-2023 End: 08-19-2023 Patient encounter procedure Mekhi VERGARA [facility] Start: 07-28-2023 End: 07-28-2023 ambulatory DE LA O FAWWAD Not Available Start: 07-03-2023 End: 07-03-2023 ambulatory DE LA O FAWWAD Not Available Start: 06-20-2023 End: 06-21-2023 ambulatory DE LA O FAWWAD Facility: [place] Start: 06-18-2023 End: 06-18-2023 ambulatory SHAIKH LEXI [...] Facility:[facility] Start: 03-07-2023 End: 03-07-2023 ambulatory [facility] Start: 02-03-2023 End: 02-04-2023 ambulatory Mallorie Joy MD Facility:[facility] Start: 12-23-2022 End: 12-24-2022 ambulatory SHAIKH LEXI Facility:[facility] [place] Start: 12-23-2022 End: 12-23-2022 Patient encounter procedure Mekhi VERGARA [facility] Start: 11-21-2022 ambulatory NARENDRANATH LAKSHMIPATHY . Facility:[facility] Start: 10-31-2022 ambulatory NARENDRANATH LAKSHMIPATHY . Facility:[facility] Start: 10-29-2022 End: 10-29-2022 ambulatory NARENDRANATH LAKSHMIPATHY . Facility:[facility] Start: 10-24-2022 End: 10-25-2022 ambulatory NARENDRANATH LAKSHMIPATHY . Facility:[facility] Start: 10-18-2022 End: 10-18-2022 ambulatory [facility] Start: 10-11-2022 End: 10-12-2022 ambulatory [facility] Start: 09-11-2022 End: 09-11-2022 ambulatory [facility] Start: 08-28-2022 Evaluation and manag ement of inpatient [facility] Start: 08-27-2022 Evaluation and manag ement of inpatient [facility] Start: 08-27-2022 End: 08-29-2022 Evaluation and management of inpatient [facility] Start: 08-20-2022 End: 08-21-2022 ambulatory DOCAB [facility] Start: 08-20-2022 End: 08-20-2022 ambulatory [facility] Start: 08-16-2022 End: 08-17-2022 ambulatory [facility] Start: 08-06-2022 End: 08-06-2022 Patient encounter procedure Mekhi VERGARA [facility] Start: 08-05-2022 End: 08-05-2022 ambulatory [facility] Start: 07-30-2022 End: 07-31-[address] PAULINE WINSTON . 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 Start: 05-10-2022 End: 05-10-2022 ambulatory Pacc Main 6 Work Phone: Pre Anesthesia Comment on above: Pre-op evaluation (P rimary Dx); Type 2 diabetes mellitus without complication, without long-term current use of insulin ([facility]); Radiculopathy, cervical region; Dementia in other diseases classified elsewhere, unspecified severity, without behavioral disturbance, psychotic disturbance, mood disturbance, and anxiety ([facility]); Intracranial hemorrhage ([facility]); Essential (primary) hypertension; Sleep apnea, unspecified type; Chronic obstructive pulmonary disease, unspecified COPD type (HCC); Arteriosclerosis of coronary artery; PAF (paroxysmal atrial fibrillation) ([facility]); History of DVT (deep vein thrombosis); Gastroesophageal reflux disease with esophagitis, unspecified whether hemorrhage; Chronic kidney disease, stage 4 (severe) ([facility]); Calculus of kidney; Hypothyroidism unspecified; Iron deficiency anemia due to chronic blood loss; History of prostate cancer; History of primary malignant neoplasm of urinary bladder; Gout, unspecified cause, unspecified chronicity, unspecified site Patient Education Start: 05-10-2022 End: 05-11-2022 ambulatory TRISTIN WILCOX Facility[facility] Start: 05-10-2022 End: 05-10-2022 Admission to establishment Pacc Main 6 Work [facility] Start: 05-10-2022 End: 05-10-2022 Preprocedural examination done Pacc Main 6 Work Phone: Pre Anesthesia Start: 05-09-2022 End: 05-10-2022 ambulatory DE LA O H FAWWAD Facility:[facility] Start: 05-01-2022 End: 05-01-2022 ambulatory FRANKY VERONICA Facility:[facility] Start: 04-25-2022 Telephone encounter Tristin Shawbraxton [facility] Comment on above: Appointment Start: 04-24-2022 Telephone encounter Marika Crabtree Col[facility] Surgery 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 Start: 04-22-2022 End: 04-22-2022 Patient encounter procedure Mekhi VERGARA [facility] Start: 04-18-2022 End: 04-19-2022 ambulatory DE LA O H FAWWAD Facility:[facility] Start: 04-17-2022 End: 04-18-2022 ambulatory TRISTIN WILCOX [facility] Start: 04-17-2022 End: 04-17-2022 Patient encounter procedure [...] FAWWAD Facility:[facility] Start: 03-18-2022 End: 03-18-2022 ambulatory [facility] Start: 02-18-2022 End: 02-19-2022 ambulatory DE LA [...] Start: 12-18-2021 End: 12-19-2021 ambulatory SHAIKH Milena SARKARD Facility:[facility] Start: 12-13-2021 End: 12-13-2021 Patient encounter procedure 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 [facility] [place] Start: 11-29-2021 End: 11-30-2021 ambulatory CALVIN MOREJON . Facility:[facility] Start: 11-27-2021 End: 11-27-2021 Patient encounter procedure 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 [facility] [place] Start: 11-21-2021 End: 11-22-2021 ambulatory SHAIKH Milena SARKARD Facility:[facility] Start: 11-17-2021 ambulatory SHAIKH Milena ELLIOTT Facilit y:[facility] Start: 11-09-2021 Encounter for preprocedural cardiovascular examination DR YENNI STANLEY . [facility] Start: 11-09-2021 Encounter for preprocedural laboratory examination DR YENNI STANLEY . [facility] Start: 11-08-2021 End: 11-09-[address] NONE LISTED REQUEST Facility:[facility] Start: 11-08-2021 End: 11-09-2021 Encounter for preprocedural cardiovascular examination NONE LISTED REQUEST Facility:[facility] Start: 10-16-2021 End: 10-16-2021 Patient encounter procedure 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 [facility] [place] Start: 10-09-2021 End: 10-09-2021 Off-Site Iraida James [facility] Start: 01-20-2017 End: 01-21-2017 Ambulatory DEFAULT PHYSICIAN Facility:[facility] Procedures Date Procedure Procedure Detail Performing Clinician Start: 08-05-2022 Cystoscopy Mekhi URSULA Start: 05-10-2022 Antibody screen TRISTIN AURELIO DURAES Comment on above: Order Comment: Specimen Type: BLOOD SPEC IMENOrdering Facility: [facility] Address: [address] [place] [address] Performed By: #### T [id number] ####CC MAIN BLOOD BANKCLIA [id number] [address] OF [facility] Start: 05-09-2022 PSA screening SHAIKH LEXI Comment on above: Performed By: #### A1C #### [facility] [address] [place] [address] Dr. Mason Astudillo Start: 04-18-2022 PSA screening SHAIKH LEXI Comment on above: Performed By: #### PSAD #### [facility] [address] [place] [address] Dr. Mason Astudillo Start: 04-17-2022 Sigmoidoscopy flx [...] Start: 11-07-2022 Hemoglobin A1c/Hemoglobin.total in Blood HBA1C [facility] Start: 05-10-2022 End: 07-10-2022 Hemoglobin A1c in Blood [facility] Work Phone: Comment on above: Expected: 05/10/2022 , Expires: 07/10/2022 Start: 03-07-2022 Influenza vaccination INFLUENZA (#1) [facility] Start: 08-21-2021 COVID-19 VACCINE (4 - Booster for Moderna series) COVID-19 VACCINE (4 - Booster for Moderna series) [facility] Start: 07-07-2021 ADVANCE DIRECTIVE DISCUSSION ADVANCE DIRECTIVE DISCUSSION [facility] Start: 07-07-2021 DEPRESSION ASSESSMENT DEPRESSION ASS ESSMENT [facility] Start: 2001 PNEUMOCOCCAL: 65+ (1 - PCV) PNEUMOCOCCAL: 65+ (1 - PCV) [facility] Start: 1986 SHINGRIX VACCINE (1 of 2) SHINGRIX VACCINE (1 of 2) [facility] Start: 1981 DIABETES SCREEN DIABETES SCREEN [facility] Start: 12-17-1955 Urine microalbumin profile DTAP,TDAP,TD (1 - Tdap) [facility] Start: 1954 Hepatitis B surface antibody level LDL CHOLESTEROL [facility] Start: 1954 SPIROMETRY SPIROMETRY [facility] Start: 1946 3 comp foot exam completed DIABETIC FOOT EXAM [facility] Start: 1946 Hepatitis B screening URINE ALBUMIN:CREATININE RATIO [facility] Start: 1946 Hepatitis C antibody , confirmatory test DILATED RETINAL EXAM [facility] Start: 1942 PNEUMOCOCCAL: 65+ (1 - PCV) PNEUMOCOCCAL: 65+ (1 - PCV) [facility] Start: 1941 Hemoglobin A1c/Hemoglobin.total in Blood HBA1C [facility] Immunizations Immunization Date Immunization Notes Care Provider Boone horton 05-14-2022 influenza virus vacc ine, unspecified formulation Mekhi VERGARA [facility] 06-26-2021 SARS-CoV-2 (COVID-19 ) mRNA-1273 vaccine Mekhi VERGARA [facility] 04-06-2021 influenza virus vacc ine, unspecified formulation Iraida James [facility] 03-28-2021 influenza virus vacc ine, unspecified formulation Mekhi VERGARA [facility] 02-04-2021 influenza virus vacc ine, unspecified formulation Iraida James [facility] 09-12-2020 SARS-CoV-2 (COVID-19 ) mRNA-1273 vaccine Mekhi VERGARA [facility] 08-14-2020 SARS-CoV-2 (COVID-19 ) mRNA-1273 vaccine Mekhi VERGARA [facility] 05-25-2020 pneumococcal polysaccharide vaccine, 23 valent Mekhi VERGARA [facility] 05-25-2020 zoster vaccine recombinant Mekhi VERGARA [facility] 02-25-2020 influenza virus vacc ine, unspecified formulation Mekhi VERGARA [facility] 02-25-2020 zoster vaccine recombinant Mekhi VERGARA [facility] 05-11-2019 tetanus toxoid, redu nimesh diphtheria toxoid, and acellular pertussis vaccine, adsorbed Mekhi VERGARA [facility] 03-23-2019 influenza virus vacc ine, unspecified formulation Mekhi VERGARA [facility] 03-23-2019 pneumococcal conjuga te vaccine, 13 valent Mekhi VERGARA [facility] 04-30-2018 influenza virus vacc ine, unspecified formulation Mekhi VERGARA [facility] 02-13-2017 influenza virus vacc ine, unspecified formulation Mekhi VERGARA [facility] 04-19-2015 influenza virus vacc ine, unspecified formulation Mekhi VERGARA [facility] 04-19-2015 pneumococcal polysaccharide vaccine, 23 valent Mekhi VERGARA [facility] 04-13-2015 influenza virus vacc ine, unspecified formulation Mekhi VREGARA [facility] 04-22-2007 influenza, whole Mekhi THOMAS [facility] Payers Date Payer Category Payer Unknown 2022 Unknown [id number] 2013 Private Health Insurance [facility] AAR SUPPLEMENT [id number] 2013-Present [phone] [address] [place] [address] Indemnity [id number] 2001 Medicare [id number] 1959 Medicare [id number] 1959 Unknown [id number] 1936 Unknown [id number] 2.16.840.1.428722.3.579.2 .593 1936 Unknown [id number] 2.16.840.1.841383.3.579.2 .593 1936 Unknown [id number] 2.16.840.1.775112.3.579.2 .593 1936 Unknown [id number] 2.16.840.1.077943.3.579.2 .593 1936 Unknown [id number] 2.16.840.1.269930.3.579.2 .593 1936 Unknown [id number] 2.16.840.1.019706.3.579.2 .593 1936 Unknown [id number] 2.16.840.1.738453.3.579.2 .593 1936 Unknown [id number] 2.16.840.1.921076.3.579.2 .593 1936 Unknown [id number] 2.16.840.1.171931.3.579.2 .593 1936 Unknown [id number] 2.16.840.1.506599.3.579.2 .593 1936 Unknown [id number] 2.16.840.1.292931.3.579.2 .593 1936 Unknown [id number] 2.16.840.1.923265.3.579.2 .593 1936 Unknown [id number] 2.16.840.1.201635.3.579.2 .593 1936 Unknown [id number] 2.16.840.1.280891.3.579.2 .593 1936 Unknown [id number] 2.16.840.1.056633.3.579.2 .593 1936 Unknown [id number] 2.16.840.1.399106.3.579.2 .593 1936 Unknown [id number] 2.16.840.1.936175.3.579.2 .593 1936 Unknown [id number] 2.16.840.1.155171.3.579.2 .593 1936 Unknown [id number] 2.16.840.1.169759.3.579.2 .593 1936 Unknown [id number] 2.16.840.1.544071.3.579.2 .593 1936 Unknown [id number] 2.16.840.1.528583.3.579.2 .593 1936 Unknown [id number] 2.16.840.1.672625.3.579.2 .593 1936 Unknown [id number] 2.16.840.1.025416.3.579.2 .593 1936 Unknown [id number] 2.16.840.1.985247.3.579.2 .593 1936 Unknown [id number] 2.16.840.1.618582.3.579.2 .593 1936 Unknown [id number] 2.16.840.1.229708.3.579.2 .593 1936 Unknown [id number] 2.16.840.1.606649.3.579.2 .196 1936 Unknown [id number] 2.16.840.1.036307.3.579.2 .196 1936 Unknown [id number] 2.16.840.1.095315.3.579.2 .196 1936 Unknown [id number] 2.16.840.1.424114.3.579.2 .196 1936 Unknown [id number] 2.16.840.1.705557.3.579.2 .1936 Unknown [id number] 2.16.840.1.130287.3.579.2 .196 1936 Unknown [id number] 2.16.840.1.387646.3.579.2 .1259 1936 Unknown [id number] 2.16.840.1.063156.3.579.2 .1259 1936 Unknown [id number] 2.16.840.1.106372.3.579.2 .1259 1936 Unknown [id number] 2.16.840.1.026974.3.579.2 .1259 1936 Unknown [id number] 2.16.840.1.116042.3.579.2 .1259 1936 Unknown [id number] 2.16.840.1.342783.3.579.2 .1259 1936 Unknown [id number] 2.16.840.1.635509.3.579.2 .727 1936 Unknown [id number] 2.16.840.1.611396.3.579.2 .727 1936 Unknown [id number] 2.16.840.1.356049.3.579.2 .727 1936 Unknown [id number] 2.16.840.1.526503.3.579.2 .727 Social History Date Type Detail Facility Start: 10-09-2021 End: 06-20-2023 Tobacco smoking status Never smoked tobacco (finding) [facility] Sex Assigned At Male [facility] Tobacco smoking status Never [facility] [place] Start: 04-17-2022 Tobacco use and exposure Smokeless tobacco non-user [facility] Start: 04-17-2022 End: 05-10-2022 Alcohol intake Current drinker of alcohol (finding) [facility] Start: 04-17-2022 Alcohol Comment very occasionally [facility] Start: 1935 Sex Assigned At Not on file C [facility] Start: 04-07-2022 End: 05-10-2022 Exposure to SARS-CoV-2 (event) Not sure [facility] Start: 05-10-2022 Alcohol Comment Rarely [facility] Functional Status Date Assessment Result Facility 08-19-2023 Functional Status N/A [facility] 12-23-2022 Functional Status N/A [facility] 08-01-2022 Functional Status N/A [facility] 04-22-2022 Functional Status N/A [facility] Clinical Notes 10-09-2021 to 08-19-2023 Telephone Encounter [...] [facility] [address], [place] [address]- Business (1) When: Unknown Comments:Office will call to schedule follow up [facility] 08-19-2023 Note Custom Cystoscopy ? Voiding [...] you have a fever over 100 degrees. [facility] 08-19-2023 Evaluation + Plan note Diagnostic Tests [facility]ending[facility]roVysion Fish and Urine Cyto ([facility]) 08/19/23 [facility] 03-07-2023 Note Watchman implant 08/08 Continue ASA for lifelong, may stop plavix being that > 6 months since implantation No need for Antibiotic prophylaxis at this time [facility] 03-07-2023 Note Coronary artery dise ase is stable Continue GDMT- ASA, lipitor, metoprolol continue risk factor modifications- heart healthy diet, regular exercise as tolerated and continue all medications. [facility] 03-07-2023 Note Hypertension is well controlled Continue all meds [facility] 03-07-2023 Note Continue lipitor [facility] 03-07-2023 Note [id number] VASc= 4 No anticoagulation s/p watchman implantation Rate remains controlled metoprolol and diltiazem [facility] 03-07-2023 Note Patient here for 6 m o follow up s/p Watchman implant. Doing ok from cardiac standpoint. Denies chest pain, SOB, and palpitations. Still on Plavix as of now. Review of Systems Cardiovascular: Positive for leg swelling. Hematologic/Lymphatic: Negative. Musculoskeletal: Positive for arthritis, back pain, joint pain and myalgias. All other systems reviewed and are negative. [facility] 03-07-2023 Note [facility] CARDIOLOGY PROGR ESS [...] tablet 40 mg in the morning. HYDROcodone-acetaminophen (Somerset) 5-325 mg tablet Take 1 tablet by [...] Global left ventricul (more content not included)... [facility] 12-23-2022 Hospital Discharge instructions Patient Education [...] if anything looks unusual. Men with a uqhqnd-cdtm-cajwjz risk for skin cancer may want to see a public relations specialist (nurse head) for an annual body check. What are the benefits of screening? Cancer screening is done to look for cancer in the very early stages, before it spreads and becomes harder to treat and before you would start to notice symptoms. Finding cancer early improves the chances of successful treatment. It may save your life. Where to find more information [employer]: www.cancer.org Centers for Disease Control and Prevention: www.cdc.gov National Cancer [place]: www.cancer.gov Contact a health care provider if: [...] provider. Document Revised: 11/19/2021 Document Reviewed: 05/19/2020 [employer] Patient Education 2022 [employer]. Follow Up Care 04/22/2022 16:39:16 With:URSULA WORKMAN, Mekhi Oh, URL Address: [facility] [address] [place] [address]- When: Unknown [facility] 10-24-2022 Note CONSULTATION CONSULTATION DATE: 10/24/2022 [...] which is stable. MEDICATION: Current medication includes Somerset 5 mg q.i.d. p.r.n. He reports it does improve his pain symptoms, improving his quality of life, level of functioning and his sleep pattern. He denies any side effects. He is also on Lyrica 75 mg at h.s., baclofen 10 mg at h.s. and Tylenol Extra Strength six pills a day, which he takes concomitantly with Somerset. EXAM: Notable for patient having left sided [...] our patients to inform us about any inxe-rhs-rezikuq medications or herbal remedies/nutritional supplements/alternative remedies. 2. [...] with their primary care provider. [facility] 10-18-2022 Note Patient here for fol low up KINZA s/p Watchman device implant. Denies chest pain and SOB. Doing very well. Review of Systems Cardiovascular: Positive for leg swelling. Hematologic/Lymphatic: Negative. Musculoskeletal: Positive for arthritis, back pain, joint pain and myalgias. All other systems reviewed and are negative. [facility] 10-18-2022 Note [facility] Subjective Ben Guadalupe is a [...] oriented to perso (more content not included)... [facility] 09-11-2022 Note [facility] Subjective Ben Guadalupe is a [...] 2022 he was admitted to the [facility] with palpitations and chest pain. He [...] Right lower le (more content not included)... [facility] 09-11-2022 Note Patient here for 2 w [place] follow up Watchman implant. Says he feels good. Denies chest pain and SOB. Review of Systems Cardiovascular: Positive for leg swelling. Hematologic/Lymphatic: Negative. Musculoskeletal: Positive for arthritis, back pain and myalgias. All other systems reviewed and are negative. [facility] 08-29-2022 Note Subjective Patient is s/p watchmen and s/p [facility] Patient restingin bed, doing well this morning. States he feels great and is ready to go home I did inform him of the [facility] results and that were no immediate concerns, [...] from the past 1 day. CV diagnostics: [facility] - 08/28/22 Conclusion Cardiovascular Laboratory Report FINAL [...] reduce the risk of stroke given elevated [id number] score of 5 due to age, hypertension, [...] He had watc (more content not included)... [facility] 08-29-2022 Note MARCELLA screened pt at [facility]. Pt was alert and oriented. Pt lives in manufactured home by himself. There are no steps into his home. Pt's son and grandson live in other homes next to him. He uses a scooter outside and a walker inside for DME. He supports himself through SSI and mcfp. Upon DC, pt will have transportation to home by family. MARCELLA has no other concerns at this time. [facility] 08-28-2022 Note Cardiovascular Labor atory Report [...] left radial artery was obtained. A 6 Irish glide sheath was inserted without difficulty. Bilateral [...] at the bifurcation with a prominent septal put in beat adjuster. There is subsequent caliber reduction in the [...] descending artery. INDICATIONS: Chest pain, elevated Troponin [facility] 08-28-2022 Note Subjective Patient is s/p [...] Clinic. Assessment/Plan Principal Problem: Paroxysmal atrial fibrillation ([facility]) #PAF #s/p watchmen 08/27/22 #anemia #hx rectal bleeding #mild cad #DM2 #htn The patient is a 86 y.o. male with complex prior medical history including Paroxysmal atrial fibrillation, who needs long-term anticoagulation therapy to reduce the risk of stroke given elevated [id number] score of 5 due to age, hypertension, [...] mg daily. As needed nitro ,albuterol and Somerset -repeat echo and ekg were not concerning [...] discussed with Dr. Danielle and Dr. Cheney. [facility] 08-27-2022 Note Maritza REACH LIFT TRUCK DRIVER on unit- ho lding off on trops at this time. Stat Echo ordered- going down shortly. [facility] 08-27-2022 Note Maritza cardiology REACH LIFT TRUCK DRIVER in at bedside- patient's chest pressure is slightly worsening than prior. Stat EKG and trops ordered- EKG obtained- still awaiting trops. [facility] 08-27-2022 Note Subjective Patient is s/p [...] be scheduled for a 45-day KINZA per [facility] protocol, and follow up in Cardiology Clinic. Assessment/Plan Principal Problem: Paroxysmal atrial fibrillation (CMS/HCC) #PAF #s/p watchmen 08/27/22 #anemia #hx rectal bleeding #mild cad #DM2 #htn The patient is a 86 y.o. male with complex prior medical history including Paroxysmal atrial fibrillation, who needs long-term anticoagulation therapy to reduce the risk of stroke given elevated [id number]-THUa score of 5 due to age, hypertension, [...] mg daily. As needed nitro ,albuterol and Somerset -repeat echo and ekg were not concerning at this time -will follow up with troponin for postop chest discomfort, likely from KINZA irritation or plavix, will order gi cocktail to see if that improves symptoms -likely discharge tomorrow [facility] 08-27-2022 Note Pt calling out deborah vega complaints of small amounts of chest pressure at this time. RN called biology lecturer- states will come to bedside to round very shortly. RN to follow up. [facility] 08-27-2022 Note Patient: Ben oh Procedure Information Date/Time: 08/27/22 0830 Procedure: Left atrial appendage closure (transvenous) - 829 case Location: [facility] [address] / [facility] VASCULAR LAB (Cath) Providers: Kavita Danielle MD [...] with fellow and attending. Additional Equipment Requests [facility] 08-20-2022 Note Patient: Ben oh Procedure Information Date/Time: 08/20/22 1030 Procedure: TRANSESOPHAGEAL ECHO (KINZA) Location: [facility] Vascular Lab Clinical [...] with fellow and attending. Additional Equipment Requests [facility] 08-06-2022 Hospital Discharge instructions Patient Education [...] Address: [facility] [address] [place] [address]- Business (1) When: Unknown Comments:Office will call to schedule follow up [facility] 08-05-2022 Note [place] Cardiology - [facility] Subjective Ben Guadalupe is a [...] 2022 he was admitted to the [facility] with palpitations and chest pain. He [...] reaction(s): vomiting Tizani (more content not included)... 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 He does not want to take AC for afib. Denies chest pain and SOB. Denies increase in LE edema. Review of Systems Constitutional: Positive for malaise/fatigue. Cardiovascular: Positive for leg swelling. Musculoskeletal: Positive for arthritis, back pain, joint pain, muscle weakness and myalgias. Neurological: Positive for weakness. All other systems reviewed and are negative. [facility] 07-30-2022 Note CONSULTATION CONSULTATION DATE: 07/30/2022 [...] the patient's pain. The patient currently takes Somerset 5/325 on a q.i.d. basis, Lyrica 75 [...] oriented x3, engaging with very good short term/fpc memory. IMPRESSION: Current working diagnosis on the [...] to maintain. CC: Dr. Elliott [facility] 06-25-2022 Note CONSULTATION CONSULTATION DATE: 06/25/2022 [...] patient currently takes Lyrica 75 mg b.i.d., Somerset 5/325 q.i.d., baclofen 10 mg q.h.s. The [...] like to proceed. CC: Dr. Elliott [facility] 06-24-2022 Note Hypertension is stab le -continue amlodipine, cardizem, metoprolol, losartan, lasix, farxiga [facility] 06-24-2022 Note -PGV6QX-MFAx: 5 -did not start anticoagulation and does [...] of stroke discussed with granddaughter and patient [facility] 06-24-2022 Note [place] Cardiology Note [facility] Reason for follow up: a-fib, [...] was made aware of stroke risks per [id number]-DLFk score of 5 (age, hypertension, diabetes, vascular [...] 2022 he was admitted to the [facility] with palpitations and chest pain. He [...] MCG (1000 UT) (more content not included)... [facility] 06-24-2022 Note Patient here for 1 [...] All other systems reviewed and are negative. [facility] 05-27-2022 Note [place] [facility] Subjective Ben Guadalupe is a 86 y.o. year old male patient being seen for 2 mo follow up stress test. He is not anticoagulated due to anemia and bleeding hemorrhoids. He had hemorrhoidectomy last week at [facility]. Denies chest pain and SOB. [...] 2022 he was admitted to the [facility] with palpitations and chest pain. He [...] (Cardizem CD) 18 (more content not included)... [facility] 05-17-2022 Note HNO ID: [id number] Author: Minesh Levy APRN.PRINTER ASSISTANT Service: ? Author Type: Nurse Lap Winder Type: Anesthesia Procedure Notes Filed: 05/17/2022 11:19 [...] Orientation: Left Location: Hand SIGNATURE: Minesh Levy APRN.PRINTER ASSISTANT PATIENT NAME: Ben Guadalupe DATE: May 17, 2022 TIME: 11:17 AM CSN: [id number] [facility] 05-17-2022 Note HNO ID: [id number] Author: Minesh Levy APRN.PRINTER ASSISTANT Service: ? Author Type: Nurse Lap Winder Type: Anesthesia Procedure Notes Filed: 05/17/2022 10:39 AM Note Text: ANESTHESIOLOGY PROCEDURE NOTE Airway General Information Procedure Start Time/Medication Administration: 05/17/2022 10:11 AM Patient location during procedure: OR Timeout Performed Pre-procedure: timeout performed Consent Obtained: Yes Patient identity confirmed: arm band and patient Staffing Anesthesiologist: Kandice Guadalupe MD PRINTER ASSISTANT: Minesh Levy APRN.PRINTER ASSISTANT Performed by: IGNACIO Indications and Patient Condition Indications for airway management: anesthesia Preoxygenated: yes anesthesia circuit Patient position: sniffing Method: asleep Difficult Mask: No Final Airway Details Final airway type: supraglottic airway Number of attempts at approach: 1 Final Supraglottic Airway: i-gel Size 5 Seal Adequate: yes Failed airway: no Unrecognized esophageal intubation: no Airway not difficult SIGNATURE: Minesh Levy APRN.PRINTER ASSISTANT PATIENT NAME: Ben Guadalupe DATE: May 17, 2022 TIME: 10:38 AM CSN: [id number] [facility] 05-17-2022 Note HNO ID: [id number] Author: Shruthi Valdez RN Service: Nursing Author Type: Registered Nurse Type: Nursing Progress Note Filed: 05/17/2022 10:04 AM Note Text: Other: Dr. Ruiz and Dr. Guadalupe aware of K+ of 3.0. Awaiting orders. [facility] 05-16-2022 Miscellaneous Notes Attempt to call patient to review prep for surgery tomorrow, no answer, no voicemail available. documented in this encounter [facility] 05-10-2022 Note HNO ID: [id number] Author: Donna Arriaga RN Service: ? Author [...] Time spent on patient education: [address] [facility] 05-10-2022 History of Present illness Narrative [...] education: 20 minutes documented in this encounter [facility] 05-10-2022 Note Education (KADIE) BEN GUADALUPE ([id number]) 1935 M Date Time Provider Department 05/10/22 [...] Encounter Status:Closed by DONNA ARRIAGA on 05/10/[address] [facility] 05-10-2022 History and physical note HISTORY [...] LLE +chronic LE edema Cards: Dr. Danielle [facility] 03/19/22 Denies any history of OK, CHF,PE, arrhythmias or murmurs. Denies CP, SOB, [...] 442 QTC Calculation (Bazett) 497 Calculated P [place] 37 Calculated R [place] 64 Calculated T [place] -10 Impression NORMAL SINUS RHYTHM COMPLETE RIGHT BUNDLE BRANCH BLOCK INFERIOR T WAVE ABNORMALITY ABNORMAL ECG No results found for this or any previous visit (from the past 73831 hour(s)). OSH Cardiovascular testing ABIs 10/11/2021: Normal [...] Shashi FITCH 03/19/22 PAF (paroxysmal atrial fibrillation) ([facility]) Assessment: admitted to hospital 02/2022 with chest [...] pepcid Chronic kidney disease, stage 4 (severe) ([facility]) Assessment: h/o DAVID 02/2022 during admission for blood loss and PAF -pending BMP today, no recent labs Calculus of kidney Assessment: stable, kidney stones Hypothyroidism unspecified Assessment: stable on Synthroid Diabetes mellitus ([facility]) Assessment: controlled with Farxiga 10 mg daily [...] TIME: 1:37 PM documented in this encounter [facility] 05-09-2022 Instructions Afia Downing PA-C - 05/09/2022 12:36 PM EDT PATIENT PREOPERATIVE INSTRUCTIONS Lorraine Wilcox* has scheduled you for your procedure at this surgery center: [facility] [place] Scheduling Office: [phone] --[address] [place] [address]. Please read below carefully for your personalized [...] or other anticoagulants without consulting with your retail area manager or prescribing physician. - Stop Vitamin E, [...] Procedures: - YOU MUST HAVE A RESPONSIBLE KARDEX CLERK TAKE YOU HOME. A SUPREME COURT JUDGE OR INVESTIGATIVE REPORTER CANNOT BE MADE A RESPONSIBLE KARDEX CLERK. - We recommend that a responsible person [...] call the Friday before. Your surgeon s bundle clerk will tell you what time to call the office. - If you have not reached the departmental bundle clerk by 5 P.M., call [phone] after 5 P.M. the day before your surgery. Please be aware that emergency situations arise, which may delay or change your surgical time. If this happens, we will notify you as soon as possible and regret any inconvenience. If you already have an Advance Directive, please fax a copy to [phone] or email to for it to be [...] Afia Downing PA-C documented in this encounter [facility] 04-25-2022 Miscellaneous Notes The Patient's granddaughter ( Milly Guadalupe) is calling to confirm surgery date, get all testing scheduled for her grandfather. Please call her at : [phone] at 11:30 AM or later, as she is at an appointment now. Thank you. documented in this encounter [facility] 04-24-2022 Miscellaneous Notes SPECIALTY CARE COORDINATION FOLLOW-UP NOTE Message left Pt to call in to discuss setting up surgery Offered 05/17/22 surgical date Any pre-operative business date within 30 days of surgical date Call back number left Signature Marika Zuñiga RN April 24, 2022 documented in this encounter [facility] 04-22-2022 Hospital Discharge instructions Patient Education [...] who: Are older than age 65. Are -Icelandic. Are obese. Have a family history of [...] cells. Follow these instructions at home: Take jvpg-dig-xfksawp and prescription medicines only as told by [...] 06/23/2006 Document Revised: 06/05/2018 Document Reviewed: 03/03/2017 [employer] Patient Education 2020 [employer]View. Follow Up Care 02/25/2022 17:01:47 With:URSULA WORKMAN, Mekhi hO, URL Address: [facility] [address] [place] [address]- [phone] When:10/21/2022 [facility] 04-17-2022 History and physical note COLORECTAL SURGERY [...] closed Resting tone: NORMAL Squeeze tone: NORMAL Appraiser Real Estate present: Yes Anoscopy: The patient was placed [...] treatment plan: high documented in this encounter [facility] 04-11-2022 Note CONSULTATION PROCEDURE DATE: 04/11/2022 [...] followed up in the office. 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 His lower back feels tight, achy and spasmodic. He is having increasing bilateral lower extremity pain. Activities that aggravate his pain are standing, walking, lying, sitting and any physical activity. The use of medication, in addition to heat, decreases his pain. Medications include Lyrica 75 mg b.i.d., baclofen 10 mg q.h.s., Somerset 5/325 q.i. d. and a multivitamin regimen. [...] Lyrica and other medications well with no ROCK WOOL APPLICATOR side effects. Patient agrees with the plan of care, will be followed up post procedure. [facility] 03-18-2022 Note Subjective Ben Guadalupe is a 86 y.o. male. Chief Complaint: Atrial Fibrillation, Coronary Artery Disease, Hypertension, and left ventricular hypertrophy Nursing note: Patient here for follow up [facility]. He was seen as inpatient consult [...] 2022 he was admitted to the [facility] with palpitations and chest pain. He [...] Hallucinations Tramadol Hallucination (more content not included)... [facility] 02-14-2022 Note CONSULTATION PROCEDURE DATE: 02/14/2022 [...] followed up in the clinic. [facility] 02-14-2022 Note CONSULTATION CONSULTATION DATE: 02/14/2022 [...] and he was in obvious distress. His Somerset was increased to 5/325 q.i.d. at that time, which has been helpful. The patient states since the introduction of the Lyrica to his regimen that his Somerset is back down to t.i.d. The intent [...] of this medication in addition to the Somerset. Patient agrees with the plan of care and will be seen in eight weeks time unless otherwise indicated. [facility] 01-10-2022 Note CONSULTATION CONSULTATION DATE: 01/10/2022 [...] at home. Medication includes at this time Somerset 5/325 t.i.d., baclofen 10 mg daily and [...] the patient and noting his distress, his Somerset 5/325 will be increased to four times a day. He will be started on Lyrica 50 mg b.i.d. 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 He will receive bilateral lumbar trigger point injections in the office today as well. He will return to the clinic in six weeks' time to re-evaluate his pain pattern and efficacy of the Lyrica. Patient does agree. [facility] 01-10-2022 Note CONSULTATION PROCEDURE DATE: 01/30/2022 [...] well with no overt complications. [facility] 11-29-2021 Note CONSULTATION PROCEDURE DATE: 11/29/2021 [...] will be followed up in the clinic. [facility] Signed and Approved by: CALVIN MOREJON . 12/06/2021 16:01:00 [facility] 11-29-2021 Note CONSULTATION CONSULTATION DATE: 11/29/2021 [...] lower lumbar area. 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 He does use heat daily which is helpful, in addition to Vicks VapoRub. Medications include baclofen 10 mg q.h.s., Somerset 5/325 t.i.d. and a multivitamin regimen. The [...] degenerative disc. PLAN: A refill for his Somerset 5/325 t.i.d. will be sent to the pharmacy. Patient will receive bilateral lumbar trigger point injections, which he agrees to receive here in the clinic. We will maintain his medications at the current regimen. He is to increase the amount of frequency of heat application and menthol heat rub. We will see the patient in six weeks' time unless otherwise indicated. [facility] Signed and Approved by: CALVIN MOREJON . 12/06/2021 16:01:00 [facility] 11-21-2021 Note OPERATIVE NOTE OPERATION DATE: [...] in good condition. CC: Shaikh Lexi M.D. [facility] Signed and Approved by: DR YENNI STANLEY . 11/28/2021 10:45:00 [facility] 10-09-2021 Hospital Discharge instructions Patient Education [...] 03/19/2005 Document Revised: 10/08/2018 Document Reviewed: 10/08/2018 [employer] Engine Patient Education 2020 TrueView. Follow Up Care 10/01/2021 07:48:54 With:Iraida James CNP Address: When:3 months only if needed [facility] Evaluation + Plan note Future Appointments Appointment Date:10/16/2021 02:20:00 PM Scheduled Provider: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 MD Location:[facility] Appointment Type:[facility] Evaluation + Plan note Future Appointments Appointment Date:04/30/2022 01:40:00 PM Scheduled Provider: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 MD Location:[facility] Appointment Type:[facility] Appointment Date:10/21/2022 03:15:00 PM Scheduled Provider:Mekhi VERGARA MD [facility] Type:URO Office Visit Diagnostic Tests PendingPSA Total 04/22/22 [facility] Evaluation + Plan note Future Appointments Appointment Date:10/21/2022 03:15:00 PM Scheduled Provider:Mekhi VERGARA MD [facility] Type:URO Office Visit Diagnostic Tests PendingUroVysion Fish and Urine Cyto ([facility]) 08/06/22 [facility] Evaluation + Plan note Future Appointments Appointment Date:06/23/2023 03:00:00 PM Scheduled Provider:Mekhi VERGARA MD [facility] App[facility] Type:URO Office Visit Diagnostic Tests PendingPSA Total 12/23/22 [facility] Evaluation note Diagnosis Fourth degree hemorrhoids- Primary Unspecified hemorrhoids with other complication documented in this encounter [facility] note* Diagnosis Pre-op evaluation- Primary Preoperative examination, unspecified Type 2 diabetes mellitus without complication, without long-term current use of insulin ([facility]) Radiculopathy, cervical region Brachial neuritis or radiculitis nos Dementia in other diseases classified elsewhere, unspecified severity, without behavioral disturbance, psychotic disturbance, mood disturbance, and anxiety ([facility]) Intracranial hemorrhage (HCC) Unspecified intracranial hemorrhage Essential (primary) hypertension Unspecified essential hypertension Sleep apnea, unspecified type Chronic obstructive pulmonary disease, unspecified COPD type ([facility]) Arteriosclerosis of coronary artery Coronary atherosclerosis of unspecified type of vessel, [place] or graft PAF (paroxysmal atrial fibrillation) (HCC) Atrial fibrillation History of DVT (deep vein thrombosis) Personal history of venous thrombosis and embolism Gastroesophageal reflux disease with esophagitis, unspecified whether hemorrhage Chronic kidney disease, stage 4 (severe) ([facility]) Calculus of kidney Hypothyroidism unspecified Iron deficiency [...] with other complication documented in this encounter [facility] course Narrative No data available for this section [facility] Discharge instructions No data available for this section General Surgery [facility] note No data available for this section [facility] Summary Purpose Family History No Family History [...] DATE CREATED AUTHOR AUTHOR'S ORGANIZ ATION 05/31/[address] [facility] DATE CREATED AUTHOR AUTHOR'S ORGANIZ ATION 11/02/2022 [facility] DATE CREATED AUTHOR AUTHOR'S ORGANIZ ATION 03/08/2023 [facility] DATE CREATED AUTHOR AUTHOR'S ORGANIZ ATION 06/20/2023 [facility] DATE CREATED AUTHOR AUTHOR'S ORGANIZ ATION 07/29/2023 [facility] DATE CREATED AUTHOR AUTHOR'S ORGANIZ ATION 08/21/2023 [facility] Source Comments (unrecognize d section and content) In the event this informatio n is protected by the Federal Confidentiality of Alcohol and Drug Abuse Patient Records regulations: The Federal rules restrict any use of the information to criminally investigate or prosecute any alcohol or drug abuse patient.[facility] the event this information is protected by the Federal Confidentiality of Alcohol and Drug Abuse Patient Records regulations: The Federal rules restrict any use of the information to criminally investigate or prosecute any alcohol or drug abuse patient.[facility] the event this information is protected by the Federal Confidentiality of Alcohol and Drug Abuse Patient Records regulations: The Federal rules restrict any use of the information to criminally investigate or prosecute any alcohol or drug abuse patient.[facility] the event this information is protected by the Federal Confidentiality of Alcohol and Drug Abuse Patient Records regulations: The Federal rules restrict any use of the information to criminally investigate or prosecute any alcohol or drug abuse patient.[facility] the event this information is protected by the Federal Confidentiality of Alcohol and Drug Abuse Patient Records regulations: The Federal rules restrict any use of the information to criminally investigate or prosecute any alcohol or drug abuse patient.[facility] the event this information is protected by the Federal Confidentiality of Alcohol and Drug Abuse Patient Records regulations: The Federal rules restrict any use of the information to criminally investigate or prosecute any alcohol or drug abuse patient.[facility] Reason for Visit (unrecogniz ed section and content) Reason Comments 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 Reason Comments Appointment Reason Comments Pre-Op Visit Reason Comments Patient Education Care Teams (unrecognized sec tion and content) Scientific Systems Analyst Relationship Specialty Start Date End Date Franky Veronica Esvin (Fax) PCP - General Internal Medicine 06/16/12 Scientific Systems Analyst Relationship Specialty Start Date End Date Franky Veronica Esvin (Fax) PCP - General Internal Medicine 06/16/12 Scientific Systems Analyst Relationship Specialty Start Date End Date Franky Veronica (Fax) PCP - General Internal Medicine 06/16/12 Scientific Systems Analyst Relationship Specialty Start Date End Date Veronica Franky A (Fax) PCP - General Internal Medicine 06/16/12 Scientific Systems Analyst Relationship Specialty Start Date End Date Franky [...] BE BASED ON THE PRIMARY CLINICAL RECORDS. [facility] [employer] [facility]. provides no warranty or guarantee of the accuracy or completeness of information in this document.
[2023-08-22 01:31] LABS: Bilirubin Urine NEGATIVE (NEGATIVE); Blood Urine NEGATIVE (NEGATIVE); Clarity Urine CLEAR (CLEAR); Color Urine YELLOW (YELLOW); Glucose Urine UA NEGATIVE (NEGATIVE); Ketones Urine TRACE mg/dL (NEGATIVE); Leukocyte Esterase Urine NEGATIVE (NEGATIVE); Nitrite Urine NEGATIVE (NEGATIVE); Protein Urine TRACE mg/dL (NEG/TRACE); Urobilinogen Urine 0.2 EU/dL (0.2-1.0); pH Urine 7.5 (5.0-9.0)
[2023-08-22 01:39] LABS: Bacteria Urine MODERATE #/HPF (NONE SEEN); Cast Seen? NONE SEEN #/LPF (NONE SEEN); Crystals Seen? None Seen #/HPF (None Seen); Mucus Urine NONE SEEN (NONE SEEN); RBC Urine 0-2 #/HPF (0-2); Squamous Epithelial Cell Urine NONE SEEN #/LPF (NONE/RARE)
[2023-08-22] MEDS: ACETAMINOPHEN 325 MG TABLET 650 MG PO (02:27)
[2023-08-22] MEDS: MORPHINE SULFATE 2 MG/ML SYRINGE IV ×3 (02:46→09:06)
[2023-08-22] MEDS: BACLOFEN 10 MG TABLET PO ×2 (04:26→10:45)
[2023-08-22 05:14] LABS: Basophils Percent Auto 0.6 % (0.2-2.0); Eosinophils Percent Auto 0.4 % (0.9-7.0); Hematocrit 36.3 % (42.0-54.0); Hemoglobin 11.7 g/dL (14.0-18.0); Immature Granulocytes Abs Auto 0.02 10^3/uL (0.00-0.03); Immature Granulocytes Pct Auto 0.4 % (0.0-0.5); Lymphocytes Percent Auto 19.4 % (20.5-60.0); Mean Corpuscular HGB Conc 32.2 g/dL (29.9-35.2); Mean Corpuscular Hemoglobin 31.4 pg (25.9-34.0); Mean Corpuscular Volume 97.3 fL (80.0-94.0); Mean Platelet Volume 10.5 fL (9.5-13.5); Monocytes Absolute Auto 0.6 10^3/uL (0.3-0.8); Monocytes Percent Auto 10.7 % (1.7-12.0); Neutrophils Absolute Auto 3.7 10^3/uL (1.4-6.5); Neutrophils Percent Auto 68.5 % (43.0-75.0); Platelet Count 118 10^3/uL (150-450); Red Blood Count 3.73 10^6/uL (4.70-6.10); Red Cell Distribution Width 12.8 % (11.0-15.0); White Blood Count 5.4 10^3/uL (4.0-11.0)
[2023-08-22 05:53] LABS: Alanine Aminotransferase <6 U/L (16-63); Albumin Globulin Ratio 0.9; Albumin Level 2.6 g/dL (3.4-5.0); Alkaline Phosphatase 59 U/L (46-116); Anion Gap 13.2; Aspartate Amino Transferase 25 U/L (15-37); BUN Creatinine Ratio 14.9; Bilirubin Total 0.8 mg/dL (0.2-1.0); Calcium 8.2 mg/dL (8.5-10.1); Carbon Dioxide 24.7 mmol/L (21.0-32.0); Chloride 107 mmol/L (98-107); Estimated GFR (African America >60 (>=60); Estimated GFR (Non-African Ame >60 (>=60); Globulin 2.8 g/dL; Glucose 128 mg/dL (74-106); Phosphorus 2.9 mg/dL (2.6-4.7); Sodium 142 mmol/L (136-145); Total Protein 5.4 g/dL (6.4-8.2)
[2023-08-22 06:45] LABS: Potassium 2.9 mmol/L (3.5-5.1)
[2023-08-22] MEDS: POTASSIUM CHLORIDE IN 0.9%NACL 1,000 ML 100 MEQ IV ×2 (10:04→20:29)
[2023-08-22] MEDS: POTASSIUM CHLORIDE 10 MEQ ER TABLET 40 MEQ PO (10:37)
[2023-08-22] MEDS: PSYLLIUM 1 GM PO (10:37)
[2023-08-22] MEDS: L. ACIDOPHILUS/L.BULGARICUS 1 PACKET GRAN.PACK PO (10:37)
[2023-08-22] MEDS: TAMSULOSIN HCL 0.4 MG CAPSULE PO (10:38)
[2023-08-22] MEDS: ALLOPURINOL 300 MG TABLET PO (10:38)
[2023-08-22] MEDS: FUROSEMIDE 20 MG TABLET 40 MG PO ×2 (10:38→20:29)
[2023-08-22] MEDS: CANAGLIFLOZIN 100 MG TABLET 300 MG PO (10:38)
[2023-08-22] MEDS: LEVOTHYROXINE SODIUM 25 MCG TABLET 50 MCG PO (10:38)
[2023-08-22] MEDS: DILTIAZEM HCL 180 MG CAP.ER.24H PO (10:38)
[2023-08-22] MEDS: METOPROLOL TARTRATE 25 MG TABLET PO ×2 (10:39→20:29)
[2023-08-22] MEDS: MULTIVITAMIN TABLET 1 TAB PO (10:39)
[2023-08-22] MEDS: ASPIRIN 81 MG TAB.CHEW PO (10:39)
[2023-08-22] MEDS: LOSARTAN POTASSIUM 50 MG TABLET 100 MG PO (10:39)
[2023-08-22] MEDS: DONEPEZIL HCL 10 MG TABLET PO (10:39)
[2023-08-22] MEDS: FAMOTIDINE 20 MG TABLET PO (10:39)
[2023-08-22] MEDS: PREGABALIN 75 MG CAPSULE PO (10:39)
[2023-08-22] MEDS: ATORVASTATIN CALCIUM 20 MG TABLET PO (10:39)
[2023-08-22 10:53] LABS: Magnesium 1.8 mg/dL (1.8-2.4)
--- NOTE | 2023-08-22 10:57 | CM.NOTE ---
Rounds made with Dr. Black, no discharge today. Discussed with pt about discharge planning and possible need for skilled therapy at discharge. Pt would like Case Management to speak with son Corey.
[2023-08-22 11:34] LABS: Glucometer 151 mg/dL (74-106)
--- NOTE | 2023-08-22 11:43 | CM.NOTE ---
Spoke with Corey, pt's son regarding discharge planning. He is in agreement that pt should go skilled at discharge for strengthening. Pt and son in agreement for [facility] in [place]. Will fax over Physicians notes, vitals, labs, PT and OT notes.
[2023-08-22] MEDS: OXYCODONE HCL 5 MG TABLET 10 MG PO (11:45)
--- NOTE | 2023-08-22 11:58 | CM.NOTE ---
Called Denise at [facility] for new referral and faxed over clinical. Physicians notes, PT and OT notes, vitals, labs, and nurse notes.
--- NOTE | 2023-08-22 12:02 | PM.HP ---
H&P: HPI History of Present Illness Chief complaint: FLU TYPE SY GASTROENTERITIS RLE CELLULITIS GEN WEA Narrative: 87 y/o male to ER with nausea, vomiting, and weakness. C/o symptoms for past 2 days. Frequent watery diarrhea. Severe nausea and poor appetite. Developed weakness and not able to get up from chair. To ER and WBC normal. Afebrile. Chest x-ray and UA normal. Noted redness and swelling of right foot concerning for cellulitis and given IV zosyn. Labs showed hypokalemia and admitted. Started IV fluids. Potassium remains low overnight. Continues to have weakness and problems with transfers. Right foot remains red and swollen. C/o severe chronic back pain. Review of Systems ROS Constitutional Denies: fever, chills or fatigue Cardiovascular Denies: chest pain, palpitations, edema or lightheadedness Respiratory Denies: shortness of breath, cough or wheezing Gastrointestinal Reports: nausea, vomiting and diarrhea; Denies: abdominal pain Genitourinary Denies: painful urination Musculoskeletal Reports: back pain [facility] Medical History (Updated 08/22/23 @ 12:09 by Abhishek Black MD) Chronic low back pain ?M54.50 - Low back pain, unspecified (ICD-10) ?G89.29 - Other chronic pain (ICD-10) Anxiety ?F41.9 - Anxiety disorder, unspecified (ICD-10) Shortness of breath ?R06.02 - Shortness of breath (ICD-10) 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 ?R33.9 - Retention of urine, unspecified (ICD-10) Ambulatory dysfunction ?R26.2 - Difficulty in walking, not elsewhere classified (ICD-10) HLD (hyperlipidemia) ?E78.5 - Hyperlipidemia, unspecified (ICD-10) Depression with anxiety ?F41.8 - Other specified anxiety disorders (ICD-10) Acute hypokalemia ?E87.6 - Hypokalemia (ICD-10) Unable to ambulate ?R26.2 - Difficulty in walking, not elsewhere classified (ICD-10) Intractable low back pain ?M54.59 - Other low back pain (ICD-10) CKD stage 3 due to type 2 diabetes mellitus ?E11.22 - Type 2 diabetes mellitus with diabetic chronic kidney disease (ICD-10) ?N18.30 - Chronic kidney disease, stage 3 unspecified (ICD-10) Lumbar stenosis with neurogenic claudication ?M48.062 - Spinal stenosis, lumbar region with neurogenic claudication (ICD-10) Osteoarthritis of right knee ?M17.11 - Unilateral primary osteoarthritis, right knee (ICD-10) Chronic pain syndrome ?G89.4 - Chronic pain syndrome (ICD-10) Chronic prescription opiate use ?Z79.891 - manager environmental health and safety (current) use of opiate analgesic (ICD-10) Osteoarthritis, 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 - Primary osteoarthritis, unspecified shoulder (ICD-10) Right shoulder pain ?M25.511 - Pain in right shoulder (ICD-10) Lumbar radiculopathy ?M54.16 - Radiculopathy, lumbar region (ICD-10) Abdominal pain ?R10.9 - Unspecified abdominal pain (ICD-10) Nausea & vomiting ?R11.2 - Nausea with vomiting, unspecified (ICD-10) Esophagitis ?K20.90 - Esophagitis, unspecified without bleeding (ICD-10) Muscle spasm ?M62.838 - Other muscle spasm (ICD-10) Lumbar stenosis ?M48.061 - Spinal stenosis, lumbar region without neurogenic claudication (ICD-10) Retraction of blood clot ?I74.9 - Embolism and thrombosis of unspecified artery (ICD-10) Inguinal hernia ?K40.90 - Unilateral inguinal hernia, without obstruction or gangrene, not specified as recurrent (ICD-10) Presence of Watchman left atrial appendage closure device ?Z95.818 - Presence of other cardiac implants and grafts (ICD-10) Low back pain ?M54.50 - Low back pain, unspecified (ICD-10) Rheumatoid arthritis ?M06.9 - Rheumatoid arthritis, unspecified (ICD-10) Osteoarthritis ?M19.90 - Unspecified osteoarthritis, unspecified site (ICD-10) Gout ?M10.9 - Gout, unspecified (ICD-10) DVT (deep venous thrombosis) ?I82.409 - Acute embolism and thrombosis of unspecified deep veins of unspecified lower extremity (ICD-10) Bladder cancer ?C67.9 - Malignant neoplasm of bladder, unspecified (ICD-10) Hearing deficit ?H91.90 - Unspecified hearing loss, unspecified ear (ICD-10) IBS (irritable bowel syndrome) ?K58.9 - Irritable bowel syndrome without diarrhea (ICD-10) Acid reflux ?K21.9 - Gastro-esophageal reflux disease without esophagitis (ICD-10) Hypothyroid ?E03.9 - Hypothyroidism, unspecified (ICD-10) Diabetes 1.5, managed as type 2 ?E13.9 - Other specified diabetes mellitus without complications (ICD-10) Kidney stone ?N20.0 - Calculus of kidney (ICD-10) Prostate cancer ?C61 - Malignant neoplasm of prostate (ICD-10) CPAP (continuous positive airway pressure) dependence ?Z99.89 - Dependence on other enabling machines and devices (ICD-10) Sleep apnea ?G47.30 - Sleep apnea, unspecified (ICD-10) Hypercholesterolemia ?E78.00 - Pure hypercholesterolemia, unspecified (ICD-10) Surgical History H/O transurethral resection of bladder tumor (TURBT) ?Z98.890 - Other specified postprocedural states (ICD-10) ?Z86.03 - Personal history of neoplasm of uncertain behavior (ICD-10) H/O arthroscopy of knee ?Z98.890 - Other specified postprocedural states (ICD-10) S/P tonsillectomy and adenoidectomy ?Z90.89 - Acquired absence of other organs (ICD-10) Previous back surgery ?Z98.890 - Other specified postprocedural states (ICD-10) H/O neck surgery ?Z98.890 - Other specified postprocedural states (ICD-10) Family History Other Family history of diabetes mellitus Social History (Updated 07/18/23 @ 22:27 by Betsy Rojo) Within the past year, how often did you have a drink containing alcohol: never Score interpretation: A score less than 4 is consistent with normal alcohol consumption. Smoking status: Never smoker Non-prescribed substance use: denies use Previous occupational history: retired Known occupational exposures/hazards: No Highest level of school completed/degree received: 12th grade, no diploma Are you now , , , , never or living with a partner: In a typical week, how many times do you talk on the telephone with family, friends, or neighbors: 3 or more times per week How often do you get together with friends or relatives: 3 or more times per week How often do you attend mandaeism or quaker services: never Do you belong to any clubs or organizations such as mandaeism groups unions, fraternal or athletic groups, or school groups: no Total score: 1 Score interpretation: A score of less than or equal to 1 indicates the most socially isolated. Little interest or pleasure in doing things: not at all Feeling down, depressed, or hopeless: not at all Feel stressed/tense/nervous/anxious/difficulty sleeping: not at all Do you think of yourself as: straight/heterosexual Gender Identity: male Meds Home Medications and Allergies Home Medications Medication Instructions Recorded Confirmed Type albuterol sulfate 90 mcg/actuation 1 inh inhalation Q4H PRN shortness 12/27/22 08/22/23 History aerosol inhaler (ProAir HFA) of breath or wheezing allopurinol 300 mg tablet 300 mg PO .QD 12/27/22 08/22/23 History cholecalciferol (vitamin D3) 25 50 mcg PO DAILY 12/27/22 08/22/23 History mcg (1,000 unit) capsule (Vitamin D3) levothyroxine 50 mcg tablet 50 mcg PO .QD 12/27/22 08/22/23 History nitroglycerin 0.4 mg sublingual 0.4 mg sublingual Q5M PRN chest 12/27/22 08/22/23 History tablet (Nitrostat) pain aspirin 81 mg capsule 81 mg PO DAILY 01/09/23 08/22/23 History diltiazem HCl 180 mg 180 mg PO DAILY 01/09/23 08/22/23 History capsule,extended release 24 hr donepezil 10 mg tablet (Aricept) 10 mg PO DAILY 01/09/23 08/22/23 History famotidine 20 mg tablet 20 mg PO DAILY 01/09/23 08/22/23 History ferrous sulfate 325 mg (65 mg 325 mg PO .every other day 01/09/23 08/22/23 History iron) tablet fluticasone propionate 50 2 spray intranasal DAILY PRN nasal 01/09/23 08/22/23 History mcg/actuation nasal congestion spray,suspension (Flonase Allergy Relief) furosemide 20 mg tablet 40 mg PO BID 01/09/23 08/22/23 History losartan 100 mg tablet 100 mg PO DAILY 01/09/23 08/22/23 History magnesium oxide,aspartate,citr 400 mg PO BEDTIME 01/09/23 08/22/23 History metoprolol tartrate 25 mg tablet 25 mg PO BID 01/09/23 08/22/23 History psyllium husk 0.4 gram capsule 0.4 g PO DAILY 01/09/23 08/22/23 History (Metamucil) tamsulosin 0.4 mg capsule (Flomax) 0.4 mg PO DAILY 01/09/23 08/22/23 History atorvastatin 20 mg tablet 20 mg PO DAILY 01/10/23 08/22/23 History baclofen 10 mg tablet 10 mg PO .QHS muscle spasm 01/10/23 08/22/23 History hydrocodone 5 mg-acetaminophen 325 1 tab PO QID PRN pain #120 tabs 06/26/23 08/22/23 Rx mg tablet Lactobacillus rhamnosus GG 10 1 cap PO DAILY 07/18/23 08/22/23 History billion cell capsule (Culturelle) dapagliflozin propanediol 10 mg 10 mg PO DAILY 07/18/23 08/22/23 History tablet (Farxiga) glipizide 5 mg tablet 5 mg PO BID 07/18/23 08/22/23 History multivitamin 1 tab PO BID 07/18/23 08/22/23 History oxycodone 5 mg tablet 10 mg PO Q6H PRN severe pain 08/22/23 08/22/23 History pregabalin 100 mg capsule (Lyrica) 100 mg PO TID 08/22/23 08/22/23 History Allergies Allergy/AdvReac Type Severity Reaction Status Date / Time tizanidine [From Zanaflex] Allergy Unknown Verified 07/18/23 19:12 acetaminophen [From Percocet] AdvReac Mild Vomiting Verified 07/18/23 19:12 cyclobenzaprine AdvReac Mild Hallucinati Verified 07/18/23 19:12 [From Flexeril] ng oxycodone [From Percocet] AdvReac Mild Vomiting Verified 07/18/23 19:12 tramadol AdvReac Mild Vomiting Verified 07/18/23 19:12 Exam Constitutional Vital Signs, click to edit/add: Last Vital Signs Temp 98.4 F 08/22/23 06:00 Pulse 71 08/22/23 07:50 Resp 18 08/22/23 07:50 BP 165/77 H 08/22/23 07:50 Pulse Ox 97 08/22/23 07:50 O2 Del Method Room Air 08/22/23 07:50 Documenting provider has reviewed patient's vital signs: yes Common normals: no apparent distress, oriented x3 and alert HENMT Common normals: normocephalic Eye Common normals: PERRL and EOMs intact bilaterally Respiratory Common normals: normal respiratory effort and clear to auscultation bilaterally Cardio Common normals: regular rate, regular rhythm, no gallops, no murmurs and no rub GI Common normals: Normal to inspection, nondistended, normoactive bowel sounds present and non-tender Extremity General: edema (2-3 + bipedal pitting edema) Right lower extremity: foot and digits (Moderate erythema on dorsum of foot) Results Labs Labs: Short CBC 08/21/23 08/22/23 Range/Units 21:40 04:45 WBC 5.8 5.4 (4.0-11.0) 10^3/uL Hgb 14.5 11.7 L (14.0-18.0) g/dL Hct 43.0 36.3 L (42.0-54.0) % Plt Count 147 L 118 L (150-450) 10^3/uL BMP 08/21/23 08/22/23 21:40 04:45 Sodium 144 142 Potassium 2.9 L* 2.9 L* Chloride 103 107 Carbon Dioxide 33.0 H 24.7 BUN 12.0 11.0 Creatinine 0.92 0.74 Glucose 148 H 128 H Calcium 9.3 8.2 L Liver Function 08/21/23 08/22/23 Range/Units 21:40 04:45 Total Bilirubin 0.8 0.8 (0.2-1.0) mg/dL AST 22 25 (15-37) U/L ALT 48 <6 L (16-63) U/L Alkaline Phosphatase 83 59 (46-116) U/L Albumin 3.7 2.6 L (3.4-5.0) g/dL Urine 08/22/23 Range/Units 01:00 Urine Color Yellow (YELLOW) Urine Clarity Clear (CLEAR) Urine pH 7.5 (5.0-9.0) Ur Specific [place] 1.020 (1.005-1.025) Urine Protein Trace (NEG/TRACE) mg/dL Urine Glucose (UA) Negative (NEGATIVE) mg/dL Assessment and Plan Assessment and Plan (1) Acute hypokalemia: (2) Gastroenteritis: (3) Cellulitis of foot, right: (4) Generalized weakness: (5) Peripheral edema: (6) Lumbar spondylosis: (7) Type 2 diabetes mellitus: Qualifiers: Diabetes mellitus travel writer insulin use: without usp use Diabetes mellitus complication status: without complication Qualified Code(s): E11.9 - Type 2 diabetes mellitus without complications (8) Hypertension: Qualifiers: Hypertension type: primary hypertension Qualified Code(s): I10 - Essential (primary) hypertension (9) Chronic diastolic heart failure: (10) Afib: Qualifiers: Atrial fibrillation type: paroxysmal Qualified Code(s): I48.0 - Paroxysmal atrial fibrillation (11) Spinal stenosis: Plan Presented with weakness and found cellulitis foot. Start zosyn for infection. Developed hypokalemia from GI symptoms and likely gastroenteritis. Check GI panel. Continue IV fluids and replace potassium orally. Monitor labs. Resume home medication. Start PT/OT for weakness. Plan for at least a 2 midnight stay for inpatient medially necessary services.
[2023-08-22] MEDS: PREGABALIN 100 MG CAPSULE PO ×2 (13:40→21:52)
[2023-08-22 16:12] LABS: Glucometer 128 mg/dL (74-106)
[2023-08-22] MEDS: GLIPIZIDE 5 MG TABLET PO (17:09)
[2023-08-22 21:41] LABS: Glucometer 122 mg/dL (74-106)
[2023-08-23 05:31] VITALS: BP 154/87; PULSE 63; RESP 18; TEMP 36.4; O2SAT 94
[2023-08-23 05:38] LABS: Basophils Percent Auto 0.7 % (0.2-2.0); Eosinophils Absolute Auto 0.1 10^3/uL (0.0-0.7); Eosinophils Percent Auto 1.3 % (0.9-7.0); Hematocrit 39.4 % (42.0-54.0); Immature Granulocytes Abs Auto 0.01 10^3/uL (0.00-0.03); Immature Granulocytes Pct Auto 0.2 % (0.0-0.5); Lymphocytes Percent Auto 17.6 % (20.5-60.0); Mean Corpuscular Hemoglobin 31.6 pg (25.9-34.0); Mean Corpuscular Volume 95.6 fL (80.0-94.0); Mean Platelet Volume 10.3 fL (9.5-13.5); Monocytes Absolute Auto 0.6 10^3/uL (0.3-0.8); Neutrophils Absolute Auto 3.9 10^3/uL (1.4-6.5); Neutrophils Percent Auto 69.2 % (43.0-75.0); Platelet Count 128 10^3/uL (150-450); Red Blood Count 4.12 10^6/uL (4.70-6.10); Red Cell Distribution Width 12.8 % (11.0-15.0); White Blood Count 5.6 10^3/uL (4.0-11.0)
[2023-08-23 05:59] LABS: Alanine Aminotransferase 33 U/L (16-63); Albumin Globulin Ratio 1.1; Albumin Level 3.1 g/dL (3.4-5.0); Alkaline Phosphatase 62 U/L (46-116); Anion Gap 9.6; Aspartate Amino Transferase 21 U/L (15-37); BUN Creatinine Ratio 10.2; Calcium 8.5 mg/dL (8.5-10.1); Carbon Dioxide 31.5 mmol/L (21.0-32.0); Chloride 104 mmol/L (98-107); Estimated GFR (African America >60 (>=60); Estimated GFR (Non-African Ame >60 (>=60); Globulin 2.9 g/dL; Glucose 109 mg/dL (74-106); Magnesium 1.8 mg/dL (1.8-2.4); Potassium 3.1 mmol/L (3.5-5.1); Sodium 142 mmol/L (136-145)
[2023-08-23] MEDS: PREGABALIN 100 MG CAPSULE PO ×3 (06:08→21:39)
[2023-08-23] MEDS: PIPERACILLIN SODIUM/TAZOBACTAM 3.375 GM in 0.9 % SODIUM CHLORIDE 50 ML IV ×3 (06:09→21:40)
[2023-08-23] MEDS: LEVOTHYROXINE SODIUM 25 MCG TABLET 50 MCG PO (06:09)
[2023-08-23] MEDS: TAMSULOSIN HCL 0.4 MG CAPSULE PO (08:55)
[2023-08-23] MEDS: CANAGLIFLOZIN 100 MG TABLET 300 MG PO (08:55)
[2023-08-23] MEDS: ALLOPURINOL 300 MG TABLET PO (08:55)
[2023-08-23] MEDS: DONEPEZIL HCL 10 MG TABLET PO (08:55)
[2023-08-23] MEDS: PSYLLIUM 1 GM PO (08:56)
[2023-08-23] MEDS: FUROSEMIDE 20 MG TABLET 40 MG PO ×2 (08:56→21:39)
[2023-08-23] MEDS: DILTIAZEM HCL 180 MG CAP.ER.24H PO (08:56)
[2023-08-23] MEDS: ASPIRIN 81 MG TAB.CHEW PO (08:56)
[2023-08-23] MEDS: FAMOTIDINE 20 MG TABLET PO (08:56)
[2023-08-23] MEDS: LOSARTAN POTASSIUM 50 MG TABLET 100 MG PO (08:56)
[2023-08-23] MEDS: MULTIVITAMIN TABLET 1 TAB PO (08:56)
[2023-08-23] MEDS: GLIPIZIDE 5 MG TABLET PO ×2 (08:56→16:40)
[2023-08-23] MEDS: L. ACIDOPHILUS/L.BULGARICUS 1 PACKET GRAN.PACK PO (08:56)
[2023-08-23] MEDS: METOPROLOL TARTRATE 25 MG TABLET PO ×2 (08:56→21:39)
[2023-08-23] MEDS: ATORVASTATIN CALCIUM 20 MG TABLET PO (08:56)
[2023-08-23] MEDS: FERROUS SULFATE 325 MG TABLET PO (08:58)
--- NOTE | 2023-08-23 09:48 | PT.DAILY ---
Physical Therapy Daily Note PT Daily Note/Assess Start: 08/23/23 09:36 Freq: Status: Active Protocol: Document 08/23/23 09:36 [id number] (Rec: 08/23/23 09:48 [id number]) Physical Therapy Daily Note/Assessment Time In/Time Out Time In 08:07 Time Out 08:18 Pain In Pain Level 9 Pain Out Pain Level 9 Subjective Subjective Patient received in bed with nursing in room. Patient reports his back is very painful, can be 10/10 at worst . Patient agreeable to participate with PT and get up into chair. Son present during treatment. Therapeutic Activity Time Therapeutic Activity Minutes (minutes) 11 Therapeutic Activity Units 1 Therapeutic Activity Treatment Bed Mobility Ability Moderate Assist,2 Person Assist Chair Transfer Ability Minimum Assist,2 Person Assist Therapeutic Activity Comments Patient initiates functional movement to A with bed mobility and transfers. Able to sit EOB without A using BRANDON UE for support. Sit to stand is MOD A +2 to RW. Patient able to complete 4 small steps to the L with RW and MIN A +2 . Patient demonstrates decreased step height. Patient is slow to task during walking. Poor control of descent to chair when sitting. VC's to use hands for safety and support. Call kohler placed within reach. Total Physical Therapy Time Total Therapy Minutes 11 Total Physical Therapy Units 1 Summary Daily Note Summary Patient able to take several small steps to the L with RW to transfer from bed to chair. Decreased step height and slow to task with functional movements. Decreased safety with functional mobility and stand to sit transfers. Patient would benefit from fdc, potentially the [facility] per son.
--- NOTE | 2023-08-23 09:48 | PT.DAILY ---
Physical Therapy Daily Note PT Daily Note/Assess Start: 08/23/23 09:36 Freq: Status: Active Protocol: Document 08/23/23 09:36 [id number] (Rec: 08/23/23 09:48 [id number]) Physical Therapy Daily Note/Assessment Time In/Time Out Time In 08:07 Time Out 08:18 Pain In Pain Level 9 Pain Out Pain Level 9 Subjective Subjective Patient received in bed with nursing in room. Patient reports his back is very painful, can be 10/10 at worst . Patient agreeable to participate with PT and get up into chair. Son present during treatment. Therapeutic Activity Time Therapeutic Activity Minutes (minutes) 11 Therapeutic Activity Units 1 Therapeutic Activity Treatment Bed Mobility Ability Moderate Assist,2 Person Assist Chair Transfer Ability Minimum Assist,2 Person Assist Therapeutic Activity Comments Patient initiates functional movement to A with bed mobility and transfers. Able to sit EOB without A using BRANDON UE for support. Sit to stand is MOD A +2 to RW. Patient able to complete 4 small steps to the L with RW and MIN A +2 . Patient demonstrates decreased step height. Patient is slow to task during walking. Poor control of descent to chair when sitting. VC's to use hands for safety and support. Call kohler placed within reach. Total Physical Therapy Time Total Therapy Minutes 11 Total Physical Therapy Units 1 Summary Daily Note Summary Patient able to take several small steps to the L with RW to transfer from bed to chair. Decreased step height and slow to task with functional movements. Decreased safety with functional mobility and stand to sit transfers. Patient would benefit from correction, potentially the [facility] per son.
[2023-08-23] MEDS: OXYCODONE HCL 5 MG TABLET 10 MG PO ×3 (10:25→22:46)
[2023-08-23 11:04] LABS: Glucometer 138 mg/dL (74-106)
[2023-08-23] MEDS: POTASSIUM CHLORIDE 10 MEQ ER TABLET 40 MEQ PO (11:41)
[2023-08-23] MEDS: CHOLECALCIFEROL (VITAMIN D3) 25 MCG/1,000 UNITS TABLET 50 MCG PO (11:41)
--- NOTE | 2023-08-23 11:53 | PM.PN ---
Progress Note: Subjective Subjective Interval history: Patient feels better this am. Pain tolerable with medication. GI symptoms improved and not having diarrhea. Able to increase diet and tolerating well. Starting to feel hungry and no further emesis. Continues to have edema in both feet. No chest pain or palpitations. No SOB or cough. Continued weakness and difficulty with transfers. Exam Constitutional Vital Signs, click to edit/add: Last Vital Signs Temp 97.6 F 08/23/23 05:31 Pulse 63 08/23/23 05:31 Resp 18 08/23/23 05:31 BP 154/87 H 08/23/23 05:31 Pulse Ox 94 L 08/23/23 05:31 O2 Del Method Room Air 08/23/23 05:31 Documenting provider has reviewed patient's vital signs: yes Common normals: no apparent distress, oriented x3 and alert HENMT Common normals: normocephalic Eye Common normals: PERRL and EOMs intact bilaterally Respiratory Common normals: normal respiratory effort and clear to auscultation bilaterally Cardio Common normals: regular rate, regular rhythm, no gallops, no murmurs and no rub GI Common normals: Normal to inspection, nondistended, normoactive bowel sounds present and non-tender Extremity General: edema (2+ pitting bipedal edema) Progress Note: Objective Labs Labs: Short CBC 08/23/23 Range/Units 05:13 WBC 5.6 (4.0-11.0) 10^3/uL Hgb 13.0 L (14.0-18.0) g/dL Hct 39.4 L (42.0-54.0) % Plt Count 128 L (150-450) 10^3/uL BMP 08/23/23 05:13 Sodium 142 Potassium 3.1 L Chloride 104 Carbon Dioxide 31.5 BUN 10.0 Creatinine 0.98 Glucose 109 H Calcium 8.5 Liver Function 08/23/23 Range/Units 05:13 Total Bilirubin 1.0 (0.2-1.0) mg/dL AST 21 (15-37) U/L ALT 33 (16-63) U/L Alkaline Phosphatase 62 (46-116) U/L Albumin 3.1 L (3.4-5.0) g/dL Progress Note: A&P Assessment and Plan (1) Acute hypokalemia: (2) Gastroenteritis: (3) Cellulitis of foot, right: (4) Generalized weakness: (5) Peripheral edema: (6) Lumbar spondylosis: (7) Type 2 diabetes mellitus: Qualifiers: Diabetes mellitus long-term insulin use: without statistical machine mechanic use Diabetes mellitus complication status: without complication Qualified Code(s): E11.9 - Type 2 diabetes mellitus without complications (8) Hypertension: Qualifiers: Hypertension type: primary hypertension Qualified Code(s): I10 - Essential (primary) hypertension (9) Chronic diastolic heart failure: (10) Afib: Qualifiers: Atrial fibrillation type: paroxysmal Qualified Code(s): I48.0 - Paroxysmal atrial fibrillation (11) Spinal stenosis: Plan GI symptoms improved and advance diet as tolerated. Continue PT/OT for weakness. Monitor vitals and labs. Likely will need SNF upon discharge for strengthening.
[2023-08-23 14:12] VITALS: BP 121/69; PULSE 63; RESP 18; TEMP 37.1; O2SAT 95
[2023-08-23 16:02] LABS: Glucometer 110 mg/dL (74-106)
[2023-08-23 20:18] VITALS: BP 145/64; PULSE 58; RESP 16; TEMP 36.5; O2SAT 95
[2023-08-23 20:22] LABS: Glucometer 144 mg/dL (74-106)
[2023-08-23 21:39] VITALS: BP 145/64
[2023-08-23] MEDS: MAGNESIUM OXIDE 400 MG TABLET PO (21:39)
[2023-08-23 21:42] VITALS: PULSE 67
[2023-08-24] MEDS: PREGABALIN 100 MG CAPSULE PO ×4 (04:56→21:48)
[2023-08-24] MEDS: PIPERACILLIN SODIUM/TAZOBACTAM 3.375 GM in 0.9 % SODIUM CHLORIDE 50 ML IV ×4 (04:56→21:55)
[2023-08-24] MEDS: LEVOTHYROXINE SODIUM 25 MCG TABLET 50 MCG PO ×2 (04:56→07:30)
[2023-08-24 05:02] VITALS: BP 148/80; PULSE 62; RESP 18; TEMP 36.7; O2SAT 94
[2023-08-24 06:11] LABS: Basophils Percent Auto 0.6 % (0.2-2.0); Eosinophils Absolute Auto 0.1 10^3/uL (0.0-0.7); Eosinophils Percent Auto 1.8 % (0.9-7.0); Hematocrit 42.2 % (42.0-54.0); Hemoglobin 14.1 g/dL (14.0-18.0); Immature Granulocytes Abs Auto 0.03 10^3/uL (0.00-0.03); Immature Granulocytes Pct Auto 0.4 % (0.0-0.5); Lymphocytes Absolute Auto 1.3 10^3/uL (1.2-3.8); Lymphocytes Percent Auto 18.8 % (20.5-60.0); Mean Corpuscular HGB Conc 33.4 g/dL (29.9-35.2); Mean Corpuscular Hemoglobin 31.3 pg (25.9-34.0); Mean Corpuscular Volume 93.6 fL (80.0-94.0); Monocytes Absolute Auto 0.7 10^3/uL (0.3-0.8); Monocytes Percent Auto 10.1 % (1.7-12.0); Neutrophils Absolute Auto 4.6 10^3/uL (1.4-6.5); Neutrophils Percent Auto 68.3 % (43.0-75.0); Platelet Count 131 10^3/uL (150-450); Red Blood Count 4.51 10^6/uL (4.70-6.10); Red Cell Distribution Width 12.9 % (11.0-15.0); White Blood Count 6.7 10^3/uL (4.0-11.0)
[2023-08-24 06:29] LABS: Magnesium 1.8 mg/dL (1.8-2.4)
[2023-08-24 06:32] LABS: Alanine Aminotransferase 65 U/L (16-63); Albumin Globulin Ratio 1.1; Albumin Level 3.3 g/dL (3.4-5.0); Alkaline Phosphatase 70 U/L (46-116); Anion Gap 10.3; Aspartate Amino Transferase 38 U/L (15-37); BUN Creatinine Ratio 12.7; Calcium 8.7 mg/dL (8.5-10.1); Carbon Dioxide 34.1 mmol/L (21.0-32.0); Chloride 99 mmol/L (98-107); Estimated GFR (African America >60 (>=60); Estimated GFR (Non-African Ame >60 (>=60); Globulin 3.1 g/dL; Glucose 130 mg/dL (74-106); Potassium 3.4 mmol/L (3.5-5.1); Sodium 140 mmol/L (136-145); Total Protein 6.4 g/dL (6.4-8.2)
[2023-08-24] MEDS: CHOLECALCIFEROL (VITAMIN D3) 25 MCG/1,000 UNITS TABLET 50 MCG PO (08:56)
[2023-08-24] MEDS: OXYCODONE HCL 5 MG TABLET 10 MG PO ×2 (08:56→16:47)
[2023-08-24] MEDS: CANAGLIFLOZIN 100 MG TABLET 300 MG PO (08:56)
[2023-08-24] MEDS: TAMSULOSIN HCL 0.4 MG CAPSULE PO (08:57)
[2023-08-24] MEDS: ALLOPURINOL 300 MG TABLET PO (08:57)
[2023-08-24] MEDS: METOPROLOL TARTRATE 25 MG TABLET PO ×2 (08:57→21:48)
[2023-08-24] MEDS: DILTIAZEM HCL 180 MG CAP.ER.24H PO (08:57)
[2023-08-24] MEDS: L. ACIDOPHILUS/L.BULGARICUS 1 PACKET GRAN.PACK PO (08:57)
[2023-08-24] MEDS: ATORVASTATIN CALCIUM 20 MG TABLET PO (08:57)
[2023-08-24] MEDS: ASPIRIN 81 MG TAB.CHEW PO (08:57)
[2023-08-24] MEDS: PSYLLIUM 1 GM PO (08:57)
[2023-08-24] MEDS: MULTIVITAMIN TABLET 1 TAB PO (08:58)
[2023-08-24] MEDS: DONEPEZIL HCL 10 MG TABLET PO (08:58)
[2023-08-24] MEDS: FUROSEMIDE 20 MG TABLET 40 MG PO ×2 (08:58→21:48)
[2023-08-24] MEDS: FAMOTIDINE 20 MG TABLET PO (08:58)
[2023-08-24] MEDS: GLIPIZIDE 5 MG TABLET PO ×2 (08:58→16:47)
[2023-08-24] MEDS: LOSARTAN POTASSIUM 50 MG TABLET 100 MG PO (08:58)
[2023-08-24 11:03] LABS: Glucometer 204 mg/dL (74-106)
--- NOTE | 2023-08-24 12:13 | P.PN_ITS ---
Progress Note: Subjective Subjective Interval history: Patient continues to improve. Continues to have back pain but tolerable with medication. GI symptoms improved and no longer having diarrhea. Mild nausea after eating but no emesis. Continues to have edema in both feet. No chest pain or palpitations. No SOB or cough. Continued weakness and difficulty with transfers. Exam Constitutional Vital Signs, click to edit/add: Last Vital Signs Temp 98.1 F 08/24/23 05:02 Pulse 62 08/24/23 05:02 Resp 18 08/24/23 05:02 BP 148/80 H 08/24/23 05:02 Pulse Ox 94 L 08/24/23 05:02 O2 Del Method Room Air 08/23/23 20:18 Documenting provider has reviewed patient's vital signs: yes Common normals: no apparent distress, oriented x3 and alert HENMT Common normals: normocephalic Eye Common normals: PERRL and EOMs intact bilaterally Respiratory Common normals: normal respiratory effort and clear to auscultation bilaterally Cardio Common normals: regular rate, regular rhythm, no gallops, no murmurs and no rub GI Common normals: Normal to inspection, nondistended, normoactive bowel sounds present and non-tender Extremity General: edema (2+ pitting bipedal edema) Right lower extremity: foot and digits (Mild erythema on dorsum of foot) Progress Note: Objective Labs Labs: Short CBC 08/24/23 Range/Units 05:49 WBC 6.7 (4.0-11.0) 10^3/uL Hgb 14.1 (14.0-18.0) g/dL Hct 42.2 (42.0-54.0) % Plt Count 131 L (150-450) 10^3/uL BMP 08/24/23 05:49 Sodium 140 Potassium 3.4 L Chloride 99 Carbon Dioxide 34.1 H BUN 14.0 Creatinine 1.10 Glucose 130 H Calcium 8.7 Liver Function 08/24/23 Range/Units 05:49 Total Bilirubin 1.0 (0.2-1.0) mg/dL AST 38 H (15-37) U/L ALT 65 H (16-63) U/L Alkaline Phosphatase 70 (46-116) U/L Albumin 3.3 L (3.4-5.0) g/dL Progress Note: A&P Assessment and Plan (1) Acute hypokalemia: (2) Gastroenteritis: (3) Cellulitis of foot, right: (4) Generalized weakness: (5) Peripheral edema: (6) Lumbar spondylosis: (7) Type 2 diabetes mellitus: Qualifiers: Diabetes mellitus nursing home insulin use: without nursing home use Diabetes mellitus complication status: without complication Qualified Code(s): E11.9 - Type 2 diabetes mellitus without complications (8) Hypertension: Qualifiers: Hypertension type: primary hypertension Qualified Code(s): I10 - Essential (primary) hypertension (9) Chronic diastolic heart failure: (10) Afib: Qualifiers: Atrial fibrillation type: paroxysmal Qualified Code(s): I48.0 - Paroxysmal atrial fibrillation (11) Spinal stenosis: Plan Patient improving and continue antibiotics. Increase PO intake. Potassium improved. Continue PT/OT for weakness. PT recommends SNF upon discharge.
[2023-08-24] MEDS: ONDANSETRON PF 4 MG/2 ML VIAL IV ×2 (13:38→21:48)
[2023-08-24 13:43] VITALS: BP 74/48; PULSE 66; RESP 18; TEMP 36.3; O2SAT 93
[2023-08-24 16:14] LABS: Glucometer 146 mg/dL (74-106)
[2023-08-24 16:50] VITALS: BP 111/58
[2023-08-24 20:16] VITALS: BP 146/80; PULSE 61; RESP 16; TEMP 36.4; O2SAT 95
[2023-08-24 20:33] LABS: Glucometer 230 mg/dL (74-106)
[2023-08-24] MEDS: INSULIN ASPART 300 UNIT/3 ML PEN SUBQ (21:47)
[2023-08-24] MEDS: MAGNESIUM OXIDE 400 MG TABLET PO (21:48)
[2023-08-25] MEDS: OXYCODONE HCL 5 MG TABLET 10 MG PO ×3 (00:25→12:53)
[2023-08-25 04:31] VITALS: BP 114/68; PULSE 67; RESP 16; TEMP 36.8; O2SAT 95
[2023-08-25 06:00] LABS: Basophils Percent Auto 0.4 % (0.2-2.0); Eosinophils Absolute Auto 0.2 10^3/uL (0.0-0.7); Eosinophils Percent Auto 2.2 % (0.9-7.0); Immature Granulocytes Abs Auto 0.03 10^3/uL (0.00-0.03); Immature Granulocytes Pct Auto 0.4 % (0.0-0.5); Lymphocytes Absolute Auto 1.5 10^3/uL (1.2-3.8); Lymphocytes Percent Auto 22.4 % (20.5-60.0); Mean Corpuscular HGB Conc 33.3 g/dL (29.9-35.2); Mean Corpuscular Volume 93.1 fL (80.0-94.0); Mean Platelet Volume 10.5 fL (9.5-13.5); Monocytes Absolute Auto 0.7 10^3/uL (0.3-0.8); Monocytes Percent Auto 9.9 % (1.7-12.0); Neutrophils Absolute Auto 4.3 10^3/uL (1.4-6.5); Neutrophils Percent Auto 64.7 % (43.0-75.0); Platelet Count 139 10^3/uL (150-450); Red Blood Count 4.51 10^6/uL (4.70-6.10); Red Cell Distribution Width 12.8 % (11.0-15.0); White Blood Count 6.7 10^3/uL (4.0-11.0)
[2023-08-25 06:22] LABS: Alanine Aminotransferase 59 U/L (16-63); Alkaline Phosphatase 64 U/L (46-116); Anion Gap 12.7; Aspartate Amino Transferase 30 U/L (15-37); BUN Creatinine Ratio 17.5; Bilirubin Total 0.8 mg/dL (0.2-1.0); Calcium 8.5 mg/dL (8.5-10.1); Carbon Dioxide 31.3 mmol/L (21.0-32.0); Chloride 99 mmol/L (98-107); Estimated GFR (African America >60 (>=60); Estimated GFR (Non-African Ame >60 (>=60); Glucose 136 mg/dL (74-106); Sodium 140 mmol/L (136-145)
[2023-08-25 06:25] LABS: Magnesium 1.9 mg/dL (1.8-2.4)
[2023-08-25] MEDS: LEVOTHYROXINE SODIUM 25 MCG TABLET 50 MCG PO (06:39)
[2023-08-25] MEDS: PREGABALIN 100 MG CAPSULE PO (06:39)
[2023-08-25] MEDS: PIPERACILLIN SODIUM/TAZOBACTAM 3.375 GM in 0.9 % SODIUM CHLORIDE 50 ML IV (06:39)
[2023-08-25 07:27] VITALS: BP 111/69; PULSE 63; RESP 18; TEMP 36.6; O2SAT 97
[2023-08-25 07:30] VITALS: PULSE 63; RESP 18
[2023-08-25 07:57] LABS: Glucometer 136 mg/dL (74-106)
[2023-08-25] MEDS: FUROSEMIDE 20 MG TABLET 40 MG PO (08:33)
[2023-08-25] MEDS: L. ACIDOPHILUS/L.BULGARICUS 1 PACKET GRAN.PACK PO (08:34)
[2023-08-25] MEDS: MULTIVITAMIN TABLET 1 TAB PO (08:34)
[2023-08-25] MEDS: PSYLLIUM 1 GM PO (08:34)
[2023-08-25] MEDS: ASPIRIN 81 MG TAB.CHEW PO (08:35)
[2023-08-25] MEDS: METOPROLOL TARTRATE 25 MG TABLET PO (08:35)
[2023-08-25] MEDS: TAMSULOSIN HCL 0.4 MG CAPSULE PO (08:35)
[2023-08-25] MEDS: ALLOPURINOL 300 MG TABLET PO (08:35)
[2023-08-25] MEDS: CHOLECALCIFEROL (VITAMIN D3) 25 MCG/1,000 UNITS TABLET 50 MCG PO (08:35)
[2023-08-25] MEDS: DONEPEZIL HCL 10 MG TABLET PO (08:35)
[2023-08-25] MEDS: DILTIAZEM HCL 180 MG CAP.ER.24H PO (08:35)
[2023-08-25] MEDS: ATORVASTATIN CALCIUM 20 MG TABLET PO (08:35)
[2023-08-25] MEDS: FAMOTIDINE 20 MG TABLET PO (08:36)
[2023-08-25] MEDS: LOSARTAN POTASSIUM 50 MG TABLET 100 MG PO (08:36)
[2023-08-25] MEDS: GLIPIZIDE 5 MG TABLET PO (08:38)
[2023-08-25] MEDS: FERROUS SULFATE 325 MG TABLET PO (08:39)
[2023-08-25] MEDS: CANAGLIFLOZIN 100 MG TABLET 300 MG PO (08:44)
--- NOTE | 2023-08-25 09:15 | CM.NOTE ---
Addendum entered by Sade Mcmullen 08/25/23 09:16: IMM was signed on 08/22- late entry. Original Note: Important Message From Medicare discussed with pt, pt verbalizes understanding and signs paper. Original given to pt and copy placed in pt's chart.
--- NOTE | 2023-08-25 10:47 | CM.NOTE ---
Rounds made with Dr. Black, pt will discharge to [facility] today for skilled therapy.
--- NOTE | 2023-08-25 11:40 | P.DS_ITS ---
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 87 y/o male to ER with nausea, vomiting, and weakness. C/o symptoms for past 2 days. Frequent watery diarrhea. Severe nausea and poor appetite. Developed weakness and not able to get up from chair. To ER and WBC normal. Afebrile. Chest x-ray and UA normal. Noted redness and swelling of right foot concerning for cellulitis and given IV zosyn. Labs showed hypokalemia and admitted. Hospital course: Started IV fluids and replaced potassium. Continued to have weakness and problems with transfers and started PT/OT. Resumed home medication. Continued zosyn for cellulitis. Slowly improved in hospital. GI symptoms improved and mild nausea. Able to advance diet and tolerated oral intake. Diarrhea resolved. Pain tolerable with medication. PT recommended SNF upon discharge. Transferred to SNF in stable condition. Will take oral augmentin x 10 days. Resume home medication as directed. Time Spent with Patient Time attestation: Total time spent providing and/or coordinating discharge services: Exam Constitutional Vital Signs, click to edit/add: Last Vital Signs Temp 97.9 F 08/25/23 07:27 Pulse 63 08/25/23 07:30 Resp 18 08/25/23 07:30 BP 111/69 08/25/23 07:27 Pulse Ox 97 08/25/23 07:27 O2 Del Method Room Air 08/25/23 07:27 Documenting provider has reviewed patient's vital signs: yes Common normals: no apparent distress, oriented x3 and alert HENMT Common normals: normocephalic Eye Common normals: PERRL and EOMs intact bilaterally Respiratory Common normals: normal respiratory effort and clear to auscultation bilaterally Cardio Common normals: regular rate, no gallops, no murmurs and no rub GI Common normals: Normal to inspection, nondistended, normoactive bowel sounds present and non-tender Extremity General: edema (2+ bipedal pitting edema) DS: Data Data Completed and Pending Labs on day of discharge: Labs from last 24 hours 08/25/23 08/25/23 08/24/23 07:56 05:24 20:32 WBC 6.7 RBC 4.51 L Hgb 14.0 Hct 42.0 MCV 93.1 MCH 31.0 MCHC 33.3 RDW 12.8 Plt Count 139 L MPV 10.5 Neut % (Auto) 64.7 Lymph % (Auto) 22.4 [place] % (Auto) 9.9 Eos % (Auto) 2.2 Baso % (Auto) 0.4 Neut # (Auto) 4.3 Lymph # (Auto) 1.5 [place] # (Auto) 0.7 Eos # (Auto) 0.2 Baso # (Auto) 0.0 Abs Immat Gran (auto) 0.03 Imm/Tot Granulo (auto) 0.4 Sodium 140 Potassium 3.0 L Chloride 99 Carbon Dioxide 31.3 Anion Gap 12.7 BUN 20.0 H Creatinine 1.14 Est GFR ( Amer) >60 Est GFR (Non-Af Amer) >60 BUN/Creatinine Ratio 17.5 Glucose 136 H Calcium 8.5 Magnesium 1.9 Total Bilirubin 0.8 AST 30 ALT 59 Alkaline Phosphatase 64 Total Protein 6.0 L Albumin 3.0 L Globulin 3.0 Albumin/Globulin Ratio 1.0 POC Glucose 136 H 230 H 08/24/23 16:13 WBC RBC Hgb Hct MCV MCH MCHC RDW Plt Count MPV Neut % (Auto) Lymph % (Auto) [place] % (Auto) Eos % (Auto) Baso % (Auto) Neut # (Auto) Lymph # (Auto) [place] # (Auto) Eos # (Auto) Baso # (Auto) Abs Immat Gran (auto) Imm/Tot Granulo (auto) Sodium Potassium Chloride Carbon Dioxide Anion Gap BUN Creatinine Est GFR ( Amer) Est GFR (Non-Af Amer) BUN/Creatinine Ratio Glucose Calcium Magnesium Total Bilirubin AST ALT Alkaline Phosphatase Total Protein Albumin Globulin Albumin/Globulin Ratio POC Glucose 146 H Preliminary micro results at discharge 08/21/23 22:10 - Preliminary Blood NO GROWTH AT 36-48 HOURS. FINAL TO FOLLOW. 08/21/23 22:02 Blood Culture Result 1 - Preliminary Blood NO GROWTH AT 36-48 HOURS. FINAL TO FOLLOW. Discharge Plan Discharge Disposition: Xfer SNF Condition: Fair Discharge Medications: New amoxicillin-pot clavulanate 875-125 mg tablet 1 tab PO Q12H 10 Days Qty: 20 0RF oxycodone 10 mg tablet 10 mg PO QID PRN (Reason: pain) 5 Days Qty: 20 0RF Continued donepezil [Aricept] 10 mg tablet 10 mg PO DAILY aspirin 81 mg capsule 81 mg PO DAILY diltiazem HCl 180 mg capsule,extended release 24hr 180 mg PO DAILY ferrous sulfate 325 mg (65 mg iron) tablet 325 mg PO .every other day famotidine 20 mg tablet 20 mg PO DAILY tamsulosin [Flomax] 0.4 mg capsule 0.4 mg PO DAILY fluticasone propionate [Flonase Allergy Relief] 50 mcg/actuation spray,suspension 2 spray intranasal DAILY PRN (Reason: nasal congestion) Rx Instructions: administer into each nostril furosemide 20 mg tablet 40 mg PO BID losartan 100 mg tablet 100 mg PO DAILY magnesium oxide,aspartate,citr 400 mg magnesium capsule 400 mg PO BEDTIME psyllium husk [Metamucil] 0.4 gram capsule 0.4 g PO DAILY metoprolol tartrate 25 mg tablet 25 mg PO BID atorvastatin 20 mg tablet 20 mg PO DAILY baclofen 10 mg tablet 10 mg PO .QHS oxycodone 5 mg tablet 10 mg PO Q6H PRN (Reason: severe pain) pregabalin [Lyrica] 100 mg capsule 100 mg PO TID 5 Days Qty: 15 0RF Culturelle 10 billion cell capsule 1 cap PO DAILY multivitamin Tablet 1 tab PO BID glipizide 5 mg tablet 5 mg PO BID dapagliflozin propanediol [Farxiga] 10 mg tablet 10 mg PO DAILY allopurinol 300 mg tablet 300 mg PO .QD levothyroxine 50 mcg tablet 50 mcg PO .QD cholecalciferol (vitamin D3) [Vitamin D3] 25 mcg (1,000 unit) capsule 50 mcg PO DAILY albuterol sulfate [ProAir HFA] 90 mcg/actuation HFA aerosol inhaler 1 inh inhalation Q4H PRN (Reason: shortness of breath or wheezing) Hold Instructions: pt does not remember nitroglycerin [Nitrostat] 0.4 mg tablet, sublingual 0.4 mg sublingual Q5M PRN (Reason: chest pain) Rx Instructions: do not exceed 3 doses per episode Discontinued hydrocodone-acetaminophen 5-325 mg tablet 1 tab PO QID PRN (Reason: pain) Qty: 120 0RF Forms: Portal Instructions
--- NOTE | 2023-08-25 11:41 | PT.DAILY ---
Physical Therapy Daily Note PT Daily Note/Assess Start: 08/23/23 09:36 Freq: Status: Active Protocol: Document 08/25/23 10:25 MARGARITO (Rec: 08/25/23 11:41 MARGARITO [id number]) Physical Therapy Daily Note/Assessment Time In/Time Out Time In 10:24 Time Out 10:45 Subjective Subjective Patient reports pain is better controlled today, but still very painful with back pain. Agrees and is very motivated to get up into chair. Therapeutic Exercise Time Therapeutic Exercise Minutes (minutes) 10 Therapeutic Exercise Units 0 Therapeutic Exercise Treatment Therapeutic Exercise Treatment Supine and seated exercises for B LE strength as tolerated with back pain. Therapeutic Activity Time Therapeutic Activity Minutes (minutes) 11 Therapeutic Activity Units 1 Therapeutic Activity Treatment Bed Mobility Ability Contact Guard Assist Chair Transfer Ability Contact Guard Assist Therapeutic Activity Comments Supine to sit CGA, patient was able to brings LE's over and use log rolling techqine to push up into sitting with verbal cues only. Patient moves slow but is able to complete task. Sit to stand with bed elevated CGA at RW. Transfer from bed to chair with RW CGA. Due to weakness patient does not straighten LE 's, and did required cues to stand up straighter. Again patient moved slow and was unsteady but no significant LOB and completed task with CGA for safety. Total Physical Therapy Time Total Therapy Minutes 21 Total Physical Therapy Units 1 Summary Daily Note Summary Improved ability with bed mobility and transfers. Patient is still very weak in B LE's requiring CGA for safety, but again improved from 2 assist to 1 assist over past couple days. Continue to recommend SNF to promote B LE strength and assure independence with transfers.
[2023-08-25 11:49] LABS: Glucometer 131 mg/dL (74-106)
--- NOTE | 2023-08-25 12:44 | SWNOTE1 ---
MARCELLA completed HENS. MARCELLA sent over [facility]. [facility] is not open today, MARCELLA called [facility] and they can transport at 1:00pm. MARCELLA let nursing know. MARCELLA called family to let them know time as well. Pt is going to [facility].
--- NOTE | 2023-08-25 13:27 | PC.NURSE ---
Report called to [facility]. Discharged via wheelchair and taken in bus.
== END 2023-08-25 13:22 | DRG 641 ==
LOC: ER 08-22 00:36 → MS 08-22 01:09
PROVIDERS: Nurse Practitioner Acute Care; Admitting Provider Family Medicine; Emergency Provider Emergency Medicine; PCP Internal Medicine; Visit Provider Family Medicine
DX: E87.6 Hypokalemia (principal); L03.115 Cellulitis of right lower limb; I50.32 Chronic diastolic (congestive) heart failure; I13.0 Hypertensive heart and chronic kidney disease with heart failure and stage 1 through stage 4 chronic kidney disease, or unspecified chronic kidney disease; K52.9 Noninfective gastroenteritis and colitis, unspecified; R53.1 Weakness; R60.9 Edema, unspecified; I48.0 Paroxysmal atrial fibrillation; M48.00 Spinal stenosis, site unspecified; Z79.899 Other long term (current) drug therapy; Z79.84 Long term (current) use of oral hypoglycemic drugs; F41.8 Other specified anxiety disorders; R26.2 Difficulty in walking, not elsewhere classified; E11.628 Type 2 diabetes mellitus with other skin complications; E11.22 Type 2 diabetes mellitus with diabetic chronic kidney disease; N18.30 Chronic kidney disease, stage 3 unspecified; M17.11 Unilateral primary osteoarthritis, right knee; Z79.891 Long term (current) use of opiate analgesic; M19.019 Primary osteoarthritis, unspecified shoulder; Z95.818 Presence of other cardiac implants and grafts; M06.9 Rheumatoid arthritis, unspecified; Z86.718 Personal history of other venous thrombosis and embolism; Z85.51 Personal history of malignant neoplasm of bladder; E03.9 Hypothyroidism, unspecified; K21.9 Gastro-esophageal reflux disease without esophagitis; Z87.442 Personal history of urinary calculi; G47.30 Sleep apnea, unspecified; E78.00 Pure hypercholesterolemia, unspecified; M48.062 Spinal stenosis, lumbar region with neurogenic claudication; M47.26 Other spondylosis with radiculopathy, lumbar region; H91.90 Unspecified hearing loss, unspecified ear; Z85.46 Personal history of malignant neoplasm of prostate; Z66 Do not resuscitate
CPT/HCPCS: 0202U; 36415; 71045; 80053; 81001; 82948; 83605; 83690; 83735; 83880; 84100; 84484; 85025; 87040; 87507; 87804; 93005; 96361; 96365; 96366; 96367; 96368; 96375; 96376; 97161; 97165; 97530; 97535; 99285; J2270; J2405; J2543; J3480

== ENCOUNTER 2023-09-13 10:30 | Inpatient (IN) | payer MEDICARE, SELFPAY ==
[2023-09-13] VITALS (28 sets, daily range): BP systolic 78–118; BP diastolic 50–70; PULSE 63–94; RESP 16–20; TEMP 36.3–36.9; O2SAT 91–97; BMI 25.6; BMI 25.9
--- OUTSIDE RECORDS SUMMARY | 2023-09-13 10:40 | XMS_ITS | CCD ---
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 Name Role Phone PHYSICIAN, DEFAULT Unavailable Unavailable PHYSICIAN, DEFAULT Unavailable Unavailable KIERA LOMBARDO Primary Care Physician Franky Veronica Primary Care Provider SHAIKH ELLIOTT Primary Care Physician [phone] AURELIO DURAES, TRISTIN Referring Unava ilable VERONICA, [...] Care Unavailable SHASHI, DR WALLS Consulting Unavailable NIMOUKAROBERTEL, DR WALLS Admitting Unavailable MOUKARBEL, DR WALLS [...] Admitting Unavailable MOREJON ., CALVIN Consulting Unavailable [facility], [facility] Primary Care Unavailable WINSTON ., DR PAULINE Ring Attending Unavailable WINSTON ., DR PAULINE Ring Admitting Unavailable [facility], [facility] Primary Care Unavailable WEST, DR LEEANN Valles Consulting Unavailable MOUKARBEL, DR WALLS Admitting Unavailable MOUKARBEL, DR WALLS Attending Unavailable MOUKARBEL, DR WALLS Consulting Unavailable [facility], [facility] Primary Care Unavailable AKKINA, REMY Admitting Unavailable AKKINA, REMY Attending Unavailable WINSTON ., DR PAULINE Ring Consulting Unavailable AKKINA, REMY Consulting Unavailable REQUEST, DR NONE LISTED Primary Care Unavaila ble NILL ., DR HYMAN Admitting Unavailable NILL ., DR HYMAN Attending Unavailable NILL ., DR HYMAN Consulting Unavailable [facility], [facility] Consulting Unavailable NEFCY, BRITTANIE Consulting Unavailable [facility], [facility] Primary Care Unavailable VERGARA ., DR JASSO Admitting Unavailable VERGARA ., DR JASSO Attending Unavailable VERGARA ., DR JASSO Consulting Unavailable [facility], [facility] Primary Care Unavailable WINSTON ., DR PAULINE Ring Consulting Unavailable WINSTON ., DR PAULINE Ring Admitting Unavailable WINSTON ., DR PAULINE Ring Attending Unavailable LAKSHMIPATHY ., ROGELIO Attending Sweta vailable LAKSHMIPATHY ., ROGELIO Admitting Sweta vailable [facility], [facility] Primary Care Unavailable [facility], [facility] Primary Care Unavailable NILL ., DR HYMAN Attending Unavailable NILL ., DR HYMAN Consulting Unavailable NILL ., DR HYMAN Admitting Unavailable AGUBOSIM, ELIZ Consulting Unavailable RICKKOJOE KANDICE Consulting Unavailable [facility], [facility] Primary Care Unavailable NILL ., DR HYMAN Attending Unavailable NILL ., DR HYMAN Admitting Unavailable [facility], [facility] Primary Care Unavailable VERGARA ., DR JASSO Admitting Unavailable VERGARA ., DR JASSO Attending Unavailable VERGARA ., DR JASSO Consulting Unavailable WINSTON ., DR PAULINE Ring Attending Unavailable WINSTON ., DR PAULINE Ring Consulting Unavailable [facility] Primary Care Unavailable WINSTON ., DR PAULINE [...] HYMAN Consulting Unavailable OLIVIA, KATE Consulting Unavailable CARMINA LOVE Consulting Unavailable MICHAEL SPIVEY Consulting Unavailable Giedraitis , Andrius Gilmore Attending Unavailable Giedraitis , Andrius Haiyttonya Attending Unavailable Giedraitis , Andrius Vytautelizabeth Attending Unavailable Giedraitis , Andrius Vytautelizabeth Attending Unavailable Giedraitis , Andrius Gilmore Attending Unavailable Giedraitis , Andju Gilmore Attending Unavailable FAWPIETRO, Attending Unavailable FAAIDAN, Attending Unavailable NITESH GANT Attending Unavailable FAWMARISSAD, DE LA O Referring Unavailable CARMINA CROOK Attending Unavailable FAWPIETRO, Referring Unavailable FAWPIETRO, Attending Unavailable CARMINA CROOK Attending Unavailable FAWPIETRO, DE LA O Referring Unavailable FaShaikh pearl MD Primary Care Provider ANDREA COLORADO Attending Unavailable ENRISSA ORDONEZ Attending Unavailable NERISSA ORDONEZ Referring Unavailable NERISSA ORDONEZ Attending Unavailable NERISSA ORDONEZ Attending Unavailable FAAIDAN, DE LA O Primary Care Unavailable Mekhi VERGARA Attending Unavailable VERGARA, Mekhi R Attending Unavailable VERGARA, Mekhi R Admitting Unavailable VERGARA Mekhi R Referring Unavailable VERGARAMekhi R Attending Unavailable VERGARA, Mekhi R Admitting Unavailable FAWWAD, DE LA O Primary Care Unavailable Mekhi VERGARA Attending Unavailable Allergies Allergy Classification Reported Allergen(s) Allergy Type Date of Onset Reaction(s) Facility (10 sources) Acetaminophen / HYDROcodone; Translations: [acetaminophen-hydr ocodone] Drug Allergy Nausea and vomiting [facility] (16 sources) Acetaminophen / oxyCODONE; Translations: [acetaminophen-oxyc odone] Drug Allergy 06-03-20 [address] [facility] (19 sources) tiZANidine; Translations: [tizanidine] Drug Allergy 05-11-20 19 Mental Status Change, Vomiting, GI intolerance, Hallucinations [facility] (12 sources) traMADol; Translations: [tramadol] Drug Allergy 02-28-20 [address] GI intolerance [facility] (3 sources) Acetaminophen / oxyCODONE; Translations: [OXYCODONE-ACETAMIN OPHEN] Drug Allergy 06-03-20 16 GI intolerance, Unknown [facility] (2 sources) Acetaminophen / HYDROcodone Drug Allergy 06-03-20 16 [facility] (2 sources) Acetaminophen / oxyCODONE Drug Allergy 06-03-20 16 [facility] (2 sources) cyclobenzaprine Drug Allergy 07-18-19 17 [facility] (1 source) tiZANidine Drug Allergy [facility] (2 sources) traMADol Drug Allergy 06-12-20 16 [facility] (1 source) Acetaminophen / HYDROcodone Drug Allergy 06-18-20 23 GI intolerance [facility] Medications Current Medications Medication Drug Class(es) Dates Sig (Normalized) Sig (Original) [facility] oral capsule (4 sources) Start: 06-01-2019 take 1 capsule by mouth twice daily [facility] oral capsule cap(s), Oral, BID, Refill(s) 0, Prophylaxis Start Date: 06/01/19 Status: Ordered [id number] 200 actuat albuterol 0.09 mg/actuat metered dose inhaler (8 sources) beta2-Adrenergic Agonist Start: 10-15-2021 take 2 puff(s) by inhalation every six hours as needed for wheezing ProAir HFA 90 mcg/inh inhalation aerosol 2 puff(s), Inhalation, q6hr as needed for wheezing, Refill(s) 0 Start Date: 10/15/21 Status: Ordered take 2 puff(s) by in halation every four hours for wheezing albuterol HFA 90 mcg/act inhaler Inhale 2 puffs every 4 (four) hours if needed for wheezing 0 Active ALBUTEROL SULFAT E (PROVENTIL INHALATION) Inhale as instructed. 0 Active Comment on above: Inhale as instructed . allopurinol 300 mg oral tablet (16 sources) Xanthine Oxidase Inhibitor Start: 06-01-20 take 1 tablet by mouth once daily allopurinol (Zyloprim) 300 MG tablet Indications: Gout, unspecified cause, unspecified chronicity, unspecified site TAKE 1 TABLET BY MOUTH DAILY 90 tablet 0 06/23/2023 Active Comment on above: Take 300 mg by mouth once daily. ALPRAZolam 0.5 mg oral tablet (3 sources) Benzodiazepine Start: 06-18-20 alprazolam 0.5 mg Tab Refills(s) 0 Start Date: 06/20/23 Status: Ordered amLODIPine 5 mg oral tablet (8 sources) Dihydropyridine Calcium Channel Rain Start: 07-10-19 End: 05-10-20 take 5 mg by mouth once daily amlodipine 5 mg, Oral, Daily, Refills(s) 0, High blood pressure Start Date: 07/10/21 Status: Ordered Comment on above: Take 5 mg by mouth o nce daily. aspirin 81 mg oral capsule (19 sources) Platelet Aggregation Inhibitor, Nonsteroidal Anti-inflammatory Drug [...] Ordered take 1 tablet by ravi th in the morning aspirin 81 MG EC tablet Take 81 mg by mouth in the morning. 0 Active Comment on above: Take 81 mg by mouth once daily. atorvastatin 20 mg oral tablet (15 sources) HMG-CoA Reductase Inhibitor Start: 2 take 1 tablet by mouth once daily atorvastatin 20 mg Tab 20 mg = 1 tab(s), Oral, Daily, Refills(s) 0 Start Date: 10/15/21 Status: Ordered Comment on above: Take 20 mg by mouth once daily. baclofen 10 mg oral tablet (15 sources) gamma-Aminobutyric Acid-ergic Agonist Start: 2 take 1 tablet by mouth at bedtime baclofen 10 mg Tab 10 mg = 1 tab(s), Oral, Bedtime, Refills(s) 0 Start Date: 10/15/21 Status: Ordered take 1 tablet by mouth once heidi y baclofen (Lioresal) 10 MG tablet Take 10 mg by mouth 1 (one) time each day 0 Active Comment on above: Take 10 mg by mouth three times daily. Centrum Silver oral tablet (9 sources) Start: 9 take 1 tablet by mouth once daily Centrum Silver oral tablet 1 tab(s), Oral, Daily, Refill(s) 0, Prophylaxis Start Date: 06/01/19 Status: Ordered cetirizine hydrochloride 10 mg oral capsule (6 sources) Histamine-1 Receptor Antagonist Start: 2 take 1 capsule by mouth once daily as needed cetirizine 10 mg oral capsule 10 mg = 1 cap(s), Oral, Daily, PRN for allergy symptoms, Refills(s) 0 Start Date: 04/22/22 Status: Ordered take 1 tablet by mouth in the mo rning cetirizine (ZyrTEC) 10 MG tablet Take 10 mg by mouth in the morning. 0 Active cholecalciferol 0.25 mg oral capsule (1 source) Vitamin D take 1 capsule by mouth in the morning cholecalciferol (Vitamin D-3) 250 MCG (30679 UT) capsule Take 1,000 Units by mouth in the morning. 0 Active clopidogrel 75 mg oral tablet (3 sources) P2Y12 Platelet Inhibitor Start: 023 clopidogrel 75 mg Tab Refills(s) 0 Start Date: 12/23/22 Status: Ordered dapagliflozin 5 mg oral tablet (11 sources) Sodium-Glucose Cotransporter 2 Inhibitor Start: 022 take 1 tablet by mouth once daily Farxiga 5 mg oral tablet 5 mg = 1 tab(s), Oral, Daily, Refills(s) 0 Start Date: 04/22/22 Status: Ordered take 1 tablet by ravi th once daily at breakfast dapagliflozin (FARXIGA) 10 mg tablet Anshu e by mouth daily with breakfast. 0 Active Comment on above: Take by mouth daily with breakfast. diazePAM 2 mg oral tablet (1 source) Benzodiazepine Start: 07-28-19 End: 08-27-19 take 1 tablet by mouth at bedtime diazePAM (Valium) 2 MG tablet Indications: Chronic bilateral low back pain with bilateral sciatica Take 1 tablet (2 mg) by mouth at bedtime 30 tablet 0 07/28/2023 08/27/2023 Active 24 hr dilTIAZem hydrochloride 180 mg extended release oral capsule (12 sources) Calcium Channel Rain Start: 04-22-20 diltiazem CD 180 mg/24 hours Cap-ER 180 mg = 1 cap(s), Oral, Daily, Refills(s) 0 Start Date: 04/22/22 Status: Ordered Comment on above: Take 180 mg by mouth once daily. donepezil hydrochloride 10 mg oral tablet (16 sources) Start: 06-01-20 take 1 tablet by mouth once daily Aricept 10 mg Tab 10 mg = 1 tab(s), Oral, Daily, alzheimers, Other (see comment) Start Date: 06/01/19 Status: Ordered Comment on above: Take 10 mg by mouth daily at bedtime. dorzolamide (7 sources) Carbonic Anhydrase Inhibitor Start: 06-01-20 take 1 drop(s) into the eye(s) three times daily dorzolamide ophthalmic drop(s), Eye-Both, TID, Refill(s) 0, glaucoma, Other (see comment) Start Date: 06/01/19 Status: Ordered dorzolamide (FATIMAH SOPT) 2 % ophthalmic solution three times daily. 0 Active Comment on above: three times daily. dorzolamide / Timolol (10 sources) Carbonic Anhydrase Inhibitor, beta-Adrenergic Rain Start: 07-10-2021 take 1 drop(s) into the eye(s) twice daily dorzolamide-timolol ophthalmic 1 drop, Eye-Both, BID, Refill(s) 0, Glaucoma, Other (see comment) Start Date: 07/10/21 Status: Ordered take 1 drop(s) into the eye(s) in the morning dorzolamide-timolol (Cosopt) 2-0.5 % oph thalmic solution Administer 1 drop into both eyes in the morning and 1 drop before bedtime. 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 90 tablet 0 07/03/2023 10/01/2023 Active Start: 06-20-2023 escitalopram 5 mg oral tablet Refills(s) 0 Start Date: 06/20/23 Status: Ordered famotidine 20 mg oral tablet (16 sources) Histamine-2 Receptor Antagonist Start: 07-10-2021 take [...] sulfate 325 mg delayed release oral tablet (12 sources) Start: 04-22-2022 take 1 tablet by mouth once daily ferrous sulfate 325 mg oral enteric coated tablet 325 mg = 1 tab(s), Oral, Daily, Refills(s) 0 Start Date: 04/22/22 Status: Ordered take 1 tablet by mouth at [place] ferrous sulfate 325 (65 Fe) MG tablet Take 325 mg by mouth in the morning. Take with meals. 0 Active Comment on above: Take 325 mg by [...] once daily. furosemide 40 mg oral tablet (13 sources) Loop Diuretic Start: 2021 End: 2023 take 1 tablet by mouth in the morning furosemide (Lasix) 40 MG tablet Indications: Chronic venous insufficiency of lower extremity , Chronic heart failure with preserved ejection fraction (CMS/HCC) Take 1 tablet (40 mg) by mouth in the morning and 1 tablet (40 mg) before bedtime. 180 tablet 1 08/21/2023 02/17/2024 Active Comment on above: Take 40 mg by [...] (4 sources) Thiazide Diuretic, Angiotensin 2 Receptor Rain Start: 2018 take 1 tablet by mouth [...] rhamn osus GG (9 sources) Start: 04-22-2022 [facility] Refill(s) 0 Start Date: 04/22/22 Status: Ordered Start: 06-01-2019 take 1 tablet by ravi th once daily [facility] 1 tab, Oral, Daily, Refill(s) 0, Constipation [...] Ordered levothyroxine sodium 0.05 mg oral tablet (12 sources) l-Thyroxine Start: 10-15-2021 take 1 tablet [...] morning. losartan potassium 100 mg oral tablet (12 sources) Angiotensin 2 Receptor Rain Start: 04-22-2022 take 1 tablet by mouth [...] daily. metoprolol tartrate 25 mg oral tablet (16 sources) beta-Adrenergic Rain Start: 06-01-2019 take 1 tablet by mouth twice daily metoprolol tartrate (Lopressor) 25 MG tablet Indications: Paroxysmal atrial fibrillation (CMS/HCC) , Chronic heart failure with preserved ejection fraction (CMS/HCC) TAKE 1 TABLET BY MOUTH TWICE DAILY 180 tablet 0 06/23/2023 Active metoprolol tartr ate, short acting, (LOPRESSOR) 50 mg tablet Take 25 mg by mouth twice daily. 0 Active Comment on above: Take 25 mg by mouth twice daily. Multiple Vitamin (MULTIVITAMIN ADULT PO) (1 source) Multiple Vitamin (MULTIVITAMIN ADULT PO) Take by mouth 0 Active Nitro 0.4 mg Tab (8 sources) Start: 07-10-2021 Nitro 0.4 mg Tab = 1 tab(s), SubLingual, q5min, PRN Chest pain, # 25 tab(s), Refills(s) 3 Start Date: 07/10/21 Status: Ordered nitroglycerin 0.4 mg/actuat mucosal spray (8 sources) Nitrate Vasodilator Start: 07-10-2021 Nitro 0.4 mg Tab = 1 tab(s), SubLingual, q5min, PRN Chest pain, # 25 tab(s), Refills(s) 3 Start Date: 07/10/21 Status: Ordered nitroglycerin (N itrostat) 0.[address] 0.4 mg under the tongue every 5 (five) minutes if needed for chest pain 0 Active Comment on above: Dissolve 0.4 [...] mouth e very 8 hours as needed. oxyCODONE hydrochloride 5 mg oral tablet (2 sources) Opioid Agonist Start: 4 End: 4 take 2 tablets by mouth every six hours for pain oxyCODONE (Roxicodone) 5 MG immediate release tablet Indications: Chronic bilateral low back pain with bilateral sciatica Take 2 tablets (10 mg) by mouth every 6 (six) hours if needed for severe pain 240 tablet 0 08/21/2023 09/20/2023 Active pantoprazole 40 mg extended release oral tablet (6 sources) Proton Pump Inhibitor Start: 2 take 1 tablet by mouth once daily pantoprazole 40 mg Oral EC Tab 40 mg = 1 tab(s), Oral, Daily, # 30 tab(s), Refills(s) 0, Pharmacy: [facility], 177.8, cm, 07/10/21 15:02:00 EST, Height/Length Dosing, 88.6, kg, 07/10/21 15:02:00 EST, Weight Dosing Start Date: 07/10/21 Status: Ordered Start: 07-10-2021 take 1 tablet by [facility] once daily pantoprazole 40 mg Oral EC Tab 40 mg = 1 tab(s), Oral, Daily, # 30 tab(s), Refills(s) 0, Pharmacy: [facility], 177.8, cm, 07/10/21 15:02:00 EST, Height/Length Dosing, 88.6, kg, 07/10/21 15:02:00 EST, Weight Dosing Start Date: 07/10/21 Status: Ordered pregabalin 75 mg oral capsule (12 sources) Start: 04-22-2022 take 1 capsule by mouth twice daily pregabalin 75 mg Cap 75 mg = 1 cap(s), Oral, BID, Refills(s) 0 Start Date: 04/22/22 Status: Ordered take 1 capsule by [facility] three times daily pregabalin (LYRICA) 50 mg capsule Take 5 0 mg by mouth three times daily. 0 Active Comment on above: Take 50 mg by mouth three times daily. ProAir HFA 90 mcg/inh inhalation aerosol (7 sources) Start: 2 take 2 puff(s) by inhalation every six hours as needed for wheezing ProAir HFA 90 mcg/inh inhalation aerosol 2 puff(s), Inhalation, q6hr as needed for wheezing, Refill(s) 0 Start Date: 10/15/21 Status: Ordered Psyllium (10 sources) Start: 9 Metamucil Oral, Refills(s) 0, Constipation Start Date: 06/01/19 Status: Ordered take 6 capsules by mouth in the morning psyllium (Metamucil) 0.36 g capsule Take 6 capsules by mouth in the morning. 0 Active raNITIdine 150 mg oral tablet (1 source) Histamine-2 Receptor Antagonist Start: 06-01-2019 take 1 tablet by mouth once daily ranitidine 150 mg Tab 150 mg = 1 tab(s), Oral, Daily, Refills(s) 0, Control of stomach acid Start Date: 06/01/19 Status: Ordered spironolactone 25 mg oral tablet (3 sources) Aldosterone Antagonist Start: 10-15-2021 take 1 tablet by mouth once daily spironolactone 25 mg Tab 25 mg = 1 tab(s), Oral, Daily, Refills(s) 0 Start Date: 10/15/21 Status: Ordered tamsulosin hydrochloride 0.4 mg oral capsule (9 sources) alpha-Adrenergic Rain Start: 02-18-2022 take 1 capsule by mouth once daily Flomax 0.4 mg Cap 0.4 mg = 1 cap(s), Oral, Daily, Refills(s) 0 Start Date: 04/22/22 Status: Ordered take 1 capsule by [facility] every twenty-four hours in the morning tamsulosin (Flomax) 0.4 MG 24 hr capsule Take 0.4 mg by mouth in the morning. 0 Active Comment on above: Take 0.4 mg by mouth once daily. Vitamin D 1000 intl units (25 mcg) Tab (5 sources) Start: 04-22-2022 take 1 tablet by mouth once daily Vitamin D 1000 intl units (25 mcg) Tab 100 mcg = 4 tab(s), Oral, Daily, Refills(s) 0 Start Date: 04/22/22 Status: Ordered Vitamin D3 (4 sources) Start: 06-01-2019 Vitamin D3 2,000 International_Unit, Daily, Refills(s) 0, [...] every six hours as needed for pain [place] 325 mg-5 mg oral tablet 1 tab(s), Oral, q6hr as needed for pain, Refill(s) 0 Start Date: 07/10/21 Status: Ordered Comment on above: take 1 tablet by raiv th four times a day if needed [...] completed., # 2 tab(s), Refills(s) 0, Pharmacy: [id number], 177, cm, 06/20/23 10:48:00 EST, Height/Length Dosing, 81.9, kg, 06/20/23 10:48:00 EST, Weight Dosing Start Date: 06/20/23 Status: Ordered Start: 07-26-2022 take 1 tablet by ravi th once daily Cipro 250 mg Tab 250 mg = 1 tab(s), Oral, Daily, Take 1 tablet the day before the procedure and 1 tablet after the procedure, # 2 tab(s), Refills(s) 0, Pharmacy: [email or web address] #[id number], 177.8, cm, 04/22/22 15:44:00 EDT, Height/Length Dosing, 85.4, kg, 04/22/22 15:44:00 EDT,... Start Date: 07/26/22 Status: Ordered Start: 07-10-2021 take 1 tablet by ravi th once daily Cipro 500 mg Tab 500 mg = 1 tab(s), Oral, Daily, Take 1 tablet 07/16/21 and 1 tablet after the procedure 07/17/21, # 2 tab(s), Refills(s) 0, Pharmacy: [id number] [facility], 177.8, cm, 07/24/20 9:23:00 EST, Height/Length [...] intracranial hemorrhage, unspecified] Onset: 05-10-2022 10-15-2021 Chronic Administrative/social admission (1 source) Patient encounter status; Translations: [Other specified counseling] Onset: 07-28-2023 07-28-2023 Episodic Anxiety disorders (1 source) 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; Translations: [Panic disorder [episodic paroxysmal anxiety]] Onset: 06-18-2023 06-18-2023 Chronic Calculus of urinary tract (17 sources) Kidney stone; Translations: [Calculus of kidney] Onset: 02-18-2022 Episodic Cancer of bladder (10 sources) Malignant neoplasm of lateral wall of urinary bladder; Translations: [Malignant neoplasm of lateral wall of bladder] Onset: 07-28-2023 06-01-2019 Chronic Cancer; other and unspecified primary (10 sources) H/O: malignant neoplasm; Translations: [Personal history of malignant neoplasm of bladder] Onset: 07-28-2023 06-01-2019 Episodic Cardiac dysrhythmias (20 sources) Atrial fibrillation; Translations: [Paroxysmal atrial fibrillation] Onset: 02-02-2022 04-22-2022 Chronic Chronic kidney disease (20 sources) Anemia in chronic kidney disease; Translations: [Chronic kidney disease] Onset: 03-06-2020 10-15-2021 Chronic Chronic obstructive pulmonary disease and bronchiectasis (15 sources) Chronic obstructive lung disease; Translations: [Chronic obstructive pulmonary disease, unspecified] Onset: 03-06-2020 10-15-2021 Chronic Conduction disorders (1 source) Unspecified right bundle-branch block; Translations: [UNSPECIFIED RT BUNDLE-BRANCH BLOCK] Onset: 02-12-2022 Chronic Congestive heart failure; nonhypertensive (3 sources) Acute combined systolic (congestive) and diastolic (congestive) heart failure; Translations: [Chronic heart failure co-occurrent with normal ejection fraction] Onset: 02-12-2022 08-21-2023 Chronic Coronary atherosclerosis and other heart disease (20 sources) Coronary arteriosclerosis; Translations: [Atherosclerotic heart disease of seminole coronary artery without angina pectoris] Onset: 08-13-2017 10-15-2021 Chronic Deficiency and other anemia (1 source) Iron deficiency anemia due to blood loss; Translations: [Iron deficiency anemia secondary to blood loss (chronic)] Chronic Deficiency and other anemia (2 sources) Iron deficiency anemia secondary to blood loss (chronic); Translations: [Iron deficiency anemia due to chronic blood loss] Onset: 03-23-2022 Chronic Deficiency and other anemia (1 source) Anemia in chronic kidney disease; Translations: [ANEMIA IN CHRONIC KIDNEY DISEASE] Onset: 11-27-2021 Chronic Delirium, dementia, and amnestic and other cognitive disorders (17 sources) Dementia; Translations: [Dementia associated with another disease] Onset: 03-01-2020 10-15-2021 Chronic Diabetes mellitus with complications (2 sources) Type 2 diabetes mellitus with diabetic chronic kidney disease; Translations: [Type 2 diabetes mellitus] Onset: 03-01-2020 07-28-2023 Chronic Disorders of lipid metabolism (16 sources) Hyperlipidemia; Translations: [Hypertriglyceridemia ] Onset: 11-27-2021 [...] unspecified whether hemorrhage] Onset: 05-10-2022 Essential hypertension (16 sources) Hypertensive disorder; Translations: [Essential hypertension] Onset: 08-13-2017 10-11-2021 Chronic Genitourinary symptoms and ill-defined conditions (18 sources) Urge incontinence of urine; Translations: [Unspecified urinary incontinence] Onset: 11-27-2021 06-01-2019 Chronic Genitourinary symptoms and ill-defined conditions (20 sources) Dysuria; Translations: [Foul smelling urine] Onset: 11-27-2021 06-01-2019 Episodic Gout and other crystal arthropathies (15 sources) Gout; Translations: [Gout, unspecified] Onset: 02-12-2022 10-15-2021 Chronic Hyperplasia of prostate (20 sources) Benign prostatic [...] 10-09-2021 Episodic Other and unspecified benign neoplasm (10 sources) History of polyp of colon; Translations: [Personal history of colonic polyps] Onset: 07-28-2023 08-21-2021 Episodic Other circulatory disease (3 sources) Presence of other cardiac implants and grafts; Translations: [Other specified cardiac device in situ] Onset: 10-18-2022 06-18-2023 Chronic Other circulatory disease (6 sources) History of cerebrovascular accident; Translations: [Personal history of transient ischemic attack (TIA), and cerebral infarction without residual deficits] Onset: 06-18-2023 04-22-2022 Episodic Other connective tissue disease (1 source) Other muscle spasm; Translations: [OTHER MUSCLE SPASM] Onset: 10-28-2022 Episodic Other diseases of veins and lymphatics (1 source) Venous insufficiency of leg; Translations: [Venous insufficiency (chronic) (peripheral)] 08-21-2023 Episodic Other ear and sense organ disorders (5 sources) Hearing loss 04-22-2022 Chronic Other gastrointestinal disorders (10 sources) Dysphagia; Translations: [Dysphagia, unspecified] Onset: 10-09-2021 Episodic Other nervous system disorders (2 sources) Other chronic pain; Translations: [OTHER CHRONIC PAIN] Onset: 08-01-2022 Chronic Other nervous system disorders (1 source) Polyneuropathy, unspecified; Translations: [POLYNEUROPATHY UNSPECIFIED] Onset: 02-18-2022 Chronic Other nervous system disorders (1 source) Difficulty walking; Translations: [Difficulty in walking, not elsewhere classified] Onset: 07-28-2023 07-28-2023 Chronic Other nutritional; endocrine; and metabolic disorders (1 source) Hypocalcemia; Translations: [HYPOCALCEMIA] Onset: 02-12-2022 Chronic Other nutritional; endocrine; and metabolic disorders (1 source) Hypercalcemia; Translations: [Hypercalcemia] Onset: 07-28-2023 07-28-2023 Chronic Other nutritional; endocrine; and metabolic disorders [...] cervical region] Onset: 02-14-2022 Episodic Thyroid disorders (14 sources) Hypothyroidism; Translations: [Hypothyroidism, unspecified] Onset: 07-10-2021 [...] [ACUTE KIDNEY FAILURE UNSPECIFIED] Onset: 02-12-2022 Episodic Cancer of bladder (9 sources) History of malignant neoplasm of bladder; Translations: [Personal history of malignant neoplasm of bladder] Onset: 04-22-2022 Episodic Cancer of prostate (20 sources) History of malignant neoplasm of prostate; Translations: [Personal history of malignant neoplasm of prostate] Onset: 08-01-2015 06-01-2019 Episodic Deficiency and other anemia (3 sources) Iron deficiency anemia; Translations: [Iron deficiency anemia, unspecified] Onset: 02-12-2022 05-10-2022 Episodic Deficiency and other anemia (1 source) Iron deficiency anemia, unspecified; Translations: [IRON DEFICIENCY ANEMIA UNSPECIFIED] Onset: 02-12-2022 Episodic Deficiency and other anemia (5 sources) Anemia, unspecified; Translations: [ANEMIA UNSPECIFIED] Onset: 11-09-2021 Episodic Diabetes mellitus without complication (15 sources) Diabetes mellitus; Translations: [Type 2 diabetes mellitus without complication] Onset: 11-01-2021 Resolved: 06-18-2023 10-11-2021 Chronic Hemorrhoids (20 sources) Hemorrhoids; Translations: [Unspecified hemorrhoids] Onset: 10-09-2021 Episodic Mood disorders (1 source) Mood disorders Onset: 07-03-2023 07-03-2023 Other aftercare (1 source) Other chcf (current) drug therapy; Translations: [OTH CHECK EXAMINER CURRENT DRUG THERAPY] Onset: 02-12-2022 Episodic Other aftercare (1 source) group home (current) use of aspirin; Translations: [CHECK EXAMINER CURRENT USE OF ASPIRIN] Onset: 02-12-2022 Episodic Other aftercare (1 source) long term acute care registered nurse (current) use of anticoagulants; Translations: [MCFP CURRNT USE ANTICOAGULANTS] Onset: 11-27-2021 Episodic Other aftercare (2 sources) group home (current) use of antibiotics; Translations: [group home (current) use of antibiotics] Onset: 10-18-2022 Episodic Other connective tissue disease (1 source) Sarcopenia; Translations: [SARCOPENIA] Onset: 07-11-2022 Episodic Other injuries and conditions due to external causes (1 source) History of fall; Translations: [History of falling] Onset: 03-06-2020 07-28-2023 Episodic Phlebitis; thrombophlebitis and thromboembolism (7 sources) H/O: Deep vein thrombosis; Translations: [Personal [...] Name Value Interpretation Reference Range Facility Reminderson 08-29-2023 Reminders - From: Alaina Dickson To: EU - Recalls Vergara; Sent: 08/29/2023 09:01:00 EST Show up: 07/07/2024 09:00:00 EST Subject: cysto/fish/cytol Due Date/Time: 07/26/2024 09:00:00 EST Reminder/Recall Patient is due in Aug 2024 for 1 year cysto/fish/cytol (bt ck)/PSA Normal [facility] Telemedicineon 08-28-2023 Telemedicine [id number] Ben Guadalupe 1935 M Date Provider Department Center 08/28/2023 NERISSA TESFAYE CARD [facility] Family History Problem Relation Age of Onset Heart failure Mother Prostate cancer Father Coronary artery disease Brother Prostate cancer Brother Family Status - Relation Status Age at Mother Father Brother Level of Service:52457 [place] PHYS/QHP TELEPHONE EVALUATION 11-20 MIN Reason for Visit and Comments: Atrial Fibrillation [80] Hypertension [454209] Congestive Heart Failure [127] Normal [facility] Consent for Procedure/Surger yon 08-25-2023 Consent for Procedure/Surgery [id number]#[id number] Normal [facility] IntraOperative Documentson 0 08-25-2023 IntraOperative Documents [id number]#1.00TIFF Normal [facility] CHEMISTRYOrdered By: SYSTEM SYSTEM on 08-19-2023 PSA Total 3.7 ng/mL High 0.1 - 3.5 ng/mL [facility] Comment on above: Interpretive Data: T he concentration of PSA determined by different manufacturers can vary due to differences in assay methods and reagent specificity. Values obtained from different assay methods cannot be used interchangeably. The methodology used for this result was chemiluminescence using [employer]'s Access Hybritech PSA reagent. Consent for Treatmenton 08-07 Consent for Treatment [id number]#1.00TIFF [facility] Consent for Treatment [id number]#[id number] [facility] Operative Reporton Operative Report Patient: [...] with antibiotic coverage, Follow up arranged. Normal [facility] Comment on above: Result Comment: Elec tronically Signed By: Mekhi VERGARA MD\.br\Date and Time Signed: 08/19/23 16:18 EST PSA Totalon 08-19-2023 PSA Total 3.7 ng/mL High 0.1-3.5 [facility] Comment on above: Result Comment: The concentration of PSA determined by different manufacturers can vary due to differences in assay methods and reagent specificity. Values obtained from different assay methods cannot be used interchangeably. The methodology used for this result was chemiluminescence using [employer]'s Access Hybritech PSA reagent. Performed By: #### 1 [id number] ####[facility] [id number] [place] [address] Reminderson 07-03-2023 Reminders - From: Alaina Dickson To: EU - Recalls Ursula; Cc: Alaina Dickson; Sent: 10/16/2022 14:04:20 EDT Show up: 06/06/2023 14:04:00 EST Subject: cysto/fish/cytol Due Date/Time: 06/23/2023 14:04:00 EST Reminder/Recall Patient is due in Jul 2023 for 1 year cysto/fish/cytol (bt ck) l/m on [place] per pt request from appt 06/20/23.LG Spoke to Milly, pt sched for 07/22/23 at [facility]. Confirmation mailed. Patient will be due in Jul 2024, 1 year cysto/fish/cytol Normal [facility] Ambulatory Visit Summaryon 1 08-21-2022 Ambulatory Visit Summary BEN GUADALUPE :1935 Visit Date:06/20/2023 Ambulatory Visit Instructions Your Diagnosis Rising PSA 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 Urinary retention Prostatitis BPH with urinary obstruction Urge incontinence History of bladder cancer Tests Performed Urnls Dip Stick Auto w/o Microscopy POC 76234 Your Care Team Attending Physician - Mekhi VERGARA MD Primary Care Physician - LEXI WORKMAN, This Is Your Medications List ciprofloxacin (Cipro 500 mg Tab) doxycycline (doxycycline hyclate 100 mg Tab) Contact prescribing physician if questions or concerns acetaminophen-hydrocodone (Broughton 325 mg-5 mg oral tablet) albuterol (ProAir [...] (glipiZIDE 5 mg Tab) lactobacillus rhamnosus GG ([facility]) levothyroxine (levothyroxine 50 mcg (0.05 mg) [...] with URSULA WORKMAN, GO Scott When: Where: [address] [place] [address]- Medications What How Much When Instructions New ciprofloxacin (Cipro 500 mg Tab) 1 Tablets By Mouth As Directed Pt to take 1 tab the day before procedure and the 2nd tab the day of procedure once completed. Pickup at [facility] #66904 New doxycycline (doxycycline hyclate 100 mg Tab) 1 Tablets By Mouth 2 times a day Duration: 2 Weeks Pickup at [facility] #52801 Unchanged acetaminophen-hydrocodone (Broughton 325 mg-5 mg oral tablet) 1 Tablets [...] questions or (more content not included)... Normal [facility] Patient Educationon 06-20-20 23 Patient Education Infectious Disease Prostatitis Prostatitis is [...] these instructions at home: Medicines ? Take htko-sjz-vgxelzx and prescription medicines only as told by [...] Where to find more information ? National [employer] of Diabetes and Digestive and Kidney Diseases: (more content not included)... Normal [facility] Urology Office/Clinic Noteon 06-20-2023 Urology [...] recent PSA. Pt has been to the [facility] ER 3x since 06/10/23 w/ [...] of urine, unspecified) Pt has been to [facility] ER 3x since 06/10/23 w/ [...] Contact Information Mekhi VERGARA MD, URL [address] [place] [address]- Additional Instructions: Schedule cysto for b.t. check [...] BMI 27 (more content not included)... Normal [facility] Comment on above: Result Comment: Elec tronically Signed By: Mekhi EVRGARA MD\.br\Date and Time Signed: 06/20/23 11:33 EST\.br\Electronically Co-Signed By: Silke Dupont\.br\Date and Time Co-Signed: 06/20/23 11:32 EST Office Visiton 03-07-2023 Follow-up visit [id number] Ben Guadalupe 1935 M Date Provider Department Center 03/07/2023 Jonathon-ANDREA COLORADO CARD [facility] Family History Problem Relation Age of Onset Heart failure Mother Prostate cancer Father Coronary artery disease Brother Prostate cancer Brother Family Status - Relation Status Age at Mother Father Brother Level of Service:89579 [place] OFFICE/OUTPATIENT ESTABLISHED MOD MDM 30-39 MIN Normal [facility] Ambulatory Visit Summaryon 0 12-23-2022 Ambulatory Visit Summary BEN GUADALUPE :1935 Visit Date:12/23/2022 Ambulatory Visit Instructions Your Diagnosis Rising PSA 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 Urge incontinence BPH with urinary obstruction History of bladder cancer Kidney stones Tests Performed Urnls Dip Stick Auto w/o Microscopy POC 17994 Your Care Team Attending Physician - Mekhi VERGARA MD Primary Care Physician - SHAIKH ELLIOTT This Is Your Medications List Contact prescribing physician if questions or concerns acetaminophen-hydrocodone (Broughton 325 mg-5 mg oral tablet) albuterol (ProAir [...] (Lasix 40 mg Tab) lactobacillus rhamnosus GG ([facility]) levothyroxine (levothyroxine 50 mcg (0.05 mg) [...] WORKMAN, Mekhi [place] Where: [facility] Patient Educationon 12-24-19 Patient [...] if anything looks unusual. Men with a yivcuh-tcuz-yzsoyl risk for skin cancer may want to see a jaw skinner (supervisor park workers) for an annual body check. What are the benefits of screening? Cancer screening is done to look for cancer in the very early stages, before it spreads and becomes harder to treat and before you would start to notice symptoms. Finding cancer early improves the chances of successful treatment. It ma (more content not included)... Normal [facility] Urology Office/Clinic Noteon 12-23-2022 Urology [...] renal stones. Follow-up With When Contact Information Mekhi VERGARA MD, URL [facility] [address] [place] [address]- Additional Instructions: 6 mos psa Patient Education [...] ring Urg (more content not included)... Normal [facility] Comment on above: Result Comment: Elec tronically Signed By: Mekhi VERGARA MD\.br\Date and Time Signed: 12/23/22 13:49 EDT\.br\Electronically Co-Signed By: Tierra Anderson\.br\Date and Time Co-Signed: 12/23/22 13:48 EDT POINT OF CARE GLUCOSEon 10-06 Glucose [Mass/Vol] 230 mg/dL Critically high 74-106 [facility] Comment on above: Performed By: #### P SAD #### [facility] [address] [address] [address] Mason Astudillo Office Visiton 10-18-2022 Follow-up visit [id number] Ben Guadalupe 1935 Date Provider Department Center 10/18/2022 NERISSA TESFAYE CARD [facility] Family History Problem Relation Age of Onset Heart failure Mother Prostate cancer Father Coronary artery disease Brother Prostate cancer Brother Family Status - Relation Status Age at Mother Father Brother Level of Service:83815 [place] OFFICE/OUTPATIENT ESTABLISHED LOW [facility] 20-29 MIN Reason for Visit and Comments: Coronary Artery Disease [187] Atrial Fibrillation [80] Normal [facility] ANESon 10-11-2022 ANES -------- Attestation [...] 10/11/22 0900 Procedure: TRANSESOPHAGEAL ECHO (KINZA) Location: [facility] Vascular Lab [...] fellow and attending. Additional Equipment Requests Normal [facility] HPon 10-11-2022 HP -------- Attestation signed by [...] there are no changes to the H&P. [facility] Provider Letteron 09-13-2022 Provider Letter (Inserted Image. Sweta ble to display) September 13, 20[address] [place] [id number] BEN GUADALUPE 1935 Dear Mr. Guadalupe, We [...] prompt attention to this matter. Please call [phone] option 3 to be rescheduled. Sincerely, [facility] [address], [facility] [place] [address] [facility] HPon 09-11-2022 [facility] Cardiology - [facility] Subjective Ben Guadalupe is a [...] and anxiety (CMS/HCC) Sleep apnea Intracranial hemorrhage ([facility]/HCC) History of DVT (deep vein thrombosis) Family [...] February 2022 he was admitted to the [facility] with palpitations and chest pain. He [...] lower le (more content not included)... Normal [facility] POINT OF CARE GLUCOSEon 01-0 Glucose [Mass/Vol] 203 mg/dL Critically high 74-106 [facility] Comment on above: Performed By: #### U A #### [facility] [address] [address] [address] Mason Astudillo ANES POSTPROC EVALon 022 ANES POSTPROC EVAL HNO ID: [id number] Author: Kandice Guadalupe MD Service: ? Author Type: Physician Type: Anesthesia Postprocedure Evaluation Filed: 05/17/2022 2:13 PM Note Text: POST ANESTHESIA EVALUATION NOTE : 1935 Procedure Summary Date: 05/17/22 Room / Location: [address] Anesthesia Start: 954 Anesthesia Stop: 1201 Procedures: [...] with this procedure. Documented by Minesh Levy APRN.[employer] 05/17/2022 12:02 PM EST SIGNATURE: Kandice Guadalupe MD PATIENT NAME: Ben Guadalupe DATE: May 17, 2022 TIME: 2:13 PM CSN: [id number] Normal [facility] ANES PRE-OPon 05-17-2022 ANES PRE-OP HNO ID: [id number] Author: Kandice Guadalupe MD Service: ? Author [...] Airway type: LMA NPO Status: adequate Beta Rain Monitoring Plan Monitoring plan: standard ASA. Post [...] none. Vitals Value Taken Time BP 144/74 05/17/22744 Pulse 72 05/17/22744 Resp 16 05/17/22744 Temp 36.4 ?C (97.5 [...] mcg/actuation na (more content not included)... Normal [facility] BRIEF OP NOTon 05-17-2022 BRIEF OP NOT HNO ID: [id number] Author: Tristin Wilcox MD, PhD Service: Colorectal Author Type: Physician Type: Brief Op Note Filed: 05/17/2022 11:34 AM Note Text: BRIEF OPERATIVE NOTE - COLORECTAL SURGERY Log ID: [id number] Surgery/Procedure Date: 05/17/2022 Incision/Procedure Start Time: 10:17 AM Incision Close/Procedure End Time: 11:27 AM Surgeon(s) and Electric Truck Crane Operator(s): Surgeon(s) and Role: * Tristin Wilcox [...] May 17, 2022 TIME: 11:30 AM Normal [facility] Gas and Carbon monoxide pane l (BldV)on 05-17-2022 BASE DEFICIT, VENOUS -2 mmol/L Normal -2-0 [facility] Comment on above: Order Comment: Speci men Type: VENOUS BLOOD SPECIMENOrdering Facility: [facility] Address: [address] [place], [place] [address] Performed By: #### 2 4344-4 ####[facility] LABCLIA [id number] [facility] [id number] [place] [address] [place] Body temperature 97.52 [degF] Normal [facility] Comment on above: Order Comment: Speci men Type: VENOUS BLOOD SPECIMENOrdering Facility: [facility] Address: [address] [address] Performed By: #### 2 4344-4 ####[facility] LABCLIA [id number] [place] [address] [place] Calcium.ionized (Bld) [Mass/Vol] 1.17 mmol/L Normal 1.08-1.30 [facility] Comment on above: Order Comment: Speci men Type: VENOUS BLOOD SPECIMENOrdering Facility: [facility] Address: [address] [place] [address] Performed By: #### 2 4344-4 ####[facility] LABIA [id number] [place] [address] [place] Calcium.ionized adjusted to pH 7.4 (BldA) [Moles/Vol] 1.17 mmol/L Normal 1.08-1.30 [facility] Comment on above: Order Comment: Speci men Type: VENOUS BLOOD SPECIMENOrdering Facility: [facility] Address: [address] [place] [address] Performed By: #### 2 4344-4 ####[facility] LABIA [id number] [place] [address] [place] Carboxyhemoglobin (BldV) [Mass fraction] 1.4 % Normal 0.0-2.0 [facility] Comment on above: Order Comment: Speci men Type: VENOUS BLOOD SPECIMENOrdering Facility: [facility] Address: [address] [place], [place] [address] Result Comment: Carb oxyhemoglobin Reference Range for Smokers: 2.0-8.0% Performed By: #### 2 4344-4 ####[facility] LABIA [id number] [place] [address] [place] CO2 (BldV) [Partial pressure] 37 mm[Hg] Low 42-55 [facility] Comment on above: Order Comment: Speci men Type: VENOUS BLOOD SPECIMENOrdering Facility: [facility] Address: [address] Performed By: #### 2 4344-4 ####[facility] LABCLIA [id number] [place] [address] [place] CO2 [Moles/Vol] 23 mmol/L Low 25-29 [facility] Comment on above: Order Comment: Speci men Type: VENOUS BLOOD SPECIMENOrdering Facility: [facility] Address: [address] Performed By: #### 2 4344-4 ####[facility] LABCLIA [id number] [place] [address] [place] CO2 adjusted to patient's actual temperature (BldV) [Partial pressure] 35 mmHg Low 42-55 [facility] Comment on above: Order Comment: Speci men Type: VENOUS BLOOD SPECIMENOrdering Facility: [facility] Address: [address] Performed By: #### 2 4344-4 ####[facility] LABCLIA [id number] [place] [address] [place] Glucose [Mass/Vol] 198 mg/dL High 60-105 [facility] Comment on above: Order Comment: Speci men Type: VENOUS BLOOD SPECIMENOrdering Facility: [facility] Address: [address] Performed By: #### 2 4344-4 ####[facility] LABCLIA [id number] [place] [address] [place] HCO3 (Bld) [Moles/Vol] 22 mmol/L Low 24-28 [facility] Comment on above: Order Comment: Speci men Type: VENOUS BLOOD SPECIMENOrdering Facility: [facility] Address: [address] Performed By: #### 2 4344-4 ####[facility] LABCLIA [id number] [place] [address] [place] Hematocrit (Bld) [Volume fraction] 36.4 % Low 39.0-51.0 [facility] Comment on above: Order Comment: Speci men Type: VENOUS BLOOD SPECIMENOrdering Facility: [facility] Address: [address] [place] [address] Performed By: #### 2 4344-4 ####[facility] [id number] [place] [address] [place] Hemoglobin (Bld) [Mass/Vol] 11.8 g/dL Low 13.0-17.0 [facility] Comment on above: Order Comment: Speci men Type: VENOUS BLOOD SPECIMENOrdering Facility: [facility] Address: [address] [place] [address] Performed By: #### 2 4344-4 ####[facility] [id number] [place] [address] [place] Lactate [Moles/Vol] 1.9 mmol/L Normal 0.5-2.2 [facility] Comment on above: Order Comment: Speci men Type: VENOUS BLOOD SPECIMENOrdering Facility: [facility] Address: [address] [place], [place] [address] Performed By: #### 2 4344-4 ####[facility] [id number] [place] [address] [place] Methemoglobin (Bld) [Mass fraction] 1.1 % Normal 0.0-1.5 [facility] Comment on above: Order Comment: Speci men Type: VENOUS BLOOD SPECIMENOrdering Facility: [facility] Address: [address] [place], [place] [address] Performed By: #### 2 4344-4 ####[facility] [id number] [place] [address] [place] O2 THERAPY RA=Room Air Normal [facility] Comment on above: Order Comment: Speci men Type: VENOUS BLOOD SPECIMENOrdering Facility: [facility] Address: [address] Performed By: #### 2 4344-4 ####[facility] LABCLIA [id number] [place] [address] [place] Oxygen (BldV) [Partial pressure] 50 mm[Hg] High 35-45 [facility] Comment on above: Order Comment: Speci men Type: VENOUS BLOOD SPECIMENOrdering Facility: [facility] Address: [address] Performed By: #### 2 4344-4 ####[facility] LABCLIA [id number] [place] [address] [place] Oxygen adjusted to patient's actual temperature (BldV) [Partial pressure] 48 mmHg High 35-45 [facility] Comment on above: Order Comment: Speci men Type: VENOUS BLOOD SPECIMENOrdering Facility: [facility] Address: [address] Performed By: #### 2 4344-4 ####[facility] LABCLIA [id number] [place] [address] [place] Oxygen saturation in Venous blood 82 % Normal 60-85 [facility] Comment on above: Order Comment: Speci men Type: VENOUS BLOOD SPECIMENOrdering Facility: [facility] Address: [address] [place] [address] Performed By: #### 2 4344-4 ####[facility] LABCLIA [id number] [place] [address] [place] Oxyhemoglobin (BldV) [Mass fraction] 80 % Normal 60-85 [facility] Comment on above: Order Comment: Speci men Type: VENOUS BLOOD SPECIMENOrdering Facility: [facility] Address: [address] [place] [address] Performed By: #### 2 4344-4 ####[facility] LABCLIA [id number] [place] [address] [place] pH (BldV) 7.39 [pH] Normal 7.32-7.42 [facility] Comment on above: Order Comment: Speci men Type: VENOUS BLOOD SPECIMENOrdering Facility: [facility] Address: [address] [place] [address] Performed By: #### 2 4344-4 ####[facility] LABIA [id number] [address] [place] [facility] pH adjusted to patient's actual temperature (BldV) 7.40 Normal 7.32-7.42 [facility] Comment on above: Order Comment: Speci men Type: VENOUS BLOOD SPECIMENOrdering Facility: [facility] Address: [address] [place] [address] Performed By: #### 2 4344-4 ####[facility] LABIA [id number] [place] [address] [place] Potassium [Moles/Vol] 2.9 mmol/L Low 3.5-5.0 [facility] Comment on above: Order Comment: Speci men Type: VENOUS BLOOD SPECIMENOrdering Facility: [facility] Address: [address] [place] [address] Performed By: #### 2 4344-4 ####[facility] LABIA [id number] [address] [place] Sodium [Moles/Vol] 137 mmol/L Normal 136-144 [facility] Comment on above: Order Comment: Speci men Type: VENOUS BLOOD SPECIMENOrdering Facility: [facility] Address: [address] [place] [address] Performed By: #### 2 4344-4 ####[facility] LABIA [id number] [place] [address] [place] OPERATIVE NOon 05-17-2022 OPERATIVE NO HNO ID: [id number] Author: Tristin Wilcox MD, PhD Service: Colorectal Author Type: Physician Type: Operative Report Filed: 05/31/2022 2:52 PM Note Text: OPERATIVE REPORT LOG ID: [id number] SURGERY DATE: 05/17/2022 INCISION/PROCEDURE START TIME: 10:17 AM INCISION CLOSE/PROCEDURE END TIME: 11:27 AM PREOPERATIVE DIAGNOSIS: Prolapsing, symptomatic, large internal and external hemorrhoids. Colonic polyps. POSTOPERATIVE DIAGNOSIS: Grade 4; Prolapsing, symptomatic, large internal and external hemorrhoids. Colonic polyps. Surgeon(s)/Proceduralist(s) and Electric Truck Crane Operator(s): Surgeon(s) and Role: * Tristin Wilcox [...] COLON POLYP Tissue COLON POLYP SURGICAL PATHOLOGY Tritsin Wilcox MD, PhD 05/17/2022 10:25 AM B [...] with assistance. PATIENT NAME: Ben Guadalupe Normal [facility] POTASSIUM BLDon 05-17-2022 Potassium [Moles/Vol] 3.0 mmol/L Low 3.7-5.1 [facility] Comment on above: Order Comment: Speci men Type: BLOOD SPECIMENOrdering Facility: [facility] Address: [address] [place] [address] Performed By: #### K 1 ####[facility] LABCLIA [id number] [address] SURGICAL PATHOLOGYon 022 CASE REPORT Normal [facility] Comment on above: Order Comment: Speci men Type: TISSUE SPECIMENOrdering Facility: [facility] Address: [address] [place] [address] Result Comment: Surg [facility] Pathology Report Case: [id number] Authorizing Provider: Tristin Wilcox, Collected: 05/17/2022 10:25 AM , PhD Ordering Location: Admitting Received: 05/17/2022 01:44 PM Pathologist: Daryn June MD Specimens: A) - COLON POLYP, RIGHT COLON POLYP B) - COLON POLYP, LEFT COLON POLYP C) - RECTAL POLYP D) - HEMORRHOID, left lateral E) - HEMORRHOID, right posterior Performed By: #### S ####[facility] LABCLIA [id number] [address] OF [facility] LABCLIA [id number] [address] OF [facility] CLINICAL HISTORY Normal [facility] Comment on above: Order Comment: Speci men Type: TISSUE SPECIMENOrdering Facility: [facility] Address: [address] [place] [address] Result Comment: Pre- op diagnosis: Fourth degree hemorrhoids [K64.3] Performed By: #### S ####[facility] LABCLIA [id number] [address] OF [facility] LABCLIA [id number] [address] OF [facility] FINAL DIAGNOSIS Normal [facility] Comment on above: Order Comment: Speci men Type: TISSUE SPECIMENOrdering Facility: [facility] Address: [address] [place] [address] Result Comment: A. C olon, right, polyp, biopsy: - Tubular adenoma. B. Colon, left, polyp, biopsy: - Tubular adenoma. C. Rectum, polyp, biopsy: - Tubular adenoma. D. Anus, left lateral, hemorrhoid, excision: - Fibroepithelial polyp. E. Anus, right posterior, hemorrhoid, excision: - Dilated hemorrhoidal varices. Performed By: #### S ####[facility] LABCLIA [id number] [address] LABCLIA [id number] [address] FINAL PERFORMING LAB Normal [facility] Comment on above: Order Comment: Speci men Type: TISSUE SPECIMENOrdering Facility: [facility] Address: [address] [place] [address] Result Comment: Diag nostic interpretation performed at [facility], [address] [place] [address] CLIA# [id number] Risk And Insurance Consultant: Nga Schultz M.D. Performed By: #### S ####[facility] LABCLIA [id number] [address] LABCLIA [id number] [address] OF [facility] GROSS DESCRIPTION A. COLON POLYP Normal [facility] Comment on above: Order Comment: Speci men Type: TISSUE SPECIMENOrdering Facility: [facility] Address: [address] [place], [place] [address]E, [place] [id number] Result Comment: Rece ived in formalin is [...] 0.1 cm. Totally submitted in one cassette. [facility] [[email or web address]] May 17, 2022 3:41 PM Gross examination performed at [facility], [address] [place] [address] D. HEMORRHOID Received fresh designated left lateral is a cason-busby portion of skin that measures 4.5 x 1.5 x 1 cm. Sectioning through the specimen reveals hemorrhagic cut surfaces. Fleet Mechanic sections are submitted in 1 cassette. WE May 17, 2022 3:17 PM Gross examination performed at [facility], [address] [place] [address] E. HEMORRHOID Received fresh designated right posterior is a pink-cason portion of skin that measures 3.9 x 0.6 x 0.6 cm. Sectioning through the specimen reveals hemorrhagic cut surfaces. Fleet Mechanic sections are submitted in 1 cassette. WE May 17, 2022 3:19 PM Gross examination performed at [facility], [facility] [facility] [place] [place] [address] Performed By: #### S ####DA[facility]ID [facility] LABCLIA [id number] [address] STATES OF [facility] LABCLIA [id number] [place] [id number] [facility] OF [facility] [place] 05-16-2022 CNPN Telephone (WINTERBro) BEN GUADALUPE ([id number]) 1935 M Date Time Provider Department 05/16/22 [...] (HCC) [I62.9] 05/10/2022 PAF (paroxysmal atrial fibrillation) ([facility]) [I48*03/18/2022 Sleep apnea [G47.30] 05/10/2022 History of DVT (deep vein thrombosis) [Z86.718] 05/10/2022 Encounter Status:Closed by DELICIA FULLER on 05/16/22 [facility] Telephone (KADIE) BEN GUDAALUPE ([id number]) 1935 M Date Time Provider Department 05/16/22 [...] PA-C - Fully Assessed 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 [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] Prescriptions as of 05/16/2022 - famotidine (PEPCID) [...] by MARIA LUISA GARCIA on 05/16/22 Normal [facility] CBC panel Auto (Bld)on 05-10 Erythrocyte distribution width (RBC) [Ratio] 14.1 % Normal 11.5-15.0 [facility] Comment on above: Order Comment: Speci men Type: BLOOD SPECIMENOrdering Facility: [facility] Address: [address] [place] [address] Performed By: #### 5 8410-2 ####[facility] [id number] [place] [address] [place] Hematocrit (Bld) [Volume fraction] 38.9 % Low 39.0-51.0 [facility] Comment on above: Order Comment: Speci men Type: BLOOD SPECIMENOrdering Facility: [facility] Address: [address] [place] [address] Performed By: #### 5 8410-2 ####[facility] LABIA [id number] [place] [address] [place] Hemoglobin (Bld) [Mass/Vol] 12.2 g/dL Low 13.0-17.0 [facility] Comment on above: Order Comment: Speci men Type: BLOOD SPECIMENOrdering Facility: [facility] Address: [address] [place] [address] Performed By: #### 5 8410-2 ####[facility] LABIA [id number] [place] [address] [place] MCH (RBC) [Entitic mass] 28.4 pg Normal 26.0-34.0 [facility] Comment on above: Order Comment: Speci men Type: BLOOD SPECIMENOrdering Facility: [facility] Address: [address] [place] [address] Performed By: #### 5 8410-2 ####[facility] LABIA [id number] [address] MCHC (RBC) [Mass/Vol] 31.4 g/dL Normal 30.5-36.0 [facility] Comment on above: Order Comment: Speci men Type: BLOOD SPECIMENOrdering Facility: [facility] Address: [address] [place] [address] Performed By: #### 5 8410-2 ####[facility] LABIA [id number] [address] STATES OF [facility] MCV (RBC) [Entitic vol] 90.5 fL Normal 80.0-100.0 [facility] Comment on above: Order Comment: Speci men Type: BLOOD SPECIMENOrdering Facility: [facility] Address: [address] [place] [address] Performed By: #### 5 8410-2 ####[facility] LABIA [id number] [address] [place] Nucleated RBC (Bld) [#/Vol] 10*3/uL Normal <0.01 [facility] Comment on above: Order Comment: Speci men Type: BLOOD SPECIMENOrdering Facility: [facility] Address: [address] [place], [place] [address] Performed By: #### 5 8410-2 ####[facility] LABIA [id number] [place] [address] [place] Platelet mean volume (Bld) [Entitic vol] 10.9 fL Normal 9.0-12.7 [facility] Comment on above: Order Comment: Speci men Type: BLOOD SPECIMENOrdering Facility: [facility] Address: [address] [place], [place] [address] Performed By: #### 5 8410-2 ####[facility] LABIA [id number] [place] [address] [place] Platelets (Bld) [#/Vol] 135 10*3/uL Low 150-400 [facility] Comment on above: Order Comment: Speci men Type: BLOOD SPECIMENOrdering Facility: [facility] Address: [address] [place] [address] Performed By: #### 5 8410-2 ####[facility] LABCLIA [id number] [place] [address] [place] RBC (Bld) [#/Vol] 4.30 10*6/uL Normal 4.20-6.00 [facility] Comment on above: Order Comment: Speci men Type: BLOOD SPECIMENOrdering Facility: [facility] Address: [address] [place] [address] Performed By: #### 5 8410-2 ####[facility] LABCLIA [id number] [place] [address] [place] WBC (Bld) [#/Vol] 4.75 10*3/uL Normal 3.70-11.00 [facility] Comment on above: Order Comment: Speci men Type: BLOOD SPECIMENOrdering Facility: [facility] Address: [address] [place] [address] Performed By: #### 5 8410-2 ####[facility] LABCLIA [id number] [place] [address] [place] [facility] CONFIRM BLOOD TYPEon 022 ABO A Normal [facility] Comment on above: Order Comment: Speci men Type: BLOOD SPECIMENOrdering Facility: [facility] Address: [address] [place] [address] Performed By: #### C ONABO ####[facility] BLOOD BANKCLIA [id number] [place] [address] [place] Rh Nom (Bld) Negative Normal [facility] Comment on above: Order Comment: Speci men Type: BLOOD SPECIMENOrdering Facility: [facility] Address: [address] Performed By: #### C ONABO ####[facility] BLOOD BANKCLIA [id number] [place] [address] [place] Comprehensive metabolic 2000 panelon 05-10-2022 Albumin [Mass/Vol] 4.4 g/dL Normal 3.9-4.9 [facility] Comment on above: Order Comment: Speci men Type: BLOOD SPECIMENOrdering Facility: [facility] Address: [address] [place] [address] Performed By: #### 2 4323-8 ####[facility] LABCLIA [id number] [place] [address] [place] ALP [Catalytic activity/Vol] 54 U/L Normal 38-113 [facility] Comment on above: Order Comment: Speci men Type: BLOOD SPECIMENOrdering Facility: [facility] Address: [address] [place] [address] Performed By: #### 2 4323-8 ####[facility] LABCLIA [id number] [place] [address] [place] ALT [Catalytic activity/Vol] 55 U/L High 10-54 [facility] Comment on above: Order Comment: Speci men Type: BLOOD SPECIMENOrdering Facility: [facility] Address: [address] [place] [address] Performed By: #### 2 4323-8 ####[facility] LABCLIA [id number] [place] [address] [place] Anion gap [Moles/Vol] 12 mmol/L Normal 9-18 [facility] Comment on above: Order Comment: Speci men Type: BLOOD SPECIMENOrdering Facility: [facility] Address: [address] [place] [address] Performed By: #### 2 4323-8 ####[facility] LABCLIA [id number] [place] [address] [place] AST [Catalytic activity/Vol] 27 U/L Normal 14-40 [facility] Comment on above: Order Comment: Speci men Type: BLOOD SPECIMENOrdering Facility: [facility] Address: [address] Performed By: #### 2 4323-8 ####[facility] LABCLIA [id number] [place] [address] [place] Bilirubin [Mass/Vol] 0.3 mg/dL Normal 0.2-1.3 [facility] Comment on above: Order Comment: Speci men Type: BLOOD SPECIMENOrdering Facility: [facility] Address: [address] Performed By: #### 2 4323-8 ####[facility] LABCLIA [id number] [place] [address] [place] Calcium [Mass/Vol] 9.1 mg/dL Normal 8.5-10.2 [facility] Comment on above: Order Comment: Speci men Type: BLOOD SPECIMENOrdering Facility: [facility] Address: [address] Performed By: #### 2 4323-8 ####[facility] LABCLIA [id number] [place] [address] [place] Chloride [Moles/Vol] 100 mmol/L Normal 97-105 [facility] Comment on above: Order Comment: Speci men Type: BLOOD SPECIMENOrdering Facility: [facility] Address: [address] Performed By: #### 2 4323-8 ####[facility] LABCLIA [id number] [place] [address] [place] CO2 [Moles/Vol] 29 mmol/L Normal 22-30 [facility] Comment on above: Order Comment: Speci men Type: BLOOD SPECIMENOrdering Facility: [facility] Address: [address] Performed By: #### 2 4323-8 ####[facility] LABCLIA [id number] [place] [address] [place] Creatinine [Mass/Vol] 1.09 mg/dL Normal 0.73-1.22 [facility] Comment on above: Order Comment: Mayito borden Type: BLOOD SPECIMENOrdering Facility: [facility] Address: [address] [place] [address] Performed By: #### 2 4323-8 ####[facility] LABIA [id number] [address] OF [facility] ESTIMATED GLOMERULAR FILTRATION RATE 67 mL/min/1.73m??? Normal >=60 [facility] Comment on above: Order Comment: Mayito borden Type: BLOOD SPECIMENOrdering Facility: [facility] Address: [address] [place] [address] Result Comment: [place] mated Glomerular Filtration Rate [...] actual GFR. Performed By: #### 2 4323-8 ####[facility] LABIA [id number] [place] [address] [place] Glucose [Mass/Vol] 217 mg/dL High 74-99 [facility] Comment on above: Order Comment: Mayito borden Type: BLOOD SPECIMENOrdering Facility: [facility] Address: [address] [place] [address] Result Comment: The [place] Diabetes Association (ADA) provides guidance for cutoff [...] Standards of Medical Care in Diabetes 2016, [place] Diabetes Association. Diabetes Care. 2016.39(Suppl 1). Performed By: #### 2 4323-8 ####[facility] LABCLIA [id number] [place] [address] [place] Potassium [Moles/Vol] 3.2 mmol/L Low 3.7-5.1 [facility] Comment on above: Order Comment: Speci men Type: BLOOD SPECIMENOrdering Facility: [facility] Address: [address] [place] [address] Performed By: #### 2 4323-8 ####[facility] LABIA [id number] [place] [address] [place] Protein [Mass/Vol] 6.4 g/dL Normal 6.3-8.0 [facility] Comment on above: Order Comment: Speci men Type: BLOOD SPECIMENOrdering Facility: [facility] Address: [address] [place] [address] Performed By: #### 2 4323-8 ####[facility] LABIA [id number] [place] [address] [place] Sodium [Moles/Vol] 141 mmol/L Normal 136-144 [facility] Comment on above: Order Comment: Speci men Type: BLOOD SPECIMENOrdering Facility: [facility] Address: [address] Performed By: #### 2 4323-8 ####[facility] LABIA [id number] [place] [address] [place] Urea nitrogen [Mass/Vol] 26 mg/dL High 9-24 [facility] Comment on above: Order Comment: Speci men Type: BLOOD SPECIMENOrdering Facility: [facility] Address: [address] Performed By: #### 2 4323-8 ####[facility] [id number] [place] [id number] [facility] ECG COMPLETEon 05-10-2022 ECG COMPLETE Ventricular Rate : 7 6 BPM Atrial Rate : 76 BPM P-R Interval : 130 ms QRS Duration : 134 ms Q-T Interval : 442 ms QTC Calculation(Bazett) : 497 ms Calculated P Alpine : 37 degrees Calculated R Alpine : 64 degrees Calculated T Alpine : -10 degrees NORMAL SINUS RHYTHM COMPLETE RIGHT BUNDLE BRANCH BLOCK INFERIOR T WAVE ABNORMALITY ABNORMAL ECG Confirmed by YENNI TANNER MD ([id number]) on 05/14/2022 7:11:13 PM NAME : BEN GUADALUPE PID : [id number] : 1935 Gender : Male Race : ORD : [id number] Procedure Date : May 10 2022 11:57:54 Edit Date : May 14 2022 19:11:14 Diagnosis: NORMAL SINUS RHYTHM COMPLETE RIGHT BUNDLE BRANCH BLOCK INFERIOR T WAVE ABNORMALITY ABNORMAL ECG Confirmed by YENNI TANNER MD ([id number]) on 05/14/2022 7:11:13 PM Test Reason : Location : 119 : A17 Overread By : YENNI TANNER MD Edited By : YENNI TANNER MD Referred By : TRISTIN WILCOX Acquired by : CHANELLE FRANKLIN [facility] HISTORY PHYSICALon HISTORY PHYSICAL HNO ID: [id number] Author: Afia Downing PA-C Service: ? 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 Normal [facility] HbA1c (Bld)on 05-10-2022 Average glucose Estimated from glycated hemoglobin (Bld) [Mass/Vol] 151 mg/dL Normal [facility] Comment on above: Order Comment: Speci men Type: BLOOD SPECIMENOrdering Facility: [facility] Address: [address] [place] [address] Result Comment: eAG: (Estimated average glucose) is a calculated value from HgbA1c and is ict sales representative of the average blood glucose level in the last 2-3 month period. Performed By: #### 5 5454-3 ####[facility] LABCLIA [id number] [address] HbA1c (Bld) [Mass fraction] 6.9 % High 4.3-5.6 [facility] Comment on above: Order Comment: Speci men Type: BLOOD SPECIMENOrdering Facility: [facility] Address: [address] [place] [address] Result Comment: [place] Diabetes Association guidelines indicate that patients with HgbA1c in the range 5.7-6.4% are at increased risk for development of diabetes, and intervention by lifestyle modification may be beneficial. HgbA1c greater or equal to 6.5% is considered diagnostic of diabetes. Performed By: #### 5 5454-3 ####[facility] LABCLIA [id number] [address] TYPE AND SCREEN,30 DAYon ABO A Normal [facility] Comment on above: Order Comment: Speci men Type: BLOOD SPECIMENOrdering Facility: [facility] Address: [address] [place] [address] Performed By: #### T SCR30 ####[facility] BLOOD BANKIA [id number] [address] HISTORICAL AB SCR STATUS Negative Normal [facility] Comment on above: Order Comment: Speci men Type: BLOOD SPECIMENOrdering Facility: [facility] Address: [address] [place] [address] Performed By: #### T SCR30 ####[facility] BLOOD BANKCLIA [id number] [address] [place] Rh Nom (Bld) Negative Normal [facility] Comment on above: Order Comment: Speci men Type: BLOOD SPECIMENOrdering Facility: [facility] Address: [address] [place] [address] Performed By: #### T SCR30 ####[facility] BLOOD BANKCLIA [id number] [address] [place] [facility]-2022 CNPN Telephone (CORSMN) BEN GUADALUPE ([id number]) 1935 M Date Time Provider Department 04/25/22 MARIKA ZUÑIGA During your visit today, we recorded the following information about you: Marika Zuñiga RN 04/25/2022 2:11 PM Signed SPECIALTY CARE COORDINATION FOLLOW-UP NOTE Call back placed to pt aureliano. 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 Normal [facility] Flexible Sigmoidoscopyon Flexible sigmoidoscopy A30 Gastrointestinal Endoscopy [...] previous diet. Procedure Code(s): --- Professional --- 10650, Sigmoidoscopy, flexible; diagnostic, including collection of specimen(s) by brushing or washing, when performed (separate procedure) Diagnosis Code(s): --- Professional --- K64.3, Fourth degree hemorrhoids K62.1, Rectal polyp K92.1, Melena (includes Hematochezia) K57.30, Diverticulosis of large intestine without perforation or abscess without bleeding CPT copyright 2019 [employer] [employer]. All rights reserved. The codes documented in this report are preliminary and upon boss miner review may be revised to meet current compliance requirements. Attending Participation: I personally performed the entire procedure. Scope In: Scope Out: Dr. Tristin Wilcox MD 04/17/2022 2:21:53 PM This report has been signed electronically. Number of Addenda: 0 Note Initiated On: 04/17/2022 1:38 PM Normal [facility] HISTORY PHYSICALon 2 HISTORY PHYSICAL HNO ID: [id number] Author: Tristin Wilcox MD, PhD Service: ? [...] PACC s (more content not included)... Normal [facility] SIGMOIDOSCOPYon 04-17-2022 [facility] POINT OF CARE GLUCOSEon 04-06 Glucose [Mass/Vol] 268 mg/dL Critically high 74-106 [facility] Comment on above: Performed By: #### P OCGLUC #### [facility] [address] [place] [address] Dr. Mason Astudillo CBC AUTO DIFFon 04-11-2022 BASO # 0.0 103/ul Normal 0.0-0.1 [facility] Comment on above: Performed By: #### U A #### [facility] [address] [address] [address] Mason Astudillo Basophils/100 WBC (Bld) 0.4 % Normal 0.2-2.0 [facility] Comment on above: Performed By: #### U A #### [facility] [address] [place] [address] Dr. Mason Astudillo EO # 0.1 103/ul Normal 0.0-0.7 [facility] Comment on above: Performed By: #### U A #### [facility] [address] [address] [address] Mason Astudillo Eosinophils/100 WBC (Bld) 1.9 % Normal 0.9-7.0 [facility] Comment on above: Performed By: #### U A #### [facility] [address] [place] [address] Dr. Mason Astudillo Erythrocyte distribution width (RBC) [Ratio] 16.0 % Critically high 11.0-15.0 [facility] Comment on above: Performed By: #### U A #### [facility] [address] [place] [address] Dr. Mason Astudillo Hematocrit (Bld) [Volume fraction] 27.4 % Critically low 42.0-54.0 [facility] Comment on above: Performed By: #### U A #### [facility] [address] [place] [address] Dr. Mason Astudillo Hemoglobin (Bld) [Mass/Vol] 8.7 g/dL Critically low 14.0-18.0 [facility] Comment on above: Performed By: #### U A #### [facility] [address] [place] [address] Dr. Mason Astudillo IG # 0.03 10e3/ul Normal 0.00-0.03 [facility] Comment on above: Performed By: #### U A #### [facility] [address] [place] [address] Dr. Mason Astudillo IG % 0.6 % Critically high 0.0-0.5 [facility] Comment on above: Performed By: #### U A #### [facility] [address] [place] [address] Dr. Mason Astudillo LYMPH # 0.7 103/ul Critically low 1.2-3.8 [facility] Comment on above: Performed By: #### U A #### [facility] [address] [place] [address] Dr. Mason Astudillo Lymphocytes/100 WBC (Bld) 15.8 % Critically low 20.5-60.0 [facility] Comment on above: Performed By: #### U A #### [facility] [address] [place] [address] Dr. Mason Astudillo MANUAL DIFF REQ NO Normal [facility] Comment on above: Performed By: #### U A #### [facility] [address] [place] [address] Dr. Mason Astudillo MCH (RBC) [Entitic mass] 29.9 pg Normal 25.9-34.0 [facility] Comment on above: Performed By: #### U A #### [facility] [address] [place] [address] Dr. Mason Astudillo MCHC (RBC) [Mass/Vol] 31.8 g/dL Normal 29.9-35.2 [facility] Comment on above: Performed By: #### U A #### [facility] [address] [place] [address] Dr. Mason Astudillo MCV (RBC) [Entitic vol] 94.2 fL Critically high 80.0-94.0 [facility] Comment on above: Performed By: #### U A #### [facility] [address] [place] [address] Dr. Mason Astudillo MONO # 0.3 103/ul Normal 0.3-0.8 [facility] Comment on above: Performed By: #### U A #### [facility] [address] [place] [address] Dr. Mason Astudillo Monocytes/100 WBC (Bld) 6.9 % Normal 1.7-12.0 [facility] Comment on above: Performed By: #### U A #### [facility] [address] [place] [address] Dr. Mason Astudillo NEUT # 3.4 103/ul Normal 1.4-6.5 [facility] Comment on above: Performed By: #### U A #### [facility] [address] [place] [address] Dr. Mason Astudillo Neutrophils/100 WBC (Bld) 74.4 % Normal 43.0-75.0 [facility] Comment on above: Performed By: #### U A #### [facility] [address] [place], [place] [id number] Dr. Mason Astudillo Platelet mean volume (Bld) [Entitic vol] 10.6 fL Normal 9.5-13.5 [facility] Comment on above: Performed By: #### U A #### [facility] [address] [place] [address] Dr. Mason Astudillo PLT 117 103/ul Critically low 150-450 [facility] Comment on above: Performed By: #### U A #### [facility] [address] [place] [address] Dr. Mason Astudillo RBC 2.91 106/ul Critically low 4.70-6.10 [facility] Comment on above: Performed By: #### U A #### [facility] [address] [place] [address] Dr. Mason Astudillo WBC 4.6 103/ul Normal 4.0-11.0 [facility] Comment on above: Performed By: #### U A #### [facility] [address] [place] [address] Dr. Mason Astudillo CARDIAC STRESS TESTon 2021 [...] be dictated separately by Radiology. Normal [facility] NM STRESS/REST MULTIon 03-26 NM STRESS/REST MULTI Patient: BEN GUADALUPE Exam Date: 03/26/2022 : 1935 Gender:M Ordering : DR KAVITA DANIELLE M.D. Admission #: [id number] Family : Order #: [id number] CLICK HERE TO VIEW EXAM RADIOLOGY REPORT [...] Patel MD on 03/27/2022 at 08:14 Normal [facility] CBC AUTO DIFFon 03-18-2022 BASO # 0.0 103/ul Normal 0.0-0.1 [facility] Comment on above: Performed By: #### P OCGLUC #### [facility] [address] [place] [address] Dr. Mason Astudillo Basophils/100 WBC (Bld) 0.5 % Normal 0.2-2.0 [facility] Comment on above: Performed By: #### P OCGLUC #### [facility] [address] [place] [address] Dr. Mason Astudillo EO # 0.1 103/ul Normal 0.0-0.7 [facility] Comment on above: Performed By: #### P OCGLUC #### [facility] [address] [place] [address] Dr. Mason Astudillo Eosinophils/100 WBC (Bld) 2.3 % Normal 0.9-7.0 [facility] Comment on above: Performed By: #### P OCGLUC #### [facility] [address] [place] [address] Dr. Mason Astudillo Erythrocyte distribution width (RBC) [Ratio] 17.2 % Critically high 11.0-15.0 [facility] Comment on above: Performed By: #### P OCGLUC #### [facility] [address] [place] [address] Dr. Mason Astudillo Hematocrit (Bld) [Volume fraction] 43.9 % Normal 42.0-54.0 [facility] Comment on above: Performed By: #### P OCGLUC #### [facility] [address] [place] [address] Dr. Mason Astudillo Hemoglobin (Bld) [Mass/Vol] 14.1 g/dL Normal 14.0-18.0 [facility] Comment on above: Performed By: #### P OCGLUC #### [facility] [address] [place] [address] Dr. Mason Astudillo IG # 0.04 10e3/ul Critically high 0.00-0.03 [facility] Comment on above: Performed By: #### P OCGLUC #### [facility] [address] [place] [address] Dr. Mason Astudillo IG % 0.7 % Critically high 0.0-0.5 [facility] Comment on above: Performed By: #### P OCGLUC #### [facility] [address] [place] [address] Dr. Mason Astudillo LYMPH # 1.1 103/ul Critically low 1.2-3.8 [facility] Comment on above: Performed By: #### P OCGLUC #### [facility] [address] [place] [address] Dr. Mason Astudillo Lymphocytes/100 WBC (Bld) 18.3 % Critically low 20.5-60.0 [facility] Comment on above: Performed By: #### P OCGLUC #### [facility] [address] [place] [address] Dr. Mason Astudillo MANUAL DIFF REQ NO Normal [facility] Comment on above: Performed By: #### P OCGLUC #### [facility] [address] [place] [address] Dr. Mason Astudillo MCH (RBC) [Entitic mass] 29.3 pg Normal 25.9-34.0 [facility] Comment on above: Performed By: #### P OCGLUC #### [facility] [address] [place] [address] Dr. Mason Astudillo MCHC (RBC) [Mass/Vol] 32.1 g/dL Normal 29.9-35.2 [facility] Comment on above: Performed By: #### P OCGLUC #### [facility] [address] [place] [address] Dr. Mason Astudillo MCV (RBC) [Entitic vol] 91.1 fL Normal 80.0-94.0 [facility] Comment on above: Performed By: #### P OCGLUC #### [facility] [address] [place] [address] Dr. Mason Astudillo MONO # 0.5 103/ul Normal 0.3-0.8 [facility] Comment on above: Performed By: #### P OCGLUC #### [facility] [address] [place] [address] Dr. Mason Astudillo Monocytes/100 WBC (Bld) 7.7 % Normal 1.7-12.0 [facility] Comment on above: Performed By: #### P OCGLUC #### [facility] [address] [place] [address] Dr. Mason Astudillo NEUT # 4.3 103/ul Normal 1.4-6.5 [facility] Comment on above: Performed By: #### P OCGLUC #### [facility] [address] [place] [address] Dr. Mason Astudillo Neutrophils/100 WBC (Bld) 70.5 % Normal 43.0-75.0 [facility] Comment on above: Performed By: #### P OCGLUC #### [facility] [address] [place] [address] Dr. Mason Astudillo Platelet mean volume (Bld) [Entitic vol] 9.9 fL Normal 9.5-13.5 [facility] Comment on above: Performed By: #### P OCGLUC #### [facility] [address] [place] [address] Dr. Mason Astudillo PLT 130 103/ul Critically low 150-450 [facility] Comment on above: Performed By: #### P OCGLUC #### [facility] [address] [place] [address] Dr. Mason Astudillo RBC 4.82 106/ul Normal 4.70-6.10 [facility] Comment on above: Performed By: #### P OCGLUC #### [facility] [address] [place] [address] Dr. Mason Astudillo WBC 6.1 103/ul Normal 4.0-11.0 [facility] Comment on above: Performed By: #### P OCGLUC #### [facility] [address] [place] [address] Dr. Mason Astudillo PROF CHEM 8 (BAS METB)on Anion gap [Moles/Vol] 10.8 mmol/L Normal [facility] Comment on above: Performed By: #### U A #### [facility] [address] [place] [address] Dr. Mason Astudillo Calcium [Mass/Vol] 8.8 mg/dL Normal 8.5-10.1 [facility] Comment on above: Performed By: #### U A #### [facility] [address] [place] [address] Dr. Mason Astudillo Chloride [Moles/Vol] 103 mmol/L Normal 98-107 [facility] Comment on above: Performed By: #### U A #### [facility] [address] [place] [address] Dr. Mason Astudillo CO2 [Moles/Vol] 29.9 mmol/L Normal 21.0-32.0 [facility] Comment on above: Performed By: #### U A #### [facility] [address] [place] [address] Dr. Mason Astudillo Creatinine [Mass/Vol] 1.20 mg/dL Normal 0.70-1.30 [facility] Comment on above: Performed By: #### U A #### [facility] [address] [place] [address] Dr. Mason Astudillo EGFR-AF ANGOLAN >60 Normal >=60 [facility] Comment on above: Performed By: #### U A #### [facility] [address] [place] [address] Dr. Mason Astudillo EGFR-NON AF ANGOLAN 58 mL/min/1.73m2 Critically low >=60 [facility] Comment on above: Performed By: #### U A #### [facility] [address] [place] [address] Dr. Mason Astudillo Glucose [Mass/Vol] 202 mg/dL Critically high 74-106 [facility] Comment on above: Performed By: #### U A #### [facility] [address] [place] [address] Dr. Mason Astudillo Potassium [Moles/Vol] 3.7 mmol/L Normal 3.5-5.1 [facility] Comment on above: Performed By: #### U A #### [facility] [address] [place] [address] Dr. Mason Astudillo Sodium [Moles/Vol] 140 mmol/L Normal 136-145 [facility] Comment on above: Performed By: #### U A #### [facility] [address] [place] [address] Dr. Mason Astudillo Urea nitrogen [Mass/Vol] 22.0 mg/dL Critically high 7.0-18.0 [facility] Comment on above: Performed By: #### U A #### [facility] [address] [place] [address] Dr. Mason Astudillo Urea nitrogen/Creatinine [Mass ratio] 18.3 mg/mg Normal [facility] Comment on above: Performed By: #### U A #### [facility] [address] [place] [address] Dr. Mason Astudillo XR KUB 1 VIEWon 02-18-2022 XR KUB [...] BRISA SALAS Date: 2022-02-18 15:45 Normal [facility] VIT D 25-OH LABCORPon 2021 Vitamin D, 25-Hydroxy 27.3 ng/mL Critically low 30.0-100.0 [facility] Comment on above: Result Comment: Masha min D deficiency has been defined by the [employer] and an Endocrine Society practice guideline as a level of serum 25-OH vitamin D less than 20 ng/mL (1,2). The Endocrine Society went on to further define vitamin D insufficiency as a level between 21 and 29 ng/mL (2). 1. IOM ([place]). 2010. Dietary reference intakes for calcium and D. [place]: The National Academies Press. 2. Hemalatha MF, [place]ar [place], Ernie-Phil ROUSE, et al. Evaluation, treatment, and prevention of vitamin D deficiency: an Endocrine Society clinical practice guideline. JCEM. 2010; 96(7):1911-30. Performed By: #### A 1C #### [facility] [address] [address] [address] Mason Astudillo CBC AUTO DIFFon 02-06-2022 BASO # 0.0 103/ul Normal 0.0-0.1 [facility] Comment on above: Performed By: #### A 1C #### [facility] [address] [address] [address] Mason Astudillo Basophils/100 WBC (Bld) 0.4 % Normal 0.2-2.0 [facility] Comment on above: Performed By: #### A 1C #### [facility] [address] [address] [address] Mason Astudillo EO # 0.1 103/ul Normal 0.0-0.7 [facility] Comment on above: Performed By: #### A 1C #### [facility] [address] [place] [address] Dr. Mason Astudillo Eosinophils/100 WBC (Bld) 2.5 % Normal 0.9-7.0 [facility] Comment on above: Performed By: #### A 1C #### [facility] [address] [place] [address] Dr. Mason Astudillo Erythrocyte distribution width (RBC) [Ratio] 16.6 % Critically high 11.0-15.0 [facility] Comment on above: Performed By: #### A 1C #### [facility] [address] [place] [address] Dr. Mason Astudillo Hematocrit (Bld) [Volume fraction] 26.8 % Critically low 42.0-54.0 [facility] Comment on above: Performed By: #### A 1C #### [facility] [address] [place] [address] Dr. Mason Astudillo Hemoglobin (Bld) [Mass/Vol] 8.4 g/dL Critically low 14.0-18.0 [facility] Comment on above: Performed By: #### A 1C #### [facility] [address] [place] [address] Dr. Mason Astudillo IG # 0.12 10e3/ul Critically high 0.00-0.03 [facility] Comment on above: Performed By: #### A 1C #### [facility] [address] [place] [address] Dr. Mason Astudillo IG % 2.5 % Critically high 0.0-0.5 [facility] Comment on above: Performed By: #### A 1C #### [facility] [address] [place] [address] Dr. Mason Astudillo LYMPH # 0.9 103/ul Critically low 1.2-3.8 [facility] Comment on above: Performed By: #### A 1C #### [facility] [address] [place] [address] Dr. Mason Astudillo Lymphocytes/100 WBC (Bld) 18.1 % Critically low 20.5-60.0 [facility] Comment on above: Performed By: #### A 1C #### [facility] [address] [place] [address] Dr. Mason Astudillo MANUAL DIFF REQ NO Normal [facility] Comment on above: Performed By: #### A 1C #### [facility] [address] [place] [address] Dr. Mason Astudillo MCH (RBC) [Entitic mass] 27.7 pg Normal 25.9-34.0 [facility] Comment on above: Performed By: #### A 1C #### [facility] [address] [place] [address] Dr. Mason Astudillo MCHC (RBC) [Mass/Vol] 31.3 g/dL Normal 29.9-35.2 [facility] Comment on above: Performed By: #### A 1C #### [facility] [address] [place] [address] Dr. Mason Astudillo MCV (RBC) [Entitic vol] 88.4 fL Normal 80.0-94.0 [facility] Comment on above: Performed By: #### A 1C #### [facility] [address] [place] [address] Dr. Mason Astudillo MONO # 0.4 103/ul Normal 0.3-0.8 [facility] Comment on above: Performed By: #### A 1C #### [facility] [address] [place] [address] Dr. Mason Astudillo Monocytes/100 WBC (Bld) 9.1 % Normal 1.7-12.0 [facility] Comment on above: Performed By: #### A 1C #### [facility] [address] [place] [address] Dr. Mason Astudillo NEUT # 3.2 103/ul Normal 1.4-6.5 [facility] Comment on above: Performed By: #### A 1C #### [facility] [address] [place] [address] Dr. Mason Astudillo Neutrophils/100 WBC (Bld) 67.4 % Normal 43.0-75.0 [facility] Comment on above: Performed By: #### A 1C #### [facility] [address] [address] [address] Mason Astudillo Platelet mean volume (Bld) [Entitic vol] 10.2 fL Normal 9.5-13.5 [facility] Comment on above: Performed By: #### A 1C #### [facility] [address] [address] [address] Mason Astudillo PLT 135 103/ul Critically low 150-450 [facility] Comment on above: Performed By: #### A 1C #### [facility] [address] [address] [address] Mason Astudillo RBC 3.03 106/ul Critically low 4.70-6.10 [facility] Comment on above: Performed By: #### A 1C #### [facility] [address] [place] [address] Dr. Mason Astudillo WBC 4.7 103/ul Normal 4.0-11.0 [facility] Comment on above: Performed By: #### A 1C #### [facility] [address] [place] [address] Dr. Mason Astudillo GLYCOHEMOGLOBIN A1Con 2021 ADA RECOMMENDATION SEE BELOW Normal [facility] Comment on above: Result Comment: ADA RECOMMENDED LIMIT 4.0 - 6.0 ADA THERAPEUTIC TARGET < 7.0 ACTION SUGGESTED > 7.0 Performed By: #### A 1C #### [facility] [address] [address] [address] Mason Astudillo Glucose [Mass/Vol] 148 mg/dL Normal [facility] Comment on above: Performed By: #### A 1C #### [facility] [address] [address] [address] Mason Astudillo HbA1c (Bld) [Mass fraction] 6.8 % Critically high 4.5-6.2 [facility] Comment on above: Performed By: #### A 1C #### [facility] [address] [place] [address] Dr. Mason Astudillo POINT OF CARE GLUCOSEon 08-0 Glucose [Mass/Vol] 157 mg/dL Critically high 74-106 [facility] Comment on above: Performed By: #### P OCGLUC #### [facility] [address] [place] [address] Dr. Mason Astudillo PROF CHEM 8 (BAS METB)on Anion gap [Moles/Vol] 10.5 mmol/L Normal [facility] Comment on above: Performed By: #### B MP #### [facility] [address] [place] [address] Dr. Mason Astudillo Calcium [Mass/Vol] 8.0 mg/dL Critically low 8.5-10.1 [facility] Comment on above: Performed By: #### B MP #### [facility] [address] [place] [address] Dr. Mason Astudillo Chloride [Moles/Vol] 105 mmol/L Normal 98-107 [facility] Comment on above: Performed By: #### B MP #### [facility] [address] [place] [address] Dr. Mason Astudillo CO2 [Moles/Vol] 27.2 mmol/L Normal 21.0-32.0 [facility] Comment on above: Performed By: #### B MP #### [facility] [address] [place] [address] Dr. Mason Astudillo Creatinine [Mass/Vol] 1.11 mg/dL Normal 0.70-1.30 [facility] Comment on above: Performed By: #### B MP #### [facility] [address] [place] [address] Dr. Mason Astudillo EGFR-AF ANGOLAN >60 Normal >=60 [facility] Comment on above: Performed By: #### B MP #### [facility] [address] [place] [address] Dr. Mason Astudillo EGFR-NON AF ANGOLAN >60 Normal >=60 [facility] Comment on above: Performed By: #### B MP #### [facility] [address] [place] [address] Dr. Mason Astudillo Glucose [Mass/Vol] 174 mg/dL Critically high 74-106 [facility] Comment on above: Performed By: #### B MP #### [facility] [address] [address] [address] Mason Astudillo Potassium [Moles/Vol] 3.7 mmol/L Normal 3.5-5.1 [facility] Comment on above: Performed By: #### B MP #### [facility] [address] [address] [address] Mason Astudillo Sodium [Moles/Vol] 139 mmol/L Normal 136-145 [facility] Comment on above: Performed By: #### B MP #### [facility] [address] [place] [address] Dr. Mason Astudillo Urea nitrogen [Mass/Vol] 19.0 mg/dL Critically high 7.0-18.0 [facility] Comment on above: Performed By: #### B MP #### [facility] [address] [place] [address] Dr. Mason Astudillo Urea nitrogen/Creatinine [Mass ratio] 17.1 mg/mg Normal [facility] Comment on above: Performed By: #### B MP #### [facility] [address] [place] [address] Dr. Mason Astudillo CBC W MANUAL DIFFon 02-06-20 22 ATYPICAL LYMPH # Normal [facility] Comment on above: Performed By: #### C BC #### [facility] [address] [place] [address] Dr. Mason Astudillo ATYPICAL LYMPH % Normal [facility] Comment on above: Performed By: #### C BC #### [facility] [address] [place] [address] Dr. Mason Astudillo BAND # 0.0 103/ul Normal 0.0-0.3 [facility] Comment on above: Performed By: #### C BC #### [facility] [address] [place] [address] Dr. Maosn Astudillo BAND % 0 % Normal 0-5 [facility] Comment on above: Performed By: #### C BC #### [facility] [address] [place] [address] Dr. Mason Astudillo BASOM # 0.06 103/ul Normal 0.00-0.10 [facility] Comment on above: Performed By: #### C BC #### [facility] [address] [place] [address] Dr. Mason Astudillo BASOM % 1.0 % Normal 0.2-2.0 [facility] Comment on above: Performed By: #### C BC #### [facility] [address] [place] [address] Dr. Mason Astudillo BLAST # Normal [facility] Comment on above: Performed By: #### C BC #### [facility] [address] [place] [address] Dr. Mason Astudillo BLAST % Normal [facility] Comment on above: Performed By: #### C BC #### [facility] [address] [place] [address] Dr. Mason Astudillo CORRECTED WBC Normal 4.0-11.0 [facility] Comment on above: Performed By: #### C BC #### [facility] [address] [place] [address] Dr. Mason Astudillo EOS # 0.17 103/ul Normal 0.00-0.70 [facility] Comment on above: Performed By: #### C BC #### [facility] [address] [place] [address] Dr. Mason Astudillo EOS% 3.0 % Normal 0.9-7.0 [facility] Comment on above: Performed By: #### C BC #### [facility] [address] [place] [address] Dr. Mason Astudillo HCT 27.4 % Critically low 42.0-54.0 [facility] Comment on above: Performed By: #### C BC #### [facility] [address] [place] [address] Dr. Mason Astudillo HGB 8.6 g/dl Critically low 14.0-18.0 [facility] Comment on above: Performed By: #### C BC #### [facility] [address] [place] [address] Dr. Mason Astudillo LYMPHM # 0.56 103/ul Critically low 1.20-3.80 [facility] Comment on above: Performed By: #### C BC #### [facility] [address] [place] [address] Dr. Mason Astudillo LYMPHM% 10.0 % Critically low 20.5-60.0 [facility] Comment on above: Performed By: #### C BC #### [facility] [address] [place] [address] Dr. Mason Astudillo MCH 27.7 pg Normal 25.9-34.0 [facility] Comment on above: Performed By: #### C BC #### [facility] [address] [place] [address] Dr. Mason Astudillo MCHC 31.4 g/dl Normal 29.9-35.2 [facility] Comment on above: Performed By: #### C BC #### [facility] [address] [place] [address] Dr. Mason Astudillo MCV 88.1 fL Normal 80.0-94.0 [facility] Comment on above: Performed By: #### C BC #### [facility] [address] [place] [address] Dr. Mason Astudillo METAMYELOCYTE # Normal [facility] Comment on above: Performed By: #### C BC #### [facility] [address] [place] [address] Dr. Mason Astudillo METAMYELOCYTE % Normal [facility] Comment on above: Performed By: #### C BC #### [facility] [address] [place] [address] Dr. Mason Astudillo MONOM# 0.34 103/ul Normal 0.30-0.80 [facility] Comment on above: Performed By: #### C BC #### [facility] [address] [place] [address] Dr. Mason Astudillo MONOM% 6.0 % Normal 1.7-12.0 [facility] Comment on above: Performed By: #### C BC #### [facility] [address] [place] [address] Dr. Mason Astudillo MPV 10.5 fL Normal 9.5-13.5 [facility] Comment on above: Performed By: #### C BC #### [facility] [address] [place] [address] Dr. Mason Astudillo MYELOCYTE # Normal [facility] Comment on above: Performed By: #### C BC #### [facility] [address] [place] [address] Dr. Mason Astudillo MYELOCYTE % Normal [facility] Comment on above: Performed By: #### C BC #### [facility] [address] [place] [address] Dr. Mason Astudillo NRBC Normal [facility] Comment on above: Performed By: #### C BC #### [facility] [address] [place] [address] Dr. Mason Astudillo OVALOCYTES 1+ Normal [facility] Comment on above: Performed By: #### C BC #### [facility] [address] [place] [address] Dr. Mason Astudillo PLT 124 103/ul Critically low 150-450 [facility] Comment on above: Performed By: #### C BC #### [facility] [address] [place] [address] Dr. Mason Astudillo RBC 3.11 106/ul Critically low 4.70-6.10 [facility] Comment on above: Performed By: #### C BC #### [facility] [address] [place] [address] Dr. Mason Astudillo RDW 15.9 % Critically high 11.0-15.0 [facility] Comment on above: Performed By: #### C BC #### [facility] [address] [place] [address] Dr. Mason Astudillo SEG # 4.48 103/ul Normal 1.40-6.50 [facility] Comment on above: Performed By: #### C BC #### [facility] [address] [place] [address] Dr. Mason Astudillo SEG % 80.0 % Critically high 43.0-75.0 [facility] Comment on above: Performed By: #### C BC #### [facility] [address] [address] [address] Mason Astudillo WBC 5.6 103/ul Normal 4.0-11.0 [facility] Comment on above: Performed By: #### C BC #### [facility] [address] [address] [address] Mason Astudillo POINT OF CARE GLUCOSEon Glucose [Mass/Vol] 260 mg/dL Critically high [address] [place] [address] Comment on above: Performed By: #### P OCGLUC #### [facility] [address] [address] [address] Mason Astudillo Glucose [Mass/Vol] 165 mg/dL Critically high [address] [place] [address] Comment on above: Performed By: #### A 1C #### [facility] [address] [place] [address] Dr. Mason Astudillo Glucose [Mass/Vol] 147 mg/dL Critically high [address] [place] [address] Comment on above: Performed By: #### C BC #### [facility] [address] [address] [address] Mason Astudillo PROF CHEM 8 (BAS METB)on Anion gap [Moles/Vol] 11.0 mmol/L Normal [facility] Comment on above: Performed By: #### U A #### [facility] [address] [address] [address] Mason Astudillo Calcium [Mass/Vol] 8.0 mg/dL Critically low 8.5-10.1 [facility] Comment on above: Performed By: #### U A #### [facility] [address] [address] [address] Mason Astudillo Chloride [Moles/Vol] 106 mmol/L Normal 98-107 [facility] Comment on above: Performed By: #### U A #### [facility] [address] [place] [address] Dr. Mason Astudillo CO2 [Moles/Vol] 26.7 mmol/L Normal 21.0-32.0 [facility] Comment on above: Performed By: #### U A #### [facility] [address] [address] [address] Mason Astudillo Creatinine [Mass/Vol] 1.22 mg/dL Normal 0.70-1.30 [facility] Comment on above: Performed By: #### U A #### [facility] [address] [address] [address] Mason Astudillo EGFR-AF ANGOLAN >60 Normal >=60 [facility] Comment on above: Performed By: #### U A #### [facility] [address] [address] [address] Mason Astudillo EGFR-NON AF ANGOLAN 56 mL/min/1.73m2 Critically low >=60 [facility] Comment on above: Performed By: #### U A #### [facility] [address] [address] [address] Mason Astudillo Glucose [Mass/Vol] 147 mg/dL Critically high 74-106 [facility] Comment on above: Performed By: #### U A #### [facility] [address] [address] [address] Mason Astudillo Potassium [Moles/Vol] 3.7 mmol/L Normal 3.5-5.1 [facility] Comment on above: Performed By: #### U A #### [facility] [address] [address] [address] Mason Astudillo Sodium [Moles/Vol] 140 mmol/L Normal 136-145 [facility] Comment on above: Performed By: #### U A #### [facility] [address] [address] [address] Mason Astudillo Urea nitrogen [Mass/Vol] 17.0 mg/dL Normal 7.0-18.0 [facility] Comment on above: Performed By: #### U A #### [facility] [address] [address] [address] Mason Astudillo Urea nitrogen/Creatinine [Mass ratio] 13.9 mg/mg Normal [facility] Comment on above: Performed By: #### U A #### [facility] [address] [place] [address] Dr. Mason Astudillo CBC AUTO DIFFon 02-04-2022 BASO # 0.0 103/ul Normal 0.0-0.1 [facility] Comment on above: Performed By: #### C BC #### [facility] [address] [place] [address] Dr. Mason Astudillo Basophils/100 WBC (Bld) 0.2 % Normal 0.2-2.0 [facility] Comment on above: Performed By: #### C BC #### [facility] [address] [place] [address] Dr. Mason Astudillo EO # 0.2 103/ul Normal 0.0-0.7 [facility] Comment on above: Performed By: #### C BC #### [facility] [address] [place] [address] Dr. Mason Astudillo Eosinophils/100 WBC (Bld) 3.4 % Normal 0.9-7.0 [facility] Comment on above: Performed By: #### C BC #### [facility] [address] [place] [address] Dr. Mason Astudillo Erythrocyte distribution width (RBC) [Ratio] 15.6 % Critically high 11.0-15.0 [facility] Comment on above: Performed By: #### C BC #### [facility] [address] [place] [address] Dr. Mason Astudillo Hematocrit (Bld) [Volume fraction] 26.1 % Critically low 42.0-54.0 [facility] Comment on above: Performed By: #### C BC #### [facility] [address] [place] [address] Dr. Mason Astudillo Hemoglobin (Bld) [Mass/Vol] 8.2 g/dL Critically low 14.0-18.0 [facility] Comment on above: Performed By: #### C BC #### [facility] [address] [place] [address] Dr. Mason Astudillo IG # 0.06 10e3/ul Critically high 0.00-0.03 [facility] Comment on above: Performed By: #### C BC #### [facility] [address] [place] [address] Dr. Mason Astudillo IG % 1.4 % Critically high 0.0-0.5 [facility] Comment on above: Performed By: #### C BC #### [facility] [address] [place] [address] Dr. Mason Astudillo LYMPH # 0.6 103/ul Critically low 1.2-3.8 [facility] Comment on above: Performed By: #### C BC #### [facility] [address] [place] [address] Dr. Mason Astudillo Lymphocytes/100 WBC (Bld) 14.3 % Critically low 20.5-60.0 [facility] Comment on above: Performed By: #### C BC #### [facility] [address] [place] [address] Dr. Mason Astudillo MANUAL DIFF REQ NO Normal [facility] Comment on above: Performed By: #### C BC #### [facility] [address] [place] [address] Dr. Mason Astudillo MCH (RBC) [Entitic mass] 27.4 pg Normal 25.9-34.0 [facility] Comment on above: Performed By: #### C BC #### [facility] [address] [place] [address] Dr. Mason Astudillo MCHC (RBC) [Mass/Vol] 31.4 g/dL Normal 29.9-35.2 [facility] Comment on above: Performed By: #### C BC #### [facility] [address] [place] [address] Dr. Mason Astudillo MCV (RBC) [Entitic vol] 87.3 fL Normal 80.0-94.0 [facility] Comment on above: Performed By: #### C BC #### [facility] [address] [place] [address] Dr. Mason Astudillo MONO # 0.5 103/ul Normal 0.3-0.8 [facility] Comment on above: Performed By: #### C BC #### [facility] [address] [place] [address] Dr. Mason Astudillo Monocytes/100 WBC (Bld) 10.4 % Normal 1.7-12.0 [facility] Comment on above: Performed By: #### C BC #### [facility] [address] [place] [address] Dr. Mason Astudillo NEUT # 3.1 103/ul Normal 1.4-6.5 [facility] Comment on above: Performed By: #### C BC #### [facility] [address] [place] [address] Dr. Mason Astudillo Neutrophils/100 WBC (Bld) 70.3 % Normal 43.0-75.0 [facility] Comment on above: Performed By: #### C BC #### [facility] [address] [place] [address] Dr. Mason Astudillo Platelet mean volume (Bld) [Entitic vol] 10.5 fL Normal 9.5-13.5 [facility] Comment on above: Performed By: #### C BC #### [facility] [address] [place] [address] Dr. Mason Astudillo PLT 105 103/ul Critically low 150-450 [facility] Comment on above: Performed By: #### C BC #### [facility] [address] [place] [address] Dr. Mason Astudillo RBC 2.99 106/ul Critically low 4.70-6.10 [facility] Comment on above: Performed By: #### C BC #### [facility] [address] [place] [address] Dr. Mason Astudillo WBC 4.4 103/ul Normal 4.0-11.0 [facility] Comment on above: Performed By: #### C BC #### [facility] [address] [place] [address] Dr. Mason Astudillo ECHOCARDIO M/2D COMPLETEon 0 02-04-2022 ECHOCARDIO M/2D COMPLETE Patient: BEN GUADALUPE Exam Date: 02/04/2022 : 1935 Gender:M Ordering : DR COLTON CASTELLON . Admission #: [id number] Family : SHAIKH Samantha ELLIOTT . Order #: [id number] CLICK HERE TO VIEW EXAM ECHOCARDIOGRAM REPORT [...] Cheney M.D. on 02/04/2022 at 13:39 Normal [facility] POINT OF CARE GLUCOSEon 08-0 Glucose [Mass/Vol] 262 mg/dL Critically high 74-106 T [facility] Comment on above: Performed By: #### C #### [facility] [address] [place] [address] Dr. Mason Astudillo Glucose [Mass/Vol] 167 mg/dL Critically high 74-106 [facility] Comment on above: Performed By: #### C BC #### [facility] [address] [place] [address] Dr. Mason Astudillo Glucose [Mass/Vol] 158 mg/dL Critically high 74-106 [facility] Comment on above: Performed By: #### P OCGLUC #### [facility] [address] [place] [address] Dr. Mason Astudillo PRBC LEUKOREDUCEDon 02-05-20 ABO and Rh group Nom (Bld) Cross Match Result Compatible Unit Blood Type A Neg Unit Number [id number] Status Information Transfused Product ID Red Blood Cells Product Code [id number] Cross Match Result Compatible Unit Blood Type A Neg Unit Number [id number] Status Information Transfused Product ID Red Blood Cells Product Code [id number] Normal [facility] Comment on above: Performed By: #### P SAD #### [facility] [address] [place] [address] Dr. Mason Astudillo PROF CHEM 8 (BAS METB)on Anion gap [Moles/Vol] 11.5 mmol/L Normal [facility] Comment on above: Performed By: #### C BC #### [facility] [address] [place] [address] Dr. Mason Astudillo Calcium [Mass/Vol] 7.4 mg/dL Critically low 8.5-10.1 [facility] Comment on above: Performed By: #### C BC #### [facility] [address] [place] [address] Dr. Mason Astudillo Chloride [Moles/Vol] 106 mmol/L Normal 98-107 [facility] Comment on above: Performed By: #### C BC #### [facility] [address] [place] [address] Dr. Mason Astudillo CO2 [Moles/Vol] 25.8 mmol/L Normal 21.0-32.0 [facility] Comment on above: Performed By: #### C BC #### [facility] [address] [place] [address] Dr. Mason Astudillo Creatinine [Mass/Vol] 1.07 mg/dL Normal 0.70-1.30 [facility] Comment on above: Performed By: #### C BC #### [facility] [address] [place] [address] Dr. Mason Astudillo EGFR-AF ANGOLAN >60 Normal >=60 [facility] Comment on above: Performed By: #### C BC #### [facility] [address] [place] [address] Dr. Mason Astudillo EGFR-NON AF ANGOLAN >60 Normal >=60 [facility] Comment on above: Performed By: #### C BC #### [facility] [address] [place] [address] Dr. Mason Astudillo Glucose [Mass/Vol] 165 mg/dL Critically high 74-106 [facility] Comment on above: Performed By: #### C BC #### [facility] [address] [place] [address] Dr. Mason Astudillo Potassium [Moles/Vol] 3.3 mmol/L Critically low 3.5-5.1 [facility] Comment on above: Performed By: #### C BC #### [facility] [address] [place] [address] Dr. Mason Astudillo Sodium [Moles/Vol] 140 mmol/L Normal 136-145 [facility] Comment on above: Performed By: #### C BC #### [facility] [address] [place] [address] Dr. Mason Astudillo Urea nitrogen [Mass/Vol] 19.0 mg/dL Critically high 7.0-18.0 [facility] Comment on above: Performed By: #### C BC #### [facility] [address] [place] [address] Dr. Mason Astudillo Urea nitrogen/Creatinine [Mass ratio] 17.8 mg/mg Normal [facility] Comment on above: Performed By: #### C BC #### [facility] [address] [place] [address] Dr. Mason Astudillo ABO RH RETYPEon 02-03-2022 ABO and Rh group Nom (Bld) DONE Normal [facility] Comment on above: Performed By: #### P OCGLUC #### [facility] [address] [place] [address] Dr. Mason Astudillo CBC AUTO DIFFon 02-03-2022 Basophils/100 WBC (Bld) 0.5 % Normal 0.2-2.0 [facility] Comment on above: Performed By: #### U A #### [facility] [address] [place] [address] Dr. Mason Astudillo EO # 0.2 103/ul Normal 0.0-0.7 [facility] Comment on above: Performed By: #### U A #### [facility] [address] [place] [address] Dr. Mason Astudillo Eosinophils/100 WBC (Bld) 2.9 % Normal 0.9-7.0 [facility] Comment on above: Performed By: #### U A #### [facility] [address] [place] [address] Dr. Mason Astudillo Erythrocyte distribution width (RBC) [Ratio] 15.7 % Critically high 11.0-15.0 [facility] Comment on above: Performed By: #### U A #### [facility] [address] [place] [address] Dr. Mason Astudillo Hematocrit (Bld) [Volume fraction] 31.1 % Critically low 42.0-54.0 [facility] Comment on above: Performed By: #### U A #### [facility] [address] [place] [address] Dr. Mason Astudillo Hemoglobin (Bld) [Mass/Vol] 9.7 g/dL Critically low 14.0-18.0 [facility] Comment on above: Result Comment: rcvd . 2 units of packed red cells. Performed By: #### U A #### [facility] [address] [place] [address] Dr. Mason Astudillo IG # 0.05 10e3/ul Critically high 0.00-0.03 [facility] Comment on above: Performed By: #### U A #### [facility] [address] [address] [address] Mason Astudillo IG % 0.8 % Critically high 0.0-0.5 [facility] Comment on above: Performed By: #### U A #### [facility] [address] [place] [address] Dr. Mason Astudillo LYMPH # 1.1 103/ul Critically low 1.2-3.8 [facility] Comment on above: Performed By: #### U A #### [facility] [address] [place] [address] Dr. Mason Astudillo Lymphocytes/100 WBC (Bld) 19.3 % Critically low 20.5-60.0 [facility] Comment on above: Performed By: #### U A #### [facility] [address] [place] [address] Dr. Mason Astudillo MCH (RBC) [Entitic mass] 27.2 pg Normal 25.9-34.0 [facility] Comment on above: Performed By: #### U A #### [facility] [address] [place] [address] Dr. Mason Astudillo MCHC (RBC) [Mass/Vol] 31.2 g/dL Normal 29.9-35.2 [facility] Comment on above: Performed By: #### U A #### [facility] [address] [place] [address] Dr. Mason Astudillo MCV (RBC) [Entitic vol] 87.1 fL Normal 80.0-94.0 [facility] Comment on above: Performed By: #### U A #### [facility] [address] [place] [address] Dr. Mason Astudillo MONO # 0.6 103/ul Normal 0.3-0.8 [facility] Comment on above: Performed By: #### U A #### [facility] [address] [place] [address] Dr. Mason Astudillo Monocytes/100 WBC (Bld) 10.7 % Normal 1.7-12.0 [facility] Comment on above: Performed By: #### U A #### [facility] [address] [address] [address] Mason Astudillo NEUT # 3.9 103/ul Normal 1.4-6.5 [facility] Comment on above: Performed By: #### U A #### [facility] [address] [place] [address] Dr. Mason Astudillo Neutrophils/100 WBC (Bld) 65.8 % Normal 43.0-75.0 [facility] Comment on above: Performed By: #### U A #### [facility] [address] [place] [address] Dr. Mason Astudillo Platelet mean volume (Bld) [Entitic vol] 10.5 fL Normal 9.5-13.5 [facility] Comment on above: Performed By: #### U A #### [facility] [address] [place] [address] Dr. Mason Astudillo PLT 147 103/ul Critically low 150-450 [facility] Comment on above: Performed By: #### U A #### [facility] [address] [place] [address] Dr. Mason Astudillo RBC 3.57 106/ul Critically low 4.70-6.10 [facility] Comment on above: Performed By: #### U A #### [facility] [address] [place] [address] Dr. Mason Astudillo WBC 5.9 103/ul Normal 4.0-11.0 [facility] Comment on above: Performed By: #### U A #### [facility] [address] [place] [address] Dr. Mason Astudillo BASO # 0.0 103/ul Normal 0.0-0.1 [facility] Comment on above: Performed By: #### U A #### [facility] [address] [place] [address] Dr. Mason Astudillo Basophils/100 WBC (Bld) 0.3 % Normal 0.2-2.0 [facility] Comment on above: Performed By: #### U A #### [facility] [address] [place] [address] Dr. Mason Astudillo EO # 0.1 103/ul Normal 0.0-0.7 [facility] Comment on above: Performed By: #### U A #### [facility] [address] [place] [address] Dr. Mason Astudillo Eosinophils/100 WBC (Bld) 2.5 % Normal 0.9-7.0 [facility] Comment on above: Performed By: #### U A #### [facility] [address] [place] [address] Dr. Mason Astudillo Erythrocyte distribution width (RBC) [Ratio] 15.9 % Critically high 11.0-15.0 [facility] Comment on above: Performed By: #### U A #### [facility] [address] [place] [address] Dr. Mason Astudillo Hematocrit (Bld) [Volume fraction] 22.3 % Critically low 42.0-54.0 [facility] Comment on above: Result Comment: Test Repeated. Critical Value Verified Performed By: #### U A #### [facility] [address] [place] [address] Dr. Mason Astudillo Hemoglobin (Bld) [Mass/Vol] 6.7 g/dL Critically low 14.0-18.0 [facility] Comment on above: Result Comment: Test Repeated. Critical Value Verified Performed By: #### U A #### [facility] [address] [place] [address] Dr. Mason Astudillo IG # 0.02 10e3/ul Normal 0.00-0.03 [facility] Comment on above: Performed By: #### U A #### [facility] [address] [place] [address] Dr. Mason Astudillo IG % 0.5 % Normal 0.0-0.5 [facility] Comment on above: Performed By: #### U A #### [facility] [address] [place] [address] Dr. Mason Astudillo LYMPH # 0.7 103/ul Critically low 1.2-3.8 [facility] Comment on above: Performed By: #### U A #### [facility] [address] [place] [address] Dr. Mason Astudillo Lymphocytes/100 WBC (Bld) 19.5 % Critically low 20.5-60.0 [facility] Comment on above: Performed By: #### U A #### [facility] [address] [place] [address] Dr. Mason Astudillo MANUAL DIFF REQ NO Normal [facility] Comment on above: Performed By: #### U A #### [facility] [address] [place] [address] Dr. Mason Astudillo MCH (RBC) [Entitic mass] 25.8 pg Critically low 25.9-34.0 [facility] Comment on above: Performed By: #### U A #### [facility] [address] [place] [address] Dr. Mason Astudillo MCHC (RBC) [Mass/Vol] 30.0 g/dL Normal 29.9-35.2 [facility] Comment on above: Performed By: #### U A #### [facility] [address] [place] [address] Dr. Mason Astudillo MCV (RBC) [Entitic vol] 85.8 fL Normal 80.0-94.0 [facility] Comment on above: Performed By: #### U A #### [facility] [address] [place] [address] Dr. Mason Astudillo MONO # 0.4 103/ul Normal 0.3-0.8 [facility] Comment on above: Performed By: #### U A #### [facility] [address] [place] [address] Dr. Mason Astudillo Monocytes/100 WBC (Bld) 11.8 % Normal 1.7-12.0 [facility] Comment on above: Performed By: #### U A #### [facility] [address] [place] [address] Dr. Mason Astudillo NEUT # 2.4 103/ul Normal 1.4-6.5 [facility] Comment on above: Performed By: #### U A #### [facility] [address] [place], [place] [id number] Dr. Mason Astudillo Neutrophils/100 WBC (Bld) 65.4 % Normal 43.0-75.0 [facility] Comment on above: Performed By: #### U A #### [facility] [address] [place] [address] Dr. Mason Astudillo Platelet mean volume (Bld) [Entitic vol] 10.7 fL Normal 9.5-13.5 [facility] Comment on above: Performed By: #### U A #### [facility] [address] [place] [address] Dr. Mason Astudillo PLT 103 103/ul Critically low 150-450 [facility] Comment on above: Performed By: #### U A #### [facility] [address] [place] [address] Dr. Mason Astudillo RBC 2.60 106/ul Critically low 4.70-6.10 [facility] Comment on above: Performed By: #### U A #### [facility] [address] [place] [address] Dr. Mason Astudillo WBC 3.7 103/ul Critically low 4.0-11.0 [facility] Comment on above: Performed By: #### U A #### [facility] [address] [place] [address] Dr. Mason Astudillo IRON AND TIBCon 02-03-2022 % SATURATION 46.9 % Normal [facility] Comment on above: Performed By: #### U A #### [facility] [address] [place] [address] Dr. Mason Astudillo Iron [Mass/Vol] 150.0 ug/dL Normal 65.0-175.0 [facility] Comment on above: Performed By: #### U A #### [facility] [address] [place] [address] Dr. Mason Astudillo TIBC DIRECT 320.0 ug/dL Normal 250.0-450.0 [facility] Comment on above: Performed By: #### U A #### [facility] [address] [place] [address] Dr. Mason Astudillo POINT OF CARE GLUCOSEon 07-3 1-2022 Glucose [Mass/Vol] 201 mg/dL Critically high 74-106 [facility] Comment on above: Performed By: #### U A #### [facility] [address] [place] [address] Dr. Mason Astudillo Glucose [Mass/Vol] 152 mg/dL Critically high 74-106 [facility] Comment on above: Performed By: #### P OCGLUC #### [facility] [address] [place] [address] Dr. Mason Astudillo Glucose [Mass/Vol] 242 mg/dL Critically high -106 [facility] Comment on above: Performed By: #### A 1C #### [facility] [address] [place] [address] Dr. Mason Astudillo PROF CHEM 8 (BAS METB)on Anion gap [Moles/Vol] 11.4 mmol/L Normal [facility] Comment on above: Performed By: #### B MP #### [facility] [address] [place] [address] Dr. Mason Astudillo Calcium [Mass/Vol] 7.5 mg/dL Critically low 8.5-10.1 [facility] Comment on above: Performed By: #### B MP #### [facility] [address] [place] [address] Dr. Mason Astudillo Chloride [Moles/Vol] 106 mmol/L Normal 98-107 [facility] Comment on above: Performed By: #### B MP #### [facility] [address] [place] [address] Dr. Mason Astudillo CO2 [Moles/Vol] 26.8 mmol/L Normal 21.0-32.0 [facility] Comment on above: Performed By: #### B MP #### [facility] [address] [place] [address] Dr. Mason Astudillo Creatinine [Mass/Vol] 1.26 mg/dL Normal 0.70-1.30 [facility] Comment on above: Performed By: #### B MP #### [facility] [address] [place] [address] Dr. Mason Astudillo EGFR-AF ANGOLAN >60 Normal >=60 [facility] Comment on above: Performed By: #### B MP #### [facility] [address] [address] [address] Mason Astudillo EGFR-NON AF ANGOLAN 54 mL/min/1.73m2 Critically low >=60 [facility] Comment on above: Performed By: #### B MP #### [facility] [address] [address] [address] Mason Astudillo Glucose [Mass/Vol] 160 mg/dL Critically high 74-106 [facility] Comment on above: Performed By: #### B MP #### [facility] [address] [address] [address] Mason Astudillo Potassium [Moles/Vol] 3.2 mmol/L Critically low 3.5-5.1 [facility] Comment on above: Performed By: #### B MP #### [facility] [address] [address] [address] Mason Astudillo Sodium [Moles/Vol] 141 mmol/L Normal 136-145 [facility] Comment on above: Performed By: #### B MP #### [facility] [address] [address] [address] Mason Astudillo Urea nitrogen [Mass/Vol] 30.0 mg/dL Critically high 7.0-18.0 [facility] Comment on above: Performed By: #### B MP #### [facility] [address] [address] [address] Mason Astudillo Urea nitrogen/Creatinine [Mass ratio] 23.8 mg/mg Normal [facility] Comment on above: Performed By: #### B MP #### [facility] [address] [address] [address] Mason Astudillo TYPE AND SCREENon 02-03-2022 TYPE AND SCREEN Negative Normal [facility] Comment on above: Performed By: #### T NS #### [facility] [address] [address] [address] Mason Astudillo BNPon 02-02-2022 Natriuretic peptide B (Bld) [Mass/Vol] 154.0 pg/mL Normal <=1,800.0 [facility] Comment on above: Performed By: #### P SAD #### [facility] [address] [place] [address] Dr. Mason Astudillo CARDIAC ANJELICA ADMITon 022 CK [Catalytic activity/Vol] 256 U/L Normal 39-308 [facility] Comment on above: Performed By: #### P OCGLUC #### [facility] [address] [place] [address] Dr. Mason Astudillo CK.MB [Mass/Vol] 3.30 ng/mL Normal <=3.60 [facility] Comment on above: Performed By: #### P OCGLUC #### [facility] [address] [place] [address] Dr. Mason Astudillo HSTROP 19.1 pg/mL Normal 4.0-76.1 [facility] Comment on above: Result Comment: CUT- OFF POINTS HAVE BEEN ESTABLISHED BASED ON THE FOURTH UNIVERSAL DEFINITIONS OF MYOCARDIAL INFARCTION. THE UPPER REFERENCE LIMIT (URL) OF TROPONIN, DEFINED THE 99TH PERCENTILE OF cTnI DISTRIBUTION IN A REFERENCE POPULATION, HAS BEEN CONFIRMED THE DECISION THRESHOLD FOR HI DIAGNOSIS. Performed By: #### P OCGLUC #### [facility] [address] [place] [address] Dr. Mason Astudillo ABDELRAHMAN 304 ng/mL Critically high 16-96 [facility] Comment on above: Performed By: #### P OCGLUC #### [facility] [address] [place] [address] Dr. Mason Astudillo CBC AUTO DIFFon 02-02-2022 BASO # 0.0 103/ul Normal 0.0-0.1 [facility] Comment on above: Performed By: #### C BC #### [facility] [address] [place] [address] Dr. Mason Astudillo Basophils/100 WBC (Bld) 0.5 % Normal 0.2-2.0 [facility] Comment on above: Performed By: #### C BC #### [facility] [address] [place] [address] Dr. Mason Astudillo EO # 0.2 103/ul Normal 0.0-0.7 [facility] Comment on above: Performed By: #### C BC #### [facility] [address] [place] [address] Dr. Mason Astudillo Eosinophils/100 WBC (Bld) 2.4 % Normal 0.9-7.0 [facility] Comment on above: Performed By: #### C BC #### [facility] [address] [place] [address] Dr. Mason Astudillo Erythrocyte distribution width (RBC) [Ratio] 15.9 % Critically high 11.0-15.0 [facility] Comment on above: Performed By: #### C BC #### [facility] [address] [place] [address] Dr. Mason Astudillo Hematocrit (Bld) [Volume fraction] 27.9 % Critically low 42.0-54.0 [facility] Comment on above: Performed By: #### C BC #### [facility] [address] [place] [address] Dr. Mason Astudillo Hemoglobin (Bld) [Mass/Vol] 8.7 g/dL Critically low 14.0-18.0 [facility] Comment on above: Performed By: #### C BC #### [facility] [address] [place] [address] Dr. Mason Astudillo IG # 0.04 10e3/ul Critically high 0.00-0.03 [facility] Comment on above: Performed By: #### C BC #### [facility] [address] [place] [address] Dr. Mason Astudillo IG % 0.6 % Critically high 0.0-0.5 [facility] Comment on above: Performed By: #### C BC #### [facility] [address] [place] [address] Dr. Mason Astudillo LYMPH # 1.3 103/ul Normal 1.2-3.8 [facility] Comment on above: Performed By: #### C BC #### [facility] [address] [place] [address] Dr. Mason Astudillo Lymphocytes/100 WBC (Bld) 20.1 % Critically low 20.5-60.0 [facility] Comment on above: Performed By: #### C BC #### [facility] [address] [place] [address] Dr. Mason Astudillo MANUAL DIFF REQ NO Normal [facility] Comment on above: Performed By: #### C BC #### [facility] [address] [place] [address] Dr. Mason Astudillo MCH (RBC) [Entitic mass] 26.1 pg Normal 25.9-34.0 [facility] Comment on above: Performed By: #### C BC #### [facility] [address] [place] [address] Dr. Mason Astudillo MCHC (RBC) [Mass/Vol] 31.2 g/dL Normal 29.9-35.2 [facility] Comment on above: Performed By: #### C BC #### [facility] [address] [place] [address] Dr. Mason Astudillo MCV (RBC) [Entitic vol] 83.8 fL Normal 80.0-94.0 [facility] Comment on above: Performed By: #### C BC #### [facility] [address] [place] [address] Dr. Mason Astudillo MONO # 0.7 103/ul Normal 0.3-0.8 [facility] Comment on above: Performed By: #### C BC #### [facility] [address] [place] [address] Dr. Mason Astudillo Monocytes/100 WBC (Bld) 11.1 % Normal 1.7-12.0 [facility] Comment on above: Performed By: #### C BC #### [facility] [address] [place] [address] Dr. Mason Astudillo NEUT # 4.1 103/ul Normal 1.4-6.5 [facility] Comment on above: Performed By: #### C BC #### [facility] [address] [place] [address] Dr. Mason Astudillo Neutrophils/100 WBC (Bld) 65.3 % Normal 43.0-75.0 [facility] Comment on above: Performed By: #### C BC #### [facility] [address] [address] [address] Mason Astudillo Platelet mean volume (Bld) [Entitic vol] 10.3 fL Normal 9.5-13.5 [facility] Comment on above: Performed By: #### C BC #### [facility] [address] [place] [address] Dr. Mason Astudillo PLT 145 103/ul Critically low 150-450 [facility] Comment on above: Performed By: #### C BC #### [facility] [address] [address] [address] Mason Astudillo RBC 3.33 106/ul Critically low 4.70-6.10 [facility] Comment on above: Performed By: #### C BC #### [facility] [address] [place] [address] Dr. Mason Astudillo WBC 6.2 103/ul Normal 4.0-11.0 [facility] Comment on above: Performed By: #### C BC #### [facility] [address] [address] [address] Mason Astudillo Covid-19 PCR ([facility])on 01-06 SARS-CoV-2 (COVID-19) RNA GARCÍA+probe Ql (Unsp spec) Not detected Normal NOT DETECTED [facility] Comment on above: Result Comment: When [...] for this test is supported by the Supervisor [place] Department of Health and Human Service's declaration that [...] used). Performed By: #### A 1C #### [facility] [address] [place] [address] Dr. Mason Astudillo FREE T3on 02-02-2022 FREE T3 2.16 pg/mlL Critically low 2.18-3.98 [facility] Comment on above: Performed By: #### P SAD #### [facility] [address] [place] [address] Dr. Mason Astudillo FREE T4on 02-02-2022 Free T4 [Mass/Vol] 1.09 ng/dL Normal 0.76-1.46 [facility] Comment on above: Performed By: #### F T4 #### [facility] [address] [place] [address] Dr. Mason Astudillo GLYCOHEMOGLOBIN A1Con 2021 ADA RECOMMENDATION SEE BELOW Normal [facility] Comment on above: Result Comment: ADA RECOMMENDED LIMIT 4.0 - 6.0 ADA THERAPEUTIC TARGET < 7.0 ACTION SUGGESTED > 7.0 Performed By: #### A 1C #### [facility] [address] [place] [address] Dr. Mason Astudillo Glucose [Mass/Vol] 160 mg/dL Normal [facility] Comment on above: Performed By: #### A 1C #### [facility] [address] [place] [address] Dr. Mason Astudillo HbA1c (Bld) [Mass fraction] 7.2 % Critically high 4.5-6.2 [facility] Comment on above: Performed By: #### A 1C #### [facility] [address] [place] [address] Dr. Mason Astudillo MAGNESIUMon 02-02-2022 Magnesium [Mass/Vol] 2.1 mg/dL Normal 1.8-2.4 [facility] Comment on above: Performed By: #### P SAD #### [facility] [address] [place] [address] Dr. Mason Astudillo POINT OF CARE GLUCOSEon 07-3 0-2022 Glucose [Mass/Vol] 226 mg/dL Critically high 74-106 [facility] Comment on above: Performed By: #### C BC #### [facility] [address] [place] [address] Dr. Mason Astudillo Glucose [Mass/Vol] 249 mg/dL Critically high 74-106 [facility] Comment on above: Performed By: #### C BC #### [facility] [address] [place] [address] Dr. Mason Astudillo Glucose [Mass/Vol] 195 mg/dL Critically high 74-106 [facility] Comment on above: Performed By: #### P SAD #### [facility] [address] [place] [address] Dr. Mason Astudillo PROF CHEM 8 (BAS METB)on Anion gap [Moles/Vol] 12.6 mmol/L Normal [facility] Comment on above: Performed By: #### P OCGLUC #### [facility] [address] [place] [address] Dr. Mason Astudillo Calcium [Mass/Vol] 8.1 mg/dL Critically low 8.5-10.1 [facility] Comment on above: Performed By: #### P OCGLUC #### [facility] [address] [place] [address] Dr. Mason Astudillo Chloride [Moles/Vol] 101 mmol/L Normal 98-107 [facility] Comment on above: Performed By: #### P OCGLUC #### [facility] [address] [place] [address] Dr. Mason Astudillo CO2 [Moles/Vol] 29.4 mmol/L Normal 21.0-32.0 [facility] Comment on above: Performed By: #### P OCGLUC #### [facility] [address] [place] [address] Dr. Mason Astudillo Creatinine [Mass/Vol] 1.68 mg/dL Critically high 0.70-1.30 [facility] Comment on above: Performed By: #### P OCGLUC #### [facility] [address] [place] [address] Dr. Mason Astudillo EGFR-AF ANGOLAN 47 mL/min/1.73m2 Critically low >=60 [facility] Comment on above: Result Comment: Prev iously reported as: (blank) On 02/02/2022 06:30 By [facility] Performed By: #### P OCGLUC #### [facility] [address] [place] [address] Dr. Mason Astudillo EGFR-NON AF ANGOLAN 39 mL/min/1.73m2 Critically low >=60 [facility] Comment on above: Result Comment: Prev iously reported as: (blank) On 02/02/2022 06:30 By [facility] Performed By: #### P OCGLUC #### [facility] [address] [place] [address] Dr. Mason Astudillo Glucose [Mass/Vol] 264 mg/dL Critically high 74-106 [facility] Comment on above: Performed By: #### P OCGLUC #### [facility] [address] [place] [address] Dr. Mason Astudillo Potassium [Moles/Vol] 3.0 mmol/L Critically low 3.5-5.1 [facility] Comment on above: Performed By: #### P OCGLUC #### [facility] [address] [place] [address] Dr. Mason Astudillo Sodium [Moles/Vol] 140 mmol/L Normal 136-145 [facility] Comment on above: Performed By: #### P OCGLUC #### [facility] [address] [place] [address] Dr. Mason Astudillo Urea nitrogen [Mass/Vol] 45.0 mg/dL Critically high 7.0-18.0 [facility] Comment on above: Performed By: #### P OCGLUC #### [facility] [address] [place] [address] Dr. Mason Astudillo Urea nitrogen/Creatinine [Mass ratio] 26.8 mg/mg Normal [facility] Comment on above: Performed By: #### P OCGLUC #### [facility] [address] [place] [address] Dr. Mason Astudillo TROPONIN, HIGH SENSITIVITYon 02-02-2022 HSTROP 81.7 pg/mL Critically high 4.0-76.1 [facility] Comment on above: Result Comment: CUT- OFF POINTS HAVE BEEN ESTABLISHED BASED ON THE FOURTH UNIVERSAL DEFINITIONS OF MYOCARDIAL INFARCTION. THE UPPER REFERENCE LIMIT (URL) OF TROPONIN, DEFINED THE 99TH PERCENTILE OF cTnI DISTRIBUTION IN A REFERENCE POPULATION, HAS BEEN CONFIRMED THE DECISION THRESHOLD FOR HI DIAGNOSIS. repeated Performed By: #### B MP #### [facility] [address] [place] [address] Dr. Mason Astudillo TSHon 02-02-2022 TSH 1.200 uIU/mL Normal 0.358-3.740 [facility] Comment on above: Performed By: #### C BC #### [facility] [address] [place] [address] Dr. Mason Astudillo XR CHEST 1 Von [...] CARMINA LOVE Date: 2022-02-02 06:45 Normal [facility] RENAL FUNCTION PANELon 01-11 Albumin [Mass/Vol] 3.7 g/dL Normal 3.4-5.0 [facility] Comment on above: Performed By: #### P OCGLUC #### [facility] [address] [place] [address] Dr. Mason Astudillo Calcium [Mass/Vol] 8.6 mg/dL Normal 8.5-10.1 [facility] Comment on above: Performed By: #### P OCGLUC #### [facility] [address] [place] [address] Dr. Mason Astudillo Chloride [Moles/Vol] 104 mmol/L Normal 98-107 [facility] Comment on above: Performed By: #### P OCGLUC #### [facility] [address] [place] [address] Dr. Mason Astudillo CO2 [Moles/Vol] 28.0 mmol/L Normal 21.0-32.0 [facility] Comment on above: Performed By: #### P OCGLUC #### [facility] [address] [address] [address] Mason Astudillo Creatinine [Mass/Vol] 1.25 mg/dL Normal 0.70-1.30 [facility] Comment on above: Performed By: #### P OCGLUC #### [facility] [address] [address] [address] Mason Astudillo EGFR-AF ANGOLAN >60 Normal >=60 [facility] Comment on above: Performed By: #### P OCGLUC #### [facility] [address] [address] [address] Mason Astudillo EGFR-NON AF ANGOLAN 55 mL/min/1.73m2 Critically low >=60 [facility] Comment on above: Performed By: #### P OCGLUC #### [facility] [address] [address] [address] Mason Astudillo Glucose [Mass/Vol] 143 mg/dL Critically high 74-106 [facility] Comment on above: Performed By: #### P OCGLUC #### [facility] [address] [place] [address] Dr. Mason Astudillo Phosphate [Mass/Vol] 2.9 mg/dL Normal 2.6-4.7 [facility] [facility] Comment on above: Performed By: #### P OCGLUC #### [facility] [address] [address] [address] Mason Astudillo Potassium [Moles/Vol] 3.6 mmol/L Normal 3.5-5.1 [facility] Comment on above: Performed By: #### P OCGLUC #### [facility] [address] [place] [address] Dr. Mason Astudillo Sodium [Moles/Vol] 142 mmol/L Normal 136-145 [facility] Comment on above: Performed By: #### P OCGLUC #### [facility] [address] [place] [address] Dr. Mason Astudillo Urea nitrogen [Mass/Vol] 19.0 mg/dL Critically high 7.0-18.0 [facility] Comment on above: Performed By: #### P OCGLUC #### [facility] [address] [place] [address] Dr. Mason Astudillo UA RANDOMon 01-11-2022 Bilirubin Ql (U) Negative Normal NEGATIVE [facility] Comment on above: Performed By: #### U A #### [facility] [address] [place] [address] Dr. Mason Astudillo Clarity (U) CLEAR Normal CLEAR [facility] Comment on above: Performed By: #### U A #### [facility] [address] [place] [address] Dr. Mason Astudillo Color (U) LT. YELLOW Normal YELLOW [facility] Comment on above: Performed By: #### U A #### [facility] [address] [place] [address] Dr. Msaon Astudillo Glucose Ql (U) >1000 Abnormal NEGATIVE [facility] Comment on above: Performed By: #### U A #### [facility] [address] [place] [address] Dr. Mason Astudillo Hemoglobin Ql (U) Negative Normal NEGATIVE [facility] Comment on above: Performed By: #### U A #### [facility] [address] [place] [address] Dr. Mason Astudillo Ketones Ql (U) Negative Normal NEGATIVE [facility] Comment on above: Performed By: #### U A #### [facility] [address] [place] [address] Dr. Mason Astudillo LEUKOCYTES Negative Normal NEGATIVE [facility] Comment on above: Performed By: #### U A #### [facility] [address] [place] [address] Dr. Mason Astudillo Nitrite Ql (U) Negative Normal NEGATIVE [facility] Comment on above: Performed By: #### U A #### [facility] [address] [place] [address] Dr. Mason Astudillo pH (U) 6.5 [pH] Normal 5-9 [facility] Comment on above: Performed By: #### U A #### [facility] [address] [place] [address] Dr. Mason Astudillo SPEC GRAVITY 1.010 Normal 1.005-<=1.0 25 [facility] Comment on above: Performed By: #### U A #### [facility] [address] [place] [address] Dr. Mason Astudillo UA PROTEIN Negative Normal NEGATIVE/ TRACE [facility] Comment on above: Performed By: #### U A #### [facility] [address] [place] [address] Dr. Mason Astudillo Urobilinogen Qn (U) 0.2 {Lewis'U}/dL Normal 0.2 - 1. 0 [facility] Comment on above: Performed By: #### U A #### [facility] [address] [place] [address] Dr. Mason Astudillo URINE T PROTEIN CREAT RATIOo n 01-11-2022 Protein (U) [Mass/Vol] 23.7 mg/dL Critically high <=12.0 [facility] Comment on above: Performed By: #### A 1C #### [facility] [address] [place] [address] Dr. Mason Astudillo UR PROT CREAT RAT 0.20 Normal [facility] Comment on above: Performed By: #### A 1C #### [facility] [address] [place] [address] Dr. Mason Astudillo URINE CREAT 115.99 mg/dL Normal 20.00-300.0 0 [facility] Comment on above: Performed By: #### A 1C #### [facility] [address] [place] [address] Dr. Mason Astudillo US KIDNEYSon 01-09-2022 US KIDNEYS EXAMINATION: US KIDN EYS HISTORY: Hypertensive heart disease without congestive heart [...] BRISA SALAS Date: 2022-01-09 17:44 Normal [facility] FOLATE ([facility])on 2 Folate 11.0 ng/mL Normal >3.0 [facility] Comment on above: Result Comment: A [facility] folate concentration of less than 3.1 ng/mL is considered to represent clinical deficiency. Performed By: #### P SAD #### [facility] [address] [place] [address] Dr. Mason Astudillo TRANSFERRINon 12-20-2021 Transferrin [Mass/Vol] 316 mg/dL Critically high 149-313 [facility] Comment on above: Performed By: #### A 1C #### [facility] [address] [place] [address] Dr. Mason Astudillo CBC AUTO DIFFon 12-18-2021 BASO # 0.0 103/ul Normal 0.0-0.1 [facility] Comment on above: Performed By: #### U A #### [facility] [address] [place] [address] Dr. Mason Astudillo Basophils/100 WBC (Bld) 0.3 % Normal 0.2-2.0 [facility] Comment on above: Performed By: #### U A #### [facility] [address] [place] [address] Dr. Mason Astudillo EO # 0.1 103/ul Normal 0.0-0.7 [facility] Comment on above: Performed By: #### U A #### [facility] [address] [place] [address] Dr. Mason Astudillo Eosinophils/100 WBC (Bld) 2.0 % Normal 0.9-7.0 [facility] Comment on above: Performed By: #### U A #### [facility] [address] [place] [address] Dr. Mason Astudillo Erythrocyte distribution width (RBC) [Ratio] 14.6 % Normal 11.0-15.0 [facility] Comment on above: Performed By: #### U A #### [facility] [address] [place] [address] Dr. Mason Astudillo Hematocrit (Bld) [Volume fraction] 35.6 % Critically low 42.0-54.0 [facility] Comment on above: Performed By: #### U A #### [facility] [address] [place] [address] Dr. Mason Astudillo Hemoglobin (Bld) [Mass/Vol] 10.7 g/dL Critically low 14.0-18.0 [facility] Comment on above: Performed By: #### U A #### [facility] [address] [place] [address] Dr. Mason Astudillo IG # 0.03 10e3/ul Normal 0.00-0.03 [facility] Comment on above: Performed By: #### U A #### [facility] [address] [place] [address] Dr. Mason Astudillo IG % 0.5 % Normal 0.0-0.5 [facility] Comment on above: Performed By: #### U A #### [facility] [address] [place] [address] Dr. Mason Astudillo LYMPH # 1.0 103/ul Critically low 1.2-3.8 [facility] Comment on above: Performed By: #### U A #### [facility] [address] [place] [address] Dr. Mason Astudillo Lymphocytes/100 WBC (Bld) 15.5 % Critically low 20.5-60.0 [facility] Comment on above: Performed By: #### U A #### [facility] [address] [place] [address] Dr. Mason Astudillo MANUAL DIFF REQ NO Normal [facility] Comment on above: Performed By: #### U A #### [facility] [address] [place] [address] Dr. Mason Astudillo MCH (RBC) [Entitic mass] 27.4 pg Normal 25.9-34.0 [facility] Comment on above: Performed By: #### U A #### [facility] [address] [place] [address] Dr. Mason Astudillo MCHC (RBC) [Mass/Vol] 30.1 g/dL Normal 29.9-35.2 [facility] Comment on above: Performed By: #### U A #### [facility] [address] [place] [address] Dr. Mason Astudillo MCV (RBC) [Entitic vol] 91.0 fL Normal 80.0-94.0 [facility] Comment on above: Performed By: #### U A #### [facility] [address] [place] [address] Dr. Mason Astudillo MONO # 0.5 103/ul Normal 0.3-0.8 [facility] Comment on above: Performed By: #### U A #### [facility] [address] [place] [address] Dr. Mason Astudillo Monocytes/100 WBC (Bld) 8.1 % Normal 1.7-12.0 [facility] Comment on above: Performed By: #### U A #### [facility] [address] [place] [address] Dr. Mason Astudillo NEUT # 4.5 103/ul Normal 1.4-6.5 [facility] Comment on above: Performed By: #### U A #### [facility] [address] [place] [address] Dr. Mason Astudillo Neutrophils/100 WBC (Bld) 73.6 % Normal 43.0-75.0 [facility] Comment on above: Performed By: #### U A #### [facility] [address] [address] [address] Mason Astudillo Platelet mean volume (Bld) [Entitic vol] 10.1 fL Normal 9.5-13.5 [facility] Comment on above: Performed By: #### U A #### [facility] [address] [place] [address] Dr. Mason Astudillo PLT 138 103/ul Critically low 150-450 [facility] Comment on above: Performed By: #### U A #### [facility] [address] [place] [address] Dr. Mason Astudillo RBC 3.91 106/ul Critically low 4.70-6.10 [facility] Comment on above: Performed By: #### U A #### [facility] [address] [place] [address] Dr. Mason Astudillo WBC 6.1 103/ul Normal 4.0-11.0 [facility] Comment on above: Performed By: #### U A #### [facility] [address] [place] [address] Dr. Mason Astudillo FERRITINon 12-18-2021 Ferritin [Mass/Vol] 16.0 ng/mL Critically low 26.0-388.0 [facility] Comment on above: Performed By: #### P OCGLUC #### [facility] [address] [place] [address] Dr. Mason Astudillo GLYCOHEMOGLOBIN A1Con 2021 ADA RECOMMENDATION SEE BELOW Normal [facility] Comment on above: Result Comment: ADA RECOMMENDED LIMIT 4.0 - 6.0 ADA THERAPEUTIC TARGET < 7.0 ACTION SUGGESTED > 7.0 Performed By: #### C BC #### [facility] [address] [place] [address] Dr. Mason Astudillo Glucose [Mass/Vol] 140 mg/dL Normal [facility] Comment on above: Performed By: #### C BC #### [facility] [address] [place] [address] Dr. Mason Astudillo HbA1c (Bld) [Mass fraction] 6.5 % Critically high 4.5-6.2 [facility] Comment on above: Performed By: #### C BC #### [facility] [address] [address] [address] Mason Astudillo IRON AND TIBCon 12-18-2021 % SATURATION 5.7 % Normal [facility] Comment on above: Performed By: #### P OCGLUC #### [facility] [address] [address] [address] Mason Astudillo Iron [Mass/Vol] 23.0 ug/dL Critically low 65.0-175.0 [facility] Comment on above: Performed By: #### P OCGLUC #### [facility] [address] [address] [address] Mason Astudillo TIBC DIRECT 413.0 ug/dL Normal 250.0-450.0 [facility] Comment on above: Performed By: #### P OCGLUC #### [facility] [address] [address] [address] Mason Astudillo PROF CHEM 8 (BAS METB)on Anion gap [Moles/Vol] 13.7 mmol/L Normal [facility] Comment on above: Performed By: #### P SAD #### [facility] [address] [address] [address] Mason Astudillo Calcium [Mass/Vol] 8.2 mg/dL Critically low 8.5-10.1 Th e [facility] Comment on above: Performed By: #### P SAD #### [facility] [address] [address] [address] Mason Astudillo Chloride [Moles/Vol] 105 mmol/L Normal 98-107 [facility] Comment on above: Performed By: #### P SAD #### [facility] [address] [address] [address] Mason Astudillo CO2 [Moles/Vol] 27.1 mmol/L Normal 21.0-32.0 [facility] Comment on above: Performed By: #### P SAD #### [facility] [address] [place] [address] Dr. Mason Astudillo Creatinine [Mass/Vol] 1.32 mg/dL Critically high 0.70-1.30 [facility] Comment on above: Performed By: #### P SAD #### [facility] [address] [address] [address] Mason Astudillo EGFR-AF ANGOLAN >60 Normal >=60 [facility] Comment on above: Performed By: #### P SAD #### [facility] [address] [address] [address] Mason Astudillo EGFR-NON AF ANGOLAN 52 mL/min/1.73m2 Critically low >=60 [facility] Comment on above: Performed By: #### P SAD #### [facility] [address] [address] [address] Mason Astudillo Glucose [Mass/Vol] 121 mg/dL Critically high 74-106 [facility] Comment on above: Performed By: #### P SAD #### [facility] [address] [address] [address] Mason Astudillo Potassium [Moles/Vol] 3.8 mmol/L Normal 3.5-5.1 [facility] Comment on above: Performed By: #### P SAD #### [facility] [address] [address] [address] Mason Astudillo Sodium [Moles/Vol] 142 mmol/L Normal 136-145 [facility] Comment on above: Performed By: #### P SAD #### [facility] [address] [address] [address] Mason Astudillo Urea nitrogen [Mass/Vol] 27.0 mg/dL Critically high 7.0-18.0 [facility] Comment on above: Performed By: #### P SAD #### [facility] [address] [address] [address] Mason Astudillo Urea nitrogen/Creatinine [Mass ratio] 20.5 mg/mg Normal [facility] Comment on above: Performed By: #### P SAD #### [facility] [address] [address] [address] Mason Astudillo VITAMIN B12on 12-18-2021 Cobalamin (Vitamin B12) [Mass/Vol] 423.0 pg/mL Normal 193.0-986.0 [facility] Comment on above: Performed By: #### P OCGLUC #### [facility] [address] [place] [address] Dr. Mason Astudillo CBC AUTO DIFFon 11-08-2021 BASO # 0.0 103/ul Normal 0.0-0.1 [facility] Comment on above: Performed By: #### U A #### [facility] [address] [place] [address] Dr. Mason Astudillo Basophils/100 WBC (Bld) 0.3 % Normal 0.2-2.0 [facility] Comment on above: Performed By: #### U A #### [facility] [address] [place] [address] Dr. Mason Astudillo EO # 0.2 103/ul Normal 0.0-0.7 [facility] Comment on above: Performed By: #### U A #### [facility] [address] [place] [address] Dr. Mason Astudillo Eosinophils/100 WBC (Bld) 2.6 % Normal 0.9-7.0 [facility] Comment on above: Performed By: #### U A #### [facility] [address] [place] [address] Dr. Mason Astudillo Erythrocyte distribution width (RBC) [Ratio] 15.1 % Critically high 11.0-15.0 [facility] Comment on above: Performed By: #### U A #### [facility] [address] [place] [address] Dr. Mason Astudillo Hematocrit (Bld) [Volume fraction] 36.2 % Critically low 42.0-54.0 [facility] Comment on above: Performed By: #### U A #### [facility] [address] [place] [address] Dr. Mason Astudillo Hemoglobin (Bld) [Mass/Vol] 11.7 g/dL Critically low 14.0-18.0 [facility] Comment on above: Performed By: #### U A #### [facility] [address] [place] [address] Dr. Mason Astudillo IG # 0.04 10e3/ul Critically high 0.00-0.03 [facility] Comment on above: Performed By: #### U A #### [facility] [address] [place] [address] Dr. Mason Astudillo IG % 0.7 % Critically high 0.0-0.5 [facility] Comment on above: Performed By: #### U A #### [facility] [address] [place] [address] Dr. Mason Astudillo LYMPH # 0.9 103/ul Critically low 1.2-3.8 [facility] Comment on above: Performed By: #### U A #### [facility] [address] [place] [address] Dr. Mason Astudillo Lymphocytes/100 WBC (Bld) 14.4 % Critically low 20.5-60.0 [facility] Comment on above: Performed By: #### U A #### [facility] [address] [place] [address] Dr. Mason Astudillo MANUAL DIFF REQ NO Normal [facility] Comment on above: Performed By: #### U A #### [facility] [address] [place] [address] Dr. Mason Astudillo MCH (RBC) [Entitic mass] 29.8 pg Normal 25.9-34.0 [facility] Comment on above: Performed By: #### U A #### [facility] [address] [place] [address] Dr. Mason Astudillo MCHC (RBC) [Mass/Vol] 32.3 g/dL Normal 29.9-35.2 [facility] Comment on above: Performed By: #### U A #### [facility] [address] [place] [address] Dr. Mason Astudillo MCV (RBC) [Entitic vol] 92.3 fL Normal 80.0-94.0 [facility] Comment on above: Performed By: #### U A #### [facility] [address] [place] [address] Dr. Mason Astudillo MONO # 0.5 103/ul Normal 0.3-0.8 [facility] Comment on above: Performed By: #### U A #### [facility] [address] [address] [address] Mason Astudillo Monocytes/100 WBC (Bld) 7.5 % Normal 1.7-12.0 [facility] Comment on above: Performed By: #### U A #### [facility] [address] [address] [address] Mason Astudillo NEUT # 4.5 103/ul Normal 1.4-6.5 [facility] Comment on above: Performed By: #### U A #### [facility] [address] [place] [address] Dr. Mason Astudillo Neutrophils/100 WBC (Bld) 74.5 % Normal 43.0-75.0 [facility] Comment on above: Performed By: #### U A #### [facility] [address] [place] [address] Dr. Mason Astudillo Platelet mean volume (Bld) [Entitic vol] 10.1 fL Normal 9.5-13.5 [facility] Comment on above: Performed By: #### U A #### [facility] [address] [place] [address] Dr. Mason Astudillo PLT 132 103/ul Critically low 150-450 [facility] Comment on above: Performed By: #### U A #### [facility] [address] [place] [address] Dr. Mason Astudillo RBC 3.92 106/ul Critically low 4.70-6.10 [facility] Comment on above: Performed By: #### U A #### [facility] [address] [place] [address] Dr. Mason Astudillo WBC 6.0 103/ul Normal 4.0-11.0 [facility] Comment on above: Performed By: #### U A #### [facility] [address] [place] [address] Dr. Mason Astudillo PROF CHEM 8 (BAS METB)on Anion gap [Moles/Vol] 8.9 mmol/L Normal [facility] Comment on above: Performed By: #### B MP #### [facility] [address] [address] [address] Mason Astudillo Calcium [Mass/Vol] 7.9 mg/dL Critically low 8.5-10.1 Th e [facility] Comment on above: Performed By: #### B MP #### [facility] [address] [address] [address] Mason Astudillo Chloride [Moles/Vol] 101 mmol/L Normal 98-107 [facility] Comment on above: Performed By: #### B MP #### [facility] [address] [address] [address] Mason Astudillo CO2 [Moles/Vol] 28.3 mmol/L Normal 21.0-32.0 [facility] Comment on above: Performed By: #### B MP #### [facility] [address] [address] [address] Mason Astudillo Creatinine [Mass/Vol] 1.22 mg/dL Normal 0.70-1.30 [facility] Comment on above: Performed By: #### B MP #### [facility] [address] [address] [address] Mason Astudillo EGFR-AF ANGOLAN >60 Normal >=60 [facility] Comment on above: Performed By: #### B MP #### [facility] [address] [address] [address] Mason Astudillo EGFR-NON AF ANGOLAN 57 mL/min/1.73m2 Critically low >=60 [facility] Comment on above: Performed By: #### B MP #### [facility] [address] [address] [address] Mason Astudillo Glucose [Mass/Vol] 167 mg/dL Critically high 74-106 [facility] Comment on above: Performed By: #### B MP #### [facility] [address] [address] [address] Mason Astudillo Potassium [Moles/Vol] 3.2 mmol/L Critically low 3.5-5.1 [facility] Comment on above: Performed By: #### B MP #### [facility] [address] [place], [place] [address] Dr. Mason Astudillo Sodium [Moles/Vol] 135 mmol/L Critically low 136-145 [facility] Comment on above: Performed By: #### B MP #### [facility] [address] [place], [place] [address] Dr. Mason Astudillo Urea nitrogen [Mass/Vol] 23.0 mg/dL Critically high 7.0-18.0 [facility] Comment on above: Performed By: #### B MP #### [facility] [address] [place], [place] [address] Dr. Mason Astudillo Urea nitrogen/Creatinine [Mass ratio] 18.9 mg/mg Normal [facility] Comment on above: Performed By: #### B MP #### [facility] [address] [place], [place] [address] Dr. Mason Astudillo XR CHEST 2 Von [...] by: BRITTANIE CASILLAS Date: 2021-11-08 14:01 Normal [facility] Vital Signs Date Time Vital Sign Value Performing Clinician Facility 12-23-2022 13:13-0400 Blood Pressure Location Mekhi VERGARA [facility] 12-23-2022 13:13-0400 Diastolic blood pressure 68 mm[Hg] Mekhi VERGARA [facility] 12-23-2022 13:13-0400 Heart rate 70 /min Mekhi VERG[facility] 12-23-2022 13:13-0400 Systolic blood pressure 120 mm[Hg] Mekhi VERGARA [facility] 05-10-2022 10:43-0400 Body height 177.8 cm Pacc 6 Work Phone: [facility] 05-10-2022 10:43-0400 Body temperature 97.81 [degF] Pacc 6 Work Phone: [facility] 05-10-2022 10:43-0400 Body weight 86.18 kg Pacc 6 Work Phone: [facility] 05-10-2022 10:43-0400 Diastolic blood pressure 75 mm[Hg] Pacc 6 Work Phone: [facility] 05-10-2022 10:43-0400 Heart rate 86 /min Pacc 6 Work Phone: [facility] 05-10-2022 10:43-0400 SaO2% (BldA) [Mass fraction] 97 % Pacc 6 Work Phone: [facility] 05-10-2022 10:43-0400 Systolic blood pressure 124 mm[Hg] Pacc 6 Work Phone: [facility] 04-22-2022 15:42-0400 Blood Pressure Location Mekhi VERGARA [facility] 04-22-2022 15:42-0400 Diastolic blood pressure 64 mm[Hg] Mekhi VERGARA [facility] 04-22-2022 15:42-0400 Heart rate 76 /min Mekhi VERGARA [facility] 04-22-2022 15:42-0400 Respiratory rate 60 /min Mekhi VERGARA [facility] 04-22-2022 15:42-0400 Systolic blood pressure 117 mm[Hg] Mekhi VERGARA [facility] 04-17-2022 12:55-0400 Body height 177.8 cm Tristin Wilcox MD, PhD Work Phone: [facility] 04-17-2022 12:55-0400 Body temperature 98.4 [degF] Tristin Wilcox MD, PhD Work Phone: [facility] 04-17-2022 12:55-0400 Body weight 86.18 kg Tristin Wilcox MD, PhD Work Phone: [facility] 04-17-2022 12:55-0400 Diastolic blood pressure 74 mm[Hg] Tristin Wilcox MD, PhD Work Phone: [facility] 04-17-2022 12:55-0400 Heart rate 70 /min Tristin Wilcox MD, PhD Work Phone: [facility] 04-17-2022 12:55-0400 Respiratory rate 16 /min Tristin Wilcox MD, PhD Work Phone: [facility] 04-17-2022 12:55-0400 SaO2% (BldA) [Mass fraction] 99 % Tristin Wilcox MD, PhD Work Phone: [facility] 04-17-2022 12:55-0400 Systolic blood pressure 127 mm[Hg] Tristin Wilcox MD, PhD Work Phone: [facility] 10-16-2021 14:39-0400 Blood Pressure Location 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 [facility] [place] 10-16-2021 14:39-0400 Diastolic blood pressure 76 mm[Hg] 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 [facility] [place] 10-16-2021 14:39-0400 Heart rate 68 /min 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 [facility] [place] 10-16-2021 14:39-0400 Respiratory rate 16 /min 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 [facility] [place] 10-16-2021 14:39-0400 Systolic blood pressure 106 mm[Hg] 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 [facility] [place] Encounters Encounter Date Encounter Type Care Provider Facility Start: 08-28-2023 End: 08-28-2023 ambulatory [facility] Start: 08-21-2023 Orders Only Shaikh Lexi WORKMAN Work Phone: [facility] Comment on above: 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; Chronic heart failure with preserved ejection fraction (CMS/HCC); Chronic bilateral low back pain with bilateral sciatica Start: 08-19-2023 End: 08-20-2023 ambulatory Mekhi VERGARA Facility:[facility] Start: 08-19-2023 End: 08-20-2023 ambulatory Mekhi VERGARA Facility:[facility] Start: 08-19-2023 End: 08-19-2023 Patient encounter procedure Mekhi VERGARA [facility] Start: 08-19-2023 End: 08-19-2023 Patient encounter procedure Mekhi VERGARA [facility] Start: 07-28-2023 End: 07-28-2023 ambulatory SHAIKH LEXI Not Available Start: 07-03-2023 End: 07-03-2023 ambulatory SHAIKH LEXI Not Available Start: 07-03-2023 Patient encounter procedure Shaikh Lexi WORKMAN Work Phone: [facility] Start: 06-20-2023 End: 06-21-2023 ambulatory SHAIKH LEXI Facility: [place] Start: 06-18-2023 End: 06-18-2023 ambulatory SHAIKH LEXI [...] 04-21-2023 End: 04-22-2023 ambulatory Mallorie Joy MD Facility: [place] Start: 03-31-2023 End: 04-01-2023 ambulatory Mallorie Joy MD Facility: [place] Start: 03-24-2023 End: 03-25-2023 ambulatory Mallorie Joy MD Facility: [place] Start: 03-07-2023 End: 03-07-2023 ambulatory [facility] Start: 02-03-2023 End: 02-04-2023 ambulatory Mallorie Joy MD Facility: [place] Start: 12-23-2022 End: 12-24-2022 ambulatory SHAIKH LEXI Facility: [place] Start: 12-23-2022 End: 12-23-2022 Patient encounter procedure Mekhi VERGARA [facility] [place] Start: 11-21-2022 ambulatory NARENDRANATH LAKSHMIPATHY . Facility: Start: 10-31-2022 ambulatory NARENDRANATH LAKSHMIPATHY . Facility:[facility] Start: 10-29-2022 End: 10-29-2022 ambulatory NARENDRANATH LAKSHMIPATHY . Facility: Start: 10-24-2022 End: 10-25-2022 ambulatory ROGELIO EDELMIRATREVINPATHY . Facility:[facility] Start: 10-18-2022 End: 10-18-2022 ambulatory [facility] Start: 10-11-2022 End: 10-12-2022 ambulatory [facility] Start: 09-11-2022 End: 09-11-2022 ambulatory [facility] Start: 08-06-2022 End: 08-06-2022 Patient encounter procedure Mekhi Althea VERGARA [facility] Start: 07-30-2022 End: 07-31-[address] PAULINE WINSTON . Facility: Start: 07-09-2022 End: 07-09-2022 ambulatory SHAIKH Milena ELLIOTT Facility: Start: 06-25-2022 End: 06-26-2022 ambulatory SHAIKH Milena ELLIOTT Facility: Start: 05-17-2022 End: 05-17-2022 ambulatory TRISTIN WILCOX Facility:[facility] Start: 05-16-2022 Telephone encounter Maria Luisa Garcia RN C olorectal Surgery Comment on above: Reiki Practitioner - O ther Start: 05-10-2022 End: 05-11-2022 ambulatory TRISTIN WILCOX Facility:[facility] Start: 05-10-2022 Encounter for other preprocedural examination TRISTIN WILCOX [facility] Start: 05-10-2022 End: 05-10-2022 ambulatory Pacc Main 6 Work Phone: Pre Anesthesia Comment on above: Pre-op evaluation (P rimary Dx); Type 2 diabetes mellitus without complication, without long-term current use of insulin (HCC); Radiculopathy, cervical region; Dementia in other diseases classified elsewhere, unspecified severity, without behavioral disturbance, psychotic disturbance, mood disturbance, and anxiety (HCC); Intracranial hemorrhage (HCC); Essential (primary) hypertension; Sleep apnea, unspecified type; Chronic obstructive pulmonary disease, unspecified COPD type (HCC); Arteriosclerosis of coronary artery; PAF (paroxysmal atrial fibrillation) (HCC); History of DVT (deep vein thrombosis); Gastroesophageal reflux disease with esophagitis, unspecified whether hemorrhage; Chronic kidney disease, stage 4 (severe) (HCC); Calculus of kidney; Hypothyroidism unspecified; Iron deficiency anemia due to chronic blood loss; History of prostate cancer; History of primary malignant neoplasm of urinary bladder; Gout, unspecified cause, unspecified chronicity, unspecified site Patient Education Start: 05-10-2022 End: 05-11-2022 ambulatory TRISTIN WILCOX Facility:[facility] Start: 05-10-2022 End: 05-10-2022 Admission to establishment Pacc Main 6 Work Phone: [facility] Start: 05-10-2022 End: 05-10-2022 Preprocedural examination done Pac Main 6 Work Phone: Pre Anesthesia Start: 05-09-2022 End: 05-10-2022 ambulatory SHAIKH Milena ELLIOTT Facility:[facility] Start: 05-01-2022 End: 05-01-2022 ambulatory FRANKY VERONICA Facility:[facility] Start: 04-25-2022 Telephone encounter Tristin Ruiz Colorectal Surgery Comment on above: Appointment Start: 04-24-2022 Telephone encounter Marika Crabtree Colorectal Surgery Comment on above: 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 Facility:[facility] Start: 02-02-2022 End: 02-06-2022 Evaluation and management of inpatient DE LA O H FAWWAD Facility:[facility] Start: 01-11-2022 End: 01-12-2022 ambulatory DE LA O H FAWWAD Facility:[facility] Start: 01-10-2022 End: 01-11-2022 ambulatory CALVIN MOREJON . Facility:[facility] Start: 01-09-2022 End: 01-10-2022 ambulatory DE LA O H FAWWAD Facility:[facility] Start: 12-18-2021 End: 12-19-2021 ambulatory DE LA O H FAWWAD Facility:[facility] Start: 12-13-2021 End: 12-13-2021 Patient encounter procedure 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 [facility] [place] Start: 11-29-2021 End: 11-30-2021 ambulatory CALVIN MOREJON . Facility:[facility] Start: 11-27-2021 End: 11-27-2021 Patient encounter procedure 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 General Surgery [facility] [place] Start: 11-21-2021 End: 11-22-2021 ambulatory DE LA O H FAWWAD Facility:[facility] Start: 11-17-2021 ambulatory Milena LEXI Facilit y:[facility] Start: 11-09-2021 Encounter for preprocedural cardiovascular examination DR YENNI STANLEY . [facility] Start: 11-09-2021 Encounter for preprocedural laboratory examination DR YENNI STANLEY . [facility] Start: 11-08-2021 End: 11-09-[address] NONE LISTED REQUEST Facility:[facility] Start: 11-08-2021 End: 11-09-2021 Encounter for preprocedural cardiovascular examination NONE LISTED REQUEST Facility:[facility] Start: 10-16-2021 End: 10-16-2021 Patient encounter procedure 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 General Surgery [facility] [place] Start: 10-09-2021 End: 10-09-2021 Off-Site Iraida James [facility] Start: 01-20-2017 End: 01-21-2017 Ambulatory DEFAULT PHYSICIAN Facility:[facility] Procedures Date Procedure Procedure Detail Performing Clinician Start: 08-05-2022 Cystoscopy Mekhi VERGARA Start: 05-10-2022 Antibody screen TRISTIN WILCOX Comment on above: Order Comment: Specimen Type: BLOOD SPEC IMENOrdering Facility: [facility] Address: [address] [place] [address] Performed By: #### T [id number] ####[facility] BLOOD BANKCLIA [id number] [address] [place] Start: 05-09-2022 PSA screening SHAIKH LEXI Comment on above: Performed By: #### A1C #### [facility] [address] [place] [address] Dr. Mason Astudillo Start: 04-18-2022 PSA screening SHAIKH LEXI Comment on above: Performed By: #### PSAD #### [facility] [address] [place] [address] Dr. Mason Astudillo Start: 04-17-2022 Sigmoidoscopy flx dx w/collj spec br/wa if pfrmd [facility] Provider Start: 02-03-2022 Transfusion of Nonautologous Red Blood Cells into Peripheral Vein, Percutaneous Approach SHAIKH LEXI Start: 11-21-2021 Repair of right inguinal hernia 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 Start: 09-21-2021 Colonoscopy Iraida James Start: 07-30-2021 Esophagogastroduodenoscopy Iraida wade Start: 06-14-2019 Cystoscopy Iraidamilena James Start: 08-11-2018 Cystoscopy Iraidamilena James Start: 01-29-2018 Cystoscopy Iraidamilena James Start: 07-08-2017 Cystoscopic removal of ureteric stent Iraida James Start: 06-14-2017 Ureteroscopy Iraida James Start: 04-21-2017 Cystoscopy Iraidamilena James Start: 01-06-2017 Cystoscopy Iraidamilena James Start: 10-21-2016 Cystoscopy Iraidamilena James Start: 07-18-2016 Transurethral resection of bladder neoplasm Iraidamilena James Start: 06-03-2016 Cystoscopy Iraidamilena James Start: 04-06-2003 Implantation of radioactive seed into prostate Iraidamilena James Start: 01-25-2003 Transrectal biopsy of prostate using ultrasound guidance Iraidamilena James Arthroplasty of knee Yenni LIZETH Comment on above: left Craniotomy and evacu ation of blood clot Yenni NILL Discectomy of spine Yenni NILL Extraction of cataract Justin sanchez NILL Comment on above: bilateral History of hernia repair Fabio NEALL History of surgical procedure on cervical spine Mekhi VERGARA Parathyroidectomy Yenni ALONZO Radiofrequency ablation Aba doyle NILL Comment on above: C3-C6 Tonsillectomy and adenoidectomy Yenni NEALL 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 ami VERGARA Plan of Treatment Date Care Activity Detail Author Start: 01-04-2025 Glaucoma screening Diabetes: R etinopathy Screening [facility] Start: 07-03-2024 Medicare Annual Well ness (AWV) Medicare Annual Wellness (AWV) [facility] Start: 10-02-2023 End: 10-02-2023 Patient encounter procedure 10/02/2023 1:00 PM EDT Office Visit [facility] [address] [place] [address] Shaikh Elliott MD [address] [place] [id number] [facility] Start: 08-07-2023 Hemoglobin A1c measurement Diabetes: Hemoglobin A1C [facility] Start: 11-07-2022 Hemoglobin A1c/Hemoglobin.total in Blood HBA1C [facility] Start: 05-10-2022 End: 07-10-2022 Hemoglobin A1c in Blood [facility] Work Phone: Comment on above: Expected: 05/10/2022 , Expires: 07/10/2022 Start: 03-07-2022 Influenza vaccination INFLUENZA (#1) [facility] Start: 08-21-2021 COVID-19 VACCINE (4 - Booster for Moderna series) COVID-19 VACCINE (4 - Booster for Moderna series) [facility] Start: 07-07-2021 ADVANCE DIRECTIVE DISCUSSION ADVANCE DIRECTIVE DISCUSSION [facility] Start: 07-07-2021 DEPRESSION ASSESSMENT DEPRESSION ASS ESSMENT [facility] Start: 2001 PNEUMOCOCCAL: 65+ (1 - PCV) PNEUMOCOCCAL: 65+ (1 - PCV) [facility] Start: 1986 SHINGRIX VACCINE (1 of 2) SHINGRIX VACCINE (1 of 2) [facility] Start: 1981 DIABETES SCREEN DIABETES SCREEN [facility] Start: 12-17-1955 Urine microalbumin profile DTAP,TDAP,TD (1 - Tdap) [facility] Start: 1954 Hepatitis B surface antibody level LDL CHOLESTEROL [facility] Start: [address] [facility] Start: 1946 3 comp foot exam completed DIABETIC FOOT EXAM [facility] Start: 1946 Hepatitis B screening URINE ALBUMIN:CREATININE RATIO [facility] Start: 1946 Hepatitis C antibody , confirmatory test DILATED RETINAL EXAM [facility] Start: 1942 PNEUMOCOCCAL: 65+ (1 - PCV) PNEUMOCOCCAL: 65+ (1 - PCV) [facility] Start: 1941 Hemoglobin A1c/Hemoglobin.total in Blood HBA1C [facility] Immunizations Immunization Date Immunization Notes Care Provider [facility] 06-06-2023 Influenza, High-dose Seasonal, Quadrivalent, Preservative Free Shaikh Lexi WORKMAN Work Phone: [facility] 05-14-2022 influenza virus vacc ine, unspecified formulation Mekhi VERGARA [facility] 05-14-2022 Influenza, Seasonal, Quadrivalent, Adjuvanted Shaikh Lexi WORKMAN Work Phone: [facility] 06-26-2021 SARS-CoV-2 (COVID-19 ) mRNA-1273 vaccine Mekhi VERGARA [facility] 04-06-2021 influenza virus vacc ine, unspecified formulation Iraida James [facility] 03-28-2021 influenza virus vacc ine, unspecified formulation Mekhi VERGARA [facility] 03-28-2021 Influenza, injectabl e, Madin Lisa Canine Kidney, preservative free, quadrivalent Shaikh Lexi WORKMAN Work Phone: [facility] 02-04-2021 influenza virus vacc ine, unspecified formulation Iraida James [facility] 09-12-2020 SARS-CoV-2 (COVID-19 ) mRNA-1273 vaccine Mekhi VERGARA [facility] 08-14-2020 SARS-CoV-2 (COVID-19 ) mRNA-1273 vaccine Mekhi VERGARA [facility] 05-25-2020 pneumococcal polysaccharide vaccine, 23 valent Mekhi VERGARA [facility] 05-25-2020 zoster vaccine recombinant Mekhi VERGARA [facility] 02-25-2020 influenza virus vacc ine, unspecified formulation Mekhi VERGARA [facility] 02-25-2020 influenza, injectabl e, quadrivalent, preservative free Shaikh Lexi WORKMAN Work Phone: [facility] 02-25-2020 zoster vaccine recombinant Mekhi VERGARA [facility] 05-11-2019 tetanus toxoid, redu nimesh diphtheria toxoid, and acellular pertussis vaccine, adsorbed Mekhi VERGARA [facility] 03-23-2019 influenza virus vacc ine, unspecified formulation Mekhi VERGARA [facility] 03-23-2019 pneumococcal conjuga te vaccine, 13 valent Mekhi VERGARA [facility] 03-23-2019 Seasonal trivalent influenza vaccine, adjuvanted, preservative free Shaikh Lexi WORKMAN Work Phone: [facility] 04-30-2018 influenza virus vacc ine, unspecified formulation Mekhidominique VERGARA [facility] 04-30-2018 Seasonal trivalent influenza vaccine, adjuvanted, preservative free Shaikh Lexi WORKMAN Work Phone: [facility] 02-13-2017 influenza virus vacc ine, unspecified formulation Mekhi VERGARA [facility] 02-13-2017 Seasonal trivalent influenza vaccine, adjuvanted, preservative free Shaikh Lexi WORKMAN Work Phone: [facility] 04-19-2015 influenza virus vacc ine, unspecified formulation Mekhi VERGARA [facility] 04-19-2015 influenza, seasonal, injectable Shaikh Lexi WORKMAN Work Phone: [facility] 04-19-2015 pneumococcal polysaccharide vaccine, 23 valent Mekhi VERGARA [facility] 04-13-2015 influenza virus vacc ine, unspecified formulation Mekhi VERGARA [facility] 04-13-2015 influenza, high dose seasonal, preservative-free Shaikh Lexi WORKMAN Work Phone: [facility] 04-22-2007 influenza virus vacc ine, whole virus Shaikh Lexi WORKMAN Work Phone: [facility] 04-22-2007 influenza, whole Mekhi THOMAS [facility] Payers Date Payer Category Payer Private Health Insurance [facility] AARP SUPPLEMENT [id number] 2013-Present [phone] [address] [address] [place] [address] Indemnity [id number] 2002 Unknown 2001 Medicare [id number] 1959 Medicare [id number] 1959 Unknown [id number] 1936 Unknown [id number] 2.16.840.1.587478.3.579.2 .593 1936 Unknown [id number] 2.16.840.1.734482.3.579.2 .593 1936 Unknown [id number] 2.16.840.1.059690.3.579.2 .593 1936 Unknown [id number] 2.16.840.1.009157.3.579.2 .593 1936 Unknown [id number] 2.16.840.1.402997.3.579.2 .593 1936 Unknown [id number] 2.16.840.1.807356.3.579.2 .593 1936 Unknown [id number] 2.16.840.1.115612.3.579.2 .593 1936 Unknown [id number] 2.16.840.1.957524.3.579.2 .593 1936 Unknown [id number] 2.16.840.1.195051.3.579.2 .593 1936 Unknown [id number] 2.16.840.1.734571.3.579.2 .593 1936 Unknown [id number] 2.16.840.1.569128.3.579.2 .593 1936 Unknown [id number] 2.16.840.1.736372.3.579.2 .593 1936 Unknown [id number] 2.16.840.1.697813.3.579.2 .593 1936 Unknown [id number] 2.16.840.1.015530.3.579.2 .593 1936 Unknown [id number] 2.16.840.1.634109.3.579.2 .593 1936 Unknown [id number] 2.16.840.1.057219.3.579.2 .593 1936 Unknown [id number] 2.16.840.1.689593.3.579.2 .593 1936 Unknown [id number] 2.16.840.1.344149.3.579.2 .593 1936 Unknown [id number] 2.16.840.1.025692.3.579.2 .593 1936 Unknown [id number] 2.16.840.1.788083.3.579.2 .593 1936 Unknown [id number] 2.16.840.1.593482.3.579.2 .593 1936 Unknown [id number] 2.16.840.1.168079.3.579.2 .593 1936 Unknown [id number] 2.16.840.1.067510.3.579.2 .593 1936 Unknown [id number] 2.16.840.1.646479.3.579.2 .593 1936 Unknown [id number] 2.16.840.1.512882.3.579.2 .593 1936 Unknown [id number] 2.16.840.1.458162.3.579.2 .593 1936 Unknown [id number] 2.16.840.1.604995.3.579.2 .196 1936 Unknown [id number] 2.16.840.1.203449.3.579.2 .196 1936 Unknown [id number] 2.16.840.1.060368.3.579.2 .196 1936 Unknown [id number] 2.16.840.1.017463.3.579.2 .196 1936 Unknown [id number] 2.16.840.1.105706.3.579.2 .196 1936 Unknown [id number] 2.16.840.1.383314.3.579.2 .196 1936 Unknown [id number] 2.16.840.1.685619.3.579.2 .125 1936 Unknown [id number] 2.16.840.1.614305.3.579.2 .1258 1936 Unknown [id number] 2.16.840.1.795718.3.579.2 .1258 1936 Unknown [id number] 2.16.840.1.074013.3.579.2 .125 1936 Unknown [id number] 2.16.840.1.417856.3.579.2 .125 1936 Unknown [id number] 2.16.840.1.074468.3.579.2 .1258 1936 Unknown [id number] 2.16.840.1.571987.3.579.2 .727 1936 Unknown [id number] 2.16.840.1.985209.3.579.2 .727 1936 Unknown [id number] 2.16.840.1.246970.3.579.2 .727 1936 Unknown [id number] 2.16.840.1.470618.3.579.2 .727 Social History Date Type Detail Facility Start: 10-09-2021 End: 06-16-2023 Tobacco smoking status Never smoked tobacco (finding) [facility] Start: 07-28-2023 Sex Assigned At Male F [facility] Tobacco smoking status Never [facility] [place] Start: 04-17-2022 End: 06-16-2023 Tobacco use and exposure Smokeless tobacco non-user [facility] Start: 04-17-2022 End: 05-10-2022 Alcohol intake Current drinker of alcohol (finding) [facility] Start: 04-17-2022 Alcohol Comment very occasionally [facility] Start: 1935 Sex Assigned At Not on file C [facility] Start: 04-07-2022 End: 05-10-2022 Exposure to SARS-CoV-2 (event) Not sure [facility] Start: 05-10-2022 Alcohol Comment Rarely [facility] Start: 07-28-2023 Alcohol intake Lifetime non-d abiel (finding) [facility] Start: 07-28-2023 History of Social function [facility] Start: 06-16-2023 Alcohol Comment caffeine: 1-2 cups per day coffee, soda [facility] Functional Status Date Assessment Result Facility 08-19-2023 Functional Status N/A [facility] 12-23-2022 Functional Status N/A [facility] 08-01-2022 Functional Status N/A [facility] 04-22-2022 Functional Status N/A [facility] Clinical Notes 10-09-2021 to 08-28-2023 Telephone Encounter - Maria Luisa Garcia RN - 05/16/2022 10:17 AM Darline Arriaga RN - 05/10/2022 2:13 PM Sindi Downing PA-C - 05/10/2022 10:50 AM EDTPatient Instructions Note Date & Type Note Facility 08-28-2023 Note [place] [facility] Subjective Ben Guadalupe is a 87 y.o. year old male patient who is being evaluated for follow-up 1 year s/p LAAO closure with a Watchman device. 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 He [...] his grandson, planted eggplant, corn, green beans. 08/28/2023 He was in the hospital earlier this week for gastroenteritis. He is currently at the [facility] for rehab. C/o back pain - he is undergoing PT to help this. He has chronic LE edema. Denies CP, dyspnea, orthopnea, PND, dizziness/LH, palpitations. ROS Cardiovascular: Positive for leg swelling. Musculoskeletal: Positive for arthritis, back pain and muscle weakness. Neurological: Positive for weakness. All other systems reviewed and are negative. Objective Visit Vitals BP 134/76 Pulse 68 Resp 16 Ht 1.803 m (5' 11 ) SpO2 95% BMI 24.83 kg/m??? Smoking Status Never BSA 2.01 m??? Physical Exam telephone visit Allergies Allergies Allergen Reactions Oxycodone-Acetaminophen Other reaction(s): [...] mouth in the evening., Disp: , Rfl: baclofen (Lioresal) 10 mg tablet, Take 1 tablet by mouth at bedtime., Disp: , Rfl: cholecalciferol (Vitamin D-3) 25 MCG (1000 UT) capsule, Take 2 capsules every day by oral route (more content not included)... [facility] 08-28-2023 Note Telephone visit for 1 year follow up s/p Watchman implant. He was just discharged from [facility] on Friday for nausea/vomiting and acute hypokalemia. Denies chest pain and SOB. Says his BP has been good at PT. Review of Systems Cardiovascular: Positive for leg swelling. Musculoskeletal: Positive for arthritis, back pain and muscle weakness. Neurological: Positive for weakness. All other systems reviewed and are negative. [facility] 08-25-2023 Note [id number] [facility] 08-19-2023 Hospital Discharge instructions Patient Education 08/19/2023 [...] [facility] [address], [place] [address]- Business (1) When: Unknown Comments:Office will call to schedule follow up [facility] 08-19-2023 Note Custom Cystoscopy ? Voiding after [...] you have a fever over 100 degrees. [facility] 08-19-2023 Evaluation + Plan note Diagnostic Tests PendingUroVysion Fish and Urine Cyto ([facility]) 08/19/23 [facility] 03-07-2023 Note Watchman implant 08/08 Continue ASA for lifelong, may stop plavix being that > 6 months since implantation No need for Antibiotic prophylaxis at this time [facility] 03-07-2023 Note Coronary artery dise ase is stable Continue GDMT- ASA, lipitor, metoprolol continue risk factor modifications- heart healthy diet, regular exercise as tolerated and continue all medications. [facility] 03-07-2023 Note Hypertension is well controlled Continue all meds [facility] 03-07-2023 Note Continue lipitor [facility] 03-07-2023 Note [id number] VASc= 4 No anticoagulation s/p watchman implantation Rate remains controlled metoprolol and diltiazem [facility] 03-07-2023 Note Patient here for 6 m o follow up s/p Watchman implant. Doing ok from cardiac standpoint. Denies chest pain, SOB, and palpitations. Still on Plavix as of now. Review of Systems Cardiovascular: Positive for leg swelling. Hematologic/Lymphatic: Negative. Musculoskeletal: Positive for arthritis, back pain, joint pain and myalgias. All other systems reviewed and are negative. [facility] 03-07-2023 Note UTP CARDIOLOGY PROGR [...] tablet 40 mg in the morning. HYDROcodone-acetaminophen (Broughton) 5-325 mg tablet Take 1 tablet by [...] Global left ventricul (more content not included)... [facility] 12-23-2022 Hospital Discharge instructions Patient [...] if anything looks unusual. Men with a gauayk-fuyi-ukhmff risk for skin cancer may want to see a jaw skinner (supervisor park workers) for an annual body check. What are the benefits of screening? Cancer screening is done to look for cancer in the very early stages, before it spreads and becomes harder to treat and before you would start to notice symptoms. Finding cancer early improves the chances of successful treatment. It may save your life. Where to find more information [place] [employer]: www.cancer.org Centers for Disease Control and Prevention: www.cdc.gov National Cancer [employer]: www.cancer.gov Contact a health care provider if: [...] provider. Document Revised: 11/19/2021 Document Reviewed: 05/19/2020 [employer] Patient Education 2022 [employer]. Follow Up Care 04/22/2022 16:39:16 With:URSULA WORKMAN, Mekhi Oh, URL Address: [facility] [address] , [place] [address]- When: Unknown [facility] [place] 10-24-2022 Note CONSULTATION CONSULTATION [...] which is stable. MEDICATION: Current medication includes Broughton 5 mg q.i.d. p.r.n. He reports it does improve his pain symptoms, improving his quality of life, level of functioning and his sleep pattern. He denies any side effects. He is also on Lyrica 75 mg at h.s., baclofen 10 mg at h.s. and Tylenol Extra Strength six pills a day, which he takes concomitantly with Broughton. EXAM: Notable for patient having left sided [...] our patients to inform us about any nwwh-gkk-kutbfue medications or herbal remedies/nutritional supplements/alternative remedies. 2. [...] options with their primary care provider. [facility] 10-18-2022 Note [place] [facility] Subjective Ben Guadalupe is a [...] February 2022 he was admitted to the [facility] with palpitations and chest pain. He [...] oriented to perso (more content not included)... [facility] 10-18-2022 Note Patient here for fol low up KINZA s/p Watchman device implant. Denies chest pain and SOB. Doing very well. Review of Systems Cardiovascular: Positive for leg swelling. Hematologic/Lymphatic: Negative. Musculoskeletal: Positive for arthritis, back pain, joint pain and myalgias. All other systems reviewed and are negative. [facility] 09-11-2022 Note [facility] Subjective Ben Guadalupe is a [...] February 2022 he was admitted to the [facility] with palpitations and chest pain. He [...] Right lower le (more content not included)... [facility] 09-11-2022 Note Patient here for 2 w augustine follow up Watchman implant. Says he feels good. Denies chest pain and SOB. Review of Systems Cardiovascular: Positive for leg swelling. Hematologic/Lymphatic: Negative. Musculoskeletal: Positive for arthritis, back pain and myalgias. All other systems reviewed and are negative. [facility] 08-06-2022 Hospital Discharge instructions Patient [...] Address: [facility] [address] [place] [address]- Business (1) When: Unknown Comments:Office will call to schedule follow up [facility] 07-30-2022 Note CONSULTATION CONSULTATION DATE: 07/30/2022 CHIEF [...] the patient's pain. The patient currently takes Broughton 5/325 on a q.i.d. basis, Lyrica 75 [...] oriented x3, engaging with very good short term/chcf memory. IMPRESSION: Current working diagnosis on the [...] like to maintain. CC: Dr. Elliott [facility] 06-25-2022 Note CONSULTATION CONSULTATION DATE: 06/25/2022 [...] patient currently takes Lyrica 75 mg b.i.d., Broughton 5/325 q.i.d., baclofen 10 mg q.h.s. The [...] like to proceed. CC: Dr. Elliott [facility] 05-17-2022 Note HNO ID: [id number] Author: Minesh Levy APRN.SE[employer]ARY [employer] COMM[employer]IONERS Service: ? Author Type: Nurse Sample Builder Type: Anesthesia Procedure Notes Filed: 05/17/2022 11:19 [...] Orientation: Left Location: Hand SIGNATURE: Minesh Levy APRN.CRNA PATIENT NAME: Ben Guadalupe DATE: May 17, 2022 TIME: 11:17 AM CSN: [id number] [facility] 05-17-2022 Note HNO ID: [id number] Author: Minesh Levy APRN.SE[employer]ARY [employer] Service: ? Author Type: Nurse Sample Builder Type: Anesthesia Procedure Notes Filed: 05/17/2022 10:39 AM Note Text: ANESTHESIOLOGY PROCEDURE NOTE Airway General Information Procedure Start Time/Medication Administration: 05/17/2022 10:11 AM Patient location during procedure: OR Timeout Performed Pre-procedure: timeout performed Consent Obtained: Yes Patient identity confirmed: arm band and patient Staffing Anesthesiologist: Kandice Guadalupe MD SECRETARY BOARD [employer] COMMISSIONERS: Minesh Levy APRN.SECRETARY [employer] COMMISSIONERS Performed by: IGNACIO Indications and Patient Condition Indications for airway management: anesthesia Preoxygenated: yes anesthesia circuit Patient position: sniffing Method: asleep Difficult Mask: No Final Airway Details Final airway type: supraglottic airway Number of attempts at approach: 1 Final Supraglottic Airway: i-gel Size 5 Seal Adequate: yes Failed airway: no Unrecognized esophageal intubation: no Airway not difficult SIGNATURE: Minesh Levy APRN.SECR[employer]ARY [employer] COMMISSIONERS PATIENT NAME: Ben Guadalupe DATE: May 17, 2022 TIME: 10:38 AM CSN: [id number] [facility] 05-17-2022 Note HNO ID: [id number] Author: Shruthi Valdez RN Service: Nursing Author Type: Registered Nurse Type: Nursing Progress Note Filed: 05/17/2022 10:04 AM Note Text: Other: Dr. Ruiz and Dr. Guadalupe aware of K+ of 3.0. Awaiting orders. [facility] 05-16-2022 Miscellaneous Notes Attempt to call patient to review prep for surgery tomorrow, no answer, no voicemail available. documented in this encounter [facility] 05-10-2022 Note HNO ID: [id number] Author: Donna Arriaga RN Service: ? Author [...] Time spent on patient education: 20 minutes [facility] 05-10-2022 History of Present illness Narrative EUA, [...] education: 20 minutes documented in this encounter [facility] 05-10-2022 Note Education (KADIE) BEN GUADALUPE ([id number]) 1935 M Date Time Provider Department 05/10/22 [...] Encounter Status:Closed by DONNA ARRIAGA on 05/10/22 [facility] 05-10-2022 History and physical note HISTORY AND [...] 02/18/2022 Chronic kidney disease, stage 4 (severe) ([facility]) 12/20/2021 Chronic obstructive pulmonary disease ([facility]) 11/27/2021 Deep vein thrombosis (DVT) ([facility]) 1989 LLE- unprovoked Dementia in other diseases classified elsewhere, unspecified severity, without behavioral disturbance, psychotic disturbance, mood disturbance, and anxiety ([facility]) 11/27/2021 Diabetes ([facility]) Diabetes mellitus ([facility]) 11/01/2021 Essential (primary) hypertension 08/13/2017 Gastroesophageal reflux disease with esophagitis 05/10/2022 History of DVT (deep vein thrombosis) 05/10/2022 History of primary malignant neoplasm of urinary bladder 04/22/2022 History of prostate cancer 08/01/2015 Hypothyroidism unspecified 07/10/2021 Intracranial hemorrhage ([facility]) 05/10/2022 Neuropathy PAF (paroxysmal atrial fibrillation) ([facility]) 03/18/2022 Parkinson's disease ([facility]) PONV (postoperative nausea and vomiting) Radiculopathy, cervical [...] LLE +chronic LE edema Cards: Dr. Danielle [facility] 03/19/22 Denies any history of HI, CHF,PE, arrhythmias or murmurs. Denies CP, SOB, [...] 442 QTC Calculation (Bazett) 497 Calculated P Alpine 37 Calculated R Alpine 64 Calculated T Alpine -10 Impression NORMAL SINUS RHYTHM COMPLETE RIGHT BUNDLE BRANCH BLOCK INFERIOR T WAVE ABNORMALITY ABNORMAL ECG No results found for this or any previous visit (from the past 77598 hour(s)). OSH Cardiovascular testing ABIs 10/11/2021: Normal [...] Shashi FITCH 03/19/22 PAF (paroxysmal atrial fibrillation) ([facility]) Assessment: admitted to hospital 02/2022 with chest [...] TIME: 1:37 PM documented in this encounter [facility] 05-09-2022 Instructions Afia Downing PA-C - 05/09/2022 12:36 PM EDT PATIENT PREOPERATIVE INSTRUCTIONS Lorraine Wilcox* has scheduled you for your procedure at this surgery center: [facility] Scheduling Office: [phone] --[address] [place] [address]. Please read below carefully for your personalized [...] or other anticoagulants without consulting with your fusing machine feeder or prescribing physician. - Stop Vitamin E, [...] Procedures: - YOU MUST HAVE A RESPONSIBLE ELECTRICIAN POWERHOUSE TAKE YOU HOME. A EDUCATION ASSISTANT OR BENCH CARPENTER CANNOT BE MADE A RESPONSIBLE ELECTRICIAN POWERHOUSE. - We recommend that a responsible person [...] call the Friday before. Your surgeon s small brake form operator will tell you what time to call the office. - If you have not reached the departmental small brake form operator by 5 P.M., call [phone] after 5 P.M. the day before your surgery. Please be aware that emergency situations arise, which may delay or change your surgical time. If this happens, we will notify you as soon as possible and regret any inconvenience. If you already have an Advance Directive, please fax a copy to [phone] or email to for it to be [...] Afia Downing PA-C documented in this encounter [facility] 04-25-2022 Miscellaneous Notes The Patient's granddaughter ( Milly Guadalupe) is calling to confirm surgery date, get all testing scheduled for her grandfather. Please call her at : [phone] at 11:30 AM or later, as she is at an appointment now. Thank you. documented in this encounter [facility] 04-24-2022 Miscellaneous Notes SPECIALTY CARE COORDINATION FOLLOW-UP NOTE Message left Pt to call in to discuss setting up surgery Offered 05/17/22 surgical date Any pre-operative business date within 30 days of surgical date Call back number left Signature Marika Zuñiga RN April 24, [address] [facility] 04-22-2022 Hospital Discharge instructions Patient Education [...] who: Are older than age 65. Are -F[place]ian. Are obese. Have a family history of [...] cells. Follow these instructions at home: Take msxp-nxw-sonkecw and prescription medicines only as told by [...] 06/23/2006 Document Revised: 06/05/2018 Document Reviewed: 03/03/2017 [employer] Patient Education Slack. Follow Up Care 02/25/2022 17:01:47 With:URSULA WORKMAN, Mekhi Oh, URL Address: [facility] [address], [place] [phone] When:10/21/2022 [facility] 04-17-2022 History and physical note COLORECTAL SURGERY [...] closed Resting tone: NORMAL Squeeze tone: NORMAL Network Mgr present: Yes Anoscopy: The patient was placed [...] treatment plan: high documented in this encounter [facility] 04-11-2022 Note CONSULTATION PROCEDURE DATE: 04/11/2022 [...] be followed up in the office. 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 His lower back feels tight, achy and spasmodic. He is having increasing bilateral lower extremity pain. Activities that aggravate his pain are standing, walking, lying, sitting and any physical activity. The use of medication, in addition to heat, decreases his pain. Medications include Lyrica 75 mg b.i.d., baclofen 10 mg q.h.s., Broughton 5/325 q.i. d. and a multivitamin regimen. 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 Patient agrees with the plan of care, will be followed up post procedure. [facility] 02-14-2022 Note CONSULTATION PROCEDURE DATE: 02/14/2022 [...] be followed up in the clinic. [facility] 02-14-2022 Note CONSULTATION CONSULTATION DATE: 02/14/2022 [...] and he was in obvious distress. His Broughton was increased to 5/325 q.i.d. at that time, which has been helpful. The patient states since the introduction of the Lyrica to his regimen that his Broughton is back down to t.i.d. The intent [...] of this medication in addition to the Broughton. Patient agrees with the plan of care and will be seen in eight weeks time unless otherwise indicated. [facility] 01-10-2022 Note CONSULTATION CONSULTATION DATE: 01/10/2022 [...] at home. Medication includes at this time Broughton 5/325 t.i.d., baclofen 10 mg daily and [...] the patient and noting his distress, his Broughton 5/325 will be increased to four times a day. He will be started on Lyrica 50 mg b.i.d. 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 He will receive bilateral lumbar trigger point injections in the office today as well. He will return to the clinic in six weeks' time to re-evaluate his pain pattern and efficacy of the Lyrica. Patient does agree. [facility] 01-10-2022 Note CONSULTATION PROCEDURE DATE: 01/30/2022 [...] procedure well with no overt complications. [facility] 11-29-2021 Note CONSULTATION PROCEDURE DATE: 11/29/2021 [...] will be followed up in the clinic. [facility] Signed and Approved by: CALVIN MOREJON . 12/06/2021 16:01:00 [facility] 11-29-2021 Note CONSULTATION CONSULTATION DATE: 11/29/2021 [...] lower lumbar area. 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 He does use heat daily which is helpful, in addition to Vicks VapoRub. Medications include baclofen 10 mg q.h.s., Broughton 5/325 t.i.d. and a multivitamin regimen. The [...] degenerative disc. PLAN: A refill for his Broughton 5/325 t.i.d. will be sent to the pharmacy. Patient will receive bilateral lumbar trigger point injections, which he agrees to receive here in the clinic. We will maintain his medications at the current regimen. He is to increase the amount of frequency of heat application and menthol heat rub. We will see the patient in six weeks' time unless otherwise indicated. [facility] Signed and Approved by: CALVIN MOREJON . 12/06/2021 16:01:00 [facility] 11-21-2021 Note OPERATIVE NOTE OPERATION DATE: [...] in good condition. CC: Shaikh Lexi M.D. [facility] Signed and Approved by: DR YENNI STANLEY . 11/28/2021 10:45:00 [facility] 10-09-2021 Hospital Discharge instructions Patient Education [...] 03/19/2005 Document Revised: 10/08/2018 Document Reviewed: 10/08/2018 [employer] Patient Education 2020 [employer]. Follow Up Care 10/01/2021 07:48:54 With:Iraida James CNP Address: When:3 months only if needed [facility] Evaluation + Plan note Future Appointments Appointment Date:10/16/2021 02:20:00 PM Scheduled Provider: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 MD Location:[facility] Appointment Type:[address] Digestive Health Evaluation + Plan note Future Appointments Appointment Date:04/30/2022 01:40:00 PM Scheduled Provider: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 MD Location:[facility] Appointment Type: 15 Appointment Date:10/21/2022 03:15:00 PM Scheduled Provider:Mekhi VERGARA MD Location:[facility] Appointment Type:URO Office Visit Diagnostic Tests PendingPSA Total 04/22/22 [facility] Evaluation + Plan note Future Appointments Appointment Date:10/21/2022 03:15:00 PM Scheduled Provider:Mekhi VERGARA MD Location:[facility] Appointment Type:URO Office Visit Diagnostic Tests PendingUroVysion Fish and Urine Cyto ([facility]) 08/06/22 [facility] Evaluation + Plan note Future Appointments Appointment Date:06/23/2023 03:00:00 PM Scheduled Provider:Mekhi VERGARA MD Location:[facility] Appointment Type:URO Office Visit Diagnostic Tests PendingPSA Total 12/23/22 [facility] Evaluation note Diagnosis Fourth degree hemorrhoids- Primary Unspecified hemorrhoids with other complication [facility] Diagnosis Pre-op evaluation- Primary Preoperative examination, [...] Coronary atherosclerosis of unspecified type of vessel, seminole or graft PAF (paroxysmal atrial fibrillation) (HCC) Atrial fibrillation History of DVT (deep vein thrombosis) Personal history of venous thrombosis and embolism Gastroesophageal reflux disease with esophagitis, unspecified whether hemorrhage Chronic kidney disease, stage 4 (severe) (HCC) Calculus of kidney Hypothyroidism unspecified Iron deficiency [...] with other complication [facility] Chronic venous insufficiency of lower extremity Chronic heart failure with preserved ejection fraction (CMS/HCC) Chronic bilateral low back pain with bilateral sciatica [facility] Narrative No data available for this section [facility] Discharge instructions No data available for this section General Surgery [place] [facility] note No data available for this section [facility] Summary Purpose Family History No Family History Records FoundNo Family History Records FoundNo Family History Records FoundNo Family History Records FoundNo Family History Records Found No data available for this section No data available for this section No Family History Records FoundNo Family History [...] and content) DATE CREATED AUTHOR 12/31/2017 [facility] DATE CREATED AUTHOR AUTHOR'S ORGANIZ ATION 05/31/2022 [facility] DATE CREATED AUTHOR AUTHOR'S ORGANIZ ATION 11/02/2022 [facility] DATE CREATED AUTHOR AUTHOR'S ORGANIZ ATION 06/20/2023 [facility] DATE CREATED AUTHOR AUTHOR'S ORGANIZ ATION 07/29/2023 [facility] DATE CREATED AUTHOR AUTHOR'S ORGANIZ ATION 09/05/2023 [facility] DATE CREATED AUTHOR AUTHOR'S ORGANIZ ATION 09/06/2023 [facility] Source Comments (unrecognize d section and content) In the event this informatio n is protected by the Federal Confidentiality of Alcohol and Drug Abuse Patient Records regulations: The Federal rules restrict any use of the information to criminally investigate or prosecute any alcohol or drug abuse patient.[facility] the event this information is protected by the Federal Confidentiality of Alcohol and Drug Abuse Patient Records regulations: The Federal rules restrict any use of the information to criminally investigate or prosecute any alcohol or drug abuse patient.[facility] the event this information is protected by the Federal Confidentiality of Alcohol and Drug Abuse Patient Records regulations: The Federal rules restrict any use of the information to criminally investigate or prosecute any alcohol or drug abuse patient.[facility] the event this information is protected by the Federal Confidentiality of Alcohol and Drug Abuse Patient Records regulations: The Federal rules restrict any use of the information to criminally investigate or prosecute any alcohol or drug abuse patient.[facility] the event this information is protected by the Federal Confidentiality of Alcohol and Drug Abuse Patient Records regulations: The Federal rules restrict any use of the information to criminally investigate or prosecute any alcohol or drug abuse patient.[facility] the event this information is protected by the Federal Confidentiality of Alcohol and Drug Abuse Patient Records regulations: The Federal rules restrict any use of the information to criminally investigate or prosecute any alcohol or drug abuse patient.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 [facility] [employer] [facility]. provides no warranty or guarantee of the accuracy or completeness of information in this document.
--- NOTE | 2023-09-13 11:01 | ED_ITS ---
HPI - Back Pain/Injury General Chief Complaint: Back Pain/Injury Stated Complaint: PAIN Time Seen by Provider: 09/13/23 10:32 Source: patient Mode of arrival: ambulance History of Present Illness HPI Narrative: Patient sent from the [facility] by EMS for evaluation after he complained of increasing low back pain. He has chronic low back pain, peripheral neuropathy and uses a walker to get around at home. But he is mostly in bed or sitting during the day. He contracted influenza and became so dehydrated and weak that he had to be admitted to the hospital. He is now rehabbing at the [facility] to increase his strength and mobility. But over the last 2 days his low back pain has worsened and this morning it was so bad that he could not get out of bed. No relief with oxy at 5 or 6am. No new neuro symptoms such as saddle anesthesia/paresthesia, new numbness or tingling or new weakness to the lower extremities. No worsening of bowel of bladder incontinence and no new retention of stool or urine. Related Data Home Medications Medication Instructions Recorded Confirmed albuterol sulfate 90 mcg/actuation 1 inh inhalation Q4H PRN shortness 12/27/22 09/13/23 aerosol inhaler (ProAir HFA) of breath or wheezing allopurinol 300 mg tablet 300 mg PO DAILY 12/27/22 09/13/23 cholecalciferol (vitamin D3) 25 50 mcg PO DAILY 12/27/22 09/13/23 mcg (1,000 unit) capsule (Vitamin D3) levothyroxine 50 mcg tablet 50 mcg PO DAILY 12/27/22 09/13/23 nitroglycerin 0.4 mg sublingual 0.4 mg sublingual Q5M PRN chest 12/27/22 09/13/23 tablet (Nitrostat) pain aspirin 81 mg capsule 81 mg PO DAILY 01/09/23 09/13/23 diltiazem HCl 180 mg 180 mg PO DAILY 01/09/23 09/13/23 capsule,extended release 24 hr donepezil 10 mg tablet (Aricept) 10 mg PO DAILY 01/09/23 09/13/23 famotidine 20 mg tablet 20 mg PO DAILY 01/09/23 09/13/23 ferrous sulfate 325 mg (65 mg 325 mg PO .every other day 01/09/23 09/13/23 iron) tablet fluticasone propionate 50 2 spray intranasal DAILY PRN nasal 01/09/23 09/13/23 mcg/actuation nasal congestion spray,suspension (Flonase Allergy Relief) furosemide 20 mg tablet 40 mg PO BID 01/09/23 09/13/23 losartan 100 mg tablet 100 mg PO DAILY 01/09/23 09/13/23 magnesium oxide,aspartate,citr 400 mg PO BEDTIME 01/09/23 09/13/23 metoprolol tartrate 25 mg tablet 25 mg PO BID 01/09/23 09/13/23 psyllium husk 0.4 gram capsule 0.4 g PO DAILY 01/09/23 09/13/23 (Metamucil) tamsulosin 0.4 mg capsule (Flomax) 0.4 mg PO DAILY 01/09/23 09/13/23 atorvastatin 20 mg tablet 20 mg PO DAILY 01/10/23 09/13/23 baclofen 10 mg tablet 10 mg PO BID muscle spasm 01/10/23 09/13/23 Lactobacillus rhamnosus GG 10 1 cap PO DAILY 07/18/23 09/13/23 billion cell capsule (Culturelle) dapagliflozin propanediol 10 mg 10 mg PO DAILY 07/18/23 09/13/23 tablet (Farxiga) glipizide 5 mg tablet 5 mg PO BID 07/18/23 09/13/23 multivitamin 1 tab PO BID 07/18/23 09/13/23 acetaminophen 500 mg tablet 1,000 mg PO Q8H PRN pain 09/13/23 09/13/23 (Tylenol Extra Strength) docusate sodium 100 mg capsule 100 mg PO BID 09/13/23 09/13/23 (Colace) metolazone 2.5 mg tablet 2.5 mg PO DAILY 09/13/23 09/13/23 naloxone 4 mg/actuation nasal 4 mg intranasal DAILY PRN opioid 09/13/23 09/13/23 spray (Narcan) overdose ondansetron 4 mg disintegrating 4 mg PO Q6H PRN nausea and vomiting 09/13/23 09/13/23 tablet oxycodone 10 mg tablet 10 mg PO Q6H PRN pain 09/13/23 09/13/23 potassium chloride 20 mEq 20 meq PO DAILY 09/13/23 09/13/23 tablet,extended release(part/cryst) (Klor-Con M) Previous Rx's Medication Instructions Recorded pregabalin 100 mg capsule (Lyrica) 100 mg PO TID 5 days #15 caps 08/25/23 Allergies Allergy/AdvReac Type Severity Reaction Status Date / Time tizanidine [From Zanaflex] Allergy Unknown Verified 07/18/23 19:12 acetaminophen [From Percocet] AdvReac Mild Vomiting Verified 07/18/23 19:12 cyclobenzaprine AdvReac Mild Hallucinati Verified 07/18/23 19:12 [From Flexeril] ng oxycodone [From Percocet] AdvReac Mild Vomiting Verified 07/18/23 19:12 tramadol AdvReac Mild Vomiting Verified 07/18/23 19:12 PFSH PFS Medical History (Updated 09/13/23 @ 12:25 by Saroj Valadez) Chronic kidney disease ?N18.9 - Chronic kidney disease, unspecified (ICD-10) Spondylosis ?M47.9 - Spondylosis, unspecified (ICD-10) Radiculopathy ?M54.10 - Radiculopathy, site unspecified (ICD-10) Chronic diastolic heart failure ?I50.32 - Chronic diastolic (congestive) heart failure (ICD-10) Type 2 diabetes mellitus ?E11.9 - Type 2 diabetes mellitus without complications (ICD-10) Afib ?I48.91 - Unspecified atrial fibrillation (ICD-10) Spinal stenosis ?M48.00 - Spinal stenosis, site unspecified (ICD-10) Peripheral edema ?R60.0 - Localized edema (ICD-10) Hypertension ?I10 - Essential (primary) hypertension (ICD-10) Lumbar spondylosis ?M47.816 - Spondylosis without myelopathy or radiculopathy, lumbar region (ICD-10) Chronic low back pain ?M54.50 - Low back pain, unspecified (ICD-10) ?G89.29 - Other chronic pain (ICD-10) Anxiety ?F41.9 - Anxiety disorder, unspecified (ICD-10) Shortness of breath ?R06.02 - Shortness of breath (ICD-10) 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 ?R33.9 - Retention of urine, unspecified (ICD-10) Ambulatory dysfunction ?R26.2 - Difficulty in walking, not elsewhere classified (ICD-10) HLD (hyperlipidemia) ?E78.5 - Hyperlipidemia, unspecified (ICD-10) Depression with anxiety ?F41.8 - Other specified anxiety disorders (ICD-10) Acute hypokalemia ?E87.6 - Hypokalemia (ICD-10) Unable to ambulate ?R26.2 - Difficulty in walking, not elsewhere classified (ICD-10) Intractable low back pain ?M54.59 - Other low back pain (ICD-10) CKD stage 3 due to type 2 diabetes mellitus ?E11.22 - Type 2 diabetes mellitus with diabetic chronic kidney disease (ICD- 10) ?N18.30 - Chronic kidney disease, stage 3 unspecified (ICD-10) Lumbar stenosis with neurogenic claudication ?M48.062 - Spinal stenosis, lumbar region with neurogenic claudication (ICD- 10) Osteoarthritis of right knee ?M17.11 - Unilateral primary osteoarthritis, right knee (ICD-10) Chronic pain syndrome ?G89.4 - Chronic pain syndrome (ICD-10) Chronic prescription opiate use ?Z79.891 - shelter (current) use of opiate analgesic (ICD-10) Osteoarthritis, 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 - Primary osteoarthritis, unspecified shoulder (ICD-10) Right shoulder pain ?M25.511 - Pain in right shoulder (ICD-10) Lumbar radiculopathy ?M54.16 - Radiculopathy, lumbar region (ICD-10) Abdominal pain ?R10.9 - Unspecified abdominal pain (ICD-10) Nausea & vomiting ?R11.2 - Nausea with vomiting, unspecified (ICD-10) Esophagitis ?K20.90 - Esophagitis, unspecified without bleeding (ICD-10) Muscle spasm ?M62.838 - Other muscle spasm (ICD-10) Lumbar stenosis ?M48.061 - Spinal stenosis, lumbar region without neurogenic claudication (ICD-10) Retraction of blood clot ?I74.9 - Embolism and thrombosis of unspecified artery (ICD-10) Inguinal hernia ?K40.90 - Unilateral inguinal hernia, without obstruction or gangrene, not specified as recurrent (ICD-10) Presence of Watchman left atrial appendage closure device ?Z95.818 - Presence of other cardiac implants and grafts (ICD-10) Low back pain ?M54.50 - Low back pain, unspecified (ICD-10) Rheumatoid arthritis ?M06.9 - Rheumatoid arthritis, unspecified (ICD-10) Osteoarthritis ?M19.90 - Unspecified osteoarthritis, unspecified site (ICD-10) Gout ?M10.9 - Gout, unspecified (ICD-10) DVT (deep venous thrombosis) ?I82.409 - Acute embolism and thrombosis of unspecified deep veins of unspecified lower extremity (ICD-10) Bladder cancer ?C67.9 - Malignant neoplasm of bladder, unspecified (ICD-10) Hearing deficit ?H91.90 - Unspecified hearing loss, unspecified ear (ICD-10) IBS (irritable bowel syndrome) ?K58.9 - Irritable bowel syndrome without diarrhea (ICD-10) Acid reflux ?K21.9 - Gastro-esophageal reflux disease without esophagitis (ICD-10) Hypothyroid ?E03.9 - Hypothyroidism, unspecified (ICD-10) Diabetes 1.5, managed as type 2 ?E13.9 - Other specified diabetes mellitus without complications (ICD-10) Kidney stone ?N20.0 - Calculus of kidney (ICD-10) Prostate cancer ?C61 - Malignant neoplasm of prostate (ICD-10) CPAP (continuous positive airway pressure) dependence ?Z99.89 - Dependence on other enabling machines and devices (ICD-10) Sleep apnea ?G47.30 - Sleep apnea, unspecified (ICD-10) Hypercholesterolemia ?E78.00 - Pure hypercholesterolemia, unspecified (ICD-10) Surgical History H/O transurethral resection of bladder tumor (TURBT) ?Z98.890 - Other specified postprocedural states (ICD-10) ?Z86.03 - Personal history of neoplasm of uncertain behavior (ICD-10) H/O arthroscopy of knee ?Z98.890 - Other specified postprocedural states (ICD-10) S/P tonsillectomy and adenoidectomy ?Z90.89 - Acquired absence of other organs (ICD-10) Previous back surgery ?Z98.890 - Other specified postprocedural states (ICD-10) H/O neck surgery ?Z98.890 - Other specified postprocedural states (ICD-10) Family History Other Family history of diabetes mellitus Social History (Updated 07/18/23 @ 22:27 by Betsy Rojo) Within the past year, how often did you have a drink containing alcohol: never Score interpretation: A score less than 4 is consistent with normal alcohol consumption. Smoking status: Never smoker Non-prescribed substance use: denies use Previous occupational history: retired Known occupational exposures/hazards: No Highest level of school completed/degree received: 12th grade, no diploma Are you now , , , , never or living with a partner: In a typical week, how many times do you talk on the telephone with family, friends, or neighbors: 3 or more times per week How often do you get together with friends or relatives: 3 or more times per week How often do you attend hinduism or catholic services: never Do you belong to any clubs or organizations such as hinduism groups unions, fraternal or athletic groups, or school groups: no Total score: 1 Score interpretation: A score of less than or equal to 1 indicates the most socially isolated. Little interest or pleasure in doing things: not at all Feeling down, depressed, or hopeless: not at all Feel stressed/tense/nervous/anxious/difficulty sleeping: not at all Do you think of yourself as: straight/heterosexual Gender Identity: male Exam Narrative Exam Narrative: afebrile General: Alert, no acute distress, patient resting comfortably Skin: warm, intact, no pallor noted Head: Normocephalic, atraumatic Eye: Normal conjunctiva Respiratory: No acute distress Abdomen: Normal bowel sounds, soft, nontender, no masses detected. No rebound, guarding, or rigidity noted. Back: inspection of the back shows no obvious deformity, no swelling, no ecchymosis, contusion, abrasion, swelling, erythema, fluctuance or induration. Tenderness noted throughout midline lumbar spine. Straight leg raise on left is positive. Straight leg raise on right is positive. He has a sacral decubitus ulcer that is dressed with recent change noted on the dressing. No CVA tenderness noted bilaterally. Musculoskeletal: No deformity noted to bilateral lower extremities. no cyanosis or mottling noted. normal pulses at DP and PT 2+ bilaterally and symmetrically. Weak at ankles with dorsiflexion and plantar flexion - son notes this is patient's baseline. Decreased sensation noted to both lower extremities - also chronic per son. Neurological: AAOx4, normal sensory and motor observed. L5-S1 reflexes intact symmetrically. DTR 2+ at patellar bilaterally. Psychiatric: Cooperative and interactive. Constitutional Vital Signs, click to edit/add: Last Vital Signs Temp 98.4 F 09/13/23 10:33 Pulse 70 09/13/23 12:07 Resp 16 09/13/23 12:07 BP 93/52 09/13/23 12:00 Pulse Ox 95 09/13/23 12:00 O2 Del Method Room Air 09/13/23 10:33 Course Vital Signs Vital signs: Vital Signs Temperature 98.4 F 09/13/23 10:33 Pulse Rate 88 09/13/23 10:33 Respiratory Rate 20 09/13/23 10:33 Blood Pressure 109/65 09/13/23 10:33 Pulse Oximetry 95 09/13/23 10:33 Oxygen Delivery Method Room Air 09/13/23 10:33 Temperature 98.4 F 09/13/23 10:33 Pulse Rate 70 09/13/23 12:07 Respiratory Rate 16 09/13/23 12:07 Blood Pressure 93/52 09/13/23 12:00 Pulse Oximetry 95 09/13/23 12:00 Oxygen Delivery Method Room Air 09/13/23 10:33 MDM - Back Pain/Injury MDM Narrative Medical decision making narrative: Patient was ordered to receive Solu-Medrol, low-dose Toradol, low-dose Ativan and low-dose Dilaudid. He was sent for CT scanning of the lumbar spine without contrast. Patient found to have anterior wedging of L1 - present on prior CT - along with moderate to severe degenerative disc changes with some herniation throughout the lumbar spine, per radiologist. Patient better with ED treatment but still not at baseline level of pain control and still unable to ambulate due to the pain. Call placed to his PCP to discuss admission. Dr Elliott agreed to admit the patient after we discussed the case Patient and family also agreeable. Imaging Data ct lumbar spine: My impression: PROCEDURE: CT lumbar spine wo con COMPARISON: HISTORY: low back pain TECHNIQUE: Axial, Coronal, and Sagittal CT images obtained without IV contrast. Dose reduction techniques were achieved by using automated exposure control and/or adjustment of mA and/or kV according to patient size and/or use of iterative reconstruction technique. FINDINGS: PARASPINAL AREA: Normal with no visible mass. Vascular calcifications DISCS: Moderate to severe multilevel disc space narrowing with disc collapse at L1-L2 3 and L3-L4 with endplate sclerosis and vacuum disc. Severe disc space narrowing L4-L5. Posterior broad-based disc herniation the protrusion type at L5-S1 extending posteriorly up to 5 mm, sagittal image 24. Mild multilevel foraminal stenosis BONES: Stable alignment with no new fracture or spondylolisthesis. Mild anterior inferior wedging of the L1 vertebral body, stable. 3 mm retrolisthesis of L1 on L2 and L2 on L3, unchanged. Moderate diffuse degenerative spondylosis and facet osteoarthropathy OTHER: Negative. Radiologist's impression: ITS Impressions Lumbar Spine CT 09/13/23 11:06 IMPRESSION: No acute abnormality Stable moderate to severe diffuse degenerative changes Electronically authenticated by: LEEANN PADILLA Date: 09/13/2023 12:02 Discharge Plan Discharge Chief Complaint: Back Pain/Injury Clinical Impression: Intractable low back pain, Lumbar radiculopathy, DDD (degenerative disc disease), lumbar, Decubitus ulcer of sacral area Patient Disposition: Admitted as Observation Time of Disposition Decision: 12:23
--- NOTE | 2023-09-13 11:06 | CT_ITS ---
[address] [address] Patient Name: GUILLERMINA GUADALUPE MRN: [id number] date: 1935 Sex: M Assigned Patient Location: ER Current Patient Location: ER Accession/Order Number: [id number] Exam Date: 09/13/2023 11:22 Report Date: 09/13/2023 12:02 At the request of: CONCHIS TREVIZO Procedure: CT lumbar spine wo con PROCEDURE: CT lumbar spine wo con COMPARISON: HISTORY: low back pain TECHNIQUE: Axial, Coronal, and Sagittal CT images obtained without IV contrast. Dose reduction techniques were achieved by using automated exposure control and/or adjustment of mA and/or kV according to patient size and/or use of iterative reconstruction technique. FINDINGS: PARASPINAL AREA: Normal with no visible mass. Vascular calcifications DISCS: Moderate to severe multilevel disc space narrowing with disc collapse at L1-L2 3 and L3-L4 with endplate sclerosis and vacuum disc. Severe disc space narrowing L4-L5. Posterior broad-based disc herniation the protrusion type at L5-S1 extending posteriorly up to 5 mm, sagittal image 24. Mild multilevel foraminal stenosis BONES: Stable alignment with no new fracture or spondylolisthesis. Mild anterior inferior wedging of the L1 vertebral body, stable. 3 mm retrolisthesis of L1 on L2 and L2 on L3, unchanged. Moderate diffuse degenerative spondylosis and facet osteoarthropathy OTHER: Negative. CT/CT lumbar spine wo con IMPRESSION: No acute abnormality Stable moderate to severe diffuse degenerative changes Electronically authenticated by: LEEANN PADILLA Date: 09/13/2023 12:02
[2023-09-13] MEDS: KETOROLAC TROMETHAMINE 30 MG/ML VIAL 15 MG IVP (11:16)
[2023-09-13] MEDS: METHYLPREDNISOLONE SOD SUCC PF 125 MG/2 ML VIAL IVP (11:16)
[2023-09-13] MEDS: LORAZEPAM 2 MG/ML 1 ML VIAL 0.5 MG IV (11:17)
[2023-09-13] MEDS: HYDROMORPHONE HCL 0.5 MG/0.5 ML SYRINGE IV (11:17)
[2023-09-13] MEDS: 0.9 % SODIUM CHLORIDE 1,000 ML 200 ML IV (12:32)
[2023-09-13 13:05] LABS: Basophils Percent Auto 0.2 % (0.2-2.0); Eosinophils Absolute Auto 0.1 10^3/uL (0.0-0.7); Eosinophils Percent Auto 0.7 % (0.9-7.0); Hematocrit 37.8 % (42.0-54.0); Hemoglobin 12.7 g/dL (14.0-18.0); Immature Granulocytes Abs Auto 0.07 10^3/uL (0.00-0.03); Immature Granulocytes Pct Auto 0.7 % (0.0-0.5); Lymphocytes Absolute Auto 0.8 10^3/uL (1.2-3.8); Lymphocytes Percent Auto 8.3 % (20.5-60.0); Mean Corpuscular HGB Conc 33.6 g/dL (29.9-35.2); Mean Corpuscular Volume 92.2 fL (80.0-94.0); Mean Platelet Volume 10.9 fL (9.5-13.5); Monocytes Absolute Auto 0.4 10^3/uL (0.3-0.8); Monocytes Percent Auto 4.2 % (1.7-12.0); Neutrophils Absolute Auto 8.7 10^3/uL (1.4-6.5); Neutrophils Percent Auto 85.9 % (43.0-75.0); Platelet Count 117 10^3/uL (150-450); Red Cell Distribution Width 13.3 % (11.0-15.0); White Blood Count 10.1 10^3/uL (4.0-11.0)
[2023-09-13 13:15] LABS: Alanine Aminotransferase 29 U/L (16-63); Albumin Globulin Ratio 0.8; Albumin Level 2.7 g/dL (3.4-5.0); Alkaline Phosphatase 78 U/L (46-116); Anion Gap 11.5; Aspartate Amino Transferase 12 U/L (15-37); BUN Creatinine Ratio 20.7; Bilirubin Total 0.5 mg/dL (0.2-1.0); Calcium 8.5 mg/dL (8.5-10.1); Chloride 98 mmol/L (98-107); Estimated GFR (African America 44 (>=60); Estimated GFR (Non-African Ame 36 (>=60); Globulin 3.4 g/dL; Glucose 274 mg/dL (74-106); Potassium 3.5 mmol/L (3.5-5.1); Sodium 136 mmol/L (136-145); Total Protein 6.1 g/dL (6.4-8.2)
--- OUTSIDE RECORDS SUMMARY | 2023-09-13 13:17 | XMS_ITS | CCD ---
Author Name Unknown Address [address] [place] [address] Organization [facility] Care Team Providers Care Home Care Coordinator Name Role Phone PHYSICIAN, DEFAULT Unavailable Unavailable PHYSICIAN, DEFAULT Unavailable Unavailable KIERA LOMBARDO Primary Care Physician Franky Veronica Primary Care Provider SHAIKH ELLIOTT Primary Care Physician [phone] AURELIO DURAES, TRISTIN Referring Unava ilable VERONICA, [...] Admitting Unavailable MOREJON ., CALVIN Consulting Unavailable [facility] Primary Care Unavailable WINSTON ., DR PAULINE Ring Attending Unavailable WINSTON ., DR PAULINE Ring Admitting Unavailable [facility] Primary Care Unavailable WEST, DR LEEANN Valles Consulting Unavailable MOUKARBEL, DR WALLS Admitting Unavailable MOUKARBEL, DR WALLS Attending Unavailable MOUKARBEL, DR WALLS Consulting Unavailable [facility] Primary Care Unavailable AKKINA, REMY Admitting Unavailable AKKINA, REMY Attending Unavailable WINSTON ., DR PAULINE Ring Consulting Unavailable AKKINA, REMY Consulting Unavailable REQUEST, DR NONE LISTED Primary Care Unavaila ble NILL ., DR HYMAN Admitting Unavailable NILL ., DR HYMAN Attending Unavailable NILL ., DR HYMAN Consulting Unavailable [facility] Consulting Unavailable NEFCY, BRITTANIE Consulting Unavailable [facility] Primary Care Unavailable VERGARA ., DR JASSO Admitting Unavailable VERGARA ., DR JASSO Attending Unavailable VERGARA ., DR JASSO Consulting Unavailable [facility] Primary Care Unavailable WINSTON ., DR PAULINE Ring Consulting Unavailable WINSTON ., DR PAULINE Ring Admitting Unavailable WINSTON ., DR PAULINE Ring Attending Unavailable LAKSHMIPATHY ., ROGELIO Attending Sweta vailable LAKSHMIPATHY ., ROGELIO Admitting Sweta vailable [facility] Primary Care Unavailable [facility] Primary Care Unavailable NILL ., DR HYMAN Attending Unavailable NILL ., DR HYMAN Consulting Unavailable NILL ., DR HYMAN Admitting Unavailable AGUBOSIM, ELIZ Consulting Unavailable RICKKOJOE KANDICE Consulting Unavailable [facility] Primary Care Unavailable NILL ., DR HYMAN Attending Unavailable NILL ., DR HYMAN Admitting Unavailable [facility] Primary Care Unavailable VERGARA ., DR JASSO Admitting Unavailable VERGARA ., DR JASSO Attending Unavailable VERGARA ., DR JASSO Consulting Unavailable WINSTON ., DR PUALINE Ring Attending Unavailable WINSTON ., DR PAULINE Ring Consulting Unavailable [facility] Primary Care Unavailable WINSTON ., DR PAULINE [...] Unavailable FaShaikh pearl MD Primary Care Provider [phone] ANDREA COLORADO Attending Unavailable NERISSA ORDONEZ Attending Unavailable NERISSA ORDONEZ Referring Unavailable [...] [acetaminophen-hydr ocodone] Drug Allergy Nausea and vomiting [facility] (16 sources) Acetaminophen / oxyCODONE; Translations: [acetaminophen-oxyc odone] Drug Allergy 06-03-20 16 Vomiting [facility] (19 sources) tiZANidine; Translations: [tizanidine] Drug Allergy 05-11-20 19 Mental Status Change, Vomiting, GI intolerance, Hallucinations [facility] (12 sources) traMADol; Translations: [tramadol] Drug Allergy 02-28-20 22 GI intolerance [facility] (3 sources) Acetaminophen / oxyCODONE; Translations: [OXYCODONE-ACETAMIN OPHEN] Drug Allergy 06-03-20 16 GI intolerance, Unknown [facility] Repository (2 sources) Acetaminophen / HYDROcodone [...] 16 [facility] Rep[facility] (1 source) Acetaminophen / HYDROcodone Drug Allergy 06-18-20 23 GI intolerance [facility] Medications Current Medications Medication Drug Class(es) Dates Sig (Normalized) Sig (Original) [facility] oral capsule (4 sources) Start: 06-01-2019 take 1 capsule by mouth twice daily [facility] oral capsule cap(s), Oral, BID, Refill(s) 0, Prophylaxis Start Date: 06/01/19 Status: Ordered [id number] 200 actuat albuterol 0.09 mg/actuat metered dose [...] the morning cholecalciferol (Vitamin D-3) 250 MCG (91580 UT) capsule Take 1,000 Units by mouth [...] take 1 tablet by mouth at [facility] ut ferrous sulfate 325 (65 Fe) MG tablet [...] rhamn osus GG (9 sources) Start: 04-22-2022 [facility] Refill(s) 0 Start Date: 04/22/22 Status: Ordered Start: 06-01-2019 take 1 tablet by ravi th once daily [facility] 1 tab, Oral, Daily, Refill(s) 0, [...] Daily, # 30 tab(s), Refills(s) 0, Pharmacy: [facility], 177.8, cm, 07/10/21 15:02:00 EST, Height/Length Dosing, 88.6, kg, 07/10/21 15:02:00 EST, Weight Dosing Start Date: 07/10/21 Status: Ordered Start: 07-10-2021 take 1 tablet by [facility] once daily pantoprazole 40 mg Oral EC Tab 40 mg = 1 tab(s), Oral, Daily, # 30 tab(s), Refills(s) 0, Pharmacy: [facility], 177.8, cm, 07/10/21 15:02:00 EST, Height/Length Dosing, 88.6, kg, 07/10/21 15:02:00 EST, Weight Dosing Start Date: 07/10/21 Status: Ordered pregabalin 75 mg oral capsule (12 sources) Start: 04-22-2022 take 1 capsule by mouth twice daily pregabalin 75 mg Cap 75 mg = 1 cap(s), Oral, BID, Refills(s) 0 Start Date: 04/22/22 Status: Ordered take 1 capsule by [facility] three times daily pregabalin (LYRICA) 50 [...] 04/22/22 Status: Ordered take 1 capsule by [facility] every twenty-four hours in the morning [...] every six hours as needed for pain [place] 325 mg-5 mg oral tablet 1 tab(s), [...] # 2 tab(s), Refills(s) 0, [facility]acy: [id number], 177, cm, 06/20/23 10:48:00 EST, Height/Length Dosing, 81.9, kg, 06/20/23 10:48:00 EST, Weight Dosing Start Date: 06/20/23 Status: Ordered Start: 07-26-2022 take 1 tablet by ravi th once daily Cipro 250 mg Tab 250 mg = 1 tab(s), Oral, Daily, Take 1 tablet the day before the procedure and 1 tablet after the procedure, # 2 tab(s), Refills(s) 0, Pharmacy: [facility] #[id number], 177.8, cm, 04/22/22 15:44:00 EDT, Height/Length Dosing, 85.4, kg, 04/22/22 15:44:00 EDT,... Start Date: 07/26/22 Status: Ordered Start: 07-10-2021 take 1 tablet by ravi th once daily Cipro 500 mg Tab 500 mg = 1 tab(s), Oral, Daily, Take 1 tablet 07/16/21 and 1 tablet after the procedure 07/17/21, # 2 tab(s), Refills(s) 0, Pharmacy: [facility] [facility], 177.8, cm, 07/24/20 9:23:00 EST, Height/Length [...] Coronary arteriosclerosis; Translations: [Atherosclerotic heart disease of [place] coronary artery without angina pectoris] Onset: 08-13-2017 [...] 07-03-2023 07-03-2023 Other aftercare (1 source) Other [facility] (current) drug therapy; Translations: [OTH PET CARE TECHNICIAN CURRENT DRUG THERAPY] Onset: 02-12-2022 Episodic Other aftercare (1 source) jail (current) use of aspirin; Translations: [PET CARE TECHNICIAN CURRENT USE OF ASPIRIN] Onset: 02-12-2022 Episodic Other aftercare (1 source) 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; Translations: [[facility] CURRNT USE ANTICOAGULANTS] Onset: 11-27-2021 Episodic Other aftercare (2 sources) jail (current) use of antibiotics; Translations: [jail (current) use of antibiotics] Onset: 10-18-2022 Episodic [...] for 1 year cysto/fish/cytol (bt ck)/PSA Normal [facility] Telemedicineon 08-28-2023 Telemedicine [id number] Ben Guadalupe 1935 M Date Provider Department Center 08/28/2023 NERISSA TESFAYE CARD [facility] Family History Problem Relation Age of Onset Heart failure Mother Prostate cancer Father Coronary artery disease Brother Prostate cancer Brother Family Status - Relation Status Age at Mother Father Brother Level of Service:94575 [place] PHYS/QHP TELEPHONE EVALUATION 11-20 MIN Reason for Visit and Comments: Atrial Fibrillation [80] Hypertension [037914] Congestive Heart Failure [127] Normal [facility] Consent for Procedure/Surger yon 08-25-2023 Consent for Procedure/Surgery [id number]#[id number] Normal [facility] IntraOperative Documentson 0 08-25-2023 IntraOperative Documents [id number]#1.00TIFF Normal [facility] CHEMISTRYOrdered By: SYSTEM SYSTEM on 08-19-2023 PSA Total 3.7 ng/mL High 0.1 - 3.5 ng/mL [facility] Comment on above: Interpretive Data: T he concentration of PSA determined by different manufacturers can vary due to differences in assay methods and reagent specificity. Values obtained from different assay methods cannot be used interchangeably. The methodology used for this result was chemiluminescence using [employer]'s Access Hybritech PSA reagent. Consent for Treatmenton 08-07 Consent for Treatment [id number]#1.00TIFF [facility] Consent for Treatment [id number]#1.00TIFF [facility] Operative Reporton Operative Report Patient: BEN GUADALUPE [...] coverage, Follow up arranged. Normal [facility] Comment on above: Result Comment: Elec tronically Signed By: Mekhi VERGARA MD\.br\Date and Time Signed: 08/19/23 16:18 EST PSA Totalon 08-19-2023 PSA Total 3.7 ng/mL High 0.1-3.5 [facility] Comment on above: Result Comment: The concentration of PSA determined by different manufacturers can vary due to differences in assay methods and reagent specificity. Values obtained from different assay methods cannot be used interchangeably. The methodology used for this result was chemiluminescence using [employer]'s Access Hybritech PSA reagent. Performed By: #### 1 [id number] ####[facility] [id number] [place] [address] Reminderson 07-03-2023 Reminders - From: Alaina Dickson To: EU - Recalls Ursula; Cc: Alaina Dickson; Sent: 10/16/2022 14:04:20 EDT Show up: 06/06/2023 14:04:00 EST Subject: cysto/fish/cytol Due Date/Time: 06/23/2023 14:04:00 EST Reminder/Recall Patient is due in Jul 2023 for 1 year cysto/fish/cytol (bt ck) l/m on [facility] per pt request from appt 06/20/23.LG Spoke to Milly, pt sched for 07/22/23 at [facility]. Confirmation mailed. 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 Urinary retention Prostatitis BPH with urinary obstruction Urge incontinence History of bladder cancer Tests Performed Urnls Dip Stick Auto w/o Microscopy POC 53454 Your Care Team Attending Physician - Mekhi VERGARA MD Primary Care Physician - LEXI WORKMAN, This Is Your Medications List ciprofloxacin (Cipro 500 mg Tab) doxycycline (doxycycline hyclate 100 mg Tab) Contact prescribing physician if questions or concerns acetaminophen-hydrocodone ([place] 325 mg-5 mg oral tablet) albuterol (ProAir [...] (glipiZIDE 5 mg Tab) lactobacillus rhamnosus GG ([facility]) levothyroxine (levothyroxine 50 mcg (0.05 [...] with URSULA WORKMAN, GO Scott When: Where: [address] [place] [address]- Medications What How Much When Instructions New ciprofloxacin (Cipro 500 mg Tab) 1 Tablets By Mouth As Directed Pt to take 1 tab the day before procedure and the 2nd tab the day of procedure once completed. Pickup at [facility] #15101 New doxycycline (doxycycline hyclate 100 mg Tab) 1 Tablets By Mouth 2 times a day Duration: 2 Weeks Pickup at [facility] #24052 Unchanged acetaminophen-hydrocodone ([place] 325 mg-5 mg oral tablet) 1 Tablets [...] (more content not included)... Normal [facility] Patient Educationon 06-20-20 23 Patient [...] these instructions at home: Medicines ? Take mqqz-ppi-zuwqagb and prescription medicines only as told by [...] Where to find more information ? [employer] [place] of Diabetes and Digestive and Kidney Diseases: (more content not included)... Normal [facility] Urology Office/Clinic Noteon 06-20-2023 Urology [...] recent PSA. Pt has been to the [facility] 3x since 06/10/23 w/ complaints of [...] of urine, unspecified) Pt has been to [facility] 3x since 06/10/23 w/ complaints of [...] Contact Information Mekhi VERGARA MD, URL [address] [place] [address]- Additional Instructions: Schedule cysto for b.t. check [...] (more content not included)... Normal [facility] Comment on above: Result Comment: Elec tronically Signed By: Mekhi VERGARA MD\.br\Date and Time Signed: 06/20/23 11:33 EST\.br\Electronically Co-Signed By: Silke Dupont\.br\Date and Time Co-Signed: 06/20/23 11:32 EST Office Visiton 03-07-2023 Follow-up visit [id number] Ben Guadalupe 1935 M Date Provider Department Center 03/07/2023 Jonathon-ANDREA [place]ADO CARD [facility] Family History Problem Relation Age of Onset Heart failure Mother Prostate cancer Father Coronary artery disease Brother Prostate cancer Brother Family Status - Relation Status Age at Mother Father Brother Level of Service:45107 [place] OFFICE/OUTPATIENT ESTABLISHED MOD MDM 30-39 MIN Normal [facility] Ambulatory Visit Summaryon 0 12-23-2022 Ambulatory Visit Summary BEN GUADALUPE :1935 Visit Date:12/23/2022 Ambulatory Visit Instructions Your Diagnosis Rising PSA 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 Urge incontinence BPH with urinary obstruction History of bladder cancer Kidney stones Tests Performed Urnls Dip Stick Auto w/o Microscopy POC 86157 Your Care Team Attending Physician - Mekhi VERGARA MD Primary Care Physician - SHAIKH ELLIOTT This Is Your Medications List Contact prescribing physician if questions or concerns acetaminophen-hydrocodone ([place] 325 mg-5 mg oral tablet) albuterol (ProAir [...] (Lasix 40 mg Tab) lactobacillus rhamnosus GG ([facility]) levothyroxine (levothyroxine 50 mcg (0.05 [...] WORKMAN, Mekhi [place] Where: [facility] Patient Educationon 12-24-19 Patient Education Oncology Cancer [...] if anything looks unusual. Men with a czfnsq-fkzj-zbqjxg risk for skin cancer may want to see a billing collections specialist (clinical liaison) for an annual body check. What are the benefits of screening? Cancer screening is done to look for cancer in the very early stages, before it spreads and becomes harder to treat and before you would start to notice symptoms. Finding cancer early improves the chances of successful treatment. It ma (more content not included)... Normal [facility] Urology Office/Clinic Noteon 12-23-2022 Urology [...] URL [facility] [address] [place] [address]- Additional Instructions: 6 mos psa Patient Education [...] (more content not included)... Normal [facility] Comment on above: Result Comment: Elec tronically Signed By: Mekhi VERGARA MD\.br\Date and Time Signed: 12/23/22 13:49 EDT\.br\Electronically Co-Signed By: Tierra Anderson\.br\Date and Time Co-Signed: 12/23/22 13:48 EDT POINT OF CARE GLUCOSEon 10-06 Glucose [Mass/Vol] 230 mg/dL Critically high 74-[address] [facility] Comment on above: Performed By: #### P SAD #### [facility] [address] [address] [address] Mason Astudillo Office Visiton 10-18-2022 Follow-up visit [id number] Ben Guadalupe 1935 Date Provider Department Center 10/18/2022 NERISSA TESFAYE CARD [facility] Family History Problem Relation Age of Onset Heart failure Mother Prostate cancer Father Coronary artery disease Brother Prostate cancer Brother Family Status - Relation Status Age at Mother Father Brother Level of Service:29093 [place] OFFICE/OUTPATIENT ESTABLISHED LOW [facility] 20-29 MIN Reason for Visit and Comments: Coronary Artery Disease [187] Atrial Fibrillation [80] Normal [facility] ANESon 10-11-2022 ANES -------- Attestation signed by [...] 10/11/22 0900 Procedure: TRANSESOPHAGEAL ECHO (KINZA) Location: [facility] Vascular [...] fellow and attending. Additional Equipment Requests Normal [facility] HPon 10-11-2022 HP -------- Attestation signed by [...] there are no changes to the H&P. [facility] Provider Letteron 09-13-2022 Provider Letter (Inserted Image. Sweta ble to display) September 13, 2022 BEN GUADALUPE [address] [place] [phone] BEN GUADALUPE 1935 Dear Mr. Guadalupe, We [...] prompt attention to this matter. Please call [phone] option 3 to be rescheduled. Sincerely, [facility] [address] [facility] [place] [address] [facility] HPon 09-11-2022 [facility] Cardiology - [facility] Subjective Ben Guadalupe is a 86 [...] and anxiety (CMS/HCC) Sleep apnea Intracranial hemorrhage ([facility]/HCC) History of DVT (deep vein thrombosis) [...] lower le (more content not included)... Normal [facility] POINT OF CARE GLUCOSEon 01-0 Glucose [Mass/Vol] 203 mg/dL Critically high 74-[address] [facility] Comment on above: Performed By: #### U A #### [facility] [address] [address] [address] Mason Astudillo ANES POSTPROC EVALon 022 ANES POSTPROC EVAL HNO ID: [id number] Author: Kandice Guadalupe MD Service: ? Author Type: Physician Type: Anesthesia Postprocedure Evaluation Filed: 05/17/2022 2:13 PM Note Text: POST ANESTHESIA EVALUATION NOTE : 1935 Procedure Summary Date: 05/17/22 Room / Location: [address] Anesthesia Start: 954 Anesthesia Stop: 1201 [...] with this procedure. Documented by Minesh Levy APRN.SECURITY RISK ANALYST 05/17/2022 12:02 PM EST SIGNATURE: Kandice Guadalupe MD PATIENT NAME: Ben Guadalupe DATE: May 17, 2022 TIME: 2:13 PM CSN: [id number] Normal [facility] ANES PRE-OPon 05-17-2022 ANES PRE-OP HNO ID: [id number] Author: Kandice Guadalupe MD Service: ? Author [...] mcg/actuation na (more content not included)... Normal [facility] BRIEF OP NOTon 05-17-2022 BRIEF OP NOT HNO ID: [id number] Author: Tristin Wilcox MD, PhD Service: Colorectal Author Type: Physician Type: Brief Op Note Filed: 05/17/2022 11:34 AM Note Text: BRIEF OPERATIVE NOTE - COLORECTAL SURGERY Log ID: [id number] Surgery/Procedure Date: 05/17/2022 Incision/Procedure Start Time: 10:17 AM Incision Close/Procedure End Time: 11:27 AM Surgeon(s) and Language Assistant(s): Surgeon(s) and Role: * Tristin Wilcox MD, [...] May 17, 2022 TIME: 11:30 AM Normal [facility] Gas and Carbon monoxide pane l (BldV)on 05-17-2022 BASE DEFICIT, VENOUS -2 mmol/L Normal -2-0 [facility] Comment on above: Order Comment: Speci men Type: VENOUS BLOOD SPECIMENOrdering Facility: [facility] Address: [address] [place], [place] [address] Performed By: #### 2 4344-4 ####[facility] LABCLIA [id number] [facility] [id number] [place] [address] [place] Body temperature 97.52 [degF] Normal [facility] Comment on above: Order Comment: Speci men Type: VENOUS BLOOD SPECIMENOrdering Facility: [facility] Address: [address] [address] Performed By: #### 2 4344-4 ####[facility] LABCLIA [id number] [place] [address] [place] Calcium.ionized (Bld) [Mass/Vol] 1.17 mmol/L Normal 1.08-1.30 [facility] Comment on above: Order Comment: Speci men Type: VENOUS BLOOD SPECIMENOrdering Facility: [facility] Address: [address] [place] [address] Performed By: #### 2 4344-4 ####[facility] LABIA [id number] [place] [address] [place] Calcium.ionized adjusted to pH 7.4 (BldA) [Moles/Vol] 1.17 mmol/L Normal 1.08-1.30 [facility] Comment on above: Order Comment: Speci men Type: VENOUS BLOOD SPECIMENOrdering Facility: [facility] Address: [address] [place] [address] Performed By: #### 2 4344-4 ####[facility] LABIA [id number] [place] [address] [place] Carboxyhemoglobin (BldV) [Mass fraction] 1.4 % Normal 0.0-2.0 [facility] Comment on above: Order Comment: Speci men Type: VENOUS BLOOD SPECIMENOrdering Facility: [facility] Address: [address] [place], [place] [address] Result Comment: Carb oxyhemoglobin Reference Range for Smokers: 2.0-8.0% Performed By: #### 2 4344-4 ####[facility] LABIA [id number] [place] [address] [place] CO2 (BldV) [Partial pressure] 37 mm[Hg] Low 42-55 [facility] Comment on above: Order Comment: Speci men Type: VENOUS BLOOD SPECIMENOrdering Facility: [facility] Address: [address] Performed By: #### 2 4344-4 ####[facility] LABCLIA [id number] [place] [address] [place] CO2 [Moles/Vol] 23 mmol/L Low 25-29 [facility] Comment on above: Order Comment: Speci men Type: VENOUS BLOOD SPECIMENOrdering Facility: [facility] Address: [address] Performed By: #### 2 4344-4 ####[facility] LABCLIA [id number] [place] [address] [place] CO2 adjusted to patient's actual temperature (BldV) [Partial pressure] 35 mmHg Low 42-55 [facility] Comment on above: Order Comment: Speci men Type: VENOUS BLOOD SPECIMENOrdering Facility: [facility] Address: [address] Performed By: #### 2 4344-4 ####[facility] LABCLIA [id number] [place] [address] [place] Glucose [Mass/Vol] 198 mg/dL High 60-105 [facility] Comment on above: Order Comment: Speci men Type: VENOUS BLOOD SPECIMENOrdering Facility: [facility] Address: [address] Performed By: #### 2 4344-4 ####[facility] LABCLIA [id number] [place] [address] [place] HCO3 (Bld) [Moles/Vol] 22 mmol/L Low 24-28 [facility] Comment on above: Order Comment: Speci men Type: VENOUS BLOOD SPECIMENOrdering Facility: [facility] Address: [address] Performed By: #### 2 4344-4 ####[facility] LABCLIA [id number] [place] [address] [place] Hematocrit (Bld) [Volume fraction] 36.4 % Low 39.0-51.0 [facility] Comment on above: Order Comment: Speci men Type: VENOUS BLOOD SPECIMENOrdering Facility: [facility] Address: [address] [place] [address] Performed By: #### 2 4344-4 ####[facility] [id number] [place] [address] [place] Hemoglobin (Bld) [Mass/Vol] 11.8 g/dL Low 13.0-17.0 [facility] Comment on above: Order Comment: Speci men Type: VENOUS BLOOD SPECIMENOrdering Facility: [facility] Address: [address] [place] [address] Performed By: #### 2 4344-4 ####[facility] [id number] [place] [address] [place] Lactate [Moles/Vol] 1.9 mmol/L Normal 0.5-2.2 [facility] Comment on above: Order Comment: Speci men Type: VENOUS BLOOD SPECIMENOrdering Facility: [facility] Address: [address] [place], [place] [address] Performed By: #### 2 4344-4 ####[facility] [id number] [place] [address] [place] Methemoglobin (Bld) [Mass fraction] 1.1 % Normal 0.0-1.5 [facility] Comment on above: Order Comment: Speci men Type: VENOUS BLOOD SPECIMENOrdering Facility: [facility] Address: [address] [place], [place] [address] Performed By: #### 2 4344-4 ####[facility] [id number] [place] [address] [place] O2 THERAPY RA=Room Air Normal [facility] Comment on above: Order Comment: Speci men Type: VENOUS BLOOD SPECIMENOrdering Facility: [facility] Address: [address] Performed By: #### 2 4344-4 ####[facility] LABCLIA [id number] [place] [address] [place] Oxygen (BldV) [Partial pressure] 50 mm[Hg] High 35-45 [facility] Comment on above: Order Comment: Speci men Type: VENOUS BLOOD SPECIMENOrdering Facility: [facility] Address: [address] Performed By: #### 2 4344-4 ####[facility] LABCLIA [id number] [place] [address] [place] Oxygen adjusted to patient's actual temperature (BldV) [Partial pressure] 48 mmHg High 35-45 [facility] Comment on above: Order Comment: Speci men Type: VENOUS BLOOD SPECIMENOrdering Facility: [facility] Address: [address] Performed By: #### 2 4344-4 ####[facility] LABCLIA [id number] [place] [address] [place] Oxygen saturation in Venous blood 82 % Normal 60-85 [facility] Comment on above: Order Comment: Speci men Type: VENOUS BLOOD SPECIMENOrdering Facility: [facility] Address: [address] [place] [address] Performed By: #### 2 4344-4 ####[facility] LABCLIA [id number] [place] [address] [place] Oxyhemoglobin (BldV) [Mass fraction] 80 % Normal 60-85 [facility] Comment on above: Order Comment: Speci men Type: VENOUS BLOOD SPECIMENOrdering Facility: [facility] Address: [address] [place] [address] Performed By: #### 2 4344-4 ####[facility] LABCLIA [id number] [place] [address] [place] pH (BldV) 7.39 [pH] Normal 7.32-7.42 [facility] Comment on above: Order Comment: Speci men Type: VENOUS BLOOD SPECIMENOrdering Facility: [facility] Address: [address] [place] [address] Performed By: #### 2 4344-4 ####[facility] LABIA [id number] [address] STATES [facility] pH adjusted to patient's actual temperature (BldV) 7.40 Normal 7.32-7.42 [facility] Comment on above: Order Comment: Speci men Type: VENOUS BLOOD SPECIMENOrdering Facility: [facility] Address: [address] [place] [address] Performed By: #### 2 4344-4 ####[facility] LABIA [id number] [place] [address] [place] Potassium [Moles/Vol] 2.9 mmol/L Low 3.5-5.0 [facility] Comment on above: Order Comment: Speci men Type: VENOUS BLOOD SPECIMENOrdering Facility: [facility] Address: [address] [place] [address] Performed By: #### 2 4344-4 ####[facility] LABIA [id number] [address] [place] Sodium [Moles/Vol] 137 mmol/L Normal 136-144 [facility] Comment on above: Order Comment: Speci men Type: VENOUS BLOOD SPECIMENOrdering Facility: [facility] Address: [address] [place] [address] Performed By: #### 2 4344-4 ####[facility] LABIA [id number] [place] [address] [place] OPERATIVE NOon 05-17-2022 OPERATIVE NO HNO ID: [id number] Author: Tristin Wilcox MD, PhD Service: Colorectal Author Type: Physician Type: Operative Report Filed: 05/31/2022 2:52 PM Note Text: OPERATIVE REPORT LOG ID: [id number] SURGERY DATE: 05/17/2022 INCISION/PROCEDURE START TIME: 10:17 AM INCISION CLOSE/PROCEDURE END TIME: 11:27 AM PREOPERATIVE DIAGNOSIS: Prolapsing, symptomatic, large internal and external hemorrhoids. Colonic polyps. POSTOPERATIVE DIAGNOSIS: Grade 4; Prolapsing, symptomatic, large internal and external hemorrhoids. Colonic polyps. Surgeon(s)/Proceduralist(s) and Language Assistant(s): Surgeon(s) and Role: * Tristin Wilcox MD, [...] with assistance. PATIENT NAME: Ben Guadalupe Normal [facility] POTASSIUM BLDon 05-17-2022 Potassium [Moles/Vol] 3.0 mmol/L Low 3.7-5.1 [facility] Comment on above: Order Comment: Speci men Type: BLOOD SPECIMENOrdering Facility: [facility] Address: [address] [place] [address] Performed By: #### K 1 ####[facility] LABCLIA [id number] [address] SURGICAL PATHOLOGYon 022 CASE REPORT Normal [facility] Comment on above: Order Comment: Speci men Type: TISSUE SPECIMENOrdering Facility: [facility] Address: [address] [place] [address] Result Comment: Surg [facility] Pathology Report Case: [id number] Authorizing Provider: Tristin Wilcox, Collected: 05/17/2022 10:25 AM , PhD Ordering Location: Admitting Received: 05/17/2022 01:44 PM Pathologist: Daryn June MD Specimens: A) - COLON POLYP, RIGHT COLON POLYP B) - COLON POLYP, LEFT COLON POLYP C) - RECTAL POLYP D) - HEMORRHOID, left lateral E) - HEMORRHOID, right posterior Performed By: #### S ####[facility] LABCLIA [id number] [address] OF [facility] LABCLIA [id number] [address] OF [facility] CLINICAL HISTORY Normal [facility] Comment on above: Order Comment: Speci men Type: TISSUE SPECIMENOrdering Facility: [facility] Address: [address] [place] [address] Result Comment: Pre- op diagnosis: Fourth degree hemorrhoids [K64.3] Performed By: #### S ####[facility] LABCLIA [id number] [address] OF [facility] LABCLIA [id number] [address] OF [facility] FINAL DIAGNOSIS Normal [facility] Comment on above: Order Comment: Speci men Type: TISSUE SPECIMENOrdering Facility: [facility] Address: [address] [place] [address] Result Comment: A. C olon, right, polyp, biopsy: - Tubular adenoma. B. Colon, left, polyp, biopsy: - Tubular adenoma. C. Rectum, polyp, biopsy: - Tubular adenoma. D. Anus, left lateral, hemorrhoid, excision: - Fibroepithelial polyp. E. Anus, right posterior, hemorrhoid, excision: - Dilated hemorrhoidal varices. Performed By: #### S ####[facility] LABCLIA [id number] [address] LABCLIA [id number] [address] FINAL PERFORMING LAB Normal [facility] Comment on above: Order Comment: Speci men Type: TISSUE SPECIMENOrdering Facility: [facility] Address: [address] [place] [address] Result Comment: Diag nostic interpretation performed at [facility], [address] [place] [address] CLIA# [id number] Cabinet And Trim Installer: Nga Schultz M.D. Performed By: #### S ####[facility] LABCLIA [id number] [address] LABCLIA [id number] [address] OF [facility] GROSS DESCRIPTION A. COLON POLYP Normal [facility] Comment on above: Order Comment: Speci men Type: TISSUE SPECIMENOrdering Facility: [facility] Address: [address] [place], [place] [address], [place] [id number] Result Comment: Rece ived in formalin is [...] 0.1 cm. Totally submitted in one cassette. [facility] May 17, 2022 3:41 PM Gross examination performed at [facility], [address] [place] [address] D. HEMORRHOID Received fresh designated left lateral is a cason-busby portion of skin that measures 4.5 x 1.5 x 1 cm. Sectioning through the specimen reveals hemorrhagic cut surfaces. Side Seam Envelope Machine Operator sections are submitted in 1 cassette. WE May 17, 2022 3:17 PM Gross examination performed at [facility], [address] [place] [address] E. HEMORRHOID Received fresh designated right posterior is a pink-cason portion of skin that measures 3.9 x 0.6 x 0.6 cm. Sectioning through the specimen reveals hemorrhagic cut surfaces. Side Seam Envelope Machine Operator sections are submitted in 1 cassette. WE May 17, 2022 3:19 PM Gross examination performed at [facility], [facility] [place] [address] Performed By: #### S ####[facility] LABCLIA [id number] [address] STATES OF [facility] LABCLIA [id number] [place] [id number] [facility] Oralia 05-16-2022 CNPN Telephone (WINTERBro) BEN GUADALUPE ([id number]) 1935 M Date Time Provider Department 05/16/22 [...] (HCC) [I62.9] 05/10/2022 PAF (paroxysmal atrial fibrillation) ([facility]) [I48*03/18/2022 Sleep apnea [G47.30] 05/10/2022 History of DVT (deep vein thrombosis) [Z86.718] 05/10/2022 Encounter Status:Closed by DELICIA FULLER on 05/16/22 [facility] Telephone (KADIE) BEN GUADALUPE ([id number]) 1935 M Date Time Provider Department 05/16/22 [...] PA-C - Fully Assessed 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] Prescriptions as of 05/16/2022 - famotidine (PEPCID) [...] by MARIA LUISA GARCIA on 05/16/22 Normal [facility] CBC panel Auto (Bld)on 05-10 Erythrocyte distribution width (RBC) [Ratio] 14.1 % Normal 11.5-15.0 [facility] Comment on above: Order Comment: Speci men Type: BLOOD SPECIMENOrdering Facility: [facility] Address: [address] [place] [address] Performed By: #### 5 8410-2 ####[facility] [id number] [place] [address] [place] Hematocrit (Bld) [Volume fraction] 38.9 % Low 39.0-51.0 [facility] Comment on above: Order Comment: Speci men Type: BLOOD SPECIMENOrdering Facility: [facility] Address: [address] [place] [address] Performed By: #### 5 8410-2 ####[facility] LABIA [id number] [place] [address] [place] Hemoglobin (Bld) [Mass/Vol] 12.2 g/dL Low 13.0-17.0 [facility] Comment on above: Order Comment: Speci men Type: BLOOD SPECIMENOrdering Facility: [facility] Address: [address] [place] [address] Performed By: #### 5 8410-2 ####[facility] LABIA [id number] [place] [address] [place] MCH (RBC) [Entitic mass] 28.4 pg Normal 26.0-34.0 [facility] Comment on above: Order Comment: Speci men Type: BLOOD SPECIMENOrdering Facility: [facility] Address: [address] [place] [address] Performed By: #### 5 8410-2 ####[facility] LABIA [id number] [address] MCHC (RBC) [Mass/Vol] 31.4 g/dL Normal 30.5-36.0 [facility] Comment on above: Order Comment: Speci men Type: BLOOD SPECIMENOrdering Facility: [facility] Address: [address] [place] [address] Performed By: #### 5 8410-2 ####[facility] LABIA [id number] [address] STATES OF [facility] MCV (RBC) [Entitic vol] 90.5 fL Normal 80.0-100.0 [facility] Comment on above: Order Comment: Speci men Type: BLOOD SPECIMENOrdering Facility: [facility] Address: [address] [place] [address] Performed By: #### 5 8410-2 ####[facility] LABIA [id number] [address] [place] Nucleated RBC (Bld) [#/Vol] 10*3/uL Normal <0.01 [facility] Comment on above: Order Comment: Speci men Type: BLOOD SPECIMENOrdering Facility: [facility] Address: [address] [place], [place] [address] Performed By: #### 5 8410-2 ####[facility] LABIA [id number] [place] [address] [place] Platelet mean volume (Bld) [Entitic vol] 10.9 fL Normal 9.0-12.7 [facility] Comment on above: Order Comment: Speci men Type: BLOOD SPECIMENOrdering Facility: [facility] Address: [address] [place], [place] [address] Performed By: #### 5 8410-2 ####[facility] LABIA [id number] [place] [address] [place] Platelets (Bld) [#/Vol] 135 10*3/uL Low 150-400 [facility] Comment on above: Order Comment: Speci men Type: BLOOD SPECIMENOrdering Facility: [facility] Address: [address] [place] [address] Performed By: #### 5 8410-2 ####[facility] LABCLIA [id number] [place] [address] [place] RBC (Bld) [#/Vol] 4.30 10*6/uL Normal 4.20-6.00 [facility] Comment on above: Order Comment: Speci men Type: BLOOD SPECIMENOrdering Facility: [facility] Address: [address] [place] [address] Performed By: #### 5 8410-2 ####[facility] LABCLIA [id number] [place] [address] [place] WBC (Bld) [#/Vol] 4.75 10*3/uL Normal 3.70-11.00 [facility] Comment on above: Order Comment: Speci men Type: BLOOD SPECIMENOrdering Facility: [facility] Address: [address] [place] [address] Performed By: #### 5 8410-2 ####[facility] LABCLIA [id number] [place] [address] [place] [facility] CONFIRM BLOOD TYPEon 022 ABO A Normal [facility] Comment on above: Order Comment: Speci men Type: BLOOD SPECIMENOrdering Facility: [facility] Address: [address] [place] [address] Performed By: #### C ONABO ####[facility] BLOOD BANKCLIA [id number] [place] [address] [place] Rh Nom (Bld) Negative Normal [facility] Comment on above: Order Comment: Speci men Type: BLOOD SPECIMENOrdering Facility: [facility] Address: [address] Performed By: #### C ONABO ####[facility] BLOOD BANKCLIA [id number] [place] [address] [place] Comprehensive metabolic 2000 panelon 05-10-2022 Albumin [Mass/Vol] 4.4 g/dL Normal 3.9-4.9 [facility] Comment on above: Order Comment: Speci men Type: BLOOD SPECIMENOrdering Facility: [facility] Address: [address] [place] [address] Performed By: #### 2 4323-8 ####[facility] LABCLIA [id number] [place] [address] [place] ALP [Catalytic activity/Vol] 54 U/L Normal 38-113 [facility] Comment on above: Order Comment: Speci men Type: BLOOD SPECIMENOrdering Facility: [facility] Address: [address] [place] [address] Performed By: #### 2 4323-8 ####[facility] LABCLIA [id number] [place] [address] [place] ALT [Catalytic activity/Vol] 55 U/L High 10-54 [facility] Comment on above: Order Comment: Speci men Type: BLOOD SPECIMENOrdering Facility: [facility] Address: [address] [place] [address] Performed By: #### 2 4323-8 ####[facility] LABCLIA [id number] [place] [address] [place] Anion gap [Moles/Vol] 12 mmol/L Normal 9-18 [facility] Comment on above: Order Comment: Speci men Type: BLOOD SPECIMENOrdering Facility: [facility] Address: [address] [place] [address] Performed By: #### 2 4323-8 ####[facility] LABCLIA [id number] [place] [address] [place] AST [Catalytic activity/Vol] 27 U/L Normal 14-40 [facility] Comment on above: Order Comment: Speci men Type: BLOOD SPECIMENOrdering Facility: [facility] Address: [address] Performed By: #### 2 4323-8 ####[facility] LABCLIA [id number] [place] [address] [place] Bilirubin [Mass/Vol] 0.3 mg/dL Normal 0.2-1.3 [facility] Comment on above: Order Comment: Speci men Type: BLOOD SPECIMENOrdering Facility: [facility] Address: [address] Performed By: #### 2 4323-8 ####[facility] LABCLIA [id number] [place] [address] [place] Calcium [Mass/Vol] 9.1 mg/dL Normal 8.5-10.2 [facility] Comment on above: Order Comment: Speci men Type: BLOOD SPECIMENOrdering Facility: [facility] Address: [address] Performed By: #### 2 4323-8 ####[facility] LABCLIA [id number] [place] [address] [place] Chloride [Moles/Vol] 100 mmol/L Normal 97-105 [facility] Comment on above: Order Comment: Speci men Type: BLOOD SPECIMENOrdering Facility: [facility] Address: [address] Performed By: #### 2 4323-8 ####[facility] LABCLIA [id number] [place] [address] [place] CO2 [Moles/Vol] 29 mmol/L Normal 22-30 [facility] Comment on above: Order Comment: Speci men Type: BLOOD SPECIMENOrdering Facility: [facility] Address: [address] Performed By: #### 2 4323-8 ####[facility] LABCLIA [id number] [place] [address] [place] Creatinine [Mass/Vol] 1.09 mg/dL Normal 0.73-1.22 [facility] Comment on above: Order Comment: Mayito borden Type: BLOOD SPECIMENOrdering Facility: [facility] Address: [address] [place] [address] Performed By: #### 2 4323-8 ####[facility] LABIA [id number] [address] OF [facility] ESTIMATED GLOMERULAR FILTRATION RATE 67 mL/min/1.73m??? Normal >=60 [facility] Comment on above: Order Comment: Mayito borden Type: BLOOD SPECIMENOrdering Facility: [facility] Address: [address] [place] [address] Result Comment: [place] mated Glomerular Filtration Rate [...] actual GFR. Performed By: #### 2 4323-8 ####[facility] LABIA [id number] [place] [address] [place] Glucose [Mass/Vol] 217 mg/dL High 74-99 [facility] Comment on above: Order Comment: Mayito borden Type: BLOOD SPECIMENOrdering Facility: [facility] Address: [address] [place] [address] Result Comment: The [place] [employer] Association (ADA) provides guidance for cutoff [...] Standards of Medical Care in Diabetes 2016, [place] [employer]. Diabetes Care. 2016.39(Suppl 1). Performed By: #### 2 4323-8 ####[facility] LABCLIA [id number] [place] [address] [place] Potassium [Moles/Vol] 3.2 mmol/L Low 3.7-5.1 [facility] Comment on above: Order Comment: Speci men Type: BLOOD SPECIMENOrdering Facility: [facility] Address: [address] [place] [address] Performed By: #### 2 4323-8 ####[facility] LABIA [id number] [place] [address] [place] Protein [Mass/Vol] 6.4 g/dL Normal 6.3-8.0 [facility] Comment on above: Order Comment: Speci men Type: BLOOD SPECIMENOrdering Facility: [facility] Address: [address] [place] [address] Performed By: #### 2 4323-8 ####[facility] LABIA [id number] [place] [address] [place] Sodium [Moles/Vol] 141 mmol/L Normal 136-144 [facility] Comment on above: Order Comment: Speci men Type: BLOOD SPECIMENOrdering Facility: [facility] Address: [address] Performed By: #### 2 4323-8 ####[facility] LABIA [id number] [place] [address] [place] Urea nitrogen [Mass/Vol] 26 mg/dL High 9-24 [facility] Comment on above: Order Comment: Speci men Type: BLOOD SPECIMENOrdering Facility: [facility] Address: [address] Performed By: #### 2 4323-8 ####[facility] [id number] [place] [id number] [facility] ECG COMPLETEon 05-10-2022 ECG COMPLETE Ventricular Rate : 7 6 BPM Atrial Rate : 76 BPM P-R Interval : 130 ms QRS Duration : 134 ms Q-T Interval : 442 ms QTC Calculation(Bazett) : 497 ms Calculated P Barron[place] : 37 degrees Calculated R [place] : 64 degrees Calculated T [place] : -10 degrees NORMAL SINUS RHYTHM COMPLETE RIGHT BUNDLE BRANCH BLOCK INFERIOR T WAVE ABNORMALITY ABNORMAL ECG Confirmed by YENNI TANNER MD ([id number]) on 05/14/2022 7:11:13 PM NAME : BEN GUADALUPE PID : [id number] : 1935 Gender : Male Race : ORD : [id number] Procedure Date : May 10 2022 11:57:54 Edit Date : May 14 2022 19:11:14 Diagnosis: NORMAL SINUS RHYTHM COMPLETE RIGHT BUNDLE BRANCH BLOCK INFERIOR T WAVE ABNORMALITY ABNORMAL ECG Confirmed by YENNI TANNER MD ([id number]) on 05/14/2022 7:11:13 PM Test Reason : Location : 119 : A17 Overread By : YENNI TANNER MD Edited By : YENNI TANNER MD Referred By : TRISTIN WILCOX Acquired by : CHANELLE FRANKLIN [facility] HISTORY PHYSICALon HISTORY PHYSICAL HNO ID: [id number] Author: Afia Downing PA-C Service: ? Author Type: Physician Language Assistant Type: HANDP Filed: 05/13/2022 10:05 AM Note [...] disease (HCC) 11/27/2021 Deep vein thrombosis (DVT) ([facility]) 1989 LLE- unprovoked Dementia in other diseases [...] capsule Take (more content not included)... Normal [facility] HbA1c (Bld)on 05-10-2022 Average glucose Estimated from glycated hemoglobin (Bld) [Mass/Vol] 151 mg/dL Normal [facility] Comment on above: Order Comment: Speci men Type: BLOOD SPECIMENOrdering Facility: [facility] Address: [address] [facility] [address] Result Comment: eAG: (Estimated average glucose) is a calculated value from HgbA1c and is correspondence representative of the average blood glucose level in the last 2-3 month period. Performed By: #### 5 5454-3 ####[facility] LABCLIA [id number] [address] HbA1c (Bld) [Mass fraction] 6.9 % High 4.3-5.6 [facility] Comment on above: Order Comment: Speci men Type: BLOOD SPECIMENOrdering Facility: [facility] Address: [address] [place] [address] Result Comment: [place] [place] [employer] guidelines indicate that patients with HgbA1c in the range 5.7-6.4% are at increased risk for development of diabetes, and intervention by lifestyle modification may be beneficial. HgbA1c greater or equal to 6.5% is considered diagnostic of diabetes. Performed By: #### 5 5454-3 ####[facility] LABCLIA [id number] [address] TYPE AND SCREEN,30 DAYon ABO A Normal [facility] Comment on above: Order Comment: Speci men Type: BLOOD SPECIMENOrdering Facility: [facility] Address: [address] [place] [address] Performed By: #### T SCR30 ####[facility] BLOOD BANKIA [id number] [address] HISTORICAL AB SCR STATUS Negative Normal [facility] Comment on above: Order Comment: Speci men Type: BLOOD SPECIMENOrdering Facility: [facility] Address: [address] [place] [address] Performed By: #### T SCR30 ####[facility] BLOOD BANKCLIA [id number] [address] [place] Rh Nom (Bld) Negative Normal [facility] Comment on above: Order Comment: Speci men Type: BLOOD SPECIMENOrdering Facility: [facility] Address: [address] [place] [address] Performed By: #### T SCR30 ####[facility] BLOOD BANKCLIA [id number] [address] [place] [facility] (CORSMN) BEN GUADALUPE ([id number]) 1935 M Date Time Provider Department 04/25/22 [...] Reason for Visit: Returning Patient's Call [408] 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 Normal [facility] Flexible Sigmoidoscopyon Flexible sigmoidoscopy A30 Gastrointestinal [...] previous diet. Procedure Code(s): --- Professional --- 74512, Sigmoidoscopy, flexible; diagnostic, including collection of specimen(s) by brushing or washing, when performed (separate procedure) Diagnosis Code(s): --- Professional --- K64.3, Fourth degree hemorrhoids K62.1, Rectal polyp K92.1, Melena (includes Hematochezia) K57.30, Diverticulosis of large intestine without perforation or abscess without bleeding CPT copyright 2019 [place] [employer]. All rights reserved. The codes documented in this report are preliminary and upon physician coder review may be revised to meet current compliance requirements. Attending Participation: I personally performed the entire procedure. Scope In: Scope Out: Dr. Tristin Wilcox MD 04/17/2022 2:21:53 PM This report has been signed electronically. Number of Addenda: 0 Note Initiated On: 04/17/2022 1:38 PM Normal [facility] HISTORY PHYSICALon 2 HISTORY PHYSICAL HNO ID: [id number] Author: Tristin Wilcox MD, PhD Service: ? [...] PACC s (more content not included)... Normal [facility] SIGMOIDOSCOPYon 04-17-2022 [facility] POINT OF CARE GLUCOSEon 04-06 Glucose [Mass/Vol] 268 mg/dL Critically high 74-[address] [facility] Comment on above: Performed By: #### P OCGLUC #### [facility] [address] [place] [address] Dr. Mason Astudillo CBC AUTO DIFFon 04-11-2022 BASO # 0.0 103/ul Normal 0.0-0.1 [facility] Comment on above: Performed By: #### U A #### [facility] [address] [address] [address] Mason Astudillo Basophils/100 WBC (Bld) 0.4 % Normal 0.2-2.0 [facility] Comment on above: Performed By: #### U A #### [facility] [address] [place] [address] Dr. Mason Astudillo EO # 0.1 103/ul Normal 0.0-0.7 [facility] Comment on above: Performed By: #### U A #### [facility] [address] [address] [address] Mason Astudillo Eosinophils/100 WBC (Bld) 1.9 % Normal 0.9-7.0 [facility] Comment on above: Performed By: #### U A #### [facility] [address] [place] [address] Dr. Mason Astudillo Erythrocyte distribution width (RBC) [Ratio] 16.0 % Critically high 11.0-15.0 [facility] Comment on above: Performed By: #### U A #### [facility] [address] [place] [address] Dr. Mason Astudillo Hematocrit (Bld) [Volume fraction] 27.4 % Critically low 42.0-54.0 [facility] Comment on above: Performed By: #### U A #### [facility] [address] [place] [address] Dr. Mason Astudillo Hemoglobin (Bld) [Mass/Vol] 8.7 g/dL Critically low 14.0-18.0 [facility] Comment on above: Performed By: #### U A #### [facility] [address] [place] [address] Dr. Mason Astudillo IG # 0.03 10e3/ul Normal 0.00-0.03 [facility] Comment on above: Performed By: #### U A #### [facility] [address] [place] [address] Dr. Masno Astudillo IG % 0.6 % Critically high 0.0-0.5 [facility] Comment on above: Performed By: #### U A #### [facility] [address] [place] [address] Dr. Mason Astudillo LYMPH # 0.7 103/ul Critically low 1.2-3.8 [facility] Comment on above: Performed By: #### U A #### [facility] [address] [place] [address] Dr. Mason Astudillo Lymphocytes/100 WBC (Bld) 15.8 % Critically low 20.5-60.0 [facility] Comment on above: Performed By: #### U A #### [facility] [address] [place] [address] Dr. Mason Astudillo MANUAL DIFF REQ NO Normal [facility] Comment on above: Performed By: #### U A #### [facility] [address] [place] [address] Dr. Mason Astudillo MCH (RBC) [Entitic mass] 29.9 pg Normal 25.9-34.0 [facility] Comment on above: Performed By: #### U A #### [facility] [address] [place] [address] Dr. Mason Astudillo MCHC (RBC) [Mass/Vol] 31.8 g/dL Normal 29.9-35.2 [facility] Comment on above: Performed By: #### U A #### [facility] [address] [place] [address] Dr. Mason Astudillo MCV (RBC) [Entitic vol] 94.2 fL Critically high 80.0-94.0 [facility] Comment on above: Performed By: #### U A #### [facility] [address] [place] [address] Dr. Mason Astudillo MONO # 0.3 103/ul Normal 0.3-0.8 [facility] Comment on above: Performed By: #### U A #### [facility] [address] [place] [address] Dr. Mason Astudillo Monocytes/100 WBC (Bld) 6.9 % Normal 1.7-12.0 [facility] Comment on above: Performed By: #### U A #### [facility] [address] [place] [address] Dr. Mason Astudillo NEUT # 3.4 103/ul Normal 1.4-6.5 [facility] Comment on above: Performed By: #### U A #### [facility] [address] [place] [address] Dr. Mason Astudillo Neutrophils/100 WBC (Bld) 74.4 % Normal 43.0-75.0 [facility] Comment on above: Performed By: #### U A #### [facility] [address] [place], [place] [id number] Dr. Mason Astudillo Platelet mean volume (Bld) [Entitic vol] 10.6 fL Normal 9.5-13.5 [facility] Comment on above: Performed By: #### U A #### [facility] [address] [place] [address] Dr. Mason Astudillo PLT 117 103/ul Critically low 150-450 [facility] Comment on above: Performed By: #### U A #### [facility] [address] [place] [address] Dr. Mason Astudillo RBC 2.91 106/ul Critically low 4.70-6.10 [facility] Comment on above: Performed By: #### U A #### [facility] [address] [place] [address] Dr. Mason Astudillo WBC 4.6 103/ul Normal 4.0-11.0 [facility] Comment on above: Performed By: #### U A #### [facility] [address] [place] [address] Dr. Mason Astudillo CARDIAC STRESS TESTon 2021 [...] : DR KAVITA DANIELLE M.D. Admission #: [id number] Family : Order #: [id number] CLICK HERE TO VIEW EXAM RADIOLOGY REPORT [...] MD on 03/27/2022 at 08:14 Normal [facility] CBC AUTO DIFFon 03-18-2022 BASO # 0.0 103/ul Normal 0.0-0.1 [facility] Comment on above: Performed By: #### P OCGLUC #### [facility] [address] [place] [address] Dr. Mason Astudillo Basophils/100 WBC (Bld) 0.5 % Normal 0.2-2.0 [facility] Comment on above: Performed By: #### P OCGLUC #### [facility] [address] [place] [address] Dr. Mason Astudillo EO # 0.1 103/ul Normal 0.0-0.7 [facility] Comment on above: Performed By: #### P OCGLUC #### [facility] [address] [place] [address] Dr. Mason Astudillo Eosinophils/100 WBC (Bld) 2.3 % Normal 0.9-7.0 [facility] Comment on above: Performed By: #### P OCGLUC #### [facility] [address] [place] [address] Dr. Mason Astudillo Erythrocyte distribution width (RBC) [Ratio] 17.2 % Critically high 11.0-15.0 [facility] Comment on above: Performed By: #### P OCGLUC #### [facility] [address] [place] [address] Dr. Mason Astudillo Hematocrit (Bld) [Volume fraction] 43.9 % Normal 42.0-54.0 [facility] Comment on above: Performed By: #### P OCGLUC #### [facility] [address] [place] [address] Dr. Mason Astudillo Hemoglobin (Bld) [Mass/Vol] 14.1 g/dL Normal 14.0-18.0 [facility] Comment on above: Performed By: #### P OCGLUC #### [facility] [address] [place] [address] Dr. Mason Astudillo IG # 0.04 10e3/ul Critically high 0.00-0.03 [facility] Comment on above: Performed By: #### P OCGLUC #### [facility] [address] [place] [address] Dr. Mason Astudillo IG % 0.7 % Critically high 0.0-0.5 [facility] Comment on above: Performed By: #### P OCGLUC #### [facility] [address] [place] [address] Dr. Mason Astudillo LYMPH # 1.1 103/ul Critically low 1.2-3.8 [facility] Comment on above: Performed By: #### P OCGLUC #### [facility] [address] [place] [address] Dr. Mason Astudillo Lymphocytes/100 WBC (Bld) 18.3 % Critically low 20.5-60.0 [facility] Comment on above: Performed By: #### P OCGLUC #### [facility] [address] [place] [address] Dr. Mason Astudillo MANUAL DIFF REQ NO Normal [facility] Comment on above: Performed By: #### P OCGLUC #### [facility] [address] [place] [address] Dr. Mason Astudillo MCH (RBC) [Entitic mass] 29.3 pg Normal 25.9-34.0 [facility] Comment on above: Performed By: #### P OCGLUC #### [facility] [address] [place] [address] Dr. Mason Astudillo MCHC (RBC) [Mass/Vol] 32.1 g/dL Normal 29.9-35.2 [facility] Comment on above: Performed By: #### P OCGLUC #### [facility] [address] [place] [address] Dr. Mason Astudillo MCV (RBC) [Entitic vol] 91.1 fL Normal 80.0-94.0 [facility] Comment on above: Performed By: #### P OCGLUC #### [facility] [address] [place] [address] Dr. Mason Astudillo MONO # 0.5 103/ul Normal 0.3-0.8 [facility] Comment on above: Performed By: #### P OCGLUC #### [facility] [address] [place] [address] Dr. Mason Astudillo Monocytes/100 WBC (Bld) 7.7 % Normal 1.7-12.0 [facility] Comment on above: Performed By: #### P OCGLUC #### [facility] [address] [place] [address] Dr. Mason Astudillo NEUT # 4.3 103/ul Normal 1.4-6.5 [facility] Comment on above: Performed By: #### P OCGLUC #### [facility] [address] [place] [address] Dr. Mason Astudillo Neutrophils/100 WBC (Bld) 70.5 % Normal 43.0-75.0 [facility] Comment on above: Performed By: #### P OCGLUC #### [facility] [address] [place] [address] Dr. Mason Astudillo Platelet mean volume (Bld) [Entitic vol] 9.9 fL Normal 9.5-13.5 [facility] Comment on above: Performed By: #### P OCGLUC #### [facility] [address] [place] [address] Dr. Mason Astudillo PLT 130 103/ul Critically low 150-450 [facility] Comment on above: Performed By: #### P OCGLUC #### [facility] [address] [place] [address] Dr. Mason Astudillo RBC 4.82 106/ul Normal 4.70-6.10 [facility] Comment on above: Performed By: #### P OCGLUC #### [facility] [address] [place] [address] Dr. Mason Astudillo WBC 6.1 103/ul Normal 4.0-11.0 [facility] Comment on above: Performed By: #### P OCGLUC #### [facility] [address] [place] [address] Dr. Mason Astudillo PROF CHEM 8 (BAS METB)on Anion gap [Moles/Vol] 10.8 mmol/L Normal [facility] Comment on above: Performed By: #### U A #### [facility] [address] [place] [address] Dr. Mason Astudillo Calcium [Mass/Vol] 8.8 mg/dL Normal 8.5-10.1 [facility] Comment on above: Performed By: #### U A #### [facility] [address] [place] [address] Dr. Mason Astudillo Chloride [Moles/Vol] 103 mmol/L Normal 98-107 [facility] Comment on above: Performed By: #### U A #### [facility] [address] [place] [address] Dr. Mason Astudillo CO2 [Moles/Vol] 29.9 mmol/L Normal 21.0-32.0 [facility] Comment on above: Performed By: #### U A #### [facility] [address] [place] [address] Dr. Mason Astudillo Creatinine [Mass/Vol] 1.20 mg/dL Normal 0.70-1.30 [facility] Comment on above: Performed By: #### U A #### [facility] [address] [place] [address] Dr. Mason Astudillo EGFR-AF GUAMANIAN >60 Normal >=60 [facility] Comment on above: Performed By: #### U A #### [facility] [address] [place] [address] Dr. Mason Astudillo EGFR-NON AF GUAMANIAN 58 mL/min/1.73m2 Critically low >=60 [facility] Comment on above: Performed By: #### U A #### [facility] [address] [place] [address] Dr. Mason Astudillo Glucose [Mass/Vol] 202 mg/dL Critically high 74-[address] [facility] Comment on above: Performed By: #### U A #### [facility] [address] [place] [address] Dr. Mason Astudillo Potassium [Moles/Vol] 3.7 mmol/L Normal 3.5-5.1 [facility] Comment on above: Performed By: #### U A #### [facility] [address] [place] [address] Dr. Mason Astudillo Sodium [Moles/Vol] 140 mmol/L Normal 136-145 [facility] Comment on above: Performed By: #### U A #### [facility] [address] [place] [address] Dr. Mason Astudillo Urea nitrogen [Mass/Vol] 22.0 mg/dL Critically high 7.0-18.0 [facility] Comment on above: Performed By: #### U A #### [facility] [address] [place] [address] Dr. Mason Astudillo Urea nitrogen/Creatinine [Mass ratio] 18.3 mg/mg Normal [facility] Comment on above: Performed By: #### U A #### [facility] [address] [place] [address] Dr. Mason Astudillo XR KUB 1 VIEWon [...] 25-Hydroxy 27.3 ng/mL Critically low 30.0-100.0 [facility] Comment on above: Result Comment: Masha min D deficiency has been defined by the [place] [employer] and an Endocrine Society practice guideline as a level of serum 25-OH vitamin D less than 20 ng/mL (1,2). The Endocrine Society went on to further define vitamin D insufficiency as a level between 21 and 29 ng/mL (2). 1. IOM ([place] [employer]). 2010. Dietary reference intakes for calcium and D. [place]: The National Academies Press. 2. [place] MF, [place], Ernie-Phil ROUSE, et al. Evaluation, treatment, and prevention of vitamin D deficiency: an Endocrine Society clinical practice guideline. JCEM. 2010; 96(7):1911-30. Performed By: #### A 1C #### [facility] [address] [address] [address] Mason Astudillo CBC AUTO DIFFon 02-06-2022 BASO # 0.0 103/ul Normal 0.0-0.1 [facility] Comment on above: Performed By: #### A 1C #### [facility] [address] [address] [address] Mason Astudillo Basophils/100 WBC (Bld) 0.4 % Normal 0.2-2.0 [facility] Comment on above: Performed By: #### A 1C #### [facility] [address] [address] [address] Mason Astudillo EO # 0.1 103/ul Normal 0.0-0.7 [facility] Comment on above: Performed By: #### A 1C #### [facility] [address] [place] [address] Dr. Mason Astudillo Eosinophils/100 WBC (Bld) 2.5 % Normal 0.9-7.0 [facility] Comment on above: Performed By: #### A 1C #### [facility] [address] [place] [address] Dr. Mason Astudillo Erythrocyte distribution width (RBC) [Ratio] 16.6 % Critically high 11.0-15.0 [facility] Comment on above: Performed By: #### A 1C #### [facility] [address] [place] [address] Dr. Mason Astudillo Hematocrit (Bld) [Volume fraction] 26.8 % Critically low 42.0-54.0 [facility] Comment on above: Performed By: #### A 1C #### [facility] [address] [place] [address] Dr. Mason Astudillo Hemoglobin (Bld) [Mass/Vol] 8.4 g/dL Critically low 14.0-18.0 [facility] Comment on above: Performed By: #### A 1C #### [facility] [address] [place] [address] Dr. Mason Astudillo IG # 0.12 10e3/ul Critically high 0.00-0.03 [facility] Comment on above: Performed By: #### A 1C #### [facility] [address] [place] [address] Dr. Mason Astudillo IG % 2.5 % Critically high 0.0-0.5 [facility] Comment on above: Performed By: #### A 1C #### [facility] [address] [place] [address] Dr. Mason Astudillo LYMPH # 0.9 103/ul Critically low 1.2-3.8 [facility] Comment on above: Performed By: #### A 1C #### [facility] [address] [place] [address] Dr. Mason Astudillo Lymphocytes/100 WBC (Bld) 18.1 % Critically low 20.5-60.0 [facility] Comment on above: Performed By: #### A 1C #### [facility] [address] [place] [address] Dr. Mason Astudillo MANUAL DIFF REQ NO Normal [facility] Comment on above: Performed By: #### A 1C #### [facility] [address] [place] [address] Dr. Mason Astudillo MCH (RBC) [Entitic mass] 27.7 pg Normal 25.9-34.0 [facility] Comment on above: Performed By: #### A 1C #### [facility] [address] [place] [address] Dr. Mason Astudillo MCHC (RBC) [Mass/Vol] 31.3 g/dL Normal 29.9-35.2 [facility] Comment on above: Performed By: #### A 1C #### [facility] [address] [place] [address] Dr. Mason Astudillo MCV (RBC) [Entitic vol] 88.4 fL Normal 80.0-94.0 [facility] Comment on above: Performed By: #### A 1C #### [facility] [address] [place] [address] Dr. Mason Astudillo MONO # 0.4 103/ul Normal 0.3-0.8 [facility] Comment on above: Performed By: #### A 1C #### [facility] [address] [place] [address] Dr. Mason Astudillo Monocytes/100 WBC (Bld) 9.1 % Normal 1.7-12.0 [facility] Comment on above: Performed By: #### A 1C #### [facility] [address] [place] [address] Dr. Mason Astudillo NEUT # 3.2 103/ul Normal 1.4-6.5 [facility] Comment on above: Performed By: #### A 1C #### [facility] [address] [place] [address] Dr. Mason Astudillo Neutrophils/100 WBC (Bld) 67.4 % Normal 43.0-75.0 [facility] Comment on above: Performed By: #### A 1C #### [facility] [address] [address] [address] Mason Astudillo Platelet mean volume (Bld) [Entitic vol] 10.2 fL Normal 9.5-13.5 [facility] Comment on above: Performed By: #### A 1C #### [facility] [address] [address] [address] Mason Astudillo PLT 135 103/ul Critically low 150-450 [facility] Comment on above: Performed By: #### A 1C #### [facility] [address] [address] [address] Mason Astudillo RBC 3.03 106/ul Critically low 4.70-6.10 [facility] Comment on above: Performed By: #### A 1C #### [facility] [address] [place] [address] Dr. Mason Astudillo WBC 4.7 103/ul Normal 4.0-11.0 [facility] Comment on above: Performed By: #### A 1C #### [facility] [address] [place] [address] Dr. Mason Astudillo GLYCOHEMOGLOBIN A1Con 2021 ADA RECOMMENDATION SEE BELOW Normal [facility] Comment on above: Result Comment: ADA RECOMMENDED LIMIT 4.0 - 6.0 ADA THERAPEUTIC TARGET < 7.0 ACTION SUGGESTED > 7.0 Performed By: #### A 1C #### [facility] [address] [address] [address] Mason Astudillo Glucose [Mass/Vol] 148 mg/dL Normal [facility] Comment on above: Performed By: #### A 1C #### [facility] [address] [address] [address] Mason Astudillo HbA1c (Bld) [Mass fraction] 6.8 % Critically high 4.5-6.2 [facility] Comment on above: Performed By: #### A 1C #### [facility] [address] [place] [address] Dr. Mason Astudillo POINT OF CARE GLUCOSEon 08-0 Glucose [Mass/Vol] 157 mg/dL Critically high 74-[address] [facility] Comment on above: Performed By: #### P OCGLUC #### [facility] [address] [place] [address] Dr. Mason Astudillo PROF CHEM 8 (BAS METB)on Anion gap [Moles/Vol] 10.5 mmol/L Normal [facility] Comment on above: Performed By: #### B MP #### [facility] [address] [place] [address] Dr. Mason Astudillo Calcium [Mass/Vol] 8.0 mg/dL Critically low 8.5-10.1 [facility] Comment on above: Performed By: #### B MP #### [facility] [address] [place] [address] Dr. Mason Astudillo Chloride [Moles/Vol] 105 mmol/L Normal 98-107 [facility] Comment on above: Performed By: #### B MP #### [facility] [address] [place] [address] Dr. Mason Astudillo CO2 [Moles/Vol] 27.2 mmol/L Normal 21.0-32.0 [facility] Comment on above: Performed By: #### B MP #### [facility] [address] [place] [address] Dr. Maosn Astudillo Creatinine [Mass/Vol] 1.11 mg/dL Normal 0.70-1.30 [facility] Comment on above: Performed By: #### B MP #### [facility] [address] [place] [address] Dr. Mason Astudillo EGFR-AF GUAMANIAN >60 Normal >=60 [facility] Comment on above: Performed By: #### B MP #### [facility] [address] [place] [address] Dr. Mason Astudillo EGFR-NON AF GUAMANIAN >60 Normal >=60 [facility] Comment on above: Performed By: #### B MP #### [facility] [address] [place] [address] Dr. Mason Astudillo Glucose [Mass/Vol] 174 mg/dL Critically high 74-[address] [facility] Comment on above: Performed By: #### B MP #### [facility] [address] [address] [address] Mason Astudillo Potassium [Moles/Vol] 3.7 mmol/L Normal 3.5-5.1 [facility] Comment on above: Performed By: #### B MP #### [facility] [address] [address] [address] Mason Astudillo Sodium [Moles/Vol] 139 mmol/L Normal 136-145 [facility] Comment on above: Performed By: #### B MP #### [facility] [address] [place] [address] Dr. Mason Astudillo Urea nitrogen [Mass/Vol] 19.0 mg/dL Critically high 7.0-18.0 [facility] Comment on above: Performed By: #### B MP #### [facility] [address] [place] [address] Dr. Mason Astudillo Urea nitrogen/Creatinine [Mass ratio] 17.1 mg/mg Normal [facility] Comment on above: Performed By: #### B MP #### [facility] [address] [place] [address] Dr. Mason Astduillo CBC W MANUAL DIFFon 02-06-20 22 ATYPICAL LYMPH # Normal [facility] Comment on above: Performed By: #### C BC #### [facility] [address] [place] [address] Dr. Mason Astudillo ATYPICAL LYMPH % Normal [facility] Comment on above: Performed By: #### C BC #### [facility] [address] [place] [address] Dr. Mason Astudillo BAND # 0.0 103/ul Normal 0.0-0.3 [facility] Comment on above: Performed By: #### C BC #### [facility] [address] [place] [address] Dr. Mason Astudillo BAND % 0 % Normal 0-5 [facility] Comment on above: Performed By: #### C BC #### [facility] [address] [place] [address] Dr. Mason Astudillo BASOM # 0.06 103/ul Normal 0.00-0.10 [facility] Comment on above: Performed By: #### C BC #### [facility] [address] [place] [address] Dr. Mason Astudillo BASOM % 1.0 % Normal 0.2-2.0 [facility] Comment on above: Performed By: #### C BC #### [facility] [address] [place] [address] Dr. Mason Astudillo BLAST # Normal [facility] Comment on above: Performed By: #### C BC #### [facility] [address] [place] [address] Dr. Mason Astudillo BLAST % Normal [facility] Comment on above: Performed By: #### C BC #### [facility] [address] [place] [address] Dr. Mason Astudillo CORRECTED WBC Normal 4.0-11.0 [facility] Comment on above: Performed By: #### C BC #### [facility] [address] [place] [address] Dr. Mason Astudillo EOS # 0.17 103/ul Normal 0.00-0.70 [facility] Comment on above: Performed By: #### C BC #### [facility] [address] [place] [address] Dr. Mason Astudillo EOS% 3.0 % Normal 0.9-7.0 [facility] Comment on above: Performed By: #### C BC #### [facility] [address] [place] [address] Dr. Mason Astudillo HCT 27.4 % Critically low 42.0-54.0 [facility] Comment on above: Performed By: #### C BC #### [facility] [address] [place] [address] Dr. Mason Astudillo HGB 8.6 g/dl Critically low 14.0-18.0 [facility] Comment on above: Performed By: #### C BC #### [facility] [address] [place] [address] Dr. Mason Astudillo LYMPHM # 0.56 103/ul Critically low 1.20-3.80 [facility] Comment on above: Performed By: #### C BC #### [facility] [address] [place] [address] Dr. Mason Astudillo LYMPHM% 10.0 % Critically low 20.5-60.0 [facility] Comment on above: Performed By: #### C BC #### [facility] [address] [place] [address] Dr. Mason Astudillo MCH 27.7 pg Normal 25.9-34.0 [facility] Comment on above: Performed By: #### C BC #### [facility] [address] [place] [address] Dr. Mason Astudillo MCHC 31.4 g/dl Normal 29.9-35.2 [facility] Comment on above: Performed By: #### C BC #### [facility] [address] [place] [address] Dr. Mason Astudillo MCV 88.1 fL Normal 80.0-94.0 [facility] Comment on above: Performed By: #### C BC #### [facility] [address] [place] [address] Dr. Mason Astudillo METAMYELOCYTE # Normal [facility] Comment on above: Performed By: #### C BC #### [facility] [address] [place] [address] Dr. Mason Astudillo METAMYELOCYTE % Normal [facility] Comment on above: Performed By: #### C BC #### [facility] [address] [place] [address] Dr. Mason Astudillo MONOM# 0.34 103/ul Normal 0.30-0.80 [facility] Comment on above: Performed By: #### C BC #### [facility] [address] [place] [address] Dr. Mason Astudillo MONOM% 6.0 % Normal 1.7-12.0 [facility] Comment on above: Performed By: #### C BC #### [facility] [address] [place] [address] Dr. Mason Astudillo MPV 10.5 fL Normal 9.5-13.5 [facility] Comment on above: Performed By: #### C BC #### [facility] [address] [place] [address] Dr. Mason Astudillo MYELOCYTE # Normal [facility] Comment on above: Performed By: #### C BC #### [facility] [address] [place] [address] Dr. Mason Astudillo MYELOCYTE % Normal [facility] Comment on above: Performed By: #### C BC #### [facility] [address] [place] [address] Dr. Mason Astudillo NRBC Normal [facility] Comment on above: Performed By: #### C BC #### [facility] [address] [place] [address] Dr. Mason Astudillo OVALOCYTES 1+ Normal [facility] Comment on above: Performed By: #### C BC #### [facility] [address] [place] [address] Dr. Mason Astudillo PLT 124 103/ul Critically low 150-450 [facility] Comment on above: Performed By: #### C BC #### [facility] [address] [place] [address] Dr. Mason Astudillo RBC 3.11 106/ul Critically low 4.70-6.10 [facility] Comment on above: Performed By: #### C BC #### [facility] [address] [place] [address] Dr. Mason Astudillo RDW 15.9 % Critically high 11.0-15.0 [facility] Comment on above: Performed By: #### C BC #### [facility] [address] [place] [address] Dr. Mason Astudillo SEG # 4.48 103/ul Normal 1.40-6.50 [facility] Comment on above: Performed By: #### C BC #### [facility] [address] [place] [address] Dr. Mason Astudillo SEG % 80.0 % Critically high 43.0-75.0 [facility] Comment on above: Performed By: #### C BC #### [facility] [address] [address] [address] Mason Astudillo WBC 5.6 103/ul Normal 4.0-11.0 [facility] Comment on above: Performed By: #### C BC #### [facility] [address] [address] [address] Mason Astudillo POINT OF CARE GLUCOSEon Glucose [Mass/Vol] 260 mg/dL Critically high [address] [place] [address] Comment on above: Performed By: #### P OCGLUC #### [facility] [address] [address] [address] Mason Astudillo Glucose [Mass/Vol] 165 mg/dL Critically high [address] [place] [address] Comment on above: Performed By: #### A 1C #### [facility] [address] [place] [address] Dr. Mason Astudillo Glucose [Mass/Vol] 147 mg/dL Critically high [address] [place] [address] Comment on above: Performed By: #### C BC #### [facility] [address] [address] [address] Mason Astudillo PROF CHEM 8 (BAS METB)on Anion gap [Moles/Vol] 11.0 mmol/L Normal [facility] Comment on above: Performed By: #### U A #### [facility] [address] [address] [address] Mason Astudillo Calcium [Mass/Vol] 8.0 mg/dL Critically low 8.5-10.1 [facility] Comment on above: Performed By: #### U A #### [facility] [address] [address] [address] Mason Astudillo Chloride [Moles/Vol] 106 mmol/L Normal 98-107 [facility] Comment on above: Performed By: #### U A #### [facility] [address] [place] [address] Dr. Mason Astudillo CO2 [Moles/Vol] 26.7 mmol/L Normal 21.0-32.0 [facility] Comment on above: Performed By: #### U A #### [facility] [address] [address] [address] Mason Astudillo Creatinine [Mass/Vol] 1.22 mg/dL Normal 0.70-1.30 [facility] Comment on above: Performed By: #### U A #### [facility] [address] [address] [address] Mason Astudillo EGFR-AF GUAMANIAN >60 Normal >=60 [facility] Comment on above: Performed By: #### U A #### [facility] [address] [address] [address] Mason Astudillo EGFR-NON AF GUAMANIAN 56 mL/min/1.73m2 Critically low >=60 [facility] Comment on above: Performed By: #### U A #### [facility] [address] [address] [address] Mason Astudillo Glucose [Mass/Vol] 147 mg/dL Critically high 74-[address] [facility] Comment on above: Performed By: #### U A #### [facility] [address] [address] [address] Mason Astudillo Potassium [Moles/Vol] 3.7 mmol/L Normal 3.5-5.1 [facility] Comment on above: Performed By: #### U A #### [facility] [address] [address] [address] Mason Astudillo Sodium [Moles/Vol] 140 mmol/L Normal 136-145 [facility] Comment on above: Performed By: #### U A #### [facility] [address] [address] [address] Mason Astudillo Urea nitrogen [Mass/Vol] 17.0 mg/dL Normal 7.0-18.0 [facility] Comment on above: Performed By: #### U A #### [facility] [address] [address] [address] Mason Astudillo Urea nitrogen/Creatinine [Mass ratio] 13.9 mg/mg Normal [facility] Comment on above: Performed By: #### U A #### [facility] [address] [place] [address] Dr. Mason Astudillo CBC AUTO DIFFon 02-04-2022 BASO # 0.0 103/ul Normal 0.0-0.1 [facility] Comment on above: Performed By: #### C BC #### [facility] [address] [place] [address] Dr. Mason Astudillo Basophils/100 WBC (Bld) 0.2 % Normal 0.2-2.0 [facility] Comment on above: Performed By: #### C BC #### [facility] [address] [place] [address] Dr. Mason Astudillo EO # 0.2 103/ul Normal 0.0-0.7 [facility] Comment on above: Performed By: #### C BC #### [facility] [address] [place] [address] Dr. Mason Astudillo Eosinophils/100 WBC (Bld) 3.4 % Normal 0.9-7.0 [facility] Comment on above: Performed By: #### C BC #### [facility] [address] [place] [address] Dr. Mason Astudillo Erythrocyte distribution width (RBC) [Ratio] 15.6 % Critically high 11.0-15.0 [facility] Comment on above: Performed By: #### C BC #### [facility] [address] [place] [address] Dr. Mason Astudillo Hematocrit (Bld) [Volume fraction] 26.1 % Critically low 42.0-54.0 [facility] Comment on above: Performed By: #### C BC #### [facility] [address] [place] [address] Dr. Mason Astudillo Hemoglobin (Bld) [Mass/Vol] 8.2 g/dL Critically low 14.0-18.0 [facility] Comment on above: Performed By: #### C BC #### [facility] [address] [place] [address] Dr. Mason Astudillo IG # 0.06 10e3/ul Critically high 0.00-0.03 [facility] Comment on above: Performed By: #### C BC #### [facility] [address] [place] [address] Dr. Mason Astudillo IG % 1.4 % Critically high 0.0-0.5 [facility] Comment on above: Performed By: #### C BC #### [facility] [address] [place] [address] Dr. Mason Astudillo LYMPH # 0.6 103/ul Critically low 1.2-3.8 [facility] Comment on above: Performed By: #### C BC #### [facility] [address] [place] [address] Dr. Mason Astudillo Lymphocytes/100 WBC (Bld) 14.3 % Critically low 20.5-60.0 [facility] Comment on above: Performed By: #### C BC #### [facility] [address] [place] [address] Dr. Mason Astudillo MANUAL DIFF REQ NO Normal [facility] Comment on above: Performed By: #### C BC #### [facility] [address] [place] [address] Dr. Mason Astudillo MCH (RBC) [Entitic mass] 27.4 pg Normal 25.9-34.0 [facility] Comment on above: Performed By: #### C BC #### [facility] [address] [place] [address] Dr. Mason Astudillo MCHC (RBC) [Mass/Vol] 31.4 g/dL Normal 29.9-35.2 [facility] Comment on above: Performed By: #### C BC #### [facility] [address] [place] [address] Dr. Mason Astudillo MCV (RBC) [Entitic vol] 87.3 fL Normal 80.0-94.0 [facility] Comment on above: Performed By: #### C BC #### [facility] [address] [place] [address] Dr. Mason Astudillo MONO # 0.5 103/ul Normal 0.3-0.8 [facility] Comment on above: Performed By: #### C BC #### [facility] [address] [place] [address] Dr. Mason Astudillo Monocytes/100 WBC (Bld) 10.4 % Normal 1.7-12.0 [facility] Comment on above: Performed By: #### C BC #### [facility] [address] [place] [address] Dr. Mason Astudillo NEUT # 3.1 103/ul Normal 1.4-6.5 [facility] Comment on above: Performed By: #### C BC #### [facility] [address] [place] [address] Dr. Mason Astudillo Neutrophils/100 WBC (Bld) 70.3 % Normal 43.0-75.0 [facility] Comment on above: Performed By: #### C BC #### [facility] [address] [place] [address] Dr. Mason Astudillo Platelet mean volume (Bld) [Entitic vol] 10.5 fL Normal 9.5-13.5 [facility] Comment on above: Performed By: #### C BC #### [facility] [address] [place] [address] Dr. Mason Astudillo PLT 105 103/ul Critically low 150-450 [facility] Comment on above: Performed By: #### C BC #### [facility] [address] [place] [address] Dr. Mason Astudillo RBC 2.99 106/ul Critically low 4.70-6.10 [facility] Comment on above: Performed By: #### C BC #### [facility] [address] [place] [address] Dr. Mason Astudillo WBC 4.4 103/ul Normal 4.0-11.0 [facility] Comment on above: Performed By: #### C BC #### [facility] [address] [place] [address] Dr. Mason Astudillo ECHOCARDIO M/2D COMPLETEon 0 02-04-2022 ECHOCARDIO M/2D COMPLETE Patient: BEN GUADALUPE Exam Date: 02/04/2022 : 1935 Gender:M Ordering : DR COLTON CASTELLON . Admission #: [id number] Family : SHAIKH Samantha ELLIOTT . Order #: [id number] CLICK HERE TO VIEW EXAM ECHOCARDIOGRAM REPORT [...] M.D. on 02/04/2022 at 13:39 Normal [facility] POINT OF CARE GLUCOSEon 08-0 Glucose [Mass/Vol] 262 mg/dL Critically high 74-106 [facility] Comment on above: Performed By: #### C #### [facility] [address] [place] [address] Dr. Mason Astudillo Glucose [Mass/Vol] 167 mg/dL Critically high 74-[address] [facility] Comment on above: Performed By: #### C BC #### [facility] [address] [place] [address] Dr. Mason Astudillo Glucose [Mass/Vol] 158 mg/dL Critically high 74-[address] [facility] Comment on above: Performed By: #### P OCGLUC #### [facility] [address] [place] [address] Dr. Mason Astudillo PRBC LEUKOREDUCEDon 02-05-20 ABO and Rh group Nom (Bld) Cross Match Result Compatible Unit Blood Type A Neg Unit Number [id number] Status Information Transfused Product ID Red Blood Cells Product Code [id number] Cross Match Result Compatible Unit Blood Type A Neg Unit Number [id number] Status Information Transfused Product ID Red Blood Cells Product Code [id number] Normal [facility] Comment on above: Performed By: #### P SAD #### [facility] [address] [place] [address] Dr. Mason Astudillo PROF CHEM 8 (BAS METB)on Anion gap [Moles/Vol] 11.5 mmol/L Normal [facility] Comment on above: Performed By: #### C BC #### [facility] [address] [place] [address] Dr. Mason Astudillo Calcium [Mass/Vol] 7.4 mg/dL Critically low 8.5-10.1 [facility] Comment on above: Performed By: #### C BC #### [facility] [address] [place] [address] Dr. Mason Astudillo Chloride [Moles/Vol] 106 mmol/L Normal 98-107 [facility] Comment on above: Performed By: #### C BC #### [facility] [address] [place] [address] Dr. Mason Astudillo CO2 [Moles/Vol] 25.8 mmol/L Normal 21.0-32.0 [facility] Comment on above: Performed By: #### C BC #### [facility] [address] [place] [address] Dr. Mason Astudillo Creatinine [Mass/Vol] 1.07 mg/dL Normal 0.70-1.30 [facility] Comment on above: Performed By: #### C BC #### [facility] [address] [place] [address] Dr. Mason Astudillo EGFR-AF GUAMANIAN >60 Normal >=60 [facility] Comment on above: Performed By: #### C BC #### [facility] [address] [place] [address] Dr. Mason Astudillo EGFR-NON AF GUAMANIAN >60 Normal >=60 [facility] Comment on above: Performed By: #### C BC #### [facility] [address] [place] [address] Dr. Mason Astudillo Glucose [Mass/Vol] 165 mg/dL Critically high 74-[address] [facility] Comment on above: Performed By: #### C BC #### [facility] [address] [place] [address] Dr. Mason Astudillo Potassium [Moles/Vol] 3.3 mmol/L Critically low 3.5-5.1 [facility] Comment on above: Performed By: #### C BC #### [facility] [address] [place] [address] Dr. Mason Astudillo Sodium [Moles/Vol] 140 mmol/L Normal 136-145 [facility] Comment on above: Performed By: #### C BC #### [facility] [address] [place] [address] Dr. Mason Astudillo Urea nitrogen [Mass/Vol] 19.0 mg/dL Critically high 7.0-18.0 [facility] Comment on above: Performed By: #### C BC #### [facility] [address] [place] [address] Dr. Mason Astudillo Urea nitrogen/Creatinine [Mass ratio] 17.8 mg/mg Normal [facility] Comment on above: Performed By: #### C BC #### [facility] [address] [place] [address] Dr. Mason Astudillo ABO RH RETYPEon 02-03-2022 ABO and Rh group Nom (Bld) DONE Normal [facility] Comment on above: Performed By: #### P OCGLUC #### [facility] [address] [place] [address] Dr. Mason Astudillo CBC AUTO DIFFon 02-03-2022 Basophils/100 WBC (Bld) 0.5 % Normal 0.2-2.0 [facility] Comment on above: Performed By: #### U A #### [facility] [address] [place] [address] Dr. Mason Astudillo EO # 0.2 103/ul Normal 0.0-0.7 [facility] Comment on above: Performed By: #### U A #### [facility] [address] [place] [address] Dr. Mason Astudillo Eosinophils/100 WBC (Bld) 2.9 % Normal 0.9-7.0 [facility] Comment on above: Performed By: #### U A #### [facility] [address] [place] [address] Dr. Mason Astudillo Erythrocyte distribution width (RBC) [Ratio] 15.7 % Critically high 11.0-15.0 [facility] Comment on above: Performed By: #### U A #### [facility] [address] [place] [address] Dr. Mason Astudillo Hematocrit (Bld) [Volume fraction] 31.1 % Critically low 42.0-54.0 [facility] Comment on above: Performed By: #### U A #### [facility] [address] [place] [address] Dr. Mason Astudillo Hemoglobin (Bld) [Mass/Vol] 9.7 g/dL Critically low 14.0-18.0 [facility] Comment on above: Result Comment: rcvd . 2 units of packed red cells. Performed By: #### U A #### [facility] [address] [place] [address] Dr. Mason Astudillo IG # 0.05 10e3/ul Critically high 0.00-0.03 [facility] Comment on above: Performed By: #### U A #### [place] [facility] [address] [address] [address] Mason Astudillo IG % 0.8 % Critically high 0.0-0.5 [facility] Comment on above: Performed By: #### U A #### [facility] [address] [place] [address] Dr. Mason Astudillo LYMPH # 1.1 103/ul Critically low 1.2-3.8 [facility] Comment on above: Performed By: #### U A #### [facility] [address] [place] [address] Dr. Mason Astudillo Lymphocytes/100 WBC (Bld) 19.3 % Critically low 20.5-60.0 [facility] Comment on above: Performed By: #### U A #### [facility] [address] [place] [address] Dr. Mason Astudillo MCH (RBC) [Entitic mass] 27.2 pg Normal 25.9-34.0 [facility] Comment on above: Performed By: #### U A #### [facility] [address] [place] [address] Dr. Mason Astudillo MCHC (RBC) [Mass/Vol] 31.2 g/dL Normal 29.9-35.2 [facility] Comment on above: Performed By: #### U A #### [facility] [address] [place] [address] Dr. Mason Astudillo MCV (RBC) [Entitic vol] 87.1 fL Normal 80.0-94.0 [facility] Comment on above: Performed By: #### U A #### [facility] [address] [place] [address] Dr. Mason Astudillo MONO # 0.6 103/ul Normal 0.3-0.8 [facility] Comment on above: Performed By: #### U A #### [facility] [address] [place] [address] Dr. Mason Astudillo Monocytes/100 WBC (Bld) 10.7 % Normal 1.7-12.0 [facility] Comment on above: Performed By: #### U A #### [facility] [address] [address] [address] Mason Astudillo NEUT # 3.9 103/ul Normal 1.4-6.5 [facility] Comment on above: Performed By: #### U A #### [facility] [address] [place] [address] Dr. Mason Astudillo Neutrophils/100 WBC (Bld) 65.8 % Normal 43.0-75.0 [facility] Comment on above: Performed By: #### U A #### [facility] [address] [place] [address] Dr. aMson Astudillo Platelet mean volume (Bld) [Entitic vol] 10.5 fL Normal 9.5-13.5 [facility] Comment on above: Performed By: #### U A #### [facility] [address] [place] [address] Dr. Mason Astudillo PLT 147 103/ul Critically low 150-450 [facility] Comment on above: Performed By: #### U A #### [facility] [address] [place] [address] Dr. Mason Astudillo RBC 3.57 106/ul Critically low 4.70-6.10 [facility] Comment on above: Performed By: #### U A #### [facility] [address] [place] [address] Dr. Mason Astudillo WBC 5.9 103/ul Normal 4.0-11.0 [facility] Comment on above: Performed By: #### U A #### [facility] [address] [place] [address] Dr. Mason Astudillo BASO # 0.0 103/ul Normal 0.0-0.1 [facility] Comment on above: Performed By: #### U A #### [facility] [address] [place] [address] Dr. Mason Astudillo Basophils/100 WBC (Bld) 0.3 % Normal 0.2-2.0 [facility] Comment on above: Performed By: #### U A #### [facility] [address] [place] [address] Dr. Mason Astudillo EO # 0.1 103/ul Normal 0.0-0.7 [facility] Comment on above: Performed By: #### U A #### [facility] [address] [place] [address] Dr. Mason Astudillo Eosinophils/100 WBC (Bld) 2.5 % Normal 0.9-7.0 [facility] Comment on above: Performed By: #### U A #### [facility] [address] [place] [address] Dr. Mason Astudillo Erythrocyte distribution width (RBC) [Ratio] 15.9 % Critically high 11.0-15.0 [facility] Comment on above: Performed By: #### U A #### [facility] [address] [place] [address] Dr. Mason Astudillo Hematocrit (Bld) [Volume fraction] 22.3 % Critically low 42.0-54.0 [facility] Comment on above: Result Comment: Test Repeated. Critical Value Verified Performed By: #### U A #### [facility] [address] [place] [address] Dr. Mason Astudillo Hemoglobin (Bld) [Mass/Vol] 6.7 g/dL Critically low 14.0-18.0 [facility] Comment on above: Result Comment: Test Repeated. Critical Value Verified Performed By: #### U A #### [facility] [address] [place] [address] Dr. Mason Astudillo IG # 0.02 10e3/ul Normal 0.00-0.03 [facility] Comment on above: Performed By: #### U A #### [facility] [address] [place] [address] Dr. Mason Astudillo IG % 0.5 % Normal 0.0-0.5 [facility] Comment on above: Performed By: #### U A #### [facility] [address] [place] [address] Dr. Mason Astudillo LYMPH # 0.7 103/ul Critically low 1.2-3.8 [facility] Comment on above: Performed By: #### U A #### [facility] [address] [place] [address] Dr. Mason Astudillo Lymphocytes/100 WBC (Bld) 19.5 % Critically low 20.5-60.0 [facility] Comment on above: Performed By: #### U A #### [facility] [address] [place] [address] Dr. Mason Astudillo MANUAL DIFF REQ NO Normal [facility] Comment on above: Performed By: #### U A #### [facility] [address] [place] [address] Dr. Mason Astudillo MCH (RBC) [Entitic mass] 25.8 pg Critically low 25.9-34.0 [facility] Comment on above: Performed By: #### U A #### [facility] [address] [place] [address] Dr. Mason Astudillo MCHC (RBC) [Mass/Vol] 30.0 g/dL Normal 29.9-35.2 [facility] Comment on above: Performed By: #### U A #### [facility] [address] [place] [address] Dr. Mason Astudillo MCV (RBC) [Entitic vol] 85.8 fL Normal 80.0-94.0 [facility] Comment on above: Performed By: #### U A #### [facility] [address] [place] [address] Dr. Mason Astudillo MONO # 0.4 103/ul Normal 0.3-0.8 [facility] Comment on above: Performed By: #### U A #### [facility] [address] [place] [address] Dr. Mason Astudillo Monocytes/100 WBC (Bld) 11.8 % Normal 1.7-12.0 [facility] Comment on above: Performed By: #### U A #### [facility] [address] [place] [address] Dr. Mason Astudillo NEUT # 2.4 103/ul Normal 1.4-6.5 [facility] Comment on above: Performed By: #### U A #### [facility] [address] [place], [place] [id number] Dr. Mason Astudillo Neutrophils/100 WBC (Bld) 65.4 % Normal 43.0-75.0 [facility] Comment on above: Performed By: #### U A #### [facility] [address] [place] [address] Dr. Mason Astudillo Platelet mean volume (Bld) [Entitic vol] 10.7 fL Normal 9.5-13.5 [facility] Comment on above: Performed By: #### U A #### [facility] [address] [place] [address] Dr. Mason Astudillo PLT 103 103/ul Critically low 150-450 [facility] Comment on above: Performed By: #### U A #### [facility] [address] [place] [address] Dr. Mason Astudillo RBC 2.60 106/ul Critically low 4.70-6.10 [facility] Comment on above: Performed By: #### U A #### [facility] [address] [place] [address] Dr. Mason Astudillo WBC 3.7 103/ul Critically low 4.0-11.0 [facility] Comment on above: Performed By: #### U A #### [facility] [address] [place] [address] Dr. Mason Astudillo IRON AND TIBCon 02-03-2022 % SATURATION 46.9 % Normal [facility] Comment on above: Performed By: #### U A #### [facility] [address] [place] [address] Dr. Mason Astudillo Iron [Mass/Vol] 150.0 ug/dL Normal 65.0-175.0 [facility] Comment on above: Performed By: #### U A #### [facility] [address] [place] [address] Dr. Mason Astudillo TIBC DIRECT 320.0 ug/dL Normal 250.0-450.0 [facility] Comment on above: Performed By: #### U A #### [facility] [address] [place] [address] Dr. Mason Astudillo POINT OF CARE GLUCOSEon 07-3 1-2022 Glucose [Mass/Vol] 201 mg/dL Critically high 74-[address] [facility] Comment on above: Performed By: #### U A #### [facility] [address] [place] [address] Dr. Mason Astudillo Glucose [Mass/Vol] 152 mg/dL Critically high 74-[address] [facility] Comment on above: Performed By: #### P OCGLUC #### [facility] [address] [place] [address] Dr. Mason Astudillo Glucose [Mass/Vol] 242 mg/dL Critically high -[address] [facility] Comment on above: Performed By: #### A 1C #### [facility] [address] [place] [address] Dr. Mason Astudillo PROF CHEM 8 (BAS METB)on Anion gap [Moles/Vol] 11.4 mmol/L Normal [facility] Comment on above: Performed By: #### B MP #### [facility] [address] [place] [address] Dr. Mason Astudillo Calcium [Mass/Vol] 7.5 mg/dL Critically low 8.5-10.1 [facility] Comment on above: Performed By: #### B MP #### [facility] [address] [place] [address] Dr. Mason Astudillo Chloride [Moles/Vol] 106 mmol/L Normal 98-107 [facility] Comment on above: Performed By: #### B MP #### [facility] [address] [place] [address] Dr. Mason Astudillo CO2 [Moles/Vol] 26.8 mmol/L Normal 21.0-32.0 [facility] Comment on above: Performed By: #### B MP #### [facility] [address] [place] [address] Dr. Mason Astudillo Creatinine [Mass/Vol] 1.26 mg/dL Normal 0.70-1.30 [facility] Comment on above: Performed By: #### B MP #### [facility] [address] [place] [address] Dr. Mason Astudillo EGFR-AF GUAMANIAN >60 Normal >=60 [facility] Comment on above: Performed By: #### B MP #### [facility] [address] [address] [address] Mason Astudillo EGFR-NON AF GUAMANIAN 54 mL/min/1.73m2 Critically low >=60 [facility] Comment on above: Performed By: #### B MP #### [facility] [address] [address] [address] Mason Astudillo Glucose [Mass/Vol] 160 mg/dL Critically high 74-[address] [facility] Comment on above: Performed By: #### B MP #### [facility] [address] [address] [address] Mason Astudillo Potassium [Moles/Vol] 3.2 mmol/L Critically low 3.5-5.1 [facility] Comment on above: Performed By: #### B MP #### [facility] [address] [address] [address] Mason Astudillo Sodium [Moles/Vol] 141 mmol/L Normal 136-145 [facility] Comment on above: Performed By: #### B MP #### [facility] [address] [address] [address] Mason Astudillo Urea nitrogen [Mass/Vol] 30.0 mg/dL Critically high 7.0-18.0 [facility] Comment on above: Performed By: #### B MP #### [facility] [address] [address] [address] Mason Astudillo Urea nitrogen/Creatinine [Mass ratio] 23.8 mg/mg Normal [facility] Comment on above: Performed By: #### B MP #### [facility] [address] [address] [address] Mason Astudillo TYPE AND SCREENon 02-03-2022 TYPE AND SCREEN Negative Normal [facility] Comment on above: Performed By: #### T NS #### [facility] [address] [address] [address] Mason Astudillo BNPon 02-02-2022 Natriuretic peptide B (Bld) [Mass/Vol] 154.0 pg/mL Normal <=1,800.0 [facility] Comment on above: Performed By: #### P SAD #### [facility] [address] [place] [address] Dr. Mason Astudillo CARDIAC ANJELICA ADMITon 022 CK [Catalytic activity/Vol] 256 U/L Normal 39-308 [facility] Comment on above: Performed By: #### P OCGLUC #### [facility] [address] [place] [address] Dr. Mason Astudillo CK.MB [Mass/Vol] 3.30 ng/mL Normal <=3.60 [facility] Comment on above: Performed By: #### P OCGLUC #### [facility] [address] [place] [address] Dr. Mason Astudillo HSTROP 19.1 pg/mL Normal 4.0-76.1 [facility] Comment on above: Result Comment: CUT- OFF POINTS HAVE BEEN ESTABLISHED BASED ON THE FOURTH UNIVERSAL DEFINITIONS OF MYOCARDIAL INFARCTION. THE UPPER REFERENCE LIMIT (URL) OF TROPONIN, DEFINED THE 99TH PERCENTILE OF cTnI DISTRIBUTION IN A REFERENCE POPULATION, HAS BEEN CONFIRMED THE DECISION THRESHOLD FOR DC DIAGNOSIS. Performed By: #### P OCGLUC #### [facility] [address] [place] [address] Dr. Mason Astudillo ABDELRAHMAN 304 ng/mL Critically high 16-96 [facility] Comment on above: Performed By: #### P OCGLUC #### [facility] [address] [place] [address] Dr. Mason Astudillo CBC AUTO DIFFon 02-02-2022 BASO # 0.0 103/ul Normal 0.0-0.1 [facility] Comment on above: Performed By: #### C BC #### [facility] [address] [place] [address] Dr. Mason Astudillo Basophils/100 WBC (Bld) 0.5 % Normal 0.2-2.0 [facility] Comment on above: Performed By: #### C BC #### [facility] [address] [place] [address] Dr. Mason Astudillo EO # 0.2 103/ul Normal 0.0-0.7 [facility] Comment on above: Performed By: #### C BC #### [facility] [address] [place] [address] Dr. Mason Astudillo Eosinophils/100 WBC (Bld) 2.4 % Normal 0.9-7.0 [facility] Comment on above: Performed By: #### C BC #### [facility] [address] [place] [address] Dr. Mason Astudillo Erythrocyte distribution width (RBC) [Ratio] 15.9 % Critically high 11.0-15.0 [facility] Comment on above: Performed By: #### C BC #### [facility] [address] [place] [address] Dr. Mason Astudillo Hematocrit (Bld) [Volume fraction] 27.9 % Critically low 42.0-54.0 [facility] Comment on above: Performed By: #### C BC #### [facility] [address] [place] [address] Dr. Mason Astudillo Hemoglobin (Bld) [Mass/Vol] 8.7 g/dL Critically low 14.0-18.0 [facility] Comment on above: Performed By: #### C BC #### [facility] [address] [place] [address] Dr. Mason Astudillo IG # 0.04 10e3/ul Critically high 0.00-0.03 [facility] Comment on above: Performed By: #### C BC #### [facility] [address] [place] [address] Dr. Mason Astudillo IG % 0.6 % Critically high 0.0-0.5 [facility] Comment on above: Performed By: #### C BC #### [facility] [address] [place] [address] Dr. Mason Astudillo LYMPH # 1.3 103/ul Normal 1.2-3.8 [facility] Comment on above: Performed By: #### C BC #### [facility] [address] [place] [address] Dr. Mason Astudillo Lymphocytes/100 WBC (Bld) 20.1 % Critically low 20.5-60.0 [facility] Comment on above: Performed By: #### C BC #### [facility] [address] [place] [address] Dr. Mason Astudillo MANUAL DIFF REQ NO Normal [facility] Comment on above: Performed By: #### C BC #### [facility] [address] [place] [address] Dr. Mason Astudillo MCH (RBC) [Entitic mass] 26.1 pg Normal 25.9-34.0 [facility] Comment on above: Performed By: #### C BC #### [facility] [address] [place] [address] Dr. Mason Astudillo MCHC (RBC) [Mass/Vol] 31.2 g/dL Normal 29.9-35.2 [facility] Comment on above: Performed By: #### C BC #### [facility] [address] [place] [address] Dr. Mason Astudillo MCV (RBC) [Entitic vol] 83.8 fL Normal 80.0-94.0 [facility] Comment on above: Performed By: #### C BC #### [facility] [address] [place] [address] Dr. Mason Astudillo MONO # 0.7 103/ul Normal 0.3-0.8 [facility] Comment on above: Performed By: #### C BC #### [facility] [address] [place] [address] Dr. Mason Astudillo Monocytes/100 WBC (Bld) 11.1 % Normal 1.7-12.0 [facility] Comment on above: Performed By: #### C BC #### [facility] [address] [place] [address] Dr. Mason Astudillo NEUT # 4.1 103/ul Normal 1.4-6.5 [facility] Comment on above: Performed By: #### C BC #### [facility] [address] [place] [address] Dr. Mason Astudillo Neutrophils/100 WBC (Bld) 65.3 % Normal 43.0-75.0 [facility] Comment on above: Performed By: #### C BC #### [facility] [address] [address] [address] Mason Astudillo Platelet mean volume (Bld) [Entitic vol] 10.3 fL Normal 9.5-13.5 [facility] Comment on above: Performed By: #### C BC #### [facility] [address] [place] [address] Dr. Mason Astudillo PLT 145 103/ul Critically low 150-450 [facility] Comment on above: Performed By: #### C BC #### [facility] [address] [address] [address] Mason Astudillo RBC 3.33 106/ul Critically low 4.70-6.10 [facility] Comment on above: Performed By: #### C BC #### [facility] [address] [place] [address] Dr. Mason Astudillo WBC 6.2 103/ul Normal 4.0-11.0 [facility] Comment on above: Performed By: #### C BC #### [facility] [address] [address] [address] Mason Astudillo Covid-19 PCR ([facility])on 01-06 SARS-CoV-2 (COVID-19) RNA GARCÍA+probe Ql (Unsp [...] for this test is supported by the Measurement Coordinator of Health and Human Service's declaration that [...] 1C #### [facility] [address] [place] [address] Dr. Mason Astudillo FREE T3on 02-02-2022 FREE T3 2.16 pg/mlL Critically low 2.18-3.98 [facility] Comment on above: Performed By: #### P SAD #### [facility] [address] [place] [address] Dr. Mason Astudillo FREE T4on 02-02-2022 Free T4 [Mass/Vol] 1.09 ng/dL Normal 0.76-1.46 [facility] Comment on above: Performed By: #### F T4 #### [facility] [address] [place] [address] Dr. Mason Astudillo GLYCOHEMOGLOBIN A1Con 2021 ADA RECOMMENDATION SEE BELOW Normal [facility] Comment on above: Result Comment: ADA RECOMMENDED LIMIT 4.0 - 6.0 ADA THERAPEUTIC TARGET < 7.0 ACTION SUGGESTED > 7.0 Performed By: #### A 1C #### [facility] [address] [place] [address] Dr. Mason Astudillo Glucose [Mass/Vol] 160 mg/dL Normal [facility] Comment on above: Performed By: #### A 1C #### [facility] [address] [place] [address] Dr. Mason Astudillo HbA1c (Bld) [Mass fraction] 7.2 % Critically high 4.5-6.2 [facility] Comment on above: Performed By: #### A 1C #### [facility] [address] [place] [address] Dr. Mason Astudillo MAGNESIUMon 02-02-2022 Magnesium [Mass/Vol] 2.1 mg/dL Normal 1.8-2.4 [facility] Comment on above: Performed By: #### P SAD #### [facility] [address] [place] [address] Dr. Mason Astudillo POINT OF CARE GLUCOSEon 07-3 0-2022 Glucose [Mass/Vol] 226 mg/dL Critically high 74-[address] [facility] Comment on above: Performed By: #### C BC #### [facility] [address] [place] [address] Dr. Mason Astudillo Glucose [Mass/Vol] 249 mg/dL Critically high 74-[address] [facility] Comment on above: Performed By: #### C BC #### [facility] [address] [place] [address] Dr. Mason Astudillo Glucose [Mass/Vol] 195 mg/dL Critically high 74-[address] [facility] Comment on above: Performed By: #### P SAD #### [facility] [address] [place] [address] Dr. Mason Astudillo PROF CHEM 8 (BAS METB)on Anion gap [Moles/Vol] 12.6 mmol/L Normal [facility] Comment on above: Performed By: #### P OCGLUC #### [facility] [address] [place] [address] Dr. Mason Astudillo Calcium [Mass/Vol] 8.1 mg/dL Critically low 8.5-10.1 [facility] Comment on above: Performed By: #### P OCGLUC #### [facility] [address] [place] [address] Dr. Mason Astudillo Chloride [Moles/Vol] 101 mmol/L Normal 98-107 [facility] Comment on above: Performed By: #### P OCGLUC #### [facility] [address] [place] [address] Dr. Mason Astudillo CO2 [Moles/Vol] 29.4 mmol/L Normal 21.0-32.0 [facility] Comment on above: Performed By: #### P OCGLUC #### [facility] [address] [place] [address] Dr. Mason Astudillo Creatinine [Mass/Vol] 1.68 mg/dL Critically high 0.70-1.30 [facility] Comment on above: Performed By: #### P OCGLUC #### [facility] [address] [place] [address] Dr. Mason Astudillo EGFR-AF GUAMANIAN 47 mL/min/1.73m2 Critically low >=60 [facility] Comment on above: Result Comment: Prev iously reported as: (blank) On 02/02/2022 06:30 By [facility] Performed By: #### P OCGLUC #### [facility] [address] [place] [address] Dr. Mason Astudillo EGFR-NON AF GUAMANIAN 39 mL/min/1.73m2 Critically low >=60 [facility] Comment on above: Result Comment: Prev iously reported as: (blank) On 02/02/2022 06:30 By [facility] Performed By: #### P OCGLUC #### [facility] [address] [place] [address] Dr. Mason Astudillo Glucose [Mass/Vol] 264 mg/dL Critically high 74-[address] [facility] Comment on above: Performed By: #### P OCGLUC #### [facility] [address] [place] [address] Dr. Mason Astudillo Potassium [Moles/Vol] 3.0 mmol/L Critically low 3.5-5.1 [facility] Comment on above: Performed By: #### P OCGLUC #### [facility] [address] [place] [address] Dr. Mason Astudillo Sodium [Moles/Vol] 140 mmol/L Normal 136-145 [facility] Comment on above: Performed By: #### P OCGLUC #### [facility] [address] [place] [address] Dr. Mason Astudillo Urea nitrogen [Mass/Vol] 45.0 mg/dL Critically high 7.0-18.0 [facility] Comment on above: Performed By: #### P OCGLUC #### [facility] [address] [place] [address] Dr. Mason Astudillo Urea nitrogen/Creatinine [Mass ratio] 26.8 mg/mg Normal [facility] Comment on above: Performed By: #### P OCGLUC #### [facility] [address] [place] [address] Dr. Mason Astudillo TROPONIN, HIGH SENSITIVITYon 02-02-2022 HSTROP 81.7 pg/mL Critically high 4.0-76.1 [facility] Comment on above: Result Comment: CUT- OFF POINTS HAVE BEEN ESTABLISHED BASED ON THE FOURTH UNIVERSAL DEFINITIONS OF MYOCARDIAL INFARCTION. THE UPPER REFERENCE LIMIT (URL) OF TROPONIN, DEFINED THE 99TH PERCENTILE OF cTnI DISTRIBUTION IN A REFERENCE POPULATION, HAS BEEN CONFIRMED THE DECISION THRESHOLD FOR DC DIAGNOSIS. repeated Performed By: #### B MP #### [facility] [address] [place] [address] Dr. Mason Astudillo TSHon 02-02-2022 TSH 1.200 uIU/mL Normal 0.358-3.740 [facility] Comment on above: Performed By: #### C BC #### [facility] [address] [place] [address] Dr. Mason Astudillo XR CHEST 1 Von [...] Albumin [Mass/Vol] 3.7 g/dL Normal 3.4-5.0 [facility] Comment on above: Performed By: #### P OCGLUC #### [facility] [address] [place] [address] Dr. Mason Astudillo Calcium [Mass/Vol] 8.6 mg/dL Normal 8.5-10.1 [facility] Comment on above: Performed By: #### P OCGLUC #### [facility] [address] [place] [address] Dr. Mason Astudillo Chloride [Moles/Vol] 104 mmol/L Normal 98-107 [facility] Comment on above: Performed By: #### P OCGLUC #### [facility] [address] [place] [address] Dr. Mason Astudillo CO2 [Moles/Vol] 28.0 mmol/L Normal 21.0-32.0 [facility] Comment on above: Performed By: #### P OCGLUC #### [facility] [address] [address] [address] Mason Astudillo Creatinine [Mass/Vol] 1.25 mg/dL Normal 0.70-1.30 [facility] Comment on above: Performed By: #### P OCGLUC #### [facility] [address] [address] [address] Mason Astudillo EGFR-AF GUAMANIAN >60 Normal >=60 [facility] Comment on above: Performed By: #### P OCGLUC #### [facility] [address] [address] [address] Mason Astudillo EGFR-NON AF GUAMANIAN 55 mL/min/1.73m2 Critically low >=60 [facility] Comment on above: Performed By: #### P OCGLUC #### [facility] [address] [address] [address] Mason Astudillo Glucose [Mass/Vol] 143 mg/dL Critically high 74-[address] [facility] Comment on above: Performed By: #### P OCGLUC #### [facility] [address] [place] [address] Dr. Mason Astudillo Phosphate [Mass/Vol] 2.9 mg/dL Normal 2.6-4.7 [facility] Comment on above: Performed By: #### P OCGLUC #### [facility] [address] [address] [address] Mason Astudillo Potassium [Moles/Vol] 3.6 mmol/L Normal 3.5-5.1 [facility] Comment on above: Performed By: #### P OCGLUC #### [facility] [address] [place] [address] Dr. Mason Astudillo Sodium [Moles/Vol] 142 mmol/L Normal 136-145 [facility] Comment on above: Performed By: #### P OCGLUC #### [facility] [address] [place] [address] Dr. Mason Astudillo Urea nitrogen [Mass/Vol] 19.0 mg/dL Critically high 7.0-18.0 [facility] Comment on above: Performed By: #### P OCGLUC #### [facility] [address] [place] [address] Dr. Mason Astudillo UA RANDOMon 01-11-2022 Bilirubin Ql (U) Negative Normal NEGATIVE [facility] Comment on above: Performed By: #### U A #### [facility] [address] [place] [address] Dr. Mason Astudillo Clarity (U) CLEAR Normal CLEAR [facility] Comment on above: Performed By: #### U A #### [facility] [address] [place] [address] Dr. Mason Astudillo Color (U) LT. YELLOW Normal YELLOW [facility] Comment on above: Performed By: #### U A #### [facility] [address] [place] [address] Dr. Mason Astudillo Glucose Ql (U) >1000 Abnormal NEGATIVE [facility] Comment on above: Performed By: #### U A #### [facility] [address] [place] [address] Dr. Mason Astudillo Hemoglobin Ql (U) Negative Normal NEGATIVE [facility] Comment on above: Performed By: #### U A #### [facility] [address] [place] [address] Dr. Mason Astudillo Ketones Ql (U) Negative Normal NEGATIVE [facility] Comment on above: Performed By: #### U A #### [facility] [address] [place] [address] Dr. Mason Astudillo LEUKOCYTES Negative Normal NEGATIVE [facility] Comment on above: Performed By: #### U A #### [facility] [address] [place] [address] Dr. Mason Astudillo Nitrite Ql (U) Negative Normal NEGATIVE [facility] Comment on above: Performed By: #### U A #### [facility] [address] [place] [address] Dr. Mason Astudillo pH (U) 6.5 [pH] Normal 5-9 [facility] Comment on above: Performed By: #### U A #### [facility] [address] [place] [address] Dr. Mason Astudillo SPEC GRAVITY 1.010 Normal 1.005-<=1.0 25 [facility] Comment on above: Performed By: #### U A #### [facility] [address] [place] [address] Dr. Mason Astudillo UA PROTEIN Negative Normal NEGATIVE/ TRACE [facility] Comment on above: Performed By: #### U A #### [facility] [address] [place] [address] Dr. Mason Astudillo Urobilinogen Qn (U) 0.2 {Lewis'U}/dL Normal 0.2 - 1. 0 [facility] Comment on above: Performed By: #### U A #### [facility] [address] [place] [address] Dr. Mason Astudillo URINE T PROTEIN CREAT RATIOo n 01-11-2022 Protein (U) [Mass/Vol] 23.7 mg/dL Critically high <=12.0 [facility] Comment on above: Performed By: #### A 1C #### [facility] [address] [place] [address] Dr. Mason Astudillo UR PROT CREAT RAT 0.20 Normal [facility] Comment on above: Performed By: #### A 1C #### [facility] [address] [place] [address] Dr. Mason Astudillo URINE CREAT 115.99 mg/dL Normal 20.00-300.0 0 [facility] Comment on above: Performed By: #### A 1C #### [facility] [address] [place] [address] Dr. Maosn Astudillo US KIDNEYSon 01-09-2022 US KIDNEYS EXAMINATION: [...] 2 Folate 11.0 ng/mL Normal >3.0 [facility] Comment on above: Result Comment: A [facility] folate concentration of less than 3.1 ng/mL is considered to represent clinical deficiency. Performed By: #### P SAD #### [facility] [address] [place] [address] Dr. Mason Astudillo TRANSFERRINon 12-20-2021 Transferrin [Mass/Vol] 316 mg/dL Critically high 149-313 [facility] Comment on above: Performed By: #### A 1C #### [facility] [address] [place] [address] Dr. Mason Astudillo CBC AUTO DIFFon 12-18-2021 BASO # 0.0 103/ul Normal 0.0-0.1 [facility] Comment on above: Performed By: #### U A #### [facility] [address] [place] [address] Dr. Mason Astudillo Basophils/100 WBC (Bld) 0.3 % Normal 0.2-2.0 [facility] Comment on above: Performed By: #### U A #### [facility] [address] [place] [address] Dr. Mason Astudillo EO # 0.1 103/ul Normal 0.0-0.7 [facility] Comment on above: Performed By: #### U A #### [facility] [address] [place] [address] Dr. Mason Astudillo Eosinophils/100 WBC (Bld) 2.0 % Normal 0.9-7.0 [facility] Comment on above: Performed By: #### U A #### [facility] [address] [place] [address] Dr. Mason Astudillo Erythrocyte distribution width (RBC) [Ratio] 14.6 % Normal 11.0-15.0 [facility] Comment on above: Performed By: #### U A #### [facility] [address] [place] [address] Dr. Mason Astudillo Hematocrit (Bld) [Volume fraction] 35.6 % Critically low 42.0-54.0 [facility] Comment on above: Performed By: #### U A #### [facility] [address] [place] [address] Dr. Mason Astudillo Hemoglobin (Bld) [Mass/Vol] 10.7 g/dL Critically low 14.0-18.0 [facility] Comment on above: Performed By: #### U A #### [facility] [address] [place] [address] Dr. Mason Astudillo IG # 0.03 10e3/ul Normal 0.00-0.03 [facility] Comment on above: Performed By: #### U A #### [facility] [address] [place] [address] Dr. Mason Astudillo IG % 0.5 % Normal 0.0-0.5 [facility] Comment on above: Performed By: #### U A #### [facility] [address] [place] [address] Dr. Mason Astudillo LYMPH # 1.0 103/ul Critically low 1.2-3.8 [facility] Comment on above: Performed By: #### U A #### [facility] [address] [place] [address] Dr. Mason Astudillo Lymphocytes/100 WBC (Bld) 15.5 % Critically low 20.5-60.0 [facility] Comment on above: Performed By: #### U A #### [facility] [address] [place] [address] Dr. Mason Astudillo MANUAL DIFF REQ NO Normal [facility] Comment on above: Performed By: #### U A #### [facility] [address] [place] [address] Dr. Mason Astudillo MCH (RBC) [Entitic mass] 27.4 pg Normal 25.9-34.0 [facility] Comment on above: Performed By: #### U A #### [facility] [address] [place] [address] Dr. Mason Astudillo MCHC (RBC) [Mass/Vol] 30.1 g/dL Normal 29.9-35.2 [facility] Comment on above: Performed By: #### U A #### [facility] [address] [place] [address] Dr. Mason Astudillo MCV (RBC) [Entitic vol] 91.0 fL Normal 80.0-94.0 [facility] Comment on above: Performed By: #### U A #### [facility] [address] [place] [address] Dr. Mason Astudillo MONO # 0.5 103/ul Normal 0.3-0.8 [facility] Comment on above: Performed By: #### U A #### [facility] [address] [place] [address] Dr. Mason Astudillo Monocytes/100 WBC (Bld) 8.1 % Normal 1.7-12.0 [facility] Comment on above: Performed By: #### U A #### [facility] [address] [place] [address] Dr. Mason Astudillo NEUT # 4.5 103/ul Normal 1.4-6.5 [facility] Comment on above: Performed By: #### U A #### [facility] [address] [place] [address] Dr. Mason Astudillo Neutrophils/100 WBC (Bld) 73.6 % Normal 43.0-75.0 [facility] Comment on above: Performed By: #### U A #### [facility] [address] [address] [address] Mason Astudillo Platelet mean volume (Bld) [Entitic vol] 10.1 fL Normal 9.5-13.5 [facility] Comment on above: Performed By: #### U A #### [facility] [address] [place] [address] Dr. Mason Astudillo PLT 138 103/ul Critically low 150-450 [facility] Comment on above: Performed By: #### U A #### [facility] [address] [place] [address] Dr. Mason Astudillo RBC 3.91 106/ul Critically low 4.70-6.10 [facility] Comment on above: Performed By: #### U A #### [facility] [address] [place] [address] Dr. Mason Astudillo WBC 6.1 103/ul Normal 4.0-11.0 [facility] Comment on above: Performed By: #### U A #### [facility] [address] [place] [address] Dr. Mason Astudillo FERRITINon 12-18-2021 Ferritin [Mass/Vol] 16.0 ng/mL Critically low 26.0-388.[address] [facility] Comment on above: Performed By: #### P OCGLUC #### [facility] [address] [place] [address] Dr. Mason Astudillo GLYCOHEMOGLOBIN A1Con 2021 ADA RECOMMENDATION SEE BELOW Normal [facility] Comment on above: Result Comment: ADA RECOMMENDED LIMIT 4.0 - 6.0 ADA THERAPEUTIC TARGET < 7.0 ACTION SUGGESTED > 7.0 Performed By: #### C BC #### [facility] [address] [place] [address] Dr. Mason Astudillo Glucose [Mass/Vol] 140 mg/dL Normal [facility] Comment on above: Performed By: #### C BC #### [facility] [address] [place] [address] Dr. Mason Astudillo HbA1c (Bld) [Mass fraction] 6.5 % Critically high 4.5-6.2 [facility] Comment on above: Performed By: #### C BC #### [facility] [address] [address] [address] Mason Astudillo IRON AND TIBCon 12-18-2021 % SATURATION 5.7 % Normal [facility] Comment on above: Performed By: #### P OCGLUC #### [facility] [address] [address] [address] Mason Astudillo Iron [Mass/Vol] 23.0 ug/dL Critically low 65.0-175.0 [facility] Comment on above: Performed By: #### P OCGLUC #### [facility] [address] [address] [address] Mason Astudillo TIBC DIRECT 413.0 ug/dL Normal 250.0-450.0 [facility] Comment on above: Performed By: #### P OCGLUC #### [facility] [address] [address] [address] Mason Astudillo PROF CHEM 8 (BAS METB)on Anion gap [Moles/Vol] 13.7 mmol/L Normal [facility] Comment on above: Performed By: #### P SAD #### [facility] [address] [address] [address] Mason Astudillo Calcium [Mass/Vol] 8.2 mg/dL Critically low 8.5-10.1 [facility] Comment on above: Performed By: #### P SAD #### [facility] [address] [address] [address] Mason Astudillo Chloride [Moles/Vol] 105 mmol/L Normal 98-107 [facility] Comment on above: Performed By: #### P SAD #### [facility] [address] [address] [address] Mason Astudillo CO2 [Moles/Vol] 27.1 mmol/L Normal 21.0-32.0 [facility] Comment on above: Performed By: #### P SAD #### [facility] [address] [place] [address] Dr. Mason Astudillo Creatinine [Mass/Vol] 1.32 mg/dL Critically high 0.70-1.30 [facility] Comment on above: Performed By: #### P SAD #### [facility] [address] [address] [address] Mason Astudillo EGFR-AF GUAMANIAN >60 Normal >=60 [facility] Comment on above: Performed By: #### P SAD #### [facility] [address] [address] [address] Mason Astudillo EGFR-NON AF GUAMANIAN 52 mL/min/1.73m2 Critically low >=60 [facility] Comment on above: Performed By: #### P SAD #### [facility] [address] [address] [address] Mason Astudillo Glucose [Mass/Vol] 121 mg/dL Critically high 74-[address] [facility] Comment on above: Performed By: #### P SAD #### [facility] [address] [address] [address] Mason Astudillo Potassium [Moles/Vol] 3.8 mmol/L Normal 3.5-5.1 [facility] Comment on above: Performed By: #### P SAD #### [facility] [address] [address] [address] Mason Astudillo Sodium [Moles/Vol] 142 mmol/L Normal 136-145 [facility] Comment on above: Performed By: #### P SAD #### [facility] [address] [address] [address] Mason Astudillo Urea nitrogen [Mass/Vol] 27.0 mg/dL Critically high 7.0-18.0 [facility] Comment on above: Performed By: #### P SAD #### [facility] [address] [address] [address] Mason Astudillo Urea nitrogen/Creatinine [Mass ratio] 20.5 mg/mg Normal [facility] Comment on above: Performed By: #### P SAD #### [facility] [address] [address] [address] Mason Astudillo VITAMIN B12on 12-18-2021 Cobalamin (Vitamin B12) [Mass/Vol] 423.0 pg/mL Normal 193.0-986.0 [facility] Comment on above: Performed By: #### P OCGLUC #### [facility] [address] [place] [address] Dr. Mason Astudillo CBC AUTO DIFFon 11-08-2021 BASO # 0.0 103/ul Normal 0.0-0.1 [facility] Comment on above: Performed By: #### U A #### [facility] [address] [place] [address] Dr. Mason Astudillo Basophils/100 WBC (Bld) 0.3 % Normal 0.2-2.0 [facility] Comment on above: Performed By: #### U A #### [facility] [address] [place] [address] Dr. Mason Astudillo EO # 0.2 103/ul Normal 0.0-0.7 [facility] Comment on above: Performed By: #### U A #### [facility] [address] [place] [address] Dr. Mason Astudillo Eosinophils/100 WBC (Bld) 2.6 % Normal 0.9-7.0 [facility] Comment on above: Performed By: #### U A #### [facility] [address] [place] [address] Dr. Mason Astudillo Erythrocyte distribution width (RBC) [Ratio] 15.1 % Critically high 11.0-15.0 [facility] Comment on above: Performed By: #### U A #### [facility] [address] [place] [address] Dr. Mason Astudillo Hematocrit (Bld) [Volume fraction] 36.2 % Critically low 42.0-54.0 [facility] Comment on above: Performed By: #### U A #### [facility] [address] [place] [address] Dr. Mason Astudillo Hemoglobin (Bld) [Mass/Vol] 11.7 g/dL Critically low 14.0-18.0 [facility] Comment on above: Performed By: #### U A #### [facility] [address] [place] [address] Dr. Mason Astudillo IG # 0.04 10e3/ul Critically high 0.00-0.03 [facility] Comment on above: Performed By: #### U A #### [facility] [address] [place] [address] Dr. Mason Astudillo IG % 0.7 % Critically high 0.0-0.5 [facility] Comment on above: Performed By: #### U A #### [facility] [address] [place] [address] Dr. Mason Astudillo LYMPH # 0.9 103/ul Critically low 1.2-3.8 [facility] Comment on above: Performed By: #### U A #### [facility] [address] [place] [address] Dr. Mason Astudillo Lymphocytes/100 WBC (Bld) 14.4 % Critically low 20.5-60.0 [facility] Comment on above: Performed By: #### U A #### [facility] [address] [place] [address] Dr. Mason Astudillo MANUAL DIFF REQ NO Normal [facility] Comment on above: Performed By: #### U A #### [facility] [address] [place] [address] Dr. Mason Astudillo MCH (RBC) [Entitic mass] 29.8 pg Normal 25.9-34.0 [facility] Comment on above: Performed By: #### U A #### [facility] [address] [place] [address] Dr. Mason Astudillo MCHC (RBC) [Mass/Vol] 32.3 g/dL Normal 29.9-35.2 [facility] Comment on above: Performed By: #### U A #### [facility] [address] [place] [address] Dr. Mason Astudillo MCV (RBC) [Entitic vol] 92.3 fL Normal 80.0-94.0 [facility] Comment on above: Performed By: #### U A #### [facility] [address] [place] [address] Dr. Mason Astudillo MONO # 0.5 103/ul Normal 0.3-0.8 [facility] Comment on above: Performed By: #### U A #### [facility] [address] [address] [address] Mason Astudillo Monocytes/100 WBC (Bld) 7.5 % Normal 1.7-12.0 [facility] Comment on above: Performed By: #### U A #### [facility] [address] [address] [address] Mason Astudillo NEUT # 4.5 103/ul Normal 1.4-6.5 [facility] Comment on above: Performed By: #### U A #### [facility] [address] [place] [address] Dr. Mason Astudillo Neutrophils/100 WBC (Bld) 74.5 % Normal 43.0-75.0 [facility] Comment on above: Performed By: #### U A #### [facility] [address] [place] [address] Dr. Mason Astudillo Platelet mean volume (Bld) [Entitic vol] 10.1 fL Normal 9.5-13.5 [facility] Comment on above: Performed By: #### U A #### [facility] [address] [place] [address] Dr. Mason Astudillo PLT 132 103/ul Critically low 150-450 [facility] Comment on above: Performed By: #### U A #### [facility] [address] [place] [address] Dr. Mason Astudillo RBC 3.92 106/ul Critically low 4.70-6.10 [facility] Comment on above: Performed By: #### U A #### [facility] [address] [place] [address] Dr. Mason Astudillo WBC 6.0 103/ul Normal 4.0-11.0 [facility] Comment on above: Performed By: #### U A #### [facility] [address] [place] [address] Dr. Mason Astudillo PROF CHEM 8 (BAS METB)on Anion gap [Moles/Vol] 8.9 mmol/L Normal [facility] Comment on above: Performed By: #### B MP #### [facility] [address] [address] [address] Mason Astudillo Calcium [Mass/Vol] 7.9 mg/dL Critically low 8.5-10.1 [facility] Comment on above: Performed By: #### B MP #### [facility] [address] [address] [address] Mason Astudillo Chloride [Moles/Vol] 101 mmol/L Normal 98-107 [facility] Comment on above: Performed By: #### B MP #### [facility] [address] [address] [address] Mason Astudillo CO2 [Moles/Vol] 28.3 mmol/L Normal 21.0-32.0 [facility] Comment on above: Performed By: #### B MP #### [facility] [address] [address] [address] Mason Astudillo Creatinine [Mass/Vol] 1.22 mg/dL Normal 0.70-1.30 [facility] Comment on above: Performed By: #### B MP #### [facility] [address] [address] [address] Mason Astudillo EGFR-AF GUAMANIAN >60 Normal >=60 [facility] Comment on above: Performed By: #### B MP #### [facility] [address] [address] [address] Mason Astudillo EGFR-NON AF GUAMANIAN 57 mL/min/1.73m2 Critically low >=60 [facility] Comment on above: Performed By: #### B MP #### [facility] [facility] [address] [address] [address] Mason Astudillo Glucose [Mass/Vol] 167 mg/dL Critically high 74-[address] [facility] Comment on above: Performed By: #### B MP #### [facility] [address] [address] [address] Mason Astudillo Potassium [Moles/Vol] 3.2 mmol/L Critically low 3.5-5.1 [facility] Comment on above: Performed By: #### B MP #### [facility] [address] [place], [place] [address] Dr. Mason Astudillo Sodium [Moles/Vol] 135 mmol/L Critically low 136-145 Th [facility] Comment on above: Performed By: #### B MP #### [facility] [address] [place], [place] [address] Dr. Mason Astudillo Urea nitrogen [Mass/Vol] 23.0 mg/dL Critically high 7.0-18.0 [facility] Comment on above: Performed By: #### B MP #### [facility] [address] [place], [place] [address] Dr. Mason Astudillo Urea nitrogen/Creatinine [Mass ratio] 18.9 mg/mg Normal [facility] Comment on above: Performed By: #### B MP #### [facility] [address] [place], [place] [address] Dr. Mason Astudillo XR CHEST 2 Von [...] by: BRITTANIE CASILLAS Date: 2021-11-08 14:01 Normal [facility] Vital Signs Date Time Vital Sign Value Performing Clinician Facility 12-23-2022 13:13-0400 Blood Pressure Location eMkhi VERGARA [facility] 12-23-2022 13:13-0400 Diastolic blood pressure 68 mm[Hg] Mekhi VERGARA [facility] 12-23-2022 13:13-0400 Heart rate 70 /min Mekhi VERGARA [facility] 12-23-2022 13:13-0400 Systolic blood pressure 120 mm[Hg] Mekhi VERGARA [facility] 05-10-2022 10:43-0400 Body height 177.8 cm Pacc 6 Work Phone: [facility] 05-10-2022 10:43-0400 Body temperature 97.81 [degF] Pacc 6 Work Phone: [facility] 05-10-2022 10:43-0400 Body weight 86.18 kg Pacc 6 Work Phone: [facility] 05-10-2022 10:43-0400 Diastolic blood pressure 75 mm[Hg] Pacc 6 Work Phone: [facility] 05-10-2022 10:43-0400 Heart rate 86 /min Pacc 6 Work Phone: [facility] 05-10-2022 10:43-0400 SaO2% (BldA) [Mass fraction] 97 % Pacc 6 Work Phone: [facility] 05-10-2022 10:43-0400 Systolic blood pressure 124 mm[Hg] Pacc 6 Work Phone: [facility] 04-22-2022 15:42-0400 Blood Pressure Location Mekhi VERGARA [facility] 04-22-2022 15:42-0400 Diastolic blood pressure 64 mm[Hg] Mekhi VERGARA [facility] 04-22-2022 15:42-0400 Heart rate 76 /min Mekhi VERGARA [facility] 04-22-2022 15:42-0400 Respiratory rate 60 /min Mekhi VERGARA [facility] 04-22-2022 15:42-0400 Systolic blood pressure 117 mm[Hg] Mekhi VERGARA [facility] 04-17-2022 12:55-0400 Body height 177.8 cm Tristin Wilcox MD, PhD Work Phone: [facility] 04-17-2022 12:55-0400 Body temperature 98.4 [degF] Tristin Wilcox MD, PhD Work Phone: [facility] 04-17-2022 12:55-0400 Body weight 86.18 kg Tristin Wilcox MD, PhD Work Phone: [facility] 04-17-2022 12:55-0400 Diastolic blood pressure 74 mm[Hg] Tristin Wilcox MD, PhD Work Phone: [facility] 04-17-2022 12:55-0400 Heart rate 70 /min Tristin Wilcox MD, PhD Work Phone: [facility] 04-17-2022 12:55-0400 Respiratory rate 16 /min Tristin Wilcox MD, PhD Work Phone: [facility] 04-17-2022 12:55-0400 SaO2% (BldA) [Mass fraction] 99 % Tristin Wilcox MD, PhD Work Phone: [facility] 04-17-2022 12:55-0400 Systolic blood pressure 127 mm[Hg] Tristin Wilcox MD, PhD Work Phone: [facility] 10-16-2021 14:39-0400 Blood Pressure Location 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 [facility] [place] 10-16-2021 14:39-0400 Diastolic blood pressure 76 mm[Hg] 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 [facility] [place] 10-16-2021 14:39-0400 Heart rate 68 /min 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 [facility] [place] 10-16-2021 14:39-0400 Respiratory rate 16 /min 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 [facility] 10-16-2021 14:39-0400 Systolic blood pressure 106 mm[Hg] 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 [facility] [place] Encounters Encounter Date Encounter Type Care Provider Facility Start: 08-28-2023 End: 08-28-2023 ambulatory [facility] Start: 08-21-2023 Orders Only Shaikh Lexi WORKMAN Work Phone: [facility] Comment on above: 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; Chronic heart failure with preserved ejection fraction (CMS/HCC); Chronic bilateral low back pain with bilateral sciatica Start: 08-19-2023 End: 08-20-2023 ambulatory Mekhi VERGARA Facility[facility] Start: 08-19-2023 End: 08-20-2023 ambulatory Mekhi VERGARA Facility[facility] Start: 08-19-2023 End: 08-19-2023 Patient encounter procedure Mekhi VERGARA [facility] Start: 08-19-2023 End: 08-19-2023 Patient encounter procedure Mekhi VERGARA [facility] Start: 07-28-2023 End: 07-28-2023 ambulatory SHAIKH LEXI Not Available Start: 07-03-2023 End: 07-03-2023 ambulatory SHAIKH LEXI Not Available Start: 07-03-2023 Patient encounter procedure Shaikh Lexi WORKMAN Work Phone: [facility] Start: 06-20-2023 End: 06-21-2023 ambulatory SHAIKH LEXI [...] Facility: [facility] Start: 03-07-2023 End: 03-07-2023 ambulatory [facility] Start: 02-03-2023 End: 02-04-2023 ambulatory Mallorie Joy MD Facility: [facility] Start: 12-23-2022 End: 12-24-2022 ambulatory SHAIKH LEXI Facility: [facility] Start: 12-23-2022 End: 12-23-2022 Patient encounter procedure Mekhi VERGARA [facility] Start: 11-21-2022 ambulatory NARENDRANATH LAKSHMIPATHY . Facility: Start: 10-31-2022 ambulatory NARENDRANATH LAKSHMIPATHY . Facility:[facility] Start: 10-29-2022 End: 10-29-2022 ambulatory NARENDRANATH LAKSHMIPATHY . Facility: Start: 10-24-2022 End: 10-25-2022 ambulatory ROGELIO EDELMIRATREVINPATHY . Facility:[facility] Start: 10-18-2022 End: 10-18-2022 ambulatory [facility] Start: 10-11-2022 End: 10-12-2022 ambulatory [facility] Start: 09-11-2022 End: 09-11-2022 ambulatory [facility] Start: 08-06-2022 End: 08-06-2022 Patient encounter procedure Mekhi Althea VERGARA [facility] Start: 07-30-2022 End: 07-31-[address] PAULINE WINSTON . Facility: Start: 07-09-2022 End: 07-09-2022 ambulatory SHAIKH Milena ELLIOTT Facility: Start: 06-25-2022 End: 06-26-2022 ambulatory SHAIKH Milena ELLIOTT Facility: Start: 05-17-2022 End: 05-17-2022 ambulatory TRISTIN WILCOX Facility:[facility] Start: 05-16-2022 Telephone encounter Maria Luisa Garcia RN C olorectal Surgery Comment on above: [facility]istband [facility] - [facility] Start: 05-10-2022 End: 05-11-2022 ambulatory TRISTIN WILCOX Facility:[facility] Start: 05-10-2022 Encounter for other preprocedural examination TRISTIN WILCOX [facility] Start: 05-10-2022 End: 05-10-2022 ambulatory Pacc [...] Start: 05-10-2022 End: 05-11-2022 ambulatory TRISTIN WILCOX Facility:[facility] Start: 05-10-2022 End: 05-10-2022 Admission to establishment Pacc Main 6 Work Phone: [facility] Start: 05-10-2022 End: 05-10-2022 Preprocedural examination done Pac Main 6 Work Phone: Pre Anesthesia Start: 05-09-2022 End: 05-10-2022 ambulatory SHAIKH Milena ELLIOTT Facility:[facility] Start: 05-01-2022 End: 05-01-2022 ambulatory FRANKY VERONICA Facility:[facility] Start: 04-25-2022 Telephone encounter Tristin Ruiz Col[facility] Comment on above: Appointment Start: 04-24-2022 Telephone encounter Marika Crabtree Col[facility] Surgery Comment on above: [facility] - [facility] Start: 04-22-2022 End: 04-22-2022 Patient encounter procedure Mekhi VERGARA [facility] Start: 04-18-2022 End: 04-19-2022 ambulatory SHAIKH Milena ELLIOTT Facility:[facility] Start: 04-17-2022 End: 04-18-2022 ambulatory TRISTIN WILCOX Facility:[facility] Start: 04-17-2022 End: 04-17-2022 Patient encounter procedure [...] End: 12-13-2021 Patient encounter procedure 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 [facility] [place] Start: 11-29-2021 End: 11-30-2021 ambulatory CALVIN MOREJON [...] Start: 10-09-2021 End: 10-09-2021 Off-Site Iraida James [facility] Start: 01-20-2017 End: 01-21-2017 Ambulatory DEFAULT PHYSICIAN Facility:[facility] Procedures Date Procedure Procedure Detail Performing Clinician Start: 08-05-2022 Cystoscopy Mekhi VERGARA Start: 05-10-2022 Antibody screen TRISTIN IWLCOX Comment on above: Order Comment: Specimen Type: BLOOD SPEC IMENOrdering Facility: [facility] Address: [address] [place] [address] Performed By: #### T [id number] ####[facility] BLOOD BANKCLIA [id number] [address] [place] Start: 05-09-2022 PSA screening SHAIKH LEXI Comment on above: Performed By: #### A1C #### [facility] [address] [place] [address] Dr. Mason Astudillo Start: 04-18-2022 PSA screening SHAIKH LEXI Comment on above: Performed By: #### PSAD #### [facility] [address] [place] [address] Dr. Mason Astudillo Start: 04-17-2022 Sigmoidoscopy flx [...] 01-04-2025 Glaucoma screening Diabetes: R etinopathy Screening [facility] Start: 07-03-2024 Medicare Annual Well ness (AWV) Medicare Annual Wellness (AWV) [facility] Start: 10-02-2023 End: 10-02-2023 Patient encounter procedure 10/02/2023 1:00 PM EDT Office Visit [facility] [address] [place] [address] Shaikh Elliott MD [address] [place] [id number] [facility] Start: 08-07-2023 Hemoglobin A1c measurement Diabetes: Hemoglobin A1C [facility] Start: 11-07-2022 Hemoglobin A1c/Hemoglobin.total in Blood H[facility] Start: 05-10-2022 End: 07-10-2022 Hemoglobin A1c in Blood [facility] Work Phone: Comment on above: Expected: 05/10/2022 , Expires: 07/10/2022 Start: 03-07-2022 Influenza vaccination INFLUENZA (#1) [facility] Start: 08-21-2021 COVID-19 VACCINE (4 - Booster for Moderna series) COVID-19 VACCINE (4 - Booster for Moderna series) [facility] Start: 07-07-2021 ADVANCE DIRECTIVE DISCUSSION ADVANCE DIRECTIVE DISCUSSION [facility] Start: 07-07-2021 DEPRESSION ASSESSMENT DEPRESSION ASS ESSMENT [facility] Start: 2001 PNEUMOCOCCAL: 65+ (1 - PCV) PNEUMOCOCCAL: 65+ (1 - PCV) [facility] Start: 1986 SHINGRIX VACCINE (1 of 2) SHINGRIX VACCINE (1 of 2) [facility] Start: 1981 DIABETES SCREEN DIABETES SCREEN [facility] Start: 12-17-1955 Urine microalbumin profile DTAP,TDAP,TD (1 - Tdap) [facility] Start: 1954 Hepatitis B surface antibody level LDL CHOLESTEROL [facility] Start: 1954 SPIROMETRY SPIROMETRY [facility] Start: 1946 3 comp foot exam completed DIABETIC FOOT EXAM [facility] Start: 1946 Hepatitis B screening URINE ALBUMIN:CREATININE RATIO [facility] Start: 1946 Hepatitis C antibody , confirmatory test DILATED RETINAL EXAM [facility] Start: 1942 PNEUMOCOCCAL: 65+ (1 - PCV) PNEUMOCOCCAL: 65+ (1 - PCV) [facility] Start: 1941 Hemoglobin A1c/Hemoglobin.total in Blood [facility] Immunizations Immunization Date Immunization Notes Care Provider [facility] 06-06-2023 Influenza, High-dose Seasonal, Quadrivalent, Preservative Free Shaikh Lexi WORKMAN Work Phone: [facility] 05-14-2022 influenza virus vacc ine, unspecified formulation Mekhi VERGARA [facility] 05-14-2022 Influenza, Seasonal, Quadrivalent, Adjuvanted Shaikh Lexi WORKMAN Work Phone: [facility] 06-26-2021 SARS-CoV-2 (COVID-19 ) mRNA-1273 vaccine Mekhi VERGARA [facility] 04-06-2021 influenza virus vacc ine, unspecified formulation Iraida James [facility] 03-28-2021 influenza virus vacc ine, unspecified formulation Mekhi VERGARA [facility] 03-28-2021 Influenza, injectabl e, Madin Lisa Canine Kidney, preservative free, quadrivalent Shaikh Lexi WORKMAN Work Phone: [facility] 02-04-2021 influenza virus vacc ine, unspecified formulation Iraida James [facility] 09-12-2020 SARS-CoV-2 (COVID-19 ) mRNA-1273 vaccine Mekhi VERGARA [facility] 08-14-2020 SARS-CoV-2 (COVID-19 ) mRNA-1273 vaccine Mekhi VERGARA [facility] 05-25-2020 pneumococcal polysaccharide vaccine, 23 valent Mekhi VERGARA [facility] 05-25-2020 zoster vaccine recombinant Mekhi VERGARA [facility] 02-25-2020 influenza virus vacc ine, unspecified formulation Mekhi VERGARA [facility] 02-25-2020 influenza, injectabl e, quadrivalent, preservative free Shaikh Lexi WORKMAN Work Phone: [facility] 02-25-2020 zoster vaccine recombinant Mekhi VERGARA [facility] 05-11-2019 tetanus toxoid, redu nimesh diphtheria toxoid, and acellular pertussis vaccine, adsorbed Mekhi VERGARA [facility] 03-23-2019 influenza virus vacc ine, unspecified formulation Mekhi VERGARA [facility] 03-23-2019 pneumococcal conjuga te vaccine, 13 valent Mekhi VERGARA [facility] 03-23-2019 Seasonal trivalent influenza vaccine, adjuvanted, preservative free Shaikh Lexi WORKMAN Work Phone: [facility] 04-30-2018 influenza virus vacc ine, unspecified formulation Mekhidominique VERGARA [facility] 04-30-2018 Seasonal trivalent influenza vaccine, adjuvanted, preservative free Shaikh Lexi WORKMAN Work Phone: [facility] 02-13-2017 influenza virus vacc ine, unspecified formulation Mekhi VERGARA [facility] 02-13-2017 Seasonal trivalent influenza vaccine, adjuvanted, preservative free Shaikh Lexi WORKMAN Work Phone: [facility] 04-19-2015 influenza virus vacc ine, unspecified formulation Mekhi VERGARA [facility] 04-19-2015 influenza, seasonal, injectable Shaikh Lexi WORKMAN Work Phone: [facility] 04-19-2015 pneumococcal polysaccharide vaccine, 23 valent Mekhi VERGARA [facility] 04-13-2015 influenza virus vacc ine, unspecified formulation Mekhi VERGARA [facility] 04-13-2015 influenza, high dose seasonal, preservative-free Shaikh Lexi WORKMAN Work Phone: [facility] 04-22-2007 influenza virus vacc ine, whole virus Shaikh Lexi WORKMAN Work Phone: [facility] 04-22-2007 influenza, whole Mekhi THOMAS [facility] Payers Date Payer Category Payer Private Health Insurance [facility] AARP SUPPLEMENT [id number] 2013-Present [phone] [address] [place] [address] Indemnity [id number] 2002 Unknown 2001 Medicare [id number] 1959 Medicare [id number] 1959 Unknown [id number] 1936 Unknown [id number] 2.16.840.1.489225.3.579.2 .593 1936 Unknown [id number] 2.16.840.1.839133.3.579.2 .593 1936 Unknown [id number] 2.16.840.1.542885.3.579.2 .593 1936 Unknown [id number] 2.16.840.1.438128.3.579.2 .593 1936 Unknown [id number] 2.16.840.1.960969.3.579.2 .593 1936 Unknown [id number] 2.16.840.1.809141.3.579.2 .593 1936 Unknown [id number] 2.16.840.1.824201.3.579.2 .593 1936 Unknown [id number] 2.16.840.1.085941.3.579.2 .593 1936 Unknown [id number] 2.16.840.1.015751.3.579.2 .593 1936 Unknown [id number] 2.16.840.1.135927.3.579.2 .593 1936 Unknown [id number] 2.16.840.1.616783.3.579.2 .593 1936 Unknown [id number] 2.16.840.1.482288.3.579.2 .593 1936 Unknown [id number] 2.16.840.1.572021.3.579.2 .593 1936 Unknown [id number] 2.16.840.1.503111.3.579.2 .593 1936 Unknown [id number] 2.16.840.1.343743.3.579.2 .593 1936 Unknown [id number] 2.16.840.1.273246.3.579.2 .593 1936 Unknown [id number] 2.16.840.1.265689.3.579.2 .593 1936 Unknown [id number] 2.16.840.1.413123.3.579.2 .593 1936 Unknown [id number] 2.16.840.1.960953.3.579.2 .593 1936 Unknown [id number] 2.16.840.1.968613.3.579.2 .593 1936 Unknown [id number] 2.16.840.1.708109.3.579.2 .593 1936 Unknown [id number] 2.16.840.1.988604.3.579.2 .593 1936 Unknown [id number] 2.16.840.1.140490.3.579.2 .593 1936 Unknown [id number] 2.16.840.1.927339.3.579.2 .593 1936 Unknown [id number] 2.16.840.1.632120.3.579.2 .593 1936 Unknown [id number] 2.16.840.1.573277.3.579.2 .593 1936 Unknown [id number] 2.16.840.1.695895.3.579.2 .196 1936 Unknown [id number] 2.16.840.1.750252.3.579.2 .196 1936 Unknown [id number] 2.16.840.1.255668.3.579.2 .196 1936 Unknown [id number] 2.16.840.1.768273.3.579.2 .196 1936 Unknown [id number] 2.16.840.1.719330.3.579.2 .196 1936 Unknown [id number] 2.16.840.1.336033.3.579.2 .196 1936 Unknown [id number] 2.16.840.1.549614.3.579.2 .125 1936 Unknown [id number] 2.16.840.1.228611.3.579.2 .1258 1936 Unknown [id number] 2.16.840.1.458252.3.579.2 .1258 1936 Unknown [id number] 2.16.840.1.209784.3.579.2 .125 1936 Unknown [id number] 2.16.840.1.855953.3.579.2 .125 1936 Unknown [id number] 2.16.840.1.620963.3.579.2 .1258 1936 Unknown [id number] 2.16.840.1.204699.3.579.2 .727 1936 Unknown [id number] 2.16.840.1.656549.3.579.2 .727 1936 Unknown [id number] 2.16.840.1.050525.3.579.2 .727 1936 Unknown [id number] 2.16.840.1.269431.3.579.2 .727 Social History Date Type Detail Facility Start: 10-09-2021 End: 06-16-2023 Tobacco smoking status Never smoked tobacco (finding) [facility] Start: 07-28-2023 Sex Assigned At Male F [facility] Tobacco smoking status Never [facility] [place] Start: 04-17-2022 End: 06-16-2023 Tobacco use and exposure Smokeless tobacco non-user [facility] Start: 04-17-2022 End: 05-10-2022 Alcohol intake Current drinker of alcohol (finding) [facility] Start: 04-17-2022 Alcohol Comment very occasionally Cl [facility] Start: 1935 Sex Assigned At Not on file [facility] Start: 04-07-2022 End: 05-10-2022 Exposure to SARS-CoV-2 (event) Not sure [facility] Start: 05-10-2022 Alcohol Comment Rarely [facility] Start: 07-28-2023 Alcohol intake Lifetime non-d abiel (finding) [facility] Start: 07-28-2023 History of Social function [facility] Start: 06-16-2023 Alcohol Comment caffeine: 1-2 cups per day coffee, soda [facility] Functional Status Date Assessment Result Facility 08-19-2023 Functional Status N/A [facility] 12-23-2022 Functional Status N/A [facility] 08-01-2022 Functional Status N/A [facility] 04-22-2022 Functional Status N/A [facility] Clinical Notes 10-09-2021 to 08-28-2023 Telephone Encounter - Maria Luisa Garcia RN - 05/16/2022 10:17 AM Darline Arriaga RN - 05/10/2022 2:13 PM Sindi Downing PA-C - 05/10/2022 10:50 AM EDTPatient Instructions Note Date & Type Note Facility 08-28-2023 Note [place] [facility] - [facility] Subjective Ben Guadalupe is a 87 [...] for gastroenteritis. He is currently at the [facility] for rehab. C/o back pain - he [...] by oral route (more content not included)... [facility] 08-28-2023 Note Telephone visit for 1 year follow up s/p Watchman implant. He was just discharged from [facility] on Friday for nausea/vomiting and acute hypokalemia. Denies chest pain and SOB. Says his BP has been good at PT. Review of Systems Cardiovascular: Positive for leg swelling. Musculoskeletal: Positive for arthritis, back pain and muscle weakness. Neurological: Positive for weakness. All other systems reviewed and are negative. [facility] 08-25-2023 Note [id number] [facility] 08-19-2023 Hospital Discharge instructions Patient [...] [facility] [address], [place] [address]- Business (1) When: Unknown Comments:Office will call to schedule follow up [facility] 08-19-2023 Note Custom Cystoscopy ? [...] a fever over 100 degrees. [facility] 08-19-2023 Evaluation + Plan note Diagnostic Tests [facility]ys[facility] Fish and Urine Cyto ([facility]) 08/19/23 [facility] 03-07-2023 Note Watchman implant 08/08 Continue ASA for lifelong, may stop plavix being that > 6 months since implantation No need for Antibiotic prophylaxis at this time [facility] 03-07-2023 Note Coronary artery dise ase is stable Continue GDMT- ASA, lipitor, metoprolol continue risk factor modifications- heart healthy diet, regular exercise as tolerated and continue all medications. [facility] 03-07-2023 Note Hypertension is well controlled Continue all meds [facility] 03-07-2023 Note Continue lipitor [facility] 03-07-2023 Note [id number] VASc= 4 No anticoagulation s/p watchman implantation Rate remains controlled metoprolol and diltiazem [facility] 03-07-2023 Note Patient here for 6 m o follow up s/p Watchman implant. Doing ok from cardiac standpoint. Denies chest pain, SOB, and palpitations. Still on Plavix as of now. Review of Systems Cardiovascular: Positive for leg swelling. Hematologic/Lymphatic: Negative. Musculoskeletal: Positive for arthritis, back pain, joint pain and myalgias. All other systems reviewed and are negative. [facility] 03-07-2023 Note [facility] C[facility] PROGR ESS NOTE [...] tablet 40 mg in the morning. HYDROcodone-acetaminophen (Cross[place]) 5-325 mg tablet Take 1 tablet by [...] Global left ventricul (more content not included)... [facility] 12-23-2022 Hospital Discharge instructions Patient Education 12/23/2022 [...] if anything looks unusual. Men with a [id number]-[id number] risk for skin cancer may want to see a billing collections specialist (clinical liaison) for an annual body check. What are the benefits of screening? Cancer screening is done to look for cancer in the very early stages, before it spreads and becomes harder to treat and before you would start to notice symptoms. Finding cancer early improves the chances of successful treatment. It may save your life. Where to find more information [place] [employer]: www.cancer.org Centers for Disease Control and Prevention: www.cdc.gov National Cancer [place]: www.cancer.gov Contact a health care provider if: [...] provider. Document Revised: 11/19/2021 Document Reviewed: 05/19/2020 [employer] Patient Education 2022 [employer]. Follow Up Care 04/22/2022 16:39:16 With:URSULA WORKMAN, Mekhi Oh, URL Address: [facility] [address] , [place] [address]- When: Unknown [facility] 10-24-2022 Note CONSULTATION CONSULTATION DATE: 10/24/2022 [...] which is stable. MEDICATION: Current medication includes Crossville 5 mg q.i.d. p.r.n. He reports it does improve his pain symptoms, improving his quality of life, level of functioning and his sleep pattern. He denies any side effects. He is also on Lyrica 75 mg at h.s., baclofen 10 mg at h.s. and Tylenol Extra Strength six pills a day, which he takes concomitantly with Crossville. EXAM: Notable for patient having left sided [...] our patients to inform us about any adpc-cyr-lpfhcek medications or herbal remedies/nutritional supplements/alternative remedies. 2. [...] [facility] 10-18-2022 Note [place] [facility] - [facility] Subjective Ben Guadalupe is a 86 [...] oriented to perso (more content not included)... [facility] 10-18-2022 Note Patient here for fol low up KINZA s/p Watchman device implant. Denies chest pain and SOB. Doing very well. Review of Systems Cardiovascular: Positive for leg swelling. Hematologic/Lymphatic: Negative. Musculoskeletal: Positive for arthritis, back pain, joint pain and myalgias. All other systems reviewed and are negative. [facility] 09-11-2022 Note [place] Cardiology - [facility] Subjective Ben Guadalupe is a 86 [...] Right lower le (more content not included)... [facility] 09-11-2022 Note Patient here for 2 w kaguyuk follow up Watchman implant. Says he feels good. Denies chest pain and SOB. Review of Systems Cardiovascular: Positive for leg swelling. Hematologic/Lymphatic: Negative. Musculoskeletal: Positive for arthritis, back pain and myalgias. All other systems reviewed and are negative. [facility] 08-06-2022 Hospital Discharge instructions Patient Education 08/06/2022 [...] Address: [facility] [address] [place] [address]- Business (1) When: Unknown Comments:Office will call to schedule follow up [facility] 07-30-2022 Note CONSULTATION CONSULTATION DATE: 07/30/2022 [...] the patient's pain. The patient currently takes Crossville 5/325 on a q.i.d. basis, Lyrica 75 [...] oriented x3, engaging with very good short term/mcc memory. IMPRESSION: Current working diagnosis on the [...] patient currently takes Lyrica 75 mg b.i.d., Crossville 5/325 q.i.d., baclofen 10 mg q.h.s. The [...] Dr. Elliott [facility] 05-17-2022 Note HNO ID: [id number] Author: Minesh Levy APRN.SECURITY RISK ANALYST Service: ? Author Type: Nurse Hot Tamale Man Type: Anesthesia Procedure Notes Filed: 05/17/2022 11:19 [...] May 17, 2022 TIME: 11:17 AM CSN: [id number] [facility] 05-17-2022 Note HNO ID: [id number] Author: Minesh Levy APRN.SECURITY RISK ANALYST Service: ? Author Type: Nurse Hot Tamale Man Type: Anesthesia Procedure Notes Filed: 05/17/2022 10:39 AM Note Text: ANESTHESIOLOGY PROCEDURE NOTE Airway General Information Procedure Start Time/Medication Administration: 05/17/2022 10:11 AM Patient location during procedure: OR Timeout Performed Pre-procedure: timeout performed Consent Obtained: Yes Patient identity confirmed: arm band and patient Staffing Anesthesiologist: Kandice Guadalupe MD SECURITY RISK ANALYST: Minesh Levy APRN.SECURITY RISK ANALYST Performed by: IGNACIO Indications and Patient Condition Indications for airway management: anesthesia Preoxygenated: yes anesthesia circuit Patient position: sniffing Method: asleep Difficult Mask: No Final Airway Details Final airway type: supraglottic airway Number of attempts at approach: 1 Final Supraglottic Airway: i-gel Size 5 Seal Adequate: yes Failed airway: no Unrecognized esophageal intubation: no Airway not difficult SIGNATURE: Minesh Levy APRN.SECURITY RISK ANALYST PATIENT NAME: Ben Guadalupe DATE: May 17, 2022 TIME: 10:38 AM CSN: [id number] [facility] 05-17-2022 Note HNO ID: [id number] Author: Shruthi Valdez RN Service: Nursing Author Type: Registered Nurse Type: Nursing Progress Note Filed: 05/17/2022 10:04 AM Note Text: Other: Dr. Ruiz and Dr. Guadalupe aware of K+ of 3.0. Awaiting orders. [facility] 05-16-2022 Miscellaneous Notes Attempt to call patient to review prep for surgery tomorrow, no answer, no voicemail available. documented in this encounter [facility] 05-10-2022 Note HNO ID: [id number] Author: Donna Arriaga RN Service: ? Author [...] Time spent on patient education: 20 minutes [facility] 05-10-2022 History of Present illness Narrative [...] education: 20 minutes documented in this encounter [facility] 05-10-2022 Note Education (KADIE) BEN GUADALUPE ([id number]) 1935 M Date Time Provider Department 05/10/22 [...] Encounter Status:Closed by DONNA ARRIAGA on 05/10/22 [facility] 05-10-2022 History and physical note HISTORY [...] Chronic kidney disease, stage 4 (severe) ([facility]) 12/20/2021 Chronic obstructive pulmonary disease ([facility]) 11/27/2021 Deep vein thrombosis (DVT) ([facility]) 1989 LLE- unprovoked Dementia in other diseases classified elsewhere, unspecified severity, without behavioral disturbance, psychotic disturbance, mood disturbance, and anxiety ([facility]) 11/27/2021 Diabetes ([facility]) Diabetes mellitus ([facility]) 11/01/2021 Essential (primary) hypertension 08/13/2017 Gastroesophageal reflux disease with esophagitis 05/10/2022 History of DVT (deep vein thrombosis) 05/10/2022 History of primary malignant neoplasm of urinary bladder 04/22/2022 History of prostate cancer 08/01/2015 Hypothyroidism unspecified 07/10/2021 Intracranial hemorrhage ([facility]) 05/10/2022 Neuropathy PAF (paroxysmal atrial fibrillation) ([facility]) 03/18/2022 Parkinson's disease ([facility]) PONV (postoperative nausea and vomiting) Radiculopathy, cervical [...] LLE +chronic LE edema Cards: Dr. Danielle [facility] 03/19/22 Denies any history of DC, CHF,PE, arrhythmias or murmurs. Denies CP, SOB, [...] 442 QTC Calculation (Bazett) 497 Calculated P Barron[place] 37 Calculated R Barronett 64 Calculated T Barronett -10 Impression NORMAL SINUS RHYTHM COMPLETE RIGHT BUNDLE BRANCH BLOCK INFERIOR T WAVE ABNORMALITY ABNORMAL ECG No results found for this or any previous visit (from the past 84293 hour(s)). OSH Cardiovascular testing ABIs 10/11/2021: Normal [...] Shashi FITCH 03/19/22 PAF (paroxysmal atrial fibrillation) ([facility]) Assessment: admitted to hospital 02/2022 with chest [...] TIME: 1:37 PM documented in this encounter [facility] 05-09-2022 Instructions Afia Downing PA-C - 05/09/2022 12:36 PM EDT PATIENT PREOPERATIVE INSTRUCTIONS Lorraine Wilcox* has scheduled you for your procedure at this surgery center: [facility] [place] Scheduling Office: [phone] --[address] [place] [address]. Please read below carefully for your personalized [...] or other anticoagulants without consulting with your quality assurance supervisor trim or prescribing physician. - Stop Vitamin E, [...] Procedures: - YOU MUST HAVE A RESPONSIBLE FACE HARDENER TAKE YOU HOME. A DEPUTY DIRECTOR OR MIDDLE SCHOOL PE TEACHER CANNOT BE MADE A RESPONSIBLE FACE HARDENER. - We recommend that a responsible person [...] call the Friday before. Your surgeon s tube builder airplane will tell you what time to call the office. - If you have not reached the departmental tube builder airplane by 5 P.M., call [phone] after 5 P.M. the day before your surgery. Please be aware that emergency situations arise, which may delay or change your surgical time. If this happens, we will notify you as soon as possible and regret any inconvenience. If you already have an Advance Directive, please fax a copy to [phone] or email to for it to be [...] Afia Downing PA-C documented in this encounter [facility] 04-25-2022 Miscellaneous Notes The Patient's granddaughter ( Milly Guadalupe) is calling to confirm surgery date, get all testing scheduled for her grandfather. Please call her at : [phone] at 11:30 AM or later, as she is at an appointment now. Thank you. documented in this encounter [facility] 04-24-2022 Miscellaneous Notes SPECIALTY CARE COORDINATION FOLLOW-UP NOTE Message left Pt to call in to discuss setting up surgery Offered 05/17/22 surgical date Any pre-operative business date within 30 days of surgical date Call back number left Signature Marika Zuñiga RN April 24, 2022 documented in this encounter [facility] 04-22-2022 Hospital Discharge instructions Patient [...] who: Are older than age 65. Are -Namibian. Are obese. Have a family history of [...] cells. Follow these instructions at home: Take ckiq-dox-gdvauxr and prescription medicines only as told by [...] 06/23/2006 Document Revised: 06/05/2018 Document Reviewed: 03/03/2017 [facility] Patient Education Vinja. Follow Up Care 02/25/2022 17:01:47 With:URSULA WORKMAN, Mekhi Oh, URL Address: [facility] [address], [place] [address] [phone] When:10/21/2022 [facility] 04-17-2022 History and physical note [...] closed Resting tone: NORMAL Squeeze tone: NORMAL Cpc present: Yes Anoscopy: The patient was placed [...] treatment plan: high documented in this encounter [facility] 04-11-2022 Note CONSULTATION PROCEDURE DATE: [...] shoulders to his hands and is losing public address technician on objects with his hands. His lower back feels tight, achy and spasmodic. He is having increasing bilateral lower extremity pain. Activities that aggravate his pain are standing, walking, lying, sitting and any physical activity. The use of medication, in addition to heat, decreases his pain. Medications include Lyrica 75 mg b.i.d., baclofen 10 mg q.h.s., Crossville 5/325 q.i. d. and a multivitamin regimen. [...] Lyrica and other medications well with no SOFTWARE SALES MANAGER side effects. Patient agrees with the plan of care, will be followed up post procedure. [facility] 02-14-2022 Note CONSULTATION PROCEDURE DATE: 02/14/2022 [...] and he was in obvious distress. His Crossville was increased to 5/325 q.i.d. at that time, which has been helpful. The patient states since the introduction of the Lyrica to his regimen that his Crossville is back down to t.i.d. The intent [...] of this medication in addition to the Crossville. Patient agrees with the plan of care [...] at home. Medication includes at this time Crossville 5/325 t.i.d., baclofen 10 mg daily and [...] the patient and noting his distress, his Crossville 5/325 will be increased to four times [...] will be followed up in the clinic. [facility] Signed and Approved by: CALVIN MOREJON [...] lower lumbar area. 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 He does use heat daily which is helpful, in addition to Vicks VapoRub. Medications include baclofen 10 mg q.h.s., Crossville 5/325 t.i.d. and a multivitamin regimen. The [...] degenerative disc. PLAN: A refill for his Crossville 5/325 t.i.d. will be sent to the pharmacy. Patient will receive bilateral lumbar trigger point injections, which he agrees to receive here in the clinic. We will maintain his medications at the current regimen. He is to increase the amount of frequency of heat application and menthol heat rub. We will see the patient in six weeks' time unless otherwise indicated. [facility] Signed and Approved by: CALVIN MOREJON . 12/06/2021 16:01:00 [facility] 11-21-2021 Note OPERATIVE NOTE OPERATION [...] in good condition. CC: Shaikh Lexi M.D. [facility] Signed and Approved by: DR YENNI STANLEY . 11/28/2021 10:45:00 [facility] 10-09-2021 Hospital Discharge instructions Patient [...] 03/19/2005 Document Revised: 10/08/2018 Document Reviewed: 10/08/2018 [facility] Patient Education 2020 [employer]. Follow Up Care 10/01/2021 07:48:54 With:Iraida James CNP Address: When:3 months only if needed [facility] Digestive Health Evaluation + Plan note Future Appointments Appointment Date:10/16/2021 02:20:00 PM Scheduled Provider: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 MD Location:[facility] Appointment Type:[address] Digestive Health Evaluation + Plan note Future Appointments Appointment Date:04/30/2022 01:40:00 PM Scheduled Provider: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 MD Location:[facility] Appointment Type: 15 Appointment Date:10/21/2022 03:15:00 PM Scheduled Provider:Mekhi VERGARA MD Location:[facility] Appointment Type:URO Office Visit Diagnostic Tests PendingPSA Total 04/22/22 [facility] Evaluation + Plan note Future Appointments Appointment Date:10/21/2022 03:15:00 PM Scheduled Provider:Mekhi VERGARA MD Location:[facility] Appointment Type:URO Office Visit Diagnostic Tests PendingUroVysion Fish and Urine Cyto ([facility]) 08/06/22 [facility] Evaluation + Plan note Future Appointments Appointment Date:06/23/2023 03:00:00 PM Scheduled Provider:Mekhi VERGARA MD Location:[facility] Appointment Type:URO Office Visit Diagnostic Tests PendingPSA Total 12/23/22 [facility] Evaluation note Diagnosis Fourth degree hemorrhoids- Primary Unspecified hemorrhoids with other complication [facility] Diagnosis Pre-op evaluation- Primary Preoperative examination, [...] Coronary atherosclerosis of unspecified type of vessel, [place] or graft PAF (paroxysmal atrial fibrillation) (HCC) [...] other complication [facility] Diagnosis Chronic venous insufficiency of lower extremity Chronic heart failure with preserved ejection fraction (CMS/HCC) Chronic bilateral low back pain with bilateral sciatica [facility] N[facility] No data available for this section [facility] Hospital Discharge instructions No data available for this section General Surgery [facility] note No data available for this section [facility] Summary Purpose Family History No [...] section and content) DATE CREATED AUTHOR 12/31/2017 [facility] DATE CREATED AUTHOR AUTHOR'S ORGANIZ ATION 05/31/2022 [facility] DATE CREATED AUTHOR AUTHOR'S ORGANIZ ATION 11/02/2022 [facility] DATE CREATED AUTHOR AUTHOR'S ORGANIZ ATION 06/20/2023 [facility] DATE CREATED AUTHOR AUTHOR'S ORGANIZ ATION 07/29/2023 [facility] DATE CREATED AUTHOR AUTHOR'S ORGANIZ ATION 09/05/2023 [facility] DATE CREATED AUTHOR AUTHOR'S ORGANIZ ATION 09/06/2023 [facility] Source Comments (unrecognize d section and content) In the event this informatio n is protected by the Federal Confidentiality of Alcohol and Drug Abuse Patient Records regulations: The Federal rules restrict any use of the information to criminally investigate or prosecute any alcohol or drug abuse patient.[facility] the event this information is protected by the Federal Confidentiality of Alcohol and Drug Abuse Patient Records regulations: The Federal rules restrict any use of the information to criminally investigate or prosecute any alcohol or drug abuse patient.[facility] the event this information is protected by the Federal Confidentiality of Alcohol and Drug Abuse Patient Records regulations: The Federal rules restrict any use of the information to criminally investigate or prosecute any alcohol or drug abuse patient.[facility] the event this information is protected by the Federal Confidentiality of Alcohol and Drug Abuse Patient Records regulations: The Federal rules restrict any use of the information to criminally investigate or prosecute any alcohol or drug abuse patient.[facility] the event this information is protected by the Federal Confidentiality of Alcohol and Drug Abuse Patient Records regulations: The Federal rules restrict any use of the information to criminally investigate or prosecute any alcohol or drug abuse patient.[facility] the event this information is protected by the Federal Confidentiality of Alcohol and Drug Abuse Patient Records regulations: The Federal rules restrict any use of the information to criminally investigate or prosecute any alcohol or drug abuse patient.[facility] Reason for Visit (unrecogniz ed section and content) Reason Comments 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 Reason Comments Appointment Reason Comments Pre-Op Visit Reason Comments Patient Education Care Teams (unrecognized sec tion and content) Home Care Coordinator Relationship Specialty Start Date End Date Franky Veronica (Fax) PCP - General Internal Medicine 06/16/12 Home Care Coordinator Relationship Specialty Start Date End Date Franky Veronica (Fax) PCP - General Internal Medicine 06/16/12 Home Care Coordinator Relationship Specialty Start Date End Date Franky Veronica (Fax) PCP - General Internal Medicine 06/16/12 Home Care Coordinator Relationship Specialty Start Date End Date Franky Veronica (Fax) PCP - General Internal Medicine 06/16/12 Home Care Coordinator Relationship Specialty Start Date End Date Franky Veronica PCP - General Internal Medicine 06/16/12 Home Care Coordinator Relationship Specialty Start Date End Date Shaikh [...] BE BASED ON THE PRIMARY CLINICAL RECORDS. [facility] [employer] [facility]. provides no warranty or guarantee of the accuracy or completeness of information in this document.
[2023-09-13] MEDS: LACTATED RINGER'S SOLUTION 1,000 ML 125 ML IV ×2 (14:18→22:17)
[2023-09-13] MEDS: METOPROLOL TARTRATE 25 MG TABLET PO (21:22)
[2023-09-13] MEDS: ENOXAPARIN SODIUM 40 MG/0.4 ML SYRINGE SUBQ (21:22)
[2023-09-13] MEDS: ATORVASTATIN CALCIUM 20 MG TABLET PO (21:22)
[2023-09-13] MEDS: PREGABALIN 100 MG CAPSULE PO (21:22)
[2023-09-13] MEDS: BACLOFEN 10 MG TABLET PO (21:22)
[2023-09-13] MEDS: DOCUSATE SODIUM 100 MG CAPSULE PO (21:22)
[2023-09-13] MEDS: MULTIVITAMIN TABLET 1 TAB PO (21:22)
[2023-09-13] MEDS: MAGNESIUM OXIDE 400 MG TABLET PO (21:23)
[2023-09-14] VITALS (22 sets, daily range): BP systolic 100–120; BP diastolic 52–69; PULSE 54–89; RESP 16–20; TEMP 36.4–37.1; O2SAT 91–95
[2023-09-14] MEDS: LEVOTHYROXINE SODIUM 25 MCG TABLET 50 MCG PO (05:08)
[2023-09-14] MEDS: PREGABALIN 100 MG CAPSULE PO ×3 (05:09→20:31)
[2023-09-14 05:18] LABS: Basophils Percent Auto 0.1 % (0.2-2.0); Hematocrit 38.3 % (42.0-54.0); Hemoglobin 12.8 g/dL (14.0-18.0); Immature Granulocytes Abs Auto 0.11 10^3/uL (0.00-0.03); Lymphocytes Absolute Auto 0.6 10^3/uL (1.2-3.8); Lymphocytes Percent Auto 5.4 % (20.5-60.0); Mean Corpuscular HGB Conc 33.4 g/dL (29.9-35.2); Mean Corpuscular Hemoglobin 30.8 pg (25.9-34.0); Mean Corpuscular Volume 92.3 fL (80.0-94.0); Monocytes Absolute Auto 0.2 10^3/uL (0.3-0.8); Monocytes Percent Auto 1.7 % (1.7-12.0); Neutrophils Percent Auto 91.8 % (43.0-75.0); Platelet Count 110 10^3/uL (150-450); Red Blood Count 4.15 10^6/uL (4.70-6.10); Red Cell Distribution Width 12.9 % (11.0-15.0); White Blood Count 10.9 10^3/uL (4.0-11.0)
[2023-09-14 05:35] LABS: Alanine Aminotransferase 28 U/L (16-63); Albumin Globulin Ratio 0.7; Albumin Level 2.6 g/dL (3.4-5.0); Alkaline Phosphatase 78 U/L (46-116); Anion Gap 15.4; Aspartate Amino Transferase 13 U/L (15-37); BUN Creatinine Ratio 28.5; Bilirubin Total 0.3 mg/dL (0.2-1.0); Calcium 8.8 mg/dL (8.5-10.1); Carbon Dioxide 24.5 mmol/L (21.0-32.0); Chloride 99 mmol/L (98-107); Estimated GFR (African America 51 (>=60); Estimated GFR (Non-African Ame 42 (>=60); Globulin 3.5 g/dL; Glucose 440 mg/dL (74-106); Potassium 3.9 mmol/L (3.5-5.1); Sodium 135 mmol/L (136-145); Total Protein 6.1 g/dL (6.4-8.2)
[2023-09-14] MEDS: PSYLLIUM 1 GM PO (08:22)
[2023-09-14] MEDS: L. ACIDOPHILUS/L.BULGARICUS 1 PACKET GRAN.PACK PO (08:22)
[2023-09-14] MEDS: DILTIAZEM HCL 180 MG CAP.ER.24H PO (08:22)
[2023-09-14] MEDS: CHOLECALCIFEROL (VITAMIN D3) 25 MCG/1,000 UNITS TABLET 50 MCG PO (08:22)
[2023-09-14] MEDS: ALLOPURINOL 300 MG TABLET PO (08:22)
[2023-09-14] MEDS: LACTATED RINGER'S SOLUTION 1,000 ML 125 ML IV (08:22)
[2023-09-14] MEDS: ASPIRIN 81 MG TAB.CHEW PO (08:22)
[2023-09-14 08:23] LABS: Glucometer 385 mg/dL (74-106)
[2023-09-14] MEDS: POTASSIUM CHLORIDE 10 MEQ ER TABLET 20 MEQ PO (08:23)
[2023-09-14] MEDS: DOCUSATE SODIUM 100 MG CAPSULE PO ×2 (08:23→20:31)
[2023-09-14] MEDS: TAMSULOSIN HCL 0.4 MG CAPSULE 0.400000000000000022 MG PO (08:23)
[2023-09-14] MEDS: METOPROLOL TARTRATE 25 MG TABLET PO (08:23)
[2023-09-14] MEDS: MULTIVITAMIN TABLET 1 TAB PO ×2 (08:23→20:31)
[2023-09-14] MEDS: FERROUS SULFATE 325 MG TABLET PO (08:23)
[2023-09-14] MEDS: FAMOTIDINE 20 MG TABLET PO (08:23)
[2023-09-14] MEDS: CANAGLIFLOZIN 100 MG TABLET 300 MG PO (08:23)
[2023-09-14] MEDS: DONEPEZIL HCL 10 MG TABLET PO (08:23)
[2023-09-14] MEDS: BACLOFEN 10 MG TABLET PO ×2 (08:25→20:30)
[2023-09-14] MEDS: OXYCODONE HCL 5 MG TABLET 10 MG PO ×2 (08:33→14:06)
[2023-09-14] MEDS: ACETAMINOPHEN 325 MG TABLET 650 MG PO ×2 (08:33→14:05)
--- NOTE | 2023-09-14 10:19 | US_ITS ---
The [address] [address] Patient Name: GUILLERMINA GUADALUPE MRN: [id number] date: 1935 Sex: M Assigned Patient Location: [place] Current Patient Location: [place] Accession/Order Number: [id number] Exam Date: 09/14/2023 07:15 Report Date: 09/15/2023 08:00 At the request of: SHAIKH NICHOLAS Procedure: US scrotum EXAMINATION: US scrotum HISTORY: scrotal cellulitis COMPARISON: No relevant comparison available. TECHNIQUE: High-resolution sonographic imaging of the scrotum and contents was performed. FINDINGS: The right testicle is normal in size, contour and homogeneous echotexture measuring 3.9 x 2.6 x 2.3 cm. Normal color and Doppler flow. The right epididymis is normal measuring 0.6 x 1.3 cm. Large cystic lesion with low-level echoes and no internal color flow in the right hemiscrotum measuring 8.0 x 7.0 x 3.4 cm. No right varicocele The left testicle is normal in size, contour and homogeneous echotexture measuring 3.4 x 2.7 x 2.1 cm. Normal color and Doppler flow. The left epididymis is normal measuring 1.0 x 0.9 x 0.9 cm. 10 mm area of anechoic echogenicity likely epididymal cyst No left hydrocele or varicocele US/US scrotum IMPRESSION: 8 cm complex cystic structure in the right hemiscrotum, the differential diagnosis includes hydrocele, epididymal cyst or spermatocele. This does not have the typical appearance of an abscess Electronically authenticated by: LEEANN PADILLA Date: 09/15/2023 08:00
--- NOTE | 2023-09-14 10:43 | P.HP_ITS ---
HPI H&P: HPI History of Present Illness Chief complaint: INTRACTABLE BACK PAIN Narrative: 87 y o m with hx of chronic back pain, was in rehab and had been improving gradually but then last evening, had an acute worsening of his pain to an extent where he could not even move. He has had similar episodes before and usually his back pain returns to its baseline. He has severe spinal stenosis at multiple levels, has limited mobility at baseline and treatment of his pain has been a real challenge. He was admitted overnight for pain control, PT/OT eval but earlier today on exam, I noted that he has sig erythema/swelling of his scrotum and penile region with foul smell. He has urinary catheter in place - place a few weeks ago for incontinence. He told me he was on abx for a fungal infection and UTI but I confirmed this from rehab he was in and it seems like he recently completed a course of Augmentin for UTI. His back pain is slightly better and nurses were able to move him out of bed briefly but his knees started to buckle due to weakness. He was scheduled to see palliative care as outpatient but could not due to being in rehab Opioid HPI Opioid Management Most Recent Opioid Data: Last Pain Assessment 09/14/23 10:35 Last ED Pain Assessment 09/13/23 13:00 Last MAR Pain Assessment 09/14/23 10:42 Risks, benefits, and alternatives of opioids discussed: Yes Opioid side effects: none Review of Systems ROS Status of ROS 10 or more systems reviewed and unremark able except as noted in history and below [facility] Medical History (Updated 09/14/23 @ 10:59 by Shaikh Lexi MD) Chronic kidney disease ?N18.9 - Chronic kidney disease, unspecified (ICD-10) Spondylosis ?M47.9 - Spondylosis, unspecified (ICD-10) Radiculopathy ?M54.10 - Radiculopathy, site unspecified (ICD-10) Chronic diastolic heart failure ?I50.32 - Chronic diastolic (congestive) heart failure (ICD-10) Type 2 diabetes mellitus ?E11.9 - Type 2 diabetes mellitus without complications (ICD-10) Afib ?I48.91 - Unspecified atrial fibrillation (ICD-10) Spinal stenosis ?M48.00 - Spinal stenosis, site unspecified (ICD-10) Peripheral edema ?R60.0 - Localized edema (ICD-10) Hypertension ?I10 - Essential (primary) hypertension (ICD-10) Lumbar spondylosis ?M47.816 - Spondylosis without myelopathy or radiculopathy, lumbar region (ICD-10) Chronic low back pain ?M54.50 - Low back pain, unspecified (ICD-10) ?G89.29 - Other chronic pain (ICD-10) Anxiety ?F41.9 - Anxiety disorder, unspecified (ICD-10) Shortness of breath ?R06.02 - Shortness of breath (ICD-10) 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 ?R33.9 - Retention of urine, unspecified (ICD-10) Ambulatory dysfunction ?R26.2 - Difficulty in walking, not elsewhere classified (ICD-10) HLD (hyperlipidemia) ?E78.5 - Hyperlipidemia, unspecified (ICD-10) Depression with anxiety ?F41.8 - Other specified anxiety disorders (ICD-10) Acute hypokalemia ?E87.6 - Hypokalemia (ICD-10) Intractable low back pain ?M54.59 - Other low back pain (ICD-10) CKD stage 3 due to type 2 diabetes mellitus ?E11.22 - Type 2 diabetes mellitus with diabetic chronic kidney disease (ICD- 10) ?N18.30 - Chronic kidney disease, stage 3 unspecified (ICD-10) Lumbar stenosis with neurogenic claudication ?M48.062 - Spinal stenosis, lumbar region with neurogenic claudication (ICD- 10) Osteoarthritis of right knee ?M17.11 - Unilateral primary osteoarthritis, right knee (ICD-10) Chronic pain syndrome ?G89.4 - Chronic pain syndrome (ICD-10) Chronic prescription opiate use ?Z79.891 - terminal supervisor (current) use of opiate analgesic (ICD-10) Osteoarthritis, 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 - Primary osteoarthritis, unspecified shoulder (ICD-10) Right shoulder pain ?M25.511 - Pain in right shoulder (ICD-10) Lumbar radiculopathy ?M54.16 - Radiculopathy, lumbar region (ICD-10) Abdominal pain ?R10.9 - Unspecified abdominal pain (ICD-10) Nausea & vomiting ?R11.2 - Nausea with vomiting, unspecified (ICD-10) Esophagitis ?K20.90 - Esophagitis, unspecified without bleeding (ICD-10) Muscle spasm ?M62.838 - Other muscle spasm (ICD-10) Lumbar stenosis ?M48.061 - Spinal stenosis, lumbar region without neurogenic claudication (ICD-10) Retraction of blood clot ?I74.9 - Embolism and thrombosis of unspecified artery (ICD-10) Inguinal hernia ?K40.90 - Unilateral inguinal hernia, without obstruction or gangrene, not specified as recurrent (ICD-10) Presence of Watchman left atrial appendage closure device ?Z95.818 - Presence of other cardiac implants and grafts (ICD-10) Low back pain ?M54.50 - Low back pain, unspecified (ICD-10) Rheumatoid arthritis ?M06.9 - Rheumatoid arthritis, unspecified (ICD-10) Osteoarthritis ?M19.90 - Unspecified osteoarthritis, unspecified site (ICD-10) Gout ?M10.9 - Gout, unspecified (ICD-10) DVT (deep venous thrombosis) ?I82.409 - Acute embolism and thrombosis of unspecified deep veins of unspecified lower extremity (ICD-10) Bladder cancer ?C67.9 - Malignant neoplasm of bladder, unspecified (ICD-10) Hearing deficit ?H91.90 - Unspecified hearing loss, unspecified ear (ICD-10) IBS (irritable bowel syndrome) ?K58.9 - Irritable bowel syndrome without diarrhea (ICD-10) Acid reflux ?K21.9 - Gastro-esophageal reflux disease without esophagitis (ICD-10) Hypothyroid ?E03.9 - Hypothyroidism, unspecified (ICD-10) Diabetes 1.5, managed as type 2 ?E13.9 - Other specified diabetes mellitus without complications (ICD-10) Kidney stone ?N20.0 - Calculus of kidney (ICD-10) Prostate cancer ?C61 - Malignant neoplasm of prostate (ICD-10) CPAP (continuous positive airway pressure) dependence ?Z99.89 - Dependence on other enabling machines and devices (ICD-10) Sleep apnea ?G47.30 - Sleep apnea, unspecified (ICD-10) Hypercholesterolemia ?E78.00 - Pure hypercholesterolemia, unspecified (ICD-10) Surgical History H/O transurethral resection of bladder tumor (TURBT) ?Z98.890 - Other specified postprocedural states (ICD-10) ?Z86.03 - Personal history of neoplasm of uncertain behavior (ICD-10) H/O arthroscopy of knee ?Z98.890 - Other specified postprocedural states (ICD-10) S/P tonsillectomy and adenoidectomy ?Z90.89 - Acquired absence of other organs (ICD-10) Previous back surgery ?Z98.890 - Other specified postprocedural states (ICD-10) H/O neck surgery ?Z98.890 - Other specified postprocedural states (ICD-10) Family History (Updated 09/13/23 @ 13:25 by Padmini Schmitz) Other Family history of diabetes mellitus Social History (Updated 07/18/23 @ 22:27 by Betsy Rojo) Within the past year, how often did you have a drink containing alcohol: never Score interpretation: A score less than 4 is consistent with normal alcohol consumption. Smoking status: Never smoker Non-prescribed substance use: denies use Previous occupational history: retired Known occupational exposures/hazards: No Highest level of school completed/degree received: high school graduate Are you now , , , , never or living with a partner: In a typical week, how many times do you talk on the telephone with family, friends, or neighbors: 3 or more times per week How often do you get together with friends or relatives: 3 or more times per week How often do you attend taoism or yazidism services: never Do you belong to any clubs or organizations such as taoism groups unions, fraternal or athletic groups, or school groups: no Total score: 1 Score interpretation: A score of less than or equal to 1 indicates the most socially isolated. Little interest or pleasure in doing things: not at all Feeling down, depressed, or hopeless: not at all Feel stressed/tense/nervous/anxious/difficulty sleeping: not at all Do you think of yourself as: straight/heterosexual Gender Identity: male Meds Home Medications and Allergies Home Medications Medication Instructions Recorded Confirmed Type albuterol sulfate 90 mcg/actuation 1 inh inhalation Q4H PRN shortness 12/27/22 09/13/23 History aerosol inhaler (ProAir HFA) of breath or wheezing allopurinol 300 mg tablet 300 mg PO DAILY 12/27/22 09/13/23 History cholecalciferol (vitamin D3) 25 50 mcg PO DAILY 12/27/22 09/13/23 History mcg (1,000 unit) capsule (Vitamin D3) levothyroxine 50 mcg tablet 50 mcg PO DAILY 12/27/22 09/13/23 History nitroglycerin 0.4 mg sublingual 0.4 mg sublingual Q5M PRN chest 12/27/22 09/13/23 History tablet (Nitrostat) pain aspirin 81 mg capsule 81 mg PO DAILY 01/09/23 09/13/23 History diltiazem HCl 180 mg 180 mg PO DAILY 01/09/23 09/13/23 History capsule,extended release 24 hr donepezil 10 mg tablet (Aricept) 10 mg PO DAILY 01/09/23 09/13/23 History famotidine 20 mg tablet 20 mg PO DAILY 01/09/23 09/13/23 History ferrous sulfate 325 mg (65 mg 325 mg PO .every other day 01/09/23 09/13/23 History iron) tablet fluticasone propionate 50 2 spray intranasal DAILY PRN nasal 01/09/23 09/13/23 History mcg/actuation nasal congestion spray,suspension (Flonase Allergy Relief) furosemide 20 mg tablet 40 mg PO BID 01/09/23 09/13/23 History losartan 100 mg tablet 100 mg PO DAILY 01/09/23 09/13/23 History magnesium oxide,aspartate,citr 400 mg PO BEDTIME 01/09/23 09/13/23 History metoprolol tartrate 25 mg tablet 25 mg PO BID 01/09/23 09/13/23 History psyllium husk 0.4 gram capsule 0.4 g PO DAILY 01/09/23 09/13/23 History (Metamucil) tamsulosin 0.4 mg capsule (Flomax) 0.4 mg PO DAILY 01/09/23 09/13/23 History atorvastatin 20 mg tablet 20 mg PO DAILY 01/10/23 09/13/23 History baclofen 10 mg tablet 10 mg PO BID muscle spasm 01/10/23 09/13/23 History Lactobacillus rhamnosus GG 10 1 cap PO DAILY 07/18/23 09/13/23 History billion cell capsule (Culturelle) dapagliflozin propanediol 10 mg 10 mg PO DAILY 07/18/23 09/13/23 History tablet (Farxiga) glipizide 5 mg tablet 5 mg PO BID 07/18/23 09/13/23 History multivitamin 1 tab PO BID 07/18/23 09/13/23 History pregabalin 100 mg capsule (Lyrica) 100 mg PO TID 5 days #15 caps 08/25/23 09/13/23 Rx acetaminophen 500 mg tablet 1,000 mg PO Q8H PRN pain 09/13/23 09/13/23 History (Tylenol Extra Strength) docusate sodium 100 mg capsule 100 mg PO BID 09/13/23 09/13/23 History (Colace) metolazone 2.5 mg tablet 2.5 mg PO DAILY 09/13/23 09/13/23 History naloxone 4 mg/actuation nasal 4 mg intranasal DAILY PRN opioid 09/13/23 09/13/23 History spray (Narcan) overdose ondansetron 4 mg disintegrating 4 mg PO Q6H PRN nausea and vomiting 09/13/23 09/13/23 History tablet oxycodone 10 mg tablet 10 mg PO Q6H PRN pain 09/13/23 09/13/23 History potassium chloride 20 mEq 20 meq PO DAILY 09/13/23 09/13/23 History tablet,extended release(part/cryst) (Klor-Con M) Allergies Allergy/AdvReac Type Severity Reaction Status Date / Time tizanidine [From Zanaflex] Allergy Unknown Verified 07/18/23 19:12 acetaminophen [From Percocet] AdvReac Mild Vomiting Verified 07/18/23 19:12 cyclobenzaprine AdvReac Mild Hallucinati Verified 07/18/23 19:12 [From Flexeril] ng oxycodone [From Percocet] AdvReac Mild Vomiting Verified 07/18/23 19:12 tramadol AdvReac Mild Vomiting Verified 07/18/23 19:12 Exam Constitutional Vital Signs, click to edit/add: Last Vital Signs Temp 98.7 F 09/14/23 08:15 Pulse 89 09/14/23 09:56 Resp 16 09/14/23 08:15 BP 120/69 09/14/23 08:22 Pulse Ox 91 L 09/14/23 08:15 O2 Del Method Room Air 09/14/23 08:15 Documenting provider has reviewed patient's vital signs: yes General appearance: cooperative and frail appearing Respiratory Common normals: normal respiratory effort, no use of accessory muscles and clear to auscultation bilaterally Cardio Common normals: regular rate, regular rhythm, S1 normal heart sound and S2 normal heart sound Penis: edematous and erythematous Meatus: erythema Scrotum: testes descended bilaterally, cremasteric reflex present, erythematous and edematous Extremity Common normals: normal to inspection and full ROM Neuro Common normals: oriented x3, moves all extremities and no sensory deficits noted Psych Common normals: mental status grossly normal and thought process normal Results Labs Labs: Short CBC 09/13/23 09/14/23 Range/Units 12:51 04:53 WBC 10.1 10.9 (4.0-11.0) 10^3/uL Hgb 12.7 L 12.8 L (14.0-18.0) g/dL Hct 37.8 L 38.3 L (42.0-54.0) % Plt Count 117 L 110 L (150-450) 10^3/uL BMP 09/13/23 09/14/23 12:51 04:53 Sodium 136 135 L Potassium 3.5 3.9 Chloride 98 99 Carbon Dioxide 30.0 24.5 BUN 37.0 H 45.0 H Creatinine 1.79 H 1.58 H Glucose 274 H 440 H Calcium 8.5 8.8 Liver Function 09/13/23 09/14/23 Range/Units 12:51 04:53 Total Bilirubin 0.5 0.3 (0.2-1.0) mg/dL AST 12 L 13 L (15-37) U/L ALT 29 28 (16-63) U/L Alkaline Phosphatase 78 78 (46-116) U/L Albumin 2.7 L 2.6 L (3.4-5.0) g/dL Assessment and Plan Assessment and Plan (1) Intractable low back pain: Assessment and Plan: Chronic back pain, with periods of acute exacerbation and inability to ambulate/move as a result of pain. No sig change noted on CT LS spine. PT/OT eval. Increase Oxycodone 10 from q6 to q4 C/w lyrica Pain is overall improved from yesterday but he is still quite uncomfortable and in pain Palliative care consulted. (2) Cellulitis of scrotum: Assessment and Plan: Start on IV vanc/levaquin Recent abx use - Augmentin Scrotal US ordered. At high risk of poor outcome/resistant infection due to repeated hospitalization, recent abx use. Change urinary catheter (3) Yeast infection: Assessment and Plan: Based on clinical exam - start on fluconazole. Stop SLGT2 inhibitors as associated with genitourinary yeast infection Change catheter. (4) Decubitus ulcer of sacral area: Assessment and Plan: Due to being immobile. Wound consulted. Qualifiers: Pressure injury stage: unspecified pressure injury stage Qualified Code(s): L89.159 - Pressure ulcer of sacral region, unspecified stage (5) DAVID (acute kidney injury): Assessment and Plan: Normal baseline Cr. Presented with Cr of 1.7 Improved with hydration. d/c fluid to avoid risk of volume overload. (6) Unable to ambulate: Assessment and Plan: due to pain. PT/OT eval. (7) Chronic diastolic heart failure: Assessment and Plan: Stop IVF. Will resume lasix from tomorrow. (8) Type 2 diabetes mellitus: Assessment and Plan: Poorly controlled as he received Steroids in ED. Will add lantus 20 unts qhs. C/w ssi. 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 Not on AC due to prior hx of GI Bleed. Has watchman Qualifiers: Atrial fibrillation type: paroxysmal Qualified Code(s): I48.0 - Paroxysmal atrial fibrillation (10) Hypertension: Assessment and Plan: C/w cardizem. Hold losartan as BP is at goal w/o it. Qualifiers: Hypertension type: primary hypertension Qualified Code(s): I10 - Essential (primary) hypertension (11) HLD (hyperlipidemia): Assessment and Plan: C/w statin Qualifiers: Hyperlipidemia type: unspecified Qualified Code(s): E78.5 - Hyperlipidemia, unspecified (12) Depression with anxiety: Assessment and Plan: C/w lexapro (13) Hypothyroid: Assessment and Plan: c/w synthyroid Qualifiers: Hypothyroidism type: unspecified Qualified Code(s): E03.9 - Hypothyroidism, unspecified Plan Change to inpatient - as multiple active problems including scrotal cellulitis, genitourinary yeast infection, intractable back pain, ambulatory dysfunction, DAVID and considering repeated hospital admissions, his age, recent abx use, use of SGLT2 inhibitors (increased risk of forniers gangrene) - he will require close monitoring, inpatient treatment as there is high risk of poor outcome, readmission if not treated appropriately. Urinary Catheter Management Urinary Catheter Management Urethral: Cath placed during this visit: no
[2023-09-14] MEDS: INSULIN ASPART 300 UNIT/3 ML PEN SUBQ ×3 (11:27→20:33)
[2023-09-14 11:28] LABS: Glucometer 391 mg/dL (74-106)
[2023-09-14] MEDS: FLUCONAZOLE 150 MG TABLET PO (11:28)
[2023-09-14] MEDS: LEVOFLOXACIN IN DEXTROSE 5 % 500 MG/100 ML PIGGYBACK 100 MG IV (11:30)
[2023-09-14] MEDS: ESCITALOPRAM 10 MG TABLET 20 MG PO (11:30)
[2023-09-14] MEDS: VANCOMYCIN HCL 1,000 MG in 0.9 % SODIUM CHLORIDE 250 ML 250 MG IV (14:06)
[2023-09-14] MEDS: NYSTATIN 15 GM POWDER 1 APPLIC TOPICAL ×2 (14:06→20:32)
[2023-09-14 14:45] LABS: Bilirubin Urine NEGATIVE (NEGATIVE); Blood Urine MODERATE (NEGATIVE); Clarity Urine CLEAR (CLEAR); Color Urine LT. YELLOW (YELLOW); Glucose Urine UA >=1000 mg/dL (NEGATIVE); Ketones Urine NEGATIVE (NEGATIVE); Leukocyte Esterase Urine SMALL (NEGATIVE); Nitrite Urine POSITIVE (NEGATIVE); Protein Urine NEGATIVE (NEG/TRACE); Specific Gravity Urine 1.015 (1.005-1.025); Urobilinogen Urine 0.2 EU/dL (0.2-1.0)
[2023-09-14 14:58] LABS: Bacteria Urine MODERATE #/HPF (NONE SEEN); Mucus Urine NONE SEEN (NONE SEEN); Squamous Epithelial Cell Urine RARE #/LPF (NONE/RARE); WBC Urine 20-50 #/HPF (NONE SEEN)
[2023-09-14 15:00] LABS: Cast Seen? NONE SEEN #/LPF (NONE SEEN); Crystals Seen? None Seen #/HPF (None Seen); Urine Culture Indicated ALREADY ORDERED
[2023-09-14 16:33] LABS: Glucometer 314 mg/dL (74-106)
[2023-09-14 20:14] LABS: Glucometer 240 mg/dL (74-106)
[2023-09-14] MEDS: MAGNESIUM OXIDE 400 MG TABLET PO (20:30)
[2023-09-14] MEDS: ATORVASTATIN CALCIUM 20 MG TABLET PO (20:30)
[2023-09-14] MEDS: ENOXAPARIN SODIUM 40 MG/0.4 ML SYRINGE SUBQ (20:31)
[2023-09-15] VITALS (23 sets, daily range): BP systolic 97–125; BP diastolic 61–70; PULSE 53–71; RESP 16–18; TEMP 36.3–36.8; O2SAT 93–96
[2023-09-15] MEDS: OXYCODONE HCL 5 MG TABLET 10 MG PO ×4 (00:10→23:07)
[2023-09-15] MEDS: LEVOTHYROXINE SODIUM 25 MCG TABLET 50 MCG PO (05:07)
[2023-09-15] MEDS: PREGABALIN 100 MG CAPSULE PO ×3 (05:07→21:08)
[2023-09-15 05:09] LABS: Basophils Percent Auto 0.2 % (0.2-2.0); Eosinophils Percent Auto 0.2 % (0.9-7.0); Hematocrit 35.6 % (42.0-54.0); Hemoglobin 11.7 g/dL (14.0-18.0); Immature Granulocytes Abs Auto 0.07 10^3/uL (0.00-0.03); Immature Granulocytes Pct Auto 0.9 % (0.0-0.5); Lymphocytes Absolute Auto 1.1 10^3/uL (1.2-3.8); Lymphocytes Percent Auto 13.3 % (20.5-60.0); Mean Corpuscular HGB Conc 32.9 g/dL (29.9-35.2); Mean Corpuscular Hemoglobin 30.7 pg (25.9-34.0); Mean Corpuscular Volume 93.4 fL (80.0-94.0); Mean Platelet Volume 11.3 fL (9.5-13.5); Monocytes Absolute Auto 0.4 10^3/uL (0.3-0.8); Monocytes Percent Auto 5.5 % (1.7-12.0); Neutrophils Absolute Auto 6.4 10^3/uL (1.4-6.5); Neutrophils Percent Auto 79.9 % (43.0-75.0); Platelet Count 95 10^3/uL (150-450); Red Blood Count 3.81 10^6/uL (4.70-6.10); White Blood Count 8.1 10^3/uL (4.0-11.0)
[2023-09-15 05:31] LABS: Alanine Aminotransferase 38 U/L (16-63); Albumin Globulin Ratio 0.8; Albumin Level 2.5 g/dL (3.4-5.0); Alkaline Phosphatase 67 U/L (46-116); Anion Gap 11.1; Aspartate Amino Transferase 23 U/L (15-37); BUN Creatinine Ratio 30.6; Bilirubin Total 0.3 mg/dL (0.2-1.0); Calcium 8.6 mg/dL (8.5-10.1); Carbon Dioxide 27.5 mmol/L (21.0-32.0); Chloride 103 mmol/L (98-107); Estimated GFR (African America >60 (>=60); Estimated GFR (Non-African Ame 57 (>=60); Globulin 3.2 g/dL; Glucose 223 mg/dL (74-106); Potassium 3.6 mmol/L (3.5-5.1); Sodium 138 mmol/L (136-145); Total Protein 5.7 g/dL (6.4-8.2)
[2023-09-15 07:54] LABS: Glucometer 294 mg/dL (74-106)
[2023-09-15] MEDS: CHOLECALCIFEROL (VITAMIN D3) 25 MCG/1,000 UNITS TABLET 50 MCG PO (08:31)
[2023-09-15] MEDS: POTASSIUM CHLORIDE 10 MEQ ER TABLET 20 MEQ PO (08:31)
[2023-09-15] MEDS: PSYLLIUM 1 GM PO (08:31)
[2023-09-15] MEDS: FLUCONAZOLE 150 MG TABLET PO (08:31)
[2023-09-15] MEDS: ACETAMINOPHEN 325 MG TABLET 650 MG PO ×2 (08:31→16:40)
[2023-09-15] MEDS: ASPIRIN 81 MG TAB.CHEW PO (08:31)
[2023-09-15] MEDS: ESCITALOPRAM 10 MG TABLET 20 MG PO (08:32)
[2023-09-15] MEDS: ALLOPURINOL 300 MG TABLET PO (08:32)
[2023-09-15] MEDS: TAMSULOSIN HCL 0.4 MG CAPSULE 0.400000000000000022 MG PO (08:32)
[2023-09-15] MEDS: DOCUSATE SODIUM 100 MG CAPSULE PO ×2 (08:32→20:14)
[2023-09-15] MEDS: METOPROLOL TARTRATE 25 MG TABLET PO (08:32)
[2023-09-15] MEDS: DILTIAZEM HCL 180 MG CAP.ER.24H PO (08:32)
[2023-09-15] MEDS: L. ACIDOPHILUS/L.BULGARICUS 1 PACKET GRAN.PACK PO (08:32)
[2023-09-15] MEDS: DONEPEZIL HCL 10 MG TABLET PO (08:32)
[2023-09-15] MEDS: INSULIN ASPART 300 UNIT/3 ML PEN SUBQ ×4 (08:33→21:09)
[2023-09-15] MEDS: FAMOTIDINE 20 MG TABLET PO (08:33)
[2023-09-15] MEDS: MULTIVITAMIN TABLET 1 TAB PO ×2 (08:33→20:14)
[2023-09-15] MEDS: BACLOFEN 10 MG TABLET PO ×2 (08:33→20:14)
--- NOTE | 2023-09-15 08:38 | W.PM.WC_ITS ---
Wound Consult Note Assessment and Plan (1) Intractable low back pain: (2) Cellulitis of scrotum: Reason for Consult: Open ulceration and excoriation to penis and scrotum Assessment and Plan: Patient with redness, moisture, swelling, and excoriation to scrotum and penis area. Yellow discharge noted from around penile folds. Patient states area has been swollen for a little while . Very appreciative of bedside nurse making a sling to hold scrotum and separate skin from touching inner thigh. There are 2 areas of ulceration noted to left side of penis and scrotum. No active drainage noted from those areas currently. Penile ulceration with eschar noted, measures 1.1cmx0.7gor8wh. Scrotal ulceration irregular shaped, superficial, measures 1.4cmx0.7cmx0.1cm. (3) Yeast infection: (4) Decubitus ulcer of sacral area: Reason for Consult: Open ulceration to buttocks/sacral area Assessment and Plan: Patient reports his back is very painful and was just adjusted in his bed by nursing and states I screamed. He is unsure he can turn at this time. There are current photos in the patient's chart. Appears to be more moisture associated skin damage with skin breakdown noted. Qualifiers: Pressure injury stage: unspecified pressure injury stage Qualified Code(s): L89.159 - Pressure ulcer of sacral region, unspecified stage (5) DAVID (acute kidney injury): (6) Unable to ambulate: (7) Chronic diastolic heart failure: (8) Type 2 diabetes mellitus: Qualifiers: Diabetes mellitus computer terminal operator insulin use: without penitentiary use Diabetes mellitus complication status: without complication Qualified Code(s): E11.9 - Type 2 diabetes mellitus without complications (9) Afib: Qualifiers: Atrial fibrillation type: paroxysmal Qualified Code(s): I48.0 - Paroxysmal atrial fibrillation (10) Hypertension: Qualifiers: Hypertension type: primary hypertension Qualified Code(s): I10 - Essential (primary) hypertension (11) HLD (hyperlipidemia): Qualifiers: Hyperlipidemia type: unspecified Qualified Code(s): E78.5 - Hyperlipidemia, unspecified (12) Depression with anxiety: (13) Hypothyroid: Qualifiers: Hypothyroidism type: unspecified Qualified Code(s): E03.9 - Hypothyroidism, unspecified Plan Patient's heels and elbows are intact. 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 Skin is dry and intact to BLE and BUE. Recommendations: Skin care to scrotum/penis every shift and as needed. Special care to skin folds. Pat dry. Apply/dust nystop powder to scrotum/penis area twice daily Continue scrotal sling/pillowcase to support scrotum and keep skin from inner thighs Triad wound paste to sacral/buttocks area thin layer daily and as needed elevate BLE moisturizer of choice to dry, intact skin float heels off bed reposition as tolerated
--- NOTE | 2023-09-15 10:01 | P.IMPN_ITS ---
Progress Note: A&P Assessment and Plan (1) Intractable low back pain: Assessment and Plan: No sig change noted on CT LS spine. PT/OT eval. Slighly improved with Oxycodone 10 q4. C/w lyrica Palliative care consulted. (2) Cellulitis of scrotum: Assessment and Plan: No abscess noted on US. On vancomycin/levaquin. C/w same. Improved clinically when compared to 09/14/23 (3) Yeast infection: Assessment and Plan: On Fluconazole and nystatin. Monitor closely. (4) Decubitus ulcer of sacral area: Assessment and Plan: Wound consulted. Qualifiers: Pressure injury stage: unspecified pressure injury stage Qualified Code(s): L89.159 - Pressure ulcer of sacral region, unspecified stage (5) DAVID (acute kidney injury): Assessment and Plan: Cr back to normal. Monitor. (6) Unable to ambulate: Assessment and Plan: PT/OT eval. C/w pain control. (7) Chronic diastolic heart failure: Assessment and Plan: C/w lopressor, resume lasix. Was dehydrated on admission (8) Type 2 diabetes mellitus: Assessment and Plan: D/c farxiga as highter risk of genitourinary yeast infections. On lantus while here. FSBS improved but still above goal. Monitor for now. Cw SSI. Qualifiers: Diabetes mellitus terminal gauger insulin use: without shelter use Diabetes mellitus complication status: without complication Qualified Code(s): E11.9 - Type 2 diabetes mellitus without complications (9) Afib: Assessment and Plan: c/w cardizem, lopressor. s/p watchman so not on ac for stroke px Qualifiers: Atrial fibrillation type: paroxysmal Qualified Code(s): I48.0 - Paroxysmal atrial fibrillation (10) Hypertension: Assessment and Plan: well contorlled, holding losartan for now. Qualifiers: Hypertension type: primary hypertension Qualified Code(s): I10 - Essential (primary) hypertension (11) HLD (hyperlipidemia): Assessment and Plan: c/w lipitor Qualifiers: Hyperlipidemia type: unspecified Qualified Code(s): E78.5 - Hyperlipidemia, unspecified (12) Depression with anxiety: Assessment and Plan: cw/ lexapro (13) Hypothyroid: Assessment and Plan: c/w levothyroxine Qualifiers: Hypothyroidism type: unspecified Qualified Code(s): E03.9 - Hypothyroidism, unspecified Internal Medicine - PN: Subj Subjective Interval history: Seen and examined. No overnight events. Patient reports his back pain is slightly better. Denies fever, chills. Exam Constitutional Vital Signs, click to edit/add: Last Vital Signs Temp 98.0 F 09/15/23 08:11 Pulse 59 L 09/15/23 08:13 Resp 18 09/15/23 08:13 BP 125/65 09/15/23 08:11 Pulse Ox 93 L 09/15/23 08:11 O2 Del Method Room Air 09/15/23 08:11 O2 Flow Rate 2 09/14/23 17:30 Documenting provider has reviewed patient's vital signs: yes General appearance: cooperative and frail appearing Respiratory Common normals: normal respiratory effort, no use of accessory muscles and clear to auscultation bilaterally Cardio Common normals: regular rate, regular rhythm, S1 normal heart sound and S2 normal heart sound Penis: edematous and erythematous Meatus: erythema Scrotum: testes descended bilaterally, cremasteric reflex present, erythematous and edematous Other: erythema and swelling of scrotum and surrounding skin is overall better but there purulent discharge noted at external uretheral meatus. Extremity Common normals: normal to inspection and full ROM Neuro Common normals: oriented x3, moves all extremities and no sensory deficits noted Psych Common normals: mental status grossly normal and thought process normal Internal Medicine - PN: Obj Da Labs Labs: Laboratory Results - last 24 hr 09/14/23 09/14/23 09/14/23 11:26 14:15 16:33 WBC RBC Hgb Hct MCV MCH MCHC RDW Plt Count MPV Neut % (Auto) Lymph % (Auto) [place] % (Auto) Eos % (Auto) Baso % (Auto) Neut # (Auto) Lymph # (Auto) [place] # (Auto) Eos # (Auto) Baso # (Auto) Abs Immat Gran (auto) Imm/Tot Granulo (auto) Sodium Potassium Chloride Carbon Dioxide Anion Gap BUN Creatinine Est GFR ( Amer) Est GFR (Non-Af Amer) BUN/Creatinine Ratio Glucose Calcium Total Bilirubin AST ALT Alkaline Phosphatase Total Protein Albumin Globulin Albumin/Globulin Ratio Urine Color Lt. yellow Urine Clarity Clear Urine pH 6.0 Ur Specific [place] 1.015 Urine Protein Negative Urine Glucose (UA) >=1000 A Urine Ketones Negative Urine Occult Blood Moderate A Urine Nitrite Positive A Urine Bilirubin Negative Urine Urobilinogen 0.2 Ur Leukocyte Esterase Small A Urine RBC 5-10 A Urine WBC 20-50 A Ur Squamous Epith Cells Rare Urine Crystals None seen Urine Bacteria Moderate A Urine Casts None seen Urine Mucus None seen Ur Culture Indicated? Already ordered POC Glucose 391 H 314 H 09/14/23 09/15/23 09/15/23 20:12 04:52 07:52 WBC 8.1 RBC 3.81 L Hgb 11.7 L Hct 35.6 L MCV 93.4 MCH 30.7 MCHC 32.9 RDW 13.0 Plt Count 95 L MPV 11.3 Neut % (Auto) 79.9 H Lymph % (Auto) 13.3 L [place] % (Auto) 5.5 Eos % (Auto) 0.2 L Baso % (Auto) 0.2 Neut # (Auto) 6.4 Lymph # (Auto) 1.1 L [place] # (Auto) 0.4 Eos # (Auto) 0.0 Baso # (Auto) 0.0 Abs Immat Gran (auto) 0.07 H Imm/Tot Granulo (auto) 0.9 H Sodium 138 Potassium 3.6 Chloride 103 Carbon Dioxide 27.5 Anion Gap 11.1 BUN 37.0 H Creatinine 1.21 Est GFR ( Amer) >60 Est GFR (Non-Af Amer) 57 L BUN/Creatinine Ratio 30.6 Glucose 223 H Calcium 8.6 Total Bilirubin 0.3 AST 23 ALT 38 Alkaline Phosphatase 67 Total Protein 5.7 L Albumin 2.5 L Globulin 3.2 Albumin/Globulin Ratio 0.8 Urine Color Urine Clarity Urine pH Ur Specific [place] Urine Protein Urine Glucose (UA) Urine Ketones Urine Occult Blood Urine Nitrite Urine Bilirubin Urine Urobilinogen Ur Leukocyte Esterase Urine RBC Urine WBC Ur Squamous Epith Cells Urine Crystals Urine Bacteria Urine Casts Urine Mucus Ur Culture Indicated? POC Glucose 240 H 294 H Urinary Catheter Management Urinary Catheter Management Urethral: Cath placed during this visit: no
--- NOTE | 2023-09-15 10:47 | CM.NOTE ---
Important Message From Medicare discussed with pt, pt verbalizes understanding and signs paper. Original given to pt and copy placed on pt's chart.
--- NOTE | 2023-09-15 10:52 | CM.NOTE ---
Rounds made with Dr. Elliott, no discharge today. Discussed with pt about Palliative services, pt would like do discuss with his son.
[2023-09-15 11:10] LABS: Glucometer 237 mg/dL (74-106)
--- NOTE | 2023-09-15 11:18 | CM.NOTE ---
Spoke with pt's son regarding Palliative Care, pt and son are interested in speaking with someone. Son states Dr. Elliott had set this up and I can't remember they company it was through. They had reached out and Ben at that time was skilled at [facility] and since then they have not heard back from anyone. MARCELLA Burden from [facility] to see which Palliative services pt was planning on using.
[2023-09-15] MEDS: LEVOFLOXACIN IN DEXTROSE 5 % 500 MG/100 ML PIGGYBACK 100 MG IV (11:22)
--- NOTE | 2023-09-15 11:41 | SWNOTE1 ---
Pt is from [place] skilled. He will want to return at discharge. MARCELLA sent over updates. Updates included face sheet, physician notes, case management referral report, diagnostic imaging, wound care note, and nursing notes. MARCELLA did ask Norm if pt can do palliative care and skilled, they voiced yes. Case management to call son and speak with him about palliative care as pt advised case mgmt to call son.
--- NOTE | 2023-09-15 12:08 | SWNOTE1 ---
Norm voiced that pt does not have a consult with [facility] or [facility] at this time.
--- NOTE | 2023-09-15 12:21 | SWNOTE1 ---
SW call [facility] and pt does not get palliative care through them. SW called [facility] and pt does get palliative care through them and he saw them at [place] last week. SW called and updated pt's son and updated nursing as well. Pt can be skilled and have palliative care as well.
[2023-09-15] MEDS: VANCOMYCIN HCL 1,000 MG in 0.9 % SODIUM CHLORIDE 250 ML 250 MG IV (12:37)
[2023-09-15] MEDS: NYSTATIN 15 GM POWDER 1 APPLIC TOPICAL ×2 (14:19→21:07)
[2023-09-15 16:04] LABS: Glucometer 244 mg/dL (74-106)
[2023-09-15] MEDS: ENOXAPARIN SODIUM 40 MG/0.4 ML SYRINGE SUBQ (20:13)
[2023-09-15 20:25] LABS: Glucometer 317 mg/dL (74-106)
[2023-09-15] MEDS: MAGNESIUM OXIDE 400 MG TABLET PO (21:08)
[2023-09-15] MEDS: ATORVASTATIN CALCIUM 20 MG TABLET PO (21:08)
[2023-09-15] MEDS: INSULIN DETEMIR 300 UNIT/3 ML INSULN.PEN 20 UNIT SUBQ (21:09)
[2023-09-16] VITALS (9 sets, daily range): BP systolic 126–132; BP diastolic 64–73; PULSE 56–85; RESP 18; TEMP 36.5–36.6; O2SAT 92–96
[2023-09-16] MEDS: OXYCODONE HCL 5 MG TABLET 10 MG PO ×2 (04:17→08:44)
[2023-09-16] MEDS: NYSTATIN 15 GM POWDER 1 APPLIC TOPICAL (04:18)
[2023-09-16 05:19] LABS: Basophils Percent Auto 0.2 % (0.2-2.0); Eosinophils Absolute Auto 0.2 10^3/uL (0.0-0.7); Eosinophils Percent Auto 2.5 % (0.9-7.0); Hematocrit 37.2 % (42.0-54.0); Hemoglobin 12.1 g/dL (14.0-18.0); Immature Granulocytes Abs Auto 0.07 10^3/uL (0.00-0.03); Immature Granulocytes Pct Auto 1.2 % (0.0-0.5); Lymphocytes Absolute Auto 1.2 10^3/uL (1.2-3.8); Lymphocytes Percent Auto 19.9 % (20.5-60.0); Mean Corpuscular HGB Conc 32.5 g/dL (29.9-35.2); Mean Corpuscular Hemoglobin 30.2 pg (25.9-34.0); Mean Corpuscular Volume 92.8 fL (80.0-94.0); Mean Platelet Volume 11.3 fL (9.5-13.5); Monocytes Absolute Auto 0.4 10^3/uL (0.3-0.8); Monocytes Percent Auto 7.2 % (1.7-12.0); Neutrophils Absolute Auto 4.1 10^3/uL (1.4-6.5); Platelet Count 117 10^3/uL (150-450); Red Blood Count 4.01 10^6/uL (4.70-6.10); Red Cell Distribution Width 13.1 % (11.0-15.0)
[2023-09-16] MEDS: PREGABALIN 100 MG CAPSULE PO (05:22)
[2023-09-16] MEDS: LEVOTHYROXINE SODIUM 25 MCG TABLET 50 MCG PO (05:22)
[2023-09-16 05:35] LABS: Alanine Aminotransferase 45 U/L (16-63); Albumin Globulin Ratio 0.7; Albumin Level 2.5 g/dL (3.4-5.0); Alkaline Phosphatase 67 U/L (46-116); Anion Gap 9.5; Aspartate Amino Transferase 18 U/L (15-37); BUN Creatinine Ratio 27.6; Bilirubin Total 0.3 mg/dL (0.2-1.0); Calcium 8.6 mg/dL (8.5-10.1); Carbon Dioxide 30.2 mmol/L (21.0-32.0); Chloride 104 mmol/L (98-107); Estimated GFR (African America >60 (>=60); Estimated GFR (Non-African Ame >60 (>=60); Globulin 3.4 g/dL; Glucose 171 mg/dL (74-106); Potassium 3.7 mmol/L (3.5-5.1); Sodium 140 mmol/L (136-145); Total Protein 5.9 g/dL (6.4-8.2)
[2023-09-16 07:33] LABS: Glucometer 248 mg/dL (74-106)
[2023-09-16] MEDS: FLUCONAZOLE 150 MG TABLET PO (08:43)
[2023-09-16] MEDS: DILTIAZEM HCL 180 MG CAP.ER.24H PO (08:43)
[2023-09-16] MEDS: PSYLLIUM 1 GM PO (08:44)
[2023-09-16] MEDS: POLYETHYLENE GLYCOL 3350 17 GM POWDER PACKET PO (08:44)
[2023-09-16] MEDS: CHOLECALCIFEROL (VITAMIN D3) 25 MCG/1,000 UNITS TABLET 50 MCG PO (08:44)
[2023-09-16] MEDS: DONEPEZIL HCL 10 MG TABLET PO (08:44)
[2023-09-16] MEDS: POTASSIUM CHLORIDE 10 MEQ ER TABLET 20 MEQ PO (08:44)
[2023-09-16] MEDS: ESCITALOPRAM 10 MG TABLET 20 MG PO (08:44)
[2023-09-16] MEDS: ALLOPURINOL 300 MG TABLET PO (08:44)
[2023-09-16] MEDS: ASPIRIN 81 MG TAB.CHEW PO (08:44)
[2023-09-16] MEDS: L. ACIDOPHILUS/L.BULGARICUS 1 PACKET GRAN.PACK PO (08:44)
[2023-09-16] MEDS: FAMOTIDINE 20 MG TABLET PO (08:44)
[2023-09-16] MEDS: DOCUSATE SODIUM 100 MG CAPSULE PO (08:45)
[2023-09-16] MEDS: BACLOFEN 10 MG TABLET PO (08:45)
[2023-09-16] MEDS: TAMSULOSIN HCL 0.4 MG CAPSULE 0.400000000000000022 MG PO (08:45)
[2023-09-16] MEDS: MULTIVITAMIN TABLET 1 TAB PO (08:45)
[2023-09-16] MEDS: METOPROLOL TARTRATE 25 MG TABLET PO (08:45)
[2023-09-16] MEDS: INSULIN ASPART 300 UNIT/3 ML PEN SUBQ ×2 (08:49→11:23)
[2023-09-16] MEDS: FERROUS SULFATE 325 MG TABLET PO (08:50)
--- NOTE | 2023-09-16 09:30 | CM.NOTE ---
Rounds made with laurie Lindsay for discharge back to [facility] today. SW to set up transport. Discussed second notice of IMM, pt denies questions or concerns.
--- NOTE | 2023-09-16 09:47 | PM.DS1 ---
DS: Providers Provider Date of admission: 09/14/23 11:25 Primary care physician: Shaikh Lexi MD Consults: 09/13/23 12:40 Occupational Therapy Eval and Treat Routine Reason for consultation: Ambulatory dysfunction/weakness Physical Therapy Eval and Treat Routine Reason for consultation: Ambulatory dysfunction/weakness 09/14/23 10:19 Consult to Wound Care Routine Consulting Provider: Bertram Humphreys Reason for consultation: SACRAL ULCER 09/14/23 10:23 Consult to Hospice Routine Reason for consultation: Chronic intractable pain. - Palliative care. Attending physician on discharge: Shaikh Lexi Discharging clinician: Shaikh Lexi Anticipated date of discharge: 09/16/23 DS: Diagnosis Discharge Diagnosis (1) Intractable low back pain: Assessment and plan: Improved from before. Change oxycodone to 7.5 mg q4 from 10 mg q6. No acute changes noted on CT Lumbar spine. PT/OT - ambulating now with Walker. (2) Cellulitis of scrotum: Assessment and plan: Improving. No abscess noted. High risk of poor outcome due to comorbidities and use of SGLT2 inhibitor. D/c on Levaquin. (3) Yeast infection: Assessment and plan: C/w nystatin powder, oral fluconazole. D/c SGLT2 inhibitor - do not use as outpatient. (4) Decubitus ulcer of sacral area: Assessment and plan: Conservative care, change position, pressure offload. Qualifiers: Pressure injury stage: unspecified pressure injury stage Qualified Code(s): L89.159 - Pressure ulcer of sacral region, unspecified stage (5) DAVID (acute kidney injury): Assessment and plan: Resolved. (6) Unable to ambulate: Assessment and plan: Due to back pain. Improved. Now ambulating with walker. (7) Chronic diastolic heart failure: Assessment and plan: Decrease lasix to 40 mg daily. Can use q12 as needed. C/w toprol. (8) Type 2 diabetes mellitus: Assessment and plan: Poorly controlled on current regimen. D/c farxiga. Cw/ glipizide 5 q12. Added glargine 25 units qhs. Qualifiers: Diabetes mellitus half-way insulin use: without manager intermediate use Diabetes mellitus complication status: without complication Qualified Code(s): E11.9 - Type 2 diabetes mellitus without complications (9) Afib: Assessment and plan: In NSR, HR controlled. No stroke px as he had watchman C/w cardizem Qualifiers: Atrial fibrillation type: paroxysmal Qualified Code(s): I48.0 - Paroxysmal atrial fibrillation (10) Hypertension: Assessment and plan: BP at goal. Decrease losartan to 50. C/w lopressor and cardizem Qualifiers: Hypertension type: primary hypertension Qualified Code(s): I10 - Essential (primary) hypertension (11) HLD (hyperlipidemia): Assessment and plan: c/w statin Qualifiers: Hyperlipidemia type: unspecified Qualified Code(s): E78.5 - Hyperlipidemia, unspecified (12) Depression with anxiety: Assessment and plan: C/w lexapro (13) Hypothyroid: Assessment and plan: C/w synthyroid Qualifiers: Hypothyroidism type: unspecified Qualified Code(s): E03.9 - Hypothyroidism, unspecified (14) E. coli UTI: Assessment and plan: Sensitive to Levaquin - c/w Levaquin. Associated with and due to catheter use. Catheter was changed in the hospital DS: Summary Hospital Course Hospital Course: 87 y o m with hx of chronic back pain was brought in originally for acute worsening of his pain to an extent where he could not even move. He has had similar episodes before and usually his back pain returns to its baseline after IV pain meds, PT/OT. He has severe spinal stenosis at multiple levels, has limited mobility at baseline and treatment of his pain has been a real challenge. Upon admission, I noted that he had sig erythema/swelling of his scrotum and penile region with foul smell discharge. He has urinary catheter in place - place a few weeks ago for incontinence. He told me he was on abx for a fungal infection and UTI. He recently completed a course of Augmentin for UTI according to the report I got from group home. Work up also revealed UTI sec to E coli for which he was treated with Levaquin. Patient was treated initially with IV vancomycin and Levaquin for for scrotal cellulitis and UTI. He also received oral fluconazole for cutaneous candidiasis in genitourinary region. His Farxiga was stopped and he was told that he should stop using it as outpatient. US of scrotum did not reveal any sig or acute abnormality. For his T2 DM, he received 20 units of lantus but his glucose were still above goal and hence, he will d/c to halfway on 25 units alongwith glipizide. Patient's losartan was decreased to 50 mg, lasix to 40 mg daily upon discharge. His metolazone was also discontinued. He had mild DAVID on admission that resolved with IVF. For his chronic LBP - we changed his Oxycodone to 7.5 mg q4 from 10 mg q6 as needed. And this regimen seemed to work better for him. Patient stable for discharge, will need close monitoring of his BP, Blood glucose and needs follow up with urology in 1-2 weeks. He will also benefit from following up with PCP in one week. Status at Discharge Functional status at discharge: uses cane/walker Overall status at discharge: patient is back to baseline Time Spent with Patient Time attestation: Total time spent providing and/or coordinating discharge services: Time spent: greater than 30 minutes Exam Constitutional Vital Signs, click to edit/add: Last Vital Signs Temp 97.7 F 09/16/23 07:40 Pulse 61 09/16/23 08:02 Resp 18 09/16/23 07:40 BP 126/73 09/16/23 07:40 Pulse Ox 92 L 09/16/23 07:40 O2 Del Method Room Air 09/16/23 07:40 O2 Flow Rate 2 09/14/23 17:30 Documenting provider has reviewed patient's vital signs: yes General appearance: cooperative and frail appearing Respiratory Common normals: normal respiratory effort, no use of accessory muscles and clear to auscultation bilaterally Cardio Common normals: regular rate, regular rhythm, S1 normal heart sound and S2 normal heart sound Penis: erythematous Meatus: erythema Scrotum: testes descended bilaterally, cremasteric reflex present and erythematous Other: erythema and swelling of scrotum and surrounding skin more or less resolved. Extremity Common normals: normal to inspection and full ROM Neuro Common normals: oriented x3, moves all extremities and no sensory deficits noted Psych Common normals: mental status grossly normal and thought process normal DS: Data Data Completed and Pending Labs on day of discharge: Labs from last 24 hours 09/16/23 09/16/23 09/15/23 07:32 04:05 20:18 WBC 6.0 RBC 4.01 L Hgb 12.1 L Hct 37.2 L MCV 92.8 MCH 30.2 MCHC 32.5 RDW 13.1 Plt Count 117 L MPV 11.3 Neut % (Auto) 69.0 Lymph % (Auto) 19.9 L [place] % (Auto) 7.2 Eos % (Auto) 2.5 Baso % (Auto) 0.2 Neut # (Auto) 4.1 Lymph # (Auto) 1.2 [place] # (Auto) 0.4 Eos # (Auto) 0.2 Baso # (Auto) 0.0 Abs Immat Gran (auto) 0.07 H Imm/Tot Granulo (auto) 1.2 H Sodium 140 Potassium 3.7 Chloride 104 Carbon Dioxide 30.2 Anion Gap 9.5 BUN 29.0 H Creatinine 1.05 Est GFR ( Amer) >60 Est GFR (Non-Af Amer) >60 BUN/Creatinine Ratio 27.6 Glucose 171 H Calcium 8.6 Total Bilirubin 0.3 AST 18 ALT 45 Alkaline Phosphatase 67 Total Protein 5.9 L Albumin 2.5 L Globulin 3.4 Albumin/Globulin Ratio 0.7 POC Glucose 248 H 317 H 09/15/23 09/15/23 16:03 11:09 WBC RBC Hgb Hct MCV MCH MCHC RDW Plt Count MPV Neut % (Auto) Lymph % (Auto) [place] % (Auto) Eos % (Auto) Baso % (Auto) Neut # (Auto) Lymph # (Auto) [place] # (Auto) Eos # (Auto) Baso # (Auto) Abs Immat Gran (auto) Imm/Tot Granulo (auto) Sodium Potassium Chloride Carbon Dioxide Anion Gap BUN Creatinine Est GFR ( Amer) Est GFR (Non-Af Amer) BUN/Creatinine Ratio Glucose Calcium Total Bilirubin AST ALT Alkaline Phosphatase Total Protein Albumin Globulin Albumin/Globulin Ratio POC Glucose 244 H 237 H Preliminary micro results at discharge 09/14/23 14:15 Urine Culture - Preliminary Urine,Clean Catch Escherichia coli Discharge Plan Discharge Disposition: Xfer SNF Discharge Medications: New levofloxacin 750 mg tablet 750 mg PO DAILY 7 Days Qty: 7 0RF nystatin 100,000 unit/gram powder 1 applic topical QID Qty: 30 0RF fluconazole 150 mg tablet 150 mg PO DAILY Qty: 7 0RF insulin glargine [Lantus Solostar U-100 Insulin] 100 unit/mL (3 mL) insulin pen 25 unit subcut QPM 30 Days Qty: 7.5 0RF Continued donepezil [Aricept] 10 mg tablet 10 mg PO DAILY aspirin 81 mg capsule 81 mg PO DAILY diltiazem HCl 180 mg capsule,extended release 24hr 180 mg PO DAILY ferrous sulfate 325 mg (65 mg iron) tablet 325 mg PO .every other day famotidine 20 mg tablet 20 mg PO DAILY tamsulosin [Flomax] 0.4 mg capsule 0.4 mg PO DAILY fluticasone propionate [Flonase Allergy Relief] 50 mcg/actuation spray,suspension 2 spray intranasal DAILY PRN (Reason: nasal congestion) Rx Instructions: administer into each nostril magnesium oxide,aspartate,citr 400 mg magnesium capsule 400 mg PO BEDTIME psyllium husk [Metamucil] 0.4 gram capsule 0.4 g PO DAILY metoprolol tartrate 25 mg tablet 25 mg PO BID atorvastatin 20 mg tablet 20 mg PO DAILY baclofen 10 mg tablet 10 mg PO BID pregabalin [Lyrica] 100 mg capsule 100 mg PO TID 5 Days Qty: 15 0RF acetaminophen [Tylenol Extra Strength] 500 mg tablet 1,000 mg PO Q8H PRN (Reason: pain) potassium chloride [Klor-Con M20] 20 mEq tablet,ER particles/crystals 20 meq PO DAILY docusate sodium [Colace] 100 mg capsule 100 mg PO BID naloxone [Narcan] 4 mg/actuation spray,non-aerosol 4 mg intranasal DAILY PRN (Reason: opioid overdose) Rx Instructions: spray 1 dose into ONE nostril; alternate nostrils w each dose until help arrives Culturelle 10 billion cell capsule 1 cap PO DAILY multivitamin Tablet 1 tab PO BID glipizide 5 mg tablet 5 mg PO BID allopurinol 300 mg tablet 300 mg PO DAILY levothyroxine 50 mcg tablet 50 mcg PO DAILY cholecalciferol (vitamin D3) [Vitamin D3] 25 mcg (1,000 unit) capsule 50 mcg PO DAILY albuterol sulfate [ProAir HFA] 90 mcg/actuation HFA aerosol inhaler 1 inh inhalation Q4H PRN (Reason: shortness of breath or wheezing) Hold Instructions: pt does not remember nitroglycerin [Nitrostat] 0.4 mg tablet, sublingual 0.4 mg sublingual Q5M PRN (Reason: chest pain) Rx Instructions: do not exceed 3 doses per episode Changed furosemide 20 mg tablet 40 mg PO DAILY Qty: 0 0RF losartan 100 mg tablet 50 mg PO DAILY Qty: 0 0RF oxycodone 10 mg tablet 7.5 mg PO Q4H PRN (Reason: pain) Qty: 0 0RF Discontinued metolazone 2.5 mg tablet 2.5 mg PO DAILY ondansetron 4 mg tablet,disintegrating 4 mg PO Q6H PRN (Reason: nausea and vomiting) dapagliflozin propanediol [Farxiga] 10 mg tablet 10 mg PO DAILY Patient Instructions: Nystatin (On the skin), Fluconazole (By mouth), Levofloxacin (By mouth), Insulin Glargine (By injection) (Lantus, Lantus SoloStchristopher, Tomarito, Cordell), Chronic Back Pain (DC) Forms: Portal Instructions Follow Up Appointments: Follow up with Urology in 1-2 weeks Follow up with PCP in one week
--- NOTE | 2023-09-16 10:10 | SWNOTE1 ---
MARCELLA sent message to Denise at [facility] to see if they have transport available, waiting to hear back. MARCELLA faxed over ak med rec, ak summary, physician note from yesterday, updated labs, and nursing notes to [facility].
--- NOTE | 2023-09-16 10:49 | SWNOTE1 ---
[facility] is able to transport, they will be here around 1:30-2:00. SW notified nursing. SW to call pt's son as well.
--- NOTE | 2023-09-16 10:51 | SWNOTE1 ---
MARCELLA notified pt's son, Corey, of transport time to [place]. Pt is returning to [facility] and will have [facility] palliative care as we.. MARCELLA sent dc summary to [facility] palliative care.
--- NOTE | 2023-09-16 11:16 | SWNOTE1 ---
SW took packet out to floor for nursing.
[2023-09-16 11:17] LABS: Glucometer 266 mg/dL (74-106)
[2023-09-16] MEDS: LEVOFLOXACIN IN DEXTROSE 5 % 500 MG/100 ML PIGGYBACK 100 MG IV (11:22)
--- NOTE | 2023-09-16 11:43 | PT.DAILY ---
Physical Therapy Daily Note PT Daily Note/Assess Start: 09/16/23 11:39 Freq: Status: Active Protocol: Document 09/16/23 11:39 SANJIV (Rec: 09/16/23 11:43 EDIKYLIE [id number]) Physical Therapy Daily Note/Assessment Time In/Time Out Time In 11:00 Time Out 11:15 Pain In Pain Level 10 Pain Out Pain Level 10 Subjective Subjective Pt sitting in BS chair upon arrival. reports high back pain but is agreeable to PT at this time. Therapeutic Exercise Time Therapeutic Exercise Minutes (minutes) 4 Therapeutic Exercise Units 0 Therapeutic Exercise Treatment Therapeutic Exercise Treatment Seated bilat LE strengthening ex complete in BS chair 15x ea to improve strength/mobility. Therapeutic Activity Time Therapeutic Activity Minutes (minutes) 8 Therapeutic Activity Units 1 Therapeutic Activity Treatment Chair Transfer Ability Minimum Assist Therapeutic Activity Comments Sit>stand from BS chair with Rere due to slight posterior lean. Pt amb 5' to BS commode with RW, CGA. Increased time needed for amb/transfers. Pt unsuccessful with having bowel movement. Planned dc for this afternoon so gown is changed for pt and brief is donned. Pt sit>stand from commode needed 2x attempts to stand fully erect. Pt Amb back to BS chair 5' with RW, CGA - increased time due to slow darnell and short step length. In BS chair for seated ex. remains in BS chair upon completion with chair alarm set and call light in reach. Total Physical Therapy Time Total Therapy Minutes 12 Total Physical Therapy Units 1 Summary Daily Note Summary Increased time needed for gait and transfers. High pain throughout session (subjective report).
== END 2023-09-16 13:31 | DRG 699 ==
LOC: ER 12:24 → MS 13:15
PROVIDERS: Admitting Provider Internal Medicine; Emergency Provider Emergency Medicine; PCP Internal Medicine; Visit Provider Internal Medicine
DX: T83.511A Infection and inflammatory reaction due to indwelling urethral catheter, initial encounter (principal); I50.32 Chronic diastolic (congestive) heart failure; N17.9 Acute kidney failure, unspecified; N49.2 Inflammatory disorders of scrotum; N39.0 Urinary tract infection, site not specified; M54.50 Low back pain, unspecified; G89.29 Other chronic pain; L89.159 Pressure ulcer of sacral region, unspecified stage; E11.65 Type 2 diabetes mellitus with hyperglycemia; I48.0 Paroxysmal atrial fibrillation; B37.2 Candidiasis of skin and nail; E78.5 Hyperlipidemia, unspecified; F32.A Depression, unspecified; F41.9 Anxiety disorder, unspecified; E03.9 Hypothyroidism, unspecified; R26.2 Difficulty in walking, not elsewhere classified; K21.9 Gastro-esophageal reflux disease without esophagitis; E11.22 Type 2 diabetes mellitus with diabetic chronic kidney disease; M51.16 Intervertebral disc disorders with radiculopathy, lumbar region; I12.9 Hypertensive chronic kidney disease with stage 1 through stage 4 chronic kidney disease, or unspecified chronic kidney disease; N18.30 Chronic kidney disease, stage 3 unspecified; G47.30 Sleep apnea, unspecified; K58.9 Irritable bowel syndrome, unspecified; H91.90 Unspecified hearing loss, unspecified ear; M19.90 Unspecified osteoarthritis, unspecified site; M10.9 Gout, unspecified; R33.9 Retention of urine, unspecified; B96.20 Unspecified Escherichia coli [E. coli] as the cause of diseases classified elsewhere; M48.00 Spinal stenosis, site unspecified; Z79.899 Other long term (current) drug therapy; Z79.890 Hormone replacement therapy; Z79.82 Long term (current) use of aspirin; Z98.890 Other specified postprocedural states; Z90.89 Acquired absence of other organs; Z85.46 Personal history of malignant neoplasm of prostate; Z87.442 Personal history of urinary calculi; Z85.51 Personal history of malignant neoplasm of bladder; Z95.818 Presence of other cardiac implants and grafts; Z79.891 Long term (current) use of opiate analgesic; Z86.718 Personal history of other venous thrombosis and embolism
CPT/HCPCS: 36415; 51702; 72131; 76870; 80053; 81001; 82948; 85025; 87086; 87150; 87186; 94640; 94761; 96365; 96366; 96367; 96372; 97161; 97165; 97530; 97535; 99285; G0378; J1170; J2930; J3370

== ENCOUNTER 2024-05-22 15:43 | Inpatient (IN) | payer MEDICARE, SELFPAY ==
[2024-05-22] VITALS (26 sets, daily range): BP systolic 94–171; BP diastolic 56–93; PULSE 106–120; TEMP 36.8–38.2; O2SAT 92–98; BMI 24.4; BMI 26.0
--- OUTSIDE RECORDS SUMMARY | 2024-05-22 15:51 | XMS_ITS | CCD ---
Author Organization [facility] Care Team Providers Care Hardwood Faller Name Role Phone PHYSICIAN, DEFAULT Unavailable Unavailable PHYSICIAN, DEFAULT Unavailable Unavailable KIERA LOMBARDO Primary Care Physician Franyk Veronica Primary Care Provider SHAIKH ELLIOTT Primary Care Physician [phone] AURELIO DURAES, TRISTIN Referring Unava ilable VERONICA, [...] Unava ilable AURELIO DURAES, TRISTIN Attending Unava ilable FRANKY VERONICA Primary Care Unavailable SHAIKH Milena ELLIOTT Primary Care Unavailable URSULA ., DR JASSO Admitting Unavailable URSULA ., DR JASSO Attending Unavailable URSULA ., DR JASSO Consulting Unavailable MARITZA, DR BRISA Oh Consulting Unavailable SHAIKH Milena ELLIOTT Primary Care Unavailable CATRACHITO ., DR PAULINE Ring Admitting Unavailable CATRACHITO ., DR PAULINE Ring Attending Unavailable SHAIKH Milena ELLIOTT Primary Care Unavailable CATRACHITO ., DR PAULINE Ring Consulting Unavailable CATRACHITO ., DR PAULINE Ring Admitting Unavailable WINSTON [...] Consulting Unavailable NIMOUKANICOLE, DR WALLS Admitting Unavailable MOUKAROBERTEL, DR WALLS Attending Unavailable LAKSHMIPATHY ., NARENDRANATH [...] Admitting Unavailable MOREJON ., CALVIN Consulting Unavailable [facility], [facility] Primary Care Unavailable WINSTON ., DR PAULINE Ring Attending Unavailable WINSTON ., DR PAULINE Ring Admitting [facility] Primary Care Unavailable WEST, DR LEEANN Valles Consulting Unavailable MOUKARBEL, DR WALLS Admitting Unavailable MOUKARBEL, DR WALLS Attending Unavailable MOUKARBEL, DR WALLS Consulting Unavailable [facility], [facility] Primary Care Unavailable AKKINA, REMY Admitting Unavailable AKKINA, REMY Attending Unavailable WINSTON ., DR PAULINE Ring Consulting Unavailable AKKINA, REMY Consulting Unavailable REQUEST, DR NONE LISTED Primary Care Unavaila ble NILL ., DR HYMAN Admitting Unavailable NILL ., DR HYMAN Attending Unavailable NILL ., DR HYMAN Consulting Unavailable [facility], [facility] Consulting Unavailable NEFCYBRITTANIE Consulting Unavailable [facility], [facility] Primary Care Unavailable VERGARA ., DR JASSO Admitting Unavailable VERGARA ., DR JASSO Attending Unavailable VERGARA ., DR JASSO Consulting Unavailable [facility] Primary Care Unavailable WINSTON ., DR PAULINE Ring Consulting Unavailable WINSTON ., DR PAULINE Ring Admitting Unavailable WINSTON ., DR PAULINE Ring Attending Unavailable LAKSHMIPATHY ., ROGELIO Attending Sweta vailable LAKSHMIPATHY ., ROGELIO Admitting Sweta vailable [facility], [facility] Primary Care Unavailable [facility], [facility] Primary Care Unavailable NILL ., DR HYMAN Attending Unavailable NILL ., DR HYMAN Consulting Unavailable NILL ., DR HYMAN Admitting Unavailable AGUBOSIM, ELIZ Consulting Unavailable LISSY AREVALOLEY Consulting Unavailable [facility], [facility] Primary Care Unavailable NILL ., DR HYMAN Attending Unavailable NILL ., DR HYMAN Admitting Unavailable [facility], [facility] Primary Care Unavailable VERGARA ., DR JASSO Admitting Unavailable VERGARA ., DR JASSO Attending Unavailable VERGARA ., DR JASSO Consulting Unavailable WINSTON ., DR PAULINE Ring Attending Unavailable WINSTON ., DR PAULINE Ring Consulting Unavailable [facility], [facility] Primary Care Unavailable WINSTON ., DR PAULINE Ring Admitting Unavailable MOREJON ., CALVIN Consulting Unavailable SHAIKH Milena ELLIOTT Primary Care Unavailable CASTELLON ., DR COLTON Amador Consulting Unavailable CASTELLON ., DR COLTON Amador Procedure Practitioner Toñito CASTELLON ., DR COLTON Amador Admitting Unavailable CASTELLON ., DR COLTON Amador Attending Unavailable MOUKANICOLE, DR WALLS Consulting Unavailable NILL ., DR HYMAN Consulting Unavailable KATE BAKER Consulting Unavailable CARMINA LOVE Consulting Unavailable MICHAEL SPIVEY Consulting Unavailable Giedraitis , Andju Gilmore Attending Unavailable Giedraitis , Andrius Gilmore Attending Unavailable Giedraitis , Andrius Haiyttonya Attending Unavailable Giedraitis , Andrius Haiyttonya Attending Unavailable Giedraitis , Andrius Gilmore Attending Unavailable Giedraitis , Mallorie Gilmore Attending Unavailable FAWWAD, Attending Unavailable FAWPIETRO, Attending Unavailable NITESH GANT Attending Unavailable FAWPIETRO, Referring Unavailable CARMINA CROOK Attending Unavailable FAWPIETRO, Referring Unavailable FAWPIETRO, Attending Unavailable CARMINA CROOK Attending Unavailable FAWPIETRO, Referring Unavailable FaShaikh pearl MD Primary Care Provider ANDREA COLORADO Attending Unavailable NERISSA ORDONEZ Attending Unavailable NERISSA ORDONEZ Referring Unavailable NERISSA ORDONEZ Attending Unavailable NERISSA ORDONEZ Attending Unavailable Mekhi VERGARA Admitting Unavailable Mekhi VERGARA Referring Unavailable Mekhi VERGARA Attending Unavailable Mekhi VERGARA Admitting Unavailable VERGARAMekhi Attending Unavailable Armani Odom Attending Unavailable Mekhi VERGARA Attending Unavailable LEXI, Primary Care Unavailable Allergies Allergy Classification Reported Allergen(s) Allergy Type Date of Onset Reaction(s) Facility (10 sources) Acetaminophen / HYDROcodone; Translations: [acetaminophen-hydr ocodone] Drug Allergy Nausea and vomiting [facility] (16 sources) Acetaminophen / oxyCODONE; Translations: [acetaminophen-oxyc odone] Drug Allergy 06-03-20 16 Vomiting [facility] (19 sources) tiZANidine; Translations: [tizanidine] Drug Allergy 05-11-20 19 Mental Status Change, Vomiting, GI intolerance, Hallucinations [facility] (12 sources) traMADol; Translations: [tramadol] Drug Allergy 02-28-20 22 GI intolerance [facility] (3 sources) Acetaminophen / oxyCODONE; Translations: [OXYCODONE-ACETAMIN OPHEN] Drug Allergy 06-03-20 16 GI intolerance, Unknown [facility] (2 sources) Acetaminophen / HYDROcodone Drug Allergy 06-03-20 16 [facility] (2 sources) Acetaminophen / oxyCODONE Drug Allergy 06-03-20 16 [facility] (2 sources) cyclobenzaprine Drug Allergy 07-18-19 17 [facility] (1 source) tiZANidine Drug Allergy [facility] (2 sources) traMADol Drug Allergy 06-12-20 16 [facility] (1 source) Acetaminophen / HYDROcodone Drug Allergy 06-18-20 23 GI intolerance [facility] Medications Current Medications Medication Drug Class(es) Dates Sig (Normalized) Sig (Original) [facility] oral capsule (4 sources) Start: 06-01-2019 take 1 capsule by mouth twice daily [facility] oral capsule cap(s), Oral, BID, Refill(s) 0, Prophylaxis Start Date: 06/01/19 Status: Ordered [id number] 200 actuat albuterol 0.09 mg/actuat metered dose [...] the morning cholecalciferol (Vitamin D-3) 250 MCG (48980 UT) capsule Take 1,000 Units by mouth [...] oral tablet (1 source) Benzodiazepine Start: 07-28-19 24 End: 08-27-19 24 take 1 tablet by mouth at bedtime [...] take 1 tablet by mouth at [place] in ferrous sulfate 325 (65 Fe) MG tablet [...] rhamn osus GG (9 sources) Start: 04-22-2022 [facility] Refill(s) 0 Start Date: 04/22/22 Status: Ordered Start: 06-01-2019 take 1 tablet by ravi once daily [facility] 1 tab, [...] 07/10/21 Status: Ordered take 1 tablet by [facility] every eight hours as needed ondansetron orally [...] Daily, # 30 tab(s), Refills(s) 0, Pharmacy: [facility], 177.8, cm, 07/10/21 15:02:00 EST, Height/Length Dosing, 88.6, kg, 07/10/21 15:02:00 EST, Weight Dosing Start Date: 07/10/21 Status: Ordered Start: 07-10-2021 take 1 tablet by [facility] once daily pantoprazole 40 mg Oral EC Tab 40 mg = 1 tab(s), Oral, Daily, # 30 tab(s), Refills(s) 0, Pharmacy: [facility], 177.8, cm, 07/10/21 15:02:00 EST, Height/Length Dosing, 88.6, kg, 07/10/21 15:02:00 EST, Weight Dosing Start Date: 07/10/21 Status: Ordered pregabalin 75 mg oral capsule (12 sources) Start: 04-22-2022 take 1 capsule by mouth twice daily pregabalin 75 mg Cap 75 mg = 1 cap(s), Oral, BID, Refills(s) 0 Start Date: 04/22/22 Status: Ordered take 1 capsule by [facility] three times daily pregabalin (LYRICA) 50 [...] 04/22/22 Status: Ordered take 1 capsule by [facility] every twenty-four hours in the morning [...] every six hours as needed for pain [place] 325 mg-5 mg oral tablet 1 tab(s), [...] # 2 tab(s), Refills(s) 0, Pharmacy: [id number], 177, cm, 06/20/23 10:48:00 EST, Height/Length Dosing, 81.9, kg, 06/20/23 10:48:00 EST, Weight Dosing Start Date: 06/20/23 Status: Ordered Start: 07-26-2022 take 1 tablet by ravi th once daily Cipro 250 mg Tab 250 mg = 1 tab(s), Oral, Daily, Take 1 tablet the day before the procedure and 1 tablet after the procedure, # 2 tab(s), Refills(s) 0, Pharmacy: [facility] #[id number], 177.8, cm, 04/22/22 15:44:00 EDT, Height/Length Dosing, 85.4, kg, 04/22/22 15:44:00 EDT,... Start Date: 07/26/22 Status: Ordered Start: 07-10-2021 take 1 tablet by ravi once daily Cipro 500 mg Tab 500 mg = 1 tab(s), Oral, Daily, Take 1 tablet 07/16/21 and 1 tablet after the procedure 07/17/21, # 2 tab(s), Refills(s) 0, Pharmacy: [facility] [facility], 177.8, cm, 07/24/20 9:23:00 EST, [...] Coronary arteriosclerosis; Translations: [Atherosclerotic heart disease of [place] [employer] [place] coronary artery without angina pectoris] Onset: 08-13-2017 [...] 07-03-2023 07-03-2023 Other aftercare (1 source) Other terminal carman (current) drug therapy; Translations: [OTH SHELTER CURRENT DRUG THERAPY] Onset: 02-12-2022 Episodic Other aftercare (1 source) terminal carman (current) use of aspirin; Translations: [WAREHOUSE UNLOADER CURRENT USE OF ASPIRIN] Onset: 02-12-2022 Episodic Other aftercare (1 source) terminal carman (current) use of anticoagulants; Translations: [SHELTER CURRNT USE ANTICOAGULANTS] Onset: 11-27-2021 Episodic Other aftercare (2 sources) terminal carman (current) use of antibiotics; Translations: [terminal carman (current) use of antibiotics] Onset: 10-18-2022 Episodic [...] Test Name Value Interpretation Reference Range Facility Main OR Intraoperative Recor don 01-06-2024 Main OR Intraoperative Record Main OR Intraoperative Record IntraOp Document Type FTURO Summary Primary Physician: Mekhi VERGARA MD Finalized Date/Time: 01/06/24 17:04:08 Pt. Name: BEN GUADALUPE/Sex: 1935 Male Med Rec #: [id number] Physician: Mekhi VERGARA MD Financial #: [id number] Pt. Type: O Room/Bed: / Admit/Disch: 08/19/23 14:43:41 - 08/19/23 23:59:59 Institution: Case Times FTURO Entry 1 Patient Times In Room 08/19/23 16:00:00 Out Room 08/19/23 16:30:00 Procedure Times Start 08/19/23 16:11:00 Stop 08/19/23 16:28:00 Anesthesia Times Last Modified By: Italo MCLAUGHLIN, SHAHLAOR, Pia 01/06/24 17:01:06 Case Attendance FTURO Entry 1 Entry 2 Entry 3 Case Attendee Mekhi VERGARA MD RN, CNOR, Alejandra HANSON, Aicha Palacio Role Performed Surgeon - Primary Blockers Skiver - Primary Scrub - Primary Time In 08/19/23 16:00:00 08/19/23 16:00:00 08/19/23 16:00:00 Time Out 08/19/23 16:30:00 08/19/23 16:30:00 08/19/23 16:30:00 Procedure CYSTOSCOPY LOCAL(.) CYSTOSCOPY LOCAL(.) CYSTOSCOPY LOCAL(.) Comments Last Modified By: Italo RN, CNOR, Italo RN, CNOR, Italo RN, SHAHLAOR, Pia 01/06/24 Pia 01/06/24 Pia 01/06/24 17:01:07 17:01:07 17:01:07 Surgical Procedures FTURO Entry 1 Procedure Description Procedure CYSTOSCOPY LOCAL Modifiers . Surgeon Description CYSTO Primary Procedure Yes Primary Surgeon Mekhi VERGARA MD Start 08/19/23 16:11:00 Stop 08/19/23 16:28:00 Anesthesia Type Local Surgical Service Urology Wound Class 2 - Clean-Contaminated Last Modified By: MARCELINA Puckett RN, Ruthann 01/06/24 17:01:09 General Case Data FTURO Pre-Care Text: Classifies surgical wound, implements aseptic technique, initiates traffic control Entry 1 Case Information OR URO 1 FT Case Level None Wound Class 2 - Clean-Contaminated Specialty Urology Preop Diagnosis HX OF BLADDER AND Postop Same As Preop Yes PROSTATE CANCER Postop Diagnosis HX OF BLADDER AND Outcomes Met? Yes PROSTATE CANCER Last Modified By: MARCELINA Puckett RN, Ruthann 08/19/23 15:59:17 Post-Care Text: The patient is free from [...] Marking Verified Surgical Site Yes Laterality Verified n/a Verified Procedure Verified Yes Correct Patient Yes Position Verified Availability Equipment, Implant, Time Out URSULA WORKMAN, Mekhi Oh, Verified (If Medication Participants Italo MCLAUGHLIN, SHAHLAOR, Applicable) Alejandra Palacio CST, Aicha Mcallister Time Out Complete 08/19/23 16:11:00 Allergies Reviewed? Yes Allergies Reviewed Self/Patient With Body Position Supine Prep Area penis Prep Agents Betadine Solution Skin. Condition Unable to Visualize Additional None Specimens Collected Vitals - EU Blood Pressure 119/75 Pulse 64 bpm Respirations SPO2 EBL 0 IandO - EU Total Intake 0 mL Total Output 0 mL Outcomes Met? Yes Last Modified By: MARCELINA Puckett RN, Ruthann 01/06/24 17:02:32 Post-Care Text: The patient is free from signs and symptoms of injury caused by extraneous objects General Comments: charet opened to add times radha mclaughlin Sign Out FTURO Entry 1 Before Patient Leaves OR Nurse verbally Yes Nurse verbally n/a confirms with the confirms with the team the name of team that the procedure(s) instrument, sponge, recorded and needle counts are correct (or N/A) Nurse verbally Yes Nurse verbally n/a confirms with the confirms with the team how the team whether there specimen is labeled are any equipment (including patient problems to be name), if applicable addressed Sign Out Complete 08/19/23 16:29:00 Last Modified By: MARCELINA Puckett RN, Ruthann 01/06/24 17:02:54 Case Comments Finalized By: MARCELINA Puckett RN, Ruthann Document Signatures Signed By: MARCELINA Puckett RN, Ruthann 01/06/24 17:02 MARCELINA Puckett RN, Ruthann 01/06/24 17:04 Normal [facility] Main OR Preoperative Recordo n 01-06-2024 Main OR Preoperative Record Main OR Preoperative Record Holding Area Document Type FTURO Summary Primary Physician: Mekhi VERGARA MD Finalized Date/Time: 01/06/24 17:05:09 Pt. Name: EBN GUADALUPE./Sex: 1935 Male Med Rec #: [id number] Physician: Mekhi VERGARA MD Financial #: [id number] Pt. Type: O Room/Bed: / Admit/Disch: 08/19/23 14:43:41 - 08/19/23 23:59:59 Institution: Case Times Holding FTURO Pre-Care Text: Verifies consent for planned procedure, identifies individual values and wishes concerning care, includes family members in perioperative teaching Secures patient's records' belongings, and valuables, maintains patient's dignity and privacy, and maintains patient confidentiality Entry 1 In Holding 08/19/23 15:41:00 Outcomes Met? Yes Last Modified By: Liza Adan LPN 08/19/23 15:41:34 Post-Care Text: The patient participates in decisions affecting his or her perioperative plan of care The patient's right to privacy is maintained Surgery Checklist FTURO Entry 1 Patient Birthday, ID Band Procedure History and Physical, Identification: Check, Patient Verification: Surgical Consent Participation NPO after Midnight: n/a Personal Items clothes Comment: Limitations: none Complaints of Pain: n/a Skin Integrity Unable to Visualize Vitals - EU Blood Pressure Pulse Respirations SPO2 Additional None RN Reviewed Yes Specimens Collected Last Modified By: MARCELINA Puckett RN, Ruthann 01/06/24 17:05:07 Finalized By: MARCELINA Puckett RN, Ruthann Document Signatures Signed By: MARCELINA Puckett RN, Ruthann 01/06/24 17:05 Normal [facility] UroVysion Fish and Urine Cyt o ([facility]4 Labs)on 10-28-2023 UVFISH & UC Diagnosis Info Invalid Interpretation Code [facility] Comment on above: Result Comment: A:Ur ine,Urine:Cystoscopy Diagnosis Summary - Atypical urothelial cells present, favor reactive changes. Adequate cellularity for evaluation. Diagnosis Summary - The UroVysion FISH study detected normal copy numbers for chromosomes 3, 7, 17, and 9p21. 100 cells were analyzed in this evaluation. No evidence of aneuploidy for chromosomes 3, 7, or 17 or deletion of the 9p21 locus was found in cells present in this specimen. This test does not rule out the possibility of a low grade non-invasive papillary urothelial carcinoma. These findings should be correlated with cytology and cystoscopy results.* CPT 54222, 10268. Microscopic Notes - Microscopic Notes - Abnormal cells 9p21 deletions: Abnormal cells aneploid events: Total cells analyzed: 100 Hematuria: Gross Description Site ID:A color Yellow fixative Alcohol Received 90 mls of clear yellow fluid with the patient's name and, Urine on the vial. Electronically signed by : on: 08/25/2023 23:10:47 Performed By: #### 1 [id number] ####[facility] [address] [place] [address] Lab Reportson 10-10-2023 Lab Reports [id number]#1.00TIFF Normal [facility] Reference Lab Reporton 10-09 Reference Lab Report [id number]#1.00TIFF Normal [facility] Reminderson 08-29-2023 Reminders - From: Alaina Dickson To: EU - Recalls Vergara; Sent: 08/29/2023 09:01:00 EST Show up: 07/07/2024 09:00:00 EST Subject: cysto/fish/cytol Due Date/Time: 07/26/2024 09:00:00 EST Reminder/Recall Patient is due in Aug 2024 for 1 year cysto/fish/cytol (bt ck)/PSA Normal [facility] Telemedicineon 08-28-2023 Telemedicine [id number] Ben Guadalupe 1935 M Date Provider Department Center 08/28/2023 NERISSA TESFAYE CARD [facility] Family History Problem Relation Age of Onset Heart failure Mother Prostate cancer Father Coronary artery disease Brother Prostate cancer Brother Family Status - Relation Status Age at Mother Father Brother Level of Service:[address] [place] PHYS/QHP TELEPHONE EVALUATION 11-20 MIN Reason for Visit and Comments: Atrial Fibrillation [80] Hypertension [334521] Congestive Heart Failure [127] Normal [facility] Consent for Procedure/Surger yon 08-25-2023 Consent for Procedure/Surgery [id number]#1.00TIFF [facility] IntraOperative Documentson 0 08-25-2023 IntraOperative Documents [id number]#1.00TIFF [facility] CHEMISTRYOrdered By: SYSTEM SYSTEM on 08-19-2023 PSA Total 3.7 ng/mL High 0.1 - 3.5 ng/mL [facility] Comment on above: Interpretive Data: T he concentration of PSA determined by different manufacturers can vary due to differences in assay methods and reagent specificity. Values obtained from different assay methods cannot be used interchangeably. The methodology used for this result was chemiluminescence using [employer]'s Access Hybritech PSA reagent. Consent for Treatmenton 08-07 Consent for Treatment [id number]#1.00TIFF [facility] Consent for Treatment [id number]#1.00TIFF [facility] Operative Reporton Operative Report Patient: BEN GUADALUPE [...] with antibiotic coverage, Follow up arranged. Normal [facility] Comment on above: Result Comment: Elec tronically Signed By: URSULA WORKMAN, Mekhi Oh\.br\Date and Time Signed: 08/19/23 16:18 EST PSA Totalon 08-19-2023 PSA Total 3.7 ng/mL High 0.1-3.5 [facility] Comment on above: Result Comment: The concentration of PSA determined by different manufacturers can vary due to differences in assay methods and reagent specificity. Values obtained from different assay methods cannot be used interchangeably. The methodology used for this result was chemiluminescence using [employer]'s Access Hybritech PSA reagent. Performed By: #### 1 [id number] ####[facility] [address] [facility] [place] [address] UroVysion Fish and Urine Cyt o ( Labs)on 08-19-2023 [facility] Method of Extraction Cystoscopy Normal [facility] Comment on above: Performed By: #### 1 [id number] ####[facility] [address] [place] [address] [facility] Number of Jars 1 Invalid Interpretation Code [facility] Comment on above: Performed By: #### 1 [id number] ####[facility] [address] [place] [address] [facility] Specimen Urine Normal [facility] Comment on above: Performed By: #### 1 [id number] ####[facility] [address] [place] [address] [facility] Type of Service Technical Only Normal [facility] Comment on above: Performed By: #### 1 [id number] ####[facility] [address] [place] [address] Ambulatory Visit Summaryon 1 08-21-2022 Ambulatory Visit Summary BEN GUADALUPE :1935 Visit Date:06/20/2023 Ambulatory Visit Instructions Your Diagnosis Rising PSA 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 Urinary retention Prostatitis BPH with urinary obstruction Urge incontinence History of bladder cancer Tests Performed Urnls Dip Stick Auto w/o Microscopy POC 63333 Your Care Team Attending Physician - URSULA WORKMAN, Mekhi Oh Primary Care Physician - LEXI WORKMAN, DE LA O This Is Your Medications List ciprofloxacin (Cipro 500 mg Tab) doxycycline (doxycycline hyclate 100 mg Tab) Contact prescribing physician if questions or concerns acetaminophen-hydrocodone ([place] 325 mg-5 mg oral tablet) albuterol (ProAir [...] (glipiZIDE 5 mg Tab) lactobacillus rhamnosus GG ([facility]) levothyroxine (levothyroxine 50 mcg (0.05 mg) [...] with URSULA WORKMAN, GO Scott When: Where: [address] [place] [address]- Medications What How Much When Instructions New ciprofloxacin (Cipro 500 mg Tab) 1 Tablets By Mouth As Directed Pt to take 1 tab the day before procedure and the 2nd tab the day of procedure once completed. Pickup at [facility][id number] New doxycycline (doxycycline hyclate 100 mg Tab) 1 Tablets By Mouth 2 times a day Duration: 2 Weeks Pickup at [facility] #[id number] Unchanged acetaminophen-hydrocodone ([place] 325 mg-5 mg oral tablet) 1 Tablets [...] questions or (more content not included)... Normal [facility] Patient Educationon 06-20-20 23 Patient [...] these instructions at home: Medicines ? Take moqz-guw-vcijbkp and prescription medicines only as told by [...] Where to find more information ? [employer]: (more content not included)... Normal [facility] Urology Office/Clinic Noteon 06-20-2023 Urology Office/Clinic Note [...] recent PSA. Pt has been to the [facility] ER 3x since 06/10/23 w/ complaints [...] of urine, unspecified) Pt has been to [facility] ER 3x since 06/10/23 w/ complaints [...] Contact Information URSULA WORKMAN, Mekhi Oh, [address] [place] [address]- Additional Instructions: Schedule cysto for b.t. check Patient Education Prostatitis I, Silke Dupont, personally scribed for Dr. Vergara on 06/20/2023 11:32:00. . Documentation recorded by the Silke cohen, accurately reflects the services(s) I performed and decisions made by me. Authenticated by Dr. Vergara on 06/20/2023 11:33:18. Problem List/Past Medical History Ongoing Anemia due to chronic kidney disease Anticoagulated Asymptomatic microscopic hematuria Atrial fibrillation BMI 27 (more content not included)... Normal [facility] Comment on above: Result Comment: Elec tronically Signed By: Mekhi VERGARA MD\.br\Date and Time Signed: 06/20/23 11:33 EST\.br\Electronically Co-Signed By: Silke Dupont\.br\Date and Time Co-Signed: 06/20/23 11:32 EST Office Visiton 03-07-2023 Follow-up visit [id number] Ben Guadalupe 1935 M Date Provider Department Center 03/07/2023 ANDREA GOLDSTEIN CONCHIS Talbott Dora Family History Problem Relation Age of Onset Heart failure Mother Prostate cancer Father Coronary artery disease Brother Prostate cancer Brother Family Status - Relation Status Age at Mother Father Brother Level of Service:[address] [place] OFFICE/OUTPATIENT ESTABLISHED MOD MDM 30-39 MIN [facility] POINT OF CARE GLUCOSEon 10-06 Glucose [Mass/Vol] 230 mg/dL Critically high 74-106 T [facility] Comment on above: Performed By: #### P SAD #### [facility] [address] [address] [address] Mason Astudillo Office Visiton 10-18-2022 Follow-up visit [id number] Ben Guadalupe 1935 M Date Provider Department Center 10/18/2022 NERISSA TESFAYE CONCHIS Agudeloevneil John Family History Problem Relation Age of Onset Heart failure Mother Prostate cancer Father Coronary artery disease Brother Prostate cancer Brother Family Status - Relation Status Age at Mother Father Brother Level of Service:[address]072 [place] OFFICE/OUTPATIENT ESTABLISHED LOW MDM 20-29 MIN Reason for Visit and Comments: Coronary Artery Disease [187] Atrial Fibrillation [80] [facility] ANESon 10-11-2022 ANES -------- [...] 10/11/22 09 Procedure: TRANSESOPHAGEAL ECHO (KINZA) Location: [facility] Heart [facility] Vascular Center Vascular [...] fellow and attending. Additional Equipment Requests [facility] HPon 10-11-2022 HP -------- [...] there are no changes to the H&P. [facility] 09-11-2022 [facility] Cardiology - [facility] Subjective Ben Guadalupe is a [...] [facility]. He [...] lower le (more content not included)... [facility] POINT OF CARE GLUCOSEon 01-0 Glucose [Mass/Vol] 203 mg/dL Critically high 74-106 T [facility] Comment on above: Performed By: #### U A #### [facility] [address] [place] [address] Dr. Mason QUIROZ POSTPROC EVALon 022 ANES POSTPROC EVAL HNO ID: [id number] Author: Kandice Guadalupe MD Service: ? Author Type: Physician Type: Anesthesia Postprocedure Evaluation Filed: 05/17/2022 2:13 PM Note Text: POST ANESTHESIA EVALUATION NOTE : 1935 Procedure Summary Date: 05/17/22 Room / Location: [address] [facility] Anesthesia Start: 954 Anesthesia Stop: 1201 Procedures: [...] with this procedure. Documented by Minesh Levy APRN.DIAMOND WHEEL EDGER 05/17/2022 12:02 PM EST SIGNATURE: Kandice Guadalupe MD PATIENT NAME: Ben Guadalupe DATE: May 17, 2022 TIME: 2:13 PM CSN: [id number] Normal [facility] ANES PRE-OPon 05-17-2022 ANES PRE-OP HNO ID: [id number] Author: Kandice Guadalupe MD Service: ? Author [...] Other hemorrhoids (+) PAF (paroxysmal atrial fibrillation) ([facility]) ENDO (+) Hypothyroidism unspecified GI (+) Gastroesophageal reflux disease with esophagitis -RENAL (+) Calculus of kidney (+) Chronic kidney disease, stage 4 (severe) ([facility]) NEURO-PSYCH (+) History of DVT (deep vein [...] and consent discussed: yes. Patient / Responsible Libertarian agrees to proceed: yes Patient / Surrogate [...] (97.5 ?F) 05/17/22 0745 SpO2 99 % 05/17/22 0745 Facility-Administered Medications as of 05/17/2022 Medication Dose [...] mcg/actuation na (more content not included)... Normal [facility] BRIEF OP NOTon 05-17-2022 BRIEF OP NOT HNO ID: [id number] Author: Tristin Wilcox MD, PhD Service: Colorectal Author Type: Physician Type: Brief Op Note Filed: 05/17/2022 11:34 AM Note Text: BRIEF OPERATIVE NOTE - COLORECTAL SURGERY Log ID: [id number] Surgery/Procedure Date: 05/17/2022 Incision/Procedure Start Time: 10:17 AM Incision Close/Procedure End Time: 11:27 AM Surgeon(s) and Cloud Administrator(s): Surgeon(s) and Role: * Tristin Wilcox MD, [...] May 17, 2022 TIME: 11:30 AM Normal [facility] Gas and Carbon monoxide pane l (BldV)on 05-17-2022 BASE DEFICIT, VENOUS -2 mmol/L Normal -2-0 [facility] Comment on above: Order Comment: Speci men Type: VENOUS BLOOD SPECIMENOrdering Facility: [facility] Address: [address] [place] [address] Performed By: #### 2 4344-4 ####[facility] [id number] [address] STATES OF [facility] Body temperature 97.52 [degF] Normal [facility] Comment on above: Order Comment: Speci men Type: VENOUS BLOOD SPECIMENOrdering Facility: [facility] Address: [address] [place] [address] Performed By: #### 2 4344-4 ####[facility] LABIA [id number] [address] [place] Calcium.ionized (Bld) [Mass/Vol] 1.17 mmol/L Normal 1.08-1.30 [facility] Comment on above: Order Comment: Speci men Type: VENOUS BLOOD SPECIMENOrdering Facility: [facility] Address: [address] [place] [address] Performed By: #### 2 4344-4 ####[facility] LABIA [id number] [address] [place] Calcium.ionized adjusted to pH 7.4 (BldA) [Moles/Vol] 1.17 mmol/L Normal 1.08-1.30 [facility] Comment on above: Order Comment: Speci men Type: VENOUS BLOOD SPECIMENOrdering Facility: [facility] Address: [address] [place] [address] Performed By: #### 2 4344-4 ####[facility] LABCLIA [id number] [place] [address] [place] Carboxyhemoglobin (BldV) [Mass fraction] 1.4 % Normal 0.0-2.0 [facility] Comment on above: Order Comment: Speci men Type: VENOUS BLOOD SPECIMENOrdering Facility: [facility] Address: [address] [place] [address] Result Comment: Carb oxyhemoglobin Reference Range for Smokers: 2.0-8.0% Performed By: #### 2 4344-4 ####[facility] LABCLIA [id number] [place] [address] [place] CO2 (BldV) [Partial pressure] 37 mm[Hg] Low 42-55 [facility] Comment on above: Order Comment: Speci men Type: VENOUS BLOOD SPECIMENOrdering Facility: [facility] Address: [address] Performed By: #### 2 4344-4 ####[facility] LABIA [id number] [place] [address] [place] CO2 [Moles/Vol] 23 mmol/L Low 25-29 [facility] Comment on above: Order Comment: Speci men Type: VENOUS BLOOD SPECIMENOrdering Facility: [facility] Address: [address] Performed By: #### 2 4344-4 ####[facility] LABCLIA [id number] [place] [address] [place] CO2 adjusted to patient's actual temperature (BldV) [Partial pressure] 35 mmHg Low 42-55 [facility] Comment on above: Order Comment: Speci men Type: VENOUS BLOOD SPECIMENOrdering Facility: [facility] Address: [address] Performed By: #### 2 4344-4 ####[facility] LABCLIA [id number] [place] [address] [place] Glucose [Mass/Vol] 198 mg/dL High 60-[address] [facility] Comment on above: Order Comment: Speci men Type: VENOUS BLOOD SPECIMENOrdering Facility: [facility] Address: [address] [place] [address] Performed By: #### 2 4344-4 ####[facility] LABCLIA [id number] [place] [address] [place] HCO3 (Bld) [Moles/Vol] 22 mmol/L Low 24-28 [facility] Comment on above: Order Comment: Speci men Type: VENOUS BLOOD SPECIMENOrdering Facility: [facility] Address: [address] [place] [address] Performed By: #### 2 4344-4 ####[facility] LABCLIA [id number] [place] [address] [place] Hematocrit (Bld) [Volume fraction] 36.4 % Low 39.0-51.0 [facility] Comment on above: Order Comment: Speci men Type: VENOUS BLOOD SPECIMENOrdering Facility: [facility] Address: [address] [place], [place] [address] Performed By: #### 2 4344-4 ####[facility] LABCLIA [id number] [place] [address] [place] Hemoglobin (Bld) [Mass/Vol] 11.8 g/dL Low 13.0-17.0 [facility] Comment on above: Order Comment: Speci men Type: VENOUS BLOOD SPECIMENOrdering Facility: [facility] Address: [address] [place], [place] [address] Performed By: #### 2 4344-4 ####[facility] LABCLIA [id number] [place] [address] [place] Lactate [Moles/Vol] 1.9 mmol/L Normal 0.5-2.2 [facility] Comment on above: Order Comment: Speci men Type: VENOUS BLOOD SPECIMENOrdering Facility: [facility] Address: [address] Performed By: #### 2 4344-4 ####[facility] LABCLIA [id number] [place] [address] [place] Methemoglobin (Bld) [Mass fraction] 1.1 % Normal 0.0-1.5 [facility] Comment on above: Order Comment: Speci men Type: VENOUS BLOOD SPECIMENOrdering Facility: [facility] Address: [address] Performed By: #### 2 4344-4 ####[facility] LABCLIA [id number] [address] [place] O2 THERAPY RA=Room Air Normal [facility] Comment on above: Order Comment: Speci men Type: VENOUS BLOOD SPECIMENOrdering Facility: [facility] Address: [address] Performed By: #### 2 4344-4 ####[facility] LABCLIA [id number] [place] [address] [place] Oxygen (BldV) [Partial pressure] 50 mm[Hg] High 35-45 [facility] Comment on above: Order Comment: Speci men Type: VENOUS BLOOD SPECIMENOrdering Facility: [facility] Address: [address] Performed By: #### 2 4344-4 ####[facility] LABCLIA [id number] [place] [address] [place] Oxygen adjusted to patient's actual temperature (BldV) [Partial pressure] 48 mmHg High 35-45 [facility] Comment on above: Order Comment: Speci men Type: VENOUS BLOOD SPECIMENOrdering Facility: [facility] Address: [address] Performed By: #### 2 4344-4 ####[facility] LABCLIA [id number] [place] [address] [place] Oxygen saturation in Venous blood 82 % Normal 60-85 [facility] Comment on above: Order Comment: Speci men Type: VENOUS BLOOD SPECIMENOrdering Facility: [facility] Address: [address] [place] [address] Performed By: #### 2 4344-4 ####[facility] LABCLIA [id number] [place] [address] [place] Oxyhemoglobin (BldV) [Mass fraction] 80 % Normal 60-85 [facility] Comment on above: Order Comment: Speci men Type: VENOUS BLOOD SPECIMENOrdering Facility: [facility] Address: [address] [place] [address] Performed By: #### 2 4344-4 ####[facility] LABCLIA [id number] [place] [address] [place] pH (BldV) 7.39 [pH] Normal 7.32-7.42 [facility] Comment on above: Order Comment: Speci men Type: VENOUS BLOOD SPECIMENOrdering Facility: [facility] Address: [address] [place], [place] [address] Performed By: #### 2 4344-4 ####[facility] LABCLIA [id number] [place] [address] [place] pH adjusted to patient's actual temperature (BldV) 7.40 Normal 7.32-7.42 [facility] Comment on above: Order Comment: Speci men Type: VENOUS BLOOD SPECIMENOrdering Facility: [facility] Address: [address] [place], [place] [address] Performed By: #### 2 4344-4 ####[facility] LABCLIA [id number] [place] [address] [place] Potassium [Moles/Vol] 2.9 mmol/L Low 3.5-5.0 [facility] Comment on above: Order Comment: Speci men Type: VENOUS BLOOD SPECIMENOrdering Facility: [facility] Address: [address] [facility] [address] [id number] Performed By: #### 2 4344-4 ####[facility] LABCLIA [id number] [address] [place] Sodium [Moles/Vol] 137 mmol/L Normal 136-[address] [facility] Comment on above: Order Comment: Speci men Type: VENOUS BLOOD SPECIMENOrdering Facility: [facility] Address: [address] [address] Performed By: #### 2 4344-4 ####[facility] LABIA [id number] [place] [address] [place] OPERATIVE NOon 05-17-2022 OPERATIVE NO HNO ID: [id number] Author: Tristin Wilcox MD, PhD Service: Colorectal Author Type: Physician Type: Operative Report Filed: 05/31/2022 2:52 PM Note Text: OPERATIVE REPORT LOG ID: [id number] SURGERY DATE: 05/17/2022 INCISION/PROCEDURE START TIME: 10:17 AM INCISION CLOSE/PROCEDURE END TIME: 11:27 AM PREOPERATIVE DIAGNOSIS: Prolapsing, symptomatic, large internal and external hemorrhoids. Colonic polyps. POSTOPERATIVE DIAGNOSIS: Grade 4; Prolapsing, symptomatic, large internal and external hemorrhoids. Colonic polyps. Surgeon(s)/Proceduralist(s) and Cloud Administrator(s): Surgeon(s) and Role: * Tristin Wilcox MD, [...] with assistance. PATIENT NAME: Ben Guadalupe Normal [facility] POTASSIUM BLDon 05-17-2022 Potassium [Moles/Vol] 3.0 mmol/L Low 3.7-5.1 [facility] Comment on above: Order Comment: Speci men Type: BLOOD SPECIMENOrdering Facility: [facility] Address: [address] [place] [address] Performed By: #### K 1 ####[facility] LABCLIA [id number] [facility] [id number] [place] [address] [facility] SURGICAL PATHOLOGYon CASE REPORT Normal [facility] Comment on above: Order Comment: Speci men Type: TISSUE SPECIMENOrdering Facility: [facility] Address: [address] [place] [address] Result Comment: Surg ical Pathology Report Case: [id number] Authorizing Provider: Tristin Wilcox, Collected: 05/17/2022 10:25 AM , PhD Ordering Location: Admitting Received: 05/17/2022 01:44 PM Pathologist: Daryn June MD Specimens: A) - COLON POLYP, RIGHT COLON POLYP B) - COLON POLYP, LEFT COLON POLYP C) - RECTAL POLYP D) - HEMORRHOID, left lateral E) - HEMORRHOID, right posterior Performed By: #### S ####[facility] LABCLIA [id number] [address] LABCLIA [id number] [address] CLINICAL HISTORY Normal [facility] Comment on above: Order Comment: Speci men Type: TISSUE SPECIMENOrdering Facility: [facility] Address: [address] [place] [address] Result Comment: Pre- op diagnosis: Fourth degree hemorrhoids [K64.3] Performed By: #### S ####[facility] LABCLIA [id number] [address] LABCLIA [id number] [address] FINAL DIAGNOSIS Normal [facility] Comment on above: Order Comment: Speci men Type: TISSUE SPECIMENOrdering Facility: [facility] Address: [address] [place] [address] Result Comment: A. C olon, right, polyp, biopsy: - Tubular adenoma. B. Colon, left, polyp, biopsy: - Tubular adenoma. C. Rectum, polyp, biopsy: - Tubular adenoma. D. Anus, left lateral, hemorrhoid, excision: - Fibroepithelial polyp. E. Anus, right posterior, hemorrhoid, excision: - Dilated hemorrhoidal varices. Performed By: #### S ####[facility] LABCLIA [id number] [address] LABCLIA [id number] [address] FINAL PERFORMING LAB Normal [facility] Comment on above: Order Comment: Speci men Type: TISSUE SPECIMENOrdering Facility: [facility] Address: [address] [address] Result Comment: Diag nostic interpretation performed at [facility], [address] [place] [address] CLIA# [id number] Associate Data Scientist: Nga Schultz M.D. Performed By: #### S ####[facility] LABCLIA [id number] [address] OF [facility] LABCLIA [id number] [address] GROSS DESCRIPTION A. COLON POLYP Normal [facility] Comment on above: Order Comment: Speci men Type: TISSUE SPECIMENOrdering Facility: [facility] Address: [address] [address] Result Comment: Rece ived in formalin is one piece of csaon, soft tissue measuring 0.3 x 0.2 x [...] 0.1 cm. Totally submitted in one cassette. [facility] May 17, 2022 3:41 PM Gross examination performed at [facility], [address] [place] [address] D. HEMORRHOID Received fresh designated left lateral is a cason-busby portion of skin that measures 4.5 x 1.5 x 1 cm. Sectioning through the specimen reveals hemorrhagic cut surfaces. [place] [employer] Weaver sections are submitted in 1 cassette. [facility] May 17, 2022 3:17 PM Gross examination performed at [facility], [facility] [place] [address] E. HEMORRHOID Received fresh designated right posterior is a pink-cason portion of skin that measures 3.9 x 0.6 x 0.6 cm. Sectioning through the specimen reveals hemorrhagic cut surfaces. [place] Weaver sections are submitted in 1 cassette. WE May 17, 2022 3:19 PM Gross examination performed at [facility], [address] [place] [address] Performed By: #### S ####[facility] LABCLIA [id number] [address] LABCLIA [id number] [facility]ED[facility] [id number] [place] [address] Oralia 05-16-2022 CADY Telephone (KADIE) BEN GUADALUPE ([id number]) 1935 M Date Time Provider Department 05/16/22 [...] Encounter Status:Closed by DELICIA FULLER on 05/16/22 Normal [facility] Telephone (CORN) BEN GUADALUPE ([id number]) 1935 M Date Time Provider Department 05/16/22 [...] PA-C - Fully Assessed 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 [3602] Prescriptions as of 05/16/2022 [...] by MARIA LUISA GARCIA on 05/16/22 Normal [facility] CBC panel Auto (Bld)on 05-10 Erythrocyte distribution width (RBC) [Ratio] 14.1 % Normal 11.5-15.0 [facility] Comment on above: Order Comment: Mayito borden Type: BLOOD SPECIMENOrdering Facility: [facility] Address: [address] [address] Performed By: #### 5 8410-2 ####[facility] LABCLIA [id number] [place] [address] [place] Hematocrit (Bld) [Volume fraction] 38.9 % Low 39.0-51.0 [facility] Comment on above: Order Comment: Theoi suha Type: BLOOD SPECIMENOrdering Facility: [facility] Address: [address] [address] Performed By: #### 5 8410-2 ####[facility] LABCLIA [id number] [place] [address] [place] Hemoglobin (Bld) [Mass/Vol] 12.2 g/dL Low 13.0-17.0 [facility] Comment on above: Order Comment: Speci men Type: BLOOD SPECIMENOrdering Facility: [facility] Address: [address] [place], [place] [address] Performed By: #### 5 8410-2 ####[facility] LABIA [id number] [address] MCH (RBC) [Entitic mass] 28.4 pg Normal 26.0-34.0 [facility] Comment on above: Order Comment: Speci men Type: BLOOD SPECIMENOrdering Facility: [facility] Address: [address] [place], [place] [address] Performed By: #### 5 8410-2 ####[facility] LABIA [id number] [address] [place] MCHC (RBC) [Mass/Vol] 31.4 g/dL Normal 30.5-36.0 [facility] Comment on above: Order Comment: Speci men Type: BLOOD SPECIMENOrdering Facility: [facility] Address: [address] [place], [place] [address] Performed By: #### 5 8410-2 ####[facility] LABIA [id number] [address] [place] MCV (RBC) [Entitic vol] 90.5 fL Normal 80.0-100.0 [facility] Comment on above: Order Comment: Speci men Type: BLOOD SPECIMENOrdering Facility: [facility] Address: [address] [place], [place] [address] Performed By: #### 5 8410-2 ####[facility] LABIA [id number] [address] [place] Nucleated RBC (Bld) [#/Vol] 10*3/uL Normal <0.01 [facility] Comment on above: Order Comment: Speci men Type: BLOOD SPECIMENOrdering Facility: [facility] Address: [address] [place] [address] Performed By: #### 5 8410-2 ####[facility] LABCLIA [id number] [place] [address] [place] Platelet mean volume (Bld) [Entitic vol] 10.9 fL Normal 9.0-12.7 [facility] Comment on above: Order Comment: Speci men Type: BLOOD SPECIMENOrdering Facility: [facility] Address: [address] [place], [place] [address] Performed By: #### 5 8410-2 ####[facility] LABCLIA [id number] [place] [address] [place] Platelets (Bld) [#/Vol] 135 10*3/uL Low 150-400 [facility] Comment on above: Order Comment: Speci men Type: BLOOD SPECIMENOrdering Facility: [facility] Address: [address] [place], [place] [address] Performed By: #### 5 8410-2 ####[facility] LABIA [id number] [place] [address] [place] RBC (Bld) [#/Vol] 4.30 10*6/uL Normal 4.20-6.00 [facility] Comment on above: Order Comment: Speci men Type: BLOOD SPECIMENOrdering Facility: [facility] Address: [address] [place] [address] Performed By: #### 5 8410-2 ####[facility] LABCLIA [id number] [place] [address] [place] WBC (Bld) [#/Vol] 4.75 10*3/uL Normal 3.70-11.00 [facility] Comment on above: Order Comment: Speci men Type: BLOOD SPECIMENOrdering Facility: [facility] Address: [address] [place], [place] [address] Performed By: #### 5 8410-2 ####[facility] LABCLIA [id number] [address] [place] CONFIRM BLOOD TYPEon 022 ABO A Normal [facility] Comment on above: Order Comment: Speci men Type: BLOOD SPECIMENOrdering Facility: [facility] Address: [address] [place] [address] Performed By: #### C ONABO ####[facility] BLOOD BANKCLIA [id number] [place] [address] [place] Rh Nom (Bld) Negative Normal [facility] Comment on above: Order Comment: Speci men Type: BLOOD SPECIMENOrdering Facility: [facility] Address: [address] [place] [address] Performed By: #### C ONABO ####[facility] BLOOD BANKCLIA [id number] [place] [address] [place] Comprehensive metabolic 2000 panelon 05-10-2022 Albumin [Mass/Vol] 4.4 g/dL Normal 3.9-4.[address] [facility] Comment on above: Order Comment: Speci men Type: BLOOD SPECIMENOrdering Facility: [facility] Address: [address] [place] [address] Performed By: #### 2 4323-8 ####[facility] LABCLIA [id number] [place] [address] [place] ALP [Catalytic activity/Vol] 54 U/L Normal 38-113 [facility] Comment on above: Order Comment: Speci men Type: BLOOD SPECIMENOrdering Facility: [facility] Address: [address] [place], [place] [address] Performed By: #### 2 4323-8 ####[facility] LABCLIA [id number] [place] [address] [place] ALT [Catalytic activity/Vol] 55 U/L High 10-54 [facility] Comment on above: Order Comment: Speci men Type: BLOOD SPECIMENOrdering Facility: [facility] Address: [address] [place], [place] [address] Performed By: #### 2 4323-8 ####[facility] LABCLIA [id number] [place] [address] [place] Anion gap [Moles/Vol] 12 mmol/L Normal 9-18 [facility] Comment on above: Order Comment: Speci men Type: BLOOD SPECIMENOrdering Facility: [facility] Address: [address] [address] Performed By: #### 2 4323-8 ####[facility] LABCLIA [id number] [place] [address] [place] AST [Catalytic activity/Vol] 27 U/L Normal 14-40 [facility] Comment on above: Order Comment: Speci men Type: BLOOD SPECIMENOrdering Facility: [facility] Address: [address] [place], [place] [address] Performed By: #### 2 4323-8 ####[facility] LABCLIA [id number] [place] [address] [place] Bilirubin [Mass/Vol] 0.3 mg/dL Normal 0.2-1.3 [facility] Comment on above: Order Comment: Speci men Type: BLOOD SPECIMENOrdering Facility: [facility] Address: [address] Performed By: #### 2 4323-8 ####[facility] LABCLIA [id number] [place] [address] [place] Calcium [Mass/Vol] 9.1 mg/dL Normal 8.5-10.[address] [facility] Comment on above: Order Comment: Speci men Type: BLOOD SPECIMENOrdering Facility: [facility] Address: [address] [place], [place] [address] Performed By: #### 2 4323-8 ####[facility] LABCLIA [id number] [address] [place] Chloride [Moles/Vol] 100 mmol/L Normal 97-105 [facility] Comment on above: Order Comment: Speci men Type: BLOOD SPECIMENOrdering Facility: [facility] Address: [address] [address] Performed By: #### 2 4323-8 ####[facility] LABCLIA [id number] [address] OF [facility] CO2 [Moles/Vol] 29 mmol/L Normal 22-30 [facility] Comment on above: Order Comment: Speci men Type: BLOOD SPECIMENOrdering Facility: [facility] Address: [address] [place] [address] Performed By: #### 2 4323-8 ####[facility] LABIA [id number] [address] STATES OF [facility] Creatinine [Mass/Vol] 1.09 mg/dL Normal 0.73-1.22 [facility] Comment on above: Order Comment: Speci men Type: BLOOD SPECIMENOrdering Facility: [facility] Address: [address] [place] [address] Performed By: #### 2 4323-8 ####[facility] LABIA [id number] [address] [facility] ESTIMATED GLOMERULAR FILTRATION RATE 67 mL/min/1.73m??? Normal >=60 [facility] Comment on above: Order Comment: Speci men Type: BLOOD SPECIMENOrdering Facility: [facility] Address: [address] [place] [address] Result Comment: [place] mated Glomerular Filtration Rate [...] actual GFR. Performed By: #### 2 4323-8 ####[facility] LABCLIA [id number] [place] [address] [place] Glucose [Mass/Vol] 217 mg/dL High 74-[address] [facility] Comment on above: Order Comment: Speci men Type: BLOOD SPECIMENOrdering Facility: [facility] Address: [address] [place] [address] Result Comment: The [place] Diabetes Association (ADA) provides guidance for cutoff [...] Standards of Medical Care in Diabetes 2016, [place] [employer] Association. Diabetes Care. 2016.39(Suppl 1). Performed By: #### 2 4323-8 ####[facility] LABIA [id number] [place] [address] [place] Potassium [Moles/Vol] 3.2 mmol/L Low 3.7-5.1 [facility] Comment on above: Order Comment: Speci men Type: BLOOD SPECIMENOrdering Facility: [facility] Address: [address] [address] Performed By: #### 2 4323-8 ####[facility] LABIA [id number] [place] [address] [place] Protein [Mass/Vol] 6.4 g/dL Normal 6.3-8.[address] [facility] Comment on above: Order Comment: Speci men Type: BLOOD SPECIMENOrdering Facility: [facility] Address: [address] [place] [address] Performed By: #### 2 4323-8 ####[facility] LABCLIA [id number] [place] [address] [place] Sodium [Moles/Vol] 141 mmol/L Normal 136-[address] [facility] Comment on above: Order Comment: Speci men Type: BLOOD SPECIMENOrdering Facility: [facility] Address: [address] [place] [address] Performed By: #### 2 4323-8 ####[facility] LABCLIA [id number] [place] [address] [place] Urea nitrogen [Mass/Vol] 26 mg/dL High 9-24 [facility] Comment on above: Order Comment: Speci men Type: BLOOD SPECIMENOrdering Facility: [facility] Address: [address] [place] [address] Performed By: #### 2 4323-8 ####[facility] LABCLIA [id number] [address] [place] ECG COMPLETEon 05-10-2022 ECG COMPLETE Ventricular Rate : 7 6 BPM Atrial Rate : 76 BPM P-R Interval : 130 ms QRS Duration : 134 ms Q-T Interval : 442 ms QTC Calculation(Bazett) : 497 ms Calculated P Hulen : 37 degrees Calculated R Hulen : 64 degrees Calculated T Hulen : -10 degrees NORMAL SINUS RHYTHM COMPLETE RIGHT BUNDLE BRANCH BLOCK INFERIOR T WAVE ABNORMALITY ABNORMAL ECG Confirmed by YENNI TANNER MD ([id number]) on 05/14/2022 7:11:13 PM NAME : BEN GUADALUPE PID : [id number] : 1935 Gender : Male Race : ORD : [id number] Procedure Date : May 10 2022 11:57:54 Edit Date : May 14 2022 19:11:14 Diagnosis: NORMAL SINUS RHYTHM COMPLETE RIGHT BUNDLE BRANCH BLOCK INFERIOR T WAVE ABNORMALITY ABNORMAL ECG Confirmed by YENNI TANNER MD ([id number]) on 05/14/2022 7:11:13 PM Test Reason : Location : 119 : A17 Overread By : YENNI TANNER MD Edited By : YENNI TANNER MD Referred By : TRISTIN WILCOX Acquired by : CHANELLE FRANKLIN [facility] HISTORY PHYSICALon HISTORY PHYSICAL HNO ID: [id number] Author: Afia Downing PA-C Service: ? Author Type: Physician Cloud Administrator Type: HANDP Filed: 05/13/2022 10:05 AM Note [...] disease (HCC) 11/27/2021 Deep vein thrombosis (DVT) ([facility]) 1989 LLE- unprovoked Dementia in other diseases classified elsewhere, unspecified severity, without behavioral disturbance, psychotic disturbance, mood disturbance, and anxiety ([facility]) 11/27/2021 Diabetes ([facility]) Diabetes mellitus ([facility]) 11/01/2021 Essential (primary) hypertension 08/13/2017 Gastroesophageal reflux disease with esophagitis 05/10/2022 History of DVT (deep vein thrombosis) 05/10/2022 History of primary malignant neoplasm of urinary bladder 04/22/2022 History of prostate cancer 08/01/2015 Hypothyroidism unspecified 07/10/2021 Intracranial hemorrhage ([facility]) 05/10/2022 Neuropathy PAF (paroxysmal atrial fibrillation) ([facility]) 03/18/2022 Parkinson's disease ([facility]) PONV (postoperative nausea and vomiting) [...] capsule Take (more content not included)... Normal [facility] HbA1c (Bld)on 05-10-2022 Average glucose Estimated from glycated hemoglobin (Bld) [Mass/Vol] 151 mg/dL Normal [facility] Comment on above: Order Comment: Mayito borden Type: BLOOD SPECIMENOrdering Facility: [facility] Address: [address] [address] Result Comment: eAG: (Estimated average glucose) is a calculated value from HgbA1c and is service center representative of the average blood glucose level in the last 2-3 month period. Performed By: #### 5 5454-3 ####[facility] LABIA [id number] [address] STATES OF [facility] HbA1c (Bld) [Mass fraction] 6.9 % High 4.3-5.6 [facility] Comment on above: Order Comment: Mayito borden Type: BLOOD SPECIMENOrdering Facility: [facility] Address: [address] [address] Result Comment: [place] Diabetes Association guidelines indicate that patients with HgbA1c in the range 5.7-6.4% are at increased risk for development of diabetes, and intervention by lifestyle modification may be beneficial. HgbA1c greater or equal to 6.5% is considered diagnostic of diabetes. Performed By: #### 5 5454-3 ####[facility] LABCLIA [id number] [address] [place] TYPE AND SCREEN,30 DAYon ABO A Normal [facility] Comment on above: Order Comment: Mayito borden Type: BLOOD SPECIMENOrdering Facility: [facility] Address: [address] [address] Performed By: #### T SCR30 ####[facility] BLOOD BANKIA [id number] [address] HISTORICAL AB SCR STATUS Negative Normal [facility] Comment on above: Order Comment: Speci men Type: BLOOD SPECIMENOrdering Facility: [facility] Address: [address] [address] Performed By: #### T SCR30 ####[facility] B[facility] BANKCLIA [id number] [address] Rh Nom (Bld) Negative Normal [facility] Comment on above: Order Comment: Speci men Type: BLOOD SPECIMENOrdering Facility: [facility] Address: [address] [address] Performed By: #### T SCR30 ####[facility] BLOOD BANKCLIA [id number] [address] [place] 04-25-2022 CADY Telephone (KADIE) BEN GUADALUPE ([id number]) 1935 M Date Time Provider Department 04/25/22 [...] 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 Please call her at : [phone] at 11:30 AM or later, as she [...] Encounter Status:Closed by DELICIA FULLER on 04/25/22 [facility] [place] 04-24-2022 CADY Telephone (KADIE) BEN GUADALUPE ([id number]) 1935 M Date Time Provider Department 04/24/22 MARIKA ZUÑIGA During your visit today, we recorded the following information about you: Marika Zuñiga RN 04/24/2022 2:02 PM Signed SPECIALTY CARE COORDINATION FOLLOW-UP NOTE Message left Pt to call in to discuss setting up surgery Offered 05/17/22 surgical date Any pre-operative business date within 30 days of surgical date Call back number left Signature Marika ARNOLDO Zuñiga April 24, 2022 Allergies As of Date: 04/24/2022 Noted Allergy Reaction TIZANIDINE 05/11/2019 1 - Mental Status Change 11 - Vomiting OXYCODONE-ACETAMINOPHEN 06/03/2016 11 - Vomiting Comments: Other reaction(s): vomiting Date Reviewed: 04/17/2022 Reviewed by: Tori Enriquez RN - Fully Assessed 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 Normal [facility] Flexible Sigmoidoscopyon Flexible sigmoidoscopy A30 Gastrointestinal [...] previous diet. Procedure Code(s): --- Professional --- 21491, Sigmoidoscopy, flexible; diagnostic, including collection of specimen(s) by brushing or washing, when performed (separate procedure) Diagnosis Code(s): --- Professional --- K64.3, Fourth degree hemorrhoids K62.1, Rectal polyp K92.1, Melena (includes Hematochezia) K57.30, Diverticulosis of large intestine without perforation or abscess without bleeding CPT copyright 2019 [place] [employer]. All rights reserved. The codes documented in this report are preliminary and upon relief salesperson review may be revised to meet current compliance requirements. Attending Participation: I personally performed the entire procedure. Scope In: Scope Out: Dr. Tristin Wilcox MD 04/17/2022 2:21:53 PM This report has been signed electronically. Number of Addenda: 0 Note Initiated On: 04/17/2022 1:38 PM Normal [facility] HISTORY PHYSICALon HISTORY PHYSICAL HNO ID: [id number] Author: Tristin Wilcox MD, PhD Service: ? [...] Procedure Laterality Date PAST SURGICAL HISTORY OF 1969 hemorrhoidectomy PAST SURGICAL HISTORY OF hernia repair [...] PACC s (more content not included)... Normal [facility] SIGMOIDOSCOPYon 04-17-2022 [facility] POINT OF CARE GLUCOSEon 04-06 Glucose [Mass/Vol] 268 mg/dL Critically high 74-106 [facility] Comment on above: Performed By: #### P OCGLUC #### [facility] [address] [address] [address] Mason Astudillo CBC AUTO DIFFon 04-11-2022 BASO # 0.0 103/ul Normal 0.0-0.1 [facility] Comment on above: Performed By: #### U A #### [facility] [address] [address] [address] Mason Astudillo Basophils/100 WBC (Bld) 0.4 % Normal 0.2-2.0 [facility] Comment on above: Performed By: #### U A #### [facility] [address] [address] [address] Mason Astudillo EO # 0.1 103/ul Normal 0.0-0.7 [facility] Comment on above: Performed By: #### U A #### [facility] [address] [place] [address] Dr. Mason Astudillo Eosinophils/100 WBC (Bld) 1.9 % Normal 0.9-7.0 [facility] Comment on above: Performed By: #### U A #### [facility] [address] [place] [address] Dr. Mason Astudillo Erythrocyte distribution width (RBC) [Ratio] 16.0 % Critically high 11.0-15.0 [facility] Comment on above: Performed By: #### U A #### [facility] [address] [place] [address] Dr. Mason Astudillo Hematocrit (Bld) [Volume fraction] 27.4 % Critically low 42.0-54.0 [facility] Comment on above: Performed By: #### U A #### [facility] [address] [place] [address] Dr. Mason Astudillo Hemoglobin (Bld) [Mass/Vol] 8.7 g/dL Critically low 14.0-18.0 [facility] Comment on above: Performed By: #### U A #### [facility] [address] [place] [address] Dr. Mason Astudillo IG # 0.03 10e3/ul Normal 0.00-0.03 [facility] Comment on above: Performed By: #### U A #### [facility] [address] [place] [address] Dr. Mason Astudillo IG % 0.6 % Critically high 0.0-0.5 [facility] Comment on above: Performed By: #### U A #### [facility] [address] [place] [address] Dr. Mason Astudillo LYMPH # 0.7 103/ul Critically low 1.2-3.8 [facility] Comment on above: Performed By: #### U A #### [facility] [address] [place] [address] Dr. Mason Astudillo Lymphocytes/100 WBC (Bld) 15.8 % Critically low 20.5-60.0 [facility] Comment on above: Performed By: #### U A #### [facility] [address] [place] [address] Dr. Mason Astudillo MANUAL DIFF REQ NO Normal [facility] Comment on above: Performed By: #### U A #### [facility] [address] [place] [address] Dr. Mason Astudillo MCH (RBC) [Entitic mass] 29.9 pg Normal 25.9-34.0 [facility] Comment on above: Performed By: #### U A #### [facility] [address] [place] [address] Dr. Mason Astudillo MCHC (RBC) [Mass/Vol] 31.8 g/dL Normal 29.9-35.2 [facility] Comment on above: Performed By: #### U A #### [facility] [address] [place] [address] Dr. Mason Astudillo MCV (RBC) [Entitic vol] 94.2 fL Critically high 80.0-94.0 [facility] Comment on above: Performed By: #### U A #### [facility] [address] [place] [address] Dr. aMson Astudillo MONO # 0.3 103/ul Normal 0.3-0.8 [facility] Comment on above: Performed By: #### U A #### [facility] [address] [place] [address] Dr. Mason Astudillo Monocytes/100 WBC (Bld) 6.9 % Normal 1.7-12.0 [facility] Comment on above: Performed By: #### U A #### [facility] [address] [place] [address] Dr. Mason Astudillo NEUT # 3.4 103/ul Normal 1.4-6.5 [facility] Comment on above: Performed By: #### U A #### [facility] [address] [place] [address] Dr. Mason Astudillo Neutrophils/100 WBC (Bld) 74.4 % Normal 43.0-75.0 [facility] Comment on above: Performed By: #### U A #### [facility] [address] [place] [address] Dr. Mason Astudillo Platelet mean volume (Bld) [Entitic vol] 10.6 fL Normal 9.5-13.5 [facility] Comment on above: Performed By: #### U A #### [facility] [address] [place] [address] Dr. Mason Astudillo PLT 117 103/ul Critically low 150-450 [facility] Comment on above: Performed By: #### U A #### [facility] [address] [place] [address] Dr. Mason Astudillo RBC 2.91 106/ul Critically low 4.70-6.10 [facility] Comment on above: Performed By: #### U A #### [facility] [address] [place] [address] Dr. Mason Astudillo WBC 4.6 103/ul Normal 4.0-11.0 [facility] Comment on above: Performed By: #### U A #### [facility] [address] [place] [address] Dr. Mason Astudillo CARDIAC STRESS TESTon 2021 [...] be dictated separately by Radiology. Normal [facility] NM STRESS/REST MULTIon 03-26 NM STRESS/REST MULTI Patient: BEN GUADALUPE Exam Date: 03/26/2022 : 1935 Gender:M Ordering : DR KAVITA DANIELLE M.D. Admission #: [id number] Family : Order #: [id number] CLICK HERE TO VIEW EXAM RADIOLOGY REPORT [...] MD on 03/27/2022 at 08:14 Normal [facility] CBC AUTO DIFFon 03-18-2022 BASO # 0.0 103/ul Normal 0.0-0.1 [facility] Comment on above: Performed By: #### P OCGLUC #### [facility] [address] [address] [address] Mason Astudillo Basophils/100 WBC (Bld) 0.5 % Normal 0.2-2.0 [facility] Comment on above: Performed By: #### P OCGLUC #### [facility] [address] [address] [address] Mason Astudillo EO # 0.1 103/ul Normal 0.0-0.7 [facility] Comment on above: Performed By: #### P OCGLUC #### [facility] [address] [place] [address] Dr. Mason Astudillo Eosinophils/100 WBC (Bld) 2.3 % Normal 0.9-7.0 [facility] Comment on above: Performed By: #### P OCGLUC #### [facility] [address] [address] [address] Mason Astudillo Erythrocyte distribution width (RBC) [Ratio] 17.2 % Critically high 11.0-15.0 [facility] Comment on above: Performed By: #### P OCGLUC #### [facility] [address] [place] [address] Dr. Mason Astudillo Hematocrit (Bld) [Volume fraction] 43.9 % Normal 42.0-54.0 [facility] Comment on above: Performed By: #### P OCGLUC #### [facility] [address] [place] [address] Dr. Mason Astudillo Hemoglobin (Bld) [Mass/Vol] 14.1 g/dL Normal 14.0-18.0 [facility] Comment on above: Performed By: #### P OCGLUC #### [facility] [address] [place] [address] Dr. Mason Astudillo IG # 0.04 10e3/ul Critically high 0.00-0.03 [facility] Comment on above: Performed By: #### P OCGLUC #### [facility] [address] [address] [address] Mason Astudillo IG % 0.7 % Critically high 0.0-0.5 [facility] Comment on above: Performed By: #### P OCGLUC #### [facility] [address] [address] [address] Mason Astudillo LYMPH # 1.1 103/ul Critically low 1.2-3.8 [facility] Comment on above: Performed By: #### P OCGLUC #### [facility] [address] [address] [address] Mason Astudillo Lymphocytes/100 WBC (Bld) 18.3 % Critically low 20.5-60.0 [facility] Comment on above: Performed By: #### P OCGLUC #### [facility] [address] [place] [address] Dr. Mason Astudillo MANUAL DIFF REQ NO Normal [facility] Comment on above: Performed By: #### P OCGLUC #### [facility] [address] [place] [address] Dr. Mason Astudillo MCH (RBC) [Entitic mass] 29.3 pg Normal 25.9-34.0 [facility] Comment on above: Performed By: #### P OCGLUC #### [facility] [address] [place] [address] Dr. Maosn Astudillo MCHC (RBC) [Mass/Vol] 32.1 g/dL Normal 29.9-35.2 [facility] Comment on above: Performed By: #### P OCGLUC #### [facility] [address] [place] [address] Dr. Mason Astudillo MCV (RBC) [Entitic vol] 91.1 fL Normal 80.0-94.0 [facility] Comment on above: Performed By: #### P OCGLUC #### [facility] [address] [place] [address] Dr. Mason Astudillo MONO # 0.5 103/ul Normal 0.3-0.8 [facility] Comment on above: Performed By: #### P OCGLUC #### [facility] [address] [address] [address] Mason Astudillo Monocytes/100 WBC (Bld) 7.7 % Normal 1.7-12.0 [facility] Comment on above: Performed By: #### P OCGLUC #### [facility] [address] [address] [address] Mason Astudillo NEUT # 4.3 103/ul Normal 1.4-6.5 [facility] Comment on above: Performed By: #### P OCGLUC #### [facility] [address] [address] [address] Mason Astudillo Neutrophils/100 WBC (Bld) 70.5 % Normal 43.0-75.0 [facility] Comment on above: Performed By: #### P OCGLUC #### [facility] [address] [place] [address] Dr. Mason Astudillo Platelet mean volume (Bld) [Entitic vol] 9.9 fL Normal 9.5-13.5 [facility] Comment on above: Performed By: #### P OCGLUC #### [facility] [address] [address] [address] Mason Astudillo PLT 130 103/ul Critically low 150-450 [facility] Comment on above: Performed By: #### P OCGLUC #### [facility] [address] [place] [address] Dr. Mason Astudillo RBC 4.82 106/ul Normal 4.70-6.10 [facility] Comment on above: Performed By: #### P OCGLUC #### [facility] [address] [place] [address] Dr. Mason Astudillo WBC 6.1 103/ul Normal 4.0-11.0 [facility] Comment on above: Performed By: #### P OCGLUC #### [facility] [address] [place] [address] Dr. Mason Astudillo PROF CHEM 8 (BAS METB)on Anion gap [Moles/Vol] 10.8 mmol/L Normal [facility] Comment on above: Performed By: #### U A #### [facility] [address] [address] [address] Mason Astudillo Calcium [Mass/Vol] 8.8 mg/dL Normal 8.5-10.1 [facility] Comment on above: Performed By: #### U A #### [facility] [address] [address] [address] Mason Astudillo Chloride [Moles/Vol] 103 mmol/L Normal 98-107 [facility] Comment on above: Performed By: #### U A #### [facility] [address] [address] [address] Mason Astudillo CO2 [Moles/Vol] 29.9 mmol/L Normal 21.0-32.0 [facility] Comment on above: Performed By: #### U A #### [facility] [address] [place] [address] Dr. Mason Astudillo Creatinine [Mass/Vol] 1.20 mg/dL Normal 0.70-1.30 [facility] Comment on above: Performed By: #### U A #### [facility] [address] [address] [address] Mason Astudillo EGFR-AF [place] >60 Normal >=60 [facility] Comment on above: Performed By: #### U A #### [facility] [address] [place] [address] Dr. Mason Astudillo EGFR-NON AF [place] 58 mL/min/1.73m2 Critically low >=60 [facility] Comment on above: Performed By: #### U A #### [facility] [address] [place] [address] Dr. Mason Astudillo Glucose [Mass/Vol] 202 mg/dL Critically high 74-106 [facility] [facility] Comment [facility]: Performed By: #### U A #### [facility] [address] [address] [address] Mason Astudillo Potassium [Moles/Vol] 3.7 mmol/L Normal 3.5-5.1 [facility] Comment on above: Performed By: #### U A #### [facility] [address] [place] [address] Dr. Mason Astudillo Sodium [Moles/Vol] 140 mmol/L Normal 136-145 [facility] Comment on above: Performed By: #### U A #### [facility] [address] [address] [address] Mason Astudillo Urea nitrogen [Mass/Vol] 22.0 mg/dL Critically high 7.0-18.0 [facility] Comment on above: Performed By: #### U A #### [facility] [address] [address] [address] Mason Astudillo Urea nitrogen/Creatinine [Mass ratio] 18.3 mg/mg Normal [facility] Comment on above: Performed By: #### U A #### [facility] [address] [address] [address] Masno Astudillo XR KUB 1 VIEWon 02-18-2022 XR [...] BRISA SALAS Date: 2022-02-18 15:45 Normal [facility] VIT D 25-OH [facility]on 2021 Vitamin D, 25-Hydroxy 27.3 ng/mL Critically low 30.0-100.0 [facility] Comment on above: Result Comment: Masha min D deficiency has been defined by the [employer] and an Endocrine Society practice guideline as a level of serum 25-OH vitamin D less than 20 ng/mL (1,2). The Endocrine Society went on to further define vitamin D insufficiency as a level between 21 and 29 ng/mL (2). 1. IOM ([employer]). 2010. Dietary reference intakes for calcium and D. [place]: The National Academies Press. 2. Hemalatha MF, Gunnar [place], Kamla ROUSE, et al. Evaluation, treatment, and prevention of vitamin D deficiency: an Endocrine Society clinical practice guideline. JCEM. 2010; 96(9):1911-30. Performed By: #### A 1C #### [facility] [address] [place] [address] Dr. Mason Astudillo CBC AUTO DIFFon 02-06-2022 BASO # 0.0 103/ul Normal 0.0-0.1 [facility] Comment on above: Performed By: #### A 1C #### [facility] [address] [address] [address] Mason Astudillo Basophils/100 WBC (Bld) 0.4 % Normal 0.2-2.0 [facility] Comment on above: Performed By: #### A 1C #### [facility] [address] [place] [address] Dr. Mason Astudillo EO # 0.1 103/ul Normal 0.0-0.7 [facility] Comment on above: Performed By: #### A 1C #### [facility] [address] [place] [address] Dr. Mason Astudillo Eosinophils/100 WBC (Bld) 2.5 % Normal 0.9-7.0 [facility] Comment on above: Performed By: #### A 1C #### [facility] [address] [place] [address] Dr. Mason Astudillo Erythrocyte distribution width (RBC) [Ratio] 16.6 % Critically high 11.0-15.0 [facility] Comment on above: Performed By: #### A 1C #### [facility] [address] [place] [address] Dr. Mason Astudillo Hematocrit (Bld) [Volume fraction] 26.8 % Critically low 42.0-54.0 [facility] Comment on above: Performed By: #### A 1C #### [facility] [address] [place] [address] Dr. Mason Astudillo Hemoglobin (Bld) [Mass/Vol] 8.4 g/dL Critically low 14.0-18.0 [facility] Comment on above: Performed By: #### A 1C #### [facility] [address] [place] [address] Dr. Mason Astudillo IG # 0.12 10e3/ul Critically high 0.00-0.03 [facility] Comment on above: Performed By: #### A 1C #### [facility] [address] [place] [address] Dr. Mason Astudillo IG % 2.5 % Critically high 0.0-0.5 [facility] Comment on above: Performed By: #### A 1C #### [facility] [address] [place] [address] Dr. Mason Astudillo LYMPH # 0.9 103/ul Critically low 1.2-3.8 [facility] Comment on above: Performed By: #### A 1C #### [facility] [address] [place] [address] Dr. Mason Astudillo Lymphocytes/100 WBC (Bld) 18.1 % Critically low 20.5-60.0 [facility] Comment on above: Performed By: #### A 1C #### [facility] [address] [place] [address] Dr. Mason Astudillo MANUAL DIFF REQ NO Normal [facility] Comment on above: Performed By: #### A 1C #### [facility] [address] [place] [address] Dr. Mason Astudillo MCH (RBC) [Entitic mass] 27.7 pg Normal 25.9-34.0 [facility] Comment on above: Performed By: #### A 1C #### [facility] [address] [place] [address] Dr. Mason Astudillo MCHC (RBC) [Mass/Vol] 31.3 g/dL Normal 29.9-35.2 [facility] Comment on above: Performed By: #### A 1C #### [facility] [address] [place] [address] Dr. Mason Astudillo MCV (RBC) [Entitic vol] 88.4 fL Normal 80.0-94.0 [facility] Comment on above: Performed By: #### A 1C #### [facility] [address] [place] [address] Dr. Mason Astudillo MONO # 0.4 103/ul Normal 0.3-0.8 [facility] Comment on above: Performed By: #### A 1C #### [facility] [address] [place] [address] Dr. Mason Astudillo Monocytes/100 WBC (Bld) 9.1 % Normal 1.7-12.0 [facility] Comment on above: Performed By: #### A 1C #### [facility] [address] [place] [address] Dr. Mason Astudillo NEUT # 3.2 103/ul Normal 1.4-6.5 [facility] Comment on above: Performed By: #### A 1C #### [facility] [address] [place] [address] Dr. Mason Astudillo Neutrophils/100 WBC (Bld) 67.4 % Normal 43.0-75.0 [facility] Comment on above: Performed By: #### A 1C #### [facility] [address] [place] [address] Dr. Mason Astudillo Platelet mean volume (Bld) [Entitic vol] 10.2 fL Normal 9.5-13.5 [facility] Comment on above: Performed By: #### A 1C #### [facility] [address] [place] [address] Dr. Mason Astudillo PLT 135 103/ul Critically low 150-450 [facility] Comment on above: Performed By: #### A 1C #### [facility] [address] [place] [address] Dr. Mason Astudillo RBC 3.03 106/ul Critically low 4.70-6.10 [facility] Comment on above: Performed By: #### A 1C #### [facility] [address] [place] [address] Dr. Mason Astudillo WBC 4.7 103/ul Normal 4.0-11.0 [facility] Comment on above: Performed By: #### A 1C #### [facility] [address] [place] [address] Dr. Mason Astudillo GLYCOHEMOGLOBIN A1Con 2021 ADA RECOMMENDATION SEE BELOW Normal [facility] Comment on above: Result Comment: ADA RECOMMENDED LIMIT 4.0 - 6.0 ADA THERAPEUTIC TARGET < 7.0 ACTION SUGGESTED > 7.0 Performed By: #### A 1C #### [facility] [address] [place] [address] Dr. Mason Astudillo Glucose [Mass/Vol] 148 mg/dL Normal [facility] Comment on above: Performed By: #### A 1C #### [facility] [address] [place] [address] Dr. Mason Astudillo HbA1c (Bld) [Mass fraction] 6.8 % Critically high 4.5-6.2 [facility] Comment on above: Performed By: #### A 1C #### [facility] [address] [place] [address] Dr. Mason Astudillo POINT OF CARE GLUCOSEon 08 Glucose [Mass/Vol] 157 mg/dL Critically high 74-106 [facility] Comment on above: Performed By: #### P OCGLUC #### [facility] [address] [place] [address] Dr. Mason Astudillo PROF CHEM 8 (BAS METB)on Anion gap [Moles/Vol] 10.5 mmol/L Normal [facility] Comment on above: Performed By: #### B MP #### [facility] [address] [place] [address] Dr. Mason Astudillo Calcium [Mass/Vol] 8.0 mg/dL Critically low 8.5-10.1 [facility] Comment on above: Performed By: #### B MP #### [facility] [address] [place] [address] Dr. Mason Astudillo Chloride [Moles/Vol] 105 mmol/L Normal 98-107 [facility] Comment on above: Performed By: #### B MP #### [facility] [address] [place] [address] Dr. Mason Astudillo CO2 [Moles/Vol] 27.2 mmol/L Normal 21.0-32.0 [facility] Comment on above: Performed By: #### B MP #### [facility] [address] [address] [address] Mason Astudillo Creatinine [Mass/Vol] 1.11 mg/dL Normal 0.70-1.30 [facility] Comment on above: Performed By: #### B MP #### [facility] [address] [place] [address] Dr. Mason Astudillo EGFR-AF [place]AN >60 Normal >=60 [facility] Comment on above: Performed By: #### B MP #### [facility] [address] [place] [address] Dr. Mason Astudillo EGFR-NON AF [place] >60 Normal >=60 [facility] Comment on above: Performed By: #### B MP #### [facility] [address] [place] [address] Dr. Mason Astudillo Glucose [Mass/Vol] 174 mg/dL Critically high 74-106 T [facility] Comment on above: Performed By: #### B MP #### [facility] [address] [place] [address] Dr. Mason Astudillo Potassium [Moles/Vol] 3.7 mmol/L Normal 3.5-5.1 [facility] Comment on above: Performed By: #### B MP #### [facility] [address] [place] [address] Dr. Mason Astudillo Sodium [Moles/Vol] 139 mmol/L Normal 136-145 [facility] Comment on above: Performed By: #### B MP #### [facility] [address] [place] [address] Dr. Mason Astudillo Urea nitrogen [Mass/Vol] 19.0 mg/dL Critically high 7.0-18.0 [facility] Comment on above: Performed By: #### B MP #### [facility] [address] [place] [address] Dr. Mason Astudillo Urea nitrogen/Creatinine [Mass ratio] 17.1 mg/mg Normal [facility] Comment on above: Performed By: #### B MP #### [facility] [address] [place] [address] Dr. Mason Astudillo CBC W MANUAL DIFFon 02-06-20 22 ATYPICAL LYMPH # Normal [facility] Comment on above: Performed By: #### C BC #### [facility] [address] [place] [address] Dr. Mason Astudillo ATYPICAL LYMPH % Normal [facility] Comment on above: Performed By: #### C BC #### [facility] [address] [place] [address] Dr. Mason Astudillo BAND # 0.0 103/ul Normal 0.0-0.3 [facility] Comment on above: Performed By: #### C BC #### [facility] [address] [place] [address] Dr. Mason Astudillo BAND % 0 % Normal 0-5 [facility] Comment on above: Performed By: #### C BC #### [facility] [address] [place] [address] Dr. Mason Astudillo BASOM # 0.06 103/ul Normal 0.00-0.10 [facility] Comment on above: Performed By: #### C BC #### [facility] [address] [place] [address] Dr. Mason Astudillo BASOM % 1.0 % Normal 0.2-2.0 [facility] Comment on above: Performed By: #### C BC #### [facility] [address] [place] [address] Dr. Mason Astudillo BLAST # Normal [facility] Comment on above: Performed By: #### C BC #### [facility] [address] [place] [address] Dr. Mason Astudillo BLAST % Normal [facility] Comment on above: Performed By: #### C BC #### [facility] [address] [place] [address] Dr. Mason Astudillo CORRECTED WBC Normal 4.0-11.0 [facility] Comment on above: Performed By: #### C BC #### [facility] [address] [place] [address] Dr. Mason Astudillo EOS # 0.17 103/ul Normal 0.00-0.70 [facility] Comment on above: Performed By: #### C BC #### [facility] [address] [place] [address] Dr. Mason Astudillo EOS% 3.0 % Normal 0.9-7.0 [facility] Comment on above: Performed By: #### C BC #### [facility] [address] [place] [address] Dr. Mason Astudillo HCT 27.4 % Critically low 42.0-54.0 [facility] Comment on above: Performed By: #### C BC #### [facility] [address] [place] [address] Dr. Mason Astudillo HGB 8.6 g/dl Critically low 14.0-18.0 [facility] Comment on above: Performed By: #### C BC #### [facility] [address] [place] [address] Dr. Mason Astudillo LYMPHM # 0.56 103/ul Critically low 1.20-3.80 [facility] Comment on above: Performed By: #### C BC #### [facility] [address] [place] [address] Dr. Mason Astudillo LYMPHM% 10.0 % Critically low 20.5-60.0 [facility] Comment on above: Performed By: #### C BC #### [facility] [address] [place] [address] Dr. Mason Astudillo MCH 27.7 pg Normal 25.9-34.0 [facility] Comment on above: Performed By: #### C BC #### [facility] [address] [place] [address] Dr. Mason Astudillo MCHC 31.4 g/dl Normal 29.9-35.2 [facility] Comment on above: Performed By: #### C BC #### [facility] [address] [place] [address] Dr. Mason Astudillo MCV 88.1 fL Normal 80.0-94.0 [facility] Comment on above: Performed By: #### C BC #### [facility] [address] [place] [address] Dr. Mason Astudillo METAMYELOCYTE # Normal [facility] Comment on above: Performed By: #### C BC #### [facility] [address] [place] [address] Dr. Mason Astudillo METAMYELOCYTE % Normal [facility] Comment on above: Performed By: #### C BC #### [facility] [address] [place] [address] Dr. Mason Astudillo MONOM# 0.34 103/ul Normal 0.30-0.80 [facility] Comment on above: Performed By: #### C BC #### [facility] [address] [place] [address] Dr. Mason Astudillo MONOM% 6.0 % Normal 1.7-12.0 [facility] Comment on above: Performed By: #### C BC #### [facility] [address] [place] [address] Dr. Mason Astudillo MPV 10.5 fL Normal 9.5-13.5 [facility] Comment on above: Performed By: #### C BC #### [facility] [address] [place] [address] Dr. Mason Astudillo MYELOCYTE # Normal [facility] Comment on above: Performed By: #### C BC #### [facility] [address] [place] [address] Dr. Mason Astudillo MYELOCYTE % Normal [facility] Comment on above: Performed By: #### C BC #### [facility] [address] [place] [address] Dr. Mason Astudillo NRBC Normal [facility] Comment on above: Performed By: #### C BC #### [facility] [address] [place] [address] Dr. Mason Astudillo OVALOCYTES 1+ Normal [facility] Comment on above: Performed By: #### C BC #### [facility] [address] [place] [address] Dr. Mason Astudillo PLT 124 103/ul Critically low 150-450 [facility] Comment on above: Performed By: #### C BC #### [facility] [address] [place] [address] Dr. Mason Astudillo RBC 3.11 106/ul Critically low 4.70-6.10 [facility] Comment on above: Performed By: #### C BC #### [facility] [address] [place] [address] Dr. Mason Astudillo RDW 15.9 % Critically high 11.0-15.0 [facility] Comment on above: Performed By: #### C BC #### [facility] [address] [address] [address] Mason Astudillo SEG # 4.48 103/ul Normal 1.40-6.50 [facility] Comment on above: Performed By: #### C BC #### [facility] [address] [place] [address] Dr. Mason Astudillo SEG % 80.0 % Critically high 43.0-75.0 [facility] Comment on above: Performed By: #### C BC #### [facility] [address] [place] [address] Dr. Mason Astudillo WBC 5.6 103/ul Normal 4.0-11.0 [facility] Comment on above: Performed By: #### C BC #### [facility] [address] [place] [address] Dr. Mason Astudillo POINT OF CARE GLUCOSEon Glucose [Mass/Vol] 260 mg/dL Critically high 74-106 [facility] Comment on above: Performed By: #### P OCGLUC #### [facility] [address] [place] [address] Dr. Mason Astudillo Glucose [Mass/Vol] 165 mg/dL Critically high 74-106 [facility] Comment on above: Performed By: #### A 1C #### [facility] [address] [place] [address] Dr. Mason Astudillo Glucose [Mass/Vol] 147 mg/dL Critically high 74-106 [facility] Comment on above: Performed By: #### C BC #### [facility] [address] [place] [address] Dr. Mason Astudillo PROF CHEM 8 (BAS METB)on Anion gap [Moles/Vol] 11.0 mmol/L Normal [facility] Comment on above: Performed By: #### U A #### [facility] [address] [address] [address] Mason Astudillo Calcium [Mass/Vol] 8.0 mg/dL Critically low 8.5-10.1 [facility] Comment on above: Performed By: #### U A #### [facility] [address] [address] [address] Mason Astudillo Chloride [Moles/Vol] 106 mmol/L Normal 98-107 [facility] Comment on above: Performed By: #### U A #### [facility] [address] [place] [address] Dr. Mason Astudillo CO2 [Moles/Vol] 26.7 mmol/L Normal 21.0-32.0 [facility] Comment on above: Performed By: #### U A #### [facility] [address] [place] [address] Dr. Mason Astudillo Creatinine [Mass/Vol] 1.22 mg/dL Normal 0.70-1.30 [facility] Comment on above: Performed By: #### U A #### [facility] [address] [place] [address] Dr. Mason Astudillo EGFR-AF [place] >60 Normal >=60 [facility] Comment on above: Performed By: #### U A #### [facility] [address] [place] [address] Dr. Mason Astudillo EGFR-NON AF [place] 56 mL/min/1.73m2 Critically low >=60 [facility] Comment on above: Performed By: #### U A #### [facility] [address] [place] [address] Dr. Mason Astudillo Glucose [Mass/Vol] 147 mg/dL Critically high 74-106 T [facility] Comment on above: Performed By: #### U A #### [facility] [address] [place] [address] Dr. Mason Astudillo Potassium [Moles/Vol] 3.7 mmol/L Normal 3.5-5.1 [facility] Comment on above: Performed By: #### U A #### [facility] [address] [place] [address] Dr. Mason Astudillo Sodium [Moles/Vol] 140 mmol/L Normal 136-145 [facility] Comment on above: Performed By: #### U A #### [facility] [address] [place] [address] Dr. Mason Astudillo Urea nitrogen [Mass/Vol] 17.0 mg/dL Normal 7.0-18.0 [facility] Comment on above: Performed By: #### U A #### [facility] [address] [place] [address] Dr. Mason Astudillo Urea nitrogen/Creatinine [Mass ratio] 13.9 mg/mg Normal [facility] Comment on above: Performed By: #### U A #### [facility] [address] [place] [address] Dr. Mason Astudillo CBC AUTO DIFFon 02-04-2022 BASO # 0.0 103/ul Normal 0.0-0.1 [facility] Comment on above: Performed By: #### C BC #### [facility] [address] [place] [address] Dr. Mason Astudillo Basophils/100 WBC (Bld) 0.2 % Normal 0.2-2.0 [facility] Comment on above: Performed By: #### C BC #### [facility] [address] [place] [address] Dr. Mason Astudillo EO # 0.2 103/ul Normal 0.0-0.7 [facility] Comment on above: Performed By: #### C BC #### [facility] [address] [place] [address] Dr. Mason Astudillo Eosinophils/100 WBC (Bld) 3.4 % Normal 0.9-7.0 [facility] Comment on above: Performed By: #### C BC #### [facility] [address] [place] [address] Dr. Mason Astudillo Erythrocyte distribution width (RBC) [Ratio] 15.6 % Critically high 11.0-15.0 [facility] Comment on above: Performed By: #### C BC #### [facility] [address] [place] [address] Dr. Mason Astudillo Hematocrit (Bld) [Volume fraction] 26.1 % Critically low 42.0-54.0 [facility] Comment on above: Performed By: #### C BC #### [facility] [address] [place] [address] Dr. Mason Astudillo Hemoglobin (Bld) [Mass/Vol] 8.2 g/dL Critically low 14.0-18.0 [facility] Comment on above: Performed By: #### C BC #### [facility] [address] [place] [address] Dr. Mason Astudillo IG # 0.06 10e3/ul Critically high 0.00-0.03 [facility] Comment on above: Performed By: #### C BC #### [facility] [address] [place] [address] Dr. Mason Astudillo IG % 1.4 % Critically high 0.0-0.5 [facility] Comment on above: Performed By: #### C BC #### [facility] [address] [place] [address] Dr. Mason Astudillo LYMPH # 0.6 103/ul Critically low 1.2-3.8 [facility] Comment on above: Performed By: #### C BC #### [facility] [address] [place] [address] Dr. Mason Astudillo Lymphocytes/100 WBC (Bld) 14.3 % Critically low 20.5-60.0 [facility] Comment on above: Performed By: #### C BC #### [facility] [address] [place] [address] Dr. Mason Astudillo MANUAL DIFF REQ NO Normal [facility] Comment on above: Performed By: #### C BC #### [facility] [address] [place] [address] Dr. Mason Astudillo MCH (RBC) [Entitic mass] 27.4 pg Normal 25.9-34.0 [facility] Comment on above: Performed By: #### C BC #### [facility] [address] [address] [address] Mason Astudillo MCHC (RBC) [Mass/Vol] 31.4 g/dL Normal 29.9-35.2 [facility] Comment on above: Performed By: #### C BC #### [facility] [address] [address] [address] Mason Astudillo MCV (RBC) [Entitic vol] 87.3 fL Normal 80.0-94.0 [facility] Comment on above: Performed By: #### C BC #### [facility] [address] [place] [address] Dr. Mason Astudillo MONO # 0.5 103/ul Normal 0.3-0.8 [facility] Comment on above: Performed By: #### C BC #### [facility] [address] [place] [address] Dr. aMson Astudillo Monocytes/100 WBC (Bld) 10.4 % Normal 1.7-12.0 [facility] Comment on above: Performed By: #### C BC #### [facility] [address] [place] [address] Dr. Mason Astudillo NEUT # 3.1 103/ul Normal 1.4-6.5 [facility] Comment on above: Performed By: #### C BC #### [facility] [address] [place] [address] Dr. Mason Astudillo Neutrophils/100 WBC (Bld) 70.3 % Normal 43.0-75.0 [facility] Comment on above: Performed By: #### C BC #### [facility] [address] [address] [address] Mason Astudillo Platelet mean volume (Bld) [Entitic vol] 10.5 fL Normal 9.5-13.5 [facility] Comment on above: Performed By: #### C BC #### [facility] [address] [address] [address] Mason Astudillo PLT 105 103/ul Critically low 150-450 [facility] Comment on above: Performed By: #### C BC #### [facility] [address], [place] [address] Dr. Mason Astudillo RBC 2.99 106/ul Critically low 4.70-6.10 [facility] Comment on above: Performed By: #### C BC #### [facility] [address] [place], [place] [address] Dr. Mason Astudillo WBC 4.4 103/ul Normal 4.0-11.0 [facility] Comment on above: Performed By: #### C BC #### [facility] [address] [place], [place] [address] Dr. Mason Astudillo ECHOCARDIO M/2D COMPLETEon 0 02-04-2022 ECHOCARDIO M/2D COMPLETE Patient: BEN GUADALUPE Exam Date: 02/04/2022 : 1935 Gender:M Ordering : DR COLTON CASTELLON . Admission #: [id number] Family : SHAIKH Samantha ELLIOTT . Order #: [id number] CLICK HERE TO VIEW EXAM ECHOCARDIOGRAM REPORT [...] Cheney M.D. on 02/04/2022 at 13:39 Normal [facility] POINT OF CARE GLUCOSEon Glucose [Mass/Vol] 262 mg/dL Critically high 74-106 [facility] Comment on above: Performed By: #### C BC #### [facility] [address] [place] [address] Dr. Mason Astudillo Glucose [Mass/Vol] 167 mg/dL Critically high -106 [facility] Comment on above: Performed By: #### C BC #### [facility] [address] [address] [address] Mason Astudillo Glucose [Mass/Vol] 158 mg/dL Critically high -106 [facility] Comment on above: Performed By: #### P OCGLUC #### [facility] [address] [address] [address] Mason Astudillo PRBC LEUKOREDUCEDon 02-05-20 ABO and Rh group Nom (Bld) Cross Match Result Compatible Unit Blood Type A Neg Unit Number [id number] Status Information Transfused Product ID Red Blood Cells Product Code [id number] Cross Match Result Compatible Unit Blood Type A Neg Unit Number [id number] Status Information Transfused Product ID Red Blood Cells Product Code [id number] [facility] Comment on above: Performed By: #### P SAD #### [facility] [address] [place] [address] Dr. Mason Astudillo PROF CHEM 8 (BAS METB)on Anion gap [Moles/Vol] 11.5 mmol/L [facility] Comment on above: Performed By: #### C BC #### [facility] [address] [address] [address] Mason Astudillo Calcium [Mass/Vol] 7.4 mg/dL Critically low 8.5-10.1 [facility] Comment on above: Performed By: #### C BC #### [facility] [address] [address] [address] Mason Astudillo Chloride [Moles/Vol] 106 mmol/L Normal 98-107 [facility] Comment on above: Performed By: #### C BC #### [facility] [address] [address] [address] Mason Astudillo CO2 [Moles/Vol] 25.8 mmol/L Normal 21.0-32.0 [facility] Comment on above: Performed By: #### C BC #### [facility] [address] [address] [address] Mason Astudillo Creatinine [Mass/Vol] 1.07 mg/dL Normal 0.70-1.30 [facility] Comment on above: Performed By: #### C BC #### [facility] [address] [address] [address] Mason Astudillo EGFR-AF [place] >60 Normal >=60 [facility] Comment on above: Performed By: #### C BC #### [facility] [address] [address] [address] Mason Astudillo EGFR-NON AF [place] >60 Normal >=60 [facility] Comment on above: Performed By: #### C BC #### [facility] [address] [address] [address] Mason Astudillo Glucose [Mass/Vol] 165 mg/dL Critically high 74-106 T [facility] Comment on above: Performed By: #### C BC #### [facility] [address] [address] [address] Mason Astudillo Potassium [Moles/Vol] 3.3 mmol/L Critically low 3.5-5.1 [facility] Comment on above: Performed By: #### C BC #### [facility] [address] [place] [address] Dr. Mason Astudillo Sodium [Moles/Vol] 140 mmol/L Normal 136-145 [facility] Comment on above: Performed By: #### C BC #### [facility] [address] [place] [address] Dr. Mason Astudillo Urea nitrogen [Mass/Vol] 19.0 mg/dL Critically high 7.0-18.0 [facility] Comment on above: Performed By: #### C BC #### [facility] [address] [place] [address] Dr. Mason Astudillo Urea nitrogen/Creatinine [Mass ratio] 17.8 mg/mg Normal [facility] Comment on above: Performed By: #### C BC #### [facility] [address] [place] [address] Dr. Mason Astudillo ABO RH RETYPEon 02-03-2022 ABO and Rh group Nom (Bld) DONE Normal [facility] Comment on above: Performed By: #### P OCGLUC #### [facility] [address] [place] [address] Dr. Mason Astudillo CBC AUTO DIFFon 02-03-2022 Basophils/100 WBC (Bld) 0.5 % Normal 0.2-2.0 [facility] Comment on above: Performed By: #### U A #### [facility] [address] [place] [address] Dr. Mason Astudillo EO # 0.2 103/ul Normal 0.0-0.7 [facility] Comment on above: Performed By: #### U A #### [facility] [address] [place] [address] Dr. Mason Astudillo Eosinophils/100 WBC (Bld) 2.9 % Normal 0.9-7.0 [facility] Comment on above: Performed By: #### U A #### [facility] [address] [place] [address] Dr. Mason Astudillo Erythrocyte distribution width (RBC) [Ratio] 15.7 % Critically high 11.0-15.0 [facility] Comment on above: Performed By: #### U A #### [facility] [address] [address] [address] Mason Astudillo Hematocrit (Bld) [Volume fraction] 31.1 % Critically low 42.0-54.0 [facility] Comment on above: Performed By: #### U A #### [facility] [address] [address] [address] Mason Astudillo Hemoglobin (Bld) [Mass/Vol] 9.7 g/dL Critically low 14.0-18.0 [facility] Comment on above: Result Comment: rcvd . 2 units of packed red cells. Performed By: #### U A #### [facility] [address] [place] [address] Dr. Mason Astudillo IG # 0.05 10e3/ul Critically high 0.00-0.03 [facility] Comment on above: Performed By: #### U A #### [facility] [address] [place] [address] Dr. Mason Astudillo IG % 0.8 % Critically high 0.0-0.5 [facility] Comment on above: Performed By: #### U A #### [facility] [address] [place] [address] Dr. Mason Astudillo LYMPH # 1.1 103/ul Critically low 1.2-3.8 [facility] Comment on above: Performed By: #### U A #### [facility] [address] [place] [address] Dr. Mason Astudillo Lymphocytes/100 WBC (Bld) 19.3 % Critically low 20.5-60.0 [facility] Comment on above: Performed By: #### U A #### [facility] [address] [place] [address] Dr. Mason Astudillo MCH (RBC) [Entitic mass] 27.2 pg Normal 25.9-34.0 [facility] Comment on above: Performed By: #### U A #### [facility] [address] [place] [address] Dr. Mason Astudillo MCHC (RBC) [Mass/Vol] 31.2 g/dL Normal 29.9-35.2 [facility] Comment on above: Performed By: #### U A #### [facility] [address] [address] [address] Mason Astudillo MCV (RBC) [Entitic vol] 87.1 fL Normal 80.0-94.0 [facility] Comment on above: Performed By: #### U A #### [facility] [address] [address] [address] Mason Astudillo MONO # 0.6 103/ul Normal 0.3-0.8 [facility] Comment on above: Performed By: #### U A #### [facility] [address] [address] [address] Mason Astudillo Monocytes/100 WBC (Bld) 10.7 % Normal 1.7-12.0 [facility] Comment on above: Performed By: #### U A #### [facility] [address] [address] [address] Mason Astudillo NEUT # 3.9 103/ul Normal 1.4-6.5 [facility] Comment on above: Performed By: #### U A #### [facility] [address] [address] [address] Mason Astudillo Neutrophils/100 WBC (Bld) 65.8 % Normal 43.0-75.0 [facility] Comment on above: Performed By: #### U A #### [facility] [address] [address] [address] Mason Astudillo Platelet mean volume (Bld) [Entitic vol] 10.5 fL Normal 9.5-13.5 [facility] Comment on above: Performed By: #### U A #### [facility] [address] [address] [address] Mason Astudillo PLT 147 103/ul Critically low 150-450 [facility] Comment on above: Performed By: #### U A #### [facility] [address] [address] [address] Mason Astudillo RBC 3.57 106/ul Critically low 4.70-6.10 [facility] Comment on above: Performed By: #### U A #### [facility] [address] [address] [address] Mason Astudillo WBC 5.9 103/ul Normal 4.0-11.0 [facility] Comment on above: Performed By: #### U A #### [facility] [address] [address] [address] Mason Astudillo BASO # 0.0 103/ul Normal 0.0-0.1 [facility] Comment on above: Performed By: #### U A #### [facility] [address] [address] [address] Mason Astudillo Basophils/100 WBC (Bld) 0.3 % Normal 0.2-2.0 [facility] Comment on above: Performed By: #### U A #### [facility] [address] [place] [address] Dr. Mason Astudillo EO # 0.1 103/ul Normal 0.0-0.7 [facility] Comment on above: Performed By: #### U A #### [facility] [address] [place] [address] Dr. Mason Astudillo Eosinophils/100 WBC (Bld) 2.5 % Normal 0.9-7.0 [facility] Comment on above: Performed By: #### U A #### [facility] [address] [place] [address] Dr. Mason Astudillo Erythrocyte distribution width (RBC) [Ratio] 15.9 % Critically high 11.0-15.0 [facility] Comment on above: Performed By: #### U A #### [facility] [address] [place] [address] Dr. Mason Astudillo Hematocrit (Bld) [Volume fraction] 22.3 % Critically low 42.0-54.0 [facility] Comment on above: Result Comment: Test Repeated. Critical Value Verified Performed By: #### U A #### [facility] [address] [place] [address] Dr. Mason Astudillo Hemoglobin (Bld) [Mass/Vol] 6.7 g/dL Critically low 14.0-18.0 [facility] Comment on above: Result Comment: Test Repeated. Critical Value Verified Performed By: #### U A #### [facility] [address] [place] [address] Dr. Mason Astudillo IG # 0.02 10e3/ul Normal 0.00-0.03 [facility] Comment on above: Performed By: #### U A #### [facility] [address] [place] [address] Dr. Mason Astudillo IG % 0.5 % Normal 0.0-0.5 [facility] Comment on above: Performed By: #### U A #### [facility] [address] [place] [address] Dr. Mason Astudillo LYMPH # 0.7 103/ul Critically low 1.2-3.8 [facility] Comment on above: Performed By: #### U A #### [facility] [address] [place] [address] Dr. Mason Astudillo Lymphocytes/100 WBC (Bld) 19.5 % Critically low 20.5-60.0 [facility] Comment on above: Performed By: #### U A #### [facility] [address] [place] [address] Dr. Mason Astudillo MANUAL DIFF REQ NO Normal [facility] Comment on above: Performed By: #### U A #### [facility] [address] [place] [address] Dr. Mason Astudillo MCH (RBC) [Entitic mass] 25.8 pg Critically low 25.9-34.0 [facility] Comment on above: Performed By: #### U A #### [facility] [address] [place] [address] Dr. Mason Astudillo MCHC (RBC) [Mass/Vol] 30.0 g/dL Normal 29.9-35.2 [facility] Comment on above: Performed By: #### U A #### [facility] [address] [place] [address] Dr. Mason Astudillo MCV (RBC) [Entitic vol] 85.8 fL Normal 80.0-94.0 [facility] Comment on above: Performed By: #### U A #### [facility] [address] [address] [address] Mason Astudillo MONO # 0.4 103/ul Normal 0.3-0.8 [facility] Comment on above: Performed By: #### U A #### [facility] [address] [address] [address] Mason Astudillo Monocytes/100 WBC (Bld) 11.8 % Normal 1.7-12.0 [facility] Comment on above: Performed By: #### U A #### [facility] [address] [address] [address] Mason Astudillo NEUT # 2.4 103/ul Normal 1.4-6.5 [facility] Comment on above: Performed By: #### U A #### [facility] [address] [place] [address] Dr. Mason Astudillo Neutrophils/100 WBC (Bld) 65.4 % Normal 43.0-75.0 [facility] Comment on above: Performed By: #### U A #### [facility] [address] [place] [address] Dr. Mason Astudillo Platelet mean volume (Bld) [Entitic vol] 10.7 fL Normal 9.5-13.5 [facility] Comment on above: Performed By: #### U A #### [facility] [address] [address] [address] Mason Astudillo PLT 103 103/ul Critically low 150-450 [facility] Comment on above: Performed By: #### U A #### [facility] [address] [address] [address] Mason Astudillo RBC 2.60 106/ul Critically low 4.70-6.10 [facility] Comment on above: Performed By: #### U A #### [facility] [address] [address] [address] Mason Astudillo WBC 3.7 103/ul Critically low 4.0-11.0 [facility] Comment on above: Performed By: #### U A #### [facility] [address] [address] [address] Mason Astudillo IRON AND TIBCon 02-03-2022 % SATURATION 46.9 % Normal [facility] Comment on above: Performed By: #### U A #### [facility] [address] [address] [address] Mason Astudillo Iron [Mass/Vol] 150.0 ug/dL Normal 65.0-175.0 [facility] Comment on above: Performed By: #### U A #### [facility] [address] [address] [address] Mason Astudillo TIBC DIRECT 320.0 ug/dL Normal 250.0-450.0 [facility] Comment on above: Performed By: #### U A #### [facility] [address] [place] [address] Dr. Mason Astudillo POINT OF CARE GLUCOSEon 01-06 Glucose [Mass/Vol] 201 mg/dL Critically high 74-106 [facility] Comment on above: Performed By: #### U A #### [facility] [address] [address] [address] Mason Astudillo Glucose [Mass/Vol] 152 mg/dL Critically high 74-106 [facility] Comment on above: Performed By: #### P OCGLUC #### [facility] [address] [place] [address] Dr. Mason Astudillo Glucose [Mass/Vol] 242 mg/dL Critically high -106 [facility] Comment on above: Performed By: #### A 1C #### [facility] [address] [place] [address] Dr. Mason Astudillo PROF CHEM 8 (BAS METB)on Anion gap [Moles/Vol] 11.4 mmol/L Normal [facility] Comment on above: Performed By: #### B MP #### [facility] [address] [place] [address] Dr. Mason Astudillo Calcium [Mass/Vol] 7.5 mg/dL Critically low 8.5-10.1 [facility] Comment on above: Performed By: #### B MP #### [facility] [address] [address] [address] Mason Astudillo Chloride [Moles/Vol] 106 mmol/L Normal 98-107 [facility] Comment on above: Performed By: #### B MP #### [facility] [address] [address] [address] Mason Astudillo CO2 [Moles/Vol] 26.8 mmol/L Normal 21.0-32.0 [facility] Comment on above: Performed By: #### B MP #### [facility] [address] [address] [address] Mason Astudillo Creatinine [Mass/Vol] 1.26 mg/dL Normal 0.70-1.30 [facility] Comment on above: Performed By: #### B MP #### [facility] [address] [place] [address] Dr. Mason Astudillo EGFR-AF [place] >60 Normal >=60 [facility] Comment on above: Performed By: #### B MP #### [facility] [address] [address] [address] Mason Astudillo EGFR-NON AF [place] 54 mL/min/1.73m2 Critically low >=60 [facility] Comment on above: Performed By: #### B MP #### [facility] [address] [address] [address] Mason Astudillo Glucose [Mass/Vol] 160 mg/dL Critically high 74-106 T [facility] Comment on above: Performed By: #### B MP #### [facility] [address] [address] [address] Mason Astudillo Potassium [Moles/Vol] 3.2 mmol/L Critically low 3.5-5.1 [facility] Comment on above: Performed By: #### B MP #### [facility] [address] [place] [address] Dr. Mason Astudillo Sodium [Moles/Vol] 141 mmol/L Normal 136-145 [facility] Comment on above: Performed By: #### B MP #### [facility] [address] [place] [address] Dr. Mason Astudillo Urea nitrogen [Mass/Vol] 30.0 mg/dL Critically high 7.0-18.0 [facility] Comment on above: Performed By: #### B MP #### [facility] [address] [place] [address] Dr. Mason Astudillo Urea nitrogen/Creatinine [Mass ratio] 23.8 mg/mg Normal [facility] Comment on above: Performed By: #### B MP #### [facility] [address] [place] [address] Dr. Mason Astudillo TYPE AND SCREENon 02-03-2022 TYPE AND SCREEN Negative Normal [facility] Comment on above: Performed By: #### T NS #### [facility] [address] [place] [address] Dr. Mason Astudillo BNPon 02-02-2022 Natriuretic peptide B (Bld) [Mass/Vol] 154.0 pg/mL Normal <=1,800.0 [facility] Comment on above: Performed By: #### P SAD #### [facility] [address] [place] [address] Dr. Mason Astudillo CARDIAC ANJELICA ADMITon 022 CK [Catalytic activity/Vol] 256 U/L Normal 39-308 [facility] Comment on above: Performed By: #### P OCGLUC #### [facility] [address] [place] [address] Dr. Mason Astudillo CK.MB [Mass/Vol] 3.30 ng/mL Normal <=3.60 [facility] Comment on above: Performed By: #### P OCGLUC #### [facility] [address] [place] [address] Dr. Mason Astudillo HSTROP 19.1 pg/mL Normal 4.0-76.1 [facility] Comment on above: Result Comment: CUT- OFF POINTS HAVE BEEN ESTABLISHED BASED ON THE FOURTH UNIVERSAL DEFINITIONS OF MYOCARDIAL INFARCTION. THE UPPER REFERENCE LIMIT (URL) OF TROPONIN, DEFINED THE 99TH PERCENTILE OF cTnI DISTRIBUTION IN A REFERENCE POPULATION, HAS BEEN CONFIRMED THE DECISION THRESHOLD FOR WI DIAGNOSIS. Performed By: #### P OCGLUC #### [facility] [address] [address] [address] Mason Astudillo ABDELRAHMAN 304 ng/mL Critically high 16-96 [facility] Comment on above: Performed By: #### P OCGLUC #### [facility] [address] [place] [address] Dr. Mason Astudillo CBC AUTO DIFFon 02-02-2022 BASO # 0.0 103/ul Normal 0.0-0.1 [facility] Comment on above: Performed By: #### C BC #### [facility] [address] [place] [address] Dr. Mason Astudillo Basophils/100 WBC (Bld) 0.5 % Normal 0.2-2.0 [facility] Comment on above: Performed By: #### C BC #### [facility] [address] [place] [address] Dr. Mason Astudillo EO # 0.2 103/ul Normal 0.0-0.7 [facility] Comment on above: Performed By: #### C BC #### [facility] [address] [place] [address] Dr. Mason Astudillo Eosinophils/100 WBC (Bld) 2.4 % Normal 0.9-7.0 [facility] Comment on above: Performed By: #### C BC #### [facility] [address] [place] [address] Dr. Mason Astudillo Erythrocyte distribution width (RBC) [Ratio] 15.9 % Critically high 11.0-15.0 [facility] Comment on above: Performed By: #### C BC #### [facility] [address] [place] [address] Dr. Mason Astudillo Hematocrit (Bld) [Volume fraction] 27.9 % Critically low 42.0-54.0 [facility] Comment on above: Performed By: #### C BC #### [facility] [address] [place] [address] Dr. Mason Astudillo Hemoglobin (Bld) [Mass/Vol] 8.7 g/dL Critically low 14.0-18.0 [facility] Comment on above: Performed By: #### C BC #### [facility] [address] [place] [address] Dr. Mason Astudillo IG # 0.04 10e3/ul Critically high 0.00-0.03 [facility] Comment on above: Performed By: #### C BC #### [facility] [address] [place] [address] Dr. Mason Astudillo IG % 0.6 % Critically high 0.0-0.5 [facility] Comment on above: Performed By: #### C BC #### [facility] [address] [place] [address] Dr. Mason Astudillo LYMPH # 1.3 103/ul Normal 1.2-3.8 [facility] Comment on above: Performed By: #### C BC #### [facility] [address] [place] [address] Dr. Mason Astudillo Lymphocytes/100 WBC (Bld) 20.1 % Critically low 20.5-60.0 [facility] Comment on above: Performed By: #### C BC #### [facility] [address] [place] [address] Dr. Mason Astudillo MANUAL DIFF REQ NO Normal [facility] Comment on above: Performed By: #### C BC #### [facility] [address] [place] [address] Dr. Mason Astudillo MCH (RBC) [Entitic mass] 26.1 pg Normal 25.9-34.0 [facility] Comment on above: Performed By: #### C BC #### [facility] [address] [place] [address] Dr. Mason Astudillo MCHC (RBC) [Mass/Vol] 31.2 g/dL Normal 29.9-35.2 [facility] Comment on above: Performed By: #### C BC #### [facility] [address] [place] [address] Dr. Mason Astudillo MCV (RBC) [Entitic vol] 83.8 fL Normal 80.0-94.0 [facility] Comment on above: Performed By: #### C BC #### [facility] [address] [address] [address] Mason Astudillo MONO # 0.7 103/ul Normal 0.3-0.8 [facility] Comment on above: Performed By: #### C BC #### [facility] [address] [place] [address] Dr. Mason Astudillo Monocytes/100 WBC (Bld) 11.1 % Normal 1.7-12.0 [facility] Comment on above: Performed By: #### C BC #### [facility] [address] [place] [address] Dr. Mason Astudillo NEUT # 4.1 103/ul Normal 1.4-6.5 [facility] Comment on above: Performed By: #### C BC #### [facility] [address] [place] [address] Dr. Mason Astudillo Neutrophils/100 WBC (Bld) 65.3 % Normal 43.0-75.0 [facility] Comment on above: Performed By: #### C BC #### [facility] [address] [place] [address] Dr. Mason Astudillo Platelet mean volume (Bld) [Entitic vol] 10.3 fL Normal 9.5-13.5 [facility] Comment on above: Performed By: #### C BC #### [facility] [address] [place] [address] Dr. Mason Astudillo PLT 145 103/ul Critically low 150-450 [facility] Comment on above: Performed By: #### C BC #### [facility] [address] [place] [address] Dr. Mason Astudillo RBC 3.33 106/ul Critically low 4.70-6.10 [facility] Comment on above: Performed By: #### C BC #### [facility] [address] [place] [address] Dr. Mason Astudillo WBC 6.2 103/ul Normal 4.0-11.0 [facility] Comment on above: Performed By: #### C BC #### [facility] [address] [place] [address] Dr. Mason Astudillo Covid-19 PCR (CVDTBH)on 01-06 SARS-CoV-2 (COVID-19) RNA GARCÍA+probe Ql (Unsp spec) Not detected Normal NOT DETECTED [facility] Comment on above: Result Comment: When [...] for this test is supported by the [place] of [employer] and Human Service's declaration that [...] used). Performed By: #### A 1C #### [facility] [address] [place] [address] Dr. Mason Astudillo FREE T3on 02-02-2022 FREE T3 2.16 pg/mlL Critically low 2.18-3.98 [facility] Comment on above: Performed By: #### P SAD #### [facility] [address] [place] [address] Dr. Mason Astudillo FREE T4on 02-02-2022 Free T4 [Mass/Vol] 1.09 ng/dL Normal 0.76-1.46 [facility] Comment on above: Performed By: #### F T4 #### [facility] [address] [place] [address] Dr. Mason Astudillo GLYCOHEMOGLOBIN A1Con 2021 ADA RECOMMENDATION SEE BELOW Normal [facility] Comment on above: Result Comment: ADA RECOMMENDED LIMIT 4.0 - 6.0 ADA THERAPEUTIC TARGET < 7.0 ACTION SUGGESTED > 7.0 Performed By: #### A 1C #### [facility] [address] [place] [address] Dr. Mason Astudillo Glucose [Mass/Vol] 160 mg/dL Normal [facility] Comment on above: Performed By: #### A 1C #### [facility] [address] [place] [address] Dr. Mason Astudillo HbA1c (Bld) [Mass fraction] 7.2 % Critically high 4.5-6.2 [facility] Comment on above: Performed By: #### A 1C #### [facility] [address] [place] [address] Dr. Mason Astudillo MAGNESIUMon 02-02-2022 Magnesium [Mass/Vol] 2.1 mg/dL Normal 1.8-2.4 [facility] Comment on above: Performed By: #### P SAD #### [facility] [address] [place] [address] Dr. Mason Astudillo POINT OF CARE GLUCOSEon 01-06-2021 Glucose [Mass/Vol] 226 mg/dL Critically high 74-106 [facility] Comment on above: Performed By: #### C BC #### [facility] [address] [place] [address] Dr. Mason Astudillo Glucose [Mass/Vol] 249 mg/dL Critically high 74-106 [facility] Comment on above: Performed By: #### C BC #### [facility] [address] [place] [address] Dr. Mason Astudillo Glucose [Mass/Vol] 195 mg/dL Critically high 74-106 [facility] Comment on above: Performed By: #### P SAD #### [facility] [address] [place] [address] Dr. Mason Astudillo PROF CHEM 8 (BAS METB)on Anion gap [Moles/Vol] 12.6 mmol/L Normal [facility] Comment on above: Performed By: #### P OCGLUC #### [facility] [address] [place] [address] Dr. Mason Astudillo Calcium [Mass/Vol] 8.1 mg/dL Critically low 8.5-10.1 Th [facility] Comment on above: Performed By: #### P OCGLUC #### [facility] [address] [address] [address] Mason Astudillo Chloride [Moles/Vol] 101 mmol/L Normal 98-107 [facility] Comment on above: Performed By: #### P OCGLUC #### [facility] [address] [place] [address] Dr. Mason Astudillo CO2 [Moles/Vol] 29.4 mmol/L Normal 21.0-32.0 [facility] Comment on above: Performed By: #### P OCGLUC #### [facility] [address] [place] [address] Dr. Mason Astudillo Creatinine [Mass/Vol] 1.68 mg/dL Critically high 0.70-1.30 [facility] Comment on above: Performed By: #### P OCGLUC #### [facility] [address] [place] [address] Dr. Mason Astudillo EGFR-AF [place] 47 mL/min/1.73m2 Critically low >=60 [facility] Comment on above: Result Comment: Prev iously reported as: (blank) On 02/02/2022 06:30 By [facility] Performed By: #### P OCGLUC #### [facility] [address] [place] [address] Dr. Mason Astudillo EGFR-NON AF [place] 39 mL/min/1.73m2 Critically low >=60 [facility] Comment on above: Result Comment: Prev iously reported as: (blank) On 02/02/2022 06:30 By [facility] Performed By: #### P OCGLUC #### [facility] [address] [place] [address] Dr. Mason Astudillo Glucose [Mass/Vol] 264 mg/dL Critically high 74-106 [facility] Comment on above: Performed By: #### P OCGLUC #### [facility] [address] [place] [address] Dr. Mason Astudillo Potassium [Moles/Vol] 3.0 mmol/L Critically low 3.5-5.1 [facility] Comment on above: Performed By: #### P OCGLUC #### [facility] [address] [address] [address] Mason Astudillo Sodium [Moles/Vol] 140 mmol/L Normal 136-145 [facility] Comment on above: Performed By: #### P OCGLUC #### [facility] [address] [place] [address] Dr. Mason Astudillo Urea nitrogen [Mass/Vol] 45.0 mg/dL Critically high 7.0-18.0 [facility] Comment on above: Performed By: #### P OCGLUC #### [facility] [address] [place] [address] Dr. Mason Astudillo Urea nitrogen/Creatinine [Mass ratio] 26.8 mg/mg Normal [facility] Comment on above: Performed By: #### P OCGLUC #### [facility] [address] [place] [address] Dr. Mason Astudillo TROPONIN, HIGH SENSITIVITYon 02-02-2022 HSTROP 81.7 pg/mL Critically high 4.0-76.1 [facility] Comment on above: Result Comment: CUT- OFF POINTS HAVE BEEN ESTABLISHED BASED ON THE FOURTH UNIVERSAL DEFINITIONS OF MYOCARDIAL INFARCTION. THE UPPER REFERENCE LIMIT (URL) OF TROPONIN, DEFINED THE 99TH PERCENTILE OF cTnI DISTRIBUTION IN A REFERENCE POPULATION, HAS BEEN CONFIRMED THE DECISION THRESHOLD FOR WI DIAGNOSIS. repeated Performed By: #### B MP #### [facility] [address] [place] [address] Dr. Mason Astudillo TSHon 02-02-2022 TSH 1.200 uIU/mL Normal 0.358-3.740 [facility] Comment on above: Performed By: #### C BC #### [facility] [address] [place] [address] Dr. Mason Astudillo XR CHEST 1 Von [...] CARMINA LOVE Date: 2022-02-02 06:45 Normal [facility] RENAL FUNCTION PANELon 01-11 Albumin [Mass/Vol] 3.7 g/dL Normal 3.4-5.0 [facility] Comment on above: Performed By: #### P OCGLUC #### [facility] [address] [address] [address] Mason Astudillo Calcium [Mass/Vol] 8.6 mg/dL Normal 8.5-10.1 [facility] Comment on above: Performed By: #### P OCGLUC #### [facility] [address] [address] [address] Mason Astudillo Chloride [Moles/Vol] 104 mmol/L Normal 98-107 [facility] Comment on above: Performed By: #### P OCGLUC #### [facility] [address] [address] [address] Mason Astudillo CO2 [Moles/Vol] 28.0 mmol/L Normal 21.0-32.0 [facility] Comment on above: Performed By: #### P OCGLUC #### [facility] [address] [address] [address] Mason Astudillo Creatinine [Mass/Vol] 1.25 mg/dL Normal 0.70-1.30 [facility] Comment on above: Performed By: #### P OCGLUC #### [facility] [address] [address] [address] Mason Astudillo EGFR-AF [place] >60 Normal >=60 [facility] Comment on above: Performed By: #### P OCGLUC #### [facility] [address] [address] [address] Mason Astudillo EGFR-NON AF [place] 55 mL/min/1.73m2 Critically low >=60 [facility] Comment on above: Performed By: #### P OCGLUC #### [facility] [address] [address] [address] Mason Astudillo Glucose [Mass/Vol] 143 mg/dL Critically high 74-106 [facility] Comment on above: Performed By: #### P OCGLUC #### [facility] [address] [address] [address] Mason Astudillo Phosphate [Mass/Vol] 2.9 mg/dL Normal 2.6-4.7 [facility] Comment on above: Performed By: #### P OCGLUC #### [facility] [address] [place] [address] Dr. Mason Astudillo Potassium [Moles/Vol] 3.6 mmol/L Normal 3.5-5.1 [facility] Comment on above: Performed By: #### P OCGLUC #### [facility] [address] [address] [address] Mason Astudillo Sodium [Moles/Vol] 142 mmol/L Normal 136-145 [facility] Comment on above: Performed By: #### P OCGLUC #### [facility] [address] [place] [address] Dr. Mason Astudillo Urea nitrogen [Mass/Vol] 19.0 mg/dL Critically high 7.0-18.0 [facility] Comment on above: Performed By: #### P OCGLUC #### [facility] [address] [place] [address] Dr. Mason Astudillo UA RANDOMon 01-11-2022 Bilirubin Ql (U) Negative Normal NEGATIVE [facility] Comment on above: Performed By: #### U A #### [facility] [address] [place] [address] Dr. Mason Astudillo Clarity (U) CLEAR Normal CLEAR [facility] Comment on above: Performed By: #### U A #### [facility] [address] [place] [address] Dr. Mason Astudillo Color (U) LT. YELLOW Normal YELLOW [facility] Comment on above: Performed By: #### U A #### [facility] [address] [place] [address] Dr. Mason Astudillo Glucose Ql (U) >1000 Abnormal NEGATIVE [facility] Comment on above: Performed By: #### U A #### [facility] [address] [place] [address] Dr. Mason Astudillo Hemoglobin Ql (U) Negative Normal NEGATIVE [facility] Comment on above: Performed By: #### U A #### [facility] [address] [place] [address] Dr. Mason Astudillo Ketones Ql (U) Negative Normal NEGATIVE [facility] Comment on above: Performed By: #### U A #### [facility] [address] [place] [address] Dr. Mason Astudillo LEUKOCYTES Negative Normal NEGATIVE [facility] Comment on above: Performed By: #### U A #### [facility] [address] [place] [address] Dr. Mason Astudillo Nitrite Ql (U) Negative Normal NEGATIVE [facility] Comment on above: Performed By: #### U A #### [facility] [address] [place] [address] Dr. Mason Astudillo pH (U) 6.5 [pH] Normal 5-9 [facility] Comment on above: Performed By: #### U A #### [facility] [address] [place] [address] Dr. Mason Astudillo SPEC GRAVITY 1.010 Normal 1.005-<=1.0 25 [facility] Comment on above: Performed By: #### U A #### [facility] [address] [place] [address] Dr. Mason Astudillo UA PROTEIN Negative Normal NEGATIVE/ TRACE [facility] Comment on above: Performed By: #### U A #### [facility] [address] [place] [address] Dr. Mason Astudillo Urobilinogen Qn (U) 0.2 {Lewis'U}/dL Normal 0.2 - 1. 0 [facility] Comment on above: Performed By: #### U A #### [facility] [address] [place] [address] Dr. Mason Astudillo URINE T PROTEIN CREAT RATIOo n 01-11-2022 Protein (U) [Mass/Vol] 23.7 mg/dL Critically high <=12.0 [facility] Comment on above: Performed By: #### A 1C #### [facility] [address] [place] [address] Dr. Mason Astudillo UR PROT CREAT RAT 0.20 Normal [facility] Comment on above: Performed By: #### A 1C #### [facility] [address] [address] [address] Mason Astudillo URINE CREAT 115.99 mg/dL Normal 20.00-300.0 0 [facility] Comment on above: Performed By: #### A 1C #### [facility] [address] [address] [address] Mason Astudillo US KIDNEYSon 01-09-2022 US KIDNEYS EXAMINATION: [facility] HISTORY: Hypertensive heart disease without congestive heart [...] BRISA SALAS Date: 2022-01-09 17:44 Normal [facility] FOLATE ([facility])on 2 Folate 11.0 ng/mL Normal >3.0 [facility] Comment on above: Result Comment: A se rum folate concentration of less than 3.1 ng/mL is considered to represent clinical deficiency. Performed By: #### P SAD #### [facility] [address] [address] [address] Mason Astudillo TRANSFERRINon 12-20-2021 Transferrin [Mass/Vol] 316 mg/dL Critically high 149-313 [facility] Comment on above: Performed By: #### A 1C #### [facility] [address] [place] [address] Dr. Mason Astudillo CBC AUTO DIFFon 12-18-2021 BASO # 0.0 103/ul Normal 0.0-0.1 [facility] Comment on above: Performed By: #### U A #### [facility] [address] [place] [address] Dr. Mason Astudillo Basophils/100 WBC (Bld) 0.3 % Normal 0.2-2.0 [facility] Comment on above: Performed By: #### U A #### [facility] [address] [place] [address] Dr. Mason Astudillo EO # 0.1 103/ul Normal 0.0-0.7 [facility] Comment on above: Performed By: #### U A #### [facility] [address] [place] [address] Dr. Mason Astudillo Eosinophils/100 WBC (Bld) 2.0 % Normal 0.9-7.0 [facility] Comment on above: Performed By: #### U A #### [facility] [address] [place] [address] Dr. Mason Astudillo Erythrocyte distribution width (RBC) [Ratio] 14.6 % Normal 11.0-15.0 [facility] Comment on above: Performed By: #### U A #### [facility] [address] [place] [address] Dr. Mason Astudillo Hematocrit (Bld) [Volume fraction] 35.6 % Critically low 42.0-54.0 [facility] Comment on above: Performed By: #### U A #### [facility] [address] [place] [address] Dr. Mason Astudillo Hemoglobin (Bld) [Mass/Vol] 10.7 g/dL Critically low 14.0-18.0 [facility] Comment on above: Performed By: #### U A #### [facility] [address] [place] [address] Dr. Mason Astudillo IG # 0.03 10e3/ul Normal 0.00-0.03 [facility] Comment on above: Performed By: #### U A #### [facility] [address] [place] [address] Dr. Mason Astudillo IG % 0.5 % Normal 0.0-0.5 [facility] Comment on above: Performed By: #### U A #### [facility] [address] [place] [address] Dr. Mason Astudillo LYMPH # 1.0 103/ul Critically low 1.2-3.8 [facility] Comment on above: Performed By: #### U A #### [facility] [address] [place] [address] Dr. Mason Astudillo Lymphocytes/100 WBC (Bld) 15.5 % Critically low 20.5-60.0 [facility] Comment on above: Performed By: #### U A #### [facility] [address] [place] [address] Dr. Mason Astudillo MANUAL DIFF REQ NO Normal [facility] Comment on above: Performed By: #### U A #### [facility] [address] [place] [address] Dr. Mason Astudillo MCH (RBC) [Entitic mass] 27.4 pg Normal 25.9-34.0 [facility] Comment on above: Performed By: #### U A #### [facility] [address] [place] [address] Dr. Mason Astudillo MCHC (RBC) [Mass/Vol] 30.1 g/dL Normal 29.9-35.2 [facility] Comment on above: Performed By: #### U A #### [facility] [address] [place] [address] Dr. Mason Astudillo MCV (RBC) [Entitic vol] 91.0 fL Normal 80.0-94.0 [facility] Comment on above: Performed By: #### U A #### [facility] [address] [place] [address] Dr. Mason Astudillo MONO # 0.5 103/ul Normal 0.3-0.8 [facility] Comment on above: Performed By: #### U A #### [facility] [address] [address] [address] Mason Astudillo Monocytes/100 WBC (Bld) 8.1 % Normal 1.7-12.0 [facility] Comment on above: Performed By: #### U A #### [facility] [address] [address] [address] Mason Astudillo NEUT # 4.5 103/ul Normal 1.4-6.5 [facility] Comment on above: Performed By: #### U A #### [facility] [address] [address] [address] Mason Astudillo Neutrophils/100 WBC (Bld) 73.6 % Normal 43.0-75.0 [facility] Comment on above: Performed By: #### U A #### [facility] [address] [place] [address] Dr. Mason Astudillo Platelet mean volume (Bld) [Entitic vol] 10.1 fL Normal 9.5-13.5 [facility] Comment on above: Performed By: #### U A #### [facility] [address] [place] [address] Dr. Mason Astudillo PLT 138 103/ul Critically low 150-450 [facility] Comment on above: Performed By: #### U A #### [facility] [address] [place] [address] Dr. Mason Astudillo RBC 3.91 106/ul Critically low 4.70-6.10 [facility] Comment on above: Performed By: #### U A #### [facility] [address] [place] [address] Dr. Mason Astudillo WBC 6.1 103/ul Normal 4.0-11.0 [facility] Comment on above: Performed By: #### U A #### [facility] [address] [place] [address] Dr. Mason Astudillo FERRITINon 12-18-2021 Ferritin [Mass/Vol] 16.0 ng/mL Critically low 26.0-388.0 [facility] Comment on above: Performed By: #### P OCGLUC #### [facility] [address] [address] [address] Mason Astudillo GLYCOHEMOGLOBIN A1Con 2021 ADA RECOMMENDATION SEE BELOW Normal [facility] Comment on above: Result Comment: ADA RECOMMENDED LIMIT 4.0 - 6.0 ADA THERAPEUTIC TARGET < 7.0 ACTION SUGGESTED > 7.0 Performed By: #### C BC #### [facility] [address] [address] [address] Mason Astudillo Glucose [Mass/Vol] 140 mg/dL Normal [facility] Comment on above: Performed By: #### C BC #### [facility] [address] [address] [address] Mason Astudillo HbA1c (Bld) [Mass fraction] 6.5 % Critically high 4.5-6.2 [facility] Comment on above: Performed By: #### C BC #### [facility] [address] [address] [address] Mason Astudillo IRON AND TIBCon 12-18-2021 % SATURATION 5.7 % Normal [facility] Comment on above: Performed By: #### P OCGLUC #### [facility] [address] [place] [address] Dr. Mason Astudillo Iron [Mass/Vol] 23.0 ug/dL Critically low 65.0-175.0 [facility] Comment on above: Performed By: #### P OCGLUC #### [facility] [address] [address] [address] Mason Astudillo TIBC DIRECT 413.0 ug/dL Normal 250.0-450.0 [facility] Comment on above: Performed By: #### P OCGLUC #### [facility] [address] [place] [address] Dr. Mason Astudillo PROF CHEM 8 (BAS METB)on Anion gap [Moles/Vol] 13.7 mmol/L Normal [facility] Comment on above: Performed By: #### P SAD #### [facility] [address] [place] [address] Dr. Mason Astudillo Calcium [Mass/Vol] 8.2 mg/dL Critically low 8.5-10.1 [facility] Comment on above: Performed By: #### P SAD #### [facility] [address] [address] [address] Mason Astudillo Chloride [Moles/Vol] 105 mmol/L Normal 98-107 [facility] Comment on above: Performed By: #### P SAD #### [facility] [address] [address] [address] Mason Astudillo CO2 [Moles/Vol] 27.1 mmol/L Normal 21.0-32.0 [facility] Comment on above: Performed By: #### P SAD #### [facility] [address] [place] [address] Dr. Mason Astudillo Creatinine [Mass/Vol] 1.32 mg/dL Critically high 0.70-1.30 [facility] Comment on above: Performed By: #### P SAD #### [facility] [address] [place] [address] Dr. Mason Astudillo EGFR-AF [place] >60 Normal >=60 [facility] Comment on above: Performed By: #### P SAD #### [facility] [address] [place] [address] Dr. Mason Astudillo EGFR-NON AF [place] 52 mL/min/1.73m2 Critically low >=60 [facility] Comment on above: Performed By: #### P SAD #### [facility] [address] [place] [address] Dr. Mason Astudillo Glucose [Mass/Vol] 121 mg/dL Critically high 74-106 T [facility] Comment on above: Performed By: #### P SAD #### [facility] [address] [place] [address] Dr. Mason Astudillo Potassium [Moles/Vol] 3.8 mmol/L Normal 3.5-5.1 [facility] Comment on above: Performed By: #### P SAD #### [facility] [address] [place] [address] Dr. Mason Astudillo Sodium [Moles/Vol] 142 mmol/L Normal 136-145 [facility] Comment on above: Performed By: #### P SAD #### [facility] [address] [place] [address] Dr. Mason Astudillo Urea nitrogen [Mass/Vol] 27.0 mg/dL Critically high 7.0-18.0 [facility] Comment on above: Performed By: #### P SAD #### [facility] [address] [place] [address] Dr. Mason Astudillo Urea nitrogen/Creatinine [Mass ratio] 20.5 mg/mg Normal [facility] Comment on above: Performed By: #### P SAD #### [facility] [address] [place] [address] Dr. Mason Astudillo VITAMIN B12on 12-18-2021 Cobalamin (Vitamin B12) [Mass/Vol] 423.0 pg/mL Normal 193.0-986.0 [facility] Comment on above: Performed By: #### P OCGLUC #### [facility] [address] [place] [address] Dr. Mason Astudillo CBC AUTO DIFFon 11-08-2021 BASO # 0.0 103/ul Normal 0.0-0.1 [facility] Comment on above: Performed By: #### U A #### [facility] [address] [place] [address] Dr. Mason Astudillo Basophils/100 WBC (Bld) 0.3 % Normal 0.2-2.0 [facility] Comment on above: Performed By: #### U A #### [facility] [address] [place] [address] Dr. Mason Astudillo EO # 0.2 103/ul Normal 0.0-0.7 [facility] Comment on above: Performed By: #### U A #### [facility] [address] [place] [address] Dr. Mason Astudillo Eosinophils/100 WBC (Bld) 2.6 % Normal 0.9-7.0 [facility] Comment on above: Performed By: #### U A #### [facility] [address] [place] [address] Dr. Mason Astudillo Erythrocyte distribution width (RBC) [Ratio] 15.1 % Critically high 11.0-15.0 [facility] Comment on above: Performed By: #### U A #### [facility] [address] [place] [address] Dr. Mason Astudillo Hematocrit (Bld) [Volume fraction] 36.2 % Critically low 42.0-54.0 [facility] Comment on above: Performed By: #### U A #### [facility] [address] [place] [address] Dr. Mason Astudillo Hemoglobin (Bld) [Mass/Vol] 11.7 g/dL Critically low 14.0-18.0 [facility] Comment on above: Performed By: #### U A #### [facility] [address] [place] [address] Dr. Mason Astudillo IG # 0.04 10e3/ul Critically high 0.00-0.03 [facility] Comment on above: Performed By: #### U A #### [facility] [address] [place] [address] Dr. Mason Astudillo IG % 0.7 % Critically high 0.0-0.5 [facility] Comment on above: Performed By: #### U A #### [facility] [address] [place] [address] Dr. Mason Astudillo LYMPH # 0.9 103/ul Critically low 1.2-3.8 [facility] Comment on above: Performed By: #### U A #### [facility] [address] [place] [address] Dr. Mason Astudillo Lymphocytes/100 WBC (Bld) 14.4 % Critically low 20.5-60.0 [facility] Comment on above: Performed By: #### U A #### [facility] [address] [place] [address] Dr. Mason Astudillo MANUAL DIFF REQ NO Normal [facility] Comment on above: Performed By: #### U A #### [facility] [address] [place] [address] Dr. Mason Astudillo MCH (RBC) [Entitic mass] 29.8 pg Normal 25.9-34.0 [facility] Comment on above: Performed By: #### U A #### [facility] [address] [place] [address] Dr. Mason Astudillo MCHC (RBC) [Mass/Vol] 32.3 g/dL Normal 29.9-35.2 [facility] Comment on above: Performed By: #### U A #### [facility] [address] [place] [address] Dr. Mason Astudillo MCV (RBC) [Entitic vol] 92.3 fL Normal 80.0-94.0 [facility] Comment on above: Performed By: #### U A #### [facility] [address] [place] [address] Dr. Mason Astudillo MONO # 0.5 103/ul Normal 0.3-0.8 [facility] Comment on above: Performed By: #### U A #### [facility] [address] [place] [address] Dr. Mason Astudillo Monocytes/100 WBC (Bld) 7.5 % Normal 1.7-12.0 [facility] Comment on above: Performed By: #### U A #### [facility] [address] [place] [address] Dr. Mason Astudillo NEUT # 4.5 103/ul Normal 1.4-6.5 [facility] Comment on above: Performed By: #### U A #### [facility] [address] [place] [address] Dr. Mason Astudillo Neutrophils/100 WBC (Bld) 74.5 % Normal 43.0-75.0 [facility] Comment on above: Performed By: #### U A #### [facility] [address] [place] [address] Dr. Mason Astudillo Platelet mean volume (Bld) [Entitic vol] 10.1 fL Normal 9.5-13.5 [facility] Comment on above: Performed By: #### U A #### [facility] [address] [place] [address] Dr. Mason Astudillo PLT 132 103/ul Critically low 150-450 [facility] Comment on above: Performed By: #### U A #### [facility] [address] [place] [address] Dr. Mason Astudillo RBC 3.92 106/ul Critically low 4.70-6.10 [facility] Comment on above: Performed By: #### U A #### [facility] [address] [place] [address] Dr. Mason Astudillo WBC 6.0 103/ul Normal 4.0-11.0 [facility] Comment on above: Performed By: #### U A #### [facility] [address] [place] [address] Dr. Mason Astudillo PROF CHEM 8 (BAS METB)on Anion gap [Moles/Vol] 8.9 mmol/L Normal [facility] Comment on above: Performed By: #### B MP #### [facility] [address] [place] [address] Dr. Mason Astudillo Calcium [Mass/Vol] 7.9 mg/dL Critically low 8.5-10.1 [facility] Comment on above: Performed By: #### B MP #### [facility] [address] [place] [address] Dr. Mason Astudillo Chloride [Moles/Vol] 101 mmol/L Normal 98-107 [facility] Comment on above: Performed By: #### B MP #### [facility] [address] [place] [address] Dr. Mason Astudillo CO2 [Moles/Vol] 28.3 mmol/L Normal 21.0-32.0 [facility] Comment on above: Performed By: #### B MP #### [facility] [address] [place] [address] Dr. Mason Astudillo Creatinine [Mass/Vol] 1.22 mg/dL Normal 0.70-1.30 [facility] Comment on above: Performed By: #### B MP #### [facility] [address] [place] [address] Dr. Mason Astudillo EGFR-AF [place] >60 Normal >=60 [facility] Comment on above: Performed By: #### B MP #### [facility] [address] [address] [address] Mason Astudillo EGFR-NON AF [place] 57 mL/min/1.73m2 Critically low >=60 [facility] Comment on above: Performed By: #### B MP #### [facility] [address] [address] [address] Mason Astudillo Glucose [Mass/Vol] 167 mg/dL Critically high 74-106 T [facility] Comment on above: Performed By: #### B MP #### [facility] [address] [address] [address] Mason Astudillo Potassium [Moles/Vol] 3.2 mmol/L Critically low 3.5-5.1 [facility] Comment on above: Performed By: #### B MP #### [facility] [address] [address] [address] Mason Astudillo Sodium [Moles/Vol] 135 mmol/L Critically low 136-145 Th [facility] Comment on above: Performed By: #### B MP #### [facility] [address] [address] [address] Mason Astudillo Urea nitrogen [Mass/Vol] 23.0 mg/dL Critically high 7.0-18.0 [facility] Comment on above: Performed By: #### B MP #### [facility] [address] [address] [address] Mason Astudillo Urea nitrogen/Creatinine [Mass ratio] 18.9 mg/mg Normal [facility] Comment on above: Performed By: #### B MP #### [facility] [id number] Mason Astudillo XR CHEST 2 Von [...] by: BRITTANIE CASILLAS Date: 2021-11-08 14:01 Normal [facility] Vital Signs Date Time Vital Sign Value Performing Clinician Facility 12-23-2022 13:13-0400 Blood Pressure Location Mekhidominique VERG[facility] 12-23-2022 13:13-0400 Diastolic blood pressure 68 mm[Hg] Mekhi VERGARA [facility] 12-23-2022 13:13-0400 Heart rate 70 /min Mekhi VERGARA [facility] 12-23-2022 13:13-0400 Systolic blood pressure 120 mm[Hg] Mekhi VERGARA [facility] 05-10-2022 10:43-0400 Body height 177.8 cm Pacc 6 Work Phone: [facility] 05-10-2022 10:43-0400 Body temperature 97.81 [degF] Pacc 6 Work Phone: [facility] 05-10-2022 10:43-0400 Body weight 86.18 kg Pacc 6 Work Phone: [facility] 05-10-2022 10:43-0400 Diastolic blood pressure 75 mm[Hg] Pacc 6 Work Phone: [facility] 05-10-2022 10:43-0400 Heart rate 86 /min Pacc 6 Work Phone: [facility] 05-10-2022 10:43-0400 SaO2% (BldA) [Mass fraction] 97 % Pacc 6 Work Phone: [facility] 05-10-2022 10:43-0400 Systolic blood pressure 124 mm[Hg] Pacc 6 Work Phone: [facility] 04-22-2022 15:42-0400 Blood Pressure Location Mekhi VERGARA [facility] 04-22-2022 15:42-0400 Diastolic blood pressure 64 mm[Hg] Mekhi VERGARA [facility] 04-22-2022 15:42-0400 Heart rate 76 /min Mekhi VERGARA [facility] 04-22-2022 15:42-0400 Respiratory rate 60 /min Mekhi VERGARA [facility] 04-22-2022 15:42-0400 Systolic blood pressure 117 mm[Hg] Mekhi VERGARA [facility] 04-17-2022 12:55-0400 Body height 177.8 cm Tristin Wilcox MD, PhD Work Phone: [facility] 04-17-2022 12:55-0400 Body temperature 98.4 [degF] Tristin Wilcox MD, PhD Work Phone: [facility] 04-17-2022 12:55-0400 Body weight 86.18 kg Tristin Wilcox MD, PhD Work Phone: [facility] 04-17-2022 12:55-0400 Diastolic blood pressure 74 mm[Hg] Tristin Wilcox MD, PhD Work Phone: [facility] 04-17-2022 12:55-0400 Heart rate 70 /min Tristin Wilcox MD, PhD Work Phone: [facility] 04-17-2022 12:55-0400 Respiratory rate 16 /min Tristin Wilcox MD, PhD Work Phone: [facility] 04-17-2022 12:55-0400 SaO2% (BldA) [Mass fraction] 99 % Tristin Wilcox MD, PhD Work Phone: [facility] 04-17-2022 12:55-0400 Systolic blood pressure 127 mm[Hg] Tristin Wilcox MD, PhD Work Phone: [facility] 10-16-2021 14:39-0400 Blood Pressure Location Yenni NILL [facility] 10-16-2021 14:39-0400 Diastolic blood pressure 76 mm[Hg] Yenni NILL [facility] 10-16-2021 14:39-0400 Heart rate 68 /min Yenni NILL [facility] 10-16-2021 14:39-0400 Respiratory rate 16 /min Yenni NILL [facility] 10-16-2021 14:39-0400 Systolic blood pressure 106 mm[Hg] Yenni NILL [facility] Encounters Encounter Date Encounter Type Care Provider Facility Start: 10-23-2023 ambulatory Armani Grimes lity:Javy BUI Start: 08-28-2023 End: 08-28-2023 ambulatory [facility] Start: 08-21-2023 Orders Only Shaikh Lexi WORKMAN Work Phone: [facility] Comment on above: 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; Chronic heart failure with preserved ejection fraction (CMS/HCC); Chronic bilateral low back pain with bilateral sciatica Start: 08-19-2023 End: 08-19-2023 ambulatory Mekhi VERGARA [place] Start: 08-19-2023 End: 08-19-2023 Patient encounter procedure Mekhi VERGARA [facility] Start: 08-19-2023 End: 08-19-2023 ambulatory Mekhi Althea VERGARA [place] Start: 08-19-2023 End: 08-19-2023 Patient encounter procedure Mekhi VERGARA [facility] Start: 07-28-2023 End: 07-28-2023 ambulatory SHAIKH LEXI Not Available Start: 07-03-2023 End: 07-03-2023 ambulatory DE LA OEILEEN SARKARD Not Available Start: 07-03-2023 Patient encounter procedure Shaikh Lexi WORKMAN Work Phone: [facility] Start: 06-20-2023 End: 06-20-2023 ambulatory Mekhi Althea URSULA Facility:[facility] [place] Start: 06-18-2023 End: 06-18-2023 ambulatory DE LA O LEXI Not Available Start: 06-10-2023 ambulatory Mekhi VERGARA Facility :[facility] Start: 06-09-2023 End: 06-10-2023 ambulatory Mallorie [...] Facility:[facility] Start: 03-07-2023 End: 03-07-2023 ambulatory ANDREA [facility] Start: 02-03-2023 End: 02-04-2023 ambulatory Mallorie Joy MD Facility:[facility] Start: 12-23-2022 End: 12-23-2022 Patient encounter procedure Mekhi VERGARA [facility] Start: 11-21-2022 ambulatory NARENDRANATH LAKSHMIPATHY . Facility:[facility] Start: 10-31-2022 ambulatory NARENDRANATH LAKSHMIPATHY . Facility:[facility] Start: 10-29-2022 End: 10-29-2022 ambulatory NARENDRANATH LAKSHMIPATHY . Facility:[facility] Start: 10-24-2022 End: 10-25-2022 ambulatory NARENDRANATH LAKSHMIPATHY . Facility:[facility] Start: 10-18-2022 End: 10-18-2022 ambulatory [facility] Start: 10-11-2022 End: 10-12-2022 ambulatory [facility] Start: 09-11-2022 End: 09-11-2022 ambulatory [facility] Start: 08-06-2022 End: 08-06-2022 Patient encounter procedure Mekhi VERGARA [facility] Start: 07-30-2022 End: 07-31-[address] PAULINE WINSTON . 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 Start: 05-10-2022 End: 05-11-2022 ambulatory TRISTIN WILCOX Facility:[facility] Start: 05-10-2022 Encounter for other preprocedural examination TRISTIN WILCOX [facility] Start: 05-10-2022 End: 05-10-2022 ambulatory Pacc Main 6 Work Phone: Pre Anesthesia Comment on above: Pre-op evaluation (P rimary Dx); Type 2 diabetes mellitus without complication, without long-term current use of insulin ([facility]); Radiculopathy, cervical region; Dementia in other diseases classified elsewhere, unspecified severity, without behavioral disturbance, psychotic disturbance, mood disturbance, and anxiety ([facility]); Intracranial hemorrhage ([facility]); Essential (primary) hypertension; Sleep apnea, unspecified type; Chronic obstructive pulmonary disease, unspecified COPD type ([facility]); Arteriosclerosis of coronary artery; PAF (paroxysmal atrial fibrillation) ([facility]); History of DVT (deep vein thrombosis); Gastroesophageal reflux disease with esophagitis, unspecified whether hemorrhage; Chronic kidney disease, stage 4 (severe) ([facility]); Calculus of kidney; Hypothyroidism unspecified; Iron deficiency anemia due to chronic blood loss; History of prostate cancer; History of primary malignant neoplasm of urinary bladder; Gout, unspecified cause, unspecified chronicity, unspecified site Patient Education Start: 05-10-2022 End: 05-11-2022 ambulatory TRISTIN WILCOX Facility:[facility] Start: 05-10-2022 End: 05-10-2022 Admission to establishment Pacc Main 6 Work Phone: [facility] Start: 05-10-2022 End: 05-10-2022 Preprocedural examination done Pacc Main 6 Work Phone: Pre Anesthesia Start: 05-09-2022 End: 05-10-2022 ambulatory SHAIKH Milena ELLIOTT Facility: Start: 05-01-2022 End: 05-01-2022 ambulatory FRANKY VERONICA Facility:[facility] Start: 04-25-2022 Telephone encounter Tristin Shawbraxton Col[facility] Surgery Comment on above: Appointment Start: 04-24-2022 Telephone encounter Marika Oh rBo Colorectal Surgery Comment 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 Start: 04-22-2022 End: 04-22-2022 Patient encounter procedure Mekhi VERGARA [facility] Start: 04-18-2022 End: 04-19-2022 ambulatory DE LA O H FAWWAD Facility:[facility] Start: 04-17-2022 End: 04-18-2022 ambulatory TRISTIN WILCOX Facility:[facility] Start: 04-17-2022 End: 04-17-2022 Patient encounter [...] FAWWAD Facility:[facility] Start: 12-18-2021 End: 12-19-2021 ambulatory SHAIKH Milena SARKARD Facility:[facility] Start: 12-13-2021 End: 12-13-2021 Patient encounter procedure 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 [facility] [place] Start: 11-29-2021 End: 11-30-2021 ambulatory CALVIN MOREJON . Facility:[facility] Start: 11-27-2021 End: 11-27-2021 Patient encounter procedure 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 [facility] N[facility] [place] Start: 11-21-2021 End: 11-22-2021 ambulatory SHAIKH Milena SARKARD Facility:[facility] Start: 11-17-2021 ambulatory SHAIKH Milena ELLIOTT Facilit y:[facility] Start: 11-09-2021 Encounter for preprocedural cardiovascular examination DR YENNI STANLEY . [facility] Start: 11-09-2021 Encounter for preprocedural laboratory examination DR YENNI STANLEY . [facility] Start: 11-08-2021 End: 11-09-[address] NONE LISTED REQUEST Facility: Start: 11-08-2021 End: 11-09-2021 Encounter for preprocedural cardiovascular examination DR NONE LISTED REQUEST Facility: Start: 10-16-2021 End: 10-16-2021 Patient encounter procedure 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 [facility] [place] Start: 10-09-2021 End: 10-09-2021 Off-Site Iraida James [facility] Start: 01-20-2017 End: 01-21-2017 Ambulatory DEFAULT PHYSICIAN Facility:[facility] Procedures Date Procedure Procedure Detail Performing Clinician Start: 08-05-2022 Cystoscopy Mekhi VERGARA Start: 05-10-2022 Antibody screen TRISTIN WILCOX Comment on above: Order Comment: Specimen Type: BLOOD SPEC IMENOrdering Facility: [facility] Address: [address] [place] [address] Performed By: #### T [id number] ####CC MAIN BLOOD BANKCLIA [id number] LEO CASEY [id number] [place] [address] [place] Start: 05-09-2022 PSA screening SHAIKH LEXI Comment on above: Performed By: #### A1C #### [facility] [address] [place] [address] Dr. Mason Astudillo Start: 04-18-2022 PSA screening SHAIKH LEXI Comment on above: Performed By: #### PSAD #### [facility] [address] [place] [address] Dr. Mason Astudillo Start: 04-17-2022 Sigmoidoscopy flx dx w/collj spec br/wa if pfrmd [facility] Provider Start: 02-03-2022 Transfusion of Nonautologous Red Blood Cells into Peripheral Vein, Percutaneous Approach SHAIKH LEXI Start: 11-21-2021 Repair of right inguinal hernia 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 Start: 09-21-2021 Colonoscopy Iraida James Start: 07-30-2021 Esophagogastroduodenoscopy Iraida wade Start: 06-14-2019 Cystoscopy Iraida James Start: 08-11-2018 Cystoscopy Iraida Ferrellmetz Start: 01-29-2018 Cystoscopy Iraida Ferrellmetz Start: 07-08-2017 Cystoscopic removal of ureteric stent Iraida James Start: 06-14-2017 Ureteroscopy Iraida James Start: 04-21-2017 Cystoscopy Iraidamilena James Start: 01-06-2017 Cystoscopy Iraida Jacob Start: 10-21-2016 Cystoscopy Iraida James Start: 07-18-2016 [...] spine Yenni NEALL Extraction of cataract Justin NEALL Comment on above: bilateral History of hernia repair Fabio NEALL History of surgical procedure on cervical spine Mekhi VERGARA Parathyroidectomy Yenni ANN CHERI Radiofrequency ablation Aba aetg NEALL Comment on above: C3-C6 Tonsillectomy and adenoidectomy Yenni NEALL 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 VERGARA Plan of Treatment Date Care Activity Detail Author Start: 01-04-2025 Glaucoma screening Diabetes: R etinopathy Screening [facility] Start: 07-03-2024 Medicare Annual Well ness (AWV) Medicare Annual Wellness (AWV) [facility] Start: 10-02-2023 End: 10-02-2023 Patient encounter procedure 10/02/2023 1:00 PM EDT Office Visit [facility] [address] [place] [id number] Shaikh Elliott MD [address] [facility] [place] [address] [facility] Start: 08-07-2023 Hemoglobin A1c measurement Diabetes: Hemoglobin A1C [facility] Start: 11-07-2022 Hemoglobin A1c/Hemoglobin.total in Blood HBA1C [facility] Start: 05-10-2022 End: 07-10-2022 Hemoglobin A1c in Blood [facility] Work Phone: Comment on above: Expected: 05/10/2022 , Expires: 07/10/2022 Start: 03-07-2022 Influenza vaccination INFLUENZA (#1) [facility] Start: 08-21-2021 COVID-19 VACCINE (4 - Booster for Moderna series) COVID-19 VACCINE (4 - Booster for Moderna series) [facility] Start: 07-07-2021 ADVANCE DIRECTIVE DISCUSSION ADVANCE DIRECTIVE DISCUSSION [facility] Start: 07-07-2021 DEPRESSION ASSESSMENT DEPRESSION ASS ESSMENT [facility] Start: 2001 PNEUMOCOCCAL: 65+ (1 - PCV) PNEUMOCOCCAL: 65+ (1 - PCV) [facility] Start: 1986 SHINGRIX VACCINE (1 of 2) SHINGRIX VACCINE (1 of 2) [facility] Start: 1981 DIABETES SCREEN DIABETES SCREEN [facility] Start: 12-17-1955 Urine microalbumin profile DTAP,TDAP,TD (1 - Tdap) [facility] Start: 1954 Hepatitis B surface antibody level LDL CHOLESTEROL [facility] Start: 1954 SPIROMETRY SPIROMETRY [facility] Start: 1946 3 comp foot exam completed DIABETIC FOOT EXAM [facility] Start: 1946 Hepatitis B screening URINE ALBUMIN:CREATININE RATIO [facility] Start: 1946 Hepatitis C antibody , confirmatory test DILATED RETINAL EXAM [facility] Start: 1942 PNEUMOCOCCAL: 65+ (1 - PCV) PNEUMOCOCCAL: 65+ (1 - PCV) [facility] Start: 1941 Hemoglobin A1c/Hemoglobin.total in Blood HBA1C [facility] Immunizations Immunization Date Immunization Notes Care Provider Fa cility 06-06-2023 Influenza, High-dose Seasonal, Quadrivalent, Preservative Free Shaikh Lexi WORKMAN Work Phone: [facility] 05-14-2022 influenza virus vacc ine, unspecified formulation Mekhi VERGARA [facility] 05-14-2022 Influenza, Seasonal, Quadrivalent, Adjuvanted Shaikh Lexi WORKMAN Work Phone: [facility] 06-26-2021 SARS-CoV-2 (COVID-19 ) mRNA-1273 vaccine Mekhi VERGARA [facility] 04-06-2021 influenza virus vacc ine, unspecified formulation Iraida Jacob [facility] 03-28-2021 influenza virus vacc ine, unspecified formulation Mekih VERGARA [facility] 03-28-2021 Influenza, injectabl e, Madin Ellsworth Canine Kidney, preservative free, quadrivalent Shaikh Lexi WORKMAN Work Phone: [facility] 02-04-2021 influenza virus vacc ine, unspecified formulation Iraida James [facility] 09-12-2020 SARS-CoV-2 (COVID-19 ) mRNA-1273 vaccine Mekhi VERGARA [facility] 08-14-2020 SARS-CoV-2 (COVID-19 ) mRNA-1273 vaccine Mekhi VERGARA [facility] 05-25-2020 pneumococcal polysaccharide vaccine, 23 valent Mekhi VERGARA [facility] 05-25-2020 zoster vaccine recombinant Mekhi VERGARA [facility] 02-25-2020 influenza virus vacc ine, unspecified formulation Mekhidominique VERGARA [facility] 02-25-2020 influenza, injectabl e, quadrivalent, preservative free Shaikh Lexi WORKMAN Work Phone: [facility] 02-25-2020 zoster vaccine recombinant Mekhi VERGARA [facility] 05-11-2019 tetanus toxoid, redu nimesh diphtheria toxoid, and acellular pertussis vaccine, adsorbed Mekhi VERGARA [facility] 03-23-2019 influenza virus vacc ine, unspecified formulation Mekhidominique VERGARA [facility] 03-23-2019 pneumococcal conjuga te vaccine, 13 valent Mekhi VERGARA [facility] 03-23-2019 Seasonal trivalent influenza vaccine, adjuvanted, preservative free Shaikh Lexi WORKMAN Work Phone: [facility] 04-30-2018 influenza virus vacc ine, unspecified formulation Mekhi VERGARA [facility] 04-30-2018 Seasonal trivalent influenza vaccine, adjuvanted, preservative free Shaikh Lexi WORKMAN Work Phone: [facility] 02-13-2017 influenza virus vacc ine, unspecified formulation Mekhi VERGARA [facility] 02-13-2017 Seasonal trivalent influenza vaccine, adjuvanted, preservative free Shaikh Lexi WORKMAN Work Phone: [facility] 04-19-2015 influenza virus vacc ine, unspecified formulation Mekhi VERGARA [facility] 04-19-2015 influenza, seasonal, injectable Shaikh Lexi WORKMAN Work Phone: [facility] 04-19-2015 pneumococcal polysaccharide vaccine, 23 valent Mekhi URSULA [facility] 04-13-2015 influenza virus vacc ine, unspecified formulation Mekhi VERGARA [facility] 04-13-2015 influenza, high dose seasonal, preservative-free Shaikh Lexi WORKMAN Work Phone: [facility] 04-22-2007 influenza virus vacc ine, whole virus Shaikh Lexi WORKMAN Work Phone: [facility] 04-22-2007 influenza, whole Mekhi THOMAS [facility] Payers Date Payer Category Payer Private Health Insurance [facility] AAR SUPPLEMENT [id number] 2013-Present [phone] [address] [place] [address] Indemnity [id number] 2002 Unknown 2001 Medicare [id number] 1959 Medicare [id number] 1959 Unknown [id number] 1936 Unknown [id number] 2.16.840.1.993322.3.579.2 .593 1936 Unknown [id number] 2.16.840.1.877426.3.579.2 .593 1936 Unknown [id number] 2.16.840.1.284862.3.579.2 .593 1936 Unknown [id number] 2.16.840.1.297963.3.579.2 .593 1936 Unknown [id number] 2.16.840.1.279950.3.579.2 .593 1936 Unknown [id number] 2.16.840.1.204186.3.579.2 .593 1936 Unknown [id number] 2.16.840.1.102991.3.579.2 .593 1936 Unknown [id number] 2.16.840.1.483313.3.579.2 .593 1936 Unknown [id number] 2.16.840.1.026974.3.579.2 .593 1936 Unknown [id number] 2.16.840.1.487571.3.579.2 .593 1936 Unknown [id number] 2.16.840.1.203494.3.579.2 .593 1936 Unknown [id number] 2.16.840.1.671221.3.579.2 .593 1936 Unknown [id number] 2.16.840.1.390558.3.579.2 .593 1936 Unknown [id number] 2.16.840.1.577197.3.579.2 .593 1936 Unknown [id number] 2.16.840.1.563565.3.579.2 .593 1936 Unknown [id number] 2.16.840.1.713611.3.579.2 .593 1936 Unknown [id number] 2.16.840.1.657527.3.579.2 .593 1936 Unknown [id number] 2.16.840.1.659807.3.579.2 .593 1936 Unknown [id number] 2.16.840.1.555518.3.579.2 .593 1936 Unknown [id number] 2.16.840.1.785858.3.579.2 .593 1936 Unknown [id number] 2.16.840.1.111872.3.579.2 .593 1936 Unknown [id number] 2.16.840.1.987144.3.579.2 .593 1936 Unknown [id number] 2.16.840.1.696970.3.579.2 .593 1936 Unknown [id number] 2.16.840.1.088947.3.579.2 .593 1936 Unknown [id number] 2.16.840.1.547861.3.579.2 .593 1936 Unknown [id number] 2.16.840.1.925944.3.579.2 .593 1936 Unknown [id number] 2.16.840.1.587129.3.579.2 .196 1936 Unknown [id number] 2.16.840.1.966412.3.579.2 .196 1936 Unknown [id number] 2.16.840.1.435224.3.579.2 .196 1936 Unknown [id number] 2.16.840.1.818916.3.579.2 .196 1936 Unknown [id number] 2.16.840.1.325291.3.579.2 .196 1936 Unknown [id number] 2.16.840.1.509027.3.579.2 .196 1936 Unknown [id number] 2.16.840.1.212041.3.579.2 .1259 1936 Unknown [id number] 2.16.840.1.966907.3.579.2 .1259 1936 Unknown [id number] 2.16.840.1.509330.3.579.2 .1259 1936 Unknown [id number] 2.16.840.1.693939.3.579.2 .9 1936 Unknown [id number] 2.16.840.1.635637.3.579.2 .1259 1936 Unknown [id number] 2.16.840.1.498905.3.579.2 .1259 1936 Unknown [id number] 2.16.840.1.058897.3.579.2 .727 1936 Unknown [id number] 2.16.840.1.772069.3.579.2 .727 1936 Unknown [id number] 2.16.840.1.151888.3.579.2 .727 1936 Unknown [id number] 2.16.840.1.844409.3.579.2 .727 Social History Date Type Detail Facility Start: 10-09-2021 End: 06-16-2023 Tobacco smoking status Never smoked tobacco (finding) [facility] Start: 07-28-2023 Sex Assigned At Male F [facility] Tobacco smoking status Never [facility] Start: 04-17-2022 End: 06-16-2023 Tobacco use and exposure Smokeless tobacco non-user [facility] Start: 04-17-2022 End: 05-10-2022 Alcohol intake Current drinker of alcohol (finding) [facility] Start: 04-17-2022 Alcohol [facility] Start: 1935 [facility] Assigned At [facility] on [facility] Start: 04-07-2022 End: 05-10-2022 Exposure to SARS-CoV-2 (event) Not sure [facility] Start: 11-04-2022 Alcohol Comment Rarely [facility] Start: 07-28-2023 Alcohol intake Lifetime non-d abiel (finding) [facility] Start: 07-28-[address] [facility] Start: 06-16-2023 Alcohol Comment caffeine: 1-2 cups per day coffee, soda [facility] Functional Status Date Assessment Result Facility 08-19-2023 Functional Status N/A [facility] 12-23-2022 Functional Status N/A [facility] 08-01-2022 Functional Status N/A [facility] 04-22-2022 Functional Status N/A [facility] Clinical Notes 10-09-2021 to 08-28-2023 Telephone Encounter - Maria Luisa Garcia RN - 05/16/2022 10:17 AM Darline Arriaga RN - 05/10/2022 2:13 PM Sindi Downing PA-C - 05/10/2022 10:50 AM EDTPatient Instructions Note Date & Type Note Facility 08-28-2023 Note [facility] Subjective Ben Guadalupe is a [...] Calculus of kidney Chronic obstructive pulmonary disease ([facility]/HCC) Dementia in other diseases classified elsewhere, unspecified severity, without behavioral disturbance, psychotic disturbance, mood disturbance, and anxiety (CMS/HCC) Sleep apnea Intracranial hemorrhage ([facility]/HCC) History of DVT (deep vein thrombosis) Presence [...] [facility]. He [...] for gastroenteritis. He is currently at the [facility] for rehab. C/o back pain - he [...] by oral route (more content not included)... [facility] 08-28-2023 Note Telephone visit for 1 year follow up s/p Watchman implant. He was just discharged from [facility] on Friday for nausea/vomiting and acute hypokalemia. Denies chest pain and SOB. Says his BP has been good at PT. Review of Systems Cardiovascular: Positive for leg swelling. Musculoskeletal: Positive for arthritis, back pain and muscle weakness. Neurological: Positive for weakness. All other systems reviewed and are negative. [facility] 08-25-2023 Note [id number] [facility] 08-19-2023 Hospital Discharge instructions Patient [...] [facility] [address], [place] [address]- Business (1) When: Unknown Comments:Office will call to schedule follow up [facility] 08-19-2023 Note Custom Cystoscopy ? Voiding [...] you have a fever over 100 degrees. [facility] 08-19-2023 Evaluation + Plan note Diagnostic Tests PendingUroVysion Fish and Urine Cyto ([facility]) 08/19/23 [facility] 03-07-2023 Note Watchman implant 08/08 Continue ASA for lifelong, may stop plavix being that > 6 months since implantation No need for Antibiotic prophylaxis at this time [facility] 03-07-2023 Note Coronary artery dise ase is stable Continue GDMT- ASA, lipitor, metoprolol continue risk factor modifications- heart healthy diet, regular exercise as tolerated and continue all medications. [facility] 03-07-2023 Note Hypertension is well controlled Continue all meds [facility] 03-07-2023 Note Continue lipitor [facility] 03-07-2023 Note [id number] VASc= 4 No anticoagulation s/p watchman implantation Rate remains controlled metoprolol and diltiazem [facility] 03-07-2023 Note Patient here for 6 m o follow up s/p Watchman implant. Doing ok from cardiac standpoint. Denies chest pain, SOB, and palpitations. Still on Plavix as of now. Review of Systems Cardiovascular: Positive for leg swelling. Hematologic/Lymphatic: Negative. Musculoskeletal: Positive for arthritis, back pain, joint pain and myalgias. All other systems reviewed and are negative. [facility] 03-07-2023 Note [facility] CARDIOLOGY [...] tablet 40 mg in the morning. HYDROcodone-acetaminophen ([place]) 5-325 mg tablet Take 1 tablet by [...] Global left ventricul (more content not included)... [facility] 12-23-2022 Hospital Discharge instructions [...] if anything looks unusual. Men with a nvolfq-tnmh-bywdxs risk for skin cancer may want to see a sheepskin pickler (precision agriculture specialist) for an annual body check. What are the benefits of screening? Cancer screening is done to look for cancer in the very early stages, before it spreads and becomes harder to treat and before you would start to notice symptoms. Finding cancer early improves the chances of successful treatment. It may save your life. Where to find more information [employer]: www.cancer.org Centers for Disease Control and Prevention: www.cdc.gov National Cancer [employer]: www.cancer.gov Contact a health care provider if: [...] provider. Document Revised: 11/19/2021 Document Reviewed: 05/19/2020 [employer] Patient Education 2022 [employer]. Follow Up Care 04/22/2022 16:39:16 With:URSULA WORKMAN, Mekhi Oh, URL Address: [facility] [address], [place] [address]- When: Unknown [facility] 10-24-2022 Note CONSULTATION CONSULTATION DATE: 10/24/2022 TO: [...] which is stable. MEDICATION: Current medication includes [place] 5 mg q.i.d. p.r.n. He reports it does improve his pain symptoms, improving his quality of life, level of functioning and his sleep pattern. He denies any side effects. He is also on Lyrica 75 mg at h.s., baclofen 10 mg at h.s. and Tylenol Extra Strength six pills a day, which he takes concomitantly with [place]. EXAM: Notable for patient having left sided [...] our patients to inform us about any fwuc-exz-loatsqy medications or herbal remedies/nutritional supplements/alternative remedies. 2. [...] options with their primary care provider. [facility] 10-18-2022 Note [facility] Subjective Ben Guadalupe is a [...] February 2022 [facility] and [facility] pain. He [...] oriented to perso (more content not included)... [facility] 10-18-2022 Note Patient here for fol low up KINZA s/p Watchman device implant. Denies chest pain and SOB. Doing very well. Review of Systems Cardiovascular: Positive for leg swelling. Hematologic/Lymphatic: Negative. Musculoskeletal: Positive for arthritis, back pain, joint pain and myalgias. All other systems reviewed and are negative. [facility] 09-11-2022 Note [facility] Subjective Ben Guadalupe is a [...] February 2022 [facility] and chest pain. He [...] Right lower le (more content not included)... [facility] 09-11-2022 Note Patient here for 2 w [place]ahannock follow up Watchman implant. Says he feels good. Denies chest pain and SOB. Review of Systems Cardiovascular: Positive for leg swelling. Hematologic/Lymphatic: Negative. Musculoskeletal: Positive for arthritis, back pain and myalgias. All other systems reviewed and are negative. [facility] 08-06-2022 Hospital Discharge instructions [...] Address: [facility] [address], [place] [address] Business (1) When: Unknown Comments:Office will call to schedule follow up [facility] 07-30-2022 Note CONSULTATION CONSULTATION DATE: 07/30/2022 [...] the patient's pain. The patient currently takes [place] 5/325 on a q.i.d. basis, Lyrica 75 [...] oriented x3, engaging with very good short term/intermediate memory. IMPRESSION: Current working diagnosis on the [...] like to maintain. CC: Dr. Elliott [facility] 06-25-2022 Note CONSULTATION CONSULTATION DATE: 06/25/2022 [...] patient currently takes Lyrica 75 mg b.i.d., [place] 5/325 q.i.d., baclofen 10 mg q.h.s. The [...] would like to proceed. CC: Dr. Elliott [facility] 05-17-2022 Note HNO ID: [id number] Author: Minesh Levy APRN.DIAMOND WHEEL EDGER Service: ? Author Type: Nurse Uniform Cap Operator Type: Anesthesia Procedure Notes Filed: 05/17/2022 11:19 [...] Orientation: Left Location: Hand SIGNATURE: Minesh Levy APRN.DIAMOND WHEEL EDGER PATIENT NAME: Ben Guadalupe DATE: May 17, 2022 TIME: 11:17 AM CSN: [id number] [facility] 05-17-2022 Note HNO ID: [id number] Author: Minesh Levy APRN.DIAMOND WHEEL EDGER Service: ? Author Type: Nurse Uniform Cap Operator Type: Anesthesia Procedure Notes Filed: 05/17/2022 10:39 AM Note Text: ANESTHESIOLOGY PROCEDURE NOTE Airway General Information Procedure Start Time/Medication Administration: 05/17/2022 10:11 AM Patient location during procedure: OR Timeout Performed Pre-procedure: timeout performed Consent Obtained: Yes Patient identity confirmed: arm band and patient Staffing Anesthesiologist: Kandice Guadalupe MD DIAMOND WHEEL EDGER: Minesh Levy APRN.DIAMOND WHEEL EDGER Performed by: DIAMOND WHEEL EDGER Indications and Patient Condition Indications for airway management: anesthesia Preoxygenated: yes anesthesia circuit Patient position: sniffing Method: asleep Difficult Mask: No Final Airway Details Final airway type: supraglottic airway Number of attempts at approach: 1 Final Supraglottic Airway: i-gel Size 5 Seal Adequate: yes Failed airway: no Unrecognized esophageal intubation: no Airway not difficult SIGNATURE: Minesh Levy APRN.DIAMOND WHEEL EDGER PATIENT NAME: Ben Guadalupe DATE: May 17, 2022 TIME: 10:38 AM CSN: [id number] [facility] 05-17-2022 Note HNO ID: [id number] Author: Shruthi Valdez RN Service: Nursing Author Type: Registered Nurse Type: Nursing Progress Note Filed: 05/17/2022 10:04 AM Note Text: Other: Dr. Ruiz and Dr. Guadalupe aware of K+ of 3.0. Awaiting orders. [facility] 05-16-2022 Miscellaneous Notes Attempt to call patient to review prep for surgery tomorrow, no answer, no voicemail available. documented in this encounter [facility] 05-10-2022 Note HNO ID: [id number] Author: Donna Arriaga RN Service: ? Author [...] Time spent on patient education: 20 minutes [facility] 05-10-2022 History of Present illness Narrative EUA, ColonoscopyCOLON & RECTAL SURGERY Nursing Education Visit Ben Mcallister Juan Francisco 1935 Surgeon: Tristin Wilcox Reason [...] education: 20 minutes documented in this encounter [facility] 05-10-2022 Note Education (KADIE) BEN GUADALUPE ([id number]) 1935 M Date Time Provider Department 05/10/22 [...] Encounter Status:Closed by DONNA ARRIAGA on 05/10/22 [facility] 05-10-2022 History and physical note HISTORY [...] DVT LLE +chronic LE edema Cards: Dr. Shashi FITCH 03/19/22 Denies any history of WI, CHF,PE, arrhythmias or murmurs. Denies CP, SOB, [...] 442 QTC Calculation (Bazett) 497 Calculated P Hulen 37 Calculated R Hulen 64 Calculated T Hulen -10 Impression NORMAL SINUS RHYTHM COMPLETE RIGHT BUNDLE BRANCH BLOCK INFERIOR T WAVE ABNORMALITY ABNORMAL ECG No results found for this or any previous visit (from the past 03769 hour(s)). OSH Cardiovascular testing ABIs 10/11/2021: Normal [...] Shashi FITCH 03/19/22 PAF (paroxysmal atrial fibrillation) ([facility]) Assessment: admitted to hospital 02/2022 [...] pepcid Chronic kidney disease, stage 4 (severe) ([facility]) Assessment: h/o DAVID 02/2022 during admission for blood loss and PAF -pending BMP today, no recent labs Calculus of kidney Assessment: stable, kidney stones Hypothyroidism unspecified Assessment: stable on Synthroid Diabetes mellitus ([facility]) Assessment: controlled with Farxiga 10 mg daily [...] TIME: 1:37 PM documented in this encounter [facility] 05-09-2022 Instructions Afia Downing PA-C - 05/09/2022 12:36 PM EDT PATIENT PREOPERATIVE INSTRUCTIONS Lorraine Wilcox* has scheduled you for your procedure at this surgery center: [facility] [place] Scheduling Office: [phone] --[address] [place] [address]. Please read below carefully for your personalized [...] or other anticoagulants without consulting with your mountain bike guide or prescribing physician. - Stop Vitamin E, [...] Procedures: - YOU MUST HAVE A RESPONSIBLE SECTION PLOTTER OPERATOR TAKE YOU HOME. A LITIGATION MANAGER OR MACHINE II TRIMMER CANNOT BE MADE A RESPONSIBLE SECTION PLOTTER OPERATOR. - We recommend that a responsible person [...] call the Friday before. Your surgeon s estimator binding will tell you what time to call the office. - If you have not reached the departmental estimator binding by 5 P.M., call [phone] after 5 P.M. the day before your surgery. Please be aware that emergency situations arise, which may delay or change your surgical time. If this happens, we will notify you as soon as possible and regret any inconvenience. If you already have an Advance Directive, please fax a copy to [phone] or email to for it to be [...] Afia Downing PA-C documented in this encounter [facility] 04-25-2022 Miscellaneous Notes The Patient's granddaughter ( Milly Guadalupe) is calling to confirm surgery date, get all testing scheduled for her grandfather. Please call her at : [phone] at 11:30 AM or later, as she is at an appointment now. Thank you. documented in this encounter [facility] 04-24-2022 Miscellaneous Notes SPECIALTY CARE COORDINATION FOLLOW-UP NOTE Message left Pt to call in to discuss setting up surgery Offered 05/17/22 surgical date Any pre-operative business date within 30 days of surgical date Call back number left Signature Marika Zuñiga RN April 24, 2022 documented in this encounter [facility] 04-22-2022 Hospital Discharge instructions Patient Education 04/22/2022 [...] who: Are older than age 65. Are -[place]. Are obese. Have a family history of [...] cells. Follow these instructions at home: Take gxbe-mfe-zkdxaxj and prescription medicines only as told by [...] 06/23/2006 Document Revised: 06/05/2018 Document Reviewed: 03/03/2017 [employer]ive Patient Education 2020 [employer]. Follow Up Care 02/25/2022 17:01:47 With:URSULA WORKMAN, Mekhi Oh, URL Address: [facility] [address] [place] [address]- [phone] When:10/21/2022 [facility] [place] 04-17-2022 History and physical note COLORECTAL SURGERY [...] closed Resting tone: NORMAL Squeeze tone: NORMAL Mountain Or Glacier Guide present: Yes Anoscopy: The patient was placed [...] treatment plan: high documented in this encounter [facility] 04-11-2022 Note CONSULTATION PROCEDURE DATE: 04/11/2022 PREOPERATIVE [...] be followed up in the office. 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 His lower back feels tight, achy and spasmodic. He is having increasing bilateral lower extremity pain. Activities that aggravate his pain are standing, walking, lying, sitting and any physical activity. The use of medication, in addition to heat, decreases his pain. Medications include Lyrica 75 mg b.i.d., baclofen 10 mg q.h.s., [place] 5/325 q.i. d. and a multivitamin regimen. [...] Lyrica and other medications well with no HEALTH CENTER ASSOCIATE side effects. Patient agrees with the plan of care, will be followed up post procedure. [facility] 02-14-2022 Note CONSULTATION PROCEDURE DATE: 02/14/2022 [...] be followed up in the clinic. [facility] 02-14-2022 Note CONSULTATION CONSULTATION DATE: 02/14/2022 [...] and he was in obvious distress. His [place] was increased to 5/325 q.i.d. at that time, which has been helpful. The patient states since the introduction of the Lyrica to his regimen that his [place] is back down to t.i.d. The intent [...] of this medication in addition to the [place]. Patient agrees with the plan of care and will be seen in eight weeks time unless otherwise indicated. [facility] 01-10-2022 Note CONSULTATION CONSULTATION DATE: 01/10/2022 [...] at home. Medication includes at this time [place] 5/325 t.i.d., baclofen 10 mg daily and [...] the patient and noting his distress, his [place] 5/325 will be increased to four times a day. He will be started on Lyrica 50 mg b.i.d. 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 He will receive bilateral lumbar trigger point injections in the office today as well. He will return to the clinic in six weeks' time to re-evaluate his pain pattern and efficacy of the Lyrica. Patient does agree. [facility] 01-10-2022 Note CONSULTATION PROCEDURE DATE: 01/30/2022 [...] procedure well with no overt complications. [facility] 11-29-2021 Note CONSULTATION PROCEDURE DATE: 11/29/2021 [...] will be followed up in the clinic. [facility] Signed and Approved by: CALVIN MOREJON . 12/06/2021 16:01:00 [facility] 11-29-2021 Note CONSULTATION CONSULTATION DATE: 11/29/2021 [...] lower lumbar area. 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 He does use heat daily which is helpful, in addition to Vicks VapoRub. Medications include baclofen 10 mg q.h.s., [place] 5/325 t.i.d. and a multivitamin regimen. The [...] degenerative disc. PLAN: A refill for his [place] 5/325 t.i.d. will be sent to the pharmacy. Patient will receive bilateral lumbar trigger point injections, which he agrees to receive here in the clinic. We will maintain his medications at the current regimen. He is to increase the amount of frequency of heat application and menthol heat rub. We will see the patient in six weeks' time unless otherwise indicated. [facility] Signed and Approved by: CALVIN MOREJON . 12/06/2021 16:01:00 [facility] 11-21-2021 Note OPERATIVE NOTE OPERATION DATE: [...] in good condition. CC: Shaikh Lexi M.D. [facility] Signed and Approved by: DR YENNI STANLEY . 11/28/2021 10:45:00 [facility] 10-09-2021 Hospital Discharge instructions Patient Education [...] 03/19/2005 Document Revised: 10/08/2018 Document Reviewed: 10/08/2018 [employer] Patient Education 2020 [employer]. Follow Up Care 10/01/2021 07:48:54 With:Iraida James CNP Address: When:3 months only if needed [facility] Evaluation + Plan note Future Appointments Appointment Date:10/16/2021 02:20:00 PM Scheduled Provider: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 MD Location:[facility] Appointment Type:[facility] Evaluation + Plan note Future Appointments Appointment Date:04/30/2022 01:40:00 PM Scheduled Provider: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 MD Location:[facility] Appointment Type:[place] [id number] Appointment Date:10/21/2022 03:15:00 PM Scheduled Provider:Mekhi VERGARA MD Location:[facility] Appointment Type:URO Office Visit Diagnostic Tests PendingPSA Total 04/22/[address] [facility] Evaluation + Plan note Future Appointments Appointment Date:10/21/2022 03:15:00 PM Scheduled Provider:Mekhi VERGARA MD Location:[facility] Appointment Type:URO Office Visit Diagnostic Tests PendingUroVysion Fish and Urine Cyto ([facility]) 08/06/22 [facility] Evaluation + Plan note Future Appointments Appointment Date:06/23/2023 03:00:00 PM Scheduled Provider:Mekhi VERGARA MD Location:[facility] Appointment Type:URO Office Visit Diagnostic Tests PendingPSA Total 12/23/[address] [facility] Evaluation note Diagnosis Fourth degree hemorrhoids- Primary Unspecified hemorrhoids with other complication [facility] Diagnosis Pre-op evaluation- Primary Preoperative examination, [...] Coronary atherosclerosis of unspecified type of vessel, [place] or graft PAF (paroxysmal atrial fibrillation) (HCC) [...] with other complication documented in this encounter [facility] note* Diagnosis Chronic venous insufficiency of lower extremity Chronic heart failure with preserved ejection fraction (CMS/HCC) Chronic bilateral low back pain with bilateral sciatica [facility] Narrative No data available for this section [facility] Hospital Discharge instructions No data available for this section General Surgery IMScouting Progress note No data available for this section [facility] Summary Purpose Family History No Family [...] and content) DATE CREATED AUTHOR 12/31/[address] [facility] DATE CREATED AUTHOR AUTHOR'S ORGANIZ ATION 05/31/2022 [facility] DATE CREATED AUTHOR AUTHOR'S ORGANIZ ATION 11/02/2022 [facility] DATE CREATED AUTHOR AUTHOR'S ORGANIZ ATION 06/20/2023 [facility] DATE CREATED AUTHOR AUTHOR'S ORGANIZ ATION 07/29/2023 [facility] DATE CREATED AUTHOR AUTHOR'S ORGANIZ ATION 09/05/2023 [facility] DATE CREATED AUTHOR AUTHOR'S ORGANIZ ATION 01/08/2024 [facility] Source Comments (unrecognize d section and content) In the event this informatio n is protected by the Federal Confidentiality of Alcohol and Drug Abuse Patient Records regulations: The Federal rules restrict any use of the information to criminally investigate or prosecute any alcohol or drug abuse patient.[facility] the event this information is protected by the Federal Confidentiality of Alcohol and Drug Abuse Patient Records regulations: The Federal rules restrict any use of the information to criminally investigate or prosecute any alcohol or drug abuse patient.[facility] the event this information is protected by the Federal Confidentiality of Alcohol and Drug Abuse Patient Records regulations: The Federal rules restrict any use of the information to criminally investigate or prosecute any alcohol or drug abuse patient.[facility] the event this information is protected by the Federal Confidentiality of Alcohol and Drug Abuse Patient Records regulations: The Federal rules restrict any use of the information to criminally investigate or prosecute any alcohol or drug abuse patient.[facility] the event this information is protected by the Federal Confidentiality of Alcohol and Drug Abuse Patient Records regulations: The Federal rules restrict any use of the information to criminally investigate or prosecute any alcohol or drug abuse patient.[facility] the event this information is protected by the Federal Confidentiality of Alcohol and Drug Abuse Patient Records regulations: The Federal rules restrict any use of the information to criminally investigate or prosecute any alcohol or drug abuse patient.[facility] Reason for Visit (unrecogniz ed section and content) Reason Comments 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 Reason Comments Appointment Reason Comments Pre-Op Visit Reason Comments Patient Education Care Teams (unrecognized sec tion and content) Hardwood Faller Relationship Specialty Start Date End Date Franky Veronica (Fax) PCP - General Internal Medicine 06/16/12 Hardwood Faller Relationship Specialty Start Date End Date Franky Veronica (Fax) PCP - General Internal Medicine 06/16/12 Hardwood Faller Relationship Specialty Start Date End Date Franky Veronica (Fax) PCP - General Internal Medicine 06/16/12 Hardwood Faller Relationship Specialty Start Date End Date Franky Veronica (Fax) PCP - General Internal Medicine 06/16/12 Hardwood Faller Relationship Specialty Start Date End Date Franky Veronica (Fax) PCP - General Internal Medicine 06/16/12 Hardwood Faller Relationship Specialty Start Date End Date Shaikh [...] BE BASED ON THE PRIMARY CLINICAL RECORDS. [employer] [facility]. provides no warranty or guarantee of the accuracy or completeness of information in this document.
[2024-05-22 16:13] LABS: Hematocrit 44.3 % (42.0-54.0); Hemoglobin 14.9 g/dL (14.0-18.0); Mean Corpuscular HGB Conc 33.6 g/dL (29.9-35.2); Mean Corpuscular Hemoglobin 28.7 pg (25.9-34.0); Mean Corpuscular Volume 85.4 fL (80.0-94.0); Mean Platelet Volume 10.1 fL (9.5-13.5); Platelet Count 110 10^3/uL (150-450); Red Blood Count 5.19 10^6/uL (4.70-6.10); Red Cell Distribution Width 13.2 % (11.0-15.0); White Blood Count 11.7 10^3/uL (4.0-11.0)
[2024-05-22 16:14] LABS: Bilirubin Urine NEGATIVE (NEGATIVE); Blood Urine LARGE (NEGATIVE); Clarity Urine CLEAR (CLEAR); Color Urine LT. YELLOW (YELLOW); Glucose Urine UA >=1000 mg/dL (NEGATIVE); Ketones Urine 15 mg/dL (NEGATIVE); Leukocyte Esterase Urine SMALL (NEGATIVE); Nitrite Urine NEGATIVE (NEGATIVE); Protein Urine TRACE mg/dL (NEG/TRACE); Specific Gravity Urine 1.015 (1.005-1.025); Urobilinogen Urine 0.2 EU/dL (0.2-1.0); pH Urine 7.5 (5.0-9.0)
[2024-05-22 16:15] LABS: Urine Microscopic Indicated YES
[2024-05-22] MEDS: 0.9 % SODIUM CHLORIDE 1,000 ML 500 ML IV ×2 (16:16→17:16)
[2024-05-22 16:24] LABS: Bacteria Urine SMALL #/HPF (NONE SEEN); Cast Seen? NONE SEEN #/LPF (NONE SEEN); Crystals Seen? None Seen #/HPF (None Seen); Mucus Urine NONE SEEN (NONE SEEN); RBC Urine 20-50 #/HPF (0-2); Squamous Epithelial Cell Urine FEW #/LPF (NONE/RARE); Urine Culture Indicated YES
[2024-05-22 16:29] LABS: Alanine Aminotransferase 17 U/L (16-63); Albumin Globulin Ratio 0.9; Alkaline Phosphatase 120 U/L (46-116); Anion Gap 17.5; Aspartate Amino Transferase 14 U/L (15-37); BUN Creatinine Ratio 8.6; Bilirubin Total 0.8 mg/dL (0.2-1.0); Calcium 8.5 mg/dL (8.5-10.1); Carbon Dioxide 24.4 mmol/L (21.0-32.0); Chloride 100 mmol/L (98-107); Estimated GFR (African America 42 (>=60 mL/min/1.73m^2); Estimated GFR (Non-African Ame 35 (>=60 mL/min/1.73m^2); Globulin 3.5 g/dL; Glucose 407 mg/dL (74-106); Potassium 3.9 mmol/L (3.5-5.1); Sodium 138 mmol/L (136-145); Total Protein 6.5 g/dL (6.4-8.2)
[2024-05-22 16:30] LABS: Anisocytosis 1+; Band Neutrophils Absolute 0.6 10^3/uL (0.0-0.3); Lymphocytes Absolute Manual 0.35 10^3/uL (1.20-3.80); Microcytosis 1+; Segmented Neut Absolute Manual 10.06 10^3/uL (1.4-6.5)
[2024-05-22 16:34] LABS: Lactate/Lactic Acid 2.3 mmol/L (0.4-2.0)
--- NOTE | 2024-05-22 16:41 | PC.NURSE ---
pt arrived to er with yao catheter inplace. per family catheter is being managed at home with home health nurse. family states catheter has been replaced 3 times this month D/T sediment build up in tubing. some thick yellowish drainage noted around catheter. drainage appears to be coming from the urethra. Dr. Schmid notified
[2024-05-22] MEDS: CEFTRIAXONE 1,000 MG in 0.9 % SODIUM CHLORIDE 50 ML 100 MG IV (17:16)
[2024-05-22 17:22] LABS: Glucometer 364 mg/dL (74-106)
--- NOTE | 2024-05-22 17:47 | ED.AMS1 ---
HPI - Altered Mental Status General Chief Complaint: Altered Mental Status Stated Complaint: alter mental status Time Seen by Provider: 05/22/24 15:53 History of Present Illness HPI narrative: The patient is a 88 years old male with history of palliative care and hospice care at home although he has been have this status for the last few years, lives by himself according to the family at the bedside has been on hospice care due to his age for the last few years The patient lives by himself there is only caregiver that comes in twice a day to help him at home and apparently today the patient was sleeping more than usual but he also was given his morphine and Percocet by his relative in the morning due to back pain which is a chronic problem The patient was noted to be sleepy today and his blood sugar was around 400 by the family members and that why they brought him here Patient had his Dodge catheter changed 3 times over the last week due to the fact that it was clogging up The patient in the ER is sleepy when asked or called his name the patient wakes up easily and open his eyes he can recognize everybody around him but he falls back to sleep he is denying any complaint Related Data Home Medications ?Medication ?Instructions ?Recorded ?Confirmed albuterol sulfate 90 mcg/actuation 1 inh inhalation Q4H PRN shortness 12/27/22 05/22/24 aerosol inhaler (ProAir HFA) of breath or wheezing allopurinol 300 mg tablet 300 mg PO DAILY 12/27/22 05/22/24 cholecalciferol (vitamin D3) 25 50 mcg PO DAILY 12/27/22 05/22/24 mcg (1,000 unit) capsule (Vitamin D3) levothyroxine 50 mcg tablet 50 mcg PO DAILY 12/27/22 05/22/24 nitroglycerin 0.4 mg sublingual 0.4 mg sublingual Q5M PRN chest 12/27/22 05/22/24 tablet (Nitrostat) pain aspirin 81 mg capsule 81 mg PO DAILY 01/09/23 05/22/24 diltiazem HCl 180 mg 180 mg PO DAILY 01/09/23 05/22/24 capsule,extended release 24 hr famotidine 20 mg tablet 20 mg PO DAILY 01/09/23 05/22/24 ferrous sulfate 325 mg (65 mg 325 mg PO .every other day 01/09/23 05/22/24 iron) tablet fluticasone propionate 50 2 spray intranasal DAILY PRN nasal 01/09/23 05/22/24 mcg/actuation nasal congestion spray,suspension (Flonase Allergy Relief) magnesium aspart,citrate,oxide 400 mg PO BEDTIME 01/09/23 05/22/24 metoprolol tartrate 25 mg tablet 25 mg PO BID 01/09/23 05/22/24 psyllium husk 0.4 gram capsule 0.4 g PO DAILY 01/09/23 05/22/24 (Metamucil) tamsulosin 0.4 mg capsule (Flomax) 0.4 mg PO DAILY 01/09/23 05/22/24 atorvastatin 20 mg tablet 20 mg PO DAILY 01/10/23 05/22/24 baclofen 10 mg tablet 10 mg PO BID muscle spasm 01/10/23 05/22/24 Lactobacillus rhamnosus GG 10 1 cap PO DAILY 07/18/23 05/22/24 billion cell capsule (Culturelle) glipizide 5 mg tablet 5 mg PO BID 07/18/23 05/22/24 multivitamin 1 tab PO BID 07/18/23 05/22/24 acetaminophen 500 mg tablet 1,000 mg PO Q8H PRN pain 09/13/23 05/22/24 (Tylenol Extra Strength) potassium chloride 20 mEq 20 meq PO DAILY 09/13/23 05/22/24 tablet,extended release(part/cryst) (Klor-Con M) donepezil 10 mg disintegrating 10 mg PO DAILY 05/22/24 05/22/24 tablet guaifenesin 600 mg tablet, 600 mg PO Q12H 05/22/24 05/22/24 extended release 12 hr (Mucinex) loperamide 2 mg tablet 2 mg PO Q6H PRN loose stool 05/22/24 05/22/24 metformin 500 mg tablet,extended 500 mg PO DAILY 05/22/24 05/22/24 release 24 hr methenamine hippurate 1 gram tablet 1 g PO Q12H 05/22/24 05/22/24 metoclopramide HCl 5 mg tablet 5 mg PO Q6H PRN nausea and vomiting 05/22/24 05/22/24 morphine 30 mg tablet,extended 30 mg PO Q12H PRN pain 05/22/24 05/22/24 release ondansetron HCl 8 mg tablet 8 mg PO Q8H PRN nausea and vomiting 05/22/24 05/22/24 Previous Rx's ?Medication ?Instructions ?Recorded pregabalin 100 mg capsule (Lyrica) 100 mg PO TID 5 days #15 caps 08/25/23 fluconazole 150 mg tablet 150 mg PO DAILY #7 tabs 09/16/23 furosemide 20 mg tablet 40 mg (2 x 20 mg) PO DAILY #0 tabs 09/16/23 losartan 100 mg tablet 50 mg (1/2 x 100 mg) PO DAILY #0 09/16/23 tabs Allergies Allergy/AdvReac Type Severity Reaction Status Date / Time tizanidine (From Zanaflex) Allergy Unknown Verified 07/18/23 19:12 acetaminophen (From Percocet) AdvReac Mild Vomiting Verified 07/18/23 19:12 cyclobenzaprine (From AdvReac Mild Hallucinati Verified 07/18/23 19:12 Flexeril) ng oxycodone (From Percocet) AdvReac Mild Vomiting Verified 07/18/23 19:12 tramadol AdvReac Mild Vomiting Verified 07/18/23 19:12 Review of Systems ROS Status of ROS 10 or more systems reviewed and unremarkable except as noted in history and below [facility] Medical History (Updated 05/22/24 @ 17:47 by Raven Schmid MD) E. coli UTI ?N39.0 - Urinary tract infection, site not specified (ICD-10) ?B96.20 - Unspecified Escherichia coli [E. coli] as the cause of diseases classified elsewhere (ICD-10) Yeast infection ?B37.9 - Candidiasis, unspecified (ICD-10) Cellulitis of scrotum ?N49.2 - Inflammatory disorders of scrotum (ICD-10) Decubitus ulcer of sacral area ?L89.159 - Pressure ulcer of sacral region, unspecified stage (ICD-10) DDD (degenerative disc disease), lumbar ?M51.36 - Other intervertebral disc degeneration, lumbar region (ICD-10) Lumbar radiculopathy ?M54.16 - Radiculopathy, lumbar region (ICD-10) Intractable low back pain ?M54.59 - Other low back pain (ICD-10) Unable to ambulate ?R26.2 - Difficulty in walking, not elsewhere classified (ICD-10) Chronic kidney disease ?N18.9 - Chronic kidney disease, unspecified (ICD-10) Spondylosis ?M47.9 - Spondylosis, unspecified (ICD-10) Radiculopathy ?M54.10 - Radiculopathy, site unspecified (ICD-10) Chronic diastolic heart failure ?I50.32 - Chronic diastolic (congestive) heart failure (ICD-10) Type 2 diabetes mellitus ?E11.9 - Type 2 diabetes mellitus without complications (ICD-10) Afib ?I48.91 - Unspecified atrial fibrillation (ICD-10) Spinal stenosis ?M48.00 - Spinal stenosis, site unspecified (ICD-10) Peripheral edema ?R60.0 - Localized edema (ICD-10) Hypertension ?I10 - Essential (primary) hypertension (ICD-10) Lumbar spondylosis ?M47.816 - Spondylosis without myelopathy or radiculopathy, lumbar region (ICD-10) Chronic low back pain ?M54.50 - Low back pain, unspecified (ICD-10) ?G89.29 - Other chronic pain (ICD-10) Anxiety ?F41.9 - Anxiety disorder, unspecified (ICD-10) Shortness of breath ?R06.02 - Shortness of breath (ICD-10) 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 ?R33.9 - Retention of urine, unspecified (ICD-10) Ambulatory dysfunction ?R26.2 - Difficulty in walking, not elsewhere classified (ICD-10) HLD (hyperlipidemia) ?E78.5 - Hyperlipidemia, unspecified (ICD-10) Depression with anxiety ?F41.8 - Other specified anxiety disorders (ICD-10) Acute hypokalemia ?E87.6 - Hypokalemia (ICD-10) Intractable low back pain ?M54.59 - Other low back pain (ICD-10) CKD stage 3 due to type 2 diabetes mellitus ?E11.22 - Type 2 diabetes mellitus with diabetic chronic kidney disease (ICD-10) ?N18.30 - Chronic kidney disease, stage 3 unspecified (ICD-10) Lumbar stenosis with neurogenic claudication ?M48.062 - Spinal stenosis, lumbar region with neurogenic claudication (ICD-10) Osteoarthritis of right knee ?M17.11 - Unilateral primary osteoarthritis, right knee (ICD-10) Chronic pain syndrome ?G89.4 - Chronic pain syndrome (ICD-10) Chronic prescription opiate use ?Z79.891 - [facility] (current) use of opiate analgesic (ICD-10) Osteoarthritis, 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 - Primary osteoarthritis, unspecified shoulder (ICD-10) Right shoulder pain ?M25.511 - Pain in right shoulder (ICD-10) Lumbar radiculopathy ?M54.16 - Radiculopathy, lumbar region (ICD-10) Abdominal pain ?R10.9 - Unspecified abdominal pain (ICD-10) Nausea & vomiting ?R11.2 - Nausea with vomiting, unspecified (ICD-10) Esophagitis ?K20.90 - Esophagitis, unspecified without bleeding (ICD-10) Muscle spasm ?M62.838 - Other muscle spasm (ICD-10) Lumbar stenosis ?M48.061 - Spinal stenosis, lumbar region without neurogenic claudication (ICD-10) Retraction of blood clot ?I74.9 - Embolism and thrombosis of unspecified artery (ICD-10) Inguinal hernia ?K40.90 - Unilateral inguinal hernia, without obstruction or gangrene, not specified as recurrent (ICD-10) Presence of Watchman left atrial appendage closure device ?Z95.818 - Presence of other cardiac implants and grafts (ICD-10) Low back pain ?M54.50 - Low back pain, unspecified (ICD-10) Rheumatoid arthritis ?M06.9 - Rheumatoid arthritis, unspecified (ICD-10) Osteoarthritis ?M19.90 - Unspecified osteoarthritis, unspecified site (ICD-10) Gout ?M10.9 - Gout, unspecified (ICD-10) DVT (deep venous thrombosis) ?I82.409 - Acute embolism and thrombosis of unspecified deep veins of unspecified lower extremity (ICD-10) Bladder cancer ?C67.9 - Malignant neoplasm of bladder, unspecified (ICD-10) Hearing deficit ?H91.90 - Unspecified hearing loss, unspecified ear (ICD-10) IBS (irritable bowel syndrome) ?K58.9 - Irritable bowel syndrome without diarrhea (ICD-10) Acid reflux ?K21.9 - Gastro-esophageal reflux disease without esophagitis (ICD-10) Hypothyroid ?E03.9 - Hypothyroidism, unspecified (ICD-10) Diabetes 1.5, managed as type 2 ?E13.9 - Other specified diabetes mellitus without complications (ICD-10) Kidney stone ?N20.0 - Calculus of kidney (ICD-10) Prostate cancer ?C61 - Malignant neoplasm of prostate (ICD-10) CPAP (continuous positive airway pressure) dependence ?Z99.89 - Dependence on other enabling machines and devices (ICD-10) Sleep apnea ?G47.30 - Sleep apnea, unspecified (ICD-10) Hypercholesterolemia ?E78.00 - Pure hypercholesterolemia, unspecified (ICD-10) Surgical History H/O transurethral resection of bladder tumor (TURBT) ?Z98.890 - Other specified postprocedural states (ICD-10) ?Z86.03 - Personal history of neoplasm of uncertain behavior (ICD-10) H/O arthroscopy of knee ?Z98.890 - Other specified postprocedural states (ICD-10) S/P tonsillectomy and adenoidectomy ?Z90.89 - Acquired absence of other organs (ICD-10) Previous back surgery ?Z98.890 - Other specified postprocedural states (ICD-10) H/O neck surgery ?Z98.890 - Other specified postprocedural states (ICD-10) Family History (Updated 09/13/23 @ 13:25 by Padmini Schmitz) Other Family history of diabetes mellitus Social History (Updated 07/18/23 @ 22:27 by Betsy Rojo) Within the past year, how often did you have a drink containing alcohol: never Score interpretation: A score less than 4 is consistent with normal alcohol consumption. Smoking status: Never smoker Non-prescribed substance use: denies use Previous occupational history: retired Known occupational exposures/hazards: No Highest level of school completed/degree received: high school graduate Are you now , , , , never or living with a partner: In a typical week, how many times do you talk on the telephone with family, friends, or neighbors: 3 or more times per week How often do you get together with friends or relatives: 3 or more times per week How often do you attend jainism or holiness services: never Do you belong to any clubs or organizations such as jainism groups unions, fraternal or athletic groups, or school groups: no Total score: 1 Score interpretation: A score of less than or equal to 1 indicates the most socially isolated. Little interest or pleasure in doing things: not at all Feeling down, depressed, or hopeless: not at all Feel stressed/tense/nervous/anxious/difficulty sleeping: not at all Do you think of yourself as: straight/heterosexual Gender Identity: male Exam Narrative Exam Narrative: Nurses notes and vital signs reviewed and patient is not hypoxic. General: Well-appearing and in no apparent distress. Skin: Warm, dry, no pallor noted. No rash. Head: Normocephalic, atraumatic. Neck: Supple, non-tender. Eye: Pupils are equal, round and EOMI. No scleral icterus. Ears, Nose, Mouth, and Throat: TM are clear, no nasal mucosal hypertrophy. Oral mucosa is moist, no posterior oropharynx erythema, uvula is mid-line Cardiovascular: Regular Rate and Rhythm without murmur, gallop or rub. Respiratory: No accessory muscle use or respiratory distress. Lungs are clear to auscultation, no wheezing, rales or rhonchi Chest Wall: no tenderness Back: No midline thoracic or lumbar vertebral tenderness. No CVA tenderness Musculoskeletal: normal ROM, no calf or popliteal tenderness, no lower extremity edema/swelling GI: Abdomen is soft, non-distended. Normal bowel sounds. No masses appreciated. No tenderness to palpation. No rebound, guarding, or rigidity noted. Neurological: Sleepy but easily elicited and O x1 No cranial nerve dysfunction observed. Psychiatric: Cooperative and interactive. Normal mood and affect. Constitutional Vital Signs, click to edit/add: Last Vital Signs Temp 100.7 F H 05/22/24 15:49 Pulse 108 H 05/22/24 16:20 Resp 25 H 05/22/24 16:20 BP 151/89 H 05/22/24 16:05 Pulse Ox 98 05/22/24 16:20 O2 Del Method Nasal Cannula 05/22/24 15:59 O2 Flow Rate 2 05/22/24 15:59 Course Vital Signs Vital signs: Vital Signs Temperature 100.7 F H 05/22/24 15:49 Pulse Rate 116 H 05/22/24 15:49 Respiratory Rate 24 H 05/22/24 15:49 Blood Pressure 163/93 H 05/22/24 15:49 Pulse Oximetry 93 L 05/22/24 15:49 Oxygen Delivery Method Room Air 05/22/24 15:49 Temperature 100.7 F H 05/22/24 15:49 Pulse Rate 108 H 05/22/24 16:20 Respiratory Rate 25 H 05/22/24 16:20 Blood Pressure 151/89 H 05/22/24 16:05 Pulse Oximetry 98 05/22/24 16:20 Oxygen Delivery Method Nasal Cannula 05/22/24 15:59 Oxygen Delivery Flow Rate 2 05/22/24 15:59 MDM - Altered Mental Status MDM Narrative Medical decision making narrative: The patient upon arrival have an EKG showing rhythm with a heart rate of [address] elevation or depression His presentation with a low-grade fever could be secondary to UTI White blood cells 11.7 The patient lactic acid is elevated mildly at 2.3 with acute kidney injury 1.8 which could be secondary dehydration or hyperglycemia The patient was started on IV fluid he also had a 1 dose of ceftriaxone was started I spoke with the patient family and that he is hospice care but he lives by himself and he also does not have anybody to stay with him overnight to make sure he is getting his mental status back to normal his presentation could be secondary to reaction to Percocet and morphine together The patient case was discussed with and she agreed with above-mentioned plan Lab Data Labs: Lab Results 05/22/24 05/22/24 Range/Units 16:05 17:20 WBC 11.7 H (4.0-11.0) 10^3/uL RBC 5.19 (4.70-6.10) 10^6/uL Hgb 14.9 (14.0-18.0) g/dL Hct 44.3 (42.0-54.0) % MCV 85.4 (80.0-94.0) fL MCH 28.7 (25.9-34.0) pg MCHC 33.6 (29.9-35.2) g/dL RDW 13.2 (11.0-15.0) % Plt Count 110 L (150-450) 10^3/uL MPV 10.1 (9.5-13.5) fL Seg Neuts % (Manual) 86.0 H (43.0-75.0) Band Neutrophils % 5.0 (0-5) % Lymphocytes % (Manual) 3.0 L (20.5-60.0) % Monocytes % (Manual) 6.0 (1.7-12.0) % Eosinophils % (Manual) 0.0 L (0.9-7.0) % Basophils % (Manual) 0.0 L (0.2-2.0) % Neutrophils # (Manual) 10.06 H (1.4-6.5) 10^3/uL Band Neutrophils # 0.6 H (0.0-0.3) 10^3/uL Lymphocytes # (Manual) 0.35 L (1.20-3.80) 10^3/uL Monocytes # (Manual) 0.70 (0.30-0.80) 10^3/uL Eosinophils # (Manual) 0.00 (0.00-0.70) 10^3/uL Basophils # (Manual) 0.00 (0.00-0.10) 10^3/uL Anisocytosis 1+ Microcytosis 1+ Sodium 138 (136-145) mmol/L Potassium 3.9 (3.5-5.1) mmol/L Chloride 100 (98-107) mmol/L Carbon Dioxide 24.4 (21.0-32.0) mmol/L Anion Gap 17.5 BUN 16.0 (7.0-18.0) mg/dL Creatinine 1.86 H (0.70-1.30) mg/dL Est GFR ( Amer) 42 L (>=60 mL/min/1.73m^2) Est GFR (Non-Af Amer) 35 L (>=60 mL/min/1.73m^2) BUN/Creatinine Ratio 8.6 Glucose 407 H (74-106) mg/dL Lactate 2.3 H* (0.4-2.0) mmol/L Calcium 8.5 (8.5-10.1) mg/dL Total Bilirubin 0.8 (0.2-1.0) mg/dL AST 14 L (15-37) U/L ALT 17 (16-63) U/L Alkaline Phosphatase 120 H (46-116) U/L Total Protein 6.5 (6.4-8.2) g/dL Albumin 3.0 L (3.4-5.0) g/dL Globulin 3.5 g/dL Albumin/Globulin Ratio 0.9 Urine Color Lt. yellow (YELLOW) Urine Clarity Clear (CLEAR) Urine pH 7.5 (5.0-9.0) Ur Specific [place] 1.015 (1.005-1.025) Urine Protein Trace (NEG/TRACE) mg/dL Urine Glucose (UA) >=1000 A (NEGATIVE) mg/dL Urine Ketones 15 A (NEGATIVE) mg/dL Urine Occult Blood Large A (NEGATIVE) Urine Nitrite Negative (NEGATIVE) Urine Bilirubin Negative (NEGATIVE) Urine Urobilinogen 0.2 (0.2-1.0) EU/dL Ur Leukocyte Esterase Small A (NEGATIVE) Urine RBC 20-50 A (0-2) #/HPF Urine WBC 5-10 A (NONE SEEN) #/HPF Ur Squamous Epith Cells Few A (NONE/RARE) #/LPF Urine Crystals None seen (None Seen) #/HPF Urine Bacteria Small A (NONE SEEN) #/HPF Urine Casts None seen (NONE SEEN) #/LPF Urine Mucus None seen (NONE SEEN) Ur Culture Indicated? Yes POC Glucose 364 H (74-106) mg/dL Discharge Plan Discharge Chief Complaint: Altered Mental Status Clinical Impression: Altered mental status, Bacterial UTI, Hyperglycemia Patient Disposition: Admitted as Observation Time of Disposition Decision: 17:47 Condition: Good
--- NOTE | 2024-05-22 17:57 | ECG_ITS ---
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
--- OUTSIDE RECORDS SUMMARY | 2024-05-22 18:20 | XMS_ITS | CCD ---
Author Organization [facility] Care Team Providers Care Ramp Attendant Name Role Phone PHYSICIAN, DEFAULT Unavailable Unavailable PHYSICIAN, DEFAULT Unavailable Unavailable KIERA LOMBARDO Primary Care Physician Franky Veronica Primary Care Provider [phone] SHAIKH ELLIOTT Primary Care Physician AURELIO DURAES, [...] Admitting Unavailable MOREJON ., CALVIN Consulting Unavailable [facility], [facility] Primary Care Unavailable WINSTON ., DR PAULINE Ring Attending Unavailable WINSTON ., DR PAULINE Ring Admitting [facility]available [facility] Primary Care Unavailable WEST, DR LEEANN Valles Consulting Unavailable MOUKARBEL, DR WALLS Admitting Unavailable MOUKARBEL, DR WALLS Attending Unavailable MOUKARBEL, DR WALLS Consulting Unavailable [facility], [facility] Primary Care Unavailable AKKINA, REMY Admitting Unavailable AKKINA, REMY Attending Unavailable WINSTON ., DR PAULINE Ring Consulting Unavailable AKKINA, REMY Consulting Unavailable REQUEST, DR NONE LISTED Primary Care Unavaila ble NILL ., DR HYMAN Admitting Unavailable NILL ., DR HYMAN Attending Unavailable NILL ., DR HYMAN Consulting Unavailable [facility], [facility] Consulting Unavailable NEFCYBRITTANIE Consulting Unavailable [facility], [facility] Primary Care Unavailable VERGARA ., DR JASSO Admitting Unavailable VERGARA ., DR JASSO Attending Unavailable VERGARA ., DR JASSO Consulting Unavailable [facility] Primary Care Unavailable WINSTON ., DR PAULINE Ring Consulting Unavailable WINSTON ., DR PAULINE Ring Admitting Unavailable WINSTON ., DR PAULINE Ring Attending Unavailable LAKSHMIPATHY ., ROGELIO Attending Sweta vailable LAKSHMIPATHY ., ROGELIO Admitting Sweta vailable [facility], [facility] Primary Care Unavailable [facility], [facility] Primary Care Unavailable NILL ., DR HYMAN Attending Unavailable NILL ., DR HYMAN Consulting Unavailable NILL ., DR HYMAN Admitting Unavailable AGUBOSIM, ELIZ Consulting Unavailable LISSY AREVALOLEY Consulting Unavailable [facility], [facility] Primary Care Unavailable NILL ., DR HYMAN Attending Unavailable NILL ., DR HYMAN Admitting Unavailable [facility], [facility] Primary Care Unavailable VERGARA ., DR JASSO Admitting Unavailable VERGARA ., DR JASSO Attending Unavailable VERGARA ., DR JASSO Consulting Unavailable WINSTON ., DR PAULINE Ring Attending Unavailable WINSTON ., DR PAULINE Ring Consulting Unavailable [facility], [facility] Primary Care Unavailable WINSTON ., [...] Unavailable FaShaikh pearl MD Primary Care Provider [phone] ANDREA COLORADO Attending Unavailable NERISSA ORDONEZ Attending [...] [acetaminophen-hydr ocodone] Drug Allergy Nausea and vomiting [facility] (16 sources) Acetaminophen / oxyCODONE; Translations: [acetaminophen-oxyc odone] Drug Allergy 06-03-20 16 Vomiting [facility] (19 sources) tiZANidine; Translations: [tizanidine] Drug Allergy 05-11-20 19 Mental Status Change, Vomiting, GI intolerance, Hallucinations [facility] (12 sources) traMADol; Translations: [tramadol] Drug Allergy 02-28-20 22 GI intolerance [facility] (3 sources) Acetaminophen / oxyCODONE; Translations: [OXYCODONE-ACETAMIN OPHEN] Drug Allergy 06-03-20 16 GI intolerance, Unknown [facility] (2 sources) Acetaminophen / HYDROcodone Drug Allergy 06-03-20 16 [facility] (2 sources) Acetaminophen / oxyCODONE Drug Allergy 06-03-20 16 [facility] (2 sources) cyclobenzaprine Drug Allergy 07-18-19 17 [facility] (1 source) tiZANidine Drug Allergy [facility] (2 sources) traMADol Drug Allergy 06-12-20 16 [facility] (1 source) Acetaminophen / HYDROcodone Drug Allergy 06-18-20 23 GI intolerance [facility] Medications Current Medications Medication Drug Class(es) Dates Sig (Normalized) Sig (Original) [facility] oral capsule (4 sources) Start: 06-01-2019 take 1 capsule by mouth twice daily [facility] oral capsule cap(s), Oral, BID, Refill(s) 0, Prophylaxis Start Date: 06/01/19 Status: Ordered [id number] 200 actuat albuterol 0.09 mg/actuat metered dose [...] the morning cholecalciferol (Vitamin D-3) 250 MCG (02338 UT) capsule Take 1,000 Units by mouth [...] comment) Start Date: 06/01/19 Status: Ordered dorzolamide (FATIAMH SOPT) 2 % ophthalmic solution three times [...] take 1 tablet by mouth at [facility] [facility] ferrous sulfate 325 (65 Fe) MG tablet [...] osus GG (9 sources) Start: 04-22-2022 [facility] Refill(s) 0 Start Date: [...] 07/10/21 Status: Ordered take 1 tablet by [facility] every eight hours as needed ondansetron [...] Daily, # 30 tab(s), Refills(s) 0, Pharmacy: [facility], 177.8, cm, 07/10/21 15:02:00 EST, Height/Length Dosing, 88.6, kg, 07/10/21 15:02:00 EST, Weight Dosing Start Date: 07/10/21 Status: Ordered Start: 07-10-2021 take 1 tablet by [facility] once daily pantoprazole 40 mg Oral EC Tab 40 mg = 1 tab(s), Oral, Daily, # 30 tab(s), Refills(s) 0, Pharmacy: [facility], 177.8, cm, 07/10/21 15:02:00 EST, [...] 1 capsule by [facility] every twenty-four hours in [...] every six hours as needed for pain Benton 325 mg-5 mg oral tablet 1 tab(s), [...] tab(s), Refills(s) 0, [facility]acy: [id number], 177, cm, 06/20/23 10:48:00 EST, Height/Length Dosing, 81.9, kg, 06/20/23 10:48:00 EST, Weight Dosing Start Date: 06/20/23 Status: Ordered Start: 07-26-2022 take 1 tablet by ravi th once daily Cipro 250 mg Tab 250 mg = 1 tab(s), Oral, Daily, Take 1 tablet the day before the procedure and 1 tablet after the procedure, # 2 tab(s), Refills(s) 0, Pharmacy: [facility] #[id number], 177.8, cm, 04/22/22 15:44:00 EDT, Height/Length Dosing, 85.4, kg, 04/22/22 15:44:00 EDT,... Start Date: 07/26/22 Status: Ordered Start: 07-10-2021 take 1 tablet by ravi once daily Cipro 500 mg Tab 500 mg = 1 tab(s), Oral, Daily, Take 1 tablet 07/16/21 and 1 tablet after the procedure 07/17/21, # 2 tab(s), Refills(s) 0, Pharmacy: [facility] [facility], 177.8, cm, 07/24/20 9:23:00 EST, Height/Length Dosing, [...] Coronary arteriosclerosis; Translations: [Atherosclerotic heart disease of [place] coronary artery without angina pectoris] Onset: 08-13-2017 [...] 07-03-2023 07-03-2023 Other aftercare (1 source) Other preparing box tender (current) drug therapy; Translations: [OTH HALFWAY CURRENT DRUG THERAPY] Onset: 02-12-2022 Episodic Other aftercare (1 source) supervisor wood room (current) use of aspirin; Translations: [SLIVER LAPPER CURRENT USE OF ASPIRIN] Onset: 02-12-2022 Episodic Other aftercare (1 source) supervisor wood room (current) use of anticoagulants; Translations: [HALFWAY CURRNT USE ANTICOAGULANTS] Onset: 11-27-2021 Episodic Other aftercare (2 sources) supervisor wood room (current) use of antibiotics; Translations: [supervisor wood room (current) use of antibiotics] Onset: 10-18-2022 Episodic [...] BEN GUADALUPE/Sex: 1935 Male Med Rec #: [id number] Physician: Mekhi VERGARA MD Financial #: [id number] Pt. Type: O Room/Bed: / Admit/Disch: 08/19/23 [...] Aicha Palacio Role Performed Surgeon - Primary Bowling Ball Molder - Primary Scrub - Primary Time In [...] MARCELINA Puckett RN, Ruthann 01/06/24 17:04 Normal [facility] Main OR Preoperative Recordo n 01-06-2024 Main OR Preoperative Record Main OR Preoperative Record Holding Area Document Type FTURO Summary Primary Physician: Mekhi VERGARA MD Finalized Date/Time: 01/06/24 17:05:09 Pt. Name: BEN GUADALUPE./Sex: 1935 Male Med Rec #: [id number] Physician: Mekhi VERGARA MD Financial #: [id number] Pt. Type: O Room/Bed: / Admit/Disch: 08/19/23 [...] MARCELINA Puckett RN, Ruthann 01/06/24 17:05 Normal [facility] UroVysion Fish and Urine Cyt o ([facility])on 10-28-2023 UVFISH & UC Diagnosis Info Invalid Interpretation Code [facility] Comment on above: Result Comment: A:Ur [...] correlated with cytology and cystoscopy results.* CPT 98623, 27764. Microscopic Notes - Microscopic Notes - Abnormal cells 9p21 deletions: Abnormal cells aneploid events: Total cells analyzed: 100 Hematuria: Gross Description Site ID:A color Yellow fixative Alcohol Received 90 mls of clear yellow fluid with the patient's name and, Urine on the vial. Electronically signed by : on: 08/25/2023 23:10:47 Performed By: #### 1 [id number] ####[facility] [address] [place] [address] Lab Reportson 10-10-2023 Lab Reports [id number]#[id number] Normal [facility] Reference Lab Reporton 10-09 Reference Lab Report [id number]#[id number] Normal [facility] Reminderson 08-29-2023 Reminders - From: Alaina Dickson To: EU - Recalls Vergara; Sent: 08/29/2023 09:01:00 EST Show up: 07/07/2024 09:00:00 EST Subject: cysto/fish/cytol Due Date/Time: 07/26/2024 09:00:00 EST Reminder/Recall Patient is due in Aug 2024 for 1 year cysto/fish/cytol (bt ck)/PSA Normal [facility] Telemedicineon 08-28-2023 Telemedicine [id number] Ben Guadalupe 1935 M Date Provider Department Center 08/28/2023 NERISSA TESFAYE CARD [facility] Family History Problem Relation Age of Onset Heart failure Mother Prostate cancer Father Coronary artery disease Brother Prostate cancer Brother Family Status - Relation Status Age at Mother Father Brother Level of Service:81152 SD PHYS/QHP TELEPHONE EVALUATION 11-20 MIN Reason for Visit and Comments: Atrial Fibrillation [80] Hypertension [448533] Congestive Heart Failure [127] Normal [facility] Consent for Procedure/Surger yon 08-25-2023 Consent for Procedure/Surgery [id number]#[id number] [facility] IntraOperative Documentson 0 08-25-2023 IntraOperative Documents [id number]#1.00TIFF [facility] CHEMISTRYOrdered By: SYSTEM SYSTEM on 08-19-2023 PSA Total 3.7 ng/mL High 0.1 - 3.5 ng/mL [facility] Comment on above: Interpretive Data: T he concentration of PSA determined by different manufacturers can vary due to differences in assay methods and reagent specificity. Values obtained from different assay methods cannot be used interchangeably. The methodology used for this result was chemiluminescence using [employer] Access Hybritech PSA reagent. Consent for Treatmenton 08-07 Consent for Treatment [id number]#1.00TIFF [facility] Consent for Treatment [id number]#1.00TIFF [facility] Operative Reporton Operative Report Patient: BEN [...] with antibiotic coverage, Follow up arranged. Normal [facility] Comment on above: Result Comment: Elec tronically Signed By: URSULA WORKMAN, Mekhi Oh\.br\Date and Time Signed: 08/19/23 16:18 EST PSA Totalon 08-19-2023 PSA Total 3.7 ng/mL High 0.1-3.5 [facility] Comment on above: Result Comment: The concentration of PSA determined by different manufacturers can vary due to differences in assay methods and reagent specificity. Values obtained from different assay methods cannot be used interchangeably. The methodology used for this result was chemiluminescence using [employer] Access Hybritech PSA reagent. Performed By: #### 1 [id number] ####[facility] [address] [facility] [place] [address] UroVysion Fish and Urine Cyt o ( Labs)on 08-19-2023 UVUC Method of Extraction Cystoscopy Normal [facility] Comment on above: Performed By: #### 1 [id number] ####[facility] [address] [place] [address] [facility]UC Number of Jars 1 Invalid Interpretation Code [facility] Comment on above: Performed By: #### 1 [id number] ####[facility] [address] [place] [address] [facility]UC Specimen Urine Normal [facility] Comment on above: Performed By: #### 1 [id number] ####[facility] [address] [place] [address] [facility]UC Type of Service Technical Only Normal [facility] Comment on above: Performed By: #### 1 [id number] ####[facility] [address] [place] [address] Ambulatory Visit Summaryon 1 08-21-2022 Ambulatory Visit Summary BEN GUADALUPE :1935 Visit Date:06/20/2023 Ambulatory Visit Instructions Your Diagnosis Rising PSA 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 Urinary retention Prostatitis BPH with urinary obstruction Urge incontinence History of bladder cancer Tests Performed Urnls Dip Stick Auto w/o Microscopy POC 54580 Your Care Team Attending Physician - URSULA WORKMAN, Mekhi Oh Primary Care Physician - LEXI WORKMAN, DE LA O This Is Your Medications List ciprofloxacin (Cipro 500 mg Tab) doxycycline (doxycycline hyclate 100 mg Tab) Contact prescribing physician if questions or concerns acetaminophen-hydrocodone (Benton 325 mg-5 mg oral tablet) albuterol (ProAir [...] (glipiZIDE 5 mg Tab) lactobacillus rhamnosus GG ([facility]) levothyroxine (levothyroxine 50 mcg (0.05 mg) [...] with URSULA WORKMAN, GO Scott When: Where: [address] [place] [address]- Medications What How Much When Instructions New ciprofloxacin (Cipro 500 mg Tab) 1 Tablets By Mouth As Directed Pt to take 1 tab the day before procedure and the 2nd tab the day of procedure once completed. Pickup at [facility]19 New doxycycline (doxycycline hyclate 100 mg Tab) 1 Tablets By Mouth 2 times a day Duration: 2 Weeks Pickup at [facility] #30966 Unchanged acetaminophen-hydrocodone (Benton 325 mg-5 mg oral tablet) 1 Tablets [...] questions or (more content not included)... Normal [facility] Patient Educationon 06-20-20 23 Patient Education Infectious [...] these instructions at home: Medicines ? Take [id number]-[id number] and prescription medicines only as told by [...] Where to find more information ? National [place] of Diabetes and Digestive and Kidney Diseases: (more content not included)... Normal [facility] Urology Office/Clinic Noteon 06-20-2023 Urology [...] recent PSA. Pt has been to the [facility] ER 3x since 06/10/23 w/ complaints of [...] of urine, unspecified) Pt has been to [facility] ER 3x since 06/10/23 w/ complaints of [...] Information URSULA WORKMAN, Mekhi Oh, URL [address] [place] [address]- Additional Instructions: Schedule cysto for b.t. check [...] BMI 27 (more content not included)... Normal [facility] Comment on above: Result Comment: Elec tronically Signed By: Mekhi VERGARA MD\.br\Date and Time Signed: 06/20/23 11:33 EST\.br\Electronically Co-Signed By: Silke Dupont\.br\Date and Time Co-Signed: 06/20/23 11:32 EST Office Visiton 03-07-2023 Follow-up visit [id number] Ben Guadalupe 1935 M Date Provider Department Center 03/07/2023 ANDREA GOLDSTEIN CONCHIS [place] Family History Problem Relation Age of Onset Heart failure Mother Prostate cancer Father Coronary artery disease Brother Prostate cancer Brother Family Status - Relation Status Age at Mother Father Brother Level of Service:53497 SD OFFICE/OUTPATIENT ESTABLISHED MOD MDM 30-39 MIN Normal [facility] POINT OF CARE GLUCOSEon 10-06 Glucose [Mass/Vol] 230 mg/dL Critically high 74-106 T [facility] Comment on above: Performed By: #### P SAD #### [facility] [address] [address] [address] Mason Astudillo Office Visiton 10-18-2022 Follow-up visit [id number] Ben Guadalupe 1935 M Date Provider Department Center 10/18/2022 NERISSA TESFAYE CONCHIS [place] Family History Problem Relation Age of Onset Heart failure Mother Prostate cancer Father Coronary artery disease Brother Prostate cancer Brother Family Status - Relation Status Age at Mother Father Brother Level of Service:58288 SD OFFICE/OUTPATIENT ESTABLISHED LOW MDM 20-29 MIN Reason for Visit and Comments: Coronary Artery Disease [187] Atrial Fibrillation [80] Normal [facility] ANESon 10-11-2022 ANES -------- Attestation signed [...] 10/11/22 09 Procedure: TRANSESOPHAGEAL ECHO (KINZA) Location: [facility] Vascular [...] fellow and attending. Additional Equipment Requests Normal [facility] HPon 10-11-2022 HP -------- Attestation signed [...] there are no changes to the H&P. [facility] 09-11-2022 [facility] Cardiology - [facility] Subjective Ben Guadalupe is a 86 [...] February 2022 he was admitted to the [facility] with palpitations and chest pain. He [...] lower le (more content not included)... Normal [facility] POINT OF CARE GLUCOSEon 01-0 Glucose [Mass/Vol] 203 mg/dL Critically high 74-106 T [facility] Comment on above: Performed By: #### U A #### [facility] [address] [place] [address] Dr. Mason QUIROZ POSTPROC EVALon 022 ANES POSTPROC EVAL HNO ID: [id number] Author: Kandice Guadalupe MD Service: ? Author Type: Physician Type: Anesthesia Postprocedure Evaluation Filed: 05/17/2022 2:13 PM Note Text: POST ANESTHESIA EVALUATION NOTE : 1935 Procedure Summary Date: 05/17/22 Room / Location: [address] [facility] Anesthesia Start: 954 Anesthesia [...] with this procedure. Documented by Minesh Levy APRN.ORDER PULLER 05/17/2022 12:02 PM EST SIGNATURE: Kandice Guadalupe MD PATIENT NAME: Ben Guadalupe DATE: May 17, 2022 TIME: 2:13 PM CSN: [id number] Normal [facility] ANES PRE-OPon 05-17-2022 ANES PRE-OP HNO ID: [id number] Author: Kandice Guadalupe MD Service: ? Author [...] Other hemorrhoids (+) PAF (paroxysmal atrial fibrillation) ([facility]) ENDO (+) Hypothyroidism unspecified GI (+) Gastroesophageal reflux disease with esophagitis -RENAL (+) Calculus of kidney (+) Chronic kidney disease, stage 4 (severe) ([facility]) NEURO-PSYCH (+) History of DVT (deep [...] and consent discussed: yes. Patient / Responsible Republican agrees to proceed: yes Patient / Surrogate [...] mcg/actuation na (more content not included)... Normal [facility] BRIEF OP NOTon 05-17-2022 BRIEF OP NOT HNO ID: [id number] Author: Tristin Wilcox MD, PhD Service: Colorectal Author Type: Physician Type: Brief Op Note Filed: 05/17/2022 11:34 AM Note Text: BRIEF OPERATIVE NOTE - COLORECTAL SURGERY Log ID: [id number] Surgery/Procedure Date: 05/17/2022 Incision/Procedure Start Time: 10:17 AM Incision Close/Procedure End Time: 11:27 AM Surgeon(s) and Insulation Batting Machine Operator(s): Surgeon(s) and Role: * Tristin [...] May 17, 2022 TIME: 11:30 AM Normal [facility] Gas and Carbon monoxide pane l (BldV)on 05-17-2022 BASE DEFICIT, VENOUS -2 mmol/L Normal -2-0 [facility] Comment on above: Order Comment: Speci men Type: VENOUS BLOOD SPECIMENOrdering Facility: [facility] Address: [address] [place] [address] Performed By: #### 2 4344-4 ####[facility] [id number] [address] STATES OF [facility] Body temperature 97.52 [degF] Normal [facility] Comment on above: Order Comment: Speci men Type: VENOUS BLOOD SPECIMENOrdering Facility: [facility] Address: [address] [place] [address] Performed By: #### 2 4344-4 ####[facility] [id number] [address] [place] Calcium.ionized (Bld) [Mass/Vol] 1.17 mmol/L Normal 1.08-1.30 [facility] Comment on above: Order Comment: Speci men Type: VENOUS BLOOD SPECIMENOrdering Facility: [facility] Address: [address] [place] [address] Performed By: #### 2 4344-4 ####[facility] [id number] [address] [place] Calcium.ionized adjusted to pH 7.4 (BldA) [Moles/Vol] 1.17 mmol/L Normal 1.08-1.30 [facility] Comment on above: Order Comment: Speci men Type: VENOUS BLOOD SPECIMENOrdering Facility: [facility] Address: [address] [place] [address] Performed By: #### 2 4344-4 ####[facility] [id number] [place] [address] [place] Carboxyhemoglobin (BldV) [Mass fraction] 1.4 % Normal 0.0-2.0 [facility] Comment on above: Order Comment: Speci men Type: VENOUS BLOOD SPECIMENOrdering Facility: [facility] Address: [address] [place] [address] Result Comment: Carb oxyhemoglobin Reference Range for Smokers: 2.0-8.0% Performed By: #### 2 4344-4 ####[facility] [id number] [place] [address] [place] CO2 (BldV) [Partial pressure] 37 mm[Hg] Low 42-55 [facility] Comment on above: Order Comment: Speci men Type: VENOUS BLOOD SPECIMENOrdering Facility: [facility] Address: [address] Performed By: #### 2 4344-4 ####[facility] [id number] [place] [address] [place] CO2 [Moles/Vol] 23 mmol/L Low 25-29 [facility] Comment on above: Order Comment: Speci men Type: VENOUS BLOOD SPECIMENOrdering Facility: [facility] Address: [address] Performed By: #### 2 4344-4 ####[facility] [id number] [place] [address] [place] CO2 adjusted to patient's actual temperature (BldV) [Partial pressure] 35 mmHg Low 42-55 [facility] Comment on above: Order Comment: Speci men Type: VENOUS BLOOD SPECIMENOrdering Facility: [facility] Address: [address] Performed By: #### 2 4344-4 ####[facility] [id number] [place] [address] [place] Glucose [Mass/Vol] 198 mg/dL High 60-105 [facility] Comment on above: Order Comment: Speci men Type: VENOUS BLOOD SPECIMENOrdering Facility: [facility] Address: [address] [place] [address] Performed By: #### 2 4344-4 ####[facility] [id number] [place] [address] [place] HCO3 (Bld) [Moles/Vol] 22 mmol/L Low 24-28 [facility] Comment on above: Order Comment: Speci men Type: VENOUS BLOOD SPECIMENOrdering Facility: [facility] Address: [address] [place] [address] Performed By: #### 2 4344-4 ####[facility] [id number] [place] [address] [place] Hematocrit (Bld) [Volume fraction] 36.4 % Low 39.0-51.0 [facility] Comment on above: Order Comment: Speci men Type: VENOUS BLOOD SPECIMENOrdering Facility: [facility] [facility] Address: [address] [place], [place] [address] Performed By: #### 2 4344-4 ####[facility] LABCLIA [id number] [place] [address] [place] Hemoglobin (Bld) [Mass/Vol] 11.8 g/dL Low 13.0-17.0 [facility] Comment on above: Order Comment: Speci men Type: VENOUS BLOOD SPECIMENOrdering Facility: [facility] Address: [address] [place], [place] [address] Performed By: #### 2 4344-4 ####[facility] LABCLIA [id number] [place] [address] [place] Lactate [Moles/Vol] 1.9 mmol/L Normal 0.5-2.2 [facility] Comment on above: Order Comment: Speci men Type: VENOUS BLOOD SPECIMENOrdering Facility: [facility] Address: [address] Performed By: #### 2 4344-4 ####[facility] LABCLIA [id number] [place] [address] [place] Methemoglobin (Bld) [Mass fraction] 1.1 % Normal 0.0-1.5 [facility] Comment on above: Order Comment: Speci men Type: VENOUS BLOOD SPECIMENOrdering Facility: [facility] Address: [address] Performed By: #### 2 4344-4 ####[facility] LABCLIA [id number] [address] [place] O2 THERAPY RA=Room Air Normal [facility] Comment on above: Order Comment: Speci men Type: VENOUS BLOOD SPECIMENOrdering Facility: [facility] Address: [address] Performed By: #### 2 4344-4 ####[facility] LABCLIA [id number] [place] [address] [place] Oxygen (BldV) [Partial pressure] 50 mm[Hg] High 35-45 [facility] Comment on above: Order Comment: Speci men Type: VENOUS BLOOD SPECIMENOrdering Facility: [facility] Address: [address] Performed By: #### 2 4344-4 ####[facility] LABCLIA [id number] [place] [address] [place] Oxygen adjusted to patient's actual temperature (BldV) [Partial pressure] 48 mmHg High 35-45 [facility] Comment on above: Order Comment: Speci men Type: VENOUS BLOOD SPECIMENOrdering Facility: [facility] Address: [address] Performed By: #### 2 4344-4 ####[facility] LABCLIA [id number] [place] [address] [place] Oxygen saturation in Venous blood 82 % Normal 60-85 [facility] Comment on above: Order Comment: Speci men Type: VENOUS BLOOD SPECIMENOrdering Facility: [facility] Address: [address] [place] [address] Performed By: #### 2 4344-4 ####[facility] LABCLIA [id number] [place] [address] [place] Oxyhemoglobin (BldV) [Mass fraction] 80 % Normal 60-85 [facility] Comment on above: Order Comment: Speci men Type: VENOUS BLOOD SPECIMENOrdering Facility: [facility] Address: [address] [place] [address] Performed By: #### 2 4344-4 ####[facility] LABCLIA [id number] [place] [address] [place] pH (BldV) 7.39 [pH] Normal 7.32-7.42 [facility] Comment on above: Order Comment: Speci men Type: VENOUS BLOOD SPECIMENOrdering Facility: [facility] Address: [address] [place], [place] [address] Performed By: #### 2 4344-4 ####[facility] LABCLIA [id number] [place] [address] [place] pH adjusted to patient's actual temperature (BldV) 7.40 Normal 7.32-7.42 [facility] Comment on above: Order Comment: Speci men Type: VENOUS BLOOD SPECIMENOrdering Facility: [facility] Address: [address] [place], [place] [address] Performed By: #### 2 4344-4 ####[facility] LABCLIA [id number] [place] [address] [place] Potassium [Moles/Vol] 2.9 mmol/L Low 3.5-5.0 [facility] Comment on above: Order Comment: Speci men Type: VENOUS BLOOD SPECIMENOrdering Facility: [facility] Address: [address] [facility] [place] [id number] Performed By: #### 2 4344-4 ####[facility] LABCLIA [id number] [address] [place] Sodium [Moles/Vol] 137 mmol/L Normal 136-144 [facility] Comment on above: Order Comment: Speci men Type: VENOUS BLOOD SPECIMENOrdering Facility: [facility] Address: [place] [address] Performed By: #### 2 4344-4 ####[facility] LABIA [id number] [place] [address] [place] OPERATIVE NOon 05-17-2022 OPERATIVE NO HNO ID: [id number] Author: Tristin Wilcox MD, PhD Service: Colorectal Author Type: Physician Type: Operative Report Filed: 05/31/2022 2:52 PM Note Text: OPERATIVE REPORT LOG ID: [id number] SURGERY DATE: 05/17/2022 INCISION/PROCEDURE START TIME: 10:17 AM INCISION CLOSE/PROCEDURE END TIME: 11:27 AM PREOPERATIVE DIAGNOSIS: Prolapsing, symptomatic, large internal and external hemorrhoids. Colonic polyps. POSTOPERATIVE DIAGNOSIS: Grade 4; Prolapsing, symptomatic, large internal and external hemorrhoids. Colonic polyps. Surgeon(s)/Proceduralist(s) and Insulation Batting Machine Operator(s): Surgeon(s) and Role: * Tristin [...] with assistance. PATIENT NAME: Ben Guadalupe Normal [facility] POTASSIUM BLDon 05-17-2022 Potassium [Moles/Vol] 3.0 mmol/L Low 3.7-5.1 [facility] Comment on above: Order Comment: Speci men Type: BLOOD SPECIMENOrdering Facility: [facility] Address: [address] [place] [address] Performed By: #### K 1 ####[facility] LABCLIA [id number] [facility] [id number] [place] [address] OF [facility] SURGICAL PATHOLOGYon CASE REPORT Normal [facility] Comment on above: Order Comment: Speci men Type: TISSUE SPECIMENOrdering Facility: [facility] Address: [address] [place] [address] Result Comment: Surg ical Pathology Report Case: [id number] Authorizing Provider: Tristin Wilcox, Collected: 05/17/2022 10:25 AM , PhD Ordering Location: Admitting Received: 05/17/2022 01:44 PM Pathologist: Daryn June MD Specimens: A) - COLON POLYP, RIGHT COLON POLYP B) - COLON POLYP, LEFT COLON POLYP C) - RECTAL POLYP D) - HEMORRHOID, left lateral E) - HEMORRHOID, right posterior Performed By: #### S ####[facility] LABCLIA [id number] [address] LABCLIA [id number] [address] CLINICAL HISTORY Normal [facility] Comment on above: Order Comment: Speci men Type: TISSUE SPECIMENOrdering Facility: [facility] Address: [address] [place] [address] Result Comment: Pre- op diagnosis: Fourth degree hemorrhoids [K64.3] Performed By: #### S ####[facility] LABCLIA [id number] [address] LABCLIA [id number] [address] FINAL DIAGNOSIS Normal [facility] Comment on above: Order Comment: Speci men Type: TISSUE SPECIMENOrdering Facility: [facility] Address: [address] [place] [address] Result Comment: A. C olon, right, polyp, biopsy: - Tubular adenoma. B. Colon, left, polyp, biopsy: - Tubular adenoma. C. Rectum, polyp, biopsy: - Tubular adenoma. D. Anus, left lateral, hemorrhoid, excision: - Fibroepithelial polyp. E. Anus, right posterior, hemorrhoid, excision: - Dilated hemorrhoidal varices. Performed By: #### S ####[facility] LABCLIA [id number] [address] LABCLIA [id number] [address] FINAL PERFORMING LAB Normal [facility] Comment on above: Order Comment: Speci men Type: TISSUE SPECIMENOrdering Facility: [facility] Address: [address] [place] [address] Result Comment: Diag nostic interpretation performed at [facility], [address] [place] [address] CLIA# [id number] Health And Wellness Director: Nga Schultz M.D. Performed By: #### S ####[facility] LABCLIA [id number] [address] OF [facility] LABCLIA [id number] [address] GROSS DESCRIPTION A. COLON POLYP Normal [facility] Comment on above: Order Comment: Speci men Type: TISSUE SPECIMENOrdering Facility: [facility] Address: [address] [place] [address] Result Comment: Rece ived in formalin is [...] 0.1 cm. Totally submitted in one cassette. [facility] May 17, 2022 3:41 PM Gross examination performed at [facility], [address] [place] [address] D. HEMORRHOID Received fresh designated left lateral is a cason-busby portion of skin that measures 4.5 x 1.5 x 1 cm. Sectioning through the specimen reveals hemorrhagic cut surfaces. Custodial Foreman sections are submitted in 1 cassette. WE May 17, 2022 3:17 PM Gross examination performed at [facility], [facility] [place] [address] E. HEMORRHOID Received fresh designated right posterior is a pink-cason portion of skin that measures 3.9 x 0.6 x 0.6 cm. Sectioning through the specimen reveals hemorrhagic cut surfaces. Custodial Foreman sections are submitted in 1 cassette. WE May 17, 2022 3:19 PM Gross examination performed at [facility], [address] [place] [address] Performed By: #### S ####[facility] LABCLIA [id number] [address] LABCLIA [id number] [facility] AVENUEDESK [id number] [place] [address] Oralia 05-16-2022 CADY Telephone (KADIE) BEN GUADALUPE ([id number]) 1935 M Date Time Provider Department 05/16/22 [...] Status:Closed by DELICIA FULLER on 05/16/22 Normal [facility] Telephone (CORN) BEN GUADALUPE ([id number]) 1935 M Date Time Provider Department 05/16/22 [...] PA-C - Fully Assessed 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] Prescriptions as of 05/16/2022 [...] by MARIA LUISA GARCIA on 05/16/22 Normal [facility] CBC panel Auto (Bld)on 05-10 Erythrocyte distribution width (RBC) [Ratio] 14.1 % Normal 11.5-15.0 [facility] Comment on above: Order Comment: Mayito borden Type: BLOOD SPECIMENOrdering Facility: [facility] Address: [address] [place] [address] Performed By: #### 5 8410-2 ####[facility] LABCLIA [id number] [place] [address] [place] Hematocrit (Bld) [Volume fraction] 38.9 % Low 39.0-51.0 [facility] Comment on above: Order Comment: Theoi suha Type: BLOOD SPECIMENOrdering Facility: [facility] Address: [address] [place] [address] Performed By: #### 5 8410-2 ####[facility] LABCLIA [id number] [place] [address] [place] Hemoglobin (Bld) [Mass/Vol] 12.2 g/dL Low 13.0-17.0 [facility] Comment on above: Order Comment: Speci men Type: BLOOD SPECIMENOrdering Facility: [facility] Address: [address] [place], [place] [address] Performed By: #### 5 8410-2 ####[facility] LABIA [id number] [address] MCH (RBC) [Entitic mass] 28.4 pg Normal 26.0-34.0 [facility] Comment on above: Order Comment: Speci men Type: BLOOD SPECIMENOrdering Facility: [facility] Address: [address] [place] [address] Performed By: #### 5 8410-2 ####[facility] LABIA [id number] [address] [place] MCHC (RBC) [Mass/Vol] 31.4 g/dL Normal 30.5-36.0 [facility] Comment on above: Order Comment: Speci men Type: BLOOD SPECIMENOrdering Facility: [facility] Address: [address] [place], [place] [address] Performed By: #### 5 8410-2 ####[facility] LABIA [id number] [address] [place] MCV (RBC) [Entitic vol] 90.5 fL Normal 80.0-100.0 [facility] Comment on above: Order Comment: Speci men Type: BLOOD SPECIMENOrdering Facility: [facility] Address: [address] [place], [place] [address] Performed By: #### 5 8410-2 ####[facility] LABIA [id number] [address] [place] Nucleated RBC (Bld) [#/Vol] 10*3/uL Normal <0.01 [facility] Comment on above: Order Comment: Speci men Type: BLOOD SPECIMENOrdering Facility: [facility] Address: [address] [place] [address] Performed By: #### 5 8410-2 ####[facility] LABCLIA [id number] [place] [address] [place] Platelet mean volume (Bld) [Entitic vol] 10.9 fL Normal 9.0-12.7 [facility] Comment on above: Order Comment: Speci men Type: BLOOD SPECIMENOrdering Facility: [facility] Address: [address] [place], [place] [address] Performed By: #### 5 8410-2 ####[facility] LABCLIA [id number] [place] [address] [place] Platelets (Bld) [#/Vol] 135 10*3/uL Low 150-400 [facility] Comment on above: Order Comment: Speci men Type: BLOOD SPECIMENOrdering Facility: [facility] Address: [address] [place], [place] [address] Performed By: #### 5 8410-2 ####[facility] LABIA [id number] [place] [address] [place] RBC (Bld) [#/Vol] 4.30 10*6/uL Normal 4.20-6.00 [facility] Comment on above: Order Comment: Speci men Type: BLOOD SPECIMENOrdering Facility: [facility] Address: [address] [place] [address] Performed By: #### 5 8410-2 ####[facility] LABCLIA [id number] [place] [address] [place] WBC (Bld) [#/Vol] 4.75 10*3/uL Normal 3.70-11.00 [facility] Comment on above: Order Comment: Speci men Type: BLOOD SPECIMENOrdering Facility: [facility] Address: [address] [place], [place] [address] Performed By: #### 5 8410-2 ####[facility] LABCLIA [id number] [address] [place] CONFIRM BLOOD TYPEon 022 ABO A Normal [facility] Comment on above: Order Comment: Speci men Type: BLOOD SPECIMENOrdering Facility: [facility] Address: [address] [place] [address] Performed By: #### C ONABO ####[facility] BLOOD BANKCLIA [id number] [place] [address] [place] Rh Nom (Bld) Negative Normal [facility] Comment on above: Order Comment: Speci men Type: BLOOD SPECIMENOrdering Facility: [facility] Address: [address] [place] [address] Performed By: #### C ONABO ####[facility] BLOOD BANKCLIA [id number] [place] [address] [place] Comprehensive metabolic 2000 panelon 05-10-2022 Albumin [Mass/Vol] 4.4 g/dL Normal 3.9-4.9 [facility] Comment on above: Order Comment: Speci men Type: BLOOD SPECIMENOrdering Facility: [facility] Address: [address] [place] [address] Performed By: #### 2 4323-8 ####[facility] LABCLIA [id number] [place] [address] [place] ALP [Catalytic activity/Vol] 54 U/L Normal 38-113 [facility] Comment on above: Order Comment: Speci men Type: BLOOD SPECIMENOrdering Facility: [facility] Address: [address] [place], [place] [address] Performed By: #### 2 4323-8 ####[facility] LABCLIA [id number] [place] [address] [place] ALT [Catalytic activity/Vol] 55 U/L High 10-54 [facility] Comment on above: Order Comment: Speci men Type: BLOOD SPECIMENOrdering Facility: [facility] Address: [address] [place], [place] [address] Performed By: #### 2 4323-8 ####[facility] LABCLIA [id number] [place] [address] [place] Anion gap [Moles/Vol] 12 mmol/L Normal 9-18 [facility] Comment on above: Order Comment: Speci men Type: BLOOD SPECIMENOrdering Facility: [facility] Address: [address] [place] [address] Performed By: #### 2 4323-8 ####[facility] LABCLIA [id number] [place] [address] [place] AST [Catalytic activity/Vol] 27 U/L Normal 14-40 [facility] Comment on above: Order Comment: Speci men Type: BLOOD SPECIMENOrdering Facility: [facility] Address: [address] [place], [place] [address] Performed By: #### 2 4323-8 ####[facility] LABCLIA [id number] [place] [address] [place] Bilirubin [Mass/Vol] 0.3 mg/dL Normal 0.2-1.3 [facility] Comment on above: Order Comment: Speci men Type: BLOOD SPECIMENOrdering Facility: [facility] Address: [address] Performed By: #### 2 4323-8 ####[facility] LABCLIA [id number] [place] [address] [place] Calcium [Mass/Vol] 9.1 mg/dL Normal 8.5-10.2 [facility] Comment on above: Order Comment: Speci men Type: BLOOD SPECIMENOrdering Facility: [facility] Address: [address] [place], [place] [address] Performed By: #### 2 4323-8 ####[facility] LABCLIA [id number] [address] [place] Chloride [Moles/Vol] 100 mmol/L Normal 97-105 [facility] Comment on above: Order Comment: Speci men Type: BLOOD SPECIMENOrdering Facility: [facility] Address: [address] [place] [address] Performed By: #### 2 4323-8 ####[facility] LABCLIA [id number] [address] OF [facility] CO2 [Moles/Vol] 29 mmol/L Normal 22-30 [facility] Comment on above: Order Comment: Speci men Type: BLOOD SPECIMENOrdering Facility: [facility] Address: [address] [place] [address] Performed By: #### 2 4323-8 ####[facility] LABIA [id number] [address] STATES OF [facility] Creatinine [Mass/Vol] 1.09 mg/dL Normal 0.73-1.22 [facility] Comment on above: Order Comment: Speci men Type: BLOOD SPECIMENOrdering Facility: [facility] Address: [address] [place] [address] Performed By: #### 2 4323-8 ####[facility] LABIA [id number] [address] OF [facility] ESTIMATED GLOMERULAR FILTRATION RATE 67 mL/min/1.73m??? Normal >=60 [facility] Comment on above: Order Comment: Speci men Type: BLOOD SPECIMENOrdering Facility: [facility] Address: [address] [place] [address] Result Comment: [place] mated Glomerular Filtration Rate [...] actual GFR. Performed By: #### 2 4323-8 ####[facility] LABCLIA [id number] [place] [address] [place] Glucose [Mass/Vol] 217 mg/dL High 74-99 [facility] Comment on above: Order Comment: Speci men Type: BLOOD SPECIMENOrdering Facility: [facility] Address: [address] [place] [address] Result Comment: The [place] Diabetes Association (ADA) provides guidance for cutoff [...] Standards of Medical Care in Diabetes 2016, [place] Diabetes Association. Diabetes Care. 2016.39(Suppl 1). Performed By: #### 2 4323-8 ####[facility] LABIA [id number] [place] [address] [place] Potassium [Moles/Vol] 3.2 mmol/L Low 3.7-5.1 [facility] Comment on above: Order Comment: Speci men Type: BLOOD SPECIMENOrdering Facility: [facility] Address: [address] [place] [address] Performed By: #### 2 4323-8 ####[facility] LABIA [id number] [place] [address] [place] Protein [Mass/Vol] 6.4 g/dL Normal 6.3-8.0 [facility] Comment on above: Order Comment: Speci men Type: BLOOD SPECIMENOrdering Facility: [facility] Address: [address] [place] [address] Performed By: #### 2 4323-8 ####[facility] LABCLIA [id number] [place] [address] [place] Sodium [Moles/Vol] 141 mmol/L Normal 136-144 [facility] Comment on above: Order Comment: Speci men Type: BLOOD SPECIMENOrdering Facility: [facility] Address: [address] [place] [address] Performed By: #### 2 4323-8 ####[facility] LABCLIA [id number] [place] [address] [place] Urea nitrogen [Mass/Vol] 26 mg/dL High 9-24 [facility] Comment on above: Order Comment: Speci men Type: BLOOD SPECIMENOrdering Facility: [facility] Address: [address] [place] [address] Performed By: #### 2 4323-8 ####[facility] LABCLIA [id number] [address] [place] ECG COMPLETEon 05-10-2022 ECG COMPLETE Ventricular Rate : 7 6 BPM Atrial Rate : 76 BPM P-R Interval : 130 ms QRS Duration : 134 ms Q-T Interval : 442 ms QTC Calculation(Bazett) : 497 ms Calculated P Hometown : 37 degrees Calculated R Hometown : 64 degrees Calculated T Hometown : -10 degrees NORMAL SINUS RHYTHM COMPLETE RIGHT BUNDLE BRANCH BLOCK INFERIOR T WAVE ABNORMALITY ABNORMAL ECG Confirmed by YENNI TANNER MD ([id number]) on 05/14/2022 7:11:13 PM NAME : BEN GUADALUPE PID : [id number] : 1935 Gender : Male Race : ORD : [id number] Procedure Date : May 10 2022 11:57:54 Edit Date : May 14 2022 19:11:14 Diagnosis: NORMAL SINUS RHYTHM COMPLETE RIGHT BUNDLE BRANCH BLOCK INFERIOR T WAVE ABNORMALITY ABNORMAL ECG Confirmed by YENNI TANNER MD ([id number]) on 05/14/2022 7:11:13 PM Test Reason : Location : 119 : A17 Overread By : YENNI TANNER MD Edited By : YENNI TANNER MD Referred By : TRISTIN WILCOX Acquired by : CHANELLE FRANKLIN [facility] HISTORY PHYSICALon HISTORY PHYSICAL HNO ID: [id number] Author: Afia Downing PA-C Service: ? Author Type: Physician Insulation Batting Machine Operator Type: HANDP Filed: 05/13/2022 10:05 [...] disease (HCC) 11/27/2021 Deep vein thrombosis (DVT) ([facility]) 1989 LLE- unprovoked Dementia in other diseases classified elsewhere, unspecified severity, without behavioral disturbance, psychotic disturbance, mood disturbance, and anxiety ([facility]) 11/27/2021 Diabetes ([facility]) Diabetes mellitus ([facility]) 11/01/2021 Essential (primary) hypertension 08/13/2017 Gastroesophageal reflux disease with esophagitis 05/10/2022 History of DVT (deep vein thrombosis) 05/10/2022 History of primary malignant neoplasm of urinary bladder 04/22/2022 History of prostate cancer 08/01/2015 Hypothyroidism unspecified 07/10/2021 Intracranial hemorrhage ([facility]) 05/10/2022 Neuropathy PAF (paroxysmal atrial fibrillation) ([facility]) 03/18/2022 Parkinson's disease ([facility]) PONV (postoperative nausea and vomiting) Radiculopathy, [...] capsule Take (more content not included)... Normal [facility] HbA1c (Bld)on 05-10-2022 Average glucose Estimated from glycated hemoglobin (Bld) [Mass/Vol] 151 mg/dL Normal [facility] Comment on above: Order Comment: Mayito borden Type: BLOOD SPECIMENOrdering Facility: [facility] Address: [address] [place] [address] Result Comment: eAG: (Estimated average glucose) is a calculated value from HgbA1c and is payable representative of the average blood glucose level in the last 2-3 month period. Performed By: #### 5 5454-3 ####[facility] LABIA [id number] [address] STATES OF [facility] HbA1c (Bld) [Mass fraction] 6.9 % High 4.3-5.6 [facility] Comment on above: Order Comment: Mayito borden Type: BLOOD SPECIMENOrdering Facility: [facility] Address: [address] [address] Result Comment: [place] Diabetes Association guidelines indicate that patients with HgbA1c in the range 5.7-6.4% are at increased risk for development of diabetes, and intervention by lifestyle modification may be beneficial. HgbA1c greater or equal to 6.5% is considered diagnostic of diabetes. Performed By: #### 5 5454-3 ####[facility] LABCLIA [id number] [address] [place] TYPE AND SCREEN,30 DAYon ABO A Normal [facility] Comment on above: Order Comment: Mayito borden Type: BLOOD SPECIMENOrdering Facility: [facility] Address: [address] [address] Performed By: #### T SCR30 ####CC [facility] BLOOD BANKIA [id number] [address] HISTORICAL AB SCR STATUS Negative Normal [facility] Comment on above: Order Comment: Speci men Type: BLOOD SPECIMENOrdering Facility: [facility] Address: [address] [address] Performed By: #### T SCR30 ####CC MAIN BLOOD BANKCLIA [id number] [address] Rh Nom (Bld) Negative Normal [facility] Comment on above: Order Comment: Speci men Type: BLOOD SPECIMENOrdering Facility: [facility] Address: [address] [address] Performed By: #### T SCR30 ####CC MAIN BLOOD BANKCLIA [id number] [address] [place] 04-25-2022 CADY Telephone (KADIE) BEN GUADALUPE ([id number]) 1935 M Date Time Provider Department 04/25/22 [...] Reason for Visit: Returning Patient's Call [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 Normal [facility] Flexible Sigmoidoscopyon Flexible sigmoidoscopy A30 Gastrointestinal Endoscopy [...] previous diet. Procedure Code(s): --- Professional --- 01559, Sigmoidoscopy, flexible; diagnostic, including collection of specimen(s) by brushing or washing, when performed (separate procedure) Diagnosis Code(s): --- Professional --- K64.3, Fourth degree hemorrhoids K62.1, Rectal polyp K92.1, Melena (includes Hematochezia) K57.30, Diverticulosis of large intestine without perforation or abscess without bleeding CPT copyright 2019 [employer]. All rights reserved. The codes documented in this report are preliminary and upon metal control worker review may be revised to meet current compliance requirements. Attending Participation: I personally performed the entire procedure. Scope In: Scope Out: Dr. Tristin Wilcox MD 04/17/2022 2:21:53 PM This report has been signed electronically. Number of Addenda: 0 Note Initiated On: 04/17/2022 1:38 PM Normal [facility] HISTORY PHYSICALon HISTORY PHYSICAL HNO ID: [id number] Author: Tristin Wilcox MD, PhD Service: ? [...] PACC s (more content not included)... Normal [facility] SIGMOIDOSCOPYon 04-17-2022 [facility] POINT OF CARE GLUCOSEon 04-06 Glucose [Mass/Vol] 268 mg/dL Critically high 74-106 [facility] Comment on above: Performed By: #### P OCGLUC #### [facility] [address] [address] [address] Mason Astudillo CBC AUTO DIFFon 04-11-2022 BASO # 0.0 103/ul Normal 0.0-0.1 [facility] Comment on above: Performed By: #### U A #### [facility] [address] [address] [address] Mason Astudillo Basophils/100 WBC (Bld) 0.4 % Normal 0.2-2.0 [facility] Comment on above: Performed By: #### U A #### [facility] [address] [address] [address] Mason Astudillo EO # 0.1 103/ul Normal 0.0-0.7 [facility] Comment on above: Performed By: #### U A #### [facility] [address] [place] [address] Dr. Mason Astudillo Eosinophils/100 WBC (Bld) 1.9 % Normal 0.9-7.0 [facility] Comment on above: Performed By: #### U A #### [facility] [address] [place] [address] Dr. Mason Astudillo Erythrocyte distribution width (RBC) [Ratio] 16.0 % Critically high 11.0-15.0 [facility] Comment on above: Performed By: #### U A #### [facility] [address] [place] [address] Dr. Mason Astudillo Hematocrit (Bld) [Volume fraction] 27.4 % Critically low 42.0-54.0 [facility] Comment on above: Performed By: #### U A #### [facility] [address] [place] [address] Dr. Mason Astudillo Hemoglobin (Bld) [Mass/Vol] 8.7 g/dL Critically low 14.0-18.0 [facility] Comment on above: Performed By: #### U A #### [facility] [address] [place] [address] Dr. Mason Astudillo IG # 0.03 10e3/ul Normal 0.00-0.03 [facility] Comment on above: Performed By: #### U A #### [facility] [address] [place] [address] Dr. Mason Astudillo IG % 0.6 % Critically high 0.0-0.5 [facility] Comment on above: Performed By: #### U A #### [facility] [address] [place] [address] Dr. Mason Astudillo LYMPH # 0.7 103/ul Critically low 1.2-3.8 [facility] Comment on above: Performed By: #### U A #### [facility] [address] [place] [address] Dr. Mason Astudillo Lymphocytes/100 WBC (Bld) 15.8 % Critically low 20.5-60.0 [facility] Comment on above: Performed By: #### U A #### [facility] [address] [place] [address] Dr. Mason Astudillo MANUAL DIFF REQ NO Normal [facility] Comment on above: Performed By: #### U A #### [facility] [address] [place] [address] Dr. Mason Astudillo MCH (RBC) [Entitic mass] 29.9 pg Normal 25.9-34.0 [facility] Comment on above: Performed By: #### U A #### [facility] [address] [place] [address] Dr. Mason Astudillo MCHC (RBC) [Mass/Vol] 31.8 g/dL Normal 29.9-35.2 [facility] Comment on above: Performed By: #### U A #### [facility] [address] [place] [address] Dr. Mason Astudillo MCV (RBC) [Entitic vol] 94.2 fL Critically high 80.0-94.0 [facility] Comment on above: Performed By: #### U A #### [facility] [address] [place] [address] Dr. Mason Astudillo MONO # 0.3 103/ul Normal 0.3-0.8 [facility] Comment on above: Performed By: #### U A #### [facility] [address] [place] [address] Dr. Mason Astudillo Monocytes/100 WBC (Bld) 6.9 % Normal 1.7-12.0 [facility] Comment on above: Performed By: #### U A #### [facility] [address] [place] [address] Dr. Mason Astudillo NEUT # 3.4 103/ul Normal 1.4-6.5 [facility] Comment on above: Performed By: #### U A #### [facility] [address] [place] [address] Dr. Mason Astudillo Neutrophils/100 WBC (Bld) 74.4 % Normal 43.0-75.0 [facility] Comment on above: Performed By: #### U A #### [facility] [address] [place] [address] Dr. Mason Astudillo Platelet mean volume (Bld) [Entitic vol] 10.6 fL Normal 9.5-13.5 [facility] Comment on above: Performed By: #### U A #### [facility] [address] [place] [address] Dr. Mason Astudillo PLT 117 103/ul Critically low 150-450 [facility] Comment on above: Performed By: #### U A #### [facility] [address] [place] [address] Dr. Mason Astudillo RBC 2.91 106/ul Critically low 4.70-6.10 [facility] Comment on above: Performed By: #### U A #### [facility] [address] [place] [address] Dr. Mason Astudillo WBC 4.6 103/ul Normal 4.0-11.0 [facility] Comment on above: Performed By: #### U A #### [facility] [address] [place] [address] Dr. Mason Astudillo CARDIAC STRESS TESTon 2021 [...] be dictated separately by Radiology. Normal [facility] NM STRESS/REST MULTIon 03-26 NM STRESS/REST MULTI Patient: BEN GUADALUPE Exam Date: 03/26/2022 : 1935 Gender:M Ordering : DR KAVITA DANIELLE M.D. Admission #: [id number] Family : Order #: [id number] CLICK HERE TO VIEW EXAM RADIOLOGY REPORT [...] MD on 03/27/2022 at 08:14 Normal [facility] CBC AUTO DIFFon 03-18-2022 BASO # 0.0 103/ul Normal 0.0-0.1 [facility] Comment on above: Performed By: #### P OCGLUC #### [facility] [address] [address] [address] Mason Astudillo Basophils/100 WBC (Bld) 0.5 % Normal 0.2-2.0 [facility] Comment on above: Performed By: #### P OCGLUC #### [facility] [address] [address] [address] Mason Astudillo EO # 0.1 103/ul Normal 0.0-0.7 [facility] Comment on above: Performed By: #### P OCGLUC #### [facility] [address] [place] [address] Dr. Mason Astudillo Eosinophils/100 WBC (Bld) 2.3 % Normal 0.9-7.0 [facility] Comment on above: Performed By: #### P OCGLUC #### [facility] [address] [address] [address] Mason Astudillo Erythrocyte distribution width (RBC) [Ratio] 17.2 % Critically high 11.0-15.0 [facility] Comment on above: Performed By: #### P OCGLUC #### [facility] [address] [place] [address] Dr. Mason Astudillo Hematocrit (Bld) [Volume fraction] 43.9 % Normal 42.0-54.0 [facility] Comment on above: Performed By: #### P OCGLUC #### [facility] [address] [place] [address] Dr. Mason Astudillo Hemoglobin (Bld) [Mass/Vol] 14.1 g/dL Normal 14.0-18.0 [facility] Comment on above: Performed By: #### P OCGLUC #### [facility] [address] [place] [address] Dr. Mason Astudillo IG # 0.04 10e3/ul Critically high 0.00-0.03 [facility] Comment on above: Performed By: #### P OCGLUC #### [facility] [address] [address] [address] Mason Astudillo IG % 0.7 % Critically high 0.0-0.5 [facility] Comment on above: Performed By: #### P OCGLUC #### [facility] [address] [address] [address] Mason Astudillo LYMPH # 1.1 103/ul Critically low 1.2-3.8 [facility] Comment on above: Performed By: #### P OCGLUC #### [facility] [address] [address] [address] Mason Astudillo Lymphocytes/100 WBC (Bld) 18.3 % Critically low 20.5-60.0 [facility] Comment on above: Performed By: #### P OCGLUC #### [facility] [address] [place] [address] Dr. Mason Astudillo MANUAL DIFF REQ NO Normal [facility] Comment on above: Performed By: #### P OCGLUC #### [facility] [address] [place] [address] Dr. Mason Astudillo MCH (RBC) [Entitic mass] 29.3 pg Normal 25.9-34.0 [facility] Comment on above: Performed By: #### P OCGLUC #### [facility] [address] [place] [address] Dr. Mason Astudillo MCHC (RBC) [Mass/Vol] 32.1 g/dL Normal 29.9-35.2 [facility] Comment on above: Performed By: #### P OCGLUC #### [facility] [address] [place] [address] Dr. Mason Astudillo MCV (RBC) [Entitic vol] 91.1 fL Normal 80.0-94.0 [facility] Comment on above: Performed By: #### P OCGLUC #### [facility] [address] [place] [address] Dr. Mason Astudillo MONO # 0.5 103/ul Normal 0.3-0.8 [facility] Comment on above: Performed By: #### P OCGLUC #### [facility] [address] [address] [address] Mason Astudillo Monocytes/100 WBC (Bld) 7.7 % Normal 1.7-12.0 [facility] Comment on above: Performed By: #### P OCGLUC #### [facility] [address] [address] [address] Mason Astudillo NEUT # 4.3 103/ul Normal 1.4-6.5 [facility] Comment on above: Performed By: #### P OCGLUC #### [facility] [address] [address] [address] Mason Astudillo Neutrophils/100 WBC (Bld) 70.5 % Normal 43.0-75.0 [facility] Comment on above: Performed By: #### P OCGLUC #### [facility] [address] [place] [address] Dr. Mason Astudillo Platelet mean volume (Bld) [Entitic vol] 9.9 fL Normal 9.5-13.5 [facility] Comment on above: Performed By: #### P OCGLUC #### [facility] [address] [address] [address] Mason Astudillo PLT 130 103/ul Critically low 150-450 [facility] Comment on above: Performed By: #### P OCGLUC #### [facility] [address] [place] [address] Dr. Mason Astudillo RBC 4.82 106/ul Normal 4.70-6.10 [facility] Comment on above: Performed By: #### P OCGLUC #### [facility] [address] [place] [address] Dr. Mason Astudillo WBC 6.1 103/ul Normal 4.0-11.0 [facility] Comment on above: Performed By: #### P OCGLUC #### [facility] [address] [place] [address] Dr. Mason Astudillo PROF CHEM 8 (BAS METB)on Anion gap [Moles/Vol] 10.8 mmol/L Normal [facility] Comment on above: Performed By: #### U A #### [facility] [address] [address] [address] Mason Astudillo Calcium [Mass/Vol] 8.8 mg/dL Normal 8.5-10.1 [facility] Comment on above: Performed By: #### U A #### [facility] [address] [address] [address] Mason Astudillo Chloride [Moles/Vol] 103 mmol/L Normal 98-107 [facility] Comment on above: Performed By: #### U A #### [facility] [address] [address] [address] Mason Astudillo CO2 [Moles/Vol] 29.9 mmol/L Normal 21.0-32.0 [facility] Comment on above: Performed By: #### U A #### [facility] [address] [place] [address] Dr. Mason Astudillo Creatinine [Mass/Vol] 1.20 mg/dL Normal 0.70-1.30 [facility] Comment on above: Performed By: #### U A #### [facility] [address] [address] [address] Mason Astudillo EGFR-AF TURKMEN >60 Normal >=60 [facility] Comment on above: Performed By: #### U A #### [facility] [address] [place] [address] Dr. Mason Astudillo EGFR-NON AF TURKMEN 58 mL/min/1.73m2 Critically low >=60 [facility] Comment on above: Performed By: #### U A #### [facility] [address] [place] [address] Dr. Mason Astudillo Glucose [Mass/Vol] 202 mg/dL Critically high 74-106 [facility] Comment on above: Performed By: #### U A #### [facility] [address] [address] [address] Mason Astudillo Potassium [Moles/Vol] 3.7 mmol/L Normal 3.5-5.1 [facility] Comment on above: Performed By: #### U A #### [facility] [address] [place] [address] Dr. Mason Astudillo Sodium [Moles/Vol] 140 mmol/L Normal 136-145 [facility] Comment on above: Performed By: #### U A #### [facility] [address] [address] [address] Mason Astudillo Urea nitrogen [Mass/Vol] 22.0 mg/dL Critically high 7.0-18.0 [facility] Comment on above: Performed By: #### U A #### [facility] [address] [address] [address] Mason Astudillo Urea nitrogen/Creatinine [Mass ratio] 18.3 mg/mg Normal [facility] Comment on above: Performed By: #### U A #### [facility] [address] [address] [address] Mason Astudillo XR KUB 1 VIEWon [...] BRISA SALAS Date: 2022-02-18 15:45 Normal [facility] VIT D 25-OH LABCORPon 2021 Vitamin D, 25-Hydroxy 27.3 ng/mL Critically low 30.0-100.0 [facility] Comment on above: Result Comment: Masha min D deficiency has been defined by the [place] [employer] and an Endocrine Society practice guideline as a level of serum 25-OH vitamin D less than 20 ng/mL (1,2). The Endocrine Society went on to further define vitamin D insufficiency as a level between 21 and 29 ng/mL (2). 1. IOM ([place] [employer]). 2010. Dietary reference intakes for calcium and D. [place]: The National Academies Press. 2. Hemalatha MF, [place], Kamla ROUSE, et al. Evaluation, treatment, and prevention of vitamin D deficiency: an Endocrine Society clinical practice guideline. JCEM. 2010; 96(6):1911-30. Performed By: #### A 1C #### [facility] [address] [place] [address] Dr. Mason Astudillo CBC AUTO DIFFon 02-06-2022 BASO # 0.0 103/ul Normal 0.0-0.1 [facility] Comment on above: Performed By: #### A 1C #### [facility] [address] [address] [address] Mason Astudillo Basophils/100 WBC (Bld) 0.4 % Normal 0.2-2.0 [facility] Comment on above: Performed By: #### A 1C #### [facility] [address] [place] [address] Dr. Mason Astudillo EO # 0.1 103/ul Normal 0.0-0.7 [facility] Comment on above: Performed By: #### A 1C #### [facility] [address] [place] [address] Dr. Mason Astudillo Eosinophils/100 WBC (Bld) 2.5 % Normal 0.9-7.0 [facility] Comment on above: Performed By: #### A 1C #### [facility] [address] [place] [address] Dr. Mason Astudillo Erythrocyte distribution width (RBC) [Ratio] 16.6 % Critically high 11.0-15.0 [facility] Comment on above: Performed By: #### A 1C #### [facility] [address] [place] [address] Dr. Mason Astudillo Hematocrit (Bld) [Volume fraction] 26.8 % Critically low 42.0-54.0 [facility] Comment on above: Performed By: #### A 1C #### [facility] [address] [place] [address] Dr. Mason Astudillo Hemoglobin (Bld) [Mass/Vol] 8.4 g/dL Critically low 14.0-18.0 [facility] Comment on above: Performed By: #### A 1C #### [facility] [address] [place] [address] Dr. Mason Astudillo IG # 0.12 10e3/ul Critically high 0.00-0.03 [facility] Comment on above: Performed By: #### A 1C #### [facility] [address] [place] [address] Dr. Mason Astudillo IG % 2.5 % Critically high 0.0-0.5 [facility] Comment on above: Performed By: #### A 1C #### [facility] [address] [place] [address] Dr. Mason Astudillo LYMPH # 0.9 103/ul Critically low 1.2-3.8 [facility] Comment on above: Performed By: #### A 1C #### [facility] [address] [place] [address] Dr. Mason Astudillo Lymphocytes/100 WBC (Bld) 18.1 % Critically low 20.5-60.0 [facility] Comment on above: Performed By: #### A 1C #### [facility] [address] [place] [address] Dr. Mason Astudillo MANUAL DIFF REQ NO Normal [facility] Comment on above: Performed By: #### A 1C #### [facility] [address] [place] [address] Dr. Mason Astudillo MCH (RBC) [Entitic mass] 27.7 pg Normal 25.9-34.0 [facility] Comment on above: Performed By: #### A 1C #### [facility] [address] [place] [address] Dr. Mason Astudillo MCHC (RBC) [Mass/Vol] 31.3 g/dL Normal 29.9-35.2 [facility] Comment on above: Performed By: #### A 1C #### [facility] [address] [place] [address] Dr. Mason Astudillo MCV (RBC) [Entitic vol] 88.4 fL Normal 80.0-94.0 [facility] Comment on above: Performed By: #### A 1C #### [facility] [address] [place] [address] Dr. Mason Astudillo MONO # 0.4 103/ul Normal 0.3-0.8 [facility] Comment on above: Performed By: #### A 1C #### [facility] [address] [place] [address] Dr. Mason Astudillo Monocytes/100 WBC (Bld) 9.1 % Normal 1.7-12.0 [facility] Comment on above: Performed By: #### A 1C #### [facility] [address] [place] [address] Dr. Mason Astudillo NEUT # 3.2 103/ul Normal 1.4-6.5 [facility] Comment on above: Performed By: #### A 1C #### [facility] [address] [place] [address] Dr. Mason Astudillo Neutrophils/100 WBC (Bld) 67.4 % Normal 43.0-75.0 [facility] Comment on above: Performed By: #### A 1C #### [facility] [address] [place] [address] Dr. Mason Astudillo Platelet mean volume (Bld) [Entitic vol] 10.2 fL Normal 9.5-13.5 [facility] Comment on above: Performed By: #### A 1C #### [facility] [address] [place] [address] Dr. Mason Astudillo PLT 135 103/ul Critically low 150-450 [facility] Comment on above: Performed By: #### A 1C #### [facility] [address] [place] [address] Dr. Mason Astudillo RBC 3.03 106/ul Critically low 4.70-6.10 [facility] Comment on above: Performed By: #### A 1C #### [facility] [address] [place] [address] Dr. Mason Astudillo WBC 4.7 103/ul Normal 4.0-11.0 [facility] Comment on above: Performed By: #### A 1C #### [facility] [address] [place] [address] Dr. Mason Astudillo GLYCOHEMOGLOBIN A1Con 2021 ADA RECOMMENDATION SEE BELOW Normal [facility] Comment on above: Result Comment: ADA RECOMMENDED LIMIT 4.0 - 6.0 ADA THERAPEUTIC TARGET < 7.0 ACTION SUGGESTED > 7.0 Performed By: #### A 1C #### [facility] [address] [place] [address] Dr. Mason Astudillo Glucose [Mass/Vol] 148 mg/dL Normal [facility] Comment on above: Performed By: #### A 1C #### [facility] [address] [place] [address] Dr. Mason Astudillo HbA1c (Bld) [Mass fraction] 6.8 % Critically high 4.5-6.2 [facility] Comment on above: Performed By: #### A 1C #### [facility] [address] [place] [address] Dr. Mason Astudillo POINT OF CARE GLUCOSEon 08 Glucose [Mass/Vol] 157 mg/dL Critically high 74-106 T [facility] Comment on above: Performed By: #### P OCGLUC #### [facility] [address] [place] [address] Dr. Mason Astudillo PROF CHEM 8 (BAS METB)on Anion gap [Moles/Vol] 10.5 mmol/L Normal [facility] Comment on above: Performed By: #### B MP #### [facility] [address] [place] [address] Dr. Mason Astudillo Calcium [Mass/Vol] 8.0 mg/dL Critically low 8.5-10.1 Th [facility] Comment on above: Performed By: #### B MP #### [facility] [address] [place] [address] Dr. Mason Astudillo Chloride [Moles/Vol] 105 mmol/L Normal 98-107 [facility] Comment on above: Performed By: #### B MP #### [facility] [address] [place] [address] Dr. Mason Astudillo CO2 [Moles/Vol] 27.2 mmol/L Normal 21.0-32.0 [facility] Comment on above: Performed By: #### B MP #### [facility] [address] [address] [address] Mason Astudillo Creatinine [Mass/Vol] 1.11 mg/dL Normal 0.70-1.30 [facility] Comment on above: Performed By: #### B MP #### [facility] [address] [place] [address] Dr. Mason Astudillo EGFR-AF TURKMEN >60 Normal >=60 [facility] Comment on above: Performed By: #### B MP #### [facility] [address] [place] [address] Dr. Mason Astudillo EGFR-NON AF TURKMEN >60 Normal >=60 [facility] Comment on above: Performed By: #### B MP #### [facility] [address] [place] [address] Dr. Mason Astudillo Glucose [Mass/Vol] 174 mg/dL Critically high 74-106 T [facility] Comment on above: Performed By: #### B MP #### [facility] [address] [place] [address] Dr. Mason Astudillo Potassium [Moles/Vol] 3.7 mmol/L Normal 3.5-5.1 [facility] Comment on above: Performed By: #### B MP #### [facility] [address] [place] [address] Dr. Mason Astudillo Sodium [Moles/Vol] 139 mmol/L Normal 136-145 [facility] Comment on above: Performed By: #### B MP #### [facility] [address] [place] [address] Dr. Mason Astudillo Urea nitrogen [Mass/Vol] 19.0 mg/dL Critically high 7.0-18.0 [facility] Comment on above: Performed By: #### B MP #### [facility] [address] [place] [address] Dr. Mason Astudillo Urea nitrogen/Creatinine [Mass ratio] 17.1 mg/mg Normal [facility] Comment on above: Performed By: #### B MP #### [facility] [address] [place] [address] Dr. Mason Astudillo CBC W MANUAL DIFFon 02-06-20 22 ATYPICAL LYMPH # Normal [facility] Comment on above: Performed By: #### C BC #### [facility] [address] [place] [address] Dr. Mason Astudillo ATYPICAL LYMPH % Normal [facility] Comment on above: Performed By: #### C BC #### [facility] [address] [place] [address] Dr. Mason Astudillo BAND # 0.0 103/ul Normal 0.0-0.3 [facility] Comment on above: Performed By: #### C BC #### [facility] [address] [place] [address] Dr. Mason Astudillo BAND % 0 % Normal 0-5 [facility] Comment on above: Performed By: #### C BC #### [facility] [address] [place] [address] Dr. Mason Astudillo BASOM # 0.06 103/ul Normal 0.00-0.10 [facility] Comment on above: Performed By: #### C BC #### [facility] [address] [place] [address] Dr. Mason Astudillo BASOM % 1.0 % Normal 0.2-2.0 [facility] Comment on above: Performed By: #### C BC #### [facility] [address] [place] [address] Dr. Mason Astudillo BLAST # Normal [facility] Comment on above: Performed By: #### C BC #### [facility] [address] [place] [address] Dr. Mason Astudillo BLAST % Normal [facility] Comment on above: Performed By: #### C BC #### [facility] [address] [place] [address] Dr. Mason Astudillo CORRECTED WBC Normal 4.0-11.0 [facility] Comment on above: Performed By: #### C BC #### [facility] [address] [place] [address] Dr. Mason Astudillo EOS # 0.17 103/ul Normal 0.00-0.70 [facility] Comment on above: Performed By: #### C BC #### [facility] [address] [place] [address] Dr. Mason Astudillo EOS% 3.0 % Normal 0.9-7.0 [facility] Comment on above: Performed By: #### C BC #### [facility] [address] [place] [address] Dr. Mason Astudillo HCT 27.4 % Critically low 42.0-54.0 [facility] Comment on above: Performed By: #### C BC #### [facility] [address] [place] [address] Dr. Mason Astudillo HGB 8.6 g/dl Critically low 14.0-18.0 [facility] Comment on above: Performed By: #### C BC #### [facility] [address] [place] [address] Dr. Mason Astudillo LYMPHM # 0.56 103/ul Critically low 1.20-3.80 [facility] Comment on above: Performed By: #### C BC #### [facility] [address] [place] [address] Dr. Mason Astudillo LYMPHM% 10.0 % Critically low 20.5-60.0 [facility] Comment on above: Performed By: #### C BC #### [facility] [address] [place] [address] Dr. Mason Astudillo MCH 27.7 pg Normal 25.9-34.0 [facility] Comment on above: Performed By: #### C BC #### [facility] [address] [place] [address] Dr. Mason Astudillo MCHC 31.4 g/dl Normal 29.9-35.2 [facility] Comment on above: Performed By: #### C BC #### [facility] [address] [place] [address] Dr. Mason Astudillo MCV 88.1 fL Normal 80.0-94.0 [facility] Comment on above: Performed By: #### C BC #### [facility] [address] [place] [address] Dr. Mason Astudillo METAMYELOCYTE # Normal [facility] Comment on above: Performed By: #### C BC #### [facility] [address] [place] [address] Dr. Mason Astudillo METAMYELOCYTE % Normal [facility] Comment on above: Performed By: #### C BC #### [facility] [address] [place] [address] Dr. Maosn Astudillo MONOM# 0.34 103/ul Normal 0.30-0.80 [facility] Comment on above: Performed By: #### C BC #### [facility] [address] [place] [address] Dr. Mason Astudillo MONOM% 6.0 % Normal 1.7-12.0 [facility] Comment on above: Performed By: #### C BC #### [facility] [address] [place] [address] Dr. Mason Astudillo MPV 10.5 fL Normal 9.5-13.5 [facility] Comment on above: Performed By: #### C BC #### [facility] [address] [place] [address] Dr. Mason Astudillo MYELOCYTE # Normal [facility] Comment on above: Performed By: #### C BC #### [facility] [address] [place] [address] Dr. Mason Astudillo MYELOCYTE % Normal [facility] Comment on above: Performed By: #### C BC #### [facility] [address] [place] [address] Dr. Mason Astudillo NRBC Normal [facility] Comment on above: Performed By: #### C BC #### [facility] [address] [place] [address] Dr. Mason Astudillo OVALOCYTES 1+ Normal [facility] Comment on above: Performed By: #### C BC #### [facility] [address] [place] [address] Dr. Mason Astudillo PLT 124 103/ul Critically low 150-450 [facility] Comment on above: Performed By: #### C BC #### [facility] [address] [place] [address] Dr. Mason Astudillo RBC 3.11 106/ul Critically low 4.70-6.10 [facility] Comment on above: Performed By: #### C BC #### [facility] [address] [place] [address] Dr. Mason Astudillo RDW 15.9 % Critically high 11.0-15.0 [facility] Comment on above: Performed By: #### C BC #### [facility] [address] [address] [address] Mason Astudillo SEG # 4.48 103/ul Normal 1.40-6.50 [facility] Comment on above: Performed By: #### C BC #### [facility] [address] [place] [address] Dr. Mason Astudillo SEG % 80.0 % Critically high 43.0-75.0 [facility] Comment on above: Performed By: #### C BC #### [facility] [address] [place] [address] Dr. Mason Astudillo WBC 5.6 103/ul Normal 4.0-11.0 [facility] Comment on above: Performed By: #### C BC #### [facility] [address] [place] [address] Dr. Mason Astudillo POINT OF CARE GLUCOSEon Glucose [Mass/Vol] 260 mg/dL Critically high 74-106 [facility] Comment on above: Performed By: #### P OCGLUC #### [facility] [address] [place] [address] Dr. Mason Astudillo Glucose [Mass/Vol] 165 mg/dL Critically high 74-106 [facility] Comment on above: Performed By: #### A 1C #### [facility] [address] [place] [address] Dr. Mason Astudillo Glucose [Mass/Vol] 147 mg/dL Critically high 74-106 [facility] Comment on above: Performed By: #### C BC #### [facility] [address] [place] [address] Dr. Mason Astudillo PROF CHEM 8 (BAS METB)on Anion gap [Moles/Vol] 11.0 mmol/L Normal [facility] Comment on above: Performed By: #### U A #### [facility] [address] [address] [address] Mason Astudillo Calcium [Mass/Vol] 8.0 mg/dL Critically low 8.5-10.1 Th e [facility] Comment on above: Performed By: #### U A #### [facility] [address] [address] [address] Mason Astudillo Chloride [Moles/Vol] 106 mmol/L Normal 98-107 [facility] Comment on above: Performed By: #### U A #### [facility] [address] [place] [address] Dr. Mason Astudillo CO2 [Moles/Vol] 26.7 mmol/L Normal 21.0-32.0 [facility] Comment on above: Performed By: #### U A #### [facility] [address] [place] [address] Dr. Mason Astudillo Creatinine [Mass/Vol] 1.22 mg/dL Normal 0.70-1.30 [facility] Comment on above: Performed By: #### U A #### [facility] [address] [place] [address] Dr. Mason Astudillo EGFR-AF TURKMEN >60 Normal >=60 [facility] Comment on above: Performed By: #### U A #### [facility] [address] [place] [address] Dr. Mason Astudillo EGFR-NON AF TURKMEN 56 mL/min/1.73m2 Critically low >=60 [facility] Comment on above: Performed By: #### U A #### [facility] [address] [place] [address] Dr. Mason Astudillo Glucose [Mass/Vol] 147 mg/dL Critically high 74-106 T [facility] Comment on above: Performed By: #### U A #### [facility] [address] [place] [address] Dr. Mason Astudillo Potassium [Moles/Vol] 3.7 mmol/L Normal 3.5-5.1 [facility] Comment on above: Performed By: #### U A #### [facility] [address] [place] [address] Dr. Mason Astudillo Sodium [Moles/Vol] 140 mmol/L Normal 136-145 [facility] Comment on above: Performed By: #### U A #### [facility] [address] [place] [address] Dr. Mason Astudillo Urea nitrogen [Mass/Vol] 17.0 mg/dL Normal 7.0-18.0 [facility] Comment on above: Performed By: #### U A #### [facility] [address] [place] [address] Dr. Mason Astudillo Urea nitrogen/Creatinine [Mass ratio] 13.9 mg/mg Normal [facility] Comment on above: Performed By: #### U A #### [facility] [address] [place] [address] Dr. Mason Astudillo CBC AUTO DIFFon 02-04-2022 BASO # 0.0 103/ul Normal 0.0-0.1 [facility] Comment on above: Performed By: #### C BC #### [facility] [address] [place] [address] Dr. Mason Astudillo Basophils/100 WBC (Bld) 0.2 % Normal 0.2-2.0 [facility] Comment on above: Performed By: #### C BC #### [facility] [address] [place] [address] Dr. Mason Astudillo EO # 0.2 103/ul Normal 0.0-0.7 [facility] Comment on above: Performed By: #### C BC #### [facility] [address] [place] [address] Dr. Mason Astudillo Eosinophils/100 WBC (Bld) 3.4 % Normal 0.9-7.0 [facility] Comment on above: Performed By: #### C BC #### [facility] [address] [place] [address] Dr. Mason Astudillo Erythrocyte distribution width (RBC) [Ratio] 15.6 % Critically high 11.0-15.0 [facility] Comment on above: Performed By: #### C BC #### [facility] [address] [place] [address] Dr. Mason Astudillo Hematocrit (Bld) [Volume fraction] 26.1 % Critically low 42.0-54.0 [facility] Comment on above: Performed By: #### C BC #### [facility] [address] [place] [address] Dr. Mason Astudillo Hemoglobin (Bld) [Mass/Vol] 8.2 g/dL Critically low 14.0-18.0 [facility] Comment on above: Performed By: #### C BC #### [facility] [address] [place] [address] Dr. Mason Astudillo IG # 0.06 10e3/ul Critically high 0.00-0.03 [facility] Comment on above: Performed By: #### C BC #### [facility] [address] [place] [address] Dr. Mason Astudillo IG % 1.4 % Critically high 0.0-0.5 [facility] Comment on above: Performed By: #### C BC #### [facility] [address] [place] [address] Dr. Mason Astudillo LYMPH # 0.6 103/ul Critically low 1.2-3.8 [facility] Comment on above: Performed By: #### C BC #### [facility] [address] [place] [address] Dr. Mason Astudillo Lymphocytes/100 WBC (Bld) 14.3 % Critically low 20.5-60.0 [facility] Comment on above: Performed By: #### C BC #### [facility] [address] [place] [address] Dr. Mason Astudillo MANUAL DIFF REQ NO Normal [facility] Comment on above: Performed By: #### C BC #### [facility] [address] [place] [address] Dr. Mason Astudillo MCH (RBC) [Entitic mass] 27.4 pg Normal 25.9-34.0 [facility] Comment on above: Performed By: #### C BC #### [facility] [address] [address] [address] Mason Astudillo MCHC (RBC) [Mass/Vol] 31.4 g/dL Normal 29.9-35.2 [facility] Comment on above: Performed By: #### C BC #### [facility] [address] [address] [address] Mason Astudillo MCV (RBC) [Entitic vol] 87.3 fL Normal 80.0-94.0 [facility] Comment on above: Performed By: #### C BC #### [facility] [address] [place] [address] Dr. Mason Astudillo MONO # 0.5 103/ul Normal 0.3-0.8 [facility] Comment on above: Performed By: #### C BC #### [facility] [address] [place] [address] Dr. Mason Astudillo Monocytes/100 WBC (Bld) 10.4 % Normal 1.7-12.0 [facility] Comment on above: Performed By: #### C BC #### [facility] [address] [place] [address] Dr. Mason Astudillo NEUT # 3.1 103/ul Normal 1.4-6.5 [facility] Comment on above: Performed By: #### C BC #### [facility] [address] [place] [address] Dr. Mason Astudillo Neutrophils/100 WBC (Bld) 70.3 % Normal 43.0-75.0 [facility] Comment on above: Performed By: #### C BC #### [facility] [address] [address] [address] Mason Astudillo Platelet mean volume (Bld) [Entitic vol] 10.5 fL Normal 9.5-13.5 [facility] Comment on above: Performed By: #### C BC #### [facility] [address] [address] [address] Mason Astudillo PLT 105 103/ul Critically low 150-450 [facility] Comment on above: Performed By: #### C BC #### [facility] [address] [place], [place] [address] Dr. Mason Astudillo RBC 2.99 106/ul Critically low 4.70-6.10 [facility] Comment on above: Performed By: #### C BC #### [facility] [address] [place], [place] [address] Dr. Mason Astudillo WBC 4.4 103/ul Normal 4.0-11.0 [facility] Comment on above: Performed By: #### C BC #### [facility] [address] [place], [place] [address] Dr. Mason Astudillo ECHOCARDIO M/2D COMPLETEon 0 02-04-2022 ECHOCARDIO M/2D COMPLETE Patient: BEN GUADALUPE Exam Date: 02/04/2022 : 1935 Gender:M Ordering : DR COLTON CASTELLON . Admission #: [id number] Family : SHAIKH Samantha ELLIOTT . Order #: [id number] CLICK HERE TO VIEW EXAM ECHOCARDIOGRAM REPORT [...] Cheney M.D. on 02/04/2022 at 13:39 Normal [facility] POINT OF CARE GLUCOSEon Glucose [Mass/Vol] 262 mg/dL Critically high 74-106 [facility] Comment on above: Performed By: #### C BC #### [facility] [address] [place] [address] Dr. Mason Astudillo Glucose [Mass/Vol] 167 mg/dL Critically high -106 [facility] Comment on above: Performed By: #### C BC #### [facility] [address] [address] [address] Mason Astudillo Glucose [Mass/Vol] 158 mg/dL Critically high -106 [facility] Comment on above: Performed By: #### P OCGLUC #### [facility] [address] [address] [address] Mason Astudillo PRBC LEUKOREDUCEDon 02-05-20 ABO and Rh group Nom (Bld) Cross Match Result Compatible Unit Blood Type A Neg Unit Number [id number] Status Information Transfused Product ID Red Blood Cells Product Code [id number] Cross Match Result Compatible Unit Blood Type A Neg Unit Number [id number] Status Information Transfused Product ID Red Blood Cells Product Code [id number] [facility] Comment on above: Performed By: #### P SAD #### [facility] [address] [place] [address] Dr. Mason Astudillo PROF CHEM 8 (BAS METB)on Anion gap [Moles/Vol] 11.5 mmol/L [facility] Comment on above: Performed By: #### C BC #### [facility] [address] [address] [address] Mason Astudillo Calcium [Mass/Vol] 7.4 mg/dL Critically low 8.5-10.1 Th e [facility] Comment on above: Performed By: #### C BC #### [facility] [address] [address] [address] Mason Astudillo Chloride [Moles/Vol] 106 mmol/L Normal 98-107 [facility] Comment on above: Performed By: #### C BC #### [facility] [address] [address] [address] Mason Astudillo CO2 [Moles/Vol] 25.8 mmol/L Normal 21.0-32.0 [facility] Comment on above: Performed By: #### C BC #### [facility] [address] [address] [address] Mason Astudillo Creatinine [Mass/Vol] 1.07 mg/dL Normal 0.70-1.30 [facility] Comment on above: Performed By: #### C BC #### [facility] [address] [address] [address] Mason Astudillo EGFR-AF TURKMEN >60 Normal >=60 [facility] Comment on above: Performed By: #### C BC #### [facility] [address] [address] [address] Mason Astudillo EGFR-NON AF TURKMEN >60 Normal >=60 [facility] Comment on above: Performed By: #### C BC #### [facility] [address] [address] [address] Mason Astudillo Glucose [Mass/Vol] 165 mg/dL Critically high 74-106 [facility] Comment on above: Performed By: #### C BC #### [facility] [address] [address] [address] Mason Astudillo Potassium [Moles/Vol] 3.3 mmol/L Critically low 3.5-5.1 [facility] Comment on above: Performed By: #### C BC #### [facility] [address] [place] [address] Dr. Mason Astudillo Sodium [Moles/Vol] 140 mmol/L Normal 136-145 [facility] Comment on above: Performed By: #### C BC #### [facility] [address] [place] [address] Dr. Mason Astudillo Urea nitrogen [Mass/Vol] 19.0 mg/dL Critically high 7.0-18.0 [facility] Comment on above: Performed By: #### C BC #### [facility] [address] [place] [address] Dr. Mason Astudillo Urea nitrogen/Creatinine [Mass ratio] 17.8 mg/mg Normal [facility] Comment on above: Performed By: #### C BC #### [facility] [address] [place] [address] Dr. Mason Astudillo ABO RH RETYPEon 02-03-2022 ABO and Rh group Nom (Bld) DONE Normal [facility] Comment on above: Performed By: #### P OCGLUC #### [facility] [address] [place] [address] Dr. Mason Astudillo CBC AUTO DIFFon 02-03-2022 Basophils/100 WBC (Bld) 0.5 % Normal 0.2-2.0 [facility] Comment on above: Performed By: #### U A #### [facility] [address] [place] [address] Dr. Mason Astudillo EO # 0.2 103/ul Normal 0.0-0.7 [facility] Comment on above: Performed By: #### U A #### [facility] [address] [place] [address] Dr. Mason Astudillo Eosinophils/100 WBC (Bld) 2.9 % Normal 0.9-7.0 [facility] Comment on above: Performed By: #### U A #### [facility] [address] [place] [address] Dr. Mason Astudillo Erythrocyte distribution width (RBC) [Ratio] 15.7 % Critically high 11.0-15.0 [facility] Comment on above: Performed By: #### U A #### [facility] [address] [address] [address] Maosn Astudillo Hematocrit (Bld) [Volume fraction] 31.1 % Critically low 42.0-54.0 [facility] Comment on above: Performed By: #### U A #### [facility] [address] [address] [address] Mason Astudillo Hemoglobin (Bld) [Mass/Vol] 9.7 g/dL Critically low 14.0-18.0 [facility] Comment on above: Result Comment: rcvd . 2 units of packed red cells. Performed By: #### U A #### [facility] [address] [place] [address] Dr. Masno Astudillo IG # 0.05 10e3/ul Critically high 0.00-0.03 [facility] Comment on above: Performed By: #### U A #### [facility] [address] [place] [address] Dr. Mason Astudillo IG % 0.8 % Critically high 0.0-0.5 [facility] Comment on above: Performed By: #### U A #### [facility] [address] [place] [address] Dr. Mason Astudillo LYMPH # 1.1 103/ul Critically low 1.2-3.8 [facility] Comment on above: Performed By: #### U A #### [facility] [address] [place] [address] Dr. Mason Astudillo Lymphocytes/100 WBC (Bld) 19.3 % Critically low 20.5-60.0 [facility] Comment on above: Performed By: #### U A #### [facility] [address] [place] [address] Dr. Mason Astudillo MCH (RBC) [Entitic mass] 27.2 pg Normal 25.9-34.0 [facility] Comment on above: Performed By: #### U A #### [facility] [address] [place] [address] Dr. Mason Astudillo MCHC (RBC) [Mass/Vol] 31.2 g/dL Normal 29.9-35.2 [facility] Comment on above: Performed By: #### U A #### [facility] [address] [address] [address] Mason Astudillo MCV (RBC) [Entitic vol] 87.1 fL Normal 80.0-94.0 [facility] Comment on above: Performed By: #### U A #### [facility] [address] [address] [address] Mason Astudillo MONO # 0.6 103/ul Normal 0.3-0.8 [facility] Comment on above: Performed By: #### U A #### [facility] [address] [address] [address] Mason Astudillo Monocytes/100 WBC (Bld) 10.7 % Normal 1.7-12.0 [facility] Comment on above: Performed By: #### U A #### [facility] [address] [address] [address] Mason Astudillo NEUT # 3.9 103/ul Normal 1.4-6.5 [facility] Comment on above: Performed By: #### U A #### [facility] [address] [address] [address] Mason Astudillo Neutrophils/100 WBC (Bld) 65.8 % Normal 43.0-75.0 [facility] Comment on above: Performed By: #### U A #### [facility] [address] [address] [address] Mason Astudillo Platelet mean volume (Bld) [Entitic vol] 10.5 fL Normal 9.5-13.5 [facility] Comment on above: Performed By: #### U A #### [facility] [address] [address] [address] Mason Astudillo PLT 147 103/ul Critically low 150-450 [facility] Comment on above: Performed By: #### U A #### [facility] [address] [address] [address] Mason Astudillo RBC 3.57 106/ul Critically low 4.70-6.10 [facility] Comment on above: Performed By: #### U A #### [facility] [address] [address] [address] Mason Astudillo WBC 5.9 103/ul Normal 4.0-11.0 [facility] Comment on above: Performed By: #### U A #### [facility] [address] [address] [address] Mason Astudillo BASO # 0.0 103/ul Normal 0.0-0.1 [facility] Comment on above: Performed By: #### U A #### [facility] [address] [address] [address] Mason Astudillo Basophils/100 WBC (Bld) 0.3 % Normal 0.2-2.0 [facility] Comment on above: Performed By: #### U A #### [facility] [address] [place] [address] Dr. Mason Astudillo EO # 0.1 103/ul Normal 0.0-0.7 [facility] Comment on above: Performed By: #### U A #### [facility] [address] [place] [address] Dr. Mason Astudillo Eosinophils/100 WBC (Bld) 2.5 % Normal 0.9-7.0 [facility] Comment on above: Performed By: #### U A #### [facility] [address] [place] [address] Dr. Mason Astudillo Erythrocyte distribution width (RBC) [Ratio] 15.9 % Critically high 11.0-15.0 [facility] Comment on above: Performed By: #### U A #### [facility] [address] [place] [address] Dr. Mason Astudillo Hematocrit (Bld) [Volume fraction] 22.3 % Critically low 42.0-54.0 [facility] Comment on above: Result Comment: Test Repeated. Critical Value Verified Performed By: #### U A #### [facility] [address] [place] [address] Dr. Mason Astudillo Hemoglobin (Bld) [Mass/Vol] 6.7 g/dL Critically low 14.0-18.0 [facility] Comment on above: Result Comment: Test Repeated. Critical Value Verified Performed By: #### U A #### [facility] [address] [place] [address] Dr. Mason Astudillo IG # 0.02 10e3/ul Normal 0.00-0.03 [facility] Comment on above: Performed By: #### U A #### [facility] [address] [place] [address] Dr. Mason Astudillo IG % 0.5 % Normal 0.0-0.5 [facility] Comment on above: Performed By: #### U A #### [facility] [address] [place] [address] Dr. Mason Astudillo LYMPH # 0.7 103/ul Critically low 1.2-3.8 [facility] Comment on above: Performed By: #### U A #### [facility] [address] [place] [address] Dr. Mason Astudillo Lymphocytes/100 WBC (Bld) 19.5 % Critically low 20.5-60.0 [facility] Comment on above: Performed By: #### U A #### [facility] [address] [place] [address] Dr. Mason Astudillo MANUAL DIFF REQ NO Normal [facility] Comment on above: Performed By: #### U A #### [facility] [address] [place] [address] Dr. Mason Astudillo MCH (RBC) [Entitic mass] 25.8 pg Critically low 25.9-34.0 [facility] Comment on above: Performed By: #### U A #### [facility] [address] [place] [address] Dr. Mason Astudillo MCHC (RBC) [Mass/Vol] 30.0 g/dL Normal 29.9-35.2 [facility] Comment on above: Performed By: #### U A #### [facility] [address] [place] [address] Dr. Mason Astudillo MCV (RBC) [Entitic vol] 85.8 fL Normal 80.0-94.0 [facility] Comment on above: Performed By: #### U A #### [facility] [address] [address] [address] Mason Astudillo MONO # 0.4 103/ul Normal 0.3-0.8 [facility] Comment on above: Performed By: #### U A #### [facility] [address] [address] [address] Mason Astudillo Monocytes/100 WBC (Bld) 11.8 % Normal 1.7-12.0 [facility] Comment on above: Performed By: #### U A #### [facility] [address] [address] [address] Mason Astudillo NEUT # 2.4 103/ul Normal 1.4-6.5 [facility] Comment on above: Performed By: #### U A #### [facility] [address] [place] [address] Dr. Mason Astudillo Neutrophils/100 WBC (Bld) 65.4 % Normal 43.0-75.0 [facility] Comment on above: Performed By: #### U A #### [facility] [address] [place] [address] Dr. Mason Astudillo Platelet mean volume (Bld) [Entitic vol] 10.7 fL Normal 9.5-13.5 [facility] Comment on above: Performed By: #### U A #### [facility] [address] [address] [address] Mason Astudillo PLT 103 103/ul Critically low 150-450 [facility] Comment on above: Performed By: #### U A #### [facility] [address] [address] [address] Mason Astudillo RBC 2.60 106/ul Critically low 4.70-6.10 [facility] Comment on above: Performed By: #### U A #### [facility] [address] [address] [address] Mason Astudillo WBC 3.7 103/ul Critically low 4.0-11.0 [facility] Comment on above: Performed By: #### U A #### [facility] [address] [address] [address] Mason Astudillo IRON AND TIBCon 02-03-2022 % SATURATION 46.9 % Normal [facility] Comment on above: Performed By: #### U A #### [facility] [address] [address] [address] Mason Astudillo Iron [Mass/Vol] 150.0 ug/dL Normal 65.0-175.0 [facility] Comment on above: Performed By: #### U A #### [facility] [address] [address] [address] Mason Astudillo TIBC DIRECT 320.0 ug/dL Normal 250.0-450.0 [facility] Comment on above: Performed By: #### U A #### [facility] [address] [place] [address] Dr. Mason Astudillo POINT OF CARE GLUCOSEon 01-06 Glucose [Mass/Vol] 201 mg/dL Critically high 74-106 [facility] Comment on above: Performed By: #### U A #### [facility] [address] [address] [address] Mason Astudillo Glucose [Mass/Vol] 152 mg/dL Critically high 74-106 [facility] Comment on above: Performed By: #### P OCGLUC #### [facility] [address] [place] [address] Dr. Mason Astudillo Glucose [Mass/Vol] 242 mg/dL Critically high -106 [facility] Comment on above: Performed By: #### A 1C #### [facility] [address] [place] [address] Dr. Mason Astudillo PROF CHEM 8 (BAS METB)on Anion gap [Moles/Vol] 11.4 mmol/L Normal [facility] Comment on above: Performed By: #### B MP #### [facility] [address] [place] [address] Dr. Mason Astudillo Calcium [Mass/Vol] 7.5 mg/dL Critically low 8.5-10.1 [facility] Comment on above: Performed By: #### B MP #### [facility] [address] [address] [address] Mason Astudillo Chloride [Moles/Vol] 106 mmol/L Normal 98-107 [facility] Comment on above: Performed By: #### B MP #### [facility] [address] [address] [address] Mason Astudillo CO2 [Moles/Vol] 26.8 mmol/L Normal 21.0-32.0 [facility] Comment on above: Performed By: #### B MP #### [facility] [address] [address] [address] Mason Astudillo Creatinine [Mass/Vol] 1.26 mg/dL Normal 0.70-1.30 [facility] Comment on above: Performed By: #### B MP #### [facility] [address] [place] [address] Dr. Mason Astudillo EGFR-AF TURKMEN >60 Normal >=60 [facility] Comment on above: Performed By: #### B MP #### [facility] [address] [address] [address] Mason Astudillo EGFR-NON AF TURKMEN 54 mL/min/1.73m2 Critically low >=60 [facility] Comment on above: Performed By: #### B MP #### [facility] [address] [address] [address] Mason Astudillo Glucose [Mass/Vol] 160 mg/dL Critically high 74-106 T [facility] Comment on above: Performed By: #### B MP #### [facility] [address] [address] [address] Mason Astudillo Potassium [Moles/Vol] 3.2 mmol/L Critically low 3.5-5.1 [facility] Comment on above: Performed By: #### B MP #### [facility] [address] [place] [address] Dr. Mason Astudillo Sodium [Moles/Vol] 141 mmol/L Normal 136-145 [facility] Comment on above: Performed By: #### B MP #### [facility] [address] [place] [address] Dr. Mason Astudillo Urea nitrogen [Mass/Vol] 30.0 mg/dL Critically high 7.0-18.0 [facility] Comment on above: Performed By: #### B MP #### [facility] [address] [place] [address] Dr. Mason Astudillo Urea nitrogen/Creatinine [Mass ratio] 23.8 mg/mg Normal [facility] Comment on above: Performed By: #### B MP #### [facility] [address] [place] [address] Dr. Mason Astudillo TYPE AND SCREENon 02-03-2022 TYPE AND SCREEN Negative Normal [facility] Comment on above: Performed By: #### T NS #### [facility] [address] [place] [address] Dr. Mason Astudillo BNPon 02-02-2022 Natriuretic peptide B (Bld) [Mass/Vol] 154.0 pg/mL Normal <=1,800.0 [facility] Comment on above: Performed By: #### P SAD #### [facility] [address] [place] [address] Dr. Mason Astudillo CARDIAC ANJELICA ADMITon 022 CK [Catalytic activity/Vol] 256 U/L Normal 39-308 [facility] Comment on above: Performed By: #### P OCGLUC #### [facility] [address] [place] [address] Dr. Mason Astudillo CK.MB [Mass/Vol] 3.30 ng/mL Normal <=3.60 [facility] Comment on above: Performed By: #### P OCGLUC #### [facility] [address] [place] [address] Dr. Mason Astudillo HSTROP 19.1 pg/mL Normal 4.0-76.1 [facility] Comment on above: Result Comment: CUT- OFF POINTS HAVE BEEN ESTABLISHED BASED ON THE FOURTH UNIVERSAL DEFINITIONS OF MYOCARDIAL INFARCTION. THE UPPER REFERENCE LIMIT (URL) OF TROPONIN, DEFINED THE 99TH PERCENTILE OF cTnI DISTRIBUTION IN A REFERENCE POPULATION, HAS BEEN CONFIRMED THE DECISION THRESHOLD FOR IN DIAGNOSIS. Performed By: #### P OCGLUC #### [facility] [address] [address] [address] Mason Astudillo ABDELRAHMAN 304 ng/mL Critically high 16-96 [facility] Comment on above: Performed By: #### P OCGLUC #### [facility] [address] [place] [address] Dr. Mason Astudillo CBC AUTO DIFFon 02-02-2022 BASO # 0.0 103/ul Normal 0.0-0.1 [facility] Comment on above: Performed By: #### C BC #### [facility] [address] [place] [address] Dr. Mason Astudillo Basophils/100 WBC (Bld) 0.5 % Normal 0.2-2.0 [facility] Comment on above: Performed By: #### C BC #### [facility] [address] [place] [address] Dr. Mason Astudillo EO # 0.2 103/ul Normal 0.0-0.7 [facility] Comment on above: Performed By: #### C BC #### [facility] [address] [place] [address] Dr. Mason Astudillo Eosinophils/100 WBC (Bld) 2.4 % Normal 0.9-7.0 [facility] Comment on above: Performed By: #### C BC #### [facility] [address] [place] [address] Dr. Mason Astudillo Erythrocyte distribution width (RBC) [Ratio] 15.9 % Critically high 11.0-15.0 [facility] Comment on above: Performed By: #### C BC #### [facility] [address] [place] [address] Dr. Mason Astudillo Hematocrit (Bld) [Volume fraction] 27.9 % Critically low 42.0-54.0 [facility] Comment on above: Performed By: #### C BC #### [facility] [address] [place] [address] Dr. Mason Astudillo Hemoglobin (Bld) [Mass/Vol] 8.7 g/dL Critically low 14.0-18.0 [facility] Comment on above: Performed By: #### C BC #### [facility] [address] [place] [address] Dr. Mason Astudillo IG # 0.04 10e3/ul Critically high 0.00-0.03 [facility] Comment on above: Performed By: #### C BC #### [facility] [address] [place] [address] Dr. Mason Astudillo IG % 0.6 % Critically high 0.0-0.5 [facility] Comment on above: Performed By: #### C BC #### [facility] [address] [place] [address] Dr. Mason Astudillo LYMPH # 1.3 103/ul Normal 1.2-3.8 [facility] Comment on above: Performed By: #### C BC #### [facility] [address] [place] [address] Dr. Mason Astudillo Lymphocytes/100 WBC (Bld) 20.1 % Critically low 20.5-60.0 [facility] Comment on above: Performed By: #### C BC #### [facility] [address] [place] [address] Dr. Mason Astudillo MANUAL DIFF REQ NO Normal [facility] Comment on above: Performed By: #### C BC #### [facility] [address] [place] [address] Dr. Mason Astudillo MCH (RBC) [Entitic mass] 26.1 pg Normal 25.9-34.0 [facility] Comment on above: Performed By: #### C BC #### [facility] [address] [place] [address] Dr. Mason Astudillo MCHC (RBC) [Mass/Vol] 31.2 g/dL Normal 29.9-35.2 [facility] Comment on above: Performed By: #### C BC #### [facility] [address] [place] [address] Dr. Mason Astudillo MCV (RBC) [Entitic vol] 83.8 fL Normal 80.0-94.0 [facility] Comment on above: Performed By: #### C BC #### [facility] [address] [address] [address] Mason Astudillo MONO # 0.7 103/ul Normal 0.3-0.8 [facility] Comment on above: Performed By: #### C BC #### [facility] [address] [place] [address] Dr. Mason Astudillo Monocytes/100 WBC (Bld) 11.1 % Normal 1.7-12.0 [facility] Comment on above: Performed By: #### C BC #### [facility] [address] [place] [address] Dr. Mason Astudillo NEUT # 4.1 103/ul Normal 1.4-6.5 [facility] Comment on above: Performed By: #### C BC #### [facility] [address] [place] [address] Dr. Mason Astudillo Neutrophils/100 WBC (Bld) 65.3 % Normal 43.0-75.0 [facility] Comment on above: Performed By: #### C BC #### [facility] [address] [place] [address] Dr. Mason Astudillo Platelet mean volume (Bld) [Entitic vol] 10.3 fL Normal 9.5-13.5 [facility] Comment on above: Performed By: #### C BC #### [facility] [address] [place] [address] Dr. Mason Astudillo PLT 145 103/ul Critically low 150-450 [facility] Comment on above: Performed By: #### C BC #### [facility] [address] [place] [address] Dr. Mason Astudillo RBC 3.33 106/ul Critically low 4.70-6.10 [facility] Comment on above: Performed By: #### C BC #### [facility] [address] [place] [address] Dr. Mason Astudillo WBC 6.2 103/ul Normal 4.0-11.0 [facility] Comment on above: Performed By: #### C BC #### [facility] [address] [place] [address] Dr. Mason Astudillo Covid-19 PCR (CVDTBH)on 01-06 SARS-CoV-2 (COVID-19) RNA GARCÍA+probe Ql (Unsp spec) Not detected Normal NOT DETECTED [facility] Comment on above: Result Comment: When [...] for this test is supported by the [place] of Health and Human Service's declaration that [...] used). Performed By: #### A 1C #### [facility] [address] [place] [address] Dr. Mason Astudillo FREE T3on 02-02-2022 FREE T3 2.16 pg/mlL Critically low 2.18-3.98 [facility] Comment on above: Performed By: #### P SAD #### [facility] [address] [place] [address] Dr. Mason Astudillo FREE T4on 02-02-2022 Free T4 [Mass/Vol] 1.09 ng/dL Normal 0.76-1.46 [facility] Comment on above: Performed By: #### F T4 #### [facility] [address] [place] [address] Dr. Mason Astudillo GLYCOHEMOGLOBIN A1Con 2021 ADA RECOMMENDATION SEE BELOW Normal [facility] Comment on above: Result Comment: ADA RECOMMENDED LIMIT 4.0 - 6.0 ADA THERAPEUTIC TARGET < 7.0 ACTION SUGGESTED > 7.0 Performed By: #### A 1C #### [facility] [address] [place] [address] Dr. Mason Astudillo Glucose [Mass/Vol] 160 mg/dL Normal [facility] Comment on above: Performed By: #### A 1C #### [facility] [address] [place] [address] Dr. Mason Astudillo HbA1c (Bld) [Mass fraction] 7.2 % Critically high 4.5-6.2 [facility] Comment on above: Performed By: #### A 1C #### [facility] [address] [place] [address] Dr. Mason Astudillo MAGNESIUMon 02-02-2022 Magnesium [Mass/Vol] 2.1 mg/dL Normal 1.8-2.4 [facility] Comment on above: Performed By: #### P SAD #### [facility] [address] [place] [address] Dr. Mason Astudillo POINT OF CARE GLUCOSEon 01-06-2021 Glucose [Mass/Vol] 226 mg/dL Critically high 74-106 [facility] Comment on above: Performed By: #### C BC #### [facility] [address] [place] [address] Dr. Mason Astudillo Glucose [Mass/Vol] 249 mg/dL Critically high 74-106 [facility] Comment on above: Performed By: #### C BC #### [facility] [address] [place] [address] Dr. Mason Astudillo Glucose [Mass/Vol] 195 mg/dL Critically high 74-106 [facility] Comment on above: Performed By: #### P SAD #### [facility] [address] [place] [address] Dr. Mason Astudillo PROF CHEM 8 (BAS METB)on Anion gap [Moles/Vol] 12.6 mmol/L Normal [facility] Comment on above: Performed By: #### P OCGLUC #### [facility] [address] [place] [address] Dr. Mason Astudillo Calcium [Mass/Vol] 8.1 mg/dL Critically low 8.5-10.1 [facility] Comment on above: Performed By: #### P OCGLUC #### [facility] [address] [address] [address] Mason Astudillo Chloride [Moles/Vol] 101 mmol/L Normal 98-107 [facility] Comment on above: Performed By: #### P OCGLUC #### [facility] [address] [place] [address] Dr. Mason Astudillo CO2 [Moles/Vol] 29.4 mmol/L Normal 21.0-32.0 [facility] Comment on above: Performed By: #### P OCGLUC #### [facility] [address] [place] [address] Dr. Mason Astudillo Creatinine [Mass/Vol] 1.68 mg/dL Critically high 0.70-1.30 [facility] Comment on above: Performed By: #### P OCGLUC #### [facility] [address] [place] [address] Dr. Mason Astudillo EGFR-AF TURKMEN 47 mL/min/1.73m2 Critically low >=60 [facility] Comment on above: Result Comment: Prev iously reported as: (blank) On 02/02/2022 06:30 By [facility] Performed By: #### P OCGLUC #### [facility] [address] [place] [address] Dr. Mason Astudillo EGFR-NON AF TURKMEN 39 mL/min/1.73m2 Critically low >=60 [facility] Comment on above: Result Comment: Prev iously reported as: (blank) On 02/02/2022 06:30 By [facility] Performed By: #### P OCGLUC #### [facility] [address] [place] [address] Dr. Mason Astudillo Glucose [Mass/Vol] 264 mg/dL Critically high 74-106 [facility] Comment on above: Performed By: #### P OCGLUC #### [facility] [address] [place] [address] Dr. Mason Astudillo Potassium [Moles/Vol] 3.0 mmol/L Critically low 3.5-5.1 [facility] Comment on above: Performed By: #### P OCGLUC #### [facility] [address] [address] [address] Mason Astudillo Sodium [Moles/Vol] 140 mmol/L Normal 136-145 [facility] Comment on above: Performed By: #### P OCGLUC #### [facility] [address] [place] [address] Dr. Mason Astudillo Urea nitrogen [Mass/Vol] 45.0 mg/dL Critically high 7.0-18.0 [facility] Comment on above: Performed By: #### P OCGLUC #### [facility] [address] [place] [address] Dr. Mason Astudillo Urea nitrogen/Creatinine [Mass ratio] 26.8 mg/mg Normal [facility] Comment on above: Performed By: #### P OCGLUC #### [facility] [address] [place] [address] Dr. Mason Astudillo TROPONIN, HIGH SENSITIVITYon 02-02-2022 HSTROP 81.7 pg/mL Critically high 4.0-76.1 [facility] Comment on above: Result Comment: CUT- OFF POINTS HAVE BEEN ESTABLISHED BASED ON THE FOURTH UNIVERSAL DEFINITIONS OF MYOCARDIAL INFARCTION. THE UPPER REFERENCE LIMIT (URL) OF TROPONIN, DEFINED THE 99TH PERCENTILE OF cTnI DISTRIBUTION IN A REFERENCE POPULATION, HAS BEEN CONFIRMED THE DECISION THRESHOLD FOR IN DIAGNOSIS. repeated Performed By: #### B MP #### [facility] [address] [place] [address] Dr. Mason Astudillo TSHon 02-02-2022 TSH 1.200 uIU/mL Normal 0.358-3.740 [facility] Comment on above: Performed By: #### C BC #### [facility] [address] [place] [address] Dr. Mason Astudillo XR CHEST 1 Von [...] CARMINA LOVE Date: 2022-02-02 06:45 Normal [facility] RENAL FUNCTION PANELon 01-11 Albumin [Mass/Vol] 3.7 g/dL Normal 3.4-5.0 [facility] Comment on above: Performed By: #### P OCGLUC #### [facility] [address] [address] [address] Mason Astudillo Calcium [Mass/Vol] 8.6 mg/dL Normal 8.5-10.1 [facility] Comment on above: Performed By: #### P OCGLUC #### [facility] [address] [address] [address] Mason Astudillo Chloride [Moles/Vol] 104 mmol/L Normal 98-107 [facility] Comment on above: Performed By: #### P OCGLUC #### [facility] [address] [address] [address] Mason Astudillo CO2 [Moles/Vol] 28.0 mmol/L Normal 21.0-32.0 [facility] Comment on above: Performed By: #### P OCGLUC #### [facility] [address] [address] [address] Mason Astudillo Creatinine [Mass/Vol] 1.25 mg/dL Normal 0.70-1.30 [facility] Comment on above: Performed By: #### P OCGLUC #### [facility] [address] [address] [address] Mason Astudillo EGFR-AF TURKMEN >60 Normal >=60 [facility] Comment on above: Performed By: #### P OCGLUC #### [facility] [address] [address] [address] Mason Astudillo EGFR-NON AF TURKMEN 55 mL/min/1.73m2 Critically low >=60 [facility] Comment on above: Performed By: #### P OCGLUC #### [facility] [address] [address] [address] Mason Astudillo Glucose [Mass/Vol] 143 mg/dL Critically high 74-106 [facility] Comment on above: Performed By: #### P OCGLUC #### [facility] [address] [address] [address] Mason Astudillo Phosphate [Mass/Vol] 2.9 mg/dL Normal 2.6-4.7 [facility] Comment on above: Performed By: #### P OCGLUC #### [facility] [address] [place] [address] Dr. Msaon Astudillo Potassium [Moles/Vol] 3.6 mmol/L Normal 3.5-5.1 [facility] Comment on above: Performed By: #### P OCGLUC #### [facility] [address] [address] [address] Mason Astudillo Sodium [Moles/Vol] 142 mmol/L Normal 136-145 [facility] Comment on above: Performed By: #### P OCGLUC #### [facility] [address] [place] [address] Dr. Mason Astudillo Urea nitrogen [Mass/Vol] 19.0 mg/dL Critically high 7.0-18.0 [facility] Comment on above: Performed By: #### P OCGLUC #### [facility] [address] [place] [address] Dr. Mason Astudillo UA RANDOMon 01-11-2022 Bilirubin Ql (U) Negative Normal NEGATIVE [facility] Comment on above: Performed By: #### U A #### [facility] [address] [place] [address] Dr. Mason Astudillo Clarity (U) CLEAR Normal CLEAR [facility] Comment on above: Performed By: #### U A #### [facility] [address] [place] [address] Dr. Mason Astudillo Color (U) LT. YELLOW Normal YELLOW [facility] Comment on above: Performed By: #### U A #### [facility] [address] [place] [address] Dr. Mason Astudillo Glucose Ql (U) >1000 Abnormal NEGATIVE [facility] Comment on above: Performed By: #### U A #### [facility] [address] [place] [address] Dr. Mason Astudillo Hemoglobin Ql (U) Negative Normal NEGATIVE [facility] Comment on above: Performed By: #### U A #### [facility] [address] [place] [address] Dr. Mason Astudillo Ketones Ql (U) Negative Normal NEGATIVE [facility] Comment on above: Performed By: #### U A #### [facility] [address] [place] [address] Dr. Mason Astudillo LEUKOCYTES Negative Normal NEGATIVE [facility] Comment on above: Performed By: #### U A #### [facility] [address] [place] [address] Dr. Mason Astudillo Nitrite Ql (U) Negative Normal NEGATIVE [facility] Comment on above: Performed By: #### U A #### [facility] [address] [place] [address] Dr. Mason Astudillo pH (U) 6.5 [pH] Normal 5-9 [facility] Comment on above: Performed By: #### U A #### [facility] [address] [place] [address] Dr. Mason Astudillo SPEC GRAVITY 1.010 Normal 1.005-<=1.0 25 [facility] Comment on above: Performed By: #### U A #### [facility] [address] [place] [address] Dr. Mason Astudillo UA PROTEIN Negative Normal NEGATIVE/ TRACE [facility] Comment on above: Performed By: #### U A #### [facility] [address] [place] [address] Dr. Mason Astudillo Urobilinogen Qn (U) 0.2 {Lewis'U}/dL Normal 0.2 - 1. 0 [facility] Comment on above: Performed By: #### U A #### [facility] [address] [place] [address] Dr. Mason Astudillo URINE T PROTEIN CREAT RATIOo n 01-11-2022 Protein (U) [Mass/Vol] 23.7 mg/dL Critically high <=12.0 [facility] Comment on above: Performed By: #### A 1C #### [facility] [address] [place] [address] Dr. Mason Astudillo UR PROT CREAT RAT 0.20 Normal [facility] Comment on above: Performed By: #### A 1C #### [facility] [address] [address] [address] Mason Astudillo URINE CREAT 115.99 mg/dL Normal 20.00-300.0 0 [facility] Comment on above: Performed By: #### A 1C #### [facility] [address] [address] [address] Mason Astudillo US KIDNEYSon 01-09-2022 US KIDNEYS EXAMINATION: [facility] HISTORY: Hypertensive heart disease [...] BRISA SALAS Date: 2022-01-09 17:44 Normal [facility] FOLATE ([facility])on 2 Folate 11.0 ng/mL Normal >3.0 [facility] Comment on above: Result Comment: A se rum folate concentration of less than 3.1 ng/mL is considered to represent clinical deficiency. Performed By: #### P SAD #### [facility] [address] [address] [address] Mason Astudillo TRANSFERRINon 12-20-2021 Transferrin [Mass/Vol] 316 mg/dL Critically high 149-313 [facility] Comment on above: Performed By: #### A 1C #### [facility] [address] [place] [address] Dr. Mason Astudillo CBC AUTO DIFFon 12-18-2021 BASO # 0.0 103/ul Normal 0.0-0.1 [facility] Comment on above: Performed By: #### U A #### [facility] [address] [place] [address] Dr. Mason Astudillo Basophils/100 WBC (Bld) 0.3 % Normal 0.2-2.0 [facility] Comment on above: Performed By: #### U A #### [facility] [address] [place] [address] Dr. Mason Astudillo EO # 0.1 103/ul Normal 0.0-0.7 [facility] Comment on above: Performed By: #### U A #### [facility] [address] [place] [id number] Dr. Mason Astudillo Eosinophils/100 WBC (Bld) 2.0 % Normal 0.9-7.0 [facility] Comment on above: Performed By: #### U A #### [facility] [address] [place] [address] Dr. Mason Astudillo Erythrocyte distribution width (RBC) [Ratio] 14.6 % Normal 11.0-15.0 [facility] Comment on above: Performed By: #### U A #### [facility] [address] [place] [address] Dr. Mason Astudillo Hematocrit (Bld) [Volume fraction] 35.6 % Critically low 42.0-54.0 [facility] Comment on above: Performed By: #### U A #### [facility] [address] [place] [address] Dr. Mason Astudillo Hemoglobin (Bld) [Mass/Vol] 10.7 g/dL Critically low 14.0-18.0 [facility] Comment on above: Performed By: #### U A #### [facility] [address] [place] [address] Dr. Mason Astudillo IG # 0.03 10e3/ul Normal 0.00-0.03 [facility] Comment on above: Performed By: #### U A #### [facility] [address] [place] [address] Dr. Mason Astudillo IG % 0.5 % Normal 0.0-0.5 [facility] Comment on above: Performed By: #### U A #### [facility] [address] [place] [address] Dr. Mason Astudillo LYMPH # 1.0 103/ul Critically low 1.2-3.8 [facility] Comment on above: Performed By: #### U A #### [facility] [address] [place] [address] Dr. Mason Astudillo Lymphocytes/100 WBC (Bld) 15.5 % Critically low 20.5-60.0 [facility] Comment on above: Performed By: #### U A #### [facility] [address] [place] [address] Dr. Mason Astudillo MANUAL DIFF REQ NO Normal [facility] Comment on above: Performed By: #### U A #### [facility] [address] [place] [address] Dr. Mason Astudillo MCH (RBC) [Entitic mass] 27.4 pg Normal 25.9-34.0 [facility] Comment on above: Performed By: #### U A #### [facility] [address] [place] [address] Dr. Mason Astudillo MCHC (RBC) [Mass/Vol] 30.1 g/dL Normal 29.9-35.2 [facility] Comment on above: Performed By: #### U A #### [facility] [address] [place] [address] Dr. Mason Astudillo MCV (RBC) [Entitic vol] 91.0 fL Normal 80.0-94.0 [facility] Comment on above: Performed By: #### U A #### [facility] [address] [place] [address] Dr. Mason Astudillo MONO # 0.5 103/ul Normal 0.3-0.8 [facility] Comment on above: Performed By: #### U A #### [facility] [address] [address] [address] Mason Astudillo Monocytes/100 WBC (Bld) 8.1 % Normal 1.7-12.0 [facility] Comment on above: Performed By: #### U A #### [facility] [address] [address] [address] Mason Astudillo NEUT # 4.5 103/ul Normal 1.4-6.5 [facility] Comment on above: Performed By: #### U A #### [facility] [address] [address] [address] Mason Astudillo Neutrophils/100 WBC (Bld) 73.6 % Normal 43.0-75.0 [facility] Comment on above: Performed By: #### U A #### [facility] [address] [place] [address] Dr. Mason Astudillo Platelet mean volume (Bld) [Entitic vol] 10.1 fL Normal 9.5-13.5 [facility] Comment on above: Performed By: #### U A #### [facility] [address] [place] [address] Dr. Mason Astudillo PLT 138 103/ul Critically low 150-450 [facility] Comment on above: Performed By: #### U A #### [facility] [address] [place] [address] Dr. Mason Astudillo RBC 3.91 106/ul Critically low 4.70-6.10 [facility] Comment on above: Performed By: #### U A #### [facility] [address] [place] [address] Dr. Mason Astudillo WBC 6.1 103/ul Normal 4.0-11.0 [facility] Comment on above: Performed By: #### U A #### [facility] [address] [place] [address] Dr. Mason Astudillo FERRITINon 12-18-2021 Ferritin [Mass/Vol] 16.0 ng/mL Critically low 26.0-388.0 [facility] Comment on above: Performed By: #### P OCGLUC #### [facility] [address] [address] [address] Mason Astudillo GLYCOHEMOGLOBIN A1Con 2021 ADA RECOMMENDATION SEE BELOW Normal [facility] Comment on above: Result Comment: ADA RECOMMENDED LIMIT 4.0 - 6.0 ADA THERAPEUTIC TARGET < 7.0 ACTION SUGGESTED > 7.0 Performed By: #### C BC #### [facility] [address] [address] [address] Mason Astudillo Glucose [Mass/Vol] 140 mg/dL Normal [facility] Comment on above: Performed By: #### C BC #### [facility] [address] [address] [address] Mason Astudillo HbA1c (Bld) [Mass fraction] 6.5 % Critically high 4.5-6.2 [facility] Comment on above: Performed By: #### C BC #### [facility] [address] [address] [address] Mason Astudillo IRON AND TIBCon 12-18-2021 % SATURATION 5.7 % Normal [facility] Comment on above: Performed By: #### P OCGLUC #### [facility] [address] [place] [address] Dr. Mason Astudillo Iron [Mass/Vol] 23.0 ug/dL Critically low 65.0-175.0 [facility] Comment on above: Performed By: #### P OCGLUC #### [facility] [address] [address] [address] Mason Astudillo TIBC DIRECT 413.0 ug/dL Normal 250.0-450.0 [facility] Comment on above: Performed By: #### P OCGLUC #### [facility] [address] [place] [address] Dr. Mason Astudillo PROF CHEM 8 (BAS METB)on Anion gap [Moles/Vol] 13.7 mmol/L Normal [facility] Comment on above: Performed By: #### P SAD #### [facility] [address] [place] [address] Dr. Mason Astudillo Calcium [Mass/Vol] 8.2 mg/dL Critically low 8.5-10.1 [facility] Comment on above: Performed By: #### P SAD #### [facility] [address] [address] [address] Mason Astudillo Chloride [Moles/Vol] 105 mmol/L Normal 98-107 [facility] Comment on above: Performed By: #### P SAD #### [facility] [address] [address] [address] Mason Astudillo CO2 [Moles/Vol] 27.1 mmol/L Normal 21.0-32.0 [facility] Comment on above: Performed By: #### P SAD #### [facility] [address] [place] [address] Dr. Mason Astudillo Creatinine [Mass/Vol] 1.32 mg/dL Critically high 0.70-1.30 [facility] Comment on above: Performed By: #### P SAD #### [facility] [address] [place] [address] Dr. Mason Astudillo EGFR-AF TURKMEN >60 Normal >=60 [facility] Comment on above: Performed By: #### P SAD #### [facility] [address] [place] [address] Dr. Mason Astudillo EGFR-NON AF TURKMEN 52 mL/min/1.73m2 Critically low >=60 [facility] Comment on above: Performed By: #### P SAD #### [facility] [address] [place] [address] Dr. Mason Astudillo Glucose [Mass/Vol] 121 mg/dL Critically high 74-106 [facility] Comment on above: Performed By: #### P SAD #### [facility] [address] [place] [address] Dr. Mason Astudillo Potassium [Moles/Vol] 3.8 mmol/L Normal 3.5-5.1 [facility] Comment on above: Performed By: #### P SAD #### [facility] [address] [place] [address] Dr. Mason Astudillo Sodium [Moles/Vol] 142 mmol/L Normal 136-145 [facility] Comment on above: Performed By: #### P SAD #### [facility] [address] [place] [address] Dr. Mason Astudillo Urea nitrogen [Mass/Vol] 27.0 mg/dL Critically high 7.0-18.0 [facility] Comment on above: Performed By: #### P SAD #### [facility] [address] [place] [address] Dr. Mason Astudillo Urea nitrogen/Creatinine [Mass ratio] 20.5 mg/mg Normal [facility] Comment on above: Performed By: #### P SAD #### [facility] [address] [place] [address] Dr. Mason Astudillo VITAMIN B12on 12-18-2021 Cobalamin (Vitamin B12) [Mass/Vol] 423.0 pg/mL Normal 193.0-986.0 [facility] Comment on above: Performed By: #### P OCGLUC #### [facility] [address] [place] [address] Dr. Mason Astudillo CBC AUTO DIFFon 11-08-2021 BASO # 0.0 103/ul Normal 0.0-0.1 [facility] Comment on above: Performed By: #### U A #### [facility] [address] [place] [address] Dr. Mason Astudillo Basophils/100 WBC (Bld) 0.3 % Normal 0.2-2.0 [facility] Comment on above: Performed By: #### U A #### [facility] [address] [place] [address] Dr. Mason Astudillo EO # 0.2 103/ul Normal 0.0-0.7 [facility] Comment on above: Performed By: #### U A #### [facility] [address] [place] [address] Dr. Mason Astudillo Eosinophils/100 WBC (Bld) 2.6 % Normal 0.9-7.0 [facility] Comment on above: Performed By: #### U A #### [facility] [address] [place] [address] Dr. Mason Astudillo Erythrocyte distribution width (RBC) [Ratio] 15.1 % Critically high 11.0-15.0 [facility] Comment on above: Performed By: #### U A #### [facility] [address] [place] [address] Dr. Mason Astudillo Hematocrit (Bld) [Volume fraction] 36.2 % Critically low 42.0-54.0 [facility] Comment on above: Performed By: #### U A #### [facility] [address] [place] [address] Dr. Mason Astudillo Hemoglobin (Bld) [Mass/Vol] 11.7 g/dL Critically low 14.0-18.0 [facility] Comment on above: Performed By: #### U A #### [facility] [address] [place] [address] Dr. Mason Astudillo IG # 0.04 10e3/ul Critically high 0.00-0.03 [facility] Comment on above: Performed By: #### U A #### [facility] [address] [place] [address] Dr. Mason Astudillo IG % 0.7 % Critically high 0.0-0.5 [facility] Comment on above: Performed By: #### U A #### [facility] [address] [place] [address] Dr. Mason Astudillo LYMPH # 0.9 103/ul Critically low 1.2-3.8 [facility] Comment on above: Performed By: #### U A #### [facility] [address] [place] [address] Dr. Mason Astudillo Lymphocytes/100 WBC (Bld) 14.4 % Critically low 20.5-60.0 [facility] Comment on above: Performed By: #### U A #### [facility] [address] [place] [address] Dr. Mason Astudillo MANUAL DIFF REQ NO Normal [facility] Comment on above: Performed By: #### U A #### [facility] [address] [place] [address] Dr. Mason Astudillo MCH (RBC) [Entitic mass] 29.8 pg Normal 25.9-34.0 [facility] Comment on above: Performed By: #### U A #### [facility] [address] [place] [address] Dr. Mason Astudillo MCHC (RBC) [Mass/Vol] 32.3 g/dL Normal 29.9-35.2 [facility] Comment on above: Performed By: #### U A #### [facility] [address] [place] [address] Dr. Mason Astudillo MCV (RBC) [Entitic vol] 92.3 fL Normal 80.0-94.0 [facility] Comment on above: Performed By: #### U A #### [facility] [address] [place] [address] Dr. Mason Astudillo MONO # 0.5 103/ul Normal 0.3-0.8 [facility] Comment on above: Performed By: #### U A #### [facility] [address] [place] [address] Dr. Mason Astudillo Monocytes/100 WBC (Bld) 7.5 % Normal 1.7-12.0 [facility] Comment on above: Performed By: #### U A #### [facility] [address] [place] [address] Dr. Msaon Astudillo NEUT # 4.5 103/ul Normal 1.4-6.5 [facility] Comment on above: Performed By: #### U A #### [facility] [address] [place] [address] Dr. Mason Astudillo Neutrophils/100 WBC (Bld) 74.5 % Normal 43.0-75.0 [facility] Comment on above: Performed By: #### U A #### [facility] [address] [place] [address] Dr. Mason Astudillo Platelet mean volume (Bld) [Entitic vol] 10.1 fL Normal 9.5-13.5 [facility] Comment on above: Performed By: #### U A #### [facility] [address] [place] [address] Dr. Mason Astudillo PLT 132 103/ul Critically low 150-450 [facility] Comment on above: Performed By: #### U A #### [facility] [address] [place] [address] Dr. Mason Astudillo RBC 3.92 106/ul Critically low 4.70-6.10 [facility] Comment on above: Performed By: #### U A #### [facility] [address] [place] [address] Dr. Mason Astudillo WBC 6.0 103/ul Normal 4.0-11.0 [facility] Comment on above: Performed By: #### U A #### [facility] [address] [place] [address] Dr. Mason Astudillo PROF CHEM 8 (BAS METB)on Anion gap [Moles/Vol] 8.9 mmol/L Normal [facility] Comment on above: Performed By: #### B MP #### [facility] [address] [place] [address] Dr. Mason Astudillo Calcium [Mass/Vol] 7.9 mg/dL Critically low 8.5-10.1 [facility] Comment on above: Performed By: #### B MP #### [facility] [address] [place] [address] Dr. Mason Astudillo Chloride [Moles/Vol] 101 mmol/L Normal 98-107 [facility] Comment on above: Performed By: #### B MP #### [facility] [address] [place] [address] Dr. Mason Astudillo CO2 [Moles/Vol] 28.3 mmol/L Normal 21.0-32.0 [facility] Comment on above: Performed By: #### B MP #### [facility] [address] [place] [address] Dr. Mason Astudillo Creatinine [Mass/Vol] 1.22 mg/dL Normal 0.70-1.30 [facility] Comment on above: Performed By: #### B MP #### [facility] [address] [place] [address] Dr. Mason Astudillo EGFR-AF TURKMEN >60 Normal >=60 [facility] Comment on above: Performed By: #### B MP #### [facility] [address] [address] [address] Mason Astudillo EGFR-NON AF TURKMEN 57 mL/min/1.73m2 Critically low >=60 [facility] Comment on above: Performed By: #### B MP #### [facility] [address] [address] [address] Mason Astudillo Glucose [Mass/Vol] 167 mg/dL Critically high 74-106 T [facility] Comment on above: Performed By: #### B MP #### [facility] [address] [address] [address] Mason Astudillo Potassium [Moles/Vol] 3.2 mmol/L Critically low 3.5-5.1 [facility] Comment on above: Performed By: #### B MP #### [facility] [address] [address] [address] Mason Astudillo Sodium [Moles/Vol] 135 mmol/L Critically low 136-145 Th [facility] Comment on above: Performed By: #### B MP #### [facility] [address] [address] [address] Mason Astudillo Urea nitrogen [Mass/Vol] 23.0 mg/dL Critically high 7.0-18.0 [facility] Comment on above: Performed By: #### B MP #### [facility] [address] [address] [address] Mason Astudillo Urea nitrogen/Creatinine [Mass ratio] 18.9 mg/mg Normal [facility] Comment on above: Performed By: #### B MP #### [facility] [id number] Mason Astudillo XR CHEST 2 Von [...] BRITTANIE CASILLAS Date: 2021-11-08 14:01 Normal [facility] Vital Signs Date Time Vital Sign Value Performing Clinician Facility 12-23-2022 13:13-0400 Blood Pressure Location Mekhidominique VERGARA [facility] 12-23-2022 13:13-0400 Diastolic blood pressure 68 mm[Hg] Mekhi VERGARA [facility] 12-23-2022 13:13-0400 Heart rate 70 /min Mekhi VERGARA [facility] 12-23-2022 13:13-0400 Systolic blood pressure 120 mm[Hg] Mekhi VERGARA [facility] 05-10-2022 10:43-0400 Body height 177.8 cm Pacc 6 Work Phone: [facility] 05-10-2022 10:43-0400 Body temperature 97.81 [degF] Pacc 6 Work Phone: [facility] 05-10-2022 10:43-0400 Body weight 86.18 kg Pacc 6 Work Phone: [facility] 05-10-2022 10:43-0400 Diastolic blood pressure 75 mm[Hg] Pacc 6 Work Phone: [facility] 05-10-2022 10:43-0400 Heart rate 86 /min Pacc 6 Work Phone: [facility] 05-10-2022 10:43-0400 SaO2% (BldA) [Mass fraction] 97 % Pacc 6 Work Phone: [facility] 05-10-2022 10:43-0400 Systolic blood pressure 124 mm[Hg] Pacc 6 Work Phone: [facility] 04-22-2022 15:42-0400 Blood Pressure Location Mekhi VERGARA [facility] 04-22-2022 15:42-0400 Diastolic blood pressure 64 mm[Hg] Mekhi VERGARA [facility] 04-22-2022 15:42-0400 Heart rate 76 /min Mekhi VERGARA [facility] 04-22-2022 15:42-0400 Respiratory rate 60 /min Mekhi VERGARA [facility] 04-22-2022 15:42-0400 Systolic blood pressure 117 mm[Hg] Mekhi VERGARA [facility] 04-17-2022 12:55-0400 Body height 177.8 cm Tristin Wilcox MD, PhD Work Phone: [facility] 04-17-2022 12:55-0400 Body temperature 98.4 [degF] Tristin Wilcox MD, PhD Work Phone: [facility] 04-17-2022 12:55-0400 Body weight 86.18 kg Tristin Wilcox MD, PhD Work Phone: [facility] 04-17-2022 12:55-0400 Diastolic blood pressure 74 mm[Hg] Tristin Wilcox MD, PhD Work Phone: [facility] 04-17-2022 12:55-0400 Heart rate 70 /min Tristin Wilcox MD, PhD Work Phone: [facility] 04-17-2022 12:55-0400 Respiratory rate 16 /min Tristin Wilcox MD, PhD Work Phone: [facility] 04-17-2022 12:55-0400 SaO2% (BldA) [Mass fraction] 99 % Tristin Wilcox MD, PhD Work Phone: [facility] 04-17-2022 12:55-0400 Systolic blood pressure 127 mm[Hg] Tristin Wilcox MD, PhD Work Phone: [facility] 10-16-2021 14:39-0400 Blood Pressure Location Yenni NILL [facility] [place] 10-16-2021 14:39-0400 Diastolic blood pressure 76 mm[Hg] Yenni NILL [facility] [place] 10-16-2021 14:39-0400 Heart rate 68 /min Yenni NILL [facility] [place] 10-16-2021 14:39-0400 Respiratory rate 16 /min Yenni NILL [facility] [place] 10-16-2021 14:39-0400 Systolic blood pressure 106 mm[Hg] Yenni NILL [facility] [place] Encounters Encounter Date Encounter Type Care Provider Facility Start: 10-23-2023 ambulatory Armani Grimes lity:Javy BUI Start: 08-28-2023 End: 08-28-2023 ambulatory [facility] Start: 08-21-2023 Orders Only Shaikh Lexi WORKMAN Work Phone: [facility] Comment on above: 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 Start: 08-19-2023 End: 08-19-2023 ambulatory Mekhi Althea VERGARA Facility:[facility] [place] Start: 08-19-2023 End: 08-19-2023 Patient encounter procedure Mekhi VERGARA [facility] Start: 07-28-2023 End: 07-28-2023 ambulatory SHAIKH LEXI Not Available Start: 07-03-2023 End: 07-03-2023 ambulatory DE LA OEILEEN SARKARD Not Available Start: 07-03-2023 Patient encounter procedure Shaikh Lexi WORKMAN Work Phone: [facility] Start: 06-20-2023 End: 06-20-2023 ambulatory Mekhi Althea URSULA Facility:[facility] [place] Start: 06-18-2023 End: 06-18-2023 ambulatory DE LA O LEXI Not Available Start: 06-10-2023 ambulatory Mekhi VERGARA Facility :[facility] [place] Start: 06-09-2023 End: 06-10-2023 ambulatory aMllorie Joy MD Facility: [place] Start: 06-05-2023 End: [...] [place] Start: 03-07-2023 End: 03-07-2023 ambulatory ANDREA [facility] Start: 02-03-2023 End: 02-04-2023 ambulatory Mallorie Joy MD Facility:[facility] [place] Start: 12-23-2022 End: 12-23-2022 Patient encounter procedure Mekhi VERGARA [facility] Start: 11-21-2022 ambulatory NARENDRANATH LAKSHMIPATHY . Facility:[facility] Start: 10-31-2022 ambulatory NARENDRANATH LAKSHMIPATHY . Facility:[facility] Start: 10-29-2022 End: 10-29-2022 ambulatory NARENDRANATH LAKSHMIPATHY . Facility:[facility] Start: 10-24-2022 End: 10-25-2022 ambulatory NARENDRANATH LAKSHMIPATHY . Facility:[facility] Start: 10-18-2022 End: 10-18-2022 ambulatory [facility] Start: 10-11-2022 End: 10-12-2022 ambulatory [facility] Start: 09-11-2022 End: 09-11-2022 ambulatory [facility] Start: 08-06-2022 End: 08-06-2022 Patient encounter procedure Mekhi VERGARA [facility] Start: 07-30-2022 End: 07-31-[address] PAULINE WINSTON . Facility:[facility] Start: 07-09-2022 End: 07-09-2022 ambulatory SHAIKH Milena ELLIOTT Facility:[facility] Start: 06-25-2022 End: 06-26-2022 ambulatory SHAIKH Milena ELLIOTT Facility:[facility] Start: 05-17-2022 End: 05-17-2022 ambulatory TRISTIN WILCOX Facility:[facility] Start: 11-10-2022 Telephone encounter Maria Luisa Arsuaga RN C olorectal Surgery Comment on above: [employer]ushing [employer] - O ther Start: 05-10-2022 End: 05-11-2022 ambulatory TRISTIN WILCOX Facility:[facility] Start: 05-10-2022 Encounter for other preprocedural examination TRISTIN WILCOX [facility] Start: 05-10-2022 End: 05-10-2022 ambulatory Pacc Main 6 Work Phone: Pre Anesthesia Comment on above: Pre-op evaluation (P rimary Dx); Type 2 diabetes mellitus without complication, without long-term current use of insulin ([facility]); Radiculopathy, cervical region; Dementia in other diseases classified elsewhere, unspecified severity, without behavioral disturbance, psychotic disturbance, mood disturbance, and anxiety ([facility]); Intracranial hemorrhage ([facility]); Essential (primary) hypertension; Sleep apnea, unspecified type; Chronic obstructive pulmonary disease, unspecified COPD type ([facility]); Arteriosclerosis of coronary artery; PAF (paroxysmal atrial fibrillation) ([facility]); History of DVT (deep vein thrombosis); Gastroesophageal reflux disease with esophagitis, unspecified whether hemorrhage; Chronic kidney disease, stage 4 (severe) ([facility]); Calculus of kidney; Hypothyroidism unspecified; Iron deficiency anemia due to chronic blood loss; History of prostate cancer; History of primary malignant neoplasm of urinary bladder; Gout, unspecified cause, unspecified chronicity, unspecified site Patient Education Start: 05-10-2022 End: 05-11-2022 ambulatory TRISTIN WILCOX Facility:[facility] Start: 05-10-2022 End: 05-10-2022 Admission to establishment Pacc Main 6 Work Phone: [facility] Start: 05-10-2022 End: 05-10-2022 Preprocedural examination done Pacc Main 6 Work Phone: Pre Anesthesia Start: 05-09-2022 End: 05-10-2022 ambulatory SHAIKH Milena ELLIOTT Facility: Start: 05-01-2022 End: 05-01-2022 ambulatory FRANKY VERONICA Facility:[facility] Start: 04-25-2022 Telephone encounter Tristin Shawbraxton Colorectal Surgery Comment on above: Appointment Start: 04-24-2022 Telephone encounter Marika Oh Bro Colorectal Surgery Comment on above: [employer]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 Facility:[facility] Start: 11-27-2021 End: 11-27-2021 Patient encounter procedure 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 General Surgery [facility] [place] Start: 11-21-2021 End: 11-22-2021 ambulatory SHAIKH Milena SARKARD Facility:[facility] Start: 11-17-2021 ambulatory SHAIKH Milena ELLIOTT Facilit y:[facility]1 Start: 11-09-2021 Encounter for preprocedural cardiovascular examination DR YENNI STANLEY . [facility] Start: 11-09-2021 Encounter for preprocedural laboratory examination DR YENNI STANLEY . [facility] Start: 11-08-2021 End: 11-09-[address] NONE LISTED REQUEST Facility: Start: 11-08-2021 End: 11-09-2021 Encounter for preprocedural cardiovascular examination DR NONE LISTED REQUEST Facility: Start: 10-16-2021 End: 10-16-2021 Patient encounter procedure 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 General Surgery [facility] [place] Start: 10-09-2021 End: 10-09-2021 Off-Site Iraida James [facility] Start: 01-20-2017 End: 01-21-2017 Ambulatory DEFAULT PHYSICIAN Facility:[facility] Procedures Date Procedure Procedure Detail Performing Clinician Start: 08-05-2022 Cystoscopy Mekhi VERGARA Start: 05-10-2022 Antibody screen TRISTIN WILCOX Comment on above: Order Comment: Specimen Type: BLOOD SPEC IMENOrdering Facility: [facility] Address: [address] [place] [address] Performed By: #### T [id number] ####CC MAIN BLOOD BANKCLIA [id number] LEO CASEY [id number] [place] [address] [place] Start: 05-09-2022 PSA screening SHAIKH LEXI Comment on above: Performed By: #### A1C #### [facility] [address] [place] [address] Dr. Mason Astudillo Start: 04-18-2022 PSA screening SHAIKH LEXI Comment on above: Performed By: #### PSAD #### [facility] [address] [place] [address] Dr. Mason Astudillo Start: 04-17-2022 Sigmoidoscopy flx [...] 10/02/2023 1:00 PM EDT Office Visit [facility] [address] [place] [id number] Shaikh Elliott MD [address] [facility] [place] [address] [facility] [place] Start: 08-07-2023 Hemoglobin A1c measurement Diabetes: Hemoglobin A1C [facility] Start: 11-07-2022 Hemoglobin A1c/Hemoglobin.total in Blood HBA1C [facility] Start: 05-10-2022 End: 07-10-2022 Hemoglobin A1c in Blood [facility] Work Phone: Comment on above: Expected: 05/10/2022 , Expires: 07/10/2022 Start: 03-07-2022 Influenza vaccination INFLUENZA (#1) [facility] Start: 08-21-2021 COVID-19 VACCINE (4 - Booster for Moderna series) COVID-19 VACCINE (4 - Booster for Moderna series) [facility] Start: 07-07-2021 ADVANCE DIRECTIVE DISCUSSION ADVANCE DIRECTIVE DISCUSSION [facility] Start: 07-07-2021 DEPRESSION ASSESSMENT DEPRESSION ASS ESSMENT [facility] Start: 2001 PNEUMOCOCCAL: 65+ (1 - PCV) PNEUMOCOCCAL: 65+ (1 - PCV) [facility] Start: 1986 SHINGRIX VACCINE (1 of 2) SHINGRIX VACCINE (1 of 2) [facility] Start: 1981 DIABETES SCREEN DIABETES SCREEN [facility] Start: 12-17-1955 Urine microalbumin profile DTAP,TDAP,TD (1 - Tdap) [facility] Start: 1954 Hepatitis B surface antibody level LDL CHOLESTEROL [facility] Start: 1954 SPIROMETRY SPIROMETRY [facility] Start: 1946 3 comp foot exam completed DIABETIC FOOT EXAM [facility] Start: 1946 Hepatitis B screening URINE ALBUMIN:CREATININE RATIO [facility] Start: 1946 Hepatitis C antibody , confirmatory test DILATED RETINAL EXAM [facility] Start: 1942 PNEUMOCOCCAL: 65+ (1 - PCV) PNEUMOCOCCAL: 65+ (1 - PCV) [facility] Start: 1941 Hemoglobin A1c/Hemoglobin.total in Blood HBA1C [facility] Immunizations Immunization Date Immunization Notes Care Provider Fa cility 06-06-2023 Influenza, High-dose Seasonal, Quadrivalent, Preservative Free Shaikh Lexi WORKMAN Work Phone: [facility] 05-14-2022 influenza virus vacc ine, unspecified formulation Mekhi VERGARA [facility] 05-14-2022 Influenza, Seasonal, Quadrivalent, Adjuvanted Shaikh Lexi WORKMAN Work Phone: [facility] 06-26-2021 SARS-CoV-2 (COVID-19 ) mRNA-1273 vaccine Mekhi VERGARA [facility] 04-06-2021 influenza virus vacc ine, unspecified formulation Iraida Jacob [facility] 03-28-2021 influenza virus vacc ine, unspecified formulation Mekhi VERGARA [facility] 03-28-2021 Influenza, injectabl e, Madin Farrell Canine Kidney, preservative free, quadrivalent Shaikh Lexi WORKMAN Work Phone: [facility] 02-04-2021 influenza virus vacc ine, unspecified formulation Iraida James [facility] 09-12-2020 SARS-CoV-2 (COVID-19 ) mRNA-1273 vaccine Mekhi VERGARA [facility] 08-14-2020 SARS-CoV-2 (COVID-19 ) mRNA-1273 vaccine Mekhi VERGARA [facility] 05-25-2020 pneumococcal polysaccharide vaccine, 23 valent Mekhi VERGARA [facility] 05-25-2020 zoster vaccine recombinant Mekhi VERGARA [facility] 02-25-2020 influenza virus vacc ine, unspecified formulation Mekhidominique VERGARA [facility] 02-25-2020 influenza, injectabl e, quadrivalent, preservative free Shaikh Lexi WORKMAN Work Phone: [facility] 02-25-2020 zoster vaccine recombinant Mekhi VERGARA [facility] 05-11-2019 tetanus toxoid, redu nimesh diphtheria toxoid, and acellular pertussis vaccine, adsorbed Mekhi VERGARA [facility] 03-23-2019 influenza virus vacc ine, unspecified formulation Mekhidominique VERGARA [facility] 03-23-2019 pneumococcal conjuga te vaccine, 13 valent Mekhi VERGARA [facility] 03-23-2019 Seasonal trivalent influenza vaccine, adjuvanted, preservative free Shaikh Lexi WORKMAN Work Phone: [facility] 04-30-2018 influenza virus vacc ine, unspecified formulation Mekhi VERGARA [facility] 04-30-2018 Seasonal trivalent influenza vaccine, adjuvanted, preservative free Shaikh Lexi WORKMAN Work Phone: [facility] 02-13-2017 influenza virus vacc ine, unspecified formulation Mekhi VERGARA [facility] 02-13-2017 Seasonal trivalent influenza vaccine, adjuvanted, preservative free Shaikh Lexi WORKMAN Work Phone: [facility] 04-19-2015 influenza virus vacc ine, unspecified formulation Mekhi VERGARA [facility] 04-19-2015 influenza, seasonal, injectable Shaikh Lexi WORKMAN Work Phone: [facility] 04-19-2015 pneumococcal polysaccharide vaccine, 23 valent Mekhi URSULA [facility] 04-13-2015 influenza virus vacc ine, unspecified formulation Mekhi VERGARA [facility] 04-13-2015 influenza, high dose seasonal, preservative-free Shaikh Lexi WORKMAN Work Phone: [facility] 04-22-2007 influenza virus vacc ine, whole virus Shaikh Lexi WORKMAN Work Phone: [facility] 04-22-2007 influenza, whole Mekhi THOMAS [facility] Payers Date Payer Category Payer Private Health Insurance [facility] AAR SUPPLEMENT [id number] 2013-Present [phone] [address] [place] [address] Indemnity [id number] 2002 Unknown 2001 Medicare [id number] 1959 Medicare [id number] 1959 Unknown [id number] 1936 Unknown [id number] 2.16.840.1.190113.3.579.2 .593 1936 Unknown [id number] 2.16.840.1.895855.3.579.2 .593 1936 Unknown [id number] 2.16.840.1.609407.3.579.2 .593 1936 Unknown [id number] 2.16.840.1.877244.3.579.2 .593 1936 Unknown [id number] 2.16.840.1.932619.3.579.2 .593 1936 Unknown [id number] 2.16.840.1.661733.3.579.2 .593 1936 Unknown [id number] 2.16.840.1.915636.3.579.2 .593 1936 Unknown [id number] 2.16.840.1.202825.3.579.2 .593 1936 Unknown [id number] 2.16.840.1.789632.3.579.2 .593 1936 Unknown [id number] 2.16.840.1.640644.3.579.2 .593 1936 Unknown [id number] 2.16.840.1.975729.3.579.2 .593 1936 Unknown [id number] 2.16.840.1.487989.3.579.2 .593 1936 Unknown [id number] 2.16.840.1.903247.3.579.2 .593 1936 Unknown [id number] 2.16.840.1.167952.3.579.2 .593 1936 Unknown [id number] 2.16.840.1.623929.3.579.2 .593 1936 Unknown [id number] 2.16.840.1.483281.3.579.2 .593 1936 Unknown [id number] 2.16.840.1.623996.3.579.2 .593 1936 Unknown [id number] 2.16.840.1.835044.3.579.2 .593 1936 Unknown [id number] 2.16.840.1.470454.3.579.2 .593 1936 Unknown [id number] 2.16.840.1.885900.3.579.2 .593 1936 Unknown [id number] 2.16.840.1.991149.3.579.2 .593 1936 Unknown [id number] 2.16.840.1.046798.3.579.2 .593 1936 Unknown [id number] 2.16.840.1.559783.3.579.2 .593 1936 Unknown [id number] 2.16.840.1.406319.3.579.2 .593 1936 Unknown [id number] 2.16.840.1.121164.3.579.2 .593 1936 Unknown [id number] 2.16.840.1.767317.3.579.2 .593 1936 Unknown [id number] 2.16.840.1.227386.3.579.2 .196 1936 Unknown [id number] 2.16.840.1.458421.3.579.2 .196 1936 Unknown [id number] 2.16.840.1.619625.3.579.2 .196 1936 Unknown [id number] 2.16.840.1.984422.3.579.2 .196 1936 Unknown [id number] 2.16.840.1.311162.3.579.2 .196 1936 Unknown [id number] 2.16.840.1.866797.3.579.2 .196 1936 Unknown [id number] 2.16.840.1.389895.3.579.2 .1259 1936 Unknown [id number] 2.16.840.1.690822.3.579.2 .1259 1936 Unknown [id number] 2.16.840.1.659648.3.579.2 .1259 1936 Unknown [id number] 2.16.840.1.052741.3.579.2 .9 1936 Unknown [id number] 2.16.840.1.508297.3.579.2 .1259 1936 Unknown [id number] 2.16.840.1.694200.3.579.2 .1259 1936 Unknown [id number] 2.16.840.1.518968.3.579.2 .727 1936 Unknown [id number] 2.16.840.1.534377.3.579.2 .727 1936 Unknown [id number] 2.16.840.1.321689.3.579.2 .727 1936 Unknown [id number] 2.16.840.1.452242.3.579.2 .727 Social History Date Type Detail Facility Start: 10-09-2021 End: 06-16-2023 Tobacco smoking status Never smoked tobacco (finding) [facility] Start: 07-28-2023 Sex Assigned At Male F [facility] Tobacco smoking status Never [facility] [place] Start: 04-17-2022 End: 06-16-2023 Tobacco use and exposure Smokeless tobacco non-user [facility] Start: 04-17-2022 End: 05-10-2022 Alcohol intake Current drinker of alcohol (finding) [facility] Start: 04-17-2022 Alcohol Comment [facility] Start: 1935 Sex Assigned At Not on file [facility] Start: 04-07-2022 End: 05-10-2022 Exposure to SARS-CoV-2 (event) Not sure [facility] Start: 11-04-2022 Alcohol Comment Rarely [facility] Start: 07-28-2023 Alcohol intake Lifetime non-d abiel (finding) [facility] Start: 07-28-2023 History of [address] [facility] Start: 06-16-2023 Alcohol Comment caffeine: 1-2 cups per day coffee, soda [facility] Functional Status Date Assessment Result Facility 08-19-2023 Functional Status N/A [facility] 12-23-2022 Functional Status N/A [facility] 08-01-2022 Functional Status N/A [facility] 04-22-2022 Functional Status N/A [facility] Clinical Notes 10-09-2021 to 08-28-2023 Telephone Encounter - Maria Luisa Garcia RN - 05/16/2022 10:17 AM Darline Arriaga RN - 05/10/2022 2:13 PM Sindi Downing PA-C - 05/10/2022 10:50 AM EDTPatient Instructions Note Date & Type Note Facility 08-28-2023 Note [place] Cardiology - [facility] Subjective Ben Guadalupe is a 87 [...] Calculus of kidney Chronic obstructive pulmonary disease ([facility]/HCC) Dementia in other diseases classified elsewhere, unspecified severity, without behavioral disturbance, psychotic disturbance, mood disturbance, and anxiety (CMS/HCC) Sleep apnea Intracranial hemorrhage ([facility]/HCC) History of DVT (deep vein thrombosis) Presence [...] February 2022 he was admitted to the [facility] with palpitations and chest pain. He [...] for gastroenteritis. He is currently at the [facility] for rehab. C/o back pain - he [...] by oral route (more content not included)... [facility] 08-28-2023 Note Telephone visit for 1 year follow up s/p Watchman implant. He was just discharged from [facility] on Friday for nausea/vomiting and acute hypokalemia. Denies chest pain and SOB. Says his BP has been good at PT. Review of Systems Cardiovascular: Positive for leg swelling. Musculoskeletal: Positive for arthritis, back pain and muscle weakness. Neurological: Positive for weakness. All other systems reviewed and are negative. [facility] 08-25-2023 Note [id number] [facility] 08-19-2023 Hospital Discharge instructions Patient Education 08/19/2023 [...] [facility] [address], [place] [address]- Business (1) When: Unknown Comments:Office will call to schedule follow up [facility] 08-19-2023 Note Custom Cystoscopy ? Voiding [...] you have a fever over 100 degrees. [facility] 08-19-2023 Evaluation + Plan note Diagnostic Tests PendingUroVysion Fish and Urine Cyto ([facility]) 08/19/23 [facility] 03-07-2023 Note Watchman implant 08/08 Continue ASA for lifelong, may stop plavix being that > 6 months since implantation No need for Antibiotic prophylaxis at this time [facility] 03-07-2023 Note Coronary artery dise ase is stable Continue GDMT- ASA, lipitor, metoprolol continue risk factor modifications- heart healthy diet, regular exercise as tolerated and continue all medications. [facility] 03-07-2023 Note Hypertension is well controlled Continue all meds [facility] 03-07-2023 Note Continue lipitor [facility] 03-07-2023 Note [id number] VASc= 4 No anticoagulation s/p watchman implantation Rate remains controlled metoprolol and diltiazem [facility] 03-07-2023 Note Patient here for 6 m o follow up s/p Watchman implant. Doing ok from cardiac standpoint. Denies chest pain, SOB, and palpitations. Still on Plavix as of now. Review of Systems Cardiovascular: Positive for leg swelling. Hematologic/Lymphatic: Negative. Musculoskeletal: Positive for arthritis, back pain, joint pain and myalgias. All other systems reviewed and are negative. [facility] 03-07-2023 Note [facility] CARDIOLOGY PROGR ESS [...] tablet 40 mg in the morning. HYDROcodone-acetaminophen (Benton) 5-325 mg tablet Take 1 tablet by [...] Global left ventricul (more content not included)... [facility] 12-23-2022 Hospital Discharge instructions Patient Education [...] if anything looks unusual. Men with a wnzxqe-qpco-fqljbl risk for skin cancer may want to see a slunk skin curer (vertical contour band saw operator) for an annual body check. What are the benefits of screening? Cancer screening is done to look for cancer in the very early stages, before it spreads and becomes harder to treat and before you would start to notice symptoms. Finding cancer early improves the chances of successful treatment. It may save your life. Where to find more information [place] [employer]: www.cancer.org Centers for Disease Control and Prevention: www.cdc.gov National Cancer [place]: www.cancer.gov Contact a health care provider if: [...] provider. Document Revised: 11/19/2021 Document Reviewed: 05/19/2020 [employer] Patient Education 2022 [place]. Follow Up Care 04/22/2022 16:39:16 With:URSULA WORKMAN, Mekhi Oh, URL Address: [facility] [address], [place] [address]- When: Unknown [facility] 10-24-2022 Note CONSULTATION CONSULTATION DATE: 10/24/2022 [...] which is stable. MEDICATION: Current medication includes Benton 5 mg q.i.d. p.r.n. He reports it does improve his pain symptoms, improving his quality of life, level of functioning and his sleep pattern. He denies any side effects. He is also on Lyrica 75 mg at h.s., baclofen 10 mg at h.s. and Tylenol Extra Strength six pills a day, which he takes concomitantly with Benton. EXAM: Notable for patient having left sided [...] our patients to inform us about any ambf-dqm-yglcnyn medications or herbal remedies/nutritional supplements/alternative remedies. 2. [...] options with their primary care provider. [facility] 10-18-2022 Note [place] Cardiology - [facility] Subjective Ben Guadalupe is a 86 [...] February 2022 he was admitted to the [facility] with palpitations and chest pain. He [...] oriented to perso (more content not included)... [facility] 10-18-2022 Note Patient here for fol low up KINZA s/p Watchman device implant. Denies chest pain and SOB. Doing very well. Review of Systems Cardiovascular: Positive for leg swelling. Hematologic/Lymphatic: Negative. Musculoskeletal: Positive for arthritis, back pain, joint pain and myalgias. All other systems reviewed and are negative. [facility] 09-11-2022 Note [place] Cardiology - [facility] Subjective Ben Guadalupe is a 86 [...] February 2022 he was admitted to the [facility] with palpitations and chest pain. He [...] Right lower le (more content not included)... [facility] 09-11-2022 Note Patient here for 2 w [place] follow up Watchman implant. Says he feels good. Denies chest pain and SOB. Review of Systems Cardiovascular: Positive for leg swelling. Hematologic/Lymphatic: Negative. Musculoskeletal: Positive for arthritis, back pain and myalgias. All other systems reviewed and are negative. [facility] 08-06-2022 Hospital Discharge instructions Patient Education [...] [facility] [address], [place] [address] Business (1) When: Unknown Comments:Office will call to schedule follow up [facility] 07-30-2022 Note CONSULTATION CONSULTATION DATE: 07/30/2022 [...] the patient's pain. The patient currently takes Benton 5/325 on a q.i.d. basis, Lyrica 75 [...] oriented x3, engaging with very good short term/correction memory. IMPRESSION: Current working diagnosis on the [...] like to maintain. CC: Dr. Elliott [facility] 06-25-2022 Note CONSULTATION CONSULTATION DATE: 06/25/2022 [...] patient currently takes Lyrica 75 mg b.i.d., Benton 5/325 q.i.d., baclofen 10 mg q.h.s. The [...] would like to proceed. CC: Dr. Elliott [facility] 05-17-2022 Note HNO ID: [id number] Author: Minesh Levy APRN.ORDER PULLER Service: ? Author Type: Nurse Phototypesetter Operator Type: Anesthesia Procedure Notes Filed: 05/17/2022 [...] Orientation: Left Location: Hand SIGNATURE: Minesh Levy APRN.ORDER PULLER PATIENT NAME: Ben Guadalupe DATE: May 17, 2022 TIME: 11:17 AM CSN: [id number] [facility] 05-17-2022 Note HNO ID: [id number] Author: Minesh Levy APRN.ORDER PULLER Service: ? Author Type: Nurse Phototypesetter Operator Type: Anesthesia Procedure Notes Filed: 05/17/2022 10:39 AM Note Text: ANESTHESIOLOGY PROCEDURE NOTE Airway General Information Procedure Start Time/Medication Administration: 05/17/2022 10:11 AM Patient location during procedure: OR Timeout Performed Pre-procedure: timeout performed Consent Obtained: Yes Patient identity confirmed: arm band and patient Staffing Anesthesiologist: Kandice Guadalupe MD ORDER PULLER: Minesh Levy APRN.ORDER PULLER Performed by: ORDER PULLER Indications and Patient Condition Indications for airway management: anesthesia Preoxygenated: yes anesthesia circuit Patient position: sniffing Method: asleep Difficult Mask: No Final Airway Details Final airway type: supraglottic airway Number of attempts at approach: 1 Final Supraglottic Airway: i-gel Size 5 Seal Adequate: yes Failed airway: no Unrecognized esophageal intubation: no Airway not difficult SIGNATURE: Minesh Levy APRN.ORDER PULLER PATIENT NAME: Ben Guadalupe DATE: May 17, 2022 TIME: 10:38 AM CSN: [id number] [facility] 05-17-2022 Note HNO ID: [id number] Author: Shruthi Valdez RN Service: Nursing Author Type: Registered Nurse Type: Nursing Progress Note Filed: 05/17/2022 10:04 AM Note Text: Other: Dr. Ruiz and Dr. Guadalupe aware of K+ of 3.0. Awaiting orders. [facility] 05-16-2022 Miscellaneous Notes Attempt to call patient to review prep for surgery tomorrow, no answer, no voicemail available. documented in this encounter [facility] 05-10-2022 Note HNO ID: [id number] Author: Donna Arriaga RN Service: ? Author [...] Time spent on patient education: 20 minutes [facility] 05-10-2022 History of Present illness Narrative EUA, [...] education: 20 minutes documented in this encounter [facility] 05-10-2022 Note Education (KADIE) BEN GUADALUPE ([id number]) 1935 M Date Time Provider Department 05/10/22 [...] Encounter Status:Closed by DONNA ARRIAGA on 05/10/22 [facility] 05-10-2022 History and physical note HISTORY AND [...] Shashi FITCH 03/19/22 Denies any history of IN, CHF,PE, arrhythmias or murmurs. Denies CP, SOB, [...] 442 QTC Calculation (Bazett) 497 Calculated P Hometown 37 Calculated R Hometown 64 Calculated T Hometown -10 Impression NORMAL SINUS RHYTHM COMPLETE RIGHT BUNDLE BRANCH BLOCK INFERIOR T WAVE ABNORMALITY ABNORMAL ECG No results found for this or any previous visit (from the past 35464 hour(s)). OSH Cardiovascular testing ABIs 10/11/2021: Normal [...] Shashi FITCH 03/19/22 PAF (paroxysmal atrial fibrillation) ([facility]) Assessment: admitted to hospital 02/2022 with [...] pepcid Chronic kidney disease, stage 4 (severe) ([facility]) Assessment: h/o DAVID 02/2022 during admission for blood loss and PAF -pending BMP today, no recent labs Calculus of kidney Assessment: stable, kidney stones Hypothyroidism unspecified Assessment: stable on Synthroid Diabetes mellitus ([facility]) Assessment: controlled with Farxiga 10 mg [...] TIME: 1:37 PM documented in this encounter [facility] 05-09-2022 Instructions Afia Downing PA-C - 05/09/2022 12:36 PM EDT PATIENT PREOPERATIVE INSTRUCTIONS Lorraine Wilcox* has scheduled you for your procedure at this surgery center: [facility] Scheduling Office: [phone] --[address] [place] [address]. Please read below carefully for your personalized [...] or other anticoagulants without consulting with your wax bleacher or prescribing physician. - Stop Vitamin E, [...] Procedures: - YOU MUST HAVE A RESPONSIBLE SOLUTION DESIGNER TAKE YOU HOME. A FIELD HOCKEY COACH OR PRINCIPAL DATA ARCHITECT CANNOT BE MADE A RESPONSIBLE SOLUTION DESIGNER. - We recommend that a responsible person [...] call the Friday before. Your surgeon s project controls scheduler will tell you what time to call the office. - If you have not reached the departmental project controls scheduler by 5 P.M., call [phone] after 5 P.M. the day before your surgery. Please be aware that emergency situations arise, which may delay or change your surgical time. If this happens, we will notify you as soon as possible and regret any inconvenience. If you already have an Advance Directive, please fax a copy to [phone] or email to for it to be [...] Afia Downing PA-C documented in this encounter [facility] 04-25-2022 Miscellaneous Notes The Patient's granddaughter ( Milly Guadalupe) is calling to confirm surgery date, get all testing scheduled for her grandfather. Please call her at : [phone] at 11:30 AM or later, as she is at an appointment now. Thank you. documented in this encounter [facility] 04-24-2022 Miscellaneous Notes SPECIALTY CARE COORDINATION FOLLOW-UP NOTE Message left Pt to call in to discuss setting up surgery Offered 05/17/22 surgical date Any pre-operative business date within 30 days of surgical date Call back number left Signature Marika Zuñiga RN April 24, 2022 documented in this encounter [facility] 04-22-2022 Hospital Discharge instructions Patient Education [...] who: Are older than age 65. Are -[place]. Are obese. Have a family history of [...] cells. Follow these instructions at home: Take ezyb-gut-utkijei and prescription medicines only as told by [...] 06/23/2006 Document Revised: 06/05/2018 Document Reviewed: 03/03/2017 [employer] Patient Education 2020 [employer]. Follow Up Care 02/25/2022 17:01:47 With:URSULA WORKMAN, Mekhi Oh, URL Address: [facility] [address] [place] [address]- [phone] When:10/21/2022 [facility] 04-17-2022 History and physical note COLORECTAL SURGERY [...] closed Resting tone: NORMAL Squeeze tone: NORMAL Moving Consultant present: Yes Anoscopy: The patient was placed [...] treatment plan: high documented in this encounter [facility] 04-11-2022 Note CONSULTATION PROCEDURE DATE: 04/11/2022 [...] be followed up in the office. 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 His lower back feels tight, achy and spasmodic. He is having increasing bilateral lower extremity pain. Activities that aggravate his pain are standing, walking, lying, sitting and any physical activity. The use of medication, in addition to heat, decreases his pain. Medications include Lyrica 75 mg b.i.d., baclofen 10 mg q.h.s., Benton 5/325 q.i. d. and a multivitamin regimen. 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 Patient agrees with the plan of care, will be followed up post procedure. [facility] 02-14-2022 Note CONSULTATION PROCEDURE DATE: 02/14/2022 [...] be followed up in the clinic. [facility] 02-14-2022 Note CONSULTATION CONSULTATION DATE: 02/14/2022 [...] and he was in obvious distress. His Benton was increased to 5/325 q.i.d. at that time, which has been helpful. The patient states since the introduction of the Lyrica to his regimen that his Benton is back down to t.i.d. The intent [...] of this medication in addition to the Benton. Patient agrees with the plan of care and will be seen in eight weeks time unless otherwise indicated. [facility] 01-10-2022 Note CONSULTATION CONSULTATION DATE: 01/10/2022 [...] at home. Medication includes at this time Benton 5/325 t.i.d., baclofen 10 mg daily and [...] the patient and noting his distress, his Benton 5/325 will be increased to four times a day. He will be started on Lyrica 50 mg b.i.d. 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 He will receive bilateral lumbar trigger point injections in the office today as well. He will return to the clinic in six weeks' time to re-evaluate his pain pattern and efficacy of the Lyrica. Patient does agree. [facility] 01-10-2022 Note CONSULTATION PROCEDURE DATE: 01/30/2022 [...] procedure well with no overt complications. [facility] 11-29-2021 Note CONSULTATION PROCEDURE DATE: 11/29/2021 [...] will be followed up in the clinic. [facility] Signed and Approved by: CALVIN MOREJON . 12/06/2021 16:01:00 [facility] 11-29-2021 Note CONSULTATION CONSULTATION DATE: 11/29/2021 [...] lower lumbar area. It is aggravated by head of history and evening hours, standing, walking and physical activity. He does use heat daily which is helpful, in addition to Vicks VapoRub. Medications include baclofen 10 mg q.h.s., Benton 5/325 t.i.d. and a multivitamin regimen. The [...] degenerative disc. PLAN: A refill for his Benton 5/325 t.i.d. will be sent to the pharmacy. Patient will receive bilateral lumbar trigger point injections, which he agrees to receive here in the clinic. We will maintain his medications at the current regimen. He is to increase the amount of frequency of heat application and menthol heat rub. We will see the patient in six weeks' time unless otherwise indicated. [facility] Signed and Approved by: CALVIN MOREJON . 12/06/2021 16:01:00 [facility] 11-21-2021 Note OPERATIVE NOTE OPERATION DATE: [...] in good condition. CC: Shaikh Lexi M.D. [facility] Signed and Approved by: DR YENNI STANLEY . 11/28/2021 10:45:00 [facility] 10-09-2021 Hospital Discharge instructions Patient Education [...] 03/19/2005 Document Revised: 10/08/2018 Document Reviewed: 10/08/2018 [employer] Patient Education 2020 [employer]. Follow Up Care 10/01/2021 07:48:54 With:Iraida James CNP Address: When:3 months only if needed [facility] Evaluation + Plan note Future Appointments Appointment Date:10/16/2021 02:20:00 PM Scheduled Provider: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 MD Location:[facility] Appointment Type:[facility] Evaluation + Plan note Future Appointments Appointment Date:04/30/2022 01:40:00 PM Scheduled Provider: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 MD Location:[facility] Appointment Type:[place] [id number] Appointment Date:10/21/2022 03:15:00 PM Scheduled Provider:Mekhi VERGARA MD Location:[facility] Appointment Type:URO Office Visit Diagnostic Tests PendingPSA Total 04/22/22 [facility] Evaluation + Plan note Future Appointments Appointment Date:10/21/2022 03:15:00 PM Scheduled Provider:Mekhi VERGARA MD Location:[facility] Appointment Type:URO Office Visit Diagnostic Tests PendingUroVysion Fish and Urine Cyto ([facility]) 08/06/22 [facility] Evaluation + Plan note Future Appointments Appointment Date:06/23/2023 03:00:00 PM Scheduled Provider:Mekhi VERGARA MD Location:[facility] Appointment Type:URO Office Visit Diagnostic Tests PendingPSA Total 12/23/22 [facility] Evaluation note Diagnosis Fourth degree hemorrhoids- Primary Unspecified hemorrhoids with other complication [facility] Diagnosis Pre-op evaluation- Primary Preoperative [...] Coronary atherosclerosis of unspecified type of vessel, [place] or graft PAF (paroxysmal atrial fibrillation) (HCC) [...] with other complication documented in this encounter [facility] note* Diagnosis Chronic venous insufficiency of lower extremity Chronic heart failure with preserved ejection fraction (CMS/HCC) Chronic bilateral low back pain with bilateral sciatica [facility] Narrative No data available for this section [facility] Discharge instructions No data available for this section General Surgery [employer] Progress note No data available for this section [facility] Summary Purpose Family History No Family [...] and content) DATE CREATED AUTHOR 12/31/[address] [facility] DATE CREATED AUTHOR AUTHOR'S ORGANIZ ATION 05/31/2022 [facility] DATE CREATED AUTHOR AUTHOR'S ORGANIZ ATION 11/02/2022 [facility] DATE CREATED AUTHOR AUTHOR'S ORGANIZ ATION 06/20/2023 [facility] DATE CREATED AUTHOR AUTHOR'S ORGANIZ ATION 07/29/2023 [facility] DATE CREATED AUTHOR AUTHOR'S ORGANIZ ATION 09/05/2023 [facility] DATE CREATED AUTHOR AUTHOR'S ORGANIZ ATION 01/08/2024 [facility] Source Comments (unrecognize d section and content) In the event this informatio n is protected by the Federal Confidentiality of Alcohol and Drug Abuse Patient Records regulations: The Federal rules restrict any use of the information to criminally investigate or prosecute any alcohol or drug abuse patient.[facility] the event this information is protected by the Federal Confidentiality of Alcohol and Drug Abuse Patient Records regulations: The Federal rules restrict any use of the information to criminally investigate or prosecute any alcohol or drug abuse patient.[facility] the event this information is protected by the Federal Confidentiality of Alcohol and Drug Abuse Patient Records regulations: The Federal rules restrict any use of the information to criminally investigate or prosecute any alcohol or drug abuse patient.[facility] the event this information is protected by the Federal Confidentiality of Alcohol and Drug Abuse Patient Records regulations: The Federal rules restrict any use of the information to criminally investigate or prosecute any alcohol or drug abuse patient.[facility] the event this information is protected by the Federal Confidentiality of Alcohol and Drug Abuse Patient Records regulations: The Federal rules restrict any use of the information to criminally investigate or prosecute any alcohol or drug abuse patient.[facility] the event this information is protected by the Federal Confidentiality of Alcohol and Drug Abuse Patient Records regulations: The Federal rules restrict any use of the information to criminally investigate or prosecute any alcohol or drug abuse patient.[facility] Reason for Visit (unrecogniz ed section and content) 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 Appointment Reason Comments Pre-Op Visit Reason Comments Patient Education Care Teams (unrecognized sec tion and content) Ramp Attendant Relationship Specialty Start Date End Date Franky Veronica (Fax) PCP - General Internal Medicine 06/16/12 Ramp Attendant Relationship Specialty Start Date End Date Franky Veronica (Fax) PCP - General Internal Medicine 06/16/12 Ramp Attendant Relationship Specialty Start Date End Date Franky Veronica (Fax) PCP - General Internal Medicine 06/16/12 Ramp Attendant Relationship Specialty Start Date End Date Franky Veronica (Fax) PCP - General Internal Medicine 06/16/12 Ramp Attendant Relationship Specialty Start Date End Date Franky Veronica (Fax) PCP - General Internal Medicine 06/16/12 Ramp Attendant Relationship Specialty Start Date End Date Shaikh [...] BE BASED ON THE PRIMARY CLINICAL RECORDS. [employer] [facility]. provides no warranty or guarantee of the accuracy or completeness of information in this document.
[2024-05-22 19:59] LABS: Lactate/Lactic Acid 3.6 mmol/L (0.4-2.0)
[2024-05-22] MEDS: METOPROLOL TARTRATE 25 MG TABLET PO (21:29)
[2024-05-22] MEDS: MAGNESIUM OXIDE 400 MG TABLET PO (21:29)
[2024-05-22] MEDS: PREGABALIN 100 MG CAPSULE PO (21:29)
[2024-05-22] MEDS: DONEPEZIL HCL 10 MG TABLET PO (21:29)
[2024-05-22] MEDS: LACTATED RINGER'S SOLUTION 1,000 ML 75 ML IV (21:29)
[2024-05-22] MEDS: INSULIN ASPART 300 UNIT/3 ML PEN SUBQ (21:29)
[2024-05-22] MEDS: HEPARIN SODIUM (PORCINE) 5,000 UNIT/ML VIAL 5000 UNIT SUBQ (21:29)
[2024-05-22 21:39] LABS: Glucometer 377 mg/dL (74-106)
[2024-05-22 23:28] LABS: Lactate/Lactic Acid 3.8 mmol/L (0.4-2.0)
[2024-05-23] VITALS (18 sets, daily range): BP systolic 87–172; BP diastolic 52–77; PULSE 80–119; TEMP 36.4–37.1; O2SAT 91–94
[2024-05-23] MEDS: LEVOTHYROXINE SODIUM 25 MCG TABLET 50 MCG PO (05:55)
[2024-05-23] MEDS: PREGABALIN 100 MG CAPSULE PO ×3 (05:57→21:10)
[2024-05-23 06:26] LABS: Basophils Percent Auto 0.2 % (0.2-2.0); Hematocrit 41.3 % (42.0-54.0); Hemoglobin 13.7 g/dL (14.0-18.0); Immature Granulocytes Abs Auto 0.15 10^3/uL (0.00-0.03); Immature Granulocytes Pct Auto 0.9 % (0.0-0.5); Lymphocytes Absolute Auto 1.2 10^3/uL (1.2-3.8); Lymphocytes Percent Auto 7.1 % (20.5-60.0); Mean Corpuscular HGB Conc 33.2 g/dL (29.9-35.2); Mean Corpuscular Hemoglobin 28.5 pg (25.9-34.0); Mean Platelet Volume 10.9 fL (9.5-13.5); Monocytes Absolute Auto 1.2 10^3/uL (0.3-0.8); Monocytes Percent Auto 6.9 % (1.7-12.0); Neutrophils Absolute Auto 14.3 10^3/uL (1.4-6.5); Neutrophils Percent Auto 84.9 % (43.0-75.0); Platelet Count 110 10^3/uL (150-450); Red Cell Distribution Width 13.4 % (11.0-15.0); White Blood Count 16.9 10^3/uL (4.0-11.0)
[2024-05-23 06:58] LABS: Alanine Aminotransferase 15 U/L (16-63); Albumin Globulin Ratio 0.8; Albumin Level 2.5 g/dL (3.4-5.0); Alkaline Phosphatase 93 U/L (46-116); Aspartate Amino Transferase 10 U/L (15-37); Bilirubin Total 0.6 mg/dL (0.2-1.0); Calcium 8.3 mg/dL (8.5-10.1); Carbon Dioxide 26.2 mmol/L (21.0-32.0); Chloride 104 mmol/L (98-107); Estimated GFR (African America 35 (>=60 mL/min/1.73m^2); Estimated GFR (Non-African Ame 29 (>=60 mL/min/1.73m^2); Globulin 3.3 g/dL; Glucose 299 mg/dL (74-106); Magnesium 1.5 mg/dL (1.8-2.4); Potassium 4.2 mmol/L (3.5-5.1); Sodium 143 mmol/L (136-145); Thyroid Stimulating Hormone 1.827 uIU/mL (0.358-3.740); Total Protein 5.8 g/dL (6.4-8.2)
[2024-05-23 07:32] LABS: Glucometer 294 mg/dL (74-106)
--- NOTE | 2024-05-23 09:07 | P.HP_ITS ---
HPI H&P: HPI History of Present Illness Chief complaint: alter mental status UTI HYPERGLYCEMIA Narrative: This is an 88-year-old male patient with a past medical history of DM 2 non insulin dependent, severe lumbar stenosis and chronic lumbar pain, BPH, history of prostate cancer, hypertension, and hyperlipidemia. He lives home alone but has hospice/palliative care services and nursing care twice a day along with family support. His son is present at bedside this morning. Yesterday, became more lethargic and was brought to the ER. Patient has indwelling Dodge Catheter and Home health nursing has been changing it because of frequent clogging. Son notes the Dodge has been present since October for urinary retention. He use to follow with Dr. Garcia but the hospice nurses have just been changing it as needed. In the ER Patient was found to have ACUTE on chronic renal failure, leuk ocytosis, positive UA and elevated Lactate level of 2.8, up to 3.8. He was hypotensive and also tachycardic with low grade temp. Patient was given some IVF and given rocephin. He was admitted with sepsis with metabolic encephalopathy secondary to Acute UTI. This morning, WBC's have increased, Creatinine has worsened and lactate has increased. It appears that prior hospitalization patient had ECOLI and ENTEROCCUS in his urine. This morning i have switched from Rocephin to Levaquin to cover these previous bacteria. He has indwelling Dodge which makes it more complicated. He also has diabetes making him more immunocompromised. I have switched him to inpatient status today due to his worsening condition. His son also mentions recently added was Metformin. This has been held. He is very somno lent this morning, will open eyes to name but does not talk much. His son agrees that he is DNRCC status but agrees to Urology consult tomorrow to see if we have any other options than Dodge Catheter. Son is aware that overall prognosis is not great but is amendable to IVF and antibiotics for now. Opioid HPI Opioid Management Most Recent Pain and Opioid Data: Last Pain Scale 8 05/23/24 09:34 05/23/24 Last Pain Intensity 10 09/16/23 11:39 09/16/23 Last Pain Assessment 05/23/24 12:25 Last MAR Pain Assessment 05/23/24 10:22 Last ORT Total Score 0 05/22/24 18:31 05/22/24 Last ORT Risk Category Low Risk 05/22/24 18:31 05/22/24 Review of Systems ROS Status of ROS unobtainable due to mental status PFSH PFSH Medical History (Updated 05/23/24 @ 13:11 by Liza Mark DO) Chronic indwelling Dodge catheter ?Z97.8 - Presence of other specified devices (ICD-10) E. coli UTI ?N39.0 - Urinary tract infection, site not specified (ICD-10) ?B96.20 - Unspecified Escherichia coli [E. coli] as the cause of diseases classified elsewhere (ICD-10) Yeast infection ?B37.9 - Candidiasis, unspecified (ICD-10) Cellulitis of scrotum ?N49.2 - Inflammatory disorders of scrotum (ICD-10) Decubitus ulcer of sacral area ?L89.159 - Pressure ulcer of sacral region, unspecified stage (ICD-10) DDD (degenerative disc disease), lumbar ?M51.36 - Other intervertebral disc degeneration, lumbar region (ICD-10) Lumbar radiculopathy ?M54.16 - Radiculopathy, lumbar region (ICD-10) Intractable low back pain ?M54.59 - Other low back pain (ICD-10) Unable to ambulate ?R26.2 - Difficulty in walking, not elsewhere classified (ICD-10) Chronic kidney disease ?N18.9 - Chronic kidney disease, unspecified (ICD-10) Spondylosis ?M47.9 - Spondylosis, unspecified (ICD-10) Radiculopathy ?M54.10 - Radiculopathy, site unspecified (ICD-10) Chronic diastolic heart failure ?I50.32 - Chronic diastolic (congestive) heart failure (ICD-10) Type 2 diabetes mellitus ?E11.9 - Type 2 diabetes mellitus without complications (ICD-10) Afib ?I48.91 - Unspecified atrial fibrillation (ICD-10) Spinal stenosis ?M48.00 - Spinal stenosis, site unspecified (ICD-10) Peripheral edema ?R60.0 - Localized edema (ICD-10) Hypertension ?I10 - Essential (primary) hypertension (ICD-10) Lumbar spondylosis ?M47.816 - Spondylosis without myelopathy or radiculopathy, lumbar region (ICD-10) Chronic low back pain ?M54.50 - Low back pain, unspecified (ICD-10) ?G89.29 - Other chronic pain (ICD-10) Anxiety ?F41.9 - Anxiety disorder, unspecified (ICD-10) Shortness of breath ?R06.02 - Shortness of breath (ICD-10) 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 ?R33.9 - Retention of urine, unspecified (ICD-10) Ambulatory dysfunction ?R26.2 - Difficulty in walking, not elsewhere classified (ICD-10) HLD (hyperlipidemia) ?E78.5 - Hyperlipidemia, unspecified (ICD-10) Depression with anxiety ?F41.8 - Other specified anxiety disorders (ICD-10) Acute hypokalemia ?E87.6 - Hypokalemia (ICD-10) Intractable low back pain ?M54.59 - Other low back pain (ICD-10) CKD stage 3 due to type 2 diabetes mellitus ?E11.22 - Type 2 diabetes mellitus with diabetic chronic kidney disease (ICD- 10) ?N18.30 - Chronic kidney disease, stage 3 unspecified (ICD-10) Lumbar stenosis with neurogenic claudication ?M48.062 - Spinal stenosis, lumbar region with neurogenic claudication (ICD- 10) Osteoarthritis of right knee ?M17.11 - Unilateral primary osteoarthritis, right knee (ICD-10) Chronic pain syndrome ?G89.4 - Chronic pain syndrome (ICD-10) Chronic prescription opiate use ?Z79.891 - laborer cutting tool (current) use of opiate analgesic (ICD-10) Osteoarthritis, 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 - Primary osteoarthritis, unspecified shoulder (ICD-10) Right shoulder pain ?M25.511 - Pain in right shoulder (ICD-10) Lumbar radiculopathy ?M54.16 - Radiculopathy, lumbar region (ICD-10) Abdominal pain ?R10.9 - Unspecified abdominal pain (ICD-10) Nausea & vomiting ?R11.2 - Nausea with vomiting, unspecified (ICD-10) Esophagitis ?K20.90 - Esophagitis, unspecified without bleeding (ICD-10) Muscle spasm ?M62.838 - Other muscle spasm (ICD-10) Lumbar stenosis ?M48.061 - Spinal stenosis, lumbar region without neurogenic claudication (ICD-10) Retraction of blood clot ?I74.9 - Embolism and thrombosis of unspecified artery (ICD-10) Inguinal hernia ?K40.90 - Unilateral inguinal hernia, without obstruction or gangrene, not specified as recurrent (ICD-10) Presence of Watchman left atrial appendage closure device ?Z95.818 - Presence of other cardiac implants and grafts (ICD-10) Low back pain ?M54.50 - Low back pain, unspecified (ICD-10) Rheumatoid arthritis ?M06.9 - Rheumatoid arthritis, unspecified (ICD-10) Osteoarthritis ?M19.90 - Unspecified osteoarthritis, unspecified site (ICD-10) Gout ?M10.9 - Gout, unspecified (ICD-10) DVT (deep venous thrombosis) ?I82.409 - Acute embolism and thrombosis of unspecified deep veins of unspecified lower extremity (ICD-10) Hearing deficit ?H91.90 - Unspecified hearing loss, unspecified ear (ICD-10) IBS (irritable bowel syndrome) ?K58.9 - Irritable bowel syndrome without diarrhea (ICD-10) Acid reflux ?K21.9 - Gastro-esophageal reflux disease without esophagitis (ICD-10) Hypothyroid ?E03.9 - Hypothyroidism, unspecified (ICD-10) Diabetes 1.5, managed as type 2 ?E13.9 - Other specified diabetes mellitus without complications (ICD-10) Kidney stone ?N20.0 - Calculus of kidney (ICD-10) Prostate cancer ?C61 - Malignant neoplasm of prostate (ICD-10) CPAP (continuous positive airway pressure) dependence ?Z99.89 - Dependence on other enabling machines and devices (ICD-10) Sleep apnea ?G47.30 - Sleep apnea, unspecified (ICD-10) Hypercholesterolemia ?E78.00 - Pure hypercholesterolemia, unspecified (ICD-10) Surgical History H/O transurethral resection of bladder tumor (TURBT) ?Z98.890 - Other specified postprocedural states (ICD-10) ?Z86.03 - Personal history of neoplasm of uncertain behavior (ICD-10) H/O arthroscopy of knee ?Z98.890 - Other specified postprocedural states (ICD-10) S/P tonsillectomy and adenoidectomy ?Z90.89 - Acquired absence of other organs (ICD-10) Previous back surgery ?Z98.890 - Other specified postprocedural states (ICD-10) H/O neck surgery ?Z98.890 - Other specified postprocedural states (ICD-10) Family History Other Family history of diabetes mellitus Social History Within the past year, how often did you have a drink containing alcohol: never Score interpretation: A score less than 4 is consistent with normal alcohol consumption. Smoking status: Never smoker Non-prescribed substance use: denies use Previous occupational history: retired Known occupational exposures/hazards: No Highest level of school completed/degree received: high school graduate Are you now , , , , never or living with a partner: In a typical week, how many times do you talk on the telephone with family, friends, or neighbors: 3 or more times per week How often do you get together with friends or relatives: 3 or more times per week How often do you attend episcopal or bahai services: never Do you belong to any clubs or organizations such as episcopal groups unions, [employer] or athletic groups, or school groups: no Total score: 1 Score interpretation: A score of less than or equal to 1 indicates the most socially isolated. Little interest or pleasure in doing things: not at all Feeling down, depressed, or hopeless: not at all Feel stressed/tense/nervous/anxious/difficulty sleeping: not at all Do you think of yourself as: straight/heterosexual Gender Identity: male Meds Home Medications and Allergies Home Medications ?Medication ?Instructions ?Recorded ?Confirmed ?Type albuterol sulfate 90 mcg/actuation 1 inh inhalation Q4H PRN shortness 12/27/22 05/22/24 History aerosol inhaler (ProAir HFA) of breath or wheezing allopurinol 300 mg tablet 300 mg PO DAILY 12/27/22 05/22/24 History cholecalciferol (vitamin D3) 25 50 mcg PO DAILY 12/27/22 05/22/24 History mcg (1,000 unit) capsule (Vitamin D3) levothyroxine 50 mcg tablet 50 mcg PO DAILY 12/27/22 05/22/24 History nitroglycerin 0.4 mg sublingual 0.4 mg sublingual Q5M PRN chest 12/27/22 05/22/24 History tablet (Nitrostat) pain aspirin 81 mg capsule 81 mg PO DAILY 01/09/23 05/22/24 History diltiazem HCl 180 mg 180 mg PO DAILY 01/09/23 05/22/24 History capsule,extended release 24 hr famotidine 20 mg tablet 20 mg PO DAILY 01/09/23 05/22/24 History ferrous sulfate 325 mg (65 mg 325 mg PO .every other day 01/09/23 05/22/24 History iron) tablet fluticasone propionate 50 2 spray intranasal DAILY PRN nasal 01/09/23 05/22/24 History mcg/actuation nasal congestion spray,suspension (Flonase Allergy Relief) magnesium aspart,citrate,oxide 400 mg PO BEDTIME 01/09/23 05/22/24 History metoprolol tartrate 25 mg tablet 25 mg PO BID 01/09/23 05/22/24 History psyllium husk 0.4 gram capsule 0.4 g PO DAILY 01/09/23 05/22/24 History (Metamucil) tamsulosin 0.4 mg capsule (Flomax) 0.4 mg PO DAILY 01/09/23 05/22/24 History atorvastatin 20 mg tablet 20 mg PO DAILY 01/10/23 05/22/24 History baclofen 10 mg tablet 10 mg PO BID muscle spasm 01/10/23 05/22/24 History Lactobacillus rhamnosus GG 10 1 cap PO DAILY 07/18/23 05/22/24 History billion cell capsule (Culturelle) glipizide 5 mg tablet 5 mg PO BID 07/18/23 05/22/24 History multivitamin 1 tab PO BID 07/18/23 05/22/24 History pregabalin 100 mg capsule (Lyrica) 100 mg PO TID 5 days #15 caps 08/25/23 05/22/24 Rx acetaminophen 500 mg tablet 1,000 mg PO Q8H PRN pain 09/13/23 05/22/24 History (Tylenol Extra Strength) potassium chloride 20 mEq 20 meq PO DAILY 09/13/23 05/22/24 History tablet,extended release(part/cryst) (Klor-Con M) fluconazole 150 mg tablet 150 mg PO DAILY #7 tabs 09/16/23 05/22/24 Rx furosemide 20 mg tablet 40 mg (2 x 20 mg) PO DAILY #0 tabs 09/16/23 05/22/24 Rx losartan 100 mg tablet 50 mg (1/2 x 100 mg) PO DAILY #0 09/16/23 05/22/24 Rx tabs guaifenesin 600 mg tablet, 600 mg PO Q12H 05/22/24 05/22/24 History extended release 12 hr (Mucinex) loperamide 2 mg tablet 2 mg PO Q6H PRN loose stool 05/22/24 05/22/24 History metformin 500 mg tablet,extended 500 mg PO DAILY 05/22/24 05/22/24 History release 24 hr methenamine hippurate 1 gram tablet 1 g PO Q12H 05/22/24 05/22/24 History metoclopramide HCl 5 mg tablet 5 mg PO Q6H PRN nausea and vomiting 05/22/24 05/22/24 History morphine 30 mg tablet,extended 30 mg PO Q12H 05/22/24 05/23/24 History release ondansetron HCl 8 mg tablet 8 mg PO Q8H PRN nausea and vomiting 05/22/24 05/22/24 History donepezil 10 mg tablet 10 mg PO DAILY 05/23/24 05/23/24 History sennosides 8.6 mg-docusate sodium 1 tab-cap PO DAILY 05/23/24 05/23/24 History 50 mg tablet (Stimulant Laxative Plus) Allergies Allergy/AdvReac Type Severity Reaction Status Date / Time tizanidine (From Zanaflex) Allergy Unknown Verified 07/18/23 19:12 acetaminophen (From Percocet) AdvReac Mild Vomiting Verified 07/18/23 19:12 cyclobenzaprine (From AdvReac Mild Hallucinati Verified 07/18/23 19:12 Flexeril) ng oxycodone (From Percocet) AdvReac Mild Vomiting Verified 07/18/23 19:12 tramadol AdvReac Mild Vomiting Verified 07/18/23 19:12 Exam Narrative Exam Narrative: General: Patient is somnolent, but opens eyes to name, does not answer questions. Skin: no visible rashes, or ulcers Head: atraumatic, acephalic Eyes: PERRLA, no nystagmus present, conjunctiva clear, no scleral icterus Neck: no masses palpated, normal thyroid Heart: Normal rate and rhythm, no murmurs/rubs/gallops Lungs: no audible wheezes, crackles and normal breath sounds all lung roper Abdomen: Normal audible bowel sounds, no distension, No palpable masses, no organomegaly, no rebound/guarding/ or rigidity Musculoskeletal: no swelling bilateral lower extremities Neuro: CN II-X grossly intact Constitutional Vital Signs, click to edit/add: Last Vital Signs Temp 98.5 F 05/23/24 08:26 Pulse 94 H 05/23/24 08:26 Resp 18 05/23/24 08:26 BP 135/73 05/23/24 08:26 Pulse Ox 91 L 05/23/24 08:26 O2 Del Method Room Air 05/23/24 08:26 O2 Flow Rate 2 05/22/24 15:59 Results Labs Labs: Short CBC 05/22/24 05/23/24 Range/Units 16:05 05:41 WBC 11.7 H 16.9 H (4.0-11.0) 10^3/uL Hgb 14.9 13.7 L (14.0-18.0) g/dL Hct 44.3 41.3 L (42.0-54.0) % Plt Count 110 L 110 L (150-450) 10^3/uL BMP 05/22/24 05/23/24 16:05 05:41 Sodium 138 143 Potassium 3.9 4.2 Chloride 100 104 Carbon Dioxide 24.4 26.2 BUN 16.0 24.0 H Creatinine 1.86 H 2.19 H Glucose 407 H 299 H Calcium 8.5 8.3 L Liver Function 05/22/24 05/23/24 Range/Units 16:05 05:41 Total Bilirubin 0.8 0.6 (0.2-1.0) mg/dL AST 14 L 10 L (15-37) U/L ALT 17 15 L (16-63) U/L Alkaline Phosphatase 120 H 93 (46-116) U/L Albumin 3.0 L 2.5 L (3.4-5.0) g/dL Urine 05/22/24 Range/Units 16:05 Urine Color Lt. yellow (YELLOW) Urine Clarity Clear (CLEAR) Urine pH 7.5 (5.0-9.0) Ur Specific [place] 1.015 (1.005-1.025) Urine Protein Trace (NEG/TRACE) mg/dL Urine Glucose (UA) >=1000 A (NEGATIVE) mg/dL Assessment and Plan Assessment and Plan (1) Sepsis with metabolic encephalopathy: Assessment and Plan: stop rocephin, place on IV levaquin based on previous culture results. patient with tachycardia, fever, elevated lactate, leukocytosis. Monitor Urine output (2) Bacterial UTI: Assessment and Plan: urine culture pending; continue levaquin. Urology consult tomorrow to see if any other options from Dodge Cath. (3) DAVID (acute kidney injury): Assessment and Plan: does have CKD, but Cr up to 2.19 today (4) Hypomagnesemia: Assessment and Plan: replace with IV 2grams (5) Chronic indwelling Dodge catheter: Assessment and Plan: complicated UTI, continue levaquin. awaiting culture (6) DDD (degenerative disc disease), lumbar: Assessment and Plan: holding sedative pain medications right now. Qualifiers: Disc-related pain type: unspecified whether pain present Qualified Code(s): M51.369 - Other intervertebral disc degeneration, lumbar region without mention of lumbar back pain or lower extremity pain (7) Lumbar radiculopathy: Assessment and Plan: holding pain medication. 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 treating inspector insulin use: without skilled nursing use Qualified Code(s): E11.9 - Type 2 diabetes mellitus without complications (11) Afib: Assessment and Plan: continue home meds Qualifiers: Atrial fibrillation type: paroxysmal Qualified Code(s): I48.0 - Paroxysmal atrial fibrillation (12) HLD (hyperlipidemia): Assessment and Plan: continue home meds Qualifiers: Hyperlipidemia type: unspecified Qualified Code(s): E78.5 - Hyperlipidemia, unspecified (13) CKD stage 3 due to type 2 diabetes mellitus: (14) Prostate cancer: Plan Patient is a DNRCC continue aspirin for DVT prophylaxis Patient status was changed to inpatient status due to acute sepsis and worsening status. Urinary Catheter Management Urinary Catheter Management Urethral: Cath placed during this visit: no
[2024-05-23] MEDS: ALLOPURINOL 300 MG TABLET PO (09:14)
[2024-05-23] MEDS: FLUCONAZOLE 150 MG TABLET PO (09:14)
[2024-05-23] MEDS: METOPROLOL TARTRATE 25 MG TABLET PO ×2 (09:14→21:10)
[2024-05-23] MEDS: FUROSEMIDE 40 MG TABLET PO (09:14)
[2024-05-23] MEDS: LOSARTAN POTASSIUM 50 MG TABLET PO (09:15)
[2024-05-23] MEDS: ACETAMINOPHEN 325 MG TABLET 650 MG PO ×2 (09:15→21:23)
[2024-05-23] MEDS: POTASSIUM CHLORIDE 10 MEQ ER TABLET 20 MEQ PO (09:15)
[2024-05-23] MEDS: FAMOTIDINE 20 MG TABLET PO (09:15)
[2024-05-23] MEDS: HEPARIN SODIUM (PORCINE) 5,000 UNIT/ML VIAL 5000 UNIT SUBQ (09:15)
[2024-05-23] MEDS: ASPIRIN 81 MG TABLET.DR PO (09:15)
[2024-05-23] MEDS: DILTIAZEM HCL 180 MG CAP.ER.24H PO (09:15)
[2024-05-23] MEDS: TAMSULOSIN HCL 0.4 MG CAPSULE PO (09:15)
[2024-05-23] MEDS: MAGNESIUM SULFATE IN WATER 2 GM/50 ML PREMIX IV (09:16)
[2024-05-23] MEDS: LACTATED RINGER'S SOLUTION 1,000 ML 75 ML IV ×2 (09:16→21:09)
[2024-05-23] MEDS: INSULIN ASPART 300 UNIT/3 ML PEN SUBQ ×3 (09:16→21:12)
[2024-05-23] MEDS: LEVOFLOXACIN IN DEXTROSE 5 % 500 MG/100 ML PREMIX 100 MG IV (09:17)
[2024-05-23 11:37] LABS: Glucometer 301 mg/dL (74-106)
[2024-05-23] MEDS: FERROUS SULFATE 325 MG TABLET PO (14:19)
[2024-05-23 16:29] LABS: Glucometer 197 mg/dL (74-106)
[2024-05-23 19:41] LABS: Glucometer 237 mg/dL (74-106)
[2024-05-23] MEDS: ATORVASTATIN CALCIUM 20 MG TABLET PO (21:10)
[2024-05-23] MEDS: MAGNESIUM OXIDE 400 MG TABLET PO (21:10)
[2024-05-23] MEDS: DONEPEZIL HCL 10 MG TABLET PO (21:10)
[2024-05-24] VITALS (49 sets, daily range): BP systolic 108–149; BP diastolic 67–79; PULSE 17–107; TEMP 36.8–37.9; O2SAT 90–96
[2024-05-24] MEDS: ACETAMINOPHEN 325 MG TABLET 650 MG PO (04:48)
[2024-05-24] MEDS: PREGABALIN 100 MG CAPSULE PO ×3 (05:02→21:25)
[2024-05-24 05:58] LABS: Basophils Percent Auto 0.1 % (0.2-2.0); Hematocrit 34.9 % (42.0-54.0); Hemoglobin 11.7 g/dL (14.0-18.0); Immature Granulocytes Abs Auto 0.07 10^3/uL (0.00-0.03); Immature Granulocytes Pct Auto 0.7 % (0.0-0.5); Lymphocytes Absolute Auto 0.4 10^3/uL (1.2-3.8); Mean Corpuscular HGB Conc 33.5 g/dL (29.9-35.2); Mean Corpuscular Hemoglobin 28.8 pg (25.9-34.0); Mean Platelet Volume 10.6 fL (9.5-13.5); Monocytes Absolute Auto 0.3 10^3/uL (0.3-0.8); Monocytes Percent Auto 3.2 % (1.7-12.0); Neutrophils Absolute Auto 9.1 10^3/uL (1.4-6.5); Platelet Count 81 10^3/uL (150-450); Red Blood Count 4.06 10^6/uL (4.70-6.10); Red Cell Distribution Width 13.3 % (11.0-15.0); White Blood Count 9.9 10^3/uL (4.0-11.0)
[2024-05-24 06:16] LABS: Lactate/Lactic Acid 1.5 mmol/L (0.4-2.0)
[2024-05-24] MEDS: LEVOTHYROXINE SODIUM 25 MCG TABLET 50 MCG PO (06:21)
[2024-05-24 06:23] LABS: Alanine Aminotransferase 22 U/L (16-63); Albumin Globulin Ratio 0.6; Alkaline Phosphatase 85 U/L (46-116); Anion Gap 13.6; Aspartate Amino Transferase 27 U/L (15-37); BUN Creatinine Ratio 11.5; Bilirubin Total 0.6 mg/dL (0.2-1.0); Calcium 7.8 mg/dL (8.5-10.1); Chloride 98 mmol/L (98-107); Estimated GFR (African America 39 (>=60 mL/min/1.73m^2); Estimated GFR (Non-African Ame 32 (>=60 mL/min/1.73m^2); Globulin 3.2 g/dL; Glucose 218 mg/dL (74-106); Magnesium 1.7 mg/dL (1.8-2.4); Potassium 3.6 mmol/L (3.5-5.1); Sodium 134 mmol/L (136-145); Total Protein 5.2 g/dL (6.4-8.2)
[2024-05-24 07:40] LABS: Glucometer 245 mg/dL (74-106)
--- NOTE | 2024-05-24 08:09 | PM.PN ---
Progress Note: Subjective Subjective Interval history: Patient sitting up in bed and is more alert today, smiles, answers questions. Son is at bedside. Discussed improving labs with Jenny. Patient has been afebrile overnight. He denies any complaints currently. Son, reiterates story from yesterday, that they have had a difficult time with the Dodge Catheter, frequent infections, changes, and clogging. Appreciates Urology input. Exam Narrative Exam Narrative: General: Patient is alert, answers questions, aware of person, not place or time. Skin: no visible rashes, or ulcers Head: atraumatic, acephalic Eyes: PERRLA, no nystagmus present, conjunctiva clear, no scleral icterus Neck: no masses palpated, normal thyroid Heart: Normal rate and rhythm, no murmurs/rubs/gallops Lungs: no audible wheezes, crackles and normal breath sounds all lung roper Abdomen: Normal audible bowel sounds, no distension, No palpable masses, no organomegaly, no rebound/guarding/ or rigidity Musculoskeletal: +1 pitting/ swelling bilateral lower extremities Neuro: CN II-X grossly intact Constitutional Vital Signs, click to edit/add: Last Vital Signs Temp 99.4 F 05/24/24 07:19 Pulse 86 05/24/24 08:00 Resp 18 05/24/24 07:19 BP 108/67 05/24/24 07:19 Pulse Ox 92 L 05/24/24 07:19 O2 Del Method Room Air 05/24/24 07:19 O2 Flow Rate 2 05/22/24 15:59 Progress Note: Objective Labs Labs: Short CBC 05/24/24 Range/Units 05:17 WBC 9.9 (4.0-11.0) 10^3/uL Hgb 11.7 L (14.0-18.0) g/dL Hct 34.9 L (42.0-54.0) % Plt Count 81 L (150-450) 10^3/uL BMP 05/24/24 05:17 Sodium 134 L Potassium 3.6 Chloride 98 Carbon Dioxide 26.0 BUN 23.0 H Creatinine 2.00 H Glucose 218 H Calcium 7.8 L Liver Function 05/24/24 Range/Units 05:17 Total Bilirubin 0.6 (0.2-1.0) mg/dL AST 27 (15-37) U/L ALT 22 (16-63) U/L Alkaline Phosphatase 85 (46-116) U/L Albumin 2.0 L (3.4-5.0) g/dL Progress Note: A&P Assessment and Plan (1) Sepsis with metabolic encephalopathy: Assessment and Plan: mentation is improving. Labs and vitals improving. Urine culture and blood cultures pending. Continue Levaquin IV. (2) Bacterial UTI: Assessment and Plan: previous culture positive for Enteroccus and Ecoli, treating with Levaquin currently. Urine culture pending. (3) DAVID (acute kidney injury): Assessment and Plan: Renally dose medications. Stop IVF today. Cr improving 2.18 to 2.0 today. (4) Hypomagnesemia: Assessment and Plan: continue Oral replacement. (5) Chronic indwelling Dodge catheter: Assessment and Plan: Problematic and complicates infections. Urology Consult for guidance or any other options. (6) DDD (degenerative disc disease), lumbar: Assessment and Plan: holding morphine Baclofen due to drowsiness, continue with lyrica Qualifiers: Disc-related pain type: unspecified whether pain present Qualified Code(s): M51.369 - Other intervertebral disc degeneration, lumbar region without mention of lumbar back pain or lower extremity pain (7) Lumbar radiculopathy: Assessment and Plan: see #6 (8) Yeast infection: Assessment and Plan: complete fluconazole (9) Chronic diastolic heart failure: Assessment and Plan: stop IVF, appears in no acute overload, continue metoprolol, Losartan, dilt, lasix (10) Type 2 diabetes mellitus: Assessment and Plan: contiue holding metformin and glipizide, continue SSI Qualifiers: Diabetes mellitus complication status: without complication Diabetes mellitus review assistant insulin use: without correction use Qualified Code(s): E11.9 - Type 2 diabetes mellitus without complications (11) Afib: Assessment and Plan: NSR, takes aspirin and dilt, metoprolol Qualifiers: Atrial fibrillation type: paroxysmal Qualified Code(s): I48.0 - Paroxysmal atrial fibrillation (12) HLD (hyperlipidemia): Assessment and Plan: continue statin Qualifiers: Hyperlipidemia type: unspecified Qualified Code(s): E78.5 - Hyperlipidemia, unspecified (13) CKD stage 3 due to type 2 diabetes mellitus: Assessment and Plan: renally dose medications (14) Prostate cancer: Assessment and Plan: hx of, had seed placement in the past, Use to follow with Dr. Garcia. (15) Hypothyroidism (acquired): Assessment and Plan: continue levothyroxine (16) GERD without esophagitis: Assessment and Plan: continue famotidine Plan Patient is a DNRCC continue aspirin for prophylaxis Patient improving, will require 1-2 more days of hospital necessary care. Urinary Catheter Management Urinary Catheter Management Urethral: Cath placed during this visit: no
[2024-05-24] MEDS: DILTIAZEM HCL 180 MG CAP.ER.24H PO (08:18)
[2024-05-24] MEDS: LOSARTAN POTASSIUM 50 MG TABLET PO (08:18)
[2024-05-24] MEDS: FLUCONAZOLE 150 MG TABLET PO (08:18)
[2024-05-24] MEDS: INSULIN ASPART 300 UNIT/3 ML PEN SUBQ ×4 (08:18→21:24)
[2024-05-24] MEDS: FAMOTIDINE 20 MG TABLET PO (08:19)
[2024-05-24] MEDS: POTASSIUM CHLORIDE 10 MEQ ER TABLET 20 MEQ PO (08:19)
[2024-05-24] MEDS: ASPIRIN 81 MG TABLET.DR PO (08:19)
[2024-05-24] MEDS: TAMSULOSIN HCL 0.4 MG CAPSULE PO (08:19)
[2024-05-24] MEDS: METOPROLOL TARTRATE 25 MG TABLET PO ×2 (08:19→21:24)
[2024-05-24] MEDS: FUROSEMIDE 40 MG TABLET PO (08:19)
[2024-05-24] MEDS: ALLOPURINOL 300 MG TABLET PO (08:19)
[2024-05-24] MEDS: SENNOSIDES/DOCUSATE SODIUM 1 TAB TABLET PO (08:19)
[2024-05-24] MEDS: LEVOFLOXACIN IN DEXTROSE 5 % 250 MG/50 ML PREMIX 50 MG IV (09:08)
--- NOTE | 2024-05-24 10:02 | CM.NOTE ---
Rounds made with Dr. Mark, continues IV antibiotics otherwise SLF IV. No discharge today, will order PT for discharge planning.
--- NOTE | 2024-05-24 10:13 | SWNOTE1 ---
SW spoke to case management and pt has [facility] services and caregivers coming in throughout the day. Pt will return home at discharge.
--- NOTE | 2024-05-24 10:57 | CM.NOTE ---
Important Message From Medicare discussed with pt, pt verbalizes understanding and signs paper. Original given to pt and copy placed on pt's chart.
[2024-05-24 11:17] LABS: Glucometer 223 mg/dL (74-106)
--- NOTE | 2024-05-24 12:20 | SWNOTE1 ---
MARCELLA called [facility] and pt signed off of on 05/22/24 (which is when he came to ED). Intake will reach out to the nurse, Ashlee, and have her call MARCELLA back to see what the process is to get him signed back on.
--- NOTE | 2024-05-24 12:31 | SWNOTE1 ---
MARCELLA spoke to Ashlee at [facility] and she stated that they will do a face to face once pt is home and get him signed back on. She requested SW fax over face sheet, H&P, any physician notes, med list, and updated labs. SW to send over today and then updates at discharge.
--- NOTE | 2024-05-24 13:19 | SWNOTE1 ---
Demographic sheet, H&P, physician notes, and labs sent to [facility].
[2024-05-24 16:29] LABS: Glucometer 222 mg/dL (74-106)
[2024-05-24] MEDS: MAGNESIUM HYDROXIDE 2,400 MG/10 ML ORAL.SUSP 2400 MG PO (18:40)
[2024-05-24] MEDS: ATORVASTATIN CALCIUM 20 MG TABLET PO (21:24)
[2024-05-24] MEDS: MAGNESIUM OXIDE 400 MG TABLET PO (21:24)
[2024-05-24] MEDS: DONEPEZIL HCL 10 MG TABLET PO (21:25)
[2024-05-24 21:30] LABS: Glucometer 270 mg/dL (74-106)
[2024-05-25] VITALS (10 sets, daily range): BP systolic 105–144; BP diastolic 65–83; PULSE 86–121; TEMP 36.9–39.4; O2SAT 90–94
[2024-05-25] MEDS: LEVOTHYROXINE SODIUM 25 MCG TABLET 50 MCG PO (05:53)
[2024-05-25] MEDS: PREGABALIN 100 MG CAPSULE PO ×3 (05:53→21:10)
[2024-05-25 06:01] LABS: Basophils Percent Auto 0.1 % (0.2-2.0); Hematocrit 33.3 % (42.0-54.0); Hemoglobin 11.3 g/dL (14.0-18.0); Immature Granulocytes Abs Auto 0.06 10^3/uL (0.00-0.03); Immature Granulocytes Pct Auto 0.7 % (0.0-0.5); Lymphocytes Absolute Auto 0.5 10^3/uL (1.2-3.8); Lymphocytes Percent Auto 6.4 % (20.5-60.0); Mean Corpuscular HGB Conc 33.9 g/dL (29.9-35.2); Mean Corpuscular Hemoglobin 28.6 pg (25.9-34.0); Mean Corpuscular Volume 84.3 fL (80.0-94.0); Mean Platelet Volume 11.3 fL (9.5-13.5); Monocytes Absolute Auto 0.5 10^3/uL (0.3-0.8); Monocytes Percent Auto 5.5 % (1.7-12.0); Neutrophils Absolute Auto 7.4 10^3/uL (1.4-6.5); Neutrophils Percent Auto 87.3 % (43.0-75.0); Platelet Count 87 10^3/uL (150-450); Red Blood Count 3.95 10^6/uL (4.70-6.10); Red Cell Distribution Width 13.1 % (11.0-15.0); White Blood Count 8.4 10^3/uL (4.0-11.0)
[2024-05-25 06:19] LABS: Alanine Aminotransferase 23 U/L (16-63); Albumin Globulin Ratio 0.6; Alkaline Phosphatase 107 U/L (46-116); Anion Gap 16.5; Aspartate Amino Transferase 25 U/L (15-37); Bilirubin Total 0.7 mg/dL (0.2-1.0); Calcium 7.7 mg/dL (8.5-10.1); Carbon Dioxide 24.3 mmol/L (21.0-32.0); Chloride 97 mmol/L (98-107); Estimated GFR (African America 44 (>=60 mL/min/1.73m^2); Estimated GFR (Non-African Ame 36 (>=60 mL/min/1.73m^2); Globulin 3.3 g/dL; Glucose 233 mg/dL (74-106); Magnesium 1.8 mg/dL (1.8-2.4); Potassium 3.8 mmol/L (3.5-5.1); Sodium 134 mmol/L (136-145); Total Protein 5.3 g/dL (6.4-8.2)
[2024-05-25] MEDS: POLYETHYLENE GLYCOL 3350 17 GM POWDER PACKET PO (08:29)
[2024-05-25] MEDS: FAMOTIDINE 20 MG TABLET PO (08:30)
[2024-05-25] MEDS: FUROSEMIDE 40 MG TABLET PO (08:30)
[2024-05-25] MEDS: DILTIAZEM HCL 180 MG CAP.ER.24H PO (08:30)
[2024-05-25] MEDS: POTASSIUM CHLORIDE 10 MEQ ER TABLET 20 MEQ PO (08:30)
[2024-05-25] MEDS: SENNOSIDES/DOCUSATE SODIUM 1 TAB TABLET PO (08:30)
[2024-05-25] MEDS: ASPIRIN 81 MG TABLET.DR PO (08:30)
[2024-05-25] MEDS: ACETAMINOPHEN 325 MG TABLET 650 MG PO ×2 (08:30→20:15)
[2024-05-25] MEDS: ALLOPURINOL 300 MG TABLET PO (08:30)
[2024-05-25] MEDS: TAMSULOSIN HCL 0.4 MG CAPSULE PO (08:30)
[2024-05-25] MEDS: METOPROLOL TARTRATE 25 MG TABLET PO ×2 (08:30→21:10)
[2024-05-25] MEDS: LOSARTAN POTASSIUM 50 MG TABLET PO (08:30)
[2024-05-25] MEDS: DOCUSATE SODIUM 100 MG CAPSULE 200 MG PO (08:30)
[2024-05-25] MEDS: INSULIN ASPART 300 UNIT/3 ML PEN SUBQ ×4 (08:31→21:11)
[2024-05-25] MEDS: LEVOFLOXACIN IN DEXTROSE 5 % 250 MG/50 ML PREMIX 100 MG IV (09:14)
[2024-05-25] MEDS: FLUCONAZOLE 150 MG TABLET PO (09:14)
--- NOTE | 2024-05-25 09:34 | CM.NOTE ---
Rounds made with Dr. Mark, pt more awake today and c/o increased back pain. Dr. Mark will restart pain medication. Pt c/o extreme weakness and difficulty with standing. SS and Case management will follow PT notes for plan of care at discharge. Discussed with pt about skilled therapy and pt is open to return to [place] for skilled if needed.
--- NOTE | 2024-05-25 09:35 | CT_ITS ---
[address] [address] Patient Name: GUILLERMINA GUADALUPE MRN: [id number] date: 1935 Sex: M Assigned Patient Location: MS Current Patient Location: [place] Accession/Order Number: [id number] Exam Date: 05/25/2024 11:55 Report Date: 05/25/2024 13:02 At the request of: FRANCHESKA NANCE Procedure: CT abdomen pelvis wo con EXAMINATION: CT abdomen pelvis wo con HISTORY: pyelonephritis? Abscess? ; Urinary tract infection COMPARISON: CT abdomen pelvis 11/27/2022 TECHNIQUE: Axial, Coronal, and Sagittal images were obtained without and/or with IV contrast as indicated by examination type. Dose reduction techniques were achieved by using automated exposure control and/or adjustment of mA and/or kV according to patient size and/or use of iterative reconstruction technique. FINDINGS: LUNG BASES: Mild atelectasis versus infiltrates within posterior lung bases. Borderline mild bronchiectasis. Trace amount of pleural fluid on left. LIVER: No enlargement, atrophy, suspicious density, or significant focal lesion. BILIARY: No dilatation or calcification. PANCREAS: No lesion, fluid collection, or abnormal duct dilatation. SPLEEN: No enlargement or focal lesion. ADRENALS: No mass or enlargement. KIDNEYS: Prominent left hydronephrosis and perirenal stranding/edema secondary to an obstructing 7 x 5 x 4 mm stone within the proximal ureter. No additional urinary tract calculi. Bilateral fluid density renal cysts favoring benign etiology.: No mass, obstruction, or calcification. BOWEL/MESENTERY: Diverticulosis of distal colon without acute inflammatory changes. No visible mass, obstruction, or bowel wall thickening. Normal appendix. AORTA/VASCULAR: No aneurysm or dissection. RETROPERITONEUM: No mass or adenopathy. LYMPH NODES: No adenopathy. URINARY BLADDER: Dodge catheter within the bladder. There is also an irregular shaped heterogeneous partially hyperdense structure within the bladder, 3.8 x 3.2 x 3.1 cm. Within the structure several foci of free air. Bladder is otherwise relatively empty. PELVIC ORGANS: Prior radioactive seeding of the prostate. ABDOMINAL WALL: No mass or hernia. BONES: Multilevel marked degenerative disc disease of lumbar spine. No fracture or bone lesion. OTHER: Negative. CT/CT abdomen pelvis wo con IMPRESSION: 1. Marked left hydronephrosis with likely rupture of a calyx resulting in surrounding edema/fluid. Obstructing 7 x 5 x 4 mm stone within the proximal ureter. 2.Nonspecific mass with central necrosis within the urinary bladder versus clotted blood products with central air which may have been introduced into the clot by Dodge catheter insertion. Consider follow-up CT pelvis to document clearing versus follow-up CT pelvis with IV contrast to evaluate for possible enhancement. 3. Additional chronic changes detailed above. Electronically authenticated by: BRISA SALAS Date: 05/25/2024 13:02
--- NOTE | 2024-05-25 09:52 | PM.PN ---
Progress Note: Subjective Subjective Interval history: Patient sitting up in bed and is more alert today, smiles, answers questions. Discussed improving labs with Levaquin. Patient has been afebrile overnight. He denies any complaints currently other than his low back pain is back. I discussed with patient that Urology felt his issue was best served in clinic and they would not see him in the hospital setting. I discussed getting CT scan of abdomen today, Cannot use contrast due to renal function. I also discussed restarting his Baclofen and Morphine for pain. Exam Narrative Exam Narrative: General: Patient is alert, answers questions, aware of person, place not time. Skin: no visible rashes, or ulcers Head: atraumatic, acephalic Eyes: PERRLA, no nystagmus present, conjunctiva clear, no scleral icterus Neck: no masses palpated, normal thyroid Heart: Normal rate and rhythm, no murmurs/rubs/gallops Lungs: no audible wheezes, crackles and normal breath sounds all lung roper Abdomen: Normal audible bowel sounds, no distension, No palpable masses, no organomegaly, no rebound/guarding/ or rigidity Musculoskeletal: +1 pitting/ swelling bilateral lower extremities Neuro: CN II-X grossly intact Constitutional Vital Signs, click to edit/add: Last Vital Signs Temp 99.0 F 05/25/24 07:57 Pulse 98 H 05/25/24 07:57 Resp 16 05/25/24 07:57 BP 136/80 05/25/24 07:57 Pulse Ox 93 L 05/25/24 07:57 O2 Del Method Room Air 05/25/24 07:57 O2 Flow Rate 2 05/22/24 15:59 Progress Note: Objective Labs Labs: Short CBC 05/25/24 Range/Units 05:16 WBC 8.4 (4.0-11.0) 10^3/uL Hgb 11.3 L (14.0-18.0) g/dL Hct 33.3 L (42.0-54.0) % Plt Count 87 L (150-450) 10^3/uL BMP 05/25/24 05:16 Sodium 134 L Potassium 3.8 Chloride 97 L Carbon Dioxide 24.3 BUN 25.0 H Creatinine 1.78 H Glucose 233 H Calcium 7.7 L Liver Function 05/25/24 Range/Units 05:16 Total Bilirubin 0.7 (0.2-1.0) mg/dL AST 25 (15-37) U/L ALT 23 (16-63) U/L Alkaline Phosphatase 107 (46-116) U/L Albumin 2.0 L (3.4-5.0) g/dL Progress Note: A&P Assessment and Plan (1) Sepsis with metabolic encephalopathy: Assessment and Plan: mentation is improving. Labs and vitals improving. Urine culture showing proteus and blood cultures pending. Continue Levaquin IV. (2) Bacterial UTI: Assessment and Plan: previous culture positive for Enteroccus and Ecoli, treating with Levaquin currently. current Urine culture showing Proteus species, awaiting sensitivities (3) DAVID (acute kidney injury): Assessment and Plan: Renally dose medications. Cr improving 2.18 to 1.78 today. (4) Hypomagnesemia: Assessment and Plan: continue Oral replacement. (5) Chronic indwelling Dodge catheter: Assessment and Plan: Problematic and complicates infections. Urology Consult for guidance or any other options, refused to see patient while inpatient, Dr. Aponte, but did make outpatient appointment for patient. Awaiting to see if different Urologist would see. (6) DDD (degenerative disc disease), lumbar: Assessment and Plan: holding morphine Baclofen due to drowsiness but will restart today, continue with lyrica Qualifiers: Disc-related pain type: unspecified whether pain present Qualified Code(s): M51.369 - Other intervertebral disc degeneration, lumbar region without mention of lumbar back pain or lower extremity pain (7) Lumbar radiculopathy: Assessment and Plan: see #6 (8) Yeast infection: Assessment and Plan: completed fluconazole (9) Chronic diastolic heart failure: Assessment and Plan: stop IVF, appears in no acute overload, continue metoprolol, Losartan, dilt, lasix (10) Type 2 diabetes mellitus: Assessment and Plan: continue holding metformin and glipizide, continue SSI Qualifiers: Diabetes mellitus complication status: without complication Diabetes mellitus retirement insulin use: without retirement use Qualified Code(s): E11.9 - Type 2 diabetes mellitus without complications (11) Afib: Assessment and Plan: NSR, takes aspirin and dilt, metoprolol Qualifiers: Atrial fibrillation type: paroxysmal Qualified Code(s): I48.0 - Paroxysmal atrial fibrillation (12) HLD (hyperlipidemia): Assessment and Plan: continue statin Qualifiers: Hyperlipidemia type: unspecified Qualified Code(s): E78.5 - Hyperlipidemia, unspecified (13) CKD stage 3 due to type 2 diabetes mellitus: Assessment and Plan: renally dose medications (14) Prostate cancer: Assessment and Plan: hx of, had seed placement in the past, Use to follow with Dr. Garcia. (15) Hypothyroidism (acquired): Assessment and Plan: continue levothyroxine (16) GERD without esophagitis: Assessment and Plan: continue famotidine Plan Patient is a DNRCC continue aspirin for prophylaxis Urinary Catheter Management Urinary Catheter Management Urethral: Cath placed during this visit: no
[2024-05-25] MEDS: MORPHINE SULFATE 15 MG TABLET.ER 30 MG PO ×2 (10:11→21:53)
[2024-05-25] MEDS: BACLOFEN 10 MG TABLET PO ×2 (10:11→21:10)
--- NOTE | 2024-05-25 10:22 | CM.NOTE ---
Pt's granddaughter at bedside, discussed skilled d/t pt's increased weakness and unable to pivot to chair this AM. Awaiting PT to see pt today. Granddaughter voices that she would like him to come back home with Hospice d/t pain control. Granddaughter voices the last time he went to [facility] for skilled they were unable to control his pain. Granddaughter and pt voice they are content with the Hospice care and would like to return home with Hospice and [facility].
--- NOTE | 2024-05-25 10:25 | CM.NOTE ---
Granddaughter does voice concern with urology not coming to see pt. Urologist scheduled for pt to be seen as outpatient, not an emergency. Notified Tahmina Galan regarding pt and family concerns. Dr. Mark is ordering CT of abdomen and pelvis today. Awaiting call back from Tahmina Galan RN for further intervention for family concerns.
--- NOTE | 2024-05-25 10:56 | CM.NOTE ---
Tahmina Galan called back and will go speak with family.
[2024-05-25 11:19] LABS: Glucometer 273 mg/dL (74-106)
--- NOTE | 2024-05-25 11:42 | REH.PTDLY ---
Physical Therapy Daily Note PT Daily Note/Assess Start: 05/25/24 11:13 Freq: Status: Active Protocol: Document 05/25/24 11:14 ARMONDALOTN (Rec: 05/25/24 11:42 KSTEINJIMMY [id number]) Physical Therapy Daily Note/Assessment Time In 10:36 Time Out 11:04 Subjective Pt in bed upon arrival, caregiver sitting bedside with granddaughter in room. Awake, but drowsy when answering questions. Caregiver states he is doing better than previous date, has been more alert earlier this morning. Therapeutic Exercise Minutes (minutes) 12 Therapeutic Exercise Units 1 Therapeutic Exercise Treatment Instructed in supine B LE exs 10x ea A-AAROM needed at times . Exs included heel slides, SLR, hip abd slides, and AP. Limited ROM with AP. Seated LAQ and marching 10x ea with cues for larger ROM. Therapeutic Activity Minutes (minutes) 13 Therapeutic Activity Units 1 Therapeutic Activity Comments Supine to sit transfers Mod A with cues for pt to push off of R elbow to assist in transfer. Once sitting, pt needs Mod A to scoot forward for feet to touch floor. Several verbal and tactile cues for pt to sit upright as he leans to the right and forward. Pt sat bedside working on sitting balance and posture for 5 mins prior to standing. Sit to stand transfers Max A x2 with verbal and tactile cues for posture. Pt is unable to stand upright , flexed forward posture at waist with Matthieu knees in flexed position. Pt stood for 40 seconds prior to needing to sit, attempted two more times with the same outcome. Cues when standing for pt to side step to the R towards HOB, but pt is unable to without knees starting to tremble. As pt sits beside after standing, he struggles to keep seated balance, leaning forward, Max A to keep upright for better posture. Max A x2 with sit to supine transfer. Total Therapy Minutes 25 Total Physical Therapy Units 2 Daily Note Summary Pt able to tolerate more exs today and standing attempts, but continues to be very weak needing Max A x2. Unable to transfer into chair today due to weakness and fatigue. Pt may need to look into going to a nursing facility at [place] per families discretion if pt does not become strong enough to perform stand pivot transfers.
--- NOTE | 2024-05-25 12:05 | CM.NOTE ---
[facility] called for update on pt, pt and family are still planning on discharging home with hospice. Hospice will connect with family for further needs and face to face.
[2024-05-25] MEDS: ZINC OXIDE 30% CREAM 113.4 GM TUBE 1 APPLIC TOPICAL (14:09)
[2024-05-25 16:25] LABS: Glucometer 191 mg/dL (74-106)
[2024-05-25 20:12] LABS: Glucometer 145 mg/dL (74-106)
[2024-05-25] MEDS: DONEPEZIL HCL 10 MG TABLET PO (21:10)
[2024-05-25] MEDS: MAGNESIUM OXIDE 400 MG TABLET PO (21:10)
[2024-05-25] MEDS: ATORVASTATIN CALCIUM 20 MG TABLET PO (21:10)
[2024-05-26] VITALS (22 sets, daily range): BP systolic 97–124; BP diastolic 59–76; PULSE 74–127; TEMP 36.3–39.6; O2SAT 90–97
--- NOTE | 2024-05-26 | OP_ITS ---
OPERATION DATE: 05/26/2024 PREOPERATIVE DIAGNOSIS: 1. Septic shock as well as hydronephrosis with left ureteral calculus. 2. DAVID. 3. Chronic indwelling Dodge. POSTOPERATIVE DIAGNOSIS: 1. Septic shock as well as hydronephrosis with left ureteral calculus. 2. DAVID. 3. Chronic indwelling Dodge. 4. Bladder calculus. SURGEON: Gasper Aponte M.D. COMPLICATIONS: None. ANESTHESIA: Dr. Mark with IV sedation and 2% Xylocaine jelly per urethra. INDICATIONS: This is an 88-year-old white male, in septic shock, with an obstructing stone in the left upper ureter. 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 Initial consultation was for consideration of a suprapubic tube, and then I was notified yesterday that CT scan demonstrating an obstructing stone, and then he developed septic shock earlier today. Acute trip to the operating room was indicated, and patient and family wished the same. POEsvin has signed the consent form and is well aware of the risks, benefits and details of the procedure, including risks of bleeding, infection, need for additional procedural intervention, heart and lung problems under anesthesia, worsening hypotension and even the possibility of . PROCEDURE: The patient was brought back to the operating room and, after a successful time out, which identified the patient appropriately, and all were in agreement with the operative plan, procedure was initiated. Penis and external genitalia were prepped in the usual fashion with Betadine solution. He was draped appropriately and 2% Xylocaine jelly was placed per urethra. Obviously the indwelling Dodge catheter had been removed. A well lubricated, 22-Algerian cystourethroscope with 30 degree lens was then passed into the bladder. Anterior urethra was normal. Immediately upon entering the bladder and through the prostate, which was actually fairly open, a large bladder stone was identified. He had diffuse irritation from that. No tumors or stones. I was able to identify the left ureteral orifice. There was pus at the orifice itself. Under fluoroscopic imaging, I felt that a stone was located in the left upper ureter area, but then, upon passage of 0.035 wire, this was difficult to pass beyond a couple centimeters proximal to the ureterovesical junction, raising the possibility that a second calculus was present, which was not seen on the CT scan. With some manipulation, I was able to get the wire past that obstruction, but then again this became difficult to pass the wire past the pelvic brim. I passed the open ended catheter over the wire, and with some manipulation, was able to manipulate the wire past that obstruction and up into the kidney. Significant purulent urine, which was essentially toothpaste in consistency at first, was exuding from the ureter. I then passed a 6-Algerian, 22-30 cm Dornier double J stent into the kidney. Wire removed. There was good curl within the kidney and the urinary bladder and it is draining well. A new 20-Algerian 2-way Dodge catheter passed into the bladder without difficulty and balloon inflated with 15 cc of sterile water. It was placed to night bag drainage. He tolerates the procedure well and is transferred back to PACU. Plan will be for transfer to the floor for postoperative management. Decision regarding ICU will be left up to Dr. Mark, who is primary care. Discussed with the patient?s son postoperatively that the stent is now indwelling. We have several issues to deal with now, at this point, which will include the ureteral calculi as well as the bladder calculus, and decisions will be made in the outpatient setting, once the acute situation has been resolved. They were in agreement with that plan. JOSE
--- NOTE | 2024-05-26 | FL_ITS ---
[address] [address] Patient Name: GUILLERMINA GUADALUPE MRN: [id number] date: 1935 Sex: M Assigned Patient Location: MS Current Patient Location: MS Accession/Order Number: [id number] Exam Date: 05/26/2024 12:50 Report Date: 06/07/2024 09:55 At the request of: FRANCHESKA NANCE Procedure: FL fluoroscopy <1hr NON-READ EXAM: FL fluoroscopy <1hr NON-READ HISTORY: TECHNIQUE: FINDINGS: Please see Operative Report. Electronically authenticated by: RADIOLOGIST NO Date: 06/07/2024 09:55
[2024-05-26 00:13] LABS: Glucometer 200 mg/dL (74-106)
[2024-05-26] MEDS: ONDANSETRON PF 4 MG/2 ML VIAL IV ×2 (00:41→08:42)
[2024-05-26 06:28] LABS: Basophils Percent Auto 0.1 % (0.2-2.0); Eosinophils Percent Auto 0.1 % (0.9-7.0); Hematocrit 38.4 % (42.0-54.0); Hemoglobin 12.8 g/dL (14.0-18.0); Immature Granulocytes Abs Auto 0.03 10^3/uL (0.00-0.03); Immature Granulocytes Pct Auto 0.4 % (0.0-0.5); Lymphocytes Absolute Auto 0.6 10^3/uL (1.2-3.8); Lymphocytes Percent Auto 8.5 % (20.5-60.0); Mean Corpuscular HGB Conc 33.3 g/dL (29.9-35.2); Mean Corpuscular Hemoglobin 28.6 pg (25.9-34.0); Mean Corpuscular Volume 85.7 fL (80.0-94.0); Mean Platelet Volume 11.4 fL (9.5-13.5); Monocytes Absolute Auto 0.5 10^3/uL (0.3-0.8); Neutrophils Absolute Auto 6.2 10^3/uL (1.4-6.5); Neutrophils Percent Auto 83.9 % (43.0-75.0); Platelet Count 91 10^3/uL (150-450); Red Blood Count 4.48 10^6/uL (4.70-6.10); Red Cell Distribution Width 13.2 % (11.0-15.0); White Blood Count 7.3 10^3/uL (4.0-11.0)
[2024-05-26 06:45] LABS: Alanine Aminotransferase 27 U/L (16-63); Albumin Globulin Ratio 0.6; Albumin Level 2.1 g/dL (3.4-5.0); Alkaline Phosphatase 121 U/L (46-116); Anion Gap 15.7; Aspartate Amino Transferase 26 U/L (15-37); Bilirubin Total 0.7 mg/dL (0.2-1.0); Calcium 8.1 mg/dL (8.5-10.1); Carbon Dioxide 24.6 mmol/L (21.0-32.0); Chloride 96 mmol/L (98-107); Estimated GFR (African America 42 (>=60 mL/min/1.73m^2); Estimated GFR (Non-African Ame 34 (>=60 mL/min/1.73m^2); Globulin 3.8 g/dL; Glucose 228 mg/dL (74-106); Magnesium 2.2 mg/dL (1.8-2.4); Potassium 4.3 mmol/L (3.5-5.1); Sodium 132 mmol/L (136-145); Total Protein 5.9 g/dL (6.4-8.2)
[2024-05-26 07:48] LABS: Glucometer 213 mg/dL (74-106)
--- NOTE | 2024-05-26 08:53 | PM.PN ---
Progress Note: Subjective Subjective Interval history: Yesterday morning patient found to have left hydronephrosis with bladder necrosis and 7mm obstructive stone in the left side. Patient WBC's 7.3 today, Cr 1.87. Patient developed a fever of 103, blood cultures obtained, lactate 2.8, hypotension, started LR @75 due to heart failure history i did not load him with fluids. I also gave IV tylenol. Temp came down to 99. I notified Dr. Aponte, urology and he was able to get patient into surgery sooner, he went to the OR at 12pm. Patient with large stone and pus burden. Given 2 doses of Vasopressin to keep BP up. Patient recovering post op, BP staying steady, temp improved. Lactate recheck 1.8. Exam Narrative Exam Narrative: General: Patient is alert, answers questions, but diaphoretic Skin: no visible rashes, or ulcers Head: atraumatic, acephalic Eyes: PERRLA, no nystagmus present, conjunctiva clear, no scleral icterus Neck: no masses palpated, normal thyroid Heart: Normal rate and rhythm, no murmurs/rubs/gallops Lungs: no audible wheezes, crackles and normal breath sounds all lung roper Abdomen: Normal audible bowel sounds, no distension, No palpable masses, no organomegaly, no rebound/guarding/ or rigidity Musculoskeletal: +1 pitting/ swelling bilateral lower extremities Neuro: CN II-X grossly intact Constitutional Vital Signs, click to edit/add: Last Vital Signs Temp 97.7 F 05/26/24 07:44 Pulse 79 05/26/24 07:44 Resp 18 05/26/24 07:44 BP 113/71 05/26/24 07:44 Pulse Ox 97 05/26/24 07:44 O2 Del Method Room Air 05/26/24 07:44 O2 Flow Rate 2 05/22/24 15:59 Progress Note: Objective Labs Labs: Short CBC 05/26/24 Range/Units 05:45 WBC 7.3 (4.0-11.0) 10^3/uL Hgb 12.8 L (14.0-18.0) g/dL Hct 38.4 L (42.0-54.0) % Plt Count 91 L (150-450) 10^3/uL BMP 05/26/24 05:46 Sodium 132 L Potassium 4.3 Chloride 96 L Carbon Dioxide 24.6 BUN 30.0 H Creatinine 1.87 H Glucose 228 H Calcium 8.1 L Liver Function 05/26/24 Range/Units 05:46 Total Bilirubin 0.7 (0.2-1.0) mg/dL AST 26 (15-37) U/L ALT 27 (16-63) U/L Alkaline Phosphatase 121 H (46-116) U/L Albumin 2.1 L (3.4-5.0) g/dL Progress Note: A&P Assessment and Plan (1) Sepsis with metabolic encephalopathy: Assessment and Plan: Urine culture showing proteus and blood cultures pending. Continue Levaquin IV, surgery today with stone extraction and removal of bladder contents, should help the patient feel better. continue yao, monitor urine output. (2) Bacterial UTI: Assessment and Plan: urrent Urine culture showing Proteus species, awaiting sensitivities (3) DAVID (acute kidney injury): Assessment and Plan: Renally dose medications. Cr improving 2.18 to 1.87 today, but surgery should improve this (4) Hypomagnesemia: Assessment and Plan: continue Oral replacement. (5) Chronic indwelling Yao catheter: Assessment and Plan: stone presence, taken to OR today, hopeful improvement in function (6) DDD (degenerative disc disease), lumbar: Assessment and Plan: decrease morphine, continue with lyrica Qualifiers: Disc-related pain type: unspecified whether pain present Qualified Code(s): M51.369 - Other intervertebral disc degeneration, lumbar region without mention of lumbar back pain or lower extremity pain (7) Lumbar radiculopathy: Assessment and Plan: see #6 (8) Yeast infection: Assessment and Plan: completed fluconazole (9) Chronic diastolic heart failure: Assessment and Plan: continue metoprolol, Losartan, dilt, lasix (10) Type 2 diabetes mellitus: Assessment and Plan: continue holding metformin and glipizide, continue SSI Qualifiers: Diabetes mellitus complication status: without complication Diabetes mellitus intermediate card tender insulin use: without intermediate card tender use Qualified Code(s): E11.9 - Type 2 diabetes mellitus without complications (11) Afib: Assessment and Plan: NSR, takes aspirin and dilt, metoprolol Qualifiers: Atrial fibrillation type: paroxysmal Qualified Code(s): I48.0 - Paroxysmal atrial fibrillation (12) HLD (hyperlipidemia): Assessment and Plan: continue statin Qualifiers: Hyperlipidemia type: unspecified Qualified Code(s): E78.5 - Hyperlipidemia, unspecified (13) CKD stage 3 due to type 2 diabetes mellitus: Assessment and Plan: renally dose medications (14) Prostate cancer: Assessment and Plan: hx of, had seed placement in the past, Use to follow with Dr. Garcia (15) Hypothyroidism (acquired): Assessment and Plan: continue levothyroxine (16) GERD without esophagitis: Assessment and Plan: continue famotidine Plan Patient is a DNRCC continue aspirin for prophylaxis Patient and family has been updated with every stage of the process and agree with treatment plan Urinary Catheter Management Urinary Catheter Management Urethral: Cath placed during this visit: no
--- NOTE | 2024-05-26 10:00 | CM.NOTE ---
Rounds made with Dr. Mark, pt has elevated temp and HR (blood cultures sent, IV Tylenol ordered, and fluids will be ordered). Dr. Mark reached out to urologist to see if pt could be seen earlier, pt will now go to OR at noon.
--- NOTE | 2024-05-26 10:24 | REH.PTDLY ---
Physical Therapy Daily Note PT Daily Note/Assess Start: 05/25/24 11:13 Freq: Status: Active Protocol: Document 05/26/24 09:10 JANIS (Rec: 05/26/24 10:24 [facility] [id number]) Visit Not Completed Visit Not Completed Due to: Nursing request to hold Other Reason Visit Not Completed Entered room and pt moaning with vomit bag in bed. Nursing enters and said to hold pt for today as he is not feeling well. Temp during the night. Physical Therapy Daily Note/Assessment Time In 09:10 Time Out 09:11
[2024-05-26] MEDS: HYDROMORPHONE HCL 1 MG/ML CARTRIDGE IV (10:46)
[2024-05-26 11:23] LABS: Glucometer 204 mg/dL (74-106)
[2024-05-26] MEDS: ACETAMINOPHEN 1,000 MG/100 ML PREMIX 400 MG IV (11:24)
[2024-05-26 12:00] LABS: Lactate/Lactic Acid 2.8 mmol/L (0.4-2.0)
--- NOTE | 2024-05-26 12:13 | PC.NURSE ---
HOLD DNR WHILE IN SURGERY
--- NOTE | 2024-05-26 12:34 | PM.URCN ---
Urology - CN: HPI Date of Consult Requesting Physician: Liza Mark DO Primary Care Provider: Shaikh Lexi MD Consult Narrative Reason for consult IM: Now in septic shock, obstructing stone left upper ureter on CT scan Narrative: Admitted 05-23. Hospice care due to severe back pain issues. 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 Urology consult obtained then, with recommendation for outpatient follow up to discuss possible SP tube. Son here at bedside during evaluation. He has POA Call yesterday from Dr. Mark that pt has obstructing stone in the left upper ureter with hydronephrosis. Now developed septic shock, rigors. Emergent evaluation and treatment indicated. THe entire PMH,PSH,ROS,family hx, social hx, meds, allergies, are as noted in admission H and P performed by Dr. Mark on 05-23-24 and unchanged. cc:: CC: Liza Mark DO PFS PFS Medical History (Updated 05/26/24 @ 12:49 by Olman Aponte MD) GERD without esophagitis ?K21.9 - Gastro-esophageal reflux disease without esophagitis (ICD-10) Hypothyroidism (acquired) ?E03.9 - Hypothyroidism, unspecified (ICD-10) DNR (do not resuscitate) ?Z66 - Do not resuscitate (ICD-10) Chronic indwelling Yao catheter ?Z97.8 - Presence of other specified devices (ICD-10) E. coli UTI ?N39.0 - Urinary tract infection, site not specified (ICD-10) ?B96.20 - Unspecified Escherichia coli [E. coli] as the cause of diseases classified elsewhere (ICD-10) Yeast infection ?B37.9 - Candidiasis, unspecified (ICD-10) Cellulitis of scrotum ?N49.2 - Inflammatory disorders of scrotum (ICD-10) Decubitus ulcer of sacral area ?L89.159 - Pressure ulcer of sacral region, unspecified stage (ICD-10) DDD (degenerative disc disease), lumbar ?M51.36 - Other intervertebral disc degeneration, lumbar region (ICD-10) Lumbar radiculopathy ?M54.16 - Radiculopathy, lumbar region (ICD-10) Intractable low back pain ?M54.59 - Other low back pain (ICD-10) Unable to ambulate ?R26.2 - Difficulty in walking, not elsewhere classified (ICD-10) Chronic kidney disease ?N18.9 - Chronic kidney disease, unspecified (ICD-10) Spondylosis ?M47.9 - Spondylosis, unspecified (ICD-10) Radiculopathy ?M54.10 - Radiculopathy, site unspecified (ICD-10) Chronic diastolic heart failure ?I50.32 - Chronic diastolic (congestive) heart failure (ICD-10) Type 2 diabetes mellitus ?E11.9 - Type 2 diabetes mellitus without complications (ICD-10) Afib ?I48.91 - Unspecified atrial fibrillation (ICD-10) Spinal stenosis ?M48.00 - Spinal stenosis, site unspecified (ICD-10) Peripheral edema ?R60.0 - Localized edema (ICD-10) Hypertension ?I10 - Essential (primary) hypertension (ICD-10) Lumbar spondylosis ?M47.816 - Spondylosis without myelopathy or radiculopathy, lumbar region (ICD-10) Chronic low back pain ?M54.50 - Low back pain, unspecified (ICD-10) ?G89.29 - Other chronic pain (ICD-10) Anxiety ?F41.9 - Anxiety disorder, unspecified (ICD-10) Shortness of breath ?R06.02 - Shortness of breath (ICD-10) 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 ?R33.9 - Retention of urine, unspecified (ICD-10) Ambulatory dysfunction ?R26.2 - Difficulty in walking, not elsewhere classified (ICD-10) HLD (hyperlipidemia) ?E78.5 - Hyperlipidemia, unspecified (ICD-10) Depression with anxiety ?F41.8 - Other specified anxiety disorders (ICD-10) Acute hypokalemia ?E87.6 - Hypokalemia (ICD-10) Intractable low back pain ?M54.59 - Other low back pain (ICD-10) CKD stage 3 due to type 2 diabetes mellitus ?E11.22 - Type 2 diabetes mellitus with diabetic chronic kidney disease (ICD-10) ?N18.30 - Chronic kidney disease, stage 3 unspecified (ICD-10) Lumbar stenosis with neurogenic claudication ?M48.062 - Spinal stenosis, lumbar region with neurogenic claudication (ICD-10) Osteoarthritis of right knee ?M17.11 - Unilateral primary osteoarthritis, right knee (ICD-10) Chronic pain syndrome ?G89.4 - Chronic pain syndrome (ICD-10) Chronic prescription opiate use ?Z79.891 - alf (current) use of opiate analgesic (ICD-10) Osteoarthritis, 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 - Primary osteoarthritis, unspecified shoulder (ICD-10) Right shoulder pain ?M25.511 - Pain in right shoulder (ICD-10) Lumbar radiculopathy ?M54.16 - Radiculopathy, lumbar region (ICD-10) Abdominal pain ?R10.9 - Unspecified abdominal pain (ICD-10) Nausea & vomiting ?R11.2 - Nausea with vomiting, unspecified (ICD-10) Esophagitis ?K20.90 - Esophagitis, unspecified without bleeding (ICD-10) Muscle spasm ?M62.838 - Other muscle spasm (ICD-10) Lumbar stenosis ?M48.061 - Spinal stenosis, lumbar region without neurogenic claudication (ICD-10) Retraction of blood clot ?I74.9 - Embolism and thrombosis of unspecified artery (ICD-10) Inguinal hernia ?K40.90 - Unilateral inguinal hernia, without obstruction or gangrene, not specified as recurrent (ICD-10) Presence of Watchman left atrial appendage closure device ?Z95.818 - Presence of other cardiac implants and grafts (ICD-10) Low back pain ?M54.50 - Low back pain, unspecified (ICD-10) Rheumatoid arthritis ?M06.9 - Rheumatoid arthritis, unspecified (ICD-10) Osteoarthritis ?M19.90 - Unspecified osteoarthritis, unspecified site (ICD-10) Gout ?M10.9 - Gout, unspecified (ICD-10) DVT (deep venous thrombosis) ?I82.409 - Acute embolism and thrombosis of unspecified deep veins of unspecified lower extremity (ICD-10) Hearing deficit ?H91.90 - Unspecified hearing loss, unspecified ear (ICD-10) IBS (irritable bowel syndrome) ?K58.9 - Irritable bowel syndrome without diarrhea (ICD-10) Acid reflux ?K21.9 - Gastro-esophageal reflux disease without esophagitis (ICD-10) Hypothyroid ?E03.9 - Hypothyroidism, unspecified (ICD-10) Diabetes 1.5, managed as type 2 ?E13.9 - Other specified diabetes mellitus without complications (ICD-10) Kidney stone ?N20.0 - Calculus of kidney (ICD-10) Prostate cancer ?C61 - Malignant neoplasm of prostate (ICD-10) CPAP (continuous positive airway pressure) dependence ?Z99.89 - Dependence on other enabling machines and devices (ICD-10) Sleep apnea ?G47.30 - Sleep apnea, unspecified (ICD-10) Hypercholesterolemia ?E78.00 - Pure hypercholesterolemia, unspecified (ICD-10) Surgical History H/O transurethral resection of bladder tumor (TURBT) ?Z98.890 - Other specified postprocedural states (ICD-10) ?Z86.03 - Personal history of neoplasm of uncertain behavior (ICD-10) H/O arthroscopy of knee ?Z98.890 - Other specified postprocedural states (ICD-10) S/P tonsillectomy and adenoidectomy ?Z90.89 - Acquired absence of other organs (ICD-10) Previous back surgery ?Z98.890 - Other specified postprocedural states (ICD-10) H/O neck surgery ?Z98.890 - Other specified postprocedural states (ICD-10) Family History Other Family history of diabetes mellitus Social History Within the past year, how often did you have a drink containing alcohol: never Score interpretation: A score less than 4 is consistent with normal alcohol consumption. Smoking status: Never smoker Non-prescribed substance use: denies use Previous occupational history: retired Known occupational exposures/hazards: No Highest level of school completed/degree received: high school graduate Are you now , , , , never or living with a partner: In a typical week, how many times do you talk on the telephone with family, friends, or neighbors: 3 or more times per week How often do you get together with friends or relatives: 3 or more times per week How often do you attend jehovah's witness or christianity services: never Do you belong to any clubs or organizations such as jehovah's witness groups unions, frarVue or athletic groups, or school groups: no Total score: 1 Score interpretation: A score of less than or equal to 1 indicates the most socially isolated. Little interest or pleasure in doing things: not at all Feeling down, depressed, or hopeless: not at all Feel stressed/tense/nervous/anxious/difficulty sleeping: not at all Do you think of yourself as: straight/heterosexual Gender Identity: male Meds Home Medications and Allergies Home Medications ?Medication ?Instructions ?Recorded ?Confirmed ?Type albuterol sulfate 90 mcg/actuation 1 inh inhalation Q4H PRN shortness 12/27/22 05/22/24 History aerosol inhaler (ProAir HFA) of breath or wheezing allopurinol 300 mg tablet 300 mg PO DAILY 12/27/22 05/22/24 History cholecalciferol (vitamin D3) 25 50 mcg PO DAILY 12/27/22 05/22/24 History mcg (1,000 unit) capsule (Vitamin D3) levothyroxine 50 mcg tablet 50 mcg PO DAILY 12/27/22 05/22/24 History nitroglycerin 0.4 mg sublingual 0.4 mg sublingual Q5M PRN chest 12/27/22 05/22/24 History tablet (Nitrostat) pain aspirin 81 mg capsule 81 mg PO DAILY 01/09/23 05/22/24 History diltiazem HCl 180 mg 180 mg PO DAILY 01/09/23 05/22/24 History capsule,extended release 24 hr famotidine 20 mg tablet 20 mg PO DAILY 01/09/23 05/22/24 History ferrous sulfate 325 mg (65 mg 325 mg PO .every other day 01/09/23 05/22/24 History iron) tablet fluticasone propionate 50 2 spray intranasal DAILY PRN nasal 01/09/23 05/22/24 History mcg/actuation nasal congestion spray,suspension (Flonase Allergy Relief) magnesium aspart,citrate,oxide 400 mg PO BEDTIME 01/09/23 05/22/24 History metoprolol tartrate 25 mg tablet 25 mg PO BID 01/09/23 05/22/24 History psyllium husk 0.4 gram capsule 0.4 g PO DAILY 01/09/23 05/22/24 History (Metamucil) tamsulosin 0.4 mg capsule (Flomax) 0.4 mg PO DAILY 01/09/23 05/22/24 History atorvastatin 20 mg tablet 20 mg PO DAILY 01/10/23 05/22/24 History baclofen 10 mg tablet 10 mg PO BID muscle spasm 01/10/23 05/22/24 History Lactobacillus rhamnosus GG 10 1 cap PO DAILY 07/18/23 05/22/24 History billion cell capsule (Culturelle) glipizide 5 mg tablet 5 mg PO BID 07/18/23 05/22/24 History multivitamin 1 tab PO BID 07/18/23 05/22/24 History pregabalin 100 mg capsule (Lyrica) 100 mg PO TID 5 days #15 caps 08/25/23 05/22/24 Rx acetaminophen 500 mg tablet 1,000 mg PO Q8H PRN pain 09/13/23 05/22/24 History (Tylenol Extra Strength) potassium chloride 20 mEq 20 meq PO DAILY 09/13/23 05/22/24 History tablet,extended release(part/cryst) (Klor-Con M) furosemide 20 mg tablet 40 mg (2 x 20 mg) PO DAILY #0 tabs 09/16/23 05/22/24 Rx losartan 100 mg tablet 50 mg (1/2 x 100 mg) PO DAILY #0 09/16/23 05/22/24 Rx tabs guaifenesin 600 mg tablet, 600 mg PO Q12H 05/22/24 05/22/24 History extended release 12 hr (Mucinex) loperamide 2 mg tablet 2 mg PO Q6H PRN loose stool 05/22/24 05/22/24 History metformin 500 mg tablet,extended 500 mg PO DAILY 05/22/24 05/22/24 History release 24 hr methenamine hippurate 1 gram tablet 1 g PO Q12H 05/22/24 05/22/24 History metoclopramide HCl 5 mg tablet 5 mg PO Q6H PRN nausea and vomiting 05/22/24 05/22/24 History morphine 30 mg tablet,extended 30 mg PO Q12H 05/22/24 05/23/24 History release ondansetron HCl 8 mg tablet 8 mg PO Q8H PRN nausea and vomiting 05/22/24 05/22/24 History donepezil 10 mg tablet 10 mg PO DAILY 05/23/24 05/23/24 History sennosides 8.6 mg-docusate sodium 1 tab-cap PO DAILY 05/23/24 05/23/24 History 50 mg tablet (Stimulant Laxative Plus) Allergies Allergy/AdvReac Type Severity Reaction Status Date / Time tizanidine (From Zanaflex) Allergy Unknown Verified 07/18/23 19:12 acetaminophen (From Percocet) AdvReac Mild Vomiting Verified 07/18/23 19:12 cyclobenzaprine (From AdvReac Mild Hallucinati Verified 07/18/23 19:12 Flexeril) ng oxycodone (From Percocet) AdvReac Mild Vomiting Verified 07/18/23 19:12 tramadol AdvReac Mild Vomiting Verified 07/18/23 19:12 Exam Narrative Exam Narrative: HEENT, normal, dry oral mucosa Falls asleep easily but answers questions appropriately Ht: tachycardic, RRR Lungs clear Abd: soft, NT, positive left flank tenderness : Yao indwelling, sediment around yao at urethral meatus, discharge Scrotum and testes WNL LE:s atrophied but not contracted Neuro: as above. No deficits. Constitutional Vital Signs, click to edit/add: Last Vital Signs Temp 99.4 F 05/26/24 11:51 Pulse 110 H 05/26/24 11:51 Resp 18 05/26/24 11:51 BP 97/59 05/26/24 11:51 Pulse Ox 92 L 05/26/24 11:51 O2 Del Method Room Air 05/26/24 11:51 O2 Flow Rate 2 05/22/24 15:59 Results Labs Labs: Short CBC 05/26/24 Range/Units 05:45 WBC 7.3 (4.0-11.0) 10^3/uL Hgb 12.8 L (14.0-18.0) g/dL Hct 38.4 L (42.0-54.0) % Plt Count 91 L (150-450) 10^3/uL BMP 05/26/24 05:46 Sodium 132 L Potassium 4.3 Chloride 96 L Carbon Dioxide 24.6 BUN 30.0 H Creatinine 1.87 H Glucose 228 H Calcium 8.1 L Liver Function 05/26/24 Range/Units 05:46 Total Bilirubin 0.7 (0.2-1.0) mg/dL AST 26 (15-37) U/L ALT 27 (16-63) U/L Alkaline Phosphatase 121 H (46-116) U/L Albumin 2.1 L (3.4-5.0) g/dL Additional Findings Additional findings: CT scan viewed, report viewed, labs viewed, UA and cultures viewed Urology Assessment and Plan Assessment and Plan (1) Septic shock: (2) Hydronephrosis with ureteral calculus: (3) DAVID (acute kidney injury): Assessment and Plan: does have CKD, but Cr up to 2.19 today (4) Chronic indwelling Yao catheter: Assessment and Plan: complicated UTI, continue levaquin. awaiting culture (5) Afib: Assessment and Plan: continue home meds Qualifiers: Atrial fibrillation type: paroxysmal Qualified Code(s): I48.0 - Paroxysmal atrial fibrillation (6) Bacterial UTI: Assessment and Plan: urine culture pending; continue levaquin. Urology consult tomorrow to see if any other options from Yao Cath. (7) Prostate cancer: Plan Plan is immediate operative intervention, with risk of hypotension, worsening shock Need to relieve obstruction, place stent alongside stone in upper left ureter Discussed high risk of surgery, yet high risk of progressive sepsis and possible if left untreated Pt. and son agree with plan. Consent signed.
[2024-05-26 14:20] LABS: Lactate/Lactic Acid 1.8 mmol/L (0.4-2.0)
[2024-05-26] MEDS: LACTATED RINGER'S SOLUTION 1,000 ML 50 ML IV (14:32)
[2024-05-26] MEDS: LACTATED RINGER'S SOLUTION 1,000 ML 75 ML IV (14:33)
[2024-05-26] MEDS: PREGABALIN 100 MG CAPSULE PO ×2 (14:42→21:41)
[2024-05-26 16:47] LABS: Glucometer 393 mg/dL (74-106)
[2024-05-26] MEDS: INSULIN ASPART 300 UNIT/3 ML PEN SUBQ ×2 (16:51→21:45)
[2024-05-26 20:08] LABS: Glucometer 329 mg/dL (74-106)
[2024-05-26] MEDS: MORPHINE SULFATE 15 MG TABLET.ER PO (21:41)
[2024-05-26] MEDS: DONEPEZIL HCL 10 MG TABLET PO (21:41)
[2024-05-26] MEDS: MAGNESIUM OXIDE 400 MG TABLET PO (21:41)
[2024-05-26] MEDS: METOPROLOL TARTRATE 25 MG TABLET PO (21:41)
[2024-05-26] MEDS: ATORVASTATIN CALCIUM 20 MG TABLET PO (21:41)
[2024-05-26] MEDS: BACLOFEN 10 MG TABLET PO (21:41)
[2024-05-27] VITALS (11 sets, daily range): BP systolic 112–149; BP diastolic 65–80; PULSE 70–80; TEMP 34.9–36.6; O2SAT 94–98
[2024-05-27] MEDS: ACETAMINOPHEN 325 MG TABLET 650 MG PO (03:51)
[2024-05-27] MEDS: PREGABALIN 100 MG CAPSULE PO ×3 (05:39→21:42)
[2024-05-27] MEDS: LEVOTHYROXINE SODIUM 25 MCG TABLET 50 MCG PO (05:39)
[2024-05-27 06:11] LABS: Basophils Percent Auto 0.2 % (0.2-2.0); Hematocrit 35.6 % (42.0-54.0); Hemoglobin 11.8 g/dL (14.0-18.0); Immature Granulocytes Abs Auto 0.06 10^3/uL (0.00-0.03); Immature Granulocytes Pct Auto 0.7 % (0.0-0.5); Lymphocytes Absolute Auto 0.5 10^3/uL (1.2-3.8); Lymphocytes Percent Auto 6.1 % (20.5-60.0); Mean Corpuscular HGB Conc 33.1 g/dL (29.9-35.2); Mean Corpuscular Hemoglobin 28.6 pg (25.9-34.0); Mean Corpuscular Volume 86.4 fL (80.0-94.0); Mean Platelet Volume 11.9 fL (9.5-13.5); Monocytes Absolute Auto 0.5 10^3/uL (0.3-0.8); Monocytes Percent Auto 5.3 % (1.7-12.0); Neutrophils Absolute Auto 7.7 10^3/uL (1.4-6.5); Neutrophils Percent Auto 87.7 % (43.0-75.0); Platelet Count 95 10^3/uL (150-450); Red Blood Count 4.12 10^6/uL (4.70-6.10); Red Cell Distribution Width 13.2 % (11.0-15.0); White Blood Count 8.8 10^3/uL (4.0-11.0)
[2024-05-27 06:30] LABS: Alanine Aminotransferase 37 U/L (16-63); Albumin Globulin Ratio 0.5; Albumin Level 1.9 g/dL (3.4-5.0); Alkaline Phosphatase 107 U/L (46-116); Anion Gap 11.4; Aspartate Amino Transferase 44 U/L (15-37); BUN Creatinine Ratio 21.8; Bilirubin Total 0.4 mg/dL (0.2-1.0); Calcium 8.5 mg/dL (8.5-10.1); Carbon Dioxide 26.5 mmol/L (21.0-32.0); Chloride 99 mmol/L (98-107); Estimated GFR (African America 55 (>=60 mL/min/1.73m^2); Estimated GFR (Non-African Ame 45 (>=60 mL/min/1.73m^2); Globulin 3.7 g/dL; Glucose 366 mg/dL (74-106); Magnesium 2.4 mg/dL (1.8-2.4); Potassium 4.9 mmol/L (3.5-5.1); Sodium 132 mmol/L (136-145); Total Protein 5.6 g/dL (6.4-8.2)
[2024-05-27 07:57] LABS: Glucometer 349 mg/dL (74-106)
--- NOTE | 2024-05-27 08:35 | P.PN_ITS ---
Progress Note: Subjective Subjective Interval history: Patient looks so much better today, he is sitting up in bed and talking with everyone, Smiling, says he feels so much better and his thoughts are clear. He has very limited pain on the left side. appetite has been good. No other issues or complaints today. Exam Narrative Exam Narrative: General: Patient is alert, and oriented to person, place and time with normal affect, proper hygiene Skin: no visible rashes, or ulcers Head: atraumatic, acephalic Eyes: PERRLA, no nystagmus present, conjunctiva clear, no scleral icterus Ears: normal gross auditory acuity Heart: Normal rate and rhythm, no murmurs/rubs/gallops Lungs: no audible wheezes, crackles and normal breath sounds all lung roper Abdomen: Normal audible bowel sounds, no distension, No palpable masses, no organomegaly, no rebound/guarding/ or rigidity Musculoskeletal: no swelling bilateral lower extremities Neuro: CN II-X grossly intact Constitutional Vital Signs, click to edit/add: Last Vital Signs Temp 94.9 F L 05/27/24 08:00 Pulse 77 05/27/24 08:00 Resp 12 05/27/24 08:00 BP 143/73 H 05/27/24 08:00 Pulse Ox 96 05/27/24 08:00 O2 Del Method Room Air 05/27/24 08:00 O2 Flow Rate 2 05/22/24 15:59 Progress Note: Objective Labs Labs: Short CBC 05/27/24 Range/Units 05:28 WBC 8.8 (4.0-11.0) 10^3/uL Hgb 11.8 L (14.0-18.0) g/dL Hct 35.6 L (42.0-54.0) % Plt Count 95 L (150-450) 10^3/uL BMP 05/27/24 05:28 Sodium 132 L Potassium 4.9 Chloride 99 Carbon Dioxide 26.5 BUN 32.0 H Creatinine 1.47 H Glucose 366 H Calcium 8.5 Liver Function 05/27/24 Range/Units 05:28 Total Bilirubin 0.4 (0.2-1.0) mg/dL AST 44 H (15-37) U/L ALT 37 (16-63) U/L Alkaline Phosphatase 107 (46-116) U/L Albumin 1.9 L (3.4-5.0) g/dL Progress Note: A&P Assessment and Plan (1) Sepsis with metabolic encephalopathy: Assessment and Plan: lactate normal, WBC's 8.8. 2 more days of levaquin. Mentation is so much better since surgery yesterday. (2) Hydronephrosis with ureteral calculus: Assessment and Plan: causing #1, went to OR today and much improved today (3) Bacterial UTI: Assessment and Plan: growing proteus on urine culture, 2 more days of levaquin. (4) DAVID (acute kidney injury): Assessment and Plan: Cr improving at 1.47 today. (5) Hypomagnesemia: Assessment and Plan: continue oral replacement (6) Chronic indwelling Dodge catheter: Assessment and Plan: monitor (7) DDD (degenerative disc disease), lumbar: Assessment and Plan: continue morphine, baclofen, lyrica Qualifiers: Disc-related pain type: unspecified whether pain present Qualified Code(s): M51.369 - Other intervertebral disc degeneration, lumbar region without mention of lumbar back pain or lower extremity pain (8) Lumbar radiculopathy: Assessment and Plan: see #6 (9) Yeast infection: Assessment and Plan: completed fluconazole (10) Chronic diastolic heart failure: Assessment and Plan: continue metoprolol, Losartan, dilt, lasix (11) Type 2 diabetes mellitus: Assessment and Plan: continue holding metformin and glipizide, continue SSI Qualifiers: Diabetes mellitus complication status: without complication Diabetes mellitus joint terminal attack controller insulin use: without jail use Qualified Code(s): E11.9 - Type 2 diabetes mellitus without complications (12) Afib: Assessment and Plan: NSR, takes aspirin and dilt, metoprolol Qualifiers: Atrial fibrillation type: paroxysmal Qualified Code(s): I48.0 - Paroxy smal atrial fibrillation (13) HLD (hyperlipidemia): Assessment and Plan: continue statin Qualifiers: Hyperlipidemia type: unspecified Qualified Code(s): E78.5 - Hyperlipidemia, unspecified (14) CKD stage 3 due to type 2 diabetes mellitus: Assessment and Plan: renally dose medications (15) Prostate cancer: Assessment and Plan: history of (16) Hypothyroidism (acquired): Assessment and Plan: continue levothyroxine (17) GERD without esophagitis: Assessment and Plan: continue famotidine Plan Patient is a DNRCC continue aspirin for prophylaxis hopeful discharge home tomorrow. Urinary Catheter Management Urinary Catheter Management Urethral: Cath placed during this visit: no
[2024-05-27] MEDS: INSULIN ASPART 300 UNIT/3 ML PEN SUBQ ×4 (08:50→21:41)
[2024-05-27] MEDS: ALLOPURINOL 300 MG TABLET PO (09:10)
[2024-05-27] MEDS: BACLOFEN 10 MG TABLET PO ×2 (09:10→21:42)
[2024-05-27] MEDS: ASPIRIN 81 MG TABLET.DR PO (09:10)
[2024-05-27] MEDS: DILTIAZEM HCL 180 MG CAP.ER.24H PO (09:11)
[2024-05-27] MEDS: FUROSEMIDE 40 MG TABLET PO (09:11)
[2024-05-27] MEDS: LOSARTAN POTASSIUM 50 MG TABLET PO (09:11)
[2024-05-27] MEDS: FAMOTIDINE 20 MG TABLET PO (09:11)
[2024-05-27] MEDS: MORPHINE SULFATE 15 MG TABLET.ER PO ×2 (09:12→21:42)
[2024-05-27] MEDS: METOPROLOL TARTRATE 25 MG TABLET PO ×2 (09:12→21:42)
[2024-05-27] MEDS: TAMSULOSIN HCL 0.4 MG CAPSULE PO (09:13)
[2024-05-27] MEDS: POTASSIUM CHLORIDE 10 MEQ ER TABLET 20 MEQ PO (09:13)
[2024-05-27] MEDS: SENNOSIDES/DOCUSATE SODIUM 1 TAB TABLET PO (09:13)
[2024-05-27] MEDS: LEVOFLOXACIN IN DEXTROSE 5 % 250 MG/50 ML PREMIX 50 MG IV (10:28)
--- NOTE | 2024-05-27 10:43 | REH.PTDLY ---
Physical Therapy Daily Note PT Daily Note/Assess Start: 05/25/24 11:13 Freq: Status: Active Protocol: Document 05/27/24 10:37 JANIS (Rec: 05/27/24 10:43 JANIS [id number]) Physical Therapy Daily Note/Assessment Time In 08:28 Time Out 08:46 Subjective Pt reports feeling much better today, had procedure yesterday to remove large kidney stone. Pt states he does not remember the past few days. Therapeutic Exercise Minutes (minutes) 7 Therapeutic Exercise Units 0 Therapeutic Exercise Treatment Instructed in B LE supine exs 10x ea with QS, heel slides, hip abd slides and SLR. Seated LAQ, marching, and hip add 10x ea for improved strength. Pt able to perform exs actively. Therapeutic Activity Minutes (minutes) 10 Therapeutic Activity Units 1 Therapeutic Activity Comments Supine to sit transfer Mod A. Pt has improved seated posture , is not leaning forward today as he was a couple days ago. Sit to stand transfer Min A x2 . Cues for posture. Pt able to perform stand pivot transfer using RW and taking small steps to get into chair with Min A x2. Cues for when to sit back for safety. Total Therapy Minutes 17 Total Physical Therapy Units 1 Daily Note Summary Pt doing much better today compared to previous days. Still requires Min A x2 for safety due to weakness with transfers. Pt could benefit from SNF stay for strength, but at families discretion if they prefer SNF or back home with hospice as pt was prior to admission.
--- NOTE | 2024-05-27 11:34 | CM.NOTE ---
Rounds made with Dr. Mark, pt more alert and verbalizes that he is feeling much better. Pt was able to get up today with PT. Dr. Mark discussed plan of care with pt and possible D/C to home with Hospice tomorrow.
[2024-05-27] MEDS: FERROUS SULFATE 325 MG TABLET PO (11:56)
[2024-05-27 12:02] LABS: Glucometer 267 mg/dL (74-106)
--- NOTE | 2024-05-27 14:10 | SWNOTE1 ---
MARCELLA did call and speak with Ashlee from [facility]. MARCELLA notified her that pt is doing better today and that the plan is for discharge tomorrow. MARCELLA advised her that updates were going to be sent today. At this time Ashlee voiced she does not need anything else and SW to touch base tomorrow.
[2024-05-27 16:10] LABS: Glucometer 278 mg/dL (74-106)
[2024-05-27 21:11] LABS: Glucometer 432 mg/dL (74-106)
[2024-05-27] MEDS: DONEPEZIL HCL 10 MG TABLET PO (21:42)
[2024-05-27] MEDS: ATORVASTATIN CALCIUM 20 MG TABLET PO (21:42)
[2024-05-27] MEDS: MAGNESIUM OXIDE 400 MG TABLET PO (21:42)
[2024-05-28 04:00] VITALS: BP 135/79; PULSE 66; TEMP 36.5; O2SAT 95
[2024-05-28] MEDS: PREGABALIN 100 MG CAPSULE PO ×2 (05:36→13:10)
[2024-05-28] MEDS: LEVOTHYROXINE SODIUM 25 MCG TABLET 50 MCG PO (05:36)
[2024-05-28 07:29] VITALS: BP 122/80; PULSE 70; TEMP 36.6; O2SAT 94
[2024-05-28 07:49] LABS: Glucometer 296 mg/dL (74-106)
[2024-05-28] MEDS: INSULIN ASPART 300 UNIT/3 ML PEN SUBQ ×2 (08:30→11:58)
--- NOTE | 2024-05-28 08:34 | PM.DS1 ---
DS: Providers Provider Date of admission: 05/23/24 09:03 Primary care physician: Shaikh Lexi MD Admitting clinician: Liza Mark Consults: 05/23/24 12:58 Consult to Urology Routine Consulting Provider: Olman Aponte Reason for consultation: indwelling Yao, with UTI/sepsis, any other options for him besides yao? Has provider been notified: No 05/24/24 Physical Therapy Eval and Treat Routine Reason for consultation: weakness Discharging clinician: Liza Mark DS: Diagnosis Discharge Diagnosis (1) Sepsis with metabolic encephalopathy: Assessment and plan: patient with significant confusion, but is has now improved and back to his baseline. (2) Hydronephrosis with ureteral calculus: Assessment and plan: stent placement left ureter 05/26/24, Will have close follow up with Urology for removal. Replaced Yao Catheter (3) Bacterial UTI: Assessment and plan: Caused from indwelling yao and kidney stone. Urine culture grew Proteus and Klebsiella, Treated with 7 days of Levaquin IV here, will place on Cefuroxime 250mg daily x 7 days to complete course. (4) DAVID (acute kidney injury): Assessment and plan: was 2.19 down to 1.41 (5) Hypomagnesemia: Assessment and plan: continue oral replacement (6) Chronic indwelling Yao catheter: Assessment and plan: causing infection along with sepsis. (7) DDD (degenerative disc disease), lumbar: Assessment and plan: requring less pain medication since cysto and stone removal, I have decreased morphine dosage to 15mg BID from 30mg BID Qualifiers: Disc-related pain type: unspecified whether pain present Qualified Code(s): M51.369 - Other intervertebral disc degeneration, lumbar region without mention of lumbar back pain or lower extremity pain (8) Lumbar radiculopathy: Assessment and plan: resume hospice and palliative meds (9) Yeast infection: Assessment and plan: completed fluconazole (10) Chronic diastolic heart failure: Assessment and plan: no acute exacerbations. (11) Type 2 diabetes mellitus: Assessment and plan: resume metformin and glipizide Qualifiers: Diabetes mellitus complication status: without complication Diabetes mellitus fpc insulin use: without intermediate project manager use Qualified Code(s): E11.9 - Type 2 diabetes mellitus without complications (12) Afib: Assessment and plan: continue home meds and aspirin Qualifiers: Atrial fibrillation type: paroxysmal Qualified Code(s): I48.0 - Paroxysmal atrial fibrillation (13) HLD (hyperlipidemia): Qualifiers: Hyperlipidemia type: unspecified Qualified Code(s): E78.5 - Hyperlipidemia, unspecified (14) CKD stage 3 due to type 2 diabetes mellitus: (15) Prostate cancer: (16) Hypothyroidism (acquired): (17) GERD without esophagitis: DS: Summary Hospital Course Hospital Course: This is an 88-year-old male patient with a past medical history of DM 2 non insulin dependent, severe lumbar stenosis and chronic lumbar pain, BPH, history of prostate cancer, hypertension, and hyperlipidemia. He lives home alone but has hospice/palliative care services and nursing care twice a day along with family support. His son is present at bedside this morning. Yesterday, became more lethargic and was brought to the ER. Patient has indwelling Yao Catheter and Home health nursing has been changing it because of frequent clogging. Son notes the Yao has been present since October for urinary retention. He use to follow with Dr. Garcia but the hospice nurses have just been changing it as needed. In the ER Patient was found to have ACUTE on chronic renal failure, leukocytosis, positive UA and elevated Lactate level of 2.8, up to 3.8. He was hypotensive and also tachycardic with low grade temp. Patient was given some IVF and given rocephin. He was admitted with sepsis with metabolic encephalopathy secondary to Acute UTI.I stopped rocephin, place on IV levaquin based on previous culture results, renally dosed. He completed 7 days of IV levaquin. New urine culture is growing Proteus and Klebsiella, both sensitive to the Levaquin but will place on Cefuroxime 250mg daily x 7 days at discharge. I consulted urology on 05/24/24, there was a delay in consultation. I ordered a CT scan on 05/25/24 which showed a left obstructive ureter stone with hydronephrosis and some concerning contents in bladder. Patient was scheduled for OR Cysto on 05/26 at 4pm but patient became septic, with temp 103, tachy 100's and hypotensive. He was taken to OR at noon on 05/26. Appears per Op note patient had large bladder stone and obstructive stone of the left ureter. Left ureter stent was placed and Yao was changed. Since OR time on 05/26, mentation has drastically improved. He is now back to baseline. Good urine output. has been afebrile. Cr. 1.41 at the time of discharge. He will have close follow up with urology for stent removal. He will be discharged home with Yao catheter. He will resume home medications. Hospice care will also resume care after discharge. He may return to the ER with any worsening signs or symptoms. Status at Discharge Functional status at discharge: uses cane/walker Overall status at discharge: patient is progressing back to baseline Time Spent with Patient Time attestation: Total time spent providing and/or coordinating discharge services: Time spent: greater than 30 minutes Exam Narrative Exam Narrative: General: Patient is alert, and oriented to person, place and time with normal affect, proper hygiene Skin: no visible rashes, or ulcers Head: atraumatic, acephalic Eyes: PERRLA, no nystagmus present, conjunctiva clear, no scleral icterus Ears: diminished gross auditory acuity Heart: Normal rate and rhythm, no murmurs/rubs/gallops Lungs: no audible wheezes, crackles and normal breath sounds all lung roper Abdomen: Normal audible bowel sounds, no distension, No palpable masses, no organomegaly, no rebound/guarding/ or rigidity Musculoskeletal: no swelling bilateral lower extremities Neuro: CN II-X grossly intact Constitutional Vital Signs, click to edit/add: Last Vital Signs Temp 97.9 F 05/28/24 07:29 Pulse 70 05/28/24 07:29 Resp 20 05/28/24 07:29 BP 122/80 05/28/24 07:29 Pulse Ox 94 L 05/28/24 07:29 O2 Del Method Room Air 05/28/24 07:29 O2 Flow Rate 2 05/22/24 15:59 DS: Data Data Completed and Pending Labs on day of discharge: Labs from last 24 hours 05/28/24 05/27/24 05/27/24 07:48 21:07 16:03 POC Glucose 296 H 432 H 278 H 05/27/24 12:00 POC Glucose 267 H Preliminary micro results at discharge 05/22/24 23:00 Blood Culture Result 2 - Preliminary Blood NO GROWTH AT 36-48 HOURS. FINAL TO FOLLOW. 05/22/24 22:48 Blood Culture Result 1 - Preliminary Blood NO GROWTH AT 36-48 HOURS. FINAL TO FOLLOW. Discharge Plan Discharge Disposition: Hospice - Home Condition: Fair Discharge Medications: New cefuroxime axetil 250 mg tablet 250 mg PO DAILY 7 Days Qty: 7 0RF Continued aspirin 81 mg capsule 81 mg PO DAILY diltiazem HCl 180 mg capsule,extended release 24hr 180 mg PO DAILY ferrous sulfate 325 mg (65 mg iron) tablet 325 mg PO .every other day famotidine 20 mg tablet 20 mg PO DAILY tamsulosin [Flomax] 0.4 mg capsule 0.4 mg PO DAILY fluticasone propionate [Flonase Allergy Relief] 50 mcg/actuation spray,suspension 2 spray intranasal DAILY PRN (Reason: nasal congestion) Rx Instructions: administer into each nostril magnesium aspart,citrate,oxide 400 mg magnesium capsule 400 mg PO BEDTIME psyllium husk [Metamucil] 0.4 gram capsule 0.4 g PO DAILY metoprolol tartrate 25 mg tablet 25 mg PO BID atorvastatin 20 mg tablet 20 mg PO DAILY baclofen 10 mg tablet 10 mg PO BID pregabalin [Lyrica] 100 mg capsule 100 mg PO TID 5 Days Qty: 15 0RF acetaminophen [Tylenol Extra Strength] 500 mg tablet 1,000 mg PO Q8H PRN (Reason: pain) potassium chloride [Klor-Con M20] 20 mEq tablet,ER particles/crystals 20 meq PO DAILY furosemide 20 mg tablet 40 mg PO DAILY Qty: 0 0RF losartan 100 mg tablet 50 mg PO DAILY Qty: 0 0RF Culturelle 10 billion cell capsule 1 cap PO DAILY multivitamin Tablet 1 tab PO BID glipizide 5 mg tablet 5 mg PO BID ondansetron HCl 8 mg tablet 8 mg PO Q8H PRN (Reason: nausea and vomiting) loperamide 2 mg tablet 2 mg PO Q6H PRN (Reason: loose stool) metoclopramide HCl 5 mg tablet 5 mg PO Q6H PRN (Reason: nausea and vomiting) metformin 500 mg tablet extended release 24 hr 500 mg PO DAILY sennosides-docusate sodium [Stimulant Laxative Plus] 8.6-50 mg tablet 1 tab-cap PO DAILY donepezil 10 mg tablet 10 mg PO DAILY allopurinol 300 mg tablet 300 mg PO DAILY levothyroxine 50 mcg tablet 50 mcg PO DAILY cholecalciferol (vitamin D3) [Vitamin D3] 25 mcg (1,000 unit) capsule 50 mcg PO DAILY albuterol sulfate [ProAir HFA] 90 mcg/actuation HFA aerosol inhaler 1 inh inhalation Q4H PRN (Reason: shortness of breath or wheezing) nitroglycerin [Nitrostat] 0.4 mg tablet, sublingual 0.4 mg sublingual Q5M PRN (Reason: chest pain) Rx Instructions: do not exceed 3 doses per episode Changed morphine 30 mg tablet extended release 15 mg PO Q12H Qty: 0 0RF guaifenesin [Mucinex] 600 mg tablet extended release 12hr 600 mg PO Q12H PRN (Reason: Cough) Qty: 0 0RF Held methenamine hippurate 1 gram tablet 1 g PO Q12H Hold Instructions: Resume on 06/05/24. 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 Please call urology office to see if they would like him evaluated sooner with the stent. Forms: Portal Instructions Referrals: Olman Aponte MD [Physician] - Discharge location: Appointment with UrologyDr. Aponte June 29 at 10:15am, [place]
[2024-05-28] MEDS: POTASSIUM CHLORIDE 10 MEQ ER TABLET 20 MEQ PO (08:46)
[2024-05-28] MEDS: FUROSEMIDE 40 MG TABLET PO (08:46)
[2024-05-28] MEDS: BACLOFEN 10 MG TABLET PO (08:46)
[2024-05-28] MEDS: LOSARTAN POTASSIUM 50 MG TABLET PO (08:46)
[2024-05-28] MEDS: SENNOSIDES/DOCUSATE SODIUM 1 TAB TABLET PO (08:46)
[2024-05-28] MEDS: MORPHINE SULFATE 15 MG TABLET.ER PO (08:46)
[2024-05-28] MEDS: DILTIAZEM HCL 180 MG CAP.ER.24H PO (08:46)
[2024-05-28] MEDS: ALLOPURINOL 300 MG TABLET PO (08:46)
[2024-05-28] MEDS: ASPIRIN 81 MG TABLET.DR PO (08:46)
[2024-05-28] MEDS: METOPROLOL TARTRATE 25 MG TABLET PO (08:46)
[2024-05-28] MEDS: TAMSULOSIN HCL 0.4 MG CAPSULE PO (08:46)
[2024-05-28] MEDS: FAMOTIDINE 20 MG TABLET PO (08:46)
[2024-05-28 09:06] LABS: Hematocrit 38.3 % (42.0-54.0); Hemoglobin 12.8 g/dL (14.0-18.0); Mean Corpuscular HGB Conc 33.4 g/dL (29.9-35.2); Mean Corpuscular Hemoglobin 28.6 pg (25.9-34.0); Mean Corpuscular Volume 85.7 fL (80.0-94.0); Mean Platelet Volume 11.4 fL (9.5-13.5); Platelet Count 135 10^3/uL (150-450); Red Blood Count 4.47 10^6/uL (4.70-6.10); Red Cell Distribution Width 13.2 % (11.0-15.0); White Blood Count 9.4 10^3/uL (4.0-11.0)
[2024-05-28 09:17] LABS: Alanine Aminotransferase 66 U/L (16-63); Albumin Globulin Ratio 0.7; Albumin Level 2.3 g/dL (3.4-5.0); Alkaline Phosphatase 107 U/L (46-116); Anion Gap 15.6; Aspartate Amino Transferase 58 U/L (15-37); Bilirubin Total 0.4 mg/dL (0.2-1.0); Calcium 8.3 mg/dL (8.5-10.1); Carbon Dioxide 25.8 mmol/L (21.0-32.0); Chloride 95 mmol/L (98-107); Estimated GFR (African America 58 (>=60 mL/min/1.73m^2); Estimated GFR (Non-African Ame 48 (>=60 mL/min/1.73m^2); Globulin 3.5 g/dL; Glucose 323 mg/dL (74-106); Potassium 4.4 mmol/L (3.5-5.1); Sodium 132 mmol/L (136-145); Total Protein 5.8 g/dL (6.4-8.2)
[2024-05-28 09:35] LABS: Atypical Lymphocytes Abs Man 0.18; Lymphocytes Absolute Manual 1.41 10^3/uL (1.20-3.80); Monocytes Absolute Manual 0.47 10^3/uL (0.30-0.80); Segmented Neut Absolute Manual 7.33 10^3/uL (1.4-6.5)
--- NOTE | 2024-05-28 09:55 | CM.NOTE ---
Rounds made with Dr. Mark. Dr. Mark reviews testing and plan for discharge to home today. Family in agreement.
[2024-05-28] MEDS: LEVOFLOXACIN IN DEXTROSE 5 % 250 MG/50 ML PREMIX 50 MG IV (10:44)
[2024-05-28 11:02] VITALS: O2SAT 95
[2024-05-28 11:16] LABS: Glucometer 390 mg/dL (74-106)
--- NOTE | 2024-05-28 11:24 | SWNOTE1 ---
MARCELLA spoke with Ashlee from [facility] and she requested dc summary and dc med rec kevin since pt is leaving later today. SW sent over dc med rec and dc summary and labs from today. MARCELLA called and confirmed with pt's son, Corey, family will be transporting patient home today. Family getting hospice and caregivers lined up and then they will be in to take patient home.
--- NOTE | 2024-05-28 11:35 | PT.DAILY ---
Physical Therapy Daily Note PT Daily Note/Assess Start: 05/25/24 11:13 Freq: Status: Active Protocol: Document 05/28/24 11:27 EDISTACIBENITO (Rec: 05/28/24 11:35 [email or web address] [id number]) Physical Therapy Daily Note/Assessment Time In/Time Out Time In 10:05 Time Out 10:35 Pain In Pain N/A Pain Out Pain N/A Subjective Subjective pt supine upon arrival. Agrees to PT. Wishes to use commode. Therapeutic Activity Time Therapeutic Activity Minutes (minutes) 25 Therapeutic Activity Units 2 Therapeutic Activity Treatment Bed Mobility Ability Maximum Assist,Total Assist Chair Transfer Ability Maximum Assist,2 Person Assist Therapeutic Activity Comments Supine>sit MaxA with increased time needed. Unable to sit unsupported at EOB needs bilat UE support and occ with demonstrate R lateral lean. Pt attempted to stand to RW with MaxA but unable to extend knees and he demonstrates a very heavy forward flexed posture. Attempted vc and tactile cues and pt is still unable to safely stand. Nursing comes to assist with commode transfer. Sit>stand MaxA+2 with stand pivot to commode. Once pt has BM he requires MaxA+1 to assist with standing then another total assist for cleaning periarea. Pt takes multiple seated rest breaks before fully clean. Once clean, pt then stand pivots with maxA of 2 to edge of bed. Pt requires another standing attempt and MaxA+2 to take a few side steps up edge of bed. total assist for sit> supine. Remains supine with call light in reach and needs met. Total Physical Therapy Time Total Therapy Minutes 25 Total Physical Therapy Units 2 Summary Daily Note Summary Decline in transfer ability from yesterday with nursing. Easily fatigued. Would benefit from skilled if does not choose to go back with hospice . Will likely require more care at home than he was receiving previous to his hospitalization.
--- NOTE | 2024-05-31 11:30 | SWNOTE1 ---
MARCELLA spoke with Ashlee at [facility] and she would like MARCELLA to fax over nursing notes and any diagnostic imaging for continuity of care. She also stated pt is coming back to the ED as he has had minimal urine output.
--- NOTE | 2024-05-31 13:36 | CM.DCFOLLOWU ---
Patient is down in the Emergency Dept. 05/31/24
== END 2024-05-28 16:31 | disposition home or self-care (01) | DRG 871 ==
LOC: ER 17:50 → MS 18:18
PROVIDERS: Registered Nurse; Urology; Admitting Provider Family Medicine; Emergency Provider Emergency Medicine; PCP Internal Medicine; Visit Provider Family Medicine
PROC: 0WHR8YZ Insertion of Other Device into Genitourinary Tract, Via Natural or Artificial Opening Endoscopic (ICD-10-PCS; principal; 2024-05-26 16:00)
DX: A41.59 Other Gram-negative sepsis (principal); G93.41 Metabolic encephalopathy; R65.21 Severe sepsis with septic shock; T83.511A Infection and inflammatory reaction due to indwelling urethral catheter, initial encounter; N17.9 Acute kidney failure, unspecified; I50.32 Chronic diastolic (congestive) heart failure; N13.6 Pyonephrosis; E83.42 Hypomagnesemia; M51.16 Intervertebral disc disorders with radiculopathy, lumbar region; M48.061 Spinal stenosis, lumbar region without neurogenic claudication; B37.9 Candidiasis, unspecified; E11.22 Type 2 diabetes mellitus with diabetic chronic kidney disease; I48.0 Paroxysmal atrial fibrillation; N18.30 Chronic kidney disease, stage 3 unspecified; E03.9 Hypothyroidism, unspecified; E78.5 Hyperlipidemia, unspecified; K21.9 Gastro-esophageal reflux disease without esophagitis; Z85.46 Personal history of malignant neoplasm of prostate; Z66 Do not resuscitate; Z79.899 Other long term (current) drug therapy; Z79.84 Long term (current) use of oral hypoglycemic drugs; Z98.890 Other specified postprocedural states; Z79.82 Long term (current) use of aspirin; Z79.890 Hormone replacement therapy
CPT/HCPCS: 36415; 74176; 76000; 80053; 81001; 82948; 83605; 83735; 84443; 85007; 85025; 85027; 87040; 87086; 87150; 87186; 93005; 94761; 96361; 96365; 97110; 97162; 97530; 99285; G0378; J0131; J0696; J1100; J1171; J1644; J1956; J2371; J2405; J2599; J2704; J3010; J3475

== ENCOUNTER 2024-05-31 11:44 | Emergency (ER) | payer MEDICARE, SELFPAY ==
[2024-05-31] VITALS (10 sets, daily range): BP systolic 106–108; BP diastolic 62–64; PULSE 79–88; TEMP 36.8; O2SAT 91–96; BMI 28.7
--- NOTE | 2024-05-31 12:37 | ECG_ITS ---
[facility] Test Date: 2024-05-31 Pat Name: GUILLERMINA GUADALUPE Department: Room: - Gender: Male Wage Hand: : 1935 Requested By: [id number] Order Number: [id number] Reading MD: ADEBAYO REA Measurements Intervals Keeler Rate: 84 P: 44 DC: 140 QRS: 153 QRSD: 140 T: 20 QT: 400 QTc: 441 Interpretive Statements 1100 Sinus rhythm 2450 Right bundle branch block 2730 Left posterior fascicular block 9150 abnormal ECG Electronically Signed On 05-31-2024 19:50:44 EST by ADEBAYO REA
--- NOTE | 2024-05-31 12:45 | ED.GENADUL1 ---
HPI HPI - General Adult General Chief complaint: Weakness Stated complaint: general weakness Time Seen by Provider: 05/31/24 12:16 Source: patient Mode of arrival: Wheelchair Limitations: no limitations History of Present Illness HPI narrative: Patient is a 88-year-old male who is presenting by EMS with son at bedside for generalized weakness. Patient lives at home by himself, he was fairly independent before last hospitalization. Patient son is at bedside, he is a excellent historian. Patient son and son live next to the patient and help take care of him. Patient currently is in [facility] care as well. Patient was very sick last week, patient had infected stone. Patient was seen by hospitalist and Dr. Aponte. Patient had a ureter stent placed. Patient eventually went home Friday. Since patient has been home, he has been generalized weakness, fidgety, not acting like himself, not able to perform ADLs, not able to perform transfers. Patient is slightly fidgety in bed. Patient however says he has no headache or neck pain. He has no chest pain or shortness of breath. No abdominal pain nausea vomiting. When patient arrived, he had approximately 7 to 800 cc of urine in the bag. Patient did just start taking Pyridium. Patient urine is or just reddish coloration. Family is concerned that patient was not having a significant amount of output in the Dodge catheter bag this morning, only filling up approximate one third overnight. Patient's son states that he typically does drink 3 large water bottles of water throughout the day. Patient has been slightly confused, patient's son had to tell the patient 3 times to make sure that he takes his pills last evening. Patient gets morphine at nighttime in the morning. Patient to get morphine last night and that this morning, because patient son did not want to have him too sedated today so they can evaluate and see what may be going on or why he is becoming more weak in last 2 days. No recent falls. No injury to arms or legs. No other acute complaints All systems are negative except as noted/marked. All systems reviewed and otherwise negative. Nurses note and vital signs reviewed and patient is not hypoxic. General: The patient appears well and in no apparent distress. Patient is resting comfortably on cart. Patient is not toxic, mild lethargic, not listless. Patient will answer questions appropriately, Skin: Warm, dry, no pallor noted. There is no rash noted. No petechiae, purpura. No signs of bruising or ecchymosis anywhere. Head: Normocephalic, atraumatic Eye: Normal conjunctiva, no drainage, EOMI. PERRL Ears, Nose, Mouth, and Throat: oral mucosa is moist. Nares patent. Mouth without vesicles. Cardiovascular: Regular Rate and Rhythm, no murmur, gallop, rub Respiratory: Patient is in no distress, no accessory muscle use, lungs are clear to auscultation, no wheezing, rales or rhonchi Back: non-tender, no CVA tenderness bilaterally to percussion. No CT LS midline pain GI: no tenderness to palpation, no masses appreciated. No rebound, guarding, or rigidity noted. No distention : Patient is circumcised, Dodge catheter in place. No redness or signs of acute abnormality to the glans of the penis or penis. No pain to bilateral testicles. No suprapubic tenderness to palpation. Dodge catheter is in place. Musculoskeletal: Patient has full range of motion of all of the extremities, no motor, sensory, or focal neurological deficits Neurological: A&O x3, slightly confused to time,, slow to respond compared to patient's normal baseline per son at bedside. Psychiatric: Cooperative Related Data Home Medications ?Medication ?Instructions ?Recorded ?Confirmed albuterol sulfate 90 mcg/actuation 1 inh inhalation Q4H PRN shortness 12/27/22 05/22/24 aerosol inhaler (ProAir HFA) of breath or wheezing allopurinol 300 mg tablet 300 mg PO DAILY 12/27/22 05/22/24 cholecalciferol (vitamin D3) 25 50 mcg PO DAILY 12/27/22 05/22/24 mcg (1,000 unit) capsule (Vitamin D3) levothyroxine 50 mcg tablet 50 mcg PO DAILY 12/27/22 05/22/24 nitroglycerin 0.4 mg sublingual 0.4 mg sublingual Q5M PRN chest 12/27/22 05/22/24 tablet (Nitrostat) pain aspirin 81 mg capsule 81 mg PO DAILY 01/09/23 05/22/24 diltiazem HCl 180 mg 180 mg PO DAILY 01/09/23 05/22/24 capsule,extended release 24 hr famotidine 20 mg tablet 20 mg PO DAILY 01/09/23 05/22/24 ferrous sulfate 325 mg (65 mg 325 mg PO .every other day 01/09/23 05/22/24 iron) tablet fluticasone propionate 50 2 spray intranasal DAILY PRN nasal 01/09/23 05/22/24 mcg/actuation nasal congestion spray,suspension (Flonase Allergy Relief) magnesium aspart,citrate,oxide 400 mg PO BEDTIME 01/09/23 05/22/24 metoprolol tartrate 25 mg tablet 25 mg PO BID 01/09/23 05/22/24 psyllium husk 0.4 gram capsule 0.4 g PO DAILY 01/09/23 05/22/24 (Metamucil) tamsulosin 0.4 mg capsule (Flomax) 0.4 mg PO DAILY 01/09/23 05/22/24 atorvastatin 20 mg tablet 20 mg PO DAILY 01/10/23 05/22/24 baclofen 10 mg tablet 10 mg PO BID muscle spasm 01/10/23 05/22/24 Lactobacillus rhamnosus GG 10 1 cap PO DAILY 07/18/23 05/22/24 billion cell capsule (Culturelle) glipizide 5 mg tablet 5 mg PO BID 07/18/23 05/22/24 multivitamin 1 tab PO BID 07/18/23 05/22/24 acetaminophen 500 mg tablet 1,000 mg PO Q8H PRN pain 09/13/23 05/22/24 (Tylenol Extra Strength) potassium chloride 20 mEq 20 meq PO DAILY 09/13/23 05/22/24 tablet,extended release(part/cryst) (Klor-Con M) loperamide 2 mg tablet 2 mg PO Q6H PRN loose stool 05/22/24 05/22/24 metformin 500 mg tablet,extended 500 mg PO DAILY 05/22/24 05/22/24 release 24 hr methenamine hippurate 1 gram tablet 1 g PO Q12H 05/22/24 05/22/24 metoclopramide HCl 5 mg tablet 5 mg PO Q6H PRN nausea and vomiting 05/22/24 05/22/24 ondansetron HCl 8 mg tablet 8 mg PO Q8H PRN nausea and vomiting 05/22/24 05/22/24 donepezil 10 mg tablet 10 mg PO DAILY 05/23/24 05/23/24 sennosides 8.6 mg-docusate sodium 1 tab-cap PO DAILY 05/23/24 05/23/24 50 mg tablet (Stimulant Laxative Plus) Previous Rx's ?Medication ?Instructions ?Recorded pregabalin 100 mg capsule (Lyrica) 100 mg PO TID 5 days #15 caps 08/25/23 furosemide 20 mg tablet 40 mg (2 x 20 mg) PO DAILY #0 tabs 09/16/23 losartan 100 mg tablet 50 mg (1/2 x 100 mg) PO DAILY #0 09/16/23 tabs cefuroxime axetil 250 mg tablet 250 mg PO DAILY 7 days #7 tabs 05/28/24 guaifenesin 600 mg tablet, 600 mg PO Q12H PRN Cough #0 tabs 05/28/24 extended release 12 hr (Mucinex) morphine 30 mg tablet,extended 15 mg (1/2 x 30 mg) PO Q12H #0 tabs 05/28/24 release Allergies Allergy/AdvReac Type Severity Reaction Status Date / Time tizanidine (From Zanaflex) Allergy Unknown Unknown Verified 05/31/24 11:57 acetaminophen (From Percocet) AdvReac Mild Vomiting Verified 05/31/24 11:57 cyclobenzaprine (From AdvReac Mild Hallucinati Verified 05/31/24 11:57 Flexeril) ng oxycodone (From Percocet) AdvReac Mild Vomiting Verified 05/31/24 11:57 tramadol AdvReac Mild Vomiting Verified 05/31/24 11:57 Opioid HPI Opioid Management Most Recent Opioid Data: Last Pain Scale 6 05/27/24 16:05 05/27/24 Last Pain Intensity 10 09/16/23 11:39 09/16/23 Last Pain Assessment 05/28/24 15:48 Last ORT Total Score 0 05/22/24 18:31 05/22/24 Last ORT Risk Category Low Risk 05/22/24 18:31 05/22/24 [facility] Medical History (Updated 05/31/24 @ 15:14 by Lowell Hess MD) GERD without esophagitis ?K21.9 - Gastro-esophageal reflux disease without esophagitis (ICD-10) Hypothyroidism (acquired) ?E03.9 - Hypothyroidism, unspecified (ICD-10) DNR (do not resuscitate) ?Z66 - Do not resuscitate (ICD-10) Chronic indwelling Dodge catheter ?Z97.8 - Presence of other specified devices (ICD-10) E. coli UTI ?N39.0 - Urinary tract infection, site not specified (ICD-10) ?B96.20 - Unspecified Escherichia coli [E. coli] as the cause of diseases classified elsewhere (ICD-10) Yeast infection ?B37.9 - Candidiasis, unspecified (ICD-10) Cellulitis of scrotum ?N49.2 - Inflammatory disorders of scrotum (ICD-10) Decubitus ulcer of sacral area ?L89.159 - Pressure ulcer of sacral region, unspecified stage (ICD-10) DDD (degenerative disc disease), lumbar ?M51.36 - Other intervertebral disc degeneration, lumbar region (ICD-10) Lumbar radiculopathy ?M54.16 - Radiculopathy, lumbar region (ICD-10) Intractable low back pain ?M54.59 - Other low back pain (ICD-10) Unable to ambulate ?R26.2 - Difficulty in walking, not elsewhere classified (ICD-10) Chronic kidney disease ?N18.9 - Chronic kidney disease, unspecified (ICD-10) Spondylosis ?M47.9 - Spondylosis, unspecified (ICD-10) Radiculopathy ?M54.10 - Radiculopathy, site unspecified (ICD-10) Chronic diastolic heart failure ?I50.32 - Chronic diastolic (congestive) heart failure (ICD-10) Type 2 diabetes mellitus ?E11.9 - Type 2 diabetes mellitus without complications (ICD-10) Afib ?I48.91 - Unspecified atrial fibrillation (ICD-10) Spinal stenosis ?M48.00 - Spinal stenosis, site unspecified (ICD-10) Peripheral edema ?R60.0 - Localized edema (ICD-10) Hypertension ?I10 - Essential (primary) hypertension (ICD-10) Lumbar spondylosis ?M47.816 - Spondylosis without myelopathy or radiculopathy, lumbar region (ICD-10) Chronic low back pain ?M54.50 - Low back pain, unspecified (ICD-10) ?G89.29 - Other chronic pain (ICD-10) Anxiety ?F41.9 - Anxiety disorder, unspecified (ICD-10) Shortness of breath ?R06.02 - Shortness of breath (ICD-10) 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 ?R33.9 - Retention of urine, unspecified (ICD-10) Ambulatory dysfunction ?R26.2 - Difficulty in walking, not elsewhere classified (ICD-10) HLD (hyperlipidemia) ?E78.5 - Hyperlipidemia, unspecified (ICD-10) Depression with anxiety ?F41.8 - Other specified anxiety disorders (ICD-10) Acute hypokalemia ?E87.6 - Hypokalemia (ICD-10) Intractable low back pain ?M54.59 - Other low back pain (ICD-10) CKD stage 3 due to type 2 diabetes mellitus ?E11.22 - Type 2 diabetes mellitus with diabetic chronic kidney disease (ICD-10) ?N18.30 - Chronic kidney disease, stage 3 unspecified (ICD-10) Lumbar stenosis with neurogenic claudication ?M48.062 - Spinal stenosis, lumbar region with neurogenic claudication (ICD-10) Osteoarthritis of right knee ?M17.11 - Unilateral primary osteoarthritis, right knee (ICD-10) Chronic pain syndrome ?G89.4 - Chronic pain syndrome (ICD-10) Chronic prescription opiate use ?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 (ICD-10) Osteoarthritis, 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 - Primary osteoarthritis, unspecified shoulder (ICD-10) Right shoulder pain ?M25.511 - Pain in right shoulder (ICD-10) Lumbar radiculopathy ?M54.16 - Radiculopathy, lumbar region (ICD-10) Abdominal pain ?R10.9 - Unspecified abdominal pain (ICD-10) Nausea & vomiting ?R11.2 - Nausea with vomiting, unspecified (ICD-10) Esophagitis ?K20.90 - Esophagitis, unspecified without bleeding (ICD-10) Muscle spasm ?M62.838 - Other muscle spasm (ICD-10) Lumbar stenosis ?M48.061 - Spinal stenosis, lumbar region without neurogenic claudication (ICD-10) Retraction of blood clot ?I74.9 - Embolism and thrombosis of unspecified artery (ICD-10) Inguinal hernia ?K40.90 - Unilateral inguinal hernia, without obstruction or gangrene, not specified as recurrent (ICD-10) Presence of Watchman left atrial appendage closure device ?Z95.818 - Presence of other cardiac implants and grafts (ICD-10) Low back pain ?M54.50 - Low back pain, unspecified (ICD-10) Rheumatoid arthritis ?M06.9 - Rheumatoid arthritis, unspecified (ICD-10) Osteoarthritis ?M19.90 - Unspecified osteoarthritis, unspecified site (ICD-10) Gout ?M10.9 - Gout, unspecified (ICD-10) DVT (deep venous thrombosis) ?I82.409 - Acute embolism and thrombosis of unspecified deep veins of unspecified lower extremity (ICD-10) Hearing deficit ?H91.90 - Unspecified hearing loss, unspecified ear (ICD-10) IBS (irritable bowel syndrome) ?K58.9 - Irritable bowel syndrome without diarrhea (ICD-10) Acid reflux ?K21.9 - Gastro-esophageal reflux disease without esophagitis (ICD-10) Hypothyroid ?E03.9 - Hypothyroidism, unspecified (ICD-10) Diabetes 1.5, managed as type 2 ?E13.9 - Other specified diabetes mellitus without complications (ICD-10) Kidney stone ?N20.0 - Calculus of kidney (ICD-10) Prostate cancer ?C61 - Malignant neoplasm of prostate (ICD-10) CPAP (continuous positive airway pressure) dependence ?Z99.89 - Dependence on other enabling machines and devices (ICD-10) Sleep apnea ?G47.30 - Sleep apnea, unspecified (ICD-10) Hypercholesterolemia ?E78.00 - Pure hypercholesterolemia, unspecified (ICD-10) Surgical History H/O transurethral resection of bladder tumor (TURBT) ?Z98.890 - Other specified postprocedural states (ICD-10) ?Z86.03 - Personal history of neoplasm of uncertain behavior (ICD-10) H/O arthroscopy of knee ?Z98.890 - Other specified postprocedural states (ICD-10) S/P tonsillectomy and adenoidectomy ?Z90.89 - Acquired absence of other organs (ICD-10) Previous back surgery ?Z98.890 - Other specified postprocedural states (ICD-10) H/O neck surgery ?Z98.890 - Other specified postprocedural states (ICD-10) Family History Other Family history of diabetes mellitus Social History Within the past year, how often did you have a drink containing alcohol: never Score interpretation: A score less than 4 is consistent with normal alcohol consumption. Smoking status: Never smoker Non-prescribed substance use: denies use Previous occupational history: retired Known occupational exposures/hazards: No Highest level of school completed/degree received: high school graduate Are you now , , , , never or living with a partner: In a typical week, how many times do you talk on the telephone with family, friends, or neighbors: 3 or more times per week How often do you get together with friends or relatives: 3 or more times per week How often do you attend religion or anglican services: never Do you belong to any clubs or organizations such as religion groups unions, [employer] or athletic groups, or school groups: no Total score: 1 Score interpretation: A score of less than or equal to 1 indicates the most socially isolated. Little interest or pleasure in doing things: not at all Feeling down, depressed, or hopeless: not at all Feel stressed/tense/nervous/anxious/difficulty sleeping: not at all Do you think of yourself as: straight/heterosexual Gender Identity: male Exam Constitutional Vital Signs, click to edit/add: Last Vital Signs Temp 98.3 F 05/31/24 11:57 Pulse 85 05/31/24 14:20 Resp 19 05/31/24 14:20 BP 108/64 05/31/24 14:18 Pulse Ox 95 05/31/24 14:20 Course Vital Signs Vital signs: Vital Signs Temperature 98.3 F 05/31/24 11:57 Pulse Rate 88 05/31/24 11:57 Respiratory Rate 18 05/31/24 11:57 Blood Pressure 106/62 05/31/24 11:57 Pulse Oximetry 91 L 05/31/24 11:57 Temperature 98.3 F 05/31/24 11:57 Pulse Rate 85 05/31/24 14:20 Respiratory Rate 19 05/31/24 14:20 Blood Pressure 108/64 05/31/24 14:18 Pulse Oximetry 95 05/31/24 14:20 Medical Decision Making MDM Narrative Medical decision making narrative: 1243 I did speak to Delisa hospice nurse who is aware this patient as well. Updated her on testing will be done, and try to see what the decision plan would be versus hospital versus rehabilitation or hospice. She thought patient family would want to take him home for not finding any other acute findings. We will speak to Delisa and keep her updated as needed, she had no other input at this time. Patient fully catheter will be irrigated, because it appears the Dodge catheter may having lodged and clogged a couple times throughout the early childhood education specialist/last night. I had a 10-minute conversation at bedside with patient, son. We discussed all patient's lab work. Patient and son are aware of sodium of 129. Patient does feel slightly better after 500 cc of IV fluid. Patient's Dodge catheter has been draining well. Patient's had over 1500 cc of drainage of his Dodge catheter in the timeframe that he has been here for approximately 3 hours. Irrigation was shown to son at bedside by myself and by Bridger MCLAUGHLIN. Son feels comfortable irrigating Dodge catheter home if need be, supplies were sent home. Sodium 129, son is aware to use salt tablets for the next week, increase Gatorade, Powerade and continue increasing water. Options of admission, hospice additional care or going home were discussed with patient and son. Son would like to take him home. Son is doing a really good job with management of him at home along with his grandson of the patient and is extremely informed on patient's medical history. Son feels comfortable taking him home, no new medications. Patient will take his next dose of antibiotic tomorrow. 1500 I spoke to Delisa hospice nurse from [facility], she is aware of patient going home and will help continue care and perform additional measures as needed at home. Lab Data Labs: Lab Results 05/31/24 Range/Units 12:55 WBC 11.9 H (4.0-11.0) 10^3/uL RBC 4.28 L (4.70-6.10) 10^6/uL Hgb 12.2 L (14.0-18.0) g/dL Hct 37.8 L (42.0-54.0) % MCV 88.3 (80.0-94.0) fL MCH 28.5 (25.9-34.0) pg MCHC 32.3 (29.9-35.2) g/dL RDW 13.3 (11.0-15.0) % Plt Count 180 (150-450) 10^3/uL MPV 10.9 (9.5-13.5) fL Neut % (Auto) 82.1 H (43.0-75.0) % Lymph % (Auto) 10.1 L (20.5-60.0) % [place] % (Auto) 4.1 (1.7-12.0) % Eos % (Auto) 1.1 (0.9-7.0) % Baso % (Auto) 0.3 (0.2-2.0) % Neut # (Auto) 9.8 H (1.4-6.5) 10^3/uL Lymph # (Auto) 1.2 (1.2-3.8) 10^3/uL [place] # (Auto) 0.5 (0.3-0.8) 10^3/uL Eos # (Auto) 0.1 (0.0-0.7) 10^3/uL Baso # (Auto) 0.0 (0.0-0.1) 10^3/uL Abs Immat Gran (auto) 0.27 H (0.00-0.03) 10^3/uL Imm/Tot Granulo (auto) 2.3 H (0.0-0.5) % PT 10.4 (9.0-11.6) sec INR 0.98 VBG pH 7.377 (7.330-7.430) VBG pCO2 45.6 (40.0-52.0) mmHg Sodium 129 L (136-145) mmol/L Potassium 4.1 (3.5-5.1) mmol/L Chloride 95 L (98-107) mmol/L Carbon Dioxide 25.9 (21.0-32.0) mmol/L Anion Gap 12.2 BUN 22.0 H (7.0-18.0) mg/dL Creatinine 1.42 H (0.70-1.30) mg/dL Est GFR ( Amer) 57 L (>=60 mL/min/1.73m^2) Est GFR (Non-Af Amer) 47 L (>=60 mL/min/1.73m^2) BUN/Creatinine Ratio 15.5 Glucose 461 H (74-106) mg/dL Calcium 8.1 L (8.5-10.1) mg/dL Magnesium 1.5 L (1.8-2.4) mg/dL Total Bilirubin 0.3 (0.2-1.0) mg/dL AST 14 L (15-37) U/L ALT 34 (16-63) U/L Alkaline Phosphatase 95 (46-116) U/L Troponin I High Sens 6.4 (4.0-76.1) pg/mL Total Protein 6.0 L (6.4-8.2) g/dL Albumin 2.2 L (3.4-5.0) g/dL Globulin 3.8 g/dL Albumin/Globulin Ratio 0.6 ECG Data Attestation: I personally reviewed and interpreted this ECG as follows: (EKG interpretation. Normal sinus rhythm at 84 beats a minute. Normal axis deviation. Artifact noted. QTc of 441. Right bundle branch block noted.) Discharge Plan Discharge Chief Complaint: Weakness Clinical Impression: Hyponatremia, Generalized weakness, Mild dehydration, Chronic indwelling Dodge catheter, Malfunction of Oddge catheter Patient Disposition: Home, Self-Care Time of Disposition Decision: 15:14 Condition: Fair Prescriptions / Home Meds: No Action aspirin 81 mg capsule 81 mg PO DAILY diltiazem HCl 180 mg capsule,extended release 24hr 180 mg PO DAILY ferrous sulfate 325 mg (65 mg iron) tablet 325 mg PO .every other day famotidine 20 mg tablet 20 mg PO DAILY tamsulosin [Flomax] 0.4 mg capsule 0.4 mg PO DAILY fluticasone propionate [Flonase Allergy Relief] 50 mcg/actuation spray,suspension 2 spray intranasal DAILY PRN (Reason: nasal congestion) Rx Instructions: administer into each nostril magnesium aspart,citrate,oxide 400 mg magnesium capsule 400 mg PO BEDTIME psyllium husk [Metamucil] 0.4 gram capsule 0.4 g PO DAILY metoprolol tartrate 25 mg tablet 25 mg PO BID atorvastatin 20 mg tablet 20 mg PO DAILY baclofen 10 mg tablet 10 mg PO BID pregabalin [Lyrica] 100 mg capsule 100 mg PO TID 5 Days Qty: 15 0RF acetaminophen [Tylenol Extra Strength] 500 mg tablet 1,000 mg PO Q8H PRN (Reason: pain) potassium chloride [Klor-Con M20] 20 mEq tablet,ER particles/crystals 20 meq PO DAILY furosemide 20 mg tablet 40 mg PO DAILY Qty: 0 0RF losartan 100 mg tablet 50 mg PO DAILY Qty: 0 0RF Culturelle 10 billion cell capsule 1 cap PO DAILY multivitamin Tablet 1 tab PO BID glipizide 5 mg tablet 5 mg PO BID ondansetron HCl 8 mg tablet 8 mg PO Q8H PRN (Reason: nausea and vomiting) loperamide 2 mg tablet 2 mg PO Q6H PRN (Reason: loose stool) methenamine hippurate 1 gram tablet 1 g PO Q12H metoclopramide HCl 5 mg tablet 5 mg PO Q6H PRN (Reason: nausea and vomiting) metformin 500 mg tablet extended release 24 hr 500 mg PO DAILY sennosides-docusate sodium [Stimulant Laxative Plus] 8.6-50 mg tablet 1 tab-cap PO DAILY donepezil 10 mg tablet 10 mg PO DAILY cefuroxime axetil 250 mg tablet 250 mg PO DAILY 7 Days Qty: 7 0RF morphine 30 mg tablet extended release 15 mg PO Q12H Qty: 0 0RF guaifenesin [Mucinex] 600 mg tablet extended release 12hr 600 mg PO Q12H PRN (Reason: Cough) Qty: 0 0RF allopurinol 300 mg tablet 300 mg PO DAILY levothyroxine 50 mcg tablet 50 mcg PO DAILY cholecalciferol (vitamin D3) [Vitamin D3] 25 mcg (1,000 unit) capsule 50 mcg PO DAILY albuterol sulfate [ProAir HFA] 90 mcg/actuation HFA aerosol inhaler 1 inh inhalation Q4H PRN (Reason: shortness of breath or wheezing) nitroglycerin [Nitrostat] 0.4 mg tablet, sublingual 0.4 mg sublingual Q5M PRN (Reason: chest pain) Rx Instructions: do not exceed 3 doses per episode Print Language: Liberian Instructions: Dehydration (ED), Hyponatremia (ED), Dodge Catheter Placement and Care (ED), Weakness (ED), How to Change a Catheter Drainage Bag (DC) Additional Instructions: Use salt tablets daily for the next 5 to 7 days to help with increasing sodium levels. Use Gatorade, Powerade to help with electrolytes and help increase sodium levels and hydration as well. Also continue increasing water. You may use forceful irrigation of the Dodge catheter at home as shown at bedside if needed. If you have any other acute concerns, return back to the ER, or call Delisa from [facility] or anybody else in your [facility] team for assistance. Dr Hess spoke to Delisa, she is aware of the ER visit and aware the patient discharge back home and is aware of additional items that may need to be in place. Continue antibiotics, take your next dose tomorrow Referrals: Physician,Non-Staff, MD [Primary Care Provider] - 1 week
[2024-05-31] MEDS: 0.9 % SODIUM CHLORIDE 500 ML IV (13:03)
[2024-05-31 13:08] LABS: PCO2 VBG 45.6 mmHg (40.0-52.0); pH VBG 7.377 (7.330-7.430)
[2024-05-31 13:12] LABS: Basophils Percent Auto 0.3 % (0.2-2.0); Eosinophils Absolute Auto 0.1 10^3/uL (0.0-0.7); Eosinophils Percent Auto 1.1 % (0.9-7.0); Hematocrit 37.8 % (42.0-54.0); Hemoglobin 12.2 g/dL (14.0-18.0); Immature Granulocytes Abs Auto 0.27 10^3/uL (0.00-0.03); Immature Granulocytes Pct Auto 2.3 % (0.0-0.5); Lymphocytes Absolute Auto 1.2 10^3/uL (1.2-3.8); Lymphocytes Percent Auto 10.1 % (20.5-60.0); Mean Corpuscular HGB Conc 32.3 g/dL (29.9-35.2); Mean Corpuscular Hemoglobin 28.5 pg (25.9-34.0); Mean Corpuscular Volume 88.3 fL (80.0-94.0); Mean Platelet Volume 10.9 fL (9.5-13.5); Monocytes Absolute Auto 0.5 10^3/uL (0.3-0.8); Monocytes Percent Auto 4.1 % (1.7-12.0); Neutrophils Absolute Auto 9.8 10^3/uL (1.4-6.5); Neutrophils Percent Auto 82.1 % (43.0-75.0); Platelet Count 180 10^3/uL (150-450); Red Blood Count 4.28 10^6/uL (4.70-6.10); Red Cell Distribution Width 13.3 % (11.0-15.0); White Blood Count 11.9 10^3/uL (4.0-11.0)
[2024-05-31 13:18] LABS: INR 0.98; Prothrombin Time 10.4 sec (9.0-11.6)
[2024-05-31 13:29] LABS: Alanine Aminotransferase 34 U/L (16-63); Albumin Globulin Ratio 0.6; Albumin Level 2.2 g/dL (3.4-5.0); Alkaline Phosphatase 95 U/L (46-116); Anion Gap 12.2; Aspartate Amino Transferase 14 U/L (15-37); BUN Creatinine Ratio 15.5; Bilirubin Total 0.3 mg/dL (0.2-1.0); Calcium 8.1 mg/dL (8.5-10.1); Carbon Dioxide 25.9 mmol/L (21.0-32.0); Chloride 95 mmol/L (98-107); Estimated GFR (African America 57 (>=60 mL/min/1.73m^2); Estimated GFR (Non-African Ame 47 (>=60 mL/min/1.73m^2); Globulin 3.8 g/dL; Glucose 461 mg/dL (74-106); Magnesium 1.5 mg/dL (1.8-2.4); Potassium 4.1 mmol/L (3.5-5.1); Sodium 129 mmol/L (136-145); Troponin I High Sensitivity 6.4 pg/mL (4.0-76.1)
[2024-05-31] MEDS: MAGNESIUM OXIDE 400 MG TABLET 800 MG PO (14:38)
== END 2024-05-31 15:37 | disposition home or self-care (01) ==
PROVIDERS: Emergency Provider Emergency Medicine
DX: E87.1 Hypo-osmolality and hyponatremia (principal); R53.1 Weakness; E86.0 Dehydration; R41.0 Disorientation, unspecified; T83.098A Other mechanical complication of other urinary catheter, initial encounter; N20.0 Calculus of kidney; I48.91 Unspecified atrial fibrillation
CPT/HCPCS: 36415; 80053; 82800; 83735; 84484; 85025; 85610; 87086; 93005; 99285

== ENCOUNTER 2024-07-22 09:34 | Emergency (ER) | payer MEDICARE, SELFPAY ==
[2024-07-22 09:37] VITALS: BP 156/89; PULSE 105; TEMP 36.9; O2SAT 96; BMI 25.8
--- OUTSIDE RECORDS SUMMARY | 2024-07-22 09:55 | XMS_ITS | CCD ---
Author Organization [facility] Care Team Providers Care Air Tube Releaser Name Role Phone PHYSICIAN, DEFAULT Unavailable Unavailable PHYSICIAN, DEFAULT Unavailable Unavailable KIERA LOMBARDO Primary Care Physician Franky Veronica Primary Care Provider SHAIKH ELLIOTT Primary Care Physician AURELIO DURACHARLIE, TRISTIN Referring Unava ilable VERONICA, FRANKY A Primary Care Unavailable AURELIO DURAES, TRISTIN Referring Unava ilable VERONICA, FRANKY A Primary Care Unavailable AURELIO DURAESTRISTIN Attending Unava ilable SHAIKH ELLIOTT Referring Unavailable [...] ilable AURELIO DURAES, TRISTIN Attending Unava ilable GLENYS, FRANKY A Primary Care Unavailable SHAIKH Milena ELLIOTT Primary Care Unavailable URSULA ., DR JASSO Admitting Unavailable URSULA ., DR JASSO Attending Unavailable URSULA ., DR JASSO Consulting Unavailable DR BRISA SALAS Consulting Unavailable SHAIKH Milena ELLIOTT Primary Care [...] REMY Admitting Unavailable AKKINA, REMY Attending Unavailable ZIGALILEA, DR BRISA Oh Consulting Unavailable AKKINA, REMY [...] Admitting Unavailable MOREJON ., CALVIN Consulting Unavailable [facility], [facility] Primary Care Unavailable WINSTON ., DR PAULINE Ring Attending Unavailable WINSTON ., DR PAULINE Ring Admitting Unavailable [facility], [facility] Primary Care Unavailable WEST, DR LEEANN Valles Consulting Unavailable MOUKARBEL, DR WALLS Admitting Unavailable MOUKARBEL, DR WALLS Attending Unavailable MOUKARBEL, DR WALLS Consulting Unavailable [facility], [facility] Primary Care Unavailable AKKINA, REYM Admitting Unavailable AKKINA, REMY Attending Unavailable WINSTON ., DR PAULINE Ring Consulting Unavailable AKKINA, REMY Consulting Unavailable REQUEST, DR NONE LISTED Primary Care Unavaila ble NILL ., DR HYMAN Admitting Unavailable NILL ., DR HYMAN Attending Unavailable NILL ., DR HYMAN Consulting Unavailable [facility], [facility] Consulting Unavailable NEFCY, BRITTANIE Consulting Unavailable [facility], [facility] Primary Care Unavailable VERGARA ., DR JASSO Admitting Unavailable VERGARA ., DR JASSO Attending Unavailable VERGARA ., DR JASSO Consulting Unavailable [facility], [facility] Primary Care Unavailable WINSTON ., DR PAULINE Ring Consulting Unavailable WINSTON ., DR PAULINE Ring Admitting Unavailable WINSTON ., DR PAULINE Ring Attending Unavailable LAKSHMIPATHY ., ROGELIO Attending Sweta vailable LAKSHMIPATHY ., ROGELIO Admitting Sweta vailable [facility], [facility] Primary Care Unavailable [facility], [facility] Primary Care Unavailable NILL ., DR HYMAN Attending Unavailable NILL ., DR HYMAN Consulting Unavailable NILL ., DR HYMAN Admitting Unavailable AGUBOSIM, ELIZ Consulting Unavailable DORKOSKIE KANDICE Consulting Unavailable [facility], [facility] Primary Care Unavailable NILL ., DR HYMAN Attending Unavailable NILL ., DR HYMAN Admitting Unavailable [facility], [facility] Primary Care Unavailable VERGARA ., DR JASSO Admitting Unavailable VERGARA ., DR JASSO Attending Unavailable VERGARA ., DR JASSO Consulting Unavailable WINSTON ., DR PAULINE Ring Attending Unavailable WINSTON ., DR PAULINE Ring Consulting Unavailable [facility], [facility] Primary Care Unavailable WINSTON ., DR PAULINE Ring Admitting Unavailable MOREJON ., CALVIN Consulting Unavailable [facility], SHAIKH Milena Primary Care Unavailable CASTELLON ., DR COLTON Amador Consulting Unavailable CASTELLON ., DR COLTON Amador Procedure Practitioner Toñito CASTELLON ., DR COLTON Amador Admitting Unavailable RAVINDER ., DR COLTON Amador Attending Unavailable SHASHI, DR WALLS Consulting Unavailable NILL ., DR HYMAN Consulting Unavailable OLIVIA, KATE Consulting Unavailable CARMINA LOVE Consulting Unavailable MICHAEL SPIVEY Consulting Unavailable Giedraitis , Andrius Gilmore Attending Unavailable Giedraitis , Andrius Vyttonya Attending Unavailable Giedraitis MD, Andrius Vytautelizabeth Attending Unavailable Giedraitis , Andrius Vytautelizabeth Attending Unavailable Giedraitis , Andrius Vytautelizabeth Attending Unavailable Giedraitis , Andrius Vallesyttonya Attending Unavailable FAWPIETRO, Attending Unavailable FAWPIETRO, Attending Unavailable NITESH GANT Attending Unavailable FAWPIETRO, Referring Unavailable CARMINA CROOK Attending Unavailable FAWPIETRO, Referring Unavailable FASHAIKH BERMUDEZ Attending Unavailable CARMINA CROOK Attending Unavailable FASHAIKH BERMUDEZ Referring Unavailable FawShaikh mckeon MD Primary Care Provider ANDREA COLORADO Attending Unavailable NERISSA ORDONEZ Attending Unavailable NERISSA ORDONEZ Referring Unavailable NERISSA ORDONEZ Attending Unavailable NERISSA ORDONEZ Attending Unavailable COLTON GUADALUPE Primary Care Physician [phone] Olman APONTE Attending Unavailable Mekhi VERGARA Admitting Unavailable Mekhi VERGARA Attending Unavailable Armani Odom Attending Unavailable Olman APONTE Referring Unavailable Olman APONTE Attending Unavailable Mekhi VERGARA Admitting Unavailable Mekhi VERGARA Attending Unavailable Mekhi VERGARA Referring Unavailable Allergies Allergy Classification Reported Allergen(s) Allergy Type Date of Onset Reaction(s) Facility (12 sources) Acetaminophen / HYDROcodone; Translations: [acetaminophen-hydr ocodone] Drug Allergy Nausea and vomiting [facility] (18 sources) Acetaminophen / oxyCODONE; Translations: [acetaminophen-oxyc odone] Drug Allergy 06-03-20 16 Vomiting [facility] (20 sources) tiZANidine; Translations: [tizanidine] Drug Allergy 05-11-20 19 Mental Status Change, Vomiting, GI intolerance, Hallucinations [facility] (17 sources) traMADol; Translations: [tramadol] Drug Allergy 02-28-20 22 GI intolerance [facility] (6 sources) Acetaminophen / oxyCODONE; Translations: [OXYCODONE-ACETAMIN OPHEN] Drug Allergy 06-03-20 16 GI intolerance, Unknown [facility] (2 sources) Acetaminophen / HYDROcodone Drug Allergy 06-03-20 16 [facility] (2 sources) Acetaminophen / oxyCODONE Drug Allergy 06-03-20 16 [facility] (2 sources) cyclobenzaprine Drug Allergy 07-18-19 17 [facility] (1 source) tiZANidine Drug Allergy [facility] (2 sources) traMADol Drug Allergy 06-12-20 16 [facility] (4 sources) Acetaminophen / HYDROcodone Drug Allergy 06-18-20 23 GI intolerance [facility] Medications Current Medications Medication Drug Class(es) Dates Sig (Normalized) Sig (Original) [facility] oral capsule (4 sources) Start: 06-01-2019 take 1 capsule by mouth twice daily [facility] oral capsule cap(s), Oral, BID, Refill(s) 0, Prophylaxis Start Date: 06/01/19 Status: Ordered [id number] 200 actuat albuterol 0.09 mg/actuat metered dose inhaler (11 sources) beta2-Adrenergic Agonist Start: 10-15-2021 take 2 [...] 4 (four) hours if needed for wheezing Active ALBUTEROL SULFAT E (PROVENTIL INHALATION) Inhale as instructed. 0 Active Comment on above: Inhale as instructed . allopurinol 300 mg oral tablet (20 sources) Xanthine Oxidase Inhibitor Start: 06-01-20 take 1 tablet by mouth once daily allopurinol (Zyloprim) 300 MG tablet Indications: Gout, unspecified cause, unspecified chronicity, unspecified site TAKE 1 TABLET BY MOUTH DAILY 90 tablet 3 10/27/2023 Active Comment on above: Take 300 mg by mouth once daily. ALPRAZolam 0.5 mg oral tablet (6 sources) Benzodiazepine Start: 06-18-20 alprazolam 0.5 mg [...] nce daily. aspirin 81 mg oral capsule (20 sources) Platelet Aggregation Inhibitor, Nonsteroidal Anti-inflammatory Drug [...] 81 mg by mouth in the morning. Active Comment on above: Take 81 mg by mouth once daily. atorvastatin 20 mg oral tablet (20 sources) HMG-CoA Reductase Inhibitor Start: 2 take 1 tablet by mouth at bedtime atorvastatin (Lipitor) 20 MG tablet Indications: Hyperlipidemia, unspecified hyperlipidemia type (CMS/HCC) TAKE 1 TABLET BY MOUTH AT BEDTIME 90 tablet 3 11/17/2023 Active Comment on above: Take 20 mg by mouth once daily. baclofen 10 mg oral tablet (20 sources) gamma-Aminobutyric Acid-ergic Agonist Start: 2 take 1 tablet by mouth at bedtime baclofen 10 mg Tab 10 mg = 1 tab(s), Oral, Bedtime, Refills(s) 0 Start Date: 10/15/21 Status: Ordered take 1 tablet by mouth once heidi y baclofen (Lioresal) 10 MG tablet Take 10 mg by mouth 1 (one) time each day Active Comment on above: Take 10 mg by mouth three times daily. Centrum Silver oral tablet (11 sources) Start: 9 take 1 tablet by mouth once daily Centrum Silver oral tablet 1 tab(s), Oral, Daily, Refill(s) 0, Prophylaxis Start Date: 06/01/19 Status: Ordered cetirizine hydrochloride 10 mg oral capsule (11 sources) Histamine-1 Receptor Antagonist Start: 2 take 1 capsule by mouth once daily as needed cetirizine 10 mg oral capsule 10 mg = 1 cap(s), Oral, Daily, PRN for allergy symptoms, Refills(s) 0 Start Date: 04/22/22 Status: Ordered take 1 tablet by mouth in the mo rning cetirizine (ZyrTEC) 10 MG tablet Take 10 mg by mouth in the morning. Active cholecalciferol 0.25 mg oral capsule (4 sources) Vitamin D take 1 capsule by mouth in the morning cholecalciferol (Vitamin D-3) 250 MCG (39725 UT) capsule Take 1,000 Units by mouth in the morning. Active clopidogrel 75 mg oral tablet (5 sources) P2Y12 Platelet Inhibitor Start: 023 clopidogrel 75 mg Tab Refills(s) 0 Start Date: 12/23/22 Status: Ordered dapagliflozin 5 mg oral tablet (13 sources) Sodium-Glucose Cotransporter 2 Inhibitor Start: 022 [...] with breakfast. diazePAM 2 mg oral tablet (2 sources) Benzodiazepine Start: 07-28-19 24 End: 08-27-19 24 take 1 tablet by mouth at bedtime diazePAM (Valium) 2 MG tablet Indications: Chronic bilateral low back pain with bilateral sciatica Take 1 tablet (2 mg) by mouth at bedtime 30 tablet 07/28/2023 Active 24 hr dilTIAZem hydrochloride 180 mg extended release oral capsule (17 sources) Calcium Channel Rain Start: 04-22-20 diltiazem CD 180 mg/24 hours Cap-ER 180 mg = 1 cap(s), Oral, Daily, Refills(s) 0 Start Date: 04/22/22 Status: Ordered Comment on above: Take 180 mg by mouth once daily. donepezil hydrochloride 10 mg oral tablet (20 sources) Start: 06-01-20 take 1 tablet by mouth once daily donepezil (Aricept) 10 MG tablet Indications: Cognitive impairment TAKE 1 TABLET BY MOUTH DAILY 90 tablet 3 11/17/2023 Active Comment on above: Take 10 mg [...] above: three times daily. dorzolamide / Timolol (15 sources) Carbonic Anhydrase Inhibitor, beta-Adrenergic Rain Start: 07-10-2021 take 1 drop(s) into the eye(s) twice daily dorzolamide-timolol ophthalmic 1 drop, Eye-Both, BID, Refill(s) 0, Glaucoma, Other (see comment) Start Date: 07/10/21 Status: Ordered take 1 drop(s) into the eye(s) in the morning dorzolamide-timolol (Cosopt) 2-0.5 % oph thalmic solution Administer 1 drop into both eyes in the morning and 1 drop before bedtime. Active doxycycline hyclate 100 mg oral tablet (1 source) Tetracycline-class Drug Start: 06-20-2023 End: 07-04-2023 take 1 tablet by mouth twice daily doxycycline hyclate 100 mg Tab 100 mg = 1 tab(s), Oral, BID, X 2 week(s), # 28 tab(s), Refills(s) 0, Pharmacy: [id number], 177, cm, 06/20/23 10:48:00 EST, Height/Length Dosing, 81.9, kg, 06/20/23 10:48:00 EST, Weight Dosing Start Date: 06/20/23 Stop Date: 07/04/23 Status: Ordered escitalopram 10 mg oral tablet (6 sources) Serotonin Reuptake Inhibitor Start: 07-03-2023 End: 10-01-2023 take 1 tablet by mouth in the morning escitalopram (Lexapro) 10 MG tablet Indications: 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 90 tablet 07/03/2023 Active Start: 06-20-2023 escitalopram 5 mg oral tablet Refills(s) 0 Start Date: 06/20/23 Status: Ordered famotidine 20 mg oral tablet (20 sources) Histamine-2 Receptor Antagonist Start: 07-10-2021 take [...] sulfate 325 mg delayed release oral tablet (17 sources) Start: 04-22-2022 take 1 tablet by mouth once daily ferrous sulfate 325 mg oral enteric coated tablet 325 mg = 1 tab(s), Oral, Daily, Refills(s) 0 Start Date: 04/22/22 Status: Ordered take 1 tablet by mouth at [place] ferrous sulfate 325 (65 Fe) MG tablet Take 325 mg by mouth in the morning. Take with meals. Active Comment on above: Take 325 mg [...] once daily. furosemide 40 mg oral tablet (19 sources) Loop Diuretic Start: 2021 End: 2023 take 1 tablet by mouth once daily Lasix 40 mg Tab 40 mg = 1 tab(s), Oral, Daily, Refills(s) 0 Start Date: 04/22/22 Status: Ordered Comment on above: Take 40 mg by mouth once daily. gabapentin 100 mg oral capsule (1 source) Anti-epileptic Agent Start: 2023 gabapentin 100 mg Cap 42 cap(s), 0 Refill(s), Refills(s) 0 Start Date: 06/29/24 Status: Ordered gemfibrozil 600 mg oral tablet (3 sources) Peroxisome Proliferator Receptor alpha Agonist Start: 2021 take 1 tablet by mouth twice daily gemfibrozil 600 mg Tab 600 mg = 1 tab(s), Oral, BID, Refills(s) 0 Start Date: 10/15/21 Status: Ordered glipiZIDE 5 mg oral tablet (4 sources) Sulfonylurea Start: 2022 glipiZIDE 5 mg [...] Ordered Inulin / Lactobacillus rhamn osus GG (11 sources) [facility] Start Date: 04/22/22 [...] Ordered levothyroxine sodium 0.05 mg oral tablet (17 sources) l-Thyroxine Start: 09-22-2023 take 1 tablet by mouth once daily levothyroxine (Synthroid, Levoxyl) 50 MCG tablet Indications: Hypothyroidism, unspecified type (CMS/HCC) Take 1 tablet (50 mcg) by mouth Daily 90 tablet 1 09/22/2023 Active Start: 10-15-2021 take 1 tablet by ravi th once daily levothyroxine 50 mcg (0.05 mg) [...] morning. losartan potassium 100 mg oral tablet (17 sources) Angiotensin 2 Receptor Rain Start: take 1 tablet by mouth once daily losartan (Cozaar) 100 MG tablet Indications: Primary hypertension (CMS/HCC) TAKE 1 TABLET BY MOUTH DAILY 90 tablet 3 11/17/2023 Active Comment on above: Take 100 mg by mouth once daily. magnesium oxide 400 mg oral tablet (17 sources) Start: 2 take 1 tablet by mouth [...] daily. metoprolol tartrate 25 mg oral tablet (20 sources) beta-Adrenergic Rain Start: 06-01-2019 take 1 tablet by mouth twice daily metoprolol tartrate (Lopressor) 25 MG tablet Indications: Paroxysmal atrial fibrillation (CMS/HCC) , Chronic heart failure with preserved ejection fraction (CMS/HCC) TAKE 1 TABLET BY MOUTH TWICE DAILY 180 tablet 3 10/27/2023 Active metoprolol tartr ate, short acting, (LOPRESSOR) 50 mg tablet Take 25 mg by mouth twice daily. 0 Active Comment on above: Take 25 mg by mouth twice daily. Multiple Vitamin (MULTIVITAMIN ADULT PO) (4 sources) Multiple Vitamin (MULTIVITAMIN ADULT PO) Take by mouth Active Multiple Vitamin (MULTIVITAMIN ADULT PO) Take by mouth 0 Active Nitro 0.4 mg Tab (10 sources) Start: 07-10-2021 Nitro 0.4 mg T ab = 1 tab(s), SubLingual, q5min, PRN Chest pain, # 25 tab(s), Refills(s) 3 Start Date: 07/10/21 Status: Ordered nitroglycerin 0.4 mg/actuat mucosal spray (11 sources) Nitrate Vasodilator Start: 07-10-2021 Nitro 0.4 mg Tab = 1 tab(s), SubLingual, q5min, PRN Chest pain, # 25 tab(s), Refills(s) 3 Start Date: 07/10/21 Status: Ordered nitroglycerin (N itrostat) 0.[address] 0.4 mg under the tongue every 5 (five) minutes if needed for chest pain Active Comment on above: Dissolve 0.4 mg unde r the tongue every 5 minutes as needed. ondansetron 4 mg oral tablet (10 sources) Serotonin-3 Receptor Antagonist Start: 07-10-2021 take 4 mg by mouth every eight hours as needed for nausea Zofran 4 mg, Oral, q8hr, PRN as needed for nausea/vomiting, Refills(s) 0 Start Date: 07/10/21 Status: Ordered take 1 tablet by ravi every eight hours as needed ondansetron orally disintegrating (ZOFRA N ODT) 4 mg disintegrating tablet Take 4 mg by mouth every 8 hours as needed. 0 Active Comment on above: Take 4 mg by mouth e very 8 hours as needed. oxybutynin chloride 5 mg oral tablet (1 source) Cholinergic Muscarinic Antagonist Start: 06-29-20 take 1 tablet by mouth twice daily as needed oxybutynin 5 mg Tab 5 mg = 1 tab(s), Oral, BID, PRN for urinary discomfort, # 60 tab(s), Refills(s) 11, Pharmacy: [id number], 177, cm, 06/29/24 10:56:00 EST, Height/Length Dosing, 81.6, kg, 06/29/24 10:56:00 EST, Weight Dosing Start Date: 06/29/24 Status: Ordered oxyCODONE hydrochloride 5 mg oral tablet (2 sources) Opioid Agonist Start: 08-04-19 End: 09-20-19 take 2 tablets by mouth every six hours for pain oxyCODONE (Roxicodone) 5 MG immediate release tablet Indications: Chronic bilateral low back pain with bilateral sciatica Take 2 tablets (10 mg) by mouth every 6 (six) hours if needed for severe pain 240 tablet 0 08/21/2023 09/20/2023 Active pantoprazole 40 mg extended release oral tablet (6 sources) Proton Pump Inhibitor Start: 07-10-19 take 1 tablet by mouth once daily pantoprazole 40 mg Oral EC Tab 40 mg = 1 tab(s), Oral, Daily, # 30 tab(s), Refills(s) 0, Pharmacy: [facility], 177.8, cm, 07/10/21 15:02:00 EST, Height/Length Dosing, 88.6, kg, 07/10/21 15:02:00 EST, Weight Dosing Start Date: 07/10/21 Status: Ordered Start: 07-10-2021 take 1 tablet by ravi once daily pantoprazole 40 mg Oral EC Tab 40 mg = 1 tab(s), Oral, Daily, # 30 tab(s), Refills(s) 0, Pharmacy: [facility], 177.8, cm, 07/10/21 15:02:00 EST, Height/Length Dosing, 88.6, kg, 07/10/21 15:02:00 EST, Weight Dosing Start Date: 07/10/21 Status: Ordered pregabalin 75 mg oral capsule (16 sources) Start: 04-22-2022 take 1 capsule by mouth twice daily pregabalin 75 mg Cap 75 mg = 1 cap(s), Oral, BID, Refills(s) 0 Start Date: 04/22/22 Status: Ordered take 1 capsule by mo [facility] three times daily pregabalin (LYRICA) 50 mg capsule Take 5 0 mg by mouth three times daily. 0 Active Comment on above: Take 50 mg by mouth three times daily. ProAir HFA 90 mcg/inh inhalation aerosol (9 sources) Start: 2 take 2 puff(s) by inhalation every six hours as needed for wheezing ProAir HFA 90 mcg/inh inhalation aerosol 2 puff(s), Inhalation, q6hr as needed for wheezing, Refill(s) 0 Start Date: 10/15/21 Status: Ordered Psyllium (15 sources) Start: 9 Metamucil Oral, Refills(s) 0, Constipation Start Date: 06/01/19 Status: Ordered take 6 capsules by mouth in the morning psyllium (Metamucil) 0.36 g capsule Take 6 capsules by mouth in the morning. Active take 6 capsules by mouth in the [...] Ordered tamsulosin hydrochloride 0.4 mg oral capsule (13 sources) alpha-Adrenergic Rain Start: 02-18-2022 take 1 capsule by mouth once daily Flomax 0.4 mg Cap 0.4 mg = 1 cap(s), Oral, Daily, Refills(s) 0 Start Date: 04/22/22 Status: Ordered take 1 capsule by mo [facility] every twenty-four hours in the morning tamsulosin (Flomax) 0.4 MG 24 hr capsule Take 0.4 mg by mouth in the morning. Active Comment on above: Take 0.4 mg by mouth once daily. Vitamin D 1000 intl units (25 mcg) Tab (7 sources) Start: 04-22-2022 take 1 tablet by [...] Comment on above: Take 1 tablet by [facility] every 4 hours as needed. 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 ciprofloxacin 500 mg oral tablet (8 sources) Quinolone Antimicrobial Start: 06-20-20 Cipro 500 mg Tab 500 mg = 1 tab(s), Oral, As Directed, Pt to take 1 tab the day before procedure and the 2nd tab the day of procedure once completed., # 2 tab(s), Refills(s) 0, Pharmacy: [facility] #[id number], 177, cm, 06/20/23 10:48:00 EST, Height/Length Dosing, 81.9, kg, 06/20/23 10:48:00 EST, Weight Dosing Start Date: 06/20/23 Status: Ordered Start: 07-26-2022 take 1 tablet by ravi th once daily Cipro 250 mg Tab 250 mg = 1 tab(s), Oral, Daily, Take 1 tablet the day before the procedure and 1 tablet after the procedure, # 2 tab(s), Refills(s) 0, Pharmacy: [facility] #[id number], 177.8, cm, 04/22/22 15:44:00 EDT, Height/Length Dosing, 85.4, kg, 04/22/22 15:44:00 EDT,... Start Date: 07/26/22 Status: Ordered Start: 07-10-2021 take 1 tablet by ravi th once daily Cipro 500 mg Tab 500 mg = 1 tab(s), Oral, Daily, Take 1 tablet 07/16/21 and 1 tablet after the procedure 07/17/21, # 2 tab(s), Refills(s) 0, Pharmacy: [facility] [id number] [address] [facility], 177.8, cm, 07/24/20 9:23:00 EST, Height/Length [...] Documented Da te Episodic/Chronic Acquired foot deformities (7 sources) Foot-drop 04-22-2022 Episodic Acute cerebrovascular disease (15 sources) Intracranial hemorrhage; Translations: [Nontraumatic intracranial hemorrhage, unspecified] Onset: 05-10-2022 10-15-2021 Chronic Anxiety disorders (4 sources) 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; Translations: [Panic disorder [episodic paroxysmal anxiety]] Onset: 06-18-2023 06-18-2023 Chronic Calculus of urinary tract (20 sources) Kidney stone; Translations: [Calculus of kidney] Onset: 02-18-2022 Episodic Cancer of bladder (15 sources) Malignant neoplasm of lateral wall of urinary bladder; Translations: [Malignant neoplasm of lateral wall of bladder] Onset: 07-28-2023 06-01-2019 Chronic Cancer of bladder (14 sources) History of malignant neoplasm of bladder; Translations: [Personal history of malignant neoplasm of bladder] Onset: 04-22-2022 Episodic Cancer of prostate (20 sources) History of malignant neoplasm of prostate; Translations: [Personal history of malignant neoplasm of prostate] Onset: 08-01-2015 06-01-2019 Episodic Cancer; other and unspecified primary (15 sources) H/O: malignant neoplasm; Translations: [Personal history of malignant neoplasm of bladder] Onset: 07-28-2023 06-01-2019 Episodic Cardiac dysrhythmias (20 sources) Atrial fibrillation; Translations: [Paroxysmal atrial fibrillation] Onset: 02-02-2022 04-22-2022 Chronic Chronic kidney disease (20 sources) Anemia in chronic kidney disease; Translations: [Chronic kidney disease] Onset: 03-06-2020 10-15-2021 Chronic Chronic obstructive pulmonary disease and bronchiectasis (20 sources) Chronic obstructive lung disease; Translations: [Chronic obstructive pulmonary disease, unspecified] Onset: 03-06-2020 10-15-2021 Chronic Conduction disorders (1 source) Unspecified right bundle-branch block; Translations: [UNSPECIFIED RT BUNDLE-BRANCH BLOCK] Onset: 02-12-2022 Chronic Congestive heart failure; nonhypertensive (7 sources) Acute combined systolic (congestive) and diastolic (congestive) heart failure; Translations: [Chronic heart failure co-occurrent with normal ejection fraction] Onset: 02-12-2022 08-21-2023 Chronic Coronary atherosclerosis and other heart disease (20 sources) Coronary arteriosclerosis; Translations: [Atherosclerotic heart disease of [place] coronary artery without angina pectoris] Onset: 08-13-2017 [...] dementia, and amnestic and other cognitive disorders (20 sources) Dementia; Translations: [Dementia associated with another disease] Onset: 03-01-2020 10-15-2021 Chronic Diabetes mellitus with complications (5 sources) Type 2 diabetes mellitus with diabetic chronic kidney disease; Translations: [Type 2 diabetes mellitus] Onset: 03-01-2020 07-28-2023 Chronic Diabetes mellitus without complication (20 sources) Diabetes mellitus; Translations: [Type 2 diabetes mellitus without complication] Onset: 11-01-2021 Resolved: 06-18-2023 10-11-2021 Chronic Disorders of lipid metabolism (20 sources) Hyperlipidemia; Translations: [Hypertriglyceridemia ] Onset: 11-27-2021 10-11-2021 Chronic Diverticulosis and diverticulitis (12 sources) Diverticula of intestine; Translations: [Diverticulosis of intestine, part unspecified, without perforation or abscess without bleeding] Onset: 10-09-2021 Chronic Esophageal disorders (20 sources) Obstruction of esophagus; Translations: [Esophageal obstruction] Onset: 10-09-2021 Chronic Esophageal disorders (1 source) Esophageal disorders; Translations: [Gastroesophageal reflux disease with esophagitis, unspecified whether hemorrhage] Onset: 05-10-2022 Essential hypertension (20 sources) Hypertensive disorder; Translations: [Essential hypertension] Onset: 08-13-2017 10-11-2021 Chronic Genitourinary symptoms and ill-defined conditions (20 sources) Urge incontinence of urine; Translations: [Unspecified urinary incontinence] Onset: 11-27-2021 06-01-2019 Chronic Genitourinary symptoms and ill-defined conditions (20 sources) Dysuria; Translations: [Foul smelling urine] Onset: 11-27-2021 06-01-2019 Episodic Gout and other crystal arthropathies (20 sources) Gout; Translations: [Gout, unspecified] Onset: 02-12-2022 [...] Chronic Inflammatory conditions of male genital organs (11 sources) Prostatitis; Translations: [Inflammatory disease of prostate, unspecified] Onset: 04-22-2022 Episodic Late effects of cerebrovascular disease (1 source) Dysarthria following cerebral infarction; Translations: [DYSARTHRIA FOLLOW CEREBRAL INFARCT] Onset: 11-27-2021 Chronic Nutritional deficiencies (1 source) Vitamin D deficiency, unspecified; Translations: [VITAMIN D DEFICIENCY UNSPECIFIED] Onset: 11-27-2021 Chronic Other aftercare (1 source) Long-term current use of drug therapy; Translations: [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 of antithrombotics/antip latelets] Onset: 06-29-2024 Episodic Other and unspecified benign neoplasm (12 sources) Polyp of colon; Translations: [Polyp of colon] Onset: 10-09-2021 Episodic Other and unspecified benign neoplasm (15 sources) History of polyp of colon; Translations: [Personal history of colonic polyps] Onset: 07-28-2023 08-21-2021 Episodic Other circulatory disease (6 sources) Presence of other cardiac implants and grafts; Translations: [Other specified cardiac device in situ] Onset: 10-18-2022 06-18-2023 Chronic Other circulatory disease (11 sources) History of cerebrovascular accident; Translations: [Personal history of transient ischemic attack (TIA), and cerebral infarction without residual deficits] Onset: 06-18-2023 04-22-2022 Episodic Other connective tissue disease (1 source) Other muscle spasm; Translations: [OTHER MUSCLE SPASM] Onset: 10-28-2022 Episodic Other diseases of kidney and ureters (1 source) Urinary tract obstruction; Translations: [Hydronephrosis with renal and ureteral calculous obstruction] Onset: 06-29-2024 Episodic Other ear and sense organ disorders (7 sources) Hearing loss 04-22-2022 Chronic Other gastrointestinal disorders (12 sources) Dysphagia; Translations: [Dysphagia, unspecified] Onset: 10-09-2021 Episodic Other nervous system disorders (2 sources) Other chronic pain; Translations: [OTHER CHRONIC PAIN] Onset: 08-01-2022 Chronic Other nervous system disorders (1 source) Polyneuropathy, unspecified; Translations: [POLYNEUROPATHY UNSPECIFIED] Onset: 02-18-2022 Chronic Other nervous system disorders (4 sources) Difficulty walking; Translations: [Difficulty in walking, not elsewhere classified] Onset: 07-28-2023 07-28-2023 Chronic Other nutritional; endocrine; and metabolic disorders (1 source) Hypocalcemia; Translations: [HYPOCALCEMIA] Onset: 02-12-2022 Chronic Other nutritional; endocrine; and metabolic disorders (4 sources) Hypercalcemia; Translations: [Hypercalcemia] Onset: 07-28-2023 07-28-2023 Chronic Other nutritional; endocrine; and metabolic disorders (10 sources) Body mass index 25-29 - overweight 10-16-2021 Episodic Other screening for suspected conditions (not mental disorders or infectious disease) (8 sources) Raised prostate specific antigen; Translations: [Rising PSA 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] Onset: 12-23-2022 Episodic Parkinson`s disease (11 sources) Parkinson's disease; Translations: [Parkinson's disease] Onset: [...] degeneration, unspecified cervical region] Onset: 12-06-2021 Chronic Thyroid disorders (19 sources) Hypothyroidism; Translations: [Hypothyroidism, unspecified] Onset: 07-10-2021 10-15-2021 Chronic Unclassified (11 sources) Drug therapy finding 06-01-2019 Unclassified (10 sources) Recurrent irreducible right inguinal hernia 10-16-2021 Unclassified (4 sources) LOW BACK PAIN, UNSPECIFIED; Translations: [LOW BACK PAIN, UNSPECIFIED] Onset: 08-01-2022 Unclassified (1 source) CHRN KIDNEY DISEASE STG 3 UNSP; Translations: [CHRN KIDNEY DISEASE STG 3 UNSP] Onset: 02-12-2022 Urinary tract infections (11 sources) Recurrent urinary tract infection 06-01-2019 Episodic Past or Other Problems Problem Classification Problem Date Documented Da te Episodic/Chronic Abdominal hernia (8 sources) Recurrent inguinal hernia with obstruction; Translations: [Unilateral inguinal hernia, with obstruction, without gangrene, recurrent] Onset: 10-16-2021 Episodic Acute and unspecified renal failure (1 source) Acute kidney failure, unspecified; Translations: [ACUTE KIDNEY FAILURE UNSPECIFIED] Onset: 02-12-2022 Episodic Administrative/social admission (4 sources) Patient encounter status; Translations: [Other specified counseling] Onset: 07-28-2023 07-28-2023 Episodic Deficiency and other anemia (3 sources) Iron deficiency anemia; Translations: [Iron deficiency anemia, unspecified] Onset: 02-12-2022 05-10-2022 Episodic Deficiency and other anemia (1 source) Iron deficiency anemia, unspecified; Translations: [IRON DEFICIENCY ANEMIA UNSPECIFIED] Onset: 02-12-2022 Episodic Deficiency and other anemia (5 sources) Anemia, unspecified; Translations: [ANEMIA UNSPECIFIED] Onset: 11-09-2021 Episodic Mood disorders (4 sources) Mood disorders Onset: 07-03-2023 07-03-2023 Other aftercare (1 source) 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; Translations: [OTH SHELTER CURRENT DRUG THERAPY] Onset: 02-12-2022 Episodic Other aftercare (1 source) 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 of aspirin; Translations: [SHELTER CURRENT USE OF ASPIRIN] Onset: 02-12-2022 Episodic Other aftercare (1 source) 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 of anticoagulants; Translations: [SHELTER CURRNT USE ANTICOAGULANTS] Onset: 11-27-2021 Episodic Other aftercare (2 sources) long-term (current) use of antibiotics; Translations: [long-term (current) use of antibiotics] Onset: 10-18-2022 Episodic Other connective tissue disease (1 source) Sarcopenia; Translations: [SARCOPENIA] Onset: 07-11-2022 Episodic Other diseases of veins and lymphatics (2 sources) Venous insufficiency of leg; Translations: [Venous insufficiency (chronic) (peripheral)] 08-21-2023 Episodic Other injuries and conditions due to external causes (4 sources) History of fall; Translations: [History of falling] Onset: 03-06-2020 07-28-2023 Episodic Phlebitis; thrombophlebitis and thromboembolism (10 sources) H/O: Deep vein thrombosis; Translations: [Personal history of other venous thrombosis and embolism] Onset: 02-12-2022 Episodic Residual codes; unclassified (1 source) Procedure and treatment not carried out for other reasons; Translations: [PROC AND TX NOT CARRIED OUT OTH REASONS] Onset: 04-18-2022 Episodic Spondylosis; intervertebral disc disorders; other back problems (20 sources) Cervical radiculopathy; Translations: [Radiculopathy, cervical region] Onset: 02-14-2022 Episodic Unclassified (1 source) LOW BACK PAIN, UNSPECIFIED; Translations: [LOW BACK PAIN, UNSPECIFIED] Onset: 10-24-2022 Results Test Name Value Interpretation Reference Range Facility Ambulatory Visit Summaryon 1 08-30-2023 Ambulatory Visit Summary Ambulatory Visit Summary BEN GUADALUPE :1935 Visit Date:06/29/2024 Ambulatory Visit Instructions Your Diagnosis Rising PSA 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 Urinary retention Prostatitis BPH with urinary obstruction Urge incontinence History of bladder cancer Anticoagulated Your Care Team Attending Physician - HARPAL WORKMAN, Olman Richardson Primary Care Physician - COLTON GUADALUPE CNP This Is Your Medications List Contact prescribing physician if questions or concerns albuterol (ProAir HFA 90 mcg/inh inhalation aerosol) [...] coated tablet) furosemide (Lasix 40 mg Tab) gabapentin (gabapentin 100 mg Cap) glipiZIDE (glipiZIDE 5 mg Tab) lactobacillus rhamnosus GG ([facility]) levothyroxine (levothyroxine 50 mcg (0.05 mg) Tab) losartan (losartan 100 mg Tab) magnesium oxide (magnesium oxide 400 mg Tab) metoprolol (Metoprolol tartrate 25 mg Tab) multivitamin with minerals (Centrum Silver oral tablet) nitroglycerin (Nitro 0.4 mg Tab) psyllium (Metamucil) Procedures Performed Cystoscopy (08/05/2022), Repair of right [...] Parathyroidectomy, Radiofrequency ablation, Tonsillectomy and adenoidectomy, Watchman. Medications What How Much When Instructions Unchanged albuterol (ProAir HFA 90 mcg/ inh [...] prescribing physician if questions or concerns Unchanged clopidogrel (clopidogrel 75 mg Tab) Contact prescribing physician if questions or concerns Unchanged dapagliflozin (Farxiga 5 mg oral tablet) 1 Tablets By Mouth Every day Contact prescribing physician if questions or concerns Unchanged diltiazem (diltiazem CD 180 mg/ 24 hours Cap-ER) 1 Capsules By Mouth Every day Contact prescribing physician if questions or concerns Unchanged donepezil (Aricept 10 mg Tab) 1 Tablets By Mouth Every day alzheimers Contact prescribing physician if questions or concerns Unchanged dorzolamide-timolol ophthalmic 1 drop Both eyes 2 times a day Glaucoma Contact prescribing physician if questions or concerns Unchanged escitalopram (escitalopram 5 mg oral tablet) Contact prescribing physician if questions or concerns Unchanged famotidine (famotidine 20 mg Tab) 1 Tablets By Mouth Every day Contact prescribing physician if questions or concerns Unchanged ferrous sulfate (ferrous sulfate 325 mg oral enteric coated tablet) 1 Tablets By Mouth Every day Contact prescribing physician if questions or concerns (more content not included)... Normal [facility] Urology Office/Clinic Noteon 06-29-2024 Urology Office/Clinic Note Urology Office/Clinic Note Chief Complaint 1 mth [facility] f/u HPI Staff Hospital follow up [facility] 05/26/24 due to bladder stone Pt is a PRW pt last seen on 06/20/23 DX: Hx of Bladder Cancer, BPH, Kidney Stones & Urge Incontinence. S/P Brachytherapy 2002 & S/P Cysto 08/06/22 (bt check) Reminder in chart for next Cysto to be done 07/2023 NEG FISH/Cytology 08/06/22 *Tamsulosin 0.4mg QD therapy. pt states he is still severe pain, bleeding bad, blood clot in dodge bag. changed dodge bag on Friday by Home health and bled for 2 days. . Urine is going around penis instead of through the tube. pt would like to discuss stent removal History of Present Illness Tests reviewed: UA I have reviewed the previous health record information and history for this patient from Dr. Aponte. I have reviewed and verified the staff HPI to be accurate for this encounter. Review of Systems PHQ Score Initial [...] See HPI. Physical Exam Vitals & Measurements HT: 70 in HT: 177 cm WT: 81.6 kg WT: 179.897 lb BMI: 26.05 General Appearance: alert, no distress, well nourished, well developed male. Assessment/Plan 1. Ureteral stone with hydronephrosis (N13.2: Hydronephrosis with renal and ureteral calculous obstruction) Pt presented to [facility] 05/22/[address] AP wo con 05/22/24 [facility] - prominent left hydro and perirenal stranding/edema secondary to an obstructing 7 mm stone within the proximal ureter. Dodge catheter within bladder. There is also an irregular shaped heterogeneous partially hyperdense structure within the bladder, 3.8 cm. Within the structure several foci of free air. Urology consulted due to obstructing stone and septic shock. S/p cysto and L stent placement 05/26/24. -Will schedule cysto, L URS, L laser litho, possible stent exchange or removal. The procedural risks, benefits, details, and treatment alternatives have been discussed with the patient. These include bleeding, infection, inability to break or retrieve all of the stone, injury to the ureter (the tube which connects the kidney to the bladder), injury to the kidney scarring of the ureter, and need for repeat procedures, among others. Full informed consent has been obtained. Will order General anesthesia. 2. Bladder stone (N21.0: Calculus in bladder) CT AP wo con 05/22/24 [facility] - Dodge catheter within bladder. There is also an irregular shaped heterogeneous partially hyperdense structure within the bladder, 3.8 cm. Within the structure several foci of free air. Discussed treating bladder stone at the same time as ureteral stone. Pt understands this might not be able to be done but will attempt. -Will schedule laser of bladder stone. The procedure risks, benefits, details, and treatment alternatives have been discussed. These include bleeding, infection, need for indwelling catheter after the procedure, possible need to remove some prostate tissue with coagulation of bleeding points, as well as the need for additional procedures, among others. Full informed consent has been obtained. Order General anesthesia. 3. Rising PSA following treatment for malignant neoplasm [...] hold off on Lupron. S/p brachytherapy 2002. -Not addressed today 4. Urinary retention (R33.9: Retention of urine, unspecified) Long-term dodge placement. Script sent for Oxybutynin 5mg bid. Monitor for SE. Dodge changed last week. 5. Prostatitis (N41.9: Inflammatory disease of prostate, unspecified) Not addressed today. 6. BPH with urinary obstruction (N40.1: Benign prostatic hyperplasia with lower urinary tract symptoms) Not addressed today. 7. History of bladder cancer (Z85.51: Personal history of malignant neoplasm of bladder) Cysto 08/06/21 - Unobstructed. Moderate trabeculation. No tumors. Neg FISH/cytol. S/p cysto and L stent placement 05/26/24. See #1. 8. 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 Elevated risk for periop complications. Overall I had an extensive discussion by video visit with the patient and his family. We went over the fact that he had septic shock and an obstructing ureteral stone. He does carry m (more content not included)... Normal [facility] Comment on above: Result Comment: Elec tronically Signed By: Olman APONTE MD\.br\Date and Time Signed: 06/29/24 11:10 EST\.br\Electronically Co-Signed By: Arminda Lima\.br\Date and Time Co-Signed: 06/29/24 11:07 EST Main OR Intraoperative Recor don 01-06-2024 Main OR Intraoperative Record Main OR Intraoperative Record IntraOp Document Type FTURO Summary Primary Physician: Mekhi VERGARA MD Finalized Date/Time: 01/06/24 17:04:08 Pt. Name: BEN GUADALUPE/Sex: 1935 Male Med Rec #: [id number] Physician: Mekhi VERGARA MD Financial #: [id number] Pt. Type: O Room/Bed: / Admit/Disch: 08/19/23 14:43:41 - 08/19/23 23:59:59 Institution: Case Times FTURO Entry 1 Patient Times In Room 08/19/23 16:00:00 Out Room 08/19/23 16:30:00 Procedure Times Start 08/19/23 16:11:00 Stop 08/19/23 16:28:00 Anesthesia Times Last Modified By: Italo MCLAUGHLIN, SHAHLAOR, Pia 01/06/24 17:01:06 Case Attendance FTURO Entry 1 Entry 2 Entry 3 Case Attendee URSULA WORKMAN, Mekhi Puckett RN, CNOR, Alejandra HANSON, Aicha Palacio Role Performed Surgeon - Primary Mis Specialist - Primary Scrub - Primary Time In 08/19/23 16:00:00 08/19/23 16:00:00 08/19/23 16:00:00 Time Out 08/19/23 16:30:00 08/19/23 16:30:00 08/19/23 16:30:00 Procedure CYSTOSCOPY LOCAL(.) CYSTOSCOPY LOCAL(.) CYSTOSCOPY LOCAL(.) Comments Last Modified By: Italo MCLAUGHLIN, CNOR, Italo MCLAUGHLIN, CNOR, Italo MCLAUGHLIN, SHAHLAOR, Pia 01/06/24 Pia 01/06/24 Pia 01/06/24 17:01:07 17:01:07 17:01:07 Surgical Procedures FTURO Entry 1 Procedure Description Procedure CYSTOSCOPY LOCAL Modifiers . Surgeon Description CYSTO Primary Procedure Yes Primary Surgeon Mekih VERGARA MD Start 08/19/23 16:11:00 Stop 08/19/23 16:28:00 Anesthesia Type Local Surgical Service Urology Wound Class 2 - Clean-Contaminated Last Modified By: Italo MCLAUGHLIN, SHAHLAOR, Pia 01/06/24 17:01:09 General Case Data FTURO Pre-Care Text: Classifies surgical wound, implements aseptic technique, initiates traffic control Entry 1 Case Information OR URO 1 FT Case Level None Wound Class 2 - Clean-Contaminated Specialty Urology Preop Diagnosis HX OF BLADDER AND Postop Same As Preop Yes PROSTATE CANCER Postop Diagnosis HX OF BLADDER AND Outcomes Met? Yes PROSTATE CANCER Last Modified By: Italo MCLAUGHLIN, SHAHLAOR, Pia 08/19/23 15:59:17 Post-Care Text: The patient is [...] 17:02 MARCELINA Puckett RN, Ruthann 01/06/24 17:04 [facility] Main OR Preoperative Recordo n 01-06-2024 Main OR Preoperative Record Main OR Preoperative Record Holding Area Document Type FTURO Summary Primary Physician: Mekhi VERGARA MD Finalized Date/Time: 01/06/24 17:05:09 Pt. Name: BEN GUADALUPE Esvin Green/Sex: 1935 Male Med Rec #: [id number] Physician: Mekhi VERGARA MD Financial #: [id number] Pt. Type: O Room/Bed: / Admit/Disch: 08/19/23 [...] MARCELINA Puckett RN, Ruthann 01/06/24 17:05 Normal [facility] U[facility]Vysion Fish and Urine Cyt o ([facility])on 10-28-2023 UVFISH & UC Diagnosis Info Invalid Interpretation Code [facility] Comment on above: Result Comment: A:Ur [...] correlated with cytology and cystoscopy results.* CPT 98733, 08699. Microscopic Notes - Microscopic Notes - Abnormal cells 9p21 deletions: Abnormal cells aneploid events: Total cells analyzed: 100 Hematuria: Gross Description Site ID:A color Yellow fixative Alcohol Received 90 mls of clear yellow fluid with the patient's name and, Urine on the vial. Electronically signed by : on: 08/25/2023 23:10:47 Performed By: #### 1 [id number] ####[facility] [address] [place] [address] Lab Reportson 10-10-2023 Lab Reports [id number]#1.00TIFF Normal [facility] Reference Lab Reporton 10-09 Reference Lab Report [id number]#1.00TIFF Normal [facility] Reminderson 08-29-2023 Reminders - From: Alaina Dickson To: EU - Recalls Vergara; Sent: 08/29/2023 09:01:00 EST Show up: 07/07/2024 09:00:00 EST Subject: cysto/fish/cytol Due Date/Time: 07/26/2024 09:00:00 EST Reminder/Recall Patient is due in Aug 2024 for 1 year cysto/fish/cytol (bt ck)/PSA Normal [facility] Telemedicineon 08-28-2023 Telemedicine [id number] Ben Guadalupe 1935 M Date Provider Department Center 08/28/2023 166-NERISSA ORDONEZ [facility]ARD [facility] Family History Problem Relation Age of Onset Heart failure Mother Prostate cancer Father Coronary artery disease Brother Prostate cancer Brother Family Status - Relation Status Age at Mother Father Brother Level of Service:06646 [place] PHYS/QHP TELEPHONE EVALUATION 11-20 MIN Reason for Visit and Comments: Atrial Fibrillation [80] Hypertension [691976] Congestive Heart Failure [127] [facility] Consent for Procedure/Surger yon 08-25-2023 Consent for Procedure/Surgery [id number]#1.00TIFF Normal [facility] IntraOperative Documentson 0 08-25-2023 IntraOperative Documents [id number]#1.00TIFF Normal [facility] CHEMISTRYOrdered By: SYSTEM SYSTEM on 08-19-2023 PSA Total 3.7 ng/mL High 0.1 - 3.5 ng/mL [facility] Comment on above: Interpretive Data: T he concentration of PSA determined by different manufacturers can vary due to differences in assay methods and reagent specificity. Values obtained from different assay methods cannot be used interchangeably. The methodology used for this result was chemiluminescence using [employer]'s [employer] Hybritech PSA reagent. Consent for Treatmenton 08-07 Consent for Treatment [id number]#1.00TIFF [facility] Consent for Treatment [id number]#1.00TIFF [facility] Operative Reporton Operative Report Patient: BEN [...] with antibiotic coverage, Follow up arranged. Normal [facility] Comment on above: Result Comment: Elec tronically Signed By: URSULA WORKMAN, Mekhi Willard.roland\Date and Time Signed: 08/19/23 16:18 EST PSA Totalon 08-19-2023 PSA Total 3.7 ng/mL High 0.1-3.5 [facility] Comment on above: Result Comment: The concentration of PSA determined by different manufacturers can vary due to differences in assay methods and reagent specificity. Values obtained from different assay methods cannot be used interchangeably. The methodology used for this result was chemiluminescence using [employer]'s [employer] PSA reagent. Performed By: #### 1 [id number] ####[facility] [address] [place] [address] UroVys[facility] Fish and Urine Cyt o ( Labs)on 08-19-2023 [facility] Method of Extraction Cystoscopy Normal [facility] Comment on above: Performed By: #### 1 [id number] ####[facility] [address] [place] [address] [facility] Number of Jars 1 Invalid Interpretation Code [facility] Comment on above: Performed By: #### 1 [id number] ####[facility] [address] [place] [address] [facility] Specimen Urine Normal [facility] Comment on above: Performed By: #### 1 [id number] ####[facility] [address] [place] [address] [facility] Type of Service Technical Only Normal [facility] Comment on above: Performed By: #### 1 [id number] ####[facility] [address] [place] [address] Office Visiton 03-07-2023 Follow-up visit [id number] Ben Guadalupe 1935 M Date Provider Department Center 03/07/2023 ANDREA GOLDSTEIN CONCHIS [facility] Family History Problem Relation Age of Onset Heart failure Mother Prostate cancer Father Coronary artery disease Brother Prostate cancer Brother Family Status - Relation Status Age at Mother Father Brother Level of Service:92117 [place] OFFICE/OUTPATIENT ESTABLISHED MOD MDM 30-39 MIN Normal [facility] POINT OF CARE GLUCOSEon 10-06 Glucose [Mass/Vol] 230 mg/dL Critically high 74-106 [facility] Comment on above: Performed By: #### P SAD #### [facility] [address] [address] [address] Mason Astudillo Office Visiton 10-18-2022 Follow-up visit [id number] Ben Guadalupe 1935 M Date Provider Department Center 10/18/2022 NERISSA TESFAYE [facility] Family History Problem Relation Age of Onset Heart failure Mother Prostate cancer Father Coronary artery disease Brother Prostate cancer Brother Family Status - Relation Status Age at Mother Father Brother Level of Service:97419 [place] OFFICE/OUTPATIENT ESTABLISHED LOW MDM 20-29 MIN Reason for Visit and Comments: Coronary Artery Disease [187] Atrial Fibrillation [80] [facility] ANESon 10-11-2022 ANES -------- Attestation signed by [...] 10/11/22 09 Procedure: TRANSESOPHAGEAL ECHO (KINZA) Location: [facility] Vascular Lab [...] attending. Additional Equipment Requests [facility] HPon 10-11-2022 -------- Attestation signed by Rosi [...] there are no changes to the H&P. [facility] 09-11-2022 [facility] Cardiology - [facility] Subjective Ben Guadalupe is a [...] February 2022 he was admitted to the [facility] with palpitations and chest pain. He [...] (more content not included)... [facility] POINT OF CARE GLUCOSEon 01-0 Glucose [Mass/Vol] 203 mg/dL Critically high 74-106 T [facility] Comment on above: Performed By: #### U A #### [facility] [address] [place] [address] Dr. Mason Astudillo ANES POSTPROC EVALon 022 ANES POSTPROC EVAL HNO ID: [id number] Author: Kandice Guadalupe MD Service: ? Author Type: Physician Type: Anesthesia Postprocedure Evaluation Filed: 05/17/2022 2:13 PM Note Text: POST ANESTHESIA EVALUATION NOTE : 1935 Procedure Summary Date: 05/17/22 Room / Location: [address] [facility] Anesthesia Start: 954 Anesthesia Stop: 1201 [...] with this procedure. Documented by Minesh Levy APRN.GREETER 05/17/2022 12:02 PM EST SIGNATURE: Kandice Guadalupe MD PATIENT NAME: Ben Guadalupe DATE: May 17, 2022 TIME: 2:13 PM CSN: [id number] Normal [facility] ANES PRE-OPon 05-17-2022 ANES PRE-OP HNO ID: [id number] Author: Kandice Guadalupe MD Service: ? Author [...] mcg/actuation na (more content not included)... Normal [facility] BRIEF OP NOTon 05-17-2022 BRIEF OP NOT HNO ID: [id number] Author: Tristin Wilcox MD, PhD Service: Colorectal Author Type: Physician Type: Brief Op Note Filed: 05/17/2022 11:34 AM Note Text: BRIEF OPERATIVE NOTE - COLORECTAL SURGERY Log ID: [id number] Surgery/Procedure Date: 05/17/2022 Incision/Procedure Start Time: 10:17 AM Incision Close/Procedure End Time: 11:27 AM Surgeon(s) and Optical Lab Technician(s): Surgeon(s) and Role: * Tristin Wilcox MD, [...] May 17, 2022 TIME: 11:30 AM Normal [facility] Gas and Carbon monoxide pane l (BldV)on 05-17-2022 BASE DEFICIT, VENOUS -2 mmol/L Normal -2-0 [facility] Comment on above: Order Comment: Speci men Type: VENOUS BLOOD SPECIMENOrdering Facility: [facility] Address: [address] [place] [phone] Performed By: #### 2 4344-4 ####[facility] LABCLIA [id number] [place] [address] [place] Body temperature 97.52 [degF] Normal [facility] Comment on above: Order Comment: Speci men Type: VENOUS BLOOD SPECIMENOrdering Facility: [facility] Address: [address] [place] [address] Performed By: #### 2 4344-4 ####[facility] LABCLIA [id number] [place] [address] [place] Calcium.ionized (Bld) [Mass/Vol] 1.17 mmol/L Normal 1.08-1.30 [facility] Comment on above: Order Comment: Speci men Type: VENOUS BLOOD SPECIMENOrdering Facility: [facility] Address: [address] [place] [address] Performed By: #### 2 4344-4 ####[facility] LABCLIA [id number] [address] Calcium.ionized adjusted to pH 7.4 (BldA) [Moles/Vol] 1.17 mmol/L Normal 1.08-1.30 [facility] Comment on above: Order Comment: Speci men Type: VENOUS BLOOD SPECIMENOrdering Facility: [facility] Address: [address] [place] [address] Performed By: #### 2 4344-4 ####[facility] LABCLIA [id number] [place] [address] [place] Carboxyhemoglobin (BldV) [Mass fraction] 1.4 % Normal 0.0-2.0 [facility] Comment on above: Order Comment: Speci men Type: VENOUS BLOOD SPECIMENOrdering Facility: [facility] Address: [address] [place], [place] [address] Result Comment: Carb oxyhemoglobin Reference Range for Smokers: 2.0-8.0% Performed By: #### 2 4344-4 ####[facility] LABCLIA [id number] [address] [id number] [address] [place] CO2 (BldV) [Partial pressure] 37 mm[Hg] Low 42-55 [facility] Comment on above: Order Comment: Speci men Type: VENOUS BLOOD SPECIMENOrdering Facility: [facility] Address: [address] Performed By: #### 2 4344-4 ####[facility] LABCLIA [id number] [place] [address] [place] CO2 [Moles/Vol] 23 mmol/L Low 25-29 [facility] Comment on above: Order Comment: Speci men Type: VENOUS BLOOD SPECIMENOrdering Facility: [facility] Address: [address] Performed By: #### 2 4344-4 ####[facility] LABCLIA [id number] [place] [address] [place] CO2 adjusted to patient's actual temperature (BldV) [Partial pressure] 35 mmHg Low 42-55 [facility] Comment on above: Order Comment: Speci men Type: VENOUS BLOOD SPECIMENOrdering Facility: [facility] Address: [address] [place], [place] [address] Performed By: #### 2 4344-4 ####[facility] LABCLIA [id number] [place] [address] [place] Glucose [Mass/Vol] 198 mg/dL High 60-105 [facility] Comment on above: Order Comment: Speci men Type: VENOUS BLOOD SPECIMENOrdering Facility: [facility] Address: [address] Performed By: #### 2 4344-4 ####[facility] LABCLIA [id number] [place] [address] [place] HCO3 (Bld) [Moles/Vol] 22 mmol/L Low 24-28 [facility] Comment on above: Order Comment: Speci men Type: VENOUS BLOOD SPECIMENOrdering Facility: [facility] Address: [address] Performed By: #### 2 4344-4 ####[facility] LABCLIA [id number] [place] [address] [place] Hematocrit (Bld) [Volume fraction] 36.4 % Low 39.0-51.0 [facility] Comment on above: Order Comment: Speci men Type: VENOUS BLOOD SPECIMENOrdering Facility: [facility] Address: [address] [address] Performed By: #### 2 4344-4 ####[facility] LABIA [id number] [place] [address] [place] Hemoglobin (Bld) [Mass/Vol] 11.8 g/dL Low 13.0-17.0 [facility] Comment on above: Order Comment: Speci men Type: VENOUS BLOOD SPECIMENOrdering Facility: [facility] Address: [address] [address] Performed By: #### 2 4344-4 ####[facility] LABIA [id number] [place] [address] [place] Lactate [Moles/Vol] 1.9 mmol/L Normal 0.5-2.2 [facility] Comment on above: Order Comment: Speci men Type: VENOUS BLOOD SPECIMENOrdering Facility: [facility] Address: [address] Performed By: #### 2 4344-4 ####[facility] LABCLIA [id number] [place] [address] [place] Methemoglobin (Bld) [Mass fraction] 1.1 % Normal 0.0-1.5 [facility] Comment on above: Order Comment: Speci men Type: VENOUS BLOOD SPECIMENOrdering Facility: [facility] Address: [address] Performed By: #### 2 4344-4 ####[facility] LABCLIA [id number] [place] [address] [place] O2 THERAPY RA=Room Air Normal [facility] Comment on above: Order Comment: Speci men Type: VENOUS BLOOD SPECIMENOrdering Facility: [facility] Address: [address] [place] [address] Performed By: #### 2 4344-4 ####[facility] LABCLIA [id number] [place] [address] [place] Oxygen (BldV) [Partial pressure] 50 mm[Hg] High 35-45 [facility] Comment on above: Order Comment: Speci men Type: VENOUS BLOOD SPECIMENOrdering Facility: [facility] Address: [address] [place] [address] Performed By: #### 2 4344-4 ####[facility] LABCLIA [id number] [place] [address] [place] Oxygen adjusted to patient's actual temperature (BldV) [Partial pressure] 48 mmHg High 35-45 [facility] Comment on above: Order Comment: Speci men Type: VENOUS BLOOD SPECIMENOrdering Facility: [facility] Address: [address] [place] [address] Performed By: #### 2 4344-4 ####[facility] LABCLIA [id number] [place] [address] [place] Oxygen saturation in Venous blood 82 % Normal 60-85 [facility] Comment on above: Order Comment: Speci men Type: VENOUS BLOOD SPECIMENOrdering Facility: [facility] Address: [address] [place] [address] Performed By: #### 2 4344-4 ####[facility] LABCLIA [id number] [place] [address] [place] Oxyhemoglobin (BldV) [Mass fraction] 80 % Normal 60-85 [facility] Comment on above: Order Comment: Speci men Type: VENOUS BLOOD SPECIMENOrdering Facility: [facility] Address: [address] Performed By: #### 2 4344-4 ####[facility] LABCLIA [id number] [place] [address] [place] pH (BldV) 7.39 [pH] Normal 7.32-7.42 [facility] Comment on above: Order Comment: Speci men Type: VENOUS BLOOD SPECIMENOrdering Facility: [facility] Address: [address] Performed By: #### 2 4344-4 ####[facility] LABCLIA [id number] [place] [address] [place] pH adjusted to patient's actual temperature (BldV) 7.40 Normal 7.32-7.42 [facility] Comment on above: Order Comment: Speci men Type: VENOUS BLOOD SPECIMENOrdering Facility: [facility] Address: [address] Performed By: #### 2 4344-4 ####[facility] LABCLIA [id number] [place] [address] [place] Potassium [Moles/Vol] 2.9 mmol/L Low 3.5-5.0 [facility] Comment on above: Order Comment: Speci men Type: VENOUS BLOOD SPECIMENOrdering Facility: [facility] Address: [address] Performed By: #### 2 4344-4 ####[facility] LABCLIA [id number] [place] [address] [place] Sodium [Moles/Vol] 137 mmol/L Normal 136-144 [facility] Comment on above: Order Comment: Speci men Type: VENOUS BLOOD SPECIMENOrdering Facility: [facility] Address: [address] Performed By: #### 2 4344-4 ####[facility] [id number] [address] [address] [place] OPERATIVE NOon 05-17-2022 OPERATIVE NO HNO ID: [id number] Author: Tristin Wilcox MD, PhD Service: Colorectal Author Type: Physician Type: Operative Report Filed: 05/31/2022 2:52 PM Note Text: OPERATIVE REPORT LOG ID: [id number] SURGERY DATE: 05/17/2022 INCISION/PROCEDURE START TIME: 10:17 AM INCISION CLOSE/PROCEDURE END TIME: 11:27 AM PREOPERATIVE DIAGNOSIS: Prolapsing, symptomatic, large internal and external hemorrhoids. Colonic polyps. POSTOPERATIVE DIAGNOSIS: Grade 4; Prolapsing, symptomatic, large internal and external hemorrhoids. Colonic polyps. Surgeon(s)/Proceduralist(s) and Optical Lab Technician(s): Surgeon(s) and Role: * Tristin Wilcox MD, [...] with assistance. PATIENT NAME: Ben Guadalupe Normal [facility] POTASSIUM BLDon 05-17-2022 Potassium [Moles/Vol] 3.0 mmol/L Low 3.7-5.1 [facility] Comment on above: Order Comment: Speci men Type: BLOOD SPECIMENOrdering Facility: [facility] Address: [address] [place] [address] Performed By: #### K 1 ####[facility] LABCLIA [id number] [address] SURGICAL PATHOLOGYon 022 CASE REPORT Normal [facility] Comment on above: Order Comment: Speci men Type: TISSUE SPECIMENOrdering Facility: [facility] Address: [address] [place] [address] Result Comment: Surg ical Pathology Report Case: [id number] Authorizing Provider: Tristin Wilcox, Collected: 05/17/2022 10:25 AM , PhD Ordering Location: Admitting Received: 05/17/2022 01:44 PM Pathologist: Daryn June MD Specimens: A) - COLON POLYP, RIGHT COLON POLYP B) - COLON POLYP, LEFT COLON POLYP C) - RECTAL POLYP D) - HEMORRHOID, left lateral E) - HEMORRHOID, right posterior Performed By: #### S ####[facility] LABCLIA [id number] [place] [address] [place] [id number] [address] [place] CLINICAL HISTORY Normal [facility] Comment on above: Order Comment: Speci men Type: TISSUE SPECIMENOrdering Facility: [facility] Address: [address] [place] [address] Result Comment: Pre- op diagnosis: Fourth degree hemorrhoids [K64.3] Performed By: #### S ####[facility] LABCLIA [id number] [address] LABCLIA [id number] [address] FINAL DIAGNOSIS Normal [facility] Comment on above: Order Comment: Speci men Type: TISSUE SPECIMENOrdering Facility: [facility] Address: [address] [place] [address] Result Comment: A. C olon, right, polyp, biopsy: - Tubular adenoma. B. Colon, left, polyp, biopsy: - Tubular adenoma. C. Rectum, polyp, biopsy: - Tubular adenoma. D. Anus, left lateral, hemorrhoid, excision: - Fibroepithelial polyp. E. Anus, right posterior, hemorrhoid, excision: - Dilated hemorrhoidal varices. Performed By: #### S ####[facility] LABCLIA [id number] [address] LABCLIA [id number] [address] FINAL PERFORMING LAB Normal [facility] Comment on above: Order Comment: Speci men Type: TISSUE SPECIMENOrdering Facility: [facility] Address: [address] [place] [address] Result Comment: Diag nostic interpretation performed at [facility], [address] [place] [address] CLIA# [id number] Intern Retail: Nga Schultz M.D. Performed By: #### S ####[facility] LABCLIA [id number] [address] LABCLIA [id number] [address] [id number] [address] [place] GROSS DESCRIPTION A. COLON POLYP Normal [facility] Comment on above: Order Comment: Speci men Type: TISSUE SPECIMENOrdering Facility: [facility] Address: [address], [place] [address] Result Comment: Rece ived in formalin is [...] 0.1 cm. Totally submitted in one cassette. [facility] May 17, 2022 3:41 PM Gross examination performed at [facility], [address] [place] [address] D. HEMORRHOID Received fresh designated left lateral is a cason-busby portion of skin that measures 4.5 x 1.5 x 1 cm. Sectioning through the specimen reveals hemorrhagic cut surfaces. Reconnaissance Crewmember sections are submitted in 1 cassette. WE May 17, 2022 3:17 PM Gross examination performed at [facility], [address] [place] [address] E. HEMORRHOID Received fresh designated right posterior is a pink-cason portion of skin that measures 3.9 x 0.6 x 0.6 cm. Sectioning through the specimen reveals hemorrhagic cut surfaces. Reconnaissance Crewmember sections are submitted in 1 cassette. WE May 17, 2022 3:19 PM Gross examination performed at [facility], [address] [place] [address] Performed By: #### S ####[facility]ID [facility] LABCLIA [id number] [address] STATES OF [facility] [id number] [facility] [id number] [place], [place] [id number] [facility] Oralia 05-16-2022 CNPN Telephone (KADIE) BEN GUADALUPE ([id number]) 1935 M Date Time Provider Department 05/16/22 [...] Encounter Status:Closed by DELICIA FULLER on 05/16/22 [facility] CNPN Telephone (KADIE) BEN GUADALUPE ([id number]) 1935 M Date Time Provider Department 05/16/22 [...] 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 Address: [address] [place] [address] Performed By: #### 5 8410-2 ####[facility]NORT[facility] [id number] [address] [place] Hematocrit (Bld) [Volume fraction] 38.9 % Low 39.0-51.0 [facility] Comment on above: Order Comment: Speci men Type: BLOOD SPECIMENOrdering Facility: [facility] Address: [address] [place] [address] Performed By: #### 5 8410-2 ####[facility] LABIA [id number] [address] [place] Hemoglobin (Bld) [Mass/Vol] 12.2 g/dL Low 13.0-17.0 [facility] Comment on above: Order Comment: Speci men Type: BLOOD SPECIMENOrdering Facility: [facility] Address: [address] [place] [address] Performed By: #### 5 8410-2 ####[facility] LABIA [id number] [place] [address] [place] MCH (RBC) [Entitic mass] 28.4 pg Normal 26.0-34.0 [facility] Comment on above: Order Comment: Speci men Type: BLOOD SPECIMENOrdering Facility: [facility] Address: [address] [place] [address] Performed By: #### 5 8410-2 ####[facility] LABIA [id number] [address] STATES [facility] MCHC (RBC) [Mass/Vol] 31.4 g/dL Normal 30.5-36.0 [facility] Comment on above: Order Comment: Speci men Type: BLOOD SPECIMENOrdering Facility: [facility] Address: [address] [place] [address] Performed By: #### 5 8410-2 ####[facility] LABIA [id number] [place] [address] [place] MCV (RBC) [Entitic vol] 90.5 fL Normal 80.0-100.0 [facility] Comment on above: Order Comment: Speci men Type: BLOOD SPECIMENOrdering Facility: [facility] Address: [address] [place] [address] Performed By: #### 5 8410-2 ####[facility] [id number] [place] [address] [place] Nucleated RBC (Bld) [#/Vol] 10*3/uL Normal <0.01 [facility] Comment on above: Order Comment: Speci men Type: BLOOD SPECIMENOrdering Facility: [facility] Address: [address] [place] [address] Performed By: #### 5 8410-2 ####[facility] LABIA [id number] [address] [place] Platelet mean volume (Bld) [Entitic vol] 10.9 fL Normal 9.0-12.7 [facility] Comment on above: Order Comment: Speci men Type: BLOOD SPECIMENOrdering Facility: [facility] Address: [address] [place] [address] Performed By: #### 5 8410-2 ####[facility] LABIA [id number] [address] [id number], [place] [address] [place] Platelets (Bld) [#/Vol] 135 10*3/uL Low 150-400 [facility] Comment on above: Order Comment: Speci men Type: BLOOD SPECIMENOrdering Facility: [facility] Address: [address] [place] [address] Performed By: #### 5 8410-2 ####[facility] LABCLIA [id number] [place] [address] [place] RBC (Bld) [#/Vol] 4.30 10*6/uL Normal 4.20-6.00 [facility] Comment on above: Order Comment: Speci men Type: BLOOD SPECIMENOrdering Facility: [facility] Address: [address] [place] [address] Performed By: #### 5 8410-2 ####[facility] LABCLIA [id number] [place] [address] [place] WBC (Bld) [#/Vol] 4.75 10*3/uL Normal 3.70-11.00 [facility] Comment on above: Order Comment: Speci men Type: BLOOD SPECIMENOrdering Facility: [facility] Address: [address] [place] [address] Performed By: #### 5 8410-2 ####[facility] LABCLIA [id number] [address] [place] CONFIRM BLOOD TYPEon 022 ABO A Normal [facility] Comment on above: Order Comment: Speci men Type: BLOOD SPECIMENOrdering Facility: [facility] Address: [address] [place] [address] Performed By: #### C ONAB ####[facility] BLOOD BANKCLIA [id number] [place] [address] [place] Rh Nom (Bld) Negative Normal [facility] Comment on above: Order Comment: Speci men Type: BLOOD SPECIMENOrdering Facility: [facility] Address: [address] [address] Performed By: #### C ONAB ####[facility] BANKIA [id number] [address] [facility] Comprehensive metabolic 2000 panelon 05-10-2022 Albumin [Mass/Vol] 4.4 g/dL Normal 3.9-4.9 [facility] Comment on above: Order Comment: Speci men Type: BLOOD SPECIMENOrdering Facility: [facility] Address: [address] [address] Performed By: #### 2 4323-8 ####[facility] LABCLIA [id number] [place] [address] [place] ALP [Catalytic activity/Vol] 54 U/L Normal 38-113 [facility] Comment on above: Order Comment: Speci men Type: BLOOD SPECIMENOrdering Facility: [facility] Address: [address] [address] Performed By: #### 2 4323-8 ####[facility] LABCLIA [id number] [address] [place] ALT [Catalytic activity/Vol] 55 U/L High 10-54 [facility] Comment on above: Order Comment: Speci men Type: BLOOD SPECIMENOrdering Facility: [facility] Address: [address] Performed By: #### 2 4323-8 ####[facility] LABCLIA [id number] [place] [address] [place] Anion gap [Moles/Vol] 12 mmol/L Normal 9-18 [facility] Comment on above: Order Comment: Speci men Type: BLOOD SPECIMENOrdering Facility: [facility] Address: [address] [address] Performed By: #### 2 4323-8 ####[facility] LABCLIA [id number] [place] [address] [place] AST [Catalytic activity/Vol] 27 U/L Normal 14-40 [facility] Comment on above: Order Comment: Speci men Type: BLOOD SPECIMENOrdering Facility: [facility] Address: [address] [place] [address] Performed By: #### 2 4323-8 ####[facility] LABCLIA [id number] [place] [address] [place] Bilirubin [Mass/Vol] 0.3 mg/dL Normal 0.2-1.3 [facility] Comment on above: Order Comment: Speci men Type: BLOOD SPECIMENOrdering Facility: [facility] Address: [address] [place] [address] Performed By: #### 2 4323-8 ####[facility] LABCLIA [id number] [place] [address] [place] Calcium [Mass/Vol] 9.1 mg/dL Normal 8.5-10.2 [facility] Comment on above: Order Comment: Speci men Type: BLOOD SPECIMENOrdering Facility: [facility] Address: [address] [place], [place] [address] Performed By: #### 2 4323-8 ####[facility] LABCLIA [id number] [place] [address] [place] Chloride [Moles/Vol] 100 mmol/L Normal 97-105 [facility] Comment on above: Order Comment: Speci men Type: BLOOD SPECIMENOrdering Facility: [facility] Address: [address] [place], [place] [address] Performed By: #### 2 4323-8 ####[facility] LABCLIA [id number] [place] [address] [place] CO2 [Moles/Vol] 29 mmol/L Normal 22-30 [facility] Comment on above: Order Comment: Speci men Type: BLOOD SPECIMENOrdering Facility: [facility] Address: [address] [address] Performed By: #### 2 4323-8 ####[facility] LABIA [id number] [address] Creatinine [Mass/Vol] 1.09 mg/dL Normal 0.73-1.22 [facility] Comment on above: Order Comment: Speci men Type: BLOOD SPECIMENOrdering Facility: [facility] Address: [address] [address] Performed By: #### 2 4323-8 ####[facility] LABIA [id number] [address] ESTIMATED GLOMERULAR FILTRATION RATE 67 mL/min/1.73m??? Normal >=60 [facility] Comment on above: Order Comment: Speci men Type: BLOOD SPECIMENOrdering Facility: [facility] Address: [address] [address] Result Comment: [place] mated Glomerular Filtration Rate [...] actual GFR. Performed By: #### 2 4323-8 ####[facility] LABIA [id number] [address] [place] Glucose [Mass/Vol] 217 mg/dL High 74-99 [facility] Comment on above: Order Comment: Speci men Type: BLOOD SPECIMENOrdering Facility: [facility] Address: [address] [place] [address] Result Comment: The [place] Diabetes Association (ADA) provides guidance for cutoff [...] Standards of Medical Care in Diabetes 2016, [place] [employer] Association. Diabetes Care. 2016.39(Suppl 1). Performed By: #### 2 4323-8 ####[facility] LABCLIA [id number] [place] [address] [place] Potassium [Moles/Vol] 3.2 mmol/L Low 3.7-5.1 [facility] Comment on above: Order Comment: Speci men Type: BLOOD SPECIMENOrdering Facility: [facility] Address: [address] [place] [address] Performed By: #### 2 4323-8 ####[facility] LABIA [id number] [place] [address] [place] Protein [Mass/Vol] 6.4 g/dL Normal 6.3-8.0 [facility] Comment on above: Order Comment: Theoi men Type: BLOOD SPECIMENOrdering Facility: [facility] Address: [address] [address] Performed By: #### 2 4323-8 ####[facility] LABCLIA [id number] [place] [address] [place] Sodium [Moles/Vol] 141 mmol/L Normal 136-144 [facility] Comment on above: Order Comment: Speci men Type: BLOOD SPECIMENOrdering Facility: [facility] Address: [address] [address] Performed By: #### 2 4323-8 ####[facility] LABCLIA [id number] [place] [address] [place] Urea nitrogen [Mass/Vol] 26 mg/dL High 9-24 [facility] Comment on above: Order Comment: Speci men Type: BLOOD SPECIMENOrdering Facility: [facility] Address: [address] [phone] Performed By: #### 2 4323-8 ####[facility] LABCLIA [id number] [id number] [id number] [place] ECG COMPLETEon 05-10-2022 ECG COMPLETE Ventricular Rate : 7 6 BPM Atrial Rate : 76 BPM P-R Interval : 130 ms QRS Duration : 134 ms Q-T Interval : 442 ms QTC Calculation(Bazett) : 497 ms Calculated P [place] : 37 degrees Calculated R [place] : 64 degrees Calculated T [place] : -10 degrees NORMAL SINUS RHYTHM COMPLETE RIGHT BUNDLE BRANCH BLOCK INFERIOR T WAVE ABNORMALITY ABNORMAL ECG Confirmed by YENNI TANNER MD ([id number]) on 05/14/2022 7:11:13 PM NAME : BEN GUADALUPE PID : [id number] : 1935 Gender : Male Race : ORD : [id number] Procedure Date : May 10 2022 11:57:54 Edit Date : May 14 2022 19:11:14 Diagnosis: NORMAL SINUS RHYTHM COMPLETE RIGHT BUNDLE BRANCH BLOCK INFERIOR T WAVE ABNORMALITY ABNORMAL ECG Confirmed by YENNI TANNER MD ([id number]) on 05/14/2022 7:11:13 PM Test Reason : Location : 119 : A17 Overread By : YENNI TANNER MD Edited By : YENNI TANNER MD Referred By : TRISTIN WILCOX Acquired by : CHANELLE FRANKLIN [facility] HISTORY PHYSICALon HISTORY PHYSICAL HNO ID: [id number] Author: Afia Downing PA-C Service: ? Author Type: Physician Optical Lab Technician Type: HANDP Filed: 05/13/2022 10:05 AM Note [...] capsule Take (more content not included)... Normal [facility] HbA1c (Bld)on 05-10-2022 Average glucose Estimated from glycated hemoglobin (Bld) [Mass/Vol] 151 mg/dL Normal [facility] Comment on above: Order Comment: Speci men Type: BLOOD SPECIMENOrdering Facility: [facility] Address: [address] [place] [phone] Result Comment: eAG: (Estimated average glucose) is a calculated value from HgbA1c and is employee representative of the average blood glucose level in the last 2-3 month period. Performed By: #### 5 5454-3 ####[facility] LABCLIA [id number] [address] [place] HbA1c (Bld) [Mass fraction] 6.9 % High 4.3-5.6 [facility] Comment on above: Order Comment: Speci men Type: BLOOD SPECIMENOrdering Facility: [facility] Address: [address] [address] Result Comment: [place] Diabetes Association guidelines indicate that patients with HgbA1c in the range 5.7-6.4% are at increased risk for development of diabetes, and intervention by lifestyle modification may be beneficial. HgbA1c greater or equal to 6.5% is considered diagnostic of diabetes. Performed By: #### 5 5454-3 ####[facility] LABCLIA [id number] [address] OF [facility] TYPE AND SCREEN,30 DAYon ABO A Normal [facility] Comment on above: Order Comment: Speci men Type: BLOOD SPECIMENOrdering Facility: [facility] Address: [address] [place] [address] Performed By: #### T SCR30 ####[facility] BLOOD BANKCLIA [id number] [address] [place] HISTORICAL AB SCR STATUS Negative Normal [facility] Comment on above: Order Comment: Speci men Type: BLOOD SPECIMENOrdering Facility: [facility] Address: [address] [address] Performed By: #### T SCR30 ####[facility] BLOOD BANKCLIA [id number] [address] [place] Rh Nom (Bld) Negative Normal [facility] Comment on above: Order Comment: Speci men Type: BLOOD SPECIMENOrdering Facility: 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] Prescriptions as of 04/24/2022 - furosemide (LASIX) [...] Encounter Status:Closed by MARIKA ZUÑIGA on 04/24/22 [facility] CNOVon 04-17-2022 CNOV Office Visit (CORLINDSEY ) COLLINSBEN Mcallister ([id number]) 1935 M Date Time Provider Department 04/17/22 1:00 PM TRISTIN WILCOX During your visit today, we recorded the following information about you: Temperature Pulse Respiration Blood pressure 98.4 degrees 70/minute 16/minute 127/74 Weight Height 86.2 kg 1.778 m Tristin Wilcox MD, PhD 04/17/2022 5:14 PM Signed COLORECTAL SURGERY New Patient Visit April 17, 2022 Chief Complaint: Hemorrhoids History of Present Illness: Ben Esvin Collins is a 86 year old year old [...] mg pe (more content not included)... Normal [facility] Flexible Sigmoidoscopyon Flexible sigmoidoscopy A30 Gastrointestinal Endoscopy Patient Name: Ben Guadalupe Procedure Date: 04/17/2022 1:38 PM Date of : 1935 Admit Type: Outpatient Age: 86 Gender: Male Note Status: Finalized Attending MD: Tristin Wilcox MD Procedure: Flexible Sigmoidoscopy Indications: Hematochezia Providers: Tristin Wilcxo MD Patient Profile: Refer to note in [...] previous diet. Procedure Code(s): --- Professional --- 70491, Sigmoidoscopy, flexible; diagnostic, including collection of specimen(s) by brushing or washing, when performed (separate procedure) Diagnosis Code(s): --- Professional --- K64.3, Fourth degree hemorrhoids K62.1, Rectal polyp K92.1, Melena (includes Hematochezia) K57.30, Diverticulosis of large intestine without perforation or abscess without bleeding CPT copyright 2019 [place] [employer]. All rights reserved. The codes documented in this report are preliminary and upon rheostat assembler review may be revised to meet current compliance requirements. Attending Participation: I personally performed the entire procedure. Scope In: Scope Out: Dr. Tristin Wilcox MD 04/17/2022 2:21:53 PM This report has been signed electronically. Number of Addenda: 0 Note Initiated On: 04/17/2022 1:38 PM Normal [facility] HISTORY PHYSICALon HISTORY PHYSICAL HNO ID: [id number] Author: Tristin Wilcox MD, PhD Service: ? [...] PACC s (more content not included)... Normal [facility] SIGMOIDOSCOPYon 04-17-2022 [facility] POINT OF CARE GLUCOSEon 04-06 Glucose [Mass/Vol] 268 mg/dL Critically high 74-106 [facility] Comment on above: Performed By: #### P OCGLUC #### [facility] [address] [place] [address] Dr. Mason Astudillo CBC AUTO DIFFon 04-11-2022 BASO # 0.0 103/ul Normal 0.0-0.1 [facility] Comment on above: Performed By: #### U A #### [facility] [address] [place] [address] Dr. Mason Astudillo Basophils/100 WBC (Bld) 0.4 % Normal 0.2-2.0 [facility] Comment on above: Performed By: #### U A #### [facility] [address] [place] [address] Dr. Mason Astudillo EO # 0.1 103/ul Normal 0.0-0.7 [facility] Comment on above: Performed By: #### U A #### [facility] [address] [place] [address] Dr. Mason Astudillo Eosinophils/100 WBC (Bld) 1.9 % Normal 0.9-7.0 [facility] Comment on above: Performed By: #### U A #### [facility] [address] [place] [address] Dr. Mason Astudillo Erythrocyte distribution width (RBC) [Ratio] 16.0 % Critically high 11.0-15.0 [facility] Comment on above: Performed By: #### U A #### [facility] [address] [place] [address] Dr. Mason Astudillo Hematocrit (Bld) [Volume fraction] 27.4 % Critically low 42.0-54.0 [facility] Comment on above: Performed By: #### U A #### [facility] [address] [place] [address] Dr. Mason Astudillo Hemoglobin (Bld) [Mass/Vol] 8.7 g/dL Critically low 14.0-18.0 [facility] Comment on above: Performed By: #### U A #### [facility] [address] [place] [address] Dr. Mason Astudillo IG # 0.03 10e3/ul Normal 0.00-0.03 [facility] Comment on above: Performed By: #### U A #### [facility] [address] [place] [address] Dr. Mason Astudillo IG % 0.6 % Critically high 0.0-0.5 [facility] Comment on above: Performed By: #### U A #### [facility] [address] [place] [address] Dr. Mason Astudillo LYMPH # 0.7 103/ul Critically low 1.2-3.8 [facility] Comment on above: Performed By: #### U A #### [facility] [address] [place] [address] Dr. Mason Astudillo Lymphocytes/100 WBC (Bld) 15.8 % Critically low 20.5-60.0 [facility] Comment on above: Performed By: #### U A #### [facility] [address] [place] [address] Dr. Mason Astudillo MANUAL DIFF REQ NO Normal [facility] Comment on above: Performed By: #### U A #### [facility] [address] [place] [address] Dr. Mason Astudillo MCH (RBC) [Entitic mass] 29.9 pg Normal 25.9-34.0 [facility] Comment on above: Performed By: #### U A #### [facility] [address] [place] [address] Dr. Mason Astudillo MCHC (RBC) [Mass/Vol] 31.8 g/dL Normal 29.9-35.2 [facility] Comment on above: Performed By: #### U A #### [facility] [address] [place] [address] Dr. Mason Astudillo MCV (RBC) [Entitic vol] 94.2 fL Critically high 80.0-94.0 [facility] Comment on above: Performed By: #### U A #### [facility] [address] [place] [address] Dr. Mason Astudillo MONO # 0.3 103/ul Normal 0.3-0.8 [facility] Comment on above: Performed By: #### U A #### [facility] [address] [place] [address] Dr. Mason Astudillo Monocytes/100 WBC (Bld) 6.9 % Normal 1.7-12.0 [facility] Comment on above: Performed By: #### U A #### [facility] [address] [place] [address] Dr. Mason Astudillo NEUT # 3.4 103/ul Normal 1.4-6.5 [facility] Comment on above: Performed By: #### U A #### [facility] [address] [place] [address] Dr. Mason Astudillo Neutrophils/100 WBC (Bld) 74.4 % Normal 43.0-75.0 [facility] Comment on above: Performed By: #### U A #### [facility] [address] [address] [address] Mason Astudillo Platelet mean volume (Bld) [Entitic vol] 10.6 fL Normal 9.5-13.5 [facility] Comment on above: Performed By: #### U A #### [facility] [address] [address] [address] Mason Astudillo PLT 117 103/ul Critically low 150-450 [facility] Comment on above: Performed By: #### U A #### [facility] [address] [address] [address] Mason Astudillo RBC 2.91 106/ul Critically low 4.70-6.10 [facility] Comment on above: Performed By: #### U A #### [facility] [address] [address] [address] Mason Astudillo WBC 4.6 103/ul Normal 4.0-11.0 [facility] Comment on above: Performed By: #### U A #### [facility] [address] [address] [address] Mason Astudillo CARDIAC STRESS TESTon 2021 [...] be dictated separately by Radiology. Normal [facility] NM STRESS/REST MULTIon 03-26 NM STRESS/REST MULTI Patient: BEN GUADALUPE Exam Date: 03/26/2022 : 1935 Gender:M Ordering : DR KAVITA DANIELLE M.D. Admission #: [id number] Family : Order #: [id number] CLICK HERE TO VIEW EXAM RADIOLOGY REPORT [...] MD on 03/27/2022 at 08:14 Normal [facility] CBC AUTO DIFFon 03-18-2022 BASO # 0.0 103/ul Normal 0.0-0.1 [facility] Comment on above: Performed By: #### P OCGLUC #### [facility] [address] [place] [address] Dr. Mason Astudillo Basophils/100 WBC (Bld) 0.5 % Normal 0.2-2.0 [facility] Comment on above: Performed By: #### P OCGLUC #### [facility] [address] [address] [address] Mason Astudillo EO # 0.1 103/ul Normal 0.0-0.7 [facility] Comment on above: Performed By: #### P OCGLUC #### [facility] [address] [address] [address] Mason Astudillo Eosinophils/100 WBC (Bld) 2.3 % Normal 0.9-7.0 [facility] Comment on above: Performed By: #### P OCGLUC #### [facility] [address] [place] [address] Dr. Mason Astudillo Erythrocyte distribution width (RBC) [Ratio] 17.2 % Critically high 11.0-15.0 [facility] Comment on above: Performed By: #### P OCGLUC #### [facility] [address] [place] [address] Dr. Mason Astudillo Hematocrit (Bld) [Volume fraction] 43.9 % Normal 42.0-54.0 [facility] Comment on above: Performed By: #### P OCGLUC #### [facility] [address] [place] [address] Dr. Mason Astudillo Hemoglobin (Bld) [Mass/Vol] 14.1 g/dL Normal 14.0-18.0 [facility] Comment on above: Performed By: #### P OCGLUC #### [facility] [address] [place] [address] Dr. Mason Astudillo IG # 0.04 10e3/ul Critically high 0.00-0.03 [facility] Comment on above: Performed By: #### P OCGLUC #### [facility] [address] [place] [address] Dr. Mason Astudillo IG % 0.7 % Critically high 0.0-0.5 [facility] Comment on above: Performed By: #### P OCGLUC #### [facility] [address] [place] [address] Dr. Mason Astudillo LYMPH # 1.1 103/ul Critically low 1.2-3.8 [facility] Comment on above: Performed By: #### P OCGLUC #### [facility] [address] [place] [address] Dr. Mason Astudillo Lymphocytes/100 WBC (Bld) 18.3 % Critically low 20.5-60.0 [facility] Comment on above: Performed By: #### P OCGLUC #### [facility] [address] [place] [address] Dr. Mason Astudillo MANUAL DIFF REQ NO Normal [facility] Comment on above: Performed By: #### P OCGLUC #### [facility] [address] [place] [address] Dr. Mason Astudillo MCH (RBC) [Entitic mass] 29.3 pg Normal 25.9-34.0 [facility] Comment on above: Performed By: #### P OCGLUC #### [facility] [address] [place] [address] Dr. Mason Astudillo MCHC (RBC) [Mass/Vol] 32.1 g/dL Normal 29.9-35.2 [facility] Comment on above: Performed By: #### P OCGLUC #### [facility] [address] [place] [address] Dr. Mason Astudillo MCV (RBC) [Entitic vol] 91.1 fL Normal 80.0-94.0 [facility] Comment on above: Performed By: #### P OCGLUC #### [facility] [address] [place] [address] Dr. Mason Asutdillo MONO # 0.5 103/ul Normal 0.3-0.8 [facility] Comment on above: Performed By: #### P OCGLUC #### [facility] [address] [place] [address] Dr. Mason Astudillo Monocytes/100 WBC (Bld) 7.7 % Normal 1.7-12.0 [facility] Comment on above: Performed By: #### P OCGLUC #### [facility] [address] [place] [address] Dr. Mason Astudillo NEUT # 4.3 103/ul Normal 1.4-6.5 [facility] Comment on above: Performed By: #### P OCGLUC #### [facility] [address] [place] [address] Dr. Mason Astudillo Neutrophils/100 WBC (Bld) 70.5 % Normal 43.0-75.0 [facility] Comment on above: Performed By: #### P OCGLUC #### [facility] [address] [address] [address] Mason Astudillo Platelet mean volume (Bld) [Entitic vol] 9.9 fL Normal 9.5-13.5 [facility] Comment on above: Performed By: #### P OCGLUC #### [facility] [address] [address] [address] Mason Astudillo PLT 130 103/ul Critically low 150-450 [facility] Comment on above: Performed By: #### P OCGLUC #### [facility] [address] [address] [address] Mason Astudillo RBC 4.82 106/ul Normal 4.70-6.10 [facility] Comment on above: Performed By: #### P OCGLUC #### [facility] [address] [place] [address] Dr. Mason Astudillo WBC 6.1 103/ul Normal 4.0-11.0 [facility] Comment on above: Performed By: #### P OCGLUC #### [facility] [address] [place] [address] Dr. Mason Astudillo PROF CHEM 8 (BAS METB)on Anion gap [Moles/Vol] 10.8 mmol/L Normal [facility] Comment on above: Performed By: #### U A #### [facility] [address] [place] [address] Dr. Mason Astudillo Calcium [Mass/Vol] 8.8 mg/dL Normal 8.5-10.1 [facility] Comment on above: Performed By: #### U A #### [facility] [address] [address] [address] Mason Astudillo Chloride [Moles/Vol] 103 mmol/L Normal 98-107 [facility] Comment on above: Performed By: #### U A #### [facility] [address] [place] [address] Dr. Mason Astudillo CO2 [Moles/Vol] 29.9 mmol/L Normal 21.0-32.0 [facility] Comment on above: Performed By: #### U A #### [facility] [address] [address] [address] Mason Astudillo Creatinine [Mass/Vol] 1.20 mg/dL Normal 0.70-1.30 [facility] Comment on above: Performed By: #### U A #### [facility] [address] [address] [address] Mason Astudillo EGFR-AF TURKS AND CAICOS ISLANDER >60 Normal >=60 [facility] Comment on above: Performed By: #### U A #### [facility] [address] [address] [address] Mason Astudillo EGFR-NON AF TURKS AND [place] ISLANDER 58 mL/min/1.73m2 Critically low >=60 [facility] Comment on above: Performed By: #### U A #### [facility] [address] [address] [address] Mason Astudillo Glucose [Mass/Vol] 202 mg/dL Critically high 74-106 T [facility] Comment on above: Performed By: #### U A #### [facility] [address] [address] [address] Mason Astudillo Potassium [Moles/Vol] 3.7 mmol/L Normal 3.5-5.1 [facility] Comment on above: Performed By: #### U A #### [facility] [address] [address] [address] Mason Astudillo Sodium [Moles/Vol] 140 mmol/L Normal 136-145 [facility] Comment on above: Performed By: #### U A #### [facility] [address] [address] [address] Mason Astudillo Urea nitrogen [Mass/Vol] 22.0 mg/dL Critically high 7.0-18.0 [facility] Comment on above: Performed By: #### U A #### [facility] [address] [address] [address] Mason Astudillo Urea nitrogen/Creatinine [Mass ratio] 18.3 mg/mg Normal [facility] Comment on above: Performed By: #### U A #### [facility] [address] [address] [address] Mason Astudillo XR KUB 1 VIEWon [...] BRISA SALAS Date: 2022-02-18 15:45 Normal [facility] VIT D 25-OH LABCORPon 2021 Vitamin D, 25-Hydroxy 27.3 ng/mL Critically low 30.0-100.0 [facility] Comment on above: Result Comment: Masha min D deficiency has been defined by the [place] [employer] and an Endocrine Society practice guideline as a level of serum 25-OH vitamin D less than 20 ng/mL (1,2). The Endocrine Society went on to further define vitamin D insufficiency as a level between 21 and 29 ng/mL (2). 1. IOM ([place] [employer]). 2010. Dietary reference intakes for calcium and D. [place]: The National Academies Press. 2. Hemalatha BOYER, [place], Kamla ROUSE, et al. Evaluation, treatment, and prevention of vitamin D deficiency: an Endocrine Society clinical practice guideline. JCEM. 2010; 96(7):1911-30. Performed By: #### A 1C #### [facility] [address] [address] [address] Mason Astudillo CBC AUTO DIFFon 02-06-2022 BASO # 0.0 103/ul Normal 0.0-0.1 [facility] Comment on above: Performed By: #### A 1C #### [facility] [address] [address] [address] aMson Astudillo Basophils/100 WBC (Bld) 0.4 % Normal 0.2-2.0 [facility] Comment on above: Performed By: #### A 1C #### [facility] [address] [place] [address] Dr. Mason Astudillo EO # 0.1 103/ul Normal 0.0-0.7 [facility] Comment on above: Performed By: #### A 1C #### [facility] [address] [place] [address] Dr. Mason Astudillo Eosinophils/100 WBC (Bld) 2.5 % Normal 0.9-7.0 [facility] Comment on above: Performed By: #### A 1C #### [facility] [address] [place] [address] Dr. Mason Astudillo Erythrocyte distribution width (RBC) [Ratio] 16.6 % Critically high 11.0-15.0 [facility] Comment on above: Performed By: #### A 1C #### [facility] [address] [place] [address] Dr. Mason Astudillo Hematocrit (Bld) [Volume fraction] 26.8 % Critically low 42.0-54.0 [facility] Comment on above: Performed By: #### A 1C #### [facility] [address] [place] [address] Dr. Mason Astudillo Hemoglobin (Bld) [Mass/Vol] 8.4 g/dL Critically low 14.0-18.0 [facility] Comment on above: Performed By: #### A 1C #### [facility] [address] [place] [address] Dr. Mason Astudillo IG # 0.12 10e3/ul Critically high 0.00-0.03 [facility] Comment on above: Performed By: #### A 1C #### [facility] [address] [place] [address] Dr. Mason Astudillo IG % 2.5 % Critically high 0.0-0.5 [facility] Comment on above: Performed By: #### A 1C #### [facility] [address] [place] [address] Dr. Mason Astudillo LYMPH # 0.9 103/ul Critically low 1.2-3.8 [facility] Comment on above: Performed By: #### A 1C #### [facility] [address] [place] [address] Dr. Mason Astudillo Lymphocytes/100 WBC (Bld) 18.1 % Critically low 20.5-60.0 [facility] Comment on above: Performed By: #### A 1C #### [facility] [address] [place] [address] Dr. Mason Astudillo MANUAL DIFF REQ NO Normal [facility] Comment on above: Performed By: #### A 1C #### [facility] [address] [place] [address] Dr. Mason Astudillo MCH (RBC) [Entitic mass] 27.7 pg Normal 25.9-34.0 [facility] Comment on above: Performed By: #### A 1C #### [facility] [address] [place] [address] Dr. Mason Astudillo MCHC (RBC) [Mass/Vol] 31.3 g/dL Normal 29.9-35.2 [facility] Comment on above: Performed By: #### A 1C #### [facility] [address] [place] [address] Dr. Mason Astudillo MCV (RBC) [Entitic vol] 88.4 fL Normal 80.0-94.0 [facility] Comment on above: Performed By: #### A 1C #### [facility] [address] [place] [address] Dr. Mason Astudillo MONO # 0.4 103/ul Normal 0.3-0.8 [facility] Comment on above: Performed By: #### A 1C #### [facility] [address] [place] [address] Dr. Mason Astudillo Monocytes/100 WBC (Bld) 9.1 % Normal 1.7-12.0 [facility] Comment on above: Performed By: #### A 1C #### [facility] [address] [place] [address] Dr. Mason Astudillo NEUT # 3.2 103/ul Normal 1.4-6.5 [facility] Comment on above: Performed By: #### A 1C #### [facility] [address] [address] [address] Mason Astudillo Neutrophils/100 WBC (Bld) 67.4 % Normal 43.0-75.0 [facility] Comment on above: Performed By: #### A 1C #### [facility] [address] [place] [address] Dr. Mason Astudillo Platelet mean volume (Bld) [Entitic vol] 10.2 fL Normal 9.5-13.5 [facility] Comment on above: Performed By: #### A 1C #### [facility] [address] [place] [address] Dr. Mason Astudillo PLT 135 103/ul Critically low 150-450 [facility] Comment on above: Performed By: #### A 1C #### [facility] [address] [place] [address] Dr. Mason Astudillo RBC 3.03 106/ul Critically low 4.70-6.10 [facility] Comment on above: Performed By: #### A 1C #### [facility] [address] [place] [address] Dr. Mason Astudillo WBC 4.7 103/ul Normal 4.0-11.0 [facility] Comment on above: Performed By: #### A 1C #### [facility] [address] [place] [address] Dr. Mason Astudillo GLYCOHEMOGLOBIN A1Con 2021 ADA RECOMMENDATION SEE BELOW Normal [facility] Comment on above: Result Comment: ADA RECOMMENDED LIMIT 4.0 - 6.0 ADA THERAPEUTIC TARGET < 7.0 ACTION SUGGESTED > 7.0 Performed By: #### A 1C #### [facility] [address] [place] [address] Dr. Mason Astudillo Glucose [Mass/Vol] 148 mg/dL Normal [facility] Comment on above: Performed By: #### A 1C #### [facility] [address] [place] [address] Dr. Mason Astudillo HbA1c (Bld) [Mass fraction] 6.8 % Critically high 4.5-6.2 [facility] Comment on above: Performed By: #### A 1C #### [facility] [address] [address] [address] Mason Astudillo POINT OF CARE GLUCOSEon 08-0 Glucose [Mass/Vol] 157 mg/dL Critically high 74-106 T [facility] Comment on above: Performed By: #### P OCGLUC #### [facility] [address] [address] [address] Mason Astudillo PROF CHEM 8 (BAS METB)on Anion gap [Moles/Vol] 10.5 mmol/L Normal [facility] Comment on above: Performed By: #### B MP #### [facility] [address] [address] [address] Mason Astudillo Calcium [Mass/Vol] 8.0 mg/dL Critically low 8.5-10.1 [facility] Comment on above: Performed By: #### B MP #### [facility] [address] [place] [address] Dr. Mason Astudillo Chloride [Moles/Vol] 105 mmol/L Normal 98-107 [facility] Comment on above: Performed By: #### B MP #### [facility] [address] [address] [address] Mason Astudillo CO2 [Moles/Vol] 27.2 mmol/L Normal 21.0-32.0 [facility] Comment on above: Performed By: #### B MP #### [facility] [address] [address] [address] Mason Astudillo Creatinine [Mass/Vol] 1.11 mg/dL Normal 0.70-1.30 [facility] Comment on above: Performed By: #### B MP #### [facility] [address] [address] [address] Mason Astudillo EGFR-AF TURKS AND CAICOS ISLANDER >60 Normal >=60 [facility] Comment on above: Performed By: #### B MP #### [facility] [address] [address] [address] Mason Astudillo EGFR-NON AF TURKS AND CAICOS ISLANDER >60 Normal >=60 [facility] Comment on above: Performed By: #### B MP #### [facility] [address] [address] [address] Mason Astudillo Glucose [Mass/Vol] 174 mg/dL Critically high 74-106 T [facility] Comment on above: Performed By: #### B MP #### [facility] [address] [place] [address] Dr. Mason Astudillo Potassium [Moles/Vol] 3.7 mmol/L Normal 3.5-5.1 [facility] Comment on above: Performed By: #### B MP #### [facility] [address] [place] [address] Dr. Mason Astudillo Sodium [Moles/Vol] 139 mmol/L Normal 136-145 [facility] Comment on above: Performed By: #### B MP #### [facility] [address] [place] [address] Dr. Mason Astudillo Urea nitrogen [Mass/Vol] 19.0 mg/dL Critically high 7.0-18.0 [facility] Comment on above: Performed By: #### B MP #### [facility] [address] [place] [address] Dr. Mason Astudillo Urea nitrogen/Creatinine [Mass ratio] 17.1 mg/mg Normal [facility] Comment on above: Performed By: #### B MP #### [facility] [address] [place] [address] Dr. Mason Astudillo CBC W MANUAL DIFFon 02-06-20 22 ATYPICAL LYMPH # Normal [facility] Comment on above: Performed By: #### C BC #### [facility] [address] [place] [address] Dr. Mason Astudillo ATYPICAL LYMPH % Normal [facility] Comment on above: Performed By: #### C BC #### [facility] [address] [place] [address] Dr. Mason Astudillo BAND # 0.0 103/ul Normal 0.0-0.3 [facility] Comment on above: Performed By: #### C BC #### [facility] [address] [place] [address] Dr. Mason Astudillo BAND % 0 % Normal 0-5 [facility] Comment on above: Performed By: #### C BC #### [facility] [address] [place] [address] Dr. Mason Astudillo BASOM # 0.06 103/ul Normal 0.00-0.10 [facility] Comment on above: Performed By: #### C BC #### [facility] [address] [place] [address] Dr. Mason Astudillo BASOM % 1.0 % Normal 0.2-2.0 [facility] Comment on above: Performed By: #### C BC #### [facility] [address] [place] [address] Dr. Mason Astudillo BLAST # Normal [facility] Comment on above: Performed By: #### C BC #### [facility] [address] [place] [address] Dr. Mason Astudillo BLAST % Normal [facility] Comment on above: Performed By: #### C BC #### [facility] [address] [place] [address] Dr. Mason Astudillo CORRECTED WBC Normal 4.0-11.0 [facility] Comment on above: Performed By: #### C BC #### [facility] [address] [place] [address] Dr. Mason Astudillo EOS # 0.17 103/ul Normal 0.00-0.70 [facility] Comment on above: Performed By: #### C BC #### [facility] [address] [place] [address] Dr. Mason Astudillo EOS% 3.0 % Normal 0.9-7.0 [facility] Comment on above: Performed By: #### C BC #### [facility] [address] [place] [address] Dr. Mason Astudillo HCT 27.4 % Critically low 42.0-54.0 [facility] Comment on above: Performed By: #### C BC #### [facility] [address] [place] [address] Dr. Mason Astudillo HGB 8.6 g/dl Critically low 14.0-18.0 [facility] Comment on above: Performed By: #### C BC #### [facility] [address] [address] [address] Mason Astudillo LYMPHM # 0.56 103/ul Critically low 1.20-3.80 [facility] Comment on above: Performed By: #### C BC #### [facility] [address] [place] [address] Dr. Mason Astudillo LYMPHM% 10.0 % Critically low 20.5-60.0 [facility] Comment on above: Performed By: #### C BC #### [facility] [address] [place] [address] Dr. Mason Astudillo MCH 27.7 pg Normal 25.9-34.0 [facility] Comment on above: Performed By: #### C BC #### [facility] [address] [place] [address] Dr. Mason Astudillo MCHC 31.4 g/dl Normal 29.9-35.2 [facility] Comment on above: Performed By: #### C BC #### [facility] [address] [place] [address] Dr. Mason Astudillo MCV 88.1 fL Normal 80.0-94.0 [facility] Comment on above: Performed By: #### C BC #### [facility] [address] [place] [address] Dr. Mason Astudillo METAMYELOCYTE # Normal [facility] Comment on above: Performed By: #### C BC #### [facility] [address] [place] [address] Dr. Mason Astudillo METAMYELOCYTE % Normal [facility] Comment on above: Performed By: #### C BC #### [facility] [address] [place] [address] Dr. Mason Astudillo MONOM# 0.34 103/ul Normal 0.30-0.80 [facility] Comment on above: Performed By: #### C BC #### [facility] [address] [place] [address] Dr. Mason Astudillo MONOM% 6.0 % Normal 1.7-12.0 [facility] Comment on above: Performed By: #### C BC #### [facility] [address] [place] [address] Dr. Mason Astudillo MPV 10.5 fL Normal 9.5-13.5 [facility] Comment on above: Performed By: #### C BC #### [facility] [address] [place] [address] Dr. Mason Astudillo MYELOCYTE # Normal [facility] Comment on above: Performed By: #### C BC #### [facility] [address] [place] [address] Dr. Mason Astudillo MYELOCYTE % Normal [facility] Comment on above: Performed By: #### C BC #### [facility] [address] [place] [address] Dr. Mason Astudillo NRBC Normal [facility] Comment on above: Performed By: #### C BC #### [facility] [address] [place] [address] Dr. Mason Astudillo OVALOCYTES 1+ Normal [facility] Comment on above: Performed By: #### C BC #### [facility] [address] [place] [address] Dr. Mason Astudillo PLT 124 103/ul Critically low 150-450 [facility] Comment on above: Performed By: #### C BC #### [facility] [address] [place] [address] Dr. Mason Astudillo RBC 3.11 106/ul Critically low 4.70-6.10 [facility] Comment on above: Performed By: #### C BC #### [facility] [address] [place] [address] Dr. Mason Astudillo RDW 15.9 % Critically high 11.0-15.0 [facility] Comment on above: Performed By: #### C BC #### [facility] [address] [place] [address] Dr. Mason Astudillo SEG # 4.48 103/ul Normal 1.40-6.50 [facility] Comment on above: Performed By: #### C BC #### [facility] [address] [address] [address] Mason Astudillo SEG % 80.0 % Critically high 43.0-75.0 [facility] Comment on above: Performed By: #### C BC #### [facility] [address] [address] [address] Mason Astudillo WBC 5.6 103/ul Normal 4.0-11.0 [facility] Comment on above: Performed By: #### C BC #### [facility] [address] [address] [address] Mason Astudillo POINT OF CARE GLUCOSEon Glucose [Mass/Vol] 260 mg/dL Critically high 74-106 [facility] Comment on above: Performed By: #### P OCGLUC #### [facility] [address] [place] [address] Dr. Mason Astudillo Glucose [Mass/Vol] 165 mg/dL Critically high 74-106 [facility] Comment on above: Performed By: #### A 1C #### [facility] [address] [place] [address] Dr. Mason Astudillo Glucose [Mass/Vol] 147 mg/dL Critically high 74-106 [facility] Comment on above: Performed By: #### C BC #### [facility] [address] [place] [address] Dr. Mason Astudillo PROF CHEM 8 (BAS METB)on Anion gap [Moles/Vol] 11.0 mmol/L Normal [facility] Comment on above: Performed By: #### U A #### [facility] [address] [place] [address] Dr. Mason Astudillo Calcium [Mass/Vol] 8.0 mg/dL Critically low 8.5-10.1 [facility] Comment on above: Performed By: #### U A #### [facility] [address] [place] [address] Dr. Mason Asutdillo Chloride [Moles/Vol] 106 mmol/L Normal 98-107 [facility] Comment on above: Performed By: #### U A #### [facility] [address] [address] [address] Mason Astudillo CO2 [Moles/Vol] 26.7 mmol/L Normal 21.0-32.0 [facility] Comment on above: Performed By: #### U A #### [facility] [address] [address] [address] Mason Astudillo Creatinine [Mass/Vol] 1.22 mg/dL Normal 0.70-1.30 [facility] Comment on above: Performed By: #### U A #### [facility] [address] [address] [address] Mason Astudillo EGFR-AF TURKS AND CAICOS ISLANDER >60 Normal >=60 [facility] Comment on above: Performed By: #### U A #### [facility] [address] [address] [address] Mason Astudillo EGFR-NON AF TURKS AND [place] ISLANDER 56 mL/min/1.73m2 Critically low >=60 [facility] Comment on above: Performed By: #### U A #### [facility] [address] [address] [address] Mason Astudillo Glucose [Mass/Vol] 147 mg/dL Critically high 74-106 T [facility] Comment on above: Performed By: #### U A #### [facility] [address] [address] [address] Mason Astudillo Potassium [Moles/Vol] 3.7 mmol/L Normal 3.5-5.1 [facility] Comment on above: Performed By: #### U A #### [facility] [address] [address] [address] Mason Astudillo Sodium [Moles/Vol] 140 mmol/L Normal 136-145 [facility] Comment on above: Performed By: #### U A #### [facility] [address] [address] [address] Mason Astudillo Urea nitrogen [Mass/Vol] 17.0 mg/dL Normal 7.0-18.0 [facility] Comment on above: Performed By: #### U A #### [facility] [address] [address] [address] Mason Astudillo Urea nitrogen/Creatinine [Mass ratio] 13.9 mg/mg Normal [facility] Comment on above: Performed By: #### U A #### [facility] [address] [place] [address] Dr. Mason Astudillo CBC AUTO DIFFon 02-04-2022 BASO # 0.0 103/ul Normal 0.0-0.1 [facility] Comment on above: Performed By: #### C BC #### [facility] [address] [place] [address] Dr. Mason Astudillo Basophils/100 WBC (Bld) 0.2 % Normal 0.2-2.0 [facility] Comment on above: Performed By: #### C BC #### [facility] [address] [place] [address] Dr. Mason Astudillo EO # 0.2 103/ul Normal 0.0-0.7 [facility] Comment on above: Performed By: #### C BC #### [facility] [address] [place] [address] Dr. Mason Astudillo Eosinophils/100 WBC (Bld) 3.4 % Normal 0.9-7.0 [facility] Comment on above: Performed By: #### C BC #### [facility] [address] [place] [address] Dr. Mason Astudillo Erythrocyte distribution width (RBC) [Ratio] 15.6 % Critically high 11.0-15.0 [facility] Comment on above: Performed By: #### C BC #### [facility] [address] [place] [address] Dr. Mason Astudillo Hematocrit (Bld) [Volume fraction] 26.1 % Critically low 42.0-54.0 [facility] Comment on above: Performed By: #### C BC #### [facility] [address] [place] [address] Dr. Mason Astudillo Hemoglobin (Bld) [Mass/Vol] 8.2 g/dL Critically low 14.0-18.0 [facility] Comment on above: Performed By: #### C BC #### [facility] [address] [place] [address] Dr. Mason Astudillo IG # 0.06 10e3/ul Critically high 0.00-0.03 [facility] Comment on above: Performed By: #### C BC #### [facility] [address] [place] [address] Dr. Mason Astudillo IG % 1.4 % Critically high 0.0-0.5 [facility] Comment on above: Performed By: #### C BC #### [facility] [address] [place] [address] Dr. Mason Astudillo LYMPH # 0.6 103/ul Critically low 1.2-3.8 [facility] Comment on above: Performed By: #### C BC #### [facility] [address] [place] [address] Dr. Mason Astudillo Lymphocytes/100 WBC (Bld) 14.3 % Critically low 20.5-60.0 [facility] Comment on above: Performed By: #### C BC #### [facility] [address] [place] [address] Dr. Mason Astudillo MANUAL DIFF REQ NO Normal [facility] Comment on above: Performed By: #### C BC #### [facility] [address] [place] [address] Dr. Mason Astudillo MCH (RBC) [Entitic mass] 27.4 pg Normal 25.9-34.0 [facility] Comment on above: Performed By: #### C BC #### [facility] [address] [place] [address] Dr. Mason Astudillo MCHC (RBC) [Mass/Vol] 31.4 g/dL Normal 29.9-35.2 [facility] Comment on above: Performed By: #### C BC #### [facility] [address] [place] [address] Dr. Mason Astudillo MCV (RBC) [Entitic vol] 87.3 fL Normal 80.0-94.0 [facility] Comment on above: Performed By: #### C BC #### [facility] [address] [place] [address] Dr. Mason Astudillo MONO # 0.5 103/ul Normal 0.3-0.8 [facility] Comment on above: Performed By: #### C BC #### [facility] [address] [place] [address] Dr. Mason Astudillo Monocytes/100 WBC (Bld) 10.4 % Normal 1.7-12.0 [facility] Comment on above: Performed By: #### C BC #### [facility] [address] [place] [address] Dr. Mason Astudillo NEUT # 3.1 103/ul Normal 1.4-6.5 [facility] Comment on above: Performed By: #### C BC #### [facility] [address] [place] [address] Dr. Mason Astudillo Neutrophils/100 WBC (Bld) 70.3 % Normal 43.0-75.0 [facility] Comment on above: Performed By: #### C BC #### [facility] [address] [place] [address] Dr. Mason Astudillo Platelet mean volume (Bld) [Entitic vol] 10.5 fL Normal 9.5-13.5 [facility] Comment on above: Performed By: #### C BC #### [facility] [address] [place] [address] Dr. Mason Astudillo PLT 105 103/ul Critically low 150-450 [facility] Comment on above: Performed By: #### C BC #### [facility] [address] [place] [address] Dr. Mason Astudillo RBC 2.99 106/ul Critically low 4.70-6.10 [facility] Comment on above: Performed By: #### C BC #### [facility] [address] [place] [address] Dr. Mason Astudillo WBC 4.4 103/ul Normal 4.0-11.0 [facility] Comment on above: Performed By: #### C BC #### [facility] [address] [place] [address] Dr. Mason Astudillo ECHOCARDIO M/2D COMPLETEon 0 02-04-2022 ECHOCARDIO M/2D COMPLETE Patient: BEN GUADALUPE Exam Date: 02/04/2022 : 1935 Gender:M Ordering : DR COLTON CASTELLON . Admission #: [id number] Family : SHAIKH Samantha ELLIOTT . Order #: [id number] CLICK HERE TO VIEW EXAM ECHOCARDIOGRAM REPORT [...] M.D. on 02/04/2022 at 13:39 Normal [facility] POINT OF CARE GLUCOSEon 08-0 Glucose [Mass/Vol] 262 mg/dL Critically high 74-106 [facility] Comment on above: Performed By: #### C BC #### [facility] [address] [address] [address] Mason Astudillo Glucose [Mass/Vol] 167 mg/dL Critically high 74-106 [facility] Comment on above: Performed By: #### C BC #### [facility] [address] [place] [address] Dr. Mason Astudillo Glucose [Mass/Vol] 158 mg/dL Critically high 74-106 [facility] Comment on above: Performed By: #### P OCGLUC #### [facility] [address] [place] [address] Dr. Mason Astudillo PRBC LEUKOREDUCEDon 02-05-20 ABO and Rh group Nom (Bld) Cross Match Result Compatible Unit Blood Type A Neg Unit Number [id number] Status Information Transfused Product ID Red Blood Cells Product Code [id number] Cross Match Result Compatible Unit Blood Type A Neg Unit Number [id number] Status Information Transfused Product ID Red Blood Cells Product Code [id number] Normal [facility] Comment on above: Performed By: #### P SAD #### [facility] [address] [place] [address] Dr. Mason Astudillo PROF CHEM 8 (BAS METB)on Anion gap [Moles/Vol] 11.5 mmol/L Normal [facility] Comment on above: Performed By: #### C BC #### [facility] [address] [place] [address] Dr. Mason Astudillo Calcium [Mass/Vol] 7.4 mg/dL Critically low 8.5-10.1 [facility] Comment on above: Performed By: #### C BC #### [facility] [address] [place] [address] Dr. Mason Astudillo Chloride [Moles/Vol] 106 mmol/L Normal 98-107 [facility] Comment on above: Performed By: #### C BC #### [facility] [address] [place] [address] Dr. Mason Astudillo CO2 [Moles/Vol] 25.8 mmol/L Normal 21.0-32.0 [facility] Comment on above: Performed By: #### C BC #### [facility] [address] [place] [address] Dr. Mason Astudillo Creatinine [Mass/Vol] 1.07 mg/dL Normal 0.70-1.30 [facility] Comment on above: Performed By: #### C BC #### [facility] [address] [place] [address] Dr. Mason Astudillo EGFR-AF TURKS AND CAICOS ISLANDER >60 Normal >=60 [facility] Comment on above: Performed By: #### C BC #### [facility] [address] [place] [address] Dr. Mason Astudillo EGFR-NON AF TURKS AND CAICOS ISLANDER >60 Normal >=60 [facility] Comment on above: Performed By: #### C BC #### [facility] [address] [place] [address] Dr. Mason Astudillo Glucose [Mass/Vol] 165 mg/dL Critically high 74-106 T [facility] Comment on above: Performed By: #### C BC #### [facility] [address] [place] [address] Dr. Mason Astudillo Potassium [Moles/Vol] 3.3 mmol/L Critically low 3.5-5.1 [facility] Comment on above: Performed By: #### C BC #### [facility] [address] [place] [address] Dr. Mason Astudillo Sodium [Moles/Vol] 140 mmol/L Normal 136-145 [facility] Comment on above: Performed By: #### C BC #### [facility] [address] [place] [address] Dr. Mason Astudillo Urea nitrogen [Mass/Vol] 19.0 mg/dL Critically high 7.0-18.0 [facility] Comment on above: Performed By: #### C BC #### [facility] [address] [place] [address] Dr. Mason Astudillo Urea nitrogen/Creatinine [Mass ratio] 17.8 mg/mg Normal [facility] Comment on above: Performed By: #### C BC #### [facility] [address] [place] [address] Dr. Mason Astudillo ABO RH RETYPEon 02-03-2022 ABO and Rh group Nom (Bld) DONE Normal [facility] Comment on above: Performed By: #### P OCGLUC #### [facility] [address] [place] [address] Dr. Mason Astudillo CBC AUTO DIFFon 02-03-2022 Basophils/100 WBC (Bld) 0.5 % Normal 0.2-2.0 [facility] Comment on above: Performed By: #### U A #### [facility] [address] [place] [address] Dr. Mason Astudillo EO # 0.2 103/ul Normal 0.0-0.7 [facility] Comment on above: Performed By: #### U A #### [facility] [address] [place] [address] Dr. Mason Astudillo Eosinophils/100 WBC (Bld) 2.9 % Normal 0.9-7.0 [facility] Comment on above: Performed By: #### U A #### [facility] [address] [place] [address] Dr. Mason Astudillo Erythrocyte distribution width (RBC) [Ratio] 15.7 % Critically high 11.0-15.0 [facility] Comment on above: Performed By: #### U A #### [facility] [address] [place] [address] Dr. Mason Astudillo Hematocrit (Bld) [Volume fraction] 31.1 % Critically low 42.0-54.0 [facility] Comment on above: Performed By: #### U A #### [facility] [address] [place] [address] Dr. Mason Astudillo Hemoglobin (Bld) [Mass/Vol] 9.7 g/dL Critically low 14.0-18.0 [facility] Comment on above: Result Comment: rcvd . 2 units of packed red cells. Performed By: #### U A #### [facility] [address] [place] [address] Dr. Mason Astudillo IG # 0.05 10e3/ul Critically high 0.00-0.03 [facility] Comment on above: Performed By: #### U A #### [facility] [address] [place] [address] Dr. Mason Astudillo IG % 0.8 % Critically high 0.0-0.5 [facility] Comment on above: Performed By: #### U A #### [facility] [address] [place] [address] Dr. Mason Astudillo LYMPH # 1.1 103/ul Critically low 1.2-3.8 [facility] Comment on above: Performed By: #### U A #### [facility] [address] [place] [address] Dr. Mason Astudillo Lymphocytes/100 WBC (Bld) 19.3 % Critically low 20.5-60.0 [facility] Comment on above: Performed By: #### U A #### [facility] [address] [place] [address] Dr. Mason Astudillo MCH (RBC) [Entitic mass] 27.2 pg Normal 25.9-34.0 [facility] Comment on above: Performed By: #### U A #### [facility] [address] [place] [address] Dr. Mason Astudillo MCHC (RBC) [Mass/Vol] 31.2 g/dL Normal 29.9-35.2 [facility] Comment on above: Performed By: #### U A #### [facility] [address] [place] [address] Dr. Mason Astudillo MCV (RBC) [Entitic vol] 87.1 fL Normal 80.0-94.0 [facility] Comment on above: Performed By: #### U A #### [facility] [address] [place] [address] Dr. Mason Atsudillo MONO # 0.6 103/ul Normal 0.3-0.8 [facility] Comment on above: Performed By: #### U A #### [facility] [address] [place] [address] Dr. Mason Astudillo Monocytes/100 WBC (Bld) 10.7 % Normal 1.7-12.0 [facility] Comment on above: Performed By: #### U A #### [facility] [address] [place] [address] Dr. Mason Astudillo NEUT # 3.9 103/ul Normal 1.4-6.5 [facility] Comment on above: Performed By: #### U A #### [facility] [address] [place] [address] Dr. Mason Astudillo Neutrophils/100 WBC (Bld) 65.8 % Normal 43.0-75.0 [facility] Comment on above: Performed By: #### U A #### [facility] [address] [place] [address] Dr. Mason Astudillo Platelet mean volume (Bld) [Entitic vol] 10.5 fL Normal 9.5-13.5 [facility] Comment on above: Performed By: #### U A #### [facility] [address] [place] [address] Dr. Mason Astudillo PLT 147 103/ul Critically low 150-450 [facility] Comment on above: Performed By: #### U A #### [facility] [address] [place] [address] Dr. Mason Astudillo RBC 3.57 106/ul Critically low 4.70-6.10 [facility] Comment on above: Performed By: #### U A #### [facility] [address] [place] [address] Dr. Mason Astudillo WBC 5.9 103/ul Normal 4.0-11.0 [facility] Comment on above: Performed By: #### U A #### [facility] [address] [place] [address] Dr. Mason Astudillo BASO # 0.0 103/ul Normal 0.0-0.1 [facility] Comment on above: Performed By: #### U A #### [facility] [address] [place] [address] Dr. Mason Astudillo Basophils/100 WBC (Bld) 0.3 % Normal 0.2-2.0 [facility] Comment on above: Performed By: #### U A #### [facility] [address] [place] [address] Dr. Mason Astudillo EO # 0.1 103/ul Normal 0.0-0.7 [facility] Comment on above: Performed By: #### U A #### [facility] [address] [place] [address] Dr. Mason Astudillo Eosinophils/100 WBC (Bld) 2.5 % Normal 0.9-7.0 [facility] Comment on above: Performed By: #### U A #### [facility] [address] [place] [address] Dr. Mason Astudillo Erythrocyte distribution width (RBC) [Ratio] 15.9 % Critically high 11.0-15.0 [facility] Comment on above: Performed By: #### U A #### [facility] [address] [place] [address] Dr. Mason Astudillo Hematocrit (Bld) [Volume fraction] 22.3 % Critically low 42.0-54.0 [facility] Comment on above: Result Comment: Test Repeated. Critical Value Verified Performed By: #### U A #### [facility] [address] [place] [address] Dr. Mason Astudillo Hemoglobin (Bld) [Mass/Vol] 6.7 g/dL Critically low 14.0-18.0 [facility] Comment on above: Result Comment: Test Repeated. Critical Value Verified Performed By: #### U A #### [facility] [address] [place] [address] Dr. Mason Astudillo IG # 0.02 10e3/ul Normal 0.00-0.03 [facility] Comment on above: Performed By: #### U A #### [facility] [address] [place] [address] Dr. Mason Astudillo IG % 0.5 % Normal 0.0-0.5 [facility] Comment on above: Performed By: #### U A #### [facility] [address] [place] [address] Dr. Mason Astudillo LYMPH # 0.7 103/ul Critically low 1.2-3.8 [facility] Comment on above: Performed By: #### U A #### [facility] [address] [place] [address] Dr. Mason Astudillo Lymphocytes/100 WBC (Bld) 19.5 % Critically low 20.5-60.0 [facility] Comment on above: Performed By: #### U A #### [facility] [address] [place] [address] Dr. Mason Astudillo MANUAL DIFF REQ NO Normal [facility] Comment on above: Performed By: #### U A #### [facility] [address] [place] [address] Dr. Mason Astudillo MCH (RBC) [Entitic mass] 25.8 pg Critically low 25.9-34.0 [facility] Comment on above: Performed By: #### U A #### [facility] [address] [place] [address] Dr. Mason Astudillo MCHC (RBC) [Mass/Vol] 30.0 g/dL Normal 29.9-35.2 [facility] Comment on above: Performed By: #### U A #### [facility] [address] [place] [address] Dr. Mason Astudillo MCV (RBC) [Entitic vol] 85.8 fL Normal 80.0-94.0 [facility] Comment on above: Performed By: #### U A #### [facility] [address] [place] [address] Dr. Mason Astudillo MONO # 0.4 103/ul Normal 0.3-0.8 [facility] Comment on above: Performed By: #### U A #### [facility] [address] [place] [address] Dr. Mason Astudillo Monocytes/100 WBC (Bld) 11.8 % Normal 1.7-12.0 [facility] Comment on above: Performed By: #### U A #### [facility] [address] [place] [address] Dr. Maosn Astudillo NEUT # 2.4 103/ul Normal 1.4-6.5 [facility] Comment on above: Performed By: #### U A #### [facility] [address] [place] [address] Dr. Mason Astudillo Neutrophils/100 WBC (Bld) 65.4 % Normal 43.0-75.0 [facility] Comment on above: Performed By: #### U A #### [facility] [address] [place] [address] Dr. Mason Astudillo Platelet mean volume (Bld) [Entitic vol] 10.7 fL Normal 9.5-13.5 [facility] Comment on above: Performed By: #### U A #### [facility] [address] [place] [address] Dr. Mason Astudillo PLT 103 103/ul Critically low 150-450 [facility] Comment on above: Performed By: #### U A #### [facility] [address] [place] [address] Dr. Mason Astudillo RBC 2.60 106/ul Critically low 4.70-6.10 [facility] Comment on above: Performed By: #### U A #### [facility] [address] [place] [address] Dr. Mason Astudillo WBC 3.7 103/ul Critically low 4.0-11.0 [facility] Comment on above: Performed By: #### U A #### [facility] [address] [place] [address] Dr. Mason Astudillo IRON AND TIBCon 02-03-2022 % SATURATION 46.9 % Normal [facility] Comment on above: Performed By: #### U A #### [facility] [address] [place] [address] Dr. Mason Astudillo Iron [Mass/Vol] 150.0 ug/dL Normal 65.0-175.0 [facility] Comment on above: Performed By: #### U A #### [facility] [address] [place] [address] Dr. Mason Astudillo TIBC DIRECT 320.0 ug/dL Normal 250.0-450.0 [facility] Comment on above: Performed By: #### U A #### [facility] [address] [address] [address] Mason Astudillo POINT OF CARE GLUCOSEon 01-06 Glucose [Mass/Vol] 201 mg/dL Critically high [address] [place] [address] Comment on above: Performed By: #### U A #### [facility] [address] [place] [address] Dr. Mason Astudillo Glucose [Mass/Vol] 152 mg/dL Critically high [address] [place] [address] Comment on above: Performed By: #### P OCGLUC #### [facility] [address] [place] [address] Dr. Mason Astudillo Glucose [Mass/Vol] 242 mg/dL Critically high [address] [place] [address] Comment on above: Performed By: #### A 1C #### [facility] [address] [place] [address] Dr. Mason Astudillo PROF CHEM 8 (BAS METB)on Anion gap [Moles/Vol] 11.4 mmol/L Normal [facility] Comment on above: Performed By: #### B MP #### [facility] [address] [place] [address] Dr. Mason Astudillo Calcium [Mass/Vol] 7.5 mg/dL Critically low 8.5-10.1 [facility] Comment on above: Performed By: #### B MP #### [facility] [address] [place] [address] Dr. Mason Astudillo Chloride [Moles/Vol] 106 mmol/L Normal 98-107 [facility] Comment on above: Performed By: #### B MP #### [facility] [address] [place] [address] Dr. Mason Astudillo CO2 [Moles/Vol] 26.8 mmol/L Normal 21.0-32.0 [facility] Comment on above: Performed By: #### B MP #### [facility] [address] [place] [address] Dr. Mason Astudillo Creatinine [Mass/Vol] 1.26 mg/dL Normal 0.70-1.30 [facility] Comment on above: Performed By: #### B MP #### [facility] [address] [address] [address] Mason Astudillo EGFR-AF TURKS AND CAICOS ISLANDER >60 Normal >=60 [facility] Comment on above: Performed By: #### B MP #### [facility] [address] [address] [address] Mason Astudillo EGFR-NON AF TURKS AND CAICOS ISLANDER 54 mL/min/1.73m2 Critically low >=60 [facility] Comment on above: Performed By: #### B MP #### [facility] [address] [address] [address] Mason Astudillo Glucose [Mass/Vol] 160 mg/dL Critically high 74-106 T [facility] Comment on above: Performed By: #### B MP #### [facility] [address] [place] [address] Dr. Mason Astudillo Potassium [Moles/Vol] 3.2 mmol/L Critically low 3.5-5.1 [facility] Comment on above: Performed By: #### B MP #### [facility] [address] [address] [address] Mason Astudillo Sodium [Moles/Vol] 141 mmol/L Normal 136-145 [facility] Comment on above: Performed By: #### B MP #### [facility] [address] [address] [address] Mason Astudillo Urea nitrogen [Mass/Vol] 30.0 mg/dL Critically high 7.0-18.0 [facility] Comment on above: Performed By: #### B MP #### [facility] [address] [address] [address] Mason Astudillo Urea nitrogen/Creatinine [Mass ratio] 23.8 mg/mg Normal [facility] Comment on above: Performed By: #### B MP #### [facility] [address] [address] [address] Mason Astudillo TYPE AND SCREENon 02-03-2022 TYPE AND SCREEN Negative Normal [facility] Comment on above: Performed By: #### T NS #### [facility] [address] [place] [address] Dr. Mason Astudillo BNPon 02-02-2022 Natriuretic peptide B (Bld) [Mass/Vol] 154.0 pg/mL Normal <=1,800.0 [facility] Comment on above: Performed By: #### P SAD #### [facility] [address] [place] [address] Dr. Mason Astudillo CARDIAC ANJELICA ADMITon 022 CK [Catalytic activity/Vol] 256 U/L Normal 39-308 [facility] Comment on above: Performed By: #### P OCGLUC #### [facility] [address] [place] [address] Dr. Mason Astudillo CK.MB [Mass/Vol] 3.30 ng/mL Normal <=3.60 [facility] Comment on above: Performed By: #### P OCGLUC #### [facility] [address] [place] [address] Dr. Mason Astudillo HSTROP 19.1 pg/mL Normal 4.0-76.1 [facility] Comment on above: Result Comment: CUT- OFF POINTS HAVE BEEN ESTABLISHED BASED ON THE FOURTH UNIVERSAL DEFINITIONS OF MYOCARDIAL INFARCTION. THE UPPER REFERENCE LIMIT (URL) OF TROPONIN, DEFINED THE 99TH PERCENTILE OF cTnI DISTRIBUTION IN A REFERENCE POPULATION, HAS BEEN CONFIRMED THE DECISION THRESHOLD FOR [place] DIAGNOSIS. Performed By: #### P OCGLUC #### [facility] [address] [place] [address] Dr. Mason Astudillo ABDELRAHMAN 304 ng/mL Critically high 16-96 [facility] Comment on above: Performed By: #### P OCGLUC #### [facility] [address] [place] [address] Dr. Mason Astudillo CBC AUTO DIFFon 02-02-2022 BASO # 0.0 103/ul Normal 0.0-0.1 [facility] Comment on above: Performed By: #### C BC #### [facility] [address] [place] [address] Dr. Mason Astudillo Basophils/100 WBC (Bld) 0.5 % Normal 0.2-2.0 [facility] Comment on above: Performed By: #### C BC #### [facility] [address] [place] [address] Dr. Mason Astudillo EO # 0.2 103/ul Normal 0.0-0.7 [facility] Comment on above: Performed By: #### C BC #### [facility] [address] [place] [address] Dr. Mason Astudillo Eosinophils/100 WBC (Bld) 2.4 % Normal 0.9-7.0 [facility] Comment on above: Performed By: #### C BC #### [facility] [address] [place] [address] Dr. Mason Astudillo Erythrocyte distribution width (RBC) [Ratio] 15.9 % Critically high 11.0-15.0 [facility] Comment on above: Performed By: #### C BC #### [facility] [address] [place] [address] Dr. Mason Astudillo Hematocrit (Bld) [Volume fraction] 27.9 % Critically low 42.0-54.0 [facility] Comment on above: Performed By: #### C BC #### [facility] [address] [place] [address] Dr. Mason Astudillo Hemoglobin (Bld) [Mass/Vol] 8.7 g/dL Critically low 14.0-18.0 [facility] Comment on above: Performed By: #### C BC #### [facility] [address] [place] [address] Dr. Mason Astudillo IG # 0.04 10e3/ul Critically high 0.00-0.03 [facility] Comment on above: Performed By: #### C BC #### [facility] [address] [place] [address] Dr. Msaon Astudillo IG % 0.6 % Critically high 0.0-0.5 [facility] Comment on above: Performed By: #### C BC #### [facility] [address] [place] [address] Dr. Mason Astudillo LYMPH # 1.3 103/ul Normal 1.2-3.8 [facility] Comment on above: Performed By: #### C BC #### [facility] [address] [place] [address] Dr. Mason Astudillo Lymphocytes/100 WBC (Bld) 20.1 % Critically low 20.5-60.0 [facility] Comment on above: Performed By: #### C BC #### [facility] [address] [place] [address] Dr. Mason Astudillo MANUAL DIFF REQ NO Normal [facility] Comment on above: Performed By: #### C BC #### [facility] [address] [place] [address] Dr. Mason Astudillo MCH (RBC) [Entitic mass] 26.1 pg Normal 25.9-34.0 [facility] Comment on above: Performed By: #### C BC #### [facility] [address] [place] [address] Dr. Mason Astudillo MCHC (RBC) [Mass/Vol] 31.2 g/dL Normal 29.9-35.2 [facility] Comment on above: Performed By: #### C BC #### [facility] [address] [place] [address] Dr. Mason Astudillo MCV (RBC) [Entitic vol] 83.8 fL Normal 80.0-94.0 [facility] Comment on above: Performed By: #### C BC #### [facility] [address] [place] [address] Dr. Mason Astudillo MONO # 0.7 103/ul Normal 0.3-0.8 [facility] Comment on above: Performed By: #### C BC #### [facility] [address] [place] [address] Dr. Mason Astudillo Monocytes/100 WBC (Bld) 11.1 % Normal 1.7-12.0 [facility] Comment on above: Performed By: #### C BC #### [facility] [address] [place] [address] Dr. Mason Astudillo NEUT # 4.1 103/ul Normal 1.4-6.5 [facility] Comment on above: Performed By: #### C BC #### [facility] [address] [place] [address] Dr. Mason Astudillo Neutrophils/100 WBC (Bld) 65.3 % Normal 43.0-75.0 [facility] Comment on above: Performed By: #### C BC #### [facility] [address] [place] [address] Dr. Mason Astudillo Platelet mean volume (Bld) [Entitic vol] 10.3 fL Normal 9.5-13.5 [facility] Comment on above: Performed By: #### C BC #### [facility] [address] [place] [address] Dr. Mason Astudillo PLT 145 103/ul Critically low 150-450 [facility] Comment on above: Performed By: #### C BC #### [facility] [address] [place] [address] Dr. Mason Astudillo RBC 3.33 106/ul Critically low 4.70-6.10 [facility] Comment on above: Performed By: #### C BC #### [facility] [address] [place] [address] Dr. Mason Astudillo WBC 6.2 103/ul Normal 4.0-11.0 [facility] Comment on above: Performed By: #### C BC #### [facility] [address] [place] [address] Dr. Mason Astudillo Covid-19 PCR ([facility])on 01-06 SARS-CoV-2 (COVID-19) RNA GARCÍA+probe Ql (Unsp spec) Not detected Normal NOT DETECTED [facility] Comment on above: Result Comment: When [...] for this test is supported by the [employer] of [employer] Service's declaration that [...] used). Performed By: #### A 1C #### [facility] [address] [place] [address] Dr. Mason Astudillo FREE T3on 02-02-2022 FREE T3 2.16 pg/mlL Critically low 2.18-3.98 [facility] Comment on above: Performed By: #### P SAD #### [facility] [address] [place] [address] Dr. Mason Astudillo FREE T4on 02-02-2022 Free T4 [Mass/Vol] 1.09 ng/dL Normal 0.76-1.46 [facility] Comment on above: Performed By: #### F T4 #### [facility] [address] [place] [address] Dr. Mason Astudillo GLYCOHEMOGLOBIN A1Con 2021 ADA RECOMMENDATION SEE BELOW Normal [facility] Comment on above: Result Comment: ADA RECOMMENDED LIMIT 4.0 - 6.0 ADA THERAPEUTIC TARGET < 7.0 ACTION SUGGESTED > 7.0 Performed By: #### A 1C #### [facility] [address] [place] [address] Dr. Mason Astudillo Glucose [Mass/Vol] 160 mg/dL Normal [facility] Comment on above: Performed By: #### A 1C #### [facility] [address] [place] [address] Dr. Mason Astudillo HbA1c (Bld) [Mass fraction] 7.2 % Critically high 4.5-6.2 [facility] Comment on above: Performed By: #### A 1C #### [facility] [address] [place] [address] Dr. Mason Astudillo MAGNESIUMon 02-02-2022 Magnesium [Mass/Vol] 2.1 mg/dL Normal 1.8-2.4 [facility] Comment on above: Performed By: #### P SAD #### [facility] [address] [address] [address] Mason Astudillo POINT OF CARE GLUCOSEon 01-06 Glucose [Mass/Vol] 226 mg/dL Critically high 74-106 [facility] Comment on above: Performed By: #### C BC #### [facility] [address] [address] [address] Mason Astudillo Glucose [Mass/Vol] 249 mg/dL Critically high 74-106 [facility] Comment on above: Performed By: #### C BC #### [facility] [address] [address] [address] Mason Astudillo Glucose [Mass/Vol] 195 mg/dL Critically high 74-106 [facility] Comment on above: Performed By: #### P SAD #### [facility] [address] [place] [address] Dr. Mason Astudillo PROF CHEM 8 (BAS METB)on Anion gap [Moles/Vol] 12.6 mmol/L Normal [facility] Comment on above: Performed By: #### P OCGLUC #### [facility] [address] [place] [address] Dr. Mason Astudillo Calcium [Mass/Vol] 8.1 mg/dL Critically low 8.5-10.1 [facility] Comment on above: Performed By: #### P OCGLUC #### [facility] [address] [place] [address] Dr. Mason Astudillo Chloride [Moles/Vol] 101 mmol/L Normal 98-107 [facility] Comment on above: Performed By: #### P OCGLUC #### [facility] [address] [place] [address] Dr. Mason Astudillo CO2 [Moles/Vol] 29.4 mmol/L Normal 21.0-32.0 [facility] Comment on above: Performed By: #### P OCGLUC #### [facility] [address] [place] [address] Dr. Mason Astudillo Creatinine [Mass/Vol] 1.68 mg/dL Critically high 0.70-1.30 [facility] Comment on above: Performed By: #### P OCGLUC #### [facility] [address] [address] [address] Mason Astudillo EGFR-AF TURKS AND [place] 47 mL/min/1.73m2 Critically low >=60 [facility] Comment on above: Result Comment: Prev iously reported as: (blank) On 02/02/2022 06:30 By [facility] Performed By: #### P OCGLUC #### [facility] [address] [address] [address] Mason Astudillo EGFR-NON AF TURKS AND [place]ER 39 mL/min/1.73m2 Critically low >=60 [facility] Comment on above: Result Comment: Prev iously reported as: (blank) On 02/02/2022 06:30 By [facility] Performed By: #### P OCGLUC #### [facility] [address] [place] [address] Dr. Mason Astudillo Glucose [Mass/Vol] 264 mg/dL Critically high 74-106 T [facility] Comment on above: Performed By: #### P OCGLUC #### [facility] [address] [address] [address] Mason Astudillo Potassium [Moles/Vol] 3.0 mmol/L Critically low 3.5-5.1 [facility] Comment on above: Performed By: #### P OCGLUC #### [facility] [address] [place] [address] Dr. Mason Astudillo Sodium [Moles/Vol] 140 mmol/L Normal 136-145 [facility] Comment on above: Performed By: #### P OCGLUC #### [facility] [address] [address] [address] Mason Astudillo Urea nitrogen [Mass/Vol] 45.0 mg/dL Critically high 7.0-18.0 [facility] Comment on above: Performed By: #### P OCGLUC #### [facility] [address] [address] [address] Mason Astudillo Urea nitrogen/Creatinine [Mass ratio] 26.8 mg/mg Normal [facility] Comment on above: Performed By: #### P OCGLUC #### [facility] [address] [address] [address] Mason Astudillo TROPONIN, HIGH SENSITIVITYon 02-02-2022 HSTROP 81.7 pg/mL Critically high 4.0-76.1 [facility] Comment on above: Result Comment: CUT- OFF POINTS HAVE BEEN ESTABLISHED BASED ON THE FOURTH UNIVERSAL DEFINITIONS OF MYOCARDIAL INFARCTION. THE UPPER REFERENCE LIMIT (URL) OF TROPONIN, DEFINED THE 99TH PERCENTILE OF cTnI DISTRIBUTION IN A REFERENCE POPULATION, HAS BEEN CONFIRMED THE DECISION THRESHOLD FOR [place] DIAGNOSIS. repeated Performed By: #### B MP #### [facility] [address] [address] [address] Mason Astudillo TSHon 02-02-2022 TSH 1.200 uIU/mL Normal 0.358-3.740 [facility] Comment on above: Performed By: #### C BC #### [facility] [address] [address] [address] Mason Astudillo XR CHEST 1 Von [...] CARMINA LOVE Date: 2022-02-02 06:45 Normal [facility] RENAL FUNCTION PANELon 01-11 Albumin [Mass/Vol] 3.7 g/dL Normal 3.4-5.0 [facility] Comment on above: Performed By: #### P OCGLUC #### [facility] [address] [address] [address] Mason Astudillo Calcium [Mass/Vol] 8.6 mg/dL Normal 8.5-10.1 [facility] Comment on above: Performed By: #### P OCGLUC #### [facility] [address] [address] [address] Mason Astudillo Chloride [Moles/Vol] 104 mmol/L Normal 98-107 [facility] Comment on above: Performed By: #### P OCGLUC #### [facility] [address] [address] [address] Mason Astudillo CO2 [Moles/Vol] 28.0 mmol/L Normal 21.0-32.0 [facility] Comment on above: Performed By: #### P OCGLUC #### [facility] [address] [address] [address] Mason Astudillo Creatinine [Mass/Vol] 1.25 mg/dL Normal 0.70-1.30 [facility] Comment on above: Performed By: #### P OCGLUC #### [facility] [address] [address] [address] Mason Astudillo EGFR-AF TURKS AND [place]IC[place] ISLANDER >60 Normal >=60 [facility] Comment on above: Performed By: #### P OCGLUC #### [facility] [address] [address] [address] Mason Astudillo EGFR-NON AF TURKS AND [place]ER 55 mL/min/1.73m2 Critically low >=60 [facility] Comment on above: Performed By: #### P OCGLUC #### [facility] [address] [address] [address] Mason Astudillo Glucose [Mass/Vol] 143 mg/dL Critically high 74-106 T [facility] Comment on above: Performed By: #### P OCGLUC #### [facility] [address] [address] [address] Mason Astudillo Phosphate [Mass/Vol] 2.9 mg/dL Normal 2.6-4.7 [facility] Comment on above: Performed By: #### P OCGLUC #### [facility] [address] [address] [address] Mason Astudillo Potassium [Moles/Vol] 3.6 mmol/L Normal 3.5-5.1 [facility] Comment on above: Performed By: #### P OCGLUC #### [facility] [address] [address] [address] Mason Astudillo Sodium [Moles/Vol] 142 mmol/L Normal 136-145 [facility] Comment on above: Performed By: #### P OCGLUC #### [facility] [address] [place] [address] Dr. Mason Astudillo Urea nitrogen [Mass/Vol] 19.0 mg/dL Critically high 7.0-18.0 [facility] Comment on above: Performed By: #### P OCGLUC #### [facility] [address] [place] [address] Dr. Mason Astudillo UA RANDOMon 01-11-2022 Bilirubin Ql (U) Negative Normal NEGATIVE [facility] Comment on above: Performed By: #### U A #### [facility] [address] [place] [address] Dr. Mason Astudillo Clarity (U) CLEAR Normal CLEAR [facility] Comment on above: Performed By: #### U A #### [facility] [address] [place] [address] Dr. Mason Astudillo Color (U) LT. YELLOW Normal YELLOW [facility] Comment on above: Performed By: #### U A #### [facility] [address] [place] [address] Dr. Mason Astudillo Glucose Ql (U) >1000 Abnormal NEGATIVE [facility] Comment on above: Performed By: #### U A #### [facility] [address] [place] [address] Dr. Mason Astudillo Hemoglobin Ql (U) Negative Normal NEGATIVE [facility] Comment on above: Performed By: #### U A #### [facility] [address] [place] [address] Dr. Mason Astudillo Ketones Ql (U) Negative Normal NEGATIVE [facility] Comment on above: Performed By: #### U A #### [facility] [address] [place] [address] Dr. Mason Astudillo LEUKOCYTES Negative Normal NEGATIVE [facility] Comment on above: Performed By: #### U A #### [facility] [address] [place] [address] Dr. Mason Astudillo Nitrite Ql (U) Negative Normal NEGATIVE [facility] Comment on above: Performed By: #### U A #### [facility] [address] [place] [address] Dr. Mason Astudillo pH (U) 6.5 [pH] Normal 5-9 [facility] Comment on above: Performed By: #### U A #### [facility] [address] [place] [address] Dr. Mason Astudillo SPEC GRAVITY 1.010 Normal 1.005-<=1.0 25 [facility] Comment on above: Performed By: #### U A #### [facility] [address] [place] [address] Dr. Mason Astudillo UA PROTEIN Negative Normal NEGATIVE/ TRACE [facility] Comment on above: Performed By: #### U A #### [facility] [address] [place] [address] Dr. Mason Astudillo Urobilinogen Qn (U) 0.2 {Lewis'U}/dL Normal 0.2 - 1. 0 [facility] Comment on above: Performed By: #### U A #### [facility] [address] [place] [address] Dr. Mason Astudillo URINE T PROTEIN CREAT RATIOo n 01-11-2022 Protein (U) [Mass/Vol] 23.7 mg/dL Critically high <=12.0 [facility] Comment on above: Performed By: #### A 1C #### [facility] [address] [place] [address] Dr. Mason Astudillo UR PROT CREAT RAT 0.20 Normal [facility] Comment on above: Performed By: #### A 1C #### [facility] [address] [place] [address] Dr. Mason Astudillo URINE CREAT 115.99 mg/dL Normal 20.00-300.0 0 [facility] Comment on above: Performed By: #### A 1C #### [facility] [address] [place] [address] Dr. Mason Astudillo US KIDNEYSon 01-09-2022 US [...] BRISA SALAS Date: 2022-01-09 17:44 Normal [facility] FOLATE ([facility])on 2 Folate 11.0 ng/mL Normal >3.0 [facility] Comment on above: Result Comment: A rum folate concentration of less than 3.1 ng/mL is considered to represent clinical deficiency. Performed By: #### P SAD #### [facility] [address] [place] [address] Dr. Mason Astudillo TRANSFERRINon 12-20-2021 Transferrin [Mass/Vol] 316 mg/dL Critically high 149-313 [facility] Comment on above: Performed By: #### A 1C #### [facility] [address] [address] [address] Mason Astudillo CBC AUTO DIFFon 12-18-2021 BASO # 0.0 103/ul Normal 0.0-0.1 [facility] Comment on above: Performed By: #### U A #### [facility] [address] [place] [address] Dr. Mason Astudillo Basophils/100 WBC (Bld) 0.3 % Normal 0.2-2.0 [facility] Comment on above: Performed By: #### U A #### [facility] [address] [place] [address] Dr. Mason Astudillo EO # 0.1 103/ul Normal 0.0-0.7 [facility] Comment on above: Performed By: #### U A #### [facility] [address] [place] [address] Dr. Mason Astudillo Eosinophils/100 WBC (Bld) 2.0 % Normal 0.9-7.0 [facility] Comment on above: Performed By: #### U A #### [facility] [address] [place] [address] Dr. Mason Astudillo Erythrocyte distribution width (RBC) [Ratio] 14.6 % Normal 11.0-15.0 [facility] Comment on above: Performed By: #### U A #### [facility] [address] [place] [address] Dr. Mason Astudillo Hematocrit (Bld) [Volume fraction] 35.6 % Critically low 42.0-54.0 [facility] Comment on above: Performed By: #### U A #### [facility] [address] [place] [address] Dr. Mason Astudillo Hemoglobin (Bld) [Mass/Vol] 10.7 g/dL Critically low 14.0-18.0 [facility] Comment on above: Performed By: #### U A #### [facility] [address] [place] [address] Dr. Mason Astudillo IG # 0.03 10e3/ul Normal 0.00-0.03 [facility] Comment on above: Performed By: #### U A #### [facility] [address] [place] [address] Dr. Mason Astudillo IG % 0.5 % Normal 0.0-0.5 [facility] Comment on above: Performed By: #### U A #### [facility] [address] [place] [address] Dr. Mason Astudillo LYMPH # 1.0 103/ul Critically low 1.2-3.8 [facility] Comment on above: Performed By: #### U A #### [facility] [address] [place] [address] Dr. Mason Astudillo Lymphocytes/100 WBC (Bld) 15.5 % Critically low 20.5-60.0 [facility] Comment on above: Performed By: #### U A #### [facility] [address] [place] [address] Dr. Mason Astudillo MANUAL DIFF REQ NO Normal [facility] Comment on above: Performed By: #### U A #### [facility] [address] [place] [address] Dr. Mason Astudillo MCH (RBC) [Entitic mass] 27.4 pg Normal 25.9-34.0 [facility] Comment on above: Performed By: #### U A #### [facility] [address] [place] [address] Dr. Mason Astudillo MCHC (RBC) [Mass/Vol] 30.1 g/dL Normal 29.9-35.2 [facility] Comment on above: Performed By: #### U A #### [facility] [address] [place] [address] Dr. Mason Astudillo MCV (RBC) [Entitic vol] 91.0 fL Normal 80.0-94.0 [facility] Comment on above: Performed By: #### U A #### [facility] [address] [place] [address] Dr. Mason Astudillo MONO # 0.5 103/ul Normal 0.3-0.8 [facility] Comment on above: Performed By: #### U A #### [facility] [address] [place] [address] Dr. Mason Astudillo Monocytes/100 WBC (Bld) 8.1 % Normal 1.7-12.0 [facility] Comment on above: Performed By: #### U A #### [facility] [address] [place] [address] Dr. Mason Astudillo NEUT # 4.5 103/ul Normal 1.4-6.5 [facility] Comment on above: Performed By: #### U A #### [facility] [address] [place] [address] Dr. Mason Astudillo Neutrophils/100 WBC (Bld) 73.6 % Normal 43.0-75.0 [facility] Comment on above: Performed By: #### U A #### [facility] [address] [place] [address] Dr. Mason Astudillo Platelet mean volume (Bld) [Entitic vol] 10.1 fL Normal 9.5-13.5 [facility] Comment on above: Performed By: #### U A #### [facility] [address] [place] [address] Dr. Mason Astudillo PLT 138 103/ul Critically low 150-450 [facility] Comment on above: Performed By: #### U A #### [facility] [address] [place] [address] Dr. Mason Astudillo RBC 3.91 106/ul Critically low 4.70-6.10 [facility] Comment on above: Performed By: #### U A #### [facility] [address] [place] [address] Dr. Mason Astudillo WBC 6.1 103/ul Normal 4.0-11.0 [facility] Comment on above: Performed By: #### U A #### [facility] [address] [place] [address] Dr. Mason Astudillo FERRITINon 12-18-2021 Ferritin [Mass/Vol] 16.0 ng/mL Critically low 26.0-388.0 [facility] Comment on above: Performed By: #### P OCGLUC #### [facility] [address] [place] [address] Dr. Mason Astudillo GLYCOHEMOGLOBIN A1Con 2021 ADA RECOMMENDATION SEE BELOW Normal [facility] Comment on above: Result Comment: ADA RECOMMENDED LIMIT 4.0 - 6.0 ADA THERAPEUTIC TARGET < 7.0 ACTION SUGGESTED > 7.0 Performed By: #### C BC #### [facility] [address] [place] [address] Dr. Mason Astudillo Glucose [Mass/Vol] 140 mg/dL Normal [facility] Comment on above: Performed By: #### C BC #### [facility] [address] [place] [address] Dr. Mason Astudillo HbA1c (Bld) [Mass fraction] 6.5 % Critically high 4.5-6.2 [facility] Comment on above: Performed By: #### C BC #### [facility] [address] [address] [address] Mason Astudillo IRON AND TIBCon 12-18-2021 % SATURATION 5.7 % Normal [facility] Comment on above: Performed By: #### P OCGLUC #### [facility] [address] [address] [address] Mason Astudillo Iron [Mass/Vol] 23.0 ug/dL Critically low 65.0-175.0 [facility] Comment on above: Performed By: #### P OCGLUC #### [facility] [address] [place] [address] Dr. Mason Astudillo TIBC DIRECT 413.0 ug/dL Normal 250.0-450.0 [facility] Comment on above: Performed By: #### P OCGLUC #### [facility] [address] [place] [address] Dr. Mason Astudillo PROF CHEM 8 (BAS METB)on Anion gap [Moles/Vol] 13.7 mmol/L Normal [facility] Comment on above: Performed By: #### P SAD #### [facility] [address] [place] [address] Dr. Mason Astudillo Calcium [Mass/Vol] 8.2 mg/dL Critically low 8.5-10.1 Th e [facility] Comment on above: Performed By: #### P SAD #### [facility] [address] [place] [address] Dr. Mason Astudillo Chloride [Moles/Vol] 105 mmol/L Normal 98-107 [facility] Comment on above: Performed By: #### P SAD #### [facility] [address] [place] [address] Dr. Mason Astudillo CO2 [Moles/Vol] 27.1 mmol/L Normal 21.0-32.0 [facility] Comment on above: Performed By: #### P SAD #### [facility] [address] [address] [address] Mason Astudillo Creatinine [Mass/Vol] 1.32 mg/dL Critically high 0.70-1.30 [facility] Comment on above: Performed By: #### P SAD #### [facility] [address] [address] [address] Mason Astudillo EGFR-AF TURKS AND CAICOS ISLANDER >60 Normal >=60 [facility] Comment on above: Performed By: #### P SAD #### [facility] [address] [address] [address] Mason Astudillo EGFR-NON AF TURKS AND CAICOS ISLANDER 52 mL/min/1.73m2 Critically low >=60 [facility] Comment on above: Performed By: #### P SAD #### [facility] [address] [place] [address] Dr. Mason Astudillo Glucose [Mass/Vol] 121 mg/dL Critically high 74-106 T [facility] Comment on above: Performed By: #### P SAD #### [facility] [address] [place] [address] Dr. Mason Astudillo Potassium [Moles/Vol] 3.8 mmol/L Normal 3.5-5.1 [facility] Comment on above: Performed By: #### P SAD #### [facility] [address] [place] [address] Dr. Mason Astudillo Sodium [Moles/Vol] 142 mmol/L Normal 136-145 [facility] Comment on above: Performed By: #### P SAD #### [facility] [address] [address] [address] Mason Astudillo Urea nitrogen [Mass/Vol] 27.0 mg/dL Critically high 7.0-18.0 [facility] Comment on above: Performed By: #### P SAD #### [facility] [address] [place] [address] Dr. Mason Astudillo Urea nitrogen/Creatinine [Mass ratio] 20.5 mg/mg Normal [facility] Comment on above: Performed By: #### P SAD #### [facility] [address] [place] [address] Dr. Mason Astudillo VITAMIN B12on 12-18-2021 Cobalamin (Vitamin B12) [Mass/Vol] 423.0 pg/mL Normal 193.0-986.0 [facility] Comment on above: Performed By: #### P OCGLUC #### [facility] [address] [place] [address] Dr. Mason Astudillo CBC AUTO DIFFon 11-08-2021 BASO # 0.0 103/ul Normal 0.0-0.1 [facility] Comment on above: Performed By: #### U A #### [facility] [address] [address] [address] Mason Astudillo Basophils/100 WBC (Bld) 0.3 % Normal 0.2-2.0 [facility] Comment on above: Performed By: #### U A #### [facility] [address] [place] [address] Dr. Mason Astudillo EO # 0.2 103/ul Normal 0.0-0.7 [facility] Comment on above: Performed By: #### U A #### [facility] [address] [place] [address] Dr. Mason Astudillo Eosinophils/100 WBC (Bld) 2.6 % Normal 0.9-7.0 [facility] Comment on above: Performed By: #### U A #### [facility] [address] [place] [address] Dr. Mason Astudillo Erythrocyte distribution width (RBC) [Ratio] 15.1 % Critically high 11.0-15.0 [facility] Comment on above: Performed By: #### U A #### [facility] [address] [place] [address] Dr. Maosn Astudillo Hematocrit (Bld) [Volume fraction] 36.2 % Critically low 42.0-54.0 [facility] Comment on above: Performed By: #### U A #### [facility] [address] [place] [address] Dr. Mason Astudillo Hemoglobin (Bld) [Mass/Vol] 11.7 g/dL Critically low 14.0-18.0 [facility] Comment on above: Performed By: #### U A #### [facility] [address] [place] [address] Dr. Mason Astudillo IG # 0.04 10e3/ul Critically high 0.00-0.03 [facility] Comment on above: Performed By: #### U A #### [facility] [address] [place] [address] Dr. Mason Astudillo IG % 0.7 % Critically high 0.0-0.5 [facility] Comment on above: Performed By: #### U A #### [facility] [address] [place] [address] Dr. Mason Astudillo LYMPH # 0.9 103/ul Critically low 1.2-3.8 [facility] Comment on above: Performed By: #### U A #### [facility] [address] [place] [address] Dr. Mason Astudillo Lymphocytes/100 WBC (Bld) 14.4 % Critically low 20.5-60.0 [facility] Comment on above: Performed By: #### U A #### [facility] [address] [place] [address] Dr. Mason Astudillo MANUAL DIFF REQ NO Normal [facility] Comment on above: Performed By: #### U A #### [facility] [address] [place] [address] Dr. Mason Astudillo MCH (RBC) [Entitic mass] 29.8 pg Normal 25.9-34.0 [facility] Comment on above: Performed By: #### U A #### [facility] [address] [place] [address] Dr. Mason Astudillo MCHC (RBC) [Mass/Vol] 32.3 g/dL Normal 29.9-35.2 [facility] Comment on above: Performed By: #### U A #### [facility] [address] [place] [address] Dr. Mason Astudillo MCV (RBC) [Entitic vol] 92.3 fL Normal 80.0-94.0 [facility] Comment on above: Performed By: #### U A #### [facility] [address] [address] [address] Mason Astudillo MONO # 0.5 103/ul Normal 0.3-0.8 [facility] Comment on above: Performed By: #### U A #### [facility] [address] [address] [address] Mason Astudillo Monocytes/100 WBC (Bld) 7.5 % Normal 1.7-12.0 [facility] Comment on above: Performed By: #### U A #### [facility] [address] [place] [address] Dr. Mason Astudillo NEUT # 4.5 103/ul Normal 1.4-6.5 [facility] Comment on above: Performed By: #### U A #### [facility] [address] [place] [address] Dr. Mason Astudillo Neutrophils/100 WBC (Bld) 74.5 % Normal 43.0-75.0 [facility] Comment on above: Performed By: #### U A #### [facility] [address] [place] [address] Dr. Mason Astudillo Platelet mean volume (Bld) [Entitic vol] 10.1 fL Normal 9.5-13.5 [facility] Comment on above: Performed By: #### U A #### [facility] [address] [place] [address] Dr. Mason Astudillo PLT 132 103/ul Critically low 150-450 [facility] Comment on above: Performed By: #### U A #### [facility] [address] [place] [address] Dr. Mason Astudillo RBC 3.92 106/ul Critically low 4.70-6.10 [facility] Comment on above: Performed By: #### U A #### [facility] [address] [place] [address] Dr. Mason Astudillo WBC 6.0 103/ul Normal 4.0-11.0 [facility] Comment on above: Performed By: #### U A #### [facility] [address] [place] [address] Dr. Mason Astudillo PROF CHEM 8 (BAS METB)on Anion gap [Moles/Vol] 8.9 mmol/L Normal [facility] Comment on above: Performed By: #### B MP #### [facility] [address] [place] [address] Dr. Mason Astudillo Calcium [Mass/Vol] 7.9 mg/dL Critically low 8.5-10.1 Th [facility] Comment on above: Performed By: #### B MP #### [facility] [address] [place] [address] Dr. Mason Astudillo Chloride [Moles/Vol] 101 mmol/L Normal 98-107 [facility] Comment on above: Performed By: #### B MP #### [facility] [address] [place] [address] Dr. Mason Astudillo CO2 [Moles/Vol] 28.3 mmol/L Normal 21.0-32.0 [facility] Comment on above: Performed By: #### B MP #### [facility] [address] [place] [address] Dr. Mason Astudillo Creatinine [Mass/Vol] 1.22 mg/dL Normal 0.70-1.30 [facility] Comment on above: Performed By: #### B MP #### [facility] [address] [place] [address] Dr. Mason Astudillo EGFR-AF TURKS AND CAICOS ISLANDER >60 Normal >=60 [facility] Comment on above: Performed By: #### B MP #### [facility] [address] [address] [address] Mason Astudillo EGFR-NON AF TURKS AND CAICOS ISLANDER 57 mL/min/1.73m2 Critically low >=60 [facility] Comment on above: Performed By: #### B MP #### [facility] [address] [place] [address] Dr. Mason Astudillo Glucose [Mass/Vol] 167 mg/dL Critically high 74-106 T [facility] Comment on above: Performed By: #### B MP #### [facility] [address] [place] [address] Dr. Mason Astudillo Potassium [Moles/Vol] 3.2 mmol/L Critically low 3.5-5.1 [facility] Comment on above: Performed By: #### B MP #### [facility] [address] [address] [address] Mason Astudillo Sodium [Moles/Vol] 135 mmol/L Critically low 136-145 Th e [facility] Comment on above: Performed By: #### B MP #### [facility] [address] [address] [address] Mason Astudillo Urea nitrogen [Mass/Vol] 23.0 mg/dL Critically high 7.0-18.0 [facility] Comment on above: Performed By: #### B MP #### [facility] [address] [address] [address] Mason Astudillo Urea nitrogen/Creatinine [Mass ratio] 18.9 mg/mg Normal [facility] Comment on above: Performed By: #### B MP #### [facility] [address] [address] [address] Mason Astudillo XR CHEST 2 Von [...] by: BRITTANIE CASILLAS Date: 2021-11-08 14:01 Normal [facility] Vital Signs Date Time Vital Sign Value Performing Clinician Facility 06-20-2023 10:46-0500 Blood Pressure Location Mekhi VERGARA [facility] 06-20-2023 10:46-0500 Diastolic blood pressure 79 mm[Hg] Mekhi VERGARA [facility] 06-20-2023 10:46-0500 Heart rate 68 /min Mekhi VERGARA [facility] 06-20-2023 10:46-0500 Respiratory rate 16 /min Mekhi VERGARA [facility] 06-20-2023 10:46-0500 Systolic blood pressure 130 mm[Hg] Mekhi VERGARA [facility] 12-23-2022 13:13-0400 Blood Pressure Location Mekhi VERGARA [facility] 12-23-2022 13:13-0400 Diastolic blood pressure 68 mm[Hg] Mekhi VERGARA [facility] 12-23-2022 13:13-0400 Heart rate 70 /min Mekhi VERGARA [facility] 12-23-2022 13:13-0400 Systolic blood pressure 120 mm[Hg] Mekhi VERGARA [facility] 05-10-2022 10:43-0400 Body height 177.8 cm Pacc 6 Work Phone: [facility] 05-10-2022 10:43-0400 Body temperature 97.81 [degF] Pacc 6 Work Phone: [facility] 05-10-2022 10:43-0400 Body weight 86.18 kg Pacc 6 Work Phone: [facility] 05-10-2022 10:43-0400 Diastolic blood pressure 75 mm[Hg] Pacc 6 Work Phone: [facility] 05-10-2022 10:43-0400 Heart rate 86 /min Pacc 6 Work Phone: [facility] 05-10-2022 10:43-0400 SaO2% (BldA) [Mass fraction] 97 % Pacc 6 Work Phone: [facility] 05-10-2022 10:43-0400 Systolic blood pressure 124 mm[Hg] Pacc 6 Work Phone: [facility] 04-22-2022 15:42-0400 Blood Pressure Location Mekhi VERGARA [facility] 04-22-2022 15:42-0400 Diastolic blood pressure 64 mm[Hg] Mekhi VERGARA [facility] 04-22-2022 15:42-0400 Heart rate 76 /min Mekhidominique VERGARA [facility] 04-22-2022 15:42-0400 Respiratory rate 60 /min Mekhidominique VERGARA [facility] 04-22-2022 15:42-0400 Systolic blood pressure 117 mm[Hg] Mekhi VERGARA [facility] 04-17-2022 12:55-0400 Body height 177.8 cm Tristin Wilcox MD, PhD Work Phone: [facility] 04-17-2022 12:55-0400 Body temperature 98.4 [degF] Tristin Wilcox MD, PhD Work Phone: [facility] 04-17-2022 12:55-0400 Body weight 86.18 kg Tristin Wilcox MD, PhD Work Phone: [facility] 04-17-2022 12:55-0400 Diastolic blood pressure 74 mm[Hg] Tristin Wilcox MD, PhD Work Phone: [facility] 04-17-2022 12:55-0400 Heart rate 70 /min Tristin Wilcox MD, PhD Work Phone: [facility] 04-17-2022 12:55-0400 Respiratory rate 16 /min Tristin Wilcox MD, PhD Work Phone: [facility] 04-17-2022 12:55-0400 SaO2% (BldA) [Mass fraction] 99 % Tristin Wilcox MD, PhD Work Phone: [facility] 04-17-2022 12:55-0400 Systolic blood pressure 127 mm[Hg] Tristin Wilcox MD, PhD Work Phone: [facility] 10-16-2021 14:39-0400 Blood Pressure Location Yenni NILL [facility] 10-16-2021 14:39-0400 Diastolic blood pressure 76 mm[Hg] Yenni NILL [facility] 10-16-2021 14:39-0400 Heart rate 68 /min Yenni NILL [facility] 10-16-2021 14:39-0400 Respiratory rate 16 /min Yenni NILL [facility] 10-16-2021 14:39-0400 Systolic blood pressure 106 mm[Hg] Yenni NILL [facility] Encounters Encounter Date Encounter Type Care Provider Facility Start: 06-29-2024 End: 06-29-2024 ambulatory Olman APONTE Facility: [facility] Start: 06-29-2024 End: 06-29-2024 Patient encounter procedure Olman APONTE [facility] Start: 05-26-2024 End: 05-28-2024 Clinisync Result Encounter Generic External Data Provider [facility] External Department Unsolicited Start: 05-26-2024 End: 05-28-2024 Clinisync Result Encounter Generic External Data Provider [facility] External Department Unsolicited Start: 05-26-2024 End: 05-26-2024 ambulatory Olman APONTE Facility:[id number] Start: 05-22-2024 End: 05-24-2024 Clinisync Result Encounter Generic External Data Provider [facility] External Department Unsolicited Start: 05-22-2024 End: 05-24-2024 Clinisync Result Encounter Generic External Data Provider [facility] External Department Unsolicited Start: 03-09-2024 End: 03-09-2024 Refill Tereza Fine MA [facility] Comment on above: 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; Chronic heart failure with preserved ejection fraction (CMS/HCC) Start: 10-23-2023 ambulatory Armani Grimes lity:[facility] Start: 08-28-2023 End: 08-28-2023 ambulatory [facility] Start: 08-21-2023 Orders Only Shaikh Lexi WORKMAN Work Phone: [facility] Comment on above: 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; Chronic heart failure with preserved ejection fraction (CMS/HCC); Chronic bilateral low back pain with bilateral sciatica Start: 08-19-2023 End: 08-19-2023 ambulatory Mekhi VERGARA [place] [place]: 08-19-2023 End: 08-19-2023 Patient encounter procedure Mekhi VERGARA [facility] Start: 08-19-2023 End: 08-19-2023 ambulatory Mekhi VERGARA [place] [place]: 08-19-2023 End: 08-19-2023 Patient encounter procedure Mekhi VERGARA [facility] Start: 07-28-2023 End: 07-28-2023 ambulatory SHAIKH LEXI Not Available Start: 07-03-2023 End: 07-03-2023 ambulatory SHAIKH LEXI Not Available Start: 07-03-2023 Patient encounter procedure Shaikh Lxei WORKMAN Work Phone: [facility] Start: 06-20-2023 End: 06-20-2023 Patient encounter procedure Mekhi VERGARA [facility] Start: 06-18-2023 End: 06-18-2023 ambulatory SHAIKH LEXI Not Available Start: 06-09-2023 End: 06-10-2023 ambulatory Mallorie Joy [...] Facility: [facility] Start: 03-07-2023 End: 03-07-2023 ambulatory [facility] Start: 02-03-2023 End: 02-04-2023 ambulatory Mallorie Joy MD Facility: [facility] Start: 12-23-2022 End: 12-23-2022 Patient encounter procedure Mekhi VERGARA [facility] Start: 11-21-2022 ambulatory NARENDRANATH LAKSHMIPATHY . Facility:[facility] Start: 10-31-2022 ambulatory NARENDRANATH LAKSHMIPATHY . Facility:[facility] Start: 10-29-2022 End: 10-29-2022 ambulatory NARENDRANATH LAKSHMIPATHY . Facility:[facility] Start: 10-24-2022 End: 10-25-2022 ambulatory NARENDRANATH LAKSHMIPATHY . Facility:[facility] Start: 10-18-2022 End: 10-18-2022 ambulatory [facility] Start: 10-11-2022 End: 10-12-2022 ambulatory [facility] Start: 09-11-2022 End: 09-11-2022 ambulatory [facility] Start: 08-06-2022 End: 08-06-2022 Patient encounter procedure Mekhi VERGARA [facility] Start: 07-30-2022 End: 07-31-[address] PAULINE WINSTON . 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 Start: 05-10-2022 End: 05-11-2022 ambulatory TRISTIN AURELIO DURACHARLIE Facility:[facility] Start: 05-10-2022 Encounter for other preprocedural examination TRISTIN WILCOX [facility] Start: 05-10-2022 End: 05-10-2022 ambulatory Pacc [...] of coronary artery; PAF (paroxysmal atrial fibrillation) ([facility]); History of DVT (deep vein thrombosis); Gastroesophageal reflux disease with esophagitis, unspecified whether hemorrhage; Chronic kidney disease, stage 4 (severe) ([facility]); Calculus of kidney; Hypothyroidism unspecified; Iron deficiency anemia due to chronic blood loss; History of prostate cancer; History of primary malignant neoplasm of urinary bladder; Gout, unspecified cause, unspecified chronicity, unspecified site Patient Education Start: 05-10-2022 End: 05-11-2022 ambulatory TRISTIN WILCOX Facility:[facility] Start: 05-10-2022 End: 05-10-2022 Admission to establishment Pacc Main 6 Work Phone: [facility] [facility] Start: 05-10-2022 End: 05-10-2022 Preprocedural examination done Pac Main 6 Work Phone: Pre Anesthesia Start: 05-09-2022 End: 05-10-2022 ambulatory SHAIKH Milena ELLIOTT Facility:[facility]1 Start: 05-01-2022 End: 05-01-2022 ambulatory FRANKY VERONICA Facility:[facility] Start: 04-25-2022 Telephone encounter Tristin Duraes Colorectal Surgery Comment on above: Appointment Start: 04-24-2022 Telephone encounter Marika Crabtree Colorectal Surgery 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 Start: 04-18-2022 End: 04-19-2022 ambulatory SHAIKH Milena ELLIOTT Facility:[facility] Start: 04-17-2022 End: 04-18-2022 ambulatory TRISTIN WILCOX Facility:[facility] Start: 04-17-2022 End: 04-17-2022 Patient encounter procedure [...] End: 12-13-2021 Patient encounter procedure 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 [facility] General Surgery [place] Start: 11-29-2021 End: 11-30-2021 ambulatory CALVIN MOREJON . Facility:[facility] Start: 11-27-2021 End: 11-27-2021 Patient encounter procedure 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 General Surgery Nill/Said [facility]a Start: 11-21-2021 End: 11-22-2021 ambulatory SHAIKH Milena ELLIOTT Facility: Start: 11-17-2021 ambulatory SHAIKH Milena ELLIOTT Facilit y:[facility] Start: 11-09-2021 Encounter for preprocedural cardiovascular examination DR YENNI STANLEY . [facility] Start: 11-09-2021 Encounter for preprocedural laboratory examination DR YENNI STANLEY . [facility] Start: 11-08-2021 End: 11-09-[address] NONE LISTED REQUEST Facility: Start: 11-08-2021 End: 11-09-2021 Encounter for preprocedural cardiovascular examination DR NONE LISTED REQUEST Facility: Start: 10-16-2021 End: 10-16-2021 Patient encounter procedure 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 General Surgery [place]/[facility] [place] Start: 10-09-2021 End: 10-09-2021 Off-Site Iraida James [facility] Start: 01-20-2017 End: 01-21-2017 Ambulatory DEFAULT PHYSICIAN Facility:[facility] Procedures Date Procedure Procedure Detail Performing Clinician Start: 05-26-2024 BLOOD CULTURE 1 Generic External Data Provider Start: 05-22-2024 BLOOD CULTURE 2 Generic External Data Provider Start: 05-22-2024 BLOOD CULTURE 1 Generic External Data Provider Start: 08-05-2022 Cystoscopy Mekhi VERGARA Start: 05-10-2022 Antibody screen TRISTIN WILCOX Comment on above: Order Comment: Specimen Type: BLOOD SPEC IMENOrdering Facility: [facility] Address: [address] [id number] Performed By: #### T [id number] ####CC MAIN BLOOD BANKCLIA [id number] [facility] [id number] [place] Start: 05-09-2022 PSA screening SHAIKH LEXI Comment on above: Performed By: #### A1C #### [facility] [address] [place] [address] Dr. Mason Astudillo Start: 04-18-2022 PSA screening SHAIKH LEXI Comment on above: Performed By: #### PSAD #### [facility] [address] [place] [address] Dr. Mason Astudillo Start: 04-17-2022 Sigmoidoscopy flx dx w/collj spec br/wa if pfrmd [facility] Provider Start: 02-03-2022 Transfusion of Nonautologous Red Blood Cells into Peripheral Vein, Percutaneous Approach SHAIKH LEXI Start: 11-21-2021 Repair of right inguinal hernia 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 Start: 09-21-2021 Colonoscopy Iraida James Start: 07-30-2021 Esophagogastroduodenoscopy Iraida Mariaelenamet z Start: 06-14-2019 Cystoscopy Iraidamilena FerrellJacob Start: 08-11-2018 Cystoscopy Iraidamilena FerrellJacob Start: 01-29-2018 Cystoscopy Iraidamilena FerrellJacob Start: 07-08-2017 Cystoscopic removal of ureteric stent Iraida James Start: 06-14-2017 Ureteroscopy Iraidamilena FerrellJacob Start: 04-21-2017 Cystoscopy Iraida Jacob Start: 01-06-2017 Cystoscopy Iraida Jacob Start: 10-21-2016 Cystoscopy Iraida Jacob Start: 07-18-2016 Transurethral resection of bladder neoplasm Iraida Ferrellmetz Start: 06-03-2016 Cystoscopy Iraida Jacob Start: 04-06-2003 Implantation of radioactive seed into prostate Iraida James Start: 01-25-2003 Transrectal biopsy of prostate using ultrasound guidance Iraida James Arthroplasty of knee 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 Comment on above: left Craniotomy and evacu ation of blood clot 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 Discectomy of spine 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 Extraction of cataract Justin STANLEY Comment on above: bilateral History of hernia repair Fabio STANLEY History of surgical procedure on cervical spine Mekhi VERGARA Parathyroidectomy Yenni ALONZO Radiofrequency ablation Aba STANLEY Comment on above: C3-C6 Tonsillectomy and adenoidectomy 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 Plan of Treatment Date Care Activity Detail Author Start: 01-04-2025 Glaucoma screening Diabetes: R etinopathy Screening [facility] Start: 07-03-2024 Medicare Annual Well ness (AWV) Medicare Annual Wellness (AWV) [facility] Start: 03-07-2024 Influenza vaccination Influenza Vacc ine (#1) [facility] Start: 10-02-2023 End: 10-02-2023 Patient encounter procedure 10/02/2023 1:00 PM EDT Office Visit [facility] [address] [place] [id number] Shaikh Elliott MD [address] [place] [id number] [facility] Start: 08-28-2023 Urine screening for protein Diabetes: Urine Protein Screening [facility] Start: 08-07-2023 Hemoglobin A1c measurement Diabetes: Hemoglobin A1C [facility] Start: 11-07-2022 Hemoglobin A1c/Hemoglobin.total in Blood HBA1C [facility] Start: 05-10-2022 End: 07-10-2022 Hemoglobin A1c in Blood [facility] Work Phone: Comment on above: Expected: 05/10/2022 , Expires: 07/10/2022 Start: 03-07-2022 Influenza vaccination INFLUENZA (#1) [facility] Start: 08-21-2021 COVID-19 VACCINE (4 - Booster for Moderna series) COVID-19 VACCINE (4 - Booster for Moderna series) [facility] Start: 07-07-2021 ADVANCE DIRECTIVE DISCUSSION ADVANCE DIRECTIVE DISCUSSION [facility] Start: 07-07-2021 DEPRESSION ASSESSMENT DEPRESSION ASS ESSMENT [facility] Start: 2001 PNEUMOCOCCAL: 65+ (1 - PCV) PNEUMOCOCCAL: 65+ (1 - PCV) [facility] Start: 1986 SHINGRIX VACCINE (1 of 2) SHINGRIX VACCINE (1 of 2) [facility] Start: 1981 DIABETES SCREEN DIABETES SCREEN [facility] Start: 12-17-1955 Urine microalbumin profile DTAP,TDAP,TD (1 - Tdap) [facility] Start: 1954 Hepatitis B surface antibody level LDL CHOLESTEROL [facility] Start: 1954 SPIROMETRY SPIROMETRY [facility] Start: 1946 3 comp foot exam completed DIABETIC FOOT EXAM [facility] Start: 1946 Hepatitis B screening URINE ALBUMIN:CREATININE RATIO [facility] Start: 1946 Hepatitis C antibody , confirmatory test DILATED RETINAL EXAM [facility] Start: 1942 PNEUMOCOCCAL: 65+ (1 - PCV) PNEUMOCOCCAL: 65+ (1 - PCV) [facility] Start: 1941 Hemoglobin A1c/Hemoglobin.total in Blood HBA1C [facility] BLOOD CULTURE 1 BLOOD CULTURE 1 Lab Routine 05/22/2024 10:48 PM EST [facility] BLOOD CULTURE 1 BLOOD CULTURE 1 Lab Routine 05/26/2024 11:10 AM EST [facility] BLOOD CULTURE 2 BLOOD CULTURE 2 Lab Routine 05/22/2024 11:00 PM EST [facility] [place] Immunizations Immunization Date Immunization Notes Care Provider [facility] 06-06-2023 Influenza, High-dose Seasonal, Quadrivalent, Preservative Free Shaikh Lexi WORKMAN Work Phone: [facility] 06-06-2023 influenza virus vacc ine, unspecified formulation Tereza Fine MA [facility] 05-14-2022 influenza virus vacc ine, unspecified formulation Mekhi VERGARA [facility] 05-14-2022 Influenza, Seasonal, Quadrivalent, Adjuvanted Shaikh Lexi WORKMAN Work Phone: [facility] 06-26-2021 SARS-CoV-2 (COVID-19 ) mRNA-1273 vaccine Mekhi VERGARA [facility] 04-06-2021 influenza virus vacc ine, unspecified formulation Iraida James [facility] 03-28-2021 influenza virus vacc ine, unspecified formulation Mekhi VERGARA [facility] 03-28-2021 Influenza, injectabl e, Madin [place] Canine Kidney, preservative free, quadrivalent Shaikh Lexi WORKMAN Work Phone: [facility] 02-04-2021 influenza virus vacc ine, unspecified formulation Iraida James [facility] 09-12-2020 SARS-CoV-2 (COVID-19 ) mRNA-1273 vaccine Mekhi VERGARA [facility] 08-14-2020 SARS-CoV-2 (COVID-19 ) mRNA-1273 vaccine Mekhi VERGARA [facility] 05-25-2020 pneumococcal polysaccharide vaccine, 23 valent Mekhi VERGARA [facility] 05-25-2020 zoster vaccine recombinant Mekhi VERGARA [facility] 02-25-2020 influenza virus vacc ine, unspecified formulation Mekhi VERGARA [facility] 02-25-2020 influenza, injectabl e, quadrivalent, preservative free Shaikh Lexi WORKMAN Work Phone: [facility] 02-25-2020 zoster vaccine recombinant Mekhidominique VERGARA [facility] 05-11-2019 tetanus toxoid, redu nimesh diphtheria toxoid, and acellular pertussis vaccine, adsorbed Mekhi VERGARA [facility] 03-23-2019 influenza virus vacc ine, unspecified formulation Mekhidominique VERGARA [facility] 03-23-2019 pneumococcal conjuga te vaccine, 13 valent Mekhi VERGARA [facility] 03-23-2019 Seasonal trivalent influenza vaccine, adjuvanted, preservative free Shaikh Lexi WORKMAN Work Phone: [facility] 04-30-2018 influenza virus vacc ine, unspecified formulation Mekhi VERGARA [facility] 04-30-2018 Seasonal trivalent influenza vaccine, adjuvanted, preservative free Shaikh Lexi WORKMAN Work Phone: [facility] 02-13-2017 influenza virus vacc ine, unspecified formulation Mekhi VERGARA [facility] 02-13-2017 Seasonal trivalent influenza vaccine, adjuvanted, preservative free Shaikh Lexi WORKMAN Work Phone: [facility] 04-19-2015 influenza virus vacc ine, unspecified formulation Mekhi VERGARA [facility] 04-19-2015 influenza, seasonal, injectable Shaikh Lexi WORKMAN Work Phone: [facility] 04-19-2015 pneumococcal polysaccharide vaccine, 23 valent Mekhi VERGARA [facility] 04-13-2015 influenza virus vacc ine, unspecified formulation Mekhi VERGARA [facility] 04-13-2015 influenza, high dose seasonal, preservative-free Shaikh Lexi WORKMAN Work Phone: [facility] 04-22-2007 influenza virus vacc ine, whole virus Shaikh Lexi WORKMAN Work Phone: [facility] 04-22-2007 influenza, whole Mekhi THOMAS [facility] Payers Date Payer Category Payer Private Health Insurance [id number] 2002 Unknown 2001 Medicare [id number] 1959 Medicare [id number] 1959 Unknown [id number] 1936 Unknown [id number] 2.16.84 0.1.913121.3.579.2.593 1936 Unknown [id number] 2.16.84 0.1.885947.3.579.2.593 1936 Unknown [id number] 2.16.84 0.1.939995.3.579.2.593 1936 Unknown [id number] 2.16.84 0.1.429133.3.579.2.593 1936 Unknown [id number] 2.16.84 0.1.876297.3.579.2.593 1936 Unknown [id number] 2.16.84 0.1.987942.3.579.2.593 1936 Unknown [id number] 2.16.84 0.1.513240.3.579.2.593 1936 Unknown [id number] 2.16.84 0.1.269412.3.579.2.593 1936 Unknown [id number] 2.16.84 0.1.532138.3.579.2.593 1936 Unknown [id number] 2.16.84 0.1.926318.3.579.2.593 1936 Unknown [id number] 2.16.84 0.1.187177.3.579.2.593 1936 Unknown [id number] 2.16.84 0.1.337015.3.579.2.593 1936 Unknown [id number] 2.16.84 0.1.652888.3.579.2.593 1936 Unknown [id number] 2.16.84 0.1.505431.3.579.2.593 1936 Unknown [id number] 2.16.84 0.1.528051.3.579.2.593 1936 Unknown [id number] 2.16.84 0.1.811551.3.579.2.593 1936 Unknown [id number] 2.16.84 0.1.993414.3.579.2.593 1936 Unknown [id number] 2.16.84 0.1.223545.3.579.2.593 1936 Unknown [id number] 2.16.84 0.1.212446.3.579.2.593 1936 Unknown [id number] 2.16.84 0.1.942327.3.579.2.593 1936 Unknown [id number] 2.16.84 0.1.112884.3.579.2.593 1936 Unknown [id number] 2.16.84 0.1.732391.3.579.2.593 1936 Unknown [id number] 2.16.84 0.1.487244.3.579.2.593 1936 Unknown [id number] 2.16.84 0.1.913760.3.579.2.593 1936 Unknown [id number] 2.16.84 0.1.787574.3.579.2.593 1936 Unknown [id number] 2.16.84 0.1.264930.3.579.2.593 1936 Unknown [id number] 2.16. 840.1.566007.3.579.2.196 1936 Unknown [id number] 2.16. 840.1.545138.3.579.2.196 1936 Unknown [id number] 2.16. 840.1.764127.3.579.2.196 1936 Unknown [id number] 2.16. 840.1.780390.3.579.2.196 1936 Unknown [id number] 2.16. 840.1.347474.3.579.2.196 1936 Unknown [id number] 2.16. 840.1.804451.3.579.2.196 1936 Unknown [id number] 2.16.84 0.1.247029.3.579.2.1259 1936 Unknown [id number] 2.16.840 .1.727523.3.579.2.1259 1936 Unknown [id number] 2.16.840 .1.949371.3.579.2.1259 1936 Unknown [id number] 2.16.840 .1.722520.3.579.2.1259 1936 Unknown [id number] 2.16.840 .1.620059.3.579.2.1259 1936 Unknown [id number] 2.16.840. 1.446073.3.579.2.1259 1936 Unknown [id number] 2.16.8 40.1.507659.3.579.2.727 1936 Unknown [id number] 2.16.8 40.1.278149.3.579.2.727 1936 Unknown [id number] 2.16.8 40.1.212019.3.579.2.727 1936 Unknown [id number] 2.16.8 40.1.235314.3.579.2.727 1936 Unknown [id number] 2.16.8 40.1.318665.3.579.2.727 Social History Date Type Detail Facility Start: 10-09-2021 End: 06-29-2024 Tobacco smoking status Never smoked tobacco (finding) [facility] Start: 07-28-2023 Sex Assigned At Male F [facility] Tobacco smoking status Never General Surgery [facility] Start: 04-17-2022 End: 06-16-2023 Tobacco use and exposure Smokeless tobacco non-user [facility] Start: 04-17-2022 End: 05-10-2022 Alcohol intake Current drinker of alcohol (finding) [facility] Start: 04-17-2022 Alcohol Comment very occasionally [facility] Start: 1936 Sex Assigned At Not on file C [facility] Start: 04-07-2022 End: 05-10-2022 Exposure to SARS-CoV-2 (event) Not sure [facility] Start: 05-10-2022 Alcohol Comment Rarely [facility] Start: 07-28-2023 Alcohol intake Lifetime non-d abiel (finding) [facility] Start: 07-28-2023 History of Social function [facility] Start: 06-16-2023 Alcohol Comment caffeine: 1-2 cups per day coffee, soda [facility] Functional Status Date Assessment Result Facility 06-29-2024 Functional Status N/A [facility] 08-19-2023 Functional Status N/A [facility] 06-20-2023 Functional Status N/A [facility] 12-23-2022 Functional Status N/A [facility] 08-01-2022 Functional Status N/A [facility] 04-22-2022 Functional Status N/A [facility] Clinical Notes 10-09-2021 to 06-29-2024 Telephone Encounter - Maria Luisa Garcia RN - 05/16/2022 10:17 AM Darline Arriaga RN - 05/10/2022 2:13 PM Sindi Downing PA-C - 05/10/2022 10:50 AM EDTPatient Instructions Note Date & Type Note Facility 06-29-2024 Hospital Discharge instructions Patient Education 06/29/2024 11:06:22 Ureteroscopy Ureteroscopy Ureteroscopy is a procedure to check for and treat problems inside part of the urinary tract. In this procedure, a long rigid or flexible tube with a lens and light at the end (ureteroscope) is used to look at the inside of the kidneys and the ureters. The ureters are the tubes that carry urine from the kidneys to the bladder. The ureteroscope is inserted into one or both of the ureters. You may need this procedure if you have frequent urinary tract infections (UTIs), blood in your urine, or a stone in one or both of your ureters. A ureteroscopy can be done: To find the cause of urine blockage in a ureter and to evaluate other abnormalities inside the ureters or kidneys. To remove stones. To remove or treat growths of tissue (polyps), abnormal tissue, and some types of tumors. To remove a tissue sample and check it for disease under a microscope (biopsy). Tell a health care provider about: Any allergies you have. All medicines you are taking, including vitamins, herbs, eye drops, creams, and ehtg-zgu-rngcxak medicines. Any problems you or family members have had with anesthetic medicines. Any bleeding problems you have. Any surgeries you have had. Any medical conditions you have. Whether you are or may be . What are the risks? Your health care provider will talk with you about risks. These may include: Abdominal pain or a burning feeling or pain while urinating. Abnormal bleeding. A UTI. Allergic reactions to medicines. Scarring that narrows the ureter (stricture) or swelling. Creating a hole (perforation) in the ureter. Damage to other structures or organs, such as the part of your body that drains urine from your bladder (urethra), your bladder, or your uterus. What happens before the procedure? When to stop eating and drinking 8 hours before your procedure ?Stop eating most foods. Do not eat meat, fried foods, or fatty foods. ?Eat only light foods, such as toast or crackers. ?All liquids are okay except energy drinks and alcohol. 6 hours before your procedure ?Stop eating. ?Drink only clear liquids, such as water, clear fruit juice, black coffee, plain tea, and sports drinks. ?Do not drink energy drinks or alcohol. 2 hours before your procedure ?Stop drinking all liquids. ?You may be allowed to take medicines with small sips of water. Medicines Ask your health care provider about: Changing or stopping your regular medicines. These include any diabetes medicines or blood thinners you take. Taking medicines such as aspirin and ibuprofen. These medicines can thin your blood. Do not take these medicines unless your health care provider tells you to. Taking uhlu-qbh-avyingp medicines, vitamins, herbs, and supplements. General instructions Do not use any products that contain nicotine or tobacco for at least 4 weeks before the procedure. These products include cigarettes, chewing tobacco, and vaping devices, such as e-cigarettes. If you need help quitting, ask your health care provider. If you will be going home right after the procedure, plan to have a responsible adult: ?Take you home from the hospital or clinic. You will not be allowed to drive. ?Care for you for the time you are told. Ask your health care provider what steps will be taken to help prevent infection. These may include: ?Washing skin with a soap that kills germs. ?Receiving antibiotic medicine. Tests You may have an exam or testing. ?You may have a urine sample taken to check for infection. What happens during the procedure? An IV will be inserted into one of your veins. You may be given: ?A sedative. This helps you relax. ?Anesthesia. This will: ?Numb certain areas of your body. ?Make you fall asleep for surgery. Your urethra will be cleaned with a germ-killing solution. The ureteroscope will be passed through your urethra into your bladder. A salt-water solution will be sent through the ureteroscope to fill your bladder. This will help the health care provider see the openings of your ureters more clearly. The ureteroscope will be passed into your ureter. ?If a growth is found, a biopsy may be done. ?If a stone is found, it may be removed through the ureteroscope, or the stone may be broken up using a laser, shock waves, or electrical energy. ?In some cases, if the ureter is too small, a tube may be inserted that keeps the ureter open (ureteral stent). The stent may be left in place for 1 or 2 weeks, and then the ureteroscopy procedure will be done again. The scope will be removed, and your bladder will be emptied. The procedure may vary among health care providers and hospitals. What happens after the procedure? Your blood pressure, heart rate, breathing rate, and blood oxygen level will be monitored until you leave the hospital or clinic. It is up to you to get the results of your procedure. Ask your health care provider, or the department that is doing the procedure, when your results will be ready. Summary Ureteroscopy is a procedure used to look at the inside of the kidneys and the ureters. You may need this procedure if you have frequent urinary tract infections (UTIs), blood in your urine, or a stone in one or both of your ureters. Follow instructions from your health care provider about eating and drinking. In some cases, if the ureter is too small, a tube may be inserted that keeps the ureter open (ureteral stent). The stent may be left in place for 1 or 2 weeks to keep the ureter open, and then the ureteroscopy procedure will be done again. This information is not intended to replace advice given to you by your health care provider. Make sure you discuss any questions you have with your health care provider. Document Revised: 05/26/2023 Document Reviewed: 05/26/2023 [employer] Patient Education 2023 [employer]. Follow Up Care 05/24/2024 12:01:26 With:HARPAL WORKMAN, Olman Richardson, URL Address: [address] [place] [address] [place] [address]- When: Unknown [facility] 06-29-2024 Note Patient Education Urology Ureteroscopy Ureteroscopy is a procedure to check for and treat problems inside part of the urinary tract. In this procedure, a long rigid or flexible tube with a lens and light at the end (ureteroscope) is used to look at the inside of the kidneys and the ureters. The ureters are the tubes that carry urine from the kidneys to the bladder. The ureteroscope is inserted into one or both of the ureters. You may need this procedure if you have frequent urinary tract infections (UTIs), blood in your urine, or a stone in one or both of your ureters. A ureteroscopy can be done: ??? To find the cause of urine blockage in a ureter and to evaluate other abnormalities inside the ureters or kidneys. ??? To remove stones. ??? To remove or treat growths of tissue (polyps), abnormal tissue, and some types of tumors. ??? To remove a tissue sample and check it for disease under a microscope (biopsy). Tell a health care provider about: ??? Any allergies you have. ??? All medicines you are taking, including vitamins, herbs, eye drops, creams, and iacu-qsd-rukuwby medicines. ??? Any problems you or family members have had with anesthetic medicines. ??? Any bleeding problems you have. ??? Any surgeries you have had. ??? Any medical conditions you have. ??? Whether you are or may be . What are the risks? Your health care provider will talk with you about risks. These may include: ??? Abdominal pain or a burning feeling or pain while urinating. ??? Abnormal bleeding. ??? A UTI. ??? Allergic reactions to medicines. ??? Scarring that narrows the ureter (stricture) or swelling. ??? Creating a hole (perforation) in the ureter. ??? Damage to other structures or organs, such as the part of your body that drains urine from your bladder (urethra), your bladder, or your uterus. What happens before the procedure? When to stop eating and drinking ??? 8 hours before your procedure ? Stop eating most foods. Do not eat meat, fried foods, or fatty foods. ? Eat only light foods, such as toast or crackers. ? All liquids are okay except energy drinks and alcohol. ??? 6 hours before your procedure ? Stop eating. ? Drink only clear liquids, such as water, clear fruit juice, black coffee, plain tea, and sports drinks. ? Do not drink energy drinks or alcohol. ??? 2 hours before your procedure ? Stop drinking all liquids. ? You may be allowed to take medicines with small sips of water. Medicines Ask your health care provider about: ??? Changing or stopping your regular medicines. These include any diabetes medicines or blood thinners you take. ??? Taking medicines such as aspirin and ibuprofen. These medicines can thin your blood. Do not take these medicines unless your health care provider tells you to. ??? Taking vrjz-rcf-rhcqnft medicines, vitamins, herbs, and supplements. General instructions ??? Do not use any products that contain nicotine or tobacco for at least 4 weeks before the procedure. These products include cigarettes, chewing tobacco, and vaping devices, such as e-cigarettes. If you need help quitting, ask your health care provider. ??? If you will be going home right after the procedure, plan to have a responsible adult: ? Take you home from the hospital or clinic. You will not be allowed to drive. ? Care for you for the time you are told. ??? Ask your health care provider what steps will be taken to help prevent infection. These may include: ? Washing skin with a soap that kills germs. ? Receiving antibiotic medicine. Tests ??? You may have an exam or testing. ? You may have a urine sample taken to check for infection. What happens during the procedure? An IV will be inserted into one of your veins. ??? You may be given: ? A sedative. This helps you relax. ? Anesthesia. This will: ? Numb certain areas of your body. ? Make you fall asleep for surgery. ??? Your urethra will be cleaned with a germ-killing solution. ??? The ureteroscope will be passed through your urethra into your bladder. ??? A salt-water solution will be sent through the ureteroscope to fill your bladder. This will help the health care provider see the openings of your ureters more clearly. ??? The ureteroscope will be passed into your ureter. ? If a growth is found, a biopsy may be done. ? If a stone is found, it may be removed through the ureteroscope, or the stone may be broken up using a laser, shock waves, or electrical energy. ? In some cases, if the ureter is too small, a tube may be inserted that keeps the ureter open (ureteral stent). The stent may be left in place for 1 or 2 weeks, and then the ureteroscopy procedure will be done again. ??? The scope will be removed, and your bladder will be emptied. The procedure may vary among health care providers and hospitals. What happens after the procedure? (more content not included)... [facility] 08-28-2023 Note [place] [facility] Subjective Ben Guadalupe is a [...] February 2022 he was admitted to the [facility] with palpitations and chest pain. He [...] for gastroenteritis. He is currently at the [facility] for rehab. C/o back pain - he [...] route (more content not included)... [facility] 08-28-2023 Note Telephone visit for 1 year follow up s/p Watchman implant. He was just discharged from [facility] on Friday for nausea/vomiting and acute hypokalemia. Denies chest pain and SOB. Says his BP has been good at PT. Review of Systems Cardiovascular: Positive for leg swelling. Musculoskeletal: Positive for arthritis, back pain and muscle weakness. Neurological: Positive for weakness. All other systems reviewed and are negative. [facility] 08-25-2023 Note [id number] [facility] 08-19-2023 Hospital Discharge instructions Patient Education [...] Urology [address], [place] [address]- Business (1) When: Unknown Comments:Office will call to schedule follow up [facility] 08-19-2023 Note Custom Cystoscopy ? Voiding after [...] you have a fever over 100 degrees. [facility] 08-19-2023 Evaluation + Plan note Diagnostic Tests PendingUroVysion Fish and Urine Cyto ([facility]) 08/19/23 [facility] 06-20-2023 Evaluation + Plan note Diagnostic Tests PendingPSA Total 06/20/23 [facility] [place] 06-20-2023 Hospital Discharge instructions Patient Education 06/20/2023 11:31:25 Prostatitis Prostatitis Prostatitis is swelling or inflammation of the prostate gland, also called the prostate. This gland is about 1.5 inches wide and 1 inch high, and it is involved in making semen. The prostate is located below a man's bladder, in front of the rectum. There are four types of prostatitis: Chronic prostatitis (CP), also called chronic pelvic pain syndrome (CPPS). This is the most common type of prostatitis. It is associated with increased muscle tone in the area between the hip bones (pelvic area), around the prostate. This type is also known as a pelvic floor disorder. Chronic bacterial prostatitis. This type usually results from an acute bacterial infection in the prostate gland that keeps coming back or has not been treated properly. The symptoms are less severe than those caused by acute bacterial prostatitis, which lasts a shorter time. Asymptomatic inflammatory prostatitis. This type does not have symptoms and does not need treatment. This is diagnosed when tests are done for other disorders of the urinary tract or reproductive tract. Acute bacterial prostatitis. This type starts quickly and results from an acute bacterial infection in the prostate gland. It is usually associated with a bladder infection, high fever, and chills. This is the least common type of prostatitis. What are the causes? Bacterial prostatitis is caused by an infection from bacteria. Chronic nonbacterial prostatitis may be caused by: Factors related to the nervous system. This system includes thebrain, spinal cord, and nerves. An autoimmune response. This happens when the body's disease-fighting system attacks healthy tissue in the body by mistake. Psychological factors. These have to do with how the mind works. The causes of the other types of prostatitis are usually not known. What are the signs or symptoms? Symptoms of this condition depend on the type of prostatitis you have. Acute bacterial prostatitis Symptoms may include: Pain or burning during urination. Frequent and sudden urges to urinate. Trouble starting to urinate. Fever. Chills. Pain in your muscles or joints, lower back, or lower abdomen. Other types of prostatitis Symptoms may include: Sudden urges to urinate, or urinating often. Trouble starting to urinate. Weak urine stream. Dribbling after urination. Discharge coming from the penis. Pain in the testicles, the penis, or the tip of the penis. Pain in the area in front of the rectum and below the scrotum (perineum). Pain when ejaculating. How is this diagnosed? This condition may be diagnosed based on: A physical and medical exam. A digital rectal exam. For this, the health care provider may use a finger to feel the prostate. A urine test to check for bacteria. A semen sample or blood tests. Ultrasound. Urodynamic tests to check how your body handles urine. Cystoscopy to look inside your bladder or inside the part of your body that drains urine from the bladder (urethra). How is this treated? Treatment for this condition depends on the type of prostatitis. Treatment may involve: Medicines to relieve pain or inflammation, or to help relax your muscles. Physical therapy. Heat therapy. Biofeedback. These techniques help you control certain body functions. Relaxation exercises. Antibiotic medicine, if your condition is caused by bacteria. Sitz baths. These warm water baths help to relax your pelvic floor muscles, which helps to relieve pressure on the prostate. Follow these instructions at home: Medicines Take lrbx-mdv-vuwnydj and prescription medicines only as told by your health care provider. If you were prescribed an antibiotic medicine, take it as told by your health care provider. Do not stop using the antibiotic even if you start to feel better. Managing pain and swelling Take sitz baths as directed by your health care provider. For a sitz bath, sit in warm water that is deep enough to cover your hips and buttocks. If directed, apply heat to the affected area as often as told by your health care provider. Use the heat source that your health care provider recommends, such as a moist heat pack or a heating pad. ?Place a towel between your skin and the heat source. ?Leave the heat on for 20 30 minutes. ?Remove the heat if your skin turns bright red. This is especially important if you are unable to feel pain, heat, or cold. You may have a greater risk of getting burned. General instructions Do exercises as told by your health care provider, if you were prescribed physical therapy, biofeedback, or relaxation exercises. Keep all follow-up visits as told by your health care provider. This is important. Where to find more information National [place] of Diabetes and Digestive and Kidney Diseases: https://www.niddk.nih.gov Contact a health care provider if: Your symptoms get worse. You have a fever. Get help right away if: You have chills. You feel light-headed or feel like you may faint. You cannot urinate. You have blood or blood clots in your urine. Summary Prostatitis is swelling or inflammation of the prostate gland. Treatment for this condition depends on the type of prostatitis. Take zqyf-yhl-szsslyx and prescription medicines only as told by your health care provider. Get help right away of you have chills, feel light-headed, feel like you may faint, cannot urinate, or have blood or blood clots in your urine. This information is not intended to replace advice given to you by your health care provider. Make sure you discuss any questions you have with your health care provider. Document Revised: 07/28/2020 Document Reviewed: 07/28/2020 [employer] Patient Education 2022 [employer]. Follow Up Care 12/23/2022 13:48:47 With:URSULA WORKMAN, Mekhi Oh, URL Address: [address] [place], [place] [id number]- When: Unknown [facility] 03-07[facility]23 Note Watchman implant 08/08 Continue ASA for lifelong, may stop plavix being that > 6 months since implantation No need for Antibiotic prophylaxis at this time [facility] 03-07-2023 Note Coronary artery dise ase is stable Continue GDMT- ASA, lipitor, metoprolol continue risk factor modifications- heart healthy diet, regular exercise as tolerated and continue all medications. [facility] 03-07-2023 Note Hypertension is well controlled Continue all meds [facility] 03-07-2023 Note Continue lipitor [facility] 03-07-2023 Note [id number] VASc= 4 No anticoagulation s/p watchman implantation Rate remains controlled metoprolol and diltiazem [facility] 03-07-2023 Note Patient here for 6 m o follow up s/p Watchman implant. Doing ok from cardiac standpoint. Denies chest pain, SOB, and palpitations. Still on Plavix as of now. Review of Systems Cardiovascular: Positive for leg swelling. Hematologic/Lymphatic: Negative. Musculoskeletal: Positive for arthritis, back pain, joint pain and myalgias. All other systems reviewed and are negative. [facility] 03-07-2023 Note [facility] CARDI[facility]Y PROGR ESS NOTE [...] tablet 40 mg in the morning. HYDROcodone-acetaminophen (Miles) 5-325 mg tablet Take 1 tablet by [...] ventricul (more content not included)... [facility] 12-23-2022 Hospital Discharge instructions Patient Education 12/23/2022 [...] if anything looks unusual. Men with a tkhcyw-ulvu-hhfctd risk for skin cancer may want to see a senior capital markets specialist (cathead worker) for an annual body check. What are the benefits of screening? Cancer screening is done to look for cancer in the very early stages, before it spreads and becomes harder to treat and before you would start to notice symptoms. Finding cancer early improves the chances of successful treatment. It may save your life. Where to find more information [place] [employer]: www.cancer.org Centers for Disease Control and Prevention: www.cdc.gov National Cancer [place]: www.cancer.gov Contact a health care provider if: [...] provider. Document Revised: 11/19/2021 Document Reviewed: 05/19/2020 [employer] Patient Education 2022 [employer]. Follow Up Care 04/22/2022 16:39:16 With:URSULA WORKMAN, Mekhi Oh, URL Address: [facility] [address] [place] [address]- When: Unknown [facility] [place] 10-24-2022 Note CONSULTATION CONSULTATION DATE: [...] which is stable. MEDICATION: Current medication includes Miles 5 mg q.i.d. p.r.n. He reports it does improve his pain symptoms, improving his quality of life, level of functioning and his sleep pattern. He denies any side effects. He is also on Lyrica 75 mg at h.s., baclofen 10 mg at h.s. and Tylenol Extra Strength six pills a day, which he takes concomitantly with Miles. EXAM: Notable for patient having left sided [...] our patients to inform us about any htmy-sqj-yojgmfq medications or herbal remedies/nutritional supplements/alternative remedies. 2. [...] options with their primary care provider. [facility] 10-18-2022 Note [place] [facility] Subjective Ben Guadalupe is a [...] February 2022 he was admitted to the [facility] with palpitations and chest pain. He [...] perso (more content not included)... [facility] 10-18-2022 Note Patient here for fol low up KINZA s/p Watchman device implant. Denies chest pain and SOB. Doing very well. Review of Systems Cardiovascular: Positive for leg swelling. Hematologic/Lymphatic: Negative. Musculoskeletal: Positive for arthritis, back pain, joint pain and myalgias. All other systems reviewed and are negative. [facility] 09-11-2022 Note [place] [facility] Subjective Ben Guadalupe is a [...] February 2022 he was admitted to the [facility] with palpitations and chest pain. He [...] le (more content not included)... [facility] 09-11-2022 Note Patient here for 2 w [place] follow up Watchman implant. Says he feels good. Denies chest pain and SOB. Review of Systems Cardiovascular: Positive for leg swelling. Hematologic/Lymphatic: Negative. Musculoskeletal: Positive for arthritis, back pain and myalgias. All other systems reviewed and are negative. [facility] 08-06-2022 Hospital Discharge instructions Patient Education 08/06/2022 [...] VERGARA Address: [facility] [address] [place] [address]- Business (1) When: Unknown Comments:Office will call to schedule follow up [facility] 07-30-2022 Note CONSULTATION CONSULTATION DATE: [...] the patient's pain. The patient currently takes Miles 5/325 on a q.i.d. basis, Lyrica 75 [...] oriented x3, engaging with very good short term/assisted memory. IMPRESSION: Current working diagnosis on the [...] like to maintain. CC: Dr. Elliott [facility] 06-25-2022 Note CONSULTATION CONSULTATION DATE: 06/25/2022 [...] patient currently takes Lyrica 75 mg b.i.d., Miles 5/325 q.i.d., baclofen 10 mg q.h.s. The [...] would like to proceed. CC: Dr. Elliott [facility] 05-17-2022 Note HNO ID: [id number] Author: Minesh Levy APRN.GREETER Service: ? Author Type: Nurse Layout Mechanic Type: Anesthesia Procedure Notes Filed: 05/17/2022 11:19 [...] May 17, 2022 TIME: 11:17 AM CSN: [id number] [facility] 05-17-2022 Note HNO ID: [id number] Author: Minesh Levy APRN.GREETER Service: ? Author Type: Nurse Layout Mechanic Type: Anesthesia Procedure Notes Filed: 05/17/2022 10:39 AM Note Text: ANESTHESIOLOGY PROCEDURE NOTE Airway General Information Procedure Start Time/Medication Administration: 05/17/2022 10:11 AM Patient location during procedure: OR Timeout Performed Pre-procedure: timeout performed Consent Obtained: Yes Patient identity confirmed: arm band and patient Staffing Anesthesiologist: Kandice Guadalupe MD GREETER: Minesh Levy APRN.GREETER Performed by: IGNACIO Indications and Patient Condition Indications for airway management: anesthesia Preoxygenated: yes anesthesia circuit Patient position: sniffing Method: asleep Difficult Mask: No Final Airway Details Final airway type: supraglottic airway Number of attempts at approach: 1 Final Supraglottic Airway: i-gel Size 5 Seal Adequate: yes Failed airway: no Unrecognized esophageal intubation: no Airway not difficult SIGNATURE: Minesh Levy APRN.CRNA PATIENT NAME: Ben Guadalupe DATE: May 17, 2022 TIME: 10:38 AM CSN: [id number] [facility] 05-17-2022 Note HNO ID: [id number] Author: Shruthi Valdez RN Service: Nursing Author Type: Registered Nurse Type: Nursing Progress Note Filed: 05/17/2022 10:04 AM Note Text: Other: Dr. Ruiz and Dr. Guadalupe aware of K+ of 3.0. Awaiting orders. [facility] 05-16-2022 Miscellaneous Notes Attempt to call patient to review prep for surgery tomorrow, no answer, no voicemail available. documented in this encounter [facility] 05-10-2022 Note HNO ID: [id number] Author: Donna Arriaga RN Service: ? Author [...] Time spent on patient education: 20 minutes [facility] 05-10-2022 History of Present illness Narrative [...] education: 20 minutes documented in this encounter [facility] 05-10-2022 Note Education (KADIE) BEN GUADALUPE ([id number]) 1935 M Date Time Provider Department 05/10/22 [...] Encounter Status:Closed by DONNA ARRIAGA on 05/10/22 [facility] 05-10-2022 History and physical note HISTORY [...] Arteriosclerosis of coronary artery 02/12/2022 Atrial fibrillation ([facility]) Benign prostatic hyperplasia with lower urinary tract symptoms 11/27/2021 Calculus of kidney 02/18/2022 Chronic kidney disease, stage 4 (severe) ([facility]) 12/20/2021 Chronic obstructive pulmonary disease ([facility]) 11/27/2021 Deep vein thrombosis (DVT) ([facility]) 1989 LLE- unprovoked Dementia in other diseases classified elsewhere, unspecified severity, without behavioral disturbance, psychotic disturbance, mood disturbance, and anxiety ([facility]) 11/27/2021 Diabetes ([facility]) Diabetes mellitus ([facility]) 11/01/2021 Essential (primary) hypertension 08/13/2017 Gastroesophageal reflux disease with esophagitis 05/10/2022 History of DVT (deep vein thrombosis) 05/10/2022 History of primary malignant neoplasm of urinary bladder 04/22/2022 History of prostate cancer 08/01/2015 Hypothyroidism unspecified 07/10/2021 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 Denies CP, SOB, [...] 442 QTC Calculation (Bazett) 497 Calculated P [place] 37 Calculated R [place] 64 Calculated T [place] -10 Impression NORMAL SINUS RHYTHM COMPLETE RIGHT BUNDLE BRANCH BLOCK INFERIOR T WAVE ABNORMALITY ABNORMAL ECG No results found for this or any previous visit (from the past 79605 hour(s)). OSH Cardiovascular testing ABIs 10/11/2021: Normal [...] Shashi FITCH 03/19/22 PAF (paroxysmal atrial fibrillation) ([facility]) Assessment: admitted to hospital 02/2022 [...] TIME: 1:37 PM documented in this encounter [facility] 05-09-2022 Instructions Afia Downing PA-C - 05/09/2022 12:36 PM EDT PATIENT PREOPERATIVE INSTRUCTIONS Lorraine Wilcox* has scheduled you for your procedure at this surgery center: [facility] [place] [facility] Scheduling Office: [phone] --[address] [place] [address]. Please read below carefully for your personalized [...] or other anticoagulants without consulting with your workforce investment act career manager or prescribing physician. - Stop Vitamin [...] Procedures: - YOU MUST HAVE A RESPONSIBLE BATTERY INSTALLER TAKE YOU HOME. A FUNERAL DRIVER OR RIB PULLER CANNOT BE MADE A RESPONSIBLE BATTERY INSTALLER. - We recommend that a responsible person [...] call the Friday before. Your surgeon s appeals coordinator will tell you what time to call the office. - If you have not reached the departmental appeals coordinator by 5 P.M., call [phone] after 5 P.M. the day before your surgery. Please be aware that emergency situations arise, which may delay or change your surgical time. If this happens, we will notify you as soon as possible and regret any inconvenience. If you already have an Advance Directive, please fax a copy to [phone] or email to for it to be [...] Afia Downing PA-C documented in this encounter [facility] 04-25-2022 Miscellaneous Notes The Patient's granddaughter ( Milly Guadalupe) is calling to confirm surgery date, get all testing scheduled for her grandfather. Please call her at : [phone] at 11:30 AM or later, as she is at an appointment now. Thank you. documented in this encounter [facility] 04-24-2022 Miscellaneous Notes SPECIALTY CARE COORDINATION FOLLOW-UP NOTE Message left Pt to call in to discuss setting up surgery Offered 05/17/22 surgical date Any pre-operative business date within 30 days of surgical date Call back number left Signature Marika Zuñiga RN April 24, 2022 documented in this encounter [facility] 04-22-2022 Hospital Discharge instructions Patient Education [...] who: Are older than age 65. Are -[place]. Are obese. Have a family history of [...] cells. Follow these instructions at home: Take zjpx-tnc-tjbmvco and prescription medicines only as told by [...] 06/23/2006 Document Revised: 06/05/2018 Document Reviewed: 03/03/2017 [employer] Patient Education 2020 [employer]. Follow Up Care 02/25/2022 17:01:47 With:URSULA WORKMAN, Mekhi Oh, URL Address: [facility] [address], [place] [phone] When:10/21/[address] [facility] 04-17-2022 History and physical note COLORECTAL SURGERY [...] closed Resting tone: NORMAL Squeeze tone: NORMAL Jde Developer present: Yes Anoscopy: The patient was placed [...] treatment plan: high documented in this encounter [facility] 04-11-2022 Note CONSULTATION PROCEDURE DATE: 04/11/2022 [...] be followed up in the office. 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 His lower back feels tight, achy and spasmodic. He is having increasing bilateral lower extremity pain. Activities that aggravate his pain are standing, walking, lying, sitting and any physical activity. The use of medication, in addition to heat, decreases his pain. Medications include Lyrica 75 mg b.i.d., baclofen 10 mg q.h.s., Miles 5/325 q.i. d. and a multivitamin regimen. [...] Lyrica and other medications well with no LINING FOLDER side effects. Patient agrees with the plan of care, will be followed up post procedure. [facility] 02-14-2022 Note CONSULTATION PROCEDURE DATE: 02/14/2022 [...] be followed up in the clinic. [facility] 02-14-2022 Note CONSULTATION CONSULTATION DATE: 02/14/2022 [...] and he was in obvious distress. His Miles was increased to 5/325 q.i.d. at that time, which has been helpful. The patient states since the introduction of the Lyrica to his regimen that his Miles is back down to t.i.d. The intent [...] of this medication in addition to the Miles. Patient agrees with the plan of care and will be seen in eight weeks time unless otherwise indicated. [facility] 01-10-2022 Note CONSULTATION CONSULTATION DATE: 01/10/2022 [...] at home. Medication includes at this time Miles 5/325 t.i.d., baclofen 10 mg daily and [...] the patient and noting his distress, his Miles 5/325 will be increased to four times a day. He will be started on Lyrica 50 mg b.i.d. 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 He will receive bilateral lumbar trigger point injections in the office today as well. He will return to the clinic in six weeks' time to re-evaluate his pain pattern and efficacy of the Lyrica. Patient does agree. [facility] 01-10-2022 Note CONSULTATION PROCEDURE DATE: 01/30/2022 [...] procedure well with no overt complications. [facility] 11-29-2021 Note CONSULTATION PROCEDURE DATE: 11/29/2021 [...] will be followed up in the clinic. [facility] Signed and Approved by: CALVIN MOREJON . 12/06/2021 16:01:00 [facility] 11-29-2021 Note CONSULTATION CONSULTATION DATE: 11/29/2021 [...] lower lumbar area. 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 He does use heat daily which is helpful, in addition to Vicks VapoRub. Medications include baclofen 10 mg q.h.s., Miles 5/325 t.i.d. and a multivitamin regimen. The [...] degenerative disc. PLAN: A refill for his Miles 5/325 t.i.d. will be sent to the pharmacy. Patient will receive bilateral lumbar trigger point injections, which he agrees to receive here in the clinic. We will maintain his medications at the current regimen. He is to increase the amount of frequency of heat application and menthol heat rub. We will see the patient in six weeks' time unless otherwise indicated. [facility] Signed and Approved by: CALVIN MOREJON . 12/06/2021 16:01:00 [facility] 11-21-2021 Note OPERATIVE NOTE OPERATION DATE: 11/21/2021 [...] in good condition. CC: Shaikh Lexi M.D. [facility] Signed and Approved by: DR YENNI STANLEY . 11/28/2021 10:45:00 [facility] 10-09-2021 Hospital Discharge instructions Patient Education 10/09/2021 [...] 03/19/2005 Document Revised: 10/08/2018 Document Reviewed: 10/08/2018 [employer] Patient Education 2020 [employer] Follow Up Care 10/01/2021 07:48:54 With:Iraida James CNP Address: When:3 months only if needed [facility] Evaluation + Plan note Future Appointments Appointment Date:10/16/2021 02:20:00 PM Scheduled Provider: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 MD Location:[facility] Appointment Type:[facility] Evaluation + Plan note Future Appointments Appointment Date:04/30/2022 01:40:00 PM Scheduled Provider: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 MD Location:[facility] Appointment Type: Appointment Date:10/21/2022 03:15:00 PM Scheduled Provider:Mekhi VERGARA MD Location:[facility] Appointment Type:URO Office Visit Diagnostic Tests PendingPSA Total 04/22/[address] [facility] Evaluation + Plan note Future Appointments Appointment Date:10/21/2022 03:15:00 PM Scheduled Provider:Mekhi VERGARA MD Location:[facility] Appointment Type:URO Office Visit Diagnostic Tests PendingUroVysion Fish and Urine Cyto ([facility]) 08/06/22 [facility] Evaluation + Plan note Future Appointments Appointment Date:06/23/2023 03:00:00 PM Scheduled Provider:Mekhi VERGARA MD Location:[facility] Appointment Type:URO Office Visit Diagnostic Tests PendingPSA Total 12/23/22 [facility] Evaluation note Diagnosis Fourth degree hemorrhoids- Primary Unspecified hemorrhoids with other complication [facility] Diagnosis Pre-op evaluation- Primary Preoperative examination, [...] Coronary atherosclerosis of unspecified type of vessel, [place] or graft PAF (paroxysmal atrial fibrillation) (HCC) [...] with other complication [facility] Diagnosis Chronic venous insufficiency of lower extremity Chronic heart failure with preserved ejection fraction (CMS/HCC) Chronic bilateral low back pain with bilateral sciatica documented in this encounter [facility]* Diagnosis Chronic venous insufficiency of lower extremity Chronic heart failure with preserved ejection fraction (CMS/HCC) documented in this encounter [facility] Narrative No data available for this section [facility] Discharge instructions No data available for this section General Surgery [employer] Progress note No data available for this section [facility] Summary Purpose Family History No Family History Records FoundNo Family History Records FoundNo Family History Records FoundNo Family History Records FoundNo Family History Records Found No data available for this section No data available for this section No Family History Records Found No data available [...] DATE CREATED AUTHOR AUTHOR'S ORGANIZ ATION 05/31/2022 [facility] DATE CREATED AUTHOR AUTHOR'S ORGANIZ ATION 11/02/2022 [facility] DATE CREATED AUTHOR AUTHOR'S ORGANIZ ATION 06/20/2023 [facility] DATE CREATED AUTHOR AUTHOR'S ORGANIZ ATION 07/29/2023 [facility] DATE CREATED AUTHOR AUTHOR'S ORGANIZ ATION 09/05/2023 [facility] DATE CREATED AUTHOR AUTHOR'S ORGANIZ ATION 07/20/2024 Enrique Lovelace [facility] Source Comments (unrecognize d section and content) In the event this informatio n is protected by the Federal Confidentiality of Alcohol and Drug Abuse Patient Records regulations: The Federal rules restrict any use of the information to criminally investigate or prosecute any alcohol or drug abuse patient.[facility] the event this information is protected by the Federal Confidentiality of Alcohol and Drug Abuse Patient Records regulations: The Federal rules restrict any use of the information to criminally investigate or prosecute any alcohol or drug abuse patient.[facility] the event this information is protected by the Federal Confidentiality of Alcohol and Drug Abuse Patient Records regulations: The Federal rules restrict any use of the information to criminally investigate or prosecute any alcohol or drug abuse patient.[facility] the event this information is protected by the Federal Confidentiality of Alcohol and Drug Abuse Patient Records regulations: The Federal rules restrict any use of the information to criminally investigate or prosecute any alcohol or drug abuse patient.[facility] the event this information is protected by the Federal Confidentiality of Alcohol and Drug Abuse Patient Records regulations: The Federal rules restrict any use of the information to criminally investigate or prosecute any alcohol or drug abuse patient.[facility] the event this information is protected by the Federal Confidentiality of Alcohol and Drug Abuse Patient Records regulations: The Federal rules restrict any use of the information to criminally investigate or prosecute any alcohol or drug abuse patient.[facility] Reason for Visit (unrecogniz ed section and content) Reason Comments 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 Reason Comments Appointment Reason Comments Pre-Op Visit Reason Comments Patient Education Reason Onset Date Comments Med Refill 03/09/2024 Care Teams (unrecognized sec tion and content) Air Tube Releaser Relationship Specialty Start Date End Date Franky Veronica PCP - General Internal Medicine 06/16/12 Air Tube Releaser Relationship Specialty Start Date End Date Franky Veronica PCP - General Internal Medicine 06/16/12 Air Tube Releaser Relationship Specialty Start Date End Date Franky Veronica (Fax) PCP - General Internal Medicine 06/16/12 Air Tube Releaser Relationship Specialty Start Date End Date Franky Veronica (Fax) PCP - General Internal Medicine 06/16/12 Air Tube Releaser Relationship Specialty Start Date End Date Franky Veronica (Fax) PCP - General Internal Medicine 06/16/12 Air Tube Releaser Relationship Specialty Start Date End Date Shaikh Elliott MD PCP - General Internal Medicine 05/07/23 Air Tube Releaser Relationship Specialty Start Date End Date Shaikh Elliott MD PCP - General Internal Medicine 05/07/23 Air Tube Releaser Relationship Specialty Start Date End Date Shaikh [...] BE BASED ON THE PRIMARY CLINICAL RECORDS. [employer] [facility]. provides no warranty or guarantee of the accuracy or completeness of information in this document.
--- NOTE | 2024-07-22 09:59 | CT_ITS ---
[address] [address] Patient Name: GUILLERMINA GUADALUPE MRN: [id number] date: 1935 Sex: M Assigned Patient Location: ER Current Patient Location: Accession/Order Number: [id number] Exam Date: 07/22/2024 10:09 Report Date: 07/22/2024 10:37 At the request of: WILD ORTIZ Procedure: CT head/brain wo con CT HEAD WITHOUT CONTRAST, 07/22/2024 HISTORY: Fell. Hit head. COMPARISON: CT head, 05/11/2019. TECHNIQUE: Noncontrast axial CT images obtained through the head. Reconstructions obtained in the sagittal and coronal planes. Dose reduction techniques were achieved by using automated exposure control and/or adjustment of mA and/or kV according to patient size and/or use of iterative reconstruction technique. FINDINGS: Small amount of fluid in the right maxillary sinus and sphenoid sinuses. Middle ear cavities clear. Mastoid air cells are clear. The skull base is intact. No skull fractures. There is a craniotomy in the left parietal region that is a stable finding. Prior cataract surgery. Nasopharynx normal. Large amount of brain atrophy. No subdural fluid collection. No mass effect. No shift of midline. No acute hemorrhage. No mass. CT/CT head/brain wo con IMPRESSION: 1. No acute intracranial findings. There is no acute intracranial hemorrhage. No skull fracture. 2. Large amount of brain atrophy stable. Electronically authenticated by: RINA DOBBS Date: 07/22/2024 10:37
[2024-07-22 10:09] LABS: Basophils Percent Auto 0.2 % (0.2-2.0); Eosinophils Percent Auto 0.3 % (0.9-7.0); Hematocrit 33.5 % (42.0-54.0); Hemoglobin 10.8 g/dL (14.0-18.0); Immature Granulocytes Abs Auto 0.09 10^3/uL (0.00-0.03); Lymphocytes Absolute Auto 0.7 10^3/uL (1.2-3.8); Lymphocytes Percent Auto 8.3 % (20.5-60.0); Mean Corpuscular HGB Conc 32.2 g/dL (29.9-35.2); Mean Corpuscular Hemoglobin 27.2 pg (25.9-34.0); Mean Corpuscular Volume 84.4 fL (80.0-94.0); Mean Platelet Volume 9.6 fL (9.5-13.5); Monocytes Absolute Auto 0.4 10^3/uL (0.3-0.8); Monocytes Percent Auto 4.9 % (1.7-12.0); Neutrophils Absolute Auto 7.6 10^3/uL (1.4-6.5); Neutrophils Percent Auto 85.3 % (43.0-75.0); Platelet Count 173 10^3/uL (150-450); Red Blood Count 3.97 10^6/uL (4.70-6.10); Red Cell Distribution Width 14.7 % (11.0-15.0); White Blood Count 8.9 10^3/uL (4.0-11.0)
[2024-07-22 10:10] LABS: Bilirubin Urine NEGATIVE (NEGATIVE); Blood Urine LARGE (NEGATIVE); Clarity Urine CLOUDY (CLEAR); Glucose Urine UA >=1000 mg/dL (NEGATIVE); Ketones Urine TRACE mg/dL (NEGATIVE); Leukocyte Esterase Urine MODERATE (NEGATIVE); Nitrite Urine NEGATIVE (NEGATIVE); Protein Urine 100 mg/dL (NEG/TRACE); Urobilinogen Urine 0.2 EU/dL (0.2-1.0)
[2024-07-22 10:12] LABS: Color Urine DK YELLOW (YELLOW); Urine Microscopic Indicated YES
--- NOTE | 2024-07-22 10:16 | ED.GENADUL1 ---
HPI HPI - General Adult General Chief complaint: Urogenital-Male Stated complaint: POSSIBLE UTI POSSIBLE SEPSIS Time Seen by Provider: 07/22/24 09:46 Source: patient and family Mode of arrival: Wheelchair Limitations: physical limitation History of Present Illness HPI narrative: The patient presented to us with a known history of hospice care, although the family at the bedside mentioned that he only have a caregiver that comes twice a day and he lived by himself, this is the second time that they were concerned about urine infection ultimately status and multiple falls, the patient himself denies any complain he is hard of hearing but have no complaint The patient apparently had a fall yesterday with no known mechanism where his nephew came to the bedside and found that he was on the floor The patient himself denied any loss of consciousness or head injury Patient also have a chronic Dodge catheter that is in place for the last few years , last changed 2 weeks ago Related Data Home Medications ?Medication ?Instructions ?Recorded ?Confirmed albuterol sulfate 90 mcg/actuation 1 inh inhalation Q4H PRN shortness 12/27/22 05/22/24 aerosol inhaler (ProAir HFA) of breath or wheezing allopurinol 300 mg tablet 300 mg PO DAILY 12/27/22 05/22/24 cholecalciferol (vitamin D3) 25 50 mcg PO DAILY 12/27/22 05/22/24 mcg (1,000 unit) capsule (Vitamin D3) levothyroxine 50 mcg tablet 50 mcg PO DAILY 12/27/22 05/22/24 nitroglycerin 0.4 mg sublingual 0.4 mg sublingual Q5M PRN chest 12/27/22 05/22/24 tablet (Nitrostat) pain aspirin 81 mg capsule 81 mg PO DAILY 01/09/23 05/22/24 diltiazem HCl 180 mg 180 mg PO DAILY 01/09/23 05/22/24 capsule,extended release 24 hr famotidine 20 mg tablet 20 mg PO DAILY 01/09/23 05/22/24 ferrous sulfate 325 mg (65 mg 325 mg PO .every other day 01/09/23 05/22/24 iron) tablet fluticasone propionate 50 2 spray intranasal DAILY PRN nasal 01/09/23 05/22/24 mcg/actuation nasal congestion spray,suspension (Flonase Allergy Relief) magnesium aspart,citrate,oxide 400 mg PO BEDTIME 01/09/23 05/22/24 metoprolol tartrate 25 mg tablet 25 mg PO BID 01/09/23 05/22/24 psyllium husk 0.4 gram capsule 0.4 g PO DAILY 01/09/23 05/22/24 (Metamucil) tamsulosin 0.4 mg capsule (Flomax) 0.4 mg PO DAILY 01/09/23 05/22/24 atorvastatin 20 mg tablet 20 mg PO DAILY 01/10/23 05/22/24 baclofen 10 mg tablet 10 mg PO BID muscle spasm 01/10/23 05/22/24 Lactobacillus rhamnosus GG 10 1 cap PO DAILY 07/18/23 05/22/24 billion cell capsule (Culturelle) glipizide 5 mg tablet 5 mg PO BID 07/18/23 05/22/24 multivitamin 1 tab PO BID 07/18/23 05/22/24 acetaminophen 500 mg tablet 1,000 mg PO Q8H PRN pain 09/13/23 05/22/24 (Tylenol Extra Strength) potassium chloride 20 mEq 20 meq PO DAILY 09/13/23 05/22/24 tablet,extended release(part/cryst) (Klor-Con M) loperamide 2 mg tablet 2 mg PO Q6H PRN loose stool 05/22/24 05/22/24 metformin 500 mg tablet,extended 500 mg PO DAILY 05/22/24 05/22/24 release 24 hr methenamine hippurate 1 gram tablet 1 g PO Q12H 05/22/24 05/22/24 metoclopramide HCl 5 mg tablet 5 mg PO Q6H PRN nausea and vomiting 05/22/24 05/22/24 ondansetron HCl 8 mg tablet 8 mg PO Q8H PRN nausea and vomiting 05/22/24 05/22/24 donepezil 10 mg tablet 10 mg PO DAILY 05/23/24 05/23/24 sennosides 8.6 mg-docusate sodium 1 tab-cap PO DAILY 05/23/24 05/23/24 50 mg tablet (Stimulant Laxative Plus) Previous Rx's ?Medication ?Instructions ?Recorded pregabalin 100 mg capsule (Lyrica) 100 mg PO TID 5 days #15 caps 08/25/23 furosemide 20 mg tablet 40 mg (2 x 20 mg) PO DAILY #0 tabs 09/16/23 losartan 100 mg tablet 50 mg (1/2 x 100 mg) PO DAILY #0 09/16/23 tabs cefuroxime axetil 250 mg tablet 250 mg PO DAILY 7 days #7 tabs 05/28/24 guaifenesin 600 mg tablet, 600 mg PO Q12H PRN Cough #0 tabs 05/28/24 extended release 12 hr (Mucinex) morphine 30 mg tablet,extended 15 mg (1/2 x 30 mg) PO Q12H #0 tabs 05/28/24 release cephalexin 500 mg capsule 500 mg PO Q8H 7 days #21 caps 07/22/24 Allergies Allergy/AdvReac Type Severity Reaction Status Date / Time tizanidine (From Zanaflex) Allergy Unknown Unknown Verified 05/31/24 11:57 acetaminophen (From Percocet) AdvReac Mild Vomiting Verified 05/31/24 11:57 cyclobenzaprine (From AdvReac Mild Hallucinati Verified 05/31/24 11:57 Flexeril) ng oxycodone (From Percocet) AdvReac Mild Vomiting Verified 05/31/24 11:57 tramadol AdvReac Mild Vomiting Verified 05/31/24 11:57 Opioid HPI Opioid Management Most Recent Opioid Data: Last Pain Scale 6 05/27/24 16:05 05/27/24 Last Pain Intensity 10 09/16/23 11:39 09/16/23 Last ORT Total Score 0 05/22/24 18:31 05/22/24 Last ORT Risk Category Low Risk 05/22/24 18:31 05/22/24 Review of Systems ROS Status of ROS 10 or more systems reviewed and unremarkable except as noted in history and below [facility] Medical History (Updated 07/22/24 @ 11:44 by Raven Schmid MD) GERD without esophagitis ?K21.9 - Gastro-esophageal reflux disease without esophagitis (ICD-10) Hypothyroidism (acquired) ?E03.9 - Hypothyroidism, unspecified (ICD-10) DNR (do not resuscitate) ?Z66 - Do not resuscitate (ICD-10) Chronic indwelling Dodge catheter ?Z97.8 - Presence of other specified devices (ICD-10) E. coli UTI ?N39.0 - Urinary tract infection, site not specified (ICD-10) ?B96.20 - Unspecified Escherichia coli [E. coli] as the cause of diseases classified elsewhere (ICD-10) Yeast infection ?B37.9 - Candidiasis, unspecified (ICD-10) Cellulitis of scrotum ?N49.2 - Inflammatory disorders of scrotum (ICD-10) Decubitus ulcer of sacral area ?L89.159 - Pressure ulcer of sacral region, unspecified stage (ICD-10) DDD (degenerative disc disease), lumbar ?M51.36 - Other intervertebral disc degeneration, lumbar region (ICD-10) Lumbar radiculopathy ?M54.16 - Radiculopathy, lumbar region (ICD-10) Intractable low back pain ?M54.59 - Other low back pain (ICD-10) Unable to ambulate ?R26.2 - Difficulty in walking, not elsewhere classified (ICD-10) Chronic kidney disease ?N18.9 - Chronic kidney disease, unspecified (ICD-10) Spondylosis ?M47.9 - Spondylosis, unspecified (ICD-10) Radiculopathy ?M54.10 - Radiculopathy, site unspecified (ICD-10) Chronic diastolic heart failure ?I50.32 - Chronic diastolic (congestive) heart failure (ICD-10) Type 2 diabetes mellitus ?E11.9 - Type 2 diabetes mellitus without complications (ICD-10) Afib ?I48.91 - Unspecified atrial fibrillation (ICD-10) Spinal stenosis ?M48.00 - Spinal stenosis, site unspecified (ICD-10) Peripheral edema ?R60.0 - Localized edema (ICD-10) Hypertension ?I10 - Essential (primary) hypertension (ICD-10) Lumbar spondylosis ?M47.816 - Spondylosis without myelopathy or radiculopathy, lumbar region (ICD-10) Chronic low back pain ?M54.50 - Low back pain, unspecified (ICD-10) ?G89.29 - Other chronic pain (ICD-10) Anxiety ?F41.9 - Anxiety disorder, unspecified (ICD-10) Shortness of breath ?R06.02 - Shortness of breath (ICD-10) 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 ?R33.9 - Retention of urine, unspecified (ICD-10) Ambulatory dysfunction ?R26.2 - Difficulty in walking, not elsewhere classified (ICD-10) HLD (hyperlipidemia) ?E78.5 - Hyperlipidemia, unspecified (ICD-10) Depression with anxiety ?F41.8 - Other specified anxiety disorders (ICD-10) Acute hypokalemia ?E87.6 - Hypokalemia (ICD-10) Intractable low back pain ?M54.59 - Other low back pain (ICD-10) CKD stage 3 due to type 2 diabetes mellitus ?E11.22 - Type 2 diabetes mellitus with diabetic chronic kidney disease (ICD-10) ?N18.30 - Chronic kidney disease, stage 3 unspecified (ICD-10) Lumbar stenosis with neurogenic claudication ?M48.062 - Spinal stenosis, lumbar region with neurogenic claudication (ICD-10) Osteoarthritis of right knee ?M17.11 - Unilateral primary osteoarthritis, right knee (ICD-10) Chronic pain syndrome ?G89.4 - Chronic pain syndrome (ICD-10) Chronic prescription opiate use ?Z79.891 - halfway (current) use of opiate analgesic (ICD-10) Osteoarthritis, 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 - Primary osteoarthritis, unspecified shoulder (ICD-10) Right shoulder pain ?M25.511 - Pain in right shoulder (ICD-10) Lumbar radiculopathy ?M54.16 - Radiculopathy, lumbar region (ICD-10) Abdominal pain ?R10.9 - Unspecified abdominal pain (ICD-10) Nausea & vomiting ?R11.2 - Nausea with vomiting, unspecified (ICD-10) Esophagitis ?K20.90 - Esophagitis, unspecified without bleeding (ICD-10) Muscle spasm ?M62.838 - Other muscle spasm (ICD-10) Lumbar stenosis ?M48.061 - Spinal stenosis, lumbar region without neurogenic claudication (ICD-10) Retraction of blood clot ?I74.9 - Embolism and thrombosis of unspecified artery (ICD-10) Inguinal hernia ?K40.90 - Unilateral inguinal hernia, without obstruction or gangrene, not specified as recurrent (ICD-10) Presence of Watchman left atrial appendage closure device ?Z95.818 - Presence of other cardiac implants and grafts (ICD-10) Low back pain ?M54.50 - Low back pain, unspecified (ICD-10) Rheumatoid arthritis ?M06.9 - Rheumatoid arthritis, unspecified (ICD-10) Osteoarthritis ?M19.90 - Unspecified osteoarthritis, unspecified site (ICD-10) Gout ?M10.9 - Gout, unspecified (ICD-10) DVT (deep venous thrombosis) ?I82.409 - Acute embolism and thrombosis of unspecified deep veins of unspecified lower extremity (ICD-10) Hearing deficit ?H91.90 - Unspecified hearing loss, unspecified ear (ICD-10) IBS (irritable bowel syndrome) ?K58.9 - Irritable bowel syndrome without diarrhea (ICD-10) Acid reflux ?K21.9 - Gastro-esophageal reflux disease without esophagitis (ICD-10) Hypothyroid ?E03.9 - Hypothyroidism, unspecified (ICD-10) Diabetes 1.5, managed as type 2 ?E13.9 - Other specified diabetes mellitus without complications (ICD-10) Kidney stone ?N20.0 - Calculus of kidney (ICD-10) Prostate cancer ?C61 - Malignant neoplasm of prostate (ICD-10) CPAP (continuous positive airway pressure) dependence ?Z99.89 - Dependence on other enabling machines and devices (ICD-10) Sleep apnea ?G47.30 - Sleep apnea, unspecified (ICD-10) Hypercholesterolemia ?E78.00 - Pure hypercholesterolemia, unspecified (ICD-10) Surgical History H/O transurethral resection of bladder tumor (TURBT) ?Z98.890 - Other specified postprocedural states (ICD-10) ?Z86.03 - Personal history of neoplasm of uncertain behavior (ICD-10) H/O arthroscopy of knee ?Z98.890 - Other specified postprocedural states (ICD-10) S/P tonsillectomy and adenoidectomy ?Z90.89 - Acquired absence of other organs (ICD-10) Previous back surgery ?Z98.890 - Other specified postprocedural states (ICD-10) H/O neck surgery ?Z98.890 - Other specified postprocedural states (ICD-10) Family History Other Family history of diabetes mellitus Social History Within the past year, how often did you have a drink containing alcohol: never Score interpretation: A score less than 4 is consistent with normal alcohol consumption. Smoking status: Never smoker Non-prescribed substance use: denies use Previous occupational history: retired Known occupational exposures/hazards: No Highest level of school completed/degree received: high school graduate Are you now , , , , never or living with a partner: In a typical week, how many times do you talk on the telephone with family, friends, or neighbors: 3 or more times per week How often do you get together with friends or relatives: 3 or more times per week How often do you attend taoist or mormonism services: never Do you belong to any clubs or organizations such as taoist groups unions, fraternal or athletic groups, or school groups: no Total score: 1 Score interpretation: A score of less than or equal to 1 indicates the most socially isolated. Little interest or pleasure in doing things: not at all Feeling down, depressed, or hopeless: not at all Feel stressed/tense/nervous/anxious/difficulty sleeping: not at all Do you think of yourself as: straight/heterosexual Gender Identity: male Exam Narrative Exam Narrative: Nurses notes and vital signs reviewed and patient is not hypoxic. General: Well-appearing and in no apparent distress. Skin: Warm, dry, no pallor noted. No rash. Head: Normocephalic, atraumatic. Neck: Supple, non-tender. Eye: Pupils are equal, round and EOMI. No scleral icterus. Ears, Nose, Mouth, and Throat: TM are clear, no nasal mucosal hypertrophy. Oral mucosa is moist, no posterior oropharynx erythema, uvula is mid-line Cardiovascular: Regular Rate and Rhythm without murmur, gallop or rub. Respiratory: No accessory muscle use or respiratory distress. Lungs are clear to auscultation, no wheezing, rales or rhonchi Chest Wall: no tenderness Back: No midline thoracic or lumbar vertebral tenderness. No CVA tenderness Musculoskeletal: normal ROM, no calf or popliteal tenderness, no lower extremity edema/swelling GI: Abdomen is soft, non-distended. Normal bowel sounds. No masses appreciated. No tenderness to palpation. No rebound, guarding, or rigidity noted. Neurological: A&O x1 No cranial nerve dysfunction observed. Moves all extremities. Sensation intact. Constitutional Vital Signs, click to edit/add: Last Vital Signs Temp 98.4 F 07/22/24 09:37 Pulse 105 H 07/22/24 09:37 Resp 18 07/22/24 09:37 BP 156/89 H 07/22/24 09:37 Pulse Ox 96 07/22/24 09:37 O2 Del Method Room Air 07/22/24 09:37 Course Vital Signs Vital signs: Vital Signs Temperature 98.4 F 07/22/24 09:37 Pulse Rate 105 H 07/22/24 09:37 Respiratory Rate 18 07/22/24 09:37 Blood Pressure 156/89 H 07/22/24 09:37 Pulse Oximetry 96 07/22/24 09:37 Oxygen Delivery Method Room Air 07/22/24 09:37 Temperature 98.4 F 07/22/24 09:37 Pulse Rate 105 H 07/22/24 09:37 Respiratory Rate 18 07/22/24 09:37 Blood Pressure 156/89 H 07/22/24 09:37 Pulse Oximetry 96 07/22/24 09:37 Oxygen Delivery Method Room Air 07/22/24 09:37 Medical Decision Making MDM Narrative Medical decision making narrative: The patient CBC and chemistry showed no acute significant pathology and the patient urinalysis positive for possible UTI but with his history of catheter placement he will need a culture to confirm this He was started on Keflex for that The patient CT of the head showed no acute pathology the main concern was the fact that the patient did not have enough care at home and he is in hospice care by [facility] I spoke with [facility] and they mentioned that they will place the patient for 5 days of rest for the family until evaluation and one of the facilities they have contracted with Right now there is no need to admit the patient to our facility they contacted the family for further evaluation by [facility] The patient is to follow up with primary care physician in next 2-3 days or to return to the emergency department should any of the signs or symptoms worsen or new symptoms develop. The patient agrees with the following Diagnosis and Treatment plan and the patient will be discharged home. Lab Data Labs: Lab Results 07/22/24 07/22/24 Range/Units 09:45 09:50 WBC 8.9 (4.0-11.0) 10^3/uL RBC 3.97 L (4.70-6.10) 10^6/uL Hgb 10.8 L (14.0-18.0) g/dL Hct 33.5 L (42.0-54.0) % MCV 84.4 (80.0-94.0) fL MCH 27.2 (25.9-34.0) pg MCHC 32.2 (29.9-35.2) g/dL RDW 14.7 (11.0-15.0) % Plt Count 173 (150-450) 10^3/uL MPV 9.6 (9.5-13.5) fL Neut % (Auto) 85.3 H (43.0-75.0) % Lymph % (Auto) 8.3 L (20.5-60.0) % Leon % (Auto) 4.9 (1.7-12.0) % Eos % (Auto) 0.3 L (0.9-7.0) % Baso % (Auto) 0.2 (0.2-2.0) % Neut # (Auto) 7.6 H (1.4-6.5) 10^3/uL Lymph # (Auto) 0.7 L (1.2-3.8) 10^3/uL Leon # (Auto) 0.4 (0.3-0.8) 10^3/uL Eos # (Auto) 0.0 (0.0-0.7) 10^3/uL Baso # (Auto) 0.0 (0.0-0.1) 10^3/uL Abs Immat Gran (auto) 0.09 H (0.00-0.03) 10^3/uL Imm/Tot Granulo (auto) 1.0 H (0.0-0.5) % Sodium 137 (136-145) mmol/L Potassium 3.5 (3.5-5.1) mmol/L Chloride 100 (98-107) mmol/L Carbon Dioxide 25.2 (21.0-32.0) mmol/L Anion Gap 15.3 BUN 18.0 (7.0-18.0) mg/dL Creatinine 1.28 (0.70-1.30) mg/dL Est GFR ( Amer) >60 (>=60 mL/min/1.73m^2) Est GFR (Non-Af Amer) 53 L (>=60 mL/min/1.73m^2) BUN/Creatinine Ratio 14.1 Glucose 367 H (74-106) mg/dL Lactate 1.3 (0.4-2.0) mmol/L Calcium 8.7 (8.5-10.1) mg/dL Total Bilirubin 0.5 (0.2-1.0) mg/dL AST 9 L (15-37) U/L ALT 15 L (16-63) U/L Alkaline Phosphatase 99 (46-116) U/L Total Protein 7.2 (6.4-8.2) g/dL Albumin 2.7 L (3.4-5.0) g/dL Globulin 4.5 g/dL Albumin/Globulin Ratio 0.6 Urine Color Dk yellow (YELLOW) Urine Clarity Cloudy A (CLEAR) Urine pH 6.0 (5.0-9.0) Ur Specific [place] 1.020 (1.005-1.025) Urine Protein 100 A (NEG/TRACE) mg/dL Urine Glucose (UA) >=1000 A (NEGATIVE) mg/dL Urine Ketones Trace A (NEGATIVE) mg/dL Urine Occult Blood Large A (NEGATIVE) Urine Nitrite Negative (NEGATIVE) Urine Bilirubin Negative (NEGATIVE) Urine Urobilinogen 0.2 (0.2-1.0) EU/dL Ur Leukocyte Esterase Moderate A (NEGATIVE) Urine RBC 20-50 A (0-2) #/HPF Urine WBC >100 A (NONE SEEN) #/HPF Ur Squamous Epith Cells None seen (NONE/RARE) #/LPF Urine Crystals None seen (None Seen) #/HPF Urine Bacteria Large A (NONE SEEN) #/HPF Urine Casts None seen (NONE SEEN) #/LPF Urine Mucus None seen (NONE SEEN) Urine Yeast Seen A (NONE SEEN) Ur Culture Indicated? Yes Discharge Plan Discharge Chief Complaint: Urogenital-Male Clinical Impression: Bacterial UTI, Hospice care Patient Disposition: Home, Self-Care Time of Disposition Decision: 11:44 Condition: Good Mode of Transportation: Private Vehicle Prescriptions / Home Meds: New cephalexin 500 mg capsule 500 mg PO Q8H 7 Days Qty: 21 0RF No Action aspirin 81 mg capsule 81 mg PO DAILY diltiazem HCl 180 mg capsule,extended release 24hr 180 mg PO DAILY ferrous sulfate 325 mg (65 mg iron) tablet 325 mg PO .every other day famotidine 20 mg tablet 20 mg PO DAILY tamsulosin [Flomax] 0.4 mg capsule 0.4 mg PO DAILY fluticasone propionate [Flonase Allergy Relief] 50 mcg/actuation spray,suspension 2 spray intranasal DAILY PRN (Reason: nasal congestion) Rx Instructions: administer into each nostril magnesium aspart,citrate,oxide 400 mg magnesium capsule 400 mg PO BEDTIME psyllium husk [Metamucil] 0.4 gram capsule 0.4 g PO DAILY metoprolol tartrate 25 mg tablet 25 mg PO BID atorvastatin 20 mg tablet 20 mg PO DAILY baclofen 10 mg tablet 10 mg PO BID pregabalin [Lyrica] 100 mg capsule 100 mg PO TID 5 Days Qty: 15 0RF acetaminophen [Tylenol Extra Strength] 500 mg tablet 1,000 mg PO Q8H PRN (Reason: pain) potassium chloride [Klor-Con M20] 20 mEq tablet,ER particles/crystals 20 meq PO DAILY furosemide 20 mg tablet 40 mg PO DAILY Qty: 0 0RF losartan 100 mg tablet 50 mg PO DAILY Qty: 0 0RF Culturelle 10 billion cell capsule 1 cap PO DAILY multivitamin Tablet 1 tab PO BID glipizide 5 mg tablet 5 mg PO BID ondansetron HCl 8 mg tablet 8 mg PO Q8H PRN (Reason: nausea and vomiting) loperamide 2 mg tablet 2 mg PO Q6H PRN (Reason: loose stool) methenamine hippurate 1 gram tablet 1 g PO Q12H metoclopramide HCl 5 mg tablet 5 mg PO Q6H PRN (Reason: nausea and vomiting) metformin 500 mg tablet extended release 24 hr 500 mg PO DAILY sennosides-docusate sodium [Stimulant Laxative Plus] 8.6-50 mg tablet 1 tab-cap PO DAILY donepezil 10 mg tablet 10 mg PO DAILY cefuroxime axetil 250 mg tablet 250 mg PO DAILY 7 Days Qty: 7 0RF morphine 30 mg tablet extended release 15 mg PO Q12H Qty: 0 0RF guaifenesin [Mucinex] 600 mg tablet extended release 12hr 600 mg PO Q12H PRN (Reason: Cough) Qty: 0 0RF allopurinol 300 mg tablet 300 mg PO DAILY levothyroxine 50 mcg tablet 50 mcg PO DAILY cholecalciferol (vitamin D3) [Vitamin D3] 25 mcg (1,000 unit) capsule 50 mcg PO DAILY albuterol sulfate [ProAir HFA] 90 mcg/actuation HFA aerosol inhaler 1 inh inhalation Q4H PRN (Reason: shortness of breath or wheezing) nitroglycerin [Nitrostat] 0.4 mg tablet, sublingual 0.4 mg sublingual Q5M PRN (Reason: chest pain) Rx Instructions: do not exceed 3 doses per episode Print Language: Tunisian Instructions: Fall Prevention (ED) Referrals: Physician,Non-Staff, MD [Primary Care Provider] - 1 week Discharge Date/Time: 07/22/24 12:10
[2024-07-22 10:18] LABS: Bacteria Urine LARGE #/HPF (NONE SEEN); Cast Seen? NONE SEEN #/LPF (NONE SEEN); Crystals Seen? None Seen #/HPF (None Seen); Mucus Urine NONE SEEN (NONE SEEN); RBC Urine 20-50 #/HPF (0-2); Squamous Epithelial Cell Urine NONE SEEN #/LPF (NONE/RARE); Urine Culture Indicated YES; WBC Urine >100 #/HPF (NONE SEEN)
[2024-07-22 10:24] LABS: Alanine Aminotransferase 15 U/L (16-63); Albumin Globulin Ratio 0.6; Albumin Level 2.7 g/dL (3.4-5.0); Alkaline Phosphatase 99 U/L (46-116); Anion Gap 15.3; Aspartate Amino Transferase 9 U/L (15-37); BUN Creatinine Ratio 14.1; Bilirubin Total 0.5 mg/dL (0.2-1.0); Calcium 8.7 mg/dL (8.5-10.1); Carbon Dioxide 25.2 mmol/L (21.0-32.0); Chloride 100 mmol/L (98-107); Estimated GFR (African America >60 (>=60 mL/min/1.73m^2); Estimated GFR (Non-African Ame 53 (>=60 mL/min/1.73m^2); Globulin 4.5 g/dL; Glucose 367 mg/dL (74-106); Potassium 3.5 mmol/L (3.5-5.1); Sodium 137 mmol/L (136-145); Total Protein 7.2 g/dL (6.4-8.2)
[2024-07-22 10:27] LABS: Lactate/Lactic Acid 1.3 mmol/L (0.4-2.0)
[2024-07-22] MEDS: 0.9 % SODIUM CHLORIDE 1,000 ML 500 ML IV (10:27)
== END 2024-07-22 12:10 | disposition home or self-care (01) ==
PROVIDERS: Emergency Provider Emergency Medicine
DX: N39.0 Urinary tract infection, site not specified (principal); B96.89 Other specified bacterial agents as the cause of diseases classified elsewhere; Z96.0 Presence of urogenital implants; Z91.81 History of falling
CPT/HCPCS: 36415; 70450; 80053; 81001; 83605; 85025; 87086; 99285

== ENCOUNTER 2024-08-17 11:00 | Inpatient (IN) | payer MEDICARE, SELFPAY ==
[2024-08-17] VITALS (86 sets, daily range): BP systolic 70–149; BP diastolic 56–85; PULSE 61–100; TEMP 36.6; O2SAT 70–98; BMI 25.1
--- NOTE | 2024-08-17 11:09 | CT_ITS ---
[address] [address] Patient Name: GUILLERMINA GUADALUPE MRN: [id number] date: 1935 Sex: M Assigned Patient Location: ER Current Patient Location: ED.MAIN Accession/Order Number: [id number] Exam Date: 08/17/2024 11:31 Report Date: 08/17/2024 11:59 At the request of: SHAHID PERALTA Procedure: CT abdomen pelvis wo con EXAMINATION: CT abdomen pelvis wo con HISTORY: sepsis , hematuria, mental status change COMPARISON: 05/25/2024 TECHNIQUE: Axial, Coronal, and Sagittal images were created without IV contrast. Dose reduction techniques were achieved by using automated exposure control and/or adjustment of mA and/or kV according to patient size and/or use of iterative reconstruction technique. FINDINGS: LUNG BASES: 6 mm right pleural effusion. Bibasilar infiltrates, atelectasis is favored LIVER: No enlargement, atrophy, abnormal density, or significant focal lesion. BILIARY: No dilatation or calcification. PANCREAS: No lesion, fluid collection, ductal dilatation, or atrophy. SPLEEN: No enlargement or focal lesion. ADRENALS: No mass or enlargement. KIDNEYS: Multiple bilateral hypodensities possibly cysts. No obstructive uropathy. No inflammatory changes of the kidneys BOWEL/MESENTERY: Moderate amount of stool in the rectum which measures 6 cm in diameter. Colonic diverticulosis without evidence of acute diverticulitis. Nonobstructive bowel gas pattern. Normal appendix. AORTA/VASCULAR: No aortic aneurysm. Moderate calcific atherosclerosis RETROPERITONEUM: No mass or adenopathy. LYMPH NODES: No adenopathy. URINARY BLADDER: Nondistended urinary bladder with presence of a balloon catheter. Urinary bladder wall is thickened measuring up to 8 mm with mild stranding. Free air is noted along the urethra and peroneal the level of the pubic symphysis PELVIC ORGANS: No visible mass. Pelvic organs appropriate for patient age. ABDOMINAL WALL: No mass or hernia. BONES: No bony lesion or fracture. OTHER: Negative. CT/CT abdomen pelvis wo con IMPRESSION: Subcutaneous emphysema along the base of the penis, penile urethra and peroneal. Gas-forming organism and necrotizing fasciitis should be considered Inflammatory changes of the urinary bladder suggesting cystitis No CT evidence of pyelonephritis Electronically authenticated by: LEEANN Arevalo: 08/17/2024 11:59
--- NOTE | 2024-08-17 11:11 | ECG_ITS ---
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
[2024-08-17 11:38] LABS: Basophils Percent Auto 0.4 % (0.2-2.0); Eosinophils Absolute Auto 0.2 10^3/uL (0.0-0.7); Eosinophils Percent Auto 2.2 % (0.9-7.0); Hematocrit 33.5 % (42.0-54.0); Hemoglobin 10.7 g/dL (14.0-18.0); Immature Granulocytes Abs Auto 0.09 10^3/uL (0.00-0.03); Immature Granulocytes Pct Auto 1.3 % (0.0-0.5); Lymphocytes Absolute Auto 0.9 10^3/uL (1.2-3.8); Lymphocytes Percent Auto 12.7 % (20.5-60.0); Mean Corpuscular HGB Conc 31.9 g/dL (29.9-35.2); Mean Corpuscular Hemoglobin 27.1 pg (25.9-34.0); Mean Corpuscular Volume 84.8 fL (80.0-94.0); Mean Platelet Volume 10.2 fL (9.5-13.5); Monocytes Absolute Auto 0.4 10^3/uL (0.3-0.8); Monocytes Percent Auto 6.6 % (1.7-12.0); Neutrophils Absolute Auto 5.1 10^3/uL (1.4-6.5); Neutrophils Percent Auto 76.8 % (43.0-75.0); Platelet Count 164 10^3/uL (150-450); Red Blood Count 3.95 10^6/uL (4.70-6.10); Red Cell Distribution Width 14.9 % (11.0-15.0); White Blood Count 6.7 10^3/uL (4.0-11.0)
[2024-08-17 11:40] LABS: PCO2 VBG 47.5 mmHg (40.0-52.0); pH VBG 7.369 (7.330-7.430)
[2024-08-17 11:44] LABS: Clarity Urine SL CLOUDY (CLEAR); Color Urine DK. ORANGE (YELLOW); Specific Gravity Urine 1.015 (1.005-1.025)
[2024-08-17 11:48] LABS: Bilirubin Urine COLOR INTERFERENCE (NEGATIVE); Blood Urine COLOR INTERFERENCE (NEGATIVE); Glucose Urine UA COLOR INTERFERENCE mg/dL (NEGATIVE); Ketones Urine COLOR INTERFERENCE mg/dL (NEGATIVE); Leukocyte Esterase Urine COLOR INTERFERENCE (NEGATIVE); Nitrite Urine COLOR INTERFERENCE (NEGATIVE); Protein Urine COLOR INTERFERENCE mg/dL (NEG/TRACE); Urine Microscopic Indicated YES; Urobilinogen Urine COLOR INTERFERENCE EU/dL (0.2-1.0); pH Urine COLOR INTERFERENCE (5.0-9.0)
[2024-08-17 11:57] LABS: Bacteria Urine MODERATE #/HPF (NONE SEEN); Mucus Urine TRACE (NONE SEEN); Squamous Epithelial Cell Urine RARE #/LPF (NONE/RARE); WBC Urine 75-100 #/HPF (NONE SEEN)
[2024-08-17 11:58] LABS: Cast Seen? NONE SEEN #/LPF (NONE SEEN); Crystals Seen? None Seen #/HPF (None Seen); Urine Culture Indicated YES
[2024-08-17 12:05] LABS: Alanine Aminotransferase 17 U/L (16-63); Albumin Globulin Ratio 0.8; Alkaline Phosphatase 115 U/L (46-116); Anion Gap 12.9; Aspartate Amino Transferase 9 U/L (15-37); BUN Creatinine Ratio 10.6; Bilirubin Total 0.4 mg/dL (0.2-1.0); Calcium 8.6 mg/dL (8.5-10.1); Carbon Dioxide 29.7 mmol/L (21.0-32.0); Chloride 96 mmol/L (98-107); Estimated GFR (African America >60 (>=60 mL/min/1.73m^2); Estimated GFR (Non-African Ame 51 (>=60 mL/min/1.73m^2); Glucose 438 mg/dL (74-106); Magnesium 1.8 mg/dL (1.8-2.4); Potassium 3.6 mmol/L (3.5-5.1); Sodium 135 mmol/L (136-145); Troponin I High Sensitivity 6.7 pg/mL (4.0-76.1)
[2024-08-17 12:13] LABS: Lactate/Lactic Acid 2.4 mmol/L (0.4-2.0)
[2024-08-17] MEDS: 0.9 % SODIUM CHLORIDE 1,000 ML 999 ML IV (12:33)
--- NOTE | 2024-08-17 13:01 | ED.GENADUL1 ---
HPI HPI - General Adult General Chief complaint: Altered Mental Status Stated complaint: GENERAL WEAKNESS Time Seen by Provider: 08/17/24 11:06 Source: patient, family and medical record Mode of arrival: Wheelchair Limitations: no limitations History of Present Illness HPI narrative: Patient presents to the emergency department from home for evaluation of confusion. He lives alone and history is provided by his son and granddaughter. Family is in very close contact with him. He has been more confused and hallucinating off-and-on in the last 4 days and the concern was that he may have a UTI. He has a history of urinary retention and has had an indwelling Dodge catheter for the last 1 year at least. He was recently found to have a left ureteral stone for which he underwent ureteral stent placement. 2 weeks ago he underwent cystoscopy and was found to have a fungus ball in the bladder which was used a laser to crush. He also underwent ureteral calculus removal and reinsertion of his Dodge catheter. He was placed on 3 days of Cipro. Cultures revealed Enterococcus, Klebsiella and Rosi with light growth. Family states patient had been experiencing some leakage of urine around his Dodge catheter site before he had his cystoscopy. Symptoms resolved and then have recurred in the last couple days. Related Data Home Medications ?Medication ?Instructions ?Recorded ?Confirmed allopurinol 300 mg tablet 300 mg PO DAILY 12/27/22 08/17/24 levothyroxine 50 mcg tablet 50 mcg PO DAILY 12/27/22 08/17/24 diltiazem HCl 180 mg 180 mg PO DAILY 01/09/23 08/17/24 capsule,extended release 24 hr famotidine 20 mg tablet 20 mg PO DAILY 01/09/23 08/17/24 fluticasone propionate 50 2 spray intranasal DAILY PRN nasal 01/09/23 08/17/24 mcg/actuation nasal congestion spray,suspension (Flonase Allergy Relief) magnesium aspart,citrate,oxide 400 mg PO BEDTIME 01/09/23 08/17/24 metoprolol tartrate 25 mg tablet 25 mg PO BID 01/09/23 08/17/24 psyllium husk 0.4 gram capsule 0.4 g PO DAILY 01/09/23 08/17/24 (Metamucil) tamsulosin 0.4 mg capsule (Flomax) 0.4 mg PO DAILY 01/09/23 08/17/24 atorvastatin 20 mg tablet 20 mg PO DAILY 01/10/23 08/17/24 baclofen 10 mg tablet 10 mg PO BID muscle spasm 01/10/23 08/17/24 Lactobacillus rhamnosus GG 10 1 cap PO DAILY 07/18/23 08/17/24 billion cell capsule (Culturelle) glipizide 5 mg tablet 5 mg PO BID 07/18/23 08/17/24 acetaminophen 500 mg tablet 1,000 mg PO Q8H PRN pain 09/13/23 08/17/24 (Tylenol Extra Strength) loperamide 2 mg tablet 2 mg PO Q6H PRN loose stool 05/22/24 08/17/24 metoclopramide HCl 5 mg tablet 5 mg PO Q6H PRN nausea and vomiting 05/22/24 08/17/24 ondansetron HCl 8 mg tablet 8 mg PO Q8H PRN nausea and vomiting 05/22/24 08/17/24 donepezil 10 mg tablet 10 mg PO DAILY 05/23/24 08/17/24 sennosides 8.6 mg-docusate sodium 1 tab-cap PO DAILY 05/23/24 08/17/24 50 mg tablet (Stimulant Laxative Plus) aspirin 325 mg tablet 325 mg PO DAILY 08/17/24 08/17/24 losartan 100 mg tablet 100 mg PO DAILY 08/17/24 08/17/24 oxybutynin chloride 5 mg tablet 5 mg PO Q8H 08/17/24 08/17/24 phenazopyridine 100 mg tablet 100 mg PO .q12 08/17/24 08/17/24 (Pyridium) ropinirole 0.5 mg tablet 0.5 mg PO DAILY 08/17/24 08/17/24 Previous Rx's ?Medication ?Instructions ?Recorded pregabalin 100 mg capsule (Lyrica) 100 mg PO TID 5 days #15 caps 08/25/23 furosemide 20 mg tablet 40 mg (2 x 20 mg) PO DAILY #0 tabs 09/16/23 morphine 30 mg tablet,extended 15 mg (1/2 x 30 mg) PO Q12H #0 tabs 05/28/24 release Allergies Allergy/AdvReac Type Severity Reaction Status Date / Time tizanidine (From Zanaflex) Allergy Unknown Unknown Verified 08/17/24 11:09 acetaminophen (From Percocet) AdvReac Mild Vomiting Verified 08/17/24 11:09 cyclobenzaprine (From AdvReac Mild Hallucinati Verified 08/17/24 11:09 Flexeril) ng oxycodone (From Percocet) AdvReac Mild Vomiting Verified 08/17/24 11:09 tramadol AdvReac Mild Vomiting Verified 08/17/24 11:09 Opioid HPI Opioid Management Most Recent Opioid Data: Last Pain Scale 6 05/27/24 16:05 05/27/24 Last Pain Intensity 10 09/16/23 11:39 09/16/23 Last ORT Total Score 0 05/22/24 18:31 05/22/24 Last ORT Risk Category Low Risk 05/22/24 18:31 05/22/24 Review of Systems ROS Status of ROS unobtainable due to mental status PFSH [facility] Medical History GERD without esophagitis ?K21.9 - Gastro-esophageal reflux disease without esophagitis (ICD-10) Hypothyroidism (acquired) ?E03.9 - Hypothyroidism, unspecified (ICD-10) DNR (do not resuscitate) ?Z66 - Do not resuscitate (ICD-10) Chronic indwelling Dodge catheter ?Z97.8 - Presence of other specified devices (ICD-10) E. coli UTI ?N39.0 - Urinary tract infection, site not specified (ICD-10) ?B96.20 - Unspecified Escherichia coli [E. coli] as the cause of diseases classified elsewhere (ICD-10) Yeast infection ?B37.9 - Candidiasis, unspecified (ICD-10) Cellulitis of scrotum ?N49.2 - Inflammatory disorders of scrotum (ICD-10) Decubitus ulcer of sacral area ?L89.159 - Pressure ulcer of sacral region, unspecified stage (ICD-10) DDD (degenerative disc disease), lumbar ?M51.36 - Other intervertebral disc degeneration, lumbar region (ICD-10) Lumbar radiculopathy ?M54.16 - Radiculopathy, lumbar region (ICD-10) Intractable low back pain ?M54.59 - Other low back pain (ICD-10) Unable to ambulate ?R26.2 - Difficulty in walking, not elsewhere classified (ICD-10) Chronic kidney disease ?N18.9 - Chronic kidney disease, unspecified (ICD-10) Spondylosis ?M47.9 - Spondylosis, unspecified (ICD-10) Radiculopathy ?M54.10 - Radiculopathy, site unspecified (ICD-10) Chronic diastolic heart failure ?I50.32 - Chronic diastolic (congestive) heart failure (ICD-10) Type 2 diabetes mellitus ?E11.9 - Type 2 diabetes mellitus without complications (ICD-10) Afib ?I48.91 - Unspecified atrial fibrillation (ICD-10) Spinal stenosis ?M48.00 - Spinal stenosis, site unspecified (ICD-10) Peripheral edema ?R60.0 - Localized edema (ICD-10) Hypertension ?I10 - Essential (primary) hypertension (ICD-10) Lumbar spondylosis ?M47.816 - Spondylosis without myelopathy or radiculopathy, lumbar region (ICD-10) Chronic low back pain ?M54.50 - Low back pain, unspecified (ICD-10) ?G89.29 - Other chronic pain (ICD-10) Anxiety ?F41.9 - Anxiety disorder, unspecified (ICD-10) Shortness of breath ?R06.02 - Shortness of breath (ICD-10) 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 ?R33.9 - Retention of urine, unspecified (ICD-10) Ambulatory dysfunction ?R26.2 - Difficulty in walking, not elsewhere classified (ICD-10) HLD (hyperlipidemia) ?E78.5 - Hyperlipidemia, unspecified (ICD-10) Depression with anxiety ?F41.8 - Other specified anxiety disorders (ICD-10) Acute hypokalemia ?E87.6 - Hypokalemia (ICD-10) Intractable low back pain ?M54.59 - Other low back pain (ICD-10) CKD stage 3 due to type 2 diabetes mellitus ?E11.22 - Type 2 diabetes mellitus with diabetic chronic kidney disease (ICD-10) ?N18.30 - Chronic kidney disease, stage 3 unspecified (ICD-10) Lumbar stenosis with neurogenic claudication ?M48.062 - Spinal stenosis, lumbar region with neurogenic claudication (ICD-10) Osteoarthritis of right knee ?M17.11 - Unilateral primary osteoarthritis, right knee (ICD-10) Chronic pain syndrome ?G89.4 - Chronic pain syndrome (ICD-10) Chronic prescription opiate use ?Z79.891 - FPC (current) use of opiate analgesic (ICD-10) Osteoarthritis, 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 - Primary osteoarthritis, unspecified shoulder (ICD-10) Right shoulder pain ?M25.511 - Pain in right shoulder (ICD-10) Lumbar radiculopathy ?M54.16 - Radiculopathy, lumbar region (ICD-10) Abdominal pain ?R10.9 - Unspecified abdominal pain (ICD-10) Nausea & vomiting ?R11.2 - Nausea with vomiting, unspecified (ICD-10) Esophagitis ?K20.90 - Esophagitis, unspecified without bleeding (ICD-10) Muscle spasm ?M62.838 - Other muscle spasm (ICD-10) Lumbar stenosis ?M48.061 - Spinal stenosis, lumbar region without neurogenic claudication (ICD-10) Retraction of blood clot ?I74.9 - Embolism and thrombosis of unspecified artery (ICD-10) Inguinal hernia ?K40.90 - Unilateral inguinal hernia, without obstruction or gangrene, not specified as recurrent (ICD-10) Presence of Watchman left atrial appendage closure device ?Z95.818 - Presence of other cardiac implants and grafts (ICD-10) Low back pain ?M54.50 - Low back pain, unspecified (ICD-10) Rheumatoid arthritis ?M06.9 - Rheumatoid arthritis, unspecified (ICD-10) Osteoarthritis ?M19.90 - Unspecified osteoarthritis, unspecified site (ICD-10) Gout ?M10.9 - Gout, unspecified (ICD-10) DVT (deep venous thrombosis) ?I82.409 - Acute embolism and thrombosis of unspecified deep veins of unspecified lower extremity (ICD-10) Hearing deficit ?H91.90 - Unspecified hearing loss, unspecified ear (ICD-10) IBS (irritable bowel syndrome) ?K58.9 - Irritable bowel syndrome without diarrhea (ICD-10) Acid reflux ?K21.9 - Gastro-esophageal reflux disease without esophagitis (ICD-10) Hypothyroid ?E03.9 - Hypothyroidism, unspecified (ICD-10) Diabetes 1.5, managed as type 2 ?E13.9 - Other specified diabetes mellitus without complications (ICD-10) Kidney stone ?N20.0 - Calculus of kidney (ICD-10) Prostate cancer ?C61 - Malignant neoplasm of prostate (ICD-10) CPAP (continuous positive airway pressure) dependence ?Z99.89 - Dependence on other enabling machines and devices (ICD-10) Sleep apnea ?G47.30 - Sleep apnea, unspecified (ICD-10) Hypercholesterolemia ?E78.00 - Pure hypercholesterolemia, unspecified (ICD-10) Surgical History H/O transurethral resection of bladder tumor (TURBT) ?Z98.890 - Other specified postprocedural states (ICD-10) ?Z86.03 - Personal history of neoplasm of uncertain behavior (ICD-10) H/O arthroscopy of knee ?Z98.890 - Other specified postprocedural states (ICD-10) S/P tonsillectomy and adenoidectomy ?Z90.89 - Acquired absence of other organs (ICD-10) Previous back surgery ?Z98.890 - Other specified postprocedural states (ICD-10) H/O neck surgery ?Z98.890 - Other specified postprocedural states (ICD-10) Family History Other Family history of diabetes mellitus Social History Within the past year, how often did you have a drink containing alcohol: never Score interpretation: A score less than 4 is consistent with normal alcohol consumption. Smoking status: Never smoker Non-prescribed substance use: denies use Previous occupational history: retired Known occupational exposures/hazards: No Highest level of school completed/degree received: high school graduate Are you now , , , , never or living with a partner: In a typical week, how many times do you talk on the telephone with family, friends, or neighbors: 3 or more times per week How often do you get together with friends or relatives: 3 or more times per week How often do you attend hoahaoism or restorationist services: never Do you belong to any clubs or organizations such as hoahaoism groups unions, fraternal or athletic groups, or school groups: no Total score: 1 Score interpretation: A score of less than or equal to 1 indicates the most socially isolated. Little interest or pleasure in doing things: not at all Feeling down, depressed, or hopeless: not at all Feel stressed/tense/nervous/anxious/difficulty sleeping: not at all Do you think of yourself as: straight/heterosexual Gender Identity: male Exam Narrative Exam Narrative: Patient is poorly responsive upon arrival but arouses to verbal stimuli and tactile stimuli. He appears mildly ill. No temperature elevation was noted. He was normotensive. Skin was pale. Pupils were reactive to light and there was no a facial asymmetry. Neck was supple. Lung sounds are grossly clear during quiet inspiration. Heart had regular rate and rhythm. Abdomen was protuberant, soft and nontender. Examination of the genitalia revealed small amount of purulent drainage around the urethral meatus. There is no redness at the base of the penis and no crepitus. Lower extremities are warm and dry. Constitutional Vital Signs, click to edit/add: Last Vital Signs Temp 98 F 08/17/24 11:03 Pulse 73 08/17/24 18:00 Resp 14 08/17/24 18:00 BP 146/77 H 08/17/24 18:00 Pulse Ox 95 08/17/24 14:50 O2 Del Method Room Air 08/17/24 11:03 Course Vital Signs Vital signs: Vital Signs Temperature 98 F 08/17/24 11:03 Pulse Rate 82 08/17/24 11:03 Respiratory Rate 20 08/17/24 11:03 Blood Pressure 122/75 08/17/24 11:03 Pulse Oximetry 95 08/17/24 11:03 Oxygen Delivery Method Room Air 08/17/24 11:03 Temperature 98 F 08/17/24 11:03 Pulse Rate 73 08/17/24 18:00 Respiratory Rate 14 08/17/24 18:00 Blood Pressure 146/77 H 08/17/24 18:00 Pulse Oximetry 95 08/17/24 14:50 Oxygen Delivery Method Room Air 08/17/24 11:03 Medical Decision Making MDM Narrative Medical decision making narrative: I interpreted the twelve-lead EKG which showed sinus rhythm and right bundle branch block pattern with no acute ST elevation. There is possible old inferior wall infarct. Patient's white count was normal at 6.7 but he is mildly tachycardic initially. Chemistry is fairly unremarkable except for an elevated blood glucose of 438. He had a normal pH. Lactate was elevated at 2.4. Urinalysis was a catheterized specimen from his indwelling catheter and showed 5-10 red cells 75-100 white cells and moderate bacteria and will be cultured. Patient's lipase was 151 and his troponin was normal at 6.1. 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 However on physical examination I do not see any redness at the site or elicit any soft tissue crepitus. Patient is started on IV daptomycin in the ED and the plan is to transfer him to [facility] in [place] which was recommended by his urologist because he wanted the patient to go to a tertiary care center. 1440: Patient is accepted at [facility] in [place] by Regine Samuels APRN covering for Dr. Wilder Branch. Lab Data Labs: Lab Results 08/17/24 08/17/24 08/17/24 Range/Units 11:15 11:25 11:29 WBC 6.7 (4.0-11.0) 10^3/uL RBC 3.95 L (4.70-6.10) 10^6/uL Hgb 10.7 L (14.0-18.0) g/dL Hct 33.5 L (42.0-54.0) % MCV 84.8 (80.0-94.0) fL MCH 27.1 (25.9-34.0) pg MCHC 31.9 (29.9-35.2) g/dL RDW 14.9 (11.0-15.0) % Plt Count 164 (150-450) 10^3/uL MPV 10.2 (9.5-13.5) fL Neut % (Auto) 76.8 H (43.0-75.0) % Lymph % (Auto) 12.7 L (20.5-60.0) % [place] % (Auto) 6.6 (1.7-12.0) % Eos % (Auto) 2.2 (0.9-7.0) % Baso % (Auto) 0.4 (0.2-2.0) % Neut # (Auto) 5.1 (1.4-6.5) 10^3/uL Lymph # (Auto) 0.9 L (1.2-3.8) 10^3/uL [place] # (Auto) 0.4 (0.3-0.8) 10^3/uL Eos # (Auto) 0.2 (0.0-0.7) 10^3/uL Baso # (Auto) 0.0 (0.0-0.1) 10^3/uL Abs Immat Gran (auto) 0.09 H (0.00-0.03) 10^3/uL Imm/Tot Granulo (auto) 1.3 H (0.0-0.5) % VBG pH 7.369 (7.330-7.430) VBG pCO2 47.5 (40.0-52.0) mmHg Sodium 135 L (136-145) mmol/L Potassium 3.6 (3.5-5.1) mmol/L Chloride 96 L (98-107) mmol/L Carbon Dioxide 29.7 (21.0-32.0) mmol/L Anion Gap 12.9 BUN 14.0 (7.0-18.0) mg/dL Creatinine 1.32 H (0.70-1.30) mg/dL Est GFR ( Amer) >60 (>=60 mL/min/1.73m^2) Est GFR (Non-Af Amer) 51 L (>=60 mL/min/1.73m^2) BUN/Creatinine Ratio 10.6 Glucose 438 H (74-106) mg/dL Lactate 2.4 H* (0.4-2.0) mmol/L Calcium 8.6 (8.5-10.1) mg/dL Magnesium 1.8 (1.8-2.4) mg/dL Total Bilirubin 0.4 (0.2-1.0) mg/dL AST 9 L (15-37) U/L ALT 17 (16-63) U/L Alkaline Phosphatase 115 (46-116) U/L Troponin I High Sens 6.7 (4.0-76.1) pg/mL NT-Pro-B Natriuret Pep 668.0 (<=1800.0) pg/mL Total Protein 7.0 (6.4-8.2) g/dL Albumin 3.0 L (3.4-5.0) g/dL Globulin 4.0 g/dL Albumin/Globulin Ratio 0.8 Lipase 17.0 (16.0-77.0) U/L Urine Color Dk. orange (YELLOW) Urine Clarity Sl cloudy (CLEAR) Urine pH Color interference A (5.0-9.0) Ur Specific [place] 1.015 (1.005-1.025) Urine Protein Color interference A (NEG/TRACE) mg/dL Urine Glucose (UA) Color interference A (NEGATIVE) mg/dL Urine Ketones Color interference A (NEGATIVE) mg/dL Urine Occult Blood Color interference A (NEGATIVE) Urine Nitrite Color interference A (NEGATIVE) Urine Bilirubin Color interference A (NEGATIVE) Urine Urobilinogen Color interference A (0.2-1.0) EU/dL Ur Leukocyte Esterase Color interference A (NEGATIVE) Urine RBC 5-10 A (0-2) #/HPF Urine WBC 75-100 A (NONE SEEN) #/HPF Ur Squamous Epith Cells Rare (NONE/RARE) #/LPF Urine Crystals None seen (None Seen) #/HPF Urine Bacteria Moderate A (NONE SEEN) #/HPF Urine Casts None seen (NONE SEEN) #/LPF Urine Mucus Trace A (NONE SEEN) Urine Yeast Seen A (NONE SEEN) Ur Culture Indicated? Yes POC Glucose (74-106) mg/dL 08/17/24 08/17/24 Range/Units 14:15 15:49 WBC (4.0-11.0) 10^3/uL RBC (4.70-6.10) 10^6/uL Hgb (14.0-18.0) g/dL Hct (42.0-54.0) % MCV (80.0-94.0) fL MCH (25.9-34.0) pg MCHC (29.9-35.2) g/dL RDW (11.0-15.0) % Plt Count (150-450) 10^3/uL MPV (9.5-13.5) fL Neut % (Auto) (43.0-75.0) % Lymph % (Auto) (20.5-60.0) % [place] % (Auto) (1.7-12.0) % Eos % (Auto) (0.9-7.0) % Baso % (Auto) (0.2-2.0) % Neut # (Auto) (1.4-6.5) 10^3/uL Lymph # (Auto) (1.2-3.8) 10^3/uL [place] # (Auto) (0.3-0.8) 10^3/uL Eos # (Auto) (0.0-0.7) 10^3/uL Baso # (Auto) (0.0-0.1) 10^3/uL Abs Immat Gran (auto) (0.00-0.03) 10^3/uL Imm/Tot Granulo (auto) (0.0-0.5) % VBG pH (7.330-7.430) VBG pCO2 (40.0-52.0) mmHg Sodium (136-145) mmol/L Potassium (3.5-5.1) mmol/L Chloride (98-107) mmol/L Carbon Dioxide (21.0-32.0) mmol/L Anion Gap BUN (7.0-18.0) mg/dL Creatinine (0.70-1.30) mg/dL Est GFR ( Amer) (>=60 mL/min/1.73m^2) Est GFR (Non-Af Amer) (>=60 mL/min/1.73m^2) BUN/Creatinine Ratio Glucose (74-106) mg/dL Lactate 1.5 (0.4-2.0) mmol/L Calcium (8.5-10.1) mg/dL Magnesium (1.8-2.4) mg/dL Total Bilirubin (0.2-1.0) mg/dL AST (15-37) U/L ALT (16-63) U/L Alkaline Phosphatase (46-116) U/L Troponin I High Sens (4.0-76.1) pg/mL NT-Pro-B Natriuret Pep (<=1800.0) pg/mL Total Protein (6.4-8.2) g/dL Albumin (3.4-5.0) g/dL Globulin g/dL Albumin/Globulin Ratio Lipase (16.0-77.0) U/L Urine Color (YELLOW) Urine Clarity (CLEAR) Urine pH (5.0-9.0) Ur Specific [place] (1.005-1.025) Urine Protein (NEG/TRACE) mg/dL Urine Glucose (UA) (NEGATIVE) mg/dL Urine Ketones (NEGATIVE) mg/dL Urine Occult Blood (NEGATIVE) Urine Nitrite (NEGATIVE) Urine Bilirubin (NEGATIVE) Urine Urobilinogen (0.2-1.0) EU/dL Ur Leukocyte Esterase (NEGATIVE) Urine RBC (0-2) #/HPF Urine WBC (NONE SEEN) #/HPF Ur Squamous Epith Cells (NONE/RARE) #/LPF Urine Crystals (None Seen) #/HPF Urine Bacteria (NONE SEEN) #/HPF Urine Casts (NONE SEEN) #/LPF Urine Mucus (NONE SEEN) Urine Yeast (NONE SEEN) Ur Culture Indicated? POC Glucose 302 H (74-106) mg/dL Discharge Plan Discharge Chief Complaint: Altered Mental Status Clinical Impression: Urinary tract infection Qualifiers: Urinary tract infection type: catheter-associated UTI Indwelling urinary catheter type: indwelling urethral catheter Encounter type: initial encounter Qualified Code(s): T83.511A - Infection and inflammatory reaction due to indwelling urethral catheter, initial encounter Patient Disposition: [facility] Time of Disposition Decision: 17:12 Discharge location: [facility] Condition: Fair Mode of Transportation: EMS
[2024-08-17] MEDS: 0.9 % SODIUM CHLORIDE 1,000 ML 1000 ML IV (13:56)
[2024-08-17 14:38] LABS: Lactate/Lactic Acid 1.5 mmol/L (0.4-2.0)
[2024-08-17 15:51] LABS: Glucometer 302 mg/dL (74-106)
[2024-08-18] VITALS (44 sets, daily range): BP systolic 121–146; BP diastolic 64–84; PULSE 78–109; TEMP 36.7–37.2; O2SAT 92–95; BMI 26.6
[2024-08-18 10:23] LABS: Basophils Percent Auto 0.2 % (0.2-2.0); Eosinophils Absolute Auto 0.1 10^3/uL (0.0-0.7); Eosinophils Percent Auto 1.2 % (0.9-7.0); Hematocrit 31.6 % (42.0-54.0); Hemoglobin 10.3 g/dL (14.0-18.0); Immature Granulocytes Abs Auto 0.05 10^3/uL (0.00-0.03); Immature Granulocytes Pct Auto 0.8 % (0.0-0.5); Lymphocytes Percent Auto 14.7 % (20.5-60.0); Mean Corpuscular HGB Conc 32.6 g/dL (29.9-35.2); Mean Corpuscular Hemoglobin 27.1 pg (25.9-34.0); Mean Corpuscular Volume 83.2 fL (80.0-94.0); Mean Platelet Volume 9.2 fL (9.5-13.5); Monocytes Absolute Auto 0.4 10^3/uL (0.3-0.8); Monocytes Percent Auto 6.7 % (1.7-12.0); Neutrophils Absolute Auto 4.9 10^3/uL (1.4-6.5); Neutrophils Percent Auto 76.4 % (43.0-75.0); Platelet Count 157 10^3/uL (150-450); Red Cell Distribution Width 14.9 % (11.0-15.0); White Blood Count 6.5 10^3/uL (4.0-11.0)
[2024-08-18 10:38] LABS: C Reactive Protein 8.26 mg/dL (<=0.50)
[2024-08-18 10:41] LABS: Alanine Aminotransferase 12 U/L (16-63); Albumin Globulin Ratio 0.6; Albumin Level 2.4 g/dL (3.4-5.0); Alkaline Phosphatase 101 U/L (46-116); Anion Gap 11.6; Aspartate Amino Transferase 10 U/L (15-37); BUN Creatinine Ratio 12.6; Bilirubin Total 0.5 mg/dL (0.2-1.0); Calcium 8.4 mg/dL (8.5-10.1); Chloride 101 mmol/L (98-107); Estimated GFR (African America >60 (>=60 mL/min/1.73m^2); Estimated GFR (Non-African Ame >60 (>=60 mL/min/1.73m^2); Globulin 3.8 g/dL; Glucose 328 mg/dL (74-106); Magnesium 1.6 mg/dL (1.8-2.4); Potassium 3.6 mmol/L (3.5-5.1); Sodium 136 mmol/L (136-145); Total Protein 6.2 g/dL (6.4-8.2)
[2024-08-18 10:42] LABS: INR 1.04
--- OUTSIDE RECORDS SUMMARY | 2024-08-18 11:23 | XMS_ITS | CCD ---
Author Organization [facility] Care Team Providers Care Seafood Manager Name Role Phone PHYSICIAN, DEFAULT Unavailable Unavailable PHYSICIAN, DEFAULT Unavailable Unavailable KIERA LOMBARDO Primary Care Physician [phone] Franky Veronica Primary Care Provider SHAIKH ELLIOTT Primary Care Physician AURELIO DURAES, TRISTIN Referring Unava ilable GLENYS, FRANKY A Primary Care Unavailable AURELIO DURAES, [...] Unavailable URSULA ., DR JASSO Admitting Unavailable URUSLA ., DR JASSO Attending Unavailable URSULA ., DR JASSO Consulting Unavailable MARITZA, DR BRISA Oh Consulting Unavailable SHAIKH Milena ELLIOTT Primary Care Unavailable CATRACHITO ., DR PAULINE Ring Admitting Unavailable CATRACHITO ., DR PAULINE Ring Attending Unavailable SHAIKH Milena ELLIOTT Primary Care Unavailable CATRACHITO ., DR PAULINE Ring Consulting Unavailable WINSTON [...] Care Unavailable SHASHI, DR WALLS Consulting Unavailable MOUKARBEL, DR WALLS Admitting Unavailable [...] DE [facility] Primary Care Unavailable WINTSON ., DR PAULINE Ring Attending Unavailable WINSTON [...] Unavailable MOREJON ., CALVIN Consulting Unavailable [facility] Primary Care Unavailable WINSTON ., DR PAULINE Ring Attending Unavailable WINSTON ., DR PAULINE Ring Admitting Unavailable [facility] Primary Care Unavailable WEST, DR LEEANN Valles Consulting Unavailable MOUKARBEL, DR WALLS Admitting Unavailable MOUKARBEL, DR WALLS Attending Unavailable MOUKARBEL, DR WALLS Consulting Unavailable [facility] Primary Care Unavailable AKKINA, REMY Admitting Unavailable AKKINA, REMY Attending Unavailable WINSTON ., DR PAULINE Ring Consulting Unavailable AKKINA, REMY Consulting Unavailable REQUEST, DR NONE LISTED Primary Care Unavaila ble NILL ., DR HYMAN Admitting Unavailable NILL ., DR HYMAN Attending Unavailable NILL ., DR HYMAN Consulting Unavailable [facility] Consulting Unavailable NEFCYBRITTANIE Consulting Unavailable [facility] Primary Care Unavailable VERGARA ., DR JASSO Admitting Unavailable VERGARA ., DR JASSO Attending Unavailable VERGARA ., DR JASSO Consulting Unavailable [facility] Primary Care Unavailable WINSTON ., DR PAULINE Ring Consulting Unavailable WINSTON ., DR PAULINE Ring Admitting Unavailable WINSTON ., DR PAULINE Ring Attending Unavailable LAKSHMIPATHY ., ROGELIO Attending Sweta vailable LAKSHMIPATHY ., ROGELIO Admitting Sweta vailable [facility] Primary Care Unavailable [facility] Primary Care Unavailable NILL ., DR HYMAN Attending Unavailable NILL ., DR HYMAN Consulting Unavailable NILL ., DR HYMAN Admitting Unavailable AGUBOSIM, ELIZ Consulting Unavailable DORKOSKIE KANDICE Consulting Unavailable [facility], [facility] Primary Care Unavailable NILL ., DR HYMAN Attending Unavailable NILL ., DR HYMAN Admitting Unavailable [facility], [facility] Primary Care Unavailable VERGARA ., DR JASSO Admitting Unavailable VERGARA ., DR JASSO Attending Unavailable VERGARA ., DR JASSO Consulting Unavailable WINSTON ., DR PAULINE Ring Attending Unavailable WINSTON ., DR PAULINE Ring Consulting Unavailable [facility], [facility] Primary Care Unavailable WINSTON ., DR PAULINE Ring Admitting Unavailable MOREJON ., CALVIN Consulting Unavailable SHAIKH Milena ELLIOTT Primary Care Unavailable CASTELLON ., DR COLTON Amador Consulting Unavailable CASTELLON ., DR COLTON Amador Procedure Practitioner Unasilvia CASTELLON ., DR COLTON Amador Admitting Unavailable CASTELLON ., DR COLTON Amador Attending Unavailable MOUKARBEL, DR WALLS Consulting Unavailable NILL ., DR HYMAN Consulting Unavailable OLIVIA, KATE Consulting Unavailable CARMINA LOVE Consulting Unavailable MICHAEL SPIVEY Consulting Unavailable Giedraitis , Andrius Vyttonya Attending Unavailable Giedraitis , Andrius Vytautelizabeth Attending Unavailable Giedraitis , Andrius Vytautelizabeth Attending Unavailable Giedraitis , Andrius Vytautelizabeth Attending Unavailable Giedraitis , Andrius Vytautelizabeth Attending Unavailable Giedraitis , Andrius Gilmore Attending Unavailable FASHAIKH BERMUDEZ Attending Unavailable FAAIDAN, Attending Unavailable NITESH GANT Attending Unavailable SHAIK ELLIOTTH Referring Unavailable CARMINA CROOK Attending Unavailable FASHAIK BERMUDEZH Referring Unavailable SHAIKH ELLIOTT Attending Unavailable CARMINA CROOK Attending Unavailable SHAIKH ELLIOTT Referring Unavailable Shaikh Elliott MD Primary Care Provider ANDREA COLORADO Attending Unavailable NERISSA ORDONEZ Attending Unavailable NERISSA ORDONEZ Referring Unavailable NERISSA ORDONEZ Attending Unavailable NERISSA ORDONEZ Attending Unavailable COLTON GUADALUPE Primary Care Physician [phone] Olman Aponte MD Attending Provider [phone] NO FAMILY, PHYSICIAN Primary Care Provider Unava ilArmani Johnson Attending Unavailable Olman APONTE Attending Unavailable CHACORTA MENDOZA Attending Unavailable Mekhi VERGARA Admitting Unavailable Mekhi VERGARA Attending Unavailable Mekhi VERGARA R Referring Unavailable Mekhi VERGARA R Admitting Unavailable Mekhi VERGARA R Attending Unavailable Olman APONTE Referring Unavailable Olman APONTE Attending Unavailable Olman APONTE Attending Unavailable Olman APONTE Referring Unavailable Olman Aponte Attending Unavailable Olman Aponte Admitting Unavailable NO FAMILY, PHYSICIAN Primary Care Unavailable Allergies Allergy Classification Reported Allergen(s) Allergy Type Date of Onset Reaction(s) Facility (12 sources) Acetaminophen / HYDROcodone; Translations: [acetaminophen-hydr ocodone] Drug Allergy Nausea and vomiting [facility] (18 sources) Acetaminophen / oxyCODONE; Translations: [acetaminophen-oxyc odone] Drug Allergy 06-03-20 16 Vomiting [facility] (20 sources) tiZANidine; Translations: [tizanidine] Drug Allergy 05-11-20 19 Mental Status Change, Vomiting, GI intolerance, Hallucinations [facility] (18 sources) traMADol; Translations: [tramadol] Drug Allergy 02-28-20 22 GI intolerance [facility] (6 sources) Acetaminophen / oxyCODONE; Translations: [OXYCODONE-ACETAMIN OPHEN] Drug Allergy 06-03-20 16 GI intolerance, Unknown [facility] (2 sources) Acetaminophen / HYDROcodone Drug Allergy 06-03-20 16 [facility] (2 sources) Acetaminophen / oxyCODONE Drug Allergy 06-03-20 16 [facility] (2 sources) cyclobenzaprine Drug Allergy 07-18-19 17 [facility] (1 source) tiZANidine Drug Allergy [facility] (2 sources) traMADol Drug Allergy 06-12-20 16 [facility] (4 sources) Acetaminophen / HYDROcodone Drug Allergy 06-18-20 23 GI intolerance [facility] (2 sources) HYDROcodone; Translations: [hydrocodone] Drug Allergy 08-06-19 25 Nausea [facility] (1 source) tiZANidine Drug Allergy 08-06-19 25 [facility] (1 source) traMADol Drug Allergy 08-06-19 25 [facility] Medications Current Medications Medication Drug Class(es) Dates Sig (Normalized) Sig (Original) [facility] oral capsule (4 sources) Start: 06-01-2019 take 1 capsule by mouth twice daily [facility] oral capsule cap(s), Oral, BID, Refill(s) 0, Prophylaxis Start Date: 06/01/19 Status: Ordered [id number] 200 actuat albuterol 0.09 mg/actuat metered dose [...] tablet (20 sources) Xanthine Oxidase Inhibitor Start: 5 take 1 tablet by mouth three times daily Allopurinol 300 mg tablet Active 300 MG PO Three times daily August 06, 2024 12:00am Start: 06-01-2019 take 1 tablet by ravi th once daily allopurinol (Zyloprim) 300 MG tablet Indications: Gout, unspecified cause, unspecified chronicity, unspecified site TAKE 1 TABLET BY MOUTH DAILY 90 tablet 3 10/27/2023 Active Comment on above: Take 300 mg by mouth once daily. ALPRAZolam 0.5 mg oral tablet (6 sources) Benzodiazepine Start: 3 alprazolam 0.5 mg Tab Refills(s) 0 Start Date: 06/20/23 Status: Ordered amLODIPine 5 mg oral tablet (8 sources) Dihydropyridine Calcium Channel Rain Start: 2 End: 2 take 5 mg by mouth once daily amlodipine 5 mg, Oral, Daily, Refills(s) 0, High blood pressure Start Date: 07/10/21 Status: Ordered Comment on above: Take 5 mg by mouth o nce daily. aspirin 81 mg oral capsule (20 sources) Platelet Aggregation Inhibitor, Nonsteroidal Anti-inflammatory Drug Start: 3 take 1 mg by mouth every four [...] tablet (20 sources) HMG-CoA Reductase Inhibitor Start: 5 take 1 tablet by mouth once daily Atorvastatin 20 mg tablet Active 20 MG PO Daily August 06, 2024 12:00am Start: 10-15-2021 take 1 tablet by ravi th at bedtime atorvastatin (Lipitor) 20 MG tablet Indications: Hyperlipidemia, unspecified hyperlipidemia type (CMS/HCC) TAKE 1 TABLET BY MOUTH AT BEDTIME 90 tablet 3 11/17/2023 Active Comment on above: Take 20 mg by mouth once daily. baclofen 10 mg oral tablet (20 sources) gamma-Aminobutyric Acid-ergic Agonist Start: 08-06-2024 take 1 tablet by mouth twice daily Baclofen 10 mg tablet Active 10 MG PO Twice daily August 06, 2024 12:00am Start: 10-15-2021 take 1 tablet by ravi th at bedtime baclofen 10 mg Tab 10 mg = 1 tab(s), Oral, Bedtime, Refills(s) 0 Start Date: 10/15/21 Status: Ordered take 1 tablet by ravi th once daily baclofen (Lioresal) 10 MG tablet Take 10 mg by mouth 1 (one) time each day Active Comment on above: Take 10 mg by mouth three times daily. Centrum Silver oral tablet (11 sources) Start: 9 take 1 tablet by mouth once daily Centrum Silver oral tablet 1 tab(s), Oral, Daily, Refill(s) 0, Prophylaxis Start Date: 06/01/19 Status: Ordered cetirizine hydrochloride 10 mg oral tablet (12 sources) Histamine-1 Receptor Antagonist Start: 5 take 1 tablet by mouth once daily as needed Cetirizine (24hour Allergy) 10 mg tablet Active 10 MG PO Daily as needed for allergy symptoms August 06, 2024 12:00am Start: 04-22-2022 take 1 capsule by mo uth once daily as needed cetirizine 10 mg oral capsule 10 mg = 1 cap(s), Oral, Daily, PRN for allergy symptoms, Refills(s) 0 Start Date: 04/22/22 Status: Ordered take 1 tablet by ravi th in the morning cetirizine (ZyrTEC) 10 MG tablet Take 10 mg by mouth in the morning. Active cholecalciferol 0.25 mg oral capsule (4 sources) Vitamin D take 1 capsule by mouth in the morning cholecalciferol (Vitamin D-3) 250 MCG (71839 UT) capsule Take 1,000 Units by mouth in the morning. Active clopidogrel 75 mg oral tablet (5 sources) P2Y12 Platelet Inhibitor Start: clopidogrel 75 mg Tab Refills(s) 0 Start Date: 12/23/22 Status: Ordered dapagliflozin 5 mg oral tablet (13 sources) Sodium-Glucose Cotransporter 2 Inhibitor Start: take 1 tablet by mouth [...] oral tablet (2 sources) Benzodiazepine Start: 07-28-19 End: 08-27-19 take 1 [...] week(s), # 28 tab(s), Refills(s) 0, [id number] 177, cm, 06/20/23 10:48:00 EST, Height/Length Dosing, [...] 0.05 mg/inh nasal spray (4 sources) Start: 06-01-2019 Flonase 0.05 mg/inh nasal spray 2 spray(s), Nasal, Daily, Refill(s) 0, Congestion Start Date: 06/01/19 Status: Ordered folic acid 2.5 mg / vitamin b12 2 mg / vitamin b6 25 mg oral tablet (7 sources) Vitamin B12 Start: 06-01-2019 take 1 tablet by mouth once daily Folbic oral tablet 1 tab(s), Oral, Daily, Refill(s) 0, Prophylaxis Start Date: 06/01/19 Status: Ordered Comment on above: Take 1 tablet by ravi th once daily. furosemide 40 mg oral tablet (20 sources) Loop Diuretic Start: 08-06-2024 take 1 tablet by mouth once daily Furosemide (Lasix) 40 mg tablet Active 40 MG PO Daily August 06, 2024 12:00am Start: 04-22-2022 End: 06-07-2024 take 1 tablet by mouth once daily Lasix 40 mg Tab 40 mg = 1 tab(s), Oral, Daily, Refills(s) 0 Start Date: 04/22/22 Status: Ordered Comment on above: Take 40 mg by mouth once daily. gabapentin 100 mg oral capsule (2 sources) Anti-epileptic Agent Start: 08-06-2024 take 1 capsule by mouth three times daily Gabapentin 100 mg capsule Active 100 MG PO Three times daily August 06, 2024 12:00am Start: 06-29-2024 gabapentin 100 mg Cap 42 cap(s), 0 Refill(s), Refills(s) 0 Start Date: 06/29/24 Status: Ordered gemfibrozil 600 mg oral tablet (3 sources) Peroxisome Proliferator Receptor alpha Agonist Start: 10-15-2021 take 1 tablet by mouth twice daily gemfibrozil 600 mg Tab 600 mg = 1 tab(s), Oral, BID, Refills(s) 0 Start Date: 10/15/21 Status: Ordered glipiZIDE 5 mg oral tablet (4 sources) Sulfonylurea Start: 06-20-2023 glipiZIDE 5 mg Tab Refills(s) 0 Start Date: 06/20/23 Status: Ordered hydroCHLOROthiazide 25 mg / losartan potassium 100 mg oral tablet (4 sources) Thiazide Diuretic, Angiotensin 2 Receptor Rain Start: 06-01-2019 take 1 tablet by mouth once daily hydrochlorothiazid e-losartan 25 mg-100 mg Tab 1 tab(s), Oral, Daily, Refill(s) 0, High blood pressure Start Date: 06/01/19 Status: Ordered hydrocortisone acetate 25 mg rectal suppository (3 sources) Corticosteroid Start: 04-22-2022 hydrocortisone 25 mg Supp 25 mg = [...] rhamn osus GG (11 sources) Start: [facility] Start Date: 04/22/22 Status: Ordered Start: 06-01-2019 take 1 tablet by ravi th once daily [facility] 1 tab, Oral, Daily, Refill(s) [...] morning. losartan potassium 100 mg oral tablet (18 sources) Angiotensin 2 Receptor Rain Start: 08-06-2024 take 1 tablet by mouth once daily Losartan 100 mg tablet Active 100 MG PO Daily August 06, 2024 12:00am Start: 04-22-2022 take 1 tablet by ravi th once daily losartan (Cozaar) 100 MG tablet Indications: Primary hypertension (CMS/HCC) TAKE 1 TABLET BY MOUTH DAILY 90 tablet 3 11/17/2023 Active Comment on above: Take 100 mg by mouth once daily. magnesium oxide 400 mg oral tablet (18 sources) Start: 08-06-2024 take 1 tablet by mouth once daily Magnesium Oxide 400 mg magnesium tablet Active 400 MG PO Daily August 06, 2024 12:00am Start: 04-22-2022 take 1 tablet by ravi th once daily magnesium oxide 400 mg Tab 400 mg = 1 tab(s), Oral, Daily, Refills(s) 0 Start Date: 04/22/22 Status: Ordered Start: 06-01-2019 take 1 tablet by ravi th once daily magnesium oxide 250 mg oral tablet 250 mg = 1 tab(s), Oral, Daily, Refills(s) 0, Prophylaxis Start Date: 06/01/19 Status: Ordered Comment on above: Take 400 mg by mouth once daily. metoclopramide 10 mg oral tablet (1 source) Dopamine-2 Receptor Antagonist Start: 08-06-19 take 1 tablet by mouth once daily Metoclopramide Hcl (Reglan) 10 mg tablet Active 10 MG PO Daily August 06, 2024 12:00am metoprolol tartrate 25 mg oral tablet (20 sources) beta-Adrenergic Rain Start: 08-06-19 take 1 tablet by mouth twice daily Metoprolol Tartrate 25 mg tablet Active 25 MG PO Twice daily August 06, 2024 12:00am Start: 06-01-2019 take 1 tablet by ravi th twice daily metoprolol tartrate (Lopressor) 25 MG tablet Indications: Paroxysmal atrial fibrillation (CMS/HCC) , Chronic heart failure with preserved ejection fraction (CMS/HCC) TAKE 1 TABLET BY MOUTH TWICE DAILY 180 tablet 3 10/27/2023 Active metoprolol tartr ate, short acting, (LOPRESSOR) 50 mg tablet Take 25 mg by mouth twice daily. 0 Active Comment on above: Take 25 mg by mouth twice daily. morphine sulfate 15 mg extended release oral tablet (1 source) Opioid Agonist Start: 08-06-2024 take 1 tablet by mouth once daily at bedtime Morphine 15 mg tablet extended release Active 15 MG PO Daily at bedtime August 06, 2024 12:00am Multiple Vitamin (MULTIVITAMIN ADULT PO) (4 sources) Multiple Vitamin (MULTIVITAMIN ADULT PO) Take by mouth Active Multiple Vitamin (MULTIVITAMIN ADULT PO) Take by mouth 0 Active Zkzxlbqhomcz-Xkumcpvv-Leeruo tablet (1 source) Start: 08-06-2024 take 1 tablet by mouth once daily Lmptobwxmisw-Jqomdrwd-Jtdfqe tablet Active 1 TAB PO Daily Antionette 31st, 2025 12:00am Nitro 0.4 mg Tab (10 sources) Start: 07-10-2021 Nitro 0.4 mg Tab = 1 tab(s), SubLingual, q5min, PRN Chest pain, # 25 tab(s), Refills(s) 3 Start Date: 07/10/21 Status: Ordered nitroglycerin 0.4 mg/actuat mucosal spray (11 sources) Nitrate Vasodilat or Start: 07-10-2021 Nitro 0.4 mg Tab = [...] needed. oxybutynin chloride 5 mg oral tablet (2 sources) Cholinergic Muscarinic Antagonist Start: 08-06-2024 take 1 tablet by mouth once daily Oxybutynin Chloride 5 mg tablet Active 5 MG PO Daily August 06, 2024 12:00am Start: 06-29-2024 take 1 tablet by ravi th twice daily as needed oxybutynin 5 mg Tab 5 mg = 1 tab(s), Oral, BID, PRN for urinary discomfort, # 60 tab(s), Refills(s) 11, Pharmacy: [id number], 177, cm, 06/29/24 10:56:00 EST, Height/Length Dosing, 81.6, kg, 06/29/24 10:56:00 EST, Weight Dosing Start Date: 06/29/24 Status: Ordered oxyCODONE hydrochloride 10 mg oral tablet (3 sources) Opioid Agonist Start: 08-06-2024 take 5 mg by mouth once daily Oxycodone 10 mg tablet Active 5 MG PO Daily August 06, 2024 12:00am Start: 08-04-2023 End: 09-20-2023 take 2 tablets by mouth every six hours for pain oxyCODONE (Roxicodone) 5 MG immediate release tablet Indications: Chronic bilateral low back pain with bilateral sciatica Take 2 tablets (10 mg) by mouth every 6 (six) hours if needed for severe pain 240 tablet 0 08/21/2023 09/20/2023 Active pantoprazole 40 mg extended release oral tablet (6 sources) Proton Pump Inhibitor Start: 07-10-2021 take 1 tablet by mouth once daily pantoprazole 40 mg Oral EC Tab 40 mg = 1 tab(s), Oral, Daily, # 30 tab(s), Refills(s) 0, Pharmacy: [facility], 177.8, cm, 07/10/21 15:02:00 EST, Height/Length Dosing, 88.6, kg, 07/10/21 15:02:00 EST, Weight Dosing Start Date: 07/10/21 Status: Ordered Start: 07-10-2021 [facility] 1 [facility] daily pantoprazole 40 mg Oral EC Tab 40 mg = 1 tab(s), Oral, Daily, # 30 tab(s), Refills(s) 0, Pharmacy: [facility], 177.8, cm, 07/10/21 15:02:00 EST, Height/Length Dosing, 88.6, kg, 07/10/21 15:02:00 EST, Weight Dosing Start Date: 07/10/21 Status: Ordered pregabalin 75 mg oral capsule (16 sources) Start: 04-22-2022 take 1 capsule by mouth twice daily pregabalin 75 mg Cap 75 mg = 1 cap(s), Oral, BID, Refills(s) 0 Start Date: 04/22/22 Status: Ordered take 1 capsule by mo [facility] three times daily pregabalin (LYRICA) 50 mg [...] Ordered tamsulosin hydrochloride 0.4 mg oral capsule (14 sources) alpha-Adrenergic Rain Start: 08-06-2024 take 1 capsule by mouth once daily Tamsulosin 0.4 mg capsule Active 0.4 MG PO Daily August 06, 2024 12:00am Start: 02-18-2022 take 1 capsule by mo uth once daily Flomax 0.4 mg Cap 0.4 mg = 1 cap(s), Oral, Daily, Refills(s) 0 Start Date: 04/22/22 Status: Ordered take 1 capsule by mo [facility] every twenty-four hours in the morning tamsulosin [...] every six hours as needed for pain [place] 325 mg-5 mg oral tablet 1 tab(s), [...] completed., # 2 tab(s), Refills(s) 0, Pharmacy: [facility] #[id number], 177, cm, 06/20/23 10:48:00 EST, Height/Length Dosing, 81.9, kg, 06/20/23 10:48:00 EST, Weight Dosing Start Date: 06/20/23 Status: Ordered Start: 07-26-2022 take 1 tablet by ravi th once daily Cipro 250 mg Tab 250 mg = 1 tab(s), Oral, Daily, Take 1 tablet the day before the procedure and 1 tablet after the procedure, # 2 tab(s), Refills(s) 0, Pharmacy: [facility] #[id number], 177.8, cm, 04/22/22 15:44:00 EDT, Height/Length Dosing, 85.4, kg, 04/22/22 15:44:00 EDT,... 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 helper (current) use of antithrombotics/antip latelets] Onset: 06-29-2024 [...] cervical disc degeneration, unspecified cervical region] Onset: 06-02-2022 Chronic Thyroid disorders (19 sources) Hypothyroidism; Translations: [...] 07-03-2023 07-03-2023 Other aftercare (1 source) 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; Translations: [OTH WELD TECHNICIAN CURRENT DRUG THERAPY] Onset: 02-12-2022 Episodic Other aftercare (1 source) buttermaker helper (current) use of aspirin; Translations: [WELD TECHNICIAN CURRENT USE OF ASPIRIN] Onset: 02-12-2022 Episodic Other aftercare (1 source) intermediate (current) use of anticoagulants; Translations: [ALF CURRNT USE ANTICOAGULANTS] Onset: 11-27-2021 Episodic Other aftercare (2 sources) intermediate (current) use of antibiotics; Translations: [intermediate (current) use of antibiotics] Onset: 10-18-2022 Episodic [...] Test Name Value Interpretation Reference Range Facility Urology Office/Clinic Noteon 08-17-2024 Urology Office/Clinic Note Urology Office/Clinic Note Chief Complaint possible uti HPI Staff 88 yr old here with family to discuss possible UTI. Pt has Dodge catheter. On Friday pt began having hallucinations and odor in urine. Pt has continued issues with discolored discharge both around penis and in Dodge bag, as well as urine leaking out of insertion site. He has also been having bladder spasms this past week, since surgery. Has been also having increasing weakness. S/p cysto, left ureteral stent removal, ureteroscopy/nephroscopy, ureteroscopic basket extraction left ureteral calculus on 08/06/24. Also had laser ablation bladder fungus ball . Previous Dx: ureteral stone with hydronephrosis, bladder stone, rising PSA 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, urinary retention, prostatitis, BPH with urinary obstruction, history of bladder cancer, antiplatelet or antithrombotic long-term use Review of Systems PHQ Score Initial Depression Screen Score: 0 SCORE No fevers noted. No vomiting. Typical po intake. No gross hematuria noted in tubing/bag. Physical Exam Vitals & Measurements T: 36.7 ???C(Oral) HR: 88(Peripheral) RR: 18 BP: 130/73 HT: 70 in HT: 177 cm WT: 81 kg WT: 178.574 lb BMI: 25.85 General: ill-appearing. Frail. Mouth: moist mucosa Lungs: normal respiratory effort Cardio: regular rate, good distal perfusion Abdomen: nondistended, no suprapubic distention or tenderness, no CVA tenderness Neurologic: Grossly normal Skin: No rashes or suspicious lesions Assessment/Plan PRW pt. 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 1. Ureteral stone (N20.1: Calculus of ureter) Pt presented to [facility] 05/22/[address] AP wo con 05/22/24 [facility] - prominent left hydro and perirenal stranding/edema secondary to an obstructing 7 mm stone within the proximal ureter. Dodge catheter within bladder. There is also an irregular shaped heterogeneous partially hyperdense structure within the bladder, 3.8 cm. Within the structure several foci of free air. Urology consulted due to obstructing stone and septic shock. S/p cysto and L stent placement 05/26/24. S/p Ureteroscopy 08/06/24 - ureteral stone basketed. Stent removed. Laser ablation of 4 cm suspected bladder stone which turned out to be a fungal ball. Bladder cleared via Ilich and dodge replaced. Dc'd on Cipro x 3d. Tissue sample sent for pathology which showed fungal ball. Tissue also sent for Cx which showed light growth of Klebsiella, Enterococcus, and Wally. 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 They report 4 days of progressive hallucinations/AMS, weakness, odor to urine, increased bladder spasms. Vitals look ok but his color looks bad and he can barely stay awake during visit. With his hx of Urosepsis in May and being post-op, I recommended they take him to [facility] ER for blood work. If doesn't get admitted, would recommend he be started on abx and antifungal. I did call report to ER provider and provide recent history as well as these recommendations. Ordered: E&M of Est. Patient High 40-54 Min 95503 2. Urinary retention (R33.9: Retention of urine, unspecified) [place] since at least Fall 2023 but also had retention prior to that. [facility] provided Oxybutynin 5mg bid for bladder spasms. Initial plan was to attempt fill & pull a few weeks after procedure on 08/06/24, however considering today's events this will need postponed until pt is healthier/more mobile. Will need to stop the Oxybutynin at least a day or 2 prior. Ordered: E&M of Est. Patient High 40-54 Min 65531 3. History of bladder cancer (Z85.51: Personal history of malignant neoplasm of bladder) Cysto/cyto/FISH 08/19/23 - neg. Has reminder for Jul 2025 for next bladder check w PRW. [Not addressed today.] Ordered: E&M of Est. Patient High 40-54 Min 88633 4. Personal history of prostate cancer (Z85.46: Personal history of malignant neoplasm of prostate) S/p brachytherapy 2002. PSA: 04/18/22 - 3.27 05/09/22 - 3.92 08/19/23 - 3.7 [Not addressed today.] Ordered: E&M of Est. Patient High 40-54 Min 67957 Orders: Body Mass Index (BMI) documented 3008F Current tobacco non-user 1036F Depression Screening Negative 3352F Influenza immunization status assessed 1030F Medication list documented in medical record 1159F Most recent diastolic blood pressure <80 mm Hg 3078F Patient screen for fall risk: no falls in last year or 1 fall with no injury in last year 1101F Review of all meds by a prescribing practitioner or clinical pharmacist documented in EHR 1160F Systolic BP 130-139 mm Hg (Most Recent) 3075F Total time spent reviewing previous notes/results/external documents, preparing the chart, conducting the encounter with the patient and family, ordering tests/medications, and documenting the encounter was 40 minutes. Follow-up With When Contact Information Pt directed to proceed to [facility] ER for evaluation. Follow up with [facility] pending admission vs outpt treatment. (more content not included)... Normal [facility] Comment on above: Result Comment: Elec tronically Signed By: CHACORTA MENDOZA [email or web address]\Date and Time Signed: 08/17/24 13:34 EST Reminderson 08-13-2024 Reminders Reminders From: Alaina Dickson To: EU - Recalls [place]; Sent: 08/13/2024 11:35:43 EST Show up: 05/07/2025 11:35:00 EDT Subject: cysto/fish/cytol Due Date/Time: 05/30/2025 11:35:00 EST Reminder/Recall Patient is due in Jul 2025 for 1 year cysto/fish/cytol, bt ck Normal [facility] Aerobic Cultureon 08-06-2024 Aerobic Culture FUNGUS BALL VERBAL ORDER PER DR HARPAL ROBLES BLADDER TISSUE ORGANISM: Klebsiella pneumoniae (MDRO) (O:KLEPNEMDRO) Quantity of Growth Light Growth ORGANISM: Enterococcus faecalis (O:ENTFAC) Quantity of Growth Light Growth ORGANISM: Wally lusitaniae (O:CANLUS) Quantity of Growth Light Growth Wally 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 * This is a corrected result. * A prior result that was reported as final has been changed. Wally lusitaniae added to report. Changed Klebsiella pneumoniae to MDRO. FUNGUS BALL VERBAL ORDER PER DR HARPAL ROBLES BLADDER TISSUE ORGANISM: Prevotella bivia (O:PREBIV) Quantity of Growth Light Growth Please contact Microbiology within 7 days if anaerobic susceptibilities are needed. FUNGUS BALL VERBAL ORDER PER DR HARPAL ROBLES BLADDER TISSUE Gram Stain Result 1+ Gram Negative Bacilli Rare Gram Positive Cocci Aerobic MIGUEL Charge (NMIC56) SUSCEPTIBILITY ORGANISM: O:KLEPNEMDRO ANTIBIOTIC INTERPRETATION MIGUEL Amikacin S <16 Amoxacillin/K Clavulanate S <8 Ampicillin/Sulbactam R >16 Aztreonam S <4 Cefazolin S 8 Cefepime S <2 Ceftazidime S <1 Ceftazidime/Avibactam S <4 Ceftolozane/Tazobactam S <2 Ceftriaxone S <1 Cefuroxime S 8 Ciprofloxacin I 0.5 Ertapenem S <0.5 Gentamicin S <2 Levofloxacin I 1 Meropenem S <1 Meropenem/Vaborbactam S <2 Piperacillin/Tazobactam S <8 Tetracycline R >8 Tigecycline S <2 Tobramycin S <2 Trimethoprim/Sulfamethoxazo le S Aerobic MIGUEL Charge (PCMIC38) SUSCEPTIBILITY ORGANISM: O:ENTFAC ANTIBIOTIC INTERPRETATION MIGUEL Ampicillin S <2 Daptomycin S <0.5 Linezolid S 2 Penicillin S 2 Vancomycin S 1 S = SUSCEPTIBLE I = INTERMEDIATE R = RESISTANT BLANK = DATA NOT AVAILABLE, OR DRUG NOT ADVISABLE OR TESTED R* = RESISTANCE DUE TO EXTENDED SPECTRUM BETA-LACTAMASES ESBL = EXTENDED SPECTRUM BETA-LACTAMASE TFG = THYMIDINE-DEPENDENT STRAIN CHARLENE = BETA-LACTAMASE POSITIVE IB = INDUCIBLE BETA-LACTAMASE. APPEARS IN PLACE OF 'S' WITH SPECIES KNOWN TO POSSESS INDUCIBLE BETA-LACTAMASES. POTENTIALLY THEY MAY BECOME RESISTANT TO ALL B-LACTAM DRUGS. PERFORMED BY: [place] [address] PATHOLOGIST CATHODE MAKER ABBIE BROWN M.D. Normal [facility] Comment on above: Performed By: #### A ERC #### [address] Basic Metabolic Panelon 07-09 Anion gap [Moles/Vol] 11.9 mmol/L Normal 6.0-15.0 e [facility] Comment on above: Performed By: #### C BC, BMP #### [place] [id number] [facility] Calcium [Mass/Vol] 8.6 mg/dL Normal 8.6-10.3 [facility] Comment on above: Performed By: #### C BC, BMP #### [address] Chloride [Moles/Vol] 102 mmol/L Normal 98-107 [facility] Comment on above: Performed By: #### C BC, BMP #### [address] CO2 [Moles/Vol] 26.6 mmol/L Normal 21.0-31.0 [facility] Comment on above: Performed By: #### C BC, BMP #### [address] Creatinine [Mass/Vol] 0.87 mg/dL Normal 0.70-1.30 [facility] Comment on above: Performed By: #### C BC, BMP #### [place] [address] [place] Creatinine Clr Calc Pharmacy 61.77 Normal [facility] Comment on above: Result Comment: PERF ORMED BY: [place] [address] PATHOLOGIST CATHODE MAKER ABBIE BROWN M.D. Performed By: #### C BC, BMP #### [place] [address] [place] GFR/1.73 sq M.predicted MDRD (S/P/Bld) [Vol rate/Area] mL/min/{1.73_m2} Normal [facility] Comment on above: Performed By: #### C BC, BMP #### [address] Glucose [Mass/Vol] 268 mg/dL High 70-100 [facility] Comment on above: Result Comment: [place] Glucose Reference Range is dependent on time and content of last meal. Glucose of more than 200 mg/dL in a nonstressed, ambulatory subject supports the diagnosis of Diabetes Mellitus. ADA recommended reference range Performed By: #### C BC, BMP #### [address] Potassium [Moles/Vol] 3.5 mmol/L Normal 3.5-5.1 [facility] Comment on above: Performed By: #### C BC, BMP #### [address] Sodium [Moles/Vol] 137 mmol/L Normal 136-145 [facility] Comment on above: Performed By: #### C BC, BMP #### [address] Urea nitrogen [Mass/Vol] 12 mg/dL Normal 7-25 [facility] Comment on above: Performed By: #### C BC, BMP #### [address] Basophils Auto (Bld) [#/Vol] Ordered By: Preston Mae on 08-06-2024 Basophils (Bld) [#/Vol] Automated basophil count 0.0-0.2 [facility] Basophils/100 WBC Auto (Bld) Ordered By: Preston Mae on 08-06-2024 Basophils/100 WBC (Bld) Automated basophil % . [facility] Calcium [Mass/volume] in Ser um or PlasmaOrdered By: Preston Mae on 08-06-2024 Calcium [Mass/Vol] Calcium [Mass/volume ] in Serum or Plasma 8.6-10.3 [facility] Calculi, Urinaryon 5 Ca Oxalate Dihydrate 20 % Normal . [facility] Comment on above: Performed By: #### C ALCULI #### [facility] , Ca Oxalate Monohydrate 80 % Normal . Th e [facility] Comment on above: Performed By: #### C ALCULI #### [facility] , Color (U) Brown Normal . [facility] Comment on above: Performed By: #### C ALCULI #### [facility] , Comment: Comment Normal . [facility] Comment on above: Result Comment: Phys alessandra questions regarding Calculi Analysis contact [facility] at: [phone]. Performed By: #### C ALCULI #### [facility] , Composition Comment Normal . [facility] Comment on above: Result Comment: Perc entage (Represents the % composition) Performed By: #### C ALCULI #### [facility] , Disclaimer: Comment Normal . [facility] Comment on above: Result Comment: This test was developed and its performance characteristics determined by [facility]. It has not been cleared or approved by the Food and Drug Administration. Performed at: [facility] [address] [place] [address] [id number] Dietetic Tech: Hai Laureano PhD, Phone: [phone] Performed By: #### C ALCULI #### [facility] , Note Comment Normal . [facility] Comment on above: Result Comment: Calc cecilio report will follow via computer, mail or certified veterinary technician delivery. PERFORMED BY: [address] [address] PATHOLOGIST CATHODE MAKER ABBIE BROWN M.D. Performed By: #### C ALCULI #### [facility] , Photo Comment Normal . [facility] Comment on above: Result Comment: Phot aishwarya will follow under a separate cover Performed By: #### C ALCULI #### [facility] , Size 4x4 Normal . [facility] Comment on above: Result Comment: Aric bullard. Performed By: #### C ALCULI #### [facility] , Source Ureter Normal . [facility] Comment on above: Performed By: #### C ALCULI #### [facility] , Weight 39 Normal . [facility] Comment on above: Performed By: #### C ALCULI #### [facility] , Carbon dioxide, total [Moles /volume] in Serum or PlasmaOrdered By: Preston Mae on 08-06-2024 CO2 [Moles/Vol] Carbon dioxide, tota l [Moles/volume] in Serum or Plasma 21.0-31.0 [facility] Chloride [Moles/volume] in S vera or PlasmaOrdered By: Preston Mae on 08-06-2024 Chloride [Moles/Vol] Chloride [Moles/vol ume] in Serum or Plasma 98-107 [facility] Complete Blood Count Auto Di ffon 08-06-2024 Basophils (Bld) [#/Vol] 0.0 10*3/uL Normal 0.0-0.2 [facility] Comment on above: Result Comment: PERF ORMED BY: [place] [address] PATHOLOGIST CATHODE MAKER ABBIE BROWN M.D. Performed By: #### C BC, BMP #### [address] Basophils/100 WBC (Bld) 0.2 % Normal . [facility] Comment on above: Performed By: #### C BC, BMP #### [address] Eosinophils (Bld) [#/Vol] 0.1 10*3/uL Normal 0.0-0.45 [facility] Comment on above: Performed By: #### C BC, BMP #### [address] Eosinophils/100 WBC (Bld) 1.3 % Normal . [facility] Comment on above: Performed By: #### C BC, BMP #### [address] Erythrocyte distribution width (RBC) [Ratio] 16.8 % High 12.0-14.8 [facility] Comment on above: Performed By: #### C BC, BMP #### [address] Hematocrit (Bld) [Volume fraction] 33.4 % Low 38.8-50.0 [facility] Comment on above: Performed By: #### C BC, BMP #### [address] Hemoglobin (Bld) [Mass/Vol] 11.0 g/dL Low 13.0-17.0 [facility] Comment on above: Performed By: #### C CINDI, BMP #### [address] Lymphocytes (Bld) [#/Vol] 0.7 10*3/uL Low 1.00-4.8 [facility] Comment on above: Performed By: #### C BC, BMP #### [address] Lymphocytes/100 WBC (Bld) 12.4 % Normal . [facility] Comment on above: Performed By: #### C CINDI, BMP #### [address] MCH (RBC) [Entitic mass] 27.5 pg Normal 27.5-35.2 [facility] Comment on above: Performed By: #### C CINDI, BMP #### [address] MCV (RBC) [Entitic vol] 83.3 fL Low 83.5-101 [facility] Comment on above: Performed By: #### C CINDI, BMP #### [address] Mean Corpuscular HGB Conc 33.0 g/dL Normal 32.5-35.6 [facility] Comment on above: Performed By: #### C BC, BMP #### [address] Monocytes (Bld) [#/Vol] 0.4 10*3/uL Normal 0.0-0.8 [facility] Comment on above: Performed By: #### C BC, BMP #### [address] Monocytes/100 WBC (Bld) 7.4 % Normal . [facility] Comment on above: Performed By: #### C BC, BMP #### [address] Neutrophils (Bld) [#/Vol] 4.7 10*3/uL Normal 1.8-7.7 [facility] Comment on above: Performed By: #### C BC, BMP #### [address] Neutrophils/100 WBC (Bld) 78.7 % Normal . [facility] Comment on above: Performed By: #### C BC, BMP #### [facility] [address] NRBC% 0.1 /100{WBC} Normal 0-0.5 [facility] Comment on above: Performed By: #### C BC, BMP #### [address] Platelet mean volume (Bld) [Entitic vol] 7.5 fL Normal 6.6-10.1 [facility] Comment on above: Performed By: #### C BC, BMP #### [address] Platelets (Bld) [#/Vol] 155 10*3/uL Normal 150-450 [facility] Comment on above: Performed By: #### C BC, BMP #### [address] RBC (Bld) [#/Vol] 4.01 10*6/uL Normal 3.90-5.60 [facility] Comment on above: Performed By: #### C BC, BMP #### [place] [address] [place] WBC (Bld) [#/Vol] 6.0 10*3/uL Normal 4.1-10.5 [facility] Comment on above: Performed By: #### C BC, BMP #### [place] [address] [place] Creatinine [Mass/volume] in Serum or PlasmaOrdered By: Preston Mae on 08-06-2024 Creatinine [Mass/Vol] Creatinine [Mass/v olume] in Serum or Plasma 0.70-1.30 [facility] Eosinophils Auto (Bld) [#/Vo l]Ordered By: Preston Mae on 08-06-2024 Eosinophils (Bld) [#/Vol] Automated eosinophil count 0.0-0.45 [facility] Eosinophils/100 WBC Auto (Bl d)Ordered By: Preston Mae on 08-06-2024 Eosinophils/100 WBC (Bld) Automated eosinophil % . [facility] Erythrocyte distribution wid th Auto (RBC) [Ratio]Ordered By: Preston Mae on 08-06-2024 Erythrocyte distribution width (RBC) [Ratio] Erythrocyte distribution width [Ratio] by Automated count High 12.0-14.8 [facility] Fungus # 2 identified in Uns pecified specimen by CultureOrdered By: Olman Aponte on 08-06-2024 Fungus identified # 2 Cx Nom (Unsp spec) Fungus # 2 identified in Unspecified specimen by Culture [facility] Fungus # 3 identified in Uns pecified specimen by CultureOrdered By: Olman Aponte on 08-06-2024 Fungus identified # 3 Cx Nom (Unsp spec) Fungus # 3 identified in Unspecified specimen by Culture [facility] Fungus # 4 identified in Uns pecified specimen by CultureOrdered By: Olman Aponte on 08-06-2024 Fungus identified # 4 Cx Nom (Unsp spec) Fungus # 4 identified in Unspecified specimen by Culture [facility] Glucose [Mass/volume] in Ser um or PlasmaOrdered By: Preston Mae on 08-06-2024 Glucose [Mass/Vol] Glucose [Mass/volume ] in Serum or Plasma High 70-100 [facility] Comment on above: ADA recommended refe rence rangeRandom Glucose Reference Range is dependent on time and content of last meal. Glucose of more than 200 mg/dL in a nonstressed, ambulatory subject supports the diagnosis of Diabetes Mellitus. Hematocrit Auto (Bld) [Volum e fraction]Ordered By: Preston Mae on 08-06-2024 Hematocrit (Bld) [Volume fraction] Hematocrit [Volume Fraction] of Blood by Automated count Low 38.8-50.0 [facility] Hemoglobin [Mass/volume] in BloodOrdered By: Preston Mae on 08-06-2024 Hemoglobin (Bld) [Mass/Vol] Hemoglobin [Mass/volume] in Blood Low 13.0-17.0 [facility] Nilesh 08-06-2024 L ------- Specimen: [id number] Received: 08/06/24 Status: CHOLO White Num: [id number] Spec Type: Surgical Subm Dr: Olman Aponte MD Tissues: A Soft Tissue/Surgical Margin-Other than Tumor,Mass,Lip or Kamilla (FUNGUS BALL) B Soft Tissue/Surgical Margin-Other than Tumor,Mass,Lip or Kamilla (FUNGUS BALL) C Urinary Calculus (UTERAL STONE) Procedures: Jennie FALK/Oumar L4/2, Level 1 JAIME Schneider QWIK Age/ Patient Sex Location Account Attending Physician Ben Guadalupe/M [place] [id number] Olman Aponte MD SPEC NUM: [id number] RECD: 08/06/24 STATUS: CHOLO WHITE NUM: [id number] HAYLEY: 08/06/[address]: Olman Aponte MD ENTERED: 08/06/[address] [facility] DR: SPEC TYPE: Surgical DEPT: S ORDERED: HE, Gross/Micro L4/2, Level 1 Gross, DIFF QWIK ORDERED: HE, Gross/Micro L4/2, Level 1 Gross, DIFF QWIK Pathological Diagnosis A, fungus ball in formalin, removal: -Fragments of markedly degenerated debris with occasional calcification and a few large clusters of small spores in dense aggregates, and rarely occasionally intermixed pseudohyphae, 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 Gross only examination. Pending chemical analysis Specimen: [id number] Received: 08/06/24 Status: CHOLO White Num: [id number] Spec Type: Surgical Subm Dr: Olman Aponte MD Tissues: A Soft Tissue/Surgical Margin-Other than Tumor,Mass,Lip or Kamilla (FUNGUS BALL) B Soft Tissue/Surgical Margin-Other than Tumor,Mass,Lip or Kamilla (FUNGUS BALL) C Urinary Calculus (UTERAL STONE) Procedures: HE, Gross/Micro L4/2, Level 1 Gross, DIFF QWIK Patient: Ben Guadalupe [id number] (Continued) Specimen: [id number] Received: 08/06/24 (Continued) Signed (signature on file) Tex Astudillo MD 08/09/24 1608 Specimen: [id number] Received: 08/06/24 Status: CHOLO White Num: [id number] Spec Type: Surgical Subm Dr: Olman Aponte MD Tissues: A Soft Tissue/Surgical Margin-Other than Tumor,Mass,Lip or Kamilla (FUNGUS BALL) B Soft Tissue/Surgical Margin-Other than Tumor,Mass,Lip or Kamilla (FUNGUS BALL) C Urinary Calculus (UTERAL STONE) Procedures: DILEEP, Gross/Micro L4/2, Level 1 Gross, JAIME QWIK Patient: Ben Guadalupe [id number] (Continued) Specimen: [id number] Received: 08/06/24-1354 (Continued) Clinical Information Bladder stone Gross Description A. Received in formalin labeled with the patient's name, date of and #1 fungus ball is a 3.2 x 3.0 x 0.8 cm aggregate of soft and rubbery pale-cason tissue fragments. No areas of calcification or hemorrhage are present. Mission Analyst sections are submitted in A1. B. Received fresh labeled with the patient's name, date of and #2 fungus ball is a 3.0 x 3.0 x 0.7 cm aggregate of soft and rubbery pale-cason tissue fragments. A touch prep is performed. The specimen is sent out for further testing to microbiology. C. Received fresh labeled with the patient's name, date of and #3 ureteral stone is a 0.5 x 0.4 x 0.2 cm jagged black stone. The specimen is entirely sent out to [facility] for stone analysis. TW Microscopic Description Microscopic examinations are performed supporting the above interpretation CPT Codes [id number] Specimen: [id number] Received: 08/06/240 Status: CHOLO [place] (more content not included)... Normal [facility] Leukocytes [#/volume] correc jeannie for nucleated erythrocytes in Blood by Automated counOrdered By: Preston Mae on 08-06-2024 WBC corrected for nucl RBC Auto (Bld) [#/Vol] Leukocytes [#/volume] corrected for nucleated erythrocytes in Blood by Automated coun 4.1-10.5 [facility] Lymphocytes Auto (Bld) [#/Vo l]Ordered By: Preston Mae on 08-06-2024 Lymphocytes (Bld) [#/Vol] Lymphocytes [#/volume] in Blood by Automated count Low 1.00-4.8 [facility] Lymphocytes/100 WBC Auto (Bl d)Ordered By: Preston Mae on 08-06-2024 Lymphocytes/100 WBC (Bld) Lymphocytes/100 leukocytes in Blood by Automated count . [facility] MCH Auto (RBC) [Entitic mass ]Ordered By: Preston Mae on 08-06-2024 MCH (RBC) [Entitic mass] MCH [Entitic mass] by Automated count 27.5-35.2 [facility] MCHC Auto (RBC) [Mass/Vol]Or dered By: Preston Mae on 08-06-2024 MCHC (RBC) [Mass/Vol] MCHC [Mass/volume] by Automated count 32.5-35.6 [facility] MCV Auto (RBC) [Entitic vol] Ordered By: Preston Mae on 08-06-2024 MCV (RBC) [Entitic vol] MCV [Entitic volume] by Automated count Low 83.5-101 [facility] Monocytes Auto (Bld) [#/Vol] Ordered By: Preston Mae on 08-06-2024 Monocytes (Bld) [#/Vol] Automated blood monocyte count 0.0-0.8 [facility] Monocytes/100 WBC Auto (Bld) Ordered By: Preston Mae on 08-06-2024 Monocytes/100 WBC (Bld) Automated monocyte % . [facility] Neutrophils Auto (Bld) [#/Vo l]Ordered By: Preston Mae on 08-06-2024 Neutrophils (Bld) [#/Vol] Neutrophils [#/volume] in Blood by Automated count 1.8-7.7 [facility] Neutrophils/100 WBC Auto (Bl d)Ordered By: Preston Mae on 08-06-2024 Neutrophils/100 WBC (Bld) Automated neutrophil % . [facility] No Panel InformationOrdered By: Olman Aponte on 08-06-2024 Mycology Susceptibility N/A [facility] No Panel InformationOrdered By: Preston Mae on 08-06-2024 Estimated GFR (CKD-EPI) > 60.0 mL/Min [facility]acy Creatinine Clearance (Chem 61.77 [facility] Nucleated erythrocytes [Pres ence] in Blood by Automated countOrdered By: Preston Mae on 08-06-2024 Nucleated RBC Auto Ql (Bld) Nucleated erythrocytes [Presence] in Blood by Automated count 0-0.5 [facility] Platelet mean volume Auto (B ld) [Entitic vol]Ordered By: Preston Mae on 08-06-2024 Platelet mean volume (Bld) [Entitic vol] Platelet mean volume [Entitic volume] in Blood by Automated count 6.6-10.1 [facility] Platelets Auto (Bld) [#/Vol] Ordered By: Preston Mae on 08-06-2024 Platelets (Bld) [#/Vol] Platelets [#/volume] in Blood by Automated count 150-450 [facility] Potassium [Moles/volume] in Serum or PlasmaOrdered By: Preston Mae on 08-06-2024 Potassium [Moles/Vol] Potassium [Moles/v olume] in Serum or Plasma 3.5-5.1 [facility] RBC Auto (Bld) [#/Vol]Ordere d By: Preston Mae on 08-06-2024 RBC (Bld) [#/Vol] Erythrocytes [#/volu me] in Blood by Automated count 3.90-5.60 [facility] Serum or plasma anion gap de terminationOrdered By: Preston Mae on 08-06-2024 Anion gap [Moles/Vol] Serum or plasma an ion gap determination 6.0-15.0 [facility] Sodium [Moles/volume] in Ser um or PlasmaOrdered By: Preston Mae on 08-06-2024 Sodium [Moles/Vol] Sodium [Moles/volume ] in Serum or Plasma 136-145 [facility] Urea nitrogen [Mass/volume] in Serum or PlasmaOrdered By: Preston Mae on 08-06-2024 Urea nitrogen [Mass/Vol] Urea nitrogen [Mass/volume] in Serum or Plasma 7-25 [facility] WBC Auto (Bld) [#/Vol]Ordere d By: Preston Mae on 08-06-2024 WBC (Bld) [#/Vol] Leukocytes [#/volume ] in Blood by Automated count 4.1-10.5 [facility] X-ray reportOrdered By: Marbin Willams on 08-06-2024 Study report [facility] [address] XRay Report Signed Patient: Ben Guadalupe MR#: [id number] : 1935 Acct:[id number] Age/Sex: 88 / M ADM Date: 5 Loc: [place] Room: Type: [facility] Attending Dr: Olman Aponte MD Copies to: Olman Aponte MD~ Ordering Provider: Olman Aponte MD Date of Service: 08/06/24 XR/XR KUB: . Intraoperative study. Reason for exam: Preop bladder/kidney stone. Findings: 4 images were obtained intraoperatively. Intraoperative changes are seen. Cumulative Air Kerma in mGy: 9 mGy XR/XR KUB Impression: Intraoperative study. Impression dictated by: Derian Willams Jr., D.O.08/06/2024 2:02 PM Dictation Location: [place] [address] Transcribed By: [facility] 08/06/24 1402 Dictated By: Derian Willams Jr, DO 08/06/24 1401 Signed By: 08/06/24 1402 [facility] Study report [address] [address] XRay Report Signed Patient: Ben Guadalupe MR#: [id number] : 1935 Acct:[id number] Age/Sex: 88 / M ADM Date: 5 Loc: [place] Room: Type: [facility] Attending Dr: Olman Aponte MD Copies to: Olman Aponte MD~ Ordering Provider: Olman Aponte MD Date of Service: 08/06/24 XR/XR KUB: Pre Op KUB: CLINICAL INFORMATION: Preop cystoscopy stent today. Kidney stones. COMPARISON: None FINDINGS: Left-sided ureteral stent is in place. No definite urinary tract calcification is seen. No bowel obstruction or free air. 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 Osseous structures demonstrate degenerative change. XR/XR KUB IMPRESSION: Left-sided ureteral stent is in place. No suspicious urinary tract calcifications. Impression dictated by: Derian Willams Jr., DAshwiniOAshwini08/06/2024 2:01 PM Dictation Location: [facility]- Transcribed By: [facility] 08/06/24 1401 Dictated By: Derian Willams Jr, DO 08/06/24 1400 Signed By: 08/06/24 1401 [facility] XR KUBon 08-06-2024 XR KUB [address] [address] XRay Report Signed Patient: Ben Guadalupe MR#: [id number] : 1935 Acct:[id number] Age/Sex: 88 / M ADM Date: 08/06/24 Loc: [place] Room: Type: [facility] Attending Dr: Olman Aponte MD Copies to: Olman Aponte MD Ordering Provider: Olman Aponte MD Date of Service: 08/06/24 XR/XR KUB: . Intraoperative study. Reason for exam: Preop bladder/kidney stone. Findings: 4 images were obtained intraoperatively. Intraoperative changes are seen. Cumulative Air Kerma in mGy: 9 mGy XR/XR KUB Impression: Intraoperative study. Impression dictated by: Aida Álvarez Jr.OAshwini08/06/2024 2:02 PM Dictation Location: [facility]23 Transcribed By: KATRINA 08/06/24 1402 Dictated By: Derian Willams Jr, DO 08/06/24 1401 Signed By: 08/06/24 1402 Normal [facility] XR KUB [facility] [place] [address] XRay Report Signed Patient: Ben Guadalupe MR#: [id number] : 1935 Acct:[id number] Age/Sex: 88 / M ADM Date: 08/06/24 Loc: [place] Room: Type: [facility] Attending Dr: Olmna Aponte MD Copies to: Olman Aponte MD Ordering Provider: Olman Aponte MD Date of Service: 08/06/24 XR/XR KUB: Pre Op KUB: CLINICAL INFORMATION: Preop cystoscopy stent today. Kidney stones. COMPARISON: None FINDINGS: Left-sided ureteral stent is in place. No definite urinary tract calcification is seen. No bowel obstruction or free air. 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 Osseous s tructures demonstrate degenerative change. XR/XR KUB IMPRESSION: Left-sided ureteral stent is in place. No suspicious urinary tract calcifications. Impression dictated by: Aida Álvarez Jr.OAshwini08/06/2024 2:01 PM Dictation Location: [facility]23 Transcribed By: KATRINA 08/06/24 1401 Dictated By: Derian Willams Jr, DO 08/06/24 1400 Signed By: 08/06/24 1401 Normal [facility] Reminderson 08-03-2024 Reminders Reminders From: Alaina Dickson To: EU - Recalls Vergara; Sent: 08/03/2024 11:21:43 EST Show up: 05/07/2025 11:21:00 EDT Subject: cysto/fish/cytol Due Date/Time: 05/30/2025 11:21:00 EST Reminder/Recall Patient is due in Jul 2025 for 1 year cysto/fish/cytol (bt ck) Normal [facility] Reminderson 07-27-2024 Reminders Reminders From: Alaina Dickson To: EU - Recalls Vergara; Sent: 08/29/2023 09:01:00 EST Show up: 07/07/2024 09:00:00 EST Subject: cysto/fish/cytol Due Date/Time: 07/26/2024 09:00:00 EST Reminder/Recall Patient is due in Aug 2024 for 1 year cysto/fish/cytol (bt ck)/PSA Patient sched 08/06/[address] Aponte for stone surgery. LG Normal [facility] Ambulatory Visit Summaryon 1 08-30-2023 Ambulatory Visit Summary Ambulatory Visit Summary BEN GUADALUPE :1935 Visit Date:06/29/2024 Ambulatory Visit Instructions Your Diagnosis Rising PSA 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 Urinary retention Prostatitis BPH with urinary obstruction Urge incontinence History of bladder cancer Anticoagulated Your Care Team Attending Physician - Olman APONTE MD Primary Care Physician - COLTON GUADALUPE CNP [...] (glipiZIDE 5 mg Tab) lactobacillus rhamnosus GG ([facility]) levothyroxine (levothyroxine 50 mcg [...] or concerns (more content not included)... Normal [facility] Urology Office/Clinic Noteon 06-29-2024 Urology Office/Clinic Note Urology Office/Clinic Note Chief Complaint 1 mth [facility] f/u [facility] follow up [facility] 05/26/24 due to bladder stone Pt is [...] and ureteral calculous obstruction) Pt presented to [facility] 05/22/[address] AP wo [...] 8. 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 Elevated risk for periop complications. Overall I had an extensive discussion by video visit with the patient and his family. We went over the fact that he had septic shock and an obstructing ureteral stone. He does carry m (more content not included)... Normal [facility] Comment on above: Result Comment: Elec tronically Signed By: HARPAL WORKMAN, Olman P\.br\Date and Time Signed: 06/29/24 11:10 EST\.br\Electronically Co-Signed By: Arminda Lima\.br\Date and Time Co-Signed: 06/29/24 11:07 EST Main OR Intraoperative Recor don 01-06-2024 Main OR Intraoperative Record Main OR Intraoperative Record IntraOp Document Type FTURO Summary Primary Physician: Mekhi VERGARA MD Finalized Date/Time: 01/06/24 17:04:08 Pt. Name: BEN GUADALUPE/Sex: 1935 Male Med Rec #: [id number] Physician: Mekhi VERGARA MD Financial #: [id number] Pt. Type: O Room/Bed: / Admit/Disch: 08/19/23 [...] Aicha Palacio Role Performed Surgeon - Primary Solid Center Winder - Primary Scrub - Primary Time In [...] Position Verified Availability Equipment, Implant, Time Out Mekhi VERGARA MD, Verified (If Medication Participants Italo MCLAUGHLIN, SHAHLAOR, [...] 17:02 MARCELINA Puckett RN, Ruthann 01/06/24 17:04 [facility] Main OR Preoperative Recordo n 01-06-2024 Main OR Preoperative Record Main OR Preoperative Record Holding Area Document Type FTURO Summary Primary Physician: Mekhi VERGARA MD Finalized Date/Time: 01/06/24 17:05:09 Pt. Name: BEN GUADALUPE/Sex: 1935 Male Med Rec #: [id number] Physician: Mekhi VERGARA MD Financial #: [id number] Pt. Type: O Room/Bed: / Admit/Disch: 08/19/23 [...] MARCELINA Puckett RN, Ruthann 01/06/24 17:05 Normal [facility] UroVysion Fish and Urine Cyt o ([facility])on 10-28-2023 UVFISH & UC Diagnosis Info Invalid Interpretation Code [facility] Comment on above: Result [...] correlated with cytology and cystoscopy results.* CPT 45277, 52851. Microscopic Notes - Microscopic Notes - Abnormal cells 9p21 deletions: Abnormal cells aneploid events: Total cells analyzed: 100 Hematuria: Gross Description Site ID:A color Yellow fixative Alcohol Received 90 mls of clear yellow fluid with the patient's name and, Urine on the vial. Electronically signed by : on: 08/25/2023 23:10:47 Performed By: #### 1 [id number] ####[facility] [address] [place] [address] Lab Reportson 10-10-2023 Lab Reports [id number]#1.00TIFF Normal [facility] Reference Lab Reporton 10-09 Reference Lab Report [id number]#1.00TIFF Normal [facility] Telemedicineon 08-28-2023 Telemedicine [id number] Ben Guadalupe 1935 M Date Provider Department Center 08/28/2023 NERISSA TESFAYE CARD [facility] Family History Problem Relation Age of Onset Heart failure Mother Prostate cancer Father Coronary artery disease Brother Prostate cancer Brother Family Status - Relation Status Age at Mother Father Brother Level of Service:03364 SC PHYS/QHP TELEPHONE EVALUATION 11-20 MIN Reason for Visit and Comments: Atrial Fibrillation [80] Hypertension [678218] Congestive Heart Failure [127] Normal [facility] Consent for Procedure/Surger yon 08-25-2023 Consent for Procedure/Surgery [id number]#1.00TIFF Normal [facility] IntraOperative Documentson 0 08-25-2023 IntraOperative Documents [id number]#1.00TIFF [facility] CHEMISTRYOrdered By: SYSTEM SYSTEM on 08-19-2023 PSA Total 3.7 ng/mL High 0.1 - 3.5 ng/mL [facility] Comment on above: Interpretive Data: T he concentration of PSA determined by different manufacturers can vary due to differences in assay methods and reagent specificity. Values obtained from different assay methods cannot be used interchangeably. The methodology used for this result was chemiluminescence using [employer]'s Access Hybritech PSA reagent. Consent for Treatmenton 08-07 Consent for Treatment [id number]#1.00TIFF [facility] Consent for Treatment [id number]#[address]00TIFF [facility] Operative Reporton Operative Report Patient: BEN [...] coverage, Follow up arranged. Normal [facility] Comment on above: Result Comment: Elec tronically Signed By: URSULA WORKMAN, Mekhi Willard.roland\Date and Time Signed: 08/19/23 16:18 EST PSA Totalon 08-19-2023 PSA Total 3.7 ng/mL High 0.1-3.5 [facility] Comment on above: Result Comment: The concentration of PSA determined by different manufacturers can vary due to differences in assay methods and reagent specificity. Values obtained from different assay methods cannot be used interchangeably. The methodology used for this result was chemiluminescence using [employer]'s Access Hybritech PSA reagent. Performed By: #### 1 [id number] ####[facility] [address] [place] [address] UroVysion Fish and Urine Cyt o ( Labs)on 08-19-2023 [facility]UC Method of Extraction Cystoscopy Normal [facility] Comment on above: Performed By: #### 1 [id number] ####[facility] [address] [place] [address] [facility] Number of Jars 1 Invalid Interpretation Code [facility] Comment on above: Performed By: #### 1 [id number] ####[facility] [address] [place] [address] [facility] Specimen Urine Normal [facility] Comment on above: Performed By: #### 1 [id number] ####[facility] [address] [place] [address] [facility] Type of Service Technical Only Normal [facility] Comment on above: Performed By: #### 1 [id number] ####[facility] [address] [place] [address] Office Visiton 03-07-2023 Follow-up visit [id number] Ben Guadalupe 1935 M Date Provider Department Center 03/07/2023 ANDREA GOLDSTEIN CONCHIS John Family History Problem Relation Age of Onset Heart failure Mother Prostate cancer Father Coronary artery disease Brother Prostate cancer Brother Family Status - Relation Status Age at Mother Father Brother Level of Service:60645 SC OFFICE/OUTPATIENT ESTABLISHED MOD MDM 30-39 MIN Normal [facility] POINT OF CARE GLUCOSEon 10-06 Glucose [Mass/Vol] 230 mg/dL Critically high 74-106 [facility] Comment on above: Performed By: #### P SAD #### [facility] [address] [place] [address] [address] Mason Astudillo Office Visiton 10-18-2022 Follow-up visit [id number] Ben Guadalupe 1935 M Date Provider Department Center 10/18/2022 NERISSA TESFAYE Family History Problem Relation Age of Onset Heart failure Mother Prostate cancer Father Coronary artery disease Brother Prostate cancer Brother Family Status - Relation Status Age at Mother Father Brother Level of Service:60517 SC OFFICE/OUTPATIENT ESTABLISHED LOW MDM 20-29 MIN Reason for Visit and Comments: Coronary Artery Disease [187] Atrial Fibrillation [80] Normal [facility] ANESon 10-11-2022 ANES ------- Attestation signed by Rosi Stone MD at [...] me. Patient: Ben Guadalupe Procedure Information Date/Time: 10/11/22899 Procedure: TRANSESOPHAGEAL ECHO (KINZA) Location: [facility] Vascular Lab Clinical [...] fellow and attending. Additional Equipment Requests Normal [facility] HPon 10-11-2022 ------- Attestation signed by Rosi Stone MD at [...] there are no changes to the H&P. [facility] 09-11-2022 [facility] Cardiology - [facility] Subjective [...] dizziness/LH, palpitations. He mobilizes with his scooter. ----- Last HPI per Dr. Danielle: Ben is [...] February 2022 he was admitted to the [facility] with palpitations and chest pain. He was [...] lower le (more content not included)... Normal [facility] POINT OF CARE GLUCOSEon 01-0 Glucose [Mass/Vol] 203 mg/dL Critically high 74-106 [facility] Comment on above: Performed By: #### U A #### [facility] [address] [place] [address] Dr. Mason Astudillo ANES POSTPROC EVALon 022 ANES POSTPROC EVAL HNO ID: [id number] Author: Kandice Guadalupe MD Service: ? Author Type: Physician Type: Anesthesia Postprocedure Evaluation Filed: 05/17/2022 2:13 PM Note Text: POST ANESTHESIA EVALUATION NOTE : 1935 Procedure Summary Date: 05/17/22 [address] Start: 954 Anesthesia Stop: 1201 Procedures: [...] with this procedure. Documented by Minesh Levy APRN.MOBILE ENGINEER 05/17/2022 12:02 PM EST SIGNATURE: Kandice Guadalupe MD PATIENT NAME: Ben Guadalupe DATE: May 17, 2022 TIME: 2:13 PM CSN: [id number] Normal [facility] ANES PRE-OPon 05-17-2022 ANES PRE-OP HNO ID: [id number] Author: Kandice Guadalupe MD Service: ? Author Type: Physician Type: Anesthesia Preprocedure Evaluation Filed: 05/17/2022 8:42 AM Note Text: ANESTHESIOLOGY DAY OF SURGERY NOTE : 1935 Procedure Information Date/Time: 05/17/2215 Procedures: EXAM UNDER ANESTHESIA RECTAL (Anus) HEMORRHOIDECTOMY [...] Time BP 144/74 05/17/22 0745 Pulse 72 05/17/2245 Resp 16 05/17/2245 Temp 36.4 ?C (97.5 ?F) 05/17/22 0745 [...] mcg/actuation na (more content not included)... Normal [facility] BRIEF OP NOTon 05-17-2022 BRIEF OP NOT HNO ID: [id number] Author: Tristin Wilcox MD, PhD Service: Colorectal Author Type: Physician Type: Brief Op Note Filed: 05/17/2022 11:34 AM Note Text: BRIEF OPERATIVE NOTE - COLORECTAL SURGERY Log ID: [id number] Surgery/Procedure Date: 05/17/2022 Incision/Procedure Start Time: 10:17 AM Incision Close/Procedure End Time: 11:27 AM Surgeon(s) and Supervisor Belt And Link Assembly(s): Surgeon(s) and Role: * Tristin Wilcox MD, [...] May 17, 2022 TIME: 11:30 AM Normal [facility] Gas and Carbon monoxide pane l (BldV)on 05-17-2022 BASE DEFICIT, VENOUS -2 mmol/L Normal -2-0 [facility] Comment on above: Order Comment: Speci men Type: VENOUS BLOOD SPECIMENOrdering Facility: [facility] Address: [address] [place] [address] Performed By: #### 2 4344-4 ####[facility] LABIA [id number] [place] [address] [place] Body temperature 97.52 [degF] Normal [facility] Comment on above: Order Comment: Speci men Type: VENOUS BLOOD SPECIMENOrdering Facility: [facility] Address: [address] Performed By: #### 2 4344-4 ####[facility] LABIA [id number] [place] [address] [place] Calcium.ionized (Bld) [Mass/Vol] 1.17 mmol/L Normal 1.08-1.30 [facility] Comment on above: Order Comment: Speci men Type: VENOUS BLOOD SPECIMENOrdering Facility: [facility] Address: [address] Performed By: #### 2 4344-4 ####[facility] [id number] [place] [address] [place] Calcium.ionized adjusted to pH 7.4 (BldA) [Moles/Vol] 1.17 mmol/L Normal 1.08-1.30 [facility] Comment on above: Order Comment: Speci men Type: VENOUS BLOOD SPECIMENOrdering Facility: [facility] Address: [address] Performed By: #### 2 4344-4 ####[facility] LABIA [id number] [place] [address] [place] Carboxyhemoglobin (BldV) [Mass fraction] 1.4 % Normal 0.0-2.0 [facility] Comment on above: Order Comment: Speci men Type: VENOUS BLOOD SPECIMENOrdering Facility: [facility] Address: [address] Result Comment: Carb oxyhemoglobin Reference Range for Smokers: 2.0-8.0% Performed By: #### 2 4344-4 ####[facility] LABCLIA [id number] [place] [address] [place] CO2 (BldV) [Partial pressure] 37 mm[Hg] Low 42-55 [facility] Comment on above: Order Comment: Speci men Type: VENOUS BLOOD SPECIMENOrdering Facility: [facility] Address: [address] Performed By: #### 2 4344-4 ####[facility] LABCLIA [id number] [place] [address] [place] CO2 [Moles/Vol] 23 mmol/L Low 25-29 [facility] Comment on above: Order Comment: Speci men Type: VENOUS BLOOD SPECIMENOrdering Facility: [facility] Address: [address] [place] [address] Performed By: #### 2 4344-4 ####[facility] LABCLIA [id number] [place] [address] [place] CO2 adjusted to patient's actual temperature (BldV) [Partial pressure] 35 mmHg Low 42-55 [facility] Comment on above: Order Comment: Speci men Type: VENOUS BLOOD SPECIMENOrdering Facility: [facility] Address: [address] Performed By: #### 2 4344-4 ####[facility] LABCLIA [id number] [place] [address] [place] Glucose [Mass/Vol] 198 mg/dL High 60-105 [facility] Comment on above: Order Comment: Speci men Type: VENOUS BLOOD SPECIMENOrdering Facility: [facility] Address: [address] Performed By: #### 2 4344-4 ####[facility] LABCLIA [id number] [place] [address] [place] HCO3 (Bld) [Moles/Vol] 22 mmol/L Low 24-28 [facility] Comment on above: Order Comment: Speci men Type: VENOUS BLOOD SPECIMENOrdering Facility: [facility] Address: [address] [address] Performed By: #### 2 4344-4 ####[facility] LABCLIA [id number] [place] [address] [place] Hematocrit (Bld) [Volume fraction] 36.4 % Low 39.0-51.0 [facility] Comment on above: Order Comment: Speci men Type: VENOUS BLOOD SPECIMENOrdering Facility: [facility] Address: [address] [address] Performed By: #### 2 4344-4 ####[facility] LABCLIA [id number] [place] [address] [place] Hemoglobin (Bld) [Mass/Vol] 11.8 g/dL Low 13.0-17.0 [facility] Comment on above: Order Comment: Speci men Type: VENOUS BLOOD SPECIMENOrdering Facility: [facility] Address: [address] [place], [place] [address] Performed By: #### 2 4344-4 ####[facility] LABCLIA [id number] [place] [address] [place] Lactate [Moles/Vol] 1.9 mmol/L Normal 0.5-2.2 [facility] Comment on above: Order Comment: Speci men Type: VENOUS BLOOD SPECIMENOrdering Facility: [facility] Address: [address] Performed By: #### 2 4344-4 ####[facility] LABCLIA [id number] [place] [address] [place] Methemoglobin (Bld) [Mass fraction] 1.1 % Normal 0.0-1.5 [facility] Comment on above: Order Comment: Speci men Type: VENOUS BLOOD SPECIMENOrdering Facility: [facility] Address: [address] Performed By: #### 2 4344-4 ####[facility] LABCLIA [id number] [address] O2 THERAPY RA=Room Air Normal [facility] Comment on above: Order Comment: Speci men Type: VENOUS BLOOD SPECIMENOrdering Facility: [facility] Address: [address] [place] [address] Performed By: #### 2 4344-4 ####[facility] LABCLIA [id number] [address] [place] Oxygen (BldV) [Partial pressure] 50 mm[Hg] High 35-45 [facility] Comment on above: Order Comment: Speci men Type: VENOUS BLOOD SPECIMENOrdering Facility: [facility] Address: [address] Performed By: #### 2 4344-4 ####[facility] LABCLIA [id number] [address] [place] Oxygen adjusted to patient's actual temperature (BldV) [Partial pressure] 48 mmHg High 35-45 [facility] Comment on above: Order Comment: Speci men Type: VENOUS BLOOD SPECIMENOrdering Facility: [facility] Address: [address] [place] [address] Performed By: #### 2 4344-4 ####[facility] LABCLIA [id number] [address] [place] Oxygen saturation in Venous blood 82 % Normal 60-85 [facility] Comment on above: Order Comment: Speci men Type: VENOUS BLOOD SPECIMENOrdering Facility: [facility] Address: [address] [place] [address] Performed By: #### 2 4344-4 ####[facility] LABCLIA [id number] [address] [place] Oxyhemoglobin (BldV) [Mass fraction] 80 % Normal 60-85 [facility] Comment on above: Order Comment: Speci men Type: VENOUS BLOOD SPECIMENOrdering Facility: [facility] Address: [address] [place] [address] Performed By: #### 2 4344-4 ####[facility] LABCLIA [id number] [place] [address] [place] pH (BldV) 7.39 [pH] Normal 7.32-7.42 [facility] Comment on above: Order Comment: Speci men Type: VENOUS BLOOD SPECIMENOrdering Facility: [facility] Address: [address] [place] [address] Performed By: #### 2 4344-4 ####[facility] LABIA [id number] [address] [place] pH adjusted to patient's actual temperature (BldV) 7.40 Normal 7.32-7.42 [facility] Comment on above: Order Comment: Speci men Type: VENOUS BLOOD SPECIMENOrdering Facility: [facility] Address: [address] [place], [place] [address] Performed By: #### 2 4344-4 ####[facility] LABIA [id number] [place] [address] [place] Potassium [Moles/Vol] 2.9 mmol/L Low 3.5-5.0 [facility] Comment on above: Order Comment: Speci men Type: VENOUS BLOOD SPECIMENOrdering Facility: [facility] Address: [address] [place], [place] [address] Performed By: #### 2 4344-4 ####[facility] LABIA [id number] [place] [address] [place] Sodium [Moles/Vol] 137 mmol/L Normal 136-144 [facility] Comment on above: Order Comment: Speci men Type: VENOUS BLOOD SPECIMENOrdering Facility: [facility] [facility] Address: [address] [place] [address] Performed By: #### 2 4344-4 ####[facility] LABCLROXANA [id number] [place] [id number] [place] OPERATIVE NOon 05-17-2022 OPERATIVE NO HNO ID: [id number] Author: Tristin Wilcox MD, PhD Service: Colorectal Author Type: Physician Type: Operative Report Filed: 05/31/2022 2:52 PM Note Text: OPERATIVE REPORT LOG ID: [id number] SURGERY DATE: 05/17/2022 INCISION/PROCEDURE START TIME: 10:17 AM INCISION CLOSE/PROCEDURE END TIME: 11:27 AM PREOPERATIVE DIAGNOSIS: Prolapsing, symptomatic, large internal and external hemorrhoids. Colonic polyps. POSTOPERATIVE DIAGNOSIS: Grade 4; Prolapsing, symptomatic, large internal and external hemorrhoids. Colonic polyps. Surgeon(s)/Proceduralist(s) and Supervisor Belt And Link Assembly(s): Surgeon(s) and Role: * Tristin Wilcox MD, [...] with assistance. PATIENT NAME: Ben Guadalupe Normal [facility] POTASSIUM BLDon 05-17-2022 Potassium [Moles/Vol] 3.0 mmol/L Low 3.7-5.1 [facility] Comment on above: Order Comment: Speci men Type: BLOOD SPECIMENOrdering Facility: [facility] Address: [address] [place] [address] Performed By: #### K 1 ####[facility] LABCLIA [id number] [address] SURGICAL PATHOLOGYon 022 CASE REPORT Normal [facility] Comment on above: Order Comment: Speci men Type: TISSUE SPECIMENOrdering Facility: [facility] Address: [address] [place] [address] Result Comment: Surg ica Pathology Report Case: [id number] Authorizing Provider: Tristin Wilcox, Collected: 05/17/2022 10:25 AM , PhD Ordering Location: Admitting Received: 05/17/2022 01:44 PM Pathologist: Daryn June MD Specimens: A) - COLON POLYP, RIGHT COLON POLYP B) - COLON POLYP, LEFT COLON POLYP C) - RECTAL POLYP D) - HEMORRHOID, left lateral E) - HEMORRHOID, right posterior Performed By: #### S ####[facility] LABCLIA [id number] [address] OF [facility] LABCLIA [id number] [address] [address] CLINICAL HISTORY Normal [facility] Comment on above: Order Comment: Speci men Type: TISSUE SPECIMENOrdering Facility: [facility] Address: [address] [place] [address] Result Comment: Pre- op diagnosis: Fourth degree hemorrhoids [K64.3] Performed By: #### S ####[facility] LABCLIA [id number] [address] LABCLIA [id number] [address] FINAL DIAGNOSIS Normal [facility] Comment on above: Order Comment: Speci men Type: TISSUE SPECIMENOrdering Facility: [facility] Address: [address] [place] [address] Result Comment: A. C olon, right, polyp, biopsy: - Tubular adenoma. B. Colon, left, polyp, biopsy: - Tubular adenoma. C. Rectum, polyp, biopsy: - Tubular adenoma. D. Anus, left lateral, hemorrhoid, excision: - Fibroepithelial polyp. E. Anus, right posterior, hemorrhoid, excision: - Dilated hemorrhoidal varices. Performed By: #### S ####[facility] LABCLIA [id number] [address] LABCLIA [id number] [address] FINAL PERFORMING LAB Normal [facility] Comment on above: Order Comment: Speci men Type: TISSUE SPECIMENOrdering Facility: [facility] Address: [address] [place] [address] Result Comment: Diag nostic interpretation performed at [facility], [address] [place] [address] CLIA# [id number] Insurance Attorney: gNa Schultz M.D. Performed By: #### S ####[facility] LABCLIA [id number] [address] STATES OF AMERICAM[facility] LABCLIA [id number] RICHLAND CENTERDESK [id number] GROSS DESCRIPTION A. COLON POLYP Normal [facility] Comment on above: Order Comment: Speci men Type: TISSUE SPECIMENOrdering Facility: [facility] Address: [address] [place] [address] Result Comment: Rece ived in formalin is [...] 0.1 cm. Totally submitted in one cassette. [facility] May 17, 2022 3:41 PM Gross examination performed at [facility], [address] [place] [address] D. HEMORRHOID Received fresh designated left lateral is a cason-busby portion of skin that measures 4.5 x 1.5 x 1 cm. Sectioning through the specimen reveals hemorrhagic cut surfaces. Mission Analyst sections are submitted in 1 cassette. WE May 17, 2022 3:17 PM Gross examination performed at [facility], [address] [place] [address] E. HEMORRHOID Received fresh designated right posterior is a pink-cason portion of skin that measures 3.9 x 0.6 x 0.6 cm. Sectioning through the specimen reveals hemorrhagic cut surfaces. Mission Analyst sections are submitted in 1 cassette. WE May 17, 2022 3:19 PM Gross examination performed at [facility], [address] [place] [address] Performed By: #### S ####[facility] LABCLIA [id number] [place] [address] [place] [facility] LABCLIA [id number] [address] AV[address] [place] Oralia 05-16-2022 JADEN Telephone (KADIE) BEN GUADALUPE ([id number]) 1935 M Date Time Provider Department 05/16/22 [...] Encounter Status:Closed by DELICIA FULLER on 05/16/22 [facility] BEN GUADALUPE ([id number]) 1935 M Date Time Provider Department 05/16/22 [...] reaction(s): vomiting Date Reviewed: 05/10/2022 Reviewed by: fAia Downing PA-C - Fully Assessed Reason for Visit: [employer] - Other [3602] Prescriptions as of 05/16/2022 [...] by MARIA LUISA GARCIA on 05/16/22 Normal [facility] CBC panel Auto (Bld)on 05-10 Erythrocyte distribution width (RBC) [Ratio] 14.1 % Normal 11.5-15.0 [facility] Comment on above: Order Comment: Mayito borden Type: BLOOD SPECIMENOrdering Facility: [facility] Address: [address] [place] [address] Performed By: #### 5 8410-2 ####[facility] LABIA [id number] [address] [place] Hematocrit (Bld) [Volume fraction] 38.9 % Low 39.0-51.0 [facility] Comment on above: Order Comment: Mayito borden Type: BLOOD SPECIMENOrdering Facility: [facility] Address: [address] [place] [address] Performed By: #### 5 8410-2 ####[facility] LABCLIA [id number] [place] [address] [place] Hemoglobin (Bld) [Mass/Vol] 12.2 g/dL Low 13.0-17.0 [facility] Comment on above: Order Comment: Theoi suha Type: BLOOD SPECIMENOrdering Facility: [facility] Address: [address] [place] [address] Performed By: #### 5 8410-2 ####[facility] LABCLIA [id number] [place] [address] [place] MCH (RBC) [Entitic mass] 28.4 pg Normal 26.0-34.0 [facility] Comment on above: Order Comment: Speci men Type: BLOOD SPECIMENOrdering Facility: [facility] Address: [address] Performed By: #### 5 8410-2 ####[facility] LABIA [id number] [place] [address] [place] MCHC (RBC) [Mass/Vol] 31.4 g/dL Normal 30.5-36.0 [facility] Comment on above: Order Comment: Speci men Type: BLOOD SPECIMENOrdering Facility: [facility] Address: [address] [place], [place] [address] Performed By: #### 5 8410-2 ####[facility] LABIA [id number] [place] [address] [place] MCV (RBC) [Entitic vol] 90.5 fL Normal 80.0-100.0 [facility] Comment on above: Order Comment: Speci men Type: BLOOD SPECIMENOrdering Facility: [facility] Address: [address] [place], [place] [address] Performed By: #### 5 8410-2 ####[facility] LABIA [id number] [place] [address] [place] Nucleated RBC (Bld) [#/Vol] 10*3/uL Normal <0.01 [facility] Comment on above: Order Comment: Speci men Type: BLOOD SPECIMENOrdering Facility: [facility] Address: [address] Performed By: #### 5 8410-2 ####[facility] LABIA [id number] [place] [address] [place] Platelet mean volume (Bld) [Entitic vol] 10.9 fL Normal 9.0-12.7 [facility] Comment on above: Order Comment: Speci men Type: BLOOD SPECIMENOrdering Facility: [facility] Address: [address] [place] [address] Performed By: #### 5 8410-2 ####[facility] LABCLIA [id number] [place] [address] [place] Platelets (Bld) [#/Vol] 135 10*3/uL Low 150-400 [facility] Comment on above: Order Comment: Speci men Type: BLOOD SPECIMENOrdering Facility: [facility] Address: [address] Performed By: #### 5 8410-2 ####[facility] LABCLIA [id number] [address] OF [facility] RBC (Bld) [#/Vol] 4.30 10*6/uL Normal 4.20-6.00 [facility] Comment on above: Order Comment: Speci men Type: BLOOD SPECIMENOrdering Facility: [facility] Address: [address] [place], [place] [address] Performed By: #### 5 8410-2 ####[facility] LABIA [id number] [address] OF [facility] WBC (Bld) [#/Vol] 4.75 10*3/uL Normal 3.70-11.00 [facility] Comment on above: Order Comment: Speci men Type: BLOOD SPECIMENOrdering Facility: [facility] Address: [address] [place], [place] [address] Performed By: #### 5 8410-2 ####[facility] LABCLIA [id number] [address] [place] CONFIRM BLOOD TYPEon 022 ABO A Normal [facility] Comment on above: Order Comment: Speci men Type: BLOOD SPECIMENOrdering Facility: [facility] Address: [address] [place] [address] Performed By: #### C ONABO ####[facility] BLOOD BANKCLIA [id number] [place] [address] [place] Rh Nom (Bld) Negative Normal [facility] Comment on above: Order Comment: Speci men Type: BLOOD SPECIMENOrdering Facility: [facility] Address: [address] [place] [address] Performed By: #### C ONAB ####[facility] BANKIA [id number] [place] [address] [place] Comprehensive metabolic 2000 panelon 05-10-2022 Albumin [Mass/Vol] 4.4 g/dL Normal 3.9-4.9 [facility] Comment on above: Order Comment: Speci men Type: BLOOD SPECIMENOrdering Facility: [facility] Address: [address] [place] [address] Performed By: #### 2 4323-8 ####[facility] LABCLIA [id number] [place] [address] [place] ALP [Catalytic activity/Vol] 54 U/L Normal 38-113 [facility] Comment on above: Order Comment: Speci men Type: BLOOD SPECIMENOrdering Facility: [facility] Address: [address] [place] [address] Performed By: #### 2 4323-8 ####[facility] LABCLIA [id number] [place] [address] [place] ALT [Catalytic activity/Vol] 55 U/L High 10-54 [facility] Comment on above: Order Comment: Speci men Type: BLOOD SPECIMENOrdering Facility: [facility] Address: [address] [place], [place] [address] Performed By: #### 2 4323-8 ####[facility] LABCLIA [id number] [place] [address] [place] Anion gap [Moles/Vol] 12 mmol/L Normal 9-18 [facility] Comment on above: Order Comment: Speci men Type: BLOOD SPECIMENOrdering Facility: [facility] Address: [address] Performed By: #### 2 4323-8 ####[facility] LABCLIA [id number] [place] [address] [place] AST [Catalytic activity/Vol] 27 U/L Normal 14-40 [facility] Comment on above: Order Comment: Speci men Type: BLOOD SPECIMENOrdering Facility: [facility] Address: [address] Performed By: #### 2 4323-8 ####[facility] LABCLIA [id number] [place] [address] [place] Bilirubin [Mass/Vol] 0.3 mg/dL Normal 0.2-1.3 [facility] Comment on above: Order Comment: Speci men Type: BLOOD SPECIMENOrdering Facility: [facility] Address: [address] Performed By: #### 2 4323-8 ####[facility] LABIA [id number] [place] [address] [place] Calcium [Mass/Vol] 9.1 mg/dL Normal 8.5-10.2 [facility] Comment on above: Order Comment: Speci men Type: BLOOD SPECIMENOrdering Facility: [facility] Address: [address] Performed By: #### 2 4323-8 ####[facility] LABCLIA [id number] [place] [address] [place] Chloride [Moles/Vol] 100 mmol/L Normal 97-105 [facility] Comment on above: Order Comment: Speci men Type: BLOOD SPECIMENOrdering Facility: [facility] Address: [address] Performed By: #### 2 4323-8 ####[facility] LABCLIA [id number] [place] [address] [place] CO2 [Moles/Vol] 29 mmol/L Normal 22-30 [facility] Comment on above: Order Comment: Speci men Type: BLOOD SPECIMENOrdering Facility: [facility] Address: [address] [place] [address] Performed By: #### 2 4323-8 ####[facility] LABCLIA [id number] [place] [address] [place] Creatinine [Mass/Vol] 1.09 mg/dL Normal 0.73-1.22 [facility] Comment on above: Order Comment: Speci men Type: BLOOD SPECIMENOrdering Facility: [facility] Address: [address] [place] [address] Performed By: #### 2 4323-8 ####[facility] LABIA [id number] [address] [place] ESTIMATED GLOMERULAR FILTRATION RATE 67 mL/min/1.73m??? Normal >=60 [facility] Comment on above: Order Comment: Speci men Type: BLOOD SPECIMENOrdering Facility: [facility] Address: [address] [place] [address] Result Comment: [place] mated Glomerular Filtration Rate [...] actual GFR. Performed By: #### 2 4323-8 ####[facility] LABCLIA [id number] [place] [address] [place] Glucose [Mass/Vol] 217 mg/dL High 74-99 [facility] Comment on above: Order Comment: Speci men Type: BLOOD SPECIMENOrdering Facility: [facility] Address: [address] [place] [address] Result Comment: The [place] Diabetes Association (ADA) provides guidance for cutoff [...] Standards of Medical Care in Diabetes 2016, Irish Diabetes Association. Diabetes Care. 2016.39(Suppl 1). Performed By: #### 2 4323-8 ####[facility] LABNORTHEAST[facility] [id number] [place] [address] [place] Potassium [Moles/Vol] 3.2 mmol/L Low 3.7-5.1 [facility] Comment on above: Order Comment: Speci men Type: BLOOD SPECIMENOrdering Facility: [facility] Address: [address] Performed By: #### 2 4323-8 ####[facility] [id number] [place] [address] [place] Protein [Mass/Vol] 6.4 g/dL Normal 6.3-8.0 [facility] Comment on above: Order Comment: Speci men Type: BLOOD SPECIMENOrdering Facility: [facility] Address: [address] [place] [address] Performed By: #### 2 4323-8 ####[facility] LABIA [id number] [place] [address] [place] Sodium [Moles/Vol] 141 mmol/L Normal 136-144 [facility] Comment on above: Order Comment: Speci men Type: BLOOD SPECIMENOrdering Facility: [facility] Address: [address] [place] [address] Performed By: #### 2 4323-8 ####[facility] LABCLIA [id number] [place] [id number] [place] Urea nitrogen [Mass/Vol] 26 mg/dL High 9-24 [facility] Comment on above: Order Comment: Speci men Type: BLOOD SPECIMENOrdering Facility: [facility] Address: [address] [place] [address] Performed By: #### 2 4323-8 ####[facility] [id number] [place] [address] [place] ECG COMPLETEon 05-10-2022 ECG COMPLETE Ventricular Rate : 7 6 BPM Atrial Rate : 76 BPM P-R Interval : 130 ms QRS Duration : 134 ms Q-T Interval : 442 ms QTC Calculation(Bazett) : 497 ms Calculated P [place] : 37 degrees Calculated R [place] : 64 degrees Calculated T [place] : -10 degrees NORMAL SINUS RHYTHM COMPLETE RIGHT BUNDLE BRANCH BLOCK INFERIOR T WAVE ABNORMALITY ABNORMAL ECG Confirmed by YENNI TANNER MD ([id number]) on 05/14/2022 7:11:13 PM NAME : BEN GUADALUPE PID : [id number] : 1935 Gender : Male Race : ORD : [id number] Procedure Date : May 10 2022 11:57:54 Edit Date : May 14 2022 19:11:14 Diagnosis: NORMAL SINUS RHYTHM COMPLETE RIGHT BUNDLE BRANCH BLOCK INFERIOR T WAVE ABNORMALITY ABNORMAL ECG Confirmed by YENNI TANNER MD ([id number]) on 05/14/2022 7:11:13 PM Test Reason : Location : 119 : A17 Overread By : YENNI TANNER MD Edited By : YENNI TANNER MD Referred By : TRISTIN WILCOX Acquired by : CHANELLE FRANKLIN [facility] HISTORY PHYSICALon HISTORY PHYSICAL HNO ID: [id number] Author: Afia Downing PA-C Service: ? Author Type: Physician Supervisor Belt And Link Assembly Type: HANDP Filed: 05/13/2022 10:05 AM Note [...] capsule Take (more content not included)... Normal [facility] HbA1c (Bld)on 05-10-2022 Average glucose Estimated from glycated hemoglobin (Bld) [Mass/Vol] 151 mg/dL Normal [facility] Comment on above: Order Comment: Speci men Type: BLOOD SPECIMENOrdering Facility: [facility] Address: [address] [place] [address] Result Comment: eAG: (Estimated average glucose) is a calculated value from HgbA1c and is senior human resources representative of the average blood glucose level in the last 2-3 month period. Performed By: #### 5 5454-3 ####[facility] LABCLIA [id number] [address] OF [facility] HbA1c (Bld) [Mass fraction] 6.9 % High 4.3-5.6 [facility] Comment on above: Order Comment: Speci men Type: BLOOD SPECIMENOrdering Facility: [facility] Address: [address] [place] [address] Result Comment: Amer ican Diabetes Association guidelines indicate that patients with HgbA1c in the range 5.7-6.4% are at increased risk for development of diabetes, and intervention by lifestyle modification may be beneficial. HgbA1c greater or equal to 6.5% is considered diagnostic of diabetes. Performed By: #### 5 5454-3 ####[facility] LABCLIA [id number] [address] TYPE AND SCREEN,30 DAYon ABO A Normal [facility] Comment on above: Order Comment: Speci men Type: BLOOD SPECIMENOrdering Facility: [facility] Address: [address] [place] [address] Performed By: #### T SCR30 ####[facility] BLOOD BANKCLIA [id number] [address] HISTORICAL AB SCR STATUS Negative Normal [facility] Comment on above: Order Comment: Speci men Type: BLOOD SPECIMENOrdering Facility: [facility] Address: [address] [place] [address] Performed By: #### T SCR30 ####[facility] BLOOD BANKCLIA [id number] [address] [place] Rh Nom (Bld) Negative Normal [facility] Comment on above: Order Comment: Speci men Type: BLOOD SPECIMENOrdering Facility: [facility] Address: [address] [place] [address] Performed By: #### T SCR30 ####CC [facility] BLOOD BANKCLIA [id number] GOLDIE MADISONDESK [id number] [place] CNPMalorie 04-25-2022 CNPN Telephone (CORSMN) BEN GUADALUPE ([id number]) 1935 M Date Time Provider Department 04/25/22 MARIKA ZUÑIGA During your visit today, we recorded the following information about you: Marika Zuñiga RN 04/25/2022 2:11 PM Signed SPECIALTY CARE COORDINATION FOLLOW-UP NOTE Call back placed to pt [facility]. Agree to 05/17/22 sx date 05/10/22 pre-op [...] Reason for Visit: Returning Patient's Call [408] [employer] - Other [3602] Patient Update [3994] Prescriptions as of 04/25/2022 - furosemide (LASIX) [...] Encounter Status:Closed by MARIKA ZUÑIGA on 04/25/22 [facility]TweetMySong.comN[facility] BEN GUADALUPE ([id number]) 1935 M Date Time Provider Department 04/25/22 TRISTIN RUIZ During your visit today, we recorded the following information about you: Delicia Fuller 04/25/2022 10:03 AM Signed The Patient's granddaughter ( Milly Guadalupe) is calling to confirm surgery date, get all testing scheduled for her grandfather. 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 Normal [facility] Flexible Sigmoidoscopyon Flexible sigmoidoscopy A30 Gastrointestinal Endoscopy Patient Name: Ben Guadalupe Procedure Date: 04/17/2022 1:38 PM Date of : 1935 Admit Type: Outpatient Age: 86 Gender: Male Note Status: Finalized Attending MD: Trsitin Wilcox MD Procedure: Flexible Sigmoidoscopy Indications: Hematochezia [...] previous diet. Procedure Code(s): --- Professional --- 68420, Sigmoidoscopy, flexible; diagnostic, including collection of specimen(s) by brushing or washing, when performed (separate procedure) Diagnosis Code(s): --- Professional --- K64.3, Fourth degree hemorrhoids K62.1, Rectal polyp K92.1, Melena (includes Hematochezia) K57.30, Diverticulosis of large intestine without perforation or abscess without bleeding CPT copyright 2019 [employer] Medical [employer]. All rights reserved. The codes documented in this report are preliminary and upon mental health assistant review may be revised to meet current compliance requirements. Attending Participation: I personally performed the entire procedure. Scope In: Scope Out: Dr. Tristin Wilcox MD 04/17/2022 2:21:53 PM This report has been signed electronically. Number of Addenda: 0 Note Initiated On: 04/17/2022 1:38 PM Normal [facility] HISTORY PHYSICALon HISTORY PHYSICAL HNO ID: [id number] Author: Tristin Wilcox MD, PhD Service: ? [...] PACC s (more content not included)... Normal [facility] SIGMOIDOSCOPYon 04-17-2022 [facility] POINT OF CARE GLUCOSEon 04-06 Glucose [Mass/Vol] 268 mg/dL Critically high 74-106 [facility] Comment on above: Performed By: #### P OCGLUC #### [facility] [address] [address] [address] Mason Astudillo CBC AUTO DIFFon 04-11-2022 BASO # 0.0 103/ul Normal 0.0-0.[address] [facility] Comment on above: Performed By: #### U A #### [facility] [address] [address] [address] Mason Astudillo Basophils/100 WBC (Bld) 0.4 % Normal 0.2-2.[address] [facility] Comment on above: Performed By: #### U A #### [facility] [address] [place] [address] Dr. Mason Astudillo EO # 0.1 103/ul Normal 0.0-0.[address] [facility] Comment on above: Performed By: #### U A #### [facility] [address] [place] [address] Dr. Mason Astudillo Eosinophils/100 WBC (Bld) 1.9 % Normal 0.9-7.[address] [facility] Comment on above: Performed By: #### U A #### [facility] [address] [place] [address] Dr. Mason Astudillo Erythrocyte distribution width (RBC) [Ratio] 16.0 % Critically high 11.0-15.[address] [facility] Comment on above: Performed By: #### U A #### [facility] [address] [place] [address] Dr. Mason Astudillo Hematocrit (Bld) [Volume fraction] 27.4 % Critically low 42.0-54.[address] [facility] Comment on above: Performed By: #### U A #### [facility] [address] [place] [address] Dr. Mason Astudillo Hemoglobin (Bld) [Mass/Vol] 8.7 g/dL Critically low 14.0-18.[address] [facility] Comment on above: Performed By: #### U A #### [facility] [address] [place] [address] Dr. Mason Astudillo IG # 0.03 10e3/ul Normal 0.00-0.[address] [facility] Comment on above: Performed By: #### U A #### [facility] [address] [place] [address] Dr. Mason Astudillo IG % 0.6 % Critically high 0.0-0.[address] [facility] Comment on above: Performed By: #### U A #### [facility] [address] [place] [address] Dr. Mason Astudillo LYMPH # 0.7 103/ul Critically low 1.2-3.[address] [facility] Comment on above: Performed By: #### U A #### [facility] [address] [place] [address] Dr. Mason Astudillo Lymphocytes/100 WBC (Bld) 15.8 % Critically low 20.5-60.[address] [facility] Comment on above: Performed By: #### U A #### [facility] [address] [place] [address] Dr. Mason Astudillo MANUAL DIFF REQ NO Normal [facility] Comment on above: Performed By: #### U A #### [facility] [address] [place] [address] Dr. Mason Astudillo MCH (RBC) [Entitic mass] 29.9 pg Normal 25.9-34.[address] [facility] Comment on above: Performed By: #### U A #### [facility] [address] [place] [address] Dr. Mason Astudillo MCHC (RBC) [Mass/Vol] 31.8 g/dL Normal 29.9-35.[address] [facility] Comment on above: Performed By: #### U A #### [facility] [address] [place] [address] Dr. Mason Astudillo MCV (RBC) [Entitic vol] 94.2 fL Critically high 80.0-94.[address] [facility] Comment on above: Performed By: #### U A #### [facility] [address] [place] [address] Dr. Mason Astudillo MONO # 0.3 103/ul Normal 0.3-0.[address] [facility] Comment on above: Performed By: #### U A #### [facility] [address] [place] [address] Dr. Mason Astudillo Monocytes/100 WBC (Bld) 6.9 % Normal 1.7-12.0 [facility] Comment on above: Performed By: #### U A #### [facility] [address] [place] [address] Dr. Mason Astudillo NEUT # 3.4 103/ul Normal 1.4-6.5 [facility] Comment on above: Performed By: #### U A #### [facility] [address] [address] [address] Mason Astudillo Neutrophils/100 WBC (Bld) 74.4 % Normal 43.0-75.[address] [facility] Comment on above: Performed By: #### U A #### [facility] [address] [address] [address] Mason Astudillo Platelet mean volume (Bld) [Entitic vol] 10.6 fL Normal 9.5-13.[address] [facility] Comment on above: Performed By: #### U A #### [facility] [address] [address] [address] Mason Astudillo PLT 117 103/ul Critically low 150-[address] [facility] Comment on above: Performed By: #### U A #### [facility] [address] [place] [address] Dr. Mason Astudillo RBC 2.91 106/ul Critically low 4.70-6.[address] [facility] Comment on above: Performed By: #### U A #### [facility] [id number] Mason Astudillo WBC 4.6 103/ul Normal 4.0-11.[address] [facility] Comment on above: Performed By: #### U A #### [facility] [address] [place] [address] Dr. Mason Astudillo CARDIAC STRESS TESTon 2021 [...] be dictated separately by Radiology. Normal [facility] NM STRESS/REST MULTIon 03-26 NM STRESS/REST MULTI Patient: ANDREI GUADALUPE Exam Date: 03/26/2022 : 1935 Gender:M Ordering : DR KAVITA DANIELLE M.D. Admission #: [id number] Family : Order #: [id number] CLICK HERE TO VIEW EXAM RADIOLOGY REPORT [...] MD on 03/27/2022 at 08:14 Normal [facility] CBC AUTO DIFFon 03-18-2022 BASO # 0.0 103/ul Normal 0.0-0.[address] [facility] Comment on above: Performed By: #### P OCGLUC #### [facility] [address] [address] [address] Mason Astudillo Basophils/100 WBC (Bld) 0.5 % Normal 0.2-2.[address] [facility] Comment on above: Performed By: #### P OCGLUC #### [facility] [address] [place] [address] Dr. Mason Astudillo EO # 0.1 103/ul Normal 0.0-0.[address] [facility] Comment on above: Performed By: #### P OCGLUC #### [facility] [address] [place] [address] Dr. Mason Astudillo Eosinophils/100 WBC (Bld) 2.3 % Normal 0.9-7.[address] [facility] Comment on above: Performed By: #### P OCGLUC #### [facility] [address] [place] [address] Dr. Mason Astudillo Erythrocyte distribution width (RBC) [Ratio] 17.2 % Critically high 11.0-15.[address] [facility] Comment on above: Performed By: #### P OCGLUC #### [facility] [address] [place] [address] Dr. Mason Astudillo Hematocrit (Bld) [Volume fraction] 43.9 % Normal 42.0-54.[address] [facility] Comment on above: Performed By: #### P OCGLUC #### [facility] [address] [place] [address] Dr. Mason Astudillo Hemoglobin (Bld) [Mass/Vol] 14.1 g/dL Normal 14.0-18.[address] [facility] Comment on above: Performed By: #### P OCGLUC #### [facility] [address] [place] [address] Dr. Mason Astudillo IG # 0.04 10e3/ul Critically high 0.00-0.[address] [facility] Comment on above: Performed By: #### P OCGLUC #### [facility] [address] [place] [address] Dr. Mason Astudillo IG % 0.7 % Critically high 0.0-0.[address] [facility] Comment on above: Performed By: #### P OCGLUC #### [facility] [address] [place] [address] Dr. Mason Astudillo LYMPH # 1.1 103/ul Critically low 1.2-3.[address] [facility] Comment on above: Performed By: #### P OCGLUC #### [facility] [address] [place] [address] Dr. Mason Astudillo Lymphocytes/100 WBC (Bld) 18.3 % Critically low 20.5-60.[address] [facility] Comment on above: Performed By: #### P OCGLUC #### [facility] [address] [place] [address] Dr. Mason Astudillo MANUAL DIFF REQ NO Normal [facility] Comment on above: Performed By: #### P OCGLUC #### [facility] [address] [place] [address] Dr. Mason Astudillo MCH (RBC) [Entitic mass] 29.3 pg Normal 25.9-34.[address] [facility] Comment on above: Performed By: #### P OCGLUC #### [facility] [address] [place] [address] Dr. Mason Astudillo MCHC (RBC) [Mass/Vol] 32.1 g/dL Normal 29.9-35.[address] [facility] Comment on above: Performed By: #### P OCGLUC #### [facility] [address] [place] [address] Dr. Mason Astudillo MCV (RBC) [Entitic vol] 91.1 fL Normal 80.0-94.[address] [facility] Comment on above: Performed By: #### P OCGLUC #### [facility] [address] [place] [address] Dr. Mason Astudillo MONO # 0.5 103/ul Normal 0.3-0.8 [facility] Comment on above: Performed By: #### P OCGLUC #### [facility] [address] [place] [address] Dr. Mason Astudillo Monocytes/100 WBC (Bld) 7.7 % Normal 1.7-12.[address] [facility] Comment on above: Performed By: #### P OCGLUC #### [facility] [address] [place] [address] Dr. Mason Astudillo NEUT # 4.3 103/ul Normal 1.4-6.5 [facility] Comment on above: Performed By: #### P OCGLUC #### [facility] [address] [address] [address] Mason Astudillo Neutrophils/100 WBC (Bld) 70.5 % Normal 43.0-75.[address] [facility] Comment on above: Performed By: #### P OCGLUC #### [facility] [address] [address] [address] Mason Astudillo Platelet mean volume (Bld) [Entitic vol] 9.9 fL Normal 9.5-13.[address] [facility] Comment on above: Performed By: #### P OCGLUC #### [facility] [address] [address] [address] Mason Astudillo PLT 130 103/ul Critically low 150-[address] [facility] Comment on above: Performed By: #### P OCGLUC #### [facility] [address] [place] [address] Dr. Mason Astudillo RBC 4.82 106/ul Normal 4.70-6.[address] [facility] Comment on above: Performed By: #### P OCGLUC #### [facility] [address] [place] [address] Dr. Mason Astudillo WBC 6.1 103/ul Normal 4.0-11.[address] [facility] Comment on above: Performed By: #### P OCGLUC #### [facility] [address] [place] [address] Dr. Mason Astudillo PROF CHEM 8 (BAS METB)on Anion gap [Moles/Vol] 10.8 mmol/L Normal [facility] Comment on above: Performed By: #### U A #### [facility] [address] [place] [address] Dr. Mason Astudillo Calcium [Mass/Vol] 8.8 mg/dL Normal 8.5-10.[address] [facility] Comment on above: Performed By: #### U A #### [facility] [address] [place] [address] Dr. Mason Astudillo Chloride [Moles/Vol] 103 mmol/L Normal 98-[address] [facility] Comment on above: Performed By: #### U A #### [facility] [address] [address] [address] Mason Astudillo CO2 [Moles/Vol] 29.9 mmol/L Normal 21.0-32.[address] [facility] Comment on above: Performed By: #### U A #### [facility] [address] [address] [address] Mason Astudillo Creatinine [Mass/Vol] 1.20 mg/dL Normal 0.70-1.[address] [facility] Comment on above: Performed By: #### U A #### [facility] [address] [address] [address] Mason Astudillo EGFR-AF DANISH >60 Normal >=[address] [facility] Comment on above: Performed By: #### U A #### [facility] [address] [place] [address] Dr. Mason Astudillo EGFR-NON AF DANISH 58 mL/min/1.73m2 Critically low >=[address] [facility] Comment on above: Performed By: #### U A #### [facility] [address] [place] [address] Dr. Mason Astudillo Glucose [Mass/Vol] 202 mg/dL Critically high 74-106 [facility] Comment on above: Performed By: #### U A #### [facility] [address] [place] [address] Dr. Mason Astudillo Potassium [Moles/Vol] 3.7 mmol/L Normal 3.5-5.[address] [facility] Comment on above: Performed By: #### U A #### [facility] [address] [address] [address] Mason Astudillo Sodium [Moles/Vol] 140 mmol/L Normal 136-[address] [facility] Comment on above: Performed By: #### U A #### [facility] [address] [address] [address] Mason Astudillo Urea nitrogen [Mass/Vol] 22.0 mg/dL Critically high 7.0-18.[address] [facility] Comment on above: Performed By: #### U A #### [facility] [address] [address] [address] Mason Astudillo Urea nitrogen/Creatinine [Mass ratio] 18.3 mg/mg Normal [facility] Comment on above: Performed By: #### U A #### [facility] [address] [address] [address] Mason Astudillo XR KUB 1 VIEWon [...] BRISA SALAS Date: 2022-02-18 15:45 Normal [facility] VIT D 25-OH LABCORPon 2021 Vitamin D, 25-Hydroxy 27.3 ng/mL Critically low 30.0-100.0 [facility] Comment on above: Result Comment: Masha min D deficiency has been defined by the [place] [employer] and an Endocrine Society practice guideline as a level of serum 25-OH vitamin D less than 20 ng/mL (1,2). The Endocrine Society went on to further define vitamin D insufficiency as a level between 21 and 29 ng/mL (2). 1. IOM ([place] [employer]). 2010. Dietary reference intakes for calcium and D. [place]: The National Academies Press. 2. Hemalatha MF, [place], Kamla ROUSE, et al. Evaluation, treatment, and prevention of vitamin D deficiency: an Endocrine Society clinical practice guideline. JCEM. 2010; 96(7):1911-30. Performed By: #### A 1C #### [facility] [address] [address] [address] Mason Astudillo CBC AUTO DIFFon 02-06-2022 BASO # 0.0 103/ul Normal 0.0-0.1 [facility] Comment on above: Performed By: #### A 1C #### [facility] [address] [place] [address] Dr. Mason Astudillo Basophils/100 WBC (Bld) 0.4 % Normal 0.2-2.[address] [facility] Comment on above: Performed By: #### A 1C #### [facility] [address] [place] [address] Dr. Mason Astudillo EO # 0.1 103/ul Normal 0.0-0.7 [facility] Comment on above: Performed By: #### A 1C #### [facility] [address] [place] [address] Dr. Mason Astudillo Eosinophils/100 WBC (Bld) 2.5 % Normal 0.9-7.[address] [facility] Comment on above: Performed By: #### A 1C #### [facility] [address] [place] [address] Dr. Mason Astudillo Erythrocyte distribution width (RBC) [Ratio] 16.6 % Critically high 11.0-15.[address] [facility] Comment on above: Performed By: #### A 1C #### [facility] [address] [place] [address] Dr. Mason Astudillo Hematocrit (Bld) [Volume fraction] 26.8 % Critically low 42.0-54.[address] [facility] Comment on above: Performed By: #### A 1C #### [facility] [address] [place] [address] Dr. Mason Astudillo Hemoglobin (Bld) [Mass/Vol] 8.4 g/dL Critically low 14.0-18.[address] [facility] Comment on above: Performed By: #### A 1C #### [facility] [address] [place] [address] Dr. Mason Astudillo IG # 0.12 10e3/ul Critically high 0.00-0.[address] [facility] Comment on above: Performed By: #### A 1C #### [facility] [address] [place] [address] Dr. Mason Astudillo IG % 2.5 % Critically high 0.0-0.[address] [facility] Comment on above: Performed By: #### A 1C #### [facility] [address] [place] [address] Dr. Mason Astudillo LYMPH # 0.9 103/ul Critically low 1.2-3.8 [facility] Comment on above: Performed By: #### A 1C #### [facility] [address] [place] [address] Dr. Mason Astudillo Lymphocytes/100 WBC (Bld) 18.1 % Critically low 20.5-60.[address] [facility] Comment on above: Performed By: #### A 1C #### [facility] [address] [place] [address] Dr. Mason Astudillo MANUAL DIFF REQ NO Normal [facility] Comment on above: Performed By: #### A 1C #### [facility] [address] [place] [address] Dr. Mason Astudillo MCH (RBC) [Entitic mass] 27.7 pg Normal 25.9-34.[address] [facility] Comment on above: Performed By: #### A 1C #### [facility] [address] [place] [address] Dr. Mason Astudillo MCHC (RBC) [Mass/Vol] 31.3 g/dL Normal 29.9-35.2 [facility] Comment on above: Performed By: #### A 1C #### [facility] [address] [place] [address] Dr. Mason Astudillo MCV (RBC) [Entitic vol] 88.4 fL Normal 80.0-94.0 [facility] Comment on above: Performed By: #### A 1C #### [facility] [address] [place] [address] Dr. Mason Astudillo MONO # 0.4 103/ul Normal 0.3-0.8 [facility] Comment on above: Performed By: #### A 1C #### [facility] [address] [place] [address] Dr. Mason Astudillo Monocytes/100 WBC (Bld) 9.1 % Normal 1.7-12.0 [facility] Comment on above: Performed By: #### A 1C #### [facility] [address] [address] [address] Mason Astudillo NEUT # 3.2 103/ul Normal 1.4-6.[address] [facility] Comment on above: Performed By: #### A 1C #### [facility] [address] [place] [address] Dr. Mason Astudillo Neutrophils/100 WBC (Bld) 67.4 % Normal 43.0-75.[address] [facility] Comment on above: Performed By: #### A 1C #### [facility] [address] [address] [address] Mason Astudillo Platelet mean volume (Bld) [Entitic vol] 10.2 fL Normal 9.5-13.5 [facility] Comment on above: Performed By: #### A 1C #### [facility] [address] [place] [address] Dr. Mason Astudilol PLT 135 103/ul Critically low 150-450 [facility] Comment on above: Performed By: #### A 1C #### [facility] [address] [place] [address] Dr. Mason Astudillo RBC 3.03 106/ul Critically low 4.70-6.10 [facility] Comment on above: Performed By: #### A 1C #### [facility] [address] [place] [address] Dr. Mason Astudillo WBC 4.7 103/ul Normal 4.0-11.[address] [facility] Comment on above: Performed By: #### A 1C #### [facility] [address] [place] [address] Dr. Mason Astudillo GLYCOHEMOGLOBIN A1Con 2021 ADA RECOMMENDATION SEE BELOW Normal [facility] Comment on above: Result Comment: ADA RECOMMENDED LIMIT 4.0 - 6.0 ADA THERAPEUTIC TARGET < 7.0 ACTION SUGGESTED > 7.0 Performed By: #### A 1C #### [facility] [address] [place] [address] Dr. Mason Astudillo Glucose [Mass/Vol] 148 mg/dL Normal [facility] Comment on above: Performed By: #### A 1C #### [facility] [address] [place] [address] Dr. Mason Astudillo HbA1c (Bld) [Mass fraction] 6.8 % Critically high 4.5-6.[address] [facility] Comment on above: Performed By: #### A 1C #### [facility] [address] [place] [address] Dr. Mason Astudillo POINT OF CARE GLUCOSEon 080 Glucose [Mass/Vol] 157 mg/dL Critically high 74-106 [facility] Comment on above: Performed By: #### P OCGLUC #### [facility] [address] [place] [address] Dr. Mason Astudillo PROF CHEM 8 (BAS METB)on Anion gap [Moles/Vol] 10.5 mmol/L Normal [facility] Comment on above: Performed By: #### B MP #### [facility] [address] [place] [address] Dr. Mason Astudillo Calcium [Mass/Vol] 8.0 mg/dL Critically low 8.5-10.1 [facility] Comment on above: Performed By: #### B MP #### [facility] [address] [place] [address] Dr. Mason Astudillo Chloride [Moles/Vol] 105 mmol/L Normal 98-[address] [facility] Comment on above: Performed By: #### B MP #### [facility] [address] [place] [address] Dr. Mason Astudillo CO2 [Moles/Vol] 27.2 mmol/L Normal 21.0-32.[address] [facility] Comment on above: Performed By: #### B MP #### [facility] [address] [place] [address] Dr. Mason Astudillo Creatinine [Mass/Vol] 1.11 mg/dL Normal 0.70-1.[address] [facility] Comment on above: Performed By: #### B MP #### [facility] [address] [place] [address] Dr. Mason Astudillo EGFR-AF DANISH >60 Normal >=[address] [facility] Comment on above: Performed By: #### B MP #### [facility] [address] [address] [address] Mason Astudillo EGFR-NON AF DANISH >60 Normal >=[address] [facility] Comment on above: Performed By: #### B MP #### [facility] [address] [address] [address] Mason Astudillo Glucose [Mass/Vol] 174 mg/dL Critically high 74-106 [facility] Comment on above: Performed By: #### B MP #### [facility] [address] [place] [address] Dr. Mason Astudillo Potassium [Moles/Vol] 3.7 mmol/L Normal 3.5-5.[address] [facility] Comment on above: Performed By: #### B MP #### [facility] [address] [place] [address] Dr. Mason Astudillo Sodium [Moles/Vol] 139 mmol/L Normal 136-[address] [facility] Comment on above: Performed By: #### B MP #### [facility] [address] [place] [address] Dr. Mason Astudillo Urea nitrogen [Mass/Vol] 19.0 mg/dL Critically high 7.0-18.[address] [facility] Comment on above: Performed By: #### B MP #### [facility] [address] [place] [address] Dr. Mason Astudillo Urea nitrogen/Creatinine [Mass ratio] 17.1 mg/mg Normal [facility] Comment on above: Performed By: #### B MP #### [facility] [address] [place] [address] Dr. Mason Astudillo CBC W MANUAL DIFFon 02-06-20 22 ATYPICAL LYMPH # Normal [facility] Comment on above: Performed By: #### C BC #### [facility] [address] [place] [address] Dr. Mason Astudillo ATYPICAL LYMPH % Normal [facility] Comment on above: Performed By: #### C BC #### [facility] [address] [place] [address] Dr. Mason Astudillo BAND # 0.0 103/ul Normal 0.0-0.[address] [facility] Comment on above: Performed By: #### C BC #### [facility] [address] [place] [address] Dr. Mason Astudillo BAND % 0 % Normal 0-[address] [facility] Comment on above: Performed By: #### C BC #### [facility] [address] [place] [address] Dr. Mason Astudillo BASOM # 0.06 103/ul Normal 0.00-0.[address] [facility] Comment on above: Performed By: #### C BC #### [facility] [address] [place] [address] Dr. Mason Astudillo BASOM % 1.0 % Normal 0.2-2.[address] [facility] Comment on above: Performed By: #### C BC #### [facility] [address] [place] [address] Dr. Mason Astudillo BLAST # Normal [facility] Comment on above: Performed By: #### C BC #### [facility] [address] [place] [address] Dr. Mason Astudillo BLAST % Normal [facility] Comment on above: Performed By: #### C BC #### [facility] [address] [place] [address] Dr. Mason Astudillo CORRECTED WBC Normal 4.0-11.[address] [facility] Comment on above: Performed By: #### C BC #### [facility] [address] [place] [address] Dr. Mason Astudillo EOS # 0.17 103/ul Normal 0.00-0.[address] [facility] Comment on above: Performed By: #### C BC #### [facility] [address] [place] [address] Dr. Mason Astudillo EOS% 3.0 % Normal 0.9-7.[address] [facility] Comment on above: Performed By: #### C BC #### [facility] [address] [place] [address] Dr. Mason Astudillo HCT 27.4 % Critically low 42.0-54.[address] [facility] Comment on above: Performed By: #### C BC #### [facility] [address] [address] [address] Mason Astudillo HGB 8.6 g/dl Critically low 14.0-18.[address] [facility] Comment on above: Performed By: #### C BC #### [facility] [address] [place] [address] Dr. Mason Astudillo LYMPHM # 0.56 103/ul Critically low 1.20-3.[address] [facility] Comment on above: Performed By: #### C BC #### [facility] [address] [place] [address] Dr. Mason Astudillo LYMPHM% 10.0 % Critically low 20.5-60.[address] [facility] Comment on above: Performed By: #### C BC #### [facility] [address] [place] [address] Dr. Mason Astudillo MCH 27.7 pg Normal 25.9-34.[address] [facility] Comment on above: Performed By: #### C BC #### [facility] [address] [place] [address] Dr. Mason Astudillo MCHC 31.4 g/dl Normal 29.9-35.[address] [facility] Comment on above: Performed By: #### C BC #### [facility] [address] [place] [address] Dr. Mason Astudillo MCV 88.1 fL Normal 80.0-94.[address] [facility] Comment on above: Performed By: #### C BC #### [facility] [address] [place] [address] Dr. Mason Astudillo METAMYELOCYTE # Normal [facility] Comment on above: Performed By: #### C BC #### [facility] [address] [place] [address] Dr. Mason Astudillo METAMYELOCYTE % Normal [facility] Comment on above: Performed By: #### C BC #### [facility] Laboratory [address] [place] [address] Dr. Mason Astudillo MONOM# 0.34 103/ul Normal 0.30-0.80 [facility] Comment on above: Performed By: #### C BC #### [facility] [address] [address] [address] Mason Astudillo MONOM% 6.0 % Normal 1.7-12.[address] [facility] Comment on above: Performed By: #### C BC #### [facility] [address] [place] [address] Dr. Mason Astudillo MPV 10.5 fL Normal 9.5-13.[address] [facility] Comment on above: Performed By: #### C BC #### [facility] [address] [place] [address] Dr. Mason Astudillo MYELOCYTE # Normal [facility] Comment on above: Performed By: #### C BC #### [facility] [address] [place] [address] Dr. Mason Astudillo MYELOCYTE % Normal [facility] Comment on above: Performed By: #### C BC #### [facility] [address] [place] [address] Dr. Mason Astudillo NRBC Normal [facility] Comment on above: Performed By: #### C BC #### [facility] [address] [place] [address] Dr. Mason Astudillo OVALOCYTES 1+ Normal [facility] Comment on above: Performed By: #### C BC #### [facility] [address] [place] [address] Dr. Mason Astudillo PLT 124 103/ul Critically low 150-[address] [facility] Comment on above: Performed By: #### C BC #### [facility] [address] [place] [address] Dr. Mason Astudillo RBC 3.11 106/ul Critically low 4.70-6.10 [facility] Comment on above: Performed By: #### C BC #### [facility] [address] [place] [address] Dr. Mason Astudillo RDW 15.9 % Critically high 11.0-15.[address] [facility] Comment on above: Performed By: #### C BC #### [facility] [address] [address] [address] Mason Astudillo SEG # 4.48 103/ul Normal 1.40-6.[address] [facility] Comment on above: Performed By: #### C BC #### [facility] [address] [place] [address] Dr. Mason Astudillo SEG % 80.0 % Critically high 43.0-75.[address] [facility] Comment on above: Performed By: #### C BC #### [facility] [address] [address] [address] Mason Astudillo WBC 5.6 103/ul Normal 4.0-11.[address] [facility] Comment on above: Performed By: #### C BC #### [facility] [address] [place] [address] Dr. Mason Astudillo POINT OF CARE GLUCOSEon Glucose [Mass/Vol] 260 mg/dL Critically high 74-106 [facility] Comment on above: Performed By: #### P OCGLUC #### [facility] [address] [place] [address] Dr. Mason Astudillo Glucose [Mass/Vol] 165 mg/dL Critically high 74-106 [facility] Comment on above: Performed By: #### A 1C #### [facility] [address] [place] [address] Dr. Mason Astudillo Glucose [Mass/Vol] 147 mg/dL Critically high -106 [facility] Comment on above: Performed By: #### C BC #### [facility] [address] [place] [address] Dr. Mason Astudillo PROF CHEM 8 (BAS METB)on Anion gap [Moles/Vol] 11.0 mmol/L Normal [facility] Comment on above: Performed By: #### U A #### [facility] [address] [place] [address] Dr. Mason Astudillo Calcium [Mass/Vol] 8.0 mg/dL Critically low 8.5-10.1 [facility] Comment on above: Performed By: #### U A #### [facility] [address] [address] [address] Mason Astudillo Chloride [Moles/Vol] 106 mmol/L Normal 98-107 [facility] Comment on above: Performed By: #### U A #### [facility] [address] [address] [address] Mason Astudillo CO2 [Moles/Vol] 26.7 mmol/L Normal 21.0-32.[address] [facility] Comment on above: Performed By: #### U A #### [facility] [address] [address] [address] Mason Astudillo Creatinine [Mass/Vol] 1.22 mg/dL Normal 0.70-1.[address] [facility] Comment on above: Performed By: #### U A #### [facility] [address] [place] [address] Dr. Mason Astudillo EGFR-AF DANISH >60 Normal >=60 [facility] Comment on above: Performed By: #### U A #### [facility] [address] [place] [address] Dr. Mason Astudillo EGFR-NON AF DANISH 56 mL/min/1.73m2 Critically low >=[address] [facility] Comment on above: Performed By: #### U A #### [facility] [address] [place] [address] Dr. Mason Astudillo Glucose [Mass/Vol] 147 mg/dL Critically high 74-106 [facility] Comment on above: Performed By: #### U A #### [facility] [address] [address] [address] Mason Astudillo Potassium [Moles/Vol] 3.7 mmol/L Normal 3.5-5.1 [facility] Comment on above: Performed By: #### U A #### [facility] [address] [address] [address] Mason Astudillo Sodium [Moles/Vol] 140 mmol/L Normal 136-145 [facility] Comment on above: Performed By: #### U A #### [facility] [address] [address] [address] Mason Astudillo Urea nitrogen [Mass/Vol] 17.0 mg/dL Normal 7.0-18.[address] [facility] Comment on above: Performed By: #### U A #### [facility] [address] [place] [address] Dr. Mason Astudillo Urea nitrogen/Creatinine [Mass ratio] 13.9 mg/mg Normal [facility] Comment on above: Performed By: #### U A #### [facility] [address] [place] [address] Dr. Mason Astudillo CBC AUTO DIFFon 02-04-2022 BASO # 0.0 103/ul Normal 0.0-0.[address] [facility] Comment on above: Performed By: #### C BC #### [facility] [address] [place] [address] Dr. Mason Astudillo Basophils/100 WBC (Bld) 0.2 % Normal 0.2-2.[address] [facility] Comment on above: Performed By: #### C BC #### [facility] [address] [place] [address] Dr. Mason Astudillo EO # 0.2 103/ul Normal 0.0-0.[address] [facility] Comment on above: Performed By: #### C BC #### [facility] [address] [place] [address] Dr. Mason Astudillo Eosinophils/100 WBC (Bld) 3.4 % Normal 0.9-7.[address] [facility] Comment on above: Performed By: #### C BC #### [facility] [address] [place] [address] Dr. Mason Astudillo Erythrocyte distribution width (RBC) [Ratio] 15.6 % Critically high 11.0-15.[address] [facility] Comment on above: Performed By: #### C BC #### [facility] [address] [place] [address] Dr. Mason Astudillo Hematocrit (Bld) [Volume fraction] 26.1 % Critically low 42.0-54.[address] [facility] Comment on above: Performed By: #### C BC #### [facility] [address] [place] [address] Dr. Mason Astudillo Hemoglobin (Bld) [Mass/Vol] 8.2 g/dL Critically low 14.0-18.[address] [facility] Comment on above: Performed By: #### C BC #### [facility] [address] [place] [address] Dr. Mason Astudillo IG # 0.06 10e3/ul Critically high 0.00-0.[address] [facility] Comment on above: Performed By: #### C BC #### [facility] [address] [place] [address] Dr. Mason Astudillo IG % 1.4 % Critically high 0.0-0.[address] [facility] Comment on above: Performed By: #### C BC #### [facility] [address] [place] [address] Dr. Mason Astudillo LYMPH # 0.6 103/ul Critically low 1.2-3.[address] [facility] Comment on above: Performed By: #### C BC #### [facility] [address] [place] [address] Dr. Mason Astudillo Lymphocytes/100 WBC (Bld) 14.3 % Critically low 20.5-60.[address] [facility] Comment on above: Performed By: #### C BC #### [facility] [address] [place] [address] Dr. Mason Astudillo MANUAL DIFF REQ NO Normal [facility] Comment on above: Performed By: #### C BC #### [facility] [address] [place] [address] Dr. Mason Astudillo MCH (RBC) [Entitic mass] 27.4 pg Normal 25.9-34.0 [facility] Comment on above: Performed By: #### C BC #### [facility] [address] [place] [address] Dr. Mason Astudillo MCHC (RBC) [Mass/Vol] 31.4 g/dL Normal 29.9-35.2 [facility] Comment on above: Performed By: #### C BC #### [facility] [address] [place] [address] Dr. Mason Astudillo MCV (RBC) [Entitic vol] 87.3 fL Normal 80.0-94.0 [facility] Comment on above: Performed By: #### C BC #### [facility] [address] [place] [address] Dr. Mason Astudillo MONO # 0.5 103/ul Normal 0.3-0.8 [facility] Comment on above: Performed By: #### C BC #### [facility] [address] [place] [address] Dr. Mason Astudillo Monocytes/100 WBC (Bld) 10.4 % Normal 1.7-12.0 [facility] Comment on above: Performed By: #### C BC #### [facility] [address] [place] [address] Dr. Mason Astudillo NEUT # 3.1 103/ul Normal 1.4-6.[address] [facility] Comment on above: Performed By: #### C BC #### [facility] [address] [place] [address] Dr. Mason Astudillo Neutrophils/100 WBC (Bld) 70.3 % Normal 43.0-75.0 [facility] Comment on above: Performed By: #### C BC #### [facility] [address] [place] [address] Dr. Mason Astudillo Platelet mean volume (Bld) [Entitic vol] 10.5 fL Normal 9.5-13.5 [facility] Comment on above: Performed By: #### C BC #### [facility] [address] [place] [address] Dr. Mason Astudillo PLT 105 103/ul Critically low 150-450 [facility] Comment on above: Performed By: #### C BC #### [facility] [address] [place] [address] Dr. Mason Astudillo RBC 2.99 106/ul Critically low 4.70-6.10 [facility] Comment on above: Performed By: #### C BC #### [facility] [address] [place] [address] Dr. Mason Astudillo WBC 4.4 103/ul Normal 4.0-11.0 [facility] Comment on above: Performed By: #### C #### [facility] [address] [address] [address] Mason Astudillo ECHOCARDIO M/2D COMPLETEon 0 02-04-2022 ECHOCARDIO M/2D COMPLETE Patient: BEN GUADALUPE Exam Date: 02/04/2022 : 1935 Gender:M Ordering : DR COLTON CASTELLON . Admission #: [id number] Family : SHAIKH Samantha ELLIOTT . Order #: [id number] CLICK HERE TO VIEW EXAM ECHOCARDIOGRAM REPORT [...] on 02/04/2022 at 13:[address] [facility] POINT OF CARE GLUCOSEon Glucose [Mass/Vol] 262 mg/dL Critically high 74-106 [facility] Comment on above: Performed By: #### C BC #### [facility] [address] [address] [address] Mason Astudillo Glucose [Mass/Vol] 167 mg/dL Critically high 74-106 [facility] Comment on above: Performed By: #### C BC #### [facility] [address] [address] [address] Mason Astudillo Glucose [Mass/Vol] 158 mg/dL Critically high -106 [facility] Comment on above: Performed By: #### P OCGLUC #### [facility] [address] [place] [address] Dr. Mason Astudillo PRBC LEUKOREDUCEDon 02-05-20 ABO and Rh group Nom (Bld) Cross Match Result Compatible Unit Blood Type A Neg Unit Number [id number] Status Information Transfused Product ID Red Blood Cells Product Code [id number] Cross Match Result Compatible Unit Blood Type A Neg Unit Number [id number] Status Information Transfused Product ID Red Blood Cells Product Code [id number] [facility] Comment on above: Performed By: #### P SAD #### [facility] [address] [place] [address] Dr. Mason Astudillo PROF CHEM 8 (BAS METB)on Anion gap [Moles/Vol] 11.5 mmol/L Normal [facility] Comment on above: Performed By: #### C BC #### [facility] [address] [place] [address] Dr. Mason Astudillo Calcium [Mass/Vol] 7.4 mg/dL Critically low 8.5-10.1 [facility] Comment on above: Performed By: #### C BC #### [facility] [address] [place] [address] Dr. Mason Astudillo Chloride [Moles/Vol] 106 mmol/L Normal 98-[address] [facility] Comment on above: Performed By: #### C BC #### [facility] [address] [address] [address] Mason Astudillo CO2 [Moles/Vol] 25.8 mmol/L Normal 21.0-32.[address] [facility] Comment on above: Performed By: #### C BC #### [facility] [address] [place] [address] Dr. Mason Astudillo Creatinine [Mass/Vol] 1.07 mg/dL Normal 0.70-1.[address] [facility] Comment on above: Performed By: #### C BC #### [facility] [address] [place] [address] Dr. Mason Astudillo EGFR-AF DANISH >60 Normal >=[address] [facility] Comment on above: Performed By: #### C BC #### [facility] [address] [place] [address] Dr. Mason Astudillo EGFR-NON AF DANISH >60 Normal >=[address] [facility] Comment on above: Performed By: #### C BC #### [facility] [address] [place] [address] Dr. Mason Astudillo Glucose [Mass/Vol] 165 mg/dL Critically high 74-106 [facility] Comment on above: Performed By: #### C BC #### [facility] [address] [place] [address] Dr. Mason Astudillo Potassium [Moles/Vol] 3.3 mmol/L Critically low 3.5-5.[address] [facility] Comment on above: Performed By: #### C BC #### [facility] [address] [place] [address] Dr. Mason Astudillo Sodium [Moles/Vol] 140 mmol/L Normal 136-145 [facility] Comment on above: Performed By: #### C BC #### [facility] [address] [place] [address] Dr. Mason Astudillo Urea nitrogen [Mass/Vol] 19.0 mg/dL Critically high 7.0-18.[address] [facility] Comment on above: Performed By: #### C BC #### [facility] [address] [place] [address] Dr. Mason Astudillo Urea nitrogen/Creatinine [Mass ratio] 17.8 mg/mg Normal [facility] Comment on above: Performed By: #### C BC #### [facility] [address] [place] [address] Dr. Mason Astudillo ABO RH RETYPEon 02-03-2022 ABO and Rh group Nom (Bld) DONE Normal [facility] Comment on above: Performed By: #### P OCGLUC #### [facility] [address] [place] [address] Dr. Mason Astudillo CBC AUTO DIFFon 02-03-2022 Basophils/100 WBC (Bld) 0.5 % Normal 0.2-2.[address] [facility] Comment on above: Performed By: #### U A #### [facility] [address] [place] [address] Dr. Mason Astudillo EO # 0.2 103/ul Normal 0.0-0.7 [facility] Comment on above: Performed By: #### U A #### [facility] [address] [place] [address] Dr. Mason Astudillo Eosinophils/100 WBC (Bld) 2.9 % Normal 0.9-7.[address] [facility] Comment on above: Performed By: #### U A #### [facility] [address] [place] [address] Dr. Mason Astudillo Erythrocyte distribution width (RBC) [Ratio] 15.7 % Critically high 11.0-15.0 [facility] Comment on above: Performed By: #### U A #### [facility] [address] [place] [address] Dr. Mason Astudillo Hematocrit (Bld) [Volume fraction] 31.1 % Critically low 42.0-54.[address] [facility] Comment on above: Performed By: #### U A #### [facility] [address] [place] [address] Dr. Mason Astudillo Hemoglobin (Bld) [Mass/Vol] 9.7 g/dL Critically low 14.0-18.[address] [facility] Comment on above: Result Comment: rcvd . 2 units of packed red cells. Performed By: #### U A #### [facility] [address] [place] [address] Dr. Mason Astudillo IG # 0.05 10e3/ul Critically high 0.00-0.[address] [facility] Comment on above: Performed By: #### U A #### [facility] [address] [place] [address] Dr. Mason Astudillo IG % 0.8 % Critically high 0.0-0.[address] [facility] Comment on above: Performed By: #### U A #### [facility] [address] [place] [address] Dr. Mason Astudillo LYMPH # 1.1 103/ul Critically low 1.2-3.[address] [facility] Comment on above: Performed By: #### U A #### [facility] [address] [place] [address] Dr. Mason Astudillo Lymphocytes/100 WBC (Bld) 19.3 % Critically low 20.5-60.[address] [facility] Comment on above: Performed By: #### U A #### [facility] [address] [place] [address] Dr. Mason Astudillo MCH (RBC) [Entitic mass] 27.2 pg Normal 25.9-34.[address] [facility] Comment on above: Performed By: #### U A #### [facility] [address] [place] [address] Dr. Mason Astudillo MCHC (RBC) [Mass/Vol] 31.2 g/dL Normal 29.9-35.2 [facility] Comment on above: Performed By: #### U A #### [facility] [address] [place] [address] Dr. Mason Astudillo MCV (RBC) [Entitic vol] 87.1 fL Normal 80.0-94.[address] [facility] Comment on above: Performed By: #### U A #### [facility] [address] [place] [address] Dr. Mason Astudillo MONO # 0.6 103/ul Normal 0.3-0.8 [facility] Comment on above: Performed By: #### U A #### [facility] [address] [place] [address] Dr. Mason Astudillo Monocytes/100 WBC (Bld) 10.7 % Normal 1.7-12.0 [facility] Comment on above: Performed By: #### U A #### [facility] [address] [place] [address] Dr. Mason sAtudillo NEUT # 3.9 103/ul Normal 1.4-6.5 [facility] Comment on above: Performed By: #### U A #### [facility] [address] [place] [address] Dr. Mason Astudillo Neutrophils/100 WBC (Bld) 65.8 % Normal 43.0-75.[address] [facility] Comment on above: Performed By: #### U A #### [facility] [address] [place] [address] Dr. Mason Astudillo Platelet mean volume (Bld) [Entitic vol] 10.5 fL Normal 9.5-13.5 [facility] Comment on above: Performed By: #### U A #### [facility] [address] [place] [address] Dr. Mason Astudillo PLT 147 103/ul Critically low 150-450 [facility] Comment on above: Performed By: #### U A #### [facility] [address] [place] [address] Dr. Mason Astudillo RBC 3.57 106/ul Critically low 4.70-6.10 [facility] Comment on above: Performed By: #### U A #### [facility] [address] [place] [address] Dr. Mason Astudillo WBC 5.9 103/ul Normal 4.0-11.0 [facility] Comment on above: Performed By: #### U A #### [facility] [address] [place] [address] Dr. Mason Astudillo BASO # 0.0 103/ul Normal 0.0-0.1 [facility] Comment on above: Performed By: #### U A #### [facility] [address] [place] [address] Dr. Mason Astudillo Basophils/100 WBC (Bld) 0.3 % Normal 0.2-2.[address] [facility] Comment on above: Performed By: #### U A #### [facility] [address] [place] [address] Dr. Mason Astudillo EO # 0.1 103/ul Normal 0.0-0.7 [facility] Comment on above: Performed By: #### U A #### [facility] [address] [place] [address] Dr. Mason Astudillo Eosinophils/100 WBC (Bld) 2.5 % Normal 0.9-7.[address] [facility] Comment on above: Performed By: #### U A #### [facility] [address] [place] [address] Dr. Mason Astudillo Erythrocyte distribution width (RBC) [Ratio] 15.9 % Critically high 11.0-15.[address] [facility] Comment on above: Performed By: #### U A #### [facility] [address] [place] [address] Dr. Mason Astudillo Hematocrit (Bld) [Volume fraction] 22.3 % Critically low 42.0-54.[address] [facility] Comment on above: Result Comment: Test Repeated. Critical Value Verified Performed By: #### U A #### [facility] [address] [place] [address] Dr. Mason Astudillo Hemoglobin (Bld) [Mass/Vol] 6.7 g/dL Critically low 14.0-18.[address] [facility] Comment on above: Result Comment: Test Repeated. Critical Value Verified Performed By: #### U A #### [facility] [address] [place] [address] Dr. Mason Astudillo IG # 0.02 10e3/ul Normal 0.00-0.[address] [facility] Comment on above: Performed By: #### U A #### [facility] [address] [place] [address] Dr. Mason Astudillo IG % 0.5 % Normal 0.0-0.[address] [facility] Comment on above: Performed By: #### U A #### [facility] [address] [place] [address] Dr. Mason Astudillo LYMPH # 0.7 103/ul Critically low 1.2-3.[address] [facility] Comment on above: Performed By: #### U A #### [facility] [address] [place] [address] Dr. Mason Astudillo Lymphocytes/100 WBC (Bld) 19.5 % Critically low 20.5-60.[address] [facility] Comment on above: Performed By: #### U A #### [facility] [address] [place] [address] Dr. Mason Astudillo MANUAL DIFF REQ NO Normal [facility] Comment on above: Performed By: #### U A #### [facility] [address] [place] [address] Dr. Mason Astudillo MCH (RBC) [Entitic mass] 25.8 pg Critically low 25.9-34.[address] [facility] Comment on above: Performed By: #### U A #### [facility] [address] [place] [address] Dr. Mason Astudillo MCHC (RBC) [Mass/Vol] 30.0 g/dL Normal 29.9-35.[address] [facility] Comment on above: Performed By: #### U A #### [facility] [address] [place] [address] Dr. Mason Astudillo MCV (RBC) [Entitic vol] 85.8 fL Normal 80.0-94.[address] [facility] Comment on above: Performed By: #### U A #### [facility] [address] [place] [address] Dr. Mason Astudillo MONO # 0.4 103/ul Normal 0.3-0.[address] [facility] Comment on above: Performed By: #### U A #### [facility] [address] [place] [address] Dr. Mason Astudillo Monocytes/100 WBC (Bld) 11.8 % Normal 1.7-12.[address] [facility] Comment on above: Performed By: #### U A #### [facility] [address] [place] [address] Dr. Mason Astudillo NEUT # 2.4 103/ul Normal 1.4-6.[address] [facility] Comment on above: Performed By: #### U A #### [facility] [address] [place] [address] Dr. Mason Astudillo Neutrophils/100 WBC (Bld) 65.4 % Normal 43.0-75.[address] [facility] Comment on above: Performed By: #### U A #### [facility] [address] [place] [address] Dr. Mason Astudillo Platelet mean volume (Bld) [Entitic vol] 10.7 fL Normal 9.5-13.[address] [facility] Comment on above: Performed By: #### U A #### [facility] [address] [place] [address] Dr. Mason Astudillo PLT 103 103/ul Critically low 150-[address] [facility] Comment on above: Performed By: #### U A #### [facility] [address] [place] [address] Dr. Mason Astudillo RBC 2.60 106/ul Critically low 4.70-6.10 [facility] Comment on above: Performed By: #### U A #### [facility] [address] [place] [address] Dr. Mason Astudillo WBC 3.7 103/ul Critically low 4.0-11.0 [facility] Comment on above: Performed By: #### U A #### [facility] [address] [place] [address] Dr. Mason Astudillo IRON AND TIBCon 02-03-2022 % SATURATION 46.9 % Normal [facility] Comment on above: Performed By: #### U A #### [facility] [address] [place] [address] Dr. Mason Astudillo Iron [Mass/Vol] 150.0 ug/dL Normal 65.0-175.[address] [facility] Comment on above: Performed By: #### U A #### [facility] [address] [address] [address] Mason Astudillo TIBC DIRECT 320.0 ug/dL Normal 250.0-450. [address] [facility] Comment on above: Performed By: #### U A #### [facility] [address] [address] [address] Mason Astudillo POINT OF CARE GLUCOSEon 01-06 Glucose [Mass/Vol] 201 mg/dL Critically high [address] [place] [address] Comment on above: Performed By: #### U A #### [facility] [address] [place] [address] Dr. Mason Astudillo Glucose [Mass/Vol] 152 mg/dL Critically high [address] [place] [address] Comment on above: Performed By: #### P OCGLUC #### [facility] [address] [place] [address] Dr. Mason Astudillo Glucose [Mass/Vol] 242 mg/dL Critically high [address] [place] [address] Comment on above: Performed By: #### A 1C #### [facility] [address] [place] [address] Dr. Mason Astudillo PROF CHEM 8 (BAS METB)on Anion gap [Moles/Vol] 11.4 mmol/L Normal [facility] Comment on above: Performed By: #### B MP #### [facility] [address] [place] [address] Dr. Mason Astudillo Calcium [Mass/Vol] 7.5 mg/dL Critically low 8.5-10.1 [facility] Comment on above: Performed By: #### B MP #### [facility] [address] [place] [address] Dr. Mason Astudillo Chloride [Moles/Vol] 106 mmol/L Normal 98-[address] [facility] Comment on above: Performed By: #### B MP #### [facility] [address] [place] [address] Dr. Mason Astudillo CO2 [Moles/Vol] 26.8 mmol/L Normal 21.0-32.[address] [facility] Comment on above: Performed By: #### B MP #### [facility] [address] [address] [address] Mason Astudillo Creatinine [Mass/Vol] 1.26 mg/dL Normal 0.70-1.[address] [facility] Comment on above: Performed By: #### B MP #### [facility] [address] [address] [address] Mason Astudillo EGFR-AF DANISH >60 Normal >=[address] [facility] Comment on above: Performed By: #### B MP #### [facility] [address] [address] [address] Mason Astudillo EGFR-NON AF DANISH 54 mL/min/1.73m2 Critically low >=[address] [facility] Comment on above: Performed By: #### B MP #### [facility] [address] [address] [address] Mason Astudillo Glucose [Mass/Vol] 160 mg/dL Critically high 74-106 [facility] Comment on above: Performed By: #### B MP #### [facility] [address] [address] [address] Mason Astudillo Potassium [Moles/Vol] 3.2 mmol/L Critically low 3.5-5.[address] [facility] Comment on above: Performed By: #### B MP #### [facility] [address] [address] [address] Mason Astudillo Sodium [Moles/Vol] 141 mmol/L Normal 136-145 [facility] Comment on above: Performed By: #### B MP #### [facility] [address] [address] [address] Mason Astudillo Urea nitrogen [Mass/Vol] 30.0 mg/dL Critically high 7.0-18.[address] [facility] Comment on above: Performed By: #### B MP #### [facility] [address] [address] [address] Mason Astudillo Urea nitrogen/Creatinine [Mass ratio] 23.8 mg/mg Normal [facility] Comment on above: Performed By: #### B MP #### [facility] [address] [place] [address] Dr. Mason Astudillo TYPE AND SCREENon 02-03-2022 TYPE AND SCREEN Negative Normal [facility] Comment on above: Performed By: #### T NS #### [facility] [address] [place] [address] Dr. Mason Astudillo BNPon 02-02-2022 Natriuretic peptide B (Bld) [Mass/Vol] 154.0 pg/mL Normal <=1,800.[address] [facility] Comment on above: Performed By: #### P SAD #### [facility] [address] [place] [address] Dr. Mason Astudillo CARDIAC ANJELICA ADMITon 022 CK [Catalytic activity/Vol] 256 U/L Normal 39-[address] [facility] Comment on above: Performed By: #### P OCGLUC #### [facility] [address] [place] [address] Dr. Mason Astudilol CK.MB [Mass/Vol] 3.30 ng/mL Normal <=3.[address] [facility] Comment on above: Performed By: #### P OCGLUC #### [facility] [address] [place] [address] Dr. Mason Astudillo HSTROP 19.1 pg/mL Normal 4.0-76.[address] [facility] Comment on above: Result Comment: CUT- OFF POINTS HAVE BEEN ESTABLISHED BASED ON THE FOURTH UNIVERSAL DEFINITIONS OF MYOCARDIAL INFARCTION. THE UPPER REFERENCE LIMIT (URL) OF TROPONIN, DEFINED THE 99TH PERCENTILE OF cTnI DISTRIBUTION IN A REFERENCE POPULATION, HAS BEEN CONFIRMED THE DECISION THRESHOLD FOR ID DIAGNOSIS. Performed By: #### P OCGLUC #### [facility] [address] [place] [address] Dr. Mason Astudillo ABDELRAHMAN 304 ng/mL Critically high 16-[address] [facility] Comment on above: Performed By: #### P OCGLUC #### [facility] [address] [place] [address] Dr. Mason Astudillo CBC AUTO DIFFon 02-02-2022 BASO # 0.0 103/ul Normal 0.0-0.[address] [facility] Comment on above: Performed By: #### C BC #### [facility] [address] [address] [address] Mason Astudillo Basophils/100 WBC (Bld) 0.5 % Normal 0.2-2.[address] [facility] Comment on above: Performed By: #### C BC #### [facility] [address] [address] [address] Mason Astudillo EO # 0.2 103/ul Normal 0.0-0.7 [facility] Comment on above: Performed By: #### C BC #### [facility] [address] [address] [address] Mason Astudillo Eosinophils/100 WBC (Bld) 2.4 % Normal 0.9-7.[address] [facility] Comment on above: Performed By: #### C BC #### [facility] [address] [place] [address] Dr. Mason Astudillo Erythrocyte distribution width (RBC) [Ratio] 15.9 % Critically high 11.0-15.[address] [facility] Comment on above: Performed By: #### C BC #### [facility] [address] [address] [address] Mason Astudillo Hematocrit (Bld) [Volume fraction] 27.9 % Critically low 42.0-54.[address] [facility] Comment on above: Performed By: #### C BC #### [facility] [address] [place] [address] Dr. Mason Astudillo Hemoglobin (Bld) [Mass/Vol] 8.7 g/dL Critically low 14.0-18.[address] [facility] Comment on above: Performed By: #### C BC #### [facility] [address] [address] [address] Mason Astudillo IG # 0.04 10e3/ul Critically high 0.00-0.[address] [facility] Comment on above: Performed By: #### C BC #### [facility] [address] [place] [address] Dr. Mason Astudillo IG % 0.6 % Critically high 0.0-0.5 [facility] Comment on above: Performed By: #### C BC #### [facility] [address] [place] [address] Dr. Mason Astudillo LYMPH # 1.3 103/ul Normal 1.2-3.[address] [facility] Comment on above: Performed By: #### C BC #### [facility] [address] [place] [address] Dr. Mason Astudillo Lymphocytes/100 WBC (Bld) 20.1 % Critically low 20.5-60.[address] [facility] Comment on above: Performed By: #### C BC #### [facility] [address] [place] [address] Dr. Mason Astudillo MANUAL DIFF REQ NO Normal [facility] Comment on above: Performed By: #### C BC #### [facility] [address] [place] [address] Dr. Mason Astudillo MCH (RBC) [Entitic mass] 26.1 pg Normal 25.9-34.[address] [facility] Comment on above: Performed By: #### C BC #### [facility] [address] [place] [address] Dr. Mason Astudillo MCHC (RBC) [Mass/Vol] 31.2 g/dL Normal 29.9-35.[address] [facility] Comment on above: Performed By: #### C BC #### [facility] [address] [place] [address] Dr. Mason Astudillo MCV (RBC) [Entitic vol] 83.8 fL Normal 80.0-94.[address] [facility] Comment on above: Performed By: #### C BC #### [facility] [address] [place] [address] Dr. Mason Astudillo MONO # 0.7 103/ul Normal 0.3-0.8 [facility] Comment on above: Performed By: #### C BC #### [facility] [address] [place] [address] Dr. Mason Astudillo Monocytes/100 WBC (Bld) 11.1 % Normal 1.7-12.0 [facility] Comment on above: Performed By: #### C BC #### [facility] [address] [place] [address] Dr. Mason Astudillo NEUT # 4.1 103/ul Normal 1.4-6.5 [facility] Comment on above: Performed By: #### C BC #### [facility] [address] [place] [address] Dr. Mason Astudillo Neutrophils/100 WBC (Bld) 65.3 % Normal 43.0-75.0 [facility] Comment on above: Performed By: #### C BC #### [facility] [address] [place] [address] Dr. Mason Astudillo Platelet mean volume (Bld) [Entitic vol] 10.3 fL Normal 9.5-13.[address] [facility] Comment on above: Performed By: #### C BC #### [facility] [address] [place] [address] Dr. Mason Astudillo PLT 145 103/ul Critically low 150-450 [facility] Comment on above: Performed By: #### C BC #### [facility] [address] [place] [address] Dr. Mason Astudillo RBC 3.33 106/ul Critically low 4.70-6.10 [facility] Comment on above: Performed By: #### C BC #### [facility] [address] [place] [address] Dr. Mason Astudillo WBC 6.2 103/ul Normal 4.0-11.0 [facility] Comment on above: Performed By: #### C BC #### [facility] [address] [place] [address] Dr. Mason Astudillo Covid-19 PCR ([facility])on 01-06 SARS-CoV-2 (COVID-19) RNA GARCÍA+probe Ql (Unsp spec) Not detected Normal NOT DETECTED [facility] Comment on above: Result Comment: When diagnostic [...] for this test is supported by the Derrick Engineer of Health and Human Service's declaration that [...] used). Performed By: #### A 1C #### [facility] [address] [place] [address] Dr. Mason Astudillo FREE T3on 02-02-2022 FREE T3 2.16 pg/mlL Critically low 2.18-3.[address] [facility] Comment on above: Performed By: #### P SAD #### [facility] [address] [place] [address] Dr. Mason Astudillo FREE T4on 02-02-2022 Free T4 [Mass/Vol] 1.09 ng/dL Normal 0.76-1.46 [facility] Comment on above: Performed By: #### F T4 #### [facility] [address] [place] [address] Dr. Mason Astudillo GLYCOHEMOGLOBIN A1Con 2021 ADA RECOMMENDATION SEE BELOW Normal [facility] Comment on above: Result Comment: ADA RECOMMENDED LIMIT 4.0 - 6.0 ADA THERAPEUTIC TARGET < 7.0 ACTION SUGGESTED > 7.0 Performed By: #### A 1C #### [facility] [address] [place] [address] Dr. Mason Astudillo Glucose [Mass/Vol] 160 mg/dL Normal [facility] Comment on above: Performed By: #### A 1C #### [facility] [address] [place] [address] Dr. Mason Astudillo HbA1c (Bld) [Mass fraction] 7.2 % Critically high 4.5-6.[address] [facility] Comment on above: Performed By: #### A 1C #### [facility] [address] [address] [address] Mason Astudillo MAGNESIUMon 02-02-2022 Magnesium [Mass/Vol] 2.1 mg/dL Normal 1.8-2.[address] [facility] Comment on above: Performed By: #### P SAD #### [facility] [address] [place] [address] Dr. Mason Astudillo POINT OF CARE GLUCOSEon 01-06 Glucose [Mass/Vol] 226 mg/dL Critically high -106 [facility] Comment on above: Performed By: #### C BC #### [facility] [address] [address] [address] Mason Astudillo Glucose [Mass/Vol] 249 mg/dL Critically high -106 [facility] Comment on above: Performed By: #### C BC #### [facility] [address] [place] [address] Dr. Mason Astudillo Glucose [Mass/Vol] 195 mg/dL Critically high -106 [facility] Comment on above: Performed By: #### P SAD #### [facility] [address] [place] [address] Dr. aMson Astudillo PROF CHEM 8 (BAS METB)on Anion gap [Moles/Vol] 12.6 mmol/L Normal [facility] Comment on above: Performed By: #### P OCGLUC #### [facility] [address] [place] [address] Dr. Mason Astudillo Calcium [Mass/Vol] 8.1 mg/dL Critically low 8.5-10.1 [facility] Comment on above: Performed By: #### P OCGLUC #### [facility] [address] [place] [address] Dr. Mason Astudillo Chloride [Moles/Vol] 101 mmol/L Normal 98-[address] [facility] Comment on above: Performed By: #### P OCGLUC #### [facility] [address] [place] [address] Dr. Mason Astudillo CO2 [Moles/Vol] 29.4 mmol/L Normal 21.0-32.[address] [facility] Comment on above: Performed By: #### P OCGLUC #### [facility] [address] [address] [address] Mason Astudillo Creatinine [Mass/Vol] 1.68 mg/dL Critically high 0.70-1.[address] [facility] Comment on above: Performed By: #### P OCGLUC #### [facility] [address] [address] [address] Mason Astudillo EGFR-AF DANISH 47 mL/min/1.73m2 Critically low >=[address] [facility] Comment on above: Result Comment: Prev iously reported as: (blank) On 02/02/2022 06:30 By [facility] Performed By: #### P OCGLUC #### [facility] [address] [address] [address] Mason Astudillo EGFR-NON AF DANISH 39 mL/min/1.73m2 Critically low >=[address] [facility] Comment on above: Result Comment: Prev iously reported as: (blank) On 02/02/2022 06:30 By [facility] Performed By: #### P OCGLUC #### [facility] [address] [address] [address] Mason Astudillo Glucose [Mass/Vol] 264 mg/dL Critically high 74-106 [facility] Comment on above: Performed By: #### P OCGLUC #### [facility] [address] [place] [address] Dr. Mason Astudillo Potassium [Moles/Vol] 3.0 mmol/L Critically low 3.5-5.[address] [facility] Comment on above: Performed By: #### P OCGLUC #### [facility] [address] [address] [address] Mason Astudillo Sodium [Moles/Vol] 140 mmol/L Normal 136-[address] [facility] Comment on above: Performed By: #### P OCGLUC #### [facility] [address] [address] [address] Mason Astudillo Urea nitrogen [Mass/Vol] 45.0 mg/dL Critically high 7.0-18.[address] [facility] Comment on above: Performed By: #### P OCGLUC #### [facility] [address] [address] [address] Mason Astudillo Urea nitrogen/Creatinine [Mass ratio] 26.8 mg/mg Normal [facility] Comment on above: Performed By: #### P OCGLUC #### [facility] [address] [address] [address] Mason Astudillo TROPONIN, HIGH SENSITIVITYon 02-02-2022 HSTROP 81.7 pg/mL Critically high 4.0-76.[address] [facility] Comment on above: Result Comment: CUT- OFF POINTS HAVE BEEN ESTABLISHED BASED ON THE FOURTH UNIVERSAL DEFINITIONS OF MYOCARDIAL INFARCTION. THE UPPER REFERENCE LIMIT (URL) OF TROPONIN, DEFINED THE 99TH PERCENTILE OF cTnI DISTRIBUTION IN A REFERENCE POPULATION, HAS BEEN CONFIRMED THE DECISION THRESHOLD FOR ID DIAGNOSIS. repeated Performed By: #### B MP #### [facility] [address] [place] [address] Dr. Mason Astudillo TSHon 02-02-2022 TSH 1.200 uIU/mL Normal 0.358-3.[address] [facility] Comment on above: Performed By: #### C BC #### [facility] [address] [place] [address] Dr. Mason Astudillo XR CHEST 1 Von [...] CARMINA LOVE Date: 2022-02-02 06:45 Normal [facility] RENAL FUNCTION PANELon 01-11 Albumin [Mass/Vol] 3.7 g/dL Normal 3.4-5.[address] [facility] Comment on above: Performed By: #### P OCGLUC #### [facility] [address] [place] [address] Dr. Mason Astudillo Calcium [Mass/Vol] 8.6 mg/dL Normal 8.5-10.1 [facility] Comment on above: Performed By: #### P OCGLUC #### [facility] [address] [address] [address] Mason Astudillo Chloride [Moles/Vol] 104 mmol/L Normal 98-[address] [facility] Comment on above: Performed By: #### P OCGLUC #### [facility] [address] [address] [address] Mason Astudillo CO2 [Moles/Vol] 28.0 mmol/L Normal 21.0-32.[address] [facility] Comment on above: Performed By: #### P OCGLUC #### [facility] [address] [address] [address] Mason Astudillo Creatinine [Mass/Vol] 1.25 mg/dL Normal 0.70-1.[address] [facility] Comment on above: Performed By: #### P OCGLUC #### [facility] [address] [address] [address] Mason Astudillo EGFR-AF DANISH >60 Normal >=[address] [facility] Comment on above: Performed By: #### P OCGLUC #### [facility] [address] [address] [address] Mason Astudillo EGFR-NON AF DANISH 55 mL/min/1.73m2 Critically low >=[address] [facility] Comment on above: Performed By: #### P OCGLUC #### [facility] [address] [address] [address] Mason Astudillo Glucose [Mass/Vol] 143 mg/dL Critically high 74-106 [facility] Comment on above: Performed By: #### P OCGLUC #### [facility] [address] [address] [address] Mason Astudillo Phosphate [Mass/Vol] 2.9 mg/dL Normal 2.6-4.[address] [facility] Comment on above: Performed By: #### P OCGLUC #### [facility] [address] [address] [address] Mason Astudillo Potassium [Moles/Vol] 3.6 mmol/L Normal 3.5-5.[address] [facility] Comment on above: Performed By: #### P OCGLUC #### [facility] [address] [address] [address] Mason Astudillo Sodium [Moles/Vol] 142 mmol/L Normal 136-[address] [facility] Comment on above: Performed By: #### P OCGLUC #### [facility] [address] [place] [address] Dr. Mason Astudillo Urea nitrogen [Mass/Vol] 19.0 mg/dL Critically high 7.0-18.[address] [facility] Comment on above: Performed By: #### P OCGLUC #### [facility] [address] [place] [address] Dr. Mason Astudillo UA RANDOMon 01-11-2022 Bilirubin Ql (U) Negative Normal NEGATIVE [facility] Comment on above: Performed By: #### U A #### [facility] [address] [place] [address] Dr. Mason Astudillo Clarity (U) CLEAR Normal CLEAR [facility] Comment on above: Performed By: #### U A #### [facility] [address] [place] [address] Dr. Mason Astudillo Color (U) LT. YELLOW Normal YELLOW [facility] Comment on above: Performed By: #### U A #### [facility] [address] [place] [address] Dr. Mason Astudillo Glucose Ql (U) >1000 Abnormal NEGATIVE [facility] Comment on above: Performed By: #### U A #### [facility] [address] [address] [address] Mason Astudillo Hemoglobin Ql (U) Negative Normal NEGATIVE [facility] Comment on above: Performed By: #### U A #### [facility] [address] [place] [address] Dr. Mason Astudillo Ketones Ql (U) Negative Normal NEGATIVE [facility] Comment on above: Performed By: #### U A #### [facility] [address] [place] [address] Dr. Mason Astudillo LEUKOCYTES Negative Normal NEGATIVE [facility] Comment on above: Performed By: #### U A #### [facility] [address] [place] [address] Dr. Mason Astudillo Nitrite Ql (U) Negative Normal NEGATIVE [facility] Comment on above: Performed By: #### U A #### [facility] [address] [place] [address] Dr. Mason Astudillo pH (U) 6.5 [pH] Normal 5-9 [facility] Comment on above: Performed By: #### U A #### [facility] [address] [place] [address] Dr. Mason Astudillo SPEC GRAVITY 1.010 Normal 1.005-<=1. [address] [facility] Comment on above: Performed By: #### U A #### [facility] [address] [place] [address] Dr. Mason Astudillo UA PROTEIN Negative Normal NEGATIVE/ TRACE [facility] Comment on above: Performed By: #### U A #### [facility] [address] [place] [address] Dr. Mason Astudillo Urobilinogen Qn (U) 0.2 {Lewis'U}/dL Normal 0.2 - 1. [address] [facility] Comment on above: Performed By: #### U A #### [facility] [address] [place] [address] Dr. Mason Astudillo URINE T PROTEIN CREAT RATIOo n 01-11-2022 Protein (U) [Mass/Vol] 23.7 mg/dL Critically high <=12.0 [facility] Comment on above: Performed By: #### A 1C #### [facility] [address] [place] [address] Dr. Mason Astudillo UR PROT CREAT RAT 0.20 Normal [facility] Comment on above: Performed By: #### A 1C #### [facility] [address] [place] [address] Dr. Mason Astudillo URINE CREAT 115.99 mg/dL Normal 20.00-300. 00 [facility] Comment on above: Performed By: #### A 1C #### [facility] [address] [place] [address] Dr. Mason Astudillo US KIDNEYSon 01-09-2022 US [...] BRISA SALAS Date: 2022-01-09 17:44 Normal [facility] FOLATE ([facility])on 2 Folate 11.0 ng/mL Normal >3.0 [facility] Comment on above: Result Comment: A se rum folate concentration of less than 3.1 ng/mL is considered to represent clinical deficiency. Performed By: #### P SAD #### [facility] [address] [address] [address] Mason Astudillo TRANSFERRINon 12-20-2021 Transferrin [Mass/Vol] 316 mg/dL Critically high 149-313 [facility] Comment on above: Performed By: #### A 1C #### [facility] [address] [address] [address] Mason Astudillo CBC AUTO DIFFon 12-18-2021 BASO # 0.0 103/ul Normal 0.0-0.[address] [facility] Comment on above: Performed By: #### U A #### [facility] [address] [place] [address] Dr. Mason Astudillo Basophils/100 WBC (Bld) 0.3 % Normal 0.2-2.[address] [facility] Comment on above: Performed By: #### U A #### [facility] [address] [place] [address] Dr. Mason Astudillo EO # 0.1 103/ul Normal 0.0-0.7 [facility] Comment on above: Performed By: #### U A #### [facility] [address] [place] [address] Dr. Mason Astudillo Eosinophils/100 WBC (Bld) 2.0 % Normal 0.9-7.[address] [facility] Comment on above: Performed By: #### U A #### [facility] [address] [place] [address] Dr. Mason Astudillo Erythrocyte distribution width (RBC) [Ratio] 14.6 % Normal 11.0-15.[address] [facility] Comment on above: Performed By: #### U A #### [facility] [address] [place] [address] Dr. Mason Astudillo Hematocrit (Bld) [Volume fraction] 35.6 % Critically low 42.0-54.[address] [facility] Comment on above: Performed By: #### U A #### [facility] [address] [place] [address] Dr. Mason Astudillo Hemoglobin (Bld) [Mass/Vol] 10.7 g/dL Critically low 14.0-18.[address] [facility] Comment on above: Performed By: #### U A #### [facility] [address] [place] [address] Dr. Mason Astudillo IG # 0.03 10e3/ul Normal 0.00-0.03 [facility] Comment on above: Performed By: #### U A #### [facility] [address] [place] [address] Dr. Mason Astudillo IG % 0.5 % Normal 0.0-0.5 [facility] Comment on above: Performed By: #### U A #### [facility] [address] [place] [address] Dr. Mason Astudillo LYMPH # 1.0 103/ul Critically low 1.2-3.[address] [facility] Comment on above: Performed By: #### U A #### [facility] [address] [place] [address] Dr. Mason Astudillo Lymphocytes/100 WBC (Bld) 15.5 % Critically low 20.5-60.[address] [facility] Comment on above: Performed By: #### U A #### [facility] [address] [place] [address] Dr. Mason Astudillo MANUAL DIFF REQ NO Normal [facility] Comment on above: Performed By: #### U A #### [facility] [address] [place] [address] Dr. Mason Astudillo MCH (RBC) [Entitic mass] 27.4 pg Normal 25.9-34.[address] [facility] Comment on above: Performed By: #### U A #### [facility] [address] [place] [address] Dr. Mason Astudillo MCHC (RBC) [Mass/Vol] 30.1 g/dL Normal 29.9-35.2 [facility] Comment on above: Performed By: #### U A #### [facility] [address] [place] [address] Dr. Mason Astudillo MCV (RBC) [Entitic vol] 91.0 fL Normal 80.0-94.[address] [facility] Comment on above: Performed By: #### U A #### [facility] [address] [place] [address] Dr. Mason Astudillo MONO # 0.5 103/ul Normal 0.3-0.8 [facility] Comment on above: Performed By: #### U A #### [facility] [address] [place] [address] Dr. Mason Astudillo Monocytes/100 WBC (Bld) 8.1 % Normal 1.7-12.[address] [facility] Comment on above: Performed By: #### U A #### [facility] [address] [place] [address] Dr. Mason Astudillo NEUT # 4.5 103/ul Normal 1.4-6.[address] [facility] Comment on above: Performed By: #### U A #### [facility] [address] [place] [address] Dr. Mason Astudillo Neutrophils/100 WBC (Bld) 73.6 % Normal 43.0-75.[address] [facility] Comment on above: Performed By: #### U A #### [facility] [address] [place] [address] Dr. Mason Astudillo Platelet mean volume (Bld) [Entitic vol] 10.1 fL Normal 9.5-13.[address] [facility] Comment on above: Performed By: #### U A #### [facility] [address] [place] [address] Dr. Mason Astudillo PLT 138 103/ul Critically low 150-[address] [facility] Comment on above: Performed By: #### U A #### [facility] [address] [place] [address] Dr. Mason Astudillo RBC 3.91 106/ul Critically low 4.70-6.[address] [facility] Comment on above: Performed By: #### U A #### [facility] [address] [place] [address] Dr. Mason Astudillo WBC 6.1 103/ul Normal 4.0-11.[address] [facility] Comment on above: Performed By: #### U A #### [facility] [address] [place] [address] Dr. Mason Astudillo FERRITINon 12-18-2021 Ferritin [Mass/Vol] 16.0 ng/mL Critically low 26.0-388.0 [facility] Comment on above: Performed By: #### P OCGLUC #### [facility] [address] [place] [address] Dr. Mason Astudillo GLYCOHEMOGLOBIN A1Con 2021 ADA RECOMMENDATION SEE BELOW Normal [facility] Comment on above: Result Comment: ADA RECOMMENDED LIMIT 4.0 - 6.0 ADA THERAPEUTIC TARGET < 7.0 ACTION SUGGESTED > 7.0 Performed By: #### C BC #### [facility] [address] [address] [address] Mason Astudillo Glucose [Mass/Vol] 140 mg/dL Normal [facility] Comment on above: Performed By: #### C BC #### [facility] [address] [address] [address] Mason Astudillo HbA1c (Bld) [Mass fraction] 6.5 % Critically high 4.5-6.[address] [facility] Comment on above: Performed By: #### C BC #### [facility] [address] [address] [address] Mason Astudillo IRON AND TIBCon 12-18-2021 % SATURATION 5.7 % Normal [facility] Comment on above: Performed By: #### P OCGLUC #### [facility] [address] [place] [address] Dr. Mason Astudillo Iron [Mass/Vol] 23.0 ug/dL Critically low 65.0-175.[address] [facility] Comment on above: Performed By: #### P OCGLUC #### [facility] [address] [place] [address] Dr. Mason Astudillo TIBC DIRECT 413.0 ug/dL Normal 250.0-450. [address] [facility] Comment on above: Performed By: #### P OCGLUC #### [facility] [address] [place] [address] Dr. Mason Astudillo PROF CHEM 8 (BAS METB)on Anion gap [Moles/Vol] 13.7 mmol/L Normal [facility] Comment on above: Performed By: #### P SAD #### [facility] [address] [place] [address] Dr. Mason Astudillo Calcium [Mass/Vol] 8.2 mg/dL Critically low 8.5-10.1 [facility] Comment on above: Performed By: #### P SAD #### [facility] [address] [place] [address] Dr. Mason Astudillo Chloride [Moles/Vol] 105 mmol/L Normal 98-[address] [facility] Comment on above: Performed By: #### P SAD #### [facility] [address] [address] [address] Mason Astudillo CO2 [Moles/Vol] 27.1 mmol/L Normal 21.0-32.[address] [facility] Comment on above: Performed By: #### P SAD #### [facility] [address] [address] [address] Mason Astudillo Creatinine [Mass/Vol] 1.32 mg/dL Critically high 0.70-1.[address] [facility] Comment on above: Performed By: #### P SAD #### [facility] [address] [address] [address] Mason Astudillo EGFR-AF DANISH >60 Normal >=[address] [facility] Comment on above: Performed By: #### P SAD #### [facility] [address] [place] [address] Dr. Mason Astudillo EGFR-NON AF DANISH 52 mL/min/1.73m2 Critically low >=[address] [facility] Comment on above: Performed By: #### P SAD #### [facility] [address] [address] [address] Mason Astudillo Glucose [Mass/Vol] 121 mg/dL Critically high 74-106 [facility] Comment on above: Performed By: #### P SAD #### [facility] [address] [place] [address] Dr. Mason Astudillo Potassium [Moles/Vol] 3.8 mmol/L Normal 3.5-5.[address] [facility] Comment on above: Performed By: #### P SAD #### [facility] [address] [place] [address] Dr. Mason Astudillo Sodium [Moles/Vol] 142 mmol/L Normal 136-[address] [facility] Comment on above: Performed By: #### P SAD #### [facility] [address] [address] [address] Mason Astudillo Urea nitrogen [Mass/Vol] 27.0 mg/dL Critically high 7.0-18.[address] [facility] Comment on above: Performed By: #### P SAD #### [facility] [address] [address] [address] Mason Astudillo Urea nitrogen/Creatinine [Mass ratio] 20.5 mg/mg Normal [facility] Comment on above: Performed By: #### P SAD #### [facility] [address] [place] [address] Dr. Mason Astudillo VITAMIN B12on 12-18-2021 Cobalamin (Vitamin B12) [Mass/Vol] 423.0 pg/mL Normal 193.0-986. [address] [facility] Comment on above: Performed By: #### P OCGLUC #### [facility] [address] [place] [address] Dr. Mason Astudillo CBC AUTO DIFFon 11-08-2021 BASO # 0.0 103/ul Normal 0.0-0.[address] [facility] Comment on above: Performed By: #### U A #### [facility] [address] [place] [address] Dr. Mason Astudillo Basophils/100 WBC (Bld) 0.3 % Normal 0.2-2.[address] [facility] Comment on above: Performed By: #### U A #### [facility] [address] [place] [address] Dr. Mason Astudillo EO # 0.2 103/ul Normal 0.0-0.[address] [facility] Comment on above: Performed By: #### U A #### [facility] [address] [place] [address] Dr. Mason Astudillo Eosinophils/100 WBC (Bld) 2.6 % Normal 0.9-7.0 [facility] Comment on above: Performed By: #### U A #### [facility] [address] [place] [address] Dr. Mason Astudillo Erythrocyte distribution width (RBC) [Ratio] 15.1 % Critically high 11.0-15.0 [facility] Comment on above: Performed By: #### U A #### [facility] [address] [place] [address] Dr. Mason Astudillo Hematocrit (Bld) [Volume fraction] 36.2 % Critically low 42.0-54.0 [facility] Comment on above: Performed By: #### U A #### [facility] [address] [place] [address] Dr. Mason Astudillo Hemoglobin (Bld) [Mass/Vol] 11.7 g/dL Critically low 14.0-18.[address] [facility] Comment on above: Performed By: #### U A #### [facility] [address] [place] [address] Dr. Mason Astudillo IG # 0.04 10e3/ul Critically high 0.00-0.[address] [facility] Comment on above: Performed By: #### U A #### [facility] [address] [place] [address] Dr. Mason Astudillo IG % 0.7 % Critically high 0.0-0.[address] [facility] Comment on above: Performed By: #### U A #### [facility] [address] [place] [address] Dr. Mason Astudillo LYMPH # 0.9 103/ul Critically low 1.2-3.[address] [facility] Comment on above: Performed By: #### U A #### [facility] [address] [place] [address] Dr. Mason Astudillo Lymphocytes/100 WBC (Bld) 14.4 % Critically low 20.5-60.[address] [facility] Comment on above: Performed By: #### U A #### [facility] [address] [place] [address] Dr. Mason Astudillo MANUAL DIFF REQ NO Normal [facility] Comment on above: Performed By: #### U A #### [facility] [address] [place] [address] Dr. Mason Astudillo MCH (RBC) [Entitic mass] 29.8 pg Normal 25.9-34.0 [facility] Comment on above: Performed By: #### U A #### [facility] [address] [place] [address] Dr. Mason Astudillo MCHC (RBC) [Mass/Vol] 32.3 g/dL Normal 29.9-35.2 [facility] Comment on above: Performed By: #### U A #### [facility] [address] [address] [address] Mason Astudillo MCV (RBC) [Entitic vol] 92.3 fL Normal 80.0-94.[address] [facility] Comment on above: Performed By: #### U A #### [facility] [address] [address] [address] Mason Astudillo MONO # 0.5 103/ul Normal 0.3-0.[address] [facility] Comment on above: Performed By: #### U A #### [facility] [address] [address] [address] Mason Astudillo Monocytes/100 WBC (Bld) 7.5 % Normal 1.7-12.[address] [facility] Comment on above: Performed By: #### U A #### [facility] [address] [place] [address] Dr. Mason Astudillo NEUT # 4.5 103/ul Normal 1.4-6.[address] [facility] Comment on above: Performed By: #### U A #### [facility] [address] [place] [address] Dr. Mason Astudillo Neutrophils/100 WBC (Bld) 74.5 % Normal 43.0-75.[address] [facility] Comment on above: Performed By: #### U A #### [facility] [address] [place] [address] Dr. Mason Astudillo Platelet mean volume (Bld) [Entitic vol] 10.1 fL Normal 9.5-13.5 [facility] Comment on above: Performed By: #### U A #### [facility] [address] [place] [address] Dr. Mason Astudillo PLT 132 103/ul Critically low 150-450 [facility] Comment on above: Performed By: #### U A #### [facility] [id number] Mason Astudillo RBC 3.92 106/ul Critically low 4.70-6.10 [facility] Comment on above: Performed By: #### U A #### [facility] [address] [place] [address] Dr. Mason Astudillo WBC 6.0 103/ul Normal 4.0-11.[address] [facility] Comment on above: Performed By: #### U A #### [facility] [address] [address] [address] Mason Astudillo PROF CHEM 8 (BAS METB)on Anion gap [Moles/Vol] 8.9 mmol/L Normal [facility] Comment on above: Performed By: #### B MP #### [facility] [address] [place] [address] Dr. Mason Astudillo Calcium [Mass/Vol] 7.9 mg/dL Critically low 8.5-10.1 [facility] Comment on above: Performed By: #### B MP #### [facility] [address] [place] [address] Dr. Mason Astudillo Chloride [Moles/Vol] 101 mmol/L Normal 98-[address] [facility] Comment on above: Performed By: #### B MP #### [facility] [address] [place] [address] Dr. Mason Astudillo CO2 [Moles/Vol] 28.3 mmol/L Normal 21.0-32.[address] [facility] Comment on above: Performed By: #### B MP #### [facility] [address] [place] [address] Dr. Mason Astudillo Creatinine [Mass/Vol] 1.22 mg/dL Normal 0.70-1.[address] [facility] Comment on above: Performed By: #### B MP #### [facility] [address] [place] [address] Dr. Mason Astudillo EGFR-AF DANISH >60 Normal >=[address] [facility] Comment on above: Performed By: #### B MP #### [facility] [address] [place] [address] Dr. Mason Astudillo EGFR-NON AF DANISH 57 mL/min/1.73m2 Critically low >=60 [facility] Comment on above: Performed By: #### B MP #### [facility] [address] [place] [address] Dr. Mason Astudillo Glucose [Mass/Vol] 167 mg/dL Critically high 74-106 [facility] Comment on above: Performed By: #### B MP #### [facility] [address] [address] [address] Mason Astudillo Potassium [Moles/Vol] 3.2 mmol/L Critically low 3.5-5.[address] [facility] Comment on above: Performed By: #### B MP #### [facility] [address] [address] [address] Mason Astudillo Sodium [Moles/Vol] 135 mmol/L Critically low 136-145 [facility] Comment on above: Performed By: #### B MP #### [facility] [address] [address] [address] Mason Astudillo Urea nitrogen [Mass/Vol] 23.0 mg/dL Critically high 7.0-18.[address] [facility] Comment on above: Performed By: #### B MP #### [facility] [address] [address] [address] Mason Astudillo Urea nitrogen/Creatinine [Mass ratio] 18.9 mg/mg Normal [facility] Comment on above: Performed By: #### B MP #### [facility] [address] [address] [address] Mason Astudillo XR CHEST 2 Von [...] CASILLAS Date: 2021-11-08 14:[address] [facility] Vital Signs Date Time Vital Sign Value Performing Clinician Facility 08-06-2024 14:58-0500 Diastolic blood pressure 92 mm[Hg] PHYSICIAN NO [facility] 08-06-2024 14:58-0500 Heart rate 90 /min PHYSICIAN NO [facility] 08-06-2024 14:58-0500 Respiratory rate 16 /min PHYSICIAN NO [facility] 08-06-2024 14:58-0500 SaO2% (BldA) [Mass fraction] 97 % PHYSICIAN NO [facility] 08-06-2024 14:58-0500 Systolic blood pressure 136 mm[Hg] PHYSICIAN NO [facility] 08-06-2024 14:07-0500 Body temperature 98.9 [degF] PHYSICIAN NO [facility] 08-06-2024 13:37-0500 Inhaled oxygen flow rate 8 L/min PHYSICIAN NO [facility] 08-06-2024 10:55-0500 Body height 177.8 cm PHYSICIAN NO [facility] 08-06-2024 10:55-0500 Body weight 81.64 kg PHYSICIAN NO [facility] 06-20-2023 10:46-0500 Blood Pressure Location Mekhi VERGARA [facility] 06-20-2023 10:46-0500 Diastolic blood pressure 79 mm[Hg] Mekhi VERGARA [facility] 06-20-2023 10:46-0500 Heart rate 68 /min Mekhidominique VERGARA [facility] 06-20-2023 10:46-0500 Respiratory rate 16 /min Mekhi VERGARA [facility] 06-20-2023 10:46-0500 Systolic blood pressure 130 mm[Hg] Mekhi VERGARA [facility] 12-23-2022 13:13-0400 Blood Pressure Location Mekhi VERGARA [facility] 12-23-2022 13:13-0400 Diastolic blood pressure 68 mm[Hg] Mekhi VERGARA [facility] 12-23-2022 13:13-0400 Heart rate 70 /min Mekhi VERGARA [facility] 12-23-2022 13:13-0400 Systolic blood pressure 120 mm[Hg] Mekhi VERGARA [facility] 05-10-2022 10:43-0400 Body height 177.8 cm Pacc 6 Work Phone: [facility] 05-10-2022 10:43-0400 Body temperature 97.81 [degF] Pacc 6 Work Phone: [facility] 05-10-2022 10:43-0400 Body weight 86.18 kg Pacc 6 Work Phone: [facility] 05-10-2022 10:43-0400 Diastolic blood pressure 75 mm[Hg] Pacc 6 Work Phone: [facility] 05-10-2022 10:43-0400 Heart rate 86 /min Pacc 6 Work Phone: [facility] 05-10-2022 10:43-0400 SaO2% (BldA) [Mass fraction] 97 % Pacc 6 Work Phone: [facility] 05-10-2022 10:43-0400 Systolic blood pressure 124 mm[Hg] Pacc 6 Work Phone: [facility] 04-22-2022 15:42-0400 Blood Pressure Location Mekhi VERGARA [facility] 04-22-2022 15:42-0400 Diastolic blood pressure 64 mm[Hg] Mekhi VERGARA [facility] 04-22-2022 15:42-0400 Heart rate 76 /min Mekhi VERGARA [facility] 04-22-2022 15:42-0400 Respiratory rate 60 /min Mekhi VERGARA [facility] 04-22-2022 15:42-0400 Systolic blood pressure 117 mm[Hg] Mekhi VERGARA [facility] 04-17-2022 12:55-0400 Body height 177.8 cm Tristin Wilcox MD, PhD Work Phone: [facility] 04-17-2022 12:55-0400 Body temperature 98.4 [degF] Tristin Wilcox MD, PhD Work Phone: [facility] 04-17-2022 12:55-0400 Body weight 86.18 kg Tristin Wilcox MD, PhD Work Phone: [facility] 04-17-2022 12:55-0400 Diastolic blood pressure 74 mm[Hg] Tristin Wilcox MD, PhD Work Phone: [facility] 04-17-2022 12:55-0400 Heart rate 70 /min Tristin Wilcox MD, PhD Work Phone: [facility] 04-17-2022 12:55-0400 Respiratory rate 16 /min Tristin Wilcox MD, PhD Work Phone: [facility] 04-17-2022 12:55-0400 SaO2% (BldA) [Mass fraction] 99 % Tristin Wilcox MD, PhD Work Phone: [facility] 04-17-2022 12:55-0400 Systolic blood pressure 127 mm[Hg] Tristin Wilcox MD, PhD Work Phone: [facility] 10-16-2021 14:39-0400 Blood Pressure Location 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 [facility] [place] 10-16-2021 14:39-0400 Diastolic blood pressure 76 mm[Hg] 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 [facility] [place] 10-16-2021 14:39-0400 Heart rate 68 /min 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 [facility] [place] 10-16-2021 14:39-0400 Respiratory rate 16 /min 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 [facility] [place] 10-16-2021 14:39-0400 Systolic blood pressure 106 mm[Hg] 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 [facility] [place] Encounters Encounter Date Encounter Type Care Provider Facility Start: 08-17-2024 End: 08-17-2024 ambulatory CHACORTA MENDOZA Facility:[facility] Start: 08-06-2024 End: 08-06-2024 Admission to same day surgery center PHYSICIAN NO [facility] [place] Start: 08-06-2024 End: 08-06-2024 ambulatory PHYSICIAN [facility] Work Phone: Start: 08-06-2024 End: 08-06-2024 ambulatory Olman APONTE Facility::[id number] Start: 06-29-2024 End: 06-29-2024 ambulatory Olman APONTE Facility: [place] Start: 06-29-2024 End: 06-29-2024 Patient encounter procedure Olman APONTE [facility] [place] Start: 05-31-2024 Non-patient / Non-visit PHYSICIAN [facility] Work Phone: Start: 05-26-2024 End: 05-28-2024 Clinisync Result Encounter Generic External Data Provider [facility] External Department Unsolicited Start: 05-26-2024 End: 05-28-2024 Clinisync Result Encounter Generic External Data Provider [facility] External Department Unsolicited Start: 05-26-2024 End: 05-26-2024 ambulatory Olman APONTE Facility::[id number] Start: 05-23-2024 End: 05-28-2024 Non-patient / Non-visit PHYSICIAN SUN [facility] Work Phone: Start: 05-22-2024 End: 05-24-2024 Clinisync Result Encounter [...] Grimes lity:Karley Start: 08-28-2023 End: 08-28-2023 ambulatory [facility] Start: 08-21-2023 Orders Only Shaikh Lexi WORKMAN Work Phone: [facility] Comment on above: 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; Chronic heart failure with preserved ejection fraction (CMS/HCC); Chronic bilateral low back pain with bilateral sciatica Start: 08-19-2023 End: 08-19-2023 ambulatory Mekhi VERGARA [email or web address] Start: 08-19-2023 End: 08-19-2023 Patient encounter procedure Mekhi VERGARA [facility] Start: 08-19-2023 End: 08-19-2023 ambulatory Mekhi VERGARA Facility:[facility] Start: 08-19-2023 End: 08-19-2023 Patient encounter procedure Mekhi VERGARA [facility] Start: 07-28-2023 End: 07-28-2023 ambulatory DE LA O LEXI Not Available Start: 07-03-2023 End: 07-03-2023 ambulatory DE LA O LEXI Not Available Start: 07-03-2023 Patient encounter procedure Shaikh Lexi WORKMAN Work Phone: [facility] Start: 06-20-2023 End: 06-20-2023 Patient encounter procedure Mekhi VERGARA [facility] Start: 06-18-2023 End: 06-18-2023 ambulatory SHAIKH LEXI [...] Facility: [place] Start: 03-07-2023 End: 03[facility]07[facility] Start: 02-03-2023 End: 02-04-2023 ambulatory Mallorie Joy MD Facility: [place] Start: 12-23-2022 End: 12-23-2022 Patient encounter procedure Mekhi VERGARA [facility] [place] Start: 11-21-2022 ambulatory NARENDRANATH LAKSHMIPATHY . Facility:[facility] Start: 10-31-2022 ambulatory NARENDRANATH LAKSHMIPATHY . Facility:[facility] Start: 10-29-2022 End: 10-29-2022 ambulatory NARENDRANATH LAKSHMIPATHY . Facility:[facility] Start: 10-24-2022 End: 10-25-2022 ambulatory NARENDRANATH LAKSHMIPATHY . Facility:[facility] Start: 10-18-2022 End: 10-18-2022 ambulatory [facility] Start: 10-11-2022 End: 10-12-2022 ambulatory [facility] Start: 09-11-2022 End: 09-11-2022 ambulatory [facility] Start: 08-06-2022 End: 08-06-2022 Patient encounter procedure Mekhi VERGARA [facility] Start: 07-30-2022 End: 07-31-[address] PAULINE WINSTON . Facility: Start: 07-09-2022 End: 07-09-2022 ambulatory SHAIKH Milena ELLIOTT Facility: Start: 06-25-2022 End: 06-26-2022 ambulatory SHAIKH Milena ELLIOTT Facility: Start: 05-17-2022 End: 05-17-2022 ambulatory TRISTIN AURELIO DURAES Facility:[facility] Start: 05-16-2022 Telephone encounter Maria Luisa Garcia RN C olorectal Surgery Comment on above: [employer] [facility] [employer] Start: 05-10-2022 End: 05-11-2022 ambulatory TRISTIN AURELIO DURAES Facility:[facility] Start: 05-10-2022 Encounter for other preprocedural examination TRISTIN AURELIO DURAES [facility] Start: 05-10-2022 End: 11-04-2022 ambulatory Pacc [address] Work Phone: Pre [...] Chronic kidney disease, stage 4 (severe) ([facility]); Calculus of kidney; Hypothyroidism unspecified; Iron deficiency anemia due to chronic blood loss; History of prostate cancer; History of primary malignant neoplasm of urinary bladder; Gout, unspecified cause, unspecified chronicity, unspecified site Patient Education Start: 05-10-2022 End: 05-11-2022 ambulatory TRISTIN WILCOX Facility:[facility] Start: 05-10-2022 End: 05-10-2022 Admission to establishment P[facility] Work Phone: [facility] Start: 05-10-2022 End: 05-10-2022 Preprocedural examination done Pacc [address] Work Phone: Pre Anesthesia Start: 05-09-2022 End: 05-10-2022 ambulatory SHAIKH Milena ELLIOTT Facility: Start: 05-01-2022 End: 05-01-2022 ambulatory FRANKY VERONICA Facility:[facility] Start: 04-25-2022 Telephone encounter Tristin Ruiz [facility] Comment on above: Appointment Start: 04-24-2022 Telephone encounter Marika Crabtree Col[facility] Surgery Comment on above: [employer] [facility] [employer] Start: 04-22-2022 End: 04-22-2022 Patient encounter procedure Mekhi VERGARA [facility] Start: 04-18-2022 End: 04-19-2022 ambulatory DE LA O H FAWWAD Facility:[facility] Start: 04-17-2022 End: 04-18-2022 ambulatory TRISTIN WILCOX Facility:[facility] Start: 04-17-2022 End: 04-17-2022 Patient encounter procedure [...] End: 12-13-2021 Patient encounter procedure 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 [facility] [place] Start: 11-29-2021 End: 11-30-2021 ambulatory CALVIN MOREJON . Facility:[facility] Start: 11-27-2021 End: 11-27-2021 Patient encounter procedure Yenni R NILL [facility] [place] Start: 11-21-2021 End: 11-22-2021 ambulatory SHAIKH Milena ELLIOTT Facility:[facility]1 Start: 11-17-2021 ambulatory SHAIKH Milena ELLIOTT Facilit y:H1 Start: 11-09-2021 Encounter for preprocedural cardiovascular examination DR YENNI STANLEY . [facility] Start: 11-09-2021 Encounter for preprocedural laboratory examination DR YENNI STANLEY . [facility] Start: 11-08-2021 End: 11-09-[address] NONE LISTED REQUEST Facility: Start: 11-08-2021 End: 11-09-2021 Encounter for preprocedural cardiovascular examination NONE LISTED REQUEST Facility: Start: 10-16-2021 End: 10-16-2021 Patient encounter procedure Yenni Oh NILL General Surgery Nill/Said Columba Start: 10-09-2021 End: 10-09-2021 Off-Site Iraida James [facility] Start: 01-20-2017 End: 01-21-2017 Ambulatory DEFAULT PHYSICIAN Facility:[facility] Procedures Date Procedure Procedure Detail Performing Clinician Start: 08-06-2024 Fungal Culture Result 2 PHYSICIAN NO FAMILY Start: 08-06-2024 Fungal Culture Result 3 PHYSICIAN NO FAMILY Start: 08-06-2024 Fungal Culture Result 4 PHYSICIAN NO FAMILY Start: 08-06-2024 Mycology Susceptibility PHYSICIAN NO FAMILY Start: 08-06-2024 Cystoscopy PHYSICIAN NO FAMILY Start: 08-06-2024 Supine abdominal X-ray PHYSICIAN NO FAMILY Start: 08-06-2024 Supine abdominal X-ray PHYSICIAN NO FAMILY Start: 05-26-2024 BLOOD CULTURE 1 Generic External Data Provider Start: 05-22-2024 BLOOD CULTURE 2 Generic External Data Provider Start: 05-22-2024 BLOOD CULTURE 1 Generic External Data Provider Start: 08-05-2022 Cystoscopy Mekhi VERGARA Start: 05-10-2022 Antibody screen TRISTIN WILCOX Comment on above: Order Comment: Specimen Type: BLOOD SPEC IMENOrdering Facility: [facility] Address: [address] [place] [address] Performed By: #### T [id number] ####CC MAIN BLOOD BANKCLIA [id number] [facility] [id number] [place] [address] Start: 05-09-2022 PSA screening SHAIKH LEXI Comment on above: Performed By: #### A1C #### [facility] [address] [place] [address] Dr. Mason Astudillo Start: 04-18-2022 PSA screening SHAIKH LEXI Comment on above: Performed By: #### PSAD #### [facility] [address] [address] [address] Mason Astudillo Start: 04-17-2022 Sigmoidoscopy flx dx w/collj spec br/wa if pfrmd [facility] Provider Start: 02-03-2022 Transfusion of Nonautologous Red Blood Cells into Peripheral Vein, Percutaneous Approach SHAIKH LEXI Start: 11-21-2021 Repair of right inguinal hernia Yenni NEALGinger Start: 09-21-2021 Colonoscopy Iraida James Start: 07-30-2021 [...] spine Yenni NEALL Extraction of cataract Justin STANLEY Comment on above: bilateral History of hernia repair Miguel NEALL History of surgical procedure on cervical spine Mekhi VERGARA Parathyroidectomy Yenni ALONZO Radiofrequency ablation Aba ael VALL Comment on above: C3-C6 Tonsillectomy and adenoidectomy Yenni NEALL 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 VERGARA Plan of Treatment Date Care Activity Detail Author Start: 01-04-2025 Glaucoma screening Diabetes: R etinopathy Screening [facility] Start: 08-06-2024 Aerobic Culture Aerobic Culture [facility] Start: 08-06-2024 Anaerobic Culture Anaerobic Culture [facility] Start: 08-06-2024 Fungal Culture Result 1 Fungal Culture Result 1 [facility] Start: 08-06-2024 Microscopic observat ion [Identifier] in Unspecified specimen by Gram stain [facility] Start: 08-06-2024 Mycology Culture Mycology Culture [facility] Start: 08-06-2024 End: 08-06-2024 [facility] Start: 07-03-2024 Medicare Annual Well ness (AWV) Medicare Annual Wellness (AWV) [facility] Start: 03-07-2024 Influenza vaccination Influenza Vacc ine (#1) [facility] Start: 10-02-2023 End: 10-02-2023 Patient encounter procedure 10/02/2023 1:00 PM EDT Office Visit [facility] [address] [place] [id number] Shaikh Elliott MD [address] [place] [address] [facility] Start: 08-28-2023 Urine screening for protein Diabetes: Urine Protein Screening [facility] Start: 08-07-2023 Hemoglobin A1c measurement Diabetes: Hemoglobin A1C [facility] Start: 11-07-2022 Hemoglobin A1c/Hemoglobin.total in Blood HBA1C [facility] Start: 05-10-2022 End: 07-10-2022 Hemoglobin A1c in Blood [facility] Work Phone: Comment on above: Expected: 05/10/2022 , Expires: 07/10/2022 Start: 03-07-2022 Influenza vaccination INFLUENZA (#1) [facility] Start: 08-21-2021 COVID-19 VACCINE (4 - Booster for Moderna series) COVID-19 VACCINE (4 - Booster for Moderna series) [facility] Start: 07-07-2021 ADVANCE DIRECTIVE DISCUSSION ADVANCE DIRECTIVE DISCUSSION [facility] Start: 07-07-2021 DEPRESSION ASSESSMENT DEPRESSION ASS ESSMENT [facility] Start: 2001 PNEUMOCOCCAL: 65+ (1 - PCV) PNEUMOCOCCAL: 65+ (1 - PCV) [facility] Start: 1986 SHINGRIX VACCINE (1 of 2) BRIGHT GRIX VACCINE (1 of 2) [facility] Start: 1981 DIABETES SCREEN [facility]ET[facility] SCREEN [facility] Start: 12-17-1955 Urine microalbumin profile DTAP,TDAP,TD (1 - Tdap) [facility] Start: 1954 Hepatitis B surface antibody level LDL CHOLESTEROL [facility] Start: 1954 SPIROMETRY SPIROMETRY [facility] Start: 1946 3 comp foot exam completed DIABETIC FOOT EXAM [facility] Start: 1946 Hepatitis B screening URINE ALBUMIN:CREATININE RATIO [facility] Start: 1946 Hepatitis C antibody , confirmatory test DILATED RETINAL EXAM [facility] Start: 1942 PNEUMOCOCCAL: 65+ (1 - PCV) PNEUMOCOCCAL: 65+ (1 - PCV) [facility] Start: 1941 Hemoglobin A1c/Hemoglobin.total in Blood HBA1C [facility] Bacteria identified in Unspecified specimen by Aerobe culture [facility] Bacteria identified in Unspecified specimen by Anaerobe culture [facility] Bilirubin measurement [facility] BLOOD CULTURE 1 BLOOD CULTURE 1 Lab Routine 05/22/2024 10:48 PM EST [facility] St[employer] BLOOD CULTURE 1 BLOOD CULTURE 1 Lab Routine 05/26/2024 11:10 AM [facility] BLOOD CULTURE 2 BLOOD CULTURE 2 Lab Routine 05/22/2024 11:00 PM EST [facility] [employer] Body weight [facility] Calcium carbonate/To tricia in [facility] Calcium hydrogen phosphate dihydrate/Total in [facility] Calcium oxalate monohydrate/Total in [facility] Calcium phosphate level [facility] Calculus analysis wi th calculus photography [Interpretation] in [facility] Calculus analysis, qualitative [facility] Calculus analysis, quantitative [facility] Calculus analysis, quantitative, infrared spectroscopy [facility] Cellular material [Mass/mass] of Stone by Estimated [facility] Cholesterol [Mass/vo lume] in Serum or Plasma [facility] Cystine measurement [facility] Determination of nat culus chemical composition [facility] Evaluation procedure [facility] Fungus identified in Unspecified specimen by Culture [facility] Hydroxyapatite [Ener gy Difference] in 24 hour Urine [facility] Laboratory data interpretation [facility] Newberyite/Total in [facility] Patient Education Know your Meds [facility] Work Phone: Patient referral [facility] Work Phone: Specimen source subj ect [Type] [facility] Triamterene measurement [facility] Triple phosphate/Tot al in [facility] Immunizations Immunization Date Immunization Notes Care Provider [facility] 06-06-2023 Influenza, High-dose Seasonal, Quadrivalent, Preservative Free Shaikh Lexi WORKMAN Work Phone: [facility] 06-06-2023 influenza virus vacc ine, unspecified formulation Tereza Fine MA [facility] 05-14-2022 influenza virus vacc ine, unspecified formulation Mekhi VERGARA [facility] 05-14-2022 Influenza, Seasonal, Quadrivalent, Adjuvanted Shaikh Lexi WORKMAN Work Phone: [facility] 06-26-2021 SARS-CoV-2 (COVID-19 ) mRNA-1273 vaccine Mekhi VERGARA [facility] 04-06-2021 influenza virus vacc ine, unspecified formulation Iraida James [facility] 03-28-2021 influenza virus vacc ine, unspecified formulation Mekhi VERGARA [facility] 03-28-2021 Influenza, injectabl e, Madin Appleton Canine Kidney, preservative free, quadrivalent Shaikh Lexi WORKMAN Work Phone: [facility] 02-04-2021 influenza virus vacc ine, unspecified formulation Iraida James [facility] 09-12-2020 SARS-CoV-2 (COVID-19 ) mRNA-1273 vaccine Mekhi VERGARA [facility] 08-14-2020 SARS-CoV-2 (COVID-19 ) mRNA-1273 vaccine Mekhi VERGARA [facility] 05-25-2020 pneumococcal polysaccharide vaccine, 23 valent Mekhi VERGARA [facility] 05-25-2020 zoster vaccine recombinant Mekhidominique VERGARA [facility] 02-25-2020 influenza virus vacc ine, unspecified formulation Mekhi VERGARA [facility] 02-25-2020 influenza, injectabl e, quadrivalent, preservative free Shaikh Lexi WORKMAN Work Phone: [facility] 02-25-2020 zoster vaccine recombinant Mekhidominique VERGARA [facility] 05-11-2019 tetanus toxoid, redu nimesh diphtheria toxoid, and acellular pertussis vaccine, adsorbed Mekhi VERGARA [facility] 03-23-2019 influenza virus vacc ine, unspecified formulation Mekhi VERGARA [facility] 03-23-2019 pneumococcal conjuga te vaccine, 13 valent Mekhi VERGARA [facility] 03-23-2019 Seasonal trivalent influenza vaccine, adjuvanted, preservative free Shaikh Lexi WORKMAN Work Phone: [facility] 04-30-2018 influenza virus vacc ine, unspecified formulation Mekhi VERGARA [facility] 04-30-2018 Seasonal trivalent influenza vaccine, adjuvanted, preservative free Shaikh Lexi WORKMAN Work Phone: [facility] 02-13-2017 influenza virus vacc ine, unspecified formulation Mekhi VERGARA [facility] 02-13-2017 Seasonal trivalent influenza vaccine, adjuvanted, preservative free Shaikh Lexi WORKMAN Work Phone: [facility] 04-19-2015 influenza virus vacc ine, unspecified formulation Mekhi VERGARA [facility] 04-19-2015 influenza, seasonal, injectable Shaikh Lexi WORKMAN Work Phone: [facility] 04-19-2015 pneumococcal polysaccharide vaccine, 23 valent Mekhi VERGARA [facility] 04-13-2015 influenza virus vacc ine, unspecified formulation Mekhi VERGARA [facility] 04-13-2015 influenza, high dose seasonal, preservative-free Shaikh Lexi WORKMAN Work Phone: [facility] 04-22-2007 influenza virus vacc ine, whole virus Shaikh Lexi WORKMAN Work Phone: [facility] 04-22-2007 influenza, whole Mekhi THOMAS [facility] Payers Date Payer Category Payer Self-pay 2002 Private Health Insurance [id number] 2002 Unknown 2001 Medicare [id number] 1959 Medicare [id number] 1959 Unknown [id number] 1936 Unknown [id number] 2.16.84 0.1.646894.3.579.2.593 1936 Unknown [id number] 2.16.84 0.1.969098.3.579.2.593 1936 Unknown [id number] 2.16.84 0.1.863371.3.579.2.593 1936 Unknown [id number] 2.16.84 0.1.227350.3.579.2.593 1936 Unknown [id number] 2.16.84 0.1.188768.3.579.2.593 1936 Unknown [id number] 2.16.84 0.1.356436.3.579.2.593 1936 Unknown [id number] 2.16.84 0.1.888116.3.579.2.593 1936 Unknown [id number] 2.16.84 0.1.057765.3.579.2.593 1936 Unknown [id number] 2.16.84 0.1.040847.3.579.2.593 1936 Unknown [id number] 2.16.84 0.1.659643.3.579.2.593 1936 Unknown [id number] 2.16.84 0.1.345227.3.579.2.593 1936 Unknown [id number] 2.16.84 0.1.593804.3.579.2.593 1936 Unknown [id number] 2.16.84 0.1.921482.3.579.2.593 1936 Unknown [id number] 2.16.84 0.1.808827.3.579.2.593 1936 Unknown [id number] 2.16.84 0.1.427901.3.579.2.593 1936 Unknown [id number] 2.16.84 0.1.457539.3.579.2.593 1936 Unknown [id number] 2.16.84 0.1.471173.3.579.2.593 1936 Unknown [id number] 2.16.84 0.1.176466.3.579.2.593 1936 Unknown [id number] 2.16.84 0.1.899978.3.579.2.593 1936 Unknown [id number] 2.16.84 0.1.490557.3.579.2.593 1936 Unknown [id number] 2.16.84 0.1.350858.3.579.2.593 1936 Unknown [id number] 2.16.84 0.1.482930.3.579.2.593 1936 Unknown [id number] 2.16.84 0.1.267405.3.579.2.593 1936 Unknown [id number] 2.16.84 0.1.699725.3.579.2.593 1936 Unknown [id number] 2.16.84 0.1.406805.3.579.2.593 1936 Unknown [id number] 2.16.84 0.1.328254.3.579.2.593 1936 Unknown [id number] 2.16. 840.1.549354.3.579.2.196 1936 Unknown [id number] 2.16. 840.1.548149.3.579.2.196 1936 Unknown [id number] 2.16. 840.1.322863.3.579.2.196 1936 Unknown [id number] 2.16. 840.1.945744.3.579.2.196 1936 Unknown [id number] 2.16. 840.1.526479.3.579.2.196 1936 Unknown [id number] 2.16. 840.1.982342.3.579.2.196 1936 Unknown [id number] 2.16.84 0.1.219290.3.579.2.1258 1936 Unknown [id number] 2.16.840 .1.172802.3.579.2.1258 1936 Unknown [id number] 2.16.840 .1.943743.3.579.2.1258 1936 Unknown [id number] 2.16.840 .1.930029.3.579.2.1258 1936 Unknown [id number] 2.16.840 .1.512970.3.579.2.1258 1936 Unknown [id number] 2.16.840. 1.338265.3.579.2.1258 1936 Unknown [id number] 2.16.8 40.1.929769.3.579.2. 1936 Unknown [id number] 2.16.8 40.1.131897.3.579.2.7 1936 Unknown [id number] 2.16.8 40.1.996976.3.579.2. 1936 Unknown [id number] 2.16.8 40.1.311237.3.579.2.72 1936 Unknown [id number] 2.16.8 40.1.899637.3.579.2. 1936 Unknown [id number] 2.16.8 40.1.760033.3.579.2. 1936 Unknown [id number] 2.16.8 40.1.616251.3.579.2.72 Unknown [id number] 2.16.8 40.1.033252.3.579.2.531 Social History Date Type Detail Facility Start: 10-09-2021 End: 08-06-2024 Tobacco smoking status Never smoked tobacco (finding) [facility] Start: 07-28-2023 Sex Assigned At Male F [facility] Tobacco smoking status Never [facility] [place] Start: 04-17-2022 End: 06-16-2023 Tobacco use and exposure Smokeless tobacco non-user [facility] Start: 04-17-2022 End: 05-10-2022 Alcohol intake Current drinker of alcohol (finding) [facility] Start: 04-17-2022 Alcohol Comment very occasionally [facility] Start: 1935 Sex Assigned At Not on file C [facility] Start: 04-07-2022 End: 05-10-2022 Exposure to SARS-CoV-2 (event) Not sure [facility] Start: 05-10-2022 Alcohol Comment Rarely [facility] Start: 07-28-2023 Alcohol intake Lifetime non-d abiel (finding) [facility] Start: 07-28-2023 History of Social function [facility] Start: 06-16-2023 Alcohol Comment caffeine: 1-2 cups per day coffee, soda [facility] Start: 08-06-2024 Sex Male (finding) [facility] Start: 1935 Sex Assigned At Male F [facility] Goals Date Patient Goal Desired Activity /State Functional Status Date Assessment Result Facility 06-29-2024 Functional Status N/A [facility] 08-19-2023 Functional Status N/A [facility] 06-20-2023 Functional Status N/A [facility] 12-23-2022 Functional Status N/A [facility] 08-01-2022 Functional Status N/A [facility] 04-22-2022 Functional Status N/A [facility] Clinical Notes 10-09-2021 to 08-17-2024 Telephone Encounter - Maria Luisa Garcia RN - 05/16/2022 10:17 AM Darline Arriaga RN - 05/10/2022 2:13 PM Sindi Downing PA-C - 05/10/2022 10:50 AM EDTPatient Instructions Note Date & Type Note Facility 08-17-2024 Note Patient Education Urology Kidney Stones Kidney stones are rock-like masses that form inside of the kidneys. Kidneys are organs that make pee (urine). A kidney stone may move into other parts of the urinary tract, including: ??? The tubes that connect the kidneys to the bladder (ureters). ??? The bladder. ??? The tube that carries urine out of the body (urethra). Kidney stones can cause very bad pain and can block the flow of pee. The stone usually leaves your body through your pee. A doctor may need to take out the stone. What are the causes? Kidney stones may be caused by: ??? Too much calcium in the body. This may be caused by too much parathyroid hormone in the blood. ??? Uric acid crystals in the bladder. The body makes uric acid when you eat certain foods. ??? Narrowing of one or both of the ureters. ??? A kidney blockage that you were born with. ??? Past surgery on the kidney or the ureters. What increases the risk? You are more likely to develop this condition if: ??? You have had a kidney stone in the past. ??? Other people in your family have had kidney stones. ??? You do not drink enough water. ??? You eat a diet that is high in protein, salt (sodium), or sugar. ??? You are very overweight (obese). What are the signs or symptoms? Symptoms of a kidney stone may include: ??? Pain in the side of the belly, right below the ribs. Pain usually spreads to the groin. ??? Needing to pee often or right away. ??? Pain when peeing. ??? Blood in your pee. ??? Feeling like you may vomit (nauseous). ??? Vomiting. ??? Fever and chills. How is this treated? Treatment depends on the size, location, and makeup of the kidney stones. The stones will often pass out of the body when you pee. You may need to: ??? Drink more fluid to help pass the stone. ? In some cases, you may be given fluids through an IV tube at the hospital. ??? Take medicine for pain. ??? Change your diet to help keep kidney stones from coming back. Sometimes, you may need: ??? A procedure to break up kidney stones using a beam of light (laser) or shock waves. ??? Surgery to remove the kidney stones. Follow these instructions at home: Medicines ??? Take ubus-wfo-utqpcrp and prescription medicines only as told by your doctor. ??? Ask your doctor if the medicine prescribed to you requires you to avoid driving or using machinery. Eating and drinking ??? Drink enough fluid to keep your pee pale yellow. ? You may be told to drink at least 8?10 glasses of water each day. This will help you pass the stone. ??? If told by your doctor, change your diet. You may be told to: ? Limit how much salt you eat. ? Eat more fruits and vegetables. ? Limit how much meat, poultry, fish, and eggs you eat. ??? Follow instructions from your doctor about what you may eat and drink. General instructions ??? Collect pee samples as told by your doctor. You may need to collect a pee sample: ? 24 hours after a stone comes out. ? 8?12 weeks after a stone comes out, and every 6?12 months after that. ??? Strain your pee every time you pee. Use the strainer that your doctor recommends. ??? Do not throw out the stone. Keep it so that it can be tested by your doctor. ??? Keep all follow-up visits. You may need X-rays and ultrasounds to make sure the stone has come out. How is this prevented? To prevent another kidney stone: ??? Drink enough fluid to keep your pee pale yellow. This is the best way to prevent kidney stones. ??? Eat healthy foods. ??? Avoid certain foods as told by your doctor. You may be told to eat less protein. ??? Stay at a healthy weight. Where to find more information ??? National Kidney Foundation (NKF): kidney.org ??? Urology Care Foundation (UCF): urologyhealth.org Contact a doctor if: ??? You have pain that gets worse or does not get better with medicine. Get help right away if: ??? You have a fever or chills. ??? You get very bad pain. ??? You get new pain in your belly. ??? You faint. ??? You cannot pee. This information is not intended to replace advice given to you by your health care provider. Make sure you discuss any questions you have with your health care provider. Document Revised: 02/14/2023 Document Reviewed: 02/14/2023 [employer] Patient Education ? 2023 [employer]. [facility] 06-29-2024 Hospital Discharge instructions Patient Education 06/29/2024 [...] including vitamins, herbs, eye drops, creams, and zanc-scz-evfuhgx medicines. Any problems you or family members [...] health care provider tells you to. Taking kmcu-zme-mxwnepm medicines, vitamins, herbs, and supplements. General instructions [...] provider. Document Revised: 05/26/2023 Document Reviewed: 05/26/2023 Elsevier Patient Education 2023 [employer] Follow Up Care 05/24/2024 12:01:26 With:HARPAL WORKMAN, Olman Richardson, URL Address: [address] [place] [id number] When: Unknown [facility] 06-29-2024 Note Patient Education Urology Ureteroscopy Ureteroscopy [...] including vitamins, herbs, eye drops, creams, and mbpy-cnn-zwjnvdb medicines. ??? Any problems you or family [...] care provider tells you to. ??? Taking lbnm-eba-xiaqldk medicines, vitamins, herbs, and supplements. General instructions [...] after the procedure? (more content not included)... [facility] 08-28-2023 Note PR Cardiology - [facility] Subjective [...] February 2022 he was admitted to the [facility] with palpitations and chest pain. He was [...] for gastroenteritis. He is currently at the [facility] for rehab. C/o back pain - he [...] by oral route (more content not included)... [facility] 08-28-2023 Note Telephone visit for 1 year follow up s/p Watchman implant. He was just discharged from [facility] on Friday for nausea/vomiting and acute hypokalemia. Denies chest pain and SOB. Says his BP has been good at PT. Review of Systems Cardiovascular: Positive for leg swelling. Musculoskeletal: Positive for arthritis, back pain and muscle weakness. Neurological: Positive for weakness. All other systems reviewed and are negative. [facility] 08-25-2023 Note [id number] [facility] 08-19-2023 Hospital Discharge instructions [...] With:Mekhi VERGARA Address: [facility] [address] , [place] [address]- Business (1) When: Unknown Comments:Office will call to schedule follow up [facility] 08-19-2023 Note Custom Cystoscopy ? Voiding [...] a fever over 100 degrees. [facility] 08-19-2023 Evaluation + Plan note Diagnostic Tests PendingUroVysion Fish and Urine Cyto ([facility]) 08/19/23 [facility] 06-20-2023 Evaluation + Plan note Diagnostic Tests PendingPSA Total 06/20/23 [facility] [place] 06-20-2023 Hospital Discharge instructions Patient [...] Follow these instructions at home: Medicines Take voae-bvw-uuqvnoz and prescription medicines only as told by [...] important. Where to find more information National [place] of Diabetes and Digestive and Kidney Diseases: [...] depends on the type of prostatitis. Take jwcy-nnr-zcglvvp and prescription medicines only as told by [...] provider. Document Revised: 07/28/2020 Document Reviewed: 07/28/2020 LATTO Patient Education 2022 MAG Interactive. Follow Up Care 12/23/2022 13:48:47 With:URSULA WORKMAN, Mekhi Oh, URL Address: [address] [place] [id number]- When: Unknown [facility] 03-07-2023 Note Watchman implant 08/08 Continue ASA for lifelong, may stop plavix being that > 6 months since implantation No need for Antibiotic prophylaxis at this time [facility] 03-07-2023 Note Coronary artery dise ase is stable Continue GDMT- ASA, lipitor, metoprolol continue risk factor modifications- heart healthy diet, regular exercise as tolerated and continue all medications. [facility] 03-07-2023 Note Hypertension is well controlled Continue all meds [facility] 03-07-2023 Note Continue lipitor [facility] 03-07-2023 Note [id number] VASc= 4 No anticoagulation s/p watchman implantation Rate remains controlled metoprolol and diltiazem [facility] 03-07-2023 Note Patient here for 6 m o follow up s/p Watchman implant. Doing ok from cardiac standpoint. Denies chest pain, SOB, and palpitations. Still on Plavix as of now. Review of Systems Cardiovascular: Positive for leg swelling. Hematologic/Lymphatic: Negative. Musculoskeletal: Positive for arthritis, back pain, joint pain and myalgias. All other systems reviewed and are negative. [facility] 03-07-2023 Note UTP CARDIOLOGY PROGR ESS [...] tablet 40 mg in the morning. HYDROcodone-acetaminophen ([place]) 5-325 mg tablet Take 1 tablet by [...] Global left ventricul (more content not included)... [facility] 12-23-2022 Hospital Discharge instructions Patient Education [...] if anything looks unusual. Men with a uokwoi-qalc-ffmzye risk for skin cancer may want to see a claim benefit specialist (junior sales representative) for an annual body check. What are the benefits of screening? Cancer screening is done to look for cancer in the very early stages, before it spreads and becomes harder to treat and before you would start to notice symptoms. Finding cancer early improves the chances of successful treatment. It may save your life. Where to find more information [employer]: www.cancer.org Centers for Disease Control and Prevention: www.cdc.gov National Cancer [place]: www.cancer.gov Contact a health care provider if: [...] provider. Document Revised: 11/19/2021 Document Reviewed: 05/19/2020 LATTO Patient Education 2022 MAG Interactive. Follow Up Care 04/22/2022 16:39:16 With:URSULA WORKMAN, Mekhi Oh, URL Address: [facility] [address] , [place] [address]- When: Unknown [facility] 10-24-2022 Note CONSULTATION CONSULTATION DATE: 10/24/2022 TO: [...] which is stable. MEDICATION: Current medication includes [place] 5 mg q.i.d. p.r.n. He reports it does improve his pain symptoms, improving his quality of life, level of functioning and his sleep pattern. He denies any side effects. He is also on Lyrica 75 mg at h.s., baclofen 10 mg at h.s. and Tylenol Extra Strength six pills a day, which he takes concomitantly with [place]. EXAM: Notable for patient having left sided [...] our patients to inform us about any tyvt-igz-ajswuty medications or herbal remedies/nutritional supplements/alternative remedies. 2. [...] options with their primary care provider. [facility] 10-18-2022 Note PR Cardiology - [facility] Subjective [...] February 2022 he was admitted to [facility] with palpitations and chest pain. He was [...] oriented to perso (more content not included)... [facility] 10-18-2022 Note Patient here for fol low up KINZA s/p Watchman device implant. Denies chest pain and SOB. Doing very well. Review of Systems Cardiovascular: Positive for leg swelling. Hematologic/Lymphatic: Negative. Musculoskeletal: Positive for arthritis, back pain, joint pain and myalgias. All other systems reviewed and are negative. [facility] 09-11-2022 Note PR Cardiology - [facility] Subjective [...] February 2022 he was admitted to the [facility] with palpitations and chest pain. He was [...] Right lower le (more content not included)... [facility] 09-11-2022 Note Patient here for 2 w tangirnaq follow up Watchman implant. Says he feels good. Denies chest pain and SOB. Review of Systems Cardiovascular: Positive for leg swelling. Hematologic/Lymphatic: Negative. Musculoskeletal: Positive for arthritis, back pain and myalgias. All other systems reviewed and are negative. [facility] 08-06-2022 Hospital Discharge instructions Patient Education [...] [facility] [address], [place] [address]- Business (1) When: Unknown Comments:Office will call to schedule follow up [facility] 07-30-2022 Note CONSULTATION CONSULTATION DATE: 07/30/2022 [...] the patient's pain. The patient currently takes [place] 5/325 on a q.i.d. 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 IMPRESSION: Current working diagnosis on the [...] like to maintain. CC: Dr. Elliott [facility] 06-25-2022 Note CONSULTATION CONSULTATION DATE: 06/25/2022 CHIEF [...] patient currently takes Lyrica 75 mg b.i.d., [place] 5/325 q.i.d., baclofen 10 mg q.h.s. The [...] like to proceed. CC: Dr. Elliott [facility] 05-17-2022 Note HNO ID: [id number] Author: Minesh Levy APRN.MOBILE ENGINEER Service: ? Author Type: Nurse Digital Marketing Project Manager Type: Anesthesia Procedure Notes Filed: 05/17/2022 11:19 [...] Orientation: Left Location: Hand SIGNATURE: Minesh Levy APRN.MOBILE ENGINEER PATIENT NAME: Ben Guadalupe DATE: May 17, 2022 TIME: 11:17 AM CSN: [id number] [facility] 05-17-2022 Note HNO ID: [id number] Author: Minesh Levy APRN.MOBILE ENGINEER Service: ? Author Type: Nurse Digital Marketing Project Manager Type: Anesthesia Procedure Notes Filed: 05/17/2022 10:39 AM Note Text: ANESTHESIOLOGY PROCEDURE NOTE Airway General Information Procedure Start Time/Medication Administration: 05/17/2022 10:11 AM Patient location during procedure: OR Timeout Performed Pre-procedure: timeout performed Consent Obtained: Yes Patient identity confirmed: arm band and patient Staffing Anesthesiologist: Kandice Guadalupe MD MOBILE ENGINEER: Minesh Levy APRN.MOBILE ENGINEER Performed by: IGNACIO Indications and Patient Condition Indications for airway management: anesthesia Preoxygenated: yes anesthesia circuit Patient position: sniffing Method: asleep Difficult Mask: No Final Airway Details Final airway type: supraglottic airway Number of attempts at approach: 1 Final Supraglottic Airway: i-gel Size 5 Seal Adequate: yes Failed airway: no Unrecognized esophageal intubation: no Airway not difficult SIGNATURE: Minesh Levy APRN.MOBILE ENGINEER PATIENT NAME: Ben Guadalupe DATE: May 17, 2022 TIME: 10:38 AM CSN: [id number] [facility] 05-17-2022 Note HNO ID: [id number] Author: Shruthi Valdez RN Service: Nursing Author Type: Registered Nurse Type: Nursing Progress Note Filed: 05/17/2022 10:04 AM Note Text: Other: Dr. Ruiz and Dr. Guadalupe aware of K+ of 3.0. Awaiting orders. [facility] 05-16-2022 Miscellaneous Notes Attempt to call patient to review prep for surgery tomorrow, no answer, no voicemail available. documented in this encounter [facility] 05-10-2022 Note HNO ID: [id number] Author: Donna Arriaga RN Service: ? Author [...] Time spent on patient education: 20 minutes [facility] 05-10-2022 History of Present illness Narrative [...] education: 20 minutes documented in this encounter [facility] 05-10-2022 Note Education (KADIE) BEN GUADALUPE ([id number]) 1935 M Date Time Provider Department 05/10/22 [...] Encounter Status:Closed by DONNA ARRIAGA on 05/10/22 [facility] 05-10-2022 History and physical note HISTORY [...] Chronic kidney disease, stage 4 (severe) ([facility]) 12/20/2021 Chronic obstructive pulmonary disease ([facility]) 11/27/2021 Deep vein thrombosis (DVT) ([facility]) 1989 LLE- unprovoked Dementia in other diseases classified elsewhere, unspecified severity, without behavioral disturbance, psychotic disturbance, mood disturbance, and anxiety ([facility]) 11/27/2021 Diabetes ([facility]) Diabetes mellitus ([facility]) 11/01/2021 Essential (primary) hypertension 08/13/2017 Gastroesophageal reflux disease with esophagitis 05/10/2022 History of DVT (deep vein thrombosis) 05/10/2022 History of primary malignant neoplasm of urinary bladder 04/22/2022 History of prostate cancer 08/01/2015 Hypothyroidism unspecified 07/10/2021 Intracranial hemorrhage ([facility]) 05/10/2022 Neuropathy PAF (paroxysmal atrial fibrillation) ([facility]) 03/18/2022 Parkinson's disease ([facility]) PONV (postoperative nausea and vomiting) Radiculopathy, cervical [...] Shashi [facility] 03/19/22 Denies any history of ID, CHF,PE, arrhythmias or murmurs. Denies CP, SOB, [...] 442 QTC Calculation ([place]ett) 497 Calculated P [place] 37 Calculated R [place] 64 Calculated T [place] -10 Impression NORMAL SINUS RHYTHM COMPLETE RIGHT BUNDLE BRANCH BLOCK INFERIOR T WAVE ABNORMALITY ABNORMAL ECG No results found for this or any previous visit (from the past 78713 hour(s)). OSH Cardiovascular testing ABIs 10/11/2021: Normal [...] psychotic disturbance, mood disturbance, and anxiety ([facility]) Assessment: stable on Donepezil -A&O x3 Intracranial [...] FITCH 03/19/22 PAF (paroxysmal atrial fibrillation) ([facility]) Assessment: admitted to hospital 02/2022 with chest [...] Chronic kidney disease, stage 4 (severe) ([facility]) Assessment: h/o DAVID 02/2022 during admission for [...] TIME: 1:37 PM documented in this encounter [facility] 05-09-2022 Instructions Afia Downing PA-C - 05/09/2022 12:36 PM EDT PATIENT PREOPERATIVE INSTRUCTIONS Lorraine Wilcox* has scheduled you for your procedure at this surgery center: [facility] Scheduling Office: [phone] --[address] [place] [address]. Please read below carefully for your personalized [...] or other anticoagulants without consulting with your swing grinder or prescribing physician. - Stop Vitamin E, [...] Procedures: - YOU MUST HAVE A RESPONSIBLE COAL LOADER TAKE YOU HOME. A WIND FARM DESIGNER OR FUSE ASSEMBLER CANNOT BE MADE A RESPONSIBLE COAL LOADER. - We recommend that a responsible person [...] call the Friday before. Your surgeon s hot dog vender will tell you what time to call the office. - If you have not reached the departmental hot dog vender by 5 P.M., call [phone] after 5 P.M. the day before your surgery. Please be aware that emergency situations arise, which may delay or change your surgical time. If this happens, we will notify you as soon as possible and regret any inconvenience. If you already have an Advance Directive, please fax a copy to [phone] or email to for it to be [...] Afia Downing PA-C documented in this encounter [facility] 04-25-2022 Miscellaneous Notes The Patient's granddaughter ( Milly Guadalupe) is calling to confirm surgery date, get all testing scheduled for her grandfather. Please call her at : [phone] at 11:30 AM or later, as she is at an appointment now. Thank you. documented in this encounter [facility] 04-24-2022 Miscellaneous Notes SPECIALTY CARE COORDINATION FOLLOW-UP NOTE Message left Pt to call in to discuss setting up surgery Offered 05/17/22 surgical date Any pre-operative business date within 30 days of surgical date Call back number left Signature Marika Zuñiga RN April 24, 2022 documented in this encounter [facility] 04-22-2022 Hospital Discharge instructions Patient Education 04/22/2022 [...] who: Are older than age 65. Are -Irish. Are obese. Have a family history of [...] cells. Follow these instructions at home: Take jnmb-ntt-bxsrsgk and prescription medicines only as told by [...] 06/23/2006 Document Revised: 06/05/2018 Document Reviewed: 03/03/2017 LATTO Patient Education 2020 MAG Interactive. Follow Up Care 02/25/2022 17:01:47 With:URSULA WORKMAN, Mekhi Oh, URL Address: [facility] [address] [place] [address]- [phone] When:10/21/2022 [facility] 04-17-2022 History and physical note COLORECTAL [...] closed Resting tone: NORMAL Squeeze tone: NORMAL Boy'S Adviser present: Yes Anoscopy: The patient was placed [...] treatment plan: high documented in this encounter [facility] 04-11-2022 Note CONSULTATION PROCEDURE DATE: 04/11/2022 PREOPERATIVE [...] be followed up in the office. [facility] 04-11-2022 Note CONSULTATION CONSULTATION DATE: 04/11/2022 HISTORY [...] shoulders to his hands and is losing dampproofer on objects with his hands. His lower back feels tight, achy and spasmodic. He is having increasing bilateral lower extremity pain. Activities that aggravate his pain are standing, walking, lying, sitting and any physical activity. The use of medication, in addition to heat, decreases his pain. Medications include Lyrica 75 mg b.i.d., baclofen 10 mg q.h.s., [place] 5/325 q.i. d. and a multivitamin regimen. [...] Lyrica and other medications well with no CHRONOMETER REPAIRER side effects. Patient agrees with the plan of care, will be followed up post procedure. [facility] 02-14-2022 Note CONSULTATION PROCEDURE DATE: 02/14/2022 PREOPERATIVE [...] be followed up in the clinic. [facility] 02-14-2022 Note CONSULTATION CONSULTATION DATE: 02/14/2022 HISTORY [...] and he was in obvious distress. His [place] was increased to 5/325 q.i.d. at that time, which has been helpful. The patient states since the introduction of the Lyrica to his regimen that his [place] is back down to t.i.d. The intent [...] of this medication in addition to the [place]. Patient agrees with the plan of care and will be seen in eight weeks time unless otherwise indicated. [facility] 01-10-2022 Note CONSULTATION CONSULTATION DATE: 01/10/2022 HISTORY [...] at home. Medication includes at this time [place] 5/325 t.i.d., baclofen 10 mg daily and [...] the patient and noting his distress, his [place] 5/325 will be increased to four times a day. He will be started on Lyrica 50 mg b.i.d. 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 He will receive bilateral lumbar trigger point injections in the office today as well. He will return to the clinic in six weeks' time to re-evaluate his pain pattern and efficacy of the Lyrica. Patient does agree. [facility] 01-10-2022 Note CONSULTATION PROCEDURE DATE: 01/30/2022 PREOPERATIVE [...] procedure well with no overt complications. [facility] 11-29-2021 Note CONSULTATION PROCEDURE DATE: 11/29/2021 PREOPERATIVE [...] will be followed up in the clinic. [facility] Signed and Approved by: CALVIN MROEJON . 12/06/2021 16:01:00 [facility] 11-29-2021 Note CONSULTATION CONSULTATION DATE: 11/29/2021 HISTORY [...] lower lumbar area. It is aggravated by gut dropper and evening hours, standing, walking and physical activity. He does use heat daily which is helpful, in addition to Vicks VapoRub. Medications include baclofen 10 mg q.h.s., [place] 5/325 t.i.d. and a multivitamin regimen. The [...] degenerative disc. PLAN: A refill for his [place] 5/325 t.i.d. will be sent to the pharmacy. Patient will receive bilateral lumbar trigger point injections, which he agrees to receive here in the clinic. We will maintain his medications at the current regimen. He is to increase the amount of frequency of heat application and menthol heat rub. We will see the patient in six weeks' time unless otherwise indicated. [facility] Signed and Approved by: CALVIN MOREJON . 12/06/2021 16:01:[address] [facility] 11-21-2021 Note OPERATIVE NOTE OPERATION DATE: [...] in good condition. CC: Shaikh Lexi M.D. [facility] Signed and Approved by: DR YENNI STANLEY . 11/28/2021 10:45:[address] [facility] 10-09-2021 Hospital Discharge instructions Patient Education [...] 03/19/2005 Document Revised: 10/08/2018 Document Reviewed: 10/08/2018 LATTO Patient Education [employer]. Follow Up Care 10/01/2021 07:48:54 With:Iraida James CNP Address: When:3 months only if needed [facility] Evaluation + Plan note Future Appointments Appointment Date:10/16/2021 02:20:00 PM Scheduled Provider: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 MD [facility] Appointment Type: [facility] Evaluation + Plan note Future Appointments Appointment Date:04/30/2022 01:40:00 PM Scheduled Provider: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 MD Location: [place] Appointment Type: 15 Appointment Date:10/21/2022 03:15:00 PM Scheduled Provider:Mekhi VERGARA MD Location:[facility] [place] Appointment Type:URO Office Visit Diagnostic Tests PendingPSA Total 04/22/22 [facility] Evaluation + Plan note Future Appointments Appointment Date:10/21/2022 03:15:00 PM Scheduled Provider:Mekhi VERGARA MD Location:[facility] Appointment Type:URO Office Visit Diagnostic Tests PendingUroVysion Fish and Urine Cyto ([facility]) 08/06/22 [facility] Evaluation + Plan note Future Appointments Appointment Date:06/23/2023 03:00:00 PM Scheduled Provider:Mekhi VERGARA MD Location:[facility] Appointment Type:URO Office Visit Diagnostic Tests PendingPSA Total 12/23/22 [facility] Evaluation note Diagnosis Fourth degree hemorrhoids- Primary Unspecified hemorrhoids with other complication [facility] Pre-op evaluation- Primary Preoperative examination, [...] Coronary atherosclerosis of unspecified type of vessel, telida or graft PAF (paroxysmal atrial fibrillation) (HCC) [...] with other complication [facility] Diagnosis Chronic venous insufficiency of lower extremity Chronic heart failure with preserved ejection fraction (CMS/HCC) Chronic bilateral low back pain with bilateral sciatica documented in this encounter [facility]* Diagnosis Chronic venous insufficiency of lower extremity Chronic heart failure with preserved ejection fraction (CMS/HCC) documented in this encounter [facility] HealthcareEvaluation noteNo assessment information availableCity Hospital Work Phone: Hospital course Narrative No data available for this section [facility] Hospital Discharge instructions No data available for this section General Surgery [place] note No data available for this section [facility] Summary Purpose Family History No Family History Records Found Relationship Condition Age at Onset Recorded Date/T dominik brother Malignant neoplasm Unknown father Unknown mother Heart disease Unknown Unknown Advance Directives No Advanced Directives Records Found Advance Directive Response Recorded Date/ Time Advance Directives No October 30 9:42am Chief Complaint and Reason for Visit Chief Complaint Admit Date Bladder Stone, Ureteral Stone August 062024 10:30am Additional Source Comments (unrecognized sect ion and content) No Status Records FoundNo Status Records FoundNo Status Records FoundNo Status Records FoundNo Status Records FoundNo Status Records FoundNo Status Records FoundNo Status Records Found INFORMATION SOURCE (unrecogn ized section and content) DATE CREATED AUTHOR 12/31/2017 [facility] DATE CREATED AUTHOR AUTHOR'S ORGANIZ ATION 05/31/2022 [facility] DATE CREATED AUTHOR AUTHOR'S ORGANIZ ATION 11/02/2022 [facility] DATE CREATED AUTHOR AUTHOR'S ORGANIZ ATION 06/20/2023 [facility] DATE CREATED AUTHOR AUTHOR'S ORGANIZ ATION 07/29/2023 [facility] DATE CREATED AUTHOR AUTHOR'S ORGANIZ ATION 09/05/[address] [facility] DATE CREATED AUTHOR AUTHOR'S ORGANIZ ATION 08/18/2024 [facility] DATE CREATED AUTHOR AUTHOR'S ORGANIZ ATION 08/18/2024 [facility] Source Comments (unrecognize d section and content) In the event this informatio n is protected by the Federal Confidentiality of Alcohol and Drug Abuse Patient Records regulations: The Federal rules restrict any use of the information to criminally investigate or prosecute any alcohol or drug abuse patient.[facility] the event this information is protected by the Federal Confidentiality of Alcohol and Drug Abuse Patient Records regulations: The Federal rules restrict any use of the information to criminally investigate or prosecute any alcohol or drug abuse patient.[facility] System[facility] the event this information is protected by the Federal Confidentiality of Alcohol and Drug Abuse Patient Records regulations: The Federal rules restrict any use of the information to criminally investigate or prosecute any alcohol or drug abuse patient.[facility] System[facility] the event this information is protected by the Federal Confidentiality of Alcohol and Drug Abuse Patient Records regulations: The Federal rules restrict any use of the information to criminally investigate or prosecute any alcohol or drug abuse patient.[facility] System[facility] the event this information is protected by the Federal Confidentiality of Alcohol and Drug Abuse Patient Records regulations: The Federal rules restrict any use of the information to criminally investigate or prosecute any alcohol or drug abuse patient.[facility] System[facility] the event this information is protected by the Federal Confidentiality of Alcohol and Drug Abuse Patient Records regulations: The Federal rules restrict any use of the information to criminally investigate or prosecute any alcohol or drug abuse patient.[facility] Reason for Visit (unrecogniz ed section and content) Reason Comments New Reason Comments [employer] - Other Reason Comments Appointment Reason Comments Pre-Op Visit Reason Comments Patient Education Reason Onset Date Comments Med Refill 03/09/2024 Care Teams (unrecognized sec tion and content) Seafood Manager Relationship Specialty Start Date End Date Franky Veronica (Fax) PCP - General Internal Medicine 06/16/12 Seafood Manager Relationship Specialty Start Date End Date Franky Veronica (Fax) PCP - General Internal Medicine 06/16/12 Seafood Manager Relationship Specialty Start Date End Date Franky Veronica (Fax) PCP - General Internal Medicine 06/16/12 Seafood Manager Relationship Specialty Start Date End Date Franky Veronica (Fax) PCP - General Internal Medicine 06/16/12 Seafood Manager Relationship Specialty Start Date End Date Franky Veronica (Fax) PCP - General Internal Medicine 06/16/12 Seafood Manager Relationship Specialty Start Date End Date Shaikh Elliott MD PCP - General Internal Medicine 05/07/23 Seafood Manager Relationship Specialty Start Date End Date Shaikh Elliott MD PCP - General Internal Medicine 05/07/23 Seafood Manager Relationship Specialty Start Date End Date Shaikh Elliott MD PCP - General Internal Medicine 05/07/23 Team Status: Active Member Role Status Dates PHYSICIAN NO FAMILY Primary Care Provider Active Team Status: Active Member Role Status Dates Franky Veronica MD Primary Care Provider Active Start: May 23, 2024 End: May 28, 2024 Vignesh Hopson DO Attending Provider Active Sta rt: May 23, 2024 End: May 28, 2024 Liza Mark DO Referring Provider Active Star t: May 23, 2024 End: May 28, 2024 Team Status: Active Member Role Status Dates Franky Veronica MD Primary Care Provider Active Start: May 31, 2024 Vignesh Hopson DO Attending Provider Active Sta rt: May 31, 2024 Team Status: Inactive Member Role Status Dates Olman Aponte MD Attending Provider Active St art: August 06, 2024 End: August 06, 2024 PHYSICIAN NO FAMILY Primary Care Provider Active Start: August 06, 2024 End: August 06, 2024 FOR RECORDS PERTAINING TO PATIENTS WHO ARE [...] BE BASED ON THE PRIMARY CLINICAL RECORDS. [facility]. provides no warranty or guarantee of the accuracy or completeness of information in this document.
--- NOTE | 2024-08-18 12:55 | P.HP_ITS ---
HPI H&P: HPI History of Present Illness Chief complaint: GENERAL WEAKNESS, POSSIBLE PENILE INFECTION Narrative: Patient presented to the emergency room with increasing weakness. About 10 days ago he had a procedure to remove a fungus ball from his bladder and a stent after having a stent placed for kidney stones. Just in the last 24 hours started having increasing symptoms like he was getting a bladder infection referred to ER, workup in the ER found patient to have pneumoperitoneum, will discuss case with urology they were recommended transfer to tertiary care facility we are awaiting transfer When I saw patient up in the medical surgical floor, resting comfortably in bed he is very hard of hearing, but appear to answer questions appropriately, no fever or chills at home no chest pain or shortness of breath just the fatigue and some pressure in lower abdomen Opioid HPI Opioid Management Most Recent Pain and Opioid Data: Last Pain Scale 0 08/18/24 12:27 08/18/24 Last Pain Intensity 10 09/16/23 11:39 09/16/23 Last Pain Assessment 08/18/24 12:27 Last ORT Total Score 0 08/18/24 11:42 08/18/24 Last ORT Risk Category Low Risk 08/18/24 11:42 08/18/24 Review of Systems ROS Status of ROS 10 or more systems reviewed and unremark able except as noted in history and below [facility] Medical History GERD without esophagitis ?K21.9 - Gastro-esophageal reflux disease without esophagitis (ICD-10) Hypothyroidism (acquired) ?E03.9 - Hypothyroidism, unspecified (ICD-10) DNR (do not resuscitate) ?Z66 - Do not resuscitate (ICD-10) Chronic indwelling Dodge catheter ?Z97.8 - Presence of other specified devices (ICD-10) E. coli UTI ?N39.0 - Urinary tract infection, site not specified (ICD-10) ?B96.20 - Unspecified Escherichia coli [E. coli] as the cause of diseases classified elsewhere (ICD-10) Yeast infection ?B37.9 - Candidiasis, unspecified (ICD-10) Cellulitis of scrotum ?N49.2 - Inflammatory disorders of scrotum (ICD-10) Decubitus ulcer of sacral area ?L89.159 - Pressure ulcer of sacral region, unspecified stage (ICD-10) DDD (degenerative disc disease), lumbar ?M51.36 - Other intervertebral disc degeneration, lumbar region (ICD-10) Lumbar radiculopathy ?M54.16 - Radiculopathy, lumbar region (ICD-10) Intractable low back pain ?M54.59 - Other low back pain (ICD-10) Unable to ambulate ?R26.2 - Difficulty in walking, not elsewhere classified (ICD-10) Chronic kidney disease ?N18.9 - Chronic kidney disease, unspecified (ICD-10) Spondylosis ?M47.9 - Spondylosis, unspecified (ICD-10) Radiculopathy ?M54.10 - Radiculopathy, site unspecified (ICD-10) Chronic diastolic heart failure ?I50.32 - Chronic diastolic (congestive) heart failure (ICD-10) Type 2 diabetes mellitus ?E11.9 - Type 2 diabetes mellitus without complications (ICD-10) Afib ?I48.91 - Unspecified atrial fibrillation (ICD-10) Spinal stenosis ?M48.00 - Spinal stenosis, site unspecified (ICD-10) Peripheral edema ?R60.0 - Localized edema (ICD-10) Hypertension ?I10 - Essential (primary) hypertension (ICD-10) Lumbar spondylosis ?M47.816 - Spondylosis without myelopathy or radiculopathy, lumbar region (ICD-10) Chronic low back pain ?M54.50 - Low back pain, unspecified (ICD-10) ?G89.29 - Other chronic pain (ICD-10) Anxiety ?F41.9 - Anxiety disorder, unspecified (ICD-10) Shortness of breath ?R06.02 - Shortness of breath (ICD-10) 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 ?R33.9 - Retention of urine, unspecified (ICD-10) Ambulatory dysfunction ?R26.2 - Difficulty in walking, not elsewhere classified (ICD-10) HLD (hyperlipidemia) ?E78.5 - Hyperlipidemia, unspecified (ICD-10) Depression with anxiety ?F41.8 - Other specified anxiety disorders (ICD-10) Acute hypokalemia ?E87.6 - Hypokalemia (ICD-10) Intractable low back pain ?M54.59 - Other low back pain (ICD-10) CKD stage 3 due to type 2 diabetes mellitus ?E11.22 - Type 2 diabetes mellitus with diabetic chronic kidney disease (ICD- 10) ?N18.30 - Chronic kidney disease, stage 3 unspecified (ICD-10) Lumbar stenosis with neurogenic claudication ?M48.062 - Spinal stenosis, lumbar region with neurogenic claudication (ICD- 10) Osteoarthritis of right knee ?M17.11 - Unilateral primary osteoarthritis, right knee (ICD-10) Chronic pain syndrome ?G89.4 - Chronic pain syndrome (ICD-10) Chronic prescription opiate use ?Z79.891 - FDC (current) use of opiate analgesic (ICD-10) Osteoarthritis, 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 - Primary osteoarthritis, unspecified shoulder (ICD-10) Right shoulder pain ?M25.511 - Pain in right shoulder (ICD-10) Lumbar radiculopathy ?M54.16 - Radiculopathy, lumbar region (ICD-10) Abdominal pain ?R10.9 - Unspecified abdominal pain (ICD-10) Nausea & vomiting ?R11.2 - Nausea with vomiting, unspecified (ICD-10) Esophagitis ?K20.90 - Esophagitis, unspecified without bleeding (ICD-10) Muscle spasm ?M62.838 - Other muscle spasm (ICD-10) Lumbar stenosis ?M48.061 - Spinal stenosis, lumbar region without neurogenic claudication (ICD-10) Retraction of blood clot ?I74.9 - Embolism and thrombosis of unspecified artery (ICD-10) Inguinal hernia ?K40.90 - Unilateral inguinal hernia, without obstruction or gangrene, not specified as recurrent (ICD-10) Presence of Watchman left atrial appendage closure device ?Z95.818 - Presence of other cardiac implants and grafts (ICD-10) Low back pain ?M54.50 - Low back pain, unspecified (ICD-10) Rheumatoid arthritis ?M06.9 - Rheumatoid arthritis, unspecified (ICD-10) Osteoarthritis ?M19.90 - Unspecified osteoarthritis, unspecified site (ICD-10) Gout ?M10.9 - Gout, unspecified (ICD-10) DVT (deep venous thrombosis) ?I82.409 - Acute embolism and thrombosis of unspecified deep veins of unspecified lower extremity (ICD-10) Hearing deficit ?H91.90 - Unspecified hearing loss, unspecified ear (ICD-10) IBS (irritable bowel syndrome) ?K58.9 - Irritable bowel syndrome without diarrhea (ICD-10) Acid reflux ?K21.9 - Gastro-esophageal reflux disease without esophagitis (ICD-10) Hypothyroid ?E03.9 - Hypothyroidism, unspecified (ICD-10) Diabetes 1.5, managed as type 2 ?E13.9 - Other specified diabetes mellitus without complications (ICD-10) Kidney stone ?N20.0 - Calculus of kidney (ICD-10) Prostate cancer ?C61 - Malignant neoplasm of prostate (ICD-10) CPAP (continuous positive airway pressure) dependence ?Z99.89 - Dependence on other enabling machines and devices (ICD-10) Sleep apnea ?G47.30 - Sleep apnea, unspecified (ICD-10) Hypercholesterolemia ?E78.00 - Pure hypercholesterolemia, unspecified (ICD-10) Surgical History H/O transurethral resection of bladder tumor (TURBT) ?Z98.890 - Other specified postprocedural states (ICD-10) ?Z86.03 - Personal history of neoplasm of uncertain behavior (ICD-10) H/O arthroscopy of knee ?Z98.890 - Other specified postprocedural states (ICD-10) S/P tonsillectomy and adenoidectomy ?Z90.89 - Acquired absence of other organs (ICD-10) Previous back surgery ?Z98.890 - Other specified postprocedural states (ICD-10) H/O neck surgery ?Z98.890 - Other specified postprocedural states (ICD-10) Family History Other Family history of diabetes mellitus Social History (Updated 08/18/24 @ 12:38 by Hedy Farrar) Within the past year, how often did you have a drink containing alcohol: never Within the past year, how often did you have six or more drinks on one occasion: never Score interpretation: A score less than 4 is consistent with normal alcohol consumption. Smoking status: Never smoker Second hand tobacco smoke exposure: No Non-prescribed substance use: denies use Previous occupational history: retired Known occupational exposures/hazards: No Highest level of school completed/degree received: high school graduate Are you now , , , , never or living with a partner: In a typical week, how many times do you talk on the telephone with family, friends, or neighbors: 3 or more times per week How often do you get together with friends or relatives: 3 or more times per week How often do you attend mosque or mu-ism services: never Do you belong to any clubs or organizations such as mosque groups unions, [employer] or athletic groups, or school groups: no Total score: 1 Score interpretation: A score of less than or equal to 1 indicates the most socially isolated. Little interest or pleasure in doing things: not at all Feeling down, depressed, or hopeless: not at all Feel stressed/tense/nervous/anxious/difficulty sleeping: not at all Do you think of yourself as: straight/heterosexual Gender Identity: male Meds Home Medications and Allergies Home Medications ?Medication ?Instructions ?Recorded ?Confirmed ?Type allopurinol 300 mg tablet 300 mg PO DAILY 12/27/22 08/17/24 History levothyroxine 50 mcg tablet 50 mcg PO DAILY 12/27/22 08/17/24 History diltiazem HCl 180 mg 180 mg PO DAILY 01/09/23 08/17/24 History capsule,extended release 24 hr famotidine 20 mg tablet 20 mg PO DAILY 01/09/23 08/17/24 History fluticasone propionate 50 2 spray intranasal DAILY PRN nasal 01/09/23 08/17/24 History mcg/actuation nasal congestion spray,suspension (Flonase Allergy Relief) magnesium aspart,citrate,oxide 400 mg PO BEDTIME 01/09/23 08/17/24 History metoprolol tartrate 25 mg tablet 25 mg PO BID 01/09/23 08/17/24 History psyllium husk 0.4 gram capsule 0.4 g PO DAILY 01/09/23 08/17/24 History (Metamucil) tamsulosin 0.4 mg capsule (Flomax) 0.4 mg PO DAILY 01/09/23 08/17/24 History atorvastatin 20 mg tablet 20 mg PO DAILY 01/10/23 08/17/24 History baclofen 10 mg tablet 10 mg PO BID muscle spasm 01/10/23 08/17/24 History Lactobacillus rhamnosus GG 10 1 cap PO DAILY 07/18/23 08/17/24 History billion cell capsule (Culturelle) glipizide 5 mg tablet 5 mg PO BID 07/18/23 08/17/24 History pregabalin 100 mg capsule (Lyrica) 100 mg PO TID 5 days #15 caps 08/25/23 08/17/24 Rx acetaminophen 500 mg tablet 1,000 mg PO Q8H PRN pain 09/13/23 08/17/24 History (Tylenol Extra Strength) furosemide 20 mg tablet 40 mg (2 x 20 mg) PO DAILY #0 tabs 09/16/23 08/17/24 Rx loperamide 2 mg tablet 2 mg PO Q6H PRN loose stool 05/22/24 08/17/24 History metoclopramide HCl 5 mg tablet 5 mg PO Q6H PRN nausea and vomiting 05/22/24 08/17/24 History ondansetron HCl 8 mg tablet 8 mg PO Q8H PRN nausea and vomiting 05/22/24 08/17/24 History donepezil 10 mg tablet 10 mg PO DAILY 05/23/24 08/17/24 History sennosides 8.6 mg-docusate sodium 1 tab-cap PO DAILY 05/23/24 08/17/24 History 50 mg tablet (Stimulant Laxative Plus) morphine 30 mg tablet,extended 15 mg (1/2 x 30 mg) PO Q12H #0 tabs 05/28/24 08/17/24 Rx release aspirin 325 mg tablet 325 mg PO DAILY 08/17/24 08/17/24 History losartan 100 mg tablet 100 mg PO DAILY 08/17/24 08/17/24 History oxybutynin chloride 5 mg tablet 5 mg PO Q8H 08/17/24 08/17/24 History phenazopyridine 100 mg tablet 100 mg PO .q12 08/17/24 08/17/24 History (Pyridium) ropinirole 0.5 mg tablet 0.5 mg PO DAILY 08/17/24 08/17/24 History Allergies Allergy/AdvReac Type Severity Reaction Status Date / Time tizanidine (From Zanaflex) Allergy Unknown Unknown Verified 08/18/24 07:25 acetaminophen (From Percocet) AdvReac Mild Vomiting Verified 08/18/24 07:25 cyclobenzaprine (From AdvReac Mild Hallucinati Verified 08/18/24 07:25 Flexeril) ng oxycodone (From Percocet) AdvReac Mild Vomiting Verified 08/18/24 07:25 tramadol AdvReac Mild Vomiting Verified 08/18/24 07:25 Exam Constitutional Vital Signs, click to edit/add: Last Vital Signs Temp 98.9 F 08/18/24 12:19 Pulse 98 H 08/18/24 12:19 Resp 16 08/18/24 12:19 BP 146/84 H 08/18/24 12:19 Pulse Ox 92 L 08/18/24 12:19 O2 Del Method Room Air 08/18/24 12:19 Documenting provider has reviewed patient's vital signs: yes Common normals: no apparent distress Chest Common normals: inspection of chest normal Respiratory Common normals: normal respiratory effort, no retractions and clear to auscultation bilaterally Cardio Common normals: regular rate and regular rhythm GI Common normals: Normal to inspection, nondistended, normoactive bowel sounds present, soft to palpation and non-tender Results Labs Labs: Short CBC 08/18/24 Range/Units 10:18 WBC 6.5 (4.0-11.0) 10^3/uL Hgb 10.3 L (14.0-18.0) g/dL Hct 31.6 L (42.0-54.0) % Plt Count 157 (150-450) 10^3/uL BMP 08/18/24 10:18 Sodium 136 Potassium 3.6 Chloride 101 Carbon Dioxide 27.0 BUN 12.0 Creatinine 0.95 Glucose 328 H Calcium 8.4 L Liver Function 08/18/24 Range/Units 10:18 Total Bilirubin 0.5 (0.2-1.0) mg/dL AST 10 L (15-37) U/L ALT 12 L (16-63) U/L Alkaline Phosphatase 101 (46-116) U/L Albumin 2.4 L (3.4-5.0) g/dL ABG ABG results: 08/17/24 11:29 VBG pH 7.369 VBG pCO2 47.5 Assessment and Plan Assessment and Plan (1) Pneumoperitoneum: Plan Admission findings: Patient with normal white blood cell count but with significant left shift, mild tachycardia, findings on CT scan recommending pneumoperoneum-concerning for gas-forming organism Pneumoperitoneum-recent procedure about 10 days ago, patient started on daptomycin in ER, will add Alex, working on arranging transfer, repeat labs Acute UTI due to chronic indwelling Dodge catheter-antibiotics as outlined above Hyponatremia-IV fluids Admission status: Patient replaced inpatient status due to pneumoperoneum, medically necessary treatment will span 2 midnights. Inpatient status
[2024-08-18] MEDS: PIPERACILLIN SODIUM/TAZOBACTAM 3.375 GM in 0.9 % SODIUM CHLORIDE 50 ML IV (13:09)
[2024-08-18] MEDS: 0.9 % SODIUM CHLORIDE 1,000 ML 125 ML IV (13:09)
--- NOTE | 2024-08-18 14:07 | CM.NOTE ---
Important Message From Medicare discussed with pt and son, pt and son verbalizes understanding and signs paper. Original given to pt and copy placed on pt's chart.
[2024-08-18] MEDS: METOPROLOL TARTRATE 25 MG TABLET PO (15:33)
[2024-08-18] MEDS: DILTIAZEM HCL 180 MG CAP.ER.24H PO (15:33)
[2024-08-18] MEDS: OXYBUTYNIN chloride 5 MG TABLET PO (15:34)
[2024-08-18 16:10] LABS: Creatine Kinase 300 U/L (39-308); Creatine Kinase MB 1.71 ng/mL (<=3.60); Myoglobin 81 ng/mL (16-96); Troponin I High Sensitivity 9.3 pg/mL (4.0-76.1)
== END 2024-08-18 16:38 | disposition short-term general hospital (02) | DRG 394 ==
LOC: ER 19:25 → MS 08-18 11:07
PROVIDERS: Emergency Medicine; Admitting Provider Family Medicine; Emergency Provider Emergency Medicine; Visit Provider Family Medicine
DX: K66.8 Other specified disorders of peritoneum (principal); E87.1 Hypo-osmolality and hyponatremia; I50.32 Chronic diastolic (congestive) heart failure; N39.0 Urinary tract infection, site not specified; T83.511A Infection and inflammatory reaction due to indwelling urethral catheter, initial encounter; E03.9 Hypothyroidism, unspecified; Z66 Do not resuscitate; Z87.440 Personal history of urinary (tract) infections; E11.9 Type 2 diabetes mellitus without complications; I48.91 Unspecified atrial fibrillation; F41.8 Other specified anxiety disorders; Z95.818 Presence of other cardiac implants and grafts; M06.9 Rheumatoid arthritis, unspecified; Z86.718 Personal history of other venous thrombosis and embolism; C61 Malignant neoplasm of prostate; E78.00 Pure hypercholesterolemia, unspecified; G47.30 Sleep apnea, unspecified; Z79.82 Long term (current) use of aspirin; Z79.84 Long term (current) use of oral hypoglycemic drugs; Z79.899 Other long term (current) drug therapy; Z98.890 Other specified postprocedural states; E11.22 Type 2 diabetes mellitus with diabetic chronic kidney disease; N18.30 Chronic kidney disease, stage 3 unspecified; K21.00 Gastro-esophageal reflux disease with esophagitis, without bleeding
CPT/HCPCS: 36415; 74176; 80053; 81001; 82550; 82553; 82800; 82948; 83605; 83690; 83735; 83874; 83880; 84484; 85025; 85610; 85730; 86140; 87040; 87086; 93005; 96361; 96365; 99285; J0878; J2543